=== PATIENT | male | born 1990 | race Caucasian/White ===

== ENCOUNTER → 2020-10-19 10:55 | Outpatient (BNVA) | payer OTHER, SELFPAY | PROVIDERS: Family Provider Nurse Practitioner; PCP Nurse Practitioner; Visit Provider Nurse Practitioner | DX: S49.90XA Unspecified injury of shoulder and upper arm, unspecified arm, initial encounter (principal); X58.XXXA Exposure to other specified factors, initial encounter | CPT/HCPCS: 73030 ==

== ENCOUNTER → 2021-12-01 09:11 | Outpatient (BNVA) | payer OTHER, SELFPAY | PROVIDERS: Family Provider Nurse Practitioner; PCP Nurse Practitioner; Visit Provider Nurse Practitioner Family | DX: Z20.822 Contact with and (suspected) exposure to COVID-19 (principal); I10 Essential (primary) hypertension | CPT/HCPCS: 87635 ==

== ENCOUNTER 2022-03-26 11:56 | Emergency (ER) | payer MEDICAID, SELFPAY ==
[2022-03-26 12:31] VITALS: BP 148/99; PULSE 104; RESP 16; TEMP 36.6; O2SAT 98
--- NOTE | 2022-03-26 12:38 | ED_ITS ---
HPI - Back Pain/Injury General: Chief Complaint: Back Pain/Injury Stated Complaint: Lower Back Pain Time Seen by Provider: 03/26/22 12:37 Source: patient Mode of arrival: ambulatory Limitations: no limitations History of Present Illness: Patient is a 31-year-old male who presents to ED today with a complaint of lower back pain over the past 3 days after he states he was lifting something heavy and was using improper technique. Patient has a history of chronic lower back pains and has underwent two previous surgeries in his 20s. Patient states his pain currently is radiating down his left buttock and down into his left lower extremity. Patient denies saddle anesthesia. He is not having any complaints of urinary or bowel retention/incontinence. MD elicited complaint: back pain Pertinent past history: prior back pain Onset (ago): day(s) Timing: constant Severity: severe Pain scale (0-10): 10 Similar Symptoms Previously: Yes Quality: sharp and aching Location: lumbar spine and left lower back Radiation: left leg below the knee Exacerbating factors: movement, walking and lifting Relieving factors: none Context: while lifting Associated symptoms: Reports no associated symptoms; Deny abdominal pain, chills, dysuria, fatigue, fever(s) or hematuria Work related injury: No Review of Systems Const: Denies: fever(s), chills, body aches, fatigue or malaise Card: Denies: chest pain Resp: Denies: dyspnea GI: Denies: abdominal pain : Denies: flank pain, dysuria or hematuria Musc: Reports: back pain; Denies: neck pain, extremity pain, extremity swelling, joint pain, joint swelling or joint redness Skin/Breast: Denies: rash Neuro: Denies: headache(s), numbness in extremities or sensory changes [facility] ED PFSH: Medical History Psychiatric care Type 1 diabetes Family History Other Hypertension Social History Smoking and tobacco status: current every day smoker Current occupation: [employer] Physical Exam Const: COMMON NORMALS: no acute distress, patient oriented x3, no limitations and alert GENERAL APPEARANCE: cooperative ORIENTATION/CONSCIOUSNESS: Yes awake, Yes oriented to person, Yes oriented to place and Yes oriented to time : COMMON NORMALS: Yes no CVA tenderness BLADDER/KIDNEY EXAM: Yes no CVA tenderness Back/Pelvis: COMMON NORMALS: no CVA tenderness THORACIC SPINE/UPPER BACK: Yes normal to inspection, Yes thoracic ROM normal, No thoracic spinal tenderness, No paraspinal muscle tenderness and No paraspinal muscle spasm LUMBAR SPINE/LOWER BACK: Yes normal to inspection, Yes ROM limited, No lumbar spinal tenderness, Yes paraspinal muscle tenderness Lumbar paraspinal muscle tenderness: left and No paraspinal muscle spasm PELVIS: Yes buttock abnormal Buttock abnormal laterality: left Left buttock abnormal details: tenderness and Yes sciatic notch tenderness SACROILIAC JOINTS: Yes SI joint(s) abnormal SI joint details: tender to palpation (left) SACRUM: no tenderness COCCYX: no tenderness Extremity: COMMON NORMALS: normal to inspection, full ROM, capillary refill normal, no joint enlargement, no clubbing, cyanosis or edema, no calf tenderness and no pedal edema GENERAL: Yes normal exam except as noted Neuro: COMMON NORMALS: patient oriented x3, moves all extremities, no focal motor deficits, no sensory deficits noted and gait normal SENSORIUM/ORIENTATION: Yes alert, Yes oriented to person, Yes oriented to place and Yes oriented to time MOTOR EXAM: 5/5 motor strength present throughout Skin: COMMON NORMALS: no rashes or lesions noted GENERAL SKIN EXAM: no rashes or lesions noted Course Vital Signs: Vital signs: Vital Signs Temperature 97.8 F 03/26/22 12:31 Pulse Rate 104 H 03/26/22 12:31 Respiratory Rate 16 03/26/22 12:31 Blood Pressure 148/99 03/26/22 12:31 Pulse Oximetry 98 03/26/22 12:31 MDM - Back Pain/Injury Medical Decision Making Patient states he does feel much better after IM medications given here. We will place him on anti-inflammatories, muscle relaxers, steroids. Recommend he follow-up with primary care for further evaluation of his lower back pain if it does not begin to improve over the next week or so. Return to ED precautions verbally discussed with patient. Labs Radiology Impressions Lumbar Spine X-Ray 03/26/22 13:34 IMPRESSION: No acute findings. Moderate multilevel endplate degenerative changes and degenerative disc disease centered in the mid and lower lumbar spine. Discharge Plan Discharge Patient Disposition: Home Clinical Impression: Lower back injury Qualifiers: Encounter type: initial encounter Qualified Code(s): S39.92XA - Unspecified injury of lower back, initial encounter Condition: Stable Prescriptions: New methocarbamol 500 mg tablet 1,000 mg PO Q8H Qty: 30 0RF prednisone 10 mg tablet 60 mg PO DAILY 5 Days Qty: 30 0RF diclofenac sodium 50 mg tablet,delayed release (DR/EC) 50 mg PO Q12H PRN (Reason: pain) Qty: 20 0RF No Action levemi INJECTION 0RF Rx Instructions: 20 units BID novol INJECTION 0RF Rx Instructions: 6 units TID (DME) Dexcom G6 Timber Spotter Misc See Rx Instructions .Route Qty: 1 0RF Rx Instructions: Check BS 4-6 times a day. (DME) Dexcom G6 Sensor Device See Rx Instructions .Route Qty: 3 3RF Rx Instructions: Change every 10 days. (DME) Dexcom G6 Transmitter Device See Rx Instructions .Route Qty: 1 3RF Rx Instructions: Change every 90 days. (DME) Omnipod 5 G6 Intro Kit (Gen 5) Cartridge See Rx Instructions .ROUTE Qty: 1 0RF Rx Instructions: As directed (DME) Omnipod 5 G6 Pods (Gen 5) Cartridge See Rx Instructions .ROUTE Qty: 5 3RF Rx Instructions: As directed Discharge Orders: Discharge ED (Routine); Ordered 03/26/22 Ordered By: Mel Baltazar Referrals: Jyoti Shirley VINYL WELDER AND FABRICATOR [Primary Care Provider] - Coding Level of Care Code ED Scientific Photographer for Bessie Gaxiola
--- NOTE | 2022-03-26 13:34 | XRR_ITS ---
PROCEDURE INFORMATION: Exam: XR Lumbosacral Spine Exam date and time: 03/26/2022 1:59 PM Age: 31 years old Clinical indication: Pain and injury or trauma; Other: Lifting; Sprain or strain, lumbar ligaments; Low back pain; Prior surgery; Surgery type: Prev back surgery; Additional info: Back pain/injury TECHNIQUE: Imaging protocol: XR of the lumbosacral spine. Views: 2 or 3 views. COMPARISON: CR Lumbar Spine 1v PORT [id number] 12/29/2015 8:15 AM FINDINGS: Bones/joints: No acute fracture. Normal alignment. Moderate multilevel endplate degenerative changes and degenerative disc disease involving the L3-S1 segment. Soft tissues: Unremarkable. XR/XR lumbar spine 2-3V* [id number] IMPRESSION: No acute findings. Moderate multilevel endplate degenerative changes and degenerative disc disease centered in the mid and lower lumbar spine.
[2022-03-26] MEDS: dexamethasone 10 mg/mL INJ 8 MG IM (14:00)
[2022-03-26] MEDS: orphenadrine 30 mg/mL Inj 2 mL 60 MG IM (14:00)
[2022-03-26] MEDS: ketorolac 60 mg/2 mL INJ IM (14:00)
[2022-03-26 15:18] VITALS: BP 176/118; PULSE 101; O2SAT 96
== END 2022-03-26 15:15 | disposition home or self-care (01) ==
PROVIDERS: Emergency Provider Physician Assistant; PCP Nurse Practitioner
DX: S39.92XA Unspecified injury of lower back, initial encounter (principal); X50.0XXA Overexertion from strenuous movement or load, initial encounter
CPT/HCPCS: 72100; 96372; 99284; J1100; J1885; J2360

== ENCOUNTER 2022-06-26 09:18 | Emergency (ER) | payer MEDICAID, SELFPAY ==
[2022-06-26 09:22] VITALS: BP 152/102; PULSE 96; RESP 18; TEMP 36.4; O2SAT 97
--- NOTE | 2022-06-26 09:48 | ED.C_ITS ---
Documented by User: ZURDO Santos 06/26/22 11:04 HPI - Psych General: Chief Complaint: Psychiatric Symptoms Stated Complaint: Back pain Time Seen by Provider: 06/26/22 09:24 History of Present Illness: Patient is a 31-year-old male comes to the ED via EMS with back pain after fall. Patient has chronic lower back problems and is set up to see an orthospine specialist in [place] in the next month. Injury occurred this morning while he was getting out of bathtub. He states that he slipped and fell backwards hitting his lower back on tub. Denies any head trauma or loss of consciousness. He states his pain is a 7 out of 10 in his lower back and it radiates down to his left leg. Denies any bladder or bowel incontinence, pelvic anesthesia or any weakness to lower extremities. Patient screened positive for SI during triage. Patient says he is not currently suicidal at all and is having no thoughts of suicide. He states that in triage they asked if he has ever had thoughts of suicide and he answered yes because in the past he has had thoughts but says he is not having any recent or current thoughts of suicide or plan for suicide. Associated symptoms: Deny suicidal ideation Review of Systems Const: Denies: fever(s), chills or fatigue Eyes: Denies: change in vision or eye discomfort ENMT: Denies: throat pain, odynophagia, nasal discharge or nasal congestion Card: Denies: chest pain, palpitations, edema, swelling of feet/ankles, dyspnea on exertion or orthopnea Resp: Denies: dyspnea, productive cough or non-productive cough GI: Denies: abdominal pain, nausea, vomiting, diarrhea, constipation or hematochezia : Denies: flank pain, difficulty urinating, dysuria or hematuria Musc: Reports: back pain; Denies: neck pain or extremity swelling Skin/Breast: Denies: rash or new lesions Neuro: Denies: headache(s), numbness in extremities or weakness in extremities Psych: Denies: suicidal ideation PFS ED PFSH: Medical History No pertinent family history Psychiatric care Type 1 diabetes Family History Other Hypertension Social History Smoking and tobacco status: current every day smoker Current occupation: [employer] Physical Exam Const: COMMON NORMALS: no acute distress, patient oriented x3 and alert HENMT: COMMON NORMALS: normocephalic HEAD & SCALP: normocephalic MOUTH: Normal oral and palatal mucosa present THROAT: posterior oropharynx normal and uvula midline Neck/C-Spine: COMMON NORMALS: supple GENERAL: Yes normal visual inspection Resp: COMMON NORMALS: normal respiratory effort, No retractions, No use of accessory muscles and clear to auscultation bilaterally AUSCULTATION: clear to auscultation bilaterally Cardio: COMMON NORMALS: regular rate, regular rhythm, S1 normal heart sound present, S2 normal heart sound present, No gallops present (Cardio), No clicks present (Cardio), No murmurs present (Cardio) and Peripheral pulses 2+ throughout RATE: regular rate RHYTHM: regular rhythm HEART SOUNDS: S1 normal heart sound present and S2 normal heart sound present PERIPHERAL PULSES: Peripheral pulses 2+ throughout GI: COMMON NORMALS: Normal to inspection, nondistended, normoactive bowel sounds present, Soft to palpation, non-tender and no masses PALPATION: Yes Soft to palpation : COMMON NORMALS: Yes no CVA tenderness BLADDER/KIDNEY EXAM: Yes no CVA tenderness Back/Pelvis: COMMON NORMALS: no CVA tenderness LUMBAR SPINE/LOWER BACK: Yes lumbar ROM normal, No lumbar spinal tenderness and Yes paraspinal muscle tenderness Lumbar paraspinal muscle tenderness: bilateral Bilateral lumbar paraspinal muscle tenderness: L3, L4 and L5 Extremity: COMMON NORMALS: normal to inspection Neuro: COMMON NORMALS: patient oriented x3 SENSORIUM/ORIENTATION: Yes alert GAIT: Yes Normal gait present Skin: GENERAL SKIN EXAM: dry skin Course ED course: Patient screened positive for SI during triage. Patient says he is not currently suicidal at all and is having no thoughts of suicide. He states that in triage they asked if he has ever had thoughts of suicide and he answered yes because in the past he has had thoughts but says he is not having any recent/current thoughts of suicide or plan for suicide. I reiterated with patient that we can help him if he is having any suicidal thoughts and he restated he is not having any suicidal thoughts or plan and is only here in the ED due to his back pain from fall. Vital Signs: Vital signs: Vital Signs Temperature 97.6 F 06/26/22 09:22 Pulse Rate 96 06/26/22 09:22 Respiratory Rate 18 06/26/22 09:22 Blood Pressure 152/102 06/26/22 09:22 Pulse Oximetry 97 06/26/22 09:22 [facility] - Psych Medical Decision Making Patient is a 31-year-old male comes to the ED with lower back pain after fall. Denies head trauma or loss of consciousness. Patient does endorse having chronic lower back pain and is scheduled to see an orthospine specialist in [place] in about a month. Pain radiates down into left leg. Denies any cauda equina symptoms. Vitals are stable. Patient had some paraspinal lumbar muscle tenderness bilaterally. Rest of exam is benign and patient appears in no acute distress. X-ray of lumbar spine showed no acute fractures or findings but noted some osteoarthritis. He was given a dose of Toradol, steroid and muscle relaxer here in the ED. Patient was stable for discharge home and diagnosed with lumbar radiculopathy and lower back injury due to fall. He was sent home with a prescription for Celebrex, muscle relaxer and short course of steroids. Told to monitor his blood sugars closely while taking steroids. Return ED precautions given. Patient understood and agreed with plan. Review course section of note to get further details on SI screening. Chart reviewed and patient discussed with midlevel. Agree with assessment and plan. Patient expressed to the nurse during screening that he has considered suicide in the past. In discussing with him he was answering the question honestly in respect to the span of essentially his entire adult life. He admits that he has considered in the past but he is never actually acted out on it nor does he have any intent at this time. He denies any suicidal thoughts or ideations recently and certainly not at this time. After interviewing the patient do not feel as he is a threat to himself or others he was just answering the questions honestly and has no current suicidal thoughts. Encouraged to return if he has any further problems. At this point he can be discharged by midlevel. Lab Data Radiology Impressions Lumbar Spine X-Ray 06/26/22 09:52 IMPRESSION: 1. Osteoarthritis 2. Otherwise No acute findings. Discharge Plan Discharge Patient Disposition: Home Clinical Impression: Lumbar radiculopathy, Back pain due to injury Condition: Stable Prescriptions: New Celebrex 100 mg capsule 100 mg PO BID PRN (Reason: pain) Qty: 20 0RF prednisone 20 mg tablet 20 mg PO BID 3 Days Qty: 6 0RF cyclobenzaprine 10 mg tablet 10 mg PO BID PRN (Reason: muscle spasm) Qty: 20 0RF No Action insulin aspart U-100 [Novolog U-100 Insulin aspart] 100 unit/mL solution 80 unit continuous IV infusion DAILY 90 Days Qty: 90 3RF (DME) Dexcom G6 Machine Setter And Repairer Misc See Rx Instructions .Route Qty: 1 0RF Rx Instructions: Check BS 4-6 times a day. (DME) Dexcom G6 Sensor Device See Rx Instructions .Route Qty: 3 3RF Rx Instructions: Change every 10 days. (DME) Dexcom G6 Transmitter Device See Rx Instructions .Route Qty: 1 3RF Rx Instructions: Change every 90 days. insulin aspart U-100 [Novolog Flexpen U-100 Insulin] 100 unit/mL (3 mL) insulin pen 6 unit SUBCUT TID Qty: 15 3RF Rx Instructions: Inject 6 units three times a day 15 minutes before meals. Levemir FlexTouch U-100 Insuln 100 unit/mL (3 mL) insulin pen 20 unit SUBCUT BID Qty: 30 3RF Rx Instructions: Inject 20 units twice a day. (DME) Omnipod 5 G6 Intro Kit (Gen 5) Cartridge See Rx Instructions .Route Qty: 1 0RF Rx Instructions: As directed (DME) Omnipod 5 G6 Pods (Gen 5) Cartridge See Rx Instructions .Route Qty: 5 3RF Rx Instructions: As directed methocarbamol 500 mg tablet 1,000 mg PO Q8H Qty: 30 0RF diclofenac sodium 50 mg tablet,delayed release (DR/EC) 50 mg PO Q12H PRN (Reason: pain) Qty: 20 0RF Discharge Orders: Discharge ED (Routine); Ordered 06/26/22 Ordered By: Jose Madden Referrals: Jyoti hSirley APN [Primary Care Provider] - Discharge Diet: Diabetic Discharge Activity: Increase activity as tolerated Patient Instructions: Lumbar Radiculopathy (ED) Activity Restrictions/Additional Instructions: Follow-up with the orthospine specialist you are scheduled to see in [place] next month. Take medications as prescribed. I am sending you out on a short course of prednisone which is a steroid and it can increase your blood sugars so monitor them closely while taking prednisone. You were given a steroid shot today here in the ED so you do not need to start taking the prednisone prescription until tomorrow. Rest, limit lifting and apply cold pack on lower back to help with symptoms. Return to the ER or your medical provider if condition worsens. Please read and understand discharge instructions. Thank you for choosing [facility] for your healthcare needs today. Please realize this is an emergency room and that we are providing you with a medical screening exam and this may not be complete and all inclusive of all the testing and or work up that you may need to determine your ailment or severity of your illness. It is very important that you follow up as instructed or that you return to the Emergency Department should you have concerns or if your condition changes or worsens in any way. 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 Agree with assessment and plan. Patient expressed to the nurse during screening that he has considered suicide in the past. In discussing with him he was answering the question honestly in respect to the span of essentially his entire adult life. He admits that he has considered in the past but he is never actually acted out on it nor does he have any intent at this time. He denies any suicidal thoughts or ideations recently and certainly not at this time. After interviewing the patient do not feel as he is a threat to himself or others he was just answering the questions honestly and has no current suicidal thoughts. Encouraged to return if he has any further problems. At this point he can be discharged by midlevel. Medical Records I reviewed the patient's medical records. Lab Data I reviewed the patient's lab results. Radiology Impressions Lumbar Spine X-Ray 06/26/22 09:52 IMPRESSION: 1. Osteoarthritis 2. Otherwise No acute findings. Discharge Plan Discharge Patient Disposition: Home Clinical Impression: Lumbar radiculopathy, Back pain due to injury Condition: Stable Prescriptions: New Celebrex 100 mg capsule 100 mg PO BID PRN (Reason: pain) Qty: 20 0RF prednisone 20 mg tablet 20 mg PO BID 3 Days Qty: 6 0RF cyclobenzaprine 10 mg tablet 10 mg PO BID PRN (Reason: muscle spasm) Qty: 20 0RF No Action insulin aspart U-100 [Novolog U-100 Insulin aspart] 100 unit/mL solution 80 unit continuous IV infusion DAILY 90 Days Qty: 90 3RF (DME) Dexcom G6 Machine Setter And Repairer Misc See Rx Instructions .Route Qty: 1 0RF Rx Instructions: Check BS 4-6 times a day. (DME) Dexcom G6 Sensor Device See Rx Instructions .Route Qty: 3 3RF Rx Instructions: Change every 10 days. (DME) Dexcom G6 Transmitter Device See Rx Instructions .Route Qty: 1 3RF Rx Instructions: Change every 90 days. insulin aspart U-100 [Novolog Flexpen U-100 Insulin] 100 unit/mL (3 mL) insulin pen 6 unit SUBCUT TID Qty: 15 3RF Rx Instructions: Inject 6 units three times a day 15 minutes before meals. Levemir FlexTouch U-100 Insuln 100 unit/mL (3 mL) insulin pen 20 unit SUBCUT BID Qty: 30 3RF Rx Instructions: Inject 20 units twice a day. (DME) Omnipod 5 G6 Intro Kit (Gen 5) Cartridge See Rx Instructions .Route Qty: 1 0RF Rx Instructions: As directed (DME) Omnipod 5 G6 Pods (Gen 5) Cartridge See Rx Instructions .Route Qty: 5 3RF Rx Instructions: As directed methocarbamol 500 mg tablet 1,000 mg PO Q8H Qty: 30 0RF diclofenac sodium 50 mg tablet,delayed release (DR/EC) 50 mg PO Q12H PRN (Reason: pain) Qty: 20 0RF Discharge Orders: Discharge ED (Routine); Ordered 06/26/22 Ordered By: Jose Madden Referrals: Jyoti Shirley TECHNICAL SUPPORT AGENT [Primary Care Provider] - Discharge Diet: Diabetic Discharge Activity: Increase activity as tolerated Patient Instructions: Lumbar Radiculopathy (ED) Activity Restrictions/Additional Instructions: Follow-up with the orthospine specialist you are scheduled to see in [place] next month. Take medications as prescribed. I am sending you out on a short course of prednisone which is a steroid and it can increase your blood sugars so monitor them closely while taking prednisone. You were given a steroid shot today here in the ED so you do not need to start taking the prednisone prescription until tomorrow. Rest, limit lifting and apply cold pack on lower back to help with symptoms. Return to the ER or your medical provider if condition worsens. Please read and understand discharge instructions. Thank you for choosing [facility] for your healthcare needs today. Please realize this is an emergency room and that we are providing you with a medical screening exam and this may not be complete and all inclusive of all the testing and or work up that you may need to determine your ailment or severity of your illness. It is very important that you follow up as instructed or that you return to the Emergency Department should you have concerns or if your condition changes or worsens in any way. Coding Level of Care Code ED Director Learning for Bessie Gaxiola Exam Comprehensive
--- NOTE | 2022-06-26 09:52 | XRR_ITS ---
PROCEDURE INFORMATION: Exam: XR Lumbosacral Spine Exam date and time: 06/26/2022 9:55 AM Age: 31 years old Clinical indication: Injury or trauma; Fall; Blunt trauma (contusions or hematomas); Additional info: Fall in bathtub. Low back pain TECHNIQUE: Imaging protocol: Radiologic exam of the lumbosacral spine. Views: 2 or 3 views. COMPARISON: CR XR lumbar spine 2-3V* [id number] 03/26/2022 1:59 PM FINDINGS: Bones/joints: There is intervertebral disc space narrowing at C4-C5 and 3 4 intervertebral disc space levels consistent with osteoarthritis. No acute bony abnormalities seen. No acute fracture. Normal alignment. Soft tissues: Unremarkable. XR/XR lumbar spine 2-3V* [id number] IMPRESSION: 1. Osteoarthritis 2. Otherwise No acute findings.
[2022-06-26] MEDS: ketorolac 30 mg/mL INJ IVP (10:37)
[2022-06-26] MEDS: orphenadrine 30 mg/mL Inj 2 mL 60 MG IVP (10:37)
== END 2022-06-26 10:50 | disposition home or self-care (01) ==
PROVIDERS: Emergency Provider Family Medicine; PCP Nurse Practitioner
DX: M54.16 Radiculopathy, lumbar region (principal); S39.92XA Unspecified injury of lower back, initial encounter; Z79.4 Long term (current) use of insulin; E10.9 Type 1 diabetes mellitus without complications; F17.210 Nicotine dependence, cigarettes, uncomplicated; W18.2XXA Fall in (into) shower or empty bathtub, initial encounter
CPT/HCPCS: 72100; 96374; 96375; 99284; J1885; J2360; J2930

== ENCOUNTER 2022-07-25 09:34 | Emergency (ER) | payer MEDICAID, SELFPAY ==
[2022-07-25 10:15] VITALS: BP 158/93; PULSE 91; RESP 18; TEMP 36.6; O2SAT 98; BMI 31.1
[2022-07-25 10:33] VITALS: BP 158/93; PULSE 91; RESP 18; TEMP 36.6; O2SAT 98
--- NOTE | 2022-07-25 10:56 | ED_ITS ---
HPI - Back Pain/Injury General: Chief Complaint: Back Pain/Injury Stated Complaint: back pain Time Seen by Provider: 07/25/22 10:21 History of Present Illness: Patient is a 31-year-old male who comes to the ED with acute on chronic lower back pain. Past medical history of type I diabetes. Patient says he was referred to an orthospine specialist in [facility] but was unable to make it to appointment because he could not get a ride. He would like a referral to a local orthospine specialist for follow-up. The has been seen here in the ED back on June 26 for same complaint. He is also been to urgent care as well within the last month for same complaint. Back pain is located in the lumbar region and he rates it currently an 8 out of 10. Pain radiates down his left leg. Denies any recent falls, traumas or injuries to cause acute pain. Denies any cauda equina symptoms. Associated symptoms: Deny abdominal pain, chills, dysuria, fatigue, fever(s), hematuria, nausea or vomiting Review of Systems Const: Denies: fever(s), chills or fatigue Eyes: Denies: change in vision or eye discomfort ENMT: Denies: throat pain, odynophagia, nasal discharge or nasal congestion Card: Denies: chest pain, palpitations, edema, swelling of feet/ankles, dyspnea on exertion or orthopnea Resp: Denies: dyspnea, productive cough or non-productive cough GI: Denies: abdominal pain, nausea, vomiting, diarrhea, constipation or hematochezia : Denies: flank pain, difficulty urinating, dysuria or hematuria Musc: Reports: back pain; Denies: neck pain or extremity swelling Skin/Breast: Denies: rash or new lesions Neuro: Denies: headache(s), numbness in extremities or weakness in extremities PFSH ED PFSH: Medical History No pertinent family history Type 1 diabetes Family History Other Hypertension Social History Smoking and tobacco status: current every day smoker 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 Physical Exam Const: COMMON NORMALS: patient oriented x3 HENMT: COMMON NORMALS: normocephalic HEAD & SCALP: normocephalic MOUTH: Normal oral and palatal mucosa present THROAT: posterior oropharynx normal and uvula midline Neck/C-Spine: COMMON NORMALS: supple GENERAL: Yes normal visual inspection Resp: COMMON NORMALS: normal respiratory effort, No retractions, No use of accessory muscles and clear to auscultation bilaterally AUSCULTATION: clear to auscultation bilaterally Cardio: COMMON NORMALS: regular rate, regular rhythm, S1 normal heart sound present, S2 normal heart sound present, No gallops present (Cardio), No clicks present (Cardio), No murmurs present (Cardio) and Peripheral pulses 2+ t hroughout RATE: regular rate RHYTHM: regular rhythm HEART SOUNDS: S1 normal heart sound present and S2 normal heart sound present PERIPHERAL PULSES: Peripheral pulses 2+ throughout GI: COMMON NORMALS: Normal to inspection, nondistended, normoactive bowel sounds present, Soft to palpation, non-tender and no masses PALPATION: Yes Soft to palpation : COMMON NORMALS: Yes no CVA tenderness BLADDER/KIDNEY EXAM: Yes no CVA tenderness Back/Pelvis: COMMON NORMALS: no CVA tenderness LUMBAR SPINE/LOWER BACK: Yes paraspinal muscle tenderness Extremity: COMMON NORMALS: normal to inspection Neuro: COMMON NORMALS: patient oriented x3 GAIT: Yes Normal gait present Skin: GENERAL SKIN EXAM: dry skin Course Vital Signs: Vital signs: Vital Signs Temperature 97.8 F 07/25/22 10:33 Pulse Rate 91 07/25/22 10:33 Respiratory Rate 18 07/25/22 10:33 Blood Pressure 158/93 07/25/22 10:33 Pulse Oximetry 98 07/25/22 10:33 Oxygen Delivery Me thod 07/25/22 10:33 MDM - Back Pain/Injury Medical Decision Making Patient is a 31-year-old male comes to the ED with acute on chronic lower back pain. Denies any recent injury or trauma to cause acute pain. Denies cauda equina symptoms. Pain does radiate down into left leg. Vitals are stable. Exam of patient shows some lumbar paraspinal muscle tenderness bilaterally. Rest of exam is benign. I have placed an order with case management for patient be referred to Dr. Alba for further evaluation and management of low back pain. He was given a dose of a muscle relaxer, pain meds and steroid shot here in the ED. He was stable for discharge home and told to follow-up at his scheduled appointment with Dr. Alba. Discharge Plan Discharge Patient Disposition: Home Clinical Impression: Back pain with radiculopathy Condition: Stable Prescriptions: No Action propranolol 10 mg tablet 10 mg PO BID (DME) Omnipod 5 G6 Pods (Gen 5) Cartridge See Rx Instructions .Route Qty: 5 3RF Rx Instructions: As directed insulin aspart U-100 [Novolog Flexpen U-100 Insulin] 100 unit/mL (3 mL) insulin pen 6 unit SUBCUT TID Qty: 15 3RF Rx Instructions: Inject 6 units three times a day 15 minutes before meals. (DME) Dexcom G6 Transmitter Device See Rx Instructions .Route Qty: 1 3RF Rx Instructions: Change every 90 days. (DME) Dexcom G6 Sensor Device See Rx Instructions .Route Qty: 3 3RF Rx Instructions: Change every 10 days. (DME) Dexcom G6 Hospital Liaison Misc See Rx Instructions .Route Qty: 1 0RF Rx Instructions: Check BS 4-6 times a day. lisinopril 20 mg tablet 20 mg PO DAILY varenicline 0.5 mg tablet 0.5 mg PO DAILY Rx Instructions: administer on days 1, 2, and 3 of therapy mirtazapine 30 mg tablet 60 mg PO DAILY baclofen 10 mg tablet 10 mg PO TID PRN ibuprofen 600 mg tablet 600 mg PO TID PRN (Reason: pain) Qty: 30 0RF prednisone 20 mg tablet 60 mg PO DAILY 5 Days Qty: 15 0RF (DME) Omnipod 5 G6 Intro Kit (Gen 5) Cartridge See Rx Instructions .Route Qty: 1 0RF Rx Instructions: As directed insulin aspart U-100 [Novolog U-100 Insulin aspart] 100 unit/mL solution 80 unit SUBCUT DAILY 90 Days Qty: 90 3RF Rx Instructions: via pump Discharge Orders: Discharge ED (Routine); Ordered 07/25/22 Ordered By: Jose Madden Referrals: Jason Ariza FNP [Primary Care Provider] - Discharge Diet: Regular Discharge Activity: Increase activity as tolerated Patient Instructions: Opioid Safety Activity Restrictions/Additional Instructions: Follow-up with medical provider as directed. Case management should contact you in the next several days set up an appointment with Dr. Alba the orthospine specialist. Take medications as prescribed. Return to the ER or your medical provider if condition worsens. Please read and understand discharge instructions. Thank you for choosing [facility] for your healthcare needs today. Please realize this is an emergency room and that we are providing you with a medical screening exam and this may not be complete and all inclusive of all the testing and or work up that you may need to determine your ailment or severity of your illness. It is very important that you follow up as instructed or that you return to the Emergency Department should you have concerns or if your condition changes or worsens in any way. Coding Level of Care Code ED Latcher for Bessie Fwd Exam Comprehensive
[2022-07-25] MEDS: dexamethasone 10 mg/mL INJ IM (11:10)
[2022-07-25] MEDS: morphine 4 mg/mL SDV 1 mL IM (11:10)
[2022-07-25] MEDS: orphenadrine 30 mg/mL Inj 2 mL 60 MG IM (11:11)
--- NOTE | 2022-07-25 11:55 | DCPLANNER ---
Addendum entered by Chel Yoder 08/02/22 11:36: Patient had a follow up appointment scheduled for 07.31.[address] Alba at ortho - patient did attend appointment. Original Note: life enrichment manager had message to schedule a follow up appointment for patient with ortho. life enrichment manager sent patients information to the front office staff at ortho. Patients information will be printed and reviewed. Clinic will call patient with appointment information.
== END 2022-07-25 11:49 | disposition home or self-care (01) ==
PROVIDERS: Emergency Provider Physician Assistant; PCP Nurse Practitioner Family
DX: M54.10 Radiculopathy, site unspecified (principal); E10.9 Type 1 diabetes mellitus without complications; F17.210 Nicotine dependence, cigarettes, uncomplicated; Z79.4 Long term (current) use of insulin
CPT/HCPCS: 96372; 99284; J1100; J2270; J2360

== ENCOUNTER 2022-08-27 16:50 | Inpatient (IN) | payer MEDICAID, SELFPAY ==
[2022-08-20 12:26] VITALS: BMI 31.8
--- NOTE | 2022-08-20 12:46 | P.ANESASSM_ITS ---
Pre-Anesthetic Assessment Height/Weight: Height 1.83 m Weight 106.594 kg Operation Date: 08/27/22 09:30 Proposed Procedures p PLIF L3-S1 [id number]/M54.10(Not Applicable) - Miquel Alba DO Familial anesthetic complications: none Was Beta Nickie taken within 24 hours: Yes Was Clonidine taken within 24 hours: N/A Social No alcohol and No tobacco Exam alert, oriented x 3, clear to auscultation bilaterally and regular rate & rhythm Airway Submandibular: within normal limits Cervical ROM: within normal limits Mallampati: Class II Dentition: chipped CV/HEM Hypertension Metabolic Diabetes Mellitus, Hyperlipidemia and Morbid Obesity Musc/skel Lower Back Pain Neuropsych Anxiety, Depression and Neuropathy Anesthetic Plan ASA status: 3 Anesthesia: General Medications/Allergies Home Medications Medication Instructions Recorded Confirmed Last Taken Type insulin pump cartridge,automated #1 ea 04/25/22 07/31/22 Unknown Rx dose,BT with controller subcutaneous (Omnipod 5 G6 Intro Kit (Gen 5) subcutaneous cartridge with controller) baclofen 10 mg tablet 10 mg PO TID PRN Spasms 07/11/22 08/20/22 Unknown History lisinopril 20 mg tablet 20 mg PO DAILY 07/11/22 08/20/22 Unknown History mirtazapine 30 mg tablet 60 mg PO DAILY 07/11/22 08/20/22 Unknown History prednisone 20 mg tablet 60 mg PO DAILY 5 days #15 tabs 07/11/22 08/20/22 Unknown Rx varenicline 0.5 mg tablet 0.5 mg PO DAILY 07/11/22 08/20/22 Unknown History propranolol 10 mg tablet 10 mg PO BID 07/17/22 08/20/22 Unknown History insulin pump cart,automated,BT #5 ea 07/18/22 07/31/22 Unknown Rx (Omnipod 5 G6 Pods (Gen 5) subcutaneous cartridge) blood-glucose meter,continuous #1 ea 07/20/22 07/31/22 Unknown Rx (Dexcom G6 Certified [employer] misc) blood-glucose sensor (Dexcom G6 #3 ea 07/20/22 07/31/22 Unknown Rx Sensor device) blood-glucose transmitter (Dexcom #1 ea 07/20/22 07/31/22 Unknown Rx G6 Transmitter device) tramadol 50 mg tablet 50 mg PO Q6H PRN pain 7 days #30 08/16/22 08/20/22 Unknown Rx tabs insulin aspart U-100 100 unit/mL 20 unit SUBCUT TID 08/20/22 08/20/22 Unknown History (3 mL) subcutaneous pen (Novolog Flexpen U-100 Insulin aspart) quetiapine 25 mg tablet (Seroquel) 25 mg PO DAILY 08/20/22 08/20/22 Unknown History Allergies Allergy/AdvReac Type Severity Reaction Status Date / Time No Known Allergies Allergy Verified 07/31/22 14:56 [facility] Anesthesia Medical History No pertinent family history Type 1 diabetes Family History Other Hypertension Social History Smoking and tobacco status: current every day smoker 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
[2022-08-27] VITALS (22 sets, daily range): BP systolic 113–186; BP diastolic 69–126; PULSE 79–101; RESP 12–18; TEMP 36.7–37.1; O2SAT 92–100; BMI 34.9
--- NOTE | 2022-08-27 | SCC_ITS ---
Procedure done: 1. L3.4 insterbody fusion with posterolateral fusion 2. L4/5 Interbody fusion with posterolateral fusion 3. L5/S1 Interbody fusion with posterolateral fusion 4. Instrumentation L3-S1 5. Cage at L3/4 6. Cage at L4/5 7. Cage at L5/S1 8. Laminectomy L3 with partial facetectomies L3/4 9. Laminectomy L4 with partial facetectomies L4/5 10. Laminectomy L5 with partial facetectomies L5/S1 11. use of autograft from same incision 12. allograft 13. Bone marrow aspirate from right iliac crest 14. Computer navigation / Stereotactic for spine 3 seconds of fluoroscopic guidance, for a cumulative dose of 53 mGy, was provided to Dr. Alba by the radiology department. C-arm images of the lumbar spine were saved for the patient's permanent record. [facility]
--- NOTE | 2022-08-27 | XR_ITS ---
WS: [id number] Exam: XR lumbar spine 2-3V* [id number] Date/Time of Exam: 08/27/2022 12:00 AM Reason For Exam: L3- pelvis fusion Intraoperative AP and lateral images of the lumbar spine are submitted for evaluation. Comparison to images 06/26/2022. There is interbody fusion from L3 to S1 with pedicle screws and posterior rods. Associated decompress ion laminectomy noted. Disc spacers at L3-4, L4-5 and L5-S1. The fusion is in satisfactory alignment. XR/XR lumbar spine 2-3V* [id number] IMPRESSION: 1. Stable-appearing interbody fusion from L3 to S1 as detailed above.
--- NOTE | 2022-08-27 10:30 | P.ANESUD_ITS ---
Pre-Anesthetic Update Pre-Anesthetic Assessment: Date of Surgery/Procedure: 08/27/22 Preop Lorraine gnosis: Low baack pain with Radiculopathy, Lumbar stenosis Proposed Procedure: Operation Date: 08/27/22 11:10 Proposed Procedures p PLIF L3-S1 [id number]/M54.10(Not Applicable) - Miquel Alba, DO Any changes to Pre-Anesthetic Assessment?: No Vitals: Temperature 98.8 F 08/27/22 10:10 Temperature Source Temporal Artery S can 08/27/22 10:10 Pulse Rate 92 08/27/22 10:10 Pulse Rhythm 08/27/22 10:25 Pulse Strength 3+ Normal 08/27/22 10:25 Respiratory Rate 18 08/27/22 10:10 Blood Pressure 186/126 08/27/22 10:10 Blood Pressure Trupti n 146 08/27/22 10:10 Pulse Oximetry 98 08/27/22 10:10 Oxygen Delivery Me thod 08/27/22 10:25 Exam: Pre-Anes Outpt Exam: alert, oriented x 3, clear to auscultation bilaterally and regular rate & rhythm Cardiac Studies: No Data to Display
--- NOTE | 2022-08-27 10:40 | W.PM.OPSUD ---
Surgery/Procedure H&P Update DATE OF PROCEDURE: August 27, 2022 DATE H&P PERFORMED: 07/31/22 H&P UPDATE INFORMATION: I have reviewed H&P completed within last 30 days, I have examined patient prior to procedure and No changes to prior documentation PREOP DIAGNOSIS: Low baack pain with Radiculopathy, Lumbar stenosis PLANNED PROCEDURE: Operation Date: 08/27/22 11:10 Proposed Procedures p PLIF L3-S1 [id number]/M54.10(Not Applicable) - Miquel Alba DO
[2022-08-27 10:59] LABS: Glucose Point of Care 293 mg/dL (70-110)
[2022-08-27 11:00] LABS: Basophils # 0.1 10^3/uL (0.0-0.1); Basophils % 0.5 %; Eosinophils # 0.1 10^3/uL (0.0-0.8); Eosinophils % 0.7 %; Hematocrit 40.8 % (42.0-52.0); Hemoglobin 14.4 g/dL (11.7-16.6); Lymphocytes % 17.8 %; Mean Corpuscular HGB Conc 35.3 g/dL (30.0-36.0); Mean Corpuscular Hemoglobin 32.4 pg (28.0-34.0); Mean Corpuscular Volume 91.9 fl (80-94); Mean Platelet Volume 10.1 fL (7.4-10.4); Monocytes # 0.8 10^3/uL (0.2-0.9); Monocytes % 7.3 %; Neutrophils # 8.01 10^3/uL (1.8-7.7); Neutrophils % 73.1 %; Nucleated Red Blood Cells % 0 %; Platelet Count 309 10^3/cmm (130-400); Red Blood Count 4.44 10^6/uL (4.1-5.3); Red Cell Distribution Width 12.6 % (12.1-15.1)
[2022-08-27] MEDS: insulin regular-human 100 units/1 mL 10 UNIT IVP ×2 (11:09→15:16)
[2022-08-27] MEDS: sodium chloride 0.9% 1,000 ML 30 ML IV (11:12)
[2022-08-27] MEDS: fentaNYL 50 mcg/mL INJ 2mL IVP ×3 (11:12→17:20)
[2022-08-27 11:14] LABS: Anion Gap 11.4 (5-19); Blood Urea Nitrogen 19 mg/dL (6-20); Calcium 9.1 mg/dL (8.5-10.5); Carbon Dioxide 25 mmol/L (22-29); Chloride 100 mmol/L (98-107); Glomerular Filtration Rate 112.8 mL/min (90-130); Glucose 287 mg/dL (65-115); Osmolality Calculated 287 mOsm/kg (285-295); Potassium 4.4 mmol/L (3.5-5.1); Sodium 132 mmol/L (136-145)
[2022-08-27] MEDS: ceFAZolin 2,000 MG in sodium chloride 0.9% (plus) 50 ML 100 MG IV ×3 (11:17→23:13)
[2022-08-27] MEDS: vancomycin 1,000 MG SDV 1000 MG XX (12:04)
[2022-08-27] MEDS: heparin, porcine 1,000 unit/mL INJ 10 mL 10000 UNIT IRRIGATION (12:04)
[2022-08-27 12:10] LABS: Glucose Point of Care 172 mg/dL (70-110)
--- NOTE | 2022-08-27 17:01 | PM.OP ---
Operative Report Date of procedure: August 27, 2022 Pre-op diagnosis: Preop Diagnosis Low baack pain with Radiculopathy, Lumbar stenosis Post-op diagnosis: same Procedure done: 1. L3.4 insterbody fusion with posterolateral fusion 2. L4/5 Interbody fusion with posterolateral fusion 3. L5/S1 Interbody fusion with posterolateral fusion 4. Instrumentation L3-S1 5. Cage at L3/4 6. Cage at L4/5 7. Cage at L5/S1 8. Laminectomy L3 with partial facetectomies L3/4 9. Laminectomy L4 with partial facetectomies L4/5 10. Laminectomy L5 with partial facetectomies L5/S1 11. use of autograft from same incision 12. allograft 13. Bone marrow aspirate from right iliac crest 14. Computer navigation / Stereotactic for spine Surgeon: Miquel Alba Managed Care Liaison: Tano Mcarthur Managed Care Liaison: The gallery assistant, Tano Mcarthur, PAC was needed for his expertise under the microscope. He was important and necessary throughout the procedure to complete in a safe and timely manner. He assisted with patient positioning prepping and draping tissue retraction suctioning of the operative field protection of the dural sac and tissue closure Estimated blood loss (mL): 300 Procedure: 1. L3.4 insterbody fusion with posterolateral fusion 2. L4/5 Interbody fusion with posterolateral fusion 3. L5/S1 Interbody fusion with posterolateral fusion 4. Instrumentation L3-S1 5. Cage at L3/4 6. Cage at L4/5 7. Cage at L5/S1 8. Laminectomy L3 with partial facetectomies L3/4 9. Laminectomy L4 with partial facetectomies L4/5 10. Laminectomy L5 with partial facetectomies L5/S1 11. use of autograft from same incision 12. allograft 13. Bone marrow aspirate from right iliac crest 14. Computer navigation / Stereotactic for spine Patient is brought to the operative suite. After undergoing anesthesia, the patient had neuro monitoring attached. Patient was then placed in the prone position on the Talon table. All areas of impingement were well-padded. Patient was then prepped and draped in the normal sterile fashion. Skin incision was then made over the L3 to S1 level. Subperiosteal dissection was made out to the transverse processes of L3, L4, L5 and S1 sacral ala. Next attention was brought to obtaining the bone marrow aspirate. The [employer] bone marrow aspirate kit was used to aspirate bone marrow aspirate from the right iliac crest. This was done by using the sharp probe to open up the bone. Aspiration was performed and then the blunt probe was then used to dissect down to through the bone tunnel. An aspirating well drawn back a millimeter approximately 20 cc of bone marrow aspirate was used. Admixed with the allograft and autograft bone that will be used. Was brought to placing the fiducial for using the computer navigation. 2 pins were placed into the right iliac crest. These pins were later be removed. The fiducial was attached to this. The C-arm was then brought in and spun around the patient. The information that was loaded in from the C-arm was loaded the computer and then this was used later for placing the pedicle screws. The technique for placing the pedicle screws was to use a drill followed by the gearshift probe linked to computer navigation. Followed by the ball probe to feel the superior inferior medial lateral huynh of the pedicles. Then placement of the screws using computer navigation. Was done at each pedicle. Screws were placed at L3 bilaterally, L4 bilaterally L5 bilaterally and S1 bilaterally. Next attention was brought to performing the laminectomy ofL5. This was done using the high-speed bur Kerrisons and curettes. Once the lamina was removed and then attention was brought to performing a partial facetectomy on the contralateral side. This was done again using the high-speed bur curettes and Kerrisons. The ligamentum flavum was taken down bilaterally from L5 to S1. Attention was then brought to the facet on the ipsilateral side. The facet was taken down. The S1 nerve was decompressed as it passed around the S1 pedicle. The laminectomy was done for purposes of decompressing the nerve as well as placement of the cage. The L5 nerve was identified as it traversed through the L5/S1 foramen. The thecal sac was identified and retracted. The L5/S1 disc base was identified. Using a knife the disc base was opened. And then sequential foreign were placed. The first shaver was a 6 and the last shaver was a 8. Using a pituitary and down going curette the endplates were scraped and disc material was removed from the space. Once adequate decompression of the disc base was felt to be had. Osteoamp sponge was packed into the anterior aspect of the disc base. Then a size 8 cage from [employer] was placed after packing osteoamp into the cage. While placing the cage the thecal sac and S1 nerve was protected. C arm was used to ensure that the cages placed in the appropriate position. Next attention was brought to performing the laminectomy ofL4. This was done using the high-speed bur Kerrisons and curettes. Once the lamina was removed and then attention was brought to performing a partial facetectomy on the contralateral side. This was done again using the high-speed bur curettes and Kerrisons. The ligamentum flavum was taken down bilaterally from L4 to L5. Attention was then brought to the facet on the ipsilateral side. The facet was taken down. The L5 nerve was decompressed as it passed around the L5 pedicle. The laminectomy was done for purposes of decompressing the nerve as well as placement of the cage. The L4 nerve was identified as it traversed through the L4/5 foramen. The thecal sac was identified and retracted. The L4/5 disc base was identified. Using a knife the disc base was opened. And then sequential foreign were placed. The first shaver was a 6 and the last shaver was a 7. Using a pituitary and down going curette the endplates were scraped and disc material was removed from the space. Once adequate decompression of the disc base was felt to be had. Osteoamp sponge was packed into the anterior aspect of the disc base. Then a size 7 cage from [employer] was placed after packing osteoamp into the cage. While placing the cage the thecal sac and L5 nerve was protected. C arm was used to ensure that the cages placed in the appropriate position. Next attention was brought to performing the laminectomy ofL3. This was done using the high-speed bur Kerrisons and curettes. Once the lamina was removed and then attention was brought to performing a partial facetectomy on the contralateral side. This was done again using the high-speed bur curettes and Kerrisons. The ligamentum flavum was taken down bilaterally from L3 to L4. Attention was then brought to the facet on the ipsilateral side. The facet was taken down. The L4 nerve was decompressed as it passed around the L4 pedicle. The laminectomy was done for purposes of decompressing the nerve as well as placement of the cage. The L3 nerve was identified as it traversed through the L3/4 foramen. The thecal sac was identified and retracted. The L3/4 disc base was identified. Using a knife the disc base was opened. And then sequential foreign were placed. The first shaver was a 6 and the last shaver was a 7. Using a pituitary and down going curette the endplates were scraped and disc material was removed from the space. Once adequate decompression of the disc base was felt to be had. Osteoamp sponge was packed into the anterior aspect of the disc base. Then a size 7 cage from [employer] was placed after packing osteoamp into the cage. While placing the cage the thecal sac and L[] nerve was protected. C arm was used to ensure that the cages placed in the appropriate position. There is symptomatic scar tissue located at each of these levels. Which was worked around. Attention was then brought to attaching the rods to the screws placed in the L3 bilaterally, L4 bilaterally, L5 bilaterally and S1 bilaterally. Caps were torqued into position. Locking the construct in place. Wound was copiously irrigated and then attention was brought to decorticating the facets and transverse processes laterally. Bone that was taken down from the lamina was used along with osteoamp fibers and sponges were packed into the lateral gutters along the facet joints. This was done bilaterally. Wound was then closed in a layered fashion starting with the thoracolumbar fascia. 0-vicryl was used the sub cutaneous tissue was closed with 2-0 vicryl and skin with 4-0 monocryl. Glue was then used to seal the skin and a steril dressing was applied. Patient was then placed in the supine position. The endotracheal tube was removed and patient was transferred to the PACU in stable condition.
[2022-08-27 17:06] LABS: Glucose Point of Care 208 mg/dL (70-110)
[2022-08-27 17:06] LABS: Glucose Point of Care 216 mg/dL (70-110)
[2022-08-27 17:06] LABS: Glucose Point of Care 241 mg/dL (70-110)
[2022-08-27 17:06] LABS: Glucose Point of Care 210 mg/dL (70-110)
--- NOTE | 2022-08-27 17:30 | ANE.PACU2 ---
Inpatient post-anesthesia follow up: Airway intact: Yes Vital signs: Temperature 98.1 F Pulse Rate 85 Respiratory Rate 17 Blood Pressure 184/94 Pulse Oximetry 97 Oxygen Delivery Me thod Room Air Oxygen Flow Rate 3 Fraction of Inspir ed Oxygen Hydration adequate: Yes Nausea and vomiting: No Pain level: 1 Mental status: Baseline
[2022-08-27 18:14] LABS: Iron 76 ug/dL (59-158); Percent Saturation 26.6 % (20-50); Total Iron Binding Capacity 285 mcg/dl; Unsaturated Iron Binding 209 ug/dL (112-347); Vitamin B12 491 pg/mL (232-1245)
[2022-08-27] MEDS: baclofen 10 mg Tablet PO (18:19)
[2022-08-27] MEDS: HYDROcodone-acetaminophen 5-325 mg Tablet PO ×2 (18:19→23:58)
[2022-08-27] MEDS: docusate sodium 100 mg Capsule PO (18:20)
[2022-08-27] MEDS: propranolol 20 mg Tablet 10 MG PO (18:20)
[2022-08-27] MEDS: cetylpyridinium Lozenge 1 EACH MUCOUS MEM (18:21)
[2022-08-27] MEDS: insulin lispro 100 unit/1 mL SUBCUT ×2 (18:21→21:54)
[2022-08-27] MEDS: lactated ringers 1,000 ML 90 ML IV (18:22)
[2022-08-27] MEDS: famotidine 20 mg/2 mL INJ IVP (18:22)
[2022-08-27] MEDS: insulin lispro 100 unit/1 mL 20 UNIT SUBCUT (18:33)
[2022-08-27 18:50] LABS: Urine Appearance Clear (CLEAR); Urine Color Yellow (Yellow); pH Urine 5 (5-7)
[2022-08-27 18:51] LABS: Add Urine Microscopic? YES; Bilirubin Urine Neg (Negative); Blood Urine 3+ (Negative); Glucose Urine UA 2+ (Normal); Ketones Urine Negative (Negative); Leukocyte Esterase Urine Negative (Negative); Nitrate Urine Negative (Negative); Protein Urine 2+ (Negative); Urobilinogen Urine Norm (Negative)
[2022-08-27 19:09] LABS: Bacteria Urine 4+ /hpf; RBC Urine 0-4 /hpf (0-2); Squamous Epithelial Cell Urine 0-4 /hpf (0-5); WBC Urine 0-4 /hpf (0-5)
[2022-08-27 19:10] LABS: Add Urine Culture? Yes
[2022-08-27] MEDS: morphine 4 mg/mL SDV 1 mL 2 MG IVP ×2 (19:12→22:04)
[2022-08-27] MEDS: ketorolac 30 mg/mL INJ IVP (20:29)
[2022-08-27 21:28] LABS: Glucose Point of Care 189 mg/dL (70-110)
[2022-08-28] VITALS (9 sets, daily range): BP systolic 153–184; BP diastolic 79–104; PULSE 85–101; RESP 16–18; TEMP 36.6–37.3; O2SAT 94–98
[2022-08-28] MEDS: morphine 4 mg/mL SDV 1 mL 2 MG IVP ×5 (01:05→22:45)
[2022-08-28 04:04] LABS: Folate Level 16.2 ng/mL (4.5-32.2)
[2022-08-28] MEDS: lactated ringers 1,000 ML 90 ML IV ×3 (04:14→20:12)
[2022-08-28] MEDS: TRAMadol 50 mg Tablet PO ×3 (04:14→17:43)
[2022-08-28 05:03] LABS: Basophils # 0.1 10^3/uL (0.0-0.1); Basophils % 0.4 %; Eosinophils # 0.1 10^3/uL (0.0-0.8); Eosinophils % 0.4 %; Hemoglobin 11.5 g/dL (11.7-16.6); Lymphocytes # 2.6 10^3/uL (0.8-4.8); Mean Corpuscular HGB Conc 33.8 g/dL (30.0-36.0); Mean Corpuscular Hemoglobin 31.9 pg (28.0-34.0); Mean Corpuscular Volume 94.4 fl (80-94); Mean Platelet Volume 10.4 fL (7.4-10.4); Monocytes # 1.3 10^3/uL (0.2-0.9); Monocytes % 10.7 %; Neutrophils # 8.23 10^3/uL (1.8-7.7); Neutrophils % 66.9 %; Nucleated Red Blood Cells % 0 %; Platelet Count 255 10^3/cmm (130-400); White Blood Count 12.3 10^3/uL (4.0-10.0)
[2022-08-28 05:12] LABS: Estmated Average Glucose 174; Hemoglobin A1C 7.7 % (4.0-6.0)
[2022-08-28] MEDS: ketorolac 30 mg/mL INJ IVP ×2 (05:24→13:41)
[2022-08-28] MEDS: famotidine 20 mg/2 mL INJ IVP ×2 (05:24→17:11)
[2022-08-28 05:30] LABS: Alanine Aminotransferase 19 U/L (0-41); Albumin Level 2.6 g/dL (3.5-5.2); Alkaline Phosphatase 49 U/L (40-130); Anion Gap 13.9 (5-19); Aspartate Amino Transferase 49 U/L (0-40); Blood Urea Nitrogen 23 mg/dL (6-20); Calcium 7.9 mg/dL (8.5-10.5); Carbon Dioxide 23 mmol/L (22-29); Chloride 103 mmol/L (98-107); Chol HDL Ratio 5.33 mg/dL (1.0-5.00); Cholesterol 176 mg/dL (0-200); Globulin 2.6 g/dL (1.3-4.6); Glomerular Filtration Rate 87.2 mL/min (90-130); Glucose 176 mg/dL (65-115); HDL Cholesterol 33 mg/dL (60-100); LDL Cholesterol Calculated 90 mg/dL (50-129); Osmolality Calculated 290 mOsm/kg (285-295); Potassium 3.9 mmol/L (3.5-5.1); Sodium 136 mmol/L (136-145); Total Bilirubin 0.4 mg/dL (0.15-1.2); Total Protein 5.2 g/dL (6.6-8.7); Triglycerides 263 mg/dL (0-150); VLDL Cholestrol Calculation 53 mg/dL (0-30)
[2022-08-28] MEDS: ceFAZolin 2,000 MG in sodium chloride 0.9% (plus) 50 ML 100 MG IV ×2 (06:13→15:10)
[2022-08-28 06:49] LABS: Glucose Point of Care 221 mg/dL (70-110)
--- NOTE | 2022-08-28 07:05 | P.PN_ITS ---
Subjective Subjective: POD 1 Patient experiencing nausea and vomiting this morning. Reports poor pain control. Denies chest pain shortness of breath or headaches. Reports numbness in his right leg. Vitals/I&O/Wt Last Vital Signs Temp 99.1 F 08/28/22 04:42 Pulse 97 08/28/22 04:42 Resp 18 08/28/22 04:42 BP 166/94 08/28/22 04:42 Pulse Ox 94 08/28/22 04:42 O2 Del Method 08/28/22 04:42 O2 Flow Rate 3 08/27/22 17:05 08/27/22 08/28/22 08/28/22 22:59 06:59 14:59 Intake Total 2090 / 2140 2328 / 4468 Output Total 1270 / 1270 1860 / 3130 Balance 820 / 870 468 / 1338 Weight last 48 hrs Weight 257 lb 9.6 oz Physical Exam Narrative: Patient presents alert and oriented x3 with a good general ap pearance normal mood and affect. Normal coordination normal stability. Mild tenderness around the incisional site with the incision appear to be clean and dry. Hemovac intact. No signs of erythema or drainage. No signs of infection. Patient denies any fevers or chills. 5/5 motor strength both lower extremities with negative straight leg raise bilaterally. Calves are supple no medial thigh tenderness. Pulses are 2+ at the dorsalis pedis and posterior tibial region. Good capillary refill throughout normal sensation light touch both lower extremities. Urinary Catheter Management: Trinh: Cath Placed During This Visit: yes Reason for Continuing Indwelling Catheter: Perioperative Use in Selected Surgeries Urinary Catheter Date of Insertion: 08/27/22 Urinary Catheter Time of Insertion: 11:57 Data 08/28/22 04:20 08/28/22 04:20 A&P Assessment and plan (1) Type 1 diabetes: Discussed with the nurses to give Zofran for his nausea and vomiting. We will place him on Ativan 1 mg IV every 8 as needed spasms and anxiety. We will discontinue the Trinh catheter after his physical therapy visit. Continue to watch his blood sugars closely is on insulin sliding scale. Take the vacuum off the Hemovac drain due to the 680 mL output from his Hemovac drain. Encouraged him to continue with incentive spirometer for pulmonary toilet lay flat to help compress the incisional area to help reduce excessive bleeding from his revision surgery. (2) Status post lumbar spinal fusion: Attestations Medical Necessity Statement*: dc tomorrow following better pain control Coding Level of Care Code Acute Forestry Supervisor for g Fwd Diagnoses Type 1 diabetes E10.9 Status post lumbar spinal fusion Z98.1
[2022-08-28] MEDS: ondansetron 2 mg/ML SDV 2 mL 4 MG IVP ×2 (07:06→20:11)
[2022-08-28 08:35] LABS: Glucose Point of Care 233 mg/dL (70-110)
[2022-08-28] MEDS: mirtazapine 30 mg Tablet 60 MG PO (09:11)
[2022-08-28] MEDS: propranolol 20 mg Tablet 10 MG PO (09:11)
[2022-08-28] MEDS: docusate sodium 100 mg Capsule PO ×2 (09:12→17:12)
[2022-08-28] MEDS: quetiapine 25 mg Tablet PO (09:13)
[2022-08-28] MEDS: lisinopril 20 mg Tablet PO ×2 (09:13→10:30)
[2022-08-28] MEDS: HYDROcodone-acetaminophen 5-325 mg Tablet PO ×3 (09:13→19:39)
[2022-08-28] MEDS: insulin lispro 100 unit/1 mL 20 UNIT SUBCUT (09:14)
[2022-08-28] MEDS: insulin lispro 100 unit/1 mL SUBCUT ×3 (09:15→17:13)
--- NOTE | 2022-08-28 10:14 | PM.CONSULT ---
Providers/Reason For Consult Consulting Physician/Specialty*: Dr. Fernandez/internal medicine Reason for Consult*: Medical comorbidities Requesting Physician: Dr. Alba Attending Physician: Miquel Alba DO Primary Care Provider: LAWANDA Garcia History of Present Illness History of Present Illness Hunter San is a 31 year old male with meth abuse, type 1 diabetes, uncontrolled hypertension with strong family history of CAD who is a [facility] resident underwent lumbar spinal fusion with orthopedic team on 08/27. Medicine was consulted for comanagement of medical comorbidities. As per patient he has recently started seeing endocrine office and has been using OmniPod. He has not used OmniPod for last 20 days as he ran out of the medications. He states he gets medication once a month and currently they are in a transition of setting up the OmniPod and insulin pump for him. Currently he is only taking up to 90 units of NovoLog at home. States blood sugars are usually not well controlled recently because he is in transition. States blood pressures have always been running high and mostly the numbers are running more than 170 systolic. He does not check his blood pressures at home. States he has a high family history of CAD and strokes. Denies of having any nausea, vomiting, headache. Review of Systems General: Reports: 10 or more systems reviewed and unremarkable except in HPI and below Const: Denies: fever(s), chills, body aches, change in appetite, change in weight, malaise, night sweats, diaphoresis, change in sleep pattern, daytime sleepiness or snoring Eyes: Denies: change in vision, blurry vision, photophobia, eye discomfort or eye discharge ENMT: Denies: throat pain, enlarged tonsils, hoarseness, mouth pain, oral sores, dry mouth, tinnitus, nasal congestion or post nasal drip Card: Denies: chest pain, palpitations, irregular heart rhythm, edema, swelling of feet/ankles, lightheadedness, syncope, pre-syncope, dyspnea on exertion, orthopnea, leg pain with exertion or acrocyanosis Resp: Denies: dyspnea, productive cough, non-productive cough, wheezing, stridor, pain on inspiration, change in phlegm color, hemoptysis or chest congestion GI: Denies: abdominal pain, nausea, vomiting, hematemesis, coffee ground emesis, dysphagia, heartburn, diarrhea, constipation, bloating, GI cramping, change in bowel habits, pain on defecation, hematochezia or melena : Denies: flank pain, difficulty urinating, dysuria, urinary frequency, urinary urgency, urinary hesitancy, urinary dribbling, difficulty starting urination, change in urine stream, nocturia or hematuria Musc: Denies: neck pain, back pain, extremity pain, joint pain, joint swelling, joint redness, joint stiffness or limited range of motion Neuro: Denies: headache(s), numbness in extremities, weakness in extremities, sensory changes, lack of coordination, difficulty walking, frequent falls, dizziness, vertigo, confusion, Slurred speech present, difficulty communicating thoughts or seizure-like activity Psych: Denies: anxiety, depression, mood swings, panic attacks, hopelessness or irritability Endo: Denies: polyuria, polydipsia, tired all the time, cold intolerance, excessive sweating, flushing or heat intolerance Antonio/Lymph: Denies: easy bruising or easy bleeding All/Imm: Denies: tongue swelling, facial swelling or acute wheezing Medications/Allergies Home Medications Medication Instructions Recorded Confirmed Last Taken Type insulin pump cartridge,automated #1 ea 04/25/22 08/28/22 Unknown Rx dose,BT with controller subcutaneous (Omnipod 5 G6 Intro Kit (Gen 5) subcutaneous cartridge with controller) baclofen 10 mg tablet 10 mg PO TID PRN Spasms 07/11/22 08/28/22 Unknown History lisinopril 20 mg tablet 40 mg PO DAILY 07/11/22 08/28/22 Unknown History insulin pump cart,automated,BT #5 ea 07/18/22 08/28/22 Unknown Rx (Omnipod 5 G6 Pods (Gen 5) subcutaneous cartridge) blood-glucose meter,continuous #1 ea 07/20/22 08/28/22 Unknown Rx (Dexcom G6 Basketball Player misc) blood-glucose sensor (Dexcom G6 #3 ea 07/20/22 08/28/22 Unknown Rx Sensor device) blood-glucose transmitter (Dexcom #1 ea 07/20/22 08/28/22 Unknown Rx G6 Transmitter device) tramadol 50 mg tablet 50 mg PO Q6H PRN pain 7 days #30 08/16/22 08/28/22 Unknown Rx tabs insulin aspart U-100 100 unit/mL See Rx Instructions .Route .COMPLEX 08/20/22 08/28/22 Unknown History (3 mL) subcutaneous pen (Novolog Flexpen U-100 Insulin aspart) Intraoperative Neuromonitoring #1 ea 08/22/22 08/28/22 Unknown Rx bupropion HCl 150 mg 24 hr tablet, 150 mg PO QAM 08/28/22 08/28/22 Unknown History extended release (Wellbutrin XL) mirtazapine 45 mg tablet 45 mg PO BEDTIME 08/28/22 08/28/22 Unknown History multivitamin 1 tab PO DAILY 08/28/22 08/28/22 Unknown History prazosin 2 mg capsule 4 mg PO BEDTIME 08/28/22 08/28/22 Unknown History propranolol 20 mg tablet 20 mg PO TID PRN unknown 08/28/22 08/28/22 Unknown History quetiapine 50 mg tablet (Seroquel) 100 mg PO BEDTIME PRN unknown 08/28/22 08/28/22 Unknown History varenicline 1 mg tablet (Chantix 1 mg PO BID 08/28/22 08/28/22 Unknown History Continuing Month Box) Allergies Allergy/AdvReac Type Severity Reaction Status Date / Time No Known Allergies Allergy Verified 07/31/22 14:56 Current Medications Generic Name Dose Route Start Last Admin Trade Name Freq PRN Reason Stop Dose Admin Hydrocodone Bitart/Acetaminophen 1 - 2 tab 08/27/22 16:47 08/28/22 09:13 Hydrocodone-Acetaminophen 5-325 Mg Tablet PO 2 tab Q4H PRN Administration MODERATE TO SEVERE PAIN Baclofen 10 mg 08/27/22 16:50 08/27/22 18:19 Baclofen 10 Mg Tablet PO 10 mg TID PRN Administration Spasms Docusate Sodium 100 mg 08/27/22 18:00 08/28/22 09:12 Docusate Sodium 100 Mg Capsule PO 100 mg BID LILI Administration Famotidine 20 mg 08/27/22 17:15 08/28/22 05:24 Famotidine 20 Mg/2 Ml Inj IVP 20 mg Q12H LILI Administration Lactated Ringer's 1,000 mls @ 90 mls/hr 08/27/22 17:00 08/28/22 04:14 Lactated Ringers IV 90 mls/hr .[id number] LILI Administration Cefazolin Sodium 2,000 mg/ 50 mls @ 100 mls/hr 08/27/22 23:00 08/28/22 06:56 Sodium Chloride IV 08/28/22 15:29 Infused Q8H [facility] Infusion Protocol Insulin Human Lispro 20 unit 08/27/22 18:00 08/28/22 09:14 Insulin Lispro 100 Unit/1 Ml SUBCUT 20 unit TIDWM LILI Administration Insulin Human Lispro 0 unit 08/27/22 18:00 08/28/22 09:15 Insulin Lispro 100 Unit/1 Ml SUBCUT 6 unit WM&BEDTIME [facility] Administration Protocol Insulin Human Lispro 20 unit 08/28/22 07:00 08/28/22 08:04 Insulin Lispro 100 Unit/1 Ml SUBCUT Not Given TIDAC [facility] Ketorolac Tromethamine 30 mg 08/27/22 16:47 08/28/22 05:24 Ketorolac 30 Mg/Ml Inj IVP 30 mg Q6H PRN Administration BREAKTHROUGH PAIN Lisinopril 20 mg 08/28/22 09:00 08/28/22 09:13 Lisinopril 20 Mg Tablet PO 20 mg DAILY [facility] Administration Mirtazapine 60 mg 08/28/22 09:00 08/28/22 09:11 Mirtazapine 30 Mg Tablet PO 60 mg DAILY [facility] Administration Morphine Sulfate 2 mg 08/27/22 16:47 08/28/22 07:06 Morphine 4 Mg/Ml Sdv 1 Ml IVP 2 mg Q1H PRN Administration SEVERE PAIN Non-Formulary Medication 0.5 mg 08/28/22 09:00 08/28/22 09:16 Varenicline PO Not Given DAILY [facility] Ondansetron HCl 4 mg 08/27/22 16:47 08/28/22 07:06 Ondansetron 2 Mg/Ml Sdv 2 Ml IVP 4 mg Q6H PRN Administration NAUSEA AND VOMITING Propranolol HCl 10 mg 08/27/22 18:00 08/28/22 09:11 Propranolol 20 Mg Tablet PO 10 mg BID [facility] Administration Quetiapine Fumarate 25 mg 08/28/22 09:00 08/28/22 09:13 Quetiapine 25 Mg Tablet PO 25 mg DAILY [facility] Administration Tramadol HCl 50 mg 08/27/22 16:50 08/28/22 04:14 Tramadol 50 Mg Tablet PO 50 mg Q6H PRN Administration pain PFSH Acute PFSH: Medical History (Updated 08/28/22 @ 14:00 by Humphrey Fernandez MD) Methamphetamine abuse Psychiatric care Type 1 diabetes Uncontrolled hypertension Family History (Updated 08/28/22 @ 14:00 by Humphrey Fernandez MD) Other CAD (coronary artery disease) Hypertension Stroke Social History (Updated 08/28/22 @ 14:00 by Humphrey Fernandez MD) Smoking and tobacco status: current every day smoker Alcohol intake: former Substance/Drug Use: former Date of last use: Amphetamines more than 62 days ago Caregiver/support person: Yes Lives independently: Yes Household members: other Current occupation: [employer] Vitals/I&O/Wt Last Vital Signs Temp 98.1 F 08/28/22 07:10 Pulse 85 08/28/22 07:10 Resp 17 08/28/22 07:10 BP 184/94 08/28/22 07:10 Pulse Ox 97 08/28/22 07:10 O2 Del Method 08/28/22 07:10 O2 Flow Rate 3 08/27/22 17:05 08/27/22 08/28/22 08/28/22 22:59 06:59 14:59 Intake Total 2090 / 2140 2328 / 4468 Output Total 1270 / 1270 1860 / 3130 Balance 820 / 870 468 / 1338 Weight last 48 hrs Weight 116.845 kg Physical Exam Narrative: General: No acute distress, AO x3, pleasant with surgical drain present HEENT: PERRLA, pupils bilaterally equal and reactive Chest: Normal vesicular breath sounds, no added sounds, equal good air entry bilaterally CVS: S1-S2 regular, no murmurs, no tachycardia, no gallops, no rubs Abdomen: Soft, nontender, no organomegaly, bowel sounds present Neuro: No focal deficits, no facial deformity, AO x3, power 5/5 in all limbs Urinary Catheter Management: Trinh: Cath Placed During This Visit: yes Reason for Continuing Indwelling Catheter: Perioperative Use in Selected Surgeries Urinary Catheter Date of Insertion: 08/27/22 Urinary Catheter Time of Insertion: 11:57 Data : 08/28/22 04:20 08/28/22 04:20 A&P Assessment and plan (1) Status post lumbar spinal fusion: Antibiotics, physical therapy, anticoagulation as per surgical team. (2) Type 1 diabetes: Currently using up to 90 units of NovoLog at home. Being transitioned to insulin pump. Followed up with endocrine as an outpatient. Currently does not have any insulin for insulin pump. States gets once a month as it is in transition with Medicaid. Continue with NovoLog 30 units 3 times daily along with insulin sliding scale. Start on Lantus 30 units twice daily. Check A1c. Monitor blood sugars. (3) Uncontrolled hypertension: Uncontrolled at home. Medical reconciliation done. Continue with home dose of prazosin, lisinopril 40 mg daily. Switch to propranolol 20 mg 3 times a day. Goal blood pressure less than 150/90 mmHg. Will uptitrate medications as per goal. Plan Thank you for involving us in the nursing care of Mr. San. Continue other chronic home medications including bupropion, mirtazapine. Check iron panel, vitamin B12, folate level, TSH, lipid panel, A1c. On discharge, will give him a prescription for Lantus which he is to take while he is awaiting insulin for insulin pump. Once he is back on insulin pump he can stop using both NovoLog and Lantus. Will adjust his antihypertensives further as per goals and provide prescriptions on discharge. Consult Attestations Medical Necessity Statement: As per primary team Time Spent in Patient Care: Greater than 35 minutes Coding Level of Care Code Acute Engraver Flatware for Bessie Gaxiola Diagnoses Status post lumbar spinal fusion Z98.1 Type 1 diabetes E10.9 Uncontrolled hypertension I10
--- NOTE | 2022-08-28 10:54 | PC.PHAR ---
waiting for pts friend jim to call back with med list
--- NOTE | 2022-08-28 11:07 | PC.NURSE ---
i reported the high bp to the nurse. 180/104 185/110
[2022-08-28] MEDS: insulin lispro 100 unit/1 mL 25 UNIT SUBCUT ×2 (11:26→17:20)
[2022-08-28 11:27] LABS: Glucose Point of Care 271 mg/dL (70-110)
[2022-08-28] MEDS: baclofen 10 mg Tablet PO (11:51)
--- NOTE | 2022-08-28 11:52 | PC.PHAR ---
Addendum entered by Lorene Ariza 08/28/22 11:55: jim states the pt has been out of his meds for his insulin pump and only been using ss novolog flexpen u100- Original Note: medications entered are meds [facility] recently for the pt for turning leaf and what pts friend jim states the pt takes-jim states the pt takes 30mg hs of mirtazapine [facility] gets a 45mg tab hs filled last filled 08/17/22
--- NOTE | 2022-08-28 12:20 | PC.CHAP ---
Pastoral Care Encounter/Spiritual Assessment Type of Contact [] Declined ordnance officer visit [] Patient/Family/Request visit [] Outpatient visit [] Follow-up visit [] Physician referral [] Code/Alert [x] Routine visit [] Staff referral [] Actively dying [] Patient sleeping [] Family support [] [] Out of room [] Palliative care [] [] Receiving care in room [] Pre-surgical visit [] Trauma [] Long length of stay [] ICU visit [] Other: Relational/Emotional Strength [] Patient feels connected with others/family/visitors/staff [] Distress [] Loneliness/isolation [] Abandonment Spirituality of Patient [x] Person of Alisa [] Attends Sabianism of their Alisa [x] Believes in Prayer [] Reads Bible or Advent materials [] There are Spiritual issues to be addressed Jig Hand Interventions [x] Prayer [] Active listening [] Non-anxious presence [] Spiritual/emotional support [] Crisis/trauma care [] Spiritual counseling [] Bereavement support [] Provided bereavement packet [x] Provided Bible/devotional materials [] Provided toy/stuffed animal, coloring book to patient or family member [] Provided Communion [] Anointing/[place] [] Salvation [x] Completed spiritual assessment [] Other: Impact on Illness or Injury [] Angry [] Fearful [] Anxious [] Often cries [] Exhaustion [] Unable to work [] Unable to attend shinto [] Unable to walk/stand [] Unable to read [] Unable to drive [] Unable to eat/drink [] Unable to sleep [] Unable to be with family [] Patient intubated [] Other: Summary 15 min Time spent with patient
[2022-08-28] MEDS: acetaminophen 325 mg Tablet 650 MG PO ×2 (13:41→17:43)
[2022-08-28] MEDS: propranolol 20 mg Tablet PO ×2 (15:10→20:11)
[2022-08-28 16:17] LABS: Glucose Point of Care 294 mg/dL (70-110)
[2022-08-28] MEDS: insulin glargine 100 units/1 mL 30 UNIT SUBCUT (17:14)
[2022-08-28] MEDS: prazosin 1 mg Capsule 4 MG PO (20:11)
[2022-08-28 21:47] LABS: Glucose Point of Care 111 mg/dL (70-110)
[2022-08-29] VITALS: BP 137/83; PULSE 94; RESP 18; TEMP 36.8; O2SAT 96
[2022-08-29] MEDS: HYDROcodone-acetaminophen 5-325 mg Tablet PO (02:13)
[2022-08-29] MEDS: ketorolac 30 mg/mL INJ IVP (02:13)
[2022-08-29 03:05] LABS: Basophils % 0.4 %; Eosinophils # 0.1 10^3/uL (0.0-0.8); Hematocrit 29.7 % (42.0-52.0); Lymphocytes # 2.1 10^3/uL (0.8-4.8); Lymphocytes % 21.4 %; Mean Corpuscular HGB Conc 33.7 g/dL (30.0-36.0); Mean Corpuscular Hemoglobin 32.1 pg (28.0-34.0); Mean Corpuscular Volume 95.2 fl (80-94); Mean Platelet Volume 10.4 fL (7.4-10.4); Monocytes # 1.1 10^3/uL (0.2-0.9); Monocytes % 11.3 %; Neutrophils # 6.36 10^3/uL (1.8-7.7); Neutrophils % 65.5 %; Nucleated Red Blood Cells % 0 %; Platelet Count 210 10^3/cmm (130-400); Red Blood Count 3.12 10^6/uL (4.1-5.3); Red Cell Distribution Width 12.8 % (12.1-15.1); White Blood Count 9.7 10^3/uL (4.0-10.0)
[2022-08-29 03:28] LABS: Alanine Aminotransferase 17 U/L (0-41); Albumin Level 2.3 g/dL (3.5-5.2); Alkaline Phosphatase 55 U/L (40-130); Anion Gap 11.6 (5-19); Aspartate Amino Transferase 36 U/L (0-40); Blood Urea Nitrogen 23 mg/dL (6-20); Calcium 8.5 mg/dL (8.5-10.5); Carbon Dioxide 28 mmol/L (22-29); Chloride 105 mmol/L (98-107); Globulin 2.6 g/dL (1.3-4.6); Glomerular Filtration Rate 78.1 mL/min (90-130); Glucose 273 mg/dL (65-115); Osmolality Calculated 303 mOsm/kg (285-295); Potassium 4.6 mmol/L (3.5-5.1); Sodium 140 mmol/L (136-145); Total Bilirubin 0.2 mg/dL (0.15-1.2); Total Protein 4.9 g/dL (6.6-8.7)
[2022-08-29 05:31] VITALS: RESP 18
[2022-08-29] MEDS: morphine 4 mg/mL SDV 1 mL 2 MG IVP (05:31)
[2022-08-29] MEDS: famotidine 20 mg/2 mL INJ IVP (05:31)
[2022-08-29] MEDS: buPROPion XL (24 HR) 150 mg Tablet PO (05:31)
[2022-08-29 05:48] VITALS: BP 117/57; PULSE 82; RESP 16; TEMP 36.7; O2SAT 96
--- NOTE | 2022-08-29 06:42 | P.PN_ITS ---
Subjective Subjective: POD 2 Patient resting comfortably. Reports improvement of his leg pain reporting mild back pain. States he lives by self is requesting help at home. Vitals/I&O/Wt Last Vital Signs Temp 98.1 F 08/29/22 05:48 Pulse 82 08/29/22 05:48 Resp 16 08/29/22 05:48 BP 117/57 08/29/22 05:48 Pulse Ox 96 08/29/22 05:48 O2 Del Method 08/29/22 05:48 O2 Flow Rate 3 08/27/22 17:05 08/28/22 08/28/22 08/29/22 14:59 22:59 06:59 Intake Total 2140 / 2140 1847.0 / 3987.0 Output Total 1250 / 1250 150 / 1400 Balance 2140 / 2140 597.0 / 2737.0 -150 / 2587.0 Weight last 48 hrs Weight 257 lb 9.6 oz Physical Exam Narrative: Patient presents alert and oriented x3 with a good general appeara nce normal mood and affect. Normal coordination normal stability. Mild tenderness around the incisional site with the incision appear to be healing nicely. No signs of erythema or drainage. No signs of infection. Patient denies any fevers or chills. 5/5 motor strength both lower extremities with negative straight leg raise bilaterally. Calves are supple no medial thigh tenderness. Pulses are 2+ at the dorsalis pedis and posterior tibial region. Good capillary refill throughout normal sensation light touch both lower extremities. Urinary Catheter Management: Trinh: Cath Placed During This Visit: yes, but has since been removed by the nurse Reason for Continuing Indwelling Catheter: Decision to DC Catheter Urinary Catheter Date of Insertion: 08/27/22 Urinary Catheter Time of Insertion: 11:57 Date Urinary Catheter Removed: 08/28/22 Time Urinary Catheter Discontinued: 12:52 Data 08/29/22 01:59 08/29/22 01:59 A&P Assessment and plan (1) Status post lumbar spinal fusion: We will discontinue Hemovac drain. Encourage physical therapy to continue to mobilize. Have child protective services social worker assess for home health care. Encouraged patient to continue incentive spirometry for pulmonary toilet and watch his blood sugars at home very closely. We will see him back in the office in 1 week's time for wound check. He will call if he is having problems. (2) Type 1 diabetes: Attestations Medical Necessity Statement*: home later today with [facility] Coding Level of Care Code Acute Carpet Journeyman for g Fwd Diagnoses Status post lumbar spinal fusion Z98.1 Type 1 diabetes E10.9
[2022-08-29 07:15] LABS: Glucose Point of Care 207 mg/dL (70-110)
--- NOTE | 2022-08-29 07:59 | PC.NURSE ---
Hemovac removed on 08/29/2022 @ 0800 orders received from Jose Miugel. Intact and bandage applied.
[2022-08-29] MEDS: mirtazapine 30 mg Tablet 60 MG PO (08:54)
[2022-08-29] MEDS: lisinopril 20 mg Tablet 40 MG PO (08:54)
[2022-08-29] MEDS: docusate sodium 100 mg Capsule PO (08:54)
[2022-08-29] MEDS: quetiapine 25 mg Tablet PO (08:54)
[2022-08-29] MEDS: propranolol 20 mg Tablet PO (08:55)
[2022-08-29] MEDS: acetaminophen 325 mg Tablet 650 MG PO (08:56)
[2022-08-29] MEDS: insulin lispro 100 unit/1 mL 25 UNIT SUBCUT (09:08)
[2022-08-29] MEDS: insulin glargine 100 units/1 mL 30 UNIT SUBCUT (09:09)
[2022-08-29] MEDS: insulin lispro 100 unit/1 mL SUBCUT (09:09)
--- NOTE | 2022-08-29 10:23 | P.PN_ITS ---
Subjective Subjective: No acute vents overnight. Patient has been discharged as per orthopedics team. Blood sugars and blood pressure are better controlled. He denies of any new complaints Vitals/I&O/Wt Last Vital Signs Temp 98.1 F 08/29/22 05:48 Pulse 82 08/29/22 05:48 Resp 16 08/29/22 05:48 BP 117/57 08/29/22 05:48 Pulse Ox 96 08/29/22 05:48 O2 Del Method 08/29/22 05:48 O2 Flow Rate 3 08/27/22 17:05 08/28/22 08/29/22 08/29/22 22:59 06:59 14:59 Intake Total 1847.0 / 3987.0 1000 / 1000 Output Total 1250 / 1250 150 / 1400 Balance 597.0 / 2737.0 -150 / 2587.0 1000 / 1000 Weight last 48 hrs Weight 116.845 kg Physical Exam Narrative: General: No acute distress, AO x3 HEENT: PERRLA, pupils bilaterally equal and reactive Chest: Normal vesicular breath sounds, no added sounds, equal good air entry bilaterally CVS: S1-S2 regular, no murmurs, no tachycardia, no gallops, no rubs Abdomen: Soft, nontender, no organomegaly, bowel sounds present Neuro: No focal deficits, no facial deformity, AO x3, power 5/5 in all limbs Urinary Catheter Management: Trinh: Cath Placed During This Visit: yes, but has since been removed by the nurse Reason for Continuing Indwelling Catheter: Decision to DC Catheter Urinary Catheter Date of Insertion: 08/27/22 Urinary Catheter Time of Insertion: 11:57 Date Urinary Catheter Removed: 08/28/22 Time Urinary Catheter Discontinued: 12:52 Data : 08/29/22 01:59 08/29/22 01:59 A&P Assessment and plan (1) Status post lumbar spinal fusion: Antibiotics, physical therapy, anticoagulation as per surgical team. (2) Type 1 diabetes: Currently using up to 90 units of NovoLog at home. Being transitioned to insulin pump. Followed up with endocrine as an outpatient. Currently does not have any insulin for insulin pump. States gets once a month as it is in transition with Medicaid. Continue with NovoLog 30 units 3 times daily along with insulin sliding scale. Start on Lantus 30 units twice daily. Check A1c. Monitor blood sugars. (3) Uncontrolled hypertension: Uncontrolled at home. Medical reconciliation done. Continue with home dose of prazosin, lisinopril 40 mg daily. Switch to propranolol 20 mg 3 times a day. Goal blood pressure less than 150/90 mmHg. Will uptitrate medications as per goal. Plan Thank you for involving us in the nursing care of Mr. San. Continue other chronic home medications including bupropion, mirtazapine. Plan for discharge today. We will give him a prescription of Levemir 20 units nightly. We advised patient to continue taking propranolol 20 mg twice daily as scheduled rather than as needed. He is to continue taking his other antihypertensives including lisinopril 40 mg as before. Alfa advised to check his blood pressures and blood sugar daily and maintain blood pressure and sugar diary and follow-up with a primary care provider within next. Attestations Medical Necessity Statement*: As per primary team Time Spent in Patient Care: Greater than 35 minutes Coding Level of Care Code Acute Medical Program Specialist for Bessie Gaxiola Diagnoses Status post lumbar spinal fusion Z98.1 Type 1 diabetes E10.9 Uncontrolled hypertension I10
[2022-08-29 11:25] VITALS: BP 117/57; PULSE 82; RESP 16; TEMP 36.7; O2SAT 96
--- NOTE | 2022-08-30 13:20 | PM.DCS ---
Discharge Providers Date of Admission: 08/27/22 16:50 Date of Discharge: August 30, 2022 Attending Provider at Admission: Miquel Alba DO Attending Provider at Discharge: Miquel Alba DO Primary Care Provider: LAWANDA Garcia Diagnoses at Discharge Discharge Diagnosis (1) Status post lumbar spinal fusion: Status: Acute (2) Type 1 diabetes: Status: Acute (3) Uncontrolled hypertension: Status: Acute Reason for Visit Reason for Visit: PLIF L3-S1 Hospital Course Hospital Course uneventful Physical Exam Urinary Catheter Management: Trinh: Cath Placed During This Visit: yes, but has since been removed by the nurse Reason for Continuing Indwelling Catheter: Decision to DC Catheter Urinary Catheter Date of Insertion: 08/27/22 Urinary Catheter Time of Insertion: 11:57 Date Urinary Catheter Removed: 08/28/22 Time Urinary Catheter Discontinued: 12:52 Discharge Data Studies Completed and Pending Completed Studies During Hospitalization Category Date Time Status XR lumbar spine 2-3V* [id number] Routine Exams 08/27/22 Completed Radiology Impressions Lumbar Spine X-Ray 08/27/22 00:00 IMPRESSION: 1. Stable-appearing interbody fusion from L3 to S1 as detailed above. Laboratory Results WBC 9.7 10^3/uL (4.0-10.0) 08/29/22 01:59 RBC 3.12 10^6/uL (4.1-5.3) L 08/29/22 01:59 Hgb 10.0 g/dL (11.7-16.6) L 08/29/22 01:59 Hct 29.7 % (42.0-52.0) L 08/29/22 01:59 MCV 95.2 fl (80-94) H 08/29/22 01:59 MCH 32.1 pg (28.0-34.0) 08/29/22 01:59 MCHC 33.7 g/dL (30.0-36.0) 08/29/22 01:59 RDW 12.8 % (12.1-15.1) 08/29/22 01:59 Plt Count 210 10^3/cmm (130-400) 08/29/22 01:59 MPV 10.4 fL (7.4-10.4) 08/29/22 01:59 Neut % (Auto) 65.5 % 08/29/22 01:59 Lymph % (Auto) 21.4 % 08/29/22 01:59 [place] % (Auto) 11.3 % 08/29/22 01:59 Eos % (Auto) 1.0 % 08/29/22 01:59 Baso % (Auto) 0.4 % 08/29/22 01:59 Neut # (Auto) 6.36 10^3/uL (1.8-7.7) 08/29/22 01:59 Lymph # (Auto) 2.1 10^3/uL (0.8-4.8) 08/29/22 01:59 [place] # (Auto) 1.1 10^3/uL (0.2-0.9) H 08/29/22 01:59 Eos # (Auto) 0.1 10^3/uL (0.0-0.8) 08/29/22 01:59 Baso # (Auto) 0.0 10^3/uL (0.0-0.1) 08/29/22 01:59 Nucleated RBC % (auto) 0 % 08/29/22 01:59 Nucleated RBCs # 0.0 /100WBC 08/29/22 01:59 Sodium 140 mmol/L (136-145) 08/29/22 01:59 Potassium 4.6 mmol/L (3.5-5.1) 08/29/22 01:59 Chloride 105 mmol/L (98-107) 08/29/22 01:59 Carbon Dioxide 28 mmol/L (22-29) 08/29/22 01:59 Anion Gap 11.6 (5-19) 08/29/22 01:59 BUN 23 mg/dL (6-20) H 08/29/22 01:59 Creatinine 1.1 mg/dL (0.7-1.2) 08/29/22 01:59 GFR Calculation 78.1 mL/min (90-130) L 08/29/22 01:59 Glucose 273 mg/dL (65-115) H 08/29/22 01:59 POC Glucose 207 mg/dL (70-110) H 08/29/22 06:59 Estimat Average Glucose 174 08/28/22 04:20 Hemoglobin A1c 7.7 % (4.0-6.0) H 08/28/22 04:20 Calculated Osmolality 303 mOsm/kg (285-295) H 08/29/22 01:59 Calcium 8.5 mg/dL (8.5-10.5) 08/29/22 01:59 Iron 76 ug/dL (59-158) 08/27/22 10:40 TIBC 285 mcg/dl 08/27/22 10:40 % Saturation 26.6 % (20-50) 08/27/22 10:40 Unsat Iron Binding 209 ug/dL (112-347) 08/27/22 10:40 Total Bilirubin 0.2 mg/dL (0.15-1.2) 08/29/22 01:59 AST 36 U/L (0-40) 08/29/22 01:59 ALT 17 U/L (0-41) 08/29/22 01:59 Alkaline Phosphatase 55 U/L (40-130) 08/29/22 01:59 Total Protein 4.9 g/dL (6.6-8.7) L 08/29/22 01:59 Albumin 2.3 g/dL (3.5-5.2) L 08/29/22 01:59 Globulin 2.6 g/dL (1.3-4.6) 08/29/22 01:59 Triglycerides 263 mg/dL (0-150) H 08/28/22 04:20 Cholesterol 176 mg/dL (0-200) 08/28/22 04:20 LDL Cholesterol, Calc 90 mg/dL (50-129) 08/28/22 04:20 Total VLDL Cholesterol 53 mg/dL (0-30) H 08/28/22 04:20 HDL Cholesterol 33 mg/dL (60-100) L 08/28/22 04:20 Cholesterol/HDL Ratio 5.33 mg/dL (1.0-5.00) H 08/28/22 04:20 Vitamin B12 491 pg/mL (232-1245) 08/27/22 10:40 Folate 16.2 ng/mL (4.5-32.2) 08/27/22 20:29 TSH 2.50 uIU/mL (0.27-4.20) 08/27/22 10:40 Urine Color Yellow (Yellow) 08/27/22 18:29 Urine Appearance Clear (CLEAR) 08/27/22 18:29 Urine pH 5 (5-7) 08/27/22 18:29 Ur Specific [place] 1.020 (1.005-1.030) 08/27/22 18: Urine Protein 2+ (Negative) H 08/27/22 18: Urine Glucose (UA) 2+ (Normal) H 08/27/22 18:29 Urine Ketones Negative (Negative) 08/27/22 18: Urine Blood 3+ (Negative) H 08/27/22 18: Urine Nitrate Negative (Negative) 08/27/22 18: Urine Bilirubin Neg (Negative) 08/27/22 18: Urine Urobilinogen Norm mg/dL (Negative) 08/27/22 18: Ur Leukocyte Esterase Negative (Negative) 08/27/22 18: Urine RBC 0-4 /hpf (0-2) H 08/27/22 18: Urine WBC 0-4 /hpf (0-5) H 08/27/22 18:29 Ur Squamous Epith Cells 0-4 /hpf (0-5) H 08/27/22 18: Amorphous Sediment Not Reportable 08/27/22 18: Urine Bacteria 4+ /hpf (NONE) H 08/27/22 18:29 Blood Type O Positive 08/27/22 10:40 Rho(D) Type Positive 08/27/22 10:40 Antibody Screen Negative 08/27/22 10:40 Vitals Last Vital Signs Temp 98.1 F 08/29/22 11:25 Pulse 82 08/29/22 11:25 Resp 16 08/29/22 11:25 BP 117/57 08/29/22 11:25 Pulse Ox 96 08/29/22 11:25 O2 Del Method 08/29/22 05:48 O2 Flow Rate 3 08/27/22 17:05 Discharge Plan Discharge Patient Disposition: Home Condition: Stable Prescriptions: New hydrocodone-acetaminophen 5-325 mg Tablet 1 - 2 tab PO Q4H PRN (Reason: Postop pain) Qty: 40 0RF Levemir FlexTouch U-100 Insuln 100 unit/mL (3 mL) insulin pen 20 unit SUBCUT QPM Qty: 15 0RF Continued (DME) Omnipod 5 G6 Pods (Gen 5) Cartridge See Rx Instructions .Route Qty: 5 3RF Rx Instructions: As directed (DME) Dexcom G6 Transmitter Device See Rx Instructions .Route Qty: 1 3RF Rx Instructions: Change every 90 days. (DME) Dexcom G6 Sensor Device See Rx Instructions .Route Qty: 3 3RF Rx Instructions: Change every 10 days. (DME) Dexcom G6 Belling Machine Operator Misc See Rx Instructions .Route Qty: 1 0RF Rx Instructions: Check BS 4-6 times a day. lisinopril 20 mg tablet 40 mg PO DAILY baclofen 10 mg tablet 10 mg PO TID PRN (Reason: Spasms) (DME) Omnipod 5 G6 Intro Kit (Gen 5) Cartridge See Rx Instructions .Route Qty: 1 0RF Rx Instructions: As directed tramadol 50 mg tablet 50 mg PO Q6H PRN (Reason: pain) 7 Days Qty: 30 0RF (DME) Intraoperative Neuromonitoring See Rx Instructions .Route .MEDSUPPLY Qty: 1 0RF Rx Instructions: As directed insulin aspart U-100 [Novolog Flexpen U-100 Insulin] 100 unit/mL (3 mL) insulin pen See Rx Instructions .ROUTE .COMPLEX Rx Instructions: sliding scale as directed multivitamin Tablet 1 tab PO DAILY mirtazapine 45 mg Tablet 45 mg PO BEDTIME prazosin 2 mg Capsule 4 mg PO BEDTIME Wellbutrin XL 150 mg Tablet Extended Release 24 Hr 150 mg PO QAM Seroquel 50 mg Tablet 100 mg PO BEDTIME PRN (Reason: unknown) Chantix Continuing Month Box 1 mg Tablet 1 mg PO BID Changed propranolol 20 mg Tablet 20 mg PO TID 30 Days Qty: 90 0RF Discharge Orders: Discharge Order (Routine); Ordered 08/29/22 Ordered By: Tano Mcarthur Other Ambulatory Orders: DME: Walker (Order) Location: None Selected Ordered By: Humphrey Fernandez Referrals: Miquel Alba DO [Physician] - 09/04/22 2:15 pm Jason Ariza FNP [Primary Care Provider] - 09/04/22 10:00 am () Discharge Diet: Advance as tolerated Discharge Activity: Limit activity as instructed Patient Instructions: Hydrocodone/Acetaminophen (By mouth) (Vicodin, [place], Lortab), Lumbar Spinal Fusion (GEN), Opioid Safety Activity Restrictions/Additional Instructions: While you are off insulin pump please take levemir 20 nits at bedtime. You should stop levemir when insulin pump is fixed. Take propanalol 20 mg TID scheduled along with meds from before Please check BP and BS daily and mantain a dairy and f/u with PCP in 10 days for further adjustment of meds Thank you for choosing [facility] for your care! The following is a list of instructions, from your provider, to follow upon your discharge to ensure you have the optimal recovery from your recent injury or surgery. Follow-up care is a martin part of your treatment and safety. Be sure to make and go to all appointments and call your doctor if you are having problems. If you do not already have a follow-up appointment made, call Dr. Alba's] office in the next 1-3 days to make follow up appointment for 1 weeks at [phone]. It is also a good idea to know your test results and keep a list of the medicines you take. Medications will be prescribed for you at your provider's discretion. These medications are to be used as instructed; if they are taken more often that prescribed they will not be refilled early and in most cases will not be refilled at all. > When a refill is needed, you should contact kaya hale 2-3 business days before your prescription runs out. Medications will NOT be refilled by music education adjunct professor providers after hours! > Many pain medications contain Tylenol (Acetaminophen). Do not consume more than 4,000 mg of Tylenol per day in total with any combination of medications. > Pain medications can cause constipation. Please use an over the counter stool softener as directed, while taking pain medications. Consult your local pharmacist with questions or recommendations on stool softeners. If constipation persists, contact our office or your primary care provider. > While under our care, you are not to receive pain medications or other controlled substances from any other provider unless our office is notified and approves. Any attempts to do so will result in refusal to prescribe any further pain medications and possible dismissal from our practice. ? Walking is essential for the healing process after surgery. We would like you to slowly advance your walking. This should be done on relatively flat clear ground (inside or out) or can be done on a treadmill. Remember this goal does not have to happen all at once, slowly increase your distance and duration. This can be broken into more more than one walk per day as tolerated. Patients who walk as directed after surgery rarely require Physical Therapy. In the unlikely event this issue arises your provider will direct hospital staff to make the appropriate arrangements. ? No lifting over 5 pounds {a gallon of milk) or bending/twisting until further notice. Each of these activities places an unnecessary amount of stress onto the body and can impede the delicate healing process. > Instead of bending at the waist, keep your back straight and bend at the knees. > Instead of twisting your torso, keep your back straight and turn your entire body with your feet. ? You may sleep in any position which makes you comfortable. Many patients find comfort sleeping in a reclining chair. It is not abnormal to have difficulty sleeping for the first several weeks following your surgery. We recommend trying Benadry! or Tylenol PM as directed to help with your sleeping difficulties. Both medications are over the counter and available without prescription. ? NO SMOKING!!! Smoking dramatically increases the probability of developing postoperative wound infections. ? Common complaints after lumbar and/or thoracic spine surgery include, but are not limited to: numbness and/or tingling in the legs, pain around the incision and surrounding tissues, muscle spasms, or stiffness of the middle to low back. Contact our office if these symptoms persist or if an acute change occurs. ? No driving for the first 3-5days, and not while taking narcotics until seen at your follow-up appointment and cleared. There are no restrictions for riding on short trips, however if you take a longer trip, arrangements should be made to make regular stops to get out of the vehicle and stretch . ? Swelling is an unfortunate event that will take place with any surgery and is the primary source of your postoperative discomfort. While walking and regular approved activities helps control inflammation, there are additional steps you can take to minimize swelling. > Place ice over the surgical site and surrounding tissue for twenty minutes, followed by applying a low/medium heat (heating pad) for an additional twenty minutes every 1-2 hours as needed for painrelief. > You may use of over the counter anti-inflammatory medications (Ibuprofen, Motrin, Aleve, Advil, etc) as directed on the package label. These types of medicines will significantly reduce the amount of discomfort you experience after surgery from swelling. It should be noted that if you have and allergy to any of these medications, or a history of ulcers or kidney disease you should consult you primary care provider prior to starting these medications. Discharge Attestations Time Spent in Discharge Care*: less than 30 min Quality Metrics Clinical Quality Measures [ No reported AMI, CVA or VTE this stay] Coding Level of Care Code Acute Chg FW DC note Diagnoses Status post lumbar spinal fusion Z98.1 Type 1 diabetes E10.9 Uncontrolled hypertension I10
== END 2022-08-29 11:28 | disposition home or self-care (01) | DRG 455 ==
LOC: MEDSURG 18:36
PROVIDERS: Anesthesiology; Student in an Organized Health Care Education/Training Program; Admitting Provider Orthopaedic Surgery; PCP Nurse Practitioner Family; Visit Provider Orthopaedic Surgery
PROC: 0SG10AJ Fusion of 2 or more Lumbar Vertebral Joints with Interbody Fusion Device, Posterior Approach, Anterior Column, Open Approach (ICD-10-PCS; CPT 22612; principal; 2022-08-27 11:00)
DX: M51.16 Intervertebral disc disorders with radiculopathy, lumbar region (principal); E10.65 Type 1 diabetes mellitus with hyperglycemia; F17.200 Nicotine dependence, unspecified, uncomplicated; F41.9 Anxiety disorder, unspecified; M62.830 Muscle spasm of back; I10 Essential (primary) hypertension; F15.11 Other stimulant abuse, in remission; Z79.891 Long term (current) use of opiate analgesic; Z82.49 Family history of ischemic heart disease and other diseases of the circulatory system; Z82.3 Family history of stroke
CPT/HCPCS: 36415; 36416; 51702; 51798; 72100; 76000; 80048; 80053; 80061; 81001; 82607; 82746; 82962; 83036; 83540; 83550; 84443; 85025; 86850; 86900; 87086; 96372; 97161; 97530; C1713; C9359; J0330; J0690; J1170; J1644; J1815; J1885; J2270; J2405; J2704; J2710; J3010; J3370; J3490; J7030; J7120

== ENCOUNTER → 2022-09-04 13:44 | Outpatient (BNVA) | payer MEDICAID, SELFPAY | PROVIDERS: PCP Nurse Practitioner Family; Visit Provider Physician Assistant | DX: Z47.89 Encounter for other orthopedic aftercare (principal); Z98.1 Arthrodesis status | CPT/HCPCS: 72100 ==

== ENCOUNTER → 2022-10-02 14:10 | Outpatient (BNVA) | payer MEDICAID, SELFPAY | PROVIDERS: PCP Nurse Practitioner Family; Visit Provider Physician Assistant | DX: Z98.1 Arthrodesis status (principal) | CPT/HCPCS: 72100 ==

== ENCOUNTER 2023-04-26 21:10 | Inpatient (IN) | payer MEDICAID, SELFPAY ==
[2023-04-26 21:13] VITALS: BP 203/114; PULSE 101; RESP 16; TEMP 37.2; O2SAT 95; BMI 32.8
[2023-04-26 21:43] VITALS: RESP 18
[2023-04-26 21:54] LABS: Basophils # 0.1 10^3/uL (0.0-0.1); Basophils % 0.9 %; Eosinophils # 0.1 10^3/uL (0.0-0.8); Eosinophils % 1.3 %; Hematocrit 39.1 % (42.0-52.0); Hemoglobin 14.1 g/dL (11.7-16.6); Lymphocytes # 2.6 10^3/uL (0.8-4.8); Mean Corpuscular HGB Conc 36.1 g/dL (30.0-36.0); Mean Corpuscular Hemoglobin 32.3 pg (28.0-34.0); Mean Corpuscular Volume 89.5 fl (80-94); Mean Platelet Volume 10.6 fL (7.4-10.4); Monocytes # 0.6 10^3/uL (0.2-0.9); Monocytes % 6.3 %; Neutrophils # 6.24 10^3/uL (1.8-7.7); Nucleated Red Blood Cells % 0 %; Platelet Count 322 10^3/cmm (130-400); Red Blood Count 4.37 10^6/uL (4.1-5.3); Red Cell Distribution Width 12.2 % (12.1-15.1); White Blood Count 9.8 10^3/uL (4.0-10.0)
[2023-04-26 22:15] LABS: Alanine Aminotransferase 20 U/L (0-41); Alkaline Phosphatase 124 U/L (40-130); Anion Gap 15.7 (5-19); Aspartate Amino Transferase 18 U/L (0-40); Blood Urea Nitrogen 14 mg/dL (6-20); Calcium 8.3 mg/dL (8.5-10.5); Carbon Dioxide 22 mmol/L (22-29); Chloride 94 mmol/L (98-107); Globulin 2.9 g/dL (1.3-4.6); Glomerular Filtration Rate 86.6 mL/min (90-130); Osmolality Calculated 298 mOsm/kg (285-295); Potassium 4.7 mmol/L (3.5-5.1); Sodium 127 mmol/L (136-145); Total Bilirubin 0.2 mg/dL (0.15-1.2); Total Protein 5.9 g/dL (6.6-8.7)
[2023-04-26 22:22] LABS: Acetaminophen < 5.0 ug/mL (10-30); Alcohol Level < 10 mg/dL (0-10); Glucose 699 mg/dL (65-115); Salicylate < 0.3 mg/dL (3-10)
[2023-04-26 22:32] LABS: Amphetamines Screen Urine Negative (Negative); Barbiturates Screen Urine Negative (Negative); Benzodiazepines Screen Urine Negative (Negative); Cocaine Screen Urine Negative (Negative); Opiate Screen Urine Negative (Negative); PCP Screen Urine Negative (Negative); THC Screen Urine Negative (Negative)
[2023-04-26 22:33] LABS: Urine Appearance Clear (CLEAR); Urine Color Colorless (Yellow); pH Urine 6.5 (5-7)
[2023-04-26] MEDS: sodium chloride 0.9% 1,000 ML 999 ML IV (22:33)
[2023-04-26 22:34] LABS: Add Urine Microscopic? YES; Bilirubin Urine Neg (Negative); Blood Urine 3+ (Negative); Glucose Urine UA 4+ (Normal); Leukocyte Esterase Urine Negative (Negative); Nitrate Urine Negative (Negative); Protein Urine 3+ (Negative); RBC Urine 15-25 /hpf (0-2); Urobilinogen Urine Norm (Negative)
[2023-04-26] MEDS: insulin regular-human 100 units/1 mL 15 UNIT IVP (22:34)
[2023-04-26 22:35] LABS: Add Urine Culture? Yes; Bacteria Urine TRACE /hpf
--- NOTE | 2023-04-26 22:59 | W.ED.PSYCHS ---
HPI - Psych General: Chief Complaint: Psychiatric Symptoms Stated Complaint: says hes hearing voices Time Seen by Provider: 04/26/23 21:26 Source: patient History of Present Illness: 32-year-old male insulin-dependent diabetic with a history of mental illness. He presents with psychosis symptoms. He states he has been hearing voices on and off since he was a child, but they have not usually told him to harm himself. They have been of late. He attempted to score fentanyl off the street, to overdose earlier today he has not been using his insulin appropriately, and knows that his blood sugar is high. However, he has not been vomiting. His blood pressure is high as well, as he has not been on blood pressure medication. MD complaint: suicidal ideation and feels depressed Onset (ago): day(s) Duration: constant History of same: No Relieving factors: none Exacerbating factors: none Context: significant life stressor (Significant other leaving) Associated symptoms: Reports auditory hallucinations If self harm: admits thoughts of self harm and has plan Review of Systems Const: Denies: fever(s) Card: Denies: chest pain Resp: Denies: dyspnea GI: Denies: abdominal pain, nausea or vomiting Musc: Reports: back pain (Chronic) Skin/Breast: Denies: rash Neuro: Denies: headache(s) Psych: Reports: auditory hallucinations Endo: Reports: polydipsia PFS ED PFSH: Medical History Methamphetamine abuse Type 1 diabetes Uncontrolled hypertension Family History Other CAD (coronary artery disease) Hypertension Stroke Social History Smoking and tobacco status: current every day smoker Alcohol intake: former Substance/Drug Use: former Date of last use: Amphetamines more than 62 days ago Caregiver/support person: Yes Lives independently: Yes Household members: other 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 Physical Exam Const: COMMON NORMALS: no acute distress GENERAL APPEARANCE: anxious HENMT: COMMON NORMALS: normocephalic, atraumatic and Normal external nose present HEAD & SCALP: normocephalic and atraumatic FACE & SINUS: normal facial exam and face symmetric NOSE: Normal external nose present Eye: COMMON NORMALS: Equal, round and reactive pupils present and EOMs intact bilaterally PUPIL: Yes Equal, round and reactive pupils present Neck/C-Spine: GENERAL: Yes trachea midline Chest: CHEST: Yes Symmetrical chest wall rise Resp: COMMON NORMALS: normal respiratory effort, No retractions, No use of accessory muscles and clear to auscultation bilaterally AUSCULTATION: clear to auscultation bilaterally Cardio: COMMON NORMALS: regular rate and regular rhythm RATE: regular rate RHYTHM: regular rhythm GI: COMMON NORMALS: Normal to inspection, nondistended, normoactive bowel sounds present Extremity: COMMON NORMALS: no pedal edema Neuro: MELLISSA COMA SCALE: document GCS findings [place] coma scale eye opening: Spontaneous [place] coma scale verbal response: Orientated [place] coma scale motor response: Obey commands [place] coma scale total score: 15 SENSORY EXAM: Yes extremities (intact) Psych: COMMON NORMALS: speech normal SPEECH: Yes normal speech Skin: COMMON NORMALS: no rashes or lesions noted GENERAL SKIN EXAM: no rashes or lesions noted Course Vital Signs: Vital signs: Vital Signs Temperature 97.8 F 04/27/23 02:02 Pulse Rate 80 04/27/23 02:02 Respiratory Rate 17 04/27/23 02:02 Blood Pressure 150/90 04/27/23 02:02 Pulse Oximetry 97 04/27/23 02:02 Oxygen Delivery Me thod Room Air 04/27/23 02:02 [facility] - Psych Medical Decision Making [id number] male with suicidal ideation, and psychosis he is also an insulin-dependent diabetic he has not been using his insulin. He however is not ill. His blood sugar is 700. He does not have any acidosis, or signs of DKA. His anion gap is normal. Blood sugar is down to 280 after IV insulin. At this point, will place on a sliding scale, given nightly dose of long-acting. Spoke with Psychiatry. Agree to admit. Lab Data 04/26/23 21:42 04/26/23 21:42 Laboratory Results WBC 9.8 10^3/uL (4.0-10.0) 04/26/23 21:42 RBC 4.37 10^6/uL (4.1-5.3) 04/26/23 21:42 Hgb 14.1 g/dL (11.7-16.6) 04/26/23 21:42 Hct 39.1 % (42.0-52.0) L 04/26/23 21:42 MCV 89.5 fl (80-94) 04/26/23 21:42 MCH 32.3 pg (28.0-34.0) 04/26/23 21:42 MCHC 36.1 g/dL (30.0-36.0) H 04/26/23 21:42 RDW 12.2 % (12.1-15.1) 04/26/23 21:42 Plt Count 322 10^3/cmm (130-400) 04/26/23 21:42 MPV 10.6 fL (7.4-10.4) H 04/26/23 21:42 Neut % (Auto) 64.0 % 04/26/23 21:42 Lymph % (Auto) 27.0 % 04/26/23 21:42 [place] % (Auto) 6.3 % 04/26/23 21:42 Eos % (Auto) 1.3 % 04/26/23 21:42 Baso % (Auto) 0.9 % 04/26/23 21:42 Neut # (Auto) 6.24 10^3/uL (1.8-7.7) 04/26/23 21:42 Lymph # (Auto) 2.6 10^3/uL (0.8-4.8) 04/26/23 21:42 [place] # (Auto) 0.6 10^3/uL (0.2-0.9) 04/26/23 21:42 Eos # (Auto) 0.1 10^3/uL (0.0-0.8) 04/26/23 21:42 Baso # (Auto) 0.1 10^3/uL (0.0-0.1) 04/26/23 21:42 Nucleated RBC % (auto) 0 % 04/26/23 21:42 Nucleated RBCs # 0.0 /100WBC 04/26/23 21:42 Sodium 127 mmol/L (136-145) L 04/26/23 21:42 Potassium 4.7 mmol/L (3.5-5.1) 04/26/23 21:42 Chloride 94 mmol/L (98-107) L 04/26/23 21:42 Carbon Dioxide 22 mmol/L (22-29) 04/26/23 21:42 Anion Gap 15.7 (5-19) 04/26/23 21:42 BUN 14 mg/dL (6-20) 04/26/23 21:42 Creatinine 1.0 mg/dL (0.7-1.2) 04/26/23 21:42 GFR Calculation 86.6 mL/min (90-130) L 04/26/23 21:42 Glucose 699 mg/dL (65-115) H* 04/26/23 21:42 Calculated Osmolality 298 mOsm/kg (285-295) H 04/26/23 21:42 Calcium 8.3 mg/dL (8.5-10.5) L 04/26/23 21:42 Total Bilirubin 0.2 mg/dL (0.15-1.2) 04/26/23 21:42 AST 18 U/L (0-40) 04/26/23 21:42 ALT 20 U/L (0-41) 04/26/23 21:42 Alkaline Phosphatase 124 U/L (40-130) 04/26/23 21:42 Total Protein 5.9 g/dL (6.6-8.7) L 04/26/23 21:42 Albumin 3.0 g/dL (3.5-5.2) L 04/26/23 21:42 Globulin 2.9 g/dL (1.3-4.6) 04/26/23 21:42 Urine Color Colorless (Yellow) 04/26/23 21:39 Urine Appearance Clear (CLEAR) 04/26/23 21:39 Urine pH 6.5 (5-7) 04/26/23 21:39 Ur Specific [place] 1.010 (1.005-1.030) 04/26/23 21:39 Urine Protein 3+ (Negative) H 04/26/23 21:39 Urine Glucose (UA) 4+ (Normal) H 04/26/23 21:39 Urine Ketones Not Reportable 04/26/23 21:39 Urine Blood 3+ (Negative) H 04/26/23 21:39 Urine Nitrate Negative (Negative) 04/26/23 21:39 Urine Bilirubin Neg (Negative) 04/26/23 21:39 Urine Urobilinogen Norm mg/dL (Negative) 04/26/23 21:39 Ur Leukocyte Esterase Negative (Negative) 04/26/23 21:39 Urine RBC 15-25 /hpf (0-2) H 04/26/23 21:39 Urine WBC None /hpf (0-5) 04/26/23 21:39 Ur Squamous Epith Cells None /hpf (0-5) 04/26/23 21:39 Amorphous Sediment Not Reportable 04/26/23 21:39 Urine Bacteria Trace /hpf (NONE) 04/26/23 21:39 Salicylates < 0.3 mg/dL (3-10) L 04/26/23 21:42 Urine Opiates Screen Negative ng/mL (Negative) 04/26/23 21:39 Acetaminophen < 5.0 ug/mL (10-30) L 04/26/23 21:42 Ur Barbiturates Screen Negative ng/mL (Negative) 04/26/23 21:39 Ur Phencyclidine Scrn Negative ng/mL (Negative) 04/26/23 21:39 Ur Amphetamines Screen Negative ng/mL (Negative) 04/26/23 21:39 U Benzodiazepines Scrn Negative ng/mL (Negative) 04/26/23 21:39 Urine Cocaine Screen Negative ng/mL (Negative) 04/26/23 21:39 U Marijuana (THC) Screen Negative ng/mL (Negative) 04/26/23 21:39 Ethyl Alcohol < 10 mg/dL (0-10) 04/26/23 21:42 Discharge Plan Discharge Patient Disposition: Admitted As Inpatient Admit Provider: Prosper Senior Clinical Impression: Type 1 diabetes, Uncontrolled hypertension, Acute psychosis, Suicidal ideation Condition: Stable Coding Level of Care Code ED Library Cataloging Technician for Bessie Gaxiola
[2023-04-26] MEDS: lisinopril 20 mg Tablet PO (23:05)
[2023-04-26] MEDS: amlodipine 10 mg Tablet PO (23:05)
[2023-04-26] MEDS: ketorolac 30 mg/mL INJ 15 MG IVP (23:06)
[2023-04-26] MEDS: labetalol 5 mg/mL SDV 20mL 20 MG IVP (23:07)
[2023-04-26] MEDS: nicotine 21 mg Patch 1 PATCH TRANSDERMA (23:08)
[2023-04-27] MEDS: insulin glargine 100 units/1 mL 20 UNIT SUBCUT (00:15)
[2023-04-27] MEDS: tizanidine 4 mg Tablet PO (00:57)
[2023-04-27 01:00] VITALS: BP 159/91; PULSE 83; RESP 18; TEMP 36.7; O2SAT 98
[2023-04-27 02:02] VITALS: BP 150/90; PULSE 80; RESP 17; TEMP 36.6; O2SAT 97
[2023-04-27] MEDS: trazodone 50 mg Tablet PO ×2 (02:22→20:21)
[2023-04-27] MEDS: hyDROXYzine 25 mg Capsule 50 MG PO (02:22)
[2023-04-27] MEDS: nicotine 4 mg lozenge MUCOUS MEM ×4 (02:47→20:21)
[2023-04-27 03:50] LABS: Glucose Point of Care 281 mg/dL (70-110)
[2023-04-27 06:00] VITALS: BP 136/74; PULSE 75; RESP 20; O2SAT 98
[2023-04-27 07:52] LABS: Glucose Point of Care 398 mg/dL (70-110)
[2023-04-27] MEDS: lisinopril 20 mg Tablet PO (08:04)
[2023-04-27] MEDS: insulin lispro 100 unit/1 mL SUBCUT ×4 (08:04→20:23)
[2023-04-27] MEDS: amlodipine 10 mg Tablet PO (08:04)
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
[2023-04-27 12:09] LABS: Glucose Point of Care 395 mg/dL (70-110)
[2023-04-27] MEDS: ARIPiprazole 10 mg Tablet 5 MG PO (13:10)
[2023-04-27 14:00] VITALS: BP 130/74; PULSE 81; RESP 18; TEMP 36.7; O2SAT 95
--- NOTE | 2023-04-27 15:23 | PC.NURSE ---
NURSE WENT INTO PT ROOM AND FOUND 2 AND A HALF NICOTINE LOZENGES. PT WAS EDUCATED THAT PT CANNOT HAVE MULTIPLE LOZENGES AND 1AND HALF LOZENGES WERE REMOVED FROM PT AND PT PUT OTHER ONE IN HIS MOUTH. THIS NURSE WILL CHECK HIS ROOM PRIOR TO GIVING ADDITIONAL NICOTINE LOZENGES OR GUM.
[2023-04-27] MEDS: acetaminophen 325 mg Tablet 650 MG PO (17:29)
[2023-04-27 17:37] LABS: Glucose Point of Care 459 mg/dL (70-110)
--- NOTE | 2023-04-27 18:29 | P.CONIM_ITS ---
Providers/Reason For Consult Consulting Physician/Specialty*: Internal Medicine Reason for Consult*: Hyperglycemia Attending Physician: Prosper Senior MD Primary Care Provider: LAWANDA Garcia History of Present Illness History of Present Illness Hunter San is a 32 year old male with a past medical history significant for hypertension, hyperlipidemia, and type 1 diabetes mellitus who presented on 04/26/2023 with psychosis. Patient admitted to NPU. Medicine consulted for severe hyperglycemia. Patient reports his home blood sugars around 4-500s recently. Patient follows in endocrinology clinic and was just recently being treated with insulin pump. He denies nausea, emesis, fevers or chills. Review of Systems Narrative: A complete review of systems was obtained and is negative except as stated in HPI. Medications/Allergies Home Medications Medication Instructions Recorded Confirmed Last Taken Type insulin pump cartridge,automated #1 ea 04/25/22 03/15/23 Unknown Rx dose,BT with controller subcutaneous (Omnipod 5 G6 Intro Kit (Gen 5) subcutaneous cartridge with controller) blood-glucose meter,continuous #1 ea 07/20/22 03/15/23 Unknown Rx (Dexcom G6 Load Test Mechanic) blood-glucose transmitter (Dexcom #1 ea 07/20/22 03/15/23 Unknown Rx G6 Transmitter device) Intraoperative Neuromonitoring #1 ea 08/22/22 03/15/23 Unknown Rx prazosin 2 mg capsule (Minipress) 4 mg PO BEDTIME 08/28/22 04/27/23 Unknown History insulin detemir U-100 100 unit/mL 20 unit (0.2 mL) SUBCUT QPM #15 mL 08/29/22 03/15/23 Unknown Rx (3 mL) subcutaneous pen (Levemir FlexTouch U-100 Insulin) propranolol 20 mg tablet 20 mg PO TID 30 days #90 tabs 08/29/22 04/27/23 Unknown Rx syringe with needle 1 mL 25 gauge #50 ea 10/03/22 03/15/23 Unknown Rx x 5/8 (Monoject TB Safety Syringe) insulin pump cart,automated,BT #30 ea 11/28/22 03/15/23 Unknown Rx (Omnipod 5 G6 Pods (Gen 5) subcutaneous cartridge) blood-glucose sensor (Dexcom G6 #9 ea 12/06/22 03/15/23 Unknown Rx Sensor device) insulin aspart U-100 100 unit/mL 10 unit (0.1 mL) SUBCUT .tidac 60 01/07/23 03/15/23 Unknown Rx (3 mL) subcutaneous pen (Novolog days #24 mL FlexPen U-100 Insulin aspart) insulin glargine 100 unit/mL (3 10 unit (0.1 mL) SUBCUT BID #15 mL 01/07/23 03/15/23 Unknown Rx mL) subcutaneous pen (Lantus Solostar U-100 Insulin) insulin aspart U-100 100 unit/mL See Rx Instructions .Route 01/24/23 03/15/23 Unknown Rx subcutaneous solution (Novolog .COMPLEX 90 days #60 mL U-100 Insulin aspart) lisinopril 40 mg tablet (Zestril) 40 mg PO DAILY 04/27/23 04/27/23 Unknown History mirtazapine 30 mg tablet (Remeron) 30 mg PO BEDTIME 04/27/23 04/27/23 Unknown History varenicline 1 mg tablet (Chantix 1 mg PO BID 04/27/23 04/27/23 Unknown History Continuing Month Box) Allergies Allergy/AdvReac Type Severity Reaction Status Date / Time No Known Allergies Allergy Verified 03/15/23 08:37 Current Medications Generic Name Dose Route Start Last Admin Trade Name Freq PRN Reason Stop Dose Admin Acetaminophen 650 mg 04/27/23 01:58 04/27/23 17:29 Acetaminophen 325 Mg Tablet PO 650 mg Q4H PRN Administration MILD PAIN Amlodipine Besylate 10 mg 04/27/23 09:00 04/27/23 08:04 Amlodipine 10 Mg Tablet PO 10 mg DAILY LILI Administration Hydroxyzine Pamoate 50 mg 04/27/23 01:58 04/27/23 02:22 Hydroxyzine 25 Mg Capsule PO 50 mg Q6H PRN Administration ANXIETY Insulin Human Lispro 0 unit 04/27/23 08:00 04/27/23 17:47 Insulin Lispro 100 Unit/1 Ml SUBCUT 16 unit WM&BEDTIME LILI Administration Protocol Lisinopril 20 mg 04/27/23 09:00 04/27/23 08:04 Lisinopril 20 Mg Tablet PO 20 mg DAILY LILI Administration Nicotine Polacrilex 4 mg 04/27/23 02:23 04/27/23 13:10 Nicotine 4 Mg Lozenge MUCOUS MEM 4 mg Q2H PRN Administration NICOTINE CRAVINGS Trazodone HCl 50 mg 04/27/23 01:58 04/27/23 02:22 Trazodone 50 Mg Tablet PO 50 mg BEDTIME PRN Administration SLEEP PFSH Acute PFSH: Medical History Methamphetamine abuse Type 1 diabetes Uncontrolled hypertension Family History Other CAD (coronary artery disease) Hypertension Stroke Social History Smoking and tobacco status: current every day smoker Alcohol intake: former Substance/Drug Use: former Date of last use: Amphetamines more than 62 days ago Caregiver/support person: Yes Lives independently: Yes Household members: other Current occupation: [employer] Vitals/I&O/Wt Last Vital Signs Temp 98.0 F 04/27/23 14:00 Pulse 81 04/27/23 14:00 Resp 18 04/27/23 14:00 BP 130/74 04/27/23 14:00 Pulse Ox 95 04/27/23 14:00 O2 Del Method Room Air 04/27/23 14:00 04/27/23 04/27/23 04/27/23 06:59 14:59 22:59 Intake Total 0 / 0 Balance 0 / 0 Weight last 48 hrs Weight 106.594 kg Physical Exam Narrative: General: Patient is awake. Alert. Lying in bed. Head: Normocephalic. Atraumatic. EOM intact. Neck: No JVD. Cardiovascular: RRR. No gallops. No murmurs. No peripheral edema. Lungs: Clear to auscultation, no use of accessory muscles, no crackles or wheezes. Skin: No jaundice. No rashes. Abdomen: Normal bowel sounds, abdomen soft and nontender. Extremities: No cyanosis or clubbing. Musculoskeletal: No swollen or erythematous joints. Neurological: Moves all 4 extremities. No myoclonus. Data 04/26/23 21:42 04/26/23 21:42 A&P Assessment and plan (1) Type 1 diabetes: Uncontrolled type 1 diabetes mellitus with severe hyperglycemia Start Lantus 20 units twice daily Start lispro 8 units 3 times daily AC Sliding-scale insulin correction Avoid hypoglycemia Ideally would be back on his insulin pump (2) Uncontrolled hypertension: Blood pressure remains uncontrolled Continue lisinopril Start amlodipine (3) Acute psychosis: Per psychiatry (4) Suicidal ideation: Per psychiatry Plan Thank you for this consultation. Consult Attestations Medical Necessity Statement: Per psychiatry Coding Level of Care Code Acute Code for Chg Fwd Diagnoses Type 1 diabetes E10.9 Uncontrolled hypertension I10 Acute psychosis F23 Suicidal ideation R45.851
[2023-04-27] MEDS: haloperidol 5 mg Tablet PO (19:39)
[2023-04-27 20:11] LABS: Glucose Point of Care 412 mg/dL (70-110)
[2023-04-27 20:14] VITALS: BP 159/80; PULSE 77; RESP 20; TEMP 36.9; O2SAT 96
[2023-04-27] MEDS: insulin glargine 100 units/1 mL 30 UNIT SUBCUT (20:22)
[2023-04-28 06:00] VITALS: BP 167/101; PULSE 76; RESP 18; O2SAT 98
[2023-04-28] MEDS: insulin glargine 100 units/1 mL 30 UNIT SUBCUT (06:33)
[2023-04-28 07:55] LABS: Glucose Point of Care 457 mg/dL (70-110)
[2023-04-28] MEDS: insulin lispro 100 unit/1 mL SUBCUT ×3 (08:10→20:21)
[2023-04-28] MEDS: insulin lispro 100 unit/1 mL 20 UNIT SUBCUT ×2 (08:10→12:28)
[2023-04-28] MEDS: ARIPiprazole 10 mg Tablet PO (08:11)
[2023-04-28] MEDS: acetaminophen 325 mg Tablet 650 MG PO ×3 (08:11→20:22)
[2023-04-28] MEDS: amlodipine 10 mg Tablet PO (08:11)
[2023-04-28] MEDS: lisinopril 20 mg Tablet PO (08:11)
[2023-04-28] MEDS: nicotine 4 mg lozenge MUCOUS MEM ×5 (08:35→19:46)
--- NOTE | 2023-04-28 08:35 | PC.NURSE ---
SHIFT ASSESSMENT DENIES SI/HI BUT STATED HE HEARING VOICES THIS MORNING, MED COMPLIANT, SMILING IN CONVERSATION WITH STAFF
[2023-04-28 12:00] LABS: Glucose Point of Care 101 mg/dL (70-110)
--- NOTE | 2023-04-28 13:16 | W.PM.NPUPNS ---
Subjective NPU Subjective: Patient presented today reporting that he is doing fine. He denies any major improvements but denied any side effects or problems from the initiation of the Abilify. He reports that he also did have some as needed Haldol later in the day that he reports was helpful in his management of his paranoia and anxiety. We talked about hoping that the Abilify ultimately provided the same or better relief long-term. He denied any new or pressing issues outside of his psychosis. Mental Status Exam MSE Comments: This is an overweight versus obese white male, in hospital scrubs, with limited grooming and eye contact. No abnormal movements except for mild psychomotor retardation. Cooperative with exam in mild distress. Speech was slightly decreased rate and normal volume. Mood described as nervous because I?m seeking help, but just trying to catch up on sleep and rest; affect congruent. Thought process, organized. Thought content: patient denied any current suicidal or homicidal ideation, he endorses paranoia and some guardedness was noted, patient endorses auditory hallucinations and denies visual hallucinations. Attention, concentration, and memory appeared intact, but none were formally tested. He was alert and oriented times three. Insight and judgment are fair. Impulse control is fair. Vitals/I&O/Wt Last Vital Signs Temp 98.4 F 04/27/23 20:14 Pulse 76 04/28/23 06:00 Resp 18 04/28/23 06:00 BP 167/101 04/28/23 06:00 Pulse Ox 98 04/28/23 06:00 O2 Del Method Room Air 04/27/23 20:14 Weight last 48 hrs Weight 106.594 kg Weight 106.594 kg Data NPU 04/26/23 21:42 04/26/23 21:42 Micro: Microbiology 04/26/23 21:39 Urine Culture - Final Urine,Clean Catch Microbiology 04/26/23 21:39 Urine,Clean Catch Urine Culture - Final A&P Assessment and plan (1) Acute psychosis: (2) Suicidal ideation: (3) Uncontrolled hypertension: (4) Type 1 diabetes: (5) Neuropathic pain: (6) Hyperlipemia, mixed: (7) Status post lumbar spinal fusion: Plan This is a 32-year-old male, who presents today reporting a desire to get help with hearing voices and with depression and suicidal thoughts, and reporting he has a plan to go to drug rehabilitation after hospitalization. 1. Initiate Abilify 5 mg today and 10 mg in the morning. 2. Encourage individual, group, and milieu therapy. 3. Continue q-15-minute checks for safety. 4. Recommend sober living treatment at the highest level of care to which the patient is willing to commit. Coordinate with [facility]. 5. Appreciate hospitalist input on continued significant elevation of his blood sugar from his diabetes. Involuntary Hold Information 96 Hour Hold: 96 Hour Involuntary Admission: No Attestations NPU Medical Necessity Statement*: Inpatient hospitalization is medically necessary and the clinically appropriate intervention, at this time. We will monitor medications and make changes as indicated. Likely length of stay is 4-6 days. Coding Level of Care Code Acute Code for [facility] Fwd Diagnoses Acute psychosis F23 Suicidal ideation R45.851 Uncontrolled hypertension I10 Type 1 diabetes E10.9 Neuropathic pain M79.2 Hyperlipemia, mixed E78.2 Status post lumbar spinal fusion Z98.1
[2023-04-28 13:46] VITALS: BP 152/70; PULSE 79; RESP 16; TEMP 36.8; O2SAT 97
[2023-04-28 14:19] LABS: Estmated Average Glucose 369; Hemoglobin A1C 14.5 % (4.0-6.0)
[2023-04-28 17:11] LABS: Glucose Point of Care 165 mg/dL (70-110)
[2023-04-28] MEDS: insulin lispro 100 unit/1 mL 8 UNIT SUBCUT (17:42)
[2023-04-28 19:54] LABS: Glucose Point of Care 267 mg/dL (70-110)
[2023-04-28 19:56] VITALS: BP 121/70; PULSE 92; RESP 18; TEMP 36.8; O2SAT 97
[2023-04-28] MEDS: haloperidol 5 mg Tablet PO (20:18)
[2023-04-28] MEDS: insulin glargine 100 units/1 mL 20 UNIT SUBCUT (20:21)
[2023-04-28] MEDS: trazodone 50 mg Tablet PO (20:24)
[2023-04-29 06:00] VITALS: BP 145/88; PULSE 81; RESP 18; TEMP 36.5; O2SAT 97
[2023-04-29 07:34] LABS: Glucose Point of Care 261 mg/dL (70-110)
[2023-04-29] MEDS: insulin glargine 100 units/1 mL 20 UNIT SUBCUT ×2 (07:38→20:06)
[2023-04-29] MEDS: amlodipine 5 mg Tablet PO (07:55)
[2023-04-29] MEDS: amlodipine 10 mg Tablet PO (07:55)
[2023-04-29] MEDS: acetaminophen 325 mg Tablet 650 MG PO ×2 (07:55→17:30)
[2023-04-29] MEDS: nicotine 4 mg lozenge MUCOUS MEM ×6 (07:56→20:09)
[2023-04-29] MEDS: ARIPiprazole 10 mg Tablet PO (07:56)
[2023-04-29] MEDS: lisinopril 20 mg Tablet PO (07:56)
[2023-04-29] MEDS: insulin lispro 100 unit/1 mL SUBCUT ×4 (08:22→20:21)
[2023-04-29] MEDS: insulin lispro 100 unit/1 mL 8 UNIT SUBCUT ×3 (08:23→18:12)
[2023-04-29 11:44] LABS: Glucose Point of Care 163 mg/dL (70-110)
[2023-04-29 13:24] VITALS: BP 123/69; PULSE 79; RESP 15; TEMP 36.9; O2SAT 98
[2023-04-29] MEDS: ibuprofen 600 mg Tablet PO (14:16)
[2023-04-29 17:24] LABS: Glucose Point of Care 314 mg/dL (70-110)
--- NOTE | 2023-04-29 17:34 | W.PM.NPUPNS ---
Subjective NPU Subjective: Patient presented today reporting that he is getting a little nervous about moving on to rehab because he is afraid the longer he takes the less likelihood he will be able to maintain/keep his job. He reports that the Abilify is working really well and that he is optimistic that that combined with his sobriety work at [facility] [employer] should get him back in the right direction. We discussed the likelihood of discharge in the next 48 hours. Mental Status Exam MSE Comments: This is an overweight versus obese white male, in hospital scrubs, with improving grooming and eye contact. No abnormal movements except for mild psychomotor retardation. Cooperative with exam in mild distress. Speech was slightly decreased rate and normal volume. Mood described as a little better; affect congruent. Thought process, organized. Thought content: patient denied any current suicidal or homicidal ideation, he endorses paranoia and some guardedness was noted, patient endorses auditory hallucinations and denies visual hallucinations. Attention, concentration, and memory appeared intact, but none were formally tested. He was alert and oriented times three. Insight and judgment are fair. Impulse control is fair. Vitals/I&O/Wt Last Vital Signs Temp 98.4 F 04/29/23 19:50 Pulse 96 04/29/23 19:50 Resp 18 04/29/23 19:50 BP 160/89 04/29/23 19:50 Pulse Ox 98 04/29/23 19:50 O2 Del Method Room Air 04/27/23 20:14 Weight last 48 hrs Weight 106.594 kg Data NPU 04/26/23 21:42 04/26/23 21:42 A&P Assessment and plan (1) Acute psychosis: (2) Suicidal ideation: (3) Uncontrolled hypertension: (4) Type 1 diabetes: (5) Neuropathic pain: (6) Hyperlipemia, mixed: (7) Status post lumbar spinal fusion: Plan This is a 32-year-old male, who presents today reporting a desire to get help with hearing voices and with depression and suicidal thoughts, and reporting he has a plan to go to drug rehabilitation after hospitalization. 1. Initiated Abilify 5 mg yesterday and 10 mg this morning. 2. Encourage individual, group, and milieu therapy. 3. Continue q-15-minute checks for safety. 4. Recommend sober living treatment at the highest level of care to which the patient is willing to commit. Coordinate with [facility]. Likely discharge in the next 48 hours. 5. Appreciate hospitalist input on continued significant elevation of his blood sugar from his diabetes. Involuntary Hold Information 96 Hour Hold: 96 Hour Involuntary Admission: No Attestations NPU Medical Necessity Statement*: Inpatient hospitalization is medically necessary and the clinically appropriate intervention, at this time. We will monitor medications and make changes as indicated. Likely length of stay is 1-3 days. Coding Level of Care Code Acute Code for [facility] Fwd Diagnoses Acute psychosis F23 Suicidal ideation R45.851 Uncontrolled hypertension I10 Type 1 diabetes E10.9 Neuropathic pain M79.2 Hyperlipemia, mixed E78.2 Status post lumbar spinal fusion Z98.1
--- NOTE | 2023-04-29 19:06 | PM.PN ---
Subjective Subjective: Patient was seen and examined this morning, blood sugar control appears to be improving, continue to monitor fingerstick glucose for now. Medications: Medication Review Details: Generic Name Dose Route Start Last Admin Trade Name Enrico PRN Reason Stop Dose Admin Acetaminophen 650 mg 04/27/23 01:58 04/29/23 17:30 Acetaminophen 32 5 Mg Tablet PO 650 mg Q4H PRN Administration MILD PAIN Amlodipine Besylat e 10 mg 04/27/23 09:00 04/29/23 07:55 Amlodipine 10 Mg Tablet PO 10 mg DAILY LILI Administration Amlodipine Besylat e 5 mg 04/29/23 09:00 04/29/23 07:55 Amlodipine 5 Mg Tablet PO 5 mg DAILY LILI Administration Aripiprazole 10 mg 04/28/23 09:00 04/29/23 07:56 Aripiprazole 10 Mg Tablet PO 10 mg DAILY LILI Administration Haloperidol 5 mg 04/27/23 01:58 04/28/23 20:18 Haloperidol 5 Mg Tablet PO 5 mg Q4H PRN Administration AGITATION Hydroxyzine Pamoat e 50 mg 04/27/23 01:58 04/27/23 02:22 Hydroxyzine 25 M g Capsule PO 50 mg Q6H PRN Administration ANXIETY Ibuprofen 600 mg 04/29/23 12:20 04/29/23 14:16 Ibuprofen 600 Mg Tablet PO 600 mg Q6H PRN Administration MODERATE PAIN Insulin Glargine 20 unit 04/28/23 20:00 04/29/23 07:38 Insulin Glargine 100 Units/1 Ml SUBCUT 20 unit Q12H LILI Administration Insulin Human Lisp ro 0 unit 04/27/23 08:00 04/29/23 18:12 Insulin Lispro 1 00 Unit/1 Ml SUBCUT 12 unit WM&BEDTIME LILI Administration Protocol Insulin Human Lisp ro 8 unit 04/28/23 17:00 04/29/23 18:12 Insulin Lispro 1 00 Unit/1 Ml SUBCUT 8 unit TIDAC LILI Administration Lisinopril 20 mg 04/27/23 09:00 04/29/23 07:56 Lisinopril 20 Mg Tablet PO 20 mg DAILY LILI Administration Nicotine Polacrile x 4 mg 04/27/23 02:23 04/29/23 17:29 Nicotine 4 Mg Lo zenge MUCOUS MEM 4 mg Q2H PRN Administration NICOTINE CRAVINGS Trazodone HCl 50 mg 04/27/23 01:58 04/28/23 20:24 Trazodone 50 Mg Tablet PO 50 mg BEDTIME PRN Administration SLEEP Vitals/I&O/Wt Last Vital Signs Temp 98.4 F 04/29/23 13:24 Pulse 79 04/29/23 13:24 Resp 15 04/29/23 13:24 BP 123/69 04/29/23 13:24 Pulse Ox 98 04/29/23 13:24 O2 Del Method Room Air 04/27/23 20:14 Weight last 48 hrs Weight 106.594 kg Physical Exam HENMT: COMMON NORMALS: normocephalic, atraumatic, hearing grossly normal bilaterally and external ears normal HEAD & SCALP: normocephalic and atraumatic EXTERNAL EAR: Yes external ears normal Eye: COMMON NORMALS: no scleral icterus GENERAL EYE: appearance normal, both eyes and all related structures Chest: COMMONS NORMALS: normal inspection of the chest and normal palpation of entire chest wall CHEST: Yes Symmetrical chest wall rise Resp: COMMON NORMALS: normal respiratory effort, No retractions, No use of accessory muscles and clear to auscultation bilaterally EFFORT & INSPECTION: Yes symmetric chest movement AUSCULTATION: clear to auscultation bilaterally Cardio: COMMON NORMALS: regular rate, regular rhythm, S1 normal heart sound present, S2 normal heart sound present, No gallops present (Cardio), No murmurs present (Cardio), No rub (Cardio) and Peripheral pulses 2+ throughout RATE: regular rate RHYTHM: regular rhythm HEART SOUNDS: S1 normal heart sound present and S2 normal heart sound present PERIPHERAL PULSES: Peripheral pulses 2+ throughout GI: COMMON NORMALS: Normal to inspection, nondistended, normoactive bowel sounds present, Soft to palpation, non-tender, No hepatosplenomegaly present and no masses AUSCULTATION: Yes normoactive bowel sounds PALPATION: Yes Soft to palpation and Yes No hepatosplenomegaly present RECTAL EXAM: Yes deferred Extremity: COMMON NORMALS: no clubbing, cyanosis or edema and no pedal edema Data 04/26/23 21:42 04/26/23 21:42 A&P Assessment and plan (1) Type 1 diabetes: Uncontrolled type 1 diabetes: HbA1c:14.5 Patient is on insulin pump at home, sees Dr. Webb as outpatient Currently he is on Lantus 20 units subcu at every 12 hours 8 u lispro sc TIDAC as well as sliding scale insulin Monitor fingerstick glucose (2) Uncontrolled hypertension: Amlodipine 10 mg p.o. daily Lisinopril 20 mg p.o. daily Goal blood pressure:<130/80 Plan Per primary team Attestations Medical Necessity Statement*: Per primary team Coding Level of Care Code Acute Code for [facility] Fwd Diagnoses Type 1 diabetes E10.9 Uncontrolled hypertension I10
[2023-04-29 19:50] VITALS: BP 160/89; PULSE 96; RESP 18; TEMP 36.9; O2SAT 98
[2023-04-29 20:09] LABS: Glucose Point of Care 324 mg/dL (70-110)
[2023-04-29] MEDS: haloperidol 5 mg Tablet PO (20:09)
[2023-04-30] MEDS: ibuprofen 600 mg Tablet PO ×2 (04:29→11:05)
[2023-04-30 06:00] VITALS: BP 145/80; PULSE 75; RESP 16; O2SAT 99
[2023-04-30 08:06] LABS: Glucose Point of Care 254 mg/dL (70-110)
[2023-04-30] MEDS: amlodipine 10 mg Tablet PO (08:09)
[2023-04-30] MEDS: amlodipine 5 mg Tablet PO (08:09)
[2023-04-30] MEDS: ARIPiprazole 10 mg Tablet PO (08:09)
[2023-04-30] MEDS: lisinopril 20 mg Tablet PO (08:09)
[2023-04-30] MEDS: nicotine 4 mg lozenge MUCOUS MEM ×3 (08:12→14:02)
[2023-04-30] MEDS: insulin lispro 100 unit/1 mL SUBCUT ×2 (08:20→12:17)
[2023-04-30] MEDS: insulin glargine 100 units/1 mL 20 UNIT SUBCUT (08:20)
[2023-04-30] MEDS: insulin lispro 100 unit/1 mL 8 UNIT SUBCUT ×2 (08:21→12:17)
[2023-04-30 12:02] LABS: Glucose Point of Care 208 mg/dL (70-110)
--- NOTE | 2023-04-30 12:30 | P.PN_ITS ---
Subjective Subjective: No acute events overnight. Medications: Medication Review Details: Generic Name Dose Route Start Last Admin Trade Name Rafaelq PRN Reason Stop Dose Admin Acetaminophen 650 mg 04/27/23 01:58 04/29/23 17:30 Acetaminophen 32 5 Mg Tablet PO 650 mg Q4H PRN Administration MILD PAIN Amlodipine Besylat e 10 mg 04/27/23 09:00 04/29/23 07:55 Amlodipine 10 Mg Tablet PO 10 mg DAILY LILI Administration Amlodipine Besylat e 5 mg 04/29/23 09:00 04/29/23 07:55 Amlodipine 5 Mg Tablet PO 5 mg DAILY LILI Administration Aripiprazole 10 mg 04/28/23 09:00 04/29/23 07:56 Aripiprazole 10 Mg Tablet PO 10 mg DAILY LILI Administration Haloperidol 5 mg 04/27/23 01:58 04/28/23 20:18 Haloperidol 5 Mg Tablet PO 5 mg Q4H PRN Administration AGITATION Hydroxyzine Pamoat e 50 mg 04/27/23 01:58 04/27/23 02:22 Hydroxyzine 25 M g Capsule PO 50 mg Q6H PRN Administration ANXIETY Ibuprofen 600 mg 04/29/23 12:20 04/29/23 14:16 Ibuprofen 600 Mg Tablet PO 600 mg Q6H PRN Administration MODERATE PAIN Insulin Glargine 20 unit 04/28/23 20:00 04/29/23 07:38 Insulin Glargine 100 Units/1 Ml SUBCUT 20 unit Q12H LILI Administration Insulin Human Lisp ro 0 unit 04/27/23 08:00 04/29/23 18:12 Insulin Lispro 1 00 Unit/1 Ml SUBCUT 12 unit WM&BEDTIME LILI Administration Protocol Insulin Human Lisp ro 8 unit 04/28/23 17:00 04/29/23 18:12 Insulin Lispro 1 00 Unit/1 Ml SUBCUT 8 unit TIDAC LILI Administration Lisinopril 20 mg 04/27/23 09:00 04/29/23 07:56 Lisinopril 20 Mg Tablet PO 20 mg DAILY LILI Administration Nicotine Polacrile x 4 mg 04/27/23 02:23 04/29/23 17:29 Nicotine 4 Mg Lo zenge MUCOUS MEM 4 mg Q2H PRN Administration NICOTINE CRAVINGS Trazodone HCl 50 mg 04/27/23 01:58 04/28/23 20:24 Trazodone 50 Mg Tablet PO 50 mg BEDTIME PRN Administration SLEEP Vitals/I&O/Wt Last Vital Signs Temp 98.4 F 04/29/23 19:50 Pulse 75 04/30/23 06:00 Resp 16 04/30/23 06:00 BP 145/80 04/30/23 06:00 Pulse Ox 99 04/30/23 06:00 O2 Del Method Room Air 04/27/23 20:14 Physical Exam HENMT: COMMON NORMALS: normocephalic, atraumatic, hearing grossly normal bilaterally and external ears normal HEAD & SCALP: normocephalic and atraumatic EXTERNAL EAR: Yes external ears normal Eye: COMMON NORMALS: no scleral icterus GENERAL EYE: appearance normal, both eyes and all related structures Chest: COMMONS NORMALS: normal inspection of the chest and normal palpation of entire chest wall CHEST: Yes Symmetrical chest wall rise Resp: COMMON NORMALS: normal respiratory effort, No retractions, No use of accessory muscles and clear to auscultation bilaterally EFFORT & INSPECTION: Yes symmetric chest movement AUSCULTATION: clear to auscultation bilaterally Cardio: COMMON NORMALS: regular rate, regular rhythm, S1 normal heart sound present, S2 normal heart sound present, No gallops present (Cardio), No murmurs present (Cardio), No rub (Cardio) and Peripheral pulses 2+ throughout RATE: regular rate RHYTHM: regular rhythm HEART SOUNDS: S1 normal heart sound present and S2 normal heart sound present PERIPHERAL PULSES: Peripheral pulses 2+ throughout GI: COMMON NORMALS: Normal to inspection, nondistended, normoactive bowel sounds present, Soft to palpation, non-tender, No hepatosplenomegaly present and no masses AUSCULTATION: Yes normoactive bowel sounds PALPATION: Yes Soft to palpation and Yes No hepatosplenomegaly present RECTAL EXAM: Yes deferred Extremity: COMMON NORMALS: no clubbing, cyanosis or edema and no pedal edema Data 04/26/23 21:42 04/26/23 21:42 A&P Assessment and plan (1) Type 1 diabetes: Uncontrolled type 1 diabetes: HbA1c:14.5 Patient is on insulin pump at home, sees Dr. Webb as outpatient Current plan is to discharge him on Levemir 20 units subcu twice daily, as well as NovoLog 15 units subcu TIADAC. He will continue to follow endocrine as outpatient. (2) Uncontrolled hypertension: Amlodipine 10 mg p.o. daily Lisinopril 20 mg p.o. daily Goal blood pressure:<130/80 Plan Per primary team Attestations Medical Necessity Statement*: Per primary Coding Level of Care Code Acute Code for [facility] Fwd Diagnoses Type 1 diabetes E10.9 Uncontrolled hypertension I10
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
[2023-04-30 13:00] VITALS: BP 145/80; PULSE 75; RESP 16; TEMP 36.9; O2SAT 99
[2023-04-30 13:43] VITALS: BP 134/76; PULSE 85; RESP 16; TEMP 36.8; O2SAT 98
[2023-04-30] MEDS: hyDROXYzine 25 mg Capsule 50 MG PO (14:13)
--- NOTE | 2023-04-30 14:13 | PC.NURSE ---
Patient reporting anxiety 05/23. Patietn anxious about leaving the unit and returning to [facility]. This nurse attempted to decrease the patient's anxiety, but was unsuccesful . Administered 50mg Vistaril to patient.
== END 2023-04-30 14:57 | disposition home or self-care (01) | DRG 885 ==
LOC: ER 23:51 → NP 04-27 02:19
PROVIDERS: Internal Medicine; Admitting Provider Psychiatry & Neurology Psychiatry; Emergency Provider Emergency Medicine; PCP Nurse Practitioner Family; Visit Provider Psychiatry & Neurology Psychiatry
DX: F22 Delusional disorders (principal); R45.851 Suicidal ideations; I10 Essential (primary) hypertension; F17.210 Nicotine dependence, cigarettes, uncomplicated; E10.65 Type 1 diabetes mellitus with hyperglycemia; Z98.890 Other specified postprocedural states; Z91.128 Patient's intentional underdosing of medication regimen for other reason; Z62.810 Personal history of physical and sexual abuse in childhood; Z62.811 Personal history of psychological abuse in childhood; F32.A Depression, unspecified; F15.10 Other stimulant abuse, uncomplicated; E78.2 Mixed hyperlipidemia; Z81.8 Family history of other mental and behavioral disorders; Z96.41 Presence of insulin pump (external) (internal); Z98.1 Arthrodesis status; E10.40 Type 1 diabetes mellitus with diabetic neuropathy, unspecified
CPT/HCPCS: 36415; 36416; 80053; 80306; 80307; 81001; 82962; 83036; 85025; 87086; 96372; 96374; 96375; 97150; 97165; 99238; 99285; J1815; J1885; J3490; J7030

== ENCOUNTER 2023-09-16 06:57 | Emergency (ER) | payer MEDICAID, SELFPAY ==
[2023-09-16 07:01] VITALS: BP 166/102; PULSE 91; RESP 18; TEMP 36.7; O2SAT 98; BMI 28.8
[2023-09-16 07:06] VITALS: BP 166/102; PULSE 91; RESP 18; O2SAT 98
--- NOTE | 2023-09-16 07:15 | ED_ITS ---
HPI - Back Pain/Injury General: Chief Complaint: Back Pain/Injury Stated Complaint: back pain/injury Time Seen by Provider: 09/16/23 07:13 Source: patient Mode of arrival: ambulatory History of Present Illness: 32-year-old male presents to the emergen cy room with complaint of low back pain. Patient states he slipped and had a ground-level fall. He had a popping sensation in his low back. He has worsening pain down his right leg. Patient has had multiple back surgeries in the past including revision last year at multiple levels. He has not had any fecal incontinence or urinary retention. No saddle paresthesias. No other trauma. MD elicited complaint: back pain Pertinent past history: prior back pain and back surgery Severity: moderate Location: lumbar spine Radiation: right upper leg and right leg below the knee Exacerbating factors: movement, sitting upright and walking Relieving factors: supine Context: fall Associated symptoms: Deny abdominal pain, arthralgias, chills, change in bowel habits, difficulty walking, dysuria, fatigue, fecal incontinence, fever(s), hematuria, myalgias, nausea, numbness, syncope, tingling/numbness/burning, urinary frequency, urinary urgency, vomiting or weakness Work related injury: No Review of Systems Const: Denies: fever(s), chills or fatigue Card: Denies: chest pain or syncope Resp: Denies: dyspnea GI: Denies: abdominal pain, nausea, vomiting, fecal incontinence or change in bowel habits : Denies: dysuria, urinary frequency, urinary urgency or hematuria Musc: Denies: neck pain or back pain Skin/Breast: Denies: rash Neuro: Denies: difficulty walking [facility] ED PFSH: Medical History Waking at night short of breath Snoring Hypersomnia Insomnia Noncompliance w/medication treatment due to intermit use of medication Schizophrenia Psychiatric care Methamphetamine abuse Uncontrolled hypertension Type 1 diabetes Family History Other CAD (coronary artery disease) Hypertension Stroke Social History Smoking and tobacco/nicotine status: current every day tobacco/nicotine user Alcohol intake: former Substance/Drug Use: former Date of last use: Amphetamines more than 62 days ago Caregiver/support person: Yes Lives independently: Yes Household members: other Current occupation: [employer] Physical Exam Const: COMMON NORMALS: no acute distress GENERAL APPEARANCE: cooperative and comfortable ORIENTATION/CONSCIOUSNESS: Yes awake, Yes oriented to person, Yes oriented to place and Yes oriented to time HENMT: COMMON NORMALS: normocephalic, atraumatic and hearing grossly normal bilaterally HEAD & SCALP: normocephalic and atraumatic Resp: COMMON NORMALS: normal respiratory effort, No retractions, No use of accessory muscles and clear to auscultation bilaterally AUSCULTATION: clear to auscultation bilaterally Cardio: COMMON NORMALS: regular rate, regular rhythm and No murmurs present (Cardio) RATE: regular rate RHYTHM: regular rhythm GI: COMMON NORMALS: Soft to palpation and No hepatosplenomegaly present AUSCULTATION: Yes normoactive bowel sounds PALPATION: Yes Soft to palpation, No Tenderness to palpation present (GI), No Guarding due to palpation present (GI) and Yes No hepatosplenomegaly present Extremity: COMMON NORMALS: normal to inspection, capillary refill normal, no clubbing, cyanosis or edema, no calf tenderness and no pedal edema OTHER: Sensation on the lower extremities seems to be somewhat diminished but is equal bilaterally. Dorsum plantar flex strength 5 of 5 straight leg raising negative. Neurovascularly intact. Neuro: SENSORIUM/ORIENTATION: Yes oriented to person, Yes oriented to place and Yes oriented to time Skin: COMMON NORMALS: no rashes or lesions noted GENERAL SKIN EXAM: no rashes or lesions noted Course Vital Signs: Vital signs: Vital Signs Temperature 98.0 F 09/16/23 07:01 Pulse Rate 91 09/16/23 07:06 Respiratory Rate 18 09/16/23 07:06 Blood Pressure 166/102 09/16/23 07:06 Pulse Oximetry 98 09/16/23 07:06 Oxygen Delivery Me thod Room Air 09/16/23 07:06 MDM - Back Pain/Injury Medical Decision Making Fractured pedicle screw at L5 on his lumbar fusion appears new from September 2022. No significant displacement. We will discharge patient home with steroid taper and pain medications. Have him follow-up with Dr. Alba as soon as he is able. Medical Records I reviewed the patient's medical records. Labs I reviewed the patient's lab results. Radiology Impressions Lumbar Spine X-Ray 09/16/23 07:21 IMPRESSION: The right L5 pedicle screw is broken. All radiology interpretation(s) finalized by discharge Discharge Plan Discharge Patient Disposition: Home Clinical Impression: Status post lumbar spinal fusion, Failed orthopedic implant Condition: Stable Prescriptions: New hydrocodone-acetaminophen 5-325 mg tablet 1 tab PO Q6H PRN (Reason: pain) Qty: 10 0RF prednisone 20 mg tablet 20 mg PO TID Qty: 15 0RF Rx Instructions: 1 p.o. 3 times daily x3 days, 1 p.o. twice daily x2 days, 1 p.o. daily x2 days No Action (DME) Dexcom G6 Sensor Device See Rx Instructions .Route Qty: 9 3RF Rx Instructions: Change every 10 days. Levemir FlexPen 100 unit/mL (3 mL) insulin pen 20 unit SUBCUT BID 30 Days Qty: 15 1RF (DME) Dexcom G6 Transmitter Device See Rx Instructions .Route Qty: 1 3RF Rx Instructions: Change every 90 days. (DME) Dexcom G6 Warehouse Checker Misc See Rx Instructions .Route Qty: 1 0RF Rx Instructions: Check BS 4-6 times a day. nicotine (polacrilex) 4 mg lozenge 4 mg buccal Q8H PRN (Reason: nicotine cravings) Qty: 108 0RF (DME) Omnipod 5 G6 Intro Kit (Gen 5) Cartridge See Rx Instructions .Route Qty: 1 0RF Rx Instructions: As directed (DME) Intraoperative Neuromonitoring See Rx Instructions .Route .MEDSUPPLY Qty: 1 0RF Rx Instructions: As directed (DME) Omnipod 5 G6 Pods (Gen 5) Cartridge See Rx Instructions .Route Qty: 30 3RF Rx Instructions: changes pod once every day propranolol 40 mg tablet See Rx Instructions .ROUTE .COMPLEX Qty: 90 2RF Dose Instruction: TAKE TAKE ONE TABLET BY MOUTH TWICE A DAY AND MAY TAKE 1 MIDDAY FOR FOR ANXIETY Rx Instructions: TAKE ONE TABLET BY MOUTH TWICE A DAY AND MAY TAKE 1 MIDDAY FOR FOR ANXIETY NEEDED (DME) pen needle, diabetic [BD Ultra-Fine Micro Pen Needle] 32 gauge x 1/4 needle See Rx Instructions .ROUTE .MEDSUPPLY Qty: 100 3RF Rx Instructions: As directed (DME) insulin syringe-needle U-100 [BD Insulin Syringe Ultra-Fine] 1 mL 31 gauge x 5/16 syringe See Rx Instructions .ROUTE .COMPLEX Qty: 100 1RF Dose Instruction: DIRECTED Rx Instructions: DIRECTED (DME) Dexcom G7 Sensor Device See Rx Instructions .Route Qty: 9 1RF Rx Instructions: As directed (DME) Dexcom G7 Warehouse Checker Misc See Rx Instructions .Route Qty: 1 0RF Rx Instructions: As directed lisinopril 40 mg Tablet 40 mg PO QAM haloperidol 5 mg tablet 5 mg PO Q4H PRN (Reason: aggitation) amlodipine 10 mg tablet 10 mg PO QAM aripiprazole 10 mg tablet 10 mg PO DAILY PRN (Reason: unknown) Abilify Maintena 400 mg suspension,extended rel recon 400 mg IM Q28D Rx Instructions: please deliver 09/18/23 [facility] for pt injection clonidine HCl 0.1 mg tablet 0.1 mg PO BID PRN (Reason: Hypertension) Tylenol Ex Str Rapid Release 500 mg Tablet 7,500 - 10,000 mg PO Q6H PRN (Reason: Pain) Rx Instructions: PT STATES TAKES 15 TO 20 TABS AT ONE TIME baclofen 10 mg tablet 10 mg PO TID PRN (Reason: Muscle Spasm) hydroxyzine HCl 25 mg tablet 25 mg PO TID PRN (Reason: Anxiety) prazosin 2 mg capsule 4 mg PO BEDTIME trazodone 150 mg tablet 150 - 300 mg PO BEDTIME PRN (Reason: Sleep) Novolog FlexPen U-100 Insulin 100 unit/mL (3 mL) insulin pen See Rx Instructions .ROUTE .COMPLEX Rx Instructions: MODERATE SLIDING SCALE 10-30 UNITS THREE TIMES A DAY Discharge Orders: Discharge ED (Routine); Ordered 09/16/23 Ordered By: Adan Reed Referrals: Jason Ariza FNP [Primary Care Provider] - Discharge Diet: Usual diet Discharge Activity: Limit activity as instructed Patient Instructions: Opioid Safety, Pain Management Activity Restrictions/Additional Instructions: Thank you for choosing [facility] for your healthcare needs today. Please realize this is an emergency room and that we are providing you with a medical screening exam and this may not be complete and all inclusive of all the testing and or work up that you may need to determine your ailment or severity of your illness. It is very important that you follow up as instructed or that you return to the Emergency Department should you have concerns or if your condition changes or worsens in any way. You were seen today for back pain after a fall. There is a broken screw from your previous back surgery which is new compared to an x-ray from September 2022. It is impossible to know when this exactly happened. You are given steroids and pain medications to use for back discomfort. Follow-up with your back surgeon as soon as you are able. Avoid heavy lifting twisting and bending Coding Level of Care Code ED Radiology Orderly for Bessie Gaxiola
--- NOTE | 2023-09-16 07:21 | XRR_ITS ---
PROCEDURE INFORMATION: Exam: XR Lumbosacral Spine Exam date and time: 09/16/2023 7:58 AM Age: 32 years old Clinical indication: Injury or trauma; Blunt trauma (contusions or hematomas); Injury details: Fall out of chair. HX of lumbar FX. Numbness/tingling in left leg TECHNIQUE: Imaging protocol: Radiologic exam of the lumbosacral spine. Views: 2 or 3 views. COMPARISON: CR XR lumbar spine 2-3V* [id number] 10/02/2022 2:13 PM FINDINGS: Bones/joints: Anterior and posterior fusion L3 through S1. The right L5 pedicle screw is fractured. Lateral bony fusion. Anatomic alignment. No lytic or sclerotic bone lesion. Soft tissues: Unremarkable. XR/XR lumbar spine 2-3V* [id number] IMPRESSION: The right L5 pedicle screw is broken.
[2023-09-16] MEDS: dexamethasone 10 mg/mL INJ IVP (07:30)
[2023-09-16] MEDS: ketorolac 30 mg/mL INJ IVP (07:30)
--- NOTE | 2023-09-16 08:39 | PC.PHAR ---
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
== END 2023-09-16 08:49 | disposition home or self-care (01) ==
PROVIDERS: Emergency Provider Family Medicine; PCP Nurse Practitioner Family
DX: Z98.890 Other specified postprocedural states (principal); T84.9XXA Unspecified complication of internal orthopedic prosthetic device, implant and graft, initial encounter; Y79.8 Miscellaneous orthopedic devices associated with adverse incidents, not elsewhere classified; I10 Essential (primary) hypertension; E10.9 Type 1 diabetes mellitus without complications; Z72.0 Tobacco use; Z79.4 Long term (current) use of insulin
CPT/HCPCS: 51798; 72100; 96374; 96375; 99284; J1100; J1885

== ENCOUNTER 2023-10-18 09:19 | Outpatient (CLI) | payer MEDICAID, SELFPAY ==
[2023-10-18 09:56] LABS: Basophils # 0.1 10^3/uL (0.0-0.1); Basophils % 0.9 %; Eosinophils # 0.2 10^3/uL (0.0-0.8); Eosinophils % 1.4 %; Hematocrit 41.9 % (37-53); Lymphocytes % 22.4 %; Mean Corpuscular HGB Conc 34.4 g/dL (30-55); Mean Corpuscular Hemoglobin 31.3 pg (27-33); Mean Corpuscular Volume 91.1 fl (82-101); Mean Platelet Volume 9.8 fL (7.4-10.4); Monocytes # 0.9 10^3/uL (0.2-0.9); Monocytes % 7.1 %; Neutrophils # 8.92 10^3/uL (1.8-7.7); Neutrophils % 67.8 %; Nucleated Red Blood Cells % 0 %; Platelet Count 357 10^3/cmm (157-399); Red Cell Distribution Width 12.5 % (12.1-15.1); White Blood Count 13.16 10^3/uL (3.29-11.43)
[2023-10-18 10:09] LABS: Estmated Average Glucose 269
[2023-10-18 10:17] LABS: Creatinine Urine, Random 45 mg/dL (39-259)
[2023-10-18 10:20] LABS: Troponin T (5th) Once 45 ng/L (0-15)
[2023-10-18 10:29] LABS: Alanine Aminotransferase 11 U/L (0-41); Albumin Level 2.8 g/dL (3.5-5.2); Alkaline Phosphatase 87 U/L (40-130); Aspartate Amino Transferase 12 U/L (0-40); Blood Urea Nitrogen 22 mg/dL (6-20); Calcium 8.9 mg/dL (8.5-10.5); Carbon Dioxide 28 mmol/L (22-29); Chloride 101 mmol/L (98-107); Cholesterol 330 mg/dL (0-200); Globulin 3.4 g/dL (1.3-4.6); Glomerular Filtration Rate 77.1 mL/min (90-130); Glucose 137 mg/dL (65-115); HDL Cholesterol 50 mg/dL (60-100); LDL Cholesterol Calculated 208 mg/dL (50-129); LDL HDL Ratio 4.16 RATIO (0.00-3.22); NT Pro B Type Natriuretic Pept 116 pg/mL (0-125); Osmolality Calculated 293 mOsm/kg (285-295); Sodium 139 mmol/L (136-145); Thyroid Stimulating Hormone 4.97 uIU/mL (0.27-4.20); Total Bilirubin 0.5 mg/dL (0.15-1.2); Total Protein 6.2 g/dL (6.6-8.7); Triglycerides 359 mg/dL (0-150)
[2023-10-18 10:32] LABS: Microalbum Creatinine Ratio Ur 8622 mg/dL (0-20); Microalbumin Random Urine 388 ug/dL (0-20)
== END 2023-10-18 09:20 | disposition home or self-care (01) ==
LOC: LAB 09:21
PROVIDERS: Absent Provider Internal Medicine; PCP Nurse Practitioner Family; Visit Provider Internal Medicine
DX: R06.02 Shortness of breath (principal); E10.9 Type 1 diabetes mellitus without complications; R07.89 Other chest pain; I10 Essential (primary) hypertension
CPT/HCPCS: 36415; 80053; 80061; 82044; 83036; 83880; 84443; 84484; 85025

== ENCOUNTER → 2023-10-21 09:37 | Outpatient (BNVA) | payer MEDICAID, SELFPAY | PROVIDERS: PCP Nurse Practitioner Family; Visit Provider Internal Medicine | DX: R07.9 Chest pain, unspecified (principal); E10.65 Type 1 diabetes mellitus with hyperglycemia; E10.40 Type 1 diabetes mellitus with diabetic neuropathy, unspecified; E78.2 Mixed hyperlipidemia; Z79.4 Long term (current) use of insulin | CPT/HCPCS: 93005; 99214 ==

== ENCOUNTER → 2023-11-05 09:35 | Outpatient (BNVA) | payer MEDICAID, SELFPAY | PROVIDERS: PCP Nurse Practitioner Family; Visit Provider Orthopaedic Surgery | DX: Z98.1 Arthrodesis status (principal); T84.216A Breakdown (mechanical) of internal fixation device of vertebrae, initial encounter; E10.65 Type 1 diabetes mellitus with hyperglycemia; Y79.2 Prosthetic and other implants, materials and accessory orthopedic devices associated with adverse incidents | CPT/HCPCS: 72100 ==

== ENCOUNTER 2023-11-21 10:05 | Outpatient (CLI) | payer MEDICAID, SELFPAY ==
--- NOTE | 2023-11-21 10:30 | CT_ITS ---
WS: [id number] CT LUMBAR SPINE, noncontrast. HISTORY: lumbar pain TECHNIQUE: Contiguous 2.0 mm axial imaging are performed. Sagittal and coronal reformats are submitte d and reviewed. All CT scans at [facility] use at least one of these dose optimization techni ques: automated exposure control; mA and/or kV adjustment per patient size (includes targeted exams w here dose is matched to clinical indication); or iterative reconstruction. IV contrast: None DLP: 1166.40 mGy.cm COMPARISON: 11/16/2015 Prior posterior decompression and fusion extending from L3-S1 with interconnecting rods. Interbody sp acers at L3-4, L4-5 and L5-S1. Patient has a known fracture of the RIGHT S1 pedicle screw. No additio nal fractures are identified. There is no significant separation of the fracture of the S1 RIGHT pedi minerva screw. Vertical rods are intact. Posterior lumbar alignment appears normal. L1-2: Normal. L2-3: Mild facet arthritis. No stenosis. L3-4: There is a large posterior laminectomy defect greatest on the LEFT. RIGHT facet arthritis and o steophyte encroaching upon the proximal RIGHT foramen with mild stenosis. L4-5: Very large posterior laminectomy defect. Mild osteophytic ridging around the vertebral body. Os teophytes from the posterior L4 vertebral body with mild encroachment upon the central canal but ther e is a large posterior laminectomy defect. L5-S1: Osteophytic ridging. There is facet joint arthritis. There are numerous small osseous fragment s and bone grafting material there does appear to be a fracture through the RIGHT inferior articular facet of L5. This is also at the site of the screw fracture. Although subtle I do believe there are c hanges of early loosening surrounding the RIGHT S1 pedicle screw. Bone graft material is noted through the laminectomy defects. Visualized retroperitoneum is normal. IMPRESSION: 1. Status post posterior decompression and fusion from L3-S1 with interconnecting rods. 2. Nondisplaced fracture involving the RIGHT S1 pedicle screw. 3. There does appear to also be a fracture involving the RIGHT L5 inferior facet which is closely as sociated with the fractured pedicle screw. 4. Very mild lucency surrounding the RIGHT S1 pedicle screw may indicate early loosening. 5. Large posterior laminectomy defects from L3-4 to L5-S1.
== END 2023-11-21 10:06 | disposition home or self-care (01) ==
LOC: RAD 10:05
PROVIDERS: PCP Nurse Practitioner Family; Visit Provider Orthopaedic Surgery
DX: Z98.1 Arthrodesis status (principal); T84.216A Breakdown (mechanical) of internal fixation device of vertebrae, initial encounter; Y79.3 Surgical instruments, materials and orthopedic devices (including sutures) associated with adverse incidents; R93.7 Abnormal findings on diagnostic imaging of other parts of musculoskeletal system; M96.1 Postlaminectomy syndrome, not elsewhere classified
CPT/HCPCS: 72131

== ENCOUNTER → 2023-12-19 11:20 | Outpatient (BNVA) | payer MEDICAID, SELFPAY | PROVIDERS: PCP Nurse Practitioner Family; Visit Provider Orthopaedic Surgery | DX: Z98.1 Arthrodesis status (principal) | CPT/HCPCS: 36415; 80053; 81001; 85025; 87086 ==

== ENCOUNTER 2024-01-01 10:04 | Inpatient (IN) | payer MEDICAID, SELFPAY ==
[2024-01-01] VITALS (24 sets, daily range): BP systolic 146–218; BP diastolic 86–138; PULSE 62–95; RESP 16–20; TEMP 36.2–36.8; O2SAT 91–98; BMI 37.3
[2024-01-01 06:24] LABS: Glucose Point of Care 359 mg/dL (70-110)
--- NOTE | 2024-01-01 06:26 | ANES.PREANE2 ---
Pre-Anesthetic Assessment Height/Weight: Height 1.83 m Weight 124.738 kg Temp Pulse Resp BP Pulse Ox O2 Del Method 98.2 F 95 16 218/138 98 Room Air 01/01/24 06:13 01/01/24 06:13 01/01/24 06:13 01/01/24 06:13 01/01/24 06:13 01/01/24 06:13 Operation Date: 01/01/24 07:00 Proposed Procedures p Posterior Segmental Instrumentation(Not Applicable) - Miquel Alba DO s Lumbopelvic Fixation(Not Applicable) - Miquel Alba DO s Sacroiliac Joint Fusion/ open(Bilateral) - Miquel Alba DO Familial anesthetic complications: None Was Beta Nickie taken within 24 hours: Yes Was Clonidine taken within 24 hours: N/A Last intake: Intake Last Liquid Date 12/31/23 Last Liquid Time 22:35 Last Solid Date 12/31/23 Last Solid Time 22:35 Social Tobacco Hx drug abuse Exam alert, oriented x 3, clear to auscultation bilaterally and regular rate & rhythm Airway Mallampati: Class II Dentition: chipped (2 front teeth) CV/HEM Hypertension Metabolic Diabetes Mellitus (poorly controlled type I diabetic) and Thyroid Disease Anesthetic Plan ASA status: 3 Anesthesia: General Risk of > 500 ml blood loss (7ml/kg in children): No Medications/Allergies Home Medications Medication Instructions Recorded Confirmed Last Taken Type Intraoperative Neuromonitoring #1 ea 08/22/22 12/19/23 Unknown Rx nicotine (polacrilex) 4 mg buccal 4 mg buccal Q8H PRN nicotine 06/13/23 01/01/24 Unknown Rx lozenge cravings #108 ea insulin syringe-needle U-100 1 mL #100 ea 06/27/23 12/19/23 Unknown Rx 31 gauge x 5/16 (BD Insulin Syringe Ultra-Fine) pen needle, diabetic 32 gauge x #100 ea 06/27/23 12/19/23 Unknown Rx 1/4 (BD Ultra-Fine Micro Pen Needle) propranolol 40 mg tablet See Rx Instructions .Route 06/27/23 12/19/23 Unknown Rx .COMPLEX #90 tabs insulin detemir U-100 100 unit/mL 20 unit (0.2 mL) SUBCUT BID 30 07/31/23 01/01/24 12/31/23 Rx (3 mL) subcutaneous pen (Levemir days #15 mL FlexPen) acetaminophen 500 mg tablet 7,500 - 10,000 mg PO Q6H PRN Pain 09/16/23 01/01/24 12/18/23 History amlodipine 10 mg tablet 10 mg PO QAM 09/16/23 01/01/24 12/31/23 History aripiprazole 10 mg tablet 10 mg PO DAILY PRN unknown 09/16/23 01/01/24 Unknown History baclofen 10 mg tablet 10 mg PO TID PRN Muscle Spasm 09/16/23 01/01/24 Unknown History clonidine HCl 0.1 mg tablet 0.1 mg PO BID PRN Hypertension 09/16/23 01/01/24 Unknown History haloperidol 5 mg tablet 5 mg PO Q4H PRN aggitation 09/16/23 01/01/24 Unknown History hydroxyzine HCl 25 mg tablet 25 mg PO TID PRN Anxiety 09/16/23 01/01/24 12/31/23 History lisinopril 40 mg tablet 40 mg PO QAM 09/16/23 01/01/24 12/31/23 History prazosin 2 mg capsule 4 mg PO BEDTIME 09/16/23 01/01/24 12/31/23 History prednisone 20 mg tablet 20 mg PO TID #15 tabs 09/16/23 01/01/24 12/31/23 Rx trazodone 150 mg tablet 150 - 300 mg PO BEDTIME PRN Sleep 09/16/23 01/01/24 12/31/23 History blood sugar diagnostic (True #100 ea 10/04/23 12/19/23 Unknown Rx Metrix Glucose Test Strip) blood-glucose meter (True Metrix #1 ea 10/04/23 12/19/23 Unknown Rx Air Glucose Meter kit) lancets 31 gauge #100 ea 10/04/23 12/19/23 Unknown Rx aripiprazole 400 mg intramuscular 400 mg IM Q28D #1 ea 10/15/23 01/01/24 12/11/23 Rx suspension,extended release (Abilify Maintena) blood-glucose sensor (Varaani Workscom G7 #1 ea 10/21/23 12/19/23 Unknown History Sensor device) levothyroxine 25 mcg tablet 25 mcg PO DAILY #90 tabs 10/21/23 01/01/24 Unknown Rx rosuvastatin 40 mg tablet 40 mg PO DAILY #90 tabs 10/21/23 12/19/23 Unknown Rx insulin aspart U-100 100 unit/mL 20 unit SUBCUT TID 01/01/24 01/01/24 12/31/23 History (3 mL) subcutaneous pen (Novolog FlexPen U-100 Insulin aspart) Allergies Allergy/AdvReac Type Severity Reaction Status Date / Time No Known Allergies Allergy Verified 12/31/23 09:26 [facility] Anesthesia Medical History Other stimulant abuse, uncomplicated Waking at night short of breath Snoring Hypersomnia Insomnia Noncompliance w/medication treatment due to intermit use of medication Schizophrenia Psychiatric care Methamphetamine abuse Uncontrolled hypertension Type 1 diabetes Family History Other CAD (coronary artery disease) Hypertension Stroke Social History Smoking and tobacco/nicotine status: current every day tobacco/nicotine user Alcohol intake: former Substance/Drug Use: former Date of last use: Amphetamines more than 62 days ago Caregiver/support person: Yes Lives independently: Yes Household members: other 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
[2024-01-01] MEDS: sodium chloride 0.9% 1,000 ML 30 ML IV (06:31)
[2024-01-01] MEDS: insulin regular-human 100 units/1 mL 20 UNIT IVP (06:38)
[2024-01-01] MEDS: labetalol 5 mg/mL SDV 20mL 10 MG IVP (06:39)
[2024-01-01] MEDS: fentaNYL 50 mcg/mL INJ 2mL IVP ×2 (06:46→10:08)
--- NOTE | 2024-01-01 06:50 | W.PM.OPSUD ---
Surgery/Procedure H&P Update DATE OF PROCEDURE: January 01, 2024 DATE H&P PERFORMED: 12/19/23 H&P UPDATE INFORMATION: I have reviewed H&P completed within last 30 days, I have examined patient prior to procedure and No changes to prior documentation PLANNED PROCEDURE: Operation Date: 01/01/24 07:00 Proposed Procedures p Posterior Segmental Instrumentation(Not Applicable) - DO marvin Del Rosario Lumbopelvic Fixation(Not Applicable) - DO marvin Del Rosario Sacroiliac Joint Fusion/ open(Bilateral) - Miquel Alba DO
[2024-01-01] MEDS: ceFAZolin 3,000 MG in sodium chloride 0.9% (plus) 100 ML 200 MG IV (07:16)
[2024-01-01] MEDS: thrombin 5,000 unit SDV 5000 UNIT XX (08:15)
[2024-01-01] MEDS: lidocaine-epi 1% 20 mL INJ INJECTION (08:16)
[2024-01-01] MEDS: vancomycin 1,000 MG SDV 1000 MG XX (08:16)
[2024-01-01] MEDS: heparin, porcine 1,000 unit/mL INJ 10 mL 10000 UNIT IRRIGATION (08:17)
--- NOTE | 2024-01-01 10:08 | PM.OP ---
Operative Report Date of procedure: January 01, 2024 Pre-op diagnosis: 1. Nonunion L5-S1 2. Failed back surgery Post-op diagnosis: same Procedure done: 1. L3 - S1 posterior instrumentation 2. Lumbopelvic fixation 3. L5 to pelvis posterior spine fusion 4. open Right Sacral iliac fusion 5. open Left sacral iliac fusion 6. use of computer navigation/ stereotactic for spine 7. removal deep hardware from spine 8. exploration of nonunion L5 /S1 9. use of allograft. 10. Bone marrow aspirate from right iliac crest Surgeon: Miquel Alba DO Estimated blood loss (mL): 200 Procedure: 1. L3 - S1 posterior instrumentation 2. Lumbopelvic fixation 3. L5 to pelvis posterior spine fusion 4. open Right Sacral iliac fusion 5. open Left sacral iliac fusion 6. use of computer navigation/ stereotactic for spine 7. removal deep hardware from spine 8. exploration of nonunion L5 /S1 9. use of allograft. 10. Bone marrow aspirate from right iliac crest Patient is brought to the operative suite after undergoing anesthesia placed in the prone position. All his impingement well-padded. Patient was prepped and draped normal sterile fashion. Neuromonitoring was used throughout the entire case. Skin incision was made using previous skin incision. Dissection was down to the L3-S1 screws and out the sacral ala bilaterally. The screw caps from L3-4-5 and S1 were removed bilaterally. Rods were removed bilaterally. The broken screw on the right was removed. Next tension was brought to placing the fiducial in the right iliac crest. This was done by placing 2 pins were later removed at the end of the case. These pins then attached to the fiducial. The C-arm was brought in and spun around the patient and the information from serum was then loaded in the computer for the later used for placing the iliac screws and the sacral screws. Next tension was brought to obtain the bone marrow aspirate from right iliac crest. This was done using the regenerative cell bone marrow aspiration kit. The needle was then started 10 cc of bone marrow aspirate were withdrawn and this was later mixed with the bone graft. Next attention was brought to placing the iliac screws. This was done using the gearshift probe the probe was placed through the sacrum crossed the ala across the sacroiliac joint and into the iliac crest. Next a tap was used and then a screw on the right side was a 90 mm 9.5 screw. This process was repeated on the left side and this was an 80 mm screw placed on the left side. Next tension was brought to doing the open sacroiliac fusion. This was done by exposing the SI joint. The gearshift probe linked to computer navigation was used to cross from the sacral ala across the sacroiliac joint and into the iliac crest. Next a wire was placed through this hole. And then the wire was overdrilled. And then the screw was placed under C-arm guidance. This process was done on both the right and the left side screws were found to be in appropriate position bilaterally. Next attention was brought to next lowering the nonunion site. This was done by dissecting out the sacral ala bilaterally to the L5 transverse processes bilaterally. Rongeur was used to remove any fibrous nonunion. The transverse process and sacral ala were exposed decorticated and the allograft was then packed into this gutter in order to provide for the L5 to the pelvis fusion. Next the rods were attached from L3-S1 and then to the iliac screws bilaterally. Screw caps were placed and torqued down. From L3 to the pelvis. Providing the lumbopelvic fixation. Wounds were then irrigated and vancomycin powder and deep drain placed wound was closed in layered fashion with 0 Vicryl 2-0 Vicryl and Monocryl suture. Sterile dressings were applied patient transferred to the PACU in stable condition.
--- NOTE | 2024-01-01 10:45 | ANE.PACU2 ---
Inpatient post-anesthesia follow up: Airway intact: Yes Vital signs: Temperature 97.3 F Pulse Rate 76 Respiratory Rate 16 Blood Pressure 190/119 Pulse Oximetry 95 Oxygen Delivery Me thod Nasal Cannula Oxygen Flow Rate 1 Fraction of Inspir ed Oxygen Hydration adequate: Yes Nausea and vomiting: No Pain level: 1 Mental status: Baseline
[2024-01-01 11:44] LABS: Glucose Point of Care 262 mg/dL (70-110)
[2024-01-01] MEDS: lactated ringers 1,000 ML 90 ML IV ×2 (11:59→23:09)
[2024-01-01] MEDS: nicotine 4 mg lozenge MUCOUS MEM (11:59)
[2024-01-01] MEDS: cloNIDine 0.1 mg Tablet 0.100000000000000006 MG PO (11:59)
[2024-01-01] MEDS: cetylpyridinium Lozenge 1 EACH MUCOUS MEM (11:59)
[2024-01-01] MEDS: insulin lispro 100 unit/1 mL SUBCUT (12:00)
[2024-01-01] MEDS: HYDROcodone-acetaminophen 5-325 mg Tablet PO ×2 (12:20→18:59)
--- NOTE | 2024-01-01 15:05 | XR_ITS ---
WS: [id number] Lumbar spine, C-arm fluoroscopy views, 01/01/2024 Clinical Data: [facility] Comparison: Lumbar spine, 11/05/2023 Findings: Dr. Alba revised the posterior lumbosacral fusion. Impression: Revision of posterior lumbosacral fusion.
[2024-01-01] MEDS: propranolol 40 mg Tablet PO (15:33)
[2024-01-01] MEDS: ceFAZolin 2,000 MG in sodium chloride 0.9% (plus) 50 ML 100 MG IV ×2 (15:34→23:10)
[2024-01-01] MEDS: predniSONE 20 mg Tablet PO ×2 (15:34→20:27)
--- NOTE | 2024-01-01 16:41 | PC.PHAR ---
Addendum entered by Anna Cisneros 01/01/24 16:44: DOSE CHANGE ON ARIPIPRAZOLE FROM 10 MG TO 20 MG, PROPRANOLOL 20 MG TO 40 MG, AND TRAZODONE 150 MG AT BEDTIME TO 100 MG (TAKE 1 TO 3 TABLETS) AT BEDTIME. Original Note: PT STATES HAS 2 MEDICATIONS HE IS UNABLE TO HOME AIDE DUE TO SENT TO [facility]. [facility] WILL BE [facility]SFERING LEVOTHYROXINE 25MCG AND ROSUVASTATIN 40 MG FROM [facility] [place] [facility] AND FILLING, FOR PT TO HOME AIDE. 01/01/24
[2024-01-01 17:02] LABS: Glucose Point of Care 336 mg/dL (70-110)
[2024-01-01] MEDS: docusate sodium 100 mg Capsule PO (17:32)
[2024-01-01] MEDS: insulin lispro 100 unit/1 mL 20 UNIT SUBCUT (17:32)
[2024-01-01] MEDS: nicotine 21 mg Patch 1 PATCH TRANSDERMA (17:32)
[2024-01-01 20:24] LABS: Glucose Point of Care 336 mg/dL (70-110)
[2024-01-01] MEDS: insulin glargine 100 units/1 mL 20 UNIT SUBCUT (20:27)
[2024-01-01] MEDS: ketorolac 30 mg/mL INJ IVP (23:07)
[2024-01-02] VITALS: BP 153/80; PULSE 77; RESP 15; TEMP 36.4; O2SAT 94
[2024-01-02] MEDS: HYDROcodone-acetaminophen 5-325 mg Tablet PO ×2 (00:27→06:07)
[2024-01-02 03:35] VITALS: BP 179/102; PULSE 81; RESP 17; TEMP 37; O2SAT 96
[2024-01-02 03:37] VITALS: BP 179/102
[2024-01-02] MEDS: cloNIDine 0.1 mg Tablet 0.100000000000000006 MG PO (03:37)
[2024-01-02 05:13] VITALS: PULSE 73
[2024-01-02] MEDS: amlodipine 10 mg Tablet PO (06:03)
[2024-01-02] MEDS: lisinopril 20 mg Tablet 40 MG PO (06:03)
[2024-01-02] MEDS: ceFAZolin 2,000 MG in sodium chloride 0.9% (plus) 50 ML 100 MG IV (06:04)
[2024-01-02 06:36] LABS: Glucose Point of Care 391 mg/dL (70-110)
[2024-01-02 07:35] VITALS: BP 153/93; PULSE 84; RESP 16; TEMP 36.9; O2SAT 95
[2024-01-02 07:57] LABS: Glucose Point of Care 393 mg/dL (70-110)
--- NOTE | 2024-01-02 08:02 | PM.DCS ---
Discharge Providers Date of Admission: 01/01/24 10:04 Date of Discharge: January 02, 2024 Attending Provider at Admission: Miquel Alba DO Attending Provider at Discharge: Miquel Alba DO Primary Care Provider: LAWANDA Garcia Reason for Visit Reason for Visit: Z98.1 Physical Exam Narrative: Up walking pain controlled drain with minimal output Urinary Catheter Management: Trinh: Cath Placed During This Visit: yes, but has since been removed by the nurse Reason for Continuing Indwelling Catheter: Decision to DC Catheter Urinary Catheter Date of Insertion: 01/01/24 Urinary Catheter Time of Insertion: 07:30 Date Urinary Catheter Removed: 01/01/24 Time Urinary Catheter Discontinued: 21:27 Discharge Data Studies Completed and Pending Completed Studies During Hospitalization Category Date Time Status XR lumbar spine 2-3V* 21382 Routine Exams 01/01/24 15:05 Completed Laboratory Results POC Glucose 393 mg/dL (70-110) H 01/02/24 07:32 Vitals Last Vital Signs Temp 98.4 F 01/02/24 07:35 Pulse 84 01/02/24 07:35 Resp 16 01/02/24 07:35 BP 153/93 01/02/24 07:35 Pulse Ox 95 01/02/24 07:35 O2 Del Method Room Air 01/02/24 07:35 O2 Flow Rate 2 01/01/24 11:50 Discharge Plan Discharge Patient Disposition: Home Condition: Stable Prescriptions: New hydrocodone-acetaminophen 5-325 mg tablet 1 - 2 tab PO .Q4-6H Qty: 40 0RF Continued Levemir FlexPen 100 unit/mL (3 mL) insulin pen 20 unit SUBCUT BID 30 Days Qty: 15 1RF (DME) blood-glucose meter [True Metrix Air Glucose Meter] Kit See Rx Instructions .Route Qty: 1 0RF Rx Instructions: As directed (DME) True Metrix Glucose Test Strip Strip See Rx Instructions .Route Qty: 100 0RF Rx Instructions: As directed (DME) lancets 31 gauge misc See Rx Instructions .Route Qty: 100 0RF Rx Instructions: As directed (DME) Dexcom G7 Sensor Device See Rx Instructions .ROUTE .MEDSUPPLY Qty: 1 Rx Instructions: As directed levothyroxine 25 mcg tablet 25 mcg PO DAILY Qty: 90 0RF Rx Instructions: pt states he hasn't got rx rosuvastatin 40 mg tablet 40 mg PO DAILY Qty: 90 0RF Rx Instructions: haven't grain picker nicotine (polacrilex) 4 mg lozenge 4 mg buccal Q8H PRN (Reason: nicotine cravings) Qty: 108 0RF Abilify Maintena 400 mg suspension,extended rel recon 400 mg IM Q28D Qty: 1 0RF (DME) Intraoperative Neuromonitoring See Rx Instructions .Route .MEDSUPPLY Qty: 1 0RF Rx Instructions: As directed (DME) pen needle, diabetic [BD Ultra-Fine Micro Pen Needle] 32 gauge x 1/4 needle See Rx Instructions .ROUTE .MEDSUPPLY Qty: 100 3RF Rx Instructions: As directed (DME) insulin syringe-needle U-100 [BD Insulin Syringe Ultra-Fine] 1 mL 31 gauge x 5/16 syringe See Rx Instructions .ROUTE .COMPLEX Qty: 100 1RF Dose Instruction: DIRECTED Rx Instructions: DIRECTED lisinopril 40 mg Tablet 40 mg PO QAM haloperidol 5 mg tablet 5 mg PO Q4H PRN (Reason: aggitation) amlodipine 10 mg tablet 10 mg PO QAM clonidine HCl 0.1 mg tablet 0.1 mg PO BID PRN (Reason: Hypertension) acetaminophen 500 mg Tablet 7,500 - 10,000 mg PO Q6H PRN (Reason: Pain) Rx Instructions: PT STATES TAKES 15 TO 20 TABS AT ONE TIME prazosin 2 mg capsule 4 mg PO BEDTIME insulin aspart U-100 [Novolog FlexPen U-100 Insulin] 100 unit/mL (3 mL) insulin pen 20 unit SUBCUT TID MDD 30 propranolol 40 mg tablet 40 mg PO BID hydroxyzine pamoate 50 mg capsule 50 mg PO TID PRN (Reason: Anxiety) aripiprazole 20 mg tablet 20 mg PO DAILY nicotine 14 mg/24 hr patch 24 hour 1 patch topical DAILY trazodone 100 mg tablet 100 - 300 mg PO BEDTIME PRN (Reason: Sleep) bupropion HCl 150 mg tablet extended release 24 hr 150 mg PO DAILY varenicline 0.5 mg (11)- 1 mg (42) tablets,dose pack See Rx Instructions .ROUTE .COMPLEX Rx Instructions: TAKE DIRECTED -0.5 MG DAILY FOR 3 DAYS 0.5 MG TWICE A DAY FOR 4 DAYS THEN 1 MG TWICE DAILY THEREAFTER Discharge Orders: Discharge Order (Routine); Ordered 01/02/24 Ordered By: Miquel Alba Referrals: Miquel Alba, [Physician] - 01/14/24 2:45 pm Discharge Diet: Advance as tolerated Discharge Activity: Limit activity as instructed Patient Instructions: Opioid Safety Activity Restrictions/Additional Instructions: Thank you for [facility] for your care! The following is a list of instructions, from your provider, to follow upon your discharge to ensure you have the optimal recovery from your recent injury orsurgery. Follow-up care is a martin part of your treatment and safety. Be sure to make and go to all appointments, and call your doctor if you are having problems. If you do not already have a follow-up appointment made, call Dr. Alba office in the next 1-3 days to make follow up appointment for 1 weeks at [phone]. It is also a good idea to know your test results and keep a list of the medicines you take. Medications will be prescribed for you at your provider's discretion. These medications are to be used as instructed; if they are taken more often that prescribed they will not be refilled early and in most cases will not be refilled at all. > When a refill is needed,you should contact kaya hale 2-3 business days before your prescription runs out. Medications will NOT be refilled by recreation attendant supervisor providers after hours! > Many pain medications contain Tylenol (Acetaminophen). Do not consume more than 4,000 mg of Tylenol per day in total with any combination ofmedications. > Pain medications can cause constipation. Please use an over the counter stool softener as directed, while taking pain medications. Consulty our local pharmacist with questions or recommendations on stool softeners. If constipation persists, contact our office or your primary care provider. > While under our care,you are not to receive pain medications or other controlled substances from any other provider unless our office is notified and approves. Any attempts to do so will result in refusal to prescribe any further pain medications and possible dismissal from our practice. ? Your wound and/or dressing should remain clean and dry for 7 days after surgery. On postoperative day 7. Will change dressing in clinic on day 7. It is okay to shower and get the incision wet. Pad dry afterwards. No further dressing should be required from that point on. Do not put any creams or ointments on theincision > It is normal for there to be a small amount of discharge (bloody or blood tinged) present from a surgical wound for the first 1-3days. > The wound should be examined twice a day for signs of infection. Mild redness or bruising is to be expected but indications that an infection maybe starting would include; An increase in redness, swelling, or discharge, a foul odor present around the incision, and/or a fever greater than 101 ?F ? Showering is permitted, however we ask that you do not take a bath, sit in a whirlpool / Jacuzzi, or go swimming for 1 month. For only the first 2 days after surgery, lt wilt be necessary for you to cover your wound/dressing with plastic and tape to keep it dry. ? Walking is essential for the healing process after surgery. We would like you to slowly advance your walking. This should be done on relatively flat clear ground (inside or out) or can be done on a treadmill. Remember this goal does not have to happen all at once, slowly increase your distance and duration. This can be broken into more more than one walk per day as tolerated. Patients who walk as directed after surgery rarely require Physical Therapy. In the unlikely event this issue arises your provider will direct hospital staff to make the appropriate arrangements. ? No lifting over 5 pounds {a gallon of milk) or bending/twisting until further notice. Each of these activities places an unnecessary amount of stress onto the body and can impede the delicate healing process. > Instead of bending at the waist, keep your back straight and bend at the knees. > Instead of twisting your torso, keep your back straight and turn your entire body with your feet. ? You may sleep in any position which makes you comfortable. Many patients find comfort sleeping in a reclining chair. It is not abnormal to have difficulty sleeping for the first several weeks following your surgery. We recommend trying Benadry! or Tylenol PM as directed to help with your sleeping difficulties. Both medications are over the counter and available withoutprescription. ? NO SMOKING!!! Smoking dramatically increases the probability of developing postoperative wound infections. ? Common complaints after lumbar and/or thoracic spine surgery include, but are not limited to: numbness and/or tingling in the legs, pain around the incision and surrounding tissues, muscle spasms, or stiffness of the middle to low back. Contact our office if these symptoms persist or if an acute change occurs. ? No driving for the first 3-5days, and not while taking narcotics until seen at your follow-up appointment and cleared. There are no restrictions for riding on short trips, however if you take a longer trip, arrangements should be made to make regular stops to get out of the vehicle and stretch . ? Swelling is an unfortunate event that will take place with any surgery and is the primary source of your postoperative discomfort. While walking and regular approved activities helps control inflammation, there are additional steps you can take to minimizeswelling. > Place ice over the surgical site and surrounding tissue for twenty minutes, followed by applying a low/medium heat (heating pad) for an additional twenty minutes every 1-2 hours as needed for painrelief. > You may use of over the counter anti-inflammatory medications (Ibuprofen, Motrin, Aleve, Advil, etc) as directed on the package label. These types of medicines wm significantly reduce the amount of discomfort you experience after surgery from swelling. It should be noted that if you have and allergy to any of these medications, or a history of ulcers or kidney disease you should consult you primary care provider prior to starting these medications. Discharge Attestations Time Spent in Discharge Care*: less than 30 min Quality Metrics Clinical Quality Measures [ No reported AMI, CVA or VTE this stay] Coding Level of Care Code Acute Code for Camig Fwpati
--- NOTE | 2024-01-02 09:07 | PC.NURSE ---
Hemovac removed at 0907. Hemovac intact, tolerated well.
[2024-01-02] MEDS: nicotine 21 mg Patch 1 PATCH TRANSDERMA (09:08)
[2024-01-02] MEDS: insulin lispro 100 unit/1 mL 20 UNIT SUBCUT (09:08)
[2024-01-02] MEDS: propranolol 40 mg Tablet PO (09:09)
[2024-01-02] MEDS: insulin glargine 100 units/1 mL 20 UNIT SUBCUT (09:09)
[2024-01-02] MEDS: predniSONE 20 mg Tablet PO (09:09)
[2024-01-02] MEDS: docusate sodium 100 mg Capsule PO (09:09)
[2024-01-02] MEDS: levothyroxine 25 mcg Tablet PO (09:09)
[2024-01-02 09:22] VITALS: BP 153/93; PULSE 84; RESP 16; TEMP 36.9; O2SAT 95
== END 2024-01-02 09:24 | disposition home or self-care (01) | DRG 454 ==
LOC: MEDSURG 10:05
PROVIDERS: Admitting Provider Orthopaedic Surgery; PCP Nurse Practitioner Family; Visit Provider Orthopaedic Surgery
PROC: 0SG107J Fusion of 2 or more Lumbar Vertebral Joints with Autologous Tissue Substitute, Posterior Approach, Anterior Column, Open Approach (ICD-10-PCS; principal; 2024-01-01 07:00)
PROC: 0SG107J Fusion of 2 or more Lumbar Vertebral Joints with Autologous Tissue Substitute, Posterior Approach, Anterior Column, Open Approach (ICD-10-PCS; 2024-01-01 07:00)
PROC: 0SG107J Fusion of 2 or more Lumbar Vertebral Joints with Autologous Tissue Substitute, Posterior Approach, Anterior Column, Open Approach (ICD-10-PCS; CPT 27280; 2024-01-01 07:00)
DX: T84.226A Displacement of internal fixation device of vertebrae, initial encounter (principal); M96.0 Pseudarthrosis after fusion or arthrodesis; Y79.8 Miscellaneous orthopedic devices associated with adverse incidents, not elsewhere classified; F17.200 Nicotine dependence, unspecified, uncomplicated; I10 Essential (primary) hypertension; E10.9 Type 1 diabetes mellitus without complications; E07.9 Disorder of thyroid, unspecified; F20.9 Schizophrenia, unspecified; F15.11 Other stimulant abuse, in remission; Z79.4 Long term (current) use of insulin
CPT/HCPCS: 36416; 51702; 72100; 76000; 82962; 96372; 97161; 97530; C1713; J0131; J0690; J1100; J1170; J1644; J1815; J1885; J2371; J2405; J2704; J2710; J3010; J3370; J3490; J7030; J7120; J7512

== ENCOUNTER 2024-07-23 13:59 | Emergency (ER) | payer MEDICAID, SELFPAY ==
[2024-07-23 14:11] VITALS: BP 199/104; PULSE 97; RESP 17; TEMP 36.7; O2SAT 99; BMI 34.5
== END 2024-07-23 19:58 | disposition left against medical advice (07) ==
PROVIDERS: Emergency Provider Family Medicine; PCP Nurse Practitioner Family
DX: Z53.21 Procedure and treatment not carried out due to patient leaving prior to being seen by health care provider (principal)

== ENCOUNTER 2024-07-24 08:42 | Emergency (ER) | payer MEDICAID, SELFPAY ==
[2024-07-24] VITALS (10 sets, daily range): BP systolic 166–228; BP diastolic 91–132; PULSE 80–98; RESP 16–18; TEMP 36.8; O2SAT 99–100; BMI 34.5
--- NOTE | 2024-07-24 11:31 | XR_ITS ---
WS: [id number] XR chest 1V portable [id number] REASON FOR EXAM: fluid overload FINDINGS: Chest is relatively unchanged compared to 08/15/2009. The heart and mediastinum are within normal limits. Calcified granulomas disease in both hemithoraces. No focal lung lesion. No acute pulmonary parenchymal or pleural abnormality. No findings of congestive heart failure. Mild degenerative spondylosis in the mid and lower thoracic spine. XR/XR chest 1V portable [id number] IMPRESSION: Stable chest without acute abnormality.
--- NOTE | 2024-07-24 11:31 | USCV_ITS ---
Hunter San Age: 33 Gender: M : 1990 Exam Date: 07/24/2024 11:59 Ordering Phys: Mel Baltazar Technologist: JEFFREY Exam Location: [facility] Indication: Pain HISTORY: Lower extremity pain. PROCEDURES: Venous duplex imaging was performed in only the left lower extremity. The following venous structures were evaluated: common femoral vein, profunda vein, proximal portion of the greater saphenous vein, superficial femoral vein, and the popliteal vein. In addition, the posterior tibial and peroneal trunk were evaluated. Serial compression, augmentation maneuvers, and spectral Doppler flow evaluation were performed. FINDINGS: No evidence of DVT seen in any vessel visualized at this time. CONCLUSIONS No evidence of left lower extremity DVT. A few enlarged lymph nodes Left groin non specific but likely reactive Henok Rodriguez MD (Electronically Signed) Final Date: 24 July 2024 14:17 S
--- NOTE | 2024-07-24 11:32 | ED_ITS ---
HPI - General Adult 2 General: Chief complaint: Extremity Problem,Nontraumatic Stated complaint: legs are swollen and painful Time Seen by Provider: 07/24/24 09:05 Source: patient Mode of arrival: ambulatory Limitations: no limitations History of Present Illness: Patient is a 33-year-old male presents to ED today with a complaint that his bilateral lower extremities (left greater than right) are swollen. He states just a few weeks ago he was diagnosed with acute renal failure and reportedly transferred from [facility] to [facility]. He states he was there for several days and received several tests including echocardiogram (this was reviewed on patient's portal on his phone-EF was 55%) and kidney biopsy. Patient is extremely hypertensive upon arrival with a blood pressure of 228/132. Patient states his blood pressure always runs high . Looking at previous documentation he does have blood pressures of 190s-210s systolic. Patient states that he is taking blood pressure medication including carvedilol, hydralazine, and amlodipine. He reportedly has had all of these medications this morning. He is taking 80 mg of Lasix daily. Patient feels like he is not urinating as much as he should with 80 mg BID of Lasix. He complains of painful urination. Denies chest pain, significant shortness of breath, or difficulty breathing. Onset (ago): day(s) Severity: moderate Pain Consistency: constant Relieving factors: none Exacerbating factors: none Associated symptoms: Deny chest pain, dyspnea, headache(s), malaise, nausea, rash or vomiting Treatments prior to arrival: none Related Data Home Medications Medication Instructions Recorded Confirmed amlodipine 10 mg tablet 10 mg PO QAM 09/16/23 07/24/24 lisinopril 40 mg tablet 40 mg PO QAM 09/16/23 07/24/24 blood-glucose sensor (Dexcom G7 #1 ea 10/21/23 07/24/24 Sensor device) insulin lispro 100 unit/mL 10 unit SUBCUT TID 07/24/24 07/24/24 subcutaneous pen (Humalog KwikPen (U-100) Insulin) Previous Rx's Medication Instructions Recorded Intraoperative Neuromonitoring #1 ea 08/22/22 insulin syringe-needle U-100 1 mL #100 ea 06/27/23 31 gauge x 5/16 (BD Insulin Syringe Ultra-Fine) pen needle, diabetic 32 gauge x #100 ea 06/27/2310/17 (BD Ultra-Fine Micro Pen Needle) blood sugar diagnostic (True #100 ea 10/04/23 Metrix Glucose Test Strip) blood-glucose meter (True Metrix #1 ea 10/04/23 Air Glucose Meter kit) lancets 31 gauge #100 ea 10/04/23 Allergies Allergy/AdvReac Type Severity Reaction Status Date / Time bee venom protein (honey bee) Allergy Unknown Verified 07/24/24 10:54 lisinopril Allergy Unknown Verified 07/24/24 10:54 Review of Systems 2 Const: Denies: fever(s), chills, body aches, fatigue or malaise Card: Denies: chest pain Resp: Denies: dyspnea GI: Denies: abdominal pain, nausea, vomiting or diarrhea : Reports: dysuria; Denies: flank pain, urinary frequency, urinary urgency or hematuria Musc: Reports: extremity pain (L LE) and extremity swelling (L>R); Denies: neck pain, back pain, joint pain or joint swelling Skin/Breast: Denies: rash Neuro: Denies: headache(s), numbness in extremities, weakness in extremities, sensory changes or dizziness PFSH ED 2 PFSH: Medical History Other stimulant abuse, uncomplicated Waking at night short of breath Snoring Hypersomnia Insomnia Noncompliance w/medication treatment due to intermit use of medication Schizophrenia Psychiatric care Methamphetamine abuse Uncontrolled hypertension Type 1 diabetes Family History Other CAD (coronary artery disease) Hypertension Stroke Social History Smoking and tobacco/nicotine status: current every day tobacco/nicotine user Alcohol intake: former Substance/Drug Use: former Date of last use: Amphetamines more than 62 days ago Caregiver/support person: Yes Lives independently: Yes Household members: other 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 Physical Exam 2 Const: COMMON NORMALS: no acute distress, patient oriented x3, no limitations, alert and well nourished GENERAL APPEARANCE: cooperative and appears older than stated age ORIENTATION/CONSCIOUSNESS: Yes awake, Yes oriented to person, Yes oriented to place and Yes oriented to time HENMT: COMMON NORMALS: normocephalic and atraumatic HEAD & SCALP: normal to inspection, normocephalic and atraumatic FACE & SINUS: normal facial exam Eye: GENERAL EYE: appearance normal, both eyes and all related structures Neck/C-Spine: COMMON NORMALS: no JVD Chest: COMMONS NORMALS: normal inspection of the chest and normal palpation of entire chest wall Resp: COMMON NORMALS: normal respiratory effort and clear to auscultation bilaterally AUSCULTATION: clear to auscultation bilaterally Cardio: COMMON NORMALS: no JVD, regular rate and regular rhythm RATE: r egular rate RHYTHM: regular rhythm GI: COMMON NORMALS: Normal to inspection, nondistended, normoactive bowel sounds present, Soft to palpation, non-tender, No hepatosplenomegaly present and no masses PALPATION: Yes Soft to palpation and Yes No hepatosplenomegaly present RECTAL EXAM: Yes visual inspection normal and Yes heme negative stool : COMMON NORMALS: Yes no CVA tenderness BLADDER/KIDNEY EXAM: Yes no CVA tenderness Back/Pelvis: COMMON NORMALS: no CVA tenderness and thoracic and lumbar spine normal to inspection Extremity: COMMON NORMALS: full ROM, capillary refill normal and no joint enlargement NARRATIVE EXTREMITY EXAM: bilateral L>R non-pitting edema to lower extremities; he complains of pain to his L lower extremity to medial thigh and calf; NV intact-distal pulses easily palpable bilaterally GENERAL: Yes normal exam except as noted Neuro: MELLISSA COMA SCALE: document GCS findings [place] coma scale eye opening: Spontaneous Mellissa coma scale verbal response: Orientated [place] coma scale motor response: Obey commands [place] coma scale total score: 15 COMMON NORMALS: patient oriented x3, moves all extremities, no focal motor deficits, no sensory deficits noted and gait normal SENSORIUM/ORIENTATION: Yes alert, Yes oriented to person, Yes oriented to place and Yes oriented to time Skin: COMMON NORMALS: no rashes or lesions noted NARRATIVE SKIN EXAM: countless tattoos GENERAL SKIN EXAM: no rashes or lesions noted Course 2 Vital Signs: Vital signs: Vital Signs Temperature 98.2 F 07/24/24 10:41 Pulse Rate 82 07/24/24 12:50 Respiratory Rate 16 07/24/24 13:55 Blood Pressure 166/110 07/24/24 13:55 Pulse Oximetry 100 07/24/24 13:55 Oxygen Delivery Me thod Room Air 07/24/24 13:55 MDM - General Adult Medical Decision Making Patient is a 33-year-old male here for lower extremity swelling. Patient states he was recently diagnosed with acute renal failure and subsequently seen and admitted in [place]. He was released a week or so ago with plan for nephrology follow up. We had requested records early in patient's visit but he still have not been sent. He does have records on his phone through his patient portal. His BUN/Cr at discharge was 45/2.75. Today it is 22/2.4. Patient did receive echocardiogram on 07/14/2024 and had an EF of 55%. His CXR today does not show fluid overload. BNP today is 1775-could not find a previous on his patient portal. His hemoglobin today is down at 9.4 compared to 13.4 on 07/14. Hemoccult negative. Patient has a longstanding history of extremely hypertension. We were able to get blood pressure down into the 160s systolic. Patient states that is as good as it gets . At this time I would recommend patient follow-up with primary care and nephrology as currently scheduled. I do not see any indication for hospitalization as it sounds like patient has had all the necessary testing including kidney biopsies, echocardiogram, etc. His BUN/Cr today is better than what it was at time of discharge. US of his leg negative. He was given IV Lasix here. Continue current dose at home as he is on 80mg twice daily Medical Records I reviewed the patient's medical records. Lab Data I reviewed the patient's lab results. 07/24/24 11:49 07/24/24 11:49 Radiology Impressions Chest X-Ray 07/24/24 11:31 IMPRESSION: Stable chest without acute abnormality. Laboratory Results WBC 13.28 10^3/uL (3.29-11.43) H 07/24/24 11:49 RBC 3.13 10^6/uL (3.85-5.65) L 07/24/24 11:49 Hgb 9.40 g/dL (11.27-16.99) L 07/24/24 11:49 Hct 28.8 % (37-53) L 07/24/24 11:49 MCV 92.0 fl (82-101) 07/24/24 11:49 MCH 30.0 pg (27-33) 07/24/24 11:49 MCHC 32.6 g/dL (30-55) 07/24/24 11:49 RDW 12.5 % (12.1-15.1) 07/24/24 11:49 Plt Count 412 10^3/cmm (157-399) H 07/24/24 11:49 MPV 10.7 fL (7.4-10.4) H 07/24/24 11:49 Neut % (Auto) 77.8 % 07/24/24 11:49 Lymph % (Auto) 15.1 % 07/24/24 11:49 Lawrence % (Auto) 5.3 % 07/24/24 11:49 Eos % (Auto) 0.8 % 07/24/24 11:49 Baso % (Auto) 0.7 % 07/24/24 11:49 Neut # (Auto) 10.32 10^3/uL (1.8-7.7) H 07/24/24 11:49 Lymph # (Auto) 2.0 10^3/uL (0.8-4.8) 07/24/24 11:49 Lawrence # (Auto) 0.7 10^3/uL (0.2-0.9) 07/24/24 11:49 Eos # (Auto) 0.1 10^3/uL (0.0-0.8) 07/24/24 11:49 Baso # (Auto) 0.1 10^3/uL (0.0-0.1) 07/24/24 11:49 Nucleated RBC % (auto) 0 % 07/24/24 11:49 Nucleated RBCs # 0.0 /100WBC 07/24/24 11:49 Sodium 131 mmol/L (136-145) L 07/24/24 11:49 Potassium 4.6 mmol/L (3.5-5.1) 07/24/24 11:49 Chloride 98 mmol/L (98-107) 07/24/24 11:49 Carbon Dioxide 25 mmol/L (22-29) 07/24/24 11:49 Anion Gap 12.6 (5-19) 07/24/24 11:49 BUN 22 mg/dL (6-20) H 07/24/24 11:49 Creatinine 2.4 mg/dL (0.7-1.2) H 07/24/24 11:49 GFR Calculation 31.3 mL/min (90-130) L 07/24/24 11:49 Glucose 412 mg/dL (65-115) H 07/24/24 11:49 Calculated Osmolality 293 mOsm/kg (285-295) 07/24/24 11:49 Calcium 8.2 mg/dL (8.5-10.5) L 07/24/24 11:49 Total Bilirubin 0.2 mg/dL (0.15-1.2) 07/24/24 11:49 AST 11 U/L (0-40) 07/24/24 11:49 ALT 12 U/L (0-41) 07/24/24 11:49 Alkaline Phosphatase 128 U/L (40-130) 07/24/24 11:49 NT-Pro-B Natriuret Pep 1775 pg/mL (0-125) H 07/24/24 11:49 Total Protein 6.1 g/dL (6.6-8.7) L 07/24/24 11:49 Albumin 2.4 g/dL (3.5-5.2) L 07/24/24 11:49 Globulin 3.7 g/dL (1.3-4.6) 07/24/24 11:49 All radiology interpretation(s) finalized by discharge Discharge Plan Discharge Patient Disposition: Home Clinical Impression: Uncontrolled hypertension, Diabetes Renal failure, unspecified Qualifiers: Renal failure chronicity: unspecified chronicity Qualified Code(s): N19 - Unspecified kidney failure Condition: Stable Prescriptions: No Action (DME) blood-glucose meter [True Metrix Air Glucose Meter] Kit See Rx Instructions .Route Qty: 1 0RF Rx Instructions: As directed (DME) True Metrix Glucose Test Strip Strip See Rx Instructions .Route Qty: 100 0RF Rx Instructions: As directed (DME) lancets 31 gauge misc See Rx Instructions .Route Qty: 100 0RF Rx Instructions: As directed (DME) Dexcom G7 Sensor Device See Rx Instructions .ROUTE .MEDSUPPLY Qty: 1 Rx Instructions: As directed (DME) Intraoperative Neuromonitoring See Rx Instructions .Route .MEDSUPPLY Qty: 1 0RF Rx Instructions: As directed (DME) pen needle, diabetic [BD Ultra-Fine Micro Pen Needle] 32 gauge x 1/4 needle See Rx Instructions .ROUTE .MEDSUPPLY Qty: 100 3RF Rx Instructions: As directed (DME) insulin syringe-needle U-100 [BD Insulin Syringe Ultra-Fine] 1 mL 31 gauge x 5/16 syringe See Rx Instructions .ROUTE .COMPLEX Qty: 100 1RF Dose Instruction: DIRECTED Rx Instructions: DIRECTED lisinopril 40 mg Tablet 40 mg PO QAM amlodipine 10 mg tablet 10 mg PO QAM insulin lispro [Humalog KwikPen Insulin] 100 unit/mL Insulin Pen 10 unit SUBCUT TID Rx Instructions: inject 10 units ;sq; tid; before meals Discharge Orders: Discharge ED (Routine); Ordered 07/24/24 Ordered By: Mel Baltazar Referrals: Jason Ariza FNP [Primary Care Provider] - Activity Restrictions/Additional Instructions: As we discussed, please reach out to [place] next week to confirm your appointment with nephrology. In the meantime you need to follow-up with your primary care provider here next week. You need to return to the emergency department for worsening leg swelling, weight gain, shortness of breath or difficulty breathing, chest pain, fevers, or any other concerns you may have. Coding Level of Care Code ED Basting Puller for Bessie Gaxiola
[2024-07-24 12:13] LABS: Basophils # 0.1 10^3/uL (0.0-0.1); Basophils % 0.7 %; Eosinophils # 0.1 10^3/uL (0.0-0.8); Eosinophils % 0.8 %; Hematocrit 28.8 % (37-53); Lymphocytes % 15.1 %; Mean Corpuscular HGB Conc 32.6 g/dL (30-55); Mean Platelet Volume 10.7 fL (7.4-10.4); Monocytes # 0.7 10^3/uL (0.2-0.9); Monocytes % 5.3 %; Neutrophils # 10.32 10^3/uL (1.8-7.7); Neutrophils % 77.8 %; Nucleated Red Blood Cells % 0 %; Platelet Count 412 10^3/cmm (157-399); Red Blood Count 3.13 10^6/uL (3.85-5.65); Red Cell Distribution Width 12.5 % (12.1-15.1); White Blood Count 13.28 10^3/uL (3.29-11.43)
[2024-07-24] MEDS: hyDRALAzine 20 mg/mL INJ 1 mL 10 MG IVP ×2 (12:20→13:19)
[2024-07-24] MEDS: metoprolol tartrate 1 mg/1 mL SDV 5 mL 5 MG IVP (12:20)
[2024-07-24 12:29] LABS: Alanine Aminotransferase 12 U/L (0-41); Albumin Level 2.4 g/dL (3.5-5.2); Alkaline Phosphatase 128 U/L (40-130); Anion Gap 12.6 (5-19); Aspartate Amino Transferase 11 U/L (0-40); Blood Urea Nitrogen 22 mg/dL (6-20); Calcium 8.2 mg/dL (8.5-10.5); Carbon Dioxide 25 mmol/L (22-29); Chloride 98 mmol/L (98-107); Creatinine Clr Calc Pharmacy 57.4793; Globulin 3.7 g/dL (1.3-4.6); Glomerular Filtration Rate 31.3 mL/min (90-130); Glucose 412 mg/dL (65-115); Osmolality Calculated 293 mOsm/kg (285-295); Potassium 4.6 mmol/L (3.5-5.1); Sodium 131 mmol/L (136-145); Total Bilirubin 0.2 mg/dL (0.15-1.2); Total Protein 6.1 g/dL (6.6-8.7)
[2024-07-24 13:11] LABS: NT Pro B Type Natriuretic Pept 1775 pg/mL (0-125)
[2024-07-24] MEDS: morphine 4 mg/mL SDV 1 mL IVP (13:18)
[2024-07-24] MEDS: FUROsemide 10 mg/mL SDV 4mL 40 MG IVP (14:22)
[2024-07-24 15:16] LABS: Bilirubin Urine Negative (Negative); Blood Urine 2+ (Negative); Glucose Urine UA 2+ (Normal); Ketones Urine Negative (Negative); Leukocyte Esterase Urine Negative (Negative); Nitrate Urine Negative (Negative); Protein Urine 3+ (Negative); Specific Gravity, Urine 1.012 (1.005-1.030); Urine Appearance Clear (CLEAR); Urine Color Yellow (Yellow); Urobilinogen Urine 0.2 mg/dL (Negative)
[2024-07-24 15:21] LABS: Add Urine Microscopic? YES; Hyaline Casts Urine 11.97 /lpf; Squamous Epithelial Cell Urine 0-5 /hpf (0-5); WBC Urine 0-5 /hpf (0-5)
[2024-07-24 15:38] LABS: Add Urine Culture? Yes; Amorphous Sediment Urine 1+ /hpf; Bacteria Urine 1+ /hpf; UA Slide Review UA Slide Review Perf
== END 2024-07-24 16:07 | disposition home or self-care (01) ==
PROVIDERS: Emergency Provider Physician Assistant; PCP Nurse Practitioner Family
DX: N19 Unspecified kidney failure (principal); I10 Essential (primary) hypertension; Z79.4 Long term (current) use of insulin; Z72.0 Tobacco use; E10.9 Type 1 diabetes mellitus without complications
CPT/HCPCS: 71045; 80053; 81001; 83880; 85025; 87086; 93971; 96374; 96375; 96376; 99285; J0360; J1940; J2270; J3490

== ENCOUNTER 2024-11-06 10:05 | Emergency (ER) | payer MEDICAID, SELFPAY ==
[2024-11-06 10:16] VITALS: BP 230/129; PULSE 118; RESP 17; TEMP 36.7; O2SAT 98; BMI 33.7
--- NOTE | 2024-11-06 10:23 | ED_ITS ---
HPI - General Adult 2 General: Chief complaint: General Medical Stated complaint: high BP/chest conjestion Time Seen by Provider: 11/06/24 10:19 History of Present Illness: 34-year-old male presents emergency room with elevated blood pressure. Patient was at [facility] [place] this morning he had not taken any of his blood pressure medications and was noted to have markedly elevated blood pressure. Initial manual blood pressure 220/140. He is diabetic as well. He is on amlodipine carvedilol clonidine Lasix hydralazine. He had not taken any of his medicines this morning. He has had a little cough cold-like symptoms recently no hemoptysis. No vision changes. No difficulty speech or gait Associated symptoms: Deny chest pain, dyspnea or rash Related Data Home Medications Medication Instructions Recorded Confirmed amlodipine 10 mg tablet 10 mg PO QAM 09/16/23 11/06/24 blood-glucose sensor ([employer] G7 #1 ea 10/21/23 11/06/24 Sensor device) insulin lispro 100 unit/mL 10 unit SUBCUT TID 07/24/24 11/06/24 subcutaneous pen (Humalog KwikPen (U-100) Insulin) amitriptyline 50 mg tablet 50 mg PO BEDTIME 11/06/24 11/06/24 bupropion HCl 150 mg 24 hr tablet, 150 mg PO DAILY 11/06/24 11/06/24 extended release carvedilol 25 mg tablet 25 mg PO Q12H 11/06/24 11/06/24 clonidine HCl 0.1 mg tablet See Rx Instructions .Route .COMPLEX 11/06/24 11/06/24 epinephrine 0.3 mg/0.3 mL See Rx Instructions .Route .COMPLEX 11/06/24 11/06/24 injection, auto-injector furosemide 80 mg tablet See Rx Instructions .Route .COMPLEX 11/06/24 11/06/24 hydralazine 100 mg tablet 100 mg PO Q8H 11/06/24 11/06/24 insulin glargine 100 unit/mL (3 100 unit SUBCUT BID 11/06/24 11/06/24 mL) subcutaneous pen (Lantus Solostar U-100 Insulin) lidocaine 4 % topical patch 1 patch topical DAILY PRN Pain 11/06/24 11/06/24 tizanidine 4 mg tablet 4 mg PO Q8H PRN Pain 11/06/24 11/06/24 Previous Rx's Medication Instructions Recorded Intraoperative Neuromonitoring #1 ea 08/22/22 insulin syringe-needle U-100 1 mL #100 ea 06/27/23 31 gauge x 5/16 (BD Insulin Syringe Ultra-Fine) pen needle, diabetic 32 gauge x #100 ea 06/27/23 1/4 (BD Ultra-Fine Micro Pen Needle) blood sugar diagnostic (True #100 ea 10/04/23 Metrix Glucose Test Strip) blood-glucose meter (True Metrix #1 ea 10/04/23 Air Glucose Meter kit) lancets 31 gauge #100 ea 10/04/23 Allergies Allergy/AdvReac Type Severity Reaction Status Date / Time bee venom protein (honey bee) Allergy Unknown Verified 11/06/24 09:06 lisinopril Allergy Unknown Verified 11/06/24 09:06 Review of Systems 2 Const: Denies: fever(s) or chills Card: Denies: chest pain Resp: Denies: dyspnea GI: Denies: abdominal pain : Denies: dysuria, urinary frequency or urinary urgency Musc: Denies: neck pain or back pain Skin/Breast: Denies: rash PFSH ED 2 PFSH: Medical History Other stimulant abuse, uncomplicated Waking at night short of breath Snoring Hypersomnia Insomnia Noncompliance w/medication treatment due to intermit use of medication Schizophrenia Methamphetamine abuse Uncontrolled hypertension Type 1 diabetes Family History Other CAD (coronary artery disease) Hypertension Stroke Social History Smoking and tobacco/nicotine status: current every day tobacco/nicotine user Alcohol intake: former Substance/Drug Use: former Date of last use: Amphetamines more than 62 days ago Caregiver/support person: Yes Lives independently: Yes Household members: other Current occupation: [employer] Physical Exam 2 Const: GENERAL APPEARANCE: cooperative ORIENTATION/CONSCIOUSNESS: Yes awake, Yes oriented to person, Yes oriented to place and Yes oriented to time HENMT: COMMON NORMALS: normocephalic, atraumatic and hearing grossly normal bilaterally HEAD & SCALP: normocephalic and atraumatic Resp: COMMON NORMALS: normal respiratory effort, No retractions, No use of accessory muscles and clear to auscultation bilaterally AUSCULTATION: clear to auscultation bilaterally Cardio: COMMON NORMALS: regular rate, regular rhythm and No murmurs present (Cardio) RATE: regular rate RHYTHM: regular rhythm GI: COMMON NORMALS: Soft to palpation and No hepatosplenomegaly present A USCULTATION: Yes normoactive bowel sounds PALPATION: Yes Soft to palpation, No Tenderness to palpation present (GI), No Guarding due to palpation present (GI) and Yes No hepatosplenomegaly present Extremity: COMMON NORMALS: normal to inspection, capillary refill normal, no clubbing, cyanosis or edema, no calf tenderness and no pedal edema Neuro: SENSORIUM/ORIENTATION: Yes oriented to person, Yes oriented to place and Yes oriented to time Skin: COMMON NORMALS: no rashes or lesions noted GENERAL SKIN EXAM: no rashes or lesions noted Course 2 Vital Signs: Vital signs: Vital Signs Temperature 98.0 F 11/06/24 10:16 Pulse Rate 90 11/06/24 12:44 Respiratory Rate 17 11/06/24 10:16 Blood Pressure 150/80 11/06/24 12:44 Pulse Oximetry 99 11/06/24 12:44 Oxygen Delivery Me thod Room Air 11/06/24 10:16 [facility] - General Adult Medical Decision Making Blood pressure improved after patient given his regular medications and dose of labetalol. He is feeling somewhat better repeat exam unremarkable. Will discharge patient home discussed with especially with some of the medications he sounds a clonidine hydralazine carvedilol rebound hypertension is a significant issue if he is late with his medications. Medical Records I reviewed the patient's medical records. Lab Data I reviewed the patient's lab results. 11/06/24 10:33 11/06/24 10:33 Radiology Impressions Chest X-Ray 11/06/24 10:23 Impression: Patchy opacity in retrocardiac region of left lower lobe suggestive of pneumonia. Laboratory Results WBC 11.49 10^3/uL (3.29-11.43) H 11/06/24 10:33 RBC 3.72 10^6/uL (3.85-5.65) L 11/06/24 10:33 Hgb 11.00 g/dL (11.27-16.99) L 11/06/24 10:33 Hct 33.2 % (37-53) L 11/06/24 10:33 MCV 89.2 fl (82-101) 11/06/24 10:33 MCH 29.6 pg (27-33) 11/06/24 10:33 MCHC 33.1 g/dL (30-55) 11/06/24 10:33 RDW 13.4 % (12.1-15.1) 11/06/24 10:33 Plt Count 397 10^3/cmm (157-399) 11/06/24 10:33 MPV 9.8 fL (7.4-10.4) 11/06/24 10:33 Neut % (Auto) 73.2 % 11/06/24 10:33 Lymph % (Auto) 18.8 % 11/06/24 10:33 Saunders % (Auto) 5.5 % 11/06/24 10:33 Eos % (Auto) 1.3 % 11/06/24 10:33 Baso % (Auto) 0.9 % 11/06/24 10:33 Neut # (Auto) 8.42 10^3/uL (1.8-7.7) H 11/06/24 10:33 Lymph # (Auto) 2.2 10^3/uL (0.8-4.8) 11/06/24 10:33 Saunders # (Auto) 0.6 10^3/uL (0.2-0.9) 11/06/24 10:33 Eos # (Auto) 0.2 10^3/uL (0.0-0.8) 11/06/24 10:33 Baso # (Auto) 0.1 10^3/uL (0.0-0.1) 11/06/24 10:33 Nucleated RBC % (auto) 0 % 11/06/24 10:33 Nucleated RBCs # 0.0 /100WBC 11/06/24 10:33 Sodium 132 mmol/L (136-145) L 11/06/24 10:33 Potassium 4.0 mmol/L (3.5-5.1) 11/06/24 10:33 Chloride 101 mmol/L (98-107) 11/06/24 10:33 Carbon Dioxide 17 mmol/L (22-29) L 11/06/24 10:33 Anion Gap 18.0 (5-19) 11/06/24 10:33 BUN 30 mg/dL (6-20) H 11/06/24 10:33 Creatinine 3.5 mg/dL (0.7-1.2) H 11/06/24 10:33 GFR Calculation 20.2 mL/min (90-130) L 11/06/24 10:33 Glucose 338 mg/dL (65-115) H 11/06/24 10:33 Calculated Osmolality 293 mOsm/kg (285-295) 11/06/24 10:33 Calcium 8.2 mg/dL (8.5-10.5) L 11/06/24 10:33 Total Bilirubin 0.2 mg/dL (0.15-1.2) 11/06/24 10:33 AST 15 U/L (0-40) 11/06/24 10:33 ALT 14 U/L (0-41) 11/06/24 10:33 Alkaline Phosphatase 106 U/L (40-130) 11/06/24 10:33 Total Protein 5.8 g/dL (6.6-8.7) L 11/06/24 10:33 Albumin 2.2 g/dL (3.5-5.2) L 11/06/24 10:33 Globulin 3.6 g/dL (1.3-4.6) 11/06/24 10:33 Urine Color Yellow (Yellow) 11/06/24 12:30 Urine Appearance Clear (CLEAR) 11/06/24 12:30 Urine pH 6.0 (5-7) 11/06/24 12:30 Ur Specific [place] 1.027 (1.005-1.030) 11/06/24 12:30 Urine Protein 4+ (Negative) A 11/06/24 12:30 Urine Glucose (UA) 3+ (Normal) H 11/06/24 12:30 Urine Ketones Negative (Negative) 11/06/24 12:30 Urine Blood 2+ (Negative) A 11/06/24 12:30 Urine Nitrate Negative (Negative) 11/06/24 12:30 Urine Bilirubin Negative (Negative) 11/06/24 12:30 Urine Urobilinogen 0.2 mg/dL (Negative) 11/06/24 12:30 Ur Leukocyte Esterase Negative (Negative) 11/06/24 12:30 Urine RBC 21-50 /hpf (0-2) H 11/06/24 12:30 Urine WBC 0-5 /hpf (0-5) 11/06/24 12:30 Ur Squamous Epith Cells 0-5 /hpf (0-5) 11/06/24 12:30 Amorphous Sediment Not Reportable 11/06/24 12:30 Urine Bacteria None seen /hpf (NONE) 11/06/24 12:30 Hyaline Casts 41.35 /lpf 11/06/24 12:30 All radiology interpretation(s) finalized by discharge Discharge Plan Discharge Patient Disposition: Home Clinical Impression: Hypertension Condition: Stable Prescriptions: No Action (DME) blood-glucose meter [True Metrix Air Glucose Meter] Kit See Rx Instructions .Route Qty: 1 0RF Rx Instructions: As directed (DME) True Metrix Glucose Test Strip Strip See Rx Instructions .Route Qty: 100 0RF Rx Instructions: As directed (DME) lancets 31 gauge misc See Rx Instructions .Route Qty: 100 0RF Rx Instructions: As directed (DME) Dexcom G7 Sensor Device See Rx Instructions .ROUTE .MEDSUPPLY Qty: 1 Rx Instructions: As directed (DME) Intraoperative Neuromonitoring See Rx Instructions .Route .MEDSUPPLY Qty: 1 0RF Rx Instructions: As directed (DME) pen needle, diabetic [BD Ultra-Fine Micro Pen Needle] 32 gauge x 1/4 needle See Rx Instructions .ROUTE .MEDSUPPLY Qty: 100 3RF Rx Instructions: As directed (DME) insulin syringe-needle U-100 [BD Insulin Syringe Ultra-Fine] 1 mL 31 gauge x 5/16 syringe See Rx Instructions .ROUTE .COMPLEX Qty: 100 1RF Dose Instruction: DIRECTED Rx Instructions: DIRECTED amlodipine 10 mg tablet 10 mg PO QAM insulin lispro [Humalog KwikPen Insulin] 100 unit/mL Insulin Pen 10 unit SUBCUT TID Rx Instructions: inject 10 units tid before meals plus medium sliding scale carvedilol 25 mg Tablet 25 mg PO Q12H Rx Instructions: must administer with a meal/food clonidine HCl 0.1 mg Tablet See Rx Instructions .ROUTE .COMPLEX Rx Instructions: take 2tablets by mouth three times a day if top number is 200 or higher and or bottom number is over 100. lidocaine 4 % Adhesive Patch,Medicated 1 patch TOPICAL DAILY PRN (Reason: Pain) tizanidine 4 mg tablet 4 mg PO Q8H PRN (Reason: Pain) amitriptyline 50 mg tablet 50 mg PO BEDTIME furosemide 80 mg tablet See Rx Instructions .ROUTE .COMPLEX Rx Instructions: Take 1 tablet by mouth twice daily ,7hours apart. hydralazine 100 mg tablet 100 mg PO Q8H epinephrine 0.3 mg/0.3 mL auto-injector See Rx Instructions .ROUTE .COMPLEX Rx Instructions: INJECT 0.3 INTRAMUSCULARLY ONCE DAILY NEEDED FOR ANAPHYLAXIS bupropion HCl 150 mg tablet extended release 24 hr 150 mg PO DAILY insulin glargine [Lantus Solostar U-100 Insulin] 100 unit/mL (3 mL) insulin pen 100 unit SUBCUT BID Discharge Orders: Discharge ED (Routine); Ordered 11/06/24 Ordered By: Adan Reed Referrals: Jason Ariza FNP [Primary Care Provider] - Discharge Diet: Usual diet Discharge Activity: Increase activity as tolerated Patient Instructions: Opioid Safety, Pain Management Activity Restrictions/Additional Instructions: Thank you for choosing [facility] for your healthcare needs today. It is very important that you follow up as instructed or that you return to the Emergency Department should you have concerns or if your condition changes or worsens in any way. You were seen in the emergency room with elevated blood pressure. This likely result of not having taking her blood pressure medications. Several of the medications that you are on are very time sensitive if they are late you are likely to get rebound hypertension where your blood pressure will become higher than it normally is without medications because you missed the medicines. Your blood pressure improved while you were in the emergency room and we gave you your blood pressure medications that you usually take. We have given you your morning doses of spironolactone hydralazine clonidine carvedilol. Coding Level of Care Code ED Hospitality Intern for Bessie Gaxiola
--- NOTE | 2024-11-06 10:23 | XR_ITS ---
WS: [id number] Portable AP upright chest, 11/06/2024 Clinical Data: dyspnea/cough Comparison: Portable chest, 07/24/2024 Findings: There is a patchy opacity in the retrocardiac region of the left lower lobe. There may be a small left effusion. No nodules or masses are seen. The heart is normal. The pulmonary vascularity is not increased. No pneumothorax is seen. There is an old midshaft fracture of the right clavicle wi th elevation of the proximal fracture fragment. XR/XR chest 1V portable [id number] Impression: Patchy opacity in retrocardiac region of left lower lobe suggestive of pneumoni a.
[2024-11-06 10:39] LABS: Basophils # 0.1 10^3/uL (0.0-0.1); Basophils % 0.9 %; Eosinophils # 0.2 10^3/uL (0.0-0.8); Eosinophils % 1.3 %; Hematocrit 33.2 % (37-53); Lymphocytes # 2.2 10^3/uL (0.8-4.8); Lymphocytes % 18.8 %; Mean Corpuscular HGB Conc 33.1 g/dL (30-55); Mean Corpuscular Hemoglobin 29.6 pg (27-33); Mean Corpuscular Volume 89.2 fl (82-101); Mean Platelet Volume 9.8 fL (7.4-10.4); Monocytes # 0.6 10^3/uL (0.2-0.9); Monocytes % 5.5 %; Neutrophils # 8.42 10^3/uL (1.8-7.7); Neutrophils % 73.2 %; Nucleated Red Blood Cells % 0 %; Platelet Count 397 10^3/cmm (157-399); Red Blood Count 3.72 10^6/uL (3.85-5.65); Red Cell Distribution Width 13.4 % (12.1-15.1); White Blood Count 11.49 10^3/uL (3.29-11.43)
--- NOTE | 2024-11-06 10:45 | ECG_ITS ---
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 Measurements Intervals [place] Rate: 108 P: 72 MN: 144 QRS: 82 QRSD: 88 T: 177 QT: 361 QTc: 486 Interpretive Statements SINUS TACHYCARDIA NONSPECIFIC T-WAVE ABNORMALITY Compared to ECG 10/21/2023 09:52:39 Sinus rhythm no longer present T-wave abnormality still present Electronically Signed On 11-07-2024 23:10:28 CORPORATE SERVICES MANAGER by Manish Crystal M.D. [id number]
[2024-11-06 10:48] VITALS: BP 220/140
[2024-11-06] MEDS: labetalol 5 mg/mL SDV 20mL 10 MG IVP (10:54)
[2024-11-06 10:55] LABS: Alanine Aminotransferase 14 U/L (0-41); Albumin Level 2.2 g/dL (3.5-5.2); Alkaline Phosphatase 106 U/L (40-130); Aspartate Amino Transferase 15 U/L (0-40); Blood Urea Nitrogen 30 mg/dL (6-20); Calcium 8.2 mg/dL (8.5-10.5); Carbon Dioxide 17 mmol/L (22-29); Chloride 101 mmol/L (98-107); Creatinine Clr Calc Pharmacy 38.5882; Globulin 3.6 g/dL (1.3-4.6); Glomerular Filtration Rate 20.2 mL/min (90-130); Glucose 338 mg/dL (65-115); Osmolality Calculated 293 mOsm/kg (285-295); Sodium 132 mmol/L (136-145); Total Bilirubin 0.2 mg/dL (0.15-1.2); Total Protein 5.8 g/dL (6.6-8.7)
[2024-11-06] MEDS: hyDRALAzine 20 mg/mL INJ 1 mL IVP (10:55)
[2024-11-06] MEDS: hyDRALAzine 25 mg Tablet 50 MG PO (10:56)
[2024-11-06 10:57] VITALS: BP 220/140
[2024-11-06] MEDS: spironolactone 25 mg Tablet PO (10:57)
[2024-11-06] MEDS: cloNIDine 0.1 mg Tablet PO (10:57)
[2024-11-06] MEDS: carvedilol 25 mg Tablet 12.5 MG PO (10:57)
--- NOTE | 2024-11-06 11:25 | PC.PHAR ---
Patient showed me his med list off the [employer] [facility] Portal. Patient states he took his Medications yesterday . I phoned the Pharmacies he had listed . [facility] states Dolly called in meds back in July that patient did picker and sorter load and unload but there was no refills and some things that were called in At later dates ,he didn't picker and sorter load and unload or were cancelled by a different doctor . I also called [facility] and they verified that patient picked up some Benzonatate capsules in September but most everything else was a few months prior . They had a few things but they were never picked up .Nothing current .
[2024-11-06 12:21] VITALS: BP 150/80; PULSE 95
[2024-11-06 12:44] VITALS: BP 150/80; PULSE 90; O2SAT 99
[2024-11-06] MEDS: amlodipine 10 mg Tablet PO (12:44)
[2024-11-06 12:46] LABS: Bilirubin Urine Negative (Negative); Blood Urine 2+ (Negative); Glucose Urine UA 3+ (Normal); Ketones Urine Negative (Negative); Leukocyte Esterase Urine Negative (Negative); Nitrate Urine Negative (Negative); Protein Urine 4+ (Negative); Specific Gravity, Urine 1.027 (1.005-1.030); Urine Appearance Clear (CLEAR); Urine Color Yellow (Yellow); Urobilinogen Urine 0.2 mg/dL (Negative)
[2024-11-06 12:53] LABS: Add Urine Microscopic? YES; Bacteria Urine None Seen /hpf; Hyaline Casts Urine 41.35 /lpf; RBC Urine 21-50 /hpf (0-2); Squamous Epithelial Cell Urine 0-5 /hpf (0-5); WBC Urine 0-5 /hpf (0-5)
[2024-11-06 13:07] LABS: UA Slide Review UA Slide Review Perf
[2024-11-06 13:09] LABS: Add Urine Culture? Yes
== END 2024-11-06 12:45 | disposition home or self-care (01) ==
PROVIDERS: Emergency Provider Family Medicine; PCP Nurse Practitioner Family
DX: I10 Essential (primary) hypertension (principal); Z79.4 Long term (current) use of insulin; Z72.0 Tobacco use; E10.9 Type 1 diabetes mellitus without complications
CPT/HCPCS: 71045; 80053; 81001; 85025; 87086; 93005; 96374; 96375; 99285; J0360; J3490

== ENCOUNTER 2024-11-13 15:46 | Outpatient (CLI) | payer MEDICAID, SELFPAY ==
[2024-11-13 16:50] LABS: Albumin Level 2.3 g/dL (3.5-5.2); Anion Gap 18.8 (5-19); Blood Urea Nitrogen 35 mg/dL (6-20); Calcium 7.7 mg/dL (8.5-10.5); Carbon Dioxide 20 mmol/L (22-29); Chloride 98 mmol/L (98-107); Glomerular Filtration Rate 12.8 mL/min (90-130); Glucose 304 mg/dL (65-115); Phosphorus 6.5 mg/dL (2.5-4.5); Potassium 3.8 mmol/L (3.5-5.1); Sodium 133 mmol/L (136-145)
[2024-11-13 16:54] LABS: Creatinine Urine, Random 79 mg/dL (39-259)
[2024-11-13 17:51] LABS: Microalbum Creatinine Ratio Ur 7392 mg/dL (0-20); Microalbumin Random Urine > 584 ug/dL (0-20)
== END 2024-11-13 15:47 | disposition home or self-care (01) ==
LOC: LAB 15:56
PROVIDERS: PCP Nurse Practitioner Family; Visit Provider Internal Medicine
DX: N18.4 Chronic kidney disease, stage 4 (severe) (principal)
CPT/HCPCS: 36415; 80069; 82044

== ENCOUNTER 2024-12-12 17:52 | Observation (INO) | payer MEDICAID, SELFPAY ==
[2024-12-12] VITALS (8 sets, daily range): BP systolic 153–219; BP diastolic 92–121; PULSE 83–98; RESP 11–24; TEMP 36.6–37.1; O2SAT 91–100; BMI 5272.5
--- NOTE | 2024-12-12 18:30 | XRR_ITS ---
PROCEDURE INFORMATION: Exam: XR Chest Exam date and time: 12/12/2024 6:44 PM Age: 34 years old Clinical indication: Chest pressure; Chest pain; Cough; SOB; Additional info: Cp TECHNIQUE: Imaging protocol: Radiologic exam of the chest. Views: 1 view. COMPARISON: CR XR chest 1V portable [id number] 11/06/2024 10:42 AM FINDINGS: Tubes, catheters and devices: Interval placement of the right IJ dialysis catheter with the tip in the upper right atrium. Lungs: Increasing central pulmonary vascular congestion with hazy and streaky opacities in the mid to lower lung zones bilaterally. Pleural spaces: Suspected small left pleural effusion. Possible small right pleural effusion. Heart/Mediastinum: Stable cardiomediastinal silhouette. Bones/joints: Old mid shaft fracture of the right clavicle again noted. XR/XR chest 1V portable [id number] IMPRESSION: 1. Increasing central pulmonary vascular congestion with bibasilar opacities which could reflect mild pulmonary edema. Infiltrate not excluded in the correct clinical setting. 2. Possible small bilateral pleural effusions.
--- NOTE | 2024-12-12 18:31 | ECG_ITS ---
[employer] Test Date: 2024-12-12 Pat Name: Hunter San Department: Room: Gender: Male Electrophysiology Technician: : 1990 Requested By: Chadd Gracia Order Number: [id number] Mckay MD: Les Freed M.D. Measurements Intervals [place] Rate: 98 P: 75 AR: 151 QRS: 96 QRSD: 100 T: 92 QT: 355 QTc: 455 Interpretive Statements SINUS RHYTHM BORDERLINE RIGHT AXIS DEVIATION LOW QRS VOLTAGE IN PRECORDIAL LEADS SEPTAL MYOCARDIAL INFARCTION , PROBABLY OLD Compared to ECG 12/12/2024 17:59:11 No significant change Electronically Signed On 12-13-2024 12:12:06 TAPE SEWING MACHINE OPERATOR by Les Freed M.D. [email or web address]
[2024-12-12] MEDS: ondansetron 2 mg/ML SDV 2 mL 4 MG IVP (18:55)
--- NOTE | 2024-12-12 18:56 | ED_ITS ---
HPI - Chest Pain 2 General: Chief Complaint: Chest Pain Stated Complaint: chest pain Time Seen by Provider: 12/12/24 18:06 History of Present Illness: 34-year-old male with a history of type 1 diabetes, hypertension, and now end- stage renal disease on dialysis. He presents with chest pain. He was hospitalized until yesterday last week at [facility] in [place] getting a dialysis port and receiving a couple of episodes of dialysis, his last yesterday before leaving. He developed chest pain at rest this evening at home. He is short of breath. He denies fever or cough. He denies significant leg swelling. He says that he had similar chest discomfort prior to going into the hospital last week. Related Data Home Medications ?Medication ?Instructions ?Recorded ?Confirmed amlodipine 10 mg tablet 10 mg PO QAM 09/16/23 blood-glucose sensor (MarketVibe G7 #1 ea 10/21/23 5 Sensor device) insulin lispro 100 unit/mL 10 unit SUBCUT TID 07/24/24 11/06/24 subcutaneous pen (Humalog KwikPen (U-100) Insulin) amitriptyline 50 mg tablet 50 mg PO BEDTIME 11/06/24 0 11/06/24 bupropion HCl 150 mg 24 hr tablet, 150 mg PO DAILY 11/06/24 extended release carvedilol 25 mg tablet 25 mg PO Q12H 11/06/2411/06 clonidine HCl 0.1 mg tablet See Rx Instructions .Route .COMPLEX 11/06/24 11/06/24 epinephrine 0.3 mg/0.3 mL See Rx Instructions .Route . COMPLEX 11/06/24 11/06/24 injection, auto-injector furosemide 80 mg tablet See Rx Instructions .Route . COMPLEX 11/06/24 11/06/24 hydralazine 100 mg tablet 100 mg PO Q8H 11/06/2411/06 insulin glargine 100 unit/mL (3 100 unit SUBCUT BID 11/06/24 mL) subcutaneous pen (Lantus Solostar U-100 Insulin) lidocaine 4 % topical patch 1 patch topical DAILY PRN Pain 11/06/24 11/06/24 tizanidine 4 mg tablet 4 mg PO Q8H PRN Pain 5 11/06/24 Previous Rx's ?Medication ?Instructions ?Recorded Intraoperative Neuromonitoring #1 ea 08/22/22 insulin syringe-needle U-100 1 mL #100 ea 06/27/23 31 gauge x 5/16 (BD Insulin Syringe Ultra-Fine) pen needle, diabetic 32 gauge x #100 ea 06/27/23 1/4 (BD Ultra-Fine Micro Pen Needle) blood sugar diagnostic (True #100 ea 10/04/23 Metrix Glucose Test Strip) blood-glucose meter (True Metrix #1 ea 10/04/23 Air Glucose Meter kit) lancets 31 gauge #100 ea 10/04/23 Allergies Allergy/AdvReac Type Severity Reaction Status Date / Time bee venom protein (honey bee) Allergy Unknown Verified 11/06/24 09:06 lisinopril Allergy Unknown Verified 11/06/24 09:06 PFSH ED 2 PFSH: Medical History Other stimulant abuse, uncomplicated Waking at night short of breath Snoring Hypersomnia Insomnia Noncompliance w/medication treatment due to intermit use of medication Schizophrenia Methamphetamine abuse Uncontrolled hypertension Type 1 diabetes Family History Other CAD (coronary artery disease) Hypertension Stroke Social History Smoking and tobacco/nicotine status: current every day tobacco/nicotine user Alcohol intake: former Substance/Drug Use: former Date of last use: Amphetamines more than 62 days ago Caregiver/support person: Yes Lives independently: Yes Household members: other Current occupation: [employer] Physical Exam 2 Const: GENERAL APPEARANCE: cooperative, anxious and ill appearing; not frail appearing HENMT: COMMON NORMALS: normocephalic, atraumatic and Normal external nose present HEAD & SCALP: normocephalic and atraumatic FACE & SINUS: normal facial exam and face symmetric NOSE: Normal external nose present Eye: COMMON NORMALS: Equal, round and reactive pupils present and EOMs intact bilaterally PUPIL: Yes Equal, round and reactive pupils present Neck/C-Spine: GENERAL: Yes trachea midline Chest: CHEST: Yes Symmetrical chest wall rise Resp: COMMON NORMALS: No retractions, No use of accessory muscles and clear to auscultation bilaterally EFFORT & INSPECTION: Yes tachypneic AUSCULTATION: clear to auscultation bilaterally Cardio: COMMON NORMALS: regular rate and regular rhythm RATE: regular rate RHYTHM: regular rhythm GI: COMMON NORMALS: Normal to inspection, nondistended, normoactive bowel sounds present Extremity: COMMON NORMALS: no pedal edema Neuro: ANIBAL COMA SCALE: document GCS findings Rosman coma scale eye opening: Spontaneous Rosman coma scale verbal response: Orientated Rosman coma scale motor response: Obey commands Rosman coma scale total score: 15 S ENSORY EXAM: Yes extremities (intact) Psych: COMMON NORMALS: speech normal SPEECH: Yes normal speech Skin: COMMON NORMALS: no rashes or lesions noted GENERAL SKIN EXAM: no rashes or lesions noted Course 2 Vital Signs: Vital signs: Vital Signs Temperature 98.7 F 12/12/24 17:53 Pulse Rate 83 12/12/24 21:42 Respiratory Rate 11 L 12/12/24 21:42 Blood Pressure 157/95 12/12/24 21:42 Pulse Oximetry 93 12/12/24 21:42 Oxygen Delivery Me thod Nasal Cannula 12/12/24 21:42 Oxygen Flow Rate 2 12/12/24 21:42 MDM - Chest Pain Medical Decision Making Patient is mildly tachypneic. He is not hypoxic. Rates in the 90s. Blood pressure 191/108. He reports being always hypertensive. Blood pressure improved after labetalol. His creatinine is 4. His electrolytes are normal. His hemoglobin is 9. Chest x-ray shows pulmonary edema with minimal effusions. He is on 2 L currently. Saturations are 91 to 93%. He is more comfortable on oxygen. Spoke with hospitalist. Will observe and dialyze. Spoke with nephrology as well, they are willing to consult in the morning. Lab Data 12/12/24 18:53 12/12/24 18:53 Radiology Impressions Chest X-Ray 12/12/24 18:30 IMPRESSION: 1. Increasing central pulmonary vascular congestion with bibasilar opacities which could reflect mild pulmonary edema. Infiltrate not excluded in the correct clinical setting. 2. Possible small bilateral pleural effusions. Laboratory Results WBC 10.14 10^3/uL (3.29-11.43) 12/12/24 18:53 RBC 3.14 10^6/uL (3.85-5.65) L 12/12/24 18:53 Hgb 9.00 g/dL (11.27-16.99) L 12/12/24 18:53 Hct 28.8 % (37-53) L 12/12/24 18:53 MCV 91.7 fl (82-101) 12/12/24 18:53 MCH 28.7 pg (27-33) 12/12/24 18:53 MCHC 31.3 g/dL (30-55) 12/12/24 18:53 RDW 14.3 % (12.1-15.1) 12/12/24 18:53 Plt Count 393 10^3/cmm (157-399) 12/12/24 18:53 MPV 11.2 fL (7.4-10.4) H 12/12/24 18:53 Neut % (Auto) 76.6 % 12/12/24 18:53 Lymph % (Auto) 12.8 % 12/12/24 18:53 Bacon % (Auto) 8.3 % 12/12/24 18:53 Eos % (Auto) 1.0 % 12/12/24 18:53 Baso % (Auto) 0.9 % 12/12/24 18:53 Neut # (Auto) 7.77 10^3/uL (1.8-7.7) H 12/12/24 18:53 Lymph # (Auto) 1.3 10^3/uL (0.8-4.8) 12/12/24 18:53 Bacon # (Auto) 0.8 10^3/uL (0.2-0.9) 12/12/24 18:53 Eos # (Auto) 0.1 10^3/uL (0.0-0.8) 12/12/24 18:53 Baso # (Auto) 0.1 10^3/uL (0.0-0.1) 12/12/24 18:53 Nucleated RBC % (auto) 0 % 12/12/24 18:53 Nucleated RBCs # 0.0 /100WBC 12/12/24 18:53 PT 14.50 SECONDS (12.1-14.9) 12/12/24 18:53 INR 1.05 (0.8-1.2) 12/12/24 18:53 APTT 33.7 SECONDS (23.9-36.7) 12/12/24 18:53 Sodium 134 mmol/L (136-145) L 12/12/24 18:53 Potassium 4.7 mmol/L (3.5-5.1) 12/12/24 18:53 Chloride 99 mmol/L (98-107) 12/12/24 18:53 Carbon Dioxide 24 mmol/L (22-29) 12/12/24 18:53 Anion Gap 15.7 (5-19) 12/12/24 18:53 BUN 25 mg/dL (6-20) H 12/12/24 18:53 Creatinine 4.0 mg/dL (0.7-1.2) H 12/12/24 18:53 GFR Calculation 17.3 mL/min (90-130) L 12/12/24 18:53 Glucose 256 mg/dL (65-115) H 12/12/24 18:53 POC Glucose 240 mg/dL (70-110) H 12/12/24 19:44 Calculated Osmolality 291 mOsm/kg (285-295) 12/12/24 18:53 Calcium 8.2 mg/dL (8.5-10.5) L 12/12/24 18:53 Phosphorus 3.9 mg/dL (2.5-4.5) 12/12/24 18:53 Magnesium 1.9 mg/dL (1.7-2.3) 12/12/24 18:53 Total Bilirubin 0.4 mg/dL (0.15-1.2) 12/12/24 18:53 AST 81 U/L (0-40) H 12/12/24 18:53 ALT 319 U/L (0-41) H 12/12/24 18:53 Alkaline Phosphatase 309 U/L (40-130) H 12/12/24 18:53 Troponin T Baseline 208 ng/L (0-15) H* 12/12/24 18:53 Troponin T 120 Minute 204.0 ng/L (0-15) H 12/12/24 20:29 Delta Troponin T -4.0 ABS# (0-10) L 12/12/24 20:29 NT-Pro-B Natriuret Pep 84616 pg/mL (0-125) H 12/12/24 18:53 Total Protein 5.6 g/dL (6.6-8.7) L 12/12/24 18:53 Albumin 2.3 g/dL (3.5-5.2) L 12/12/24 18:53 Globulin 3.3 g/dL (1.3-4.6) 12/12/24 18:53 Urine Color Yellow (Yellow) 12/12/24 18:40 Urine Appearance Cloudy (CLEAR) A 12/12/24 18:40 Urine pH 8.0 (5-7) A 12/12/24 18:40 Ur Specific [place] 1.018 (1.005-1.030) 12/12/24 18:40 Urine Protein 4+ (Negative) A 12/12/24 18:40 Urine Glucose (UA) 3+ (Normal) H 12/12/24 18:40 Urine Ketones Negative (Negative) 12/12/24 18:40 Urine Blood 2+ (Negative) A 12/12/24 18:40 Urine Nitrate Negative (Negative) 12/12/24 18:40 Urine Bilirubin Negative (Negative) 12/12/24 18:40 Urine Urobilinogen 0.2 mg/dL (Negative) 12/12/24 18:40 Ur Leukocyte Esterase 1+ (Negative) A 12/12/24 18:40 Urine RBC 0-4 /hpf (0-2) H 12/12/24 18:40 Urine WBC Too numerous to cnt /hpf (0-5) H 12/12/24 18:40 Ur Squamous Epith Cells 0-4 /hpf (0-5) H 12/12/24 18:40 Amorphous Sediment Not Reportable 12/12/24 18:40 Urine Bacteria Trace /hpf (NONE) 12/12/24 18:40 Influenza A (PCR) Negative (Negative) 12/12/24 18:40 Influenza Type B (PCR) Negative (Negative) 12/12/24 18:40 RSV (PCR) Negative (Negative) 12/12/24 18:40 SARS-CoV-2 (PCR) Negative (Negative) 12/12/24 18:40 All radiology interpretation(s) finalized by discharge Discharge Plan Discharge Patient Disposition: Placed in Observation Clinical Impression: Type 1 diabetes, End stage renal disease on dialysis, Pulmonary edema Condition: Stable Prescriptions: No Action (DME) blood-glucose meter [True Metrix Air Glucose Meter] Kit See Rx Instructions .Route Qty: 1 0RF Rx Instructions: As directed (DME) True Metrix Glucose Test Strip Strip See Rx Instructions .Route Qty: 100 0RF Rx Instructions: As directed (DME) lancets 31 gauge misc See Rx Instructions .Route Qty: 100 0RF Rx Instructions: [place] [place] [facility] Dexcom G7 Sensor Device See Rx Instructions .ROUTE .MEDSUPPLY Qty: 1 Rx Instructions: [place] directed [place] Intraoperative Neuromonitoring See Rx Instructions .Route .MEDSUPPLY Qty: 1 0RF Rx Instructions: As directed [place] pen needle, diabetic [BD Ultra-Fine Micro Pen Needle] 32 gauge x 1/4 needle See Rx Instructions .ROUTE .MEDSUPPLY Qty: 100 3RF Rx Instructions: [place] [place] insulin syringe-needle U-100 [BD Insulin Syringe Ultra-Fine] 1 mL 31 gauge x 5/16 syringe See Rx Instructions .ROUTE .COMPLEX Qty: 100 1RF Dose Instruction: DIRECTED Rx Instructions: DIRECTED amlodipine 10 mg tablet 10 mg PO QAM insulin lispro [Humalog KwikPen Insulin] 100 unit/mL Insulin Pen 10 unit SUBCUT TID Rx Instructions: inject 10 units tid before meals plus medium sliding scale carvedilol 25 mg Tablet 25 mg PO Q12H Rx Instructions: must administer with a meal/food clonidine HCl 0.1 mg Tablet See Rx Instructions .ROUTE .COMPLEX Rx Instructions: take 2tablets by mouth three times a day if top number is 200 or higher and or bottom number is over 100. lidocaine 4 % Adhesive Patch,Medicated 1 patch TOPICAL DAILY PRN (Reason: Pain) tizanidine 4 mg tablet 4 mg PO Q8H PRN (Reason: Pain) amitriptyline 50 mg tablet 50 mg PO BEDTIME furosemide 80 mg tablet See Rx Instructions .ROUTE .COMPLEX Rx Instructions: Take 1 tablet by mouth twice daily ,7hours apart. 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
[2024-12-12 18:57] LABS: Bilirubin Urine Negative (Negative); Blood Urine 2+ (Negative); Glucose Urine UA 3+ (Normal); Ketones Urine Negative (Negative); Leukocyte Esterase Urine 1+ (Negative); Nitrate Urine Negative (Negative); Protein Urine 4+ (Negative); Specific Gravity, Urine 1.018 (1.005-1.030); Urine Appearance Cloudy (CLEAR); Urine Color Yellow (Yellow); Urobilinogen Urine 0.2 mg/dL (Negative)
[2024-12-12] MEDS: morphine 4 mg/mL SDV 1 mL IVP ×2 (18:57→21:15)
[2024-12-12 19:10] LABS: Basophils # 0.1 10^3/uL (0.0-0.1); Basophils % 0.9 %; Eosinophils # 0.1 10^3/uL (0.0-0.8); Hematocrit 28.8 % (37-53); Lymphocytes # 1.3 10^3/uL (0.8-4.8); Lymphocytes % 12.8 %; Mean Corpuscular HGB Conc 31.3 g/dL (30-55); Mean Corpuscular Hemoglobin 28.7 pg (27-33); Mean Corpuscular Volume 91.7 fl (82-101); Mean Platelet Volume 11.2 fL (7.4-10.4); Monocytes # 0.8 10^3/uL (0.2-0.9); Monocytes % 8.3 %; Neutrophils # 7.77 10^3/uL (1.8-7.7); Neutrophils % 76.6 %; Nucleated Red Blood Cells % 0 %; Platelet Count 393 10^3/cmm (157-399); Red Blood Count 3.14 10^6/uL (3.85-5.65); Red Cell Distribution Width 14.3 % (12.1-15.1); White Blood Count 10.14 10^3/uL (3.29-11.43)
[2024-12-12 19:15] LABS: Add Urine Culture? Yes; Add Urine Microscopic? YES; Bacteria Urine TRACE /hpf; RBC Urine 0-4 /hpf (0-2); Squamous Epithelial Cell Urine 0-4 /hpf (0-5); WBC Urine TOO NUMEROUS TO CNT /hpf (0-5)
[2024-12-12 19:18] LABS: INR 1.05 (0.8-1.2)
[2024-12-12 19:19] LABS: Partial Thromboplastin Time 33.7 SECONDS (23.9-36.7)
[2024-12-12 19:30] LABS: Alanine Aminotransferase 319 U/L (0-41); Albumin Level 2.3 g/dL (3.5-5.2); Alkaline Phosphatase 309 U/L (40-130); Anion Gap 15.7 (5-19); Aspartate Amino Transferase 81 U/L (0-40); Blood Urea Nitrogen 25 mg/dL (6-20); Calcium 8.2 mg/dL (8.5-10.5); Carbon Dioxide 24 mmol/L (22-29); Chloride 99 mmol/L (98-107); Creatinine Clr Calc Pharmacy 35.7012; Globulin 3.3 g/dL (1.3-4.6); Glomerular Filtration Rate 17.3 mL/min (90-130); Glucose 256 mg/dL (65-115); Magnesium 1.9 mg/dL (1.7-2.3); Osmolality Calculated 291 mOsm/kg (285-295); Phosphorus 3.9 mg/dL (2.5-4.5); Potassium 4.7 mmol/L (3.5-5.1); Sodium 134 mmol/L (136-145); Total Bilirubin 0.4 mg/dL (0.15-1.2); Total Protein 5.6 g/dL (6.6-8.7); Troponin(5th) Baseline 208 ng/L (0-15)
[2024-12-12 19:32] LABS: Influenza A NEGATIVE (Negative); Influenza B NEGATIVE (Negative); Respiratory Syncytial Virus Ce NEGATIVE (Negative); SARS-CoV-2 PCR NEGATIVE (Negative)
[2024-12-12 19:36] LABS: NT Pro B Type Natriuretic Pept 14433 pg/mL (0-125)
[2024-12-12 19:46] LABS: Glucose Point of Care 240 mg/dL (70-110)
[2024-12-12] MEDS: labetalol 5 mg/mL SDV 20mL 20 MG IVP (20:04)
--- NOTE | 2024-12-12 20:31 | ECG_ITS ---
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 Measurements Intervals Pollock Rate: 97 P: 75 MA: 157 QRS: 93 QRSD: 96 T: 80 QT: 367 QTc: 467 Interpretive Statements SINUS RHYTHM BORDERLINE RIGHT AXIS DEVIATION [QRS AXIS > 90] LOW QRS VOLTAGE IN PRECORDIAL LEADS [QRS DEFLECTION < 1.0 mV IN CHEST LEADS] NONSPECIFIC T-WAVE ABNORMALITY Compared to ECG 11/06/2024 10:45:15 Low QRS voltage now present Sinus tachycardia no longer present T-wave abnormality still present Electronically Signed On 12-13-2024 12:44:55 INFLATED PAD BUFFER by Les Freed M.D. [id number] [id number]
--- NOTE | 2024-12-12 21:45 | PM.HP ---
Providers/Chief Complaint Primary Care Provider: LAWANDA Garcia Chief Complaint: chest pain History of Present Illness Hunter San is a 34 year old male with history of type 1 diabetes, end-stage renal disease, recently started dialysis last Saturday, got discharged from [facility] yesterday, presented with chief complaint of worsening of shortness of breath and dizziness. Patient is stating that he was getting Saturday dialysis however his schedule at [facility] is Saturday, at home he started becoming short of breath and dizziness. He googled his symptoms and decided to call 911. He is not complaining of fever chest pain diarrhea or vomiting. In the ER patient has anasarca. X-ray consistent with pulm edema requiring 2 L of oxygen. Nephro consulted. Troponin trending down EKG without ischemic or infarctive changes. Abnormal UA. Review of Systems Const: Denies: chills Eyes: Denies: change in vision ENMT: Denies: throat pain Card: Denies: chest pain Resp: Reports: dyspnea GI: Denies: abdominal pain : Denies: flank pain Musc: Reports: extremity swelling Medications/Allergies Home Medications ?Medication ?Instructions ?Recorded ?Confirmed ?Last Taken ?Type Intraoperative Neuromonitoring #1 ea 08/22/22 11/06/24 Unknown Rx insulin syringe-needle U-100 1 mL #100 ea 06/27/23 11/06/24 Unknown Rx 31 gauge x 5/16 (BD Insulin Syringe Ultra-Fine) pen needle, diabetic 32 gauge x #100 ea 06/27/23 11/06/24 Unknown Rx 1/4 (BD Ultra-Fine Micro Pen Needle) amlodipine 10 mg tablet 10 mg PO QAM 09/16/23 11/06/24 11/05/24 History blood sugar diagnostic (True #100 ea 10/04/23 11/06/24 Unknown Rx Metrix Glucose Test Strip) blood-glucose meter (True Metrix #1 ea 10/04/23 11/06/24 Unknown Rx Air Glucose Meter kit) lancets 31 gauge #100 ea 10/04/23 11/06/24 Unknown Rx blood-glucose sensor (Dexcom G7 #1 ea 10/21/23 11/06/24 Unknown History Sensor device) insulin lispro 100 unit/mL 10 unit SUBCUT TID 07/24/24 11/06/24 11/05/24 History subcutaneous pen (Humalog KwikPen (U-100) Insulin) amitriptyline 50 mg tablet 50 mg PO BEDTIME 11/06/24 11/06/24 11/05/24 History bupropion HCl 150 mg 24 hr tablet, 150 mg PO DAILY 11/06/24 11/06/24 11/05/24 History extended release carvedilol 25 mg tablet 25 mg PO Q12H 11/06/24 11/06/24 11/05/24 History clonidine HCl 0.1 mg tablet See Rx Instructions .Route .COMPLEX 11/06/24 11/06/24 Unknown History epinephrine 0.3 mg/0.3 mL See Rx Instructions .Route .COMPLEX 11/06/24 11/06/24 Unknown History injection, auto-injector furosemide 80 mg tablet See Rx Instructions .Route .COMPLEX 11/06/24 11/06/24 11/05/24 History hydralazine 100 mg tablet 100 mg PO Q8H 11/06/24 11/06/24 11/05/24 History insulin glargine 100 unit/mL (3 100 unit SUBCUT BID 11/06/24 11/06/24 11/05/24 History mL) subcutaneous pen (Lantus Solostar U-100 Insulin) lidocaine 4 % topical patch 1 patch topical DAILY PRN Pain 11/06/24 11/06/24 Unknown History tizanidine 4 mg tablet 4 mg PO Q8H PRN Pain 11/06/24 11/06/24 Unknown History Allergies Allergy/AdvReac Type Severity Reaction Status Date / Time bee venom protein (honey bee) Allergy Unknown Verified 11/06/24 09:06 lisinopril Allergy Unknown Verified 11/06/24 09:06 PFSH Acute PFSH: Medical History Other stimulant abuse, uncomplicated Waking at night short of breath Snoring Hypersomnia Insomnia Noncompliance w/medication treatment due to intermit use of medication Schizophrenia Methamphetamine abuse Uncontrolled hypertension Type 1 diabetes Family History Other CAD (coronary artery disease) Hypertension Stroke Social History Smoking and tobacco/nicotine status: current every day tobacco/nicotine user Alcohol intake: former Substance/Drug Use: former Date of last use: Amphetamines more than 62 days ago Caregiver/support person: Yes Lives independently: Yes Household members: other Current occupation: [employer] Vitals/I&O/Wt Last Vital Signs Temp 98.7 F 12/12/24 17:53 Pulse 83 12/12/24 21:42 Resp 11 L 12/12/24 21:42 BP 157/95 12/12/24 21:42 Pulse Ox 93 12/12/24 21:42 O2 Del Method Nasal Cannula 12/12/24 21:42 O2 Flow Rate 2 12/12/24 21:42 Weight last 48 hrs Weight 126.099 kg Physical Exam Narrative: Anasarca Bilateral breath sounds with rhonchi and crackles Currently on 2 L Anasarca GCS 15 Nonfocal neuroexam No active chest pain On 2 L no active fever Present uncooperative Multiple skin tattoos Hemodynamically stable Lower extremity 2+ edema Data 12/12/24 18:53 12/12/24 18:53 A&P Assessment and plan (1) Schizophrenia: (2) Opiate dependence: (3) Uncontrolled hypertension: (4) Type 1 diabetes: (5) End stage renal disease on dialysis: (6) Pulmonary edema: (7) Hypoxia: Plan Acute hypoxia Related to pulm edema Anasarca Related to fluid overload due to end-stage renal disease Patient may need oxygen at the time of discharge Type 1 diabetes: Patient takes Lantus 25 units twice daily along moderate dose sliding scale End-stage renal disease started dialysis last Saturday, [place] has a permacath, His schedule will be Saturday at [facility] Nephro consulted Elevated troponin: Trending down: EKG without ischemic infarct changes, demand ischemia? Echo requested Concern for UTI: Start ceftriaxone Full code Renal diabetic diet DVT prophylaxis: Heparin PDMP PDMP Reviewed: Not Reviewed Attestations Medical Necessity Statement*: Anticipating discharge within 24 to 48 hours, will need dialysis, volume reduction with dialysis, requiring oxygen 2 L which is new Diagnoses Schizophrenia F20.9 Opiate dependence F11.20 Uncontrolled hypertension I10 Type 1 diabetes E10.9 End stage renal disease on dialysis N18.6; Z99.2 Pulmonary edema J81.1 Hypoxia R09.02
[2024-12-12] MEDS: heparin 5,000 unit/mL INJ 1 mL 5000 UNIT SUBCUT (22:48)
[2024-12-13] VITALS (8 sets, daily range): BP systolic 143–209; BP diastolic 83–126; PULSE 74–98; RESP 16–18; TEMP 36.2–36.7; O2SAT 91–94
[2024-12-13] MEDS: TRAMadol 50 mg Tablet PO ×4 (00:13→17:31)
[2024-12-13] MEDS: cefTRIAXone 1,000 mg SDV 1000 MG IVP (00:13)
[2024-12-13 01:07] LABS: Basophils # 0.1 10^3/uL (0.0-0.1); Basophils % 0.8 %; Eosinophils # 0.1 10^3/uL (0.0-0.8); Eosinophils % 1.6 %; Hematocrit 26.8 % (37-53); Lymphocytes # 1.7 10^3/uL (0.8-4.8); Lymphocytes % 19.2 %; Mean Corpuscular HGB Conc 32.1 g/dL (30-55); Mean Corpuscular Hemoglobin 28.7 pg (27-33); Mean Corpuscular Volume 89.3 fl (82-101); Mean Platelet Volume 11.3 fL (7.4-10.4); Monocytes # 0.7 10^3/uL (0.2-0.9); Monocytes % 8.5 %; Neutrophils # 6.05 10^3/uL (1.8-7.7); Neutrophils % 69.7 %; Nucleated Red Blood Cells % 0 %; Platelet Count 361 10^3/cmm (157-399); Red Cell Distribution Width 14.3 % (12.1-15.1); White Blood Count 8.69 10^3/uL (3.29-11.43)
[2024-12-13 01:32] LABS: Anion Gap 14.5 (5-19); Blood Urea Nitrogen 27 mg/dL (6-20); C Reactive Protein 41.4 mg/L (0.0-4.9); Carbon Dioxide 25 mmol/L (22-29); Chloride 99 mmol/L (98-107); Creatinine Clr Calc Pharmacy 46.2316; Glomerular Filtration Rate 17.8 mL/min (90-130); Glucose 285 mg/dL (65-115); Magnesium 1.8 mg/dL (1.7-2.3); Osmolality Calculated 293 mOsm/kg (285-295); Phosphorus 4.1 mg/dL (2.5-4.5); Potassium 4.5 mmol/L (3.5-5.1); Sodium 134 mmol/L (136-145)
--- NOTE | 2024-12-13 02:52 | ECG_ITS ---
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 Measurements Intervals Equality Rate: 86 P: 72 VA: 155 QRS: 100 QRSD: 92 T: 115 QT: 379 QTc: 454 Interpretive Statements SINUS RHYTHM BORDERLINE RIGHT AXIS DEVIATION [QRS AXIS > 90] LOW QRS VOLTAGE IN PRECORDIAL LEADS Compared to ECG 12/12/2024 18:58:26 Myocardial infarct finding no longer present Electronically Signed On 12-13-2024 12:42:21 HVAC ESTIMATOR by Les Freed M.D. [email or web address]
[2024-12-13 06:22] LABS: Glucose Point of Care 226 mg/dL (70-110)
[2024-12-13] MEDS: heparin 5,000 unit/mL INJ 1 mL 5000 UNIT SUBCUT (08:22)
[2024-12-13] MEDS: insulin lispro 100 unit/1 mL SUBCUT ×2 (08:22→12:05)
[2024-12-13] MEDS: sennosides-docusate Tablet 1 TAB PO (08:22)
[2024-12-13] MEDS: insulin glargine 100 units/1 mL 25 UNIT SUBCUT (09:43)
[2024-12-13 11:57] LABS: Glucose Point of Care 165 mg/dL (70-110)
[2024-12-13 12:43] LABS: Hepatitis B Surface AB 33.5 (11.5-1000); Hepatitis B Surface Antigen Non-Reactive (Nonreactive)
[2024-12-13 13:03] LABS: Hepatitis C Virus Antibody Non-Reactive (Nonreactive)
--- NOTE | 2024-12-13 13:04 | PM.CONSULT ---
Providers/Reason For Consult Consulting Physician/Specialty*: nephrology Reason for Consult*: esrd Requesting Physician: DR oRdriguez Attending Physician: Jose Rodriguez MD Primary Care Provider: LAWANDA Garcia History of Present Illness History of Present Illness Hunter San is a 34 yo male, with a history of dm1, esrd, who recently started dialysis on 12/04/24 and was discharged from [facility] on 12/11. He subsequently presented to the er on 12/12/24 complaining of worsening of shortness of breath and dizziness. Patient is stating that he was getting Saturday dialysis however his schedule at [facility] is Saturday. He notes that at home on 12/12, he became acutely short of breath with dizziness. On presentation, his cxr revealed pulmonary edema. Nephrology was consulted for hd. . Review of Systems General: Reports: 10 or more systems reviewed and unremarkable except in HPI and below Card: Reports: lightheadedness Resp: Reports: dyspnea Medications/Allergies Home Medications ?Medication ?Instructions ?Recorded ?Confirmed ?Last Taken ?Type Intraoperative Neuromonitoring #1 ea 08/22/22 12/13/24 Unknown Rx insulin syringe-needle U-100 1 mL #100 ea 06/27/23 12/13/24 Unknown Rx 31 gauge x 5/16 (BD Insulin Syringe Ultra-Fine) pen needle, diabetic 32 gauge x #100 ea 06/27/23 12/13/24 Unknown Rx 1/4 (BD Ultra-Fine Micro Pen Needle) amlodipine 10 mg tablet 10 mg PO QAM 09/16/23 12/13/24 11/05/24 History blood sugar diagnostic (True #100 ea 10/04/23 12/13/24 Unknown Rx Metrix Glucose Test Strip) blood-glucose meter (True Metrix #1 ea 10/04/23 12/13/24 Unknown Rx Air Glucose Meter kit) lancets 31 gauge #100 ea 10/04/23 12/13/24 Unknown Rx blood-glucose sensor (Dexcom G7 #1 ea 10/21/23 12/13/24 Unknown History Sensor device) insulin lispro 100 unit/mL 10 unit SUBCUT TID 07/24/24 12/13/24 11/05/24 History subcutaneous pen (Humalog KwikPen (U-100) Insulin) amitriptyline 50 mg tablet 50 mg PO BEDTIME 11/06/24 12/13/24 11/05/24 History bupropion HCl 150 mg 24 hr tablet, 150 mg PO DAILY 11/06/24 12/13/24 11/05/24 History extended release carvedilol 25 mg tablet 25 mg PO Q12H 11/06/24 12/13/24 11/05/24 History clonidine HCl 0.1 mg tablet See Rx Instructions .Route .COMPLEX 11/06/24 12/13/24 Unknown History epinephrine 0.3 mg/0.3 mL See Rx Instructions .Route .COMPLEX 11/06/24 12/13/24 Unknown History injection, auto-injector insulin glargine 100 unit/mL (3 100 unit SUBCUT BID 11/06/24 12/13/24 11/05/24 History mL) subcutaneous pen (Lantus Solostar U-100 Insulin) lidocaine 4 % topical patch 1 patch topical DAILY PRN Pain 11/06/24 12/13/24 Unknown History tizanidine 4 mg tablet 4 mg PO Q8H PRN Pain 11/06/24 12/13/24 Unknown History Allergies Allergy/AdvReac Type Severity Reaction Status Date / Time bee venom protein (honey bee) Allergy Unknown Verified 11/06/24 09:06 lisinopril Allergy Unknown Verified 11/06/24 09:06 Current Medications Generic Name Dose Route Start Last Admin Trade Name Freq PRN Reason Stop Dose Admin Ceftriaxone Sodium 1,000 mg 12/12/24 23:30 12/13/24 00:13 Ceftriaxone 1,000 Mg Sdv IVP 1,000 mg Q24H LILI Administration Protocol Heparin Sodium (Porcine) 5,000 unit 12/12/24 22:00 12/13/24 08:22 Heparin 5,000 Unit/Ml Inj 1 Ml SUBCUT 5,000 unit Q12H LILI Administration Insulin Glargine 25 unit 12/13/24 09:00 12/13/24 09:43 Insulin Glargine 100 Units/1 Ml SUBCUT 25 unit Q12H LILI Administration Insulin Human Lispro 0 unit 12/13/24 08:00 12/13/24 12:05 Insulin Lispro 100 Unit/1 Ml SUBCUT 4 unit WM&BEDTIME LILI Administration Protocol Senna/Docusate Sodium 1 tab 12/13/24 09:00 12/13/24 08:22 Sennosides-Docusate Tablet PO 1 tab DAILY LILI Administration Tramadol HCl 50 mg 12/12/24 23:59 12/13/24 12:05 Tramadol 50 Mg Tablet PO 50 mg Q4H PRN Administration MODERATE PAIN PFSH Acute PFSH: Medical History Other stimulant abuse, uncomplicated Waking at night short of breath Snoring Hypersomnia Insomnia Noncompliance w/medication treatment due to intermit use of medication Schizophrenia Methamphetamine abuse Uncontrolled hypertension Type 1 diabetes Family History Other CAD (coronary artery disease) Hypertension Stroke Social History Smoking and tobacco/nicotine status: current every day tobacco/nicotine user Alcohol intake: former Substance/Drug Use: former Date of last use: Amphetamines more than 62 days ago Caregiver/support person: Yes Lives independently: Yes Household members: other 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 Vitals/I&O/Wt Last Vital Signs Temp 97.2 F L 12/13/24 11:09 Pulse 74 12/13/24 11:09 Resp 18 12/13/24 11:09 BP 159/95 12/13/24 11:09 Pulse Ox 92 12/13/24 11:09 O2 Del Method Room Air 12/13/24 11:09 O2 Flow Rate 2 12/13/24 02:43 12/12/24 12/13/24 12/13/24 22:59 06:59 14:59 Intake Total 360 / 360 Balance 360 / 360 Weight last 48 hrs Weight 123.649 kg Weight 122.47 kg Weight 126.099 kg Physical Exam Const: COMMON NORMALS: no acute distress, average body habitus, patient oriented x3, no limitations, healthy appearing and alert GENERAL APPEARANCE: cooperative, comfortable and well developed ORIENTATION/CONSCIOUSNESS: Yes oriented to person, Yes oriented to place and Yes oriented to time HENMT: COMMON NORMALS: normocephalic and moist oral mucous membranes HEAD & SCALP: normocephalic Eye: COMMON NORMALS: EOMs intact bilaterally and no scleral icterus Neck/C-Spine: COMMON NORMALS: full ROM and no JVD Resp: COMMON NORMALS: normal respiratory effort EFFORT & INSPECTION: Yes able to speak in complete sentences AUSCULTATION: diminished lung sounds Cardio: COMMON NORMALS: no JVD, regular rate, regular rhythm, S1 normal heart sound present and S2 normal heart sound present RATE: regular rate RHYTHM: regular rhythm HEART SOUNDS: S1 normal heart sound present and S2 normal heart sound present GI: COMMON NORMALS: Soft to palpation and non-tender PALPATION: Yes Soft to palpation OTHER: distended Extremity: GENERAL: Yes edema (+2 BLE to calf ) Neuro: COMMON NORMALS: patient oriented x3 SENSORIUM/ORIENTATION: Yes alert, Yes oriented to person, Yes oriented to place and Yes oriented to time Psych: COMMON NORMALS: mental status grossly normal Skin: COMMON NORMALS: no rashes or lesions noted GENERAL SKIN EXAM: no rashes or lesions noted Data 12/13/24 00:56 12/13/24 00:56 CXR: Radiologist's impression: +ve pulmonary edema A&P Assessment and plan (1) End stage renal disease on dialysis: esrd- He is on maintenance HD on a tts schedule, but missed hd yesterday. I will plan on HD today with uf as tolerated acute chf- i will plan on uf with hd today essential hypertesnipon- bp is stable anemia in ckd- he is on an outpatient doreen and iron protocol. cont to monitor hgb dm1 PDMP PDMP Reviewed: Not Reviewed Consult Attestations Medical Necessity Statement: esrd Time Spent in Patient Care: 50 minutes Coding Level of Care Code Acute Code for Chg Fwd Diagnoses End stage renal disease on dialysis N18.6; Z99.2
[2024-12-13] MEDS: gabapentin 100 mg Capsule PO (14:00)
--- NOTE | 2024-12-13 14:28 | P.PN_ITS ---
Subjective 2 Subjective: Patient reports his breathing is improved although he notes he just woke up. Reports he takes long-acting insulin 25 units twice daily. Waiting for dialysis today. He otherwise has outpatient dialysis schedule to start this Saturday. Medications: Reviewed: Yes Vitals/I&O/Wt Last Vital Signs Temp 97.2 F L 12/13/24 11:09 Pulse 74 12/13/24 11:09 Resp 18 12/13/24 11:09 BP 159/95 12/13/24 11:09 Pulse Ox 92 12/13/24 11:09 O2 Del Method Room Air 12/13/24 11:09 O2 Flow Rate 2 12/13/24 02:43 12/12/24 12/13/24 12/13/24 22:59 06:59 14:59 Intake Total 360 / 360 Balance 360 / 360 Weight last 48 hrs Weight 123.649 kg Weight 122.47 kg Weight 126.099 kg Physical Exam 2 Narrative: General: Patient is awake. No acute distress. Conversational. Head: Normocephalic. Atraumatic. EOM intact. Neck: No JVD. Cardiovascular: RRR. No gallops. No murmurs. No peripheral edema. Lungs: Adequate air movement. No respiratory distress. No crackles. On room air. Skin: No jaundice. No rashes. Abdomen: Normal bowel sounds, abdomen soft and nontender. Extremities: No cyanosis or clubbing. Musculoskeletal: No swollen or erythematous joints. Neurological: Moves all 4 extremities. No myoclonus. Data 12/13/24 00:56 12/13/24 00:56 A&P Assessment and plan (1) Schizophrenia: (2) Opiate dependence: (3) Uncontrolled hypertension: (4) Type 1 diabetes: (5) End stage renal disease on dialysis: (6) Pulmonary edema: (7) Hypoxia: Plan Anasarca Acute pulmonary edema secondary to ESRD -Hypoxia resolved, on room air -Plan for volume control via dialysis Type 1 diabetes -Lantus 25 units twice daily -Sliding-scale correction End-stage renal disease -Recent permacath placement -Scheduled to start outpatient dialysis [place] on Saturday//Saturday -Nephrology consulted for dialysis management -Patient received dialysis today, he may be able to discharge afterwards Elevated troponin -Troponins not uptrending, plateau curve -Secondary to pulmonary edema Acute complicated urinary tract infection -On Rocephin, rotate to cefdinir at discharge Full code Renal diabetic diet DVT prophylaxis: Heparin PDMP PDMP Reviewed: Not Reviewed Attestations 2 Medical Necessity Statement*: Patient requires ongoing hospitalization today for dialysis session. Coding Level of Care Code Acute Code for Chg Fwd Diagnoses Schizophrenia F20.9 Opiate dependence F11.20 Uncontrolled hypertension I10 Type 1 diabetes E10.9 End stage renal disease on dialysis N18.6; Z99.2 Pulmonary edema J81.1 Hypoxia R09.02
[2024-12-13 16:20] LABS: Glucose Point of Care 74 mg/dL (70-110)
--- NOTE | 2024-12-13 16:24 | P.DS_ITS ---
Discharge Providers Date of Admission: 12/12/24 22:23 Date of Discharge: December 13, 2024 Attending Provider at Admission: Juan Escobar MD Attending Provider at Discharge: Jose Rodriguez MD Consults: Nephrology Primary Care Provider: LAWANDA Garcia Diagnoses at Discharge Discharge Diagnosis (1) Schizophrenia: Status: Acute (2) Opiate dependence: Status: Acute (3) Uncontrolled hypertension: Status: Acute (4) Type 1 diabetes: Status: Acute (5) End stage renal disease on dialysis: Status: Acute (6) Pulmonary edema: Status: Acute (7) Hypoxia: Status: Acute Reason for Visit Reason for Visit: chest pain Hospital Course Hospital Course Hunter San is a 34 year old male with history of type 1 diabetes, end-stage renal disease, recently started dialysis last Saturday, got discharged from [facility] yesterday, presented with chief complaint of worsening of shortness of breath and dizziness, found to have acute pulmonary edema with acute hypoxic respiratory insufficiency, anasarca, elevated troponin, and acute complicated urinary tract infection. He was treated with supplemental oxygen, dialysis session, IV ceftriaxone, and supportive care. Troponins were trended and curve is flat consistent with troponin leak from pulmonary edema. Echo obtained with results pending at time of discharge, patient will follow-up results as outpatient. His urine culture is pending at the time of discharge, he was treated with ceftriaxone while admitted and discharged on cefdinir to complete treatment. Symptomatology improved. Patient discharged home in stable condition. He is to initiate outpatient dialysis as previously scheduled this coming Saturday. 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 Patient complained of symptoms concerning for possible neuropathy for which she is very high risk considering his history of type 1 diabetes mellitus. He will be discharged on trial of gabapentin. Physical Exam Narrative: General: Patient is awake. No acute distress. Conversational. Head: Normocephalic. Atraumatic. EOM intact. Neck: No JVD. Cardiovascular: RRR. No gallops. No murmurs. No peripheral edema. Lungs: Adequate air movement. No respiratory distress. No crackles. On room air. Skin: No jaundice. No rashes. Abdomen: Normal bowel sounds, abdomen soft and nontender. Extremities: No cyanosis or clubbing. Musculoskeletal: No swollen or erythematous joints. Neurological: Moves all 4 extremities. No myoclonus. Discharge Data Studies Completed and Pending Completed Studies During Hospitalization Category Date Time Status XR chest 1V portable [id number] Stat Exams 12/12/24 18:30 Completed Pending at discharge Category Date Time Status Urine Culture Stat Lab 12/12/24 18:40 Received CV. echo complete* [id number] Routine Ultrasound 12/13/24 21:47 Taken Radiology Impressions Chest X-Ray 12/12/24 18:30 IMPRESSION: 1. Increasing central pulmonary vascular congestion with bibasilar opacities which could reflect mild pulmonary edema. Infiltrate not excluded in the correct clinical setting. 2. Possible small bilateral pleural effusions. Laboratory Results WBC 8.69 10^3/uL (3.29-11.43) 12/13/24 00:56 RBC 3.00 10^6/uL (3.85-5.65) L 12/13/24 00:56 Hgb 8.60 g/dL (11.27-16.99) L 12/13/24 00:56 Hct 26.8 % (37-53) L 12/13/24 00:56 MCV 89.3 fl (82-101) 12/13/24 00:56 MCH 28.7 pg (27-33) 12/13/24 00:56 MCHC 32.1 g/dL (30-55) 12/13/24 00:56 RDW 14.3 % (12.1-15.1) 12/13/24 00:56 Plt Count 361 10^3/cmm (157-399) 12/13/24 00:56 MPV 11.3 fL (7.4-10.4) H 12/13/24 00:56 Neut % (Auto) 69.7 % 12/13/24 00:56 Lymph % (Auto) 19.2 % 12/13/24 00:56 Swain % (Auto) 8.5 % 12/13/24 00:56 Eos % (Auto) 1.6 % 12/13/24 00:56 Baso % (Auto) 0.8 % 12/13/24 00:56 Neut # (Auto) 6.05 10^3/uL (1.8-7.7) 12/13/24 00:56 Lymph # (Auto) 1.7 10^3/uL (0.8-4.8) 12/13/24 00:56 Swain # (Auto) 0.7 10^3/uL (0.2-0.9) 12/13/24 00:56 Eos # (Auto) 0.1 10^3/uL (0.0-0.8) 12/13/24 00:56 Baso # (Auto) 0.1 10^3/uL (0.0-0.1) 12/13/24 00:56 Nucleated RBC % (auto) 0 % 12/13/24 00:56 Nucleated RBCs # 0.0 /100WBC 12/13/24 00:56 PT 14.50 SECONDS (12.1-14.9) 12/12/24 18:53 INR 1.05 (0.8-1.2) 12/12/24 18:53 APTT 33.7 SECONDS (23.9-36.7) 12/12/24 18:53 Sodium 134 mmol/L (136-145) L 12/13/24 00:56 Potassium 4.5 mmol/L (3.5-5.1) 12/13/24 00:56 Chloride 99 mmol/L (98-107) 12/13/24 00:56 Carbon Dioxide 25 mmol/L (22-29) 12/13/24 00:56 Anion Gap 14.5 (5-19) 12/13/24 00:56 BUN 27 mg/dL (6-20) H 12/13/24 00:56 Creatinine 3.9 mg/dL (0.7-1.2) H 12/13/24 00:56 GFR Calculation 17.8 mL/min (90-130) L 12/13/24 00:56 Glucose 285 mg/dL (65-115) H 12/13/24 00:56 POC Glucose 74 mg/dL (70-110) 12/13/24 16:14 Calculated Osmolality 293 mOsm/kg (285-295) 12/13/24 00:56 Calcium 8.0 mg/dL (8.5-10.5) L 12/13/24 00:56 Phosphorus 4.1 mg/dL (2.5-4.5) 12/13/24 00:56 Magnesium 1.8 mg/dL (1.7-2.3) 12/13/24 00:56 Total Bilirubin 0.4 mg/dL (0.15-1.2) 12/12/24 18:53 AST 81 U/L (0-40) H 12/12/24 18:53 ALT 319 U/L (0-41) H 12/12/24 18:53 Alkaline Phosphatase 309 U/L (40-130) H 12/12/24 18:53 Troponin T Baseline 208 ng/L (0-15) H* 12/12/24 18:53 Troponin T 120 Minute 204.0 ng/L (0-15) H 12/12/24 20:29 Delta Troponin T -4.0 ABS# (0-10) L 12/12/24 20:29 Troponin T Hi Sens 6Hr 200.0 ng/L (0-15) H 12/13/24 00:56 Troponin T Hi Sens 6Hr Delta -8.0 ng/L (0-12) L 12/13/24 00:56 C-Reactive Protein 41.4 mg/L (0.0-4.9) H 12/13/24 00:56 NT-Pro-B Natriuret Pep 36373 pg/mL (0-125) H 12/12/24 18:53 Total Protein 5.6 g/dL (6.6-8.7) L 12/12/24 18:53 Albumin 2.3 g/dL (3.5-5.2) L 12/12/24 18:53 Globulin 3.3 g/dL (1.3-4.6) 12/12/24 18:53 Urine Color Yellow (Yellow) 12/12/24 18:40 Urine Appearance Cloudy (CLEAR) A 12/12/24 18:40 Urine pH 8.0 (5-7) A 12/12/24 18:40 Ur Specific [place] 1.018 (1.005-1.030) 12/12/24 18:40 Urine Protein 4+ (Negative) A 12/12/24 18:40 Urine Glucose (UA) 3+ (Normal) H 12/12/24 18:40 Urine Ketones Negative (Negative) 12/12/24 18:40 Urine Blood 2+ (Negative) A 12/12/24 18:40 Urine Nitrate Negative (Negative) 12/12/24 18:40 Urine Bilirubin Negative (Negative) 12/12/24 18:40 Urine Urobilinogen 0.2 mg/dL (Negative) 12/12/24 18:40 Ur Leukocyte Esterase 1+ (Negative) A 12/12/24 18:40 Urine RBC 0-4 /hpf (0-2) H 12/12/24 18:40 Urine WBC Too numerous to cnt /hpf (0-5) H 12/12/24 18:40 Ur Squamous Epith Cells 0-4 /hpf (0-5) H 12/12/24 18:40 Amorphous Sediment Not Reportable 12/12/24 18:40 Urine Bacteria Trace /hpf (NONE) 12/12/24 18:40 Hep Bs Antigen Non-reactive (Nonreactive) 12/12/24 18:53 Hep Bs Antibody 33.5 (11.5-1000) 12/12/24 18:53 Hepatitis C Antibody Non-reactive (Nonreactive) 12/12/24 12:17 Influenza A (PCR) Negative (Negative) 12/12/24 18:40 Influenza Type B (PCR) Negative (Negative) 12/12/24 18:40 RSV (PCR) Negative (Negative) 12/12/24 18:40 SARS-CoV-2 (PCR) Negative (Negative) 12/12/24 18:40 Vitals Last Vital Signs Temp 98.1 F 12/13/24 14:39 Pulse 93 12/13/24 14:39 Resp 16 12/13/24 14:39 BP 175/113 12/13/24 14:39 Pulse Ox 92 12/13/24 11:09 O2 Del Method Room Air 12/13/24 11:09 O2 Flow Rate 2 12/13/24 02:43 Discharge Plan Discharge Patient Disposition: Home Condition: Stable Prescriptions: New gabapentin 100 mg Capsule 100 mg PO TID 30 Days Qty: 90 0RF cefdinir 300 mg capsule 300 mg PO .after dialysis 9 Days Qty: 3 0RF Rx Instructions: Take 300 mg orally after dialysis x3 doses total. Continued (DME) blood-glucose meter [True Metrix Air Glucose Meter] Kit See Rx Instructions .Route Qty: 1 0RF Rx Instructions: As directed (DME) True Metrix Glucose Test Strip Strip See Rx Instructions .Route Qty: 100 0RF Rx Instructions: As directed (DME) lancets 31 gauge misc See Rx Instructions .Route Qty: 100 0RF Rx Instructions: As directed (DME) Dexcom G7 Sensor Device See Rx Instructions .ROUTE .MEDSUPPLY Qty: 1 Rx Instructions: As directed (DME) Intraoperative Neuromonitoring See Rx Instructions .Route .MEDSUPPLY Qty: 1 0RF Rx Instructions: As directed (DME) pen needle, diabetic [BD Ultra-Fine Micro Pen Needle] 32 gauge x 1/4 needle See Rx Instructions .ROUTE .MEDSUPPLY Qty: 100 3RF Rx Instructions: As directed (DME) insulin syringe-needle U-100 [BD Insulin Syringe Ultra-Fine] 1 mL 31 gauge x 5/16 syringe See Rx Instructions .ROUTE .COMPLEX Qty: 100 1RF Dose Instruction: DIRECTED Rx Instructions: DIRECTED amlodipine 10 mg tablet 10 mg PO QAM insulin lispro [Humalog KwikPen Insulin] 100 unit/mL Insulin Pen 10 unit SUBCUT TID Rx Instructions: inject 10 units tid before meals plus medium sliding scale carvedilol 25 mg Tablet 25 mg PO Q12H Rx Instructions: must administer with a meal/food clonidine HCl 0.1 mg Tablet See Rx Instructions .ROUTE .COMPLEX Rx Instructions: take 2tablets by mouth three times a day if top number is 200 or higher and or bottom number is over 100. lidocaine 4 % Adhesive Patch,Medicated 1 patch TOPICAL DAILY PRN (Reason: Pain) tizanidine 4 mg tablet 4 mg PO Q8H PRN (Reason: Pain) amitriptyline 50 mg tablet 50 mg PO BEDTIME epinephrine 0.3 mg/0.3 mL auto-injector See Rx Instructions .ROUTE .COMPLEX Rx Instructions: INJECT 0.3 INTRAMUSCULARLY ONCE DAILY NEEDED FOR ANAPHYLAXIS bupropion HCl 150 mg tablet extended release 24 hr 150 mg PO DAILY insulin glargine [Lantus Solostar U-100 Insulin] 100 unit/mL (3 mL) insulin pen 100 unit SUBCUT BID Discharge Orders: Discharge Order (Routine); Ordered 12/13/24 Ordered By: Jose Rodriguez Referrals: Jason Ariza FNP [Primary Care Provider] - 4-7 days Discharge Diet: Usual diet and Diabetic Discharge Activity: Increase activity as tolerated Patient Instructions: Opioid Safety Activity Restrictions/Additional Instructions: 1. Take medications as prescribed. 2. Keep currently scheduled initiation of dialysis for this coming Saturday. 3. Follow-up with dialysis provider/operator electronic warfare. 4. Follow-up with PCP within 1 week to assess symptoms and follow-up echocardiogram results. Discharge Attestations Time Spent in Discharge Care*: greater than 30 min Quality Metrics Clinical Quality Measures [ No reported AMI, CVA or VTE this stay] Coding Level of Care Code Acute Code for Chg Fwd Diagnoses Schizophrenia F20.9 Opiate dependence F11.20 Uncontrolled hypertension I10 Type 1 diabetes E10.9 End stage renal disease on dialysis N18.6; Z99.2 Pulmonary edema J81.1 Hypoxia R09.02
[2024-12-13] MEDS: cefdinir 300 MG CAPSULE PO (17:31)
--- NOTE | 2024-12-13 18:49 | PC.HD ---
SBP during dialysis kept increasing; by last hour SPB was >200. Primary RN notified. After treatment, BP was 209/126.
[2024-12-13] MEDS: hyDRALAzine 20 mg/mL INJ 1 mL IVP (18:54)
--- NOTE | 2024-12-13 21:47 | USCV_ITS ---
Jaswinder Hunter Age: 34 Gender: M : 1990 Exam Date: 12/13/2024 12:52 Ordering Phys: Juan Escobar MD Technologist: Jhonny Azar Exam Location: [facility] Indication: UA BP: 159 / 95 HR: 91 Rhythm: Sinus Technical Quality: Adequate MEASUREMENTS (Male / Female) Normal Values 2D ECHO LV Diastolic Diameter PLAX 4.7 cm 4.2 - 5.9 / 3.9 - 5.3 cm IVS Diastolic Thickness 2.0 cm 0.6 - 1.0 / 0.6 - 0.9 cm IVS Systolic Thickness 1.8 cm LVPW Diastolic Thickness 1.9 cm 0.6 - 1.0 / 0.6 - 0.9 cm LVPW Systolic Thickness 2.5 cm LVOT Diameter 2.0 cm LV Ejection Fraction 2D Teich 27.7 % LV Ejection Fraction MOD 4C 46.5 % LV Ejection Fraction MOD 2C 43.3 % LV Ejection Fraction 2C AL 41.3 % LA Diameter 5.2 cm RA Systolic Volume 4C AL 39.8 ml RA Systolic Volume 4C MOD 36.1 ml LA Sys Volume AL 69.8 cm cubed LA Sys Volume Index AL 27.4 cm cubed/m squared Aorta at Sinotubular Diameter 2.4 cm IVC Diameter 1.9 cm M-MODE LA Ao Ratio MM 1.6 AV Cusp Separation MM 1.9 cm DOPPLER AV Peak Velocity 152.0 cm/s LVOT Peak Velocity 122.0 cm/s AV Area Cont Eq vti 2.9 cm squared AV Area Cont Eq pk 2.5 cm squared MV Peak Velocity 120.0 cm/s MV Area PHT 6.7 cm squared Mitral E to A Ratio 2.4 TV Peak Velocity 334.0 cm/s TR Peak Velocity 382.0 cm/s TR Peak Gradient 58.4 mmHg TR Mean Velocity 272.0 cm/s TR Mean Gradient 34.1 mmHg TR Velocity Time Integral 103.5 cm PV Peak Velocity 95.3 cm/s RV Ejection Time 0.3 s FINDINGS Left Ventricle Moderate concentric left ventricle hypertrophy. Mild global hypokinesis LVEF mildly reduced 45 to 50%. Right Ventricle Normal right ventricular size and systolic function. Right Atrium Mildly dilated right atrium. Left Atrium Dilated left atrium. Mitral Valve Structurally normal mitral valve. Mild mitral valve regurgitation. Aortic Valve Structurally normal trileaflet aortic valve. No aortic valve stenosis. Tricuspid Valve Structurally normal tricuspid valve. Mild tricuspid regurgitation. TVPG 35 mmHg. Pulmonic Valve Structurally normal pulmonic valve. [id number] pulmonary valve regurgitation. Pericardium There is mild to moderate circumferential pericardial effusion. Maximum diamteter 1.4 cm. No echo signs of pericardial tamponade Aorta Normal size aortic root and proximal ascending aorta. IVC Normal size IVC with blunt respiratory variation. CONCLUSIONS Moderate concentric left ventricle hypertrophy. Mildly reduced LV systolic function with mild global hypokinesis. LVEF 45 to 50%. Dilated left atrium with mild regurgitation. Normal RV and RV systolic function. Mildly elevated RV and pulmonary pressures, 45 mmHg. Mild to moderate pericardial effusion, no echo signs of pericardial tamponade. Les Freed MD (Electronically Signed) Final Date: 13 December 2024 16:50 S
== END 2024-12-13 19:28 | disposition home or self-care (01) ==
LOC: ER 22:47 → MEDSURG 23:27
PROVIDERS: Internal Medicine Nephrology; Admitting Provider Internal Medicine; Emergency Provider Emergency Medicine; PCP Nurse Practitioner Family; Visit Provider Internal Medicine
DX: I12.0 Hypertensive chronic kidney disease with stage 5 chronic kidney disease or end stage renal disease (principal); F20.9 Schizophrenia, unspecified; F11.20 Opioid dependence, uncomplicated; Z99.2 Dependence on renal dialysis; J81.1 Chronic pulmonary edema; R09.02 Hypoxemia; E10.22 Type 1 diabetes mellitus with diabetic chronic kidney disease; Z79.4 Long term (current) use of insulin; Z79.899 Other long term (current) drug therapy; Z88.8 Allergy status to other drugs, medicaments and biological substances; F17.200 Nicotine dependence, unspecified, uncomplicated; Z11.52 Encounter for screening for COVID-19; D63.1 Anemia in chronic kidney disease
CPT/HCPCS: 36415; 36416; 71045; 80048; 80053; 81001; 82962; 83735; 83880; 84100; 84484; 85025; 85610; 85730; 86140; 86706; 86803; 87086; 87340; 87637; 90935; 93005; 93306; 94664; 96372; 96374; 96375; 99285; G0378; J0360; J0696; J1644; J1815; J2270; J2405; J3490

== ENCOUNTER 2024-12-16 16:59 | Emergency (ER) | payer MEDICAID, SELFPAY ==
[2024-12-16] VITALS (7 sets, daily range): BP systolic 149–200; BP diastolic 93–128; PULSE 96–117; RESP 17–25; TEMP 36.8; O2SAT 97–100; BMI 34.5
--- NOTE | 2024-12-16 17:07 | XRR_ITS ---
PROCEDURE INFORMATION: Exam: XR Chest Exam date and time: 12/16/2024 6:00 PM Age: 34 years old Clinical indication: Shortness of breath; Additional info: SOB TECHNIQUE: Imaging protocol: Radiologic exam of the chest. Views: 1 view. COMPARISON: CR (CHEST, ) 12/12/2024 6:44 PM FINDINGS: Tubes, catheters and devices: Dual lumen right-sided dialysis catheter is present. Lungs: Retrocardiac opacities. Pleural spaces: Small left-sided pleural effusion. No sizable pneumothorax. Heart/Mediastinum: Cardiomegaly. Bones/joints: Unremarkable. XR/XR chest 1V portable [id number] IMPRESSION: As above.
--- NOTE | 2024-12-16 17:07 | ECG_ITS ---
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 [email or web address]
--- NOTE | 2024-12-16 17:39 | W.ED.SOB ---
HPI - SOB/Dyspnea General: Chief Complaint: Shortness of Breath/Dyspnea Stated Complaint: SOB Time Seen by Provider: 12/16/24 17:35 History of Present Illness: HPI Narrative: 34-year-old man with a history of hypertension and diabetes with end-stage renal disease recently started on dialysis who presents emergency room with shortness of breath. He says he gone to clinic and they had done an x-ray and felt like there was still fluid on his lungs and around his heart so they sent him to the emergency room. He is hypertensive and tachycardic on presentation. O2 sats are 100% on room air however. He is afebrile. No new cough. Related Data Home Medications ?Medication ?Instructions ?Recorded ?Confirmed amlodipine 10 mg tablet 10 mg PO QAM 09/16/23 12/13/24 blood-glucose sensor (Dexcom G7 #1 ea 10/21/23 12/13/24 Sensor device) insulin lispro 100 unit/mL 10 unit SUBCUT TID 07/24/24 12/13/24 subcutaneous pen (Humalog KwikPen (U-100) Insulin) amitriptyline 50 mg tablet 50 mg PO BEDTIME 11/06/24 12/13/24 bupropion HCl 150 mg 24 hr tablet, 150 mg PO DAILY 11/06/24 12/13/24 extended release carvedilol 25 mg tablet 25 mg PO Q12H 11/06/24 12/13/24 clonidine HCl 0.1 mg tablet See Rx Instructions .Route .COMPLEX 11/06/24 12/13/24 epinephrine 0.3 mg/0.3 mL See Rx Instructions .Route .COMPLEX 11/06/24 12/13/24 injection, auto-injector insulin glargine 100 unit/mL (3 100 unit SUBCUT BID 11/06/24 12/13/24 mL) subcutaneous pen (Lantus Solostar U-100 Insulin) lidocaine 4 % topical patch 1 patch topical DAILY PRN Pain 11/06/24 12/13/24 tizanidine 4 mg tablet 4 mg PO Q8H PRN Pain 11/06/24 12/13/24 Previous Rx's ?Medication ?Instructions ?Recorded Intraoperative Neuromonitoring #1 ea 08/22/22 insulin syringe-needle U-100 1 mL #100 ea 06/27/23 31 gauge x 5/16 (BD Insulin Syringe Ultra-Fine) pen needle, diabetic 32 gauge x #100 ea 06/27/23 1/4 (BD Ultra-Fine Micro Pen Needle) blood sugar diagnostic (True #100 ea 10/04/23 Metrix Glucose Test Strip) blood-glucose meter (True Metrix #1 ea 10/04/23 Air Glucose Meter kit) lancets 31 gauge #100 ea 10/04/23 cefdinir 300 mg capsule 300 mg PO .after dialysis 9 days 12/13/24 #3 caps gabapentin 100 mg capsule 100 mg PO TID 30 days #90 caps 12/13/24 Allergies Allergy/AdvReac Type Severity Reaction Status Date / Time bee venom protein (honey bee) Allergy Unknown Verified 11/06/24 09:06 lisinopril Allergy Unknown Verified 11/06/24 09:06 Review of Systems Narrative: Constitutional symptoms: Negative except as documented in HPI. Skin symptoms: Negative except as documented in HPI. Eye symptoms: Negative except as documented in HPI. ENMT symptoms: Negative except as documented in HPI. Respiratory symptoms: Negative except as documented in HPI. Cardiovascular symptoms: Negative except as documented in HPI. Gastrointestinal symptoms: Negative except as documented in HPI. Genitourinary symptoms: Negative except as documented in HPI. Musculoskeletal symptoms: Negative except as documented in HPI. Neurologic symptoms: Negative except as documented in HPI. Psychiatric symptoms: Negative except as documented in HPI. Endocrine symptoms: Negative except as documented in HPI. PFSH ED PFSH: Medical History Other stimulant abuse, uncomplicated Waking at night short of breath Snoring Hypersomnia Insomnia Noncompliance w/medication treatment due to intermit use of medication Schizophrenia Methamphetamine abuse Uncontrolled hypertension Type 1 diabetes Family History Other CAD (coronary artery disease) Hypertension Stroke Social History Smoking and tobacco/nicotine status: current every day tobacco/nicotine user Alcohol intake: former Substance/Drug Use: former Date of last use: Amphetamines more than 62 days ago Caregiver/support person: Yes Lives independently: Yes Household members: other Current occupation: [employer] Physical Exam Narrative: EXAM NARRATIVE: General: Alert, no acute distress. Skin: Warm, dry. Head: Normocephalic, atraumatic. Neck: Supple, trachea midline. Eye: Extraocular movements are intact. Ears, nose, mouth and throat: mucosa moist. Cardiovascular: Regular, tachycardic, normal peripheral perfusion. Respiratory: Lungs are clear to auscultation, respirations are non-labored, breath sounds are equal, Symmetrical chest wall expansion. Gastrointestinal: Soft, Nontender, Non distended Musculoskeletal: Normal ROM, no deformity. Neurological: Alert and oriented, No focal neurological deficit observed. Psychiatric: Cooperative, appropriate mood & affect. Course Vital Signs: Vital signs: Vital Signs Temperature 98.2 F 12/16/24 17:21 Pulse Rate 116 H 12/16/24 19:24 Respiratory Rate 25 H 12/16/24 19:24 Blood Pressure 189/100 12/16/24 19:24 Pulse Oximetry 100 12/16/24 19:24 Oxygen Delivery Me thod Room Air 12/16/24 17:58 MDM - SOB/Dyspnea Medical Decision Making Differential diagnosis for patient with shortness of breath includes but is not limited to and based on the above HPI, review of systems and physical exam: Pneumonia. Bronchitis. Asthma or COPD with acute exacerbation. Acute coronary syndrome / [place]. Pulmonary embolism. Anxiety. Congestive heart failure. Viral infections including influenza and Covid-19. Atrial fibrillation. Anxiety. Pleural effusion. Pneumothorax. Orders placed to evaluate differential diagnosis based on the above differential, HPI and physical exam EKG: Time 1736. Rate 107. Sinus tachycardia, No ST-T changes, no ectopy, normal [place] & QRS intervals, This was reviewed and interpreted by myself the ER physician at 1740 Chest x-ray: Small pleural effusion but no evidence of fluid overload or pulmonary edema. This was reviewed and interpreted by myself the emergency room physician. I also reviewed the radiology report. Lab Review: Laboratory results were reviewed and interpreted by myself the emergency room physician. No leukocytosis. Stable hemoglobin. BUN and creatinine are 25 and 3.2 with a potassium of 5.3 which would be expected in this dialysis patient. Troponins are elevated but unchanged which would be expected to again in a dialysis patient. No chest pain. No EKG changes. I reviewed the patient's medical record. Reexamination: Patient remained stable. No increased work of breathing. No altered mental status. No focal motor deficits. Assessment and plan: Accelerated hypertension End-stage renal disease on dialysis Shortness of breath ? IV hydralazine, IV labetalol and oral Tylenol. - Discharged home - Discussed plan with patient. Answered any questions. - Evaluation and treatment of this problem were appropriate in the emergency setting. Lab Data 12/16/24 17:37 12/16/24 17:37 Labs/Radiology: Radiology Impressions Chest X-Ray 12/16/24 17:07 IMPRESSION: As above. Laboratory Results WBC 10.11 10^3/uL (3.29-11.43) 12/16/24 17:37 RBC 3.62 10^6/uL (3.85-5.65) L 12/16/24 17:37 Hgb 10.30 g/dL (11.27-16.99) L 12/16/24 17:37 Hct 33.1 % (37-53) L 12/16/24 17:37 MCV 91.4 fl (82-101) 12/16/24 17:37 MCH 28.5 pg (27-33) 12/16/24 17:37 MCHC 31.1 g/dL (30-55) 12/16/24 17:37 RDW 14.4 % (12.1-15.1) 12/16/24 17:37 Plt Count 463 10^3/cmm (157-399) H 12/16/24 17:37 MPV 10.0 fL (7.4-10.4) 12/16/24 17:37 Neut % (Auto) 67.5 % 12/16/24 17:37 Lymph % (Auto) 20.4 % 12/16/24 17:37 Glynn % (Auto) 9.1 % 12/16/24 17:37 Eos % (Auto) 1.7 % 12/16/24 17:37 Baso % (Auto) 1.0 % 12/16/24 17:37 Neut # (Auto) 6.83 10^3/uL (1.8-7.7) 12/16/24 17:37 Lymph # (Auto) 2.1 10^3/uL (0.8-4.8) 12/16/24 17:37 Glynn # (Auto) 0.9 10^3/uL (0.2-0.9) 12/16/24 17:37 Eos # (Auto) 0.2 10^3/uL (0.0-0.8) 12/16/24 17:37 Baso # (Auto) 0.1 10^3/uL (0.0-0.1) 12/16/24 17:37 Nucleated RBC % (auto) 0 % 12/16/24 17:37 Nucleated RBCs # 0.0 /100WBC 12/16/24 17:37 Sodium 137 mmol/L (136-145) 12/16/24 17:37 Potassium 5.3 mmol/L (3.5-5.1) H 12/16/24 17:37 Chloride 100 mmol/L (98-107) 12/16/24 17:37 Carbon Dioxide 27 mmol/L (22-29) 12/16/24 17:37 Anion Gap 15.3 (5-19) 12/16/24 17:37 BUN 25 mg/dL (6-20) H 12/16/24 17:37 Creatinine 3.2 mg/dL (0.7-1.2) H 12/16/24 17:37 GFR Calculation 22.3 mL/min (90-130) L 12/16/24 17:37 Glucose 268 mg/dL (65-115) H 12/16/24 17:37 Calculated Osmolality 298 mOsm/kg (285-295) H 12/16/24 17:37 Calcium 8.1 mg/dL (8.5-10.5) L 12/16/24 17:37 Total Bilirubin 0.3 mg/dL (0.15-1.2) 12/16/24 17:37 AST 23 U/L (0-40) 12/16/24 17:37 ALT 83 U/L (0-41) H 12/16/24 17:37 Alkaline Phosphatase 218 U/L (40-130) H 12/16/24 17:37 Troponin T Baseline 168 ng/L (0-15) H* 12/16/24 17:37 Troponin T 120 Minute 161.2 ng/L (0-15) H 12/16/24 19:11 Delta Troponin T -6.8 ABS# (0-10) L 12/16/24 19:11 NT-Pro-B Natriuret Pep 15706 pg/mL (0-125) H 12/16/24 17:37 Total Protein 5.7 g/dL (6.6-8.7) L 12/16/24 17:37 Albumin 2.7 g/dL (3.5-5.2) L 12/16/24 17:37 Globulin 3.0 g/dL (1.3-4.6) 12/16/24 17:37 All radiology interpretation(s) finalized by discharge Discharge Plan Discharge Patient Disposition: Home Clinical Impression: Accelerated hypertension, End stage renal disease on dialysis, Shortness of breath Condition: Stable Prescriptions: No Action (DME) blood-glucose meter [True Metrix Air Glucose Meter] Kit See Rx Instructions .Route Qty: 1 0RF Rx Instructions: As directed (DME) True Metrix Glucose Test Strip Strip See Rx Instructions .Route Qty: 100 0RF Rx Instructions: As directed (DME) lancets 31 gauge misc See Rx Instructions .Route Qty: 100 0RF Rx Instructions: As directed (DME) Dexcom G7 Sensor Device See Rx Instructions .ROUTE .MEDSUPPLY Qty: 1 Rx Instructions: As directed (DME) Intraoperative Neuromonitoring See Rx Instructions .Route .MEDSUPPLY Qty: 1 0RF Rx Instructions: As directed (DME) pen needle, diabetic [BD Ultra-Fine Micro Pen Needle] 32 gauge x 1/4 needle See Rx Instructions .ROUTE .MEDSUPPLY Qty: 100 3RF Rx Instructions: As directed (DME) insulin syringe-needle U-100 [BD Insulin Syringe Ultra-Fine] 1 mL 31 gauge x 5/16 syringe See Rx Instructions .ROUTE .COMPLEX Qty: 100 1RF Dose Instruction: DIRECTED Rx Instructions: DIRECTED amlodipine 10 mg tablet 10 mg PO QAM insulin lispro [Humalog KwikPen Insulin] 100 unit/mL Insulin Pen 10 unit SUBCUT TID Rx Instructions: inject 10 units tid before meals plus medium sliding scale carvedilol 25 mg Tablet 25 mg PO Q12H Rx Instructions: must administer with a meal/food clonidine HCl 0.1 mg Tablet See Rx Instructions .ROUTE .COMPLEX Rx Instructions: take 2tablets by mouth three times a day if top number is 200 or higher and or bottom number is over 100. lidocaine 4 % Adhesive Patch,Medicated 1 patch TOPICAL DAILY PRN (Reason: Pain) tizanidine 4 mg tablet 4 mg PO Q8H PRN (Reason: Pain) amitriptyline 50 mg tablet 50 mg PO BEDTIME epinephrine 0.3 mg/0.3 mL auto-injector See Rx Instructions .ROUTE .COMPLEX Rx Instructions: INJECT 0.3 INTRAMUSCULARLY ONCE DAILY NEEDED FOR ANAPHYLAXIS bupropion HCl 150 mg tablet extended release 24 hr 150 mg PO DAILY insulin glargine [Lantus Solostar U-100 Insulin] 100 unit/mL (3 mL) insulin pen 100 unit SUBCUT BID gabapentin 100 mg Capsule 100 mg PO TID 30 Days Qty: 90 0RF cefdinir 300 mg capsule 300 mg PO .after dialysis 9 Days Qty: 3 0RF Rx Instructions: Take 300 mg orally after dialysis x3 doses total. Discharge Orders: Discharge ED (Routine); Ordered 12/16/24 Ordered By: Courtney Pichardo Referrals: Jason Ariza FNP [Primary Care Provider] - Discharge Diet: Usual diet Discharge Activity: Increase activity as tolerated Patient Instructions: Opioid Safety, Pain Management Activity Restrictions/Additional Instructions: Thank you for choosing [facility] for your healthcare needs today. Please realize this is an emergency room and that we are providing you with a medical screening exam and this may not be complete and all inclusive of all the testing and or work up that you may need to determine your ailment or severity of your illness. You have been screened and evaluated and felt safe for discharge. Health conditions do change or evolve sometimes and as such it is important that you follow up with your Primary Doctor to be re checked, 3-5 days is a general good time frame for follow up. You are always welcome to return to the ED for re assessment if your symptoms are worsening or you have new concerns Print Language: Telugu Coding Level of Care Code ED Strap Folding Machine Operator for Bessie Gaxiola
[2024-12-16] MEDS: hyDRALAzine 20 mg/mL INJ 1 mL IVP (17:58)
[2024-12-16 18:07] LABS: Basophils # 0.1 10^3/uL (0.0-0.1); Eosinophils # 0.2 10^3/uL (0.0-0.8); Eosinophils % 1.7 %; Hematocrit 33.1 % (37-53); Lymphocytes # 2.1 10^3/uL (0.8-4.8); Lymphocytes % 20.4 %; Mean Corpuscular HGB Conc 31.1 g/dL (30-55); Mean Corpuscular Hemoglobin 28.5 pg (27-33); Mean Corpuscular Volume 91.4 fl (82-101); Monocytes # 0.9 10^3/uL (0.2-0.9); Monocytes % 9.1 %; Neutrophils # 6.83 10^3/uL (1.8-7.7); Neutrophils % 67.5 %; Nucleated Red Blood Cells % 0 %; Platelet Count 463 10^3/cmm (157-399); Red Blood Count 3.62 10^6/uL (3.85-5.65); Red Cell Distribution Width 14.4 % (12.1-15.1); White Blood Count 10.11 10^3/uL (3.29-11.43)
[2024-12-16 18:34] LABS: Troponin(5th) Baseline 168 ng/L (0-15)
[2024-12-16 18:41] LABS: Alanine Aminotransferase 83 U/L (0-41); Albumin Level 2.7 g/dL (3.5-5.2); Alkaline Phosphatase 218 U/L (40-130); Anion Gap 15.3 (5-19); Aspartate Amino Transferase 23 U/L (0-40); Blood Urea Nitrogen 25 mg/dL (6-20); Calcium 8.1 mg/dL (8.5-10.5); Carbon Dioxide 27 mmol/L (22-29); Chloride 100 mmol/L (98-107); Creatinine Clr Calc Pharmacy 42.7066; Glomerular Filtration Rate 22.3 mL/min (90-130); Glucose 268 mg/dL (65-115); Osmolality Calculated 298 mOsm/kg (285-295); Potassium 5.3 mmol/L (3.5-5.1); Sodium 137 mmol/L (136-145); Total Bilirubin 0.3 mg/dL (0.15-1.2); Total Protein 5.7 g/dL (6.6-8.7)
[2024-12-16 19:02] LABS: NT Pro B Type Natriuretic Pept 32629 pg/mL (0-125)
--- NOTE | 2024-12-16 19:38 | ECG_ITS ---
[facility] Test Date: 2024-12-16 Pat Name: Hunter San Department: Room: Gender: Male Supervisor Nuclear Medicine: : 1990 Requested By: Courtney Beckman Order Number: [id number] Bashir MD: Manish Crystal M.D. Measurements Intervals Reading Rate: 117 P: 63 MT: 156 QRS: 48 QRSD: 89 T: 91 QT: 333 QTc: 465 Interpretive Statements SINUS TACHYCARDIA SEPTAL MYOCARDIAL INFARCTION , PROBABLY OLD [40+ ms Q WAVE IN V1/V2] Compared to ECG 12/16/2024 17:36:13 Myocardial infarct finding now present Electronically Signed On 12-19-2024 19:41:03 DATABASE DBA by Manish Crystal M.D. [email or web address]
[2024-12-16 19:43] LABS: Troponin 5 2HR 161.2 ng/L (0-15); Troponin 5 2HR Delta -6.8 ABS# (0-10)
[2024-12-16] MEDS: labetalol 5 mg/mL SDV 20mL 20 MG IVP (19:49)
[2024-12-16] MEDS: acetaminophen 500 mg Tablet 1000 MG PO (19:50)
== END 2024-12-16 20:15 | disposition home or self-care (01) ==
PROVIDERS: Emergency Medicine; Emergency Provider Emergency Medicine; PCP Nurse Practitioner Family
DX: R06.02 Shortness of breath (principal); E10.22 Type 1 diabetes mellitus with diabetic chronic kidney disease; I12.0 Hypertensive chronic kidney disease with stage 5 chronic kidney disease or end stage renal disease; N18.6 End stage renal disease; Z99.2 Dependence on renal dialysis; Z72.0 Tobacco use
CPT/HCPCS: 36415; 71045; 80053; 83880; 84484; 85025; 93005; 96374; 96375; 99285; J0360; J3490

== ENCOUNTER → 2025-02-11 10:13 | Outpatient (BNVA) | payer MEDICARE, MEDICAID, SELFPAY | PROVIDERS: PCP Nurse Practitioner Family; Visit Provider Podiatrist Foot & Ankle Surgery | DX: E10.42 Type 1 diabetes mellitus with diabetic polyneuropathy (principal); G62.9 Polyneuropathy, unspecified; E10.8 Type 1 diabetes mellitus with unspecified complications; L84 Corns and callosities; Z79.4 Long term (current) use of insulin | CPT/HCPCS: 99203 ==

== ENCOUNTER 2025-04-11 23:47 | Inpatient (IN) | payer MEDICARE, MEDICAID, SELFPAY ==
--- OUTSIDE RECORDS SUMMARY | 2025-04-11 16:33 | XMS_ITS | Encounter Summary ---
Author Organization [facility] Address [address] [place] [address] Care Team Providers Care Stock Preparation Operator Name Role Phone Duke Alarcon MD Primary Care Provider [phone] Reason for Visit * Reason Comments LOW BACK PAIN Spasms Low Back Encounter Details Date Type Department Care Team (Late st Contact Info) Description 04/11/2025 4:33 PM CDT - 04/11/2025 11:03 PM CDT Emergency [facility] Emergency Medicine [address] [address] Kelsea Dailey MD [address] [address] Maximilian Beckham MD [address] [facility] [address] [place] [address] Hypertensive emergency (Primary Dx); Other hypervolemia; Need for acute hemodialysis Discharge Disposition: Acute Care Hospital Social History Tobacco Use Types Packs/Day Years Used Date Smoking Tobacco: Every Day Cigarettes Passive Smoke Exposure: Current Smokeless Tobacco: Never Alcohol Use Standard Drinks/Week Comments No 0 (1 standard drink = 0.6 oz pur e alcohol) Feeling Safe Answer Date Recorded Are you in a relationship wi th someone who hurts you emotionally and/or physically? No 04/11/2025 Food Insecurity Answer Date Recorded Patient needs follow up regardin 02/03/2025 Transportation Needs Answer Date Record ed Patient needs follow up regardin 02/03/2025 Housing Stability Answer Date Recorded Social/Environmental Concerns No concerns Utility Needs Answer Date Recorded Patient needs follow up regardin 02/03/2025 Sex and Gender Information Value Date Recorded Sex Assigned at Not on file Legal Sex Male 3:23 AM PI/SENIOR RESEARCH ASSOCIATE Gender Identity Not on file Sexual Orientation Not on file documented as of this encounter Last Filed Vital Signs Vital Sign Reading Time Taken Comments Blood Pressure 164/95 04/11/2025 10:45 PM CDT Pulse 78 04/11/2025 10:45 PM CDT Temperature 36.3 C (97.3 F) 04/11/2025 4:42 PM CDT Respiratory Rate 16 04/11/2025 10:45 PM CDT Oxygen Saturation 95% 04/11/2025 10:45 PM CDT Inhaled Oxygen Concentration - - Weight 94.6 kg (208 lb 9.6 oz) 04/11/2025 4:42 P M CDT Height 182.9 cm (6') 04/11/2025 4:42 PM CDT Body Mass Index 28.29 04/11/2025 4:42 PM CDT documented in this encounter Medications at Time of Discharge varenicline tartrate (CHANTIX) 0.5 mg Tablet Take 0.5 mg by mouth 2 times daily. lidocaine-transpar ent dressing (LMX 4 PLUS) 4 % Kit Apply to affected area. diphenhydrAMINE (BENADRYL) 25 mg tablet Take 25 mg by mouth. hydrALAZINE (APRESOLINE) 100 mg Tablet tablet Take 1 Tablet (100 mg) by mouth every 8 hours. 300 Tablet 3 5 bumetanide (BUMEX) 1 mg tablet Take 1 Tablet by mouth. 5 traZODone (DESYREL) 50 mg tablet Take 1 Tablet (50 mg) by mouth daily at bedtime. 30 Tablet 2 5 naloxone (NARCAN) 4 mg/spray [place], Non-Aerosol EMERGENCY USE ONLY: Administer 1 spray (4 mg) in one nostril one time. May repeat in alternating nostrils every 2-3 min until responsive or EMS arrives. 2 Each 3 5 ondansetron (ZOFRAN ODT) 4 mg Tablet, Rapid Dissolve DISSOLVE 1 TABLET IN MOUTH EVERY 6 HOURS NEEDED FOR NAUSEA / EMESIS. DISSOLVE TABLET ON TOP OF TONGUE,THEN SWALLOW WITH SALIVA 5 benzonatate (TESSALON) 100 mg capsuleIndications :Acute cough Take 1 Capsule (100 mg) by mouth 3 times daily as needed for Cough. 30 Capsule 5 spironolactone (ALDACTONE) 25 mg tablet Take 1 Tablet (25 mg) by mouth daily. 30 Tablet 2 5 atorvastatin (LIPITOR) 80 mg tablet Take 1 Tablet (80 mg) by mouth daily. 30 Tablet 2 5 amLODIPine (NORVASC) 10 mg tablet Take 1 Tablet (10 mg) by mouth daily. 30 Tablet 2 5 cloNIDine HCL (CATAPRES) 0.2 mg tablet Take 1 Tablet (0.2 mg) by mouth 3 times daily. 90 Tablet 2 5 carvediloL (COREG) 25 mg tablet Take 1 Tablet (25 mg) by mouth every 12 hours. 60 Tablet 2 5 ARIPiprazole (Abilify) 5 mg tabletIndications: Paranoid schizophrenia (CMS/HCC) Take 1 Tablet (5 mg) by mouth daily. 30 Tablet 5 5 gabapentin (NEURONTIN) 100 mg capsuleIndications :History of lumbar spinal fusion Take 1 Capsule (100 mg) by mouth 3 times daily. 90 Capsule 2 5 buPROPion HCL (WELLBUTRIN XL) 150 mg Extended Release 24 hour tabletIndications: Paranoid schizophrenia (CMS/HCC) Take 1 Tablet (150 mg) by mouth daily. 30 Tablet 2 5 amitriptyline (ELAVIL) 50 mg tabletIndications: Paranoid schizophrenia (CMS/HCC) Take 1 Tablet (50 mg) by mouth daily at bedtime. 30 Tablet 2 5 aspirin (ECOTRIN EC) 81 mg Tablet, Delayed Release (E.C.) Take 1 Tablet (81 mg) by mouth daily. 30 Tablet 5 insulin glargine (Lantus Solostar U-100 Insulin) 100 unit/mL pen syringe Inject 25 Units by subcutaneous injection 2 times daily. 15 mL 5 albuterol sulfate HFA 90 mcg/actuation aerosol inhalerIndications :Shortness of breath Take 2 Puffs by inhalation every 6 hours as needed for Shortness of Breath. 8.5 Gram 1 5 Blood Pressure Monitor KitIndications:Unc ontrolled hypertension To monitor blood pressure daily 1 Each 4 Blood-Glucose Sensor (Dexcom G7 Sensor) DeviceIndications: Type 1 diabetes mellitus with other kidney complication ([facility]) To continuously monitor blood sugar. Change sensor every 10 days. 3 Each 8 4 insulin lispro (HumaLOG KwikPen Insulin) 100 unit/mL pen syringe Inject 10 units 3 times daily before meals plus a medium dose sliding scale. 15 mL 4 EPINEPHrine (EPIPEN) 0.3 mg/0.3 mL Auto-Injector Inject 0.3 mL (0.3 mg) by intramuscular injection 1 time daily as needed for Anaphylaxis. 1 Each 4 blood sugar diagnostic Strip Needs 120 strips for 4 times per day 120 Strip 4 lancets 4 times per day testing insulin 120 Each 4 alcohol Pads, Medicated 4 times per day glucose testing. 120 Each 4 documented as of this encounter ED Notes * Olamide Judge RN - 04/11/2025 10:56 PM CDT EMS arrived for transport. Report given to french polisher. * Olamide Judge RN - 04/11/2025 9:13 PM CDT Dispatch called for transfer, spoke with Bhavesh. * Faye Márquez RCP - 04/11/2025 7:01 PM CDT EKG completed. Results given to Dr. Beckham and scanned into wedgies. * Lenin Shine RN - 04/11/2025 6:26 PM CDT SpO2 dropped to 88% on room air, entered room and patient was lying with head of bed at 15 degrees,reports he does have increased SOB with this position, raised head of bed to 45 degrees, SpO2 quickly increased to >92%. Does not appear in any distress during this encounter * Lenin Shnie RN - 04/11/2025 4:52 PM CDT Hunter San 34 y.o. male, arrived to the ED via TRANSPORTATION: private vehicle for complaints of Chief Complaint Patient presents with LOW BACK PAIN Spasms Low Back This patient arrives with his aunt for complaints of ongoing Low Back Pain and Low Back Muscle Spasms. Reports he has had this pain for around 1 week, pain is tolerable until he begins to walk and then begins experiencing spasms, leading to a fall this morning, denies any injuries from the fall today or any injuries that may have caused the current back pain/spasms. Reports he does dialysis on Saturday, , and Saturdays, went yesterday. Patient is hypertensive, reports he did take his antihypertensives today as scheduled. Vitals taken, patient placed on monitor, clothing removed as needed per policy, privacy provided to patient. Respiratory: WDL - Regular rhythm, symmetrical chest exp ansion, no dyspnea , Cardiac/Circulatory: Blood Pressure and Heart rate/pulse is elevated, Skin: WDL - Normal color for ethnicity, skin intact, patient is Alert and Oriented x4, pain scale: 9/10, findings; bleeding: without any bleeding noted. Behavior during evaluation: appropriate. Belongings secured, patient Weapons assessment: denied possession of any weapons or firearms at this time. Patientcomforted, all questions answered to the best of the staff's ability, education performed, and leftpatient in the room with the call light in reach, bed in lowest position, wheels locked, side railsup. * Maximilian Beckham MD - 04/11/2025 4:33 PM CDT HISTORY OF PRESENT ILLNESS Hunter San, a 34 y.o. male presents to the ED with a Chief Complaint of LOW BACK PAIN and Spasms Subjective The patient presents to the Emergency Department with progressively worsening mid back pain and urinary symptoms that started approximately two weeks ago, but have progressively gotten worse. The patient describes the kidney pain as feeling like someone with fiery nail gloves is grabbing and twisting my kidneys. The pain is bilateral, affecting both sides, and is tender to palpation. Associated urinary symptoms include burning during urination and decreased production of dark urine. The patient reports uncontrolled hypertension despite medication compliance. At yesterday's dialysis session, blood pressure was 220/119, which is higher than the patient's usual elevated readings. Associated symptoms include shortness of breath, headache, and nausea with vomiting multiple times atnight. Had an episode of diarrhea yesterday. The patient's medical history includes end-stage renal disease requiring dialysis (Linsey,Naomi,Claudio), hypertension (Uncontrolled), IDDM (uncontrolled), chronic back pain, and blurry vision. Surgical history includes multiple back surgeries and dialysis fistula placement in arm. Antihypertensive medications include clonidine, hydralazine, clonidine, amlodipine, bumex, and spironolactone. In the review of systems, the patient reports positive for fatigue, blurry vision, headache, elevated blood pressure, shortness of breath when sleeping, vomiting, diarrhea, dysuria, decreased urine output, back pain, muscle spasms, dizziness, and blood sugar control issues. History provided by: The patient Arrived by: Private vehicle Arrived from: Home REVIEW OF SYSTEMS Review of Systems All other systems reviewed and are negative. PAST MEDICAL HISTORY REVIEWED MEDICAL: Patient has a past medical history of Anemia, Background diabetic retinopathy (CMS/[facility]), Diabetes (not taking his meds x 3years ), Essential hypertension, Hyperlipidemia, Methamphetamine use disorder, mild (CMS/HCC) (12/06/2024), Renal disease, and Substance abuse ([facility]). SURGICAL: Patient has a past surgical history that includes back surgery; pr arteriovenous anastomosis open direct (Right, 01/18/2025); and retinal injections. FAMILY: Patient's family history includes Diabetes in his maternal grandmother; Glaucoma in his maternal grandmother. SOCIAL: reports that he has been smoking cigarettes. He has been exposed to tobacco smoke. He has never used smokeless tobacco. He reports current drug use. Drug: Marijuana. He reports being sexually active.He reports that he does not drink alcohol. No history on file. Social History Other Topics Concern Not on file ALLERGIES Julio inhibitors, Arb-angiotensin receptor antagonist, Lisinopril, and Venom-honey bee HOME MEDICATIONS Patient's Home Medications Current Home Medications ALBUTEROL SULFATE HFA 90 MCG/ACTUATION AEROSOL INHALER ALCOHOL PADS, MEDICATED AMITRIPTYLINE (ELAVIL) 50 MG TABLET AMLODIPINE (NORVASC) 10 MG TABLET ARIPIPRAZOLE (ABILIFY) 5 MG TABLET ASPIRIN (ECOTRIN EC) 81 MG TABLET, DELAYED RELEASE (E.C.) ATORVASTATIN (LIPITOR) 80 MG TABLET BENZONATATE (TESSALON) 100 MG CAPSULE BLOOD PRESSURE MONITOR KIT BLOOD SUGAR DIAGNOSTIC STRIP BLOOD-GLUCOSE SENSOR (THE ICONIC G7 SENSOR) DEVICE BUMETANIDE (BUMEX) 1 MG TABLET BUPROPION HCL (WELLBUTRIN XL) 150 MG EXTENDED RELEASE 24 HOUR TABLET CARVEDILOL (COREG) 25 MG TABLET CLONIDINE HCL (CATAPRES) 0.2 MG TABLET DIPHENHYDRAMINE (BENADRYL) 25 MG TABLET EPINEPHRINE (EPIPEN) 0.3 MG/0.3 ML AUTO-INJECTOR GABAPENTIN (NEURONTIN) 100 MG CAPSULE HYDRALAZINE (APRESOLINE) 100 MG TABLET TABLET INSULIN GLARGINE (LANTUS SOLOSTAR U-100 INSULIN) 100 UNIT/ML PEN SYRINGE INSULIN LISPRO (HUMALOG KWIKPEN INSULIN) 100 UNIT/ML PEN SYRINGE LANCETS LIDOCAINE-TRANSPARENT DRESSING (LMX 4 PLUS) 4 % KIT NALOXONE (NARCAN) 4 MG/SPRAY SPRAY, NON-AEROSOL ONDANSETRON (ZOFRAN ODT) 4 MG TABLET, RAPID DISSOLVE SPIRONOLACTONE (ALDACTONE) 25 MG TABLET TRAZODONE (DESYREL) 50 MG TABLET VARENICLINE TARTRATE (CHANTIX) 0.5 MG TABLET Medications Modified during this Encounter No medications on file Medications Discontinued during this Encounter No medications on file Objective PHYSICAL EXAM INITIAL VS BP: (!) 231/133 (04/11/25 1642), Heart Rate: (!) 114 bpm (04/11/251641), Resp: 17 (04/11/251641),Pulse: (!) 109 (04/11/251644), Temp: 97.3 ??F (36.3 ??C) (04/11/251641), Temp src: Temporal (04/11/251641), SpO2: 100 % (04/11/251641), Height: 6' (182.9 cm) (04/11/251641), Weight: 94.6 kg (208lb 9.6 oz) (04/11/251641), BMI (Calculated): (!) 28.28 (04/11/251641) No LMP for male patient. Physical Exam Vitals and nursing note reviewed. Constitutional: General: He is not in acute distress. Appearance: He is normal weight. He is ill-appearing. HENT: Head: Normocephalic. Mouth/Throat: Mouth: Mucous membranes are moist. Pharynx: Oropharynx is clear. Eyes: General: No scleral icterus. Extraocular Movements: Extraocular movements intact. Conjunctiva/sclera: Conjunctivae normal. Pupils: Pupils are equal, round, and reactive to light. Cardiovascular: Rate and Rhythm: Regular rhythm. Tachycardia present. Pulses: Normal pulses. Heart sounds: Murmur heard. Comments: Right upper extremity AVF. Right anterior upper chest shiley catheter. Pulmonary: Effort: Pulmonary effort is normal. No respiratory distress. Breath sounds: No wheezing or rhonchi. Abdominal: Palpations: Abdomen is soft. Tenderness: There is no abdominal tenderness. There is right CVA tenderness and left CVA tenderness. Musculoskeletal: Cervical back: Neck supple. Comments: Midline midback tenderness without any ecchymosis, stepoff, erythema, swelling or rash. At same level as the CVA is. Old lumbar surgical intervention scar midline that is healed without any abnormality visible. Skin: General: Skin is warm and dry. Capillary Refill: Capillary refill takes less than 2 seconds. Neurological: General: No focal deficit present. Mental Status: He is alert and oriented to person, place, and time. Mental status is at baseline. Cranial Nerves: No cranial nerve deficit. Sensory: No sensory deficit. Psychiatric: Mood and Affect: Mood normal. Behavior: Behavior normal. DIAGNOSTICS LAB: URINALYSIS WITH REFLEX MICROSCOPIC - Abnormal Result Value COLOR UA Yellow CLARITY UA Clear SPECIFIC GRAVITY UA 1.020 PH UA 7.5 LEUKOCYTE ESTERASE UA Negative NITRITE UA Negative PROTEIN UA 3+ (*) GLUCOSE UA 2+ (*) KETONES UA Negative UROBILINOGEN UA 0.2 BILIRUBIN UA Negative BLOOD UA 2+ (*) URINALYSIS MICROSCOPY ONLY - Abnormal WBC UA 0-2 RBC UA 6-10 (*) BACTERIA UA Negative EPITHELIAL CELLS, URINE 0-5 HYALINE CAST 6-10 (*) CBC WITH DIFFERENTIAL - Abnormal WBC 11.1 (*) RBC 3.57 (*) HEMOGLOBIN 11.3 (*) HEMATOCRIT 32.7 (*) MCV 91.6 MCH 31.7 MCHC 34.6 RDW 14.4 RDW-STDEV 47.6 PLATELETS 256 MPV 10.4 NEUTROPHILS 71 (*) LYMPHOCYTES 19 (*) MONOCYTES 8 EOSINOPHILS 2 BASOPHILS 1 IMMATURE GRANULOCYTES 0 NEUTROPHIL ABSOLUTE 7.84 (*) LYMPHOCYTE ABSOLUTE 2.15 MONOCYTE ABSOLUTE 0.83 (*) EOSINOPHIL ABSOLUTE 0.17 BASOPHILS ABSOLUTE 0.08 IMMATURE GRANULOCYTES ABSOLUTE 0.05 COMPREHENSIVE METABOLIC PANEL - Abnormal SODIUM 134 (*) POTASSIUM 5.4 (*) CHLORIDE 98 CO2 22 CALCIUM 9.6 BUN 49 (*) CREATININE 5.95 (*) GLUCOSE 193 (*) TOTAL PROTEIN 7.0 ALBUMIN 3.4 (*) BILIRUBIN TOTAL 0.4 ALKALINE PHOSPHATASE 87 AST 29 ALT 27 GFR 12 (*) ANION GAP 14 BRAIN NATRIURETIC PEPTIDE, BNP OR PROBNP - Abnormal PROBNP, N TERMINAL 68,888 (*) POC GLUCOSE - Abnormal GLUCOSE POC 199 (*) SPECIMEN SOURCE, GLUCOSE POC Whole Blood POC GLUCOSE RADIOLOGY: No orders to display EKG: PROCEDURES Procedures MEDICAL DECISION MAKING AND PLAN OF CARE Medical Decision Making Patient presents with worsening kidney pain and urinary symptoms for the past 2 weeks. Reports burning sensation during urination and decreased urine output. Patient is on dialysis but states they haven't been receiving the recommended amount due to fistula limitations. Recent dialysis showed severely elevated blood pressure (220/119). Patient also reports shortness of breath, headache, blurry vision, and episodes of vomiting and diarrhea last night. -Hypertensive Emergency: Assessment: Patient reports severely elevated blood pressure (220/119) at recent dialysis session despite taking antihypertensive medications. Current symptoms include headache and blurry vision, which could be related to hypertensive urgency. Patient states blood pressure is typically high but notto this degree. Patient has mild leukocytosis, however neutrophils are at 71% only. Patient does have worsening renal function as compared to December, however BUN is also elevated at 49. Potassium is 5.4. Glucose is 193 and anion gap is 14. proBNP is 68,888. Patient's UA showed some proteinuria and glucosuria, however patient also has 2+ blood, has blood all the time present in the urine. Patient was provided with a dose of hydromorphone 0.5 mg IV and due to blood pressure being elevated 218/122 and pulse rate still elevated at 107, provided with a dose of labetalol 5 mg IV push. Cannot drastically dropped the blood pressure below 180. After 5 mg of the labetalol, blood pressure remains at 207/117 with a pulse rate of 97. Patient continues to have headache and some shortness of breath, so started patient on Labetalol drip at this point. Reached out [facility] in [place] and awaiting response from hospitalist to discuss the patient. Care of the patient has been transferred to the night team at 7 PM. Care transferred at 7:00 this evening reviewed patient's labs imaging history and physical patient accepted by hospitalist at [facility] blood pressure stable in the 170 systolic and patient feels better will give Dilaudid as needed for pain control Amount and/or Complexity of Data Reviewed Labs: ordered. Radiology: ordered. ECG/medicine tests: ordered. Risk OTC drugs. Prescription drug management. Clinical Scoring & Consults Medications Administered During the ED Stay from 04/11/2025 1633 to 04/11/2025 2145 Date/Time Order Dose Route Action 04/11/2025 1715 CDT sodium chloride flush injection 10 mL 10 mL IV Given 04/11/2025 1715 CDT HYDROmorphone (PF) (DILAUDID) injection 0.5 mg 0.5 mg IV Given 04/11/2025 1756 CDT labetaloL (NORMODYNE;TRANDATE) 5 mg/mL injection 5 mg 5 mg IV Given 04/11/20251999 CDT labetaloL (NORMODYNE;TRANDATE) 200 mg in sodium chloride 0.9 % 200 mL infusion 1.5 mg/min IV Rate Change 04/11/2025 1900 CDT labetaloL (NORMODYNE;TRANDATE) 200 mg in sodium chloride 0.9 % 200 mL infusion 1 mg/min IV New Bag 04/11/2025 1900 CDT HYDROmorphone (PF) (DILAUDID) injection 0.5 mg 0.5 mg IV Given 04/11/20251917 CDT ondansetron (ZOFRAN) 4 mg/2 mL injection 4 mg 4 mg IV Given 04/11/20252027 CDT nicotine (NICODERM CQ) 21 mg/24 hr transdermal patch 1 Patch 1 Patch Transdermal Applied 04/11/20252128 CDT HYDROmorphone (PF) (DILAUDID) injection 0.3 mg 0.3 mg IV Given 04/11/20252137 CDT diphenhydrAMINE (BENADRYL) tablet 50 mg 50 mg Oral Given . New Prescriptions for this Encounter LAST VS BP: (!) 176/99 (04/11/252114), Heart Rate: 82 bpm (04/11/252114), Resp: 21 (04/11/252114), Pulse: 81 (04/11/252114), Temp: 97.3 ??F (36.3 ??C) (04/11/251641), Temp src: Temporal (04/11/251641),SpO2: 98 % (04/11/252114) CLINICAL IMPRESSION Final diagnoses: [I16.1] Hypertensive emergency (Primary) [E87.79] Other hypervolemia [Z99.2] Need for acute hemodialysis DISPOSITION, EDUCATION AND MEDICATION RECONCILIATION Medications reconciled. See after visit summary for patient education on discharged patients. ED Disposition ED Disposition Transfer Condition Stable User Maximilian Beckham MD Date/Time [place] Apr 11, 2025 8:26 PM Comment -- ATTESTATION STATEMENTS documented in this encounter Plan of Treatment Upcoming Encounters Date Type Department Care Team (Late st Contact Info) Description 04/12/2025 11:00 AM CDT Office Visit [address] [phone] Duke Alarcon MD [address] [address] 04/23/2025 10:00 AM CDT Appointment [facility] Interventional Radiology [address] [place] [address] Angélica Ny MD [address] [place] [address] Tayler Ramírez, [facility] [address] [place] [address] 05/03/2025 8:40 AM CDT Office Visit [facility] Ophthalmology [place] [address] [place] [address] Kim Servin MD [address] [place] [address] 06/07/2025 9:00 AM CDT Appointment [facility] [address] [place] [address] Lawanda Mendoza, [facility] [address] [place] [address] 07/05/2025 9:40 AM CDT Office Visit [facility] Cardiology [facility] [address] [place] [address] Anne Duong, [facility] [address] [place] [address] 09/27/2025 9:30 AM PI/SENIOR RESEARCH ASSOCIATE Office Visit [facility] Engraving Patternmaker Optometry [facility] [address] [place] [address] Constantin Bales, OD [address] [place] [id number] Pending Results Name Type Priority Associated Diagnoses Date /Time XR CHEST PA OR AP 1 VW Imaging Stat 5:29 PM CDT Scheduled Orders Name Type Priority Associated Diagnoses Orde r Schedule XR CHEST PA OR AP 1 VW Imaging Routine Rad Once for 1 Occurrences starting 04/11/2025 until 04/11/2025 POC GLUCOSE Point of Care Testing Routine ONE TIME COLLECT NOW for 1 Occurrences starting 04/11/2025 until 04/11/2025 documented as of this encounter Procedures Procedure Name Priority Date/Time Associated Diagnosis Comments POC GLUCOSE Stat 04/11/2025 5:11 PM CDT CBC WITH DIFFERENTIAL Stat 04/11/2025 5:09 PM CDT BRAIN NATRIURETIC PEPTIDE, BNP OR PROBNP Stat 04/11/2025 5:09 PM CDT COMPREHENSIVE METABOLIC PANEL Stat 04/11/2025 5:09 PM CDT URINALYSIS MICROSCOPY ONLY Stat 04/11/2025 4:42 PM CDT URINALYSIS W/REFLEX MICROSCOPIC Stat 04/11/2025 4:42 PM CDT documented in this encounter Results * (ABNORMAL) POC GLUCOSE (04/11/2025 5:11 PM CDT) GLUCOSE POC 199(H) 74 - 99 mg/dL 04/11/2025 5:11 PM CDT [facility] SPECIMEN SOURCE, GLUCOSE POC Whole Blood 04/11/2025 5:11 PM CDT [facility] Blood, whole 04/11/2025 5:11 PM CDT 04/11/2025 5:19 PM CDT us Kelsea Dailey MD POINT OF CARE TESTING Final Res ult [facility] CLIA # [id number] [address] [place] [address] * (ABNORMAL) BRAIN NATRIURETIC PEPTIDE, BNP OR PROBNP (04/11/2025 5:09 PM CDT) PROBNP, N TERMINAL 68,888(H) 0 - 125 pg/mL 04/11/2025 5:47 PM CDT [facility] Comment: INTERPRETIVE COMMENT based on diagnosis: Diagnostic NT pro-BNP cutoffs for Heart Failure in the absence of renal failure is suggested for the following ranges <75 years: <125 pg/mL >=75 years: <450 pg/mL Exclusionary rule out cut-point for Acute Decompensated Heart Failure(ADHF) All ages: <300 pg/mL Diagnostic NT pro-BNP cutoffs for Acute Decompensated Heart Failure(ADHF) in the absence of renal failure is suggested for the following ages <50 years: > 450 pg/mL 50-75 years: > 900 pg/mL >75 years: >1800 pg/mL Blood Venipuncture / Unknown 04/11/2025 5:09 PM CDT 04/11/2025 5:15 PM CDT us Kelsea Dailey MD CHEMISTRY ORDERABLES Final Resu lt Performing Organization Address [facility]/ZIP Co de Phone Number [facility] CLIA # [id number] [address] [place] [phone] * (ABNORMAL) COMPREHENSIVE METABOLIC PANEL (04/11/2025 5:09 PM CDT) SODIUM 134(L) 136 - 145 mmol/L 04/11/2025 5:36 PM CDT [facility] POTASSIUM 5.4(H) 3.5 - 5.1 mmol/L 04/11/2025 5:36 PM CDT [facility] CHLORIDE 98 98 - 107 mmol/L 04/11/2025 5:36 PM CDT [facility] CO2 22 22 - 29 mmol/L 04/11/2025 5:36 PM [facility] CALCIUM 9.6 8.6 - 10.0 mg/dL 04/11/2025 5:36 PM [facility] BUN 49(H) 6 - 20 mg/dL 04/11/2025 5:36 PM [facility] CREATININE 5.95(H) 0.67 - 1.17 mg/dL 04/11/2025 5:36 PM [facility] GLUCOSE 193(H) 74 - 99 mg/dL 04/11/2025 5:36 PM [facility] TOTAL PROTEIN 7.0 6.6 - 8.7 g/dL 04/11/2025 5:36 PM [facility] ALBUMIN 3.4(L) 3.5 - 5.2 g/dL 04/11/2025 5:36 PM [facility] BILIRUBIN TOTAL 0.4 0.0 - 1.2 mg/dL 04/11/2025 5:36 PM [facility] ALKALINE PHOSPHATASE 87 40 - 129 U/L 04/11/2025 5:36 PM [facility] AST 29 0 - 50 U/L 04/11/2025 5:36 PM [facility] Comment:Hemolysis present. R esult may be falsely elevated. ALT 27 0 - 50 U/L 04/11/2025 5:36 PM [facility] GFR 12(L) >=60 mL/min/1.7 3 sq meter 04/11/2025 5:36 PM [facility] Comment:eGFR calculated with 2020 CKD-EPI equation. Vegetarian diet, extremely high or low muscle mass, and may affect results. Cystatin C with Glomerular Filtration Rate is a suitable alternative for these patients. ANION GAP 14 5 - 20 mmol/L 04/11/2025 5:36 PM [facility] Blood Venipuncture / Unknown 04/11/2025 5:09 PM CDT 04/11/2025 5:15 PM CDT us Kelsea Dailey MD CHEMISTRY ORDERABLES Final Resu lt [facility] CLIA # [id number] [address] [place] [address] * (ABNORMAL) CBC WITH DIFFERENTIAL (04/11/2025 5:09 PM CDT) WBC 11.1(H) 4.2 - 9.1 K/uL 04/11/2025 5:19 PM CDT [facility] RBC 3.57(L) 4.63 - 6.08 M/uL 04/11/2025 5:19 PM [facility] HEMOGLOBIN 11.3(L) 13.7 - 17.5 g/dL 04/11/2025 5:19 PM [facility] HEMATOCRIT 32.7(L) 40.1 - 51.0 % 04/11/2025 5:19 PM [facility] MCV 91.6 79.0 - 92.2 fL 04/11/2025 5:19 PM [facility] MCH 31.7 25.7 - 32.2 pg 04/11/2025 5:19 PM [facility] MCHC 34.6 32.3 - 36.5 g/dL 04/11/2025 5:19 PM [facility] RDW 14.4 11.0 - 14.5 % 04/11/2025 5:19 PM [facility] RDW-STDEV 47.6 36.9 - 56.9 fL 04/11/2025 5:19 PM [facility] PLATELETS 256 130 - 400 K/uL 04/11/2025 5:19 PM [facility] MPV 10.4 10.0 - 14.8 fL 04/11/2025 5:19 PM [facility] NEUTROPHILS 71(H) 34 - 68 % 04/11/2025 5:19 PM [facility] LYMPHOCYTES 19(L) 22 - 53 % 04/11/2025 5:19 PM [facility] MONOCYTES 8 5 - 12 % 04/11/2025 5:19 PM CDT [facility] EOSINOPHILS 2 1 - 7 % 04/11/2025 5:19 PM CDT [facility] BASOPHILS 1 0 - 1 % 04/11/2025 5:19 PM T [facility] IMMATURE GRANULOCYTES 0 % 04/11/2025 5:19 PM CDT [facility] NEUTROPHIL ABSOLUTE 7.84(H) 1.78 - 5.38 K/uL 04/11/2025 5:19 PM T [facility] LYMPHOCYTE ABSOLUTE 2.15 1.20 - 3.40 K/uL 04/11/2025 5:19 PM CDT [facility] MONOCYTE ABSOLUTE 0.83(H) 0.30 - 0.82 K/uL 04/11/2025 5:19 PM [facility] EOSINOPHIL ABSOLUTE 0.17 0.04 - 0.54 K/uL 04/11/2025 5:19 PM T [facility] BASOPHILS ABSOLUTE 0.08 0.01 - 0.08 K/uL 04/11/2025 5:19 PM CDT [facility] IMMATURE GRANULOCYTES ABSOLUTE 0.05 K/uL 04/11/2025 5:19 PM [facility] Blood Venipuncture / Unknown 04/11/2025 5:09 PM CDT 04/11/2025 5:15 PM CDT us Kelsea Dailey MD HEMATOLOGY ORDERABLES [id number] [address] [place] [id number] * (ABNORMAL) URINALYSIS MICROSCOPY ONLY (04/11/2025 4:42 PM CDT) WBC UA 0-2 0 - 2 /hpf 04/11/2025 5:08 PM T [facility] RBC UA 6-10(A) 0 - 2 /hpf 04/11/2025 5:08 PM CDT [facility] BACTERIA UA Negative Negative /hpf 04/11/2025 5:08 PM CDT [facility] EPITHELIAL CELLS, URINE 0-5 0 - 5 /hpf 04/11/2025 5:08 PM CDT [facility] HYALINE CAST 6-10(A) None Seen, 0-2 /lpf 04/11/2025 5:08 PM CDT [facility] Urine URINE SPECIMEN OBTAINED BY CLEAN CATCH PROCEDURE / Unknown Collection / Unknown 04/11/2025 4:42 PM CDT 04/11/2025 4:53 PM CDT Kelsea Dailey MD URINE ORDERABLES Final Result [facility] CLIA # [id number] [address] [place] [address] * (ABNORMAL) URINALYSIS WITH REFLEX MICROSCOPIC (04/11/2025 4:42 PM CDT) COLOR UA Yellow Pale to Dark Yellow 04/11/2025 5:08 PM CDT [facility] CLARITY UA Clear Clear 04/11/2025 5:08 PM T [facility] SPECIFIC GRAVITY UA 1.020 1.003 - 1.035 04/11/2025 5:08 PM T [facility] PH UA 7.5 5.0 - 8.0 04/11/2025 5:08 PM T [facility] LEUKOCYTE ESTERASE UA Negative Negative 04/11/2025 5:08 PM T [facility] NITRITE UA Negative Negative 04/11/2025 5:08 PM T [facility] PROTEIN UA 3+(A) Negative 04/11/2025 5:08 PM [facility] GLUCOSE UA 2+(A) Negative 04/11/2025 5:08 PM [facility] KETONES UA Negative Negative 04/11/2025 5:08 PM T [facility] UROBILINOGEN UA 0.2 <2.0 mg/dL 5:08 PM T [facility] BILIRUBIN UA Negative Negative 04/11/2025 5:08 PM CDT [facility] BLOOD UA 2+(A) Negative 04/11/2025 5:08 PM CDT [facility] Urine URINE SPECIMEN OBTAINED BY CLEAN CATCH PROCEDURE / Unknown Collection / Unknown 04/11/2025 4:42 PM CDT 04/11/2025 4:53 PM CDT Keslea Dailey MD URINE ORDERABLES Final Result [facility] CLIA # [id number] [address] [place] [id number] documented in this encounter Visit Diagnoses Diagnosis Hypertensive emergency- Primary Unspecified essential hypertension Hypertensive emergency Unspecified essential hypertension Other hypervolemia Need for acute hemodialysis Renal dialysis status Need for acute hemodialysis Renal dialysis status Hypervolemia Other fluid overload documented in this encounter Administered Medications Active Administered Medications - up to 3 most recent administrations Medication Order MAR Action Action Date Dose Rate Site HYDROmorphone (PF) (DILAUDID) injection 0.3 mg 0.3 mg, IV, EVERY 2 HOURS PRN, Starting on 04/11/25 at 2119, Until Discontinued, Pain (See admin instructions), Routine Given 04/11/2025 9:29 PM CDT 0.3 mg labetaloL (NORMODYNE;TRANDATE) 200 mg in sodium chloride 0.9 % 200 mL infusion 0-2 mg/min (0-120 mL/hr), IV, TITRATE, Starting on Sat04/11/25 at 1900, Until Discontinued, Should this infusion be titrated? Yes, Initial infusion dose? 1 mg/min, Titration Dose Increment? 0.5 mg/min, Titration Interval? 10 minutes, SBP Goal? 110-180 New Bag 04/11/2025 10:19 PM CDT 1.5 mg/min 90 mL/hr Rate Change 04/11/2025 8:00 PM CDT 1.5 mg/min 90 mL/hr New Bag 04/11/2025 7:00 PM CDT 1 mg/min 60 mL/hr nicotine (NICODERM CQ) 21 mg/24 hr transdermal patch 1 Patch 1 Patch, Transdermal, DAILY, First dose (after last modification) on 04/11/25 at 2030, Until Discontinued, Stat Applied 04/11/2025 8:28 PM CDT 1 Patch Arm, Right Upper sodium chloride flush injection 10 mL 10 mL, IV, EVERY 12 HOURS (BlD), First dose on 04/11/25 at 2100, Until Discontinued, Routine sodium chloride flush injection 10 mL 10 mL, IV, SEE ADMIN INSTRUCTIONS, Starting on 04/11/25 at 1656, Until Discontinued, Routine Given 04/11/2025 5:15 PM CDT 10 mL Inactive Administered Medications - up to 3 most recent administrations Medication Order MAR Action Action Date Dose Rate Site diphenhydrAMINE (BENADRYL) tablet 50 mg 50 mg, Oral, ONE TIME ONLY, 1 dose, On 04/11/25 at 2145, Routine Given 04/11/2025 9:38 PM CDT 50 mg HYDROmorphone (PF) (DILAUDID) injection 0.5 mg 0.5 mg, IV, ONE TIME ONLY, 1 dose, On 04/11/25 at 1715, Routine Given 04/11/2025 5:15 PM CDT 0.5 mg HYDROmorphone (PF) (DILAUDID) injection 0.5 mg 0.5 mg, IV, ONE TIME ONLY, 1 dose, On 04/11/25 at 1900, Routine Given 04/11/2025 7:00 PM CDT 0.5 mg labetaloL (NORMODYNE;TRANDATE) 5 mg/mL injection 5 mg 5 mg, IV, ONE TIME ONLY, 1 dose, On 04/11/25 at 1800, Routine Given 04/11/2025 5:56 PM CDT 5 mg ondansetron (ZOFRAN) 4 mg/2 mL injection 4 mg 4 mg, IV, ONE TIME ONLY, 1 dose, On 04/11/25 at 1930, Stat Given 04/11/2025 7:18 PM CDT 4 mg documented in this encounter Active and Recently Administered Medications Times are shown in CDT. Scheduled Medication Order 04/09/2025 04/10/2025 04/11/2025 diphenhydrAMINE (BENADRYL) tablet 50 mg (COMPLETED) 50 mg, Oral, ONE TIME ONLY, 1 dose, On 04/11/25 at 2145, Routine 2137 (Given - Provid er: Olamide Judge RN) HYDROmorphone (PF) (DILAUDID) injection 0.5 mg (COMPLETED) 0.5 mg, IV, ONE TIME ONLY, 1 dose, On 04/11/25 at 1715, Routine 171 (Given - Provid er: Lenin Shine RN) HYDROmorphone (PF) (DILAUDID) injection 0.5 mg (COMPLETED) 0.5 mg, IV, ONE TIME ONLY, 1 dose, On 04/11/25 at 1900, Routine 1900 (Given - Provid er: Lenin Shine RN) labetaloL (NORMODYNE;TRANDATE) 5 mg/mL injection 5 mg (COMPLETED) 5 mg, IV, ONE TIME ONLY, 1 dose, On 04/11/25 at 1800, Routine 175 (Given - Provid er: Lenin Shine RN) nicotine (NICODERM CQ) 21 mg/24 hr transdermal patch 1 Patch 1 Patch, Transdermal, DAILY, First dose (after last modification) on 04/11/25 at 2030, Until Discontinued, Stat 2027 (Applied - Prov ider: Olamide Judge RN) ondansetron (ZOFRAN) 4 mg/2 mL injection 4 mg (COMPLETED) 4 mg, IV, ONE TIME ONLY, 1 dose, On 04/11/25 at 1930, Stat 191 (Given - Provid er: Olamide Judge RN) sodium chloride flush injection 10 mL 10 mL, IV, EVERY 12 HOURS (BlD), First dose on 04/11/25 at 2100, Until Discontinued, Routine 2099 (Due) sodium chloride flush injection 10 mL 10 mL, IV, SEE ADMIN INSTRUCTIONS, Starting on 04/11/25 at 1656, Until Discontinued, Routine 1714 (Given - Provid er: Lenin Shine RN) Continuous Medication Order 04/09/2025 04/10/2025 04/11/2025 labetaloL (NORMODYNE;TRANDATE) 200 mg in sodium chloride 0.9 % 200 mL infusion 0-2 mg/min (0-120 mL/hr), IV, TITRATE, Starting on 04/11/25 at 1900, Until Discontinued, Should this infusion be titrated? Yes, Initial infusion dose? 1 mg/min, Titration Dose Increment? 0.5 mg/min, Titration Interval? 10 minutes, SBP Goal? [id number] (New Bag - Prov ider: Lenin Shine RN - Comment: Labetalol premix bag not available. 2-100mg Labetalol vials placed in 200mL bag of saline. Medication not scanning, medication not available as preset on IV pump, manually programmed.)1999 (Rate Change - Provider: Olamide Judge RN)2099 (Stopped - Provider: Olamide Judge RN)2218 (New Bag - Provider: Olamide Judge RN - Comment: meds will not scan as ordered, pump manually programmed.)2258 (Stopped - Provider: Olamide Judge RN - Comment: continued upon transfer) PRN Medication Order 04/09/2025 04/10/2025 04/11/2025 HYDROmorphone (PF) (DILAUDID) injection 0.3 mg 0.3 mg, IV, EVERY 2 HOURS PRN, Starting on 04/11/25 at 2118, Until Discontinued, Pain (See admin instructions), Routine 2128 (Given - Provid er: Olamide Judge RN) documented in this encounter Care Teams Stock Preparation Operator Relationship Specialty Start Date End Date Duke Alarcon MD [address] [phone] PCP - General Family Practice 08/10/24 documented as of this encounter
[2025-04-11 23:50] VITALS: BP 160/98; PULSE 78; O2SAT 97; BMI 28.0
--- OUTSIDE RECORDS SUMMARY | 2025-04-11 23:51 | XMS_ITS | Encounter Summary ---
Author Organization [facility] Address [address] [place] [address] Care Team Providers Care Centrifugal Drier Operator Name Role Phone Karlo Banks MD Primary Care Provider [phone] Encounter Details Date Type Department Care Team (Latest Contact Info) Description 11/01/2003 Outpatient Historical [facility] [address] [place] [phone] Holland Bell MD [address] [place] [address] ASTHMA UNSPECIFIED (Primary Dx) Social History Tobacco Use Types Packs/Day Years Used Date Smoking Tobacco: Never Assessed Sex and Gender Information Value Date Recorded Sex Assigned at Not on file Legal Sex Male 5:07 AM [employer] Gender Identity Not on file Sexual Orientation Not on file documented as of this encounter Plan of Treatment Not on file documented as of this encounter Visit Diagnoses Diagnosis Unspecified asthma(493.90)- Primary Unspecified asthma documented in this encounter Care Teams Centrifugal Drier Operator Relationship Specialty Start Date End Date Karlo Banks MD PCP - General Internal Medicine 10/14/14 01/11/21 documented as of this encounter
--- OUTSIDE RECORDS SUMMARY | 2025-04-11 23:51 | XMS_ITS | Clinical Summary ---
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 Duplex scan. Patient status: Outpatient. Study status: Routine. Procedure: A vascular evaluation was performed with the patient in thesupine position. Image quality was good. Peripheral grafts: Fistula from the right brachial artery to the right cephalic vein: Arterial flow: - Right brachial mid: Right brachial mid 2.14m/sec 1485.96ml/min - Graft- inflow: - inflow 2.09m/sec 1831.2ml/min - Graft- proximal anastomosis: - proximal anastomosis 5.28m/wic2459.7ml/min - Graft- proximal graft: - proximal graft 2.95m/sec 6.60cm 1703.4ml/min3.2mm - Graft- mid graft: - mid graft 1.28m/sec 10.20cm 1473.84ml/min 2.3mm - Graft- distal graft: - distal graft 0.66m/sec 8.00cm 1298.7ml/min2.9mm - Graft- outflow: - outflow 0.74m/sec 1179.9ml/min [facility] is accredited withthe Intersocietal Commission for the Accreditation of Vascular Laboratories (ICAVL) Prepared and Electronically Authenticated Azucena Abebe Confirmed 03/19/2025 20:22 us Amy Null MD ORDERABLES Final Result * INTRAVITREAL INJECTION, PHARMACOLOGIC AGENT - OU - BOTH EYES (02/22/2025 11:09 AM CDT) Narrative [facility] - 02/22/2025 11:09 AM CDT Time Out 02/22/2025. 9:34 AM. Confirmed correct patient, procedure, site, and patient consented. Anesthesia Topical anesthesia was used. Anesthetic medications included Proparacaine 0.5%, Tetracaine 0.5%, Tetravisc 0.5%. Procedure Right Eye Preparation included 0.25% betadine irrigation. A (32g) needle was used. Injection: 2 mg aflibercept 2 mg/0.05 mL Route: Intravitreal, Site: Eye, Right [facility]: 15216-553-55, Lot: 0, Waste: 0 mL This medication is being administered as part of a group. Left Eye Preparation included 0.25% betadine irrigation. A (32g) needle was used. Injection: 2 mg aflibercept 2 mg/0.05 mL Route: Intravitreal, Site: Eye, Left [facility]: 55197-552-81, Lot: 0, Waste: 0 mL This medication is being administered as part of a group. Post-op Right Eye Post injection exam found visual acuity of at least counting fingers. The patient tolerated the procedure well. There were no complications. The patient received written and verbal post procedure care education. Post injection medications were not given. Left Eye Post injection exam found visual acuity of at least counting fingers. The patient tolerated the procedure well. There were no complications. The patient received written and verbal post procedure care education. Post injection medications were not given. Notes Lot on consent 3.5 mm superotemporally to the limbus Result [facility] Kim Servin MD OPHTH CLINIC PROCEDURES Final R esult Performing Organization Address [place] [[email or web address]] de Phone Number [facility] CLIA# [id number] [address] [place] [address] * OCT, RETINA - OU - BOTH EYES (02/22/2025 10:19 AM CDT) Narrative [facility] - 02/22/2025 11:08 AM CDT RIGHT EYE: Mild macular edema, Intraretinal cystoid spaces, and intraretinal hyper-reflective foci LEFT EYE:Mild macular edema, Intraretinal cystoid spaces, intraretinal hyper-reflective foci, and disruption of outer-retinal layers Result [facility] Kim Servin MD OPHTH TOMOGRAPHY Final Result Performing Organization Address [facility] Phone Number [facility] * PUGH RETINAL PHOTOCOAGULATION - OU - BOTH EYES (02/03/2025 4:30 PM CDT) Narrative [facility] - 02/03/2025 4:30 PM CDT Time Out Confirmed correct patient, procedure, site, and patient consented. Anesthesia Topical anesthesia was used. Anesthetic medications included Lidocaine 2%, Proparacaine 0.5%, Tetracaine 0.5%. Laser Information Right Eye The type of laser was argon. Color was green. Total spots was 660. Left Eye The type of laser was argon. Color was green. Total spots was 1207. Post-op Right Eye The patient tolerated the procedure well. There were no complications. The patient received written and verbal post procedure care education. Left Eye The patient tolerated the procedure well. The patient received written and verbal post procedure care education. Result [facility] Kim Servin MD OPHTH CLINIC PROCEDURES Final R esult Performing Organization Address [facility] [[email or web address]] de Phone Number [facility] CLIA# [id number] [address] [place] [address] * CL FISTULA (01/18/2025 8:41 AM CDT) 01/18/2025 7:35 AM CDT Narrative Saskia Lima RN - 01/18/2025 8:48 AM CDT Procedure was not performed by a Building Economist, please see Chart Review - Notes tab for operative report. Amy Null MD CUP CATH ORDERABLES Final Resu lt * INTRAVITREAL INJECTION, PHARMACOLOGIC AGENT - OU - BOTH EYES (01/11/2025 12:57 PM CDT) Narrative [facility] - 01/11/2025 12:57 PM CDT Time Out 01/11/2025. 11:14 AM. Confirmed correct patient, procedure, site, and patient consented. Anesthesia Topical anesthesia was used. Anesthetic medications included Proparacaine 0.5%, Tetracaine 0.5%, Tetravisc 0.5%. Procedure Right Eye Preparation included 0.25% betadine irrigation. A (32g) needle was used. Injection: 2 mg aflibercept 2 mg/0.05 mL Route: Intravitreal, Site: Eye, Right ND: [id number], Lot: 0, Waste: 0 mL This medication is being administered as part of a group. Left Eye Preparation included 0.25% betadine irrigation. A (32g) needle was used. Injection: 2 mg aflibercept 2 mg/0.05 mL Route: Intravitreal, Site: Eye, Left ND: [id number], Lot: 0, Waste: 0 mL This medication is being administered as part of a group. Post-op Right Eye Post injection exam found visual acuity of at least counting fingers. The patient tolerated the procedure well. There were no complications. The patient received written and verbal post procedure care education. Post injection medications were not given. Left Eye Post injection exam found visual acuity of at least counting fingers. The patient tolerated the procedure well. There were no complications. The patient received written and verbal post procedure care education. Post injection medications were not given. Notes Lot on consent 3.5 mm superotemporally to the limbus us Kim Servin MD OPHTH CLINIC PROCEDURES Final R esult [facility] CLIA# [id number] [address] [place] [address] * OCT, RETINA - OU - BOTH EYES (01/11/2025 11:34 AM CDT) Narrative [facility] - 01/11/2025 12:57 PM CDT RIGHT EYE: Moderate macular edema, Intraretinal cystoid spaces, and intraretinal hyper-reflective foci LEFT EYE:Marked macular edema, Intraretinal cystoid spaces, intraretinal hyper-reflective foci, and disruption of outer-retinal layers Kim Servin MD OPHTH TOMOGRAPHY Final Result Performing Organization Address [place] Co de Phone Number [facility] * (ABNORMAL) HEMOGLOBIN A1C (11/10/2024 2:22 PM AGENCY RECRUITER) HEMOGLOBIN A1C 10.5(H) <5.7 % of total Hgb [facility] Comment: For someone without known diabetes, a hemoglobin A1c value of 6.5% or greater indicates that they may have diabetes and this should be confirmed with a follow-up test. For someone with known diabetes, a value <7% indicates that their diabetes is well controlled and a value greater than or equal to 7% indicates suboptimal control. A1c targets should be individualized based on duration of diabetes, age, comorbid conditions, and other considerations. Currently, no consensus exists regarding use of hemoglobin A1c for diagnosis of diabetes for children. ESTIMATED AVERAGE GLUCOSE (MG/DL) 255 mg/dL [facility] ESTIMATED AVERAGE GLUCOSE (MMOL/L) 14.1 mmol/L [facility] Comment: Test Performed at: [facility] [address] [address] [id number] Luz Lang MD Blood 11/10/2024 2:22 PM AGENCY RECRUITER 11/11/2024 4:34 AM AGENCY RECRUITER Result [facility] Roberta Kennedy NP CHEMISTRY ORDERABLES Final Res ult [facility] [phone] [facility] [id number] Morejon [facility] [place] [id number] * CT ABDOMEN PELVIS WO CONTRAST (08/07/2024 12:39 PM CDT) Anatomical Region Laterality Modality Abdomen Computed Tomogra phy 08/07/2024 12:4 0 PM CDT Impressions 08/07/2024 1:03 PM CDT IMPRESSION: Please see below. Exam: CT ABDOMEN PELVIS WO CONTRAST Date/Time of Exam: 08/07/2024 12:39 PM Reason For Exam: Flank pain, stone disease suspected. Diagnosis: GLORIA (acute kidney injury). Technique: Helical axial images were obtained through the abdomen pelvis without contrast. Study is of limited sensitivity in this regard. Comparison: December 28, 2023. FINDINGS: Examination is artifactually limited due to patient body habitus and prominent streak artifact associated with lumbar fusion hardware. Lung bases are grossly clear. Heart size normal. No acute visceral pathology is detected. Stable single tiny right interpolar renal pelvic calculus. There is mild right renal perinephric stranding without visible obstructing ureteral calculus. No significant pyelocaliectasis. Stable appearance of mild hepatomegaly. Pancreas, gallbladder and adrenals show no acute abnormality. No acute bowel pathology is detected. Appendix normal. No mass or adenopathy. No free fluid or focal inflammatory process. Bladder, prostate and seminal vesicles appear within normal limits. Trace aortoiliac atherosclerosis. No acute osseous finding. Lumbar fusion. Mild anasarca. IMPRESSION: Mild equivocal right renal perinephric stranding without definite visible obstructing ureteral calculus although study is limited due to patient body habitus and streak artifact associated with lumbar fusion. No large ureteral calculus is identified. No significant right-sided pyelocaliectasis. Tiny nonobstructing right renal pelvic calculus. Mild hepatomegaly. Mild anasarca. Narrative Procedure Note Juice Ford DO - 08/07/2024 IMPRESSION: Please see below. Exam: CT ABDOMEN PELVIS WO CONTRAST Date/Time of Exam: 08/07/2024 12:39 PM Reason For Exam: Flank pain, stone disease suspected. Diagnosis: GLORIA (acute kidney injury). Technique: Helical axial images were obtained through the abdomen pelvis without contrast. Study is of limited sensitivity in this regard. Comparison: December 28, 2023. FINDINGS: Examination is artifactually limited due to patient body habitus and prominent streak artifact associated with lumbar fusion hardware. Lung bases are grossly clear. Heart size normal. No acute visceral pathology is detected. Stable single tiny right interpolar renal pelvic calculus. There is mild right renal perinephric stranding without visible obstructing ureteral calculus. No significant pyelocaliectasis. Stable appearance of mild hepatomegaly. Pancreas, gallbladder and adrenals show no acute abnormality. No acute bowel pathology is detected. Appendix normal. No mass or adenopathy. No free fluid or focal inflammatory process. Bladder, prostate and seminal vesicles appear within normal limits. Trace aortoiliac atherosclerosis. No acute osseous finding. Lumbar fusion. Mild anasarca. IMPRESSION: Mild equivocal right renal perinephric stranding without definite visible obstructing ureteral calculus although study is limited due to patient body habitus and streak artifact associated with lumbar fusion. No large ureteral calculus is identified. No significant right-sided pyelocaliectasis. Tiny nonobstructing right renal pelvic calculus. Mild hepatomegaly. Mild anasarca. us Carroll Angelo MD CT ORDERABLES Final Re sult * (ABNORMAL) LIPID PANEL (07/14/2024 4:40 AM CDT) Pathologist [facility] CHOLESTEROL 357(H) <200 mg/dL 07/14/2024 5:49 AM [facility] TRIGLYCERIDE 305(H) <150 mg/dL 07/14/2024 5:49 AM CDT [facility] HDL 40 40 - 59 mg/dL 07/14/2024 5:49 AM CDT [facility] LDL CALCULATED 256(H) <100 mg/dL 07/14/2024 5:49 AM T [facility] NON-HDL CHOLESTEROL 317(H) <130 mg/dL 07/14/2024 5:49 AM [facility] Blood Venipuncture / Unknown 07/14/2024 4:40 AM CDT 07/14/2024 4:59 AM CDT Narrative [facility] - 07/14/2024 5:49 AM CDT TOTAL CHOLESTEROL mg/dL Desirable <200 Borderline high 200-239 High >=240 TRIGLYCERIDES mg/dL Normal <150 Borderline high 150-199 High 200-499 Very high >=500 HDL CHOLESTEROL mg/dL Low <40 Normal 40-59 Desirable >=60 NON HDL CHOLESTEROL mg/dL Optimal <130 Near Optimal 130-159 Borderline High 160-189 Very High >=190 CALCULATED LDL mg/dL LDL <70, OPTIMAL if have Atherosclerotic cardiovascular disease (ASCVD) or intermediate or higher (>7.5%) 10 year risk of ASCVD including most adults with diabetes. LDL <100, Optimal in adult patients with low (<7.5%) 10 year ASCVD risk LDL 100-160, Suboptimal LDL >160, High LDL >190, Very high ATPIII Guidelines Reference Ranges for Lipid Panels (NCEP/AMA) . Juice Bashir NP CHEMISTRY ORDERABLES Final R esult [facility] # [id number] [address] [place] [address] * MICROALBUMIN/CREATININE RATIO, RANDOM UR (07/11/2015 10:53 PM CDT) MICROALBUMIN, URINE 67.8 mg/dL 07/11/2015 11:45 PM [facility] CREATININE, URINE 163.8 40.0 - 278.0 mg/dL 07/11/2015 11:45 PM [facility] Comment: Reference Range varies with fluid intake and diet. MICROALBUMIN/CR EAT RATIO, UR 413.9 mg/g Creatinine 07/11/2015 11:45 PM [facility] Comment: Condition mg/g Creatinine Normal Males <17 Normal Females <25 Microalbuminuria Males 17-299 Microalbuminuria Females 25-299 Overt proteinuria >=300 Urine 07/11/2015 10:5 3 PM CDT 07/11/2015 10:53 PM CDT Jyoti Mckinley Fern [employer] URINE ORDERABLES Final Result [facility] CLIA # [id number] [address] [address] [facility] CLIA # [id number] [address] [address] from Last 3 Months or Most Recently Relevant to Health Maintenance Insurance MEDICARE PART A AND B [place] [employer] [address] [place] RX INFOCROSSING Medicaid RX [employer] PLANS (INTERNAL) [facility] Internal Plans Advance Directives For more information, please contact: [phone] * Full Code (Latest Code Status on File) Date Activated Date Inactivated Comments 12/03/2024 6:22 PM 12/11/2024 3:17 PM * Full Code Date Activated Date Inactivated Comments 07/11/2024 6:17 PM 07/16/2024 2:00 PM Care Teams Meat Counter Clerk Relationship Specialty Start Date End Date Duke Alarcon MD [address] [phone] PCP - General Family Practice 08/10/24
--- OUTSIDE RECORDS SUMMARY | 2025-04-11 23:51 | XMS_ITS | Encounter Summary ---
Author Organization [facility] Address [address] [place] [address] Care Team Providers Care Tourist Cabin Keeper Name Role Phone Karol Banks MD Primary Care Provider +1 [phone] Encounter Details Date Type Department Care Team (Late st Contact Info) Description 07/11/2015 Lab Requisition [facility] Laboratory Services [place] [address] [place] [phone] Jyoti Shirley, SQL REPORT ANALYST [address] [place] [phone] Social History Tobacco Use Types Packs/Day Years Used Date Smoking Tobacco: Former Cigarettes Alcohol Use Standard Drinks/Week Comments No 0 (1 standard drink = 0.6 oz pur e alcohol) Sex and Gender Information Value Date Recorded Sex Assigned at Not on file 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 Gender Identity Not on file Sexual Orientation Not on file Occupation Industry Job Start Date Job End Date Not on file Not on file Not on file Not on file documented as of this encounter Plan of Treatment Not on file documented as of this encounter Procedures Procedure Name Priority Date/Time Associated Diagnosis Comments MICROALBUMIN/CREATININ E RATIO, RANDOM UR Routine 07/11/2015 10:53 PM CDT HEMOGLOBIN A1C Routine 07/11/2015 10:53 PM CDT LIPID PANEL Routine 07/11/2015 10:53 PM CDT COMPREHENSIVE METABOLIC PANEL Routine 07/11/2015 10:53 PM CDT documented in this encounter Results * MICROALBUMIN/CREATININE RATIO, RANDOM UR (07/11/2015 10:53 PM CDT) MICROALBUMIN, URINE 67.8 mg/dL 07/11/2015 11:45 PM CDT [facility] CREATININE, URINE 163.8 40.0 - 278.0 mg/dL 07/11/2015 11:45 PM CDT [facility] Comment: Reference Range varies with fluid intake and diet. MICROALBUMIN/CR EAT RATIO, UR 413.9 mg/g Creatinine 07/11/2015 11:45 PM CDT [facility] Comment: Condition mg/g Creatinine Normal Males <17 Normal Females <25 Microalbuminuria Males 17-299 Microalbuminuria Females 25-299 Overt proteinuria >=300 Urine 07/11/2015 10:5 3 PM CDT 07/11/2015 10:53 PM CDT Jyoti Shirley SQL REPORT ANALYST URINE ORDERABLES Final Result [facility] CLIA # [id number] [address] [place] [address] * (ABNORMAL) LIPID PANEL (07/11/2015 10:53 PM CDT) CHOLESTEROL 204(H) <200 mg/dL 07/11/2015 11:21 PM CDT [facility] TRIGLYCERIDE 276(H) <150 mg/dL 07/11/2015 11:21 PM CDT [facility] HDL 25(L) 40 - 59 mg/dL 07/11/2015 11:21 PM CDT [facility] LDL CALCULATED 124(H) <100 mg/dL 07/11/2015 11:21 PM CDT [facility] NON-HDL CHOLESTEROL 179(H) <130 mg/dL 07/11/2015 11:21 PM CDT [facility] Blood 07/11/2015 10:5 3 PM CDT 07/11/2015 10:53 PM CDT Narrative [facility] - 07/11/2015 11:21 PM CDT TOTAL CHOLESTEROL mg/dL Desirable <200 Borderline high 200-239 High >=240 TRIGLYCERIDES mg/dL Normal <150 Borderline high 150-199 High 200-499 Very high >=500 HDL CHOLESTEROL mg/dL Low <40 Normal 40-59 Desirable >=60 LDL CHOLESTEROL mg/dL Optimal <100 Low risk 100-129 Borderline high 130-159 High 160-189 Very high >=190 NON HDL CHOLESTEROL mg/dL Optimal <130 Near Optimal 130-159 Borderline High 160-189 High 190-219 Very high >=220 Based on AHA/NCEP Guidelines Jyoti Shirley [facility] CHEMISTRY ORDERABLES Final Resu lt Performing Organization Address [facility] de Phone Number [facility] CLIA # [id number] [address] [place] [address] * (ABNORMAL) HEMOGLOBIN A1C (07/11/2015 10:53 PM CDT) HEMOGLOBIN A1C 10.6(H) 4.8 - 5.9 % 07/11/2015 11:16 PM CDT [facility] EST. AVG GLUCOSE, A1C 258 mg/dL 07/11/2015 11:16 PM CDT [facility] Blood 07/11/2015 10:5 3 PM CDT 07/11/2015 10:53 PM CDT Jyotivadim Shirley [facility] CHEMISTRY ORDERABLES Final Resu lt Performing Organization Address [facility]/ZIP Co de Phone Number [facility] CLIA # [id number] [address] [place] [phone] * (ABNORMAL) COMPREHENSIVE METABOLIC PANEL (07/11/2015 10:53 PM CDT) SODIUM 129(L) 136 - 145 mmol/L 07/11/2015 11:21 PM [facility] POTASSIUM 3.6 3.5 - 5.1 mmol/L 07/11/2015 11:21 PM [facility] CHLORIDE 87(L) 98 - 107 mmol/L 07/11/2015 11:21 PM [facility] CO2 25 22 - 29 mmol/L 07/11/2015 11:21 PM [facility] CALCIUM 9.3 8.6 - 10.0 mg/dL 07/11/2015 11:21 PM [facility] BUN 12 6 - 20 mg/dL 07/11/2015 11:21 PM [facility] CREATININE 0.61(L) 0.67 - 1.17 mg/dL 07/11/2015 11:21 PM [facility] GLUCOSE 287(H) 74 - 106 mg/dL 07/11/2015 11:21 PM [facility] TOTAL PROTEIN 8.1 6.6 - 8.7 g/dL 07/11/2015 11:21 PM [facility] ALBUMIN 4.5 3.5 - 5.2 g/dL 07/11/2015 11:21 PM [facility] BILIRUBIN TOTAL 2.7(H) 0.0 - 1.2 mg/dL 07/11/2015 11:21 PM [facility] ALKALINE PHOSPHATASE 93 40 - 129 U/L 07/11/2015 11:21 PM [facility] AST 19 10 - 50 U/L 07/11/2015 11:21 PM [facility] [employer] [facility] ALT 15 10 - 50 U/L 07/11/2015 11:21 PM [facility] [employer] [facility] GFR >60 >=60 mL/min/1.7 3 sq meter 07/11/2015 11:21 PM [facility] [employer] [facility] Comment: eGFR has not been validated for use in the elderly (> 70 years of age), women, patients with serious co-morbid conditions, or persons with extremes of body size or muscle mass and should also be interpreted with caution in patients with acute kidney failure, dialysis dependent patients, patients reporting exceptional dietary intake (e.g. vegetarian diet, high protein diets, creatine supplementation), and patients with severe liver disease. Based on National Kidney Disease Education Program If patient is , please refer to the GFR result. GFR, >60 >=60 mL/min/1.7 3 sq meter 07/11/2015 11:21 PM CDT [facility] [place] ANION GAP 17 12 - 20 mmol/L 07/11/2015 11:21 PM CDT [facility] Blood 07/11/2015 10:5 3 PM CDT 07/11/2015 10:53 PM CDT Jyoti Shirley SQL REPORT ANALYST CHEMISTRY ORDERABLES Final Resu lt [facility] [place] CLIA # [id number] [address] [place] [address] documented in this encounter Visit Diagnoses Not on filedocumented in this encounter Care Teams Tourist Cabin Keeper Relationship Specialty Start Date End Date Karlo Banks MD PCP - General Internal Medicine 10/14/14 01/11/21 documented as of this encounter
--- OUTSIDE RECORDS SUMMARY | 2025-04-11 23:51 | XMS_ITS | Encounter Summary ---
Author Organization [facility] Address [address] [place] [address] Care Team Providers Care Supervisor Forming Department Name Role Phone Duke Alarcon MD Primary Care Provider [phone] Encounter Details Date Type Department Care Team (Late st Contact Info) Description 04/06/2025 External Device Data [place] ABSTRACTION Provider, Abstract NO ADDRESS ON FILE Social History Tobacco Use Types Packs/Day Years Used Date Smoking Tobacco: Every Day Cigarettes Passive Smoke Exposure: Current Smokeless Tobacco: Never Alcohol Use Standard Drinks/Week Comments No 0 (1 standard drink = 0.6 oz pur e alcohol) Feeling Safe Answer Date Recorded Are you in a relationship wi th someone who hurts you emotionally and/or physically? No 01/18/2025 Food Insecurity Answer Date Recorded Patient needs follow up regardin 02/03/2025 Transportation Needs Answer Date Record ed Patient needs follow up regardin 02/03/2025 Housing Stability Answer Date Recorded Social/Environmental Concerns No concerns Utility Needs Answer Date Recorded Patient needs follow up regardin 02/03/2025 Sex and Gender Information Value Date Recorded Sex Assigned at Not on file Legal Sex Male 3:23 AM SECOND SHIFT SUPERVISOR Gender Identity Not on file Sexual Orientation Not on file documented as of this encounter Plan of Treatment Upcoming Encounters Date Type Department Care Team (Late Contact Info) Description 04/12/2025 11:00 AM CDT Office Visit [address] [phone] Duke Alarcon MD [address] [phone] 04/23/2025 10:00 AM CDT Appointment [facility] Interventional Radiology [address] [place] [address] Angélica Ny MD [address] [facility] [address] [place] [address] Tayler Ramírez, COMMISSIONED FIRE OFFICER [address] [place] [address] 05/03/2025 8:40 AM CDT Office Visit [facility] Ophthalmology [place] [address] [place] [address] Kim Servin MD [address] [place] [address] 06/07/2025 9:00 AM CDT Appointment [facility] Echo [address] [place] [address] Lawanda Mendoza, [facility] [address] [place] [address] 07/05/2025 9:40 AM CDT Office Visit [facility] Cardiology [facility] [address] [place] [address] Anne Duong, [facility] [address] [place] [address] 09/27/2025 9:30 AM SECOND SHIFT SUPERVISOR Office Visit [facility] Television Announcer Optometry [facility] [address] [place] [address] Constantin Bales, OD [address] [place] [address] documented as of this encounter Visit Diagnoses Not on filedocumented in this encounter Care Teams Supervisor Forming Department Relationship Specialty Start Date End Date Duke Alarcon MD [address] [facility] [address] [place] [address] PCP - General Family Practice 08/10/24 documented as of this encounter
--- OUTSIDE RECORDS SUMMARY | 2025-04-11 23:51 | XMS_ITS | Encounter Summary ---
Author Organization [facility] Address [address] [place] [address] Care Team Providers Care Shank Paperer Name Role Phone Karlo Banks MD Primary Care Provider [phone] [phone] Encounter Details Date Type Department Care Team (Latest Contact Info) Description 02/07/2004 Outpatient Historical [facility] [address] [place] [phone] [place] Bell MD [address] [place] [address] ASTHMA UNSPECIFIED (Primary Dx) Social History Tobacco Use Types Packs/Day Years Used Date Smoking Tobacco: Never Assessed Sex and Gender Information Value Date Recorded Sex Assigned at Not on file Legal Sex Male 5: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
--- OUTSIDE RECORDS SUMMARY | 2025-04-11 23:51 | XMS_ITS | Encounter Summary ---
Author Organization [facility] Address [address] [place] [address] Care Team Providers Care Gum Machine Operator Name Role Phone Karlo Banks MD Primary Care Provider [phone] [phone] Encounter Details Date Type Department Care Team (Latest Contact Info) Description 06/04/2005 Outpatient Historical [facility] [address] [place] [address] [place] Bell MD [address] [place] [address] MED EXAM NEC-ADMIN PURP (Primary Dx) Social History Tobacco Use Types Packs/Day Years Used Date Smoking Tobacco: Never Assessed Sex and Gender Information Value Date Recorded Sex Assigned at Not on file 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
--- OUTSIDE RECORDS SUMMARY | 2025-04-11 23:51 | XMS_ITS | Encounter Summary ---
Author Organization [facility] Address [address] [place] [address] Care Team Providers Care Fifth Grade Teacher Name Role Phone Karlo Banks MD Primary Care Provider [phone] [phone] Encounter Details Date Type Department Care Team (Latest Contact Info) Description 01/24/2004 Outpatient Historical [facility] [address] [place] [phone] [place] Bell MD [address] [place] [address] ASTHMA UNSPECIFIED (Primary Dx) Social History Tobacco Use Types Packs/Day Years Used Date Smoking Tobacco: Never Assessed Sex and Gender Information Value Date Recorded Sex Assigned at Not on file 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
--- OUTSIDE RECORDS SUMMARY | 2025-04-11 23:51 | XMS_ITS | Encounter Summary ---
Author Organization [facility] Address [address] [place] [address] Care Team Providers Care Glue Line Operator Name Role Phone Karlo Banks MD Primary Care Provider [phone] [phone] Encounter Details Date Type Department Care Team (Latest Contact Info) Description 02/24/2004 Outpatient Historical [facility] [address] [place] [phone] [place] Bell MD [address] [place] [phone] CONJUNCTIVITIS NOS (Primary Dx) Social History Tobacco Use Types Packs/Day Years Used Date Smoking Tobacco: Never Assessed Sex and Gender Information Value Date Recorded Sex Assigned at Not on file Legal Sex Male 5:[address] Gender Identity Not on file Sexual Orientation Not on file documented as of this encounter Plan of Treatment Not on file documented as of this encounter Visit Diagnoses Diagnosis Conjunctivitis unspecified- Primary Conjunctivitis, unspecified documented in this encounter Care Teams Glue Line Operator Relationship Specialty Start Date End Date Karlo Banks MD PCP - General Internal Medicine 10/14/14 01/11/21 documented as of this encounter
--- OUTSIDE RECORDS SUMMARY | 2025-04-11 23:51 | XMS_ITS ---
Author Name Enzo, Clinic Address [address] [place] [address] Phone [phone] Organization [facility] e, NA DOCUMENT DISCLAIMER Multiple document versions may exist, please be sure you review the latest version. The information in the [facility] Continuity of Care Document represents a summary of certain health and medical information. It may not contain the complete medical history for the patient and should be independently verified. The represented time in the document is Eastern Time. 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 Active December 15, 2024 Nephrotic syndrome with unsp ecified morphologic changes N04.9 Active December 15, 2024 Anemia in chronic kidney disease D63.1 Active December 15, 2024 Essential (primary) hypertension I10 Active December 15, 2024 Other stimulant abuse, uncomplicated F15.10 Acti ve December 15, 2024 Dependence on renal dialysis Z99.2 Active December 08, 2024 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 Active Nov ru2024 Non-ST elevation (NSTEMI) myocardial infarction I21.4 Active December 08, 2024 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 with heart failure and with stage 5 chronic kidney disease, or end stage renal disease I13.2 Active Febr ua2024 Nicotine dependence, cigarettes, uncomplicated F17.210 Active December 08, 2024 Hyperlipidemia, unspecified E78.5 Active December 08, 2024 Fluid overload, unspecified E87.70 Active December 08, 2024 Secondary hyperparathyroidism of renal origin N25.81 Active December 08, 2024 Shortness of breath R06.02 Active December 08, 2024 Type 1 diabetes mellitus wit h diabetic chronic kidney disease E10.22 Active December 08, 2024 Abnormality of albumin R77.0 Active Febru maryan 2024 Iron deficiency anemia, unspecified D50.9 Activ e December 08, 2024 Anemia, unspecified D64.9 Active December 08, 2024 Disorder of phosphorus metabolism, unspecified E83.30 Active December 08, 2024 End stage renal disease N18.6 Active Febr uary 2024 Encounter for immunization Z23 Active F ebruary 2024 Encounter for screening for respiratory tuberculosis Z11.1 Active December 08, 2024 Coagulation defect, unspecified D68.9 Active December 08, 2024 Pain, unspecified R52 Active November 152024 Fever, unspecified R50.9 Active December 08, 2024 Anaphylactic shock, unspecified, initial encounter T78 .2XXA Active December 08, 2024 Allergy, unspecified, initial encounter T78.40XA A ctive December 08, 2024 ALLERGIES AND ADVERSE REACTIONS Substance Reaction Severity Status bee venom protein (honey bee) Hives Moderate Active DAVID INHIBITORS Cardiac Arrest Severe Active LISINOPRIL Dyspnea Mild Active ARB-Angiotensin Receptor Antagonist Cardiac Arrest Sev ere Active SOCIAL HISTORY Tobacco Use Status Tobacco Type Heavy tobacco smoker Cigarettes Caregiver Characteristics Need Level ADL Type Relationship of Caregiver Independent N/A N/A Characteristics of Home environment Housing Status Patient Resides With Other Aunt Jesusita and 8 yr ol d son Gender and Sex Information Gender Identity Sexual Orientation Male Decline to answer MEDICATIONS Prescribed Medications for Dialysis Treatments Medication Instructions Dosage Route Start Date End Date Stat us Clonidine HCl PRN-february repeat x1 systolic > 180 or dystolic > 100 0.2 mg Oral January 09, 2025 January 08, 2026 Active Heparin Sodium (Porcine) 1,000 Units/mL Catheter Lock Arterial Post Dialysis, Every Treatment 2000 units Arterial Red Port December 10, 2024 December 09, 2025 Active Heparin Sodium (Porcine) 1,000 Units/mL Catheter Lock Venous Post Dialysis, Every Treatment 2000 units Venous Blue Port December 10, 2024 December 09, 2025 Active Heparin Sodium (Porcine) 1,000 Units/mL Systemic Bolus, Every Treatment, Total treatment minutes 240 7000 units Intravenous - push December 24, 2024 December 23, 2025 Active Iron Sucrose (Venofer) During Dialysis, 3X Week 100 mg Intravenous - push March 25, 2025 April 15, 2025 Active Mircera During Dialysis, Every 4 weeks 75 mcg Intravenous - push April 06, 2025 April 05, 2026 Active Iron Sucrose (Venofer) During Dialysis, 1X Week 50 mg Intravenous - push March 23, 2025 March 22, 2026 Discontinued Iron Sucrose (Venofer) During Dialysis, 3X Week 100 mg Intravenous - push February 23, 2025 March 16, 2025 Discontinued Home Medications Medication Instructions Dosage Route Start Date End Date Status Abilify 5 mg Take by mouth once a day 1 tablet ORAL December 24, 2024 Active amitriptyline 50 mg Take by mouth every night 1 tablet ORAL December 22, 2024 Active amlodipine 10 mg Take by mouth once a day 1 tablet ORAL December 22, 2024 Active aspirin 81 mg Take by mouth once a day 1 tablet ORAL December 24, 2024 Active atorvastatin 80 mg Take by mouth once a day ORAL December 24, 2024 Active benzonatate 100 mg Take by mouth once a day 1 capsule ORAL December 24, 2024 Active bumetanide 1 mg Take by mouth once a day 1 tablet ORAL January 19, 2025 Active bupropion HCl 150 mg Take by mouth once a day 1 1/2 tablet ORAL December 22, 2024 Active carvedilol 25 mg Take by mouth every twelve hours 1 tablet ORAL December 22, 2024 Active clonidine HCl 0.2 mg Take by mouth three times a day 1 tablet ORAL December 29, 2024 Active epinephrine 0.3 mg/0.3 mL INJECTION December 22, 2024 Active gabapentin 100 mg Take by mouth three times a day 1 capsule ORAL December 24, 2024 Active hydralazine 100 mg by mouth three times a day 1 tablet ORAL April 01, 2025 Active insulin lispro 100 unit/mL Inject subcutaneously three times a day 25 unit SUBCUTANEOUS December 24, 2024 Active Lantus Solostar U-100 Insulin 100 unit/mL (3 mL) Inject subcutaneously twice a day 25 SUBCUTANEOUS December 24, 2024 Active lidocaine 4% TOPICAL December 22, 2024 Active ondansetron HCl 4 mg Take by mouth every six hours 1 tablet ORAL December 24, 2024 Active spironolactone 50 mg Take by mouth once a day 1 tablet ORAL January 19, 2025 Active varenicline tartrate 0.5 mg Take as directed ORAL December 24, 2024 Active VITAL SIGNS Post-Treatment Vital Signs Vital Sign Value Date / Time Blood Pressure-sitting 252/136 mmHg April 10, 2025 01:01 PM Blood Pressure-standing 217/160 mmHg April 10, 2025 01:01 PM Heart Rate 100 beats per minute April 10 01:01 PM Respiratory Rate 16 breaths per minute April 10, 2025 01:01 PM Temperature 97.8 deg. F April 10, 2025 01 :01 PM Weight Vital Sign Value Date / Time Estimated Dry Weight 89.1 kg April 10 11:59 PM Pre-Dialysis 95.40 kg April 10, 2025 01 :01 PM Post-Dialysis 94.40 kg April 10, 2025 01 :01 PM Other Other Value Date / Time Height 182.88 cm January 01, 2025 1 2:00 AM Body Mass Index 26.70 kg/m2 March 26, 2025 12 :43 PM HEALTH CONCERNS Tuberculosis Testing TST Date Administered TST Date Read TST Result 12/15/2024 12/17/2024 Negative (<5) mm LAB RESULTS Hematology Result Type Result Value Relevant Referen ce Range Interpretation Date Transferrin Sat. (Calc) 15 % 20 - 55 % Low December 15, 2024 Platelets 542 1000/mcL 130 - 400 1000/mcL High Eliel h 2024 WBC (No Diff) 9.99 1000/mcL 4.80 - 10.80 1000/mcL - December 15, 2024 Neutrophils 72.1 % 40.0 - 75.0 % - December 15, 2024 UIBC/TIBC 225 mcg/dL 155 - 355 mcg/dL - December TIBC (Calc) 266 mcg/dL 185 - 515 mcg/dL - December Ferritin 108 ng/mL 22 - 322 ng/mL - December 15, 2024 Folate, Serum 6.0 ng/mL No Reference Ran ge Provided - December 15, 2024 Platelets 459 1000/mcL 130 - 400 1000/mcL High Eliel h 2024 WBC (No Diff) 13.35 1000/mcL 4.80 - 10.80 1000/mcL High December 17, 2024 TIBC (Calc) 246 mcg/dL 185 - 515 mcg/dL - December UIBC/TIBC 209 mcg/dL 155 - 355 mcg/dL - December Transferrin Sat. (Calc) 15 % 20 - 55 % Low December 17, 2024 Neutrophils 78.7 % 40.0 - 75.0 % High December 17, 2024 Ferritin 89 ng/mL 22 - 322 ng/mL - December 17, 2024 Folate, Serum 5.2 ng/mL No Reference Ran ge Provided - December 17, 2024 Platelets 295 1000/mcL 130 - 400 1000/mcL - Apri l 2024 MCH 28.9 pg 27.0 - 31.0 pg - January 14, 2025 MCHC 32.6 g/dL 30.0 - 36.0 g/dL - January RDW 15.2 % 11.5 - 14.5 % High January 14, 025 Hemoglobin x 3 29.7 % 42.0 - 54.0 % Low January Neutrophils 76.3 % 40.0 - 75.0 % High January 14, 2025 Lymphocytes 15.6 % 19.0 - 48.0 % Low January 14, 2025 Monocytes 5.3 % 3.0 - 10.0 % - January 14 Eosinophil 0.9 % 0.0 - 7.0 % - January 14 UIBC/TIBC 166 mcg/dL 155 - 355 mcg/dL - January Iron 51 mcg/dL 45 - 160 mcg/dL - January 14, 2025 Transferrin Sat. (Calc) 24 % 20 - 55 % - January 14, 2025 TIBC (Calc) 217 mcg/dL 185 - 515 mcg/dL - January KALLIE 1.5 % 0.0 - 4.0 % - January 14 WBC (No Diff) 12.39 1000/mcL 4.80 - 10.80 1000/mcL High January 14, 2025 Basophils 0.5 % 0.0 - 1.5 % - January 14 Ferritin 386 ng/mL 22 - 322 ng/mL High January 21, 2025 Hemoglobin x 3 28.5 % 42.0 - 54.0 % Low January 122024 Hemoglobin x 3 27.9 % 42.0 - 54.0 % Low January 122024 Hemoglobin x 3 31.2 % 42.0 - 54.0 % Low January 132024 Hemoglobin x 3 33.3 % 42.0 - 54.0 % Low February 11, 2025 WBC (No Diff) 11.95 1000/mcL 4.80 - 10.80 1000/mcL High February 18, 2025 MCHC 33.1 g/dL 30.0 - 36.0 g/dL - February 18, 2025 MCH 30.0 pg 27.0 - 31.0 pg - February 18 25 RDW 14.8 % 11.5 - 14.5 % High February 18 Transferrin Sat. (Calc) 17 % 20 - 55 % Low February 18, 2025 TIBC (Calc) 228 mcg/dL 185 - 515 mcg/dL - February 18, 2025 UIBC/TIBC 190 mcg/dL 155 - 355 mcg/dL - February 18, 2025 Iron 38 mcg/dL 45 - 160 mcg/dL Low February 18, Platelets 300 1000/mcL 130 - 400 1000/mcL - February 18, 2025 Hemoglobin x 3 35.1 % 42.0 - 54.0 % Low February 18, 2025 Lymphocytes 20.6 % 19.0 - 48.0 % - February 18 Neutrophils 69.2 % 40.0 - 75.0 % - February 18 KALLIE 1.8 % 0.0 - 4.0 % - February 18, 2025 Basophils 0.6 % 0.0 - 1.5 % - February 18, 2025 Eosinophil 2.2 % 0.0 - 7.0 % - February 18, 2025 Monocytes 5.7 % 3.0 - 10.0 % - February 18, 2025 Ferritin 569 ng/mL 22 - 322 ng/mL High February 18 Hemoglobin x 3 31.2 % 42.0 - 54.0 % Low February 25, 2025 Hemoglobin x 3 30.3 % 42.0 - 54.0 % Low March 04, 2025 Hemoglobin x 3 35.4 % 42.0 - 54.0 % Low March 11, 2025 TIBC (Calc) 218 mcg/dL 185 - 515 mcg/dL - March Transferrin Sat. (Calc) 18 % 20 - 55 % Low March 18, 2025 Iron 40 mcg/dL 45 - 160 mcg/dL Low March 18, 2025 UIBC/TIBC 178 mcg/dL 155 - 355 mcg/dL - March 18, 2025 Neutrophils 67.5 % 40.0 - 75.0 % - March 18, 025 Monocytes 6.0 % 3.0 - 10.0 % - March 18 Lymphocytes 21.9 % 19.0 - 48.0 % - March 18 Basophils 0.4 % 0.0 - 1.5 % - March 18, 2025 Eosinophil 1.7 % 0.0 - 7.0 % - March 18, 2025 Ferritin 510 ng/mL 22 - 322 ng/mL High March 18 HCT 34.0 % 42.0 - 52.0 % Low March 18 MCHC 32.8 g/dL 30.0 - 36.0 g/dL - March 18, 2025 MCH 31.2 pg 27.0 - 31.0 pg High March 18 HGB 11.2 g/dL 14.0 - 18.0 g/dL Low March 18, 2025 RDW 14.2 % 11.5 - 14.5 % - March 18 Hemoglobin x 3 33.6 % 42.0 - 54.0 % Low March KALLIE 2.4 % 0.0 - 4.0 % - March 18, 2025 RBC 3.58 mill/mcL 4.70 - 6.10 mill/mcL Low March 18, 2025 WBC (No Diff) 10.17 1000/mcL 4.80 - 10.80 1000/mcL - March 18, 2025 Platelets 286 1000/mcL 130 - 400 1000/mcL - March 18, 2025 HGB 10.9 g/dL 14.0 - 18.0 g/dL Low March 25, 2025 Hemoglobin x 3 32.7 % 42.0 - 54.0 % Low March Ferritin 625 ng/mL 22 - 322 ng/mL High March 25 HGB 11.0 g/dL 14.0 - 18.0 g/dL Low April 01, 2025 Hemoglobin x 3 33 % 42.0 - 54.0 % Low March Hemoglobin x 3 31.8 % 42.0 - 54.0 % Low March HGB 10.6 g/dL 14.0 - 18.0 g/dL Low April 08, 2025 Metabolic/Renal Result Type Result Value Relevant Reference Range Interpre tation Date Hemoglobin A1c 8.4 % 4.8 - 5.9 % High December 15, 2024 Vitamin B12 1967 pg/mL 211 - 911 pg/mL High December Hemoglobin A1c 8.5 % 4.8 - 5.9 % High December 17, 2024 URR, Calc 65 % 65 - 80 % - January 14, 2025 BUN, Post 8 mg/dL 6 - 19 mg/dL - January 14 Bicarbonate 29 mEq/L 22 - 29 mEq/L - January 14, 2025 Chloride 95 mEq/L 96 - 108 mEq/L Low January 14, 2025 Potassium 4.4 mEq/L 3.5 - 5.1 mEq/L - January 14, 2025 Sodium 134 mEq/L 136 - 145 mEq/L Low January 14, 2025 BUN/Creat Ratio 4.5 10.0 - 20.0 Low January Creatinine, Serum 5.14 mg/dL 0.60 - 1.30 mg/dL High January 14, 2025 BUN 23 mg/dL 6 - 19 mg/dL High January 14 URR, Calc 60 % 65 - 80 % Low February 02, 2025 BUN, Post 14 mg/dL 6 - 19 mg/dL - February 02 BUN 35 mg/dL 6 - 19 mg/dL High February 02 BUN, Post 8 mg/dL 6 - 19 mg/dL - February 09 URR, Calc 71 % 65 - 80 % - February 09, 2025 BUN 28 mg/dL 6 - 19 mg/dL High February 09 URR, Calc 72 % 65 - 80 % - February 18, 2025 BUN, Post 7 mg/dL 6 - 19 mg/dL - February 18, 2025 Chloride 98 mEq/L 96 - 108 mEq/L - February 18 Potassium 5.1 mEq/L 3.5 - 5.1 mEq/L - February 18 Sodium 132 mEq/L 136 - 145 mEq/L Low February 18 Bicarbonate 25 mEq/L 22 - 29 mEq/L - February 18 BUN/Creat Ratio 4.5 10.0 - 20.0 Low February 18, 2025 Creatinine, Serum 5.61 mg/dL 0.60 - 1.30 mg/dL High February 18, 2025 BUN 25 mg/dL 6 - 19 mg/dL High February 18, 2025 URR, Calc 67 % 65 - 80 % - March 18, 2025 Bicarbonate 22 mEq/L 22 - 29 mEq/L - March 18 Potassium 4.4 mEq/L 3.5 - 5.1 mEq/L - March 18, 2025 Chloride 100 mEq/L 96 - 108 mEq/L - March 18, 025 BUN/Creat Ratio 4.2 10.0 - 20.0 Low March 18, 2025 Sodium 135 mEq/L 136 - 145 mEq/L Low March 18, 2025 BUN 24 mg/dL 6 - 19 mg/dL High March 18 5 Creatinine, Serum 5.74 mg/dL 0.60 - 1.30 mg/dL High March 18, 2025 Hemoglobin A1c 8.3 % 4.8 - 5.9 % High March 18, 2025 BUN, Post 8 mg/dL 6 - 19 mg/dL - March 18 BUN, Post 10 mg/dL 6 - 19 mg/dL - April 01 BUN 32 mg/dL 6 - 19 mg/dL High April 01 URR, Calc 69 % 65 - 80 % - April 01, 2025 HD Adequacy Result Type Result Value Relevant Referen ce Range Interpretation Date Krt/V 0.00 No Reference Ran ge Provided - December 17, 2024 Krt/V 0.00 No Reference Ran ge Provided - December 29, 2024 wstdKt/V, residual 0.0 No Reference Range Provided - January 14, 2025 spKt/V ([place] II) 1.24 No Referen ce Range Provided - January 14, 2025 eKt/V ([place]) 1.08 No Reference Range Provided - January 14, 2025 Krt/V 0.00 No Reference Ran ge Provided - January 14, 2025 wstdKt/V without residual 2.2 No Reference Range Provided - January 14, 2025 wstdKt/V 2.2 No Reference Ran ge Provided - January 14, 2025 spKt/V Gotch 1.24 No Reference Ran ge Provided - January 14, 2025 spKt/V ([place] II) 1.09 No Referen ce Range Provided - February 02, 2025 wstdKt/V without residual 2.1 No Reference Range Provided - February 02, 2025 wstdKt/V 2.1 No Reference Ran ge Provided - February 02, 2025 Krt/V 0.00 No Reference Ran ge Provided - February 02, 2025 eKt/V ([place]) 0.96 No Reference Range Provided - February 02, 2025 spKt/V Gotch 1.08 No Reference Ran ge Provided - February 02, 2025 wstdKt/V, residual 0.0 No Reference Range Provided - February 02, 2025 [facility] No Reference Range Provided - February 09, 2025 spKt/V ([place] II) 1.42 No Referen ce Range Provided - February 09, 2025 wstdKt/V, residual 0.0 No Reference Range Provided - February 18, 2025 Krt/V 0.00 No Reference Ran ge Provided - February 18, 2025 eKt/V ([facility]) 1.33 No Reference Range Provided - February 18, 2025 wstdKt/V without residual 2.4 No Reference Range Provided - February 18, 2025 wstdKt/V 2.4 No Reference Ran ge Provided - February 18, 2025 spKt/V ([place] II) 1.52 No Referen ce Range Provided - February 18, 2025 spKt/V Gotch 1.55 No Reference Ran ge Provided - February 18, 2025 spKt/V ([place] II) 1.27 No Referen ce Range Provided - March 18, 2025 Krt/V 0.00 No Reference Ran ge Provided - March 18, 2025 eKt/V ([facility]) 1.11 No Reference Range Provided - March 18, 2025 wstdKt/V 2.2 No Reference Ran ge Provided - March 18, 2025 wstdKt/V without residual 2.2 No Reference Range Provided - March 18, 2025 spKt/V Gotch 1.27 No Reference Ran ge Provided - March 18, 2025 wstdKt/V, residual 0.0 No Reference Range Provided - March 18, 2025 wstdKt/V without residual 2.3 No Reference Range Provided - April 01, 2025 spKt/V Gotch 1.38 No Reference Ran ge Provided - April 01, 2025 eKt/V ([facility]) 1.20 No Reference Range Provided - April 01, 2025 wstdKt/V 2.3 No Reference Ran ge Provided - April 01, 2025 spKt/V ([facility]) 1.37 No Referen ce Range Provided - April 01, 2025 wstdKt/V, residual 0.0 No Reference Range Provided - April 01, 2025 Krt/V 0.00 No Reference Ran ge Provided - April 01, 2025 Bone/Mineral Result Type Result Value Relevant Referen ce Range Interpretation Date Vitamin D 25 Hydroxy 10.4 ng/mL 30.0 - 100.0 ng/mL Low December 15, 2024 PTH-Intact, Plasma 148 pg/mL 16 - 80 pg/mL High Dec Magnesium 2.0 mg/dL 1.6 - 2.6 mg/dL - December 15, 2024 Magnesium 1.9 mg/dL 1.6 - 2.6 mg/dL - December 17, 2024 Vitamin D 25 Hydroxy 11.3 ng/mL 30.0 - 100.0 ng/mL Low December 17, 2024 PTH-Intact, Plasma 198 pg/mL 16 - 80 pg/mL High Dec Calcium, Total 7.7 mg/dL 8.4 - 10.2 mg/dL Low Apri l 2024 Corrected Ca x P Product 46 0 - 54 - January 14, 2025 Ca x P Product 39 0 - 54 - January 14, 2025 Phosphorus 5.1 mg/dL 2.6 - 4.5 mg/dL High January 14, 2025 Corrected Ca x P Product 69 0 - 54 High February 18, 2025 Ca x P Product 61 0 - 54 High February 18, 25 Phosphorus 7.6 mg/dL 2.6 - 4.5 mg/dL High February 18 Calcium, Total 8.0 mg/dL 8.4 - 10.2 mg/dL Low February 18, 2025 Calcium, Total 8.1 mg/dL 8.4 - 10.2 mg/dL Low March 18, 2025 Magnesium 2.2 mg/dL 1.6 - 2.6 mg/dL - March 18, 2025 Corrected Ca x P Product 55 0 - 54 High March 18, 2025 Ca x P Product 49 0 - 54 - March 18, 025 Alkaline Phosphatase 64 U/L 40 - 129 U/L - 2024 Phosphorus 6.0 mg/dL 2.6 - 4.5 mg/dL High March 18, 2025 PTH-Intact, Plasma 161 pg/mL 16 - 80 pg/mL High Yakov e 2024 Liver/Nutrition Result Type Result Value Relevant Reference Range Interpre tation Date A/G Ratio 0.8 1.0 - 2.0 Low January 14, 2025 Globulin (Calc) 3.0 g/dL 2.0 - 4.0 g/dL - January 14, 2025 Albumin (BCG) 2.3 g/dL 3.5 - 5.2 g/dL Low January Total Protein 5.3 g/dL 6.0 - 8.5 g/dL Low January Glucose 323 mg/dL 70 - 100 mg/dL High January 14, 2025 eNPCR 0.44 No Reference Ran ge Provided - January 14, 2025 eNPCR 0.50 No Reference Ran ge Provided - February 02, 2025 Glucose 172 mg/dL 70 - 100 mg/dL High February 18 A/G Ratio 0.9 1.0 - 2.0 Low February 18, 2025 eNPCR 0.51 No Reference Ran ge Provided - February 18, 2025 Globulin (Calc) 2.9 g/dL 2.0 - 4.0 g/dL - February Albumin (BCG) 2.6 g/dL 3.5 - 5.2 g/dL Low February 18, 2025 Total Protein 5.5 g/dL 6.0 - 8.5 g/dL Low February 18, 2025 Glucose 189 mg/dL 70 - 100 mg/dL High March 18, Globulin (Calc) 3.1 g/dL 2.0 - 4.0 g/dL - March 18, 2025 A/G Ratio 0.9 1.0 - 2.0 Low March 18, 2025 Total Protein 5.9 g/dL 6.0 - 8.5 g/dL Low March Albumin (BCG) 2.8 g/dL 3.5 - 5.2 g/dL Low March eNPCR 0.46 No Reference Ran ge Provided - March 18, 2025 eNPCR 0.58 No Reference Ran ge Provided - April 01, 2025 Immunochemistry Result Type Result Value Relevant Reference Range Interpre tation Date HCV s/co ratio 0.32 0.00 - 0.79 - December 15, 2024 HCV s/co ratio 0.19 0.00 - 0.79 - December 17, 2024 Trace Elements Result Type Result Value Relevant Reference Range Interpre tation Date Aluminum < 5 mcg/L 0 - 10 mcg/L - December 15 25 Aluminum 9 mcg/L 0 - 10 mcg/L - December 17 Infectious Diseases Result Type Result Value Relevant Referen ce Range Interpretation Date Hep B core Ab Total (anti-HBc) Negative No Reference Range Provided - December 15, 2024 Hep B Surface Ag (HBsAg) Negative No Reference Range Provided - December 17, 2024 HCV Ab (anti-HCV) Nonreactive No Reference R elvis Provided - December 17, 2024 Hep B Surface Ab (anti-HBs) 13 mIU/mL No Reference Range Provided - December 17, 2024 DIALYSIS PRESCRIPTION Conventional Hemodialysis Data Element Value Order Date/Time April 10, 2025 Frequency 3X Week Treatment Days TueThuSat Dialyzer [id number] Optiflux Treatment Time (Total Minutes) 240 min Blood Flow Rate (mL/min) 450 mL/min Dialysate Flow Rate Autoflow 2.0 Estimated Dry Weight 89.1 kg Dialysate Concentrate 2.0 K, 2.5 Ca, 1.0 Mg, 100 Dextrose (G2251) Sodium (mEq/L) 138 mEq/L Bicarb Machine Setting (mEq/L) 36 mEq/L Dialysis Access Primary - Hemodialys is-AV Fistula-Standard, Right Upper Arm, Brachial Artery to Cephalic Vein Access Placed on January 18, 2025 Secondary - Hemodialysis-CV Catheter-Tunneled, Chest, Right Jugular Access Placed on December 04, 2024 Arterial Needle Size 16g1 Venous Needle Size 16g1 TRANSPLANT WAITLIST STATUS No Information on Transplant Waitlist Status ADVANCE DIRECTIVES Directive Description Ordered By Effective Date Resuscitation status Do Not Resuscitate (DNR) Angélica Ny Feb 02, 2025 DIALYSIS TREATMENTS Conventional Hemodialysis Date Pre-Treatment Vitals Post-Treatment Brooke ls Duration (hr) BFR (mL/min) Dialysate Dialyzer Dialysis Access Meds Admin April 06, 2025 Weight 87.80 kg Weight 87.70 kg 03:59:00 310 2.0 K, 2.5 Ca, 1.0 Mg, 100 Dextrose (G2251) 180nre Optifl ux Blood Pressure-sitting 137/101 mmHg Blood Pressure-sit ting 194/96 mmHg Blood Pressure-standing 147/93 mmHg Blood Pressure-st anding 158/86 mmHg Heart Rate 103 beats per minute Heart Rate 99 beats per minute Respiratory Rate 16 breaths per minute Respiratory Rate 18 breaths per minute Temperature 97.4 deg. F Temperature 98.2 deg. F April 08, 2025 Weight 91.90 kg Weight 87.90 kg 03:49:00 410 2.0 K, 2.5 Ca, 1.0 Mg, 100 Dextrose (G2251) 180nre Optiflux - Clonidine HCl; 0.2mg,Oral Heparin Sodium (Porcine) 1,000 Units/mL Catheter Lock Arterial; 2000units,Arterial [place] Heparin Sodium (Porcine) 1,000 Units/mL Catheter Lock Venous; 2000units,Venous [place] Heparin Sodium (Porcine) 1,000 Units/mL Systemic; 7000units,Intravenous - push Iron Sucrose (Venofer); 100mg,Intravenous - push Blood Pressure-sitting 226/189 mmHg Blood Pressure-sit ting 174/92 mmHg Blood Pressure-standing 226/135 mmHg Blood Pressure-st anding 162/87 mmHg Heart Rate 108 beats per minute Heart Rate 92 beats per minute Respiratory Rate 16 breaths per minute Respiratory Rate 18 breaths per minute Temperature 97.6 deg. F Temperature 97.8 deg. F April 10, 2025 Weight 95.40 kg Weight 94.40 kg 01:28:00 300 2.0 K, 2.5 Ca, 1.0 Mg, 100 Dextrose (G2251) 180nre Optiflux - Clonidine HCl; 0.2mg,Oral Heparin Sodium (Porcine) 1,000 Units/mL Catheter Lock Arterial; 2000units,Arterial [place] Heparin Sodium (Porcine) 1,000 Units/mL Catheter Lock Venous; 2000units,Venous [place] Heparin Sodium (Porcine) 1,000 Units/mL Systemic; 7000units,Intravenous - push Iron Sucrose (Venofer); 100mg,Intravenous - push Blood Pressure-sitting 224/126 mmHg Blood Pressure-sit ting 252/136 mmHg Heart Rate 104 beats per minute Blood Pressure-standing 217/160 mmHg Respiratory Rate 16 breaths per minute Heart Rate 100 beats per minute Temperature 98.7 deg. F Respiratory Rate 16 breaths per minute - - Temperature 97.8 deg. F
--- OUTSIDE RECORDS SUMMARY | 2025-04-11 23:51 | XMS_ITS | Encounter Summary ---
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 Interventional Radiology [address] [place] [address] Angélica Ny MD [address] [place] [address] Tayler Ramírez, [facility] [address] [place] [address] 05/03/2025 8:40 AM CDT Office Visit [facility] Ophthalmology [place] [address] [place] [address] Kim Servin MD [address] [place] [address] 06/07/2025 9:00 AM CDT Appointment [facility] Echo [address] [place] [address] Lawanda Mendoza, [facility] [address] [place] [address] 07/05/2025 9:40 AM CDT Office Visit [facility] Cardiology [facility] [address] [place] [address] Anne Duong, [facility] [address] [place] [address] 09/27/2025 9:30 AM COLLAR TACKER Office Visit [facility] Bond Underwriter Optometry [facility] [address] [place] [address] Constantin Bales, OD [address] [place] [address] documented as of this encounter Visit Diagnoses Not on filedocumented in this encounter Care Teams Nonprofit Director Relationship Specialty Start Date End Date Duke Alarcon MD [address] [facility] [address] [place] [address] PCP - General Family Practice 08/10/24 documented as of this encounter
--- OUTSIDE RECORDS SUMMARY | 2025-04-11 23:51 | XMS_ITS | Clinical Summary ---
Author Organization [facility] Address [address] [facility] [address] [place] [address] Phone Care Team Providers Care Shipping Processor Name Role Phone Unavailable Primary Care Provider Unavailabl e Allergies Active Allergy Reactions Criticality Noted Date Comments Venom-Honey Bee Rash,Swelling Low 10/14/2014 Medications insulin glargine (LANTUS) 100 unit/mL Solution Use 20 units at bedtime DISPENSE FROM ER REMAINING PEN 1 mL 0 5 Active multivitamin (DAILY-RAMÓN) tablet Take 1 Tablet by mouth daily. Active ascorbic acid (VITAMIN C) 100 mg Tablet, Chewable Take 100 mg by mouth. Active niacin (NIACOR) 250 mg tablet Take 250 mg by mouth daily. Active sulfacetamide (BLEPH-10) 10 % solution Administer 1 Drop in left eye every 2 hours. 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 Gender Identity Not on file Sexual Orientation Not on file Occupation Industry Job Start Date Job End Date Not on file Not on file Not on file Not on file Last Filed Vital Signs Vital Sign Reading Time Taken Comments Blood Pressure 165/94 01/12/2021 12:41 PM CDT Pulse 93 01/12/2021 12:41 PM CDT Temperature 36.5 C (97.7 F) 01/12/2021 12:41 PM CDT Respiratory Rate 17 01/12/2021 12:41 PM CDT Oxygen Saturation 99% 01/12/2021 12:41 PM CDT Inhaled Oxygen Concentration - - Weight 115.7 kg (255 lb) 01/12/2021 12:41 PM CDT Height 182.9 cm (6') 01/12/2021 12:41 PM CDT Body Mass Index 34.58 01/12/2021 12:41 PM CDT Plan of Treatment Health Maintenance Due Date Last Done Comments DTAP/TDAP/TD VACCINES (1 - Tdap) 2009 HEPATITIS B VACCINES (1 of 3 - 19+ 3-dose series) 2009 INFLUENZA VACCINE (#1) 2024 HPV VACCINES Aged Out No longer eligi ble based on patient's age to complete this topic
[2025-04-11 23:52] VITALS: BP 160/98; PULSE 78; O2SAT 98
[2025-04-11 23:54] VITALS: BP 160/98; PULSE 77; O2SAT 99
[2025-04-11 23:56] VITALS: BP 160/98; PULSE 78; O2SAT 99
[2025-04-11 23:58] VITALS: BP 160/98; PULSE 78; O2SAT 99
[2025-04-12] VITALS (392 sets, daily range): BP systolic 110–205; BP diastolic 60–119; PULSE 74–117; RESP 0–46; TEMP 36.6–37.7; O2SAT 86–100; BMI 28.1
--- NOTE | 2025-04-12 00:14 | PC.NURSE ---
Patient arrived via EMS at a direct admit to ICU 12 at 2337. Patient alert and oriented x 4. Provider notified of patients arrival.
--- NOTE | 2025-04-12 01:50 | PM.HP ---
Providers/Chief Complaint Admitting Physician: Henok Santacruz MD Primary Care Provider: LAWANDA Garcia Chief Complaint: Hypertensive Crisis History of Present Illness Hunter San is a 34 year old male referred from [facility] with hypertensive urgency. He was on labetalol drip but no other meds. Patient states that he has been taking his medications at home and has not missed any. He states he also has not missed any dialysis. Patient was thought to be in volume overload and would need dialysis as well as ICU care which was not available at [facility]. Patient has had a headache which she describes as 4/10 currently and improved from this morning. He had nausea and vomiting dark red poop but not sure if it was blood. He states it was pretty stinky. He has urine more dark yellow than usual. He reports his urine output about 800 cc a day now previously up to 5 L Patient has a right arm fistula that is maturing but still has a dialysis port in his chest Review of Systems Narrative: General no fevers chills Cardiovascular no chest pain or palpitations. States his blood pressure was high and they recently increased his hydralazine Respiratory no shortness of breath cough wheezing GI positive for nausea vomiting diarrhea with maroon stool positive for concentrated urine more dark yellow than usual states he still makes urine about 700 cc a day but is dropping off Medications/Allergies Home Medications ?Medication ?Instructions ?Recorded ?Confirmed ?Last Taken ?Type Intraoperative Neuromonitoring #1 ea 08/22/22 12/13/24 Unknown Rx insulin syringe-needle U-100 1 mL #100 ea 06/27/23 12/13/24 Unknown Rx 31 gauge x 5/16 (BD Insulin Syringe Ultra-Fine) pen needle, diabetic 32 gauge x #100 ea 06/27/23 12/13/24 Unknown Rx 1/4 (BD Ultra-Fine Micro Pen Needle) amlodipine 10 mg tablet 10 mg PO QAM 09/16/23 12/13/24 11/05/24 History blood sugar diagnostic (True #100 ea 10/04/23 12/13/24 Unknown Rx Metrix Glucose Test Strip) blood-glucose meter (True Metrix #1 ea 10/04/23 12/13/24 Unknown Rx Air Glucose Meter kit) lancets 31 gauge #100 ea 10/04/23 12/13/24 Unknown Rx blood-glucose sensor ([employer] G7 #1 ea 10/21/23 12/13/24 Unknown History Sensor device) insulin lispro 100 unit/mL 10 unit SUBCUT TID 07/24/24 12/13/24 11/05/24 History subcutaneous pen (Humalog KwikPen (U-100) Insulin) amitriptyline 50 mg tablet 50 mg PO BEDTIME 11/06/24 12/13/24 11/05/24 History bupropion HCl 150 mg 24 hr tablet, 150 mg PO DAILY 11/06/24 12/13/24 11/05/24 History extended release carvedilol 25 mg tablet 25 mg PO Q12H 11/06/24 12/13/24 11/05/24 History clonidine HCl 0.1 mg tablet See Rx Instructions .Route .COMPLEX 11/06/24 12/13/24 Unknown History epinephrine 0.3 mg/0.3 mL See Rx Instructions .Route .COMPLEX 11/06/24 12/13/24 Unknown History injection, auto-injector insulin glargine 100 unit/mL (3 100 unit SUBCUT BID 11/06/24 12/13/24 11/05/24 History mL) subcutaneous pen (Lantus Solostar U-100 Insulin) gabapentin 300 mg capsule 300 mg PO BID 02/11/25 02/11/25 Unknown History Allergies Allergy/AdvReac Type Severity Reaction Status Date / Time bee venom protein (honey bee) Allergy Unknown Verified 02/11/25 10:26 lisinopril Allergy Unknown Verified 02/11/25 10:26 PFSH Acute PFSH: Medical History (Updated 04/12/25 @ 02:01 by Henok Santacruz MD) End stage renal disease on dialysis due to type 1 diabetes mellitus Chronic back pain Type 1 diabetes End stage renal disease on dialysis Opiate dependence Other stimulant abuse, uncomplicated Waking at night short of breath Snoring Hypersomnia Insomnia Noncompliance w/medication treatment due to intermit use of medication Schizophrenia Methamphetamine abuse Uncontrolled hypertension Family History Other CAD (coronary artery disease) Hypertension Stroke Social History Smoking and tobacco/nicotine status: current every day tobacco/nicotine user Alcohol intake: former Substance/Drug Use: former Date of last use: Amphetamines more than 62 days ago Caregiver/support person: Yes Lives independently: Yes Household members: other Current occupation: [employer] Vitals/I&O/Wt Last Vital Signs Temp 99.9 F H 04/12/25 00:16 Pulse 79 04/12/25 01:12 BP 157/93 04/12/25 01:12 Pulse Ox 97 04/12/25 01:12 O2 Del Method Room Air 04/11/25 23:50 Weight last 48 hrs Weight 94 kg Physical Exam Narrative: General well-developed well-nourished male in no acute cardio pulmonary distress Right neck tunneled catheter noted CV regular rate and rhythm Lungs clear to auscultation bilaterally Abdomen positive bowel tones soft nontender Calves no tenderness cords pretrip edema Right arm has a bruit and thrill Skin warm and dry Mentation alert and oriented x 3 pleasant A&P Assessment and plan (1) Hypertensive urgency: Continue with labetalol drip and hydralazine IV. Start back amlodipine, clonidine, Coreg. Will add hydralazine oral to his meds but he states he was taking that at home just does not know the dose (2) Chronic back pain: Patient reports he had a slipped disc that was worsening and now has been fused back by Dr. Alba. Patient states he is not on chronic pain meds (3) End stage renal disease on dialysis due to type 1 diabetes mellitus: 1600-calorie dialysis diet carb controlled. Continue dialysis (4) Type 1 diabetes: Resume home Lantus 20 units twice a day. Med list shows 100 units twice a day but he states that strong PDMP PDMP Reviewed: Not Reviewed Attestations Medical Necessity Statement*: Patient is admitted to the hospital with hypertensive urgency needing dialysis. Anticipate that he will be in the hospital greater than 2 midnight Coding Level of Care Code Acute Code for [facility] Fwd Diagnoses Hypertensive urgency I16.0 Chronic back pain M54.9; G89.29 End stage renal disease on dialysis due to type 1 diabetes mellitus E10.22; N18.6; Z99.2 Type 1 diabetes E10.9 Time Spent (min) 70
[2025-04-12] MEDS: heparin 5,000 unit/mL INJ 1 mL 5000 UNIT SUBCUT ×2 (02:03→12:20)
[2025-04-12] MEDS: oxyCODONE 5 mg IR Tab/Cap PO ×3 (02:08→14:13)
[2025-04-12] MEDS: diphenhydrAMINE 50 mg/mL SDV 1mL 25 MG IVP ×2 (09:00→15:20)
--- NOTE | 2025-04-12 09:17 | PC.PHAR ---
Pt has current medication list from [facility].
[2025-04-12 09:44] LABS: Hematocrit 25.3 % (37-53); Hemoglobin 8.40 g/dL (11.27-16.99); Mean Corpuscular HGB Conc 33.2 g/dL (30-55); Mean Corpuscular Hemoglobin 32.1 pg (27-33); Mean Corpuscular Volume 96.6 fl (82-101); Nucleated Red Blood Cells % 0 %; Platelet Count 182 10^3/cmm (157-399); Red Blood Count 2.62 10^6/uL (3.85-5.65); White Blood Count 7.64 10^3/uL (3.29-11.43)
[2025-04-12] MEDS: insulin glargine 100 units/1 mL 20 UNIT SUBCUT ×2 (09:53→17:00)
--- NOTE | 2025-04-12 09:59 | PM.CONSULT ---
Providers/Reason For Consult Consulting Physician/Specialty*: Roman Selby MD/tele- nephrology Reason for Consult*: ESRD hypertensive urgency Requesting Physician: Dr. Rhodes Attending Physician: Nadja Rhodes MD Primary Care Provider: LAWANDA Garcia History of Present Illness History of Present Illness Hunter San is a 34 year old male ESRD due to diabetes uncontrolled hypertension and schizophrenia. Patient has used drugs in the past. Patient was transferred from another hospital weekend with severe back pain and was found to be in hypertensive emergency the patient was put on labetalol drip in the ICU. Renal was called to see the patient. Review of Systems Narrative: Denies headaches denies vision changes. Denies shortness of breath positive back pain. Patient overnight had a headache which is since improved. The patient still urinates. Patient has no shortness of breath at rest does get dyspnea on exertion. Denies hearing voices. Denies suicidal tendency. The patient states that he smokes and he takes his medications. Medications/Allergies Home Medications ?Medication ?Instructions ?Recorded ?Confirmed ?Last Taken ?Type Intraoperative Neuromonitoring #1 ea 08/22/22 04/12/25 Unknown Rx insulin syringe-needle U-100 1 mL #100 ea 06/27/23 04/12/25 Unknown Rx 31 gauge x 5/16 (BD Insulin Syringe Ultra-Fine) pen needle, diabetic 32 gauge x #100 ea 06/27/23 04/12/25 Unknown Rx 1/4 (BD Ultra-Fine Micro Pen Needle) amlodipine 10 mg tablet 10 mg PO QAM 09/16/23 04/12/25 04/11/25 History blood sugar diagnostic (True #100 ea 10/04/23 04/12/25 Unknown Rx Metrix Glucose Test Strip) blood-glucose meter (True Metrix #1 ea 10/04/23 04/12/25 Unknown Rx Air Glucose Meter kit) lancets 31 gauge #100 ea 10/04/23 04/12/25 Unknown Rx blood-glucose sensor ([employer] G7 #1 ea 10/21/23 04/12/25 Unknown History Sensor device) insulin lispro 100 unit/mL 25 unit SUBCUT TID 07/24/24 04/12/25 04/11/25 History subcutaneous pen (Humalog KwikPen (U-100) Insulin) amitriptyline 50 mg tablet 50 mg PO BEDTIME 11/06/24 04/12/25 04/11/25 History bupropion HCl 150 mg 24 hr tablet, 150 mg PO DAILY 11/06/24 04/12/25 04/11/25 History extended release carvedilol 25 mg tablet 25 mg PO Q12H 11/06/24 04/12/25 04/11/25 History epinephrine 0.3 mg/0.3 mL See Rx Instructions .Route .COMPLEX 11/06/24 04/12/25 Unknown History injection, auto-injector insulin glargine 100 unit/mL (3 25 unit SUBCUT BID 11/06/24 04/12/25 04/11/25 History mL) subcutaneous pen (Lantus Solostar U-100 Insulin) aripiprazole 5 mg tablet 5 mg PO DAILY 04/12/25 04/12/25 04/11/25 History aspirin 81 mg tablet,delayed 81 mg PO DAILY 04/12/25 04/12/25 04/11/25 History release atorvastatin 80 mg tablet 80 mg PO DAILY 04/12/25 04/12/25 04/11/25 History benzonatate 100 mg capsule 100 mg PO TID PRN Cough 04/12/25 04/12/25 04/11/25 History bumetanide 1 mg tablet See Rx Instructions .Route .COMPLEX 04/12/25 04/12/25 04/11/25 History clonidine HCl 0.2 mg tablet 0.2 mg PO TID 04/12/25 04/12/25 04/11/25 History gabapentin 100 mg capsule 100 mg PO TID 04/12/25 04/12/25 04/11/25 History hydralazine 100 mg tablet 100 mg PO TID 04/12/25 04/12/25 04/11/25 History lidocaine 4 % topical patch 1 patch topical DAILY PRN Pain 04/12/25 04/12/25 Unknown History ondansetron 4 mg disintegrating 4 mg PO Q6H PRN nausea/emesis 04/12/25 04/12/25 Unknown History tablet spironolactone 50 mg tablet 50 mg PO DAILY 04/12/25 04/12/25 04/11/25 History varenicline tartrate 0.5 mg (11)-1 See Rx Instructions .Route .COMPLEX 04/12/25 04/12/25 04/11/25 History mg (42) tablets in a dose pack Allergies Allergy/AdvReac Type Severity Reaction Status Date / Time bee venom protein (honey bee) Allergy Unknown Verified 02/11/25 10:26 lisinopril Allergy Unknown Verified 02/11/25 10:26 Current Medications Generic Name Dose Route Start Last Admin Trade Name Freq PRN Reason Stop Dose Admin Amlodipine Besylate 10 mg 04/12/25 09:00 04/12/25 08:57 Amlodipine 10 Mg Tablet PO 10 mg DAILY LILI Administration Bupropion HCl 150 mg 04/12/25 09:00 04/12/25 08:59 Bupropion Xl (24 Hr) 150 Mg Tablet PO 150 mg DAILY LILI Administration Gabapentin 300 mg 04/12/25 09:00 04/12/25 08:59 Gabapentin 300 Mg Capsule PO 300 mg BID LILI Administration Heparin Sodium (Porcine) 5,000 unit 04/12/25 01:00 04/12/25 02:03 Heparin 5,000 Unit/Ml Inj 1 Ml SUBCUT 5,000 unit Q12H LILI Administration Hydralazine HCl 50 mg 04/12/25 09:00 04/12/25 08:59 Hydralazine 50 Mg Tablet PO 50 mg TID LILI Administration Labetalol HCl 300 mg/ Sodium 300 mls @ 0 mls/hr 04/12/25 01:00 04/12/25 02:08 Chloride IV 0.5 mg/min .Q0M LILI 30 mls/hr Protocol Administration Per Protocol Insulin Glargine 20 unit 04/12/25 09:00 04/12/25 09:53 Insulin Glargine 100 Units/1 Ml SUBCUT 20 unit BID LILI Administration Insulin Human Lispro 0 unit 04/12/25 08:00 04/12/25 09:05 Insulin Lispro 100 Unit/1 Ml SUBCUT 6 unit WM&BEDTIME LILI Administration Protocol Oxycodone HCl 5 mg 04/12/25 01:48 04/12/25 07:48 Oxycodone 5 Mg Ir Tab/Cap PO 5 mg Q6H PRN Administration MODERATE PAIN Pantoprazole Sodium 40 mg 04/12/25 02:00 04/12/25 02:[address] 40 Mg Tablet PO 40 mg DAILY LILI Administration PFSH Acute PFSH: Medical History (Updated 04/12/25 @ 02:01 by Henok Santacruz MD) End stage renal disease on dialysis due to type 1 diabetes mellitus Chronic back pain Type 1 diabetes End stage renal disease on dialysis Opiate dependence Other stimulant abuse, uncomplicated Waking at night short of breath Snoring Hypersomnia Insomnia Noncompliance w/medication treatment due to intermit use of medication Schizophrenia Methamphetamine abuse Uncontrolled hypertension Family History Other CAD (coronary artery disease) Hypertension Stroke Social History Smoking and tobacco/nicotine status: current every day tobacco/nicotine user Alcohol intake: former Substance/Drug Use: former Date of last use: Amphetamines more than 62 days ago Caregiver/support person: Yes Lives independently: Yes Household members: other Current occupation: [employer] Vitals/I&O/Wt Last Vital Signs Temp 98.4 F 04/12/25 06:00 Pulse 74 04/12/25 06:00 Resp 14 04/12/25 07:48 BP 152/87 04/12/25 06:00 Pulse Ox 96 04/12/25 07:48 O2 Del Method Room Air 04/11/25 23:50 04/11/25 04/12/25 04/12/25 22:59 06:59 14:59 Intake Total 240 / 240 Balance 240 / 240 Weight last 48 hrs Weight 94.2 kg Weight 94 kg Physical Exam Narrative: The patient is comfortable in bed Vital signs noted. Blood pressure improving on labetalol drip. HEENT normocephalic atraumatic. Neck is supple Lungs have bilateral basal dullness. Heart regular Abdomen soft positive bowel sounds. Extremities no significant edema. The patient has a fistula and a permacath. Neuro awake alert oriented x 3 Data 04/12/25 09:35 04/12/25 09:35 A&P Assessment and plan (1) End stage renal disease on dialysis due to type 1 diabetes mellitus: 34-year-old man ESRD hypertension diabetes. 1. Hypertensive emergency will do extra dialysis today to see if this helps with blood pressure. 2. Post dialysis will adjust blood pressure medications. However I would avoid using oral clonidine as I am concerned that he misses doses and has rebound hypertension. 3. Anemia monitor hemoglobin check iron studies avoid Epogen with hypertension 4. Chemistries are pending 5. Diabetic control Patient vies not to smoke or use drugs. Patient was seen and examined using audiovisual equipment with the aid of a nurse. The patient consented to telehealth, and to hemo- dialysis. Plan See above dialysis today adjust medications. PDMP PDMP Reviewed: Not Reviewed Consult Attestations Medical Necessity Statement: Hypertensive emergency, back pain, ESRD Time Spent in Patient Care: Greater than 35 minutes (>than 50% of time spent in counselling and/or direct pt care on unit). Coding Level of Care Code Acute Code for g Fwd Diagnoses End stage renal disease on dialysis due to type 1 diabetes mellitus E10.22; N18.6; Z99.2
[2025-04-12 10:01] LABS: Alanine Aminotransferase 17 U/L (0-41); Albumin Level 2.7 g/dL (3.5-5.2); Alkaline Phosphatase 71 U/L (40-130); Anion Gap 19.9 (5-19); Aspartate Amino Transferase 13 U/L (0-40); Blood Urea Nitrogen 49 mg/dL (6-20); Calcium 8.6 mg/dL (8.5-10.5); Carbon Dioxide 21 mmol/L (22-29); Chloride 98 mmol/L (98-107); Creatinine Clr Calc Pharmacy 18.2382; Globulin 2.9 g/dL (1.3-4.6); Glucose 275 mg/dL (65-115); Magnesium 2.2 mg/dL (1.7-2.3); Osmolality Calculated 299 mOsm/kg (285-295); Potassium 5.9 mmol/L (3.5-5.1); Sodium 133 mmol/L (136-145); Total Protein 5.6 g/dL (6.6-8.7)
[2025-04-12 10:46] LABS: Hepatitis B Surface Antigen Non-Reactive (Nonreactive)
[2025-04-12] MEDS: heparin, porcine 1,000 unit/mL INJ 10 mL 1000 UNIT IV (13:10)
--- NOTE | 2025-04-12 13:40 | USR_ITS ---
PROCEDURE INFORMATION: Exam: US Retroperitoneal, Complete, Kidneys and Bladder Exam date and time: 04/12/2025 6:28 PM Age: 34 years old Clinical indication: Abdominal pain; Additional info: Renal pain, PT currently with dialysis @1635 TECHNIQUE: Imaging protocol: Real-time ultrasound of the retroperitoneum with image documentation. Complete exam focused on the bilateral kidneys and urinary bladder. COMPARISON: CT lumbar spine wo con* [id number] 11/21/2023 10:30 AM FINDINGS: Right kidney: Normal. No stones. No hydronephrosis. Right kidney measures 11.5 cm. Left kidney: Normal. No stones. No hydronephrosis. Left kidney measures 11.9 cm. Urinary bladder: Unremarkable. Bilateral ureteral jets are seen. Aorta: Distal aorta measures 1.5 cm. US/US renal BI* [id number] IMPRESSION: Unremarkable kidneys and bladder.
--- NOTE | 2025-04-12 15:36 | PM.MISC ---
Miscellaneous Note Note: seen today pt complains of back pain that is chronic for him says he may be having muscle spasms we tried flexeril which has helped patient will review imaging studies plan for dialysis today labetalol has been off this am BP 160/98 continue mgmt per HnP
[2025-04-12] MEDS: hyDRALAzine 20 mg/mL INJ 1 mL IVP (17:19)
[2025-04-12 17:28] LABS: Glucose Urine UA 2+ (Normal); Nitrate Urine Negative (Negative); Specific Gravity, Urine 1.017 (1.005-1.030)
--- NOTE | 2025-04-12 18:32 | PC.NURSE ---
SHift SUmmary: Uneventful shift. Received dialysis, 3L removed. BLood pressures variable, but mostly continue to by 160 systolic +. Restarted on home dose of coreg. Complains of back pain which is relieved by oxycodone and flexeril.
--- NOTE | 2025-04-12 19:47 | PC.NURSE ---
Provider notified of patients pain not being controlled. Gave verbal telephone orders for 1mg IVP dilaudid now and q6h prn. See MAR
[2025-04-12] MEDS: HYDROmorphone 0.5 MG/0.5 ML INJ 1 MG IVP (20:50)
--- NOTE | 2025-04-12 22:05 | PC.NURSE ---
Provider notified of patients request for nicotine patch. Order placed. See MAR
[2025-04-13] VITALS (160 sets, daily range): BP systolic 111–200; BP diastolic 57–120; PULSE 80–100; RESP 0–36; TEMP 36.7–36.8; O2SAT 74–100
[2025-04-13] MEDS: heparin 5,000 unit/mL INJ 1 mL 5000 UNIT SUBCUT ×2 (02:01→15:32)
--- NOTE | 2025-04-13 02:57 | PC.NURSE ---
Patient shared he would like to speak with a provider because he feels his Abilify is not working as well as it did previously with managing his schizophrenia, He has also repeatedly shared he does not want his blood pressure to override the severe chronic back pain, which was why he initially went to the hospital. He has been much more comfortable tonight since the change in pain medication.
[2025-04-13 04:25] LABS: Hematocrit 28.8 % (37-53); Hemoglobin 9.20 g/dL (11.27-16.99); Mean Corpuscular HGB Conc 31.9 g/dL (30-55); Mean Corpuscular Hemoglobin 30.6 pg (27-33); Mean Corpuscular Volume 95.7 fl (82-101); Nucleated Red Blood Cells % 0 %; Platelet Count 195 10^3/cmm (157-399); Red Blood Count 3.01 10^6/uL (3.85-5.65); White Blood Count 6.24 10^3/uL (3.29-11.43)
[2025-04-13 04:44] LABS: Alanine Aminotransferase 17 U/L (0-41); Albumin Level 2.7 g/dL (3.5-5.2); Alkaline Phosphatase 88 U/L (40-130); Anion Gap 15.6 (5-19); Aspartate Amino Transferase 13 U/L (0-40); Blood Urea Nitrogen 30 mg/dL (6-20); Calcium 8.1 mg/dL (8.5-10.5); Carbon Dioxide 27 mmol/L (22-29); Chloride 100 mmol/L (98-107); Creatinine Clr Calc Pharmacy 24.6627; Globulin 3.0 g/dL (1.3-4.6); Glucose 208 mg/dL (65-115); Osmolality Calculated 298 mOsm/kg (285-295); Potassium 4.6 mmol/L (3.5-5.1); Sodium 138 mmol/L (136-145); Total Protein 5.7 g/dL (6.6-8.7)
[2025-04-13] MEDS: HYDROmorphone 0.5 MG/0.5 ML INJ 1 MG IVP ×3 (05:52→20:22)
--- NOTE | 2025-04-13 07:50 | PM.PN ---
Subjective Subjective: feels better after dialysis yesterday. he states that he has chronic lower back pain. no n/v/f/c/waters/d Medications: Reviewed: Yes Medication Review Details: Current Medications Acetaminophen (Acetaminophen 325 Mg Tablet) 650 mg PO Q6H PRN PRN Reason: Mild/Mod Pain Or Temp >/= 101 Amitriptyline HCl (Amitriptyline 25 Mg Tablet) 50 mg PO BEDTIME [facility] Last Admin: 04/12/25 20:55 Dose: 50 mg Amlodipine Besylate (Amlodipine 10 Mg Tablet) 10 mg PO DAILY [facility] Last Admin: 04/12/25 08:57 Dose: 10 mg Bupropion HCl (Bupropion Xl (24 Hr) 150 Mg Tablet) 150 mg PO DAILY [facility] Last Admin: 04/12/25 08:59 Dose: 150 mg Carvedilol (Carvedilol 25 Mg Tablet) 25 mg PO BID [facility] Last Admin: 04/12/25 18:25 Dose: 25 mg Clonidine HCl (Clonidine 0.1 Mg Tablet) 0.1 mg PO Q4H PRN PRN Reason: systolic BP over 150 Cyclobenzaprine HCl (Cyclobenzaprine 10 Mg Tablet) 10 mg PO TID PRN PRN Reason: MUSCLE SPASMS Last Admin: 04/12/25 21:34 Dose: 10 mg Gabapentin (Gabapentin 300 Mg Capsule) 300 mg PO BID [facility] Last Admin: 04/12/25 17:00 Dose: 300 mg Glucagon (Glucagon 1 Mg/Ml Kit 1 Ml) 1 mg IM ONCE PRN; Protocol PRN Reason: Adult Acute Hypoglycemia Nursing Prot. Heparin Sodium (Porcine) (Heparin 5,000 Unit/Ml Inj 1 Ml) 5,000 unit SUBCUT Q12H [facility] Last Admin: 04/13/25 02:01 Dose: 5,000 unit Hydralazine HCl (Hydralazine 20 Mg/Ml Inj 1 Ml) 20 mg IVP Q4H PRN PRN Reason: sbp over 160 Last Admin: 04/12/25 17:19 Dose: 20 mg Hydralazine HCl (Hydralazine 50 Mg Tablet) 50 mg PO TID [facility] Last Admin: 04/12/25 21:34 Dose: 50 mg Hydromorphone HCl (Hydromorphone 0.5 Mg/0.5 Ml Inj) 1 mg IVP Q6H PRN PRN Reason: SEVERE PAIN Last Admin: 04/13/25 05:52 Dose: 1 mg Labetalol HCl 300 mg/ Sodium (Chloride) 300 mls @ 0 mls/hr IV .Q0M [facility]; Protocol Last Titration: 04/12/25 10:00 Dose: 0 mg/min, 0 mls/hr Dextrose (D5w) 500 mls @ 0 mls/hr IV ONCE PRN; Protocol PRN Reason: Adult Acute Hypoglycemia Prot Dextrose (D10w) 125 mls @ 750 mls/hr IV PRN PRN; Protocol PRN Reason: Adult Acute Hypoglycemia Nursing Protocol Dextrose (D10w) 250 mls @ 1,000 mls/hr IV PRN PRN; Protocol PRN Reason: Adult Acute Hypoglycemia Nursing Protocol Insulin Glargine (Insulin Glargine 100 Units/1 Ml) 20 unit SUBCUT BID [facility] Last Admin: 04/12/25 17:00 Dose: 20 unit Insulin Human Lispro (Insulin Lispro 100 Unit/1 Ml) 0 unit SUBCUT WM&BEDTIME [facility]; Protocol Last Admin: 04/12/25 21:35 Dose: 10 unit Nicotine (Nicotine 21 Mg Patch) 1 patch TRANSDERMA DAILY [facility] Last Admin: 04/12/25 22:17 Dose: 1 patch Ondansetron HCl (Ondansetron 2 Mg/Ml Sdv 2 Ml) 4 mg IVP Q8H PRN PRN Reason: vomiting, or N/V if npo Oxycodone HCl (Oxycodone 5 Mg Ir Tab/Cap) 5 mg PO Q6H PRN PRN Reason: MODERATE PAIN Last Admin: 04/12/25 14:13 Dose: 5 mg Pantoprazole Sodium (Pantoprazole Dr 40 Mg Tablet) 40 mg PO DAILY [facility] Last Admin: 04/12/25 02:06 Dose: 40 mg Vitals/I&O/Wt Last Vital Signs Temp 98.6 F 04/12/25 22:44 Pulse 85 04/13/25 05:28 Resp 15 04/13/25 04:26 BP 147/73 04/13/25 04:26 Pulse Ox 93 04/13/25 04:26 O2 Del Method Room Air 04/12/25 16:45 04/12/25 04/13/25 04/13/25 22:59 06:59 14:59 Intake Total 1340 / 1936 Output Total 3501 / 3751 200 / 3951 Balance -2161 / -1815 -200 / -2014 Weight last 48 hrs Weight 93.5 kg Weight 93 kg Weight 94.2 kg Weight 94 kg Physical Exam Narrative: The patient is comfortable in bed Vital signs noted. Blood pressure elevated but improved. off of labetalol drip. HEENT normocephalic atraumatic. Neck is supple Lungs have good air movement b/l Heart regular Abdomen soft positive bowel sounds. Extremities no significant edema. The patient has a AV fistula and a permacath. Neuro awake alert oriented x 3 Data 04/13/25 04:14 04/13/25 04:14 A&P Assessment and plan (1) End stage renal disease on dialysis due to type 1 diabetes mellitus: 34-year-old man ESRD hypertension diabetes. 1. Hypertensive emergency improved w/ HD and meds. would wean off clonidine 2. ESRD- s/p extra HD yesterday. regular days are TTS. will attempt hD today if nurse is available 3. Anemia monitor hemoglobin check iron studies -start Epogen as BP is improving 4. Diabetic control 5. chronic pain per hospitalist 6. hyperphosphatemia- binders Patient was seen and examined using audiovisual equipment with the aid of a nurse. The patient consented to telehealth, and to hemo- dialysis. Plan See above PDMP PDMP Reviewed: Not Reviewed Attestations Medical Necessity Statement*: esrd, anemia, htn, back pain Time Spent in Patient Care: 16 - 35 minutes (>than 50% of time spent in counselling and/or direct pt care on unit). Coding Level of Care Code Acute Code for Chg Fwd Diagnoses End stage renal disease on dialysis due to type 1 diabetes mellitus E10.22; N18.6; Z99.2
[2025-04-13] MEDS: insulin glargine 100 units/1 mL 20 UNIT SUBCUT ×2 (08:33→17:41)
--- NOTE | 2025-04-13 09:35 | XR_ITS ---
WS: [id number] XR lumbar spine 2-3V* 54301 REASON FOR EXAM: History of lumbar fusion FINDINGS: Posterior decompression with pedicle screws L3-S1. Oblique pelvic screws at S2. Interconnecting rods L3-S2 lateral bony fusion masses L3-S1. Old screw fragment on the the right at S1. Interbody fusion devices L3-S1. Surgical appliances are in proper position and alignment unchanged compared to 11/05/2023. There has been revision of the posterior fusion to include the oblique pelvic screws. XR/XR lumbar spine 2-3V* 38449 IMPRESSION: Posterior lumbar fusion as above.
[2025-04-13 09:52] LABS: Iron 62 ug/dL (59-158); Total Iron Binding Capacity 179 mcg/dl; Unsaturated Iron Binding 117 ug/dL (112-347)
[2025-04-13] MEDS: oxyCODONE 5 mg IR Tab/Cap PO ×2 (09:53→16:09)
--- NOTE | 2025-04-13 10:04 | PM.CONSULT ---
Providers/Reason For Consult Consulting Physician/Specialty*: Hospitalist Reason for Consult*: Back pain Attending Physician: Nadja Rhodes MD Primary Care Provider: LAWANDA Garcia History of Present Illness History of Present Illness Hunter San is a 34 year old male had a lumbar fusion in December 2023. Looking back in the notes does not look like he followed up for any of his postop visits at all. This will be the first have seen him since his surgery. Patient stated back then he was early interested in his health. At this point patient is complaining of low back pain. Goes into his left buttock but does not go down his leg. Hurts when he walks. He is currently on dialysis. Review of Systems General: Reports: 10 or more systems reviewed and unremarkable except in HPI and below Const: Denies: fever(s), chills or body aches Card: Denies: chest pain, palpitations or irregular heart rhythm GI: Denies: nausea Musc: Denies: neck pain or back pain Neuro: Denies: headache(s) Antonio/Lymph: Reports: easy bleeding; Denies: easy bruising Medications/Allergies Home Medications ?Medication ?Instructions ?Recorded ?Confirmed ?Last Taken ?Type Intraoperative Neuromonitoring #1 ea 08/22/22 04/12/25 Unknown Rx insulin syringe-needle U-100 1 mL #100 ea 06/27/23 04/12/25 Unknown Rx 31 gauge x 5/16 (BD Insulin Syringe Ultra-Fine) pen needle, diabetic 32 gauge x #100 ea 06/27/23 04/12/25 Unknown Rx 1/4 (BD Ultra-Fine Micro Pen Needle) amlodipine 10 mg tablet 10 mg PO QAM 09/16/23 04/12/25 04/11/25 History blood sugar diagnostic (True #100 ea 10/04/23 04/12/25 Unknown Rx Metrix Glucose Test Strip) blood-glucose meter (True Metrix #1 ea 10/04/23 04/12/25 Unknown Rx Air Glucose Meter kit) lancets 31 gauge #100 ea 10/04/23 04/12/25 Unknown Rx blood-glucose sensor (Dexcom G7 #1 ea 10/21/23 04/12/25 Unknown History Sensor device) insulin lispro 100 unit/mL 25 unit SUBCUT TID 07/24/24 04/12/25 04/11/25 History subcutaneous pen (Humalog KwikPen (U-100) Insulin) amitriptyline 50 mg tablet 50 mg PO BEDTIME 11/06/24 04/12/25 04/11/25 History bupropion HCl 150 mg 24 hr tablet, 150 mg PO DAILY 11/06/24 04/12/25 04/11/25 History extended release carvedilol 25 mg tablet 25 mg PO Q12H 11/06/24 04/12/25 04/11/25 History epinephrine 0.3 mg/0.3 mL See Rx Instructions .Route .COMPLEX 11/06/24 04/12/25 Unknown History injection, auto-injector insulin glargine 100 unit/mL (3 25 unit SUBCUT BID 11/06/24 04/12/25 04/11/25 History mL) subcutaneous pen (Lantus Solostar U-100 Insulin) aripiprazole 5 mg tablet 5 mg PO DAILY 04/12/25 04/12/25 04/11/25 History aspirin 81 mg tablet,delayed 81 mg PO DAILY 04/12/25 04/12/25 04/11/25 History release atorvastatin 80 mg tablet 80 mg PO DAILY 04/12/25 04/12/25 04/11/25 History benzonatate 100 mg capsule 100 mg PO TID PRN Cough 04/12/25 04/12/25 04/11/25 History bumetanide 1 mg tablet See Rx Instructions .Route .COMPLEX 04/12/25 04/12/25 04/11/25 History clonidine HCl 0.2 mg tablet 0.2 mg PO TID 04/12/25 04/12/25 04/11/25 History gabapentin 100 mg capsule 100 mg PO TID 04/12/25 04/12/25 04/11/25 History hydralazine 100 mg tablet 100 mg PO TID 04/12/25 04/12/25 04/11/25 History lidocaine 4 % topical patch 1 patch topical DAILY PRN Pain 04/12/25 04/12/25 Unknown History ondansetron 4 mg disintegrating 4 mg PO Q6H PRN nausea/emesis 04/12/25 04/12/25 Unknown History tablet spironolactone 50 mg tablet 50 mg PO DAILY 04/12/25 04/12/25 04/11/25 History varenicline tartrate 0.5 mg (11)-1 See Rx Instructions .Route .COMPLEX 04/12/25 04/12/25 04/11/25 History mg (42) tablets in a dose pack Allergies Allergy/AdvReac Type Severity Reaction Status Date / Time bee venom protein (honey bee) Allergy Unknown Verified 02/11/25 10:26 lisinopril Allergy Unknown Verified 02/11/25 10:26 Current Medications Generic Name Dose Route Start Last Admin Trade Name Freq PRN Reason Stop Dose Admin Amitriptyline HCl 50 mg 04/12/25 21:00 04/12/25 20:55 Amitriptyline 25 Mg Tablet PO 50 mg BEDTIME [facility] Administration Amlodipine Besylate 10 mg 04/12/25 09:00 04/13/25 08:33 Amlodipine 10 Mg Tablet PO 10 mg DAILY [facility] Administration Bupropion HCl 150 mg 04/12/25 09:00 04/13/25 08:33 Bupropion Xl (24 Hr) 150 Mg Tablet PO 150 mg DAILY [facility] Administration Carvedilol 25 mg 04/12/25 18:30 04/13/25 08:32 Carvedilol 25 Mg Tablet PO 25 mg BID [facility] Administration Cyclobenzaprine HCl 10 mg 04/12/25 15:08 04/13/25 09:53 Cyclobenzaprine 10 Mg Tablet PO 10 mg TID PRN Administration MUSCLE SPASMS Furosemide 80 mg 04/13/25 08:00 04/13/25 08:35 Furosemide 40 Mg Tablet PO 80 mg BID@08,16 [facility] Administration Gabapentin 300 mg 04/12/25 09:00 04/13/25 08:32 Gabapentin 300 Mg Capsule PO 300 mg BID [facility] Administration Heparin Sodium (Porcine) 5,000 unit 04/12/25 01:00 04/13/25 02:01 Heparin 5,000 Unit/Ml Inj 1 Ml SUBCUT 5,000 unit Q12H [facility] Administration Hydralazine HCl 20 mg 04/12/25 00:49 04/12/25 17:19 Hydralazine 20 Mg/Ml Inj 1 Ml IVP 20 mg Q4H PRN Administration sbp over 160 Hydralazine HCl 50 mg 04/12/25 09:00 04/13/25 08:33 Hydralazine 50 Mg Tablet PO 50 mg TID [facility] Administration Hydromorphone HCl 1 mg 04/12/25 19:46 04/13/25 05:52 Hydromorphone 0.5 Mg/0.5 Ml Inj IVP 1 mg Q6H PRN Administration SEVERE PAIN Labetalol HCl 300 mg/ Sodium 300 mls @ 0 mls/hr 04/12/25 01:00 04/12/25 10:00 Chloride IV 0 mg/min .Q0M [facility] 0 mls/hr Protocol Titration Per Protocol Insulin Glargine 20 unit 04/12/25 09:00 04/13/25 08:33 Insulin Glargine 100 Units/1 Ml SUBCUT 20 unit BID [facility] Administration Insulin Human Lispro 0 unit 04/12/25 08:00 04/13/25 08:33 Insulin Lispro 100 Unit/1 Ml SUBCUT 4 unit WM&BEDTIME [facility] Administration Protocol Nicotine 1 patch 04/12/25 22:00 04/13/25 08:32 Nicotine 21 Mg Patch TRANSDERMA 1 patch DAILY [facility] Administration Oxycodone HCl 5 mg 04/12/25 01:48 04/13/25 09:53 Oxycodone 5 Mg Ir Tab/Cap PO 5 mg Q6H PRN Administration MODERATE PAIN Pantoprazole Sodium 40 mg 04/12/25 02:00 04/13/25 08:[address] 40 Mg Tablet PO 40 mg DAILY [facility] Administration Sevelamer Carbonate 1,600 mg 04/13/25 09:00 04/13/25 08:32 Sevelamer 800 Mg Tablet PO 1,600 mg TID [facility] Administration PFSH Acute PFSH: Medical History (Updated 04/12/25 @ 02:01 by Henok Santacruz MD) End stage renal disease on dialysis due to type 1 diabetes mellitus Chronic back pain Type 1 diabetes End stage renal disease on dialysis Opiate dependence Other stimulant abuse, uncomplicated Waking at night short of breath Snoring Hypersomnia Insomnia Noncompliance w/medication treatment due to intermit use of medication Schizophrenia Methamphetamine abuse Uncontrolled hypertension Family History Other CAD (coronary artery disease) Hypertension Stroke Social History Smoking and tobacco/nicotine status: current every day tobacco/nicotine user Alcohol intake: former Substance/Drug Use: former Date of last use: Amphetamines more than 62 days ago Caregiver/support person: Yes Lives independently: Yes Household members: other Current occupation: [employer] Vitals/I&O/Wt Last Vital Signs Temp 98.6 F 04/12/25 22:44 Pulse 88 04/13/25 09:00 Resp 18 04/13/25 09:53 BP 168/111 04/13/25 09:00 Pulse Ox 95 04/13/25 09:53 O2 Del Method Room Air 04/13/25 09:00 04/12/25 04/13/25 04/13/25 22:59 06:59 14:59 Intake Total 1340 / 1936 480 / 480 Output Total 3501 / 3751 200 / 3951 400 / 400 Balance -216 / -1814 -200 / -2014 80 / 80 Weight last 48 hrs Weight 206 lb 2.115 oz Weight 205 lb 0.478 oz Weight 207 lb 10.807 oz Weight 207 lb 3.752 oz Physical Exam Narrative: Alert and oriented x 3 Head is normocephalic atraumatic Respirations are intact No evidence of any rashes or infection 5/5 strength in bilateral upper and lower extremities Laying in bed comfortable Data 04/13/25 04:14 04/13/25 04:14 A&P Assessment and plan (1) Status post lumbar spinal fusion: Plan is to check an x-ray in likely will have follow-up as an outpatient basis but well as he will check the x-ray and determine treatment plan. PDMP PDMP Reviewed: Not Reviewed Coding Level of Care Code Acute Code for Chg Fwd Diagnoses Status post lumbar spinal fusion Z98.1
[2025-04-13 10:12] LABS: Ferritin 1238 ng/mL (30-400)
[2025-04-13] MEDS: heparin, porcine 1,000 unit/mL INJ 10 mL 2000 UNIT IV (16:25)
[2025-04-13] MEDS: diphenhydrAMINE 50 mg/mL SDV 1mL IVP (17:30)
--- NOTE | 2025-04-13 17:36 | P.PN_ITS ---
Subjective 2 Subjective: Seen this morning. Back pain is slightly better. He was seen by Dr. Alba this morning. Blood pressure elevated this morning Plan for dialysis today. Vitals/I&O/Wt Last Vital Signs Temp 98.6 F 04/12/25 22:44 Pulse 87 04/13/25 14:00 Resp 18 04/13/25 16:09 BP 175/102 04/13/25 12:00 Pulse Ox 99 04/13/25 16:09 O2 Del Method Room Air 04/13/25 12:00 04/13/25 04/13/25 04/13/25 06:59 14:59 22:59 Intake Total 960 / 960 Output Total 200 / 3951 400 / 400 Balance - 560 / 560 Weight last 48 hrs Weight 93.5 kg Weight 93 kg Weight 94.2 kg Weight 94 kg Physical Exam 2 Narrative: General well-developed well-nourished male in no acute cardio pulmonary distress Right neck tunneled catheter noted CV regular rate and rhythm Lungs clear to auscultation bilaterally Abdomen positive bowel tones soft nontender Calves no edema bilateral lower extremities Right arm has a bruit and thrill Skin warm and dry Mentation alert and oriented x 3 pleasant Data 04/13/25 04:14 04/13/25 04:14 A&P Assessment and plan (1) Hypertensive urgency: Continue with labetalol drip and hydralazine IV. Start back amlodipine, clonidine, Coreg. Will add hydralazine oral to his meds but he states he was taking that at home just does not know the dose (2) Chronic back pain: Patient reports he had a slipped disc that was worsening and now has been fused back by Dr. Alba. Patient states he is not on chronic pain meds (3) End stage renal disease on dialysis due to type 1 diabetes mellitus: 1600-calorie dialysis diet carb controlled. Continue dialysis (4) Type 1 diabetes: Resume home Lantus 20 units twice a day. Med list shows 100 units twice a day but he states that strong Plan 04/13/2025 plan for dialysis today spine surgeon consulted, await recommendations Patient requesting pain management referral. Will provide for referral at discharge. Continue Flexeril at discharge. Will order short-term hydrocodone until patient is seen by pain management. Will stop clonidine at discharge. Patient at high risk of rebound hypertension. Discussed with nephrology. Continue Coreg, amlodipine 10 daily, amitriptyline, Bumex home dose, hydralazine. After dialysis today patient may be able to discharge home if clinically stable. However if still hypertensive we will continue to hospitalized to get blood pressure optimized. PDMP PDMP Reviewed: Not Reviewed Attestations 2 Medical Necessity Statement*: Hypertensive urgency Diagnoses Hypertensive urgency I16.0 Chronic back pain M54.9; G89.29 End stage renal disease on dialysis due to type 1 diabetes mellitus E10.22; N18.6; Z99.2 Type 1 diabetes E10.9
[2025-04-13] MEDS: hyDRALAzine 20 mg/mL INJ 1 mL IVP (18:09)
[2025-04-14] VITALS (87 sets, daily range): BP systolic 123–176; BP diastolic 67–96; PULSE 84–105; RESP 1–30; TEMP 36.9; O2SAT 80–98
[2025-04-14] MEDS: heparin 5,000 unit/mL INJ 1 mL 5000 UNIT SUBCUT (02:47)
[2025-04-14 04:40] LABS: Anion Gap 14.8 (5-19); Blood Urea Nitrogen 27 mg/dL (6-20); Calcium 8.3 mg/dL (8.5-10.5); Carbon Dioxide 27 mmol/L (22-29); Chloride 100 mmol/L (98-107); Creatinine Clr Calc Pharmacy 28.2934; Glucose 123 mg/dL (65-115); Magnesium 2.2 mg/dL (1.7-2.3); Osmolality Calculated 290 mOsm/kg (285-295); Potassium 4.8 mmol/L (3.5-5.1); Sodium 137 mmol/L (136-145)
--- NOTE | 2025-04-14 07:44 | PM.PN ---
Subjective Subjective: The patient was seen and examined. Still has back pain but improving. No nausea or vomiting or diarrhea. Blood pressure is labile but improving. Medications: Reviewed: Yes Medication Review Details: Current Medications Acetaminophen (Acetaminophen 325 Mg Tablet) 650 mg PO Q6H PRN PRN Reason: Mild/Mod Pain Or Temp >/= 101 Amitriptyline HCl (Amitriptyline 25 Mg Tablet) 50 mg PO BEDTIME [facility] Last Admin: 04/13/25 20:22 Dose: 50 mg Amlodipine Besylate (Amlodipine 10 Mg Tablet) 10 mg PO DAILY [facility] Last Admin: 04/13/25 08:33 Dose: 10 mg Bupropion HCl (Bupropion Xl (24 Hr) 150 Mg Tablet) 150 mg PO DAILY [facility] Last Admin: 04/13/25 08:33 Dose: 150 mg Carvedilol (Carvedilol 25 Mg Tablet) 25 mg PO BID [facility] Last Admin: 04/13/25 17:41 Dose: 25 mg Cyclobenzaprine HCl (Cyclobenzaprine 10 Mg Tablet) 10 mg PO TID PRN PRN Reason: MUSCLE SPASMS Last Admin: 04/13/25 22:00 Dose: 10 mg Furosemide (Furosemide 40 Mg Tablet) 80 mg PO BID@08,16 [facility] Last Admin: 04/13/25 15:32 Dose: 80 mg Gabapentin (Gabapentin 300 Mg Capsule) 300 mg PO BID [facility] Last Admin: 04/13/25 17:41 Dose: 300 mg Glucagon (Glucagon 1 Mg/Ml Kit 1 Ml) 1 mg IM ONCE PRN; Protocol PRN Reason: Adult Acute Hypoglycemia Nursing Prot. Heparin Sodium (Porcine) (Heparin 5,000 Unit/Ml Inj 1 Ml) 5,000 unit SUBCUT Q12H [facility] Last Admin: 04/14/25 02:47 Dose: 5,000 unit Hydralazine HCl (Hydralazine 20 Mg/Ml Inj 1 Ml) 20 mg IVP Q4H PRN PRN Reason: sbp over 160 Last Admin: 04/13/25 18:09 Dose: 20 mg Hydralazine HCl (Hydralazine 50 Mg Tablet) 50 mg PO TID [facility] Last Admin: 04/13/25 20:21 Dose: 50 mg Hydromorphone HCl (Hydromorphone 0.5 Mg/0.5 Ml Inj) 1 mg IVP Q6H PRN PRN Reason: SEVERE PAIN Last Admin: 04/13/25 20:22 Dose: 1 mg Labetalol HCl 300 mg/ Sodium (Chloride) 300 mls @ 0 mls/hr IV .Q0M [facility]; Protocol Last Titration: 04/12/25 10:00 Dose: 0 mg/min, 0 mls/hr Dextrose (D5w) 500 mls @ 0 mls/hr IV ONCE PRN; Protocol PRN Reason: Adult Acute Hypoglycemia Prot Dextrose (D10w) 125 mls @ 750 mls/hr IV PRN PRN; Protocol PRN Reason: Adult Acute Hypoglycemia Nursing Protocol Dextrose (D10w) 250 mls @ 1,000 mls/hr IV PRN PRN; Protocol PRN Reason: Adult Acute Hypoglycemia Nursing Protocol Insulin Glargine (Insulin Glargine 100 Units/1 Ml) 20 unit SUBCUT BID [facility] Last Admin: 04/13/25 17:41 Dose: 20 unit Insulin Human Lispro (Insulin Lispro 100 Unit/1 Ml) 0 unit SUBCUT WM&BEDTIME [facility]; Protocol Last Admin: 04/13/25 20:21 Dose: 6 unit Nicotine (Nicotine 21 Mg Patch) 1 patch TRANSDERMA DAILY [facility] Last Admin: 04/13/25 08:32 Dose: 1 patch Ondansetron HCl (Ondansetron 2 Mg/Ml Sdv 2 Ml) 4 mg IVP Q8H PRN PRN Reason: vomiting, or N/V if npo Oxycodone HCl (Oxycodone 5 Mg Ir Tab/Cap) 5 mg PO Q6H PRN PRN Reason: MODERATE PAIN Last Admin: 04/13/25 16:09 Dose: 5 mg Pantoprazole Sodium (Pantoprazole Dr 40 Mg Tablet) 40 mg PO DAILY [facility] Last Admin: 04/13/25 08:33 Dose: 40 mg Sevelamer Carbonate (Sevelamer 800 Mg Tablet) 1,600 mg PO TID [facility] Last Admin: 04/13/25 20:22 Dose: 1,600 mg Vitals/I&O/Wt Last Vital Signs Temp 98.1 F 04/13/25 21:27 Pulse 91 04/14/25 05:21 Resp 24 H 04/14/25 04:02 BP 148/83 04/14/25 04:02 Pulse Ox 96 04/14/25 04:02 O2 Del Method Room Air 04/13/25 18:00 04/13/25 04/14/25 04/14/25 22:59 06:59 14:59 Intake Total 740 / 1700 Output Total 3183 / 3583 Balance -2443 / -1883 Weight last 48 hrs Weight 95.3 kg Weight 95 kg Weight 93.5 kg Weight 93 kg Physical Exam Narrative: The patient is comfortable in bed Vital signs noted. HEENT normocephalic atraumatic. Neck is supple Lungs have good air movement b/l Heart regular Abdomen soft positive bowel sounds. Extremities no significant edema. The patient has a AV fistula and a permacath. Neuro awake alert oriented x 3 Data 04/13/25 04:14 04/14/25 03:35 A&P Assessment and plan (1) End stage renal disease on dialysis due to type 1 diabetes mellitus: 34-year-old man ESRD hypertension diabetes. 1. Hypertensive emergency improved w/ HD x 2 and meds. 2. ESRD- continue HD TTS. 3. Anemia monitor hemoglobin -34% iron sat 1238 ferritin. no need for iron -start Epogen as BP is improving 4. Diabetic control 5. chronic pain per hospitalist 6. hyperphosphatemia- improving w/ dialysis and binders Patient was seen and examined using audiovisual equipment with the aid of a nurse. The patient consented to telehealth, and to hemo- dialysis. Plan See above PDMP PDMP Reviewed: Not Reviewed Attestations Medical Necessity Statement*: per hospitalist Time Spent in Patient Care: 16 - 35 minutes (>than 50% of time spent in counselling and/or direct pt care on unit). Coding Level of Care Code Acute Code for Chg Fwd Diagnoses End stage renal disease on dialysis due to type 1 diabetes mellitus E10.22; N18.6; Z99.2
[2025-04-14] MEDS: insulin glargine 100 units/1 mL 20 UNIT SUBCUT (08:04)
[2025-04-14] MEDS: oxyCODONE 5 mg IR Tab/Cap PO (08:42)
--- NOTE | 2025-04-14 09:34 | PM.DCS ---
Discharge Providers Date of Admission: 04/11/25 23:47 Date of Discharge: April 14, 2025 Attending Provider at Admission: Henok Santacruz MD Attending Provider at Discharge: Nadja Rhodes MD Primary Care Provider: LAWANDA Garcia Diagnoses at Discharge Discharge Diagnosis (1) End stage renal disease on dialysis due to type 1 diabetes mellitus: Status: Acute Reason for Visit Reason for Visit: Hypertensive Crisis Hospital Course Hospital Course Patient was admitted to the hospital from [facility] with hypertensive urgency. Patient was sent on a labetalol drip with no other medications. Patient stated that he had been taking his home medication but not missed any doses. He has not missed any dialysis either. Patient was dialyzed twice during the hospital. Patient was seen by nephrology and dialyzed. He denied any abdominal pain chest pain shortness of breath. He did complain of low back pain. He states that was his main complaint. He would like a referral to pain management which was placed for the patient. He was given Flexeril. Also evaluated by Dr. Alba during hospitalization. Patient will follow-up with them as an outpatient going forward. Outpatient pain management referral also placed. Overnight pulse oximetry was done which showed that patient qualified for oxygen at nighttime. He would not qualify for a BiPAP. He will need an outpatient sleep study. Patient states that he has been waiting in line for 2 years. New outpatient sleep study referral was placed with the patient, pain manage referral was also given. All medications were adjusted and optimized. He will follow-up with his PCP, endocrinology, nephrology as an outpatient. All questions answered to patient satisfaction. Stable at time of discharge. Physical Exam Narrative: General well-developed well-nourished male in no acute cardio pulmonary distress Right neck tunneled catheter noted CV regular rate and rhythm Lungs clear to auscultation bilaterally Abdomen positive bowel tones soft nontender Calves no edema bilateral lower extremities Right arm has a bruit and thrill Skin warm and dry Mentation alert and oriented x 3 pleasant Discharge Data Studies Completed and Pending Completed Studies During Hospitalization Category Date Time Status XR lumbar spine 2-3V* [id number] Routine Exams 04/13/25 09:35 Completed US renal BI* [id number] Routine Ultrasound 04/12/25 13:40 Completed Pending at discharge Category Date Time Status Basic Metabolic Panel AM LABS Lab 04/15/25 04:00 Ordered CBC Auto Diff [Complete Blood Count w/Auto] AM LABS Lab 04/15/25 04:00 Ordered Comprehensive Metabolic Panel AM LABS Lab 04/15/25 04:00 Ordered Comprehensive Metabolic Panel AM LABS Lab 04/16/25 04:00 Ordered Comprehensive Metabolic Panel AM LABS Lab 04/17/25 04:00 Ordered Magnesium AM LABS Lab 04/15/25 04:00 Ordered Magnesium AM LABS Lab 04/15/25 04:00 Ordered Magnesium AM LABS Lab 04/16/25 04:00 Ordered Magnesium AM LABS Lab 04/17/25 04:00 Ordered Phosphorus AM LABS Lab 04/15/25 04:00 Ordered Phosphorus AM LABS Lab 04/15/25 04:00 Ordered Phosphorus AM LABS Lab 04/16/25 04:00 Ordered Phosphorus AM LABS Lab 04/17/25 04:00 Ordered Urine Culture Stat Lab 04/12/25 17:19 Received Radiology Impressions Renal Ultrasound 04/12/25 13:40 IMPRESSION: Unremarkable kidneys and bladder. Lumbar Spine X-Ray 04/13/25 09:35 IMPRESSION: Posterior lumbar fusion as above. Laboratory Results WBC 6.24 10^3/uL (3.29-11.43) 04/13/25 04:14 RBC 3.01 10^6/uL (3.85-5.65) L 04/13/25 04:14 Hgb 9.20 g/dL (11.27-16.99) L 04/13/25 04:14 Hct 28.8 % (37-53) L 04/13/25 04:14 MCV 95.7 fl (82-101) 04/13/25 04:14 MCH 30.6 pg (27-33) 04/13/25 04:14 MCHC 31.9 g/dL (30-55) 04/13/25 04:14 RDW 14.5 % (12.1-15.1) 04/13/25 04:14 Plt Count 195 10^3/cmm (157-399) 04/13/25 04:14 MPV 10.2 fL (7.4-10.4) 04/13/25 04:14 Neut % (Auto) 55.7 % 04/13/25 04:14 Lymph % (Auto) 30.0 % 04/13/25 04:14 Garden % (Auto) 9.9 % 04/13/25 04:14 Eos % (Auto) 3.0 % 04/13/25 04:14 Baso % (Auto) 1.1 % 04/13/25 04:14 Neut # (Auto) 3.47 10^3/uL (1.8-7.7) 04/13/25 04:14 Lymph # (Auto) 1.9 10^3/uL (0.8-4.8) 04/13/25 04:14 Garden # (Auto) 0.6 10^3/uL (0.2-0.9) 04/13/25 04:14 Eos # (Auto) 0.2 10^3/uL (0.0-0.8) 04/13/25 04:14 Baso # (Auto) 0.1 10^3/uL (0.0-0.1) 04/13/25 04:14 Nucleated RBC % (auto) 0 % 04/13/25 04:14 Nucleated RBCs # 0.0 /100WBC 04/13/25 04:14 Sodium 137 mmol/L (136-145) 04/14/25 03:35 Potassium 4.8 mmol/L (3.5-5.1) 04/14/25 03:35 Chloride 100 mmol/L (98-107) 04/14/25 03:35 Carbon Dioxide 27 mmol/L (22-29) 04/14/25 03:35 Anion Gap 14.8 (5-19) 04/14/25 03:35 BUN 27 mg/dL (6-20) H 04/14/25 03:35 Creatinine 4.4 mg/dL (0.7-1.2) H 04/14/25 03:35 GFR Calculation 15.5 mL/min (90-130) L 04/14/25 03:35 Glucose 123 mg/dL (65-115) H 04/14/25 03:35 POC Glucose 132 mg/dL (70-110) H 04/14/25 06:59 Calculated Osmolality 290 mOsm/kg (285-295) 04/14/25 03:35 Calcium 8.3 mg/dL (8.5-10.5) L 04/14/25 03:35 Phosphorus 5.6 mg/dL (2.5-4.5) H 04/14/25 03:35 Magnesium 2.2 mg/dL (1.7-2.3) 04/14/25 03:35 Iron 62 ug/dL (59-158) 04/13/25 04:14 TIBC 179 mcg/dl 04/13/25 04:14 % Saturation 34.6 % (20-50) 04/13/25 04:14 Unsat Iron Binding 117 ug/dL (112-347) 04/13/25 04:14 Ferritin 1238 ng/mL (30-400) H 04/13/25 04:14 Total Bilirubin 0.2 mg/dL (0.15-1.2) 04/13/25 04:14 AST 13 U/L (0-40) 04/13/25 04:14 ALT 17 U/L (0-41) 04/13/25 04:14 Alkaline Phosphatase 88 U/L (40-130) 04/13/25 04:14 Total Protein 5.7 g/dL (6.6-8.7) L 04/13/25 04:14 Albumin 2.7 g/dL (3.5-5.2) L 04/13/25 04:14 Globulin 3.0 g/dL (1.3-4.6) 04/13/25 04:14 Urine Color Yellow (Yellow) 04/12/25 17:19 Urine Appearance Clear (CLEAR) 04/12/25 17:19 Urine pH 7.5 (5-7) 04/12/25 17:19 Ur Specific [place] 1.017 (1.005-1.030) 04/12/25 17:19 Urine Protein 4+ (Negative) A 04/12/25 17:19 Urine Glucose (UA) 2+ (Normal) H 04/12/25 17:19 Urine Ketones Negative (Negative) 04/12/25 17:19 Urine Blood Trace (Negative) A 04/12/25 17:19 Urine Nitrate Negative (Negative) 04/12/25 17:19 Urine Bilirubin Negative (Negative) 04/12/25 17:19 Urine Urobilinogen 0.2 mg/dL (Negative) 04/12/25 17:19 Ur Leukocyte Esterase Negative (Negative) 04/12/25 17:19 Urine RBC 3-5 /hpf (0-2) 04/12/25 17:19 Urine WBC 11-20 /hpf (0-5) H 04/12/25 17:19 Ur Squamous Epith Cells 0-5 /hpf (0-5) 04/12/25 17:19 Amorphous Sediment Not Reportable 04/12/25 17:19 Urine Bacteria None seen /hpf (NONE) 04/12/25 17:19 Hyaline Casts 6.17 /lpf 04/12/25 17:19 Hep Bs Antigen Non-reactive (Nonreactive) 04/12/25 09:35 Hep Bs Antibody 41.0 (11.5-1000) 04/12/25 09:35 Hepatitis C Antibody Non-reactive (Nonreactive) 04/12/25 09:35 Vitals Last Vital Signs Temp 98.5 F 04/14/25 08:30 Pulse 92 04/14/25 08:30 Resp 16 04/14/25 08:42 BP 176/92 04/14/25 08:30 Pulse Ox 94 04/14/25 08:42 O2 Del Method Room Air 04/14/25 08:30 Discharge Plan Discharge Patient Disposition: Home Condition: Stable Prescriptions: New cyclobenzaprine 10 mg Tablet 10 mg PO TID PRN (Reason: Muscle Spasms) Qty: 30 0RF sevelamer carbonate 800 mg Tablet 1,600 mg PO TID Qty: 180 0RF insulin lispro [Humalog KwikPen Insulin] 100 unit/mL insulin pen See Rx Instructions .ROUTE .COMPLEX Qty: 15 0RF Rx Instructions: MEDIUM dose sliding scale. Less than/equal to 70 treat hypoglycemia per nursing protocol. 71-119 No additional insulin. 120-150 2 units. 151-200 4 units. 201-250 6 units. 251-300 8 units. 301-350 10 units. Greater than 351 12 units. hydrocodone-acetaminophen 5-325 mg tablet 1 tab PO Q8H PRN (Reason: pain) Qty: 12 0RF Continued (DME) blood-glucose meter [True Metrix Air Glucose Meter] Kit See Rx Instructions .Route Qty: 1 0RF Rx Instructions: As directed (DME) True Metrix Glucose Test Strip Strip See Rx Instructions .Route Qty: 100 0RF Rx Instructions: As directed (DME) lancets 31 gauge misc See Rx Instructions .Route Qty: 100 0RF Rx Instructions: As directed (DME) Dexcom G7 Sensor Device See Rx Instructions .ROUTE .MEDSUPPLY Qty: 1 Rx Instructions: As directed (DME) Intraoperative Neuromonitoring See Rx Instructions .Route .MEDSUPPLY Qty: 1 0RF Rx Instructions: As directed (DME) pen needle, diabetic [BD Ultra-Fine Micro Pen Needle] 32 gauge x 1/4 needle See Rx Instructions .ROUTE .MEDSUPPLY Qty: 100 3RF Rx Instructions: As directed (DME) insulin syringe-needle U-100 [BD Insulin Syringe Ultra-Fine] 1 mL 31 gauge x 5/16 syringe See Rx Instructions .ROUTE .COMPLEX Qty: 100 1RF Dose Instruction: DIRECTED Rx Instructions: DIRECTED amlodipine 10 mg tablet 10 mg PO QAM carvedilol 25 mg Tablet 25 mg PO Q12H Rx Instructions: must administer with a meal/food amitriptyline 50 mg tablet 50 mg PO BEDTIME epinephrine 0.3 mg/0.3 mL auto-injector See Rx Instructions .ROUTE .COMPLEX Rx Instructions: INJECT 0.3 INTRAMUSCULARLY ONCE DAILY NEEDED FOR ANAPHYLAXIS bupropion HCl 150 mg tablet extended release 24 hr 150 mg PO DAILY atorvastatin 80 mg tablet 80 mg PO DAILY aspirin 81 mg tablet,delayed release (DR/EC) 81 mg PO DAILY benzonatate 100 mg capsule 100 mg PO TID PRN (Reason: Cough) gabapentin 100 mg capsule 100 mg PO TID ondansetron 4 mg tablet,disintegrating 4 mg PO Q6H PRN (Reason: nausea/emesis) aripiprazole 5 mg tablet 5 mg PO DAILY varenicline tartrate 0.5 mg (11)- 1 mg (42) tablets,dose pack See Rx Instructions .ROUTE .COMPLEX Rx Instructions: Take per package instructions. lidocaine 4 % Adhesive Patch,Medicated 1 patch TOPICAL DAILY PRN (Reason: Pain) Rx Instructions: to lumbar spine Changed hydralazine 100 mg tablet 100 mg PO BID Qty: 60 0RF insulin glargine [Lantus Solostar U-100 Insulin] 100 unit/mL (3 mL) insulin pen 20 unit SUBCUT BID Qty: 3 0RF bumetanide 1 mg tablet 1 mg PO DAILY Qty: 30 0RF Discontinued insulin lispro [Humalog KwikPen Insulin] 100 unit/mL Insulin Pen 25 unit SUBCUT TID Rx Instructions: before meals plus medium sliding scale clonidine HCl 0.2 mg tablet 0.2 mg PO TID spironolactone 50 mg tablet 50 mg PO DAILY Discharge Orders: Discharge Order (Routine); Ordered 04/14/25 Ordered By: Nadja Rhodes Other Ambulatory Orders: DME: Oxygen (Order) Location: None Selected Ordered By: Nadja Rhodes DME: Oxygen (Order) Location: None Selected Ordered By: Nadja Rhodes Sleep Study W Sleep Stage (Routine) Timeframe: 1 Day Facility: [facility] - Location: [facility] Ordered By: Nadja Rhodes Referrals: PAIN MANAGEMENT PROVIDERS [Provider Group, Pain Management] - 4-7 days [facility] [Outside] Miquel Alba DO [Physician, Orthopedics] - 1 week Jason Ariza FNP [Primary Care Provider] - 1-3 days Paul Webb MD [Physician, Endocrinology] - 1 week Discharge Diet: Cardiac and Diabetic Discharge Activity: Resume usual activity Patient Instructions: Hydrocodone/Acetaminophen (By mouth) (Vicodin, [place]), Cyclobenzaprine (By mouth) (Flexeril, Amrix, Fexmid, FusePaq Tabradol), Sevelamer (By mouth) (Renagel, Renvela), Insulin Lispro Protamine/Insulin Lispro (By injection) (Humalog Mix..., Opioid Safety, Patient Portal & Penny Instructions Activity Restrictions/Additional Instructions: Resume a cardiac diabetic diet. Resume usual activity. Keep your follow-up appointment with Dr. Alarcon tomorrow. Follow-up with Dr. Alba on 04/19/25 at 0945. Follow-up with Dr. Webb on 04/21/25 at 0930. Discharge Attestations Time Spent in Discharge Care*: greater than 30 min Quality Metrics Clinical Quality Measures [ No reported AMI, CVA or VTE this stay] Coding Level of Care Code Acute Code for Chg Fwd Diagnoses End stage renal disease on dialysis due to type 1 diabetes mellitus E10.22; N18.6; Z99.2
[2025-04-14] MEDS: HYDROmorphone 0.5 MG/0.5 ML INJ 1 MG IVP (10:34)
--- NOTE | 2025-04-14 10:36 | PC.SOCIAL ---
IMM Updated Updated pt on IMM. No questions voiced. Provided pt a copy. Initialed, dated, & timed a copy & placed in chart.
--- NOTE | 2025-04-14 11:55 | PC.NURSE ---
Patient was given all discharge instructions, referrals and prescriptions. Patient was informed about their oxygen being delivered to their home but patient decided to pick it up from HOME. Patient was stable during discharge. Patient's Iv was discontinued.
== END 2025-04-14 11:48 | disposition home or self-care (01) | DRG 304 ==
PROVIDERS: Internal Medicine Nephrology; Admitting Provider Internal Medicine; PCP Nurse Practitioner Family; Visit Provider Internal Medicine
DX: I16.0 Hypertensive urgency (principal); N18.6 End stage renal disease; I10 Essential (primary) hypertension; E10.22 Type 1 diabetes mellitus with diabetic chronic kidney disease; Z99.2 Dependence on renal dialysis; Z79.4 Long term (current) use of insulin; M54.50 Low back pain, unspecified; Z66 Do not resuscitate; F17.200 Nicotine dependence, unspecified, uncomplicated; F20.9 Schizophrenia, unspecified; D64.9 Anemia, unspecified; E83.39 Other disorders of phosphorus metabolism; Z98.1 Arthrodesis status
CPT/HCPCS: 36415; 36416; 72100; 76770; 80048; 80053; 81001; 82728; 82962; 83540; 83550; 83735; 84100; 85025; 86706; 86803; 87086; 87340; 90935; 96372; 96376; J0360; J1171; J1200; J1644; J1815; J3490; J7050; J9999; Q3014

== ENCOUNTER → 2025-04-19 09:46 | Outpatient (BNVA) | payer MEDICARE, MEDICAID, SELFPAY | PROVIDERS: PCP Family Medicine; Visit Provider Orthopaedic Surgery | DX: Z98.1 Arthrodesis status (principal) | CPT/HCPCS: 72100; 99213 ==

== ENCOUNTER 2025-04-21 20:00 | Outpatient (CLI) | payer MEDICARE, MEDICAID, SELFPAY | END 2025-04-21 20:01 | disposition home or self-care (01) | LOC: SLEEP 23:38 | PROVIDERS: PCP Family Medicine; Visit Provider Internal Medicine Pulmonary Disease | DX: G47.33 Obstructive sleep apnea (adult) (pediatric) (principal); G47.36 Sleep related hypoventilation in conditions classified elsewhere | CPT/HCPCS: 95810 ==

== ENCOUNTER 2025-04-30 13:12 | Outpatient (CLI) | payer MEDICARE, MEDICAID, SELFPAY ==
--- NOTE | 2025-04-30 13:20 | CTR_ITS ---
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 C/O severe low back pain x 3 weeks TECHNIQUE: Imaging protocol: Computed tomography of the lumbar spine without contrast. Radiation optimization: All CT scans at this facility use at least one of these dose optimization techniques: automated exposure control; mA and/or kV adjustment per patient size (includes targeted exams where dose is matched to clinical indication); or iterative reconstruction. COMPARISON: CT lumbar spine wo con* [id number] 11/21/2023 10:30 AM RADIATION DOSE METRICS: Total DLP (mGy-cm): 564.2 FINDINGS: Bones/joints: The patient is status post posterior spinal fusion from L3 through S2. Bilateral transpedicular screws are seen at L3, L4, and L5. There is a left transpedicular screw at S1. A portion of the right S1 transpedicular screw appears to have been removed. New transpedicular screws are identified at S2 and the patient appears to be status post bilateral sacroiliac fixation. Disc spacers are again identified at L3-L4, L4-L5, and L5-S1 with chronic appearing endplate erosive changes. The vertebral body heights and alignment are maintained. L1-L2: No significant disc bulge or herniation. No severe spinal canal stenosis. No significant neural foraminal narrowing. L2-L3: There is mild diffuse disc bulging without significant spinal canal or neural foraminal stenosis. L3-L4: Expected laminectomy changes are identified. Evaluation is limited secondary to streak artifact from the patient's hardware. There is a right-sided disc osteophyte complex which effaces the anterior thecal sac. There appears to be ovqc-xv-wdrxduvw spinal canal stenosis. There is moderate to severe right neural foraminal stenosis secondary to foraminal disc osteophyte ridging and facet hypertrophy. The left neural foramen appears patent. L4-L5: Expected laminectomy changes are identified. Evaluation is limited secondary to streak artifact from the patient's hardware. There appears to be moderate spinal canal stenosis secondary to disc osteophyte bulging and facet arthropathy. The neural foramina appear to be grossly patent. L5-S1: There is nuzh-wz-sypcssol spinal canal stenosis secondary to a central disc osteophyte complex. Expected laminectomy changes are identified. There is pyeb-hw-rtvhcsic right and mild left neural foraminal stenosis secondary to foraminal disc osteophyte bulging and facet hypertrophy. Pleural spaces: There is a partially imaged left pleural effusion. Soft tissues: Unremarkable. CT/CT lumbar spine wo con* [id number] IMPRESSION: 1. Postsurgical changes as described. 2. Evaluation of the spinal canal is limited at multiple levels secondary to streak artifact from the patient's hardware. Please see above for specific findings at each level. Clinical scenario should determine the need for MRI.
== END 2025-04-30 13:13 | disposition home or self-care (01) ==
LOC: RAD 13:12
PROVIDERS: PCP Family Medicine; Visit Provider Orthopaedic Surgery
DX: M48.061 Spinal stenosis, lumbar region without neurogenic claudication (principal); M25.78 Osteophyte, vertebrae; M51.369 Other intervertebral disc degeneration, lumbar region without mention of lumbar back pain or lower extremity pain; M47.816 Spondylosis without myelopathy or radiculopathy, lumbar region; Z98.1 Arthrodesis status
CPT/HCPCS: 72131

== ENCOUNTER 2025-05-01 20:38 | Emergency (ER) | payer MEDICARE, MEDICAID, SELFPAY ==
--- OUTSIDE RECORDS SUMMARY | 2025-04-23 09:05 | XMS_ITS | Encounter Summary ---
Author Organization [facility] Address [address] [place] [address] Care Team Providers Care Mcat Tutor Name Role Phone Duke Alarcon MD Primary Care Provider [phone] Reason for Visit * Radiology Services (Routine) - Closed Specialty Diagnoses / Procedures Referred By Contac t Referred To Contact Diagnoses ESRD (end stage renal disease) ([facility]) Procedures IR CATHETER REMOVAL Angélica Ny MD [address] [address] Phone: tel: fax: Referral ID Status Reason Start Date Expiration Date Visits Re quested Visits Authorized [id number] Closed 04/15/2025 07/14/2025 1 1 Encounter Details Date Type Department Care Team (Latest Contact Info) Description 04/23/2025 9:05 AM CDT - 04/23/2025 11:59 PM T Hospital Encounter [facility] Interventional Radiology [address] [place] [id number] Angélica Ny MD [address] [place] [address] Reji Sethi [address] [place] [address] Discharge Disposition: Home or Self Care Social History Tobacco Use Types Packs/Day Years Used Date Smoking Tobacco: Every Day Cigarettes Passive Smoke Exposure: Current Smokeless Tobacco: Never Alcohol Use Standard Drinks/Week Comments No 0 (1 standard drink = 0.6 oz pur e alcohol) Sex and Gender Information Value Date Recorded Sex Assigned at Not on file Legal Sex Male 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 5 varenicline tartrate (CHANTIX) 0.5 mg Tablet Take [...] tablet Take 1 Tablet by mouth. 5 naloxone (NARCAN) 4 mg/spray [place], Non-Aerosol EMERGENCY USE ONLY: Administer 1 spray (4 mg) in one nostril one time. May repeat in alternating nostrils every 2-3 min until responsive or EMS arrives. 2 Each 3 5 ondansetron (ZOFRAN ODT) 4 mg Tablet, Rapid Dissolve DISSOLVE 1 TABLET IN MOUTH EVERY 6 HOURS NEEDED FOR NAUSEA / EMESIS. DISSOLVE TABLET ON TOP OF TONGUE,THEN SWALLOW WITH SALIVA 5 spironolactone (ALDACTONE) 25 mg tablet Take [...] pressure daily 1 Each 4 Blood-Glucose Sensor (Freightoscom G7 Sensor) DeviceIndications: Type 1 diabetes mellitus with other kidney complication ([facility]) To continuously monitor blood sugar. Change sensor [...] per day glucose testing. 120 Each 4 cyclobenzaprine (FLEXERIL) 10 mg tablet 5 04/26/20 documented as of this encounter Progress Notes * Reji Sethi - 04/23/2025 10:00 AM CDT Request for Right IJ dialysis catheter removal. Catheter removed at the bedside. Pressure held. Sterile dressing applied. Cosigned by Fredi Ochoa MD at 04/23/2025 10:03 AM CDT documented in this encounter Plan of Treatment Upcoming Encounters Date Type Department Care Team (Late st Contact Info) Description 05/03/2025 9:20 AM CDT Office Visit [facility] Medicine [place] [address] [address] Duke Alarcon MD [address] [address] 05/26/2025 10:20 AM CDT Office Visit [facility] Ophthalmology [place] [address] [address] Kim Servin MD [address] [place] [address] 06/07/2025 9:00 AM CDT Appointment [facility] [address] [place] [address] Lawanda Mendoza, SUPERVISOR GEAR REPAIR [address] [facility] [address] [place] [address] 07/05/2025 9:40 AM CDT Office Visit [facility] [address] [facility] [address] [place] [address] Anne Duong, [facility] [address] [facility] [address] [place] [address] 09/27/2025 9:30 AM PREPAROLE COUNSELING AIDE Office Visit [facility] Medical Physics Teacher Optometry [facility] [address] [place] [address] Constantin Bales, OD [address] [place] [address] documented as of this encounter Visit Diagnoses Diagnosis ESRD (end stage renal disease) ([facility]) End stage renal disease documented in this encounter Care Teams Mcat Tutor Relationship Specialty Start Date End Date Duke Alarcon MD [address] [phone] PCP - General Family Practice 08/10/24 documented as of this encounter
--- OUTSIDE RECORDS SUMMARY | 2025-04-26 10:33 | XMS_ITS | Encounter Summary ---
Author Organization [facility] Address 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 Name Role Phone Duke Alarcon MD Primary Care Provider [phone] Reason for Visit * Reason Comments Chest Pain Encounter Details Date Type Department Care Team (Late st Contact Info) Description 04/26/2025 10:33 AM CDT - 04/26/2025 3:26 PM CDT Emergency [facility] Emergency Medicine [address] [place] [phone] Kelsea Cortez MD [address] [place] [phone] Hypertensive emergency (Primary Dx) Discharge Disposition: Acute Care Hospital Social History Tobacco Use Types Packs/Day Years Used Date Smoking Tobacco: Every Day Cigarettes Passive Smoke Exposure: Current Smokeless Tobacco: Never Alcohol Use Standard Drinks/Week Comments No 0 (1 standard drink = 0.6 oz pur e alcohol) Sex and Gender Information Value Date Recorded Sex Assigned at Not on file 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 Gender Identity Not on file Sexual Orientation Not on file documented as of this encounter Last Filed Vital Signs Vital Sign Reading Time Taken Comments Blood Pressure 156/82 04/26/2025 3:25 PM CDT Pulse 81 04/26/2025 3:25 PM CDT Temperature 36.6 C (97.9 F) 04/26/2025 3:25 PM CDT Respiratory Rate 20 04/26/2025 3:25 PM CDT Oxygen Saturation 100% 04/26/2025 3:25 PM CDT Inhaled Oxygen Concentration - - Weight 92.4 kg (203 lb 12.8 oz) 025 10:30 AM CDT Height 182.9 cm (6') 04/26/2025 10:30 AM CDT Body Mass Index 27.64 04/26/2025 10:30 AM CDT documented in this encounter Medications at [...] by mouth. 5 naloxone (NARCAN) 4 mg/spray Regent, Non-Aerosol EMERGENCY USE ONLY: Administer 1 spray [...] 1 diabetes mellitus with other kidney complication ([facility]) To continuously monitor blood sugar. Change sensor [...] Each 4 documented as of this encounter Progress Notes * Michael Smith RCP - 04/26/2025 10:38 AM CDT EKG completed. Results given to Dr. CORTEZ and scanned into Epic. documented in this encounter ED Notes * Radha Mahoney RN - 04/26/2025 3:50 PM CDT [facility] ER given update * Radha Mahoney RN - 04/26/2025 3:25 PM CDT [facility] EMS crew here. Report given. Sinus rhythm on monitor. Respirations even and unlabored on roomair. Labetalol drip remains off at this time. Verbal orders for EMS to restart the labetalol drip if systolic blood pressure is 190 or greater. Patient remains alert and oriented x 4. Patient belongings sent with patient. * Radha Mahoney RN - 04/26/2025 3:[address] Cortez notified that patient is complaining of increased chest and back pain increasing to a 9/10. Asking for something for pain. States nausea is better and was able to eat 100% of food * Radha Mahoney RN - 04/26/2025 2:[address] Cortez of blood pressure trends. Advises to stop the labetalol drip at this time * Radha Mahoney RN - 04/26/2025 1:53 PM CDT Meal tray provided asked patient to wait about 15 minutes before eating to give the zofran time to work. * Radha Mahoney RN - 04/26/2025 1:34 PM CDT Dietary called and notified of needing a low salt renal diet for patient per DR Cortez. * Radha Mahoney RN - 04/26/2025 1:30 PM CDT Updated patient on plan of care and wait time. Patient asking if he can have something to eat and anicotine patch. DR Cortez notified. * Radha Mahoney RN - 04/26/2025 1:23 PM CDT [facility] calling and advises that helicopter has declined transfer due to weather. Will wait on EMS unknown estimated time of arrival. * Radha Mahoney RN - 04/26/2025 1:00 PM CDT [facility] called and set up transfer for patient. DR Cortez advising that he wants patient to go by helicopter after speaking to patient and patient agrees to go by helicopter. [facility] advises that they will call back and update us. * Mayra Zendejas RN - 04/26/2025 12:[address] Cortez start decreasing Labetalol at this time. B/P 155/110. * Mayra Zendejas RN - 04/26/2025 11:01 AM CDT Pt has requested pain medication twice. Pt states when he was here the last time for the same symptoms that he was sent to [place], there they treated my blood pressure with pain medication and only 2 types of blood pressure pills * Mayra Zendejas RN - 04/26/2025 10:39 AM CDT Pt arrived via pov. C/O chest pain and shortness of breath starting at 0500 this am. Chest pressurewith sharp pains. Vomiting starting yesterday 6-7 times, continuing today. Lower back pain, no recent injuries. Port removed Saturday from right chest. Pt is a dialysis patient, had treatment on Saturday. Pt ambulatory to room. A/ox.3. * Kelsea Cortez MD - 04/26/2025 10:26 AM CDTAssociated Order(s): EKG 12 lead HISTORY OF PRESENT ILLNESS Hunter San, a 34 y.o. male presents to the ED with a Chief Complaint of Chest Pain Subjective Patient presented to the emergency department with complaint of chest pain, headache, nausea without vomiting and slight difficulty breathing, associated with elevated blood pressure of 230/132. Patient also stated that he was having lower back pain. Patient stated that he has taken all of his regular medications today, however he did not take insulin because he has not been eating well. He has been attempting to establish with pain management, however has not had success in getting anappointment. Patient has history of ESRD on hemodialysis and last session was on Saturday. Has history of HTN, anemia, IDDM, HLD, past substance abuse, although declines any active use right now except for marijuana. History provided by: The patient Arrived by: Private vehicle Arrived from: Home REVIEW OF SYSTEMS Review of Systems All other systems reviewed and are negative. PAST MEDICAL HISTORY REVIEWED MEDICAL: Patient has a past medical history of Anemia, Background diabetic retinopathy ([facility]), Diabetes (not taking his meds x 3years ), Essential hypertension, Hyperlipidemia, Methamphetamine use disorder, mild ([facility]) (12/06/2024), Renal disease, and Substance abuse ([facility]). SURGICAL: Patient has a past surgical history [...] antagonist, Lisinopril, and Venom-honey bee HOME MEDICATIONS Current Discharge Medication List CONTINUE these medications which have NOT CHANGED Details cyclobenzaprine (FLEXERIL) 10 mg tablet hydrALAZINE (APRESOLINE) 100 mg Tablet tablet Take 1 Tablet (100 mg) by mouth every 8 hours. Qty: 300 Tablet, Refills: 3 bumetanide (BUMEX) 1 mg tablet Take 1 Tablet by mouth. spironolactone (ALDACTONE) 25 mg tablet Take 1 Tablet (25 mg) by mouth daily. Qty: 30 Tablet, Refills: 2 atorvastatin (LIPITOR) 80 mg tablet Take 1 Tablet (80 mg) by mouth daily. Qty: 30 Tablet, Refills: 2 amLODIPine (NORVASC) 10 mg tablet Take 1 Tablet (10 mg) by mouth daily. Qty: 30 Tablet, Refills: 2 cloNIDine HCL (CATAPRES) 0.2 mg tablet Take 1 Tablet (0.2 mg) by mouth 3 times daily. Qty: 90 Tablet, Refills: 2 carvediloL (COREG) 25 mg tablet Take 1 Tablet (25 mg) by mouth every 12 hours. Qty: 60 Tablet, Refills: 2 ARIPiprazole (Abilify) 5 mg tablet Take 1 Tablet (5 mg) by mouth daily. Qty: 30 Tablet, Refills: 5 Associated Diagnoses: Paranoid schizophrenia (CMS/HCC) gabapentin (NEURONTIN) 100 mg capsule Take 1 Capsule (100 mg) by mouth 3 times daily. Qty: 90 Capsule, Refills: 2 Associated Diagnoses: History of lumbar spinal fusion buPROPion HCL (WELLBUTRIN XL) 150 mg Extended Release 24 hour tablet Take 1 Tablet (150 mg) by mouth daily. Qty: 30 Tablet, Refills: 2 Associated Diagnoses: Paranoid schizophrenia (CMS/HCC) amitriptyline (ELAVIL) 50 mg tablet Take 1 Tablet (50 mg) by mouth daily at bedtime. Qty: 30 Tablet, Refills: 2 Associated Diagnoses: Paranoid schizophrenia (CMS/HCC) aspirin (ECOTRIN EC) 81 mg Tablet, Delayed Release (E.C.) Take 1 Tablet (81 mg) by mouth daily. Qty: 30 Tablet, Refills: 0 insulin glargine (Lantus Solostar U-100 Insulin) 100 unit/mL pen syringe Inject 25 Units by subcutaneous injection 2 times daily. Qty: 15 mL, Refills: 0 insulin lispro (HumaLOG KwikPen Insulin) 100 unit/mL pen syringe Inject 10 units 3 times daily before meals plus a medium dose sliding scale. Qty: 15 mL, Refills: 0 varenicline tartrate (CHANTIX) 0.5 mg Tablet Take 0.5 mg by mouth 2 times daily. lidocaine-transparent dressing (LMX 4 PLUS) 4 % Kit Apply to affected area. diphenhydrAMINE (BENADRYL) 25 mg tablet Take 25 mg by mouth. naloxone (NARCAN) 4 mg/spray Regent, Non-Aerosol EMERGENCY USE ONLY: Administer 1 spray (4 mg) in one nostril one time. May repeat in alternating nostrils every 2-3 min until responsive or EMS arrives. Qty: 2 Each, Refills: 3 ondansetron (ZOFRAN ODT) 4 mg Tablet, Rapid Dissolve DISSOLVE 1 TABLET IN MOUTH EVERY 6 HOURS NEEDED FOR NAUSEA / EMESIS. DISSOLVE TABLET ON TOP OF TONGUE,THEN SWALLOW WITH SALIVA albuterol sulfate HFA 90 mcg/actuation aerosol inhaler Take 2 Puffs by inhalation every 6 hours as needed for Shortness of Breath. Qty: 8.5 Gram, Refills: 1 Associated Diagnoses: Shortness of breath Blood Pressure Monitor Kit To monitor blood pressure daily Qty: 1 Each, Refills: 0 Comments: Insurance preferance Associated Diagnoses: Uncontrolled hypertension Blood-Glucose Sensor (Dexcom G7 Sensor) Device To continuously monitor blood sugar. Change sensor every 10 days. 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) EPINEPHrine (EPIPEN) 0.3 mg/0.3 mL Auto-Injector Inject 0.3 mL (0.3 mg) by intramuscular injection 1 time daily as needed for Anaphylaxis. Qty: 1 Each, Refills: 0 blood sugar diagnostic Strip Needs 120 strips for 4 times per day Qty: 120 Strip, Refills: 0 Comments: One touch Yola flex machine at home. lancets 4 times per day testing insulin Qty: 120 Each, Refills: 0 alcohol Pads, Medicated 4 times per day glucose testing. Qty: 120 Each, Refills: 0 STOP taking these medications HYDROcodone-acetaminophen (NORCO) 5-325 mg tablet Comments: Reason for Stopping: traZODone (DESYREL) 50 mg tablet Comments: Reason for Stopping: benzonatate (TESSALON) 100 mg capsule Comments: Reason for Stopping: Objective PHYSICAL EXAM INITIAL VS BP: (!) 230/132 (04/26/25 1030), Heart Rate: (!) 105 bpm (04/26/25 1030), Resp: 16 (04/26/25 1030),Pulse: (!) 105 (04/26/25 1045), Temp: 98.1 ??F (36.7 ??C) (04/26/25 1030), Temp src: Tympanic (04/26/25 1030), SpO2: 98 % (04/26/25 1030), Height: 6' (182.9 cm) (04/26/25 1030), Weight: 92.4 kg (203 lb 12.8 oz) (04/26/25 1030), BMI (Calculated): (!) 27.62 (04/26/25 1030) No LMP for male patient. Physical Exam Vitals and nursing note reviewed. Constitutional: General: He is in acute distress. Appearance: Normal appearance. He is well-developed and normal weight. He is ill-appearing. HENT: Head: Normocephalic. Mouth/Throat: Mouth: Mucous membranes are moist. Eyes: Extraocular Movements: Extraocular movements intact. Conjunctiva/sclera: Conjunctivae normal. Pupils: Pupils are equal, round, and reactive to light. Neck: Vascular: No JVD. Cardiovascular: Rate and Rhythm: Normal rate and regular rhythm. Pulses: Normal pulses. Radial pulses are 2+ on the right side and 2+ on the left side. Heart sounds: Murmur heard. Pulmonary: Effort: Pulmonary effort is normal. No respiratory distress. Breath sounds: Normal breath sounds. Chest: Chest wall: No tenderness. Abdominal: Palpations: Abdomen is soft. Musculoskeletal: General: Normal range of motion. Cervical back: Normal range of motion and neck supple. Right lower leg: No tenderness. No edema. Left lower leg: No tenderness. No edema. Comments: Lower back with old surgical scar midline in the lumbar area. Lymphadenopathy: Cervical: No cervical adenopathy. Skin: General: Skin is warm and dry. Capillary Refill: Capillary refill takes less than 2 seconds. Coloration: Skin is not pale. Findings: No erythema. Neurological: General: No focal deficit present. Mental Status: He is alert and oriented to person, place, and time. Mental status is at baseline. Cranial Nerves: No cranial nerve deficit. Psychiatric: Mood and Affect: Mood normal. Behavior: Behavior normal. DIAGNOSTICS LAB: CBC WITH DIFFERENTIAL - Abnormal Result Value WBC 10.8 (*) RBC 3.19 (*) HEMOGLOBIN 10.1 (*) HEMATOCRIT 29.2 (*) MCV 91.5 MCH 31.7 MCHC 34.6 RDW 13.9 RDW-STDEV 46.0 PLATELETS 281 MPV 10.2 NEUTROPHILS 69 (*) LYMPHOCYTES 20 (*) MONOCYTES 8 EOSINOPHILS 2 BASOPHILS 1 IMMATURE GRANULOCYTES 1 NEUTROPHIL ABSOLUTE 7.41 (*) LYMPHOCYTE ABSOLUTE 2.18 MONOCYTE ABSOLUTE 0.85 (*) EOSINOPHIL ABSOLUTE 0.16 BASOPHILS ABSOLUTE 0.10 (*) IMMATURE GRANULOCYTES ABSOLUTE 0.06 COMPREHENSIVE METABOLIC PANEL - Abnormal SODIUM 134 (*) POTASSIUM 5.8 (*) CHLORIDE 93 (*) CO2 27 CALCIUM 10.7 (*) BUN 42 (*) CREATININE 6.56 (*) GLUCOSE 220 (*) TOTAL PROTEIN 7.2 ALBUMIN 3.6 BILIRUBIN TOTAL 0.3 ALKALINE PHOSPHATASE 95 AST 16 ALT 10 GFR 11 (*) ANION GAP 14 C-REACTIVE PROTEIN - Abnormal CRP 6.7 (*) TROPONIN BASELINE, 5TH GEN - Abnormal TROPONIN T, BASELINE 5TH GEN 182 (*) BRAIN NATRIURETIC PEPTIDE, BNP OR PROBNP - Abnormal PROBNP, N TERMINAL 32,589 (*) TROPONIN 2 HR, 5TH GEN - Abnormal TROPONIN T, 2 HR 5TH GEN 187 (*) DELTA 2HR TROPONIN T % 3 MAGNESIUM LEVEL - Normal MAGNESIUM 2.5 LIPASE - Normal LIPASE 40 TROPONIN 6 HR, 5TH GEN RADIOLOGY: XR CHEST PA OR AP 1 VW Radiologist Impression Impression: The cardiac silhouette appears enlarged with pulmonary vascular congestion. No pulmonary consolidation, pleural effusion or pneumothorax is identified. Old right clavicle fracture. EKG: PROCEDURES EKG 12 lead Date/Time: 04/26/2025 3:07 PM Performed by: Kelsea Cortez MD Authorized by: Kelsea Cortez MD ECG interpreted by ED Physician in the absence of a line driver: yes Rate: ECG rate: 108 ECG rate assessment: tachycardic Rhythm: Rhythm Origin: sinus [place]: QRS axis: Normal Intervals: normal QRSTT: QRSTT changes: Yes Comments: Nonspecific ST segment abnormalities which are unchanged since EKG from March 2025. MEDICAL DECISION MAKING AND PLAN OF CARE Medical Decision Making Patient is here due to hypertensive emergency and there was started on the labetalol drip after receiving a push of labetalol as well. Patient was also given a dose of hydromorphone 0.5 mg as other medications have not been successfulin the past in controlling patient's pain. Patient blood pressure slightly trended down, however when the infusion was slowed or stopped, patient's blood pressure would increase significantly. Patient has mild leukocytosis and hemoglobin of 10.1 with normal platelets. Patient's proBNP is elevated at 32,000, however not diagnostic since patient is a dialysis patient. Initial troponin of 182 which is close to patient's prior values and at 2 hours of 187 with a delta+3. Patient's potassium is 5.8, calcium 10.7 and GFR of 11 with a creatinine of 6.56 which is progressively trending down as per prior records. LFTs, lipase and magnesium within normal. CXR was showing cardiac silhouette enlargement with pulmonary vascular congestion. I reached out to [facility], since [facility] in [place] did not have any availability of beds,where patient usually goes for care and dialysis. Discussed the case with ER physician in [facility] and patient was accepted for ER to ER transfer. Patient otherwise staying stable at this time while continuing on the labetalol drip Amount and/or Complexity of Data Reviewed Labs: ordered. Radiology: ordered. ECG/medicine tests: ordered and independent interpretation performed. Risk OTC drugs. Prescription drug management. Clinical Scoring & Consults Medications Administered During the ED Stay from 04/26/2025 1027 to 04/26/2025 1515 Date/Time Order Dose Route Action 04/26/2025 1058 CDT sodium chloride flush injection 10 mL 10 mL IV Given 04/26/2025 1508 CDT sodium chloride flush injection 10 mL 10 mL IV Given 04/26/2025 1356 CDT sodium chloride flush injection 10 mL 10 mL IV Given 04/26/2025 1352 CDT sodium chloride flush injection 10 mL 10 mL IV Given 04/26/2025 1209 CDT sodium chloride flush injection 10 mL 10 mL IV Given 04/26/2025 1501 CDT labetaloL (NORMODYNE;TRANDATE) 200 mg in sodium chloride 0.9 % 200 mL infusion 0 mg/min IV Stopped 04/26/2025 1220 CDT labetaloL (NORMODYNE;TRANDATE) 200 mg in sodium chloride 0.9 % 200 mL infusion 0.5 mg/min IV Rate Change 04/26/2025 1206 CDT labetaloL (NORMODYNE;TRANDATE) 200 mg in sodium chloride 0.9 % 200 mL infusion 1 mg/min IV Rate Change 04/26/2025 1146 CDT labetaloL (NORMODYNE;TRANDATE) 200 mg in sodium chloride 0.9 % 200 mL infusion 1.5 mg/min IV Rate Change 04/26/2025 1132 CDT labetaloL (NORMODYNE;TRANDATE) 200 mg in sodium chloride 0.9 % 200 mL infusion 1 mg/min IV New Bag 04/26/2025 1058 CDT labetaloL (NORMODYNE;TRANDATE) 5 mg/mL injection 5 mg 5 mg IV Given 04/26/2025 1208 CDT HYDROmorphone (PF) (DILAUDID) injection 0.5 mg 0.5 mg IV Given 04/26/2025 1341 CDT nicotine (NICODERM CQ) 21 mg/24 hr transdermal patch 1 Patch 1 Patch Transdermal Applied 04/26/2025 1353 CDT ondansetron (ZOFRAN) 4 mg/2 mL injection 4 mg 4 mg IV Given 04/26/2025 1505 CDT HYDROmorphone (PF) (DILAUDID) injection 0.5 mg 0.5 mg IV Given Current Discharge Medication List CONTINUE these medications which have NOT CHANGED Details cyclobenzaprine (FLEXERIL) 10 mg tablet hydrALAZINE (APRESOLINE) 100 mg Tablet tablet Take 1 Tablet (100 mg) by mouth every 8 hours. Qty: 300 Tablet, Refills: 3 bumetanide (BUMEX) 1 mg tablet Take 1 Tablet by mouth. spironolactone (ALDACTONE) 25 mg tablet Take 1 Tablet (25 mg) by mouth daily. Qty: 30 Tablet, Refills: 2 atorvastatin (LIPITOR) 80 mg tablet Take 1 Tablet (80 mg) by mouth daily. Qty: 30 Tablet, Refills: 2 amLODIPine (NORVASC) 10 mg tablet Take 1 Tablet (10 mg) by mouth daily. Qty: 30 Tablet, Refills: 2 cloNIDine HCL (CATAPRES) 0.2 mg tablet Take 1 Tablet (0.2 mg) by mouth 3 times daily. Qty: 90 Tablet, Refills: 2 carvediloL (COREG) 25 mg tablet Take 1 Tablet (25 mg) by mouth every 12 hours. Qty: 60 Tablet, Refills: 2 ARIPiprazole (Abilify) 5 mg tablet Take 1 Tablet (5 mg) by mouth daily. Qty: 30 Tablet, Refills: 5 Associated Diagnoses: Paranoid schizophrenia (CMS/HCC) gabapentin (NEURONTIN) 100 mg capsule Take 1 Capsule (100 mg) by mouth 3 times daily. Qty: 90 Capsule, Refills: 2 Associated Diagnoses: History of lumbar spinal fusion buPROPion HCL (WELLBUTRIN XL) 150 mg Extended Release 24 hour tablet Take 1 Tablet (150 mg) by mouth daily. Qty: 30 Tablet, Refills: 2 Associated Diagnoses: Paranoid schizophrenia (CMS/HCC) amitriptyline (ELAVIL) 50 mg tablet Take 1 Tablet (50 mg) by mouth daily at bedtime. Qty: 30 Tablet, Refills: 2 Associated Diagnoses: Paranoid schizophrenia (CMS/HCC) aspirin (ECOTRIN EC) 81 mg Tablet, Delayed Release (E.C.) Take 1 Tablet (81 mg) by mouth daily. Qty: 30 Tablet, Refills: 0 insulin glargine (Lantus Solostar U-100 Insulin) 100 unit/mL pen syringe Inject 25 Units by subcutaneous injection 2 times daily. Qty: 15 mL, Refills: 0 insulin lispro (HumaLOG KwikPen Insulin) 100 unit/mL pen syringe Inject 10 units 3 times daily before meals plus a medium dose sliding scale. Qty: 15 mL, Refills: 0 varenicline tartrate (CHANTIX) 0.5 mg Tablet Take 0.5 mg by mouth 2 times daily. lidocaine-transparent dressing (LMX 4 PLUS) 4 % Kit Apply to affected area. diphenhydrAMINE (BENADRYL) 25 mg tablet Take 25 mg by mouth. naloxone (NARCAN) 4 mg/spray Regent, Non-Aerosol EMERGENCY USE ONLY: Administer 1 spray (4 mg) in one nostril one time. May repeat in alternating nostrils every 2-3 min until responsive or EMS arrives. Qty: 2 Each, Refills: 3 ondansetron (ZOFRAN ODT) 4 mg Tablet, Rapid Dissolve DISSOLVE 1 TABLET IN MOUTH EVERY 6 HOURS NEEDED FOR NAUSEA / EMESIS. DISSOLVE TABLET ON TOP OF TONGUE,THEN SWALLOW WITH SALIVA albuterol sulfate HFA 90 mcg/actuation aerosol inhaler Take 2 Puffs by inhalation every 6 hours as needed for Shortness of Breath. Qty: 8.5 Gram, Refills: 1 Associated Diagnoses: Shortness of breath Blood Pressure Monitor Kit To monitor blood pressure daily Qty: 1 Each, Refills: 0 Comments: Insurance preferance Associated Diagnoses: Uncontrolled hypertension Blood-Glucose Sensor (Dexcom G7 Sensor) Device To continuously monitor blood sugar. Change sensor every 10 days. 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) EPINEPHrine (EPIPEN) 0.3 mg/0.3 mL Auto-Injector Inject 0.3 mL (0.3 mg) by intramuscular injection 1 time daily as needed for Anaphylaxis. Qty: 1 Each, Refills: 0 blood sugar diagnostic Strip Needs 120 strips for 4 times per day Qty: 120 Strip, Refills: 0 Comments: One touch Yola flex machine at home. lancets 4 times per day testing insulin Qty: 120 Each, Refills: 0 alcohol Pads, Medicated 4 times per day glucose testing. Qty: 120 Each, Refills: 0 STOP taking these medications HYDROcodone-acetaminophen (NORCO) 5-325 mg tablet Comments: Reason for Stopping: traZODone (DESYREL) 50 mg tablet Comments: Reason for Stopping: benzonatate (TESSALON) 100 mg capsule Comments: Reason for Stopping: LAST VS BP: (!) 168/86 (04/26/25 1500), Heart Rate: 80 bpm (04/26/25 1500), Resp: 24 (04/26/25 1500), Pulse: 80 (04/26/25 1500), Temp: 98.1 ??F (36.7 ??C) (04/26/25 1030), Temp src: Tympanic (04/26/25 1030),SpO2: 100 % (04/26/25 1500) CLINICAL IMPRESSION Final diagnoses: [I16.1] Hypertensive emergency (Primary) DISPOSITION, EDUCATION AND MEDICATION RECONCILIATION Medications reconciled. See after visit summary for patient education on discharged patients. ED Disposition ED Disposition Transfer Condition Stable User Kelsea Cortez MD Date/Time SatApr 26, 2025 1:00 PM Comment -- ATTESTATION STATEMENTS documented in this encounter Plan of Treatment Upcoming Encounters Date Type Department Care Team (Late st Contact Info) Description 05/03/2025 9:20 AM CDT Office Visit [address] [phone] Duke Alarcon MD [address] [phone] 05/26/2025 10:20 AM CDT Office Visit [facility] [place] [address] [place] [address] Kim Servin MD [address] [place] [address] 06/07/2025 9:00 AM CDT Appointment [facility] [address] 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 [facility] [employer] Recapping Machine Operator Optometry [facility] [phone] [place] [address] Constantin Bales, OD [address] [place] [address] documented as of this encounter Procedures Procedure Name Priority Date/Time Associated Diagnosis Comments TELEMETRY REPORT 04/27/2025 3:33 PM CDT TELEMETRY REPORT 04/27/2025 7:58 AM CDT EKG 12-LEAD Stat 04/26/2025 3:07 PM CDT TROPONIN 2 HR, 5TH GEN Timed Study 04/26/2025 12:45 PM CDT XR CHEST PA OR AP 1 VW Stat 04/26/2025 11:43 AM CDT TROPONIN BASELINE, 5TH GEN Stat 04/26/2025 10:45 AM CDT CBC WITH DIFFERENTIAL Stat 04/26/2025 10:45 AM CDT C-REACTIVE PROTEIN Stat 04/26/2025 10 :45 AM CDT BRAIN NATRIURETIC PEPTIDE, BNP OR PROBNP Stat 04/26/2025 10:45 AM CDT MAGNESIUM LEVEL Stat 04/26/2025 10:45 AM CDT LIPASE Stat 04/26/2025 10:45 AM CDT COMPREHENSIVE METABOLIC PANEL Stat 04/26/2025 10:45 AM CDT documented in this encounter Results * TELEMETRY REPORT (04/27/2025 3:33 PM CDT) us Provider Scanning ECG ORDERABLES Final Result * TELEMETRY REPORT (04/27/2025 7:58 AM CDT) us Provider Scanning ECG ORDERABLES Final Result * EKG 12 lead (04/26/2025 3:07 PM CDT) Narrative Faye Márquez, SPRAY CEMENTER - 04/26/2025 3:07 PM CDT Kelsea Cortez MD 04/26/2025 3:15 PM EKG 12 lead Date/Time: 04/26/2025 3:07 PM Performed by: Kelsea Cortez MD Authorized by: Kelsea Cortez MD ECG interpreted by ED Physician in the absence of a line driver: yes Rate: ECG rate: 108 ECG rate assessment: tachycardic Rhythm: Rhythm Origin: sinus [place]: QRS axis: Normal Intervals: normal QRSTT: QRSTT changes: Yes Comments: Nonspecific ST segment abnormalities which are unchanged since EKG from March 2025. Procedure Note Kelsea Cortez MD - 04/26/2025 10:26 AM CDT HISTORY OF PRESENT ILLNESS Hunter San, a 34 y.o. male presents to the ED with a ChiefComplaint of Chest Pain Subjective Patient presented to the emergency department with complaint of chestpain, headache, nausea without vomiting and slight difficulty breathing,associated with elevated blood pressure of 230/132. Patient also statedthat he was having lower back pain. Patient stated that he has taken all of his regular medications today,however he did not take insulin because he has not been eating well. He has been attempting to establish with pain management, however has nothad success in getting an appointment. Patient has history of ESRD on hemodialysis and last session was onSaturday. Has history of HTN, anemia, IDDM, HLD, past substance abuse,although declines any active use right now except for marijuana. History provided by: The patient Arrived by: Private vehicle Arrived from: Home REVIEW OF SYSTEMS Review of Systems All other systems reviewed and are negative. PAST MEDICAL HISTORY REVIEWED MEDICAL: Patient has a past medical history of Anemia, Background diabeticretinopathy ([facility]), Diabetes (not taking his meds x 3years ),Essential hypertension, Hyperlipidemia, Methamphetamine use disorder, mild([facility]) (12/06/2024), Renal disease, and Substance abuse ([facility]). SURGICAL: Patient has a past surgical history that includes back surgery; prarteriovenous anastomosis open direct (Right, 01/18/2025); and retinalinjections. FAMILY: Patient's family history includes Diabetes in his maternal grandmother;Glaucoma in his maternal grandmother. SOCIAL: reports that he has been smoking cigarettes. He has been exposed totobacco smoke. He has never used smokeless tobacco. He reports currentdrug use. Drug: Marijuana. He reports being sexually active. He reportsthat he does not drink alcohol. No history on file. Social History Other Topics Concern Not on file ALLERGIES Julio inhibitors, Arb-angiotensin receptor antagonist, Lisinopril, andVenom-honey bee HOME MEDICATIONS Current Discharge Medication List CONTINUE these medications which have NOT CHANGED Details cyclobenzaprine (FLEXERIL) 10 mg tablet hydrALAZINE (APRESOLINE) 100 mg Tablet tablet Take 1 Tablet (100 mg) bymouth every 8 hours. Qty: 300 Tablet, Refills: 3 bumetanide (BUMEX) 1 mg tablet Take 1 Tablet by mouth. spironolactone (ALDACTONE) 25 mg tablet Take 1 Tablet (25 mg) by mouthdaily. Qty: 30 Tablet, Refills: 2 atorvastatin (LIPITOR) 80 mg tablet Take 1 Tablet (80 mg) by mouthdaily. Qty: 30 Tablet, Refills: 2 amLODIPine (NORVASC) 10 mg tablet Take 1 Tablet (10 mg) by mouth daily. Qty: 30 Tablet, Refills: 2 cloNIDine HCL (CATAPRES) 0.2 mg tablet Take 1 Tablet (0.2 mg) by mouth 3times daily. Qty: 90 Tablet, Refills: 2 carvediloL (COREG) 25 mg tablet Take 1 Tablet (25 mg) by mouth every 12hours. Qty: 60 Tablet, Refills: 2 ARIPiprazole (Abilify) 5 mg tablet Take 1 Tablet (5 mg) by mouth daily. Qty: 30 Tablet, Refills: 5 Associated Diagnoses: Paranoid schizophrenia (CMS/HCC) gabapentin (NEURONTIN) 100 mg capsule Take 1 Capsule (100 mg) by mouth 3times daily. Qty: 90 Capsule, Refills: 2 Associated Diagnoses: History of lumbar spinal fusion buPROPion HCL (WELLBUTRIN XL) 150 mg Extended Release 24 hour tablet Take1 Tablet (150 mg) by mouth daily. Qty: 30 Tablet, Refills: 2 Associated Diagnoses: Paranoid schizophrenia (CMS/HCC) amitriptyline (ELAVIL) 50 mg tablet Take 1 Tablet (50 mg) by mouth dailyat bedtime. Qty: 30 Tablet, Refills: 2 Associated Diagnoses: Paranoid schizophrenia (CMS/HCC) aspirin (ECOTRIN EC) 81 mg Tablet, Delayed Release (E.C.) Take 1 Tablet(81 mg) by mouth daily. Qty: 30 Tablet, Refills: 0 insulin glargine (Lantus Solostar U-100 Insulin) 100 unit/mL pen syringeInject 25 Units by subcutaneous injection 2 times daily. Qty: 15 mL, Refills: 0 insulin lispro (HumaLOG KwikPen Insulin) 100 unit/mL pen syringe Inject 10units 3 times daily before meals plus a medium dose sliding scale. Qty: 15 mL, Refills: 0 varenicline tartrate (CHANTIX) 0.5 mg Tablet Take 0.5 mg by mouth 2 timesdaily. lidocaine-transparent dressing (LMX 4 PLUS) 4 % Kit Apply to affectedarea. diphenhydrAMINE (BENADRYL) 25 mg tablet Take 25 mg by mouth. naloxone (NARCAN) 4 mg/spray Regent, Non-Aerosol EMERGENCY USE ONLY:Administer 1 spray (4 mg) in one nostril one time. May repeat inalternating nostrils every 2-3 min until responsive or EMS arrives. Qty: 2 Each, Refills: 3 ondansetron (ZOFRAN ODT) 4 mg Tablet, Rapid Dissolve DISSOLVE 1 TABLET INMOUTH EVERY 6 HOURS NEEDED FOR NAUSEA / EMESIS. DISSOLVE TABLET ON TOPOF TONGUE,THEN SWALLOW WITH SALIVA albuterol sulfate HFA 90 mcg/actuation aerosol inhaler Take 2 Puffs byinhalation every 6 hours as needed for Shortness of Breath. Qty: 8.5 Gram, Refills: 1 Associated Diagnoses: Shortness of breath Blood Pressure Monitor Kit To monitor blood pressure daily Qty: 1 Each, Refills: 0 Comments: Insurance preferance Associated Diagnoses: Uncontrolled hypertension Blood-Glucose Sensor (Dex[employer] G7 Sensor) Device To continuously monitorblood sugar. Change sensor every 10 days. 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) EPINEPHrine (EPIPEN) 0.3 mg/0.3 mL Auto-Injector Inject 0.3 mL (0.3 mg) byintramuscular injection 1 time daily as needed for Anaphylaxis. Qty: 1 Each, Refills: 0 blood sugar diagnostic Strip Needs 120 strips for 4 times per day Qty: 120 Strip, Refills: 0 Comments: One touch Yola flex machine at home. lancets 4 times per day testing insulin Qty: 120 Each, Refills: 0 alcohol Pads, Medicated 4 times per day glucose testing. Qty: 120 Each, Refills: 0 STOP taking these medications HYDROcodone-acetaminophen (NORCO) 5-325 mg tablet Comments: Reason for Stopping: traZODone (DESYREL) 50 mg tablet Comments: Reason for Stopping: benzonatate (TESSALON) 100 mg capsule Comments: Reason for Stopping: Objective PHYSICAL EXAM INITIAL VS BP: (!) 230/132 (04/26/25 1030), Heart Rate: (!) 105 bpm (04/26/25 1030),Resp: 16 (04/26/25 1030), Pulse: (!) 105 (04/26/25 1045), Temp: 98.1 F(36.7 C) (04/26/25 1030), Temp src: Tympanic (04/26/25 1030), SpO2: 98 %(04/26/25 103), Height: 6' (182.9 cm) (04/26/25 103), Weight: 92.4 kg(203 lb 12.8 oz) (04/26/25 103), BMI (Calculated): (!) 27.62 () No LMP for male patient. Physical Exam Vitals and nursing note reviewed. Constitutional: General: He is in acute distress. Appearance: Normal appearance. He is well-developed and normal weight.He is ill-appearing. HENT: Head: Normocephalic. Mouth/Throat: Mouth: Mucous membranes are moist. Eyes: Extraocular Movements: Extraocular movements intact. Conjunctiva/sclera: Conjunctivae normal. Pupils: Pupils are equal, round, and reactive to light. Neck: Vascular: No JVD. Cardiovascular: Rate and Rhythm: Normal rate and regular rhythm. Pulses: Normal pulses. Radial pulses are 2+ on the right side and 2+ on the left side. Heart sounds: Murmur heard. Pulmonary: Effort: Pulmonary effort is normal. No respiratory distress. Breath sounds: Normal breath sounds. Chest: Chest wall: No tenderness. Abdominal: Palpations: Abdomen is soft. Musculoskeletal: General: Normal range of motion. Cervical back: Normal range of motion and neck supple. Right lower leg: No tenderness. No edema. Left lower leg: No tenderness. No edema. Comments: Lower back with old surgical scar midline in the lumbar area. Lymphadenopathy: Cervical: No cervical adenopathy. Skin: General: Skin is warm and dry. Capillary Refill: Capillary refill takes less than 2 seconds. Coloration: Skin is not pale. Findings: No erythema. Neurological: General: No focal deficit present. Mental Status: He is alert and oriented to person, place, and time.Mental status is at baseline. Cranial Nerves: No cranial nerve deficit. Psychiatric: Mood and Affect: Mood normal. Behavior: Behavior normal. DIAGNOSTICS LAB: CBC WITH DIFFERENTIAL - Abnormal Result Value WBC 10.8 (*) RBC 3.19 (*) HEMOGLOBIN 10.1 (*) HEMATOCRIT 29.2 (*) MCV 91.5 MCH 31.7 MCHC 34.6 RDW 13.9 RDW-STDEV 46.0 PLATELETS 281 MPV 10.2 NEUTROPHILS 69 (*) LYMPHOCYTES 20 (*) MONOCYTES 8 EOSINOPHILS 2 BASOPHILS 1 IMMATURE GRANULOCYTES 1 NEUTROPHIL ABSOLUTE 7.41 (*) LYMPHOCYTE ABSOLUTE 2.18 MONOCYTE ABSOLUTE 0.85 (*) EOSINOPHIL ABSOLUTE 0.16 BASOPHILS ABSOLUTE 0.10 (*) IMMATURE GRANULOCYTES ABSOLUTE 0.06 COMPREHENSIVE METABOLIC PANEL - Abnormal SODIUM 134 (*) POTASSIUM 5.8 (*) CHLORIDE 93 (*) CO2 27 CALCIUM 10.7 (*) BUN 42 (*) CREATININE 6.56 (*) GLUCOSE 220 (*) TOTAL PROTEIN 7.2 ALBUMIN 3.6 BILIRUBIN TOTAL 0.3 ALKALINE PHOSPHATASE 95 AST 16 ALT 10 GFR 11 (*) ANION GAP 14 C-REACTIVE PROTEIN - Abnormal CRP 6.7 (*) TROPONIN BASELINE, 5TH GEN - Abnormal TROPONIN T, BASELINE 5TH GEN 182 (*) BRAIN NATRIURETIC PEPTIDE, BNP OR PROBNP - Abnormal PROBNP, N TERMINAL 32,589 (*) TROPONIN 2 HR, 5TH GEN - Abnormal TROPONIN T, 2 HR 5TH GEN 187 (*) DELTA 2HR TROPONIN T % 3 MAGNESIUM LEVEL - Normal MAGNESIUM 2.5 LIPASE - Normal LIPASE 40 TROPONIN 6 HR, 5TH GEN RADIOLOGY: XR CHEST PA OR AP 1 VW Radiologist Impression Impression: The cardiac silhouette appears enlarged with pulmonary vascular congestion. No pulmonary consolidation, pleural effusion or pneumothorax is identified. Old right clavicle fracture. EKG: PROCEDURES EKG 12 lead Date/Time: 04/26/2025 3:07 PM Performed by: Kelsea Cortez MD Authorized by: Kelsea Cortez MD ECG interpreted by ED Physician in the absence of a line driver: yes Rate: ECG rate: 108 ECG rate assessment: tachycardic Rhythm: Rhythm Origin: sinus [place]: QRS axis: Normal Intervals: normal QRSTT: QRSTT changes: Yes Comments: Nonspecific ST segment abnormalities which are unchanged since EKG fromMarch 2025. MEDICAL DECISION MAKING AND PLAN OF CARE Medical Decision Making Patient is here due to hypertensive emergency and there was started on thelabetalol drip after receiving a push of labetalol as well. Patient was also given a dose of hydromorphone 0.5 mg as other medicationshave not been successful in the past in controlling patient's pain. Patient blood pressure slightly trended down, however when the infusionwas slowed or stopped, patient's blood pressure would increasesignificantly. Patient has mild leukocytosis and hemoglobin of 10.1 with normalplatelets. Patient's proBNP is elevated at 32,000, however not diagnostic sincepatient is a dialysis patient. Initial troponin of 182 which is close to patient's prior values and at 2hours of 187 with a delta +3. Patient's potassium is 5.8, calcium 10.7 and GFR of 11 with a creatinineof 6.56 which is progressively trending down as per prior records. LFTs, lipase and magnesium within normal. CXR was showing cardiac silhouette enlargement with pulmonary vascularcongestion. I reached out to [facility], since [facility] in [place] did not haveany availability of beds, where patient usually goes for care anddialysis. Discussed the case with ER physician in [facility] and patient wasaccepted for ER to ER transfer. Patient otherwise staying stable at this time while continuing on thelabetalol drip Amount and/or Complexity of Data Reviewed Labs: ordered. Radiology: ordered. ECG/medicine tests: ordered and independent interpretation performed. Risk OTC drugs. Prescription drug management. Clinical Scoring & Consults Medications Administered During the ED Stay from 04/26/2025 1027 to04/26/2025 1515 Date/Time Order Dose Route Action 04/26/2025 1058 CDT sodium chloride flush injection 10 mL 10 mL IV Given 04/26/2025 1508 CDT sodium chloride flush injection 10 mL 10 mL IV Given 04/26/2025 1356 CDT sodium chloride flush injection 10 mL 10 mL IV Given 04/26/2025 1352 CDT sodium chloride flush injection 10 mL 10 mL IV Given 04/26/2025 1209 CDT sodium chloride flush injection 10 mL 10 mL IV Given 04/26/2025 1501 CDT labetaloL (NORMODYNE;TRANDATE) 200 mg in sodiumchloride 0.9 % 200 mL infusion 0 mg/min IV Stopped 04/26/2025 1220 CDT labetaloL (NORMODYNE;TRANDATE) 200 mg in sodiumchloride 0.9 % 200 mL infusion 0.5 mg/min IV Rate Change 04/26/2025 1206 CDT labetaloL (NORMODYNE;TRANDATE) 200 mg in sodiumchloride 0.9 % 200 mL infusion 1 mg/min IV Rate Change 04/26/2025 1146 CDT labetaloL (NORMODYNE;TRANDATE) 200 mg in sodiumchloride 0.9 % 200 mL infusion 1.5 mg/min IV Rate Change 04/26/2025 1132 CDT labetaloL (NORMODYNE;TRANDATE) 200 mg in sodiumchloride 0.9 % 200 mL infusion 1 mg/min IV New Bag 04/26/2025 1058 CDT labetaloL (NORMODYNE;TRANDATE) 5 mg/mL injection 5mg 5 mg IV Given 04/26/2025 1208 CDT HYDROmorphone (PF) (DILAUDID) injection 0.5 mg 0.5mg IV Given 04/26/2025 1341 CDT nicotine (NICODERM CQ) 21 mg/24 hr transdermal patch1 Patch 1 Patch Transdermal Applied 04/26/2025 1353 CDT ondansetron (ZOFRAN) 4 mg/2 mL injection 4 mg 4 mgIV Given 04/26/2025 1505 CDT HYDROmorphone (PF) (DILAUDID) injection 0.5 mg 0.5mg IV Given Current Discharge Medication List CONTINUE these medications which have NOT CHANGED Details cyclobenzaprine (FLEXERIL) 10 mg tablet hydrALAZINE (APRESOLINE) 100 mg Tablet tablet Take 1 Tablet (100 mg) bymouth every 8 hours. Qty: 300 Tablet, Refills: 3 bumetanide (BUMEX) 1 mg tablet Take 1 Tablet by mouth. spironolactone (ALDACTONE) 25 mg tablet Take 1 Tablet (25 mg) by mouthdaily. Qty: 30 Tablet, Refills: 2 atorvastatin (LIPITOR) 80 mg tablet Take 1 Tablet (80 mg) by mouthdaily. Qty: 30 Tablet, Refills: 2 amLODIPine (NORVASC) 10 mg tablet Take 1 Tablet (10 mg) by mouth daily. Qty: 30 Tablet, Refills: 2 cloNIDine HCL (CATAPRES) 0.2 mg tablet Take 1 Tablet (0.2 mg) by mouth 3times daily. Qty: 90 Tablet, Refills: 2 carvediloL (COREG) 25 mg tablet Take 1 Tablet (25 mg) by mouth every 12hours. Qty: 60 Tablet, Refills: 2 ARIPiprazole (Abilify) 5 mg tablet Take 1 Tablet (5 mg) by mouth daily. Qty: 30 Tablet, Refills: 5 Associated Diagnoses: Paranoid schizophrenia (CMS/HCC) gabapentin (NEURONTIN) 100 mg capsule Take 1 Capsule (100 mg) by mouth 3times daily. Qty: 90 Capsule, Refills: 2 Associated Diagnoses: History of lumbar spinal fusion buPROPion HCL (WELLBUTRIN XL) 150 mg Extended Release 24 hour tablet Take1 Tablet (150 mg) by mouth daily. Qty: 30 Tablet, Refills: 2 Associated Diagnoses: Paranoid schizophrenia (CMS/HCC) amitriptyline (ELAVIL) 50 mg tablet Take 1 Tablet (50 mg) by mouth dailyat bedtime. Qty: 30 Tablet, Refills: 2 Associated Diagnoses: Paranoid schizophrenia (CMS/HCC) aspirin (ECOTRIN EC) 81 mg Tablet, Delayed Release (E.C.) Take 1 Tablet(81 mg) by mouth daily. Qty: 30 Tablet, Refills: 0 insulin glargine (Lantus Solostar U-100 Insulin) 100 unit/mL pen syringeInject 25 Units by subcutaneous injection 2 times daily. Qty: 15 mL, Refills: 0 insulin lispro (HumaLOG KwikPen Insulin) 100 unit/mL pen syringe Inject 10units 3 times daily before meals plus a medium dose sliding scale. Qty: 15 mL, Refills: 0 varenicline tartrate (CHANTIX) 0.5 mg Tablet Take 0.5 mg by mouth 2 timesdaily. lidocaine-transparent dressing (LMX 4 PLUS) 4 % Kit Apply to affectedarea. diphenhydrAMINE (BENADRYL) 25 mg tablet Take 25 mg by mouth. naloxone (NARCAN) 4 mg/spray Regent, Non-Aerosol EMERGENCY USE ONLY:Administer 1 spray (4 mg) in one nostril one time. May repeat inalternating nostrils every 2-3 min until responsive or EMS arrives. Qty: 2 Each, Refills: 3 ondansetron (ZOFRAN ODT) 4 mg Tablet, Rapid Dissolve DISSOLVE 1 TABLET INMOUTH EVERY 6 HOURS NEEDED FOR NAUSEA / EMESIS. DISSOLVE TABLET ON TOPOF TONGUE,THEN SWALLOW WITH SALIVA albuterol sulfate HFA 90 mcg/actuation aerosol inhaler Take 2 Puffs byinhalation every 6 hours as needed for Shortness of Breath. Qty: 8.5 Gram, Refills: 1 Associated Diagnoses: Shortness of breath Blood Pressure Monitor Kit To monitor blood pressure daily Qty: 1 Each, Refills: 0 Comments: Insurance preferance Associated Diagnoses: Uncontrolled hypertension Blood-Glucose Sensor (Dexcom G7 Sensor) Device To continuously monitorblood sugar. Change sensor every 10 days. 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) EPINEPHrine (EPIPEN) 0.3 mg/0.3 mL Auto-Injector Inject 0.3 mL (0.3 mg) byintramuscular injection 1 time daily as needed for Anaphylaxis. Qty: 1 Each, Refills: 0 blood sugar diagnostic Strip Needs 120 strips for 4 times per day Qty: 120 Strip, Refills: 0 Comments: One touch Yola flex machine at home. lancets 4 times per day testing insulin Qty: 120 Each, Refills: 0 alcohol Pads, Medicated 4 times per day glucose testing. Qty: 120 Each, Refills: 0 STOP taking these medications HYDROcodone-acetaminophen (NORCO) 5-325 mg tablet Comments: Reason for Stopping: traZODone (DESYREL) 50 mg tablet Comments: Reason for Stopping: benzonatate (TESSALON) 100 mg capsule Comments: Reason for Stopping: LAST VS BP: (!) 168/86 (04/26/25 1500), Heart Rate: 80 bpm (04/26/25 1500), Resp:24 (04/26/25 1500), Pulse: 80 (04/26/25 1500), Temp: 98.1 F (36.7 C)(04/26/25 1030), Temp src: Tympanic (04/26/25 1030), SpO2: 100 % () CLINICAL IMPRESSION Final diagnoses: [I16.1] Hypertensive emergency (Primary) DISPOSITION, EDUCATION AND MEDICATION RECONCILIATION Medications reconciled. See after visit summary for patient education ondischarged patients. ED Disposition ED Disposition Transfer Condition Stable User Kelsea Cortez MD Date/Time SatApr 26, 2025 1:00 PM Comment -- ATTESTATION STATEMENTS Kelsea Cortez MD ECG ORDERABLES Final Result * (ABNORMAL) TROPONIN 2 HR, 5TH GEN (04/26/2025 12:45 PM CDT) TROPONIN T, 2 HR 5TH GEN 187(HH) <=15 ng/L 04/26/2025 1:18 PM CDT [facility] Comment:Hemolysis can falsel y decrease Troponin quantitation. DELTA 2HR TROPONIN T % 3 See Interp. % 04/26/2025 1:18 PM CDT [facility] Blood BLOOD SPECIMEN / Unknown Venipuncture / Unknown 04/26/2025 12:45 PM CDT 04/26/2025 12:58 PM CDT Narrative [facility] - 04/26/2025 1:18 PM CDT Troponin elevated. Delta not changing. Kelsea Cortez MD CHEMISTRY ORDERABLES Final Resu lt [facility] CLIA # [id number] [address] [place] [address] * XR CHEST PA OR AP 1 VW (04/26/2025 11:43 AM CDT) Anatomical Region Laterality Modality Chest Computed Radiogr aphy 04/26/2025 11:4 3 AM CDT Impressions 04/26/2025 11:46 AM CDT Impression: The cardiac silhouette appears enlarged with pulmonary vascular congestion. No pulmonary consolidation, pleural effusion or pneumothorax is identified. Old right clavicle fracture. Narrative 04/26/2025 11:46 AM CDT Exam: XR CHEST PA OR AP 1 VW Date/Time of Exam: 04/26/2025 11:43 AM Reason For Exam: Chest Pain. Diagnosis: See Reason for Exam. Comparison: April 11, 2025. Procedure Note Bryan Guevara MD - 04/26/2025 Exam: XR CHEST PA OR AP 1 VW Date/Time of Exam: 04/26/2025 11:43 AM Reason For Exam: Chest Pain. Diagnosis: See Reason for Exam. Comparison: April 11, 2025. Impression: The cardiac silhouette appears enlarged with pulmonary vascular congestion. No pulmonary consolidation, pleural effusion or pneumothorax is identified. Old right clavicle fracture. us Kelsea Cortez MD DIAGNOSTIC IMAGING ORDERABLES F inal Result * LIPASE (04/26/2025 10:45 AM CDT) LIPASE 40 13 - 60 U/L 04/26/2025 11:32 AM CDT [facility] Blood BLOOD SPECIMEN / Unknown Venipuncture / Unknown 04/26/2025 10:45 AM CDT 04/26/2025 11:00 AM CDT us Kelsea Cortez MD CHEMISTRY ORDERABLES Final Resu lt [facility] CLIA # [id number] [address] [place] [address] * (ABNORMAL) BRAIN NATRIURETIC PEPTIDE, BNP OR PROBNP (04/26/2025 10:45 AM CDT) PROBNP, N TERMINAL 32,589(H) 0 - 125 pg/mL 04/26/2025 11:32 AM CDT [facility] Comment: INTERPRETIVE COMMENT based on diagnosis: Diagnostic [...] 900 pg/mL >75 years: >1800 pg/mL Blood BLOOD SPECIMEN / Unknown Venipuncture / Unknown 04/26/2025 10:45 AM CDT 04/26/2025 11:00 AM CDT us Kelsea Cortez MD CHEMISTRY ORDERABLES Final Resu lt Performing Organization Address City/[facility]/ZIP Co de Phone Number [facility] CLIA # [id number] [address] [place] [phone] * (ABNORMAL) TROPONIN BASELINE, 5TH GEN (04/26/2025 10:45 AM CDT) TROPONIN T, BASELINE 5TH GEN 182(HH) <=15 ng/L 04/26/2025 11:33 AM CDT [facility] Blood BLOOD SPECIMEN / Unknown Venipuncture / Unknown 04/26/2025 10:45 AM CDT 04/26/2025 11:00 AM CDT Narrative [facility] - 04/26/2025 11:33 AM CDT Troponin elevated. us Kelsea Cortez MD CHEMISTRY ORDERABLES Final Resu lt Performing Organization Address [facility]/ZIP Co de Phone Number [facility] CLIA # [id number] [address] [place] [phone] * MAGNESIUM LEVEL (04/26/2025 10:45 AM CDT) MAGNESIUM 2.5 1.6 - 2.6 mg/dL 04/26/2025 11:32 AM CDT [facility] Blood BLOOD SPECIMEN / Unknown Venipuncture / Unknown 04/26/2025 10:45 AM CDT 04/26/2025 11:00 AM CDT us Kelsea Cortez MD CHEMISTRY ORDERABLES Final Resu lt Performing Organization Address City/[facility]/ZIP Co de Phone Number [facility] CLIA # [id number] [address] [place] [phone] * (ABNORMAL) C-REACTIVE PROTEIN (04/26/2025 10:45 AM CDT) Pathologist [facility] CRP 6.7(H) <5.0 mg/L 04/26/2025 11:32 AM [facility] Blood BLOOD SPECIMEN / Unknown Venipuncture / Unknown 04/26/2025 10:45 AM CDT 04/26/2025 11:00 AM CDT Kelsea Cortez MD CHEMISTRY ORDERABLES Final Resu lt [facility] CLIA # [id number] [address] [place] [address] * (ABNORMAL) COMPREHENSIVE METABOLIC PANEL (04/26/2025 10:45 AM CDT) [facility] SODIUM 134(L) 136 - 145 mmol/L 04/26/2025 11:32 AM [facility] POTASSIUM 5.8(H) 3.5 - 5.1 mmol/L 04/26/2025 11:32 AM [facility] CHLORIDE 93(L) 98 - 107 mmol/L 04/26/2025 11:32 AM [facility] CO2 27 22 - 29 mmol/L 04/26/2025 11:32 AM [facility] CALCIUM 10.7(H) 8.6 - 10.0 mg/dL 04/26/2025 11:32 AM [facility] BUN 42(H) 6 - 20 mg/dL 04/26/2025 11:32 AM [facility] CREATININE 6.56(H) 0.67 - 1.17 mg/dL 04/26/2025 11:32 AM [facility] GLUCOSE 220(H) 74 - 99 mg/dL 04/26/2025 11:32 AM [facility] TOTAL PROTEIN 7.2 6.6 - 8.7 g/dL 04/26/2025 11:32 AM [facility] ALBUMIN 3.6 3.5 - 5.2 g/dL 04/26/2025 11:32 AM [facility] BILIRUBIN TOTAL 0.3 0.0 - 1.2 mg/dL 04/26/2025 11:32 AM [facility] ALKALINE PHOSPHATASE 95 40 - 129 U/L 04/26/2025 11:32 AM [facility] AST 16 0 - 50 U/L 04/26/2025 11:32 AM [facility] ALT 10 0 - 50 U/L 04/26/2025 11:32 AM [facility] GFR 11(L) >=60 mL/min/1.7 3 sq meter 04/26/2025 11:32 AM [facility] Comment:eGFR calculated with 2020 CKD-EPI equation. Vegetarian diet, extremely high or low muscle mass, and may affect results. Cystatin C with Glomerular Filtration Rate is a suitable alternative for these patients. ANION GAP 14 5 - 20 mmol/L 04/26/2025 11:32 AM [facility] Blood BLOOD SPECIMEN / Unknown Venipuncture / Unknown 04/26/2025 10:45 AM CDT 04/26/2025 11:00 AM CDT us Kelsea Cortez MD CHEMISTRY ORDERABLES [id number] [address] [place] [phone] * (ABNORMAL) CBC WITH DIFFERENTIAL (04/26/2025 10:45 AM CDT) WBC 10.8(H) 4.2 - 9.1 K/uL 04/26/2025 11:05 [facility] RBC 3.19(L) 4.63 - 6.08 M/uL 04/26/2025 11:05 [facility] HEMOGLOBIN 10.1(L) 13.7 - 17.5 g/dL 04/26/2025 11:05 [facility] HEMATOCRIT 29.2(L) 40.1 - 51.0 % 04/26/2025 11:05 AM [facility] MCV 91.5 79.0 - 92.2 fL 04/26/2025 11:05 [facility] MCH 31.7 25.7 - 32.2 pg 04/26/2025 11:05 [facility] MCHC 34.6 32.3 - 36.5 g/dL 04/26/2025 11:05 [facility] RDW 13.9 11.0 - 14.5 % 04/26/2025 11:05 [facility] RDW-STDEV 46.0 36.9 - 56.9 fL 04/26/2025 11:05 [facility] PLATELETS 281 130 - 400 K/uL 04/26/2025 11:05 [facility] MPV 10.2 10.0 - 14.8 fL 04/26/2025 11:05 [facility] NEUTROPHILS 69(H) 34 - 68 % 04/26/2025 11:05 [facility] LYMPHOCYTES 20(L) 22 - 53 % 04/26/2025 11:05 [facility] MONOCYTES 8 5 - 12 % 04/26/2025 11:05 [facility] EOSINOPHILS 2 1 - 7 % 04/26/2025 11:05 [facility] BASOPHILS 1 0 - 1 % 04/26/2025 11:05 [facility] IMMATURE GRANULOCYTES 1 % 04/26/2025 11:05 [facility] NEUTROPHIL ABSOLUTE 7.41(H) 1.78 - 5.38 K/uL 04/26/2025 11:05 [facility] LYMPHOCYTE ABSOLUTE 2.18 1.20 - 3.40 K/uL 04/26/2025 11:05 [facility] MONOCYTE ABSOLUTE 0.85(H) 0.30 - 0.82 K/uL 04/26/2025 11:05 [facility] EOSINOPHIL ABSOLUTE 0.16 0.04 - 0.54 K/uL 04/26/2025 11:05 AM [facility]T [facility] BASOPHILS ABSOLUTE 0.10(H) 0.01 - 0.08 K/uL 04/26/2025 11:05 AM CDT [facility] IMMATURE GRANULOCYTES ABSOLUTE 0.06 K/uL 04/26/2025 11:05 AM CDT [facility] Blood BLOOD SPECIMEN / Unknown Venipuncture / Unknown 04/26/2025 10:45 AM CDT 04/26/2025 11:00 AM CDT us Kelsea Cortez MD HEMATOLOGY ORDERABLES [id number] [address] [place] [id number] documented in this encounter Visit Diagnoses Diagnosis Hypertensive emergency- Primary Unspecified essential hypertension documented in this encounter Administered Medications Inactive Administered Medications - up to 3 most recent administrations Medication Order MAR Action Action Date Dose Rate Site HYDROmorphone (PF) (DILAUDID) injection 0.5 mg 0.5 mg, IV, ONE TIME ONLY, 1 dose, On Sat04/26/25 at 1215, Routine Given 04/26/2025 12:08 PM CDT 0.5 mg HYDROmorphone (PF) (DILAUDID) injection 0.5 mg 0.5 mg, IV, ONE TIME ONLY, 1 dose, On Sat04/26/25 at 1515, Routine Given 04/26/2025 3:05 PM CDT 0.5 mg labetaloL (NORMODYNE;TRANDATE) 200 mg in sodium chloride 0.9 % 200 mL infusion 0-2 mg/min (0-120 mL/hr), IV, TITRATE, Starting on Sat04/26/25 at 1100, Until Sat04/26/25 at 1725, Should this infusion be titrated? Yes, Initial infusion dose? 1 mg/min, Titration Dose Increment? 0.5 mg/min, Titration Interval? 10 minutes, SBP Goal? 110-180 Rate Change 04/26/2025 12:20 PM CDT 0.5 mg/min 30 mL/hr Rate Change 04/26/2025 12:06 PM CDT 1 mg/min 60 mL/hr Rate Change 04/26/2025 11:46 AM CDT 1.5 mg/min 90 mL/hr labetaloL (NORMODYNE;TRANDATE) 5 mg/mL injection 5 mg 5 mg, IV, ONE TIME ONLY, 1 dose, On Sat04/26/25 at 1100, Routine Given 04/26/2025 10:58 AM CDT 5 mg nicotine (NICODERM CQ) 21 mg/24 hr transdermal patch 1 Patch 1 Patch, Transdermal, DAILY, First dose on Sat04/26/25 at 1345, Until Discontinued, Routine Applied 04/26/2025 1:41 PM CDT 1 Patch Shoulder, Right ondansetron (ZOFRAN) 4 mg/2 mL injection 4 mg 4 mg, IV, ONE TIME ONLY, 1 dose, On Sat04/26/25 at 1400, Routine Given 04/26/2025 1:53 PM CDT 4 mg sodium chloride flush injection 10 mL 10 mL, IV, EVERY 12 HOURS (BlD), First dose on Sat04/26/25 at 1045, Until Discontinued, Routine Given 04/26/2025 10:58 AM CDT 10 mL sodium chloride flush injection 10 mL 10 mL, IV, SEE ADMIN INSTRUCTIONS, Starting on Sat04/26/25 at 1039, Until Sat04/26/25 at 1725, Routine Given 04/26/2025 3:08 PM CDT 10 mL Given 04/26/2025 1:56 PM CDT 10 mL Given 04/26/2025 1:52 PM CDT 10 mL documented in this encounter Active and Recently Administered Medications Times are shown in CDT. Scheduled Medication Order 04/24/2025 04/25/2025 04/26/2025 HYDROmorphone (PF) (DILAUDID) injection 0.5 mg (COMPLETED) 0.5 mg, IV, ONE TIME ONLY, 1 dose, On Sat04/26/25 at 1215, Routine 1208 (Given - Provid er: Mayra Zendejas RN) HYDROmorphone (PF) (DILAUDID) injection 0.5 mg (COMPLETED) 0.5 mg, IV, ONE TIME ONLY, 1 dose, On Sat04/26/25 at 1515, Routine 1505 (Given - Provid er: Radha Mahoney RN) labetaloL (NORMODYNE;TRANDATE) 5 mg/mL injection 5 mg (COMPLETED) 5 mg, IV, ONE TIME ONLY, 1 dose, On Sat04/26/25 at 1100, Routine 1058 (Given - Provid er: Mayra Zendejas RN) nicotine (NICODERM CQ) 21 mg/24 hr transdermal patch 1 Patch 1 Patch, Transdermal, DAILY, First dose on Sat04/26/25 at 1345, Until Discontinued, Routine 1341 (Applied - Prov ider: aRdha Mahoney RN)1526 (Due: Removed - Provider: PROVIDER, DISCHARGE PATIENT - Comment: Time automatically adjusted from order being discontinued) ondansetron (ZOFRAN) 4 mg/2 mL injection 4 mg (COMPLETED) 4 mg, IV, ONE TIME ONLY, 1 dose, On Sat04/26/25 at 1400, Routine 1353 (Given - Provid er: Radha Mahoney RN) sodium chloride flush injection 10 mL 10 mL, IV, EVERY 12 HOURS (BlD), First dose on Sat04/26/25 at 1045, Until Discontinued, Routine 1058 (Given - Provid er: Mayra Zendejas RN) sodium chloride flush injection 10 mL 10 mL, IV, SEE ADMIN INSTRUCTIONS, Starting on Sat04/26/25 at 1039, Until Sat04/26/25 at 1725, Routine 1209 (Given - Provid er: Mayra Zendejas RN)1352 (Given - Provider: Radha Mahoney, JULIÁN)1356 (Given - Provider: Radha Mahoney RN)1508 (Given - Provider: Radha Mahoney RN) Continuous Medication Order 04/24/2025 04/25/2025 04/26/2025 labetaloL (NORMODYNE;TRANDATE) 200 mg in sodium chloride 0.9 % 200 mL infusion 0-2 mg/min (0-120 mL/hr), IV, TITRATE, Starting on Sat04/26/25 at 1100, Until Sat04/26/25 at 1725, Should this infusion be titrated? Yes, Initial infusion dose? 1 mg/min, Titration Dose Increment? 0.5 mg/min, Titration Interval? 10 minutes, SBP Goal? 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
--- OUTSIDE RECORDS SUMMARY | 2025-04-26 17:25 | XMS_ITS | Encounter Summary ---
Author Organization [facility] Address [address] [place] [address] Care Team Providers Care Social Work Associate Name Role Phone Duke Alarcon MD Primary Care Provider [phone] Reason for Visit * Reason Comments Hypertension * Auth/Cert (Routine) Specialty Diagnoses / Procedures Referred By Elizabet forbes Referred To Contact Emergency Medicine Diagnoses hypertensive crisis, chest pain, headache [facility] Emergency Department [address] [place] [address] Phone: tel: fax: Referral ID Status Reason Start Date Expiration Date Visits Re quested Visits Authorized [id number] 1 1 Encounter Details Date Type Department Care Team (Latest Contact Info) Description 04/26/2025 5:25 PM CDT - 04/27/2025 3:15 PM CDT Hospital Encounter [facility] [place] [facility] Neuro [facility] [address] [place] [address] Cruz Dinh DO [address] [place] [address] Ben Porter MD [address] [place] [address] Katherine Lyons MD [address] [place] [address] Tressa Morel MD [address] [place] [address] Hypertensive emergency Discharge Disposition: Home or Self Care Social History Tobacco Use Types Packs/Day Years Used Date Smoking Tobacco: Every Day Cigarettes Passive Smoke Exposure: Current Smokeless Tobacco: Never Alcohol Use Standard Drinks/Week Comments No 0 (1 standard drink = 0.6 oz pur e alcohol) Sex and Gender Information Value Date Recorded Sex Assigned at Not on file Legal Sex Male 3:23 AM [employer] Gender Identity Not on file Sexual Orientation Not on file documented as of this encounter Last Filed Vital Signs Vital Sign Reading Time Taken Comments Blood Pressure 128/74 04/27/2025 3:00 PM CDT Pulse 79 04/27/2025 2:15 PM CDT Temperature 36.9 C (98.4 F) 04/27/2025 3:00 PM CDT Respiratory Rate 22 04/27/2025 2:15 PM CDT Oxygen Saturation 99% 04/27/2025 2:15 PM CDT Inhaled Oxygen Concentration - - Weight 89.7 kg (197 lb 12 oz) 04/27/2025 12:20 P M CDT Height 182.9 cm (6') 04/26/2025 8:48 PM CDT Body Mass Index 26.82 04/26/2025 8:48 PM CDT documented in this encounter Discharge Summaries * Katherine Lyons MD - 04/27/2025 1:34 PM CDT [facility] Hospitalist- Discharge Summary Vida San 34 y.o. male 1990 CSN: [id number] Date of Admission: 04/26/2025 Date of Discharge: 04/27/2025 LOS: 1 day Discharging Physician: Katherine Lyons MD PCP: Duke Alarcon MD Code Status at Discharge: NO CPR (In Event of Cardiopulmonary Arrest) Dispo: Home Labs and studies from this hospitalization needing follow up: None Follow up with PCP: Follow-up: You must follow up with Duke Alarcon MD in 3-5 days Discharge Condition: improved to baseline Primary Discharge Diagnosis: Hypertensive emergency Other Active medical issues also addressed during this admission: Active Hospital Problems Diagnosis Acute on chronic low back pain Hyperkalemia Encounter for tobacco use cessation counseling Hypertensive emergency Paranoid schizophrenia ([facility]) History of lumbar spinal fusion Tobacco use disorder Secondary hyperparathyroidism of renal origin Hyperlipidemia, unspecified Dependence on renal dialysis Anemia, unspecified ESRD (end stage renal disease) ([facility]) Chronic combined systolic (congestive) and diastolic (congestive) heart failure ([facility]) Cardiomyopathy, unspecified ([facility]) 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 ([facility]) Resolved Hospital Problems No resolved problems to display. HOSPITAL COURSE: Please see H and P for full details on admission, symptoms and initial care. Vida San, a 34-year-old male with a history of type 1 diabetes mellitus, end-stage renal disease on hemodialysis, secondary hyperparathyroidism, hypertension, hyperlipidemia, combined systolic and diastolic heart failure, nonischemic cardiomyopathy, and schizophrenia, was admitted on 04/26/2025for management of a hypertensive emergency. He presented with symptoms including chest pain, shortness of breath, headache, nausea, and vomiting, and was found to have a blood pressure of 230/132 mmHg. Initial management in the emergency department included labetalol, which was later transitioned to a Cardene drip due to persistent hypertension. Diagnostic workup included labs showing elevated proBNP, flat troponin levels, hyperkalemia, and a chest X-ray revealing cardiomegaly with pulmonary vascular congestion. An EKG showed normal sinus rhythm with peaked T waves, indicative of hyperkalemia. The primary diagnosis of hypertensive emergency was managed with a Cardene drip, which was continued during hospitalization, and his home antihyper tensives were resumed with a plan to wean off the Cardene drip. Spironolactone was held due to hyperkalemia, and Lokelma was administered to address the elevated potassium levels. During the admission, other health issues were addressed, including chronic low back pain managed with gabapentin, lidocaine patches, and as-needed oxycodone and morphine. His type 1 diabetes was managed with insulin glargine and lispro, following a hyperglycemia pathway. Schizophrenia was managed with aripiprazole, amitriptyline, and bupropion. The patient was counseled on smoking cessation due to his tobacco use disorder. Nephrology was consulted for his ESRD, and he continued on his dialysisschedule. Overall, the hospitalization focused on managing the hypertensive emergency and addressing his complex comorbidities. His blood preessures improved and stable off of Cardene gtt. Patient was therefore discharged home with close PCP follow up in 3-5 days PCP COMMUNICATION : Duke Alarcon MD via [employer] ([employer]) communication MEDICATION CHANGES (significant):See below MEDICATION RECONCILIATION: Current and discharge medications reviewed and reconciled: Yes Consultants: IP CONSULT TO NEPHROLOGY Procedures performed: 04/27 1252 Note By: Tessa Fagan, RN 04/27 408 Note By: Urvashi White FNP DISCHARGE MEDICATIONS: Medication List CONTINUE taking these medications albuterol sulfate 90 mcg/Actuation inhaler Take 2 Puffs by inhalation every 6 hours as needed for Shortness of Breath. Signed by: Nurse Practitioner Deangelo SnyderCastle Hayne Quantity: 8.5 Gram Refills: 1 amitriptyline 50 mg tablet Commonly known as: ELAVIL Take 1 Tablet (50 mg) by mouth daily at bedtime. Signed by: Dr. Nicola Alarcon Quantity: 30 Tablet Refills: 2 amLODIPine 10 mg tablet Commonly known as: NORVASC Take 1 Tablet (10 mg) by mouth daily. Signed by: Dr. Nicola Alarcon Quantity: 30 Tablet Refills: 2 ARIPiprazole 5 mg tablet Commonly known as: Abilify Take 1 Tablet (5 mg) by mouth daily. Signed by: Dr. Nicola Alarcon Quantity: 30 Tablet Refills: 5 aspirin 81 mg Tablet, Delayed Release (E.C.) Commonly known as: ECOTRIN EC Take 1 Tablet (81 mg) by mouth daily. Signed by: Dr. Clarence Recio Quantity: 30 Tablet Refills: 0 atorvastatin 80 mg tablet Commonly known as: LIPITOR Take 1 Tablet (80 mg) by mouth daily. Signed by: Dr. Nicola Alarcon Quantity: 30 Tablet Refills: 2 Blood Pressure Monitor Kit To monitor blood pressure daily Signed by: Nurse Practitioner Deangelo Vargas Quantity: 1 Each Refills: 0 blood sugar diagnostic Strip Needs 120 strips for 4 times per day Signed by: Dr. Kimberlee Dailey Quantity: 120 Strip Refills: 0 Blood-Glucose Sensor Device Commonly known as: Dexcom G7 Sensor To continuously monitor blood sugar. Change sensor every 10 days. Signed by: Nurse Ernie Balls Quantity: 3 Each Refills: 8 bumetanide 1 mg tablet Commonly known as: BUMEX Take 1 Tablet by mouth. Refills: 0 buPROPion HCL 150 mg Extended Release 24 hour tablet Commonly known as: WELLBUTRIN XL Take 1 Tablet (150 mg) by mouth daily. Signed by: Dr. Nicola Alarcon Quantity: 30 Tablet Refills: 2 carvediloL 25 mg tablet Commonly known as: COREG Take 1 Tablet (25 mg) by mouth every 12 hours. Signed by: Dr. Nicola Alarcon Quantity: 60 Tablet Refills: 2 cloNIDine HCL 0.2 mg tablet Commonly known as: CATAPRES Take 1 Tablet (0.2 mg) by mouth 3 times daily. Signed by: Dr. Nicola Alarcon Quantity: 90 Tablet Refills: 2 diphenhydrAMINE 25 mg tablet Commonly known as: BENADRYL Take 25 mg by mouth. Refills: 0 gabapentin 100 mg capsule Commonly known as: NEURONTIN Take 1 Capsule (100 mg) by mouth 3 times daily. Signed by: Dr. Nicola Alarcon Quantity: 90 Capsule Refills: 2 hydrALAZINE 100 mg Tablet tablet Commonly known as: APRESOLINE Take 1 Tablet (100 mg) by mouth every 8 hours. Signed by: Nurse Practitioner Nicola Mendoza Quantity: 300 Tablet Refills: 3 insulin lispro 100 unit/mL pen syringe Commonly known as: HumaLOG KwikPen Insulin Inject 10 units 3 times daily before meals plus a medium dose sliding scale. Signed by: Dr. Nicola Seymour Quantity: 15 mL Refills: 0 lancets 4 times per day testing insulin Signed by: Dr. Kimberlee Dailey Quantity: 120 Each Refills: 0 Lantus Solostar U-100 Insulin 100 unit/mL (3 mL) solution for injection Inject 25 Units by subcutaneous injection 2 times daily. Signed by: Nurse Practitioner Deangelo Kennedy Quantity: 15 mL Refills: 0 Generic drug: insulin glargine spironolactone 25 mg tablet Commonly known as: ALDACTONE Take 1 Tablet (25 mg) by mouth daily. Signed by: Dr. Nicola Alarcon Quantity: 30 Tablet Refills: 2 traZODone 50 mg tablet Commonly known as: DESYREL Take 50 mg by mouth daily at bedtime. Refills: 0 ASK your doctor about these medications alcohol Pads, Medicated 4 times per day glucose testing. Signed by: Dr. Kimberlee Dailey Quantity: 120 Each Refills: 0 EPINEPHrine 0.3 mg/0.3 mL Auto-Injector Commonly known as: EPIPEN Inject 0.3 mL (0.3 mg) by intramuscular injection 1 time daily as needed for Anaphylaxis. Signed by: Dr. Nicola Seymour Quantity: 1 Each Refills: 0 lidocaine-transparent dressing 4 % Kit Commonly known as: LMX 4 PLUS Apply to affected area. Refills: 0 naloxone 4 mg/spray Miramonte, Non-Aerosol Commonly known as: NARCAN EMERGENCY USE ONLY: Administer 1 spray (4 mg) in one nostril one time. May repeat in alternating nostrils every 2-3 min until responsive or EMS arrives. Signed by: Amy Null Quantity: 2 Each Refills: 3 ondansetron 4 mg Tablet, Rapid Dissolve Commonly known as: ZOFRAN ODT DISSOLVE 1 TABLET IN MOUTH EVERY 6 HOURS NEEDED FOR NAUSEA / EMESIS. DISSOLVE TABLET ON TOP OF TONGUE,THEN SWALLOW WITH SALIVA Refills: 0 varenicline tartrate 0.5 mg Tablet Commonly known as: CHANTIX Take 0.5 mg by mouth 2 times daily. Refills: 0 Future Appointments Date Time Provider Department Center 04/27/2025 2:45 PM [facility] CT1 CTSCAN [facility] 04/29/2025 1:40 PM Deysi Vargas FNP [place] [id number] 05/03/2025 9:20 AM Duke Alarcon MD [place] [address] 05/26/2025 10:20 AM Kim Servin MD SPRGES[facility] 06/07/2025 9:00 AM SPRG OP ECHO 5 HECHO [facility] 07/05/2025 9:40 AM Anne Duong FNP [facility] 09/27/2025 9:30 AM Constantin Bales, THIAGO [id number] [facility] [place] Activity level: up as tolerated Diet: DIET RENAL 1800 ML Fluid,; 2GM Sodium (Low), Wound Care: Not Applicable DISCHARGE EXAM: BP 121/67 Pulse 73 Temp 98.5 ??F (36.9 ??C) Resp 16 Ht 6' (1.829 m) Wt 89.7 kg (197 lb 12oz) SpO2 97% BMI 26.82 kg/m?? Last documented weight: Weight: 89.7 kg (197 lb 12 oz) (04/27/25 1220) General: alert, in no distress, cooperative Neurologic: Grossly normal HEENT: atraumatic, Normocephalic, without obvious abnormality Lungs: clear to auscultation bilaterally, normal respiratory effort Heart: normal rate and regular rhythm, S1 and S2 normal Abdomen: Soft, non-tender. Bowel sounds normal. Extremities: extremities normal, atraumatic, no cyanosis or edema, intact distal pulses, moves all extremities equally Skin: negative Home Healthcare Is this patient being discharged with Home Health? No Total time spent on discharge services today including examining and educating the patient and available family members, writing prescriptions and reviewing the discharge medication list, documentingthis discharge summary and coordinating outpatient care and follow up required >30 minutes. documented in this encounter Discharge Instructions * Discharge Instructions* Bridget Minaya RN - 04/27/2025 11:58 AM CDT * Attachments The following attachments cannot be sent through Care Everywhere. * Hypertension: Emergency or Urgency ([place]) * Hypertension ([place]) * Blood Pressure Test: Home ([place]) documented in this encounter Medications at Time [...] by mouth. 5 naloxone (NARCAN) 4 mg/spray Miramonte, Non-Aerosol EMERGENCY USE ONLY: Administer 1 spray [...] 1 diabetes mellitus with other kidney complication ([facility]) To continuously monitor blood sugar. Change sensor [...] as of this encounter Progress Notes * Maureen Ramos RN - 04/27/2025 7:12 PM CDT Chart accessed by this nurse after pt discharge due to phone call from pt asking about his blood pressure medication prescriptions. He was under the impression that Dr. Lyons was given him new prescription. Doctor contacted, situation discussed. No new prescriptions at this time. Nurse called Pt back, explained situation. documented in this encounter H&P Notes * Ben Porter MD - 04/26/2025 7:22 PM CDT Images from the original note were not included. Your life is our life's work [facility] Hospitalist-Ben Porter MD History and physical- date of admission: 04/26/2025 Patient name: Vida San Date of : 1990 CSN number: [id number] PCP: Duke Alarcon MD Chief Complaint: Chief Complaint Patient presents with Hypertension History of present illness: Pt seen and examined at the bedside Vida San is a 34 y.o. male with PHM of type 1 diabetes mellitus, ESRD on HD, secondary hyperparathyroidism, HTN, HLD, combined systolic and diastolic heart failure, nonischemic cardiomyopathy, anemia of chronic disease, chronic low back pain, status post lumbar spine fusion, methamphetamine use disorder, tobacco use disorder, schizophrenia who was transferred from [facility] to [facility] on 04/26/2025 for further management of hypertensive emergency. He presented to the ER with complaints of chest pain, shortness of breath, headache, nausea with vomiting. He was noted to have a blood pressure of 230/132 mmHg, heart rate of 105 bpm. He was given labetalol push. Labs revealed WBC of 10.8. Anemia with a hemoglobin of 10.1. proBNP at 2 32,000. Troponin trended flat 182-187. Hyperkalemia with a potassium of 5.8. Calcium slightly elevated at 10.7. Glucose at 220. Chest x-ray was done which revealed cardiomegaly with pulmonary vascular congestion. He was given Zofran, 2 doses of Dilaudid 0.5 mg, fentanyl 100 mcg. He was started on a labetalol drip but was eventually stopped as his blood pressure dropped. His symptoms have improved manage his blood pressure improved. On arrival, His blood pressure started trending up again and was at 198/121 mmHg. He was started on Cardene drip. Hospitalist was consulted for admission and further management of hypertensive emergency. Spoke to the ER physician over the phone and discussed the current ER course. Examined the patient at bedside. She reports that he started having worsening low back pain over the last 3 weeks. He reports that he followed up with his spine surgeon and had a x-ray done which wasunremarkable. Today, he started having sharp substernal chest pain of intensity 8/10 accompanied bypalpitations, nausea. He also noticed shortness of breath. Reports severe headache in the frontal and both sides of the head. Reports that the pain is constant and also reports blurring of vision. Reports nausea. Denies any fevers or chills. Denies cough, sputum production, abdominal pain, vomiting, burning micturition, leg pain or swelling. Past medical history: Past Medical History: Diagnosis Date Anemia Background diabetic retinopathy ([facility]) Diabetes not taking his meds x 3years can't afford discussed [facility] Essential hypertension Hyperlipidemia Methamphetamine use disorder, mild ([facility]) 12/06/2024 Renal disease Substance abuse ([facility]) Active chronic medical issues that patient has been followed for as outpatient: Patient Active Problem List Diagnosis Code Malignant hypertension I10 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 ([facility]) E10.29 Angioedema T78.3XXA Combined forms of age-related cataract of both eyes H25.813 ESRD (end stage renal disease) ([facility]) N18.6 Chronic combined systolic (congestive) and diastolic (congestive) heart failure ([facility]) I50.42 Anasarca R60.1 Hypoalbuminemia E88.09 HFrEF (heart failure with reduced ejection fraction) ([facility]) I50.20 Methamphetamine use disorder, mild ([facility]) F15.10 Cardiomyopathy, unspecified ([facility]) I42.9 Anemia, unspecified D64.9 Tobacco use disorder F17.200 Paranoid schizophrenia ([facility]) F20.0 History of lumbar spinal fusion Z98.1 Allergy, unspecified, initial encounter T78.40XA Anaphylactic shock, unspecified, initial encounter T78.2XXA Coagulation defect, unspecified D68.9 Dependence on renal dialysis Z99.2 Disorder of phosphorus metabolism, unspecified E83.30 Encounter for screening for respiratory tuberculosis Z11.1 Hyperlipidemia, unspecified E78.5 Hypertensive heart and chronic kidney disease with heart failure and with stage 5 chronic kidney disease, or end stage renal disease ([facility]) I13.2 Iron deficiency anemia, unspecified D50.9 Nephrotic syndrome with unspecified morphologic changes N04.9 Nicotine dependence, cigarettes, uncomplicated F17.210 Pain, unspecified R52 Persistent proteinuria R80.1 Secondary hyperparathyroidism of renal origin N25.81 Need for acute hemodialysis Z99.2 Hypervolemia E87.70 Hypertensive emergency I16.1 Acute on chronic low back pain M54.50, G89.29 Hyperkalemia E87.5 Past surgical history: Past Surgical History: Procedure Laterality Date HX BACK SURGERY Was in Feb, 2014 for slipped discs in lumbar back. HX RETINAL INJECTIONS AK ARTERIOVENOUS ANASTOMOSIS OPEN DIRECT Right 01/18/2025 Fistula performed by Amy Null MD at [facility] Current medications: Prior to Admission Medications Prescriptions Last Dose Informant Patient Reported? Taking? ARIPiprazole (Abilify) 5 mg tablet Unknown No No Sig: Take 1 Tablet (5 mg) by mouth daily. Blood Pressure Monitor Kit Unknown No No Sig: To monitor blood pressure daily Blood-Glucose Sensor (TechflakesGB G7 Sensor) Device Unknown No No Sig: To continuously monitor blood sugar. Change sensor every 10 days. EPINEPHrine (EPIPEN) 0.3 mg/0.3 mL Auto-Injector Unknown No No Sig: Inject 0.3 mL (0.3 mg) by intramuscular injection 1 time daily as needed for Anaphylaxis. Patient not taking: Reported on 04/15/2025 albuterol sulfate HFA 90 mcg/actuation aerosol inhaler Unknown No No Sig: Take 2 Puffs by inhalation every 6 hours as needed for Shortness of Breath. alcohol Pads, Medicated Unknown No No Si times per day glucose testing. Patient not taking: Reported on 04/15/2025 amLODIPine (NORVASC) 10 mg tablet Unknown No No Sig: Take 1 Tablet (10 mg) by mouth daily. amitriptyline (ELAVIL) 50 mg tablet Unknown No No Sig: Take 1 Tablet (50 mg) by mouth daily at bedtime. aspirin (ECOTRIN EC) 81 mg Tablet, Delayed Release (E.C.) Unknown No No Sig: Take 1 Tablet (81 mg) by mouth daily. atorvastatin (LIPITOR) 80 mg tablet Unknown No No Sig: Take 1 Tablet (80 mg) by mouth daily. blood sugar diagnostic Strip Unknown No No Sig: Needs 120 strips for 4 times per day buPROPion HCL (WELLBUTRIN XL) 150 mg Extended Release 24 hour tablet Unknown No No Sig: Take 1 Tablet (150 mg) by mouth daily. bumetanide (BUMEX) 1 mg tablet Unknown Yes No Sig: Take 1 Tablet by mouth. carvediloL (COREG) 25 mg tablet Unknown No No Sig: Take 1 Tablet (25 mg) by mouth every 12 hours. cloNIDine HCL (CATAPRES) 0.2 mg tablet Unknown No No Sig: Take 1 Tablet (0.2 mg) by mouth 3 times daily. cyclobenzaprine (FLEXERIL) 10 mg tablet Unknown Yes No diphenhydrAMINE (BENADRYL) 25 mg tablet Unknown Yes No Sig: Take 25 mg by mouth. gabapentin (NEURONTIN) 100 mg capsule Unknown No No Sig: Take 1 Capsule (100 mg) by mouth 3 times daily. hydrALAZINE (APRESOLINE) 100 mg Tablet tablet Unknown No No Sig: Take 1 Tablet (100 mg) by mouth every 8 hours. insulin glargine (Lantus Solostar U-100 Insulin) 100 unit/mL pen syringe Unknown No No Sig: Inject 25 Units by subcutaneous injection 2 times daily. insulin lispro (HumaLOG KwikPen Insulin) 100 unit/mL pen syringe Unknown No No Sig: Inject 10 units 3 times daily before meals plus a medium dose sliding scale. lancets Unknown No No Si times per day testing insulin lidocaine-transparent dressing (LMX 4 PLUS) 4 % Kit Unknown Yes No Sig: Apply to affected area. Patient not taking: Reported on 04/15/2025 naloxone (NARCAN) 4 mg/spray Miramonte, Non-Aerosol Unknown No No Sig: EMERGENCY USE ONLY: Administer 1 spray (4 mg) in one nostril one time. May repeat in alternating nostrils every 2-3 min until responsive or EMS arrives. Patient not taking: Reported on 04/15/2025 ondansetron (ZOFRAN ODT) 4 mg Tablet, Rapid Dissolve Unknown Yes No Sig: DISSOLVE 1 TABLET IN MOUTH EVERY 6 HOURS NEEDED FOR NAUSEA / EMESIS. DISSOLVE TABLET ON TOPOF TONGUE,THEN SWALLOW WITH SALIVA Patient not taking: Reported on 04/15/2025 spironolactone (ALDACTONE) 25 mg tablet Unknown No No Sig: Take 1 Tablet (25 mg) by mouth daily. varenicline tartrate (CHANTIX) 0.5 mg Tablet Unknown Yes No Sig: Take 0.5 mg by mouth 2 times daily. Patient not taking: Reported on 04/15/2025 Facility-Administered Medications: None Allergies and intolerances: Allergies Allergen Reactions Julio Inhibitors Other (See Comments) Arb-Angiotensin Receptor Antagonist Other (See Comments) Lisinopril Other (See Comments) Angioedema Venom-Honey Bee Rash and Swelling Social history: Social History Socioeconomic History Marital status: Single Spouse name: Not on file Number of children: Not on file Years of education: Not on file Highest education level: Not on file Occupational History Not on file Tobacco Use Smoking status: Every Day Current packs/day: 1.00 Types: Cigarettes Passive exposure: Current Smokeless tobacco: Never Vaping Use Vaping status: Every Day Substances: Nicotine, Flavoring Devices: Disposable Substance and Sexual Activity Alcohol use: No Drug use: Yes Types: Marijuana Comment: occasional Sexual activity: Yes Other Topics Concern Not on file Social History Narrative Not on file Social Drivers of Health Food Insecurity: Not on file (02/03/2025) Transportation Needs: No Transportation Needs (02/03/2025) Transportation Needs Patient needs follow up regarding:: 1 Feeling Safe: Not At Risk (04/26/2025) Feeling Safe Patient has indicated abuse: : No Housing Stability: Low Risk (12/03/2024) Housing Stability Patient needs follow up regarding:: No concerns Family History: Family History Problem Relation Name Age of Onset Glaucoma Maternal Grandmother Diabetes Maternal Grandmother ROS: Review of Systems Constitutional: Negative for chills, fever and malaise/fatigue. HENT: Negative for sore throat. Eyes: Positive for blurred vision. Respiratory: Positive for shortness of breath. Negative for cough and sputum production. Cardiovascular: Positive for chest pain and palpitations. Negative for leg swelling. Gastrointestinal: Positive for nausea. Negative for abdominal pain, constipation, diarrhea and vomiting. Genitourinary: Negative for dysuria, frequency, hematuria and urgency. Musculoskeletal: Negative for myalgias. Neurological: Positive for headaches. Negative for dizziness, tremors, sensory change, speech change, focal weakness, seizures, loss of consciousness and weakness. OBJECTIVE: Temp (24hrs), Av ??F (36.7 ??C), Min:97.6 ??F (36.4 ??C), Max:98.4 ??F (36.9 ??C) BP (!) 175/97 Pulse 94 Temp 98.4 ??F (36.9 ??C) (Oral) Resp 21 Ht 6' (1.829 m) Wt 96.4 kg(212 lb 8.4 oz) SpO2 94% BMI 28.82 kg/m?? Intake/Output Summary (Last 24 hours) at 04/26/2025 2334 Last data filed at 04/26/2025 2200 Gross per 24 hour Intake 156.56 ml Output -- Net 156.56 ml Last documented weight: Weight: 96.4 kg (212 lb 8.4 oz) (04/26/252047) EXAM: General: alert, in no distress Mental exam: Awake and oriented x 3 Neurologic: Grossly normal HEENT: atraumatic, Normocephalic, without obvious abnormality Lungs: clear to auscultation bilaterally, normal respiratory effort Heart: normal rate, regular rhythm, normal S1, S2, no murmurs, rubs, clicks or gallops Abdomen: Soft, non-tender. Bowel sounds normal. No masses, no organomegaly. Extremities: No edema noted Skin: AV fistula noted on the right upper extremity with audible bruit and palpable thrill Lab Data: Recent Labs 04/26/25 1045 WBC 10.8* HGB 10.1* HCT 29.2* PLT 281 Recent Labs 04/26/25 1045 04/26/25 1859 NA 134* 134* K 5.8* 5.5* CL 93* 94* CO2 27 24 CA 10.7* 9.2 BUN 42* 48* CREAT 6.56* 6.75* GLUCOSE 220* 245* Recent Labs 04/26/25 1045 TOTALPROTEIN 7.2 ALBUMIN 3.6 BILITOTAL 0.3 ALKPHOS 95 AST 16 ALT 10 EKG: Personally interpreted by me shows normal sinus rhythm. Peaked T waves noted on leads V2, V3, V4. CXR: Personally reviewed by me shows cardiomegaly with pulmonary vascular congestion. Primary diagnosis: Hypertensive emergency Other active medical issues Active Hospital Problems Diagnosis Acute on chronic low back pain Hyperkalemia Hypertensive emergency Paranoid schizophrenia ([facility]) History of lumbar spinal fusion Tobacco use disorder Secondary hyperparathyroidism of renal origin Hyperlipidemia, unspecified Dependence on renal dialysis Anemia, unspecified ESRD (end stage renal disease) ([facility]) Chronic combined systolic (congestive) and diastolic (congestive) heart failure ([facility]) Cardiomyopathy, unspecified ([facility]) 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 ([facility]) Resolved Hospital Problems No resolved problems to display. ASSESSMENT AND PLAN: 34 y.o. male with PHM of type 1 diabetes mellitus, ESRD on HD, secondary hyperparathyroidism, HTN, HLD, combined systolic and diastolic heart failure, nonischemic cardiomyopathy, anemia of chronic disease, chronic low back pain, status post lumbar spine fusion, methamphetamine use disorder, tobaccouse disorder, schizophrenia is being admitted for further management of hypertensive emergency. Hypertensive emergency -Presented with headache, blurring of vision, chest pain, palpitations, shortness of breath, nausea. -Found to have a blood pressure of 230/130 mmHg and was given labetalol. He was also started on labetalol drip. -After he was transferred here to our ER, he was started on Cardene drip. -Currently on Cardene drip. - His home antihypertensives include amlodipine 10 mg daily, spironolactone 25 mg daily, Bumex 1 mgdaily, clonidine 0.2 mg 3 times daily, Coreg 25 mg twice daily, hydralazine 100 mg every 8 hourly - Reports compliance with his medications. - Denies any drug use. Has previous history of methamphetamine use. - Symptoms likely in the setting of hypertensive emergency. - Had a complete cardiac workup in November 2024 with normal myocardial perfusion imaging without evidence of ischemia and coronary artery calcium score of 0. Troponins elevated but trended flat. Troponin elevation in the setting of ESRD. - No focal neurological deficits on exam. Plan: -Continue Cardene drip. - Resume home antihypertensives and slowly wean off of Cardene drip -Hold spironolactone in the setting of hyperkalemia. - Check CT head without contrast - Telemetry monitoring Hyperkalemia -K elevated at 5.5 -EKG personally reviewed by me showed peaked T waves Plan: -Will give Lokelma 10 g once. -Monitor telemetry for arrhythmias - Hold spironolactone in the setting of hyperkalemia. ESRD on HD Secondary hyperparathyroidism -Currently on TTS schedule. -Last dialysis session Saturday. -Makes minimal urine Plan: -Continue dialysis. -Nephrology consulted. -Renally dose medications Chronic combined systolic and diastolic heart failure Nonischemic cardiomyopathy - Last 2D echo from 11/2024 showed EF of 40 to 45% with grade 2 diastolic dysfunction. - Appears euvolemic on exam Plan: -Monitor intake and output -Continue GDMT with Coreg -Hold spironolactone as above. - Continue Bumex 1 mg daily. -Low-salt diet and fluid restriction. Schizophrenia -Continue amitriptyline 50 mg daily at bedtime, aripiprazole 5 mg daily, bupropion 150 mg daily HLD -Continue aspirin 81 mg daily, atorvastatin 80 mg Insomnia -Continue trazodone 50 mg daily at bedtime Type 1 diabetes mellitus -Currently on Lantus 25 units twice daily, lispro sliding insulin. Plan: -Hyperglycemia pathway initiated. -Holding p.o. meds. -Starting on insulin Lantus 25 units twice daily along with medium sliding scale insulin. -Monitor insulin requirement and adjust insulin regimen based on requirements. Acute on chronic chronic low back pain History of lumbar spine fusion -Continue gabapentin 100 mg 3 times daily - Start on lidocaine patches. - Oxycodone and morphine as needed for uncontrolled pain. Anemia of chronic disease -Hemoglobin low at 10.1. - Anemia of chronic disease in the setting of ESRD. - Monitor hemoglobin. - Transfuse if hemoglobin drops less than 7. Encounter for tobacco cessation Tobacco use disorder -Currently smokes 1 pack of cigarettes per day. - Interested in smoking cessation. Plan: -Counseled on smoking cessation. -Spent 5 mins in counseling the patient about cessation techniques. -These include nicotine gum/patches and medication such as chantix if appropriate. -The patient understands continuing to smoke could lead to stroke, heart disease, COPD and . The benefits of stopping were also presented to them. -The patient has verbalized a desire to quit smoking. -Patient will need to follow up with their PCP to discuss progress and other tactics for cessation. Current diet : DIET RENAL 1800 ML Fluid,; 2GM Sodium (Low), Code status and goals of care was discussed with the patient, and code status was updated in the chart. Code Status: NO CPR (In Event of Cardiopulmonary Arrest) Ambulatory status: Ambulate independently at baseline DVT prophylaxis: Heparin subcu Admission status; inpatient telemetry This patient is admitted as inpatient. I have a reasonable expectation that this patient requires hospital care that crosses 2 midnights supported by complex medical factors documented in the medicalrecord. On the day of the visit, I spent 83 minutes providing care to this patient including Preparing to see the patient, Obtaining and/or reviewing separately obtained history, Performing a medically appropriate examination and/or evaluation, Counseling and educating the patient/family/caregiver, Ordering medications, tests or procedures, Documenting clinical information in the medical record, Referring and communication with other health adult live in caregiver (not separately reported), Independently interpreting results and communicating results to the patient/family/caregiver (not separately reported), Care coordination (not separately reported), and Excluding time spent performing separately billed procedures and/or services. Ben Porter MD 04/26/2025 11:34 PM documented in this encounter Procedure Notes * Tessa Fagan RN - 04/27/2025 12:52 PM CDT Renal Replacement Therapy Summary Procedure: Hemodialysis in Bed Dialyzer: RVC Access: R UA fistula Blood Flow: 400 ml/min Procedure Time: 2 hours Blood Volume Processed: 43.4 liters Ultrafiltration Volume: 1600 ml with 0 ml rinse back Anticoagulation: None (ordered) Dry Weight: 88 kg PreWeight: 91 kg PostWeight: 89.7 kg Post VS: BP:121/67 Pulse: 73 Temp:98.5 SpO2: 97% Dialyzer Cleared(%): 80% with severe clotting of the entire circuit Complications: Fully clotted system AND needle set (return needle). Minuscule infiltration upon attempt to reposition. Elected to stop after discussing options with the patient. This is decided upon as the safest course of action. Patient in complete agreement. Urvashi White NP aware. Report sent to: 6D Tessa Fagan RN, BS, CCRN Dialysis * Urvashi White, COMPLIANCE SPECIALIST - 04/27/2025 10:59 AM CDT PROCEDURE: Intermittent Hemodialysis INDICATION: ESRD Procedure: Utilizing the patient's vascular access, the patient was initiated on hemodialysis. Dialysis is planned for 4 hours. Blood flow of 400 ml per minute and Dialysate flow of 800 ml per minutewere prescribed. The bath used was 2 mEq/L potassium, 3 mEq/L calcium, 140 mEq/L sodium and 35 mEq/L bicarbonate. UF goal: 3L, BP stable. Polyflux 170 H hollow fiber dialyzer was used. No heparin wasused for anticoagulation. No complications have been encountered to this point. I was present during dialysis, and was available for the entirety of the dialysis treatment. Medications Reviewed in [facility] Physical Exam: BP 122/72 Pulse 75 Temp 98.6 ??F (37 ??C) Resp 20 Ht 6' (1.829 m) Wt 91 kg (200 lb 9.9 oz) SpO2 95% BMI 27.21 kg/m?? Resting in bed in NAD on RA Labs: Reviewed in [facility] Lab Results Component Value Date/Time NA 137 04/27/2025 01:14 AM K 5.4 (H) 04/27/2025 01:14 AM CL 96 (L) 04/27/2025 01:14 AM CO2 26 04/27/2025 01:14 AM CA 9.1 04/27/2025 01:14 AM BUN 48 (H) 04/27/2025 01:14 AM CREAT 7.24 (H) 04/27/2025 01:14 AM GLUCOSE 184 (H) 04/27/2025 01:14 AM ANIONGAP 15 04/27/2025 01:14 AM BCRATIO 8 09/04/2024 11:40 AM Lab Results Component Value Date/Time WBC 10.4 04/27/2025 01:14 AM HGB 8.8 (L) 04/27/2025 01:14 AM HCT 26.4 (L) 04/27/2025 01:14 AM PLT 255 04/27/2025 01:14 AM MCV 94.6 04/27/2025 01:14 AM Lab Results Component Value Date/Time CA 9.1 04/27/2025 01:14 AM PO4 5.1 (H) 12/11/2024 04:48 AM Lab Results Component Value Date/Time TOTALPROTEIN 7.2 04/26/2025 10:45 AM ALBUMIN 3.6 04/26/2025 10:45 AM Assessment and Plan: ESRD on hemodialysis per TTS schedule - with ultrafiltration as tolerated. Will continue this schedule and see on hemodialysis days while inpatient. Hypertension emergency - cardene drip weaned off. Ultrafiltration with hemodialysis today. ContinuePTA antiHTN medications Hyperkalemia: mild, running on 2k bath. No further treatment indicated. Check phos # compliant with frequency and duration of dialysis: yes LAWANDA Youssef [facility] 04/27/25, 10:59 AM Cosigned by Danay Stanton MD at 04/27/2025 2:09 PM CDT documented in this encounter ED Notes * Iraida Ortega RN - 04/26/2025 8:07 PM CDT Rounded on pt, pt stating he usually has to wear oxygen at night, because he is in the process of getting a CPAP, pt placed on 1L * Iraida Ortega RN - 04/26/2025 8:06 PM CDT Report called to 6D. * Iraida Ortega RN - 04/26/2025 7:15 PM CDT Rounded on pt, pt resting in side lying position with eyes closed, equal chest rise and fall, VSS, drip going at rate stated in the MAR * Iraida Ortega RN - 04/26/2025 7:14 PM CDT Received report from Suleman GALLEGO, took over care on this pt * Suleman Cee RN - 04/26/2025 6:57 PM CDT IV medications given per order, see mar, will continue to monitor. * Suleman Cee RN - 04/26/2025 6:13 PM CDT Patient presents to ER room 18 via [facility]. Per EMS patient is a transfer from [facility] where patient presented earlier today due chest pain and headache. Per EMS patient was found to be in hypertensive crisis. Patient reports history of HTN and takes daily medication. [facility]. Patient denies any further complaints, patient in no acute distress, respirations equal and unlabored. Patient currently hypertensive, all other VSS, will continue to monitor. * Cruz Dinh, - 04/26/2025 5:25 PM CDTAssociated Order(s): Critical Care HISTORY OF PRESENT ILLNESS Patient is a 34-year-old male history of end-stage renal disease on hemodialysis presenting as transfer from outside facility for hypertensive emergency. Patient went into the outside facility with complaints of headache nausea vomiting blurred vision and chest pain. Was noted have a blood pressureof 230 systolic over 120 and subsequently started on labetalol infusion. He was given analgesics. He states he still has some mild symptoms though they are improved with improved blood pressure control. States he is not missed any dialysis. PAST MEDICAL HISTORY REVIEWED MEDICAL: Patient has a past medical history of Anemia, Background diabetic retinopathy ([facility]), Diabetes (not taking his meds x 3years ), Essential hypertension, Hyperlipidemia, Methamphetamine use disorder, mild ([facility]) (12/06/2024), Renal disease, and Substance abuse ([facility]). SURGICAL: Patient has a past surgical history that includes back surgery; pr arteriovenous anastomosis open direct (Right, 01/18/2025); and retinal injections. ALLERGIES Julio inhibitors, Arb-angiotensin receptor antagonist, Lisinopril, and Venom-honey bee PHYSICAL EXAM INITIAL VS BP: (!) 198/121 (04/26/251736), Heart Rate: 85 bpm (04/26/251736), Resp: 20 (04/26/251736), Pulse: 85 (04/26/251736), Temp: 97.6 ??F (36.4 ??C) (04/26/251736), Temp src: Oral (04/26/251736), SpO2: 99 % (04/26/251736), Height: 6' (182.9 cm) (04/26/252047), Weight: 96.4 kg (212 lb 8.4 oz) (04/26/252047), BMI (Calculated): (!) 28.82 (04/26/252047) No LMP for male patient. Physical Exam Vitals reviewed. Constitutional: General: He is not in acute distress. HENT: Head: Normocephalic and atraumatic. Eyes: Conjunctiva/sclera: Conjunctivae normal. Pupils: Pupils are equal, round, and reactive to light. Cardiovascular: Rate and Rhythm: Normal rate and regular rhythm. Heart sounds: No murmur heard. Pulmonary: Effort: Pulmonary effort is normal. No respiratory distress. Breath sounds: Normal breath sounds. No wheezing or rales. Abdominal: General: There is no distension. Palpations: Abdomen is soft. Abdomen is not rigid. Tenderness: There is no abdominal tenderness. There is no guarding or rebound. Musculoskeletal: General: Normal range of motion. Cervical back: Normal range of motion and neck supple. Comments: AV fistula proximal right upper extremity Skin: General: Skin is warm and dry. Neurological: Mental Status: He is alert and oriented to person, place, and time. DIAGNOSTICS LAB: BASIC METABOLIC PANEL - Abnormal Result Value SODIUM 134 (*) POTASSIUM 5.5 (*) CHLORIDE 94 (*) CO2 24 CALCIUM 9.2 BUN 48 (*) CREATININE 6.75 (*) GLUCOSE 245 (*) GFR 10 (*) ANION GAP 16 TROPONIN 6 HR, 5TH GEN - Abnormal TROPONIN T, 6 HR 5TH GEN 184 (*) RADIOLOGY: No orders to display EK sinus rhythm, rate 84, no gross axis deviation, no ischemia, peaked T waves V2 V3 that appear new from prior PROCEDURES Critical Care Performed by: Cruz Dinh DO Authorized by: Cruz Dinh DO Critical care provider statement: Critical care time (minutes): 35 Critical care was necessary to treat or prevent imminent or life-threatening deterioration of the following conditions: Renal failure and cardiac failure Critical care was time spent personally by me on the following activities: Development of treatmentplan with patient or surrogate, ordering and review of radiographic studies, ordering and review oflaboratory studies, ordering and performing treatments and interventions, examination of patient, evaluation of patient's response to treatment, review of old charts and re-evaluation of patient's condition I assumed direction of critical care for this patient from another provider in my specialty: no MEDICAL DECISION MAKING AND PLAN OF CARE Medical Decision Making Patient is 34-year-old male end-stage renal disease presenting from outside facility due to hypertensive crisis. Patient presented to the outside ED with chest pain headache blurred vision and profoundly elevated blood pressure, was given bolus of labetalol and started on infusion. Has apparently not missed any dialysis. Blood work from outside facility was reviewed, repeat BMP here shows potassium of 5.5 creatinine is 6.75. Troponins are not elevated, no significant change from baseline and 6-hour obtained here in the ED at 184. Chest pain has resolved with blood pressure improvement. The patient did not have the labetalol running upon arrival to our facility, we did switch to nicardipine as this is more easily titratable. Case were discussed with hospitalist service and accepted admission. Amount and/or Complexity of Data Reviewed Labs: ordered. ECG/medicine tests: ordered. Risk Prescription drug management. Decision regarding hospitalization. Clinical Scoring & Consults Medications Administered During the ED Stay from 04/26/2025 1725 to 04/26/20252044 Date/Time Order Dose Route Action 04/26/2025 1800 CDT labetaloL (NORMODYNE;TRANDATE) 200 mg in sodium chloride 0.9 % 200 mL infusion -- IV Canceled Entry 04/26/2025 1842 CDT fentaNYL PF (SUBLIMAZE) 50 mcg/mL injection 100 mcg 100 mcg IV Given 04/26/2025 2000 CDT niCARdipine (CARDENE) 25 mg in sodium chloride 0.9 % 250 mL infusion 5 mg/hr IVRate Verify 04/26/2025 1900 CDT niCARdipine (CARDENE) 25 mg in sodium chloride 0.9 % 250 mL infusion 5 mg/hr IVRate Verify 04/26/2025 1850 CDT niCARdipine (CARDENE) 25 mg in sodium chloride 0.9 % 250 mL infusion 5 mg/hr IVNew Bag Discharge Medication List as of 04/27/2025 12:14 PM CONTINUE these medications which have NOT CHANGED Details traZODone (DESYREL) 50 mg tablet Take 50 mg by mouth daily at bedtime. varenicline tartrate (CHANTIX) 0.5 mg Tablet Take 0.5 mg by mouth 2 times daily. lidocaine-transparent dressing (LMX 4 PLUS) 4 % Kit Apply to affected area. diphenhydrAMINE (BENADRYL) 25 mg tablet Take 25 mg by mouth. hydrALAZINE (APRESOLINE) 100 mg Tablet tablet Take 1 Tablet (100 mg) by mouth every 8 hours., Disp-300 Tablet, R-3 bumetanide (BUMEX) 1 mg tablet Take 1 Tablet by mouth. naloxone (NARCAN) 4 mg/spray [place], Non-Aerosol EMERGENCY USE ONLY: Administer 1 spray (4 mg) in one nostril one time. May repeat in alternating nostrils every 2-3 min until responsive or EMS arrives., Disp-2 Each, R-3 ondansetron (ZOFRAN ODT) 4 mg Tablet, Rapid Dissolve DISSOLVE 1 TABLET IN MOUTH EVERY 6 HOURS NEEDED FOR NAUSEA / EMESIS. DISSOLVE TABLET ON TOP OF TONGUE,THEN SWALLOW WITH SALIVA spironolactone (ALDACTONE) 25 mg tablet Take 1 Tablet (25 mg) by mouth daily., Disp-30 Tablet, R-2 atorvastatin (LIPITOR) 80 mg tablet Take 1 Tablet (80 mg) by mouth daily., Disp- 30 Tablet, R-2 amLODIPine (NORVASC) 10 mg tablet Take 1 Tablet (10 mg) by mouth daily., Disp-30 Tablet, R-2 cloNIDine HCL (CATAPRES) 0.2 mg tablet Take 1 Tablet (0.2 mg) by mouth 3 times daily., Disp-90 Tablet, R-2 carvediloL (COREG) 25 mg tablet Take 1 Tablet (25 mg) by mouth every 12 hours., Disp-60 Tablet, R-2 ARIPiprazole (Abilify) 5 mg tablet Take 1 Tablet (5 mg) by mouth daily., Disp-30 Tablet, R-5 gabapentin (NEURONTIN) 100 mg capsule Take 1 Capsule (100 mg) by mouth 3 times daily., Disp-90 Capsule, R-2 buPROPion HCL (WELLBUTRIN XL) 150 mg Extended Release 24 hour tablet Take 1 Tablet (150 mg) by mouth daily., Disp-30 Tablet, R-2 amitriptyline (ELAVIL) 50 mg tablet Take 1 Tablet (50 mg) by mouth daily at bedtime., Disp-30 Tablet, R-2 aspirin (ECOTRIN EC) 81 mg Tablet, Delayed Release (E.C.) Take 1 Tablet (81 mg) by mouth daily., Disp-30 Tablet, R-0 insulin glargine (Lantus Solostar U-100 Insulin) 100 unit/mL pen syringe Inject 25 Units by subcutaneous injection 2 times daily., Disp-15 mL, R-0 albuterol sulfate HFA 90 mcg/actuation aerosol inhaler Take 2 Puffs by inhalation every 6 hours as needed for Shortness of Breath., Disp-8.5 Gram, R-1 Blood Pressure Monitor Kit To monitor blood pressure dailyInsurance preferanceDisp-1 Each, R-0 Blood-Glucose Sensor (TechflakesGB G7 Sensor) Device To continuously monitor blood sugar. Change sensor every 10 days., Disp-3 Each, R-8 insulin lispro (HumaLOG KwikPen Insulin) 100 unit/mL pen syringe Inject 10 units 3 times daily before meals plus a medium dose sliding scale., Disp-15 mL, R-0 EPINEPHrine (EPIPEN) 0.3 mg/0.3 mL Auto-Injector Inject 0.3 mL (0.3 mg) by intramuscular injection 1 time daily as needed for Anaphylaxis., Disp-1 Each, R-0 blood sugar diagnostic Strip Needs 120 strips for 4 times per dayOne touch Yola flex machine at home.Disp-120 Strip, R-0 lancets 4 times per day testing insulin, Disp-120 Each, R-0 alcohol Pads, Medicated 4 times per day glucose testing., Disp-120 Each, R-0 LAST VS BP: 128/74 (04/27/25 1500), Heart Rate: 82 bpm (04/27/25 1415), Resp: 22 (04/27/25 1415), Pulse: 79(04/27/25 1415), Temp: 98.4 ??F (36.9 ??C) (04/27/25 1500), Temp src: Axillary (04/27/25 1500), SpO2: 99 % (04/27/25 1415) CLINICAL IMPRESSION Final diagnoses: [I16.1] Hypertensive emergency (Primary) DISPOSITION, EDUCATION AND MEDICATION RECONCILIATION Medications reconciled. See after visit summary for patient education on discharged patients. ED Disposition ED Disposition Admit Condition Stable User Cruz Dinh DO Date/Time SatApr 26, 2025 7:31 PM Comment -- ATTESTATION STATEMENTS documented in this encounter Miscellaneous Notes * Care Plan - Alphonso Urban RN - 04/27/2025 9:23 AM CDT Clinical documentation reviewed. Comprehensive Discharge Planning Risk Assessment was completed. Documentation Related to CDPA score CDPA Documentation Ambulation: independent Transferring: independent Toileting: independent Bathing: independent Dressing: independent Eating: independent Communication: understands/communicates w/o difficulty Weight-Bearing Status: no weight-bearing restrictions Living Arrangements: Lives alone Total Score of 9 or below does not identify immediate needs for discharge. CDPA Risk Score Total Score: 0 Criteria that do not apply: Self-reported walking limitation Disability Age Prior Living Status Please place consult if needs for discharge are identified. Care Management will continue to follow for discharge planning. * Gen AI ED Handoff - GENERATIVE AI HANDOFF NOTE - 04/26/2025 8:15 PM CDT SITUATION: Patient ( ) is a 34-year-old male who has been in the ER for 2 hours. He came to the ER due to hypertension. The patient's most recent care team on record included: Iraida Ortega. BACKGROUND: Drips the patient are on include: niCARdipine, last started at 2025-04-26 18:50:04. This patient has allergies to Julio Inhibitors, Arb-angiotensin Receptor Antagonist, Lisinopril, Venom-honey Bee. ASSESSMENT: Patient's most recent vitals recorded in flowsheets were as follows: BP: 155/75 T: 97.5 F RR: 17 SPO2: 85% HR: 87 WT: LBS BMI: not available Most recent Glucose Value: 245. Completed: 2025-04-26 19:54. Last recorded oxygen source was room air. The patient presents with a history of end-stage renal disease on hemodialysis, essential hypertension, diabetes (not taking medications for 3 years), hyperlipidemia, methamphetamine use disorder, anemia, background diabetic retinopathy, and substance abuse. The patient is currently experiencing a hypertensive emergency with a blood pressure of 198/121. He has a history of back surgery, arteriovenous anastomosis, and retinal injections. Allergies include julio inhibitors, arb-angiotensin receptor antagonist, lisinopril, and venom-honey bee. RECOMMENDATION: Continue monitoring blood pressure and manage hypertensive crisis with labetalol infusion as initiated. Ensure the patient receives regular hemodialysis sessions. Address diabetes management, considering the patient has not taken medications for 3 years. Monitor for symptoms of methamphetamine use disorder and provide appropriate support. ECG and medicine tests have been ordered. Prescription drug management is necessary. Consider consults for renal disease management and substance abuse support. Educate the patient on the importance of medication adherence and lifestyle modifications. *This summary was created by [employer]. The responses are meant to enhance, not replace normal workflow. Please contact the ED nurse for any additional information.* * ED Bed Hold Comment Note - Rani Cee RN - 04/26/2025 5:25 PM CDT Bed: 18 Expected date: 04/26/25 Expected time: 5:20 PM Means of arrival: [facility] Comments: [id number] documented in this encounter Plan of Treatment Upcoming Encounters Date Type Department Care Team (Late st Contact Info) Description 05/03/2025 9:20 AM CDT Office Visit [facility] Medicine [place] [address] [address] Duke Alarcon MD [address] [address] 05/26/2025 10:20 AM CDT Office Visit [facility] Ophthal[facility] [place] [address] [address] Kim Servin MD [address] [place] [address] 06/07/2025 9:00 AM CDT Appointment [facility] Echo [address] [place] [phone] Lawanda Mendoza, COMPLIANCE SPECIALIST [address] [place] [address] 07/05/2025 9:40 AM CDT Office Visit [facility] [address] [place] [address] Anne Duong, [facility] [address] [place] [address] 09/27/2025 9:30 AM WAX POURER Office Visit [facility] Opt[facility] [address] [place] [phone] Constantin Bales, OD [address] [address] documented as of this encounter Procedures Procedure Name Priority Date/Time Associated Diagnosis Comments CT HEAD WO CONTRAST Routine 04/27/2025 2 :05 PM CDT POC GLUCOSE Routine 04/27/2025 12:52 PM CDT POC GLUCOSE Routine 04/27/2025 7:22 AM CDT CBC WITH DIFFERENTIAL Routine 04/27/2025 1:14 AM CDT BASIC METABOLIC PANEL Routine 04/27/2025 1:14 AM CDT POC GLUCOSE Routine 04/26/2025 9:50 PM CDT TROPONIN 6 HR, 5TH GEN Timed Study 04/26/2025 6:59 PM CDT BASIC METABOLIC PANEL Stat 04/26/2025 6:59 PM CDT EKG 12-LEAD Stat 04/26/2025 6:06 PM CDT CRITICAL CARE Routine 04/26/2025 5:25 PM CDT documented in this encounter Results * CT HEAD WO CONTRAST (04/27/2025 2:05 PM CDT) Anatomical Region Laterality Modality Head Computed Tomogra phy 04/27/2025 1:58 PM CDT Impressions 04/27/2025 2:50 PM CDT IMPRESSION: Please see below. CT Head Without Contrast Date: 04/27/2025 2:05 PM Reason For Exam: Headache, sudden, severe. Diagnosis: Hypertensive emergency. Technique: Conventional axial images were obtained through the brain without contrast. Comparison: None FINDINGS: Midline structures central. Ventricles nondilated. Parenchymal attenuation and morphology appear normal. No evidence of infarct, mass or hemorrhage. Mastoid air cells, middle ear cavities and visualized paranasal sinuses are grossly clear. IMPRESSION: No acute intracranial findings. Narrative Procedure Note Juice Ford DO - 04/27/2025 IMPRESSION: Please see below. CT Head Without Contrast Date: 04/27/2025 2:05 PM Reason For Exam: Headache, sudden, severe. Diagnosis: Hypertensive emergency. Technique: Conventional axial images were obtained through the brain without contrast. Comparison: None FINDINGS: Midline structures central. Ventricles nondilated. Parenchymal attenuation and morphology appear normal. No evidence of infarct, mass or hemorrhage. Mastoid air cells, middle ear cavities and visualized paranasal sinuses are grossly clear. IMPRESSION: No acute intracranial findings. Ben Porter MD CT ORDERABLES Final Result * (ABNORMAL) POC GLUCOSE (04/27/2025 12:52 PM CDT) GLUCOSE POC 110(H) 74 - 99 mg/dL 04/27/2025 12:52 PM CDT [facility] SPECIMEN SOURCE, GLUCOSE POC Capillary 04/27/2025 12:52 PM CDT [facility] Blood, whole 04/27/2025 12:5 2 PM CDT 04/27/2025 2:19 PM CDT Katherine Lyons MD POINT OF CARE TESTING Fi nal Result Performing Organization Address [facility]/ZIP Co de Phone Number [facility] CLIA # [id number] [address] [address] [place] [address] * POC GLUCOSE (04/27/2025 7:22 AM CDT) GLUCOSE POC 74 74 - 99 mg/dL 04/27/2025 7:22 AM CDT [facility] SPECIMEN SOURCE, GLUCOSE POC Capillary 04/27/2025 7:22 AM CDT [facility] Blood, whole 04/27/2025 7:22 AM CDT 04/27/2025 7:42 AM CDT us Ben Porter MD POINT OF CARE TESTING Final Result Performing Organization Address [facility] Co de Phone Number [facility] CLIA # [id number] [address] [address] [place] [address] * (ABNORMAL) CBC WITH DIFFERENTIAL (04/27/2025 1:14 AM CDT) WBC 10.4 4.5 - 11.0 K/uL 04/27/2025 1:42 AM CDT [facility] RBC 2.79(L) 4.60 - 6.20 M/uL 04/27/2025 1:42 AM CDT [facility] HEMOGLOBIN 8.8(L) 14.0 - 18.0 g/dL 04/27/2025 1:42 AM [facility] HEMATOCRIT 26.4(L) 41.0 - 53.0 % 04/27/2025 1:42 AM [facility] MCV 94.6 84.0 - 103.0 fL 04/27/2025 1:42 AM [facility] MCH 31.5 27.0 - 34.0 pg 04/27/2025 1:42 AM [facility] MCHC 33.3 30.0 - 35.0 g/dL 04/27/2025 1:42 AM [facility] PLATELETS 255 140 - 440 K/uL 04/27/2025 1:42 AM [facility] MPV 10.1 8.9 - 12.8 fL 04/27/2025 1:42 AM [facility] RDW 14.2 11.0 - 14.5 % 04/27/2025 1:42 AM [facility] RDW-STDEV 48.1 37.0 - 54.0 fL 04/27/2025 1:42 AM [facility] NEUTROPHILS 70 42 - 75 % 04/27/2025 1:42 AM [facility] LYMPHOCYTES 21(L) 24 - 44 % 04/27/2025 1:42 AM [facility] MONOCYTES 6 2 - 10 % 04/27/2025 1:42 AM [facility] EOSINOPHILS 1 0 - 7 % 04/27/2025 1:42 AM [facility] BASOPHILS 1 0 - 1 % 04/27/2025 1:42 AM [facility] IMMATURE GRANULOCYTES 0 0 - 2 % 04/27/2025 1:42 AM [facility] NEUTROPHIL ABSOLUTE 7.31 2.00 - 8.00 K/uL 04/27/2025 1:42 AM [facility] LYMPHOCYTE ABSOLUTE 2.18 1.20 - 4.00 K/uL 04/27/2025 1:42 AM [facility] MONOCYTE ABSOLUTE 0.63(H) 0.10 - 0.60 K/uL 04/27/2025 1:42 AM CDT [facility] EOSINOPHIL ABSOLUTE 0.15 0.00 - 0.70 K/uL 04/27/2025 1:42 AM CDT [facility] BASOPHILS ABSOLUTE 0.07 0.00 - 0.20 K/uL 04/27/2025 1:42 AM CDT [facility] IMMATURE GRANULOCYTES ABSOLUTE 0.04 0.00 - 0.10 K/uL 04/27/2025 1:42 AM CDT [facility] SMEAR REVIEWED: NA - Not Applicable 04/27/2025 1:42 AM T [facility] Blood Venipuncture / Unknown 04/27/2025 1:14 AM CDT 04/27/2025 1:37 AM CDT us Ben Porter MD HEMATOLOGY ORDERABLES Final Result Performing Organization Address City/State/[facility] Co de Phone Number [facility] CLIA # [id number] [address] [place] [address] * (ABNORMAL) BASIC METABOLIC PANEL (04/27/2025 1:14 AM CDT) SODIUM 137 136 - 145 mmol/L 04/27/2025 2:14 AM CDT [facility] POTASSIUM 5.4(H) 3.5 - 5.1 mmol/L 04/27/2025 2:14 AM CDT [facility] CHLORIDE 96(L) 98 - 107 mmol/L 04/27/2025 2:14 AM CDT [facility] CO2 26 22 - 29 mmol/L 04/27/2025 2:14 AM CDT [facility] CALCIUM 9.1 8.6 - 10.0 mg/dL 04/27/2025 2:14 AM CDT [facility] BUN 48(H) 6 - 20 mg/dL 04/27/2025 2:14 AM CDT [facility] CREATININE 7.24(H) 0.67 - 1.17 mg/dL 04/27/2025 2:14 AM CDT [facility] GLUCOSE 184(H) 74 - 99 mg/dL 04/27/2025 2:14 AM CDT [facility] GFR 9(L) >=60 mL/min/1. 73 sq meter 04/27/2025 2:14 AM CDT [facility] Comment:eGFR calculated with 2020 CKD-EPI equation. Vegetarian diet, extremely high or low muscle mass, and may affect results. Cystatin C with Glomerular Filtration Rate is a suitable alternative for these patients. ANION GAP 15 9 - 20 mmol/L 04/27/2025 2:14 AM CDT [facility] Blood Venipuncture / Unknown 04/27/2025 1:14 AM CDT 04/27/2025 1:36 AM CDT Ben Porter MD CHEMISTRY ORDERABLES Final R esult [facility] CLIA # [id number] [address] [id number] * (ABNORMAL) POC GLUCOSE (04/26/2025 9:50 PM CDT) GLUCOSE POC 230(H) 74 - 99 mg/dL 04/26/2025 9:50 PM CDT [facility] SPECIMEN SOURCE, GLUCOSE POC Capillary 04/26/2025 9:50 PM CDT [facility] Blood, whole 04/26/2025 9:50 PM CDT 04/26/2025 10:05 PM CDT Ben Porter MD POINT OF CARE TESTING Final Result Performing Organization Address City/[facility]/ZIP Co de Phone Number [facility] CLIA # [id number] [address] [address] [place], [place] [address] * (ABNORMAL) TROPONIN 6 HR, 5TH GEN (04/26/2025 6:59 PM CDT) TROPONIN T, 6 HR 5TH GEN 184(HH) <=15 ng/L 04/26/2025 7:50 PM CDT [facility] Blood Venipuncture / Unknown 04/26/2025 6:59 PM CDT 04/26/2025 7:16 PM CDT Narrative [facility] - 04/26/2025 7:50 PM CDT Troponin elevated. Unable to calculate delta. Delay in collection of timed specimen beyond recommended collection interval. Results must be interpreted in clinical context. us Cruz Dinh DO CHEMISTRY ORDERABLES Final Re sult [facility] CLIA # [id number] [address] [place] [address] * (ABNORMAL) BASIC METABOLIC PANEL (04/26/2025 6:59 PM CDT) Pathologist [facility] SODIUM 134(L) 136 - 145 mmol/L 04/26/2025 7:54 PM CDT [facility] POTASSIUM 5.5(H) 3.5 - 5.1 mmol/L 04/26/2025 7:54 PM CDT [facility] CHLORIDE 94(L) 98 - 107 mmol/L 04/26/2025 7:54 PM CDT [facility] CO2 24 22 - 29 mmol/L 04/26/2025 7:54 PM CDT [facility] CALCIUM 9.2 8.6 - 10.0 mg/dL 04/26/2025 7:54 PM CDT [facility] BUN 48(H) 6 - 20 mg/dL 04/26/2025 7:54 PM CDT [facility] CREATININE 6.75(H) 0.67 - 1.17 mg/dL 04/26/2025 7:54 PM CDT [facility] GLUCOSE 245(H) 74 - 99 mg/dL 04/26/2025 7:54 PM CDT [facility] GFR 10(L) >=60 mL/min/1. 73 sq meter 04/26/2025 7:54 PM CDT [facility] Comment:eGFR calculated with 2020 CKD-EPI equation. Vegetarian diet, extremely high or low muscle mass, and may affect results. Cystatin C with Glomerular Filtration Rate is a suitable alternative for these patients. 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 : 1990 Requested By: Order Number: [id number] Reading MD: Lázaro Barker Measurements Intervals [place] Rate: 84 P: 55 AK: 160 QRS: 51 QRSD: 88 T: 96 QT: 414 QTc: 489 Interpretive Statements Normal sinus rhythm Nonspecific T wave abnormality Prolonged QT Abnormal ECG Electronically Signed On 04-27-2025 20:02:40 CDT by Lázaro Barker Procedure Note Lázaro Barker MD - 04/27/2025 [facility] [address] [place] [address] Test Date: 2025-04-26 Pat Name: VIDA SAN Department: 11 Room: 18 18 Gender: Male 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: [id number] : 1990 Requested By: Order Number: [id number] Reading MD: Lázaro Barker Measurements Intervals [place] Rate: 84 P: 55 AK: 160 QRS: 51 QRSD: 88 T: 96 QT: 414 QTc: 489 Interpretive Statements Normal sinus rhythm Nonspecific T wave abnormality Prolonged QT Abnormal ECG Electronically Signed On 04-27-2025 20:02:40 CDT by Lázaro Barker us Cruz Dinh DO ECG ORDERABLES Final Result Performing Organization Address City/State/[facility] Co de Phone Number INTERFACE SYSTEM Refer to clinic/hospital department * Critical Care (04/26/2025 5:25 PM CDT) Narrative Cruz Dinh DO - 04/26/2025 5:25 PM CDT Cruz Dinh DO 04/29/2025 2:22 PM Critical Care Performed by: Cruz Dinh DO Authorized by: Cruz Dinh DO Critical care provider statement: Critical care time (minutes): 35 Critical care was necessary to treat or prevent imminent or life-threatening deterioration of the following conditions: Renal failure and cardiac failure Critical care was time spent personally by me on the following activities: Development of treatment plan with patient or surrogate, ordering and review of radiographic studies, ordering and review of laboratory studies, ordering and performing treatments and interventions, examination of patient, evaluation of patient's response to treatment, review of old charts and re-evaluation of patient's condition I assumed direction of critical care for this patient from another provider in my specialty: no us Cruz Dinh DO PROCEDURE/MINOR SURGICAL ORDE RABLES Final Result documented in this encounter Visit Diagnoses Diagnosis Hypertensive emergency- Primary Unspecified essential hypertension Hypertensive emergency Unspecified essential hypertension 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 (CMS/HCC) Tobacco use disorder Secondary hyperparathyroidism of renal origin Secondary hyperparathyroidism (of renal origin) Paranoid schizophrenia (CMS/HCC) Paranoid schizophrenia, unspecified condition Hyperlipidemia, unspecified ESRD (end stage renal disease) ([facility]) End stage renal disease History of lumbar spinal fusion Dependence on renal dialysis Renal dialysis status Chronic combined systolic (congestive) and diastolic (congestive) heart failure ([facility]) Cardiomyopathy, unspecified ([facility]) Anemia, unspecified Acute on chronic low back pain Hyperkalemia Hyperpotassemia Encounter for tobacco use cessation counseling documented in this encounter Administered Medications Inactive Administered Medications - up to 3 most recent administrations Medication Order MAR Action Action Date Dose Rate Site acetaminophen (TYLENOL) tablet 650 mg 650 mg, Oral, EVERY 6 HOURS PRN, Starting on Sat04/26/25 at 2024, Until Sat04/27/25 at 1733, Other (See Comment), See admin instructions, Routine amitriptyline (ELAVIL) tablet 50 mg 50 mg, Oral, DAILY AT BEDTIME, First dose on Sat04/26/25 at 2100, Until Discontinued, Routine, Previous Med: amitriptyline (ELAVIL) 50 mg tablet - Orig Sig - Take 1 Tablet (50 mg) by mouth daily at bedtime. Given 04/26/2025 9:46 PM CDT 50 mg amLODIPine (NORVASC) tablet 10 mg 10 mg, Oral, DAILY, First dose on Sat04/27/25 at 0900, Until Discontinued, Routine, Previous Med: amLODIPine (NORVASC) 10 mg tablet - Orig Sig - Take 1 Tablet (10 mg) by mouth daily. Given 04/27/2025 8:46 AM CDT 10 mg ARIPiprazole (ABILIFY) tablet 5 mg 5 mg, Oral, DAILY, First dose on Sat04/27/25 at 0900, Until Discontinued, Routine, Previous Med: ARIPiprazole (Abilify) 5 mg tablet - Orig Sig - Take 1 Tablet (5 mg) by mouth daily. Given 04/27/2025 8:48 AM CDT 5 mg aspirin (ECOTRIN EC) tablet 81 mg 81 mg, Oral, DAILY, First dose on Sat04/27/25 at 0900, Until Discontinued, Routine, Previous Med: aspirin (ECOTRIN EC) 81 mg Tablet, Delayed Release (E.C.) - Orig Sig - Take 1 Tablet (81 mg) by mouth daily. Given 04/27/2025 8:46 AM CDT 81 mg atorvastatin (LIPITOR) tablet 80 mg 80 mg, Oral, DAILY, First dose on Sat04/27/25 at 0900, Until Discontinued, Routine, Previous Med: atorvastatin (LIPITOR) 80 mg tablet - Orig Sig - Take 1 Tablet (80 mg) by mouth daily. Given 04/27/2025 8:46 AM CDT 80 mg bumetanide (BUMEX) tablet 1 mg 1 mg, Oral, DAILY, First dose on Sat04/27/25 at 0900, Until Discontinued, Routine, Previous Med: bumetanide (BUMEX) 1 mg tablet - Orig Sig - Take 1 Tablet by mouth. Given 04/27/2025 8:48 AM CDT 1 mg buPROPion HCL (WELLBUTRIN XL) 24 hour tablet 150 mg 150 mg, Oral, DAILY, First dose on Sat04/27/25 at 0900, Until Discontinued, Routine, Previous Med: buPROPion HCL (WELLBUTRIN XL) 150 mg Extended Release 24 hour tablet - Orig Sig - Take 1 Tablet (150 mg) by mouth daily. Given 04/27/2025 9:30 AM CDT 150 mg carvediloL (COREG) tablet 25 mg 25 mg, Oral, EVERY 12 HOURS, First dose on Sat04/26/25 at 2044, Until Discontinued, Routine, Previous Med: carvediloL (COREG) 25 mg tablet - Orig Sig - Take 1 Tablet (25 mg) by mouth every 12 hours. Given 04/27/2025 8:47 AM CDT 25 mg Given 04/26/2025 9:46 PM CDT 25 mg cloNIDine HCL (CATAPRES) tablet 0.2 mg 0.2 mg, Oral, THREE TIMES DAILY, First dose on Sat04/26/25 at 2044, Until Discontinued, Routine, Previous Med: cloNIDine HCL (CATAPRES) 0.2 mg tablet - Orig Sig - Take 1 Tablet (0.2 mg) by mouth 3 times daily. Given 04/27/2025 12:50 PM CDT 0.2 mg Given 04/27/2025 8:46 AM CDT 0.2 mg Given 04/26/2025 9:45 PM CDT 0.2 mg dextrose 5 % - sodium chloride 0.9 % infusion IV, at 40 mL/hr, SEE ADMIN INSTRUCTIONS, Starting on Sat04/26/25 at 2028, Until Sat04/27/25 at 1733, Routine dextrose 5 % in water 250 mL flush bag 25 mL 25 mL, IV, SEE ADMIN INSTRUCTIONS, Starting on Sat04/26/25 at 2025, Until Sat04/27/25 at 1733, Routine dextrose 50% (D50) syringe 12.5 Gram 12.5 Gram, IV, SEE ADMIN INSTRUCTIONS, Starting on Sat04/26/25 at 2029, Until Sat04/27/25 at 1733, Routine dextrose 50% (D50) syringe 25 Gram 25 Gram, IV, SEE ADMIN INSTRUCTIONS, Starting on Sat04/26/25 at 202, Until Sat04/27/25 at 1733, Routine fentaNYL PF (SUBLIMAZE) 50 mcg/mL injection 100 mcg 100 mcg, IV, ONE TIME ONLY, 1 dose, On Sat04/26/25 at 1800, Routine Given 04/26/2025 6:42 PM CDT 100 mcg gabapentin (NEURONTIN) capsule 100 mg 100 mg, Oral, THREE TIMES DAILY, First dose on Sat04/26/25 at 2045, Until Discontinued, Routine, Previous Med: gabapentin (NEURONTIN) 100 mg capsule - Orig Sig - Take 1 Capsule (100 mg) by mouth 3 times daily. Given 04/27/2025 12:50 PM CDT 100 mg Given 04/27/2025 8:46 AM CDT 100 mg Given 04/26/2025 9:45 PM CDT 100 mg heparin injection 5,000 Units 5,000 Units, subCUT, EVERY 8 HOURS, First dose on Sat04/27/25 at 0500, Until Discontinued, Routine Given 04/27/2025 5:29 AM CDT 5,000 Units Abdominal Tissue hydrALAZINE (APRESOLINE) 20 mg/mL injection 10 mg 10 mg, IV, EVERY 6 HOURS PRN, Starting on Sat04/27/25 at 0530, Until Sat04/27/25 at 1733, Blood Pressure, systolic blood pressure greater than 170, Routine hydrALAZINE (APRESOLINE) tablet 100 mg 100 mg, Oral, EVERY 8 HOURS, First dose on Sat04/26/25 at 2100, Until Discontinued, Routine, Previous Med: hydrALAZINE (APRESOLINE) 100 mg Tablet tablet - Orig Sig - Take 1 Tablet (100 mg) by mouth every 8 hours. Given 04/27/2025 12:50 PM CDT 100 mg Given 04/27/2025 5:28 AM CDT 100 mg Given 04/26/2025 9:45 PM CDT 100 mg insulin glargine (LANTUS) injection 25 Units 25 Units, subCUT, TWO TIMES DAILY, First dose on Sat04/26/25 at 2100, Until Discontinued, Routine Given 04/27/2025 8:49 AM CDT 25 Units Abdomen, Left Lower Quadrant Given 04/26/2025 9:52 PM CDT 25 Units Ab dominal Tissue insulin lispro (HumaLOG,ADMELOG) injection 0-12 Units 0-12 Units, subCUT, THREE TIMES DAILY WITH MEALS, First dose on Sat04/27/25 at 0800, Until Discontinued, Routine insulin lispro (HumaLOG,ADMELOG) injection 0-6 Units 0-6 Units, subCUT, DAILY AT BEDTIME, First dose on Sat04/26/25 at 2100, Until Discontinued, Routine Lidocaine 4 % topical patch 1 Patch 1 Patch, Topical, DAILY, First dose on Sat04/26/25 at 2030, Until Discontinued, Routine Applied 04/27/2025 8:44 AM CDT 1 Patch Abdomen, Left Lower Quadrant Applied 04/26/2025 9:47 PM CDT 1 Patch Ba ck, Right morphine 4 mg/mL injection 2 mg 2 mg, IV, EVERY 4 HOURS PRN, 6 doses, Starting on Sat04/26/25 at 2026, Until Sat04/27/25 at 1733, Pain (See admin instructions), Routine Given 04/26/2025 9:03 PM CDT 2 mg naloxone (NARCAN) 0.4 mg/mL injection 0.1 mg 0.1 mg, IV, SEE ADMIN INSTRUCTIONS, Starting on Sat04/26/25 at 2026, Until Sat04/27/25 at 1733, Routine niCARdipine (CARDENE) 25 mg in sodium chloride 0.9 % 250 mL infusion 0-15 mg/hr (0-150 mL/hr), IV, TITRATE, Starting on Sat04/26/25 at 1830, Until Sat04/27/25 at 0530, Should this infusion be titrated? Yes, Initial infusion dose? 5 mg/hr, Titration Dose Increment? 2.5 mg/hr, Titration Interval? 10 minutes, Goal Type? SBP Goal, SBP Goal? Other (see comments), Goal: 180 Rate Verify 04/26/2025 11:00 PM CDT 5 mg/hr 50 mL/hr Rate Verify 04/26/2025 10:01 PM CDT 5 mg/hr 50 mL/hr Rate Verify 04/26/2025 10:00 PM CDT 5 mg/hr 50 mL/hr nicotine (NICODERM CQ) 21 mg/24 hr transdermal patch 1 Patch 1 Patch, Transdermal, DAILY, First dose on Sat04/27/25 at 0900, Until Discontinued, Routine Applied 04/27/2025 8:42 AM CDT 1 Patch Arm, Right nicotine polacrilex (NICORETTE) gum 2 mg 2 mg, See Admin Instructions, EVERY 2 HOURS PRN, Starting on Sat04/26/25 at 2033, Until Sat04/27/25 at 173, Smoking Cessation, Routine ondansetron (ZOFRAN) 4 mg/2 mL injection 4 mg 4 mg, IV, EVERY 6 HOURS PRN, Starting on Sat04/26/25 at 2026, Until Sat04/27/25 at 1733, Nausea/Emesis, Routine Given 04/26/2025 8:59 PM CDT 4 mg oxyCODONE (ROXICODONE) tablet 5 mg 5 mg, Oral, EVERY 4 HOURS PRN, Starting on Sat04/26/25 at 2025, Until Sat04/27/25 at 1733, Pain (See admin instructions), Routine Given 04/27/2025 2:13 PM CDT 5 mg Given 04/27/2025 9:30 AM CDT 5 mg Given 04/27/2025 5:28 AM CDT 5 mg sodium chloride 0.9 % bolus solution 1,000 mL 1,000 mL, See Admin Instructions, ONE TIME ONLY, 1 dose, On Sat04/27/25 at 1015, at 2,000 mL/hr, Administer over 30 Minutes, Routine New Bag 04/27/2025 10:01 AM CDT 1,000 mL 2000 mL/hr Other (Comment) sodium chloride 0.9 % flush bag 25 mL 25 mL, IV, SEE ADMIN INSTRUCTIONS, Starting on Sat04/26/25 at 2024, Until Sat04/27/25 at 1733, Routine sodium chloride flush injection 10 mL 10 mL, IV, EVERY 12 HOURS (BlD), First dose on Sat04/26/25 at 2100, Until Discontinued, Routine Given 04/27/2025 8:47 AM CDT 10 mL Given 04/26/2025 9:46 PM CDT 10 mL sodium chloride flush injection 10 mL 10 mL, IV, SEE ADMIN INSTRUCTIONS, Starting on Sat04/26/25 at 2025, Until Sat04/27/25 at 1733, Routine sodium zirconium cyclosilicate (LOKELMA) oral powder packet 10 Gram 10 Gram, Oral, ONE TIME ONLY, 1 dose, On Sat04/26/25 at 2315, Routine Given 04/26/2025 11:37 PM CDT 10 Grams traZODone (DESYREL) tablet 50 mg 50 mg, Oral, DAILY AT BEDTIME, First dose on Sat04/26/25 at 2100, Until Discontinued, Routine, Previous Med: traZODone (DESYREL) 50 mg tablet - Orig Sig - Take 50 mg by mouth daily at bedtime. Given 04/26/2025 9:45 PM CDT 50 mg documented in this encounter Active and Recently Administered Medications Times are shown in CDT. Scheduled Medication Order 04/25/2025 04/26/2025 04/27/2025 amitriptyline (ELAVIL) tablet 50 mg 50 mg, Oral, DAILY AT BEDTIME, First dose on Sat04/26/25 at 2100, Until Discontinued, Routine, Previous Med: amitriptyline (ELAVIL) 50 mg tablet - Orig Sig - Take 1 Tablet (50 mg) by mouth daily at bedtime. 2145 (Given - Provider: Cheng Olivera RN) amLODIPine (NORVASC) tablet 10 mg 10 mg, Oral, DAILY, First dose on Sat04/27/25 at 0900, Until Discontinued, Routine, Previous Med: amLODIPine (NORVASC) 10 mg tablet - Orig Sig - Take 1 Tablet (10 mg) by mouth daily. 845 (Given - Provid er: Jose Manuel Mckeon RN) ARIPiprazole (ABILIFY) tablet 5 mg 5 mg, Oral, DAILY, First dose on Sat04/27/25 at 0900, Until Discontinued, Routine, Previous Med: ARIPiprazole (Abilify) 5 mg tablet - Orig Sig - Take 1 Tablet (5 mg) by mouth daily. 0848 (Given - Provid er: Jose Manuel Mckeon RN) aspirin (ECOTRIN EC) tablet 81 mg 81 mg, Oral, DAILY, First dose on Sat04/27/25 at 0900, Until Discontinued, Routine, Previous Med: aspirin (ECOTRIN EC) 81 mg Tablet, Delayed Release (E.C.) - Orig Sig - Take 1 Tablet (81 mg) by mouth daily. 0846 (Given - Provid er: Jose Manuel Mckeon RN) atorvastatin (LIPITOR) tablet 80 mg 80 mg, Oral, DAILY, First dose on Sat04/27/25 at 0900, Until Discontinued, Routine, Previous Med: atorvastatin (LIPITOR) 80 mg tablet - Orig Sig - Take 1 Tablet (80 mg) by mouth daily. 0846 (Given - Provid er: Jose Manuel Mckeon RN) bumetanide (BUMEX) tablet 1 mg 1 mg, Oral, DAILY, First dose on Sat04/27/25 at 0900, Until Discontinued, Routine, Previous Med: bumetanide (BUMEX) 1 mg tablet - Orig Sig - Take 1 Tablet by mouth. 0848 (Given - Provid er: Jose Manuel Mckeon RN) buPROPion HCL (WELLBUTRIN XL) 24 hour tablet 150 mg 150 mg, Oral, DAILY, First dose on Sat04/27/25 at 0900, Until Discontinued, Routine, Previous Med: buPROPion HCL (WELLBUTRIN XL) 150 mg Extended Release 24 hour tablet - Orig Sig - Take 1 Tablet (150 mg) by mouth daily. 929 (Given - Provid er: Jose Manuel Mckeon RN) carvediloL (COREG) tablet 25 mg 25 mg, Oral, EVERY 12 HOURS, First dose on Sat04/26/25 at 2044, Until Discontinued, Routine, Previous Med: carvediloL (COREG) 25 mg tablet - Orig Sig - Take 1 Tablet (25 mg) by mouth every 12 hours. 2145 (Given - Provider: Cheng Olivera RN) 47 (Given - Provider: Jose Manuel Mckeon RN) cloNIDine HCL (CATAPRES) tablet 0.2 mg 0.2 mg, Oral, THREE TIMES DAILY, First dose on Sat04/26/25 at 2044, Until Discontinued, Routine, Previous Med: cloNIDine HCL (CATAPRES) 0.2 mg tablet - Orig Sig - Take 1 Tablet (0.2 mg) by mouth 3 times daily. 2144 (Given - Provider: Cheng Olivera RN) 0846 (Given - Provider: Jose Manuel Mckeon RN)1250 (Given - Provider: Jose Manuel Mckeon RN) dextrose 5 % - sodium chloride 0.9 % infusion IV, at 40 mL/hr, SEE ADMIN INSTRUCTIONS, Starting on Sat04/26/25 at 202, Until Sat04/27/25 at 1733, Routine dextrose 5 % in water 250 mL flush bag 25 mL 25 mL, IV, SEE ADMIN INSTRUCTIONS, Starting on Sat04/26/25 at 202, Until Sat04/27/25 at 1733, Routine dextrose 50% (D50) syringe 12.5 Gram 12.5 Gram, IV, SEE ADMIN INSTRUCTIONS, Starting on Sat04/26/25 at 2028, Until Sat04/27/25 at 1733, Routine dextrose 50% (D50) syringe 25 Gram 25 Gram, IV, SEE ADMIN INSTRUCTIONS, Starting on Sat04/26/25 at 2028, Until Sat04/27/25 at 1733, Routine fentaNYL PF (SUBLIMAZE) 50 mcg/mL injection 100 mcg (COMPLETED) 100 mcg, IV, ONE TIME ONLY, 1 dose, On Sat04/26/25 at 1800, Routine 1842 (Given - Provider: Suleman Cee RN) gabapentin (NEURONTIN) capsule 100 mg 100 mg, Oral, THREE TIMES DAILY, First dose on Sat04/26/25 at 2045, Until Discontinued, Routine, Previous Med: gabapentin (NEURONTIN) 100 mg capsule - Orig Sig - Take 1 Capsule (100 mg) by mouth 3 times daily. 2144 (Given - Provider: Cheng Olivera RN) 0846 (Given - Provider: Jose Manuel Mckeon RN)1250 (Given - Provider: Jose Manuel Mckeon RN) heparin injection 5,000 Units 5,000 Units, subCUT, EVERY 8 HOURS, First dose on Sat04/27/25 at 0500, Until Discontinued, Routine 0529 (Given - Provid er: Cheng Olivera RN)1300 (Refused - Provider: Jose Manuel Mckeon RN) hydrALAZINE (APRESOLINE) tablet 100 mg 100 mg, Oral, EVERY 8 HOURS, First dose on Sat04/26/25 at 2100, Until Discontinued, Routine, Previous Med: hydrALAZINE (APRESOLINE) 100 mg Tablet tablet - Orig Sig - Take 1 Tablet (100 mg) by mouth every 8 hours. 2144 (Given - Provider: Cheng Olivera RN) 0528 (Given - Provider: Cheng Olivera RN)1250 (Given - Provider: Jose Manuel Mckeon RN) insulin glargine (LANTUS) injection 25 Units 25 Units, subCUT, TWO TIMES DAILY, First dose on Sat04/26/25 at 2100, Until Discontinued, Routine 2151 (Given - Provider: Cheng Olivera RN - Comment: BG 230) 0849 (Given - Provider: Jose Manuel Mckeon RN) insulin lispro (HumaLOG,ADMELOG) injection 0-12 Units 0-12 Units, subCUT, THREE TIMES DAILY WITH MEALS, First dose on Sat04/27/25 at 0800, Until Discontinued, Routine 0800 (Not Given - Provider: Jose Manuel Mckeon RN - Reason: Lab results / vitals)1200 (Not Given - Provider: Jose Manuel Mckeon RN - Reason: Lab results / vitals) insulin lispro (HumaLOG,ADMELOG) injection 0-6 Units 0-6 Units, subCUT, DAILY AT BEDTIME, First dose on Sat04/26/25 at 2100, Until Discontinued, Routine 2150 (Not Given - Provider: Cheng Olivera RN - Reason: Lab results / vitals - Comment: BG 230) Lidocaine 4 % topical patch 1 Patch 1 Patch, Topical, DAILY, First dose on Sat04/26/25 at 2030, Until Discontinued, Routine 2146 (Applied - Provider: Cheng Olivera RN) 0842 (Removed - Provider: Jose Manuel Mckeon RN)0844 (Applied - Provider: Jose Manuel Mckeon RN)1515 (Due: Removed - Provider: PROVIDER, DISCHARGE PATIENT - Comment: Time automatically adjusted from order being discontinued) naloxone (NARCAN) 0.4 mg/mL injection 0.1 mg 0.1 mg, IV, SEE ADMIN INSTRUCTIONS, Starting on Sat04/26/25 at 2027, Until Sat04/27/25 at 1733, Routine nicotine (NICODERM CQ) 21 mg/24 hr transdermal patch 1 Patch 1 Patch, Transdermal, DAILY, First dose on Sat04/27/25 at 0900, Until Discontinued, Routine 0842 (Applied - Prov ider: Jose Manuel Mckeon RN)1515 (Due: Removed - Provider: PROVIDER, DISCHARGE PATIENT - Comment: Time automatically adjusted from order being discontinued) sodium chloride 0.9 % bolus solution 1,000 mL (COMPLETED) 1,000 mL, See Admin Instructions, ONE TIME ONLY, 1 dose, On Sat04/27/25 at 1015, at 2,000 mL/hr, Administer over 30 Minutes, Routine 1001 (New Bag - Prov ider: Tessa Fagan RN - Comment: DIALYSIS)1031 (Stopped - Provider: Tessa Fagan RN) sodium chloride 0.9 % flush bag 25 mL 25 mL, IV, SEE ADMIN INSTRUCTIONS, Starting on Sat04/26/25 at 202, Until Sat04/27/25 at 1733, Routine sodium chloride flush injection 10 mL 10 mL, IV, EVERY 12 HOURS (BlD), First dose on Sat04/26/25 at 2100, Until Discontinued, Routine 2146 (Given - Provider: Cheng Olivera RN) 0847 (Given - Provider: Jose Manuel Mckeon RN) sodium chloride flush injection 10 mL 10 mL, IV, SEE ADMIN INSTRUCTIONS, Starting on Sat04/26/25 at 202, Until Sat04/27/25 at 1733, Routine sodium zirconium cyclosilicate (LOKELMA) oral powder packet 10 Gram (COMPLETED) 10 Gram, Oral, ONE TIME ONLY, 1 dose, On Sat04/26/25 at 2315, Routine 2337 (Given - Provider: Cheng Olivera RN) spironolactone (ALDACTONE) tablet 25 mg 25 mg, Oral, DAILY, First dose on Sat04/27/25 at 0900, Until Discontinued, Routine, Previous Med: spironolactone (ALDACTONE) 25 mg tablet - Orig Sig - Take 1 Tablet (25 mg) by mouth daily. , On hold since Sat04/26/2025 at 2332 until manually unheld 2331 (Held by Provider - Provider: Ben Porter MD - Reason: Lab results / vitals) 0900 (Automatically Held - Provider: Ben Porter MD)1733 (Order Unhold - Provider: PROVIDER, DISCHARGE PATIENT) traZODone (DESYREL) tablet 50 mg 50 mg, Oral, DAILY AT BEDTIME, First dose on Sat04/26/25 at 2100, Until Discontinued, Routine, Previous Med: traZODone (DESYREL) 50 mg tablet - Orig Sig - Take 50 mg by mouth daily at bedtime. 2144 (Given - Provider: Cheng Olivera RN) Continuous Medication Order 04/25/2025 04/26/2025 04/27/2025 niCARdipine (CARDENE) 25 mg in sodium chloride 0.9 % 250 mL infusion (CANCELED) 0-15 mg/hr (0-150 mL/hr), IV, TITRATE, Starting on Sat04/26/25 at 1830, Until Sat04/27/25 at 0530, Should this infusion be titrated? Yes, Initial infusion dose? 5 mg/hr, Titration Dose Increment? 2.5 mg/hr, Titration Interval? 10 minutes, Goal Type? SBP Goal, SBP Goal? Other (see comments), Goal: 180 1850 (New Bag - Provider: Suleman Cee RN)1900 (Rate Verify - Provider: Cheng Olivera RN)2000 (Rate Verify - Provider: Cheng Olivera RN)2100 (Rate Verify - Provider: Cheng Olivera RN)2200 (Rate Verify - Provider: Cheng Olivera RN)2201 (Rate Verify - Provider: Cheng Olivera RN)2300 (Rate Verify - Provider: Cheng Olivera RN)2336 (Stopped - Provider: Cheng Olivera RN) PRN Medication Order 04/25/2025 04/26/2025 04/27/2025 acetaminophen (TYLENOL) tablet 650 mg 650 mg, Oral, EVERY 6 HOURS PRN, Starting on Sat04/26/25 at 2025, Until Sat04/27/25 at 1733, Other (See Comment), See admin instructions, Routine hydrALAZINE (APRESOLINE) 20 mg/mL injection 10 mg 10 mg, IV, EVERY 6 HOURS PRN, Starting on Sat04/27/25 at 0530, Until Sat04/27/25 at 1733, Blood Pressure, systolic blood pressure greater than 170, Routine morphine 4 mg/mL injection 2 mg 2 mg, IV, EVERY 4 HOURS PRN, 6 doses, Starting on Sat04/26/25 at 202, Until Sat04/27/25 at 1733, Pain (See admin instructions), Routine 210 (Given - Provider: Raphael Szymanski RN) nicotine polacrilex (NICORETTE) gum 2 mg 2 mg, See Admin Instructions, EVERY 2 HOURS PRN, Starting on Sat04/26/25 at 2034, Until Sat04/27/25 at 1733, Smoking Cessation, Routine ondansetron (ZOFRAN) 4 mg/2 mL injection 4 mg 4 mg, IV, EVERY 6 HOURS PRN, Starting on Sat04/26/25 at 2026, Until Sat04/27/25 at 1733, Nausea/Emesis, Routine 2058 (Given - Provider: Raphael Szymanski RN) oxyCODONE (ROXICODONE) tablet 5 mg 5 mg, Oral, EVERY 4 HOURS PRN, Starting on Sat04/26/25 at 2025, Until Sat04/27/25 at 1733, Pain (See admin instructions), Routine 0528 (Given - Provid er: Cheng Olivera RN)0930 (Given - Provider: Jose Manuel Mckeon RN)1413 (Given - Provider: Jose Manuel Mckeon RN) documented in this encounter Care Teams Social Work Associate Relationship Specialty Start Date End Date Duke Alarcon MD [address] [phone] PCP - General Family Practice 08/10/24 documented as of this encounter
[2025-05-01 20:41] VITALS: BP 195/94; PULSE 100; RESP 16; TEMP 36.8; O2SAT 96; BMI 24.4
--- OUTSIDE RECORDS SUMMARY | 2025-05-01 20:53 | XMS_ITS | Encounter Summary ---
Author Organization [facility] Address [address] [place] [address] Phone Care Team Providers Care Mortgage Loan Counselor Name Role Phone Duke Alarcon MD Primary Care Provider [phone] Encounter Details Date Type Department Care Team (Late st Contact Info) Description 04/28/2025 Telephone [facility] [address] [place] [address] Breonna Barnett NP [address] [place] [address] Social History Tobacco Use Types Packs/Day Years Used Date Smoking Tobacco: Every Day Cigarettes Passive Smoke Exposure: Current Smokeless Tobacco: Never Alcohol Use Standard Drinks/Week Comments Never 0 (1 standard drink = 0.6 oz pur e alcohol) Sex and Gender Information Value Date Recorded Sex Assigned at Not on file Legal Sex Male 9:57 AM EDT Gender Identity Not on file Sexual Orientation Not on file documented as of this encounter Miscellaneous Notes * Addendum Note - Darlin Muñoz MA - 04/29/2025 9:03 AM CDTAddended by: DARLIN MUÑOZ on: 04/29/2025 09:03 AM Modules accepted: Orders * Telephone Encounter - Darlin Muñoz MA - 04/29/2025 8:52 AM CDT Transition of Care: Medication Reconciliation and Follow Up Call Documentation Hunter San was discharged from [facility] on 04/27/2025. I called to speak with patient and/ or caregiver and was able to speak with Hunter regarding transition of care. Does the patient use a home health agency: No. The patient does not use home health. Allergies and medications were reconciled with patient and updated in [facility]0 today. Does the patient express any concerns about medication compliance or keeping follow up appointments: No Education was provided to patient regarding need for medication compliance and keeping follow up appointments with any prior to appointment labs ordered. Were community and health resources available to the patient discussed: No Was help provided to the patient or family to assist with getting access to care and services they may need: No Is the patient ESRD or an acute kidney injury patient currently on dialysis: yes The patient has been scheduled for transition of care visit with provider during next dialysis rounds. * Telephone Encounter - Breonna Barnett NP - 04/28/2025 1:16 PM CDT Transition of Care (YSABEL) Medication Reconciliation and Follow Up Needed Hunter San was recently admitted at [facility]. Discharge Date: 04/27/2025 Please call patient within 48 hrs of discharge to confirm any changes to allergies and medications following discharge. Is he an ESRD patient?: Yes. Please send updated medication list to patient's dialysis unit. Make sure dialysis unit is aware patient will need a Transition of Care (YSABEL) visit next time a provider rounds at dialysis unit. Prior to appointment labs: N/A [facility] Thank you, Breonna Barnett NP * Telephone Encounter - Breonna Barnett NP - 04/28/2025 1:16 PM CDT Patient: Hunter San : 1990 C: Hospital Chart Number: Hospital: [facility] Room: 6265-1 Attending Provider: Referring Provider: Admit Date: 04/26/2025 Consult Date: 04/27/2025 Discharge Date: 04/28/2025 Disposition: Discharge Comment: Discharged by: Urvashi White on 04/28/2025 Follow-up: Yes Follow-up Timing: Follow-up Provider: Follow-up Location: Follow-up Notes/Orders/Labs: HD YSABEL *[facility] Enrollment Info* Modality: IHD Dialysis Provider: HODAN VALERA MD Dialysis Location: [facility] Schedule: Shift: 2 documented in this encounter Plan of Treatment Not on file documented as of this encounter Visit Diagnoses Not on filedocumented in this encounter Care Teams Mortgage Loan Counselor Relationship Specialty Start Date End Date Duke Alarcon MD [address] [facility] [address] [place] [phone] PCP - General Family Medicine 08/12/24 documented as of this encounter
--- OUTSIDE RECORDS SUMMARY | 2025-05-01 20:53 | XMS_ITS | Encounter Summary ---
Author Organization [facility] Address [address] [place] [address] Care Team Providers Care Agricultural Inspector Name Role Phone Karlo Banks MD Primary Care Provider [phone] Encounter Details Date Type Department Care Team (Latest Contact Info) Description 11/01/2003 Outpatient Historical [facility] [address] [place] [phone] Holland Bell MD [address] [place] [address] ASTHMA UNSPECIFIED (Primary Dx) Social History Tobacco Use Types Packs/Day Years Used Date Smoking Tobacco: Never Assessed Sex and Gender Information Value Date Recorded Sex Assigned at Not on file Legal Sex Male 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
--- OUTSIDE RECORDS SUMMARY | 2025-05-01 20:53 | XMS_ITS | Encounter Summary ---
Author Organization [facility] Address [address] [place] [address] Phone Care Team Providers Care Glue Mixer Name Role Phone Duke Alarcon MD Primary Care Provider [phone] Encounter Details Date Type Department Care Team (Late st Contact Info) Description 04/29/2025 Documentation Only [facility] [address] [place] [address] Anne Muñoz MA [address] [place] [address] Social History Tobacco Use Types [...] on filedocumented in this encounter Care Teams Glue Mixer Relationship Specialty Start Date End Date Duke Alarcon MD [address] [place] [phone] PCP - General Family Medicine 08/12/24 documented as of this encounter
--- OUTSIDE RECORDS SUMMARY | 2025-05-01 20:53 | XMS_ITS | Encounter Summary ---
Author Organization [facility] Address [address] [place] [address] Care Team Providers Care News Content Specialist Name Role Phone Karlo Banks MD Primary Care Provider [phone] Encounter Details Date Type Department Care Team (Late st Contact Info) Description 07/11/2015 Lab Requisition [facility] [place] [address] [place] [phone] Jyoti Shirley, PRINTING SHOP SUPERVISOR [address] [place] [phone] Social History Tobacco Use Types Packs/Day Years Used Date Smoking Tobacco: Former Cigarettes Alcohol Use Standard Drinks/Week Comments No 0 (1 standard drink = 0.6 oz pur e alcohol) Sex and Gender Information Value Date Recorded Sex Assigned at Not on file 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 MICROALBUMIN/CR EAT RATIO, UR 413.9 mg/g Creatinine 07/11/2015 11:45 PM CDT [facility] Comment: Condition mg/g Creatinine Normal Males <17 Normal Females <25 Microalbuminuria Males 17-299 Microalbuminuria Females 25-299 Overt proteinuria >=300 Urine 07/11/2015 10:5 3 PM CDT 07/11/2015 10:53 PM CDT Jyoti Shirley PRINTING SHOP SUPERVISOR URINE ORDERABLES Final Result [facility] CLIA # [id number] [address] [place] [address] * (ABNORMAL) LIPID PANEL (07/11/2015 10:53 PM CDT) CHOLESTEROL 204(H) <200 mg/dL 07/11/2015 11:21 PM CDT [facility] TRIGLYCERIDE 276(H) <150 mg/dL 07/11/2015 11:21 PM CDT [facility] HDL 25(L) 40 - 59 mg/dL 07/11/2015 11:21 PM CDT [facility] LDL CALCULATED 124(H) <100 mg/dL 07/11/2015 11:21 PM CDT [facility] NON-HDL CHOLESTEROL 179(H) <130 mg/dL 07/11/2015 11:21 PM CDT [facility] Blood 07/11/2015 10:5 3 PM CDT 07/11/2015 10:53 PM CDT Narrative [facility] - 07/11/2015 11:21 PM CDT [...] >=220 Based on AHA/NCEP Guidelines Jyoti Shirley [facility] CHEMISTRY ORDERABLES Final Resu lt Performing Organization Address [facility] de Phone Number [facility] CLIA # [id number] [address] [place] [phone] * (ABNORMAL) HEMOGLOBIN A1C (07/11/2015 10:53 PM CDT) HEMOGLOBIN A1C 10.6(H) 4.8 - 5.9 % 07/11/2015 11:16 PM CDT [facility] EST. AVG GLUCOSE, A1C 258 mg/dL 07/11/2015 11:16 PM CDT [facility] Blood 07/11/2015 10:5 3 PM CDT 07/11/2015 10:53 PM CDT Jyotivadim Shirley [facility] CHEMISTRY ORDERABLES Final Resu lt Performing Organization Address [facility]/ZIP Co de Phone Number [facility] CLIA # [id number] [address] [place] [phone] * (ABNORMAL) COMPREHENSIVE METABOLIC PANEL (07/11/2015 10:53 PM CDT) SODIUM 129(L) 136 - 145 mmol/L 07/11/2015 11:21 PM [facility] POTASSIUM 3.6 3.5 - 5.1 mmol/L 07/11/2015 11:21 PM [facility] CHLORIDE 87(L) 98 - 107 mmol/L 07/11/2015 11:21 PM [facility] CO2 25 22 - 29 mmol/L 07/11/2015 11:21 PM [facility] CALCIUM 9.3 8.6 - 10.0 mg/dL 07/11/2015 11:21 PM [facility] BUN 12 6 - 20 mg/dL 07/11/2015 11:21 PM [facility] CREATININE 0.61(L) 0.67 - 1.17 mg/dL 07/11/2015 11:21 PM [facility] GLUCOSE 287(H) 74 - 106 mg/dL 07/11/2015 11:21 PM [facility] TOTAL PROTEIN 8.1 6.6 - 8.7 g/dL 07/11/2015 11:21 PM [facility] ALBUMIN 4.5 3.5 - 5.2 g/dL 07/11/2015 11:21 PM [facility] BILIRUBIN TOTAL 2.7(H) 0.0 - 1.2 mg/dL 07/11/2015 11:21 PM [facility] ALKALINE PHOSPHATASE 93 40 - 129 U/L 07/11/2015 11:21 PM [facility] AST 19 10 - 50 U/L 07/11/2015 11:21 PM [facility] [employer] [facility] ALT 15 10 - 50 U/L 07/11/2015 11:21 PM [facility] [employer] [facility] GFR >60 >=60 mL/min/1.7 3 sq meter 07/11/2015 11:21 PM [facility] [employer] [facility] Comment: eGFR has not been validated for [...] 3 sq meter 07/11/2015 11:21 PM CDT [facility] ANION GAP 17 12 - 20 mmol/L 07/11/2015 11:21 PM CDT [facility] Blood 07/11/2015 10:5 3 PM CDT 07/11/2015 10:53 PM CDT Jyoti Shirley PRINTING SHOP SUPERVISOR CHEMISTRY ORDERABLES Final Resu lt [facility] CLIA # [id number] [address] [place] [address] documented in this encounter Visit Diagnoses Not on filedocumented in this encounter Care Teams News Content Specialist Relationship Specialty Start Date End Date Karlo Banks MD PCP - General Internal Medicine 10/14/14 01/11/21 documented as of this encounter
--- OUTSIDE RECORDS SUMMARY | 2025-05-01 20:53 | XMS_ITS | Encounter Summary ---
Author Organization [facility] Address [address] [place] [address] Phone Care Team Providers Care Coding Director Name Role Phone Duke Alarcon MD Primary Care Provider [phone] Encounter Details Date Type Department Care Team (Late st Contact Info) Description 04/29/2025 Orders Only [facility] [address] [place] [address] Angélica Ny MD [address] [place] [address] Social History Tobacco Use Types [...] Procedure Name Priority Date/Time Associated Diagnosis Comments HEMATOLOGY Routine 04/29/2025 documented in this encounter Results * (ABNORMAL) HEMATOLOGY (04/29/2025) Hemoglobin 9.0(L) 14.0 - 18.0 g/dL [facility] Hemoglobin x 3 27(L) 42.0 - 54.0 % [facility] 04/29/2025 04/30/2025 10: 54 AM CDT Narrative ANTHONY - 04/30/2025 Unless otherwise specified, test(s) performed at: [facility], [address] [place], [place] [id number] EQUITY TRADER: Ulises De Paz M.D. For any questions, please call customer service at FREQUENCY:OTHER Resulting Agency Comment Specimen source: Blood Angélica Ny MD LAB BLOOD ORDERABLES Final Re sult [facility] See order comments or contact performing lab Unknown, [place] documented in this encounter Visit Diagnoses Not on filedocumented in this encounter Care Teams Coding Director Relationship Specialty Start Date End Date Duke Alarcon MD [address] [facility] [address] [place] [address] PCP - General Family Medicine 08/12/24 documented as of this encounter
--- OUTSIDE RECORDS SUMMARY | 2025-05-01 20:53 | XMS_ITS | Encounter Summary ---
Author Organization [facility] Address [address] [place] [address] Care Team Providers Care Paper Wrapping Machine Operator Name Role Phone Karlo Banks MD Primary Care Provider [phone] Encounter Details Date Type Department Care Team (Latest Contact Info) Description 02/24/2004 Outpatient Historical [facility] [address] [place] [phone] Holland Bell MD [address] [place] [id number] CONJUNCTIVITIS NOS (Primary Dx) Social History Tobacco Use Types Packs/Day Years Used Date Smoking Tobacco: Never Assessed Sex and Gender Information Value Date Recorded Sex Assigned at Not on file 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
--- OUTSIDE RECORDS SUMMARY | 2025-05-01 20:53 | XMS_ITS | Encounter Summary ---
Author Organization [facility] Address [address] [place] [address] Phone Care Team Providers Care Marine Services Technician Name Role Phone Duke Alarcon MD Primary Care Provider [phone] Encounter Details Date Type Department Care Team (Late st Contact Info) Description 04/20/2025 TCM in Dialysis Clinic [facility] [address] [place] [address] Jacki Gill NP [address] [place] [address] Social History Tobacco Use Types [...] on file documented as of this encounter Progress Notes * Jacki Gill NP - 04/20/2025 12:00 AM CDT Patient: Hunter San : 1990 Note Type: Dialysis TCM Service Date: 04/20/2025 The patient was seen for a [id number] visit as part of Transitional Care Management services. Primary cause of renal failure: E10.22 - Type 1 diabetes mellitus with diabetic chronic kidney disease Attending Oven Baker: HODAN VALERA Dialysis Location: [facility] Schedule: Shift: 2 HOSPITALIZATION SUMMARY Patient transitioned from: Hospital Patient transitioned to: Home Admit Date: 04/11/2025 Discharge Date: 04/14/2025 Discharged info reviewed: No outstanding diagnostic tests and treatments Reason for admission: Hypertensive crisis HOME MEDICATIONS Discharge med list reviewed - changes reconciled and discussed with patient. Active treatment medication orders reviewed - no changes. COMMENTS: Reviewed discharge record medication list, written and verbal with patient, and discussed maintaining compliance Current [facility] Medications Abilify 5 mg tablet Take 1 tablet by mouth once a day. amitriptyline 50 mg tablet Take 1 tablet by mouth every night. amlodipine 10 mg tablet Take 1 tablet by mouth every morning. aripiprazole 5 mg tablet Take 1 tablet by mouth once a day. aspirin 81 mg tablet,delayed release (DR/EC) Take 1 tablet by mouth once a day. atorvastatin 80 mg tablet Take by mouth once a day. benzonatate 100 mg capsule Take 1 capsule by mouth three times a day as needed. [for cough] bumetanide 1 mg tablet Take 1 tablet by mouth once a day. [Take on non- HD Days four times per week] bupropion HCl 150 mg tablet extended release 24 hr Take 1 tablet by mouth once a day. carvedilol 25 mg tablet Take 1 tablet by mouth every twelve hours. cyclobenzaprine 10 mg tablet Take 1 tablet by mouth three times a day as needed. [for muscle spasms] epinephrine 0.3 mg/0.3 mL auto-injector [Inject 0.3 ML by Intramuscular injection 1 time daily needed for ANAPHYLAXIS] gabapentin 100 mg capsule Take 1 capsule by mouth three times a day. hydralazine 100 mg tablet 1 tablet by mouth twice a day. hydrocodone-acetaminophen 5-325 mg tablet Take 1 tablet by mouth every eight hours as needed for pain. insulin lispro 100 unit/mL insulin pen Inject 2-10 unit subcutaneously three times a day as directed. [Per Medium dose sliding scale. Take before meals.] Lantus Solostar U-100 Insulin 100 unit/mL (3 mL) insulin pen Inject 20 subcutaneously twice a day. lidocaine 4% adhesive patch,medicated once a day as needed for pain. [apply lidocaine patch on lumbar spine] ondansetron HCl 4 mg tablet Take 1 tablet by mouth every six hours as needed. [for nausea and vomiting] sevelamer carbonate 800 mg tablet Take 2 tablet by mouth three times a day with meals. varenicline tartrate 0.5 mg tablet Take as directed. Current [facility] Allergies Allergen: DAVID INHIBITORS Reaction: Cardiac Arrest Severity: Severe Allergen: ARB-Angiotensin Receptor Antagonist Reaction: Cardiac Arrest Severity: Severe Allergen: bee venom protein (honey bee) Reaction: Hives Severity: Moderate Allergen: LISINOPRIL Reaction: Dyspnea Severity: Mild TREATMENT MEDICATIONS ORDERS Heparin Sodium (Porcine) 1,000 Units/mL Catheter Lock Arterial 2000 units Arterial Red Port Every Treatment Post Dialysis 12/10/2024 - 12/09/2025 Heparin Sodium (Porcine) 1,000 Units/mL Catheter Lock Venous 2000 units Venous Blue Port Every Treatment Post Dialysis 12/10/2024 - 12/09/2025 Heparin Sodium (Porcine) 1,000 Units/mL Systemic 7000 units IVP Every Treatment 12/24/2024 - 12/23/2025 PHYSICAL EXAM Exam performed. Vital Signs Reviewed. Lungs - Clear. 1+ edema. COMMENTS: Challenge EDW as tolerated, BP elevated, impaired compliance, educated as above DIALYSIS PRESCRIPTION COMMENTS: Reviewed fluid control, challenge as tolerated Treatment Data Treatment Date: 04/20/2025 started at: 12:58 PM Dialysate / Machine Temp (prescribed): 37.0*C Dialysate / Machine Temp (actual): 36.0*C BFR (prescribed): 450 BFR (average delivered): 450 DFR (prescribed): Autoflow 2.0 DFR (average delivered): 800 Prescribed Time: 04:00 Actual Time: 03:47 EDW (kg): 89.1 Dialyzer: 180NRe Optiflux Dialysate: 2.0 K, 2.5 Ca, 1.0 Mg, 100 Dextrose (G2251) Sodium: 138 Bicarb: 36 Pre Dialysis Vitals Pre BP Sit: 207/124 Pre Wt (kg): 97.8 EDW Deviation (kg): 8.7 Temp: 97.3*F Post Dialysis Vitals Post BP Sit: 193/101 Post Wt (kg): 93.6 CARE COORDINATION Post-discharge follow-up appointments reviewed with the patient. COMMENTS: Reviewed follow up with endocrinology, cardiology, pcp and pain clinic EDUCATION Education relevant to the discharge diagnosis provided to the patient or caregiver VISIT DIAGNOSES CPT Code 49590 - High complexity, seen 8-14 days post discharge or moderate complexity, seen [id number] days of discharge. I16.0 Hypertensive urgency COMMENTS: Reviewed potassium control and medication compliance to manage BP appropriately. Follow with pain clinic for pain management Signed by: JACKI GILL NP on 04/20/2025 at 08:19:51 PM Transcribed by: JACKI GILL NP on 04/20/2025 at 08:19:51 PM documented in this encounter Plan of Treatment Not on file documented as of this encounter Visit Diagnoses Not on filedocumented in this encounter Care Teams Marine Services Technician Relationship Specialty Start Date End Date Duke Alarcon MD [address] [address] PCP - General Family Medicine 08/12/24 documented as of this encounter
--- OUTSIDE RECORDS SUMMARY | 2025-05-01 20:53 | XMS_ITS | Clinical Summary ---
Author Organization [facility] Facility Address [address] [address] Care Team Providers Care Furnace Tender Name Role Phone Duke Alarcon MD Primary Care Provider [phone] Allergies Active Allergy Reactions Criticality Noted Date Comments Bee Venom 08/24/2024 Lisinopril 08/24/2024 Medications amitriptyline (ELAVIL) 50 MG tablet Take 50 mg by mouth at bed time 07/29/20 24 Active amLODIPine (NORVASC) 10 MG tablet Take 10 mg by mouth 1 (one) time each day 07/16/20 24 Active buPROPion XL (WELLBUTRIN XL) 150 MG 24 hr tablet Take 150 mg by mouth 1 (one) time each day 06/19/20 24 Active EPINEPHrine (EPIPEN) 0.3 MG/0.3ML injection syringe Inject 1 Syringe under the skin 1 (one) time 07/16/20 24 Active hydrALAZINE 100 MG tablet Take 100 mg by mouth every 8 (eight) hours 07/16/20 24 Active Lantus SoloStar 100 UNIT/ML injection Inject 15 Units under the skin in the morning and 15 Units in the evening. 07/16/20 24 Active Insulin Lispro, 1 Unit Dial, 100 UNIT/ML solution pen-injector Inject 10 Units under the skin in the morning and 10 Units at noon and 10 Units in the evening. 07/16/20 24 Active carvedilol (COREG) 25 MG tabletIndication s:Malignant hypertension Take 1 tablet (25 mg total) by mouth every 12 (twelve) hours 60 tablet 2 08/27/20 24 Active spironolactone (Aldactone) 25 MG tablet Take 1 tablet (25 mg total) by mouth 1 (one) time each day 30 tablet 11 09/17/20 24 025 Active albuterol HFA (PROVENTIL HFA;VENTOLIN HFA) 108 (90 Base) MCG/ACT inhaler Inhale 2 puffs every 6 hours as needed 11/10/19 25 Active cloNIDine (CATAPRES) 0.1 MG tablet Take 1 tablet by mouth three x daily as needed if top blood pressure number > 200 and or bottom number > 110 10/01/20 24 Active cyclobenzaprine (FLEXERIL) 10 MG tablet Take 1 tablet by mouth in the morning and 1 tablet at noon and 1 tablet in the evening. 04/14/20 25 Active ARIPiprazole (ABILIFY) 5 MG tablet Take 5 mg by mouth 1 (one) time each day Active aspirin (ST DUKE) 81 MG EC tablet Take 81 mg by mouth 1 (one) time each day Active atorvastatin (LIPITOR) 80 MG tablet Take 80 mg by mouth 1 (one) time each day Active diphenhydrAMINE (BENADRYL) 25 MG capsule Take 25 mg by mouth 1 (one) time if needed for itching Active furosemide (LASIX) 80 MG tablet Take 80 mg by mouth in the morning and 80 mg in the evening. 07/16/20 24 025 Discontinued tiZANidine (ZANAFLEX) 4 MG tablet Take 4 mg by mouth every 8 (eight) hours if needed for muscle spasms 07/16/20 24 025 Discontinued benzonatate (TESSALON) 100 MG capsule Take 1 capsule by mouth in the morning and 1 capsule at noon and 1 capsule in the evening. 10/13/20 24 025 Discontinued prednisoLONE acetate (PRED FORTE) 1 % ophthalmic suspension Administer 1 drop into both eyes in the morning and 1 drop in the evening. 11/16/19 025 Discontinued Active Problems Problem Noted Date Diagnosed Date Type 1 diabetes mellitus wit h diabetic chronic kidney disease 08/27/2024 Malignant hypertension 08/27/2024 Persistent proteinuria 08/27/2024 Substance abuse 08/27/2024 Chronic kidney disease stage 3A 08/27/2024 Acute nontraumatic kidney injury 07/12/2024 Encounters Date Type Department Care Team Description 04/29/2025 [facility], [facility] [address] [place] [address] Angélica Ny MD 04/29/2025 Documentation Only [facility], [facility] [address] [place] [address] Anne Muñoz MA 04/28/2025 Telephone [facility], [facility] [address] [place] [address] Breonna Barnett NP 04/20/2025 TCM in Dialysis Clinic [facility], [facility] [address] [place] [address] Delia Solis NP 04/20/[address] [place] [address], [facility] [address] [place] [address] Delia Solis NP End stage renal disease; Dependence on renal dialysis 04/15/2025 Orders Only [facility], [facility] [address] [place] [id number] Angélica Ny MD 04/08/2025 Orders Only [facility], [facility] [address] [place] [address] Angélica Ny MD 04/06/[address] [place] [address], [facility] [address] [place] [address] Anju Mcleod NP End stage renal disease; Dependence on renal dialysis 04/01/2025 Orders Only [facility], [facility] [address] [place] [address] Angélica Ny MD 04/01/[address] [place] [address], [facility] [address] [place] [address] Angélcia Ny MD End stage renal disease; Dependence on renal dialysis; Type 1 diabetes mellitus with diabetic chronic kidney disease 03/25/2025 Orders Only [facility], [facility] [address] [place] [address] Angélica Ny MD 03/23/[address] [place] [address], [facility] [address] [place] [address] Anju Mcleod NP End stage renal disease; Dependence on renal dialysis 03/18/2025 [facility], [facility] [address] [place] [address] Angélica Ny MD 03/16/[address] [place] [address], [facility] [address] [place] [address] Anju Mcleod NP End stage renal disease; Dependence on renal dialysis 03/11/2025 [facility], [facility] [address] [place] [address] Angélica Ny MD 03/11/[address] [place], [place] [address]rology [facility], [facility] [address] [place] [address] Angélica Ny MD End stage renal disease; Dependence on renal dialysis 03/04/2025 [facility], [facility] [address] [place] [address] Angélica Ny MD 03/02/[address] [place] [address] [facility], [facility] [address] [place] [address] Delia Solis NP End stage renal disease; Dependence on renal dialysis; Type 1 diabetes mellitus with diabetic chronic kidney disease 02/25/2025 Orders [facility], [facility] [address] [place] [address] Angélica Ny MD 02/23/[address] [place], [place] [address]rology [facility], [facility] [address] [place] [address] Anju Mcleod NP End stage renal disease; Dependence on renal dialysis 02/18/2025 Orders Only [facility], [facility] [address] [place] [address] Angélica Ny MD 02/16/2025 Treatment [facility], [facility] [address] [place] [address] Delia Solis NP End stage renal disease; Dependence on renal dialysis 02/11/2025 [facility], [facility] [address] [place] [address] Angélica Ny MD 02/09/2025 Orders Only [facility], [facility] [address] [place] [address] Angélica Ny MD 02/04/2025 Orders Only [facility], [facility] [address] [place] [address] Angélica Ny MD 02/02/2025 [facility], [facility] [address] [place] [address] Angélica Ny MD 02/02/2025 Treatment [facility], [facility] [address] [place] [address] Angélica Ny MD End stage renal disease; Dependence on renal dialysis; Type 1 diabetes mellitus with diabetic chronic kidney disease from Last 3 Months Family History Relation Status Comments Father Alive Mother Alive Sister Alive Social History Tobacco Use Types Packs/Day Years [...] Sign Reading Time Taken Comments Blood Pressure 230/130 11/18/2024 12:57 PM PEPPER PICKER Pulse 105 11/18/2024 12:57 PM PEPPER PICKER Temperature - - Respiratory Rate - - Oxygen Saturation 97% 11/18/2024 12:57 PM PEPPER PICKER Inhaled Oxygen Concentration - - Weight 114 kg (251 lb 14.4 oz) 11/18/2024 12:57 PM PEPPER PICKER Height 182.9 cm (6') 11/18/2024 12:57 PM PEPPER PICKER Body Mass Index 34.16 11/18/2024 12:57 PM PEPPER PICKER Plan of Treatment Health Maintenance Due Date Last Done Comments Pneumococcal Vaccine: Peds ( 0 to 5 Years) and At-Risk Patients (6 to 49 Years) (1 of 2 - PCV) 2009 Hepatitis B Vaccine (1 of 5 - Risk Dialysis 4-dose series) 2010 Diabetes: Pedal Pulse Checked 07/21/2024 Diabetes: Sensory Foot Exam 07/21/2024 Diabetes: Visual Foot Exam 07/21/2024 Influenza Vaccine (#1) 2025 09/14/2024 Diabetes: Hemoglobin A1C 06/18/2025 025, 12/17/2024, 12/15/2024, Additional history exists Diabetes: Ophthalmology Exam 01/11/2026 01/11/2025, 11/02/2024 Procedures Procedure Name Priority Date/Time Associated Diagnosis Comments HEMATOLOGY Routine 04/29/2025 [facility] RESULTS Routine 04/15/2025 HD KINETICS Routine 04/15/2025 POST CHEMISTRY Routine 04/15/2025 CHEMISTRY Routine 04/15/2025 HEMATOLOGY Routine 04/15/2025 HEMATOLOGY Routine 04/08/2025 [facility] RESULTS Routine 04/01/2025 HD KINETICS Routine 04/01/2025 CHEMISTRY Routine 04/01/2025 HEMATOLOGY Routine 04/01/2025 POST CHEMISTRY Routine 04/01/2025 CHEMISTRY Routine 03/25/2025 HEMATOLOGY Routine 03/25/2025 [facility] RESULTS Routine 03/18/2025 HD KINETICS Routine 03/18/2025 CHEMISTRY Routine 03/18/2025 POST CHEMISTRY Routine 03/18/2025 SPECIAL CHEMISTRY Routine 03/18/2025 CHEMISTRY Routine 03/18/2025 HEMATOLOGY Routine 03/18/2025 HEMATOLOGY Routine 03/11/2025 HEMATOLOGY Routine 03/04/2025 HEMATOLOGY Routine 02/25/2025 [facility] RESULTS Routine 02/18/2025 HD KINETICS Routine 02/18/2025 POST CHEMISTRY Routine 02/18/2025 CHEMISTRY Routine 02/18/2025 HEMATOLOGY Routine 02/18/2025 HEMATOLOGY Routine 02/11/2025 [facility] RESULTS Routine 02/09/2025 HD KINETICS Routine 02/09/2025 POST CHEMISTRY Routine 02/09/2025 CHEMISTRY Routine 02/09/2025 HEMATOLOGY Routine 02/04/2025 [facility] LAB RESULTS Routine 02/02/2025 HD KINETICS Routine 02/02/2025 POST CHEMISTRY Routine 02/02/2025 CHEMISTRY Routine 02/02/2025 from Last 3 Months Results * (ABNORMAL) HEMATOLOGY (04/29/2025) Only the most recent of12 resultswithin the time period is included. Hemoglobin 9.0(L) 14.0 - 18.0 g/dL [facility] Hemoglobin x 3 27(L) 42.0 - 54.0 % [facility] 04/29/2025 04/30/2025 10: 54 AM CDT Narrative [facility] - 04/30/2025 Unless otherwise specified, test(s) performed at: [facility], [address] [place] [id number] ARGON TESTER: Ulises De Paz M.D. For any questions, please call customer service at FREQUENCY:OTHER Resulting Agency Comment Specimen source: Blood Angélica Ny MD LAB BLOOD ORDERABLES Final Re sult [facility] [employer] See order comments or contact performing lab Unknown, [place] * HD KINETICS (04/15/2025) Only the most recent of6 resultswithin the time period is included. % Urea Reduction 70 65 - 80 % [facility] 04/15/2025 04/17/2025 10: 47 AM CDT Narrative Resulting Agency Comment Specimen source: Plasma Angélica Ny MD LAB BLOOD ORDERABLES Final Re sult [facility] See order comments or contact performing lab Unknown, [place] * POST CHEMISTRY (04/15/2025) Only the most recent of6 resultswithin the time period is included. BUN Post Dialysis 15 6 - 19 mg/dL [facility] 04/15/2025 04/17/2025 10: 47 AM CDT Narrative [facility] - 04/17/2025 Unless otherwise specified, test(s) performed at: [facility], [address] [place] [id number] ARGON TESTER: Ulises De Paz M.D. For any questions, please call customer service at FREQUENCY:MONTHLY Resulting Agency Comment Specimen source: Plasma Angélica Ny MD LAB BLOOD ORDERABLES Final Re sult [facility] See order comments or contact performing lab Unknown, [place] * (ABNORMAL) [facility] (04/15/2025) Only the most recent of8 resultswithin the time period is included. BUN 50(H) 6 - 19 mg/dL [facility] Creatinine 7.28(H) 0.60 - 1.30 mg/dL [facility] BUN/Creatinine Ratio 6.9(L) 10.0 - 20.0 [facility] Sodium 138 136 - 145 mEq/L [facility] Potassium 6.5(H) 3.5 - 5.1 mEq/L [facility] Chloride 104 96 - 108 mEq/L [facility] Bicarbonate (CO2) 21(L) 22 - 29 mEq/L [facility] Calcium 8.0(L) 8.4 - 10.2 mg/dL [facility] Corrected Calcium 8.8 8.4 - 10.2 mg/dL [facility] Comment: Corrected Calcium is not equivalent to measured Ionized Calcium. Phosphorus 9.5(H) 2.6 - 4.5 mg/dL [facility] Calcium Phosphorus Product 76(H) 0 - 54 [facility] Calcium Phosporus Product, Cor 84(H) 0 - 54 [facility] Total Protein 5.6(L) 6.0 - 8.5 g/dL [facility] Albumin 3.0(L) 3.5 - 5.2 g/dL [facility] Globulin, Total 2.6 2.0 - 4.0 g/dL [facility] A/G Ratio 1.2 1.0 - 2.0 [facility] Glucose 237(H) 70 - 100 mg/dL [facility] Iron 44(L) 45 - 160 mcg/dL [facility] UIBC 216 155 - 355 mcg/dL [facility] TIBC 260 185 - 515 mcg/dL [facility] Iron Saturation (TSat) 17(L) 20 - 55 % [facility] 04/15/2025 04/17/2025 10: 17 AM CDT Narrative [facility] - 04/17/2025 Unless otherwise specified, test(s) performed at: [facility], [address] [place] [address] ARGON TESTER: Ulises De Paz M.D. For any questions, please call customer service at FREQUENCY:MONTHLY Resulting Agency Comment Specimen source: Serum Angélica Ny MD LAB BLOOD ORDERABLES Final Re sult [facility] See order comments or contact performing lab Unknown, [place] * [facility] Results (04/15/2025) Only the most recent of6 resultswithin the time period is included. Pathologist [facility] spKt/V Gotch 1.46 [facility] eKt/V Gotch 1.28 [facility] e Center eNPCR 0.82 Knowledge Center eKt/V ([place]) 1.28 [facility] spKt/V (Daugirdas II) 1.46 [facility] Center PCR 75.14 [facility] Center eKdrt/V 1.28 [facility] nPCR_HD 0.90 [facility] WSTDKT/V 1.6 [facility] 04/15/2025 04/15/2025 [facility] Ordering Provider LAB BLOOD ORDERABLES Final Result [facility] Center Contact Performing lab Unknown, [place] * (ABNORMAL) SPECIAL CHEMISTRY (03/18/2025) Pathologist [facility] Hemoglobin A1C 8.3(H) 4.8 - 5.9 % [facility] 03/18/2025 03/19/2025 9:5 6 AM CDT Narrative [facility] - 03/19/2025 Unless otherwise specified, test(s) performed at: [facility], [address] [place] [id number] ARGON TESTER: Ulises De Paz M.D. For any questions, please call customer service at FREQUENCY:MONTHLY Resulting Agency Comment Specimen source: Blood Angélica Ny MD LAB BLOOD BANK TEST ORDERABLE S Final Result [facility] See order comments or contact performing lab Unknown, [place] from Last 3 Months Insurance Medicare Medicaid [place] ([id number]) Care Teams Furnace Tender Relationship Specialty Start Date End Date Duke Alarcon MD [address] [address] PCP - General Family Medicine 08/12/24
--- OUTSIDE RECORDS SUMMARY | 2025-05-01 20:53 | XMS_ITS | Encounter Summary ---
Author Organization [facility] Address [address] [place] [address] Care Team Providers Care Hospital Personnel Director Name Role Phone Karlo Banks MD Primary Care Provider [phone] Encounter Details Date Type Department Care Team (Latest Contact Info) Description 06/04/2005 Outpatient Historical [facility] [address] [place] [address] Holland Bell MD [address] [place] [address] MED EXAM NEC-ADMIN PURP (Primary Dx) Social History Tobacco Use Types Packs/Day Years Used Date Smoking Tobacco: Never Assessed Sex and Gender Information Value Date Recorded Sex Assigned at Not on file Legal Sex Male 5:07 AM INSOLE AND OUTSOLE PREPARER Gender Identity Not on file Sexual Orientation Not on file documented as of this encounter Plan of Treatment Not on file documented as of this encounter Visit Diagnoses Diagnosis Other general medical examination for administrative purposes- Primary documented in this encounter Care Teams Hospital Personnel Director Relationship Specialty Start Date End Date Karlo Banks MD PCP - General Internal Medicine 10/14/14 01/11/21 documented as of this encounter
--- OUTSIDE RECORDS SUMMARY | 2025-05-01 20:53 | XMS_ITS | Encounter Summary ---
Author Organization [facility] Address [address] [place] [address] Care Team Providers Care Hoop Riveting Machine Operator Name Role Phone Karlo Banks MD Primary Care Provider [phone] Encounter Details Date Type Department Care Team (Latest Contact Info) Description 01/24/2004 Outpatient Historical [facility] [address] [place] [id number] Holland Bell MD [address] [place] [address] ASTHMA UNSPECIFIED (Primary Dx) Social History Tobacco Use Types Packs/Day Years Used Date Smoking Tobacco: Never Assessed Sex and Gender Information Value Date Recorded Sex Assigned at Not on file Legal Sex Male 5:07 AM PROSTHETIC DENTIST Gender Identity Not on file Sexual Orientation Not on file documented as of this encounter Plan of Treatment Not on file documented as of this encounter Visit Diagnoses Diagnosis Unspecified asthma(493.90)- Primary Unspecified asthma documented in this encounter Care Teams Hoop Riveting Machine Operator Relationship Specialty Start Date End Date Karlo Banks MD PCP - General Internal Medicine 10/14/14 01/11/21 documented as of this encounter
--- OUTSIDE RECORDS SUMMARY | 2025-05-01 20:53 | XMS_ITS ---
Author Name Enzo, Clinic Address [address] [place] [address] Phone [phone] [facility] e, NA DOCUMENT DISCLAIMER Multiple document versions may exist, please be sure you review the latest version. The information in the [facility] Continuity of Care Document represents a summary [...] SOCIAL HISTORY Tobacco Use Status Tobacco Type Unknown if ever consumed tobacco - Caregiver Characteristics No Information Available Characteristics of Home environment No Information Available Gender and Sex Information Gender Identity Sexual Orientation Male Decline to answer MEDICATIONS Prescribed Medications for Dialysis Treatments Medication Instructions Dosage Route Start Date End Date Stat us Clonidine HCl PRN-may repeat x1 systolic > 180 or dystolic > 100 0.2 mg Oral January 09, 2025 January 08, 2026 Active Diphenhydramine During Dialysis, PRN-may repeat x1 Itching 50 mg Intravenous - push April 08, 2025 April 07, 2026 Active Diphenhydramine PRN Anaphylaxis 50 mg Oral December 10, 2024 December 09, 2025 Active Heparin Sodium (Porcine) 1,000 Units/mL Systemic Bolus, Every Treatment, Total treatment minutes 240 7000 units Intravenous - push December 24, 2024 December 23, 2025 Active Iron Sucrose (Venofer) During Dialysis, 3X Week 100 mg Intravenous - push March 25, 2025 April 15, 2025 Active Iron Sucrose (Venofer) Every Treatment 100 mg Intravenous - push April 27, 2025 May 18, 2025 Active Mircera During Dialysis, Every 2 weeks 50 mcg Intravenous - push April 20, 2025 April 19, 2026 Active Heparin Sodium (Porcine) 1,000 Units/mL Catheter Lock Arterial Post Dialysis, Every Treatment 2000 units Arterial Red Port December 10, 2024 December 09, 2025 Discontinued Heparin Sodium (Porcine) 1,000 Units/mL Catheter Lock Venous Post Dialysis, Every Treatment 2000 units Venous Blue Port December 10, 2024 December 09, 2025 Discontinued Mircera During Dialysis, Every 4 weeks 75 mcg Intravenous - push April 06, 2025 April 05, 2026 Discontinued Home Medications Medication Instructions Dosage Route Start Date End Date Status Abilify 5 mg Take by mouth once a day 1 tablet ORAL December 24, 2024 Active amitriptyline 50 mg Take by mouth every night 1 tablet ORAL December 22, 2024 Active amlodipine 10 mg Take by mouth every morning 1 tablet ORAL April 14, 2025 Active aripiprazole 5 mg Take by mouth once a day 1 tablet ORAL April 14, 2025 Active aspirin 81 mg Take by mouth once a day 1 tablet ORAL December 24, 2024 Active atorvastatin 80 mg Take by mouth once a day ORAL December 24, 2024 Active benzonatate 100 mg Take by mouth three times a day as needed 1 capsule ORAL April 14, 2025 Active bumetanide 1 mg Take by mouth once a day 1 tablet ORAL April 14, 2025 Active bupropion HCl 150 mg Take by mouth once a day 1 tablet ORAL April 14, 2025 Active carvedilol 25 mg Take by mouth every twelve hours 1 tablet ORAL December 22, 2024 Active cyclobenzaprine 10 mg Take by mouth three times a day as needed 1 tablet ORAL April 14, 2025 Active epinephrine 0.3 mg/0.3 mL INJECTION December 22, 2024 Active gabapentin 100 mg Take by mouth three times a day 1 capsule ORAL December 24, 2024 Active hydralazine 100 mg by mouth twice a day 1 tablet ORAL April 14, 2025 Active insulin lispro 100 unit/mL Inject subcutaneously three times a day as directed 2-10 unit SUBCUTANEOUS April 14, 2025 Active Lantus Solostar U-100 Insulin 100 unit/mL (3 mL) Inject subcutaneously twice a day 20 SUBCUTANEOUS April 14, 2025 Active lidocaine 4% once a day as needed for pain TOPICAL April 14, 2025 Active ondansetron HCl 4 mg Take by mouth every six hours as needed 1 tablet ORAL April 14, 2025 Active sevelamer carbonate 800 mg Take by mouth three times a day with meals 2 tablet ORAL April 14, 2025 Active varenicline tartrate 0.5 mg Take as directed ORAL December 24, 2024 Active clonidine HCl 0.2 mg Take by mouth three times a day 1 tablet ORAL April 14, 2025 Discontinued hydrocodone-acetam inophen 5-325 mg Take by mouth every eight hours as needed for pain 1 tablet ORAL April 14, 2025 April 29, 2025 Discontinued insulin lispro 100 unit/mL Inject subcutaneously three times a day 25 unit SUBCUTANEOUS April 14, 2025 Discontinued spironolactone 50 mg Take by mouth once a day 1 tablet ORAL January 19, 2025 April 14, 2025 Discontinued VITAL SIGNS Post-Treatment Vital Signs Vital Sign Value Date / Time Blood Pressure-sitting 190/104 mmHg May 01, 2025 12:45 PM Blood Pressure-standing 172/95 mmHg May 01, 2025 12:45 PM Heart Rate 90 beats per minute May 01 12:45 PM Respiratory Rate 16 breaths per minute May 01, 2025 12:45 PM Temperature 97.9 deg. F May 01, 2025 12 :45 PM Weight Vital Sign Value Date / Time Estimated Dry Weight 88.8 kg April 24 11:59 PM Pre-Dialysis 96.60 kg May 01, 2025 12 :45 PM Post-Dialysis 93.80 kg May 01, 2025 12 :45 PM Other Other Value Date / Time Height 182.88 cm January 01, 2025 1 2:00 AM [facility] Tuberculosis Testing TST Date Administered TST Date Read TST Result 12/15/2024 12/17/2024 Negative (<5) mm LAB RESULTS Hematology Result Type Result Value Relevant Referen ce Range Interpretation Date Transferrin Sat. (Calc) 15 % 20 - 55 % Low December 15, 2024 Platelets 542 1000/mcL 130 - 400 1000/mcL High Eliel 2024 WBC (No Diff) 9.99 1000/mcL 4.80 [...] - 400 1000/mcL - Apri l 2024 Neutrophils 76.3 % 40.0 - 75.0 % High January 14, 2025 UIBC/TIBC 166 mcg/dL 155 - 355 mcg/dL - January Transferrin Sat. (Calc) 24 % 20 - 55 % - January 14, 2025 TIBC (Calc) 217 mcg/dL 185 - 515 mcg/dL - January WBC (No Diff) 12.39 1000/mcL 4.80 - 10.80 1000/mcL High January 14, 2025 Ferritin 386 ng/mL 22 - 322 ng/mL High January 21, 2025 Hemoglobin x 3 31.2 % 42.0 - [...] mcg/dL 45 - 160 mcg/dL Low February 18 Platelets 300 1000/mcL 130 - 400 1000/mcL [...] % 40.0 - 75.0 % - March 18 Monocytes 6.0 % 3.0 - 10.0 % - March 18 Lymphocytes 21.9 % 19.0 - 48.0 % - March 18 Basophils 0.4 % 0.0 - 1.5 % - March 18, 2025 Eosinophil 1.7 % 0.0 - 7.0 % - March 18, 2025 Ferritin 510 ng/mL 22 - 322 ng/mL High March 18 MCHC 32.8 g/dL 30.0 - 36.0 g/dL - March 18, 2025 MCH 31.2 pg 27.0 - 31.0 pg High March 18, RDW 14.2 % 11.5 - 14.5 % - March 18 25 Hemoglobin x 3 33.6 % 42.0 - 54.0 % Low March KALLIE 2.4 % 0.0 - 4.0 % - March 18, 2025 WBC (No Diff) 10.17 1000/mcL 4.80 - 10.80 1000/mcL - March 18, 2025 Platelets 286 1000/mcL 130 - 400 1000/mcL - March 18, 2025 Hemoglobin x 3 32.7 % 42.0 [...] - 18.0 g/dL Low April 08, 2025 Neutrophils 74.7 % 40.0 - 75.0 % - April 15, 025 Lymphocytes 13.9 % 19.0 - 48.0 % Low April 15, 025 HCT 27.1 % 42.0 - 52.0 % Low April 15 WBC (No Diff) 9.59 1000/mcL 4.80 - 10.80 1000/mcL - April 15, 2025 RBC 2.78 mill/mcL 4.70 - 6.10 mill/mcL Low April 15, 2025 Basophils 1.3 % 0.0 - 1.5 % - April 15, 2025 KALLIE 2.5 % 0.0 - 4.0 % - April 15, 2025 Monocytes 5.0 % 3.0 - 10.0 % - April 15 Eosinophil 2.7 % 0.0 - 7.0 % - April 15, 2025 MCHC 32.0 g/dL 30.0 - 36.0 g/dL - April 15, 2025 RDW 14.6 % 11.5 - 14.5 % High April 15 25 MCH 31.2 pg 27.0 - 31.0 pg High April 15 Platelets 226 1000/mcL 130 - 400 1000/mcL - April 15, 2025 HGB 8.7 g/dL 14.0 - 18.0 g/dL Low April 15, 2025 Hemoglobin x 3 26.1 % 42.0 - 54.0 % Low April Iron 44 mcg/dL 45 - 160 mcg/dL Low April 15, 2025 Transferrin Sat. (Calc) 17 % 20 - 55 % Low April 15, 2025 UIBC/TIBC 216 mcg/dL 155 - 355 mcg/dL - April 15, 2025 TIBC (Calc) 260 mcg/dL 185 - 515 mcg/dL - April HGB 9.0 g/dL 14.0 - 18.0 g/dL Low April 29, 2025 Hemoglobin x 3 27 % 42.0 - 54.0 % Low April Metabolic/Renal Result Type Result Value Relevant Reference Range Interpre tation Date Hemoglobin A1c 8.4 % 4.8 - 5.9 % High December 15, 2024 Vitamin B12 1967 pg/mL 211 - 911 pg/mL High December Hemoglobin A1c 8.5 % 4.8 - 5.9 % High December 17, 2024 URR, Calc 60 % 65 - 80 [...] mEq/L 22 - 29 mEq/L - March 18, Potassium 4.4 mEq/L 3.5 - 5.1 mEq/L - March 18, 2025 Chloride 100 mEq/L 96 - 108 mEq/L - March 18, 025 BUN/Creat Ratio 4.2 10.0 - 20.0 Low March 18, 2025 Sodium 135 mEq/L 136 - 145 mEq/L Low March 18, 2025 BUN 24 mg/dL 6 - 19 mg/dL High March 18 Creatinine, Serum 5.74 mg/dL 0.60 - 1.30 [...] - 80 % - April 01, 2025 Potassium 6.5 mEq/L 3.5 - 5.1 mEq/L High April 15, 2025 Chloride 104 mEq/L 96 - 108 mEq/L - April 15, 025 Sodium 138 mEq/L 136 - 145 mEq/L - April 15, 2025 Bicarbonate 21 mEq/L 22 - 29 mEq/L Low April 15, Creatinine, Serum 7.28 mg/dL 0.60 - 1.30 mg/dL High April 15, 2025 BUN/Creat Ratio 6.9 10.0 - 20.0 Low April 15, 2025 BUN 50 mg/dL 6 - 19 mg/dL High April 15 URR, Calc 70 % 65 - 80 % - April 15, 2025 BUN, Post 15 mg/dL 6 - 19 mg/dL - April 15 HD Adequacy Result Type Result Value Relevant Referen ce Range Interpretation Date Krt/V 0.00 No Reference Ran ge Provided - December 17, 2024 Krt/V 0.00 No Reference Ran ge Provided - December 29, 2024 Krt/V 0.00 No Reference Ran ge [...] Range Provided - February 02, 2025 eKt/V ([place]) 1.25 No Reference Range Provided - February 09, 2025 spKt/V ([place] II) 1.42 No Referen ce Range Provided - February 09, 2025 wstdKt/V, residual 0.0 No Reference Range Provided - February 18, 2025 Krt/V 0.00 No Reference Ran ge Provided - February 18, 2025 eKt/V ([place]) 1.33 No Reference Range Provided - February [...] ge Provided - March 18, 2025 eKt/V ([place]) 1.11 No Reference Range Provided - March [...] ge Provided - April 01, 2025 eKt/V ([place]) 1.20 No Reference Range Provided - April 01, 2025 wstdKt/V 2.3 No Reference Ran ge Provided - April 01, 2025 spKt/V ([place] II) 1.37 No Referen ce Range Provided - April 01, 2025 wstdKt/V, residual 0.0 No Reference Range Provided - April 01, 2025 Krt/V 0.00 No Reference Ran ge Provided - April 01, 2025 wstdKt/V 1.6 No Reference Ran ge Provided - April 15, 2025 spKt/V Gotch 1.46 No Reference Ran ge Provided - April 15, 2025 eKt/V ([place]) 1.28 No Reference Range Provided - April 15, 2025 Krt/V 0.00 No Reference Ran ge Provided - April 15, 2025 wstdKt/V without residual 1.6 No Reference Range Provided - April 15, 2025 spKt/V (Daugirdas II) 1.46 No Referen ce Range Provided - April 15, 2025 wstdKt/V, residual 0.0 No Reference Range Provided - April 15, 2025 Bone/Mineral Result Type Result Value Relevant [...] 198 pg/mL 16 - 80 pg/mL High [facility] 2024 Corrected Ca x P Product 69 0 - 54 High February 18, 2025 Ca x P Product 61 0 - 54 High February 18 25 Phosphorus 7.6 mg/dL 2.6 - 4.5 mg/dL High February 18 025 Calcium, Total 8.0 mg/dL 8.4 - 10.2 [...] 161 pg/mL 16 - 80 pg/mL High Mar Phosphorus 9.5 mg/dL 2.6 - 4.5 mg/dL High April 15, 2025 Ca x P Product 76 0 - 54 High April 15 025 Calcium, Total 8.0 mg/dL 8.4 - 10.2 mg/dL Low April 15, 2025 Corrected Ca x P Product 84 0 - 54 High April 15, 2025 Liver/Nutrition Result Type Result Value Relevant Reference Range Interpre tation Date eNPCR 0.50 No Reference Ran ge Provided [...] mg/dL 70 - 100 mg/dL High March 18 025 Globulin (Calc) 3.1 g/dL 2.0 - 4.0 [...] Ran ge Provided - April 01, 2025 Total Protein 5.6 g/dL 6.0 - 8.5 g/dL Low April Albumin (BCG) 3.0 g/dL 3.5 - 5.2 g/dL Low April A/G Ratio 1.2 1.0 - 2.0 - April 15, 2025 Globulin (Calc) 2.6 g/dL 2.0 - 4.0 g/dL - April 15, 2025 Glucose 237 mg/dL 70 - 100 mg/dL High April 15 025 eNPCR 0.82 No Reference Ran ge Provided - April 15, 2025 Immunochemistry Result Type Result Value Relevant Reference Range Interpre tation Date HCV s/co ratio 0.32 0.00 - 0.79 - December 15, 2024 HCV s/co ratio 0.19 0.00 - 0.79 - December 17, 2024 Trace Elements Result Type Result Value Relevant Reference Range Interpre tation Date Aluminum < 5 mcg/L 0 - 10 mcg/L - December 15 Aluminum 9 mcg/L 0 - 10 mcg/L [...] Hemodialysis Data Element Value Order Date/Time April 24, 2025 Frequency 3X Week Treatment Days TueThuSat Dialyzer 180NRe Optiflux Treatment Time (Total Minutes) 240 min Blood Flow Rate (mL/min) 450 mL/min Dialysate Flow Rate Autoflow 2.0 Estimated Dry Weight 88.8 kg Dialysate Concentrate 2.0 K, 2.5 Ca, 1.0 Mg, 100 Dextrose (G2251) Sodium (mEq/L) 138 mEq/L Bicarb Machine Setting (mEq/L) 36 mEq/L Dialysis Access Hemodialysis-AV Fist maki-Standard, Right Upper Arm, Brachial Artery to Cephalic Vein Access Placed on January 18, 2025 Arterial Needle Size 15g1 Venous Needle Size 15g1 Conventional Hemodialysis Data Element Value Order Date/Time May 01, 2025 Frequency Once Dialyzer 160NRe Optiflux Treatment Time (Total Minutes) 180 min Blood Flow Rate (mL/min) 450 mL/min Dialysate Flow Rate Ultrafiltration only Estimated Dry Weight 88.8 kg Dialysate Concentrate 2.0 K, 2.5 Ca, 1.0 Mg, 100 Dextrose (G2251) Sodium (mEq/L) 137 mEq/L Bicarb Machine Setting (mEq/L) 35 mEq/L Dialysis Access Hemodialysis-AV Fist maki-Standard, Right Upper Arm, Brachial Artery to Cephalic Vein Access Placed on January 18, 2025 Arterial Needle Size 15g1 Venous Needle Size 15g1 TRANSPLANT WAITLIST STATUS No Information on Transplant Waitlist Status ADVANCE DIRECTIVES Directive Description Ordered By Effective Date Resuscitation status Do Not Resuscitate (DNR) Angélica Ny Feb 02, 2025 DIALYSIS TREATMENTS Conventional Hemodialysis Date Pre-Treatment Vitals Post-Treatment Brooke ls Duration (hr) BFR (mL/min) Dialysate Dialyzer Dialysis Access Meds Admin April 24, 2025 Weight 92.50 kg Weight 88.80 kg 04:04:00 450 2.0 K, 2.5 Ca, 1.0 Mg, 100 Dextrose (G2251) 180nre Optifl ux Blood Pressure-sitting 201/114 mmHg Blood Pressure-sit ting 158/94 mmHg Heart Rate 99 beats per minute Blood Pressure-standi ng 155/106 mmHg Respiratory Rate 20 breaths per minute Heart Rate 99 beats per minute Temperature 97.8 deg. F Respiratory Rate 18 breaths per minute - - Temperature 98.2 deg. F April 29, 2025 Weight 96.80 kg Weight 92.50 kg 04:03:00 450 2.0 K, 2.5 Ca, 1.0 Mg, 100 Dextrose (G2251) 180nre Optiflux Hemodialysis-AV Fistula-Standard, Right Upper Arm, Brachial Artery to Cephalic Vein Access Placed on January 18, 2025 Clonidine HCl; 0.2mg,Oral Diphenhydramine; 50mg,Oral Heparin Sodium (Porcine) 1,000 Units/mL Systemic; 7000units,Intravenous - push Iron Sucrose (Venofer); 100mg,Intravenous - push Blood Pressure-sitting 192/101 mmHg Blood Pressure-sit ting 176/87 mmHg Blood Pressure-standing 204/112 mmHg Blood Pressure-st anding 152/86 mmHg Heart Rate 96 beats per minute Heart Rate 93 beats per minute Respiratory Rate 18 breaths per minute Respiratory Rate 16 breaths per minute Temperature 98.4 deg. F Temperature 97.5 deg. F May 01, 2025 Weight 96.60 kg Weight 93.80 kg 04:02:00 450 2.0 K, 2.5 Ca, 1.0 Mg, 100 Dextrose (G2251) 180nre Optiflux Hemodialysis-AV Fistula-Standard, Right Upper Arm, Brachial Artery to Cephalic Vein Access Placed on January 18, 2025 Heparin Sodium (Porcine) 1,000 Units/mL Systemic; 7000units,Intravenous - push Iron Sucrose (Venofer); 100mg,Intravenous - push Blood Pressure-sitting 215/126 mmHg Blood Pressure-sit ting 190/104 mmHg Blood Pressure-standing 224/122 mmHg Blood Pressure-st anding 172/95 mmHg Heart Rate 106 beats per minute Heart Rate 90 beats per minute Respiratory Rate 16 breaths per minute Respiratory Rate 16 breaths per minute Temperature 97.5 deg. F Temperature 97.9 deg. F
--- OUTSIDE RECORDS SUMMARY | 2025-05-01 20:53 | XMS_ITS | Clinical Summary ---
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 120 Each 03/22/20 24 Active Additional Information Patient not taking.Reported on 04/15/2025 insulin lispro (HumaLOG KwikPen Insulin) 100 unit/mL pen syringe Inject 10 units 3 times daily before meals plus a medium dose sliding scale. 15 mL 07/16/20 Active EPINEPHrine (EPIPEN) 0.3 mg/0.3 mL Auto-Injector Inject 0.3 mL (0.3 mg) by intramuscular injection 1 time daily as needed for Anaphylaxis. 1 Each 07/16/20 Active Additional Information Patient not taking.Reported on 04/15/2025 Blood-Glucose Sensor (Dexcom G7 Sensor) DeviceIndications :Type [...] daily. 30 Tablet 2 12/22/19 25 Active atorvastatin (LIPITOR) 80 mg tablet Take 1 [...] daily at bedtime. 30 Tablet 2 12/22/19 Active ondansetron (ZOFRAN ODT) 4 mg Tablet, Rapid Dissolve DISSOLVE 1 TABLET IN MOUTH EVERY 6 HOURS NEEDED FOR NAUSEA / EMESIS. DISSOLVE TABLET ON TOP OF TONGUE,THEN SWALLOW WITH SALIVA 12/22/19 Active naloxone (NARCAN) 4 mg/spray [place], Non-Aerosol EMERGENCY USE ONLY: Administer 1 spray (4 mg) in one nostril one time. May repeat in alternating nostrils every 2-3 min until responsive or EMS arrives. 2 Each 3 01/19/20 Active Additional Information Patient not taking.Reported on 04/15/2025 bumetanide (BUMEX) 1 mg tablet Take 1 Tablet by mouth. 01/19/20 Active hydrALAZINE (APRESOLINE) 100 mg Tablet tablet Take 1 Tablet (100 mg) by mouth every 8 hours. 300 Tablet 3 03/31/20 Active varenicline tartrate (CHANTIX) 0.5 mg Tablet Take 0.5 mg by mouth 2 times daily. Active lidocaine-transpa rent dressing (LMX 4 PLUS) 4 % Kit Apply to affected area. Active diphenhydrAMINE (BENADRYL) 25 mg tablet Take 25 mg by mouth. Active traZODone (DESYREL) 50 mg tablet Take 50 mg by mouth daily at bedtime. 03/21/20 Active cyclobenzaprine (FLEXERIL) 10 mg tablet 04/14/20 025 Discontin ued(Side effect/in tolerance ) Active Problems Problem Noted Date Diagnosed Date Acute on chronic low back pain 04/26/2025 Hyperkalemia 04/26/2025 Encounter for tobacco use cessation counseling 0 04/26/2025 Need for acute hemodialysis 04/11/2025 Hypervolemia 04/11/2025 [...] on chronic kidney disease, on chronic dialysis 12/03/2024 03 Non-ST elevation (NSTEMI) my ocardial infarction 12/03/2024 [...] Encounters Date Type Department Care Team Description 04/28/2025 External Device Data STL ABSTRACTION Provider, Abstract 04/26/2025 5:25 PM CDT - 04/27/2025 3:15 PM CDT Hospital Encounter [facility] 6D Neuro Trauma [facility] [address] [place] [address] Cruz Dinh DO Sundaram, Vignesh, MD Chilukuri, Ramya Sree, MD Mady, Mohamed Hamdy Ahmed Mohamed, MD Hypertensive emergency Discharge Disposition: Home or Self Care 04/26/2025 10:33 AM CDT - 04/26/2025 3:26 PM CDT Emergency [facility] Emergency Medicine [address] [place] [phone] Kelsea Dailey MD Hypertensive emergency (Primary Dx) Discharge Disposition: Acute Care Hospital 04/26/2025 Travel 04/23/2025 9:05 AM CDT - 04/23/2025 11:59 PM CDT Hospital Encounter [facility] Interventional Radiology [address] [place] [phone] Angélica Ny MD McCarter, Bradley S Discharge Disposition: Home or Self Care 04/23/[address] [facility] Ophthalmology [place] [address] [place] [phone] Kim Servin MD Information (Spoke with pt regarding rescheduled appt on 05/26/25 at 10:20. Pt is good with this day and time. TA) 04/20/2025 External Device Data STL ABSTRACTION Provider, Abstract 04/15/2025 9:40 AM CDT Office Visit [address] [phone] Duke Alarcon MD ERRONEOUS ENCOUNTER--DISREGARD (Primary Dx) 04/15/[address] [phone] Duke Alarcon MD Requesting Sooner Appointment; Wants Dr. Alarcon 04/15/[address] [phone] Duke Alarcon MD Appointment Notification 04/13/2025 External Device Data STL ABSTRACTION Provider, Abstract 04/11/2025 4:33 PM CDT - 04/11/2025 11:03 PM CDT Emergency [facility] Emergency Medicine [address] [place] [phone] Kelsea Dailey MD Starnes, Kenneth Fondren, MD Hypertensive emergency (Primary Dx); Other hypervolemia; Need for acute hemodialysis Discharge Disposition: Acute Care Hospital 04/11/2025 Travel 04/06/2025 External Device Data STL ABSTRACTION Provider, Abstract 03/31/2025 1:20 PM CDT Office Visit [facility] Cardiology [facility] [address] [place] [phone] Prince Perez MD Goodwin, Jessica Lindiwe, SCULPTURE CONSERVATOR Cardiomyopathy, unspecified type (CMS/HCC) (Primary Dx) 03/23/2025 External Device Data STL ABSTRACTION Provider, Abstract 03/23/2025 Telephone [facility] [address] [place] [address] Prince Perez MD PT asking for Urgent appoitment 03/19/2025 3:00 PM CDT Office Visit [facility] Vascular Surgery [address] [phone] Amy Null MD ESRD (end stage renal disease) ([facility]) (Primary Dx) 03/19/2025 2:30 PM CDT Ancillary Procedure [facility] [address] Amy Null MD CKD (chronic kidney disease) stage 5, GFR less than 15 ml/min ([facility]) 03/16/2025 Telephone [facility] Vascular [address] [address] Amy Null MD Appointment Verification 03/05/[address] [address] Amy Null MD Appointment Verification 02/22/2025 9:50 AM CDT Office Visit [facility] Ophthalmology 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 ([facility]) (Primary Dx); Type 1 diabetes mellitus with chronic kidney disease on chronic dialysis ([facility]); Combined forms of age-related cataract of both eyes 02/16/2025 External Device Data STL ABSTRACTION Provider, Abstract 02/16/2025 External Device Data STL ABSTRACTION Provider, Abstract 02/05/2025 1:45 PM CDT Office Visit [facility] Vascular Surgery [address] [phone] Amy Null MD ESRD (end stage renal disease) ([facility]) (Primary Dx) 02/03/2025 1:50 PM CDT Procedure visit [facility] Ophthalmology 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 Ophthalmology [place] [address] [place] [address] Kim Servin MD [address] [place] [address] 06/07/2025 9:[address] [facility] Echo [address] [place] [address] Lawanda Mendoza, [facility] [address] [place] [address] 07/05/2025 9:40 AM CDT Office Visit [facility] [address] [place] [phone] Anne Duong, 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 Office Visit [facility] [employer] I Assembler Optometry [facility] [address] [place] [address] Constantin Bales, OD [address] [facility] [address] [place] [address] Health Maintenance Due Date Last Done Comments HPV VACCINES (1 - Male 3-dos e series) 2005 DTAP/TDAP/TD VACCINES (1 - Tdap) 2009 Traditional Medicare (ACO) A nnual Wellness Visit 2009 HEPATITIS B VACCINES (1 of 3 - Risk Dialysis 4-dose series) 2010 DIABETES MICROALBUMIN ANNUAL SCREEN 07/11/2016 07/11/2015 INFLUENZA VACCINE (#1) 2025 , 07/14/2016, 08/26/2015 DIABETES: A1C (Auto Order) 06/18/202503/18, 11/10/2024, 07/13/2024, Additional history exists LDL CHOLESTEROL ANNUAL 07/14/2025 07/14/2024, 2014 DIABETES HBA1C Q 6 MONTHS 09/17/20252024, 11/10/2024, 07/13/2024, Additional history exists DIABETES ANNUAL FOOT EXAM 01/04/2026 01/04/2025 DIABETES ANNUAL RETINAL EXAM 02/22/202609/2025, 01/11/2025, 01/11/2025, Additional history exists Abdominal Aortic Aneurysm (A AA) Screening Completed 08/07/2024, 12/28/2023 Medical Devices Explanted Type Area Water Mechanic Device Identifier Shelf Expiration Date Model / Serial / Lot Cath Dialysis Glidepath 14.5fr 23cm [facility] [id number] - [id number] Implanted:Qty: 1 on 12/04/2024 by Consatntin Crum MD at [facility] Explanted:Qty: 1 on 04/23/2025 by Reji Sethi Catheter Right: Chest BARD TRICE VASC [id number] 03/13/2026 [id number] / / [id number] Procedures Procedure Name Priority Date/Time Associated Diagnosis Comments TELEMETRY REPORT 04/27/2025 3:[address] HEAD WO CONTRAST Routine 04/27/2025 2 :05 PM CDT POC GLUCOSE Routine 04/27/2025 12:52 PM CDT TELEMETRY REPORT 04/27/2025 7:58 AM CDT POC GLUCOSE Routine 04/27/2025 7:22 AM CDT CBC WITH DIFFERENTIAL Routine 04/27/2025 1:14 AM CDT BASIC METABOLIC PANEL Routine 04/27/2025 1:14 AM CDT POC GLUCOSE Routine 04/26/2025 9:50 PM CDT TROPONIN 6 HR, 5TH GEN Timed Study 6:59 PM CDT BASIC METABOLIC PANEL Stat 04/26/2025 6:59 PM CDT EKG 12-LEAD Stat 04/26/2025 6:06 PM CDT CRITICAL CARE Routine 04/26/2025 5:25 PM CDT EKG 12-LEAD Stat 04/26/2025 3:07 PM CDT TROPONIN 2 HR, 5TH GEN Timed Study 12:45 PM CDT XR CHEST PA OR AP 1 VW Stat 11:43 AM CDT LIPASE Stat 04/26/2025 10:45 AM CDT BRAIN NATRIURETIC PEPTIDE, BNP OR PROBNP Stat 04/26/2025 10:45 AM CDT TROPONIN BASELINE, 5TH GEN Stat 04/26/2025 10:45 AM CDT MAGNESIUM LEVEL Stat 04/26/2025 10:45 AM CDT C-REACTIVE PROTEIN Stat 04/26/2025 10:45 AM CDT COMPREHENSIVE METABOLIC PANEL Stat 04/26/2025 10:45 AM CDT CBC WITH DIFFERENTIAL Stat 04/26/2025 10:45 AM CDT XR CHEST PA OR AP 1 VW Stat 5:29 PM CDT POC GLUCOSE Stat 04/11/2025 5:11 PM CDT [...] of both eyes and macular edema (CMS/HCC) HEMOGLOBIN A1C Routine 11/10/2024 2:22 PM 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 us Provider Scanning ECG ORDERABLES Final Result * CT HEAD WO CONTRAST (04/27/2025 2:05 [...] acute intracranial findings. Narrative Procedure Note Juice Ford, - 04/27/2025 IMPRESSION: Please see below. CT [...] (ABNORMAL) POC GLUCOSE (04/27/2025 12:52 PM CDT) Only the most recent of4 resultswithin the time period is included. [facility] GLUCOSE POC 110(H) 74 - 99 mg/dL 04/27/2025 12:52 PM CDT [facility] SPECIMEN SOURCE, GLUCOSE POC Capillary 04/27/2025 12:52 PM CDT [facility] Blood, whole 04/27/2025 12:5 2 PM CDT 04/27/2025 2:19 PM CDT Katherine Lyons MD POINT OF CARE TESTING Fi nal Result [facility] # [id number] [address] [place] [address] * (ABNORMAL) CBC WITH DIFFERENTIAL (04/27/2025 1:14 AM CDT) Only the most recent of3 resultswithin the time period is included. [facility] WBC 10.4 4.5 - 11.0 K/uL 04/27/2025 1:42 AM CDT [facility] RBC 2.79(L) 4.60 - 6.20 M/uL 04/27/2025 1:42 AM CDT [facility] HEMOGLOBIN 8.8(L) 14.0 - 18.0 g/dL 04/27/2025 1:42 AM CDT [facility] HEMATOCRIT 26.4(L) 41.0 - 53.0 % 04/27/2025 1:42 AM CDT [facility] MCV 94.6 84.0 - 103.0 fL 04/27/2025 1:42 AM CDT [facility] MCH 31.5 27.0 - 34.0 pg 04/27/2025 1:42 AM CDT [facility] MCHC 33.3 30.0 - 35.0 g/dL 04/27/2025 1:42 AM [facility] PLATELETS 255 140 - 440 K/uL 04/27/2025 1:42 AM [facility] MPV 10.1 8.9 - 12.8 fL 04/27/2025 1:42 AM [facility] RDW 14.2 11.0 - 14.5 % 04/27/2025 1:42 AM [facility] RDW-STDEV 48.1 37.0 - 54.0 fL 04/27/2025 1:42 AM [facility] NEUTROPHILS 70 42 - 75 % 04/27/2025 1:42 AM [facility] LYMPHOCYTES 21(L) 24 - 44 % 04/27/2025 1:42 AM [facility] MONOCYTES 6 2 - 10 % 04/27/2025 1:42 AM [facility] EOSINOPHILS 1 0 - 7 % 04/27/2025 1:42 AM [facility] BASOPHILS 1 0 - 1 % 04/27/2025 1:42 AM [facility] IMMATURE GRANULOCYTES 0 0 - 2 % 04/27/2025 1:42 AM [facility] NEUTROPHIL ABSOLUTE 7.31 2.00 - 8.00 K/uL 04/27/2025 1:42 AM [facility] LYMPHOCYTE ABSOLUTE 2.18 1.20 - 4.00 K/uL 04/27/2025 1:42 AM [facility] MONOCYTE ABSOLUTE 0.63(H) 0.10 - 0.60 K/uL 04/27/2025 1:42 AM [facility] EOSINOPHIL ABSOLUTE 0.15 0.00 - 0.70 K/uL 04/27/2025 1:42 AM [facility] BASOPHILS ABSOLUTE 0.07 0.00 - 0.20 K/uL 04/27/2025 1:42 AM [facility] IMMATURE GRANULOCYTES ABSOLUTE 0.04 0.00 - 0.10 K/uL 04/27/2025 1:42 AM CDT [facility] SMEAR REVIEWED: NA - Not Applicable 04/27/2025 1:42 AM T [facility] Blood Venipuncture / Unknown 04/27/2025 1:14 AM CDT 04/27/2025 1:37 AM CDT us Ben Porter MD HEMATOLOGY ORDERABLES Final Result [facility] CLIA # [id number] [address] [address] [place] [address] * (ABNORMAL) BASIC METABOLIC PANEL (04/27/2025 1:14 AM CDT) Only the most recent of2 resultswithin the time period is included. SODIUM 137 136 - 145 mmol/L 04/27/2025 2:14 AM T [facility] POTASSIUM 5.4(H) 3.5 - 5.1 mmol/L 04/27/2025 2:14 AM T [facility] CHLORIDE 96(L) 98 - 107 mmol/L 04/27/2025 2:14 AM T [facility] CO2 26 22 - 29 mmol/L 04/27/2025 2:14 AM T [facility] CALCIUM 9.1 8.6 - 10.0 mg/dL 04/27/2025 2:14 AM T [facility] BUN 48(H) 6 - 20 mg/dL 04/27/2025 2:14 AM T [facility] CREATININE 7.24(H) 0.67 - 1.17 mg/dL 04/27/2025 2:14 AM T [facility] GLUCOSE 184(H) 74 - 99 mg/dL 04/27/2025 2:14 AM T [facility] GFR 9(L) >=60 mL/min/1. 73 sq meter 04/27/2025 2:14 AM T [facility] Comment:eGFR calculated with 2020 CKD-EPI equation. Vegetarian diet, extremely high or low muscle mass, and may affect results. Cystatin C with Glomerular Filtration Rate is a suitable alternative for these patients. ANION GAP 15 9 - 20 mmol/L 04/27/2025 2:14 AM CDT [facility] Blood Venipuncture / Unknown 04/27/2025 1:14 AM CDT 04/27/2025 1:36 AM CDT Ben Porter MD CHEMISTRY ORDERABLES Final R esult Performing Organization Address [facility] Co de Phone Number [facility] CLIA # [id number] [address] [id number] * (ABNORMAL) TROPONIN 6 HR, 5TH GEN (04/26/2025 6:59 PM CDT) TROPONIN T, 6 HR 5TH GEN 184(HH) <=15 ng/L 04/26/2025 7:50 PM CDT [facility] Blood Venipuncture / Unknown 04/26/2025 6:59 PM CDT 04/26/2025 7:16 PM CDT Narrative [facility] - 04/26/2025 7:50 PM CDT Troponin elevated. Unable to calculate delta. Delay in collection of timed specimen beyond recommended collection interval. Results must be interpreted in clinical context. Cruz Dinh DO CHEMISTRY ORDERABLES Final Re sult Performing Organization Address [facility] Co de Phone Number [facility] CLIA # [id number] [address] [address] * EKG 12-LEAD (04/26/2025 6:06 PM CDT) Only the most recent of2 resultswithin the time period is included. 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1990 Requested By: Order Number: [id number] Reading MD: Lázaro Barker Measurements Intervals [place] Rate: 84 P: 55 [place]: 160 QRS: 51 QRSD: 88 T: 96 QT: 414 QTc: 489 Interpretive Statements Normal sinus rhythm Nonspecific T wave abnormality Prolonged QT Abnormal ECG Electronically Signed On 04-27-2025 20:02:40 CDT by Lázaro Barker Procedure Note Lázaro Barker MD - 04/27/[address] [address] Test Date: 2025-04-26 Pat Name: VIDA SAN Department: 11 Room: 18 18 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: [id number] : 1990 Requested By: Order Number: [id number] Reading : Lázaro Barker Measurements Intervals [place] Rate: 84 P: 55 [place]: 160 QRS: 51 QRSD: 88 T: 96 QT: 414 QTc: 489 Interpretive Statements Normal sinus rhythm Nonspecific T wave abnormality Prolonged QT Abnormal ECG Electronically Signed On 04-27-2025 20:02:40 CDT by Lázaro Barker us Cruz Dinh DO ECG ORDERABLES Final Result INTERFACE SYSTEM Refer to clinic/hospital department * [...] us Cruz Dinh DO PROCEDURE/MINOR SURGICAL ORDE [place] Final Result * (ABNORMAL) TROPONIN 2 HR, 5TH GEN (04/26/2025 12:45 PM CDT) TROPONIN T, 2 HR 5TH GEN 187(HH) <=15 ng/L 04/26/2025 1:18 PM CDT [facility] Comment:Hemolysis can falsel y decrease Troponin quantitation. DELTA 2HR TROPONIN T % 3 See Interp. % 04/26/2025 1:18 PM CDT [facility] Blood BLOOD SPECIMEN / Unknown Venipuncture / Unknown 04/26/2025 12:45 PM CDT 04/26/2025 12:58 PM CDT Narrative [facility] - 04/26/2025 1:18 PM CDT Troponin elevated. Delta not changing. us Kelsea Dailey MD CHEMISTRY ORDERABLES Final Resu lt [facility] # [id number] [address] [place] [address] * XR CHEST PA OR AP 1 VW (04/26/2025 11:43 AM CDT) Only the most recent of2 resultswithin the time period is included. Anatomical Region Laterality Modality Chest Computed Radiogr [...] identified. Old right clavicle fracture. us Kelsea Dailey MD DIAGNOSTIC IMAGING ORDERABLES F inal Result * (ABNORMAL) TROPONIN BASELINE, 5TH GEN (04/26/2025 10:45 AM CDT) TROPONIN T, BASELINE 5TH GEN 182(HH) <=15 ng/L 04/26/2025 11:33 AM CDT [facility] Blood BLOOD SPECIMEN / Unknown Venipuncture / Unknown 04/26/2025 10:45 AM CDT 04/26/2025 11:00 AM CDT Narrative [facility] - 04/26/2025 11:33 AM CDT Troponin elevated. us Kelsea Dailey MD CHEMISTRY ORDERABLES Final Resu lt [facility] CLIA # [id number] [address] [place] [address] * (ABNORMAL) C-REACTIVE PROTEIN (04/26/2025 10:45 AM CDT) CRP 6.7(H) <5.0 mg/L 04/26/2025 11:32 AM CDT [facility] Blood BLOOD SPECIMEN / Unknown Venipuncture / Unknown 04/26/2025 10:45 AM CDT 04/26/2025 11:00 AM CDT us Kelsea Dailey MD CHEMISTRY ORDERABLES Final Resu lt Performing Organization Address [facility] Co de Phone Number [facility] CLIA # [id number] [address] [place] [address] * (ABNORMAL) BRAIN NATRIURETIC PEPTIDE, BNP OR PROBNP (04/26/2025 10:45 AM CDT) Only the most recent of2 resultswithin the time period is included. PROBNP, N TERMINAL 32,589(H) 0 - 125 pg/mL 04/26/2025 11:32 AM CDT [facility] Comment: INTERPRETIVE COMMENT based on diagnosis: Diagnostic [...] CDT 04/26/2025 11:00 AM CDT us Kelsea Dailey MD CHEMISTRY ORDERABLES Final Resu lt [facility] CLIA # [id number] [address] [place] [address] * MAGNESIUM LEVEL (04/26/2025 10:45 AM CDT) MAGNESIUM 2.5 1.6 - 2.6 mg/dL 04/26/2025 11:32 AM CDT [facility] Blood BLOOD SPECIMEN / Unknown Venipuncture / Unknown 04/26/2025 10:45 AM CDT 04/26/2025 11:00 AM CDT us Kelsea Dailey MD CHEMISTRY ORDERABLES Final Resu lt Performing Organization Address City/[facility]/ZIP Co de Phone Number [facility] CLIA # [id number] [address] [place] [address] * LIPASE (04/26/2025 10:45 AM CDT) Pathologist [facility] LIPASE 40 13 - 60 U/L 04/26/2025 11:32 AM [facility] Blood BLOOD SPECIMEN / Unknown Venipuncture / Unknown 04/26/2025 10:45 AM CDT 04/26/2025 11:00 AM CDT us Kelsea Dailey MD CHEMISTRY ORDERABLES Final Resu lt Performing Organization Address [facility] Co de Phone Number [facility] CLIA # [id number] [address] [place] [address] * (ABNORMAL) COMPREHENSIVE METABOLIC PANEL (04/26/2025 10:45 AM CDT) Only the most recent of2 resultswithin the time period is included. [facility] SODIUM 134(L) 136 - 145 mmol/L 04/26/2025 11:32 AM [facility] POTASSIUM 5.8(H) 3.5 - 5.1 mmol/L 04/26/2025 11:32 AM [facility] CHLORIDE 93(L) 98 - 107 mmol/L 04/26/2025 11:32 AM [facility] CO2 27 22 - 29 mmol/L 04/26/2025 11:32 AM [facility] CALCIUM 10.7(H) 8.6 - 10.0 mg/dL 04/26/2025 11:32 AM [facility] BUN 42(H) 6 - 20 mg/dL 04/26/2025 11:32 AM [facility] CREATININE 6.56(H) 0.67 - 1.17 mg/dL 04/26/2025 11:32 AM [facility] GLUCOSE 220(H) 74 - 99 mg/dL 04/26/2025 11:32 AM [facility] TOTAL PROTEIN 7.2 6.6 - 8.7 g/dL 04/26/2025 11:32 AM [facility] ALBUMIN 3.6 3.5 - 5.2 g/dL 04/26/2025 11:32 AM [facility] BILIRUBIN TOTAL 0.3 0.0 - 1.2 mg/dL 04/26/2025 11:32 AM [facility] ALKALINE PHOSPHATASE 95 40 - 129 U/L 04/26/2025 11:32 AM [facility] AST 16 0 - 50 U/L 04/26/2025 11:32 AM [facility] ALT 10 0 - 50 U/L 04/26/2025 11:32 AM [facility] GFR 11(L) >=60 mL/min/1.7 3 sq meter 04/26/2025 11:32 AM [facility] Comment:eGFR calculated with 2020 CKD-EPI equation. Vegetarian diet, extremely high or low muscle mass, and may affect results. Cystatin C with Glomerular Filtration Rate is a suitable alternative for these patients. ANION GAP 14 5 - 20 mmol/L 04/26/2025 11:32 AM [facility] Blood BLOOD SPECIMEN / Unknown Venipuncture / Unknown 04/26/2025 10:45 AM CDT 04/26/2025 11:00 AM CDT us Kelsea Dailey MD CHEMISTRY ORDERABLES Final Resu lt [facility] CLIA # [id number] [address] [place] [address] * (ABNORMAL) URINALYSIS MICROSCOPY ONLY (04/11/2025 4:42 PM CDT) WBC UA 0-2 0 - 2 /hpf 04/11/2025 5:08 PM CDT [facility] RBC UA 6-10(A) 0 - 2 /hpf 04/11/2025 5:08 PM CDT [facility] BACTERIA UA Negative Negative /hpf 04/11/2025 5:08 PM CDT [facility] EPITHELIAL CELLS, URINE 0-5 0 - 5 /hpf 04/11/2025 5:08 PM CDT [facility] HYALINE CAST 6-10(A) None Seen, 0-2 /lpf 04/11/2025 5:08 PM CDT [facility] Urine URINE SPECIMEN OBTAINED BY CLEAN CATCH PROCEDURE / Unknown Collection / Unknown 04/11/2025 4:42 PM CDT 04/11/2025 4:53 PM CDT Kelsea Dailey MD URINE ORDERABLES Final Result [facility] # [id number] [address] [place] [address] * (ABNORMAL) URINALYSIS WITH REFLEX MICROSCOPIC (04/11/2025 4:42 PM CDT) COLOR UA Yellow Pale to Dark Yellow 04/11/2025 5:08 PM CDT [facility] CLARITY UA Clear Clear 04/11/2025 5:08 PM T [facility] SPECIFIC GRAVITY UA 1.020 1.003 - 1.035 04/11/2025 5:08 PM T [facility] PH UA 7.5 5.0 - 8.0 04/11/2025 5:08 PM T [facility] LEUKOCYTE ESTERASE UA Negative Negative 04/11/2025 5:08 PM T [facility] NITRITE UA Negative Negative 04/11/2025 5:08 PM T [facility] PROTEIN UA 3+(A) Negative 04/11/2025 5:08 PM T [facility] GLUCOSE UA 2+(A) Negative 04/11/2025 5:08 PM T [facility] KETONES UA Negative Negative 04/11/2025 5:08 PM CDT [facility] UROBILINOGEN UA 0.2 <2.0 mg/dL 5:08 PM CDT [facility] BILIRUBIN UA Negative Negative 04/11/2025 5:08 PM CDT [facility] BLOOD UA 2+(A) Negative 04/11/2025 5:08 PM CDT [facility] Urine URINE SPECIMEN OBTAINED BY CLEAN CATCH PROCEDURE / Unknown Collection / Unknown 04/11/2025 4:42 PM CDT 04/11/2025 4:53 PM CDT Kelsea Dailey MD URINE ORDERABLES Final Result Performing Organization Address City/State/[facility] Co de Phone Number [facility] # [id number] [address] [place] [address] * US DIALYSIS ACCESS IMAGING (03/19/2025 2:25 PM CDT) Anatomical Region Laterality Modality Upper Extremity Ultrasound 03/19/2025 2:07 PM CDT Narrative 03/19/2025 8:22 PM CDT [facility] [address] [place] [address] [address] [place] [address] Noninvasive Vascular Lab Upper Extremity Hemodialysis Access Follow-up Evaluation Patient: Vida San Study ID: US DIALYSIS ACCE Gender: M : 1990 Age: 34 Room: Height: Weight: BSA: Pt status: Outpatient Study Date: 03/19/2025 Study Time: 02:07:00 PM BSA: Ordering: Amy Null MD Interpreting:Azucena Abebe 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 Summary Impression: Study [...] - Graft- outflow: - outflow 0.74m/sec 1179.9ml/min [facility] is accredited with the Intersocietal Commission for the Accreditation of Vascular Laboratories (ICAVL) Prepared and Electronically Authenticated Azucena Abebe Confirmed 03/19/2025 20:22 Procedure Note Azucena Abebe DO - 03/19/2025 [facility] [address] [place] [address] Noninvasive Vascular Lab Upper Extremity Hemodialysis Access Follow-up Evaluation Patient: Vida San Study ID: US DIALYSIS ACCE Gender: M : 1990 Age: 34 Room: Height: Weight: BSA: Pt status: Outpatient Study Date: 03/19/2025 Study Time: 02:07:00 PM BSA: Ordering: Amy Null MD Interpreting:Azucena Abebe 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 Summary Impression: Study [...] - Graft- proximal anastomosis: - proximal anastomosis 5.28m/vnq1154.7ml/min - Graft- proximal graft: - proximal graft 2.95m/sec 6.60cm 1703.4ml/min3.2mm - Graft- mid graft: - mid graft 1.28m/sec 10.20cm 1473.84ml/min 2.3mm - Graft- distal graft: - distal graft 0.66m/sec 8.00cm 1298.7ml/min2.9mm - Graft- outflow: - outflow 0.74m/sec 1179.9ml/min [facility] is accredited withthe Intersocietal Commission for the Accreditation of Vascular Laboratories (ICAVL) Prepared and Electronically Authenticated Azucena Abebe Confirmed 03/19/2025 20:22 us Amy Null MD ORDERABLES Final Result * INTRAVITREAL INJECTION, PHARMACOLOGIC AGENT - OU - BOTH EYES (02/22/2025 11:09 AM CDT) Narrative [facility] OPHTHALMOLOGY-[facility] - 02/22/2025 11:09 AM CDT Time Out 02/22/2025. 9:34 AM. Confirmed correct patient, procedure, site, and patient consented. Anesthesia Topical anesthesia was used. Anesthetic medications included Proparacaine 0.5%, Tetracaine 0.5%, Tetravisc 0.5%. Procedure Right Eye Preparation included 0.25% betadine irrigation. A (32g) needle was used. Injection: 2 mg aflibercept 2 mg/0.05 mL Route: Intravitreal, Site: Eye, Right NDC: 39256-964-80, Lot: 0, Waste: 0 mL This medication is being administered as part of a group. Left Eye Preparation included 0.25% betadine irrigation. A (32g) needle was used. Injection: 2 mg aflibercept 2 mg/0.05 mL Route: Intravitreal, Site: Eye, Left NDC: 07150-600-96, Lot: 0, Waste: 0 mL This medication [...] consent 3.5 mm superotemporally to the limbus Kim Servin MD OPHTH CLINIC PROCEDURES Final R esult Performing Organization Address [facility] Co de Phone Number [facility] CLIA# [id number] [address] [place] [address] * OCT, RETINA - OU - BOTH EYES (02/22/2025 10:19 AM CDT) Narrative [facility] OPHTHALMOLOGY ORDERS - 02/22/2025 11:08 AM CDT RIGHT EYE: Mild macular edema, Intraretinal cystoid spaces, and intraretinal hyper-reflective foci LEFT EYE:Mild macular edema, Intraretinal cystoid spaces, intraretinal hyper-reflective foci, and disruption of outer-retinal layers Kim Servin MD OPHTH TOMOGRAPHY Final Result Performing Organization Address [facility] Co de Phone Number [facility] OPHTHALMOLOGY ORDERS * PUGH RETINAL PHOTOCOAGULATION - OU - BOTH EYES (02/03/2025 4:30 PM CDT) Narrative [facility] - 02/03/2025 4:30 PM CDT Time Out [...] written and verbal post procedure care education. Kim Servin MD [facility] PROCEDURES Final R esult [facility] CLIA# [id number] [address] [place] [address] * (ABNORMAL) HEMOGLOBIN A1C (11/10/2024 2:22 PM HYDRAULIC HAMMER OPERATOR) HEMOGLOBIN A1C 10.5(H) <5.7 % of total Hgb [facility] Comment: For someone without known diabetes, [...] [facility] Comment: Test Performed at: [facility] [address] [place] [address] Luz Lang MD Blood 11/10/2024 2:22 PM HYDRAULIC HAMMER OPERATOR 11/11/2024 4:34 AM HYDRAULIC HAMMER OPERATOR us Roberta Kennedy INOCENCIA CHEMISTRY ORDERABLES Final Res ult [facility] [phone] [facility] [address] [address] [address] * CT ABDOMEN PELVIS WO CONTRAST (08/07/2024 [...] hepatomegaly. Mild anasarca. Narrative Procedure Note Juice Ford, DO - 08/07/2024 IMPRESSION: Please see below. [...] renal pelvic calculus. Mild hepatomegaly. Mild anasarca. Carroll Angelo MD CT ORDERABLES Final Re sult * (ABNORMAL) LIPID PANEL (07/14/2024 4:40 AM CDT) CHOLESTEROL 357(H) <200 mg/dL 07/14/2024 5:49 AM CDT [facility] TRIGLYCERIDE 305(H) <150 mg/dL 07/14/2024 5:49 AM CDT [facility] HDL 40 40 - 59 mg/dL 07/14/2024 5:49 AM CDT [facility] LDL CALCULATED 256(H) <100 mg/dL 07/14/2024 5:49 AM CDT [facility] NON-HDL CHOLESTEROL 317(H) <130 mg/dL 07/14/2024 5:49 AM T [facility] Blood Venipuncture / Unknown 07/14/2024 4:40 AM CDT 07/14/2024 4:59 AM CDT Narrative [facility] - 07/14/2024 5:49 AM CDT TOTAL [...] Bashir NP CHEMISTRY ORDERABLES Final R esult [facility] CLIA # [id number] [address] [place] [address] * MICROALBUMIN/CREATININE RATIO, RANDOM UR (07/11/2015 10:53 PM CDT) MICROALBUMIN, URINE 67.8 mg/dL 07/11/2015 11:45 PM [facility] CREATININE, URINE 163.8 40.0 - 278.0 mg/dL 07/11/2015 11:45 PM [facility] Comment: Reference Range varies with fluid intake and diet. MICROALBUMIN/CR EAT RATIO, UR 413.9 mg/g Creatinine 07/11/2015 11:45 PM [facility] Comment: Condition mg/g Creatinine Normal Males <17 Normal Females <25 Microalbuminuria Males 17-299 Microalbuminuria Females 25-299 Overt proteinuria >=300 Urine 07/11/2015 10:5 3 PM CDT 07/11/2015 10:53 PM CDT Jyoti Shirley SCULPTURE CONSERVATOR URINE ORDERABLES Final Result Performing Organization Address City/State/[facility] Co de Phone Number [facility] CLIA # [id number] [address] [id number] [facility] CLIA # [id number] [address] [place] [address] from Last 3 Months or Most Recently Relevant to Health Maintenance Insurance MEDICAID [place] Medicaid RX [employer] PLANS (INTERNAL) [facility] Internal Plans Advance Directives For more information, please contact: [phone] * NO CPR (In Event of Cardiopulmonary Arrest) (Latest Code Status on File) Date Activated Date Inactivated Comments 04/26/2025 8:28 PM 04/27/2025 5:43 PM Question Answer Comments Mechanical Ventilation (for respiratory distress) - Invasive (i.e. intubation): No Mechanical Ventilation (for respiratory distress) - Non-Invasive (i.e. BiPAP, CPAP): Yes * Full Code Date Activated Date Inactivated Comments 12/03/2024 6:22 PM 12/11/2024 3:17 PM * Full Code Date Activated Date Inactivated Comments 07/11/2024 6:17 PM 07/16/2024 2:00 PM Care Teams Sewer Tapper Relationship Specialty Start Date End Date Duke Alarcon MD [address] [place] [address] PCP - General Family Practice 08/10/24
--- OUTSIDE RECORDS SUMMARY | 2025-05-01 20:53 | XMS_ITS | Clinical Summary ---
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
--- OUTSIDE RECORDS SUMMARY | 2025-05-01 20:53 | XMS_ITS | Encounter Summary ---
Author Organization [facility] Address [address] [place] [address] Care Team Providers Care Bottling Machine Operator Name Role Phone Karlo Banks MD Primary Care Provider [phone] Encounter Details Date Type Department Care Team (Latest Contact Info) Description 02/07/2004 Outpatient Historical [facility] [address] [place] [phone] Holland Bell MD [address] [place] [address] ASTHMA UNSPECIFIED (Primary Dx) Social History Tobacco Use Types Packs/Day Years Used Date Smoking Tobacco: Never Assessed Sex and Gender Information Value Date Recorded Sex Assigned at Not on file 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
--- OUTSIDE RECORDS SUMMARY | 2025-05-01 20:54 | XMS_ITS | Encounter Summary ---
Author Organization [facility], [facility] Address [address] [place] [address] Phone Care Team Providers Care Singer Back Tender Name Role Phone Duke Alarcon MD Primary Care Provider [phone] Encounter Details Date Type Department Care Team (Late st Contact Info) Description 01/12/2025 TCM [facility] Dialysis [facility] [address] [place] [address] Sixto Waller BUTTON BRADDER [address] [place] [address] Social History Tobacco Use Types [...] as of this encounter Progress Notes * Sixto Waller NP - 01/12/2025 12:00 AM CDT Patient: Hunter San : 1990 Note Type: Dialysis TCM Service Date: 01/12/2025 The patient was seen for a icgf-iw-deqi visit as part of Transitional Care Management services. Primary cause of renal failure: E10.22 - Type 1 diabetes mellitus with diabetic chronic kidney disease Attending Business Intern: HODAN VALERA Dialysis Location: [facility] Schedule: Shift: 2 INTERACTIVE CONTACT Contact with the patient or caregiver was made or attempted within 2 business days of discharge - details in the medical record. HOSPITALIZATION SUMMARY Patient transitioned from: Hospital Patient transitioned to: Home Admit Date: 01/05/2025 Discharge Date: 01/06/2025 Discharged info reviewed: No outstanding diagnostic tests and treatments Reason for admission: shortness of breath requiring dialysis HOME MEDICATIONS Discharge med list reviewed - changes reconciled and discussed with patient. COMMENTS: BP still quite elevated have added hydralazine 50 mg twice a day and suspect this will have to increase to 3 times a day Current [facility] Outpatient Medications Abilify 5 mg tablet Take [...] mg capsule Take 1 capsule by mouth once a day. bupropion HCl 150 mg tablet extended release 24 hr Take 1 1/2 tablet by mouth once a day. carvedilol 25 mg tablet Take 1 tablet by mouth every twelve hours. clonidine HCl 0.2 mg tablet Take 1 tablet by mouth three times a day. epinephrine 0.3 mg/0.3 mL auto-injector [Inject 0.3 ML by Intramuscular injection 1 time daily needed for ANAPHYLAXIS] gabapentin 100 mg capsule Take 1 capsule by mouth three times a day. insulin lispro 100 unit/mL insulin pen Inject 25 unit subcutaneously three times a day. [+ a medium dose sliding scale.] Lantus Solostar U-100 Insulin 100 unit/mL (3 mL) insulin pen Inject 25 subcutaneously twice a day. lidocaine 4% adhesive patch,medicated [apply lidocaine patch on lumbar spine] ondansetron HCl 4 mg tablet Take 1 tablet by mouth every six hours. spironolactone 25 mg tablet Take 1 tablet by mouth once a day as directed. varenicline tartrate 0.5 mg tablet Take as directed. Current [facility] Allergies Allergen: DAVID INHIBITORS Reaction: Cardiac Arrest [...] units IVP Every Treatment 12/24/2024 - 12/23/2025 Iron Sucrose (Venofer) 100 mg IVP Every Treatment 12/22/2024 - 01/12/2025 PHYSICAL EXAM Exam performed. Vital Signs Reviewed. CV - Blood pressure noted. No edema. DIALYSIS PRESCRIPTION Dry weight during admission reviewed - EDW decreased. Treatment Data Treatment Date: 01/12/2025 started at: 12:45 PM Dialysate / Machine Temp (prescribed): 37.0*C Dialysate / Machine Temp (actual): 35.4*C BFR (prescribed): 450 BFR (actual): 450 DFR (prescribed): Autoflow 2.0 DFR (actual): 600 Prescribed Time: 04:00 EDW (kg): 106.2 Dialyzer: 180NRe Optiflux Dialysate: 2.0 K, 2.5 Ca, 1.0 Mg, 100 Dextrose (G2251) Sodium: 138 Bicarb: 38 Pre Dialysis Vitals Pre BP Sit: 207/131 Pre Wt (kg): 107.6 EDW Deviation (kg): 1.4 Temp: 97.8*F Current Dialysis Vitals BP Sit: 201/131 AP/LOOM CLEANER: -- Pulse: 110 CARE COORDINATION No follow-up appointments noted. IMPRESSION & PLAN COMMENTS: ESRD requiring dialysis. Continue TTS. Hypertension. continue amlodipine, clonidine 0.2 mg 3 times a day, carvedilol 25 mg, spironolactone 25 mg and we will add hydralazine 50 mg twice a day VISIT DIAGNOSES CPT Code 43012 - High complexity, seen within 7 days of discharge. N18.6, Z99.2 End stage renal disease;Dependence on renal dialysis I10 Essential (primary) hypertension Signed by: SIXTO WALLER NP on 01/12/2025 at 01:17:02 PM Transcribed by: SIXTO WALLER NP on 01/12/2025 at 01:17:02 PM documented in this encounter Plan of Treatment Not on file documented as of this encounter Visit Diagnoses Not on filedocumented in this encounter Care Teams Singer Back Tender Relationship Specialty Start Date End Date Duke Alarcon MD [address] [address] PCP - General Family Medicine 08/12/24 documented as of this encounter
--- OUTSIDE RECORDS SUMMARY | 2025-05-01 20:54 | XMS_ITS | Encounter Summary ---
Author Organization [facility] Address [address] [facility] Attn: [place] [address] Care Team Providers Care Duplicating Machine Operator Name Role Phone Duke Alarcon MD Primary Care Provider [phone] Encounter Details Date Type Department Care Team (Latest Contact Info) Description 04/26/2025 Travel Social History Tobacco Use Types Packs/Day Years Used Date Smoking Tobacco: Every Day Cigarettes Passive Smoke Exposure: Current Smokeless Tobacco: Never Alcohol Use Standard Drinks/Week Comments No 0 (1 standard drink = 0.6 oz pur e alcohol) Sex and Gender Information Value Date Recorded Sex Assigned at Not on file Legal Sex Male 3:23 AM PERFORMANCE SOLUTIONS SPECIALIST Gender Identity Not on file Sexual Orientation Not on file documented as of this encounter Plan of Treatment Upcoming Encounters Date Type Department Care Team (Late st Contact Info) Description 05/03/2025 9:20 AM CDT Office Visit [facility] [place] [address] [address] Duke Alarcon MD [address] [address] 05/26/2025 10:20 AM CDT Office Visit [facility] [place] [address] [address] Kim Servin MD [address] [place] [address] 06/07/2025 9:00 AM CDT Appointment [facility] Echo [address] [place] [address] Lawanda Mendoza, [facility] [address] [place] [address] 07/05/2025 9:40 AM CDT Office Visit [facility] [address] [place] [address] Anne Duong, [facility] [address] [place] [address] 09/27/2025 9:30 AM PERFORMANCE SOLUTIONS SPECIALIST Office Visit [facility] Header Boss Optometry [facility] [address] [place] [address] Constantin Bales, OD [address] [place] [address] documented as of this encounter Visit Diagnoses Not on filedocumented in this encounter Care Teams Duplicating Machine Operator Relationship Specialty Start Date End Date Duke Alarcon MD [address] [address] PCP - General Family Practice 08/10/24 documented as of this encounter
--- OUTSIDE RECORDS SUMMARY | 2025-05-01 20:54 | XMS_ITS | Encounter Summary ---
Author Organization [facility] Address [address] [place] [address] Care Team Providers Care Director Of Elementary Education Name Role Phone Duke Alarcon MD Primary Care Provider [phone] Encounter Details Date Type Department Care Team (Late st Contact Info) Description 04/28/2025 External Device Data ST[facility] ABSTRACTION [...] on file Legal Sex Male 3:23 AM EVENTS AND PROMOTIONS ASSISTANT Gender Identity Not on file Sexual Orientation Not on file documented as of this encounter Plan of Treatment Upcoming Encounters Date Type Department Care Team (Late st Contact Info) Description 05/03/2025 9:20 AM CDT Office Visit [facility] Family Medicine [place] [address] [address] Duke Alarcon MD [address] [address] 05/26/2025 10:20 AM CDT Office Visit [facility] [place] [address] [address] Kim Servin MD [address] [place] [address] 06/07/2025 9:00 AM CDT Appointment [facility] Echo [address] [place] [phone] Lawanda Mendoza, [facility] [address] [place] [address] 07/05/2025 9:40 AM CDT Office Visit [facility] Heart [facility] [address] [place] [address] Anne Duong, [facility] [address] [place] [address] 09/27/2025 9:30 AM EVENTS AND PROMOTIONS ASSISTANT Office Visit [facility] Mold Closer Helper Optometry [facility] [address] [place] [address] Constantin Bales, OD [address] [place] [address] documented as of this encounter Visit Diagnoses Not on filedocumented in this encounter Care Teams Director Of Elementary Education Relationship Specialty Start Date End Date Duke Alarcon MD [address] [address] PCP - General Family Practice 08/10/24 documented as of this encounter
[2025-05-01] MEDS: HYDROmorphone 0.5 MG/0.5 ML INJ 1 MG IVP (23:19)
[2025-05-01 23:32] VITALS: BP 206/117; PULSE 92; RESP 16; O2SAT 96
[2025-05-01 23:40] VITALS: BP 204/117; PULSE 72; RESP 16; O2SAT 96
--- NOTE | 2025-05-01 23:50 | W.ED.BACK ---
HPI - Back Pain/Injury General: Chief Complaint: Back Pain/Injury Stated Complaint: back pain Time Seen by Provider: 05/01/25 22:23 Source: patient Mode of arrival: EMS Limitations: no limitations History of Present Illness: Patient is a 34-year-old male with past medical history of type 1 diabetes and chronic kidney disease currently on dialysis who presents to the emergency department for left lower back pain radiating down his left leg tonight. He states that he was walking and he had a sudden sharp sensation traveled down his leg, this caused him to fall and he has had continued back and leg pain since. He does have a history of lumbar fusion surgery, had a CT yesterday. He is not reporting any bowel or bladder incontinence or saddle anesthesia. His pain is specifically worsened by movement at the lower back. He notes his left leg has some weakness compared to the right, but he has remained ambulatory. He is a Saturday dialysis, went today as normal. EMS gave 100 mcg of fentanyl en route, he states that this helped his pain but has steadily gotten worse. Also has a history of uncontrolled hypertension and states he is chronically close to 200 systolic blood pressure. No new symptoms of chest pain, shortness of breath, or lightheaded/dizziness. MD elicited complaint: back pain Pertinent past history: back surgery Onset (ago): hour(s) Timing: improved Severity: severe Similar Symptoms Previously: Yes Quality: sharp and stabbing Location: left lower back Radiation: left upper leg Exacerbating factors: movement and walking Relieving factors: medication Associated symptoms: Deny abdominal pain, difficulty walking, fecal incontinence, fever(s) or syncope Treatments prior to arrival: other (Fentanyl) Related Data Home Medications ?Medication ?Instructions ?Recorded ?Confirmed amlodipine 10 mg tablet 10 mg PO QAM 09/16/23 04/20/25 blood-glucose sensor (ulikecom G7 #1 ea 10/21/23 04/20/25 Sensor device) amitriptyline 50 mg tablet 50 mg PO BEDTIME 11/06/24 04/20/25 bupropion HCl 150 mg 24 hr tablet, 150 mg PO DAILY 11/06/24 04/20/25 extended release carvedilol 25 mg tablet 25 mg PO Q12H 11/06/24 04/20/25 epinephrine 0.3 mg/0.3 mL See Rx Instructions .Route .COMPLEX 11/06/24 04/20/25 injection, auto-injector aripiprazole 5 mg tablet 5 mg PO DAILY 04/12/25 04/20/25 aspirin 81 mg tablet,delayed 81 mg PO DAILY 04/12/25 04/20/25 release atorvastatin 80 mg tablet 80 mg PO DAILY 04/12/25 04/20/25 benzonatate 100 mg capsule 100 mg PO TID PRN Cough 04/12/25 04/20/25 gabapentin 100 mg capsule 100 mg PO TID 04/12/25 04/20/25 lidocaine 4 % topical patch 1 patch topical DAILY PRN Pain 04/12/25 04/20/25 ondansetron 4 mg disintegrating 4 mg PO Q6H PRN nausea/emesis 04/12/25 04/20/25 tablet varenicline tartrate 0.5 mg (11)-1 See Rx Instructions .Route .COMPLEX 04/12/25 04/20/25 mg (42) tablets in a dose pack Previous Rx's ?Medication ?Instructions ?Recorded Intraoperative Neuromonitoring #1 ea 08/22/22 insulin syringe-needle U-100 1 mL #100 ea 06/27/23 31 gauge x 5/16 (BD Insulin Syringe Ultra-Fine) pen needle, diabetic 32 gauge x #100 ea 06/27/23 1/4 (BD Ultra-Fine Micro Pen Needle) blood sugar diagnostic (True #100 ea 10/04/23 Metrix Glucose Test Strip) blood-glucose meter (True Metrix #1 ea 10/04/23 Air Glucose Meter kit) lancets 31 gauge #100 ea 10/04/23 bumetanide 1 mg tablet 1 mg PO DAILY #30 tabs 04/14/25 cyclobenzaprine 10 mg tablet 10 mg PO TID PRN Muscle Spasms #30 04/14/25 tabs hydralazine 100 mg tablet 100 mg PO BID #60 tabs 04/14/25 hydrocodone 5 mg-acetaminophen 325 1 tab PO Q8H PRN pain #12 tabs 04/14/25 mg tablet insulin glargine 100 unit/mL (3 20 unit (0.2 mL) SUBCUT BID #3 mL 04/14/25 mL) subcutaneous pen (Lantus Solostar U-100 Insulin) insulin lispro 100 unit/mL See Rx Instructions .Route 04/14/25 subcutaneous pen (Humalog KwikPen .COMPLEX #15 mL (U-100) Insulin) sevelamer carbonate 800 mg tablet 1,600 mg (2 x 800 mg) PO TID #180 04/14/25 tabs Allergies Allergy/AdvReac Type Severity Reaction Status Date / Time bee venom protein (honey bee) Allergy Unknown Verified 04/19/25 07:21 lisinopril Allergy Unknown Verified 04/19/25 07:21 Review of Systems General: Reports: 10 or more systems reviewed and unremarkable except in HPI and below Const: Reports: other (denies trauma); Denies: fever(s), change in weight or night sweats Card: Denies: chest pain, lightheadedness or syncope Resp: Denies: dyspnea GI: Denies: abdominal pain or fecal incontinence : Denies: urinary incontinence Musc: Reports: back pain and extremity pain (LLE); Denies: neck pain Skin/Breast: Denies: rash or skin pain Neuro: Reports: weakness in extremities; Denies: headache(s), numbness in extremities, sensory changes, lack of coordination, difficulty walking, frequent falls or involuntary movements PFSH ED PFSH: Medical History End stage renal disease on dialysis due to type 1 diabetes mellitus Chronic back pain Type 1 diabetes End stage renal disease on dialysis Opiate dependence Other stimulant abuse, uncomplicated Waking at night short of breath Snoring Hypersomnia Insomnia Noncompliance w/medication treatment due to intermit use of medication Schizophrenia Methamphetamine abuse Uncontrolled hypertension Family History Other CAD (coronary artery disease) Hypertension Stroke Social History Smoking and tobacco/nicotine status: current every day tobacco/nicotine user Alcohol intake: former Substance/Drug Use: former Date of last use: Amphetamines more than 62 days ago Caregiver/support person: Yes Lives independently: Yes Household members: other Current occupation: [email or web address] Physical Exam Const: COMMON NORMALS: no acute distress, patient oriented x3, no limitations, healthy appearing and alert Resp: COMMON NORMALS: normal respiratory effort, No retractions, No use of accessory muscles and clear to auscultation bilaterally AUSCULTATION: clear to auscultation bilaterally Cardio: COMMON NORMALS: regular rate, regular rhythm, S1 normal heart sound present and S2 normal heart sound present RATE: regular rate RHYTHM: regular rhythm HEART SOUNDS: S1 normal heart sound present and S2 normal heart sound present Back/Pelvis: LUMBAR SPINE/LOWER BACK: Yes straight leg raise positive left OTHER: Normal visual examination. No spinous process tenderness or paracervical, parathoracic, or paralumbar tenderness to palpation. Full active range of motion. Extremity: COMMON NORMALS: normal to inspection and full ROM Neuro: COMMON NORMALS: patient oriented x3, moves all extremities, no focal motor deficits, no sensory deficits noted, deep tendon reflexes 2+ bilaterally and gait normal SENSORIUM/ORIENTATION: Yes alert OTHER: L3, L4, L5, and S1 nerve sensations intact. Normal knee jerk and ankle jerk reflexes. Skin: COMMON NORMALS: no rashes or lesions noted GENERAL SKIN EXAM: no rashes or lesions noted Course Vital Signs: Vital signs: Vital Signs Temperature 98.3 F 05/01/25 20:41 Pulse Rate 72 05/01/25 23:40 Respiratory Rate 16 05/01/25 23:40 Blood Pressure 204/117 05/01/25 23:40 Pulse Oximetry 96 05/01/25 23:40 Oxygen Delivery Me thod Room Air 05/01/25 23:32 MDM - Back Pain/Injury Medical Decision Making Patient presented with acute onset left lower back pain rating down his left leg. History of back fusion surgery, he had a CT yesterday, I did review this and it showed a bunch of chronic findings, no acute mass or other major abnormality. On exam, there was some weakness appreciated of the left leg, though his DTRs were normal and there was no spinous process tenderness to palpation. Straight leg raise also positive on the left, diagnosis at this time favors a lumbar radiculopathy with his presentation. Due to him being a type I diabetic as well as on dialysis, he is treated here with Tylenol, Dilaudid, lidocaine patch, and 1 dose of gabapentin. Pain improved, discharged in stable condition. He does have a history of uncontrolled hypertension, he notes to myself and the nurse that his blood pressure is always chronically high up to 200 systolic, and he would not like this pursued. He had no new symptoms to report in this matter, discharged with return precautions. No radiology studies performed this visit Discharge Plan Discharge Patient Disposition: Home Clinical Impression: Acute left lumbar radiculopathy Condition: Stable Prescriptions: No Action (DME) blood-glucose meter [True Metrix Air Glucose Meter] Kit See Rx Instructions .Route Qty: 1 0RF Rx Instructions: As directed (DME) True Metrix Glucose Test Strip Strip See Rx Instructions .Route Qty: 100 0RF Rx Instructions: As directed (DME) lancets 31 gauge misc See Rx Instructions .Route Qty: 100 0RF Rx Instructions: As directed (DME) Dexcom G7 Sensor Device See Rx Instructions .ROUTE .MEDSUPPLY Qty: 1 Rx Instructions: As directed (DME) Intraoperative Neuromonitoring See Rx Instructions .Route .MEDSUPPLY Qty: 1 0RF Rx Instructions: As directed (DME) pen needle, diabetic [BD Ultra-Fine Micro Pen Needle] 32 gauge x 1/4 needle See Rx Instructions .ROUTE .MEDSUPPLY Qty: 100 3RF Rx Instructions: As directed (DME) insulin syringe-needle U-100 [BD Insulin Syringe Ultra-Fine] 1 mL 31 gauge x 5/16 syringe See Rx Instructions .ROUTE .COMPLEX Qty: 100 1RF Dose Instruction: DIRECTED Rx Instructions: DIRECTED amlodipine 10 mg tablet 10 mg PO QAM carvedilol 25 mg Tablet 25 mg PO Q12H Rx Instructions: must administer with a meal/food amitriptyline 50 mg tablet 50 mg PO BEDTIME epinephrine 0.3 mg/0.3 mL auto-injector See Rx Instructions .ROUTE .COMPLEX Rx Instructions: INJECT 0.3 INTRAMUSCULARLY ONCE DAILY NEEDED FOR ANAPHYLAXIS bupropion HCl 150 mg tablet extended release 24 hr 150 mg PO DAILY atorvastatin 80 mg tablet 80 mg PO DAILY aspirin 81 mg tablet,delayed release (DR/EC) 81 mg PO DAILY benzonatate 100 mg capsule 100 mg PO TID PRN (Reason: Cough) gabapentin 100 mg capsule 100 mg PO TID ondansetron 4 mg tablet,disintegrating 4 mg PO Q6H PRN (Reason: nausea/emesis) aripiprazole 5 mg tablet 5 mg PO DAILY varenicline tartrate 0.5 mg (11)- 1 mg (42) tablets,dose pack See Rx Instructions .ROUTE .COMPLEX Rx Instructions: Take per package instructions. lidocaine 4 % Adhesive Patch,Medicated 1 patch TOPICAL DAILY PRN (Reason: Pain) Rx Instructions: to lumbar spine cyclobenzaprine 10 mg Tablet 10 mg PO TID PRN (Reason: Muscle Spasms) Qty: 30 0RF sevelamer carbonate 800 mg Tablet 1,600 mg PO TID Qty: 180 0RF hydralazine 100 mg tablet 100 mg PO BID Qty: 60 0RF insulin glargine [Lantus Solostar U-100 Insulin] 100 unit/mL (3 mL) insulin pen 20 unit SUBCUT BID Qty: 3 0RF bumetanide 1 mg tablet 1 mg PO DAILY Qty: 30 0RF insulin lispro [Humalog KwikPen Insulin] 100 unit/mL insulin pen See Rx Instructions .ROUTE .COMPLEX Qty: 15 0RF Rx Instructions: MEDIUM dose sliding scale. Less than/equal to 70 treat hypoglycemia per nursing protocol. 71-119 No additional insulin. 120-150 2 units. 151-200 4 units. 201-250 6 units. 251-300 8 units. 301-350 10 units. Greater than 351 12 units. hydrocodone-acetaminophen 5-325 mg tablet 1 tab PO Q8H PRN (Reason: pain) Qty: 12 0RF Discharge Orders: Discharge ED (Routine); Ordered 05/01/25 Ordered By: Lázaro Agudelo Referrals: Duke Alarcon [Primary Care Provider, Family Practice] Patient Instructions: Opioid Safety, Pain Management, Patient Portal & Penny Instructions Activity Restrictions/Additional Instructions: Acute Radiculopathy Discharge Diagnosis: Acute left lumbar radiculopathy, no red flag symptoms. Summary of ED Management: Treated with lidocaine patches, gabapentin, acetaminophen, and hydromorphone. No evidence of cauda equina syndrome, infection, or other emergent pathology. Dialysis: Patient is on hemodialysis Saturday, , and Saturday. Continue all scheduled dialysis sessions. Avoid nephrotoxic medications, including NSAIDs, as these can worsen kidney function. --- Discharge Instructions: 1. Activity and Self-Management - Remain as active as tolerated; avoid prolonged bed rest, which does not improve outcomes and may delay recovery. - Gradually resume normal activities as pain allows. Short walks and gentle movement are encouraged. - Avoid heavy lifting, twisting, or high-impact activities until symptoms improve. - If a particular position or movement relieves pain (directional preference), use it for comfort. 2. Pain Management at Home - Acetaminophen (Tylenol): Use as directed, not exceeding recommended daily dose (typically <= g/day in adults, but confirm with nephrology if uncertain). - Gabapentin: Continue at the lowest effective dose, with dosing adjusted for dialysis. Gabapentin is renally cleared and associated with increased risk of altered mental status and falls in dialysis patients; use with caution and monitor for side effects such as drowsiness, confusion, or unsteadiness. Take only as prescribed. - Lidocaine patches: May be applied to the area of maximal pain, following package instructions. Remove after 12 hours and do not apply to broken skin. - Hydromorphone (Dilaudid): Use only for severe pain not controlled by other measures. Use the lowest effective dose for the shortest possible duration. Hydromorphone is preferred over morphine in dialysis patients due to lower risk of metabolite accumulation. Monitor for sedation, confusion, or respiratory depression. - NSAIDs: Avoid all NSAIDs (e.g., ibuprofen, naproxen) due to risk of worsening kidney function. 3. Non-Pharmacologic Pain Management - Apply ice or heat to the affected area for 15?20 minutes as needed for comfort. - Gentle stretching or physical therapy exercises may be initiated as tolerated. Early mobilization and individualized activity are recommended. - Patient education and reassurance regarding the favorable natural history of lumbar radiculopathy are important; most patients improve over weeks to months without surgery. - Consider referral to physical therapy if pain persists or for guidance on exercise and activity modification. 4. Follow-Up - Arrange follow-up with primary care or nephrology within 1?2 weeks, or sooner if symptoms worsen. - If pain persists beyond 4?6 weeks or if function is significantly impaired, consider referral to claims specialist for further evaluation, including possible imaging or interventional procedures. 5. Strict Return Precautions Return to the emergency department immediately for any of the following: - New or worsening weakness in the legs. - Loss of bowel or bladder control (incontinence or retention). - Numbness in the groin or inner thighs (saddle anesthesia). - High fever, chills, or signs of infection. - Severe, unremitting pain not controlled by prescribed medications. - Confusion, excessive drowsiness, or falls (especially if taking gabapentin or opioids). 6. Additional Considerations for Dialysis Patients - Continue all scheduled dialysis sessions. - Report any new swelling, shortness of breath, or changes in urine output to nephrology. - Avoid [id number] medications or supplements without consulting nephrology, especially NSAIDs and herbal products. 7. Prognosis - Most cases of acute lumbar radiculopathy improve with conservative management over several weeks. - Surgery is rarely needed unless there is progressive neurologic deficit or failure of conservative therapy after several weeks. Contact Information - For questions or concerns, contact your primary care provider or contract administrator. - For urgent issues or any of the strict return precautions above, seek emergency care. --- Print Language: Bruneian Coding Level of Care Code ED Free Lance Artist for Bessie Gaxiola
== END 2025-05-01 23:53 | disposition home or self-care (01) ==
PROVIDERS: Emergency Provider Physician Assistant; PCP Family Medicine
DX: I12.0 Hypertensive chronic kidney disease with stage 5 chronic kidney disease or end stage renal disease (principal); N18.6 End stage renal disease; Z99.2 Dependence on renal dialysis; F17.200 Nicotine dependence, unspecified, uncomplicated; E10.22 Type 1 diabetes mellitus with diabetic chronic kidney disease; Z79.82 Long term (current) use of aspirin; M54.16 Radiculopathy, lumbar region; Z79.899 Other long term (current) drug therapy; Z79.4 Long term (current) use of insulin
CPT/HCPCS: 96374; 99284; J1171; J9999

== ENCOUNTER → 2025-05-04 07:44 | Outpatient (BNVA) | payer MEDICARE, MEDICAID, SELFPAY | PROVIDERS: PCP Family Medicine; Visit Provider Orthopaedic Surgery | DX: Z98.1 Arthrodesis status (principal); M54.9 Dorsalgia, unspecified; G89.29 Other chronic pain; M54.42 Lumbago with sciatica, left side | CPT/HCPCS: 99213 ==

== ENCOUNTER 2025-05-15 11:29 | Emergency (ER) | payer MEDICARE, MEDICAID, SELFPAY ==
--- NOTE | 2025-05-15 11:29 | ECG_ITS ---
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
[2025-05-15 11:30] VITALS: BP 202/114; PULSE 92; RESP 18; TEMP 36.9; O2SAT 100; BMI 27.3
--- OUTSIDE RECORDS SUMMARY | 2025-05-15 11:36 | XMS_ITS | Encounter Summary ---
Author Organization [facility] Address [address] [place] [address] Care Team Providers Care Desk Operator Name Role Phone Duke Alarcon MD Primary Care Provider + [phone] Reason for Visit * Reason Onset Date Comments Medication Refill 05/10/2025 Encounter Details Date Type Department Care Team (Late Contact Info) Description 05/10/2025 Refill [facility] Medicine [place] [address] [address] Duke Alarcon MD [address] [address] Social History Tobacco Use Types Packs/Day Years Used Date Smoking Tobacco: Every Day Cigarettes Passive Smoke Exposure: Current Smokeless Tobacco: Never Alcohol Use Standard Drinks/Week Comments No 0 (1 standard drink = 0.6 oz pur e alcohol) Sex and Gender Information Value Date Recorded Sex Assigned at Not on file 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 [address] Kim Servin MD [address] [place] [phone] 05/31/2025 9:20 AM CDT Office Visit [facility] Family Medicine [place] [address] [place] [address] Duke Alarcon MD [address] [place] [address] 06/07/2025 9:00 AM CDT Appointment [facility] Echo [address] [place] [address] Lawanda Mendoza, [facility] [address] [place] [address] 07/05/2025 9:40 AM CDT Office Visit [facility] [address] [place] [address] Anne Duong, [facility] [address] [place] [address] 09/27/2025 9:30 AM EMBOSSING CALENDER OPERATOR Office Visit [facility] Packaging Operator Optometry [facility] [phone] [place] [address] Constantin Bales, OD [address] [place] [address] documented as of this encounter Visit Diagnoses Not on filedocumented in this encounter Care Teams Desk Operator Relationship Specialty Start Date End Date Duke Alarcon MD [address] [place] [address] PCP - General Family Practice 08/10/24 documented as of this encounter
--- OUTSIDE RECORDS SUMMARY | 2025-05-15 11:36 | XMS_ITS | Clinical Summary ---
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
--- OUTSIDE RECORDS SUMMARY | 2025-05-15 11:36 | XMS_ITS | Encounter Summary ---
Author Organization [facility] Address [address] [place] [address] Care Team Providers Care Crosstie Inspector Name Role Phone Duke Alarcon MD Primary Care Provider [phone] Reason for Visit * Reason Onset Date Comments Medication Refill 05/09/2025 Encounter Details Date Type Department Care Team (Late st Contact Info) Description 05/09/2025 Refill [facility] Medicine [address] [address] Duke Alarcon MD [address] [place] [phone] History of lumbar spinal fusion; Chronic midline low back pain with bilateral sciatica Social History Tobacco Use Types Packs/Day Years Used Date Smoking Tobacco: Every Day Cigarettes Passive Smoke Exposure: Current Smokeless Tobacco: Never Alcohol Use Standard Drinks/Week Comments No 0 (1 standard drink = 0.6 oz pur e alcohol) Sex and Gender Information Value Date Recorded Sex Assigned at Not on file 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 Gender Identity Not on file Sexual Orientation Not on file documented as of this encounter Miscellaneous Notes * Telephone Encounter - Olamide Mcclelland RN - 05/10/2025 2:35 PM CDT Medication Refill Request Last Fill Date:05/07/25 #20 Recent and Future Visits: Recent Visits Date Type Provider Dept 05/03/25 Office Visit Duke Alarcon MD [facility] 01/25/25 Office Visit Duke Alarcon MD [facility] 01/04/25 Office Visit Deysi Vargas, [facility] View 12/21/24 Office Visit Duke Alarcon MD [facility] 12/16/24 Office Visit Mel Dowd, [facility] 11/10/24 Office Visit Roberta Kennedy NP [facility] 10/01/24 Office Visit Mel Dowd, [facility] 09/14/24 Office Visit Deysi Vargas, [facility] 09/04/24 Office Visit Mel Dowd, [facility] 08/10/24 Office Visit Deysi aVrgas, [facility] Showing recent visits within past 540 days with a meds authorizing provider and meeting all other requirements Future Appointments Date Type Provider Dept 05/31/25 Appointment Duke Alarcon MD [facility] Showing future appointments within next 365 days with a meds authorizing provider and meeting all other requirements Last Labs: documented in this encounter Plan of Treatment Upcoming Encounters Date Type Department Care Team (Late st Contact Info) Description 05/26/2025 10:20 AM CDT Office Visit [facility] Ophthal[facility] [place] [address] [phone] Kim Servin MD [address] [place] [address] 05/31/2025 9:20 AM CDT Office Visit [address] [phone] Duke Alarcon MD [address] [address] 06/07/2025 9:00 AM CDT Appointment [facility] Echo [address] [place] [address] Lawanda Mendoza, [facility] [address] [place] [address] 07/05/2025 9:40 AM CDT Office Visit [facility] [address] [place] [address] Anne Duong, [facility] [address] [place] [address] 09/27/2025 9:30 AM EXPLOSIVES DETONATOR Office Visit [facility] Veneer Grader Optometry [facility] [phone] [place] [address] Constantin Bales, OD [address] [place] [address] documented as of this encounter Visit Diagnoses Diagnosis History of lumbar spinal fusion Chronic midline low back pain with bilateral sciatica documented in this encounter Care Teams Crosstie Inspector Relationship Specialty Start Date End Date Duke Alarcon MD [address] [facility] [address] [place] [address] PCP - General Family Practice 08/10/24 documented as of this encounter
--- OUTSIDE RECORDS SUMMARY | 2025-05-15 11:36 | XMS_ITS | Encounter Summary ---
Author Organization [facility] Address [address] [place] [address] Care Team Providers Care Luncheonette Manager Name Role Phone Karlo Banks MD Primary Care Provider [phone] Encounter Details Date Type Department Care Team (Late st Contact Info) Description 07/11/2015 Lab Requisition [facility] [place] [address] [place] [id number] Jyoti Shirley, EGG BREAKING MACHINE OPERATOR [address] [place] [id number] Social History Tobacco Use Types Packs/Day Years Used Date Smoking Tobacco: Former Cigarettes Alcohol Use Standard Drinks/Week Comments No 0 (1 standard drink = 0.6 oz pur e alcohol) Sex and Gender Information Value Date Recorded Sex Assigned at Not on file 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 MICROALBUMIN/CR EAT RATIO, UR 413.9 mg/g Creatinine 07/11/2015 11:45 PM CDT [facility] Comment: Condition mg/g Creatinine Normal Males <17 Normal Females <25 Microalbuminuria Males 17-299 Microalbuminuria Females 25-299 Overt proteinuria >=300 Urine 07/11/2015 10:5 3 PM CDT 07/11/2015 10:53 PM CDT Jyoti Shirley EGG BREAKING MACHINE OPERATOR URINE ORDERABLES Final Result [facility] CLIA # [id number] [address] [place] [id number] * (ABNORMAL) LIPID PANEL (07/11/2015 10:53 PM CDT) CHOLESTEROL 204(H) <200 mg/dL 07/11/2015 11:21 PM CDT [facility] TRIGLYCERIDE 276(H) <150 mg/dL 07/11/2015 11:21 PM CDT [facility] HDL 25(L) 40 - 59 mg/dL 07/11/2015 11:21 PM CDT [facility] LDL CALCULATED 124(H) <100 mg/dL 07/11/2015 11:21 PM CDT [facility] NON-HDL CHOLESTEROL 179(H) <130 mg/dL 07/11/2015 11:21 PM CDT [facility] Blood 07/11/2015 10:5 3 PM CDT 07/11/2015 10:53 PM CDT Narrative [facility] - 07/11/2015 11:21 PM CDT TOTAL CHOLESTEROL [...] >=220 Based on AHA/NCEP Guidelines Jyoti Shirley [facility] CHEMISTRY ORDERABLES Final Resu lt Performing Organization Address [facility] de Phone Number [facility] CLIA # [id number] [address] [place] [phone] * (ABNORMAL) HEMOGLOBIN A1C (07/11/2015 10:53 PM CDT) HEMOGLOBIN A1C 10.6(H) 4.8 - 5.9 % 07/11/2015 11:16 PM CDT [facility] EST. AVG GLUCOSE, A1C 258 mg/dL 07/11/2015 11:16 PM CDT [facility] Blood 07/11/2015 10:5 3 PM CDT 07/11/2015 10:53 PM CDT Jyotivadim Shirley [facility] CHEMISTRY ORDERABLES Final Resu lt Performing Organization Address [facility]/ZIP Co de Phone Number [facility] CLIA # [id number] [address] [place] [address] [id number] * (ABNORMAL) COMPREHENSIVE METABOLIC PANEL (07/11/2015 10:53 PM CDT) SODIUM 129(L) 136 - 145 mmol/L 07/11/2015 11:21 PM [facility] POTASSIUM 3.6 3.5 - 5.1 mmol/L 07/11/2015 11:21 PM [facility] CHLORIDE 87(L) 98 - 107 mmol/L 07/11/2015 11:21 PM [facility] CO2 25 22 - 29 mmol/L 07/11/2015 11:21 PM [facility] CALCIUM 9.3 8.6 - 10.0 mg/dL 07/11/2015 11:21 PM [facility] BUN 12 6 - 20 mg/dL 07/11/2015 11:21 PM [facility] CREATININE 0.61(L) 0.67 - 1.17 mg/dL 07/11/2015 11:21 PM [facility] GLUCOSE 287(H) 74 - 106 mg/dL 07/11/2015 11:21 PM [facility] TOTAL PROTEIN 8.1 6.6 - 8.7 g/dL 07/11/2015 11:21 PM [facility] ALBUMIN 4.5 3.5 - 5.2 g/dL 07/11/2015 11:21 PM [facility] BILIRUBIN TOTAL 2.7(H) 0.0 - 1.2 mg/dL 07/11/2015 11:21 PM [facility] ALKALINE PHOSPHATASE 93 40 - 129 U/L 07/11/2015 11:21 PM [facility] AST 19 10 - 50 U/L 07/11/2015 11:21 PM [facility] [facility] ALT 15 10 - 50 U/L 07/11/2015 11:21 PM [facility] [employer] [facility] GFR >60 >=60 mL/min/1.7 3 sq meter 07/11/2015 11:21 PM [facility] [employer] [facility] Comment: eGFR has not been validated for [...] 3 sq meter 07/11/2015 11:21 PM CDT [facility] [place] ANION GAP 17 12 - 20 mmol/L 07/11/2015 11:21 PM CDT [facility] Blood 07/11/2015 10:5 3 PM CDT 07/11/2015 10:53 PM CDT Jyoti Shirley EGG BREAKING MACHINE OPERATOR CHEMISTRY ORDERABLES Final Resu lt [facility] [place] CLIA # [id number] [address] [place] [address] documented in this encounter Visit Diagnoses Not on filedocumented in this encounter Care Teams Luncheonette Manager Relationship Specialty Start Date End Date Karlo Banks MD PCP - General Internal Medicine 10/14/14 01/11/21 documented as of this encounter
--- OUTSIDE RECORDS SUMMARY | 2025-05-15 11:37 | XMS_ITS | Encounter Summary ---
Author Organization [facility] Address [address] [place] [address] Care Team Providers Care Director Social Welfare Name Role Phone Karlo Banks MD Primary Care Provider [phone] Encounter Details Date Type Department Care Team (Latest Contact Info) Description 11/01/2003 Outpatient Historical [facility] [address] [place] [phone] Holland Bell MD [address] [place] [address] ASTHMA UNSPECIFIED (Primary Dx) Social History Tobacco Use Types Packs/Day Years Used Date Smoking Tobacco: Never Assessed Sex and Gender Information Value Date Recorded Sex Assigned at Not on file 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
--- OUTSIDE RECORDS SUMMARY | 2025-05-15 11:37 | XMS_ITS | Encounter Summary ---
Author Organization [facility] Address [address] [place] [address] Care Team Providers Care Welcome Center Attendant Name Role Phone Karlo Banks MD Primary Care Provider [phone] Encounter Details Date Type Department Care Team (Latest Contact Info) Description 02/24/2004 Outpatient Historical [facility] [address] [place] [phone] Holland Bell MD [address] [place] [phone] CONJUNCTIVITIS NOS (Primary Dx) Social History Tobacco Use Types Packs/Day Years Used Date Smoking Tobacco: Never Assessed Sex and Gender Information Value Date Recorded Sex Assigned at Not on file 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
--- OUTSIDE RECORDS SUMMARY | 2025-05-15 11:37 | XMS_ITS | Clinical Summary ---
Author Organization [facility] Address [address] [facility] [address] [place] [address] Phone Care Team Providers Care Testboard Operator Name Role Phone Duke Alarcon MD Primary Care Provider [phone] Allergies Active Allergy Reactions Criticality Noted Date Comments Julio Inhibitors Other (See Comments) High 01/04/2025 Arb-Angiotensin Receptor Antagonist Other (See Comments) High 01/04/2025 Lisinopril Other (See Comments) High 07/14/2024 Angioedema Venom-Honey Bee Rash,Swelling Low 10/14/2014 Medications lancets 4 times per day testing insulin 120 Each Active alcohol Pads, Medicated 4 times per day glucose testing. 120 Each 024 Active EPINEPHrine (EPIPEN) 0.3 mg/0.3 mL Auto-Injector Inject 0.3 mL (0.3 mg) by intramuscular injection 1 time daily as needed for Anaphylaxis. 1 Each 024 Active albuterol sulfate HFA 90 mcg/actuation aerosol inhalerIndicatio ns:Shortness of breath Take 2 Puffs by inhalation every 6 hours as needed for Shortness of Breath. 8.5 Gram 1 025 Active aspirin (ECOTRIN EC) 81 mg Tablet, Delayed Release (E.C.) Take 1 Tablet (81 mg) by mouth daily. 30 Tablet 025 Active ARIPiprazole (Abilify) 5 mg tabletIndication s:Paranoid schizophrenia (CMS/HCC) Take 1 Tablet (5 mg) by mouth daily. 30 Tablet 5 025 Active ondansetron (ZOFRAN ODT) 4 mg Tablet, Rapid Dissolve DISSOLVE 1 TABLET IN MOUTH EVERY 6 HOURS NEEDED FOR NAUSEA / EMESIS. DISSOLVE TABLET ON TOP OF TONGUE,THEN SWALLOW WITH SALIVA 025 Active naloxone (NARCAN) 4 mg/spray [place], Non-Aerosol EMERGENCY USE ONLY: Administer 1 spray (4 mg) in one nostril one time. May repeat in alternating nostrils every 2-3 min until responsive or EMS arrives. 2 Each 3 025 Active hydrALAZINE (APRESOLINE) 100 mg Tablet tablet Take 1 Tablet (100 mg) by mouth every 8 hours. 300 Tablet 3 025 Active lidocaine-transp arent dressing (LMX 4 PLUS) 4 % Kit Apply to affected area. Active diphenhydrAMINE (BENADRYL) 25 mg tablet Take 25 mg by mouth. Active traZODone (DESYREL) 50 mg tabletIndication s:Paranoid schizophrenia ([facility]) Take 1 Tablet (50 mg) by mouth daily at bedtime. 30 Tablet 5 025 Active spironolactone (ALDACTONE) 50 mg tabletIndication s:ESRD (end stage renal disease) ([facility]),Chroni c combined systolic (congestive) and diastolic (congestive) heart failure ([facility]),Malign ant hypertension Take 1 Tablet (50 mg) by mouth daily. 90 Tablet 025 Active insulin lispro (HumaLOG KwikPen Insulin) 100 unit/mL pen syringeIndicatio ns:Type 1 diabetes mellitus with chronic kidney disease on chronic dialysis ([facility]) Inject 6 Units by subcutaneous injection 3 times daily with meals. Inject 6 units 3 times daily before meals plus a medium dose sliding scale. Max units per day 60 units. 15 mL 1 025 Active insulin glargine (Lantus Solostar U-100 Insulin) 100 unit/mL pen syringeIndicatio ns:Type 1 diabetes mellitus with chronic kidney disease on chronic dialysis ([facility]) Inject 25 Units by subcutaneous injection 2 times daily. 15 mL 5 025 Active gabapentin (NEURONTIN) 100 mg capsuleIndicatio ns:History of lumbar spinal fusion,Chronic midline low back pain with bilateral sciatica Take 2 Capsules (200 mg) by mouth 3 times daily. 180 Capsule 025 Active cloNIDine HCL (CATAPRES) 0.2 mg tabletIndication s:Malignant hypertension Take 1 Tablet (0.2 mg) by mouth 3 times daily. 90 Tablet 025 Active carvediloL (COREG) 25 mg tabletIndication s:Chronic combined systolic (congestive) and diastolic (congestive) heart failure (CMS/HCC),Malign ant hypertension Take 1 Tablet (25 mg) by mouth every 12 hours. 60 Tablet 025 Active buPROPion HCL (WELLBUTRIN XL) 150 mg Extended Release 24 hour tabletIndication s:Paranoid schizophrenia (CMS/HCC) Take 1 Tablet (150 mg) by mouth daily. 30 Tablet 025 Active bumetanide (BUMEX) 1 mg tabletIndication s:ESRD (end stage renal disease) (CMS/HCC),Chroni c combined systolic (congestive) and diastolic (congestive) heart failure (CMS/HCC),Malign ant hypertension Take 1 Tablet (1 mg) by mouth 2 times daily. 60 Tablet 025 Active atorvastatin (LIPITOR) 80 mg tabletIndication s:Type 1 diabetes mellitus with chronic kidney disease on chronic dialysis (CMS/HCC) Take 1 Tablet (80 mg) by mouth daily. 30 Tablet 025 Active amLODIPine (NORVASC) 10 mg tabletIndication s:Malignant hypertension Take 1 Tablet (10 mg) by mouth daily. 30 Tablet 025 Active amitriptyline (ELAVIL) 50 mg tabletIndication s:Paranoid schizophrenia (CMS/HCC) Take 1 Tablet (50 mg) by mouth daily at bedtime. 30 Tablet 025 Active varenicline tartrate (CHANTIX) 0.5 mg (11)- 1 mg (42) tablets STARTER dose packIndications: Tobacco dependence Take as directed on package. 53 Tablet 025 Active Blood Pressure Monitor KitIndications:U ncontrolled hypertension To monitor blood pressure daily [facility] D[employer] 1 Each 025 Active Blood-Glucose Meter,Continuous (DexWhistleTalk G7 Talent Specialist)Indicat ions:Type 1 diabetes mellitus with other kidney complication (CMS/HCC) Use with sensor to monitor glucose continuously. 1 Each Active Blood-Glucose Sensor (Dexcom G7 Sensor) DeviceIndication s:Type 1 diabetes mellitus with other kidney complication ([facility]) To continuously monitor blood sugar. Change sensor every 10 days. 3 Each 8 Active blood sugar diagnostic Strip Needs 120 strips for 4 times per day 100 Strip 1 Active traMADol (ULTRAM) 50 mg tabletIndication s:History of lumbar spinal fusion,Chronic midline low back pain with bilateral sciatica Take 1 Tablet (50 mg) by mouth every 8 hours as needed for Pain. 20 Tablet Active Rezvoglar KwikPen 100 unit/mL (3 mL) Insulin Pen INJECT 25 UNITS SUBCUTANEOUSLY TWICE DAILY Active blood sugar diagnostic Strip Needs 120 strips for 4 times per day 120 Strip 024 2024 Discontinued(R eorder) insulin lispro (HumaLOG KwikPen Insulin) 100 unit/mL pen syringe Inject 10 units 3 times daily before meals plus a medium dose sliding scale. 15 mL 024 2024 Discontinued(R eorder) Blood-Glucose Sensor (Dexcom G7 Sensor) DeviceIndication s:Type 1 diabetes mellitus with other kidney complication ([facility]) To continuously monitor blood sugar. Change sensor every 10 days. 3 Each 8 024 2024 Discontinued(R eorder) Blood Pressure Monitor KitIndications:U ncontrolled hypertension To monitor blood pressure daily 1 Each 024 2024 Discontinued(R eorder) insulin glargine (Lantus Solostar U-100 Insulin) 100 unit/mL pen syringe Inject 25 Units by subcutaneous injection 2 times daily. 15 mL 025 2024 Discontinued(R eorder) spironolactone (ALDACTONE) 25 mg tablet Take 1 Tablet (25 mg) by mouth daily. 30 Tablet 2 025 2024 Discontinued(R eorder) atorvastatin (LIPITOR) 80 mg tablet Take 1 Tablet (80 mg) by mouth daily. 30 Tablet 2 025 2024 Discontinued(R eorder) amLODIPine (NORVASC) 10 mg tablet Take 1 Tablet (10 mg) by mouth daily. 30 Tablet 2 025 2024 Discontinued(R eorder) cloNIDine HCL (CATAPRES) 0.2 mg tablet Take 1 Tablet (0.2 mg) by mouth 3 times daily. 90 Tablet 2 025 2024 Discontinued(R eorder) carvediloL (COREG) 25 mg tablet Take 1 Tablet (25 mg) by mouth every 12 hours. 60 Tablet 2 2024 Discontinued(R eorder) gabapentin (NEURONTIN) 100 mg capsuleIndicatio ns:History of lumbar spinal fusion Take 1 Capsule (100 mg) by mouth 3 times daily. 90 Capsule 2 025 2024 Discontinued(R eorder) buPROPion HCL (WELLBUTRIN XL) 150 mg Extended Release 24 hour tabletIndication s:Paranoid schizophrenia (CMS/HCC) Take 1 Tablet (150 mg) by mouth daily. 30 Tablet 2 025 2024 Discontinued(R eorder) amitriptyline (ELAVIL) 50 mg tabletIndication s:Paranoid schizophrenia (CMS/HCC) Take 1 Tablet (50 mg) by mouth daily at bedtime. 30 Tablet 2 025 2024 Discontinued(R eorder) bumetanide (BUMEX) 1 mg tablet Take 1 Tablet by mouth. 025 2024 Discontinued(R eorder) varenicline tartrate (CHANTIX) 0.5 mg Tablet Take 0.5 mg by mouth 2 times daily. 2024 Discontinued cyclobenzaprine (FLEXERIL) 10 mg tablet 2024 Discontinued(S brien effect/intoler ance) traZODone (DESYREL) 50 mg tablet Take 50 mg by mouth daily at bedtime. 025 2024 Discontinued(R eorder) traMADol (ULTRAM) 50 mg tabletIndication s:History of lumbar spinal fusion,Chronic midline low back pain with bilateral sciatica Take 1 Tablet (50 mg) by mouth every 8 hours as needed for Pain. 20 Tablet 025 2024 Discontinued(R eorder) diabetic shoes with inserts Length of Need: 99 months. Patient has diabetes mellitus and one of the following: peripheral neuropathy with evidence of callus Patient has diabetes mellitus and perhipheral neuropathy. Patient is being treated under comprehensive plan for diabetes and the patient needs special shoes because of diabetes. Dispense 1/ year shoe and 3/year inserts. 1 Each 025 2024 blood sugar diagnostic Strip Needs 120 strips for 4 times per day 100 Strip 1 025 2024 Discontinued(R eorder) Blood-Glucose Sensor (Dexcom G7 Sensor) DeviceIndication s:Type 1 diabetes mellitus with other kidney complication ([facility]) To continuously monitor blood sugar. Change sensor every 10 days. 3 Each 8 025 2024 Discontinued(R eorder) traMADol (ULTRAM) 50 mg tabletIndication s:History of lumbar spinal fusion,Chronic midline low back pain with bilateral sciatica Take 1 Tablet (50 mg) by mouth every 8 hours as needed for Pain. 20 Tablet 025 2024 Discontinued(R eorder) Active Problems Problem Noted Date Diagnosed Date LISET (obstructive sleep apnea) 05/03/2025 Chronic midline low back pain with bilateral sci atica 04/26/2025 Hyperkalemia 04/26/2025 Encounter for tobacco use [...] chronic kidney disease, on chronic dialysis 12/03/2024 03/ Non-ST elevation (NSTEMI) my ocardial infarction 12/03/2024 01/25/2025 Generalized edema due to fluid overload 12/03/2024 01/25/2025 Stage 5 chronic kidney disea se not on chronic dialysis 12/03/2024 12/21/2024 Acute coronary syndrome 12/03/202411/15 Stage 3a chronic kidney disease 08/27/2024 01/25/2025 [...] Encounters Date Type Department Care Team Description 05/10/[address] [phone] Duke Alarcon MD 05/09/[address] [phone] Duke Alarcon MD History of lumbar spinal fusion; Chronic midline low back pain with bilateral sciatica 05/07/[address] [place] [address] Duke Alarcon MD Type 1 diabetes mellitus with other kidney complication ([facility]/HCC); History of lumbar spinal fusion; Chronic midline low back pain with bilateral sciatica 05/05/[address] [place] [address] Duke Alarcon MD Needs Orders Written 05/05/[address] [place] [address] Deysi Vargas FNP Type 1 diabetes mellitus with other kidney complication (CMS/HCC); Uncontrolled hypertension 05/05/[address] [place] [address] Duke Alarcon MD 05/04/2025 [facility] [address] [phone] Duke Alarcon MD Needs Orders Written 05/04/[address] [address] Duke Alarcon MD Needs Orders Written 05/04/[address] [phone] Duke Alarcon MD Results 05/03/2025 9:20 AM CDT Office Visit [address] [phone] Duke Alarcon MD ESRD (end stage renal disease) ([facility]) (Primary Dx); History of lumbar spinal fusion; Type 1 diabetes mellitus with chronic kidney disease on chronic dialysis ([facility]); Chronic combined systolic (congestive) and diastolic (congestive) heart failure ([facility]); LISET (obstructive sleep apnea); Chronic midline low back pain with bilateral sciatica; Malignant hypertension; Paranoid schizophrenia ([facility]); Tobacco dependence 04/28/2025 External Device Data STL ABSTRACTION Provider, Abstract 04/26/2025 5:25 PM CDT - 04/27/2025 3:15 PM CDT Hospital Encounter [facility] [place] 6[facility] Neuro [facility] [address] [place] [address] Cruz Dinh DO Sundaram, Vignesh, MD [place], Ramya Sree, MD Mady, Mohamed Hamdy Ahmed Mohamed, MD Hypertensive emergency Discharge Disposition: Home or Self Care 04/26/2025 10:33 AM CDT - 04/26/2025 3:26 PM CDT Emergency [facility] Emergency Medicine [address] [phone] Kelsea Dailey MD Hypertensive emergency (Primary Dx) Discharge Disposition: Acute Care Hospital 04/26/2025 - 04/26/2025 11:59 PM CDT Hospital Encounter [facility] Emergency Medical Services [place] [address] [phone] Kelsea Dailey MD Ambulance, [facility] Discharge Disposition: [facility] 04/26/2025 Travel 04/23/2025 9:05 AM CDT - 04/23/2025 11:59 PM CDT Hospital Encounter [facility] Interventional Radiology [address] [place] [phone] Angélica Ny MD McCarter, Bradley S Discharge Disposition: Home or Self Care 04/23/2025 Telephone [facility] Specialists Ophthalmology [place] [address] [phone] Kim Servin MD Information (Spoke with pt regarding rescheduled appt on 05/26/25 at 10:20. Pt is good with this day and time. TA) 04/20/2025 External Device Data STL ABSTRACTION Provider, Abstract 04/15/2025 9:40 AM CDT Office Visit [address] [phone] Duke Alarcon MD ERRONEOUS ENCOUNTER--DISREGARD (Primary Dx) 04/15/[address] [phone] Duke Alarcon MD Requesting Sooner Appointment; Wants Dr. Alarcon 04/15/[address] [address] Duke Alarcon MD Appointment Notification 04/13/2025 External Device Data STL ABSTRACTION Provider, Abstract 04/11/2025 4:33 PM CDT - 04/11/2025 11:03 PM CDT Emergency [facility] Emergency Medicine [address] [phone] Kelsea Daiely MD Starnes, Kenneth Fondren, MD Hypertensive emergency (Primary Dx); Other hypervolemia; Need for acute hemodialysis Discharge Disposition: Acute Care Hospital 04/11/2025 12:15 AM CDT - 04/11/2025 11:59 PM CDT Hospital Encounter [facility] Emergency Medical Services [address] [address] Maximilian Beckham MD Ambulance, [facility] Discharge Disposition: [facility] 04/11/2025 Travel 04/06/2025 External Device Data STL ABSTRACTION Provider, Abstract 03/31/2025 1:20 PM CDT Office Visit [facility] [address] [place] [phone] Prince Perez MD Goodwin, Jessica Lindiwe, [employer] Cardiomyopathy, unspecified type (CMS/HCC) (Primary Dx) 03/23/2025 External Device Data STL ABSTRACTION Provider, Abstract 03/23/2025 Telephone [place] [address] [place] [phone] Prince Perez MD PT asking for Urgent appoitment 03/19/2025 3:00 PM CDT Office Visit [facility] Vascular Surgery [address] [phone] Amy Null MD ESRD (end stage renal disease) ([facility]) (Primary Dx) 03/19/2025 2:30 PM CDT Ancillary Procedure [facility] V[facility] Lab [facility]- [address] [phone] Amy Null MD CKD (chronic kidney disease) stage 5, GFR less than 15 ml/min ([facility]/HCC) 03/16/2025 Telephone [facility] Vascular Surgery [address] [phone] Amy Null MD Appointment Verification 03/05/2025 Telephone [facility] Vascular Surgery [place] [phone] [place] [address] Amy Null MD Appointment Verification 02/22/2025 9:50 AM CDT Office Visit [facility] Ophthalmology 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 Gender Identity Not on file Sexual Orientation Not on file Last Filed Vital Signs Vital Sign Reading Time Taken Comments Blood Pressure 214/120 05/03/2025 9:51 AM CDT Pulse 72 05/03/2025 9:20 AM CDT Temperature 36.7 C (98.1 F) 05/03/2025 9:20 AM CDT Respiratory Rate 18 05/03/2025 9:20 AM CDT Oxygen Saturation 94% 05/03/2025 9:20 AM CDT Inhaled Oxygen Concentration - - Weight 96.2 kg (212 lb) 05/03/2025 9:20 AM CDT Height 182.9 cm (6') 05/03/2025 9:20 AM CDT Body Mass Index 28.75 05/03/2025 9:20 AM CDT Plan of Treatment Upcoming Encounters Date Type Department Care Team (Late st Contact Info) Description 05/26/2025 10:20 AM CDT Office Visit [facility] Ophthalmology [place] [address] [place] [address] Kim Servin MD [address] [place] [address] 05/31/2025 9:20 AM CDT Office Visit [facility] Family Medicine [place] [address] [phone] Duke Alarcon MD [address] [phone] 06/07/2025 9:00 AM CDT Appointment [facility] [address] [place] [address] Lawanda Mendoza, [facility] [address] [facility] [address] [place] [address] 07/05/2025 9:40 AM CDT Office Visit [facility] [address] [place] [address] Anne Duong, [facility] [address] [place] [address] 09/27/2025 9:30 AM ASSOCIATE PROFESSOR OF MEDICINE Office Visit [facility] Licensing And Registration Director Optometry [facility] [address] [place] [address] Constantin Bales, OD [address] [facility] [address] [place] [address] Health Maintenance Due Date Last [...] 11/10/2024, 07/13/2024, Additional history exists DIABETES ANNUAL RETINAL EXAM 02/22/202609/2025, 01/11/2025, 01/11/2025, Additional history exists DIABETES ANNUAL FOOT EXAM 05/03/2026 05/03/2025, Abdominal Aortic Aneurysm (A AA) Screening Completed 08/07/2024, 12/28/2023 Medical Devices Explanted Type Area Bar Manager Device Identifier Shelf Expiration Date Model / Serial / Lot Cath Dialysis Glidepath 14.5fr 23cm [facility] [id number] - [id number] Implanted:Qty: 1 on 12/04/2024 by Constantin Crum MD at [facility] Explanted:Qty: 1 on 04/23/2025 by Reji Sethi Catheter Right: Chest BARD TRICE VASC [id number] 03/13/2026 [id number] / / [id number] Procedures Procedure Name Priority Date/Time Associated Diagnosis [...] 1 VW Stat 04/26/2025 11:43 AM CDT LIPASE Stat 04/26/2025 10:45 AM CDT BRAIN NATRIURETIC PEPTIDE, BNP OR PROBNP Stat 04/26/2025 10:45 AM CDT TROPONIN BASELINE, 5TH GEN Stat 04/26/2025 10:45 AM CDT MAGNESIUM LEVEL Stat 04/26/2025 10:45 AM CDT C-REACTIVE PROTEIN Stat 04/26/2025 10 :45 AM CDT COMPREHENSIVE METABOLIC PANEL Stat 04/26/2025 10:45 AM CDT CBC WITH DIFFERENTIAL Stat 04/26/2025 10:45 AM CDT XR CHEST PA OR AP 1 VW Stat 04/11/2025 5:29 PM CDT POC GLUCOSE Stat 04/11/2025 [...] eyes HEMOGLOBIN A1C Routine 11/10/2024 2:22 PM 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 Narrative Procedure Note Liliana Juice Deangelo, DO - 04/27/2025 IMPRESSION: Please see below. [...] of4 resultswithin the time period is included. [facility] GLUCOSE POC 110(H) 74 - 99 mg/dL 04/27/2025 12:52 PM CDT [facility] SPECIMEN SOURCE, GLUCOSE POC Capillary 04/27/2025 12:52 PM CDT [facility] Blood, whole 04/27/2025 12:5 2 PM CDT 04/27/2025 2:19 PM CDT Katherine Lyons MD POINT OF CARE TESTING Fi nal Result [facility] CLIA # [id number] [facility] [address] * (ABNORMAL) CBC WITH DIFFERENTIAL (04/27/2025 1:14 AM CDT) Only the most recent of3 resultswithin the time period is included. [facility] WBC 10.4 4.5 - 11.0 K/uL 04/27/2025 1:42 AM CDT [facility] RBC 2.79(L) 4.60 - 6.20 M/uL 04/27/2025 1:42 AM CDT [facility] HEMOGLOBIN 8.8(L) 14.0 - 18.0 g/dL 04/27/2025 1:42 AM [facility] HEMATOCRIT 26.4(L) 41.0 - 53.0 % 04/27/2025 1:42 AM CDT [facility] MCV 94.6 84.0 - 103.0 fL 04/27/2025 1:42 AM CDT [facility] MCH 31.5 27.0 - 34.0 pg 04/27/2025 1:42 AM CDT [facility] MCHC 33.3 30.0 - 35.0 g/dL 04/27/2025 1:42 [facility] 140 - 440 K/uL 04/27/2025 1:42 AM [facility] MPV 10.1 8.9 - 12.8 fL 04/27/2025 1:42 AM [facility] RDW 14.2 11.0 - 14.5 % 04/27/2025 1:42 AM [facility] RDW-STDEV 48.1 37.0 - 54.0 fL 04/27/2025 1:42 AM [facility] NEUTROPHILS 70 42 - 75 % 04/27/2025 1:42 AM [facility] LYMPHOCYTES 21(L) 24 - 44 % 04/27/2025 1:42 AM [facility] MONOCYTES 6 2 - 10 % 04/27/2025 1:42 AM [facility] EOSINOPHILS 1 0 - 7 % 04/27/2025 1:42 AM [facility] BASOPHILS 1 0 - 1 % 04/27/2025 1:42 AM [facility] IMMATURE GRANULOCYTES 0 0 - 2 % 04/27/2025 1:42 AM [facility] NEUTROPHIL ABSOLUTE 7.31 2.00 - 8.00 K/uL 04/27/2025 1:42 AM [facility] LYMPHOCYTE ABSOLUTE 2.18 1.20 - 4.00 K/uL 04/27/2025 1:42 AM [facility] MONOCYTE ABSOLUTE 0.63(H) 0.10 - 0.60 K/uL 04/27/2025 1:42 AM [facility] EOSINOPHIL ABSOLUTE 0.15 0.00 - 0.70 K/uL 04/27/2025 1:42 AM [facility] BASOPHILS ABSOLUTE 0.07 0.00 - 0.20 K/uL 04/27/2025 1:42 AM [facility] IMMATURE GRANULOCYTES ABSOLUTE 0.04 0.00 - 0.10 K/uL 04/27/2025 1:42 AM [facility] SMEAR REVIEWED: NA - Not Applicable 04/27/2025 1:42 AM [facility] Blood Venipuncture / Unknown 04/27/2025 1:14 AM CDT 04/27/2025 1:37 AM CDT Ben Porter MD HEMATOLOGY ORDERABLES Final Result [facility] CLIA # [id number] [address] [place] [id number] * (ABNORMAL) BASIC METABOLIC PANEL (04/27/2025 1:14 AM CDT) Only the most recent of2 resultswithin the time period is included. SODIUM 137 136 - 145 mmol/L 04/27/2025 2:14 AM T [facility] POTASSIUM 5.4(H) 3.5 - 5.1 mmol/L 04/27/2025 2:14 AM T [facility] CHLORIDE 96(L) 98 - 107 mmol/L 04/27/2025 2:14 AM T [facility] CO2 26 22 - 29 mmol/L 04/27/2025 2:14 AM T [facility] CALCIUM 9.1 8.6 - 10.0 mg/dL 04/27/2025 2:14 AM T [facility] BUN 48(H) 6 - 20 mg/dL 04/27/2025 2:14 AM [facility] CREATININE 7.24(H) 0.67 - 1.17 mg/dL 04/27/2025 2:14 AM T [facility] GLUCOSE 184(H) 74 - 99 mg/dL 04/27/2025 2:14 AM [facility] GFR 9(L) >=60 mL/min/1. 73 sq meter 04/27/2025 2:14 AM T [facility] Comment:eGFR calculated with 2020 CKD-EPI equation. Vegetarian diet, extremely high or low muscle mass, and may affect results. Cystatin C with Glomerular Filtration Rate is a suitable alternative for these patients. ANION GAP 15 9 - 20 mmol/L 04/27/2025 2:14 AM CDT [facility] Blood Venipuncture / Unknown 04/27/2025 1:14 AM CDT 04/27/2025 1:36 AM CDT Ben Porter MD CHEMISTRY ORDERABLES Final R esult Performing Organization Address City/[facility]/ZIP Co de Phone Number [facility] CLIA # [id number] [address] [place] [address] * (ABNORMAL) TROPONIN 6 HR, 5TH GEN (04/26/2025 6:59 PM CDT) TROPONIN T, 6 HR 5TH GEN 184(HH) <=15 ng/L 04/26/2025 7:50 PM CDT [facility] Blood Venipuncture / Unknown 04/26/2025 6:59 PM CDT 04/26/2025 7:16 PM CDT Narrative [facility] - 04/26/2025 7:50 PM CDT Troponin elevated. Unable to calculate delta. Delay in collection of timed specimen beyond recommended collection interval. Results must be interpreted in clinical context. us Cruz Dinh DO CHEMISTRY ORDERABLES Final Re sult Performing Organization Address City/[facility]/ZIP Co de Phone Number [facility] CLIA # [id number] [address] [place] [address] * EKG 12-LEAD (04/26/2025 6:06 PM CDT) Only the most recent of2 resultswithin the time period is included. 04/26/2025 6:06 PM CDT Narrative INTERFACE SYSTEM - 04/27/2025 8:02 PM CDT [id number] [place] [address] Test Date: 2025-04-26 Pat Name: VIDA SAN Department: 11 Room: 18 18 Gender: Male Asp Web Developer: [id number] : 1990 Requested By: Order Number: [id number] Reading : Lázaro Barker Measurements Intervals [place] Rate: 84 P: 55 OR: 160 QRS: 51 QRSD: 88 T: 96 QT: 414 QTc: 489 Interpretive Statements Normal sinus rhythm Nonspecific T wave abnormality Prolonged QT Abnormal ECG Electronically Signed On 04-27-2025 20:02:40 CDT by Lázaro Barker Procedure Note Lázaro Barker MD - 04/27/[address] [address] Test Date: 2025-04-26 Pat Name: VIDA SAN Department: 11 Room: 18 18 Gender: Male Asp Web Developer: [id number] : 1990 Requested By: Order Number: [id number] Mckay MD: Lázaro Barker Measurements Intervals [place] Rate: 84 P: 55 OR: 160 QRS: 51 QRSD: 88 T: 96 QT: 414 QTc: 489 Interpretive Statements Normal sinus rhythm Nonspecific T wave abnormality Prolonged QT Abnormal ECG Electronically Signed On 04-27-2025 20:02:40 CDT by Lázaro Barker Cruz Dinh DO ECG ORDERABLES Final Result Performing Organization Address [facility]/State/[facility] Co de Phone Number INTERFACE SYSTEM [...] us Cruz Dinh DO PROCEDURE/MINOR SURGICAL ORDE SHRAVAN Final Result * (ABNORMAL) TROPONIN 2 HR, 5TH GEN (04/26/2025 12:45 PM CDT) TROPONIN T, 2 HR 5TH GEN 187(HH) <=15 ng/L 04/26/2025 1:18 PM CDT [facility] Comment:Hemolysis can falsel y decrease Troponin quantitation. DELTA 2HR TROPONIN T % 3 See Interp. % 04/26/2025 1:18 PM CDT [facility] Blood BLOOD SPECIMEN / Unknown Venipuncture / Unknown 04/26/2025 12:45 PM CDT 04/26/2025 12:58 PM CDT Narrative [facility] - 04/26/2025 1:18 PM CDT Troponin elevated. Delta not changing. us Kelsea Dailey MD CHEMISTRY ORDERABLES Final Resu lt [facility] CLIA # [id number] [address] [place] [id number] * XR CHEST PA OR AP 1 [...] pneumothorax is identified. Old right clavicle fracture. Result Agustin Dailey MD DIAGNOSTIC IMAGING ORDERABLES F inal Result * (ABNORMAL) TROPONIN BASELINE, 5TH GEN (04/26/2025 10:45 AM CDT) TROPONIN T, BASELINE 5TH GEN 182(HH) <=15 ng/L 04/26/2025 11:33 AM CDT [facility] Blood BLOOD SPECIMEN / Unknown Venipuncture / Unknown 04/26/2025 10:45 AM CDT 04/26/2025 11:00 AM CDT Narrative [facility] - 04/26/2025 11:33 AM CDT Troponin elevated. Result Agustin Dailey MD CHEMISTRY ORDERABLES Final Resu lt [facility] CLIA # [id number] [address] [place] [address] * (ABNORMAL) C-REACTIVE PROTEIN (04/26/2025 10:45 AM CDT) CRP 6.7(H) <5.0 mg/L 04/26/2025 11:32 AM CDT [facility] Blood BLOOD SPECIMEN / Unknown Venipuncture / Unknown 04/26/2025 10:45 AM CDT 04/26/2025 11:00 AM CDT us Kelsea Dailey MD CHEMISTRY ORDERABLES Final Resu lt [facility] CLIA # [id number] [address] [place] [address] * (ABNORMAL) BRAIN NATRIURETIC PEPTIDE, BNP OR PROBNP (04/26/2025 10:45 AM CDT) Only the most recent of2 resultswithin the time period is included. PROBNP, N TERMINAL 32,589(H) 0 - 125 pg/mL 04/26/2025 11:32 AM CDT [facility] Comment: INTERPRETIVE COMMENT based on diagnosis: Diagnostic [...] ORDERABLES Final Resu lt Performing Organization Address City/[facility] Co de Phone Number [facility] CLIA # [id number] [address] [place] [address] * MAGNESIUM LEVEL (04/26/2025 10:45 AM CDT) MAGNESIUM 2.5 1.6 - 2.6 mg/dL 04/26/2025 11:32 AM CDT [facility] Blood BLOOD SPECIMEN / Unknown Venipuncture / Unknown 04/26/2025 10:45 AM CDT 04/26/2025 11:00 AM CDT us Kelsea Dailey MD CHEMISTRY ORDERABLES Final Resu lt [facility] CLIA # [id number] [address] [place] [address] * LIPASE (04/26/2025 10:45 AM CDT) Pathologist [facility] LIPASE 40 13 - 60 U/L 04/26/2025 11:32 AM [facility] Blood BLOOD SPECIMEN / Unknown Venipuncture / Unknown 04/26/2025 10:45 AM CDT 04/26/2025 11:00 AM CDT us Kelsea Dailey MD CHEMISTRY ORDERABLES Final Resu lt Performing Organization Address [facility] Co de Phone Number [id number] [address] [place] [address] * (ABNORMAL) COMPREHENSIVE METABOLIC PANEL (04/26/2025 10:45 AM CDT) Only the most recent of2 resultswithin the time period is included. Pathologist [facility] SODIUM 134(L) 136 - 145 mmol/L 04/26/2025 11:32 AM [facility] POTASSIUM 5.8(H) 3.5 - 5.1 mmol/L 04/26/2025 11:32 AM [facility] CHLORIDE 93(L) 98 - 107 mmol/L 04/26/2025 11:32 AM [facility] CO2 27 22 - 29 mmol/L 04/26/2025 11:32 AM [facility] CALCIUM 10.7(H) 8.6 - 10.0 mg/dL 04/26/2025 11:32 AM [facility] BUN 42(H) 6 - 20 mg/dL 04/26/2025 11:32 AM [facility] CREATININE 6.56(H) 0.67 - 1.17 mg/dL 04/26/2025 11:32 AM [facility] GLUCOSE 220(H) 74 - 99 mg/dL 04/26/2025 11:32 AM [facility] TOTAL PROTEIN 7.2 6.6 - 8.7 g/dL 04/26/2025 11:32 AM [facility] ALBUMIN 3.6 3.5 - 5.2 g/dL 04/26/2025 11:32 AM [facility] BILIRUBIN TOTAL 0.3 0.0 - 1.2 mg/dL 04/26/2025 11:32 AM [facility] ALKALINE PHOSPHATASE 95 40 - 129 U/L 04/26/2025 11:32 AM [facility] AST 16 0 - 50 U/L 04/26/2025 11:32 AM [facility] ALT 10 0 - 50 U/L 04/26/2025 11:32 AM [facility] GFR 11(L) >=60 mL/min/1.7 3 sq meter 04/26/2025 11:32 AM [facility] Comment:eGFR calculated with 2020 CKD-EPI equation. Vegetarian diet, extremely high or low muscle mass, and may affect results. Cystatin C with Glomerular Filtration Rate is a suitable alternative for these patients. ANION GAP 14 5 - 20 mmol/L 04/26/2025 11:32 AM [facility] Blood BLOOD SPECIMEN / Unknown Venipuncture / Unknown 04/26/2025 10:45 AM CDT 04/26/2025 11:00 AM CDT Kelsea Dailey MD CHEMISTRY ORDERABLES Final Resu lt [facility] CLIA # [id number] [address] [place] [address] * (ABNORMAL) URINALYSIS MICROSCOPY ONLY (04/11/2025 4:42 PM CDT) WBC UA 0-2 0 - 2 /hpf 04/11/2025 5:08 PM [facility] RBC UA 6-10(A) 0 - 2 /hpf 04/11/2025 5:08 PM [facility] BACTERIA UA Negative Negative /hpf 04/11/2025 5:08 PM CDT [facility] EPITHELIAL CELLS, URINE 0-5 0 - 5 /hpf 04/11/2025 5:08 PM CDT [facility] HYALINE CAST 6-10(A) None Seen, 0-2 /lpf 04/11/2025 5:08 PM T [facility] Urine URINE SPECIMEN OBTAINED BY CLEAN CATCH PROCEDURE / Unknown Collection / Unknown 04/11/2025 4:42 PM CDT 04/11/2025 4:53 PM CDT Kelsea Dailey MD URINE ORDERABLES Final Result [facility] CLIA # [id number] [address] [place] [address] 884388 * (ABNORMAL) URINALYSIS WITH REFLEX MICROSCOPIC (04/11/2025 4:42 PM CDT) COLOR UA Yellow Pale to Dark Yellow 04/11/2025 5:08 PM T [facility] CLARITY UA Clear Clear 04/11/2025 5:08 PM T [facility] SPECIFIC GRAVITY UA 1.020 1.003 - 1.035 04/11/2025 5:08 PM [facility] PH UA 7.5 5.0 - 8.0 04/11/2025 5:08 PM [facility] LEUKOCYTE ESTERASE UA Negative Negative 04/11/2025 5:08 PM T [facility] NITRITE UA Negative Negative 04/11/2025 5:08 PM T [facility] PROTEIN UA 3+(A) Negative 04/11/2025 5:08 PM [facility] GLUCOSE UA 2+(A) Negative 04/11/2025 5:08 PM [facility] KETONES UA Negative Negative 04/11/2025 5:08 PM [facility] UROBILINOGEN UA 0.2 <2.0 mg/dL 5:08 PM [facility] BILIRUBIN UA Negative Negative 04/11/2025 5:08 PM CDT [facility] BLOOD UA 2+(A) Negative 04/11/2025 5:08 PM CDT [facility] Urine URINE SPECIMEN OBTAINED BY CLEAN CATCH PROCEDURE / Unknown Collection / Unknown 04/11/2025 4:42 PM CDT 04/11/2025 4:53 PM CDT us Kelsea Dailey MD URINE ORDERABLES Final Result [facility] CLIA # [id number] [address] [place] [address] * US DIALYSIS ACCESS IMAGING (03/19/2025 2:25 PM CDT) Anatomical Region Laterality Modality Upper Extremity Ultrasound 03/19/2025 2:07 PM CDT Narrative 03/19/2025 8:22 PM CDT [facility] [address] [place] [address] [place] [address] Noninvasive Vascular Lab Upper Extremity Hemodialysis Access Follow-up Evaluation Patient: Vida San Study ID: US DIALYSIS ACCE Gender: M : 1990 Age: 34 Room: Height: Weight: BSA: Pt status: Outpatient Study Date: 03/19/2025 Study Time: 02:07:00 PM BSA: Ordering: Amy Null MD Interpreting:Azucena Abebe Steward/Stewardess Third: Omkar Zuniga Indications: CKD. Summary Impression: Study [...] - Graft- outflow: - outflow 0.74m/sec 1179.9ml/min [facility] is accredited with the Intersocietal Commission for the Accreditation of Vascular Laboratories (ICAVL) Prepared and Electronically Authenticated Azucena Abebe Confirmed 03/19/2025 20:22 Procedure Note Azucena Abebe DO - 03/19/2025 [facility] [address] [place] [address] Noninvasive Vascular Lab Upper Extremity Hemodialysis Access Follow-up Evaluation Patient: Vida San Study ID: US DIALYSIS ACCE Gender: M : 1990 Age: 34 Room: Height: Weight: BSA: Pt status: Outpatient Study Date: 03/19/2025 Study Time: 02:07:00 PM BSA: Ordering: Amy Null MD Interpreting:Azucena Abebe Steward/Stewardess Third: Omkar Zuniga Indications: CKD. Summary Impression: Study [...] - Graft- proximal anastomosis: - proximal anastomosis 5.28m/zfn4108.7ml/min - Graft- proximal graft: - proximal graft 2.95m/sec 6.60cm 1703.4ml/min3.2mm - Graft- mid graft: - mid graft 1.28m/sec 10.20cm 1473.84ml/min 2.3mm - Graft- distal graft: - distal graft 0.66m/sec 8.00cm 1298.7ml/min2.9mm - Graft- outflow: - outflow 0.74m/sec 1179.9ml/min [facility] is accredited withthe Intersocietal Commission for the Accreditation of Vascular Laboratories (ICAVL) Prepared and Electronically Authenticated Azucena Abebe Confirmed 03/19/2025 20:22 us Amy Null MD ORDERABLES Final Result * INTRAVITREAL INJECTION, PHARMACOLOGIC AGENT - OU - BOTH EYES (02/22/2025 11:09 AM CDT) Narrative [facility] - 02/22/2025 11:09 AM CDT Time Out 02/22/2025. 9:34 AM. Confirmed correct patient, procedure, site, and patient consented. Anesthesia Topical anesthesia was used. Anesthetic medications included Proparacaine 0.5%, Tetracaine 0.5%, Tetravisc 0.5%. Procedure Right Eye Preparation included 0.25% betadine irrigation. A (32g) needle was used. Injection: 2 mg aflibercept 2 mg/0.05 mL Route: Intravitreal, Site: Eye, Right [facility]: 32956-160-64, Lot: 0, Waste: 0 mL This medication is being administered as part of a group. Left Eye Preparation included 0.25% betadine irrigation. A (32g) needle was used. Injection: 2 mg aflibercept 2 mg/0.05 mL Route: Intravitreal, Site: Eye, Left [facility]: [id number], Lot: 0, Waste: 0 mL This medication [...] superotemporally to the limbus Kim Servin MD [facility] PROCEDURES Final R esult Performing Organization Address [facility] Co de Phone Number [facility]# [id number] [address] [place] [address] * OCT, RETINA - OU - BOTH EYES (02/22/2025 10:19 AM CDT) Narrative [facility] OPHTHALMOLOGY ORDERS - 02/22/2025 11:08 AM CDT RIGHT EYE: Mild macular edema, Intraretinal cystoid spaces, and intraretinal hyper-reflective foci LEFT EYE:Mild macular edema, Intraretinal cystoid spaces, intraretinal hyper-reflective foci, and disruption of outer-retinal layers Kim Servin MD OPHTH TOMOGRAPHY Final Result Performing Organization Address [facility] Co de Phone Number [facility] OPHTHALMOLOGY ORDERS * (ABNORMAL) HEMOGLOBIN A1C (11/10/2024 2:22 PM ASSOCIATE PROFESSOR OF MEDICINE) HEMOGLOBIN A1C 10.5(H) <5.7 % of total [...] children. ESTIMATED AVERAGE GLUCOSE (MG/DL) 255 mg/dL [facility] ESTIMATED AVERAGE GLUCOSE (MMOL/L) 14.1 mmol/L [facility] Comment: Test Performed at: [facility] [address] [place] [address] Luz Lang MD Blood 11/10/2024 2:22 PM ASSOCIATE PROFESSOR OF MEDICINE 11/11/2024 4:34 AM ASSOCIATE PROFESSOR OF MEDICINE us Roberta Kennedy NP CHEMISTRY ORDERABLES Final Res ult [facility] [phone] [facility] [place] [address] * CT ABDOMEN PELVIS WO CONTRAST (08/07/2024 [...] 357(H) <200 mg/dL 07/14/2024 5:49 AM CDT [facility] TRIGLYCERIDE 305(H) <150 mg/dL 07/14/2024 5:49 AM CDT [facility] HDL 40 40 - 59 mg/dL 07/14/2024 5:49 AM CDT [facility] LDL CALCULATED 256(H) <100 mg/dL 07/14/2024 5:49 AM CDT [facility] NON-HDL CHOLESTEROL 317(H) <130 mg/dL 07/14/2024 5:49 AM T [facility] Blood Venipuncture / Unknown 07/14/2024 4:40 AM CDT 07/14/2024 4:59 AM CDT Narrative [facility] - 07/14/2024 5:49 AM CDT TOTAL CHOLESTEROL [...] Bashir NP CHEMISTRY ORDERABLES Final R esult [facility] CLIA # [id number] [address] [place] [address] * MICROALBUMIN/CREATININE RATIO, RANDOM UR (07/11/2015 10:53 PM CDT) MICROALBUMIN, URINE 67.8 mg/dL 07/11/2015 11:45 PM CDT [facility] CREATININE, URINE 163.8 40.0 - 278.0 mg/dL 07/11/2015 11:45 PM CDT [facility] Comment: Reference Range varies with fluid intake and diet. MICROALBUMIN/CR EAT RATIO, UR 413.9 mg/g Creatinine 07/11/2015 11:45 PM CDT [facility] Comment: Condition mg/g Creatinine Normal Males <17 Normal Females <25 Microalbuminuria Males 17-299 Microalbuminuria Females 25-299 Overt proteinuria >=300 Urine 07/11/2015 10:5 3 PM CDT 07/11/2015 10:53 PM CDT Jyoti Shirley COOK VEGETABLE URINE ORDERABLES Final Result [facility] [place] CLIA # [id number] [address] [place] [address] [facility] CLIA # [id number] [address] [place] [address] from Last 3 Months or Most Recently Relevant to Health Maintenance Insurance MEDICARE PART A AND B MEDICAID [place] RX INFOCROSSING Medicaid RX [employer]RE PLANS (INTERNAL) [facility] Internal Plans Advance Directives For more information, please contact: [phone] * Full Code (Latest Code Status on File) Date Activated Date Inactivated Comments 05/03/2025 10:15 AM * NO CPR (In Event of Cardiopulmonary Arrest) Date Activated Date Inactivated Comments 04/26/2025 8:28 [...] 6:17 PM 07/16/2024 2:00 PM Care Teams Testboard Operator Relationship Specialty Start Date End Date Duke Alarcon MD [address] [address] PCP - General Family Practice 08/10/24
--- OUTSIDE RECORDS SUMMARY | 2025-05-15 11:37 | XMS_ITS | Encounter Summary ---
Author Organization [facility], [facility] Address [address] [place] [address] Phone Care Team Providers Care Communication Engineer Name Role Phone Duke Alarcon MD Primary Care Provider [phone] Encounter Details Date Type Department Care Team (Late st Contact Info) Description 01/12/2025 TCM in Dialysis [facility] [address] [place] [address] Sixto Waller CONVERTIBLE SOFA BEDSPRING TESTER [address] [place] [address] Social History Tobacco Use Types [...] 01/12/2025 The patient was seen for a [id number]-[id number] visit as part of Transitional Care Management services. Primary cause of renal failure: E10.22 - Type 1 diabetes mellitus with diabetic chronic kidney disease Attending Fitness Coordinator: HODAN VALERA Dialysis Location: [facility] Schedule: Shift: 2 INTERACTIVE CONTACT Contact [...] 0.5 mg tablet Take as directed. Current [facility] Allergies Allergen: DAVID INHIBITORS Reaction: Cardiac [...] 97.8*F Current Dialysis Vitals BP Sit: 201/131 AP/INVENTORY AND PRICING ASSOCIATE: -- Pulse: 110 CARE COORDINATION No follow-up appointments noted. IMPRESSION & PLAN COMMENTS: ESRD requiring dialysis. Continue TTS. Hypertension. continue amlodipine, clonidine 0.2 mg 3 times a day, carvedilol 25 mg, spironolactone 25 mg and we will add hydralazine 50 mg twice a day VISIT DIAGNOSES CPT Code 56147 - High complexity, seen within 7 days [...] on filedocumented in this encounter Care Teams Communication Engineer Relationship Specialty Start Date End Date Duke Alarcon MD [address] [address] PCP - General Family Medicine 08/12/24 documented as of this encounter
--- OUTSIDE RECORDS SUMMARY | 2025-05-15 11:37 | XMS_ITS | Encounter Summary ---
Author Organization [facility] Address [address] [place] [address] Phone Care Team Providers Care Pain Management Physician Name Role Phone Duke Alarcon MD Primary Care Provider [phone] Encounter Details Date Type Department Care Team (Late st Contact Info) Description 05/13/2025 Documentation Only [facility] [address] [place] [address] Tk Mcclelland MD [address] [place] [address] Social History Tobacco Use Types [...] on filedocumented in this encounter Care Teams Pain Management Physician Relationship Specialty Start Date End Date Duke Alarcon MD [address] [place] [id number] PCP - General Family Medicine 08/12/24 documented as of this encounter
--- OUTSIDE RECORDS SUMMARY | 2025-05-15 11:37 | XMS_ITS ---
Author Name [facility], [facility] Address [address] [place] [address] Phone [phone] Organization [facility] e, NA DOCUMENT DISCLAIMER Multiple document versions may exist, please be sure you review the latest version. The information in the [facility] Continuity of Care Document represents a summary of certain health and medical information. It may not contain the complete medical history for the patient and should be independently verified. The represented time in the document is Eastern Time. 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, or end stage renal disease I13.2 Active Febr uary 2024 Nicotine dependence, cigarettes, uncomplicated F17.210 Active December [...] Dosage Route Start Date End Date Stat Acetaminophen PRN every 4 hours 650 mg Oral December 10, 2024 December 09, 2025 Active Clonidine HCl PRN-may repeat x1 systolic > [...] April 20, 2025 April 19, 2026 Active Nitroglycerin (Nitroquick) PRN-may repeat x2 chest pain 0.4 mg Sublingual January 30, 2025 January 29, 2026 Active Ondansetron HCl (Zofran) PRN-may repeat x1 nausea or emesis 4 mg Intravenous - push May 13, 2025 May 12, 2026 Active Heparin Sodium (Porcine) 1,000 Units/mL Catheter Lock Arterial Post Dialysis, Every Treatment 2000 units Arterial Red Port December 10, 2024 December 09, 2025 Discontinued Heparin Sodium (Porcine) 1,000 Units/mL Catheter Lock Venous Post Dialysis, Every Treatment 2000 units Venous Blue Port December 10, 2024 December 09, 2025 Discontinued Home Medications Medication Instructions Dosage [...] three times a day 1 tablet ORAL May 03, 2025 Active cyclobenzaprine 10 mg Take by mouth [...] day 20 SUBCUTANEOUS April 14, 2025 Active ondansetron HCl 4 mg Take by mouth every six hours as needed 1 tablet ORAL April 14, 2025 Active sevelamer carbonate 800 mg Take by mouth three times a day with meals 2 tablet ORAL April 14, 2025 Active varenicline tartrate 0.5 mg Take as directed ORAL December 24, 2024 Active hydrocodone-acetam inophen 5-325 mg Take by mouth every eight hours as needed for pain 1 tablet ORAL April 14, 2025 April 29, 2025 Discontinued lidocaine 4% once a day as needed for pain TOPICAL April 14, 2025 May 03, 2025 Discontinued VITAL SIGNS Post-Treatment Vital Signs Vital Sign Value Date / Time Blood Pressure-sitting 115/69 mmHg May 13, 2025 10:07 AM Blood Pressure-standing 122/90 mmHg May 13, 2025 10:07 AM Heart Rate 71 beats per minute May 13 10:07 AM Respiratory Rate 16 breaths per minute May 13, 2025 10:07 AM Temperature 98.2 deg. F May 13, 2025 10 :07 AM Weight Vital Sign Value Date / Time Estimated Dry Weight 88.8 kg April 24 11:59 PM Pre-Dialysis 96.40 kg May 13, 2025 10 :07 AM Post-Dialysis 91.20 kg May 13, 2025 10 :07 AM Other Other Value Date / Time Height 182.88 cm January 01, 2025 1 2:00 AM Body Mass Index 26.52 kg/m2 May 04, 2025 04 :38 PM [facility] Tuberculosis Testing TST Date [...] - 322 ng/mL High January 21, 2025 WBC (No Diff) 11.95 1000/mcL 4.80 [...] 22 - 322 ng/mL High February 18 25 Hemoglobin x 3 31.2 % 42.0 - [...] 40.0 - 75.0 % - March 18 025 Monocytes 6.0 % 3.0 - 10.0 % - March 18 Lymphocytes 21.9 % 19.0 - 48.0 % - March 18 025 Basophils 0.4 % 0.0 - 1.5 % - March 18, 2025 Eosinophil 1.7 % 0.0 - 7.0 % - March 18, 2025 Ferritin 510 ng/mL 22 - 322 ng/mL High March 18 MCHC 32.8 g/dL 30.0 - 36.0 g/dL - March 18, 2025 MCH 31.2 pg 27.0 - 31.0 pg High March 18, 025 RDW 14.2 % 11.5 - 14.5 % [...] 22 - 322 ng/mL High March 25 Hemoglobin x 3 33 % 42.0 - 54.0 % Low March Hemoglobin x 3 31.8 % 42.0 - 54.0 % Low March Neutrophils 74.7 % 40.0 - 75.0 % - April 15, 025 Lymphocytes 13.9 % 19.0 - 48.0 % Low April 15, 025 HCT 27.1 % 42.0 - 52.0 % Low April 15 25 WBC (No Diff) 9.59 1000/mcL 4.80 - [...] pg 27.0 - 31.0 pg High April 15, 025 Platelets 226 1000/mcL 130 - 400 1000/mcL [...] % 42.0 - 54.0 % Low April Hemoglobin x 3 27.6 % 42.0 - 54.0 % Low April HGB 9.2 g/dL 14.0 - 18.0 g/dL Low May 06, 2025 Metabolic/Renal Result Type Result Value Relevant Reference Range Interpre tation Date Hemoglobin A1c 8.4 % 4.8 - 5.9 % High December 15, 2024 Vitamin B12 1967 pg/mL 211 - 911 pg/mL High December Hemoglobin A1c 8.5 % 4.8 - 5.9 % High December 17, 2024 URR, Calc 72 % 65 - 80 % - February 18, 2025 BUN, Post 7 mg/dL 6 - 19 mg/dL - February 18, 2025 Chloride 98 mEq/L 96 - 108 mEq/L - February 18 Potassium 5.1 mEq/L 3.5 - 5.1 mEq/L - February 18 025 Sodium 132 mEq/L 136 - 145 mEq/L Low February 18 Bicarbonate 25 mEq/L 22 - 29 mEq/L - February 18 25 BUN/Creat Ratio 4.5 10.0 - 20.0 Low February 18, 2025 Creatinine, Serum 5.61 mg/dL 0.60 - 1.30 mg/dL High February 18, 2025 BUN 25 mg/dL 6 - 19 mg/dL High February 18, 2025 URR, Calc 67 % 65 - 80 % - March 18, 2025 Bicarbonate 22 mEq/L 22 - 29 mEq/L - March 18 025 Potassium 4.4 mEq/L 3.5 - 5.1 mEq/L [...] 22 - 29 mEq/L Low April 15, 025 Creatinine, Serum 7.28 mg/dL 0.60 - 1.30 mg/dL High April 15, 2025 BUN/Creat Ratio 6.9 10.0 - 20.0 Low April 15, 2025 BUN 50 mg/dL 6 - 19 mg/dL High April 15 URR, Calc 70 % 65 - 80 % - April 15, 2025 BUN, Post 15 mg/dL 6 - 19 mg/dL - April 15 Potassium 5.6 mEq/L 3.5 - 5.1 mEq/L High May 11, 2025 HD Adequacy Result Type Result Value Relevant Referen ce Range Interpretation Date Krt/V 0.00 No Reference Ran ge Provided - December 17, 2024 Krt/V 0.00 No Reference Ran ge Provided - December 29, 2024 Krt/V 0.00 No Reference Ran ge Provided - January 14, 2025 Krt/V 0.00 [...] pg/mL 16 - 80 pg/mL High Dec Corrected Ca x P Product 69 0 - 54 High February 18, 2025 Ca x P Product 61 0 - 54 High February 18 25 Phosphorus 7.6 mg/dL 2.6 - 4.5 mg/dL High February 18, 025 Calcium, Total 8.0 mg/dL 8.4 - 10.2 mg/dL Low February 18, 2025 Calcium, Total 8.1 mg/dL 8.4 - 10.2 mg/dL Low March 18, 2025 Magnesium 2.2 mg/dL 1.6 - 2.6 mg/dL - March 18, 2025 Corrected Ca x P Product 55 0 - 54 High March 18, 2025 Ca x P Product 49 0 - 54 - March 18, 2 025 Alkaline Phosphatase 64 U/L 40 - 129 U/L - 2024 Phosphorus 6.0 mg/dL 2.6 - 4.5 mg/dL High March 18, 2025 PTH-Intact, Plasma 161 pg/mL 16 - 80 pg/mL High Mar Phosphorus 9.5 mg/dL 2.6 - 4.5 mg/dL High April 15, 2025 Ca x P Product 76 0 - 54 High April 15, 025 Calcium, Total 8.0 mg/dL 8.4 - 10.2 mg/dL Low April 15, 2025 Corrected Ca x P Product 84 0 - 54 High April 15, 2025 Liver/Nutrition Result Type Result Value Relevant Reference Range Interpre tation Date Glucose 172 mg/dL 70 - 100 mg/dL High February 18 A/G Ratio 0.9 1.0 - 2.0 Low February 18, 2025 eNPCR 0.51 No Reference Range Provided - February 18, 2025 Globulin (Calc) 2.9 g/dL 2.0 - 4.0 g/dL - February Albumin (BCG) 2.6 g/dL 3.5 - 5.2 g/dL Low February 18, 2025 Total Protein 5.5 g/dL 6.0 - 8.5 g/dL Low February 18, 2025 Glucose 189 mg/dL 70 - 100 mg/dL High March 18, 025 Globulin (Calc) 3.1 g/dL 2.0 - 4.0 g/dL - March 18, 2025 A/G Ratio 0.9 1.0 - 2.0 Low March 18, 2025 Total Protein 5.9 g/dL 6.0 - 8.5 g/dL Low March Albumin (BCG) 2.8 g/dL 3.5 - 5.2 g/dL Low March eNPCR 0.46 No Reference Range Provided - March 18, 2025 eNPCR 0.58 No Reference Range Provided - April 01, 2025 Total Protein 5.6 g/dL 6.0 - 8.5 g/dL Low April Albumin (BCG) 3.0 g/dL 3.5 - 5.2 g/dL Low April A/G Ratio 1.2 1.0 - 2.0 - April 15, 2025 Globulin (Calc) 2.6 g/dL 2.0 - 4.0 g/dL - April 15, 2025 Glucose 237 mg/dL 70 - 100 mg/dL High April 15, 025 eNPCR 0.82 No Reference Range Provided - April 15, 2025 Immunochemistry Result Type Result Value Relevant Reference Range Interpre tation Date HCV s/co ratio 0.32 0.00 - 0.79 - December 15, 2024 HCV s/co ratio 0.19 0.00 - 0.79 - December 17, 2024 Trace Elements Result Type Result Value Relevant Reference Range Interpre tation Aluminum < 5 mcg/L 0 - 10 [...] (mL/min) Dialysate Dialyzer Dialysis Access Meds Admin May 08, 2025 Weight 94.70 kg Weight 90.70 kg 04:09:00 440 2.0 K, 2.5 Ca, 1.0 Mg, 100 Dextrose (G2251) 180nre Optifl ux Blood Pressure-sitting 193/98 mmHg Blood Pressure-sit ting 155/84 mmHg Blood Pressure-standing 190/107 mmHg Blood Pressure-st anding 102/71 mmHg Heart Rate 108 beats per minute Heart Rate 101 beats per minute Respiratory Rate 18 breaths per minute Respiratory Rate 18 breaths per minute Temperature 97.2 deg. F Temperature 98.4 deg. F May 11, 2025 Weight 98.30 kg Weight 93.60 kg 04:27:00 430 2.0 K, 2.5 Ca, 1.0 Mg, 100 Dextrose (G2251) 180nre Optiflux Hemodialysis-AV Fistula-Standard, Right Upper Arm, Brachial Artery to Cephalic Vein Access Placed on January 18, 2025 Diphenhydramine; 50mg,Intravenous - push Heparin Sodium (Porcine) 1,000 Units/mL Systemic; 7000units,Intravenous - push Iron Sucrose (Venofer); 100mg,Intravenous - push Nitroglycerin (Nitroquick); 0.4mg,Sublingual Blood Pressure-sitting 210/113 mmHg Blood Pressure-sit ting 163/81 mmHg Blood Pressure-standing 211/103 mmHg Blood Pressure-st anding 170/88 mmHg Heart Rate 105 beats per minute Heart Rate 104 beats per minute Respiratory Rate 19 breaths per minute Respiratory Rate 18 breaths per minute Temperature 98.0 deg. F Temperature 98.0 deg. F May 13, 2025 Weight 96.40 kg Weight 91.20 kg 04:53:00 460 2.0 K, 2.5 Ca, 1.0 Mg, 100 Dextrose (G2251) 180nre Optiflux Hemodialysis-AV Fistula-Standard, Right Upper Arm, Brachial Artery to Cephalic Vein Access Placed on January 18, 2025 Clonidine HCl; 0.2mg,Oral Diphenhydramine; 50mg,Intravenous - push Heparin Sodium (Porcine) 1,000 Units/mL Systemic; 7000units,Intravenous - push Iron Sucrose (Venofer); 100mg,Intravenous - push Nitroglycerin (Nitroquick); 0.4mg,Sublingual Ondansetron HCl (Zofran); 4mg,Intravenous - push Blood Pressure-sitting 188/113 mmHg Blood Pressure-sit ting 115/69 mmHg Blood Pressure-standing 197/110 mmHg Blood Pressure-st anding 122/90 mmHg Heart Rate 95 beats per minute Heart Rate 71 beats per minute Respiratory Rate 19 breaths per minute Respiratory Rate 16 breaths per minute Temperature 97.4 deg. F Temperature 98.2 deg. F
--- OUTSIDE RECORDS SUMMARY | 2025-05-15 11:37 | XMS_ITS | Encounter Summary ---
Author Organization [facility] Address [address] [place] [address] Care Team Providers Care Diamond Grader Name Role Phone Karlo Banks MD Primary Care Provider [phone] Encounter Details Date Type Department Care Team (Latest Contact Info) Description 01/24/2004 Outpatient Historical [facility] [address] [place] [id number] Holland Bell MD [address] [place] [address] ASTHMA UNSPECIFIED (Primary Dx) Social History Tobacco Use Types Packs/Day Years Used Date Smoking Tobacco: Never Assessed Sex and Gender Information Value Date Recorded Sex Assigned at Not on file 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
--- OUTSIDE RECORDS SUMMARY | 2025-05-15 11:37 | XMS_ITS | Encounter Summary ---
Author Organization [facility] Address [address] [place] [address] Phone Care Team Providers Care Float Operator Name Role Phone Duke Alarcon MD Primary Care Provider [phone] Encounter Details Date Type Department Care Team (Late st Contact Info) Description 05/11/2025 Orders Only [facility] [address] [place] [address] Angélica Ny MD [address] [place] [address] Social History Tobacco Use Types [...] Procedure Name Priority Date/Time Associated Diagnosis Comments CHEMISTRY Routine 05/11/2025 documented in this encounter Results * (ABNORMAL) [facility] (05/11/2025) Potassium 5.6(H) 3.5 - 5.1 mEq/L [facility] 05/11/2025 05/12/2025 9:1 3 AM CDT Narrative ANTHONY - 05/12/2025 Unless otherwise specified, test(s) performed at: [facility], [address] [place] [id number] [employer]: Ulises De Paz M.D. For any questions, please call customer service at FREQUENCY:OTHER Resulting Agency Comment Specimen source: Serum Angélica Ny MD LAB BLOOD ORDERABLES Final Re sult [facility] See order comments or contact performing lab Unknown, [place] documented in this encounter Visit Diagnoses Not on filedocumented in this encounter Care Teams Float Operator Relationship Specialty Start Date End Date Duke Alarcon MD [address] [phone] PCP - General Family Medicine 08/12/24 documented as of this encounter
--- OUTSIDE RECORDS SUMMARY | 2025-05-15 11:37 | XMS_ITS | Clinical Summary ---
Author Organization [facility] Facility Address [address] [address] Care Team Providers Care Crab Picker Name Role Phone Duke Alarcon MD Primary Care Provider [phone] Allergies Active Allergy Reactions Criticality Noted Date [...] hours if needed for muscle spasms 07/16/20 025 Discontinued benzonatate (TESSALON) 100 MG capsule [...] Encounters Date Type Department Care Team Description 05/13/2025 Documentation Only [facility], [facility] [address] [place] [address] Tk Mcclelland MD 05/11/2025 Orders Only [facility], [facility] [address] [place] [address] Angélica Ny MD 05/06/2025 Orders Only [facility], [facility] [address] [place] [address] Angélica Ny MD 05/04/2025 TCM in Dialysis Clinic [address] [place] [address], [facility] [address] [place] [address] Angélica Ny MD 05/04/[address] [place] [address], [facility] [address] [place] [address] Angélica Ny MD End stage renal disease; Dependence on renal dialysis 04/29/2025 Orders Only [facility], [facility] [address] [place] [address] Angélica Ny MD 04/29/2025 Documentation Only [facility], [facility] [address] [place] [address] Anne Muñoz MA 04/28/2025 Telephone [facility], [facility] [address] [place] [address] Breonna Barnett NP 04/20/2025 TCM in Dialysis Clinic [address] [place] [address], [facility] [address] [place] [address] Delia Solis NP 04/20/[address] [place] [address], [facility] [address] [place] [address] Delia Solis NP End stage renal disease; Dependence on renal dialysis 04/15/2025 Orders Only [facility], [facility] [address] [place] [address] Angélica Ny MD 04/08/2025 Orders [facility], [facility] [address] [place] [address] Angélica Ny MD 04/06/2025 Treatment [facility], [facility] [address] [place] [address] Anju Mcleod NP End stage renal disease; Dependence on renal dialysis 04/01/2025 Orders [facility], [facility] [address] [place] [address] Angélica Ny MD 04/01/2025 Treatment [facility], [facility] [address] [place] [address] Angélica Ny MD End stage renal disease; Dependence on renal dialysis; Type 1 diabetes mellitus with diabetic chronic kidney disease 03/25/2025 Orders [facility], [facility] [address] [place] [address] Angélica Ny MD 03/23/2025 [facility], [facility] [address] [place] [address] Anju Mcleod NP End stage renal disease; Dependence on renal dialysis 03/18/2025 Orders Only [facility], [facility] [address] [place] [address] Angélica Ny MD 03/16/[address] [place], [place] [address]rology [facility], [facility] [address] [place] [address] Anju Mcleod NP End stage renal disease; Dependence on renal dialysis 03/11/2025 Orders Only [facility], [facility] [address] [place] [address] Angélica Ny MD 03/11/[address] [place] [address] Nephrology [facility], [facility] [address] [place] [address] Angélica Ny MD End stage renal disease; Dependence on renal dialysis 03/04/2025 Orders [facility], [facility] [address] [place] [address] Angélica Ny MD 03/02/[address] [place] [address] [facility], [facility] [address] [place] [address] Delia Solis NP End stage renal disease; Dependence on renal dialysis; Type 1 diabetes mellitus with diabetic chronic kidney disease 02/25/2025 Orders [facility], [facility] [address] [place] [address] Angélica Ny MD 02/23/[address] [place] [address] [facility], [facility] [address] [place] [address] Anju Mcleod NP End stage renal disease; Dependence on renal dialysis 02/18/2025 Orders Only [facility], [facility] [address] [place] [address] Angélica Ny MD 02/16/[address] [place] [address] [facility], [facility] [address] [place] [address] Delia Solis NP End stage renal disease; Dependence on renal dialysis from Last 3 Months Family History Relation [...] Comments Blood Pressure 230/130 11/18/2024 12:57 PM [employer]CE [employer] PACKER Pulse 105 11/18/2024 12:57 PM [employer] P[employer] Temperature - - Respiratory Rate - - Oxygen Saturation 97% 11/18/2024 12:57 PM [employer] P[employer] Inhaled Oxygen Concentration - - Weight 114 kg (251 lb 14.4 oz) 11/18/2024 12:57 PM [employer] P[employer] Height 182.9 cm (6') 11/18/2024 12:57 PM [employer] P[employer] Body Mass Index 34.16 11/18/2024 12:57 PM [employer] P[employer]ER Plan of Treatment Health Maintenance Due Date [...] Date/Time Associated Diagnosis Comments CHEMISTRY Routine 05/11/2025 HEMATOLOGY Routine 05/06/2025 HEMATOLOGY Routine 04/29/2025 [facility] RESULTS [...] 02/18/2025 CHEMISTRY Routine 02/18/2025 HEMATOLOGY Routine 02/18/2025 from Last 3 Months Results * (ABNORMAL) [facility] (05/11/2025) Only the most recent of7 resultswithin the time period is included. Potassium 5.6(H) 3.5 - 5.1 mEq/L [facility] 05/11/2025 05/12/2025 9:1 3 AM CDT Narrative [facility] - 05/12/2025 Unless otherwise specified, test(s) performed at: [email or web address], [address] [place] [address] REGULATOR INSPECTOR: Ulises De Paz M.D. For any questions, please call customer service at FREQUENCY:OTHER Resulting Agency Comment Specimen source: Serum Angélica Ny MD LAB BLOOD ORDERABLES Final Re sult Performing Organization Address City/[facility]/ZIP Co de Phone Number [employer] See order comments or contact performing lab Unknown, [place] * (ABNORMAL) HEMATOLOGY (05/06/2025) Only the most recent of11 resultswithin the time period is included. Hemoglobin 9.2(L) 14.0 - 18.0 g/dL [facility] Hemoglobin x 3 27.6(L) 42.0 - 54.0 % [facility] 05/06/2025 05/07/2025 10: 02 AM CDT Narrative [facility] - 05/07/2025 Unless otherwise specified, test(s) performed at: [email or web address], [address] [place], [place] [id number] REGULATOR INSPECTOR: Ulises De Paz M.D. For any questions, please call customer service at FREQUENCY:OTHER Resulting Agency Comment Specimen source: Blood Angélica Ny MD LAB BLOOD ORDERABLES Final Re sult Performing Organization Address City/[facility]/ZIP Co de Phone Number [employer] See order comments or contact performing lab Unknown, [place] * HD KINETICS (04/15/2025) Only the most recent of4 resultswithin the time period is included. % Urea Reduction 70 65 - 80 % [facility] 04/15/2025 04/17/2025 10: 47 AM CDT Narrative Resulting Agency Comment Specimen source: Plasma Angélica Ny MD LAB BLOOD ORDERABLES Final Re sult [employer] See order comments or contact performing lab Unknown, [place] * POST CHEMISTRY (04/15/2025) Only the most recent of4 resultswithin the time period is included. Pathologist [facility] BUN Post Dialysis 15 6 - 19 mg/dL [facility] 04/15/2025 04/17/2025 10: 47 AM CDT Narrative [facility] - 04/17/2025 Unless otherwise specified, test(s) performed at: [email or web address], [address] [place] [address] REGULATOR INSPECTOR: Ulises De Paz M.D. For any questions, please call customer service at FREQUENCY:MONTHLY Resulting Agency Comment Specimen source: Plasma Angélica Ny MD LAB BLOOD ORDERABLES Final Re sult Performing Organization Address [facility] Co de Phone Number [employer] See order comments or contact performing lab Unknown, [place] * [facility] Results (04/15/2025) Only the most recent of4 resultswithin the time period is included. Pathologist [facility] spKt/V Gotch 1.46 [facility] eKt/V Gotch 1.28 [facility] e Center eNPCR 0.82 [facility] eKt/V ([place]) 1.28 [facility] spKt/V (Daugirdas II) 1.46 [facility] PCR 75.14 [facility] Center eKdrt/V 1.28 [facility] nPCR_HD 0.90 [facility] WSTDKT/V 1.6 [facility] 04/15/2025 04/15/2025 [facility] [place] LAB BLOOD ORDERABLES Final Result [facility] Contact Performing lab Unknown, [place] * (ABNORMAL) SPECIAL CHEMISTRY (03/18/2025) Pathologist [facility] Hemoglobin A1C 8.3(H) 4.8 - 5.9 % [facility] 03/18/2025 03/19/2025 9:5 6 AM CDT Narrative [facility] - 03/19/2025 Unless otherwise specified, test(s) performed at: [email or web address], [address] [place] [id number] REGULATOR INSPECTOR: Ulises De Paz M.D. For any questions, please call customer service at FREQUENCY:MONTHLY Resulting Agency Comment Specimen source: Blood us Angélica Ny MD LAB BLOOD BANK TEST ORDERABLE S Final Result [facility] [employer] See order comments or contact performing lab Unknown, [place] from Last 3 Months Insurance Medicare Medicaid [place] ([id number]) Care Teams Crab Picker Relationship Specialty Start Date End Date Duke Alarcon MD [address] [facility] [address] [place] [address] PCP - General Family Medicine 08/12/24
--- OUTSIDE RECORDS SUMMARY | 2025-05-15 11:37 | XMS_ITS | Encounter Summary ---
Author Organization [facility] Address [address] [place] [address] Care Team Providers Care Service Member Name Role Phone Karlo Banks MD Primary Care Provider [phone] Encounter Details Date Type Department Care Team (Latest Contact Info) Description 06/04/2005 Outpatient Historical [facility] [address] [place] [address] Holland Bell MD [address] [place] [address] MED EXAM NEC-ADMIN PURP (Primary Dx) Social History Tobacco Use Types Packs/Day Years Used Date Smoking Tobacco: Never Assessed Sex and Gender Information Value Date Recorded Sex Assigned at Not on file 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
--- OUTSIDE RECORDS SUMMARY | 2025-05-15 11:37 | XMS_ITS | Encounter Summary ---
Author Organization [facility], [facility] Address [address] [place] [address] Phone Care Team Providers Care Flame Annealing Machine Setter Name Role Phone Duke Alarcon MD Primary Care Provider [phone] Encounter Details Date Type Department Care Team (Late st Contact Info) Description 04/20/2025 [facility] [address] [place] [address] Jacki Gill NP [address] [place] [address] Social History Tobacco Use Types [...] 04/20/2025 The patient was seen for a xetj-ar-qvqy visit as part of Transitional Care Management services. Primary cause of renal failure: E10.22 - Type 1 diabetes mellitus with diabetic chronic kidney disease Attending Switchboard Wirer: HODAN VALERA Dialysis Location: [facility] D[facility] Schedule: Shift: 2 HOSPITALIZATION [...] with patient, and discussed maintaining compliance Current [facility] Out[facility] Medications Abilify 5 mg tablet Take [...] patient or caregiver VISIT DIAGNOSES CPT Code 68546 - High complexity, seen 8-14 days post discharge or moderate complexity, seen [id number] days of discharge. I16.0 Hypertensive urgency COMMENTS: [...] on filedocumented in this encounter Care Teams Flame Annealing Machine Setter Relationship Specialty Start Date End Date Duke Alarcon MD [address] [address] PCP - General Family Medicine 08/12/24 documented as of this encounter
--- OUTSIDE RECORDS SUMMARY | 2025-05-15 11:37 | XMS_ITS | Encounter Summary ---
Author Organization [facility], [facility] Address [address] [place] [address] Phone Care Team Providers Care Railroad Brake Operator Name Role Phone Duke Alarcon MD Primary Care Provider [phone] Encounter Details Date Type Department Care Team (Late st Contact Info) Description 05/04/2025 [facility] [address] [place] [address] Angélica Ny MD [address] [place] [address] Social History Tobacco Use Types [...] as of this encounter Progress Notes * Angélica Ny MD - 05/04/2025 12:00 AM CDT Patient: Hunter San, 1990, 34y, M Dialysis Location: [facility] Attending Multiple Coil Winder: Angélica Ny Service Date: 05/04/2025 Service Provider: Angélica Ny MD I met face to face with the patient today. INITIAL PATIENT CONTACT Contact with the patient or caregiver was made or attempted within 2 business days of discharge - details in the medical record HOSPITALIZATION SUMMARY Patient has transitioned in the past 30 days from: Hospital. Setting patient transitioned to: Home. Admission Date: 04/26/2025 Discharge Date: 04/27/2025 Reason for admission: HTN emergency Discharge diagnosis: HTN emergency LISET Discharge information reviewed: No outstanding diagnostic tests and treatments Comments: He is to have CPAP fit. MEDICATIONS Discharge med list reviewed and reconciled - no changes. Active treatment medication orders reviewed - no changes. PHYSICAL EXAM Exam Performed. Vital Signs Reviewed. CV - Blood pressure noted. EXT - No edema. EXT - No ulcers. AVF/AVG Positive thrill/bruit. DIALYSIS PRESCRIPTION Comments: No changes to EDW but will keep challenging UF with treatments. Ed to fluid restrict documented in this encounter Plan of Treatment Not on file documented as of this encounter Visit Diagnoses Not on filedocumented in this encounter Care Teams Railroad Brake Operator Relationship Specialty Start Date End Date Duke Alarcon MD [address] [facility] [address] [place] [address] PCP - General Family Medicine 08/12/24 documented as of this encounter
--- OUTSIDE RECORDS SUMMARY | 2025-05-15 11:37 | XMS_ITS | Encounter Summary ---
Author Organization [facility] Address [address] [place] [address] Care Team Providers Care Spinning Frame Changer Name Role Phone Karlo Banks MD Primary Care Provider [phone] Encounter Details Date Type Department Care Team (Latest Contact Info) Description 02/07/2004 Outpatient Historical [facility] [address] [place] [address] Holland Bell MD [address] [place] [address] ASTHMA UNSPECIFIED (Primary Dx) Social History Tobacco Use Types Packs/Day Years Used Date Smoking Tobacco: Never Assessed Sex and Gender Information Value Date Recorded Sex Assigned at Not on file 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
--- NOTE | 2025-05-15 11:40 | XRR_ITS ---
PROCEDURE INFORMATION: Exam: XR Chest Exam date and time: 05/15/2025 11:54 AM Age: 34 years old Clinical indication: Pain; Chest pressure; Additional info: Chest pain; HTN @ dialysis treatment today TECHNIQUE: Imaging protocol: Radiologic exam of the chest. Views: 1 view. COMPARISON: CR XR chest 1V portable [id number] 12/16/2024 6:00 PM FINDINGS: Lungs: Retrocardiac atelectasis. No consolidation. Pleural spaces: Unremarkable. No pleural effusion. No pneumothorax. Heart/Mediastinum: The heart is enlarged. Bones/joints: Chronic fracture deformity of the right clavicle. XR/XR chest 1V portable [id number] IMPRESSION: No acute cardiopulmonary process.
--- NOTE | 2025-05-15 11:55 | W.ED.CHESTPA ---
HPI - Chest Pain General: Chief Complaint: Chest Pain Stated Complaint: chest pain Time Seen by Provider: 05/15/25 11:40 Source: patient and EMS Mode of arrival: EMS Limitations: no limitations History of Present Illness: 34-year-old male history of end-stage renal disease gets dialysis Saturday states he has chronic chest pain as well states he typically has pains daily he is having pain today while at the dialysis clinic and sent him here. He did not receive dialysis today states pain sharp in nature goes down his left arm he denies any worse improved factors Associated symptoms: Deny abdominal pain, dyspnea, fever(s), nausea or vomiting Related Data Home Medications ?Medication ?Instructions ?Recorded ?Confirmed amlodipine 10 mg tablet 10 mg PO QAM 09/16/23 05/04/25 blood-glucose sensor ([employer] G7 #1 ea 10/21/23 05/04/25 Sensor device) amitriptyline 50 mg tablet 50 mg PO BEDTIME 11/06/24 05/04/25 bupropion HCl 150 mg 24 hr tablet, 150 mg PO DAILY 11/06/24 05/04/25 extended release carvedilol 25 mg tablet 25 mg PO Q12H 11/06/24 05/04/25 epinephrine 0.3 mg/0.3 mL See Rx Instructions .Route .COMPLEX 11/06/24 05/04/25 injection, auto-injector aripiprazole 5 mg tablet 5 mg PO DAILY 04/12/25 05/04/25 aspirin 81 mg tablet,delayed 81 mg PO DAILY 04/12/25 05/04/25 release atorvastatin 80 mg tablet 80 mg PO DAILY 04/12/25 05/04/25 benzonatate 100 mg capsule 100 mg PO TID PRN Cough 04/12/25 05/04/25 gabapentin 100 mg capsule 100 mg PO TID 04/12/25 05/04/25 ondansetron 4 mg disintegrating 4 mg PO Q6H PRN nausea/emesis 04/12/25 05/04/25 tablet Previous Rx's ?Medication ?Instructions ?Recorded Intraoperative Neuromonitoring #1 ea 08/22/22 insulin syringe-needle U-100 1 mL #100 ea 06/27/23 31 gauge x 5/16 (BD Insulin Syringe Ultra-Fine) pen needle, diabetic 32 gauge x #100 ea 09/14/23 1/4 (BD Ultra-Fine Micro Pen Needle) blood sugar diagnostic (True #100 ea 10/04/23 Metrix Glucose Test Strip) blood-glucose meter (True Metrix #1 ea 10/04/23 Air Glucose Meter kit) lancets 31 gauge #100 ea 10/04/23 bumetanide 1 mg tablet 1 mg PO DAILY #30 tabs 04/14/25 cyclobenzaprine 10 mg tablet 10 mg PO TID PRN Muscle Spasms #30 04/14/25 tabs hydralazine 100 mg tablet 100 mg PO BID #60 tabs 04/14/25 insulin glargine 100 unit/mL (3 20 unit (0.2 mL) SUBCUT BID #3 mL 04/14/25 mL) subcutaneous pen (Lantus Solostar U-100 Insulin) insulin lispro 100 unit/mL See Rx Instructions .Route 04/14/25 subcutaneous pen (Humalog KwikPen .COMPLEX #15 mL (U-100) Insulin) Allergies Allergy/AdvReac Type Severity Reaction Status Date / Time bee venom protein (honey bee) Allergy Unknown Verified 05/15/25 11:37 lisinopril Allergy Unknown Verified 05/15/25 11:37 Review of Systems Const: Denies: fever(s), chills, body aches or change in appetite ENMT: Denies: throat pain or dental pain Card: Reports: chest pain Resp: Denies: dyspnea GI: Denies: abdominal pain, nausea, vomiting or diarrhea Musc: Denies: neck pain or back pain Skin/Breast: Denies: rash Neuro: Denies: headache(s) PFSH ED PFSH: Medical History End stage renal disease on dialysis due to type 1 diabetes mellitus Chronic left-sided low back pain with left-sided sciatica Type 1 diabetes End stage renal disease on dialysis Opiate dependence Other stimulant abuse, uncomplicated Waking at night short of breath Snoring Hypersomnia Insomnia Noncompliance w/medication treatment due to intermit use of medication Schizophrenia Methamphetamine abuse Uncontrolled hypertension Family History Other CAD (coronary artery disease) Hypertension Stroke Social History Smoking and tobacco/nicotine status: current every day tobacco/nicotine user Alcohol intake: former Substance/Drug Use: former Date of last use: Amphetamines more than 62 days ago Caregiver/support person: Yes Lives independently: Yes Household members: other Current occupation: [employer] Physical Exam Const: COMMON NORMALS: no acute distress, patient oriented x3 and healthy appearing HENMT: COMMON NORMALS: normocephalic and atraumatic HEAD & SCALP: normocephalic and atraumatic Eye: COMMON NORMALS: conjunctivae normal CONJUNCTIVA: Yes conjunctivae normal Neck/C-Spine: COMMON NORMALS: full ROM and supple Chest: COMMONS NORMALS: normal inspection of the chest Resp: COMMON NORMALS: normal respiratory effort, No retractions, No use of accessory muscles and clear to auscultation bilaterally AUSCULTATION: clear to auscultation bilaterally Cardio: COMMON NORMALS: regular rate, regular rhythm and No murmurs present (Cardio) RATE: regular rate RHYTHM: regular rhythm GI: COMMON NORMALS: Normal to inspection, nondistended, normoactive bowel sounds present, Soft to palpation, non-tender and no masses PALPATION: Yes Soft to palpation Extremity: COMMON NORMALS: normal to inspection and full ROM Neuro: COMMON NORMALS: patient oriented x3, moves all extremities and no focal motor deficits Psych: COMMON NORMALS: mental status grossly normal, Normal thought process present and cooperative THOUGHT PROCESS: Normal thought process present Skin: COMMON NORMALS: no rashes or lesions noted and no wounds GENERAL SKIN EXAM: no rashes or lesions noted Course Vital Signs: Vital signs: Vital Signs Temperature 98.5 F 05/15/25 11:30 Pulse Rate 80 05/15/25 13:41 Respiratory Rate 16 05/15/25 13:41 Blood Pressure 168/90 05/15/25 13:41 Pulse Oximetry 99 05/15/25 13:41 Oxygen Delivery Me thod Room Air 05/15/25 13:41 MDM - Chest Pain Medical Decision Making Patient presents here with chest pains atypical in nature delta troponin is negative no signs of ACS patient has no signs of dissection or pulm embolism he feels improved here he stable for discharge follow-up with PCP return if worsening. Medical Records I reviewed the patient's medical records. Lab Data I reviewed the patient's lab results. 05/15/25 11:49 05/15/25 11:49 Radiology Impressions Chest X-Ray 05/15/25 11:40 IMPRESSION: No acute cardiopulmonary process. Laboratory Results WBC 10.03 10^3/uL (3.29-11.43) 05/15/25 11:49 RBC 2.98 10^6/uL (3.85-5.65) L 05/15/25 11:49 Hgb 9.60 g/dL (11.27-16.99) L 05/15/25 11:49 Hct 28.2 % (37-53) L 05/15/25 11:49 MCV 94.6 fl (82-101) 05/15/25 11:49 MCH 32.2 pg (27-33) 05/15/25 11:49 MCHC 34.0 g/dL (30-55) 05/15/25 11:49 RDW 14.6 % (12.1-15.1) 05/15/25 11:49 Plt Count 260 10^3/cmm (157-399) 05/15/25 11:49 MPV 10.0 fL (7.4-10.4) 05/15/25 11:49 Neut % (Auto) 74.9 % 05/15/25 11:49 Lymph % (Auto) 15.5 % 05/15/25 11:49 Carbon % (Auto) 7.3 % 05/15/25 11:49 Eos % (Auto) 1.1 % 05/15/25 11:49 Baso % (Auto) 0.8 % 05/15/25 11:49 Neut # (Auto) 7.52 10^3/uL (1.8-7.7) 05/15/25 11:49 Lymph # (Auto) 1.6 10^3/uL (0.8-4.8) 05/15/25 11:49 Carbon # (Auto) 0.7 10^3/uL (0.2-0.9) 05/15/25 11:49 Eos # (Auto) 0.1 10^3/uL (0.0-0.8) 05/15/25 11:49 Baso # (Auto) 0.1 10^3/uL (0.0-0.1) 05/15/25 11:49 Nucleated RBC % (auto) 0 % 05/15/25 11:49 Nucleated RBCs # 0.0 /100WBC 05/15/25 11:49 PT 13.70 SECONDS (12.1-14.9) 05/15/25 11:49 INR 0.98 (0.8-1.2) 05/15/25 11:49 Sodium 131 mmol/L (136-145) L 05/15/25 11:49 Potassium 5.1 mmol/L (3.5-5.1) 05/15/25 11:49 Chloride 87 mmol/L (98-107) L 05/15/25 11:49 Carbon Dioxide 30 mmol/L (22-29) H 05/15/25 11:49 Anion Gap 19.1 (5-19) H 05/15/25 11:49 BUN 26 mg/dL (6-20) H 05/15/25 11:49 Creatinine 6.7 mg/dL (0.7-1.2) H* 05/15/25 11:49 GFR Calculation 9.5 mL/min (90-130) L 05/15/25 11:49 Glucose 225 mg/dL (65-115) H 05/15/25 11:49 Calculated Osmolality 284 mOsm/kg (285-295) L 05/15/25 11:49 Calcium 8.9 mg/dL (8.5-10.5) 05/15/25 11:49 Total Bilirubin 0.3 mg/dL (0.15-1.2) 05/15/25 11:49 AST 12 U/L (0-40) 05/15/25 11:49 ALT 7 U/L (0-41) 05/15/25 11:49 Alkaline Phosphatase 90 U/L (40-130) 05/15/25 11:49 Troponin T Baseline 270 ng/L (0-15) H* 05/15/25 11:49 Troponin T 120 Minute 254.6 ng/L (0-15) H 05/15/25 13:34 Delta Troponin T -15.4 ABS# (0-10) L 05/15/25 13:34 Total Protein 7.1 g/dL (6.6-8.7) 05/15/25 11:49 Albumin 3.4 g/dL (3.5-5.2) L 05/15/25 11:49 Globulin 3.7 g/dL (1.3-4.6) 05/15/25 11:49 Lipase 25 U/L (13-60) 05/15/25 11:49 All radiology interpretation(s) finalized by discharge EKG Data EKG 1: I personally reviewed and interpreted this EKG as follows: EKG interpretation date: 05/15/25 EKG interpretation time: 11:29 Interpretation: nsr hr [address] elevation qrs 94 qtc 416 Discharge Plan Discharge Patient Disposition: Home Clinical Impression: Chest pain Condition: Stable Prescriptions: No Action (DME) blood-glucose meter [True Metrix Air Glucose Meter] Kit See Rx Instructions .Route Qty: 1 0RF Rx Instructions: As directed (DME) True Metrix Glucose Test Strip Strip See Rx Instructions .Route Qty: 100 0RF Rx Instructions: As directed (DME) lancets 31 gauge misc See Rx Instructions .Route Qty: 100 0RF Rx Instructions: As directed (DME) Dexcom G7 Sensor Device See Rx Instructions .ROUTE .MEDSUPPLY Qty: 1 Rx Instructions: As directed (DME) Intraoperative Neuromonitoring See Rx Instructions .Route .MEDSUPPLY Qty: 1 0RF Rx Instructions: As directed (DME) pen needle, diabetic [BD Ultra-Fine Micro Pen Needle] 32 gauge x 1/4 needle See Rx Instructions .ROUTE .MEDSUPPLY Qty: 100 3RF Rx Instructions: As directed (DME) insulin syringe-needle U-100 [BD Insulin Syringe Ultra-Fine] 1 mL 31 gauge x 5/16 syringe See Rx Instructions .ROUTE .COMPLEX Qty: 100 1RF Dose Instruction: DIRECTED Rx Instructions: DIRECTED amlodipine 10 mg tablet 10 mg PO QAM carvedilol 25 mg Tablet 25 mg PO Q12H Rx Instructions: must administer with a meal/food amitriptyline 50 mg tablet 50 mg PO BEDTIME epinephrine 0.3 mg/0.3 mL auto-injector See Rx Instructions .ROUTE .COMPLEX Rx Instructions: INJECT 0.3 INTRAMUSCULARLY ONCE DAILY NEEDED FOR ANAPHYLAXIS bupropion HCl 150 mg tablet extended release 24 hr 150 mg PO DAILY atorvastatin 80 mg tablet 80 mg PO DAILY aspirin 81 mg tablet,delayed release (DR/EC) 81 mg PO DAILY benzonatate 100 mg capsule 100 mg PO TID PRN (Reason: Cough) gabapentin 100 mg capsule 100 mg PO TID ondansetron 4 mg tablet,disintegrating 4 mg PO Q6H PRN (Reason: nausea/emesis) aripiprazole 5 mg tablet 5 mg PO DAILY cyclobenzaprine 10 mg Tablet 10 mg PO TID PRN (Reason: Muscle Spasms) Qty: 30 0RF hydralazine 100 mg tablet 100 mg PO BID Qty: 60 0RF insulin glargine [Lantus Solostar U-100 Insulin] 100 unit/mL (3 mL) insulin pen 20 unit SUBCUT BID Qty: 3 0RF bumetanide 1 mg tablet 1 mg PO DAILY Qty: 30 0RF insulin lispro [Humalog KwikPen Insulin] 100 unit/mL insulin pen See Rx Instructions .ROUTE .COMPLEX Qty: 15 0RF Rx Instructions: MEDIUM dose sliding scale. Less than/equal to 70 treat hypoglycemia per nursing protocol. 71-119 No additional insulin. 120-150 2 units. 151-200 4 units. 201-250 6 units. 251-300 8 units. 301-350 10 units. Greater than 351 12 units. Discharge Orders: Discharge ED (Routine); Ordered 05/15/25 Ordered By: Nedra Camacho Referrals: [facility] [Primary Care Provider, Family Practice] Discharge Diet: Advance as tolerated Discharge Activity: Resume usual activity Patient Instructions: Chest Pain (ED) Print Language: Bhutanese Coding Level of Care Code ED Hydrometeorologist for Bessie Gaxiola
[2025-05-15] MEDS: morphine 4 mg/mL SDV 1 mL IVP (11:57)
[2025-05-15] MEDS: ondansetron 2 mg/ML SDV 2 mL 4 MG IVP (11:58)
[2025-05-15 11:59] LABS: Hematocrit 28.2 % (37-53); Hemoglobin 9.60 g/dL (11.27-16.99); Mean Corpuscular HGB Conc 34.0 g/dL (30-55); Mean Corpuscular Hemoglobin 32.2 pg (27-33); Mean Corpuscular Volume 94.6 fl (82-101); Nucleated Red Blood Cells % 0 %; Platelet Count 260 10^3/cmm (157-399); Red Blood Count 2.98 10^6/uL (3.85-5.65); White Blood Count 10.03 10^3/uL (3.29-11.43)
[2025-05-15 12:02] VITALS: BP 202/114; PULSE 91; RESP 16; O2SAT 100
[2025-05-15 12:13] LABS: INR 0.98 (0.8-1.2); Prothrombin Time 13.70 SECONDS (12.1-14.9)
[2025-05-15 12:24] LABS: Alanine Aminotransferase 7 U/L (0-41); Albumin Level 3.4 g/dL (3.5-5.2); Alkaline Phosphatase 90 U/L (40-130); Anion Gap 19.1 (5-19); Aspartate Amino Transferase 12 U/L (0-40); Blood Urea Nitrogen 26 mg/dL (6-20); Calcium 8.9 mg/dL (8.5-10.5); Carbon Dioxide 30 mmol/L (22-29); Chloride 87 mmol/L (98-107); Globulin 3.7 g/dL (1.3-4.6); Glucose 225 mg/dL (65-115); Lipase 25 U/L (13-60); Osmolality Calculated 284 mOsm/kg (285-295); Potassium 5.1 mmol/L (3.5-5.1); Sodium 131 mmol/L (136-145); Total Protein 7.1 g/dL (6.6-8.7)
[2025-05-15 12:28] LABS: Creatinine Clr Calc Pharmacy 18.2603; Troponin(5th) Baseline 270 ng/L (0-15)
[2025-05-15] MEDS: hyDRALAzine 20 mg/mL INJ 1 mL 10 MG IVP (12:41)
[2025-05-15] MEDS: HYDROmorphone 0.5 MG/0.5 ML INJ 1 MG IVP (12:41)
[2025-05-15 12:42] VITALS: BP 190/108; PULSE 89; RESP 16; O2SAT 100
--- NOTE | 2025-05-15 13:40 | ECG_ITS ---
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
[2025-05-15 13:41] VITALS: BP 168/90; PULSE 80; RESP 16; O2SAT 99
[2025-05-15 14:19] LABS: Troponin 5 2HR 254.6 ng/L (0-15); Troponin 5 2HR Delta -15.4 ABS# (0-10)
[2025-05-15 14:25] VITALS: BP 201/108; PULSE 88; RESP 16; O2SAT 100
== END 2025-05-15 14:34 | disposition home or self-care (01) ==
PROVIDERS: Emergency Provider Emergency Medicine; PCP Family Medicine
DX: R07.9 Chest pain, unspecified (principal); Z79.4 Long term (current) use of insulin; Z79.82 Long term (current) use of aspirin; Z72.0 Tobacco use; E10.22 Type 1 diabetes mellitus with diabetic chronic kidney disease; N18.6 End stage renal disease; Z99.2 Dependence on renal dialysis
CPT/HCPCS: 36415; 71045; 80053; 83690; 84484; 85025; 85610; 93005; 96374; 96375; 99285; J0360; J1171; J2270; J2405; J9999

== ENCOUNTER 2025-05-31 19:57 | Outpatient (CLI) | payer MEDICARE, MEDICAID, SELFPAY | END 2025-05-31 19:58 | disposition home or self-care (01) | LOC: SLEEP 19:58 | PROVIDERS: PCP Family Medicine; Visit Provider Internal Medicine Pulmonary Disease | DX: G47.33 Obstructive sleep apnea (adult) (pediatric) (principal) | CPT/HCPCS: 95811 ==

== ENCOUNTER 2025-06-15 09:53 | Inpatient (IN) | payer MEDICARE, MEDICAID, SELFPAY ==
--- OUTSIDE RECORDS SUMMARY | 2025-06-07 19:00 | XMS_ITS ---
Author Name Anju Mcleod Address [address] [place] [id number] Phone [phone] Organization [facility], NA DOCUMENT DISCLAIMER Multiple document versions may exist, please be sure you review the latest version. The information in the [facility] Progress Note Document represents a providers documented clinical note containing certain health and medical information. It may not contain the complete medical history for the patient and should be independently verified. The represented time in the document is Eastern Time PROVIDER ROUNDING NOTE BASIC Patient:?Hunter?Jaswinder,?1990,?34y,?M [place]ialysis?[place] Attending?[employer] Home [employer] Consultant:?Angélica?Anant Service?Date:?06/08/2025 Service?Provider:?Anju?Harsha,?FORENSIC PSYCHOLOGIST I?met?face?to?face?with?the?patient?today. OVERVIEW The?patient?presented?with?ESRD?on?dialysis Primary?cause?of?renal?failure:?Type?1?diabetes?mellitus&#16 0;with?diabetic?chronic?kidney?disease Comments:?VSS,?seen?on?HD?machine,?denies?needs?for?me today Type?I?diabetic???With?nephrotic?syndrome,?with?hyperte nsion,?HFrEF,??cardiomyopathy?with?hx?of??methamphetamine&#1 60;and?EtOH?use?now?sober.??Admitted?for?an?incidentall y?12/08/24?with?acute?coronary?syndrome. Prior?to?hospital?admission?serum?creatinine?over?the?last&# 160;year?had?gone?from?1.8?up?to?a?baseline?of?5.2 ?with?ongoing?uncontrolled?diabetes. He?is?still?interested?in?HHD. He?has?had?CPAP?fitting. LAST?HOSPITALIZATION Discharge?Diagnosis:?I16.1?Hypertensive?emergency I21.4?Non-ST?elevation?(NSTEMI)?myocardial?infarction Admission?Date?05/16/25 Discharge?Date?05/22/25 Comments:??12/08/24?through?12/10/24?for?NSTEMI DIALYSIS?PRESCRIPTION ??IHD?3x?Week?Start?date:?06/03/25 ??Dialyzer:?180NRe?Optiflux ??BFR:?450 ??DFR:?Autoflow?2 ??Potassium:?2.0 ??Sodium:?138 ??EDW:?101.2 ??Duration:?4:00 ??Calcium:?2.5 ??Bicarb:?34 ??Rx?updated?on:?06/02/2025 TREATMENT?ASSESSMENT Comments:?Recently?changed?to?clonidine?patch. BP?Stand?Pre ??06/05/2025:?168/91 ??06/03/2025:?102/60 ??06/01/2025:?186/97 BP?Sit?Pre ??06/05/2025:?174/119 ??06/03/2025:?125/68 ??06/01/2025:?186/105 BP?Stand?Post ??06/05/2025:?195/103 ??06/03/2025:?183/89 ??06/01/2025:?193/90 BP?Sit?Post ??06/05/2025:?193/103 ??06/03/2025:?179/90 ??06/01/2025:?197/94 Tx?Duration ??06/05/2025:?4:35 ??06/03/2025:?4:03 ??06/01/2025:?3:59 Missed?Treatments 0?-?last?30?days 0?-?last?60?days FLUID?ASSESSMENT Comments:?Challenging?UF. Ed?on?fluid?gains. Fluid?status?acceptable.?Interdialytic?weight?gain?acceptable.?No ?changes?indicated.? EDW?(kg) ??06/05/2025:?101.2 ??06/03/2025:?101.2 ??06/01/2025:?101.2 Weight?Pre?(kg) ??06/05/2025:?105.9 ??06/03/2025:?105.5 ??06/01/2025:?104.1 Weight?Post?(kg) ??06/05/2025:?101.5 ??06/03/2025:?101.9 ??06/01/2025:?101.8 PWV?(kg) ??06/05/2025:?0.3 ??06/03/2025:?0.7 ??06/01/2025:?0.6 UF?Rate?(mL/kg/hr) ??06/05/2025:?9.5 ??06/03/2025:?8.7 ??06/01/2025:?5.7 ADEQUACY?ASSESSMENT Comments:?Stable spKt/V,?URR ??05/29/2025:?1.26,?66.0 ??04/15/2025:?1.46,?70.0 ??04/01/2025:?1.37,?69.0 ACCESS?ASSESSMENT ??Access?Type:?AVFistula ??Access?SubType:?Standard ??Access?Status:?Active?(In?Use)?-?04/24/2025 ??Access?Location:?Right?Upper?Arm ??Created:?01/18/2025 Flow ??05/11/2025:?1149 Vascular?access?reviewed.?Current?access?is?permanent?and?functioning?well. ANEMIA?ASSESSMENT Comments:?On?IV?iron?and?NERISSA?protocol. Had?a?recent?hospital?stay.?Missed?Micera?dosing. He?also?had?complaints?of?emesis?of?coffee?ground?with& #160;heart?burn.?Ed?to?go?to?the?ER?to?be?seen. No?heparin?used?on?HD. HGB,?TSAT ??06/03/2025:?7.0,?23.0 ??06/01/2025:?7.9,?20.0 ??05/27/2025:?7.3,?- ?? Ferritin ??06/03/2025:?3018.0 ??06/01/2025:?667.0 ??03/25/2025:?625.0 Mircera,?IVP?(mcg) ??06/01/2025:?50 ??05/04/2025:?50 ??04/20/2025:?50 Iron?Sucrose?(Venofer)?(mg) ??06/01/2025:?50 ??05/25/2025:?50 ??05/13/2025:?100 BMM?ASSESSMENT Comments:?Ed?on?low?phos?diet?and?to?take?phos?binders. PTH,?Intact ??03/18/2025:?161.0 ??12/17/2024:?198.0 ??12/15/2024:?148.0 ?? Calcium,?Phosphorus ??06/01/2025:?8.7,?6.7 ??05/27/2025:?7.8,?- ??04/15/2025:?8.0,?9.5 NUTRITION?ASSESSMENT Comments:?Ongoing?education?about?potassium?restriction?in?foods. If?potassium?persistently?>?5.5?will?look?to?add?Veltessa. Potassium,?Albumin ??06/01/2025:?5.5,?3.6 ??05/27/2025:?5.5,?3.5 ??05/11/2025:?5.6,?- ?? eNPCR ??05/29/2025:?0.74 ??04/15/2025:?0.82 ??04/01/2025:?0.58 DIAGNOSIS Chief?Complaint:?N18.6?End?stage?renal?disease Patient?data?updated?06/08/2025?at?2:25?PM Signed?By:?Harsha,?Anju,?FORENSIC PSYCHOLOGIST??on?06/08/2025?2:27:27?PM END OF DOCUMENT
--- OUTSIDE RECORDS SUMMARY | 2025-06-11 10:13 | XMS_ITS | Encounter Summary ---
Author Organization [facility] Address [address] [place] [address] Care Team Providers Care Guide Name Role Phone Duke Alarcon MD Primary Care Provider [phone] [phone] Reason for Referral * Cardiology Testing (Routine) - Closed Specialty Diagnoses / Procedures Referred By Elizabet forbes Referred To Contact Respiratory Therapy Diagnoses Palpitations Procedures HOLTER MONITOR Duke Alarcon MD [address] [address] Phone: tel: fax: [facility] Therapy [address] [address] Phone: tel: fax: Referral ID Status Reason Start Date Expiration Date Visits Re quested Visits Authorized [id number] Closed 05/31/2025 07/01/2026 1 1 Reason for Visit * Cardiology Testing (Routine) - Closed Specialty Diagnoses / Procedures Referred By Elizabet forbes Referred To Contact Respiratory Therapy Diagnoses Palpitations Procedures HOLTER MONITOR Duke Alarcon MD [address] [address] Phone: tel: fax: [facility] [address] [address] Phone: tel: fax: Referral ID Status Reason Start Date Expiration Date Visits Re quested Visits Authorized [id number] Closed 05/31/2025 07/01/2026 1 1 Encounter Details Date Type Department Care Team (Latest Contact Info) Description 06/11/2025 10:13 AM CDT - 06/11/2025 11:59 PM CDT Hospital Encounter [facility] Respiratory Therapy Services [place] [address] [facility] [address] [place] [address] Duke Alarcon MD [address] [place] [address] Discharge Disposition: Home or Self Care Social History Tobacco Use Types Packs/Day Years Used Date Smoking Tobacco: Every Day Cigarettes Passive Smoke Exposure: Current Smokeless Tobacco: Never Alcohol Use Standard Drinks/Week Comments No 0 (1 standard drink = 0.6 oz pur e alcohol) Feeling Safe Answer Date Recorded Are you in a relationship wi th someone who hurts you emotionally and/or physically? 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 Replaces tramadol Max Daily Amount: 15 mg 20 Tablet 5 hydrALAZINE (APRESOLINE) 100 mg Tablet tablet Take 1 Tablet (100 mg) by mouth every 8 hours. 300 Tablet 3 5 cpap biomedical equipment specialist CPAP auto-titrate 5-10 cwp with heated humidifier. Length of need:99 months; mask with headgear every 6 months; mask only every 3 months; cushions per month; Tubing heated 1 every 3 months, water chamber 1 every 6 months, chin strap 1 every 6 months, filters disposable 2 per month, filters reusable 1 per 6 months. 1 Each 5 isosorbide mononitrate (IMDUR) 30 mg Extended Release 24 hour tabletIndications: Malignant hypertension Take 1 Tablet (30 mg) by mouth daily. 30 Tablet 5 5 cloNIDine (KNOWYQQBT-HSK-3) 0.2 mg/24 hr patchIndications:M alignant hypertension Apply 1 Patch to skin as directed every 7 days. 4 Patch 5 5 Insulin [place], Disposable, (Ultra-Thin II Ins Pen [place]) 29 gauge x 1/2 NeedleIndications: Type 1 diabetes mellitus with chronic kidney disease on chronic dialysis ([facility]) Use to inject insulin 4 times daily 100 Each 11 5 ARIPiprazole (ABILIFY) 5 mg tabletIndications: Paranoid schizophrenia ([facility]) Take 1 tablet by mouth once daily 30 Tablet 5 5 doxazosin (CARDURA) 4 mg tablet Take 4 mg by mouth daily at bedtime. 5 sevelamer carbonate (RENVELA) 800 mg Tablet Take 2 Tablets by mouth. 5 methoxy peg-epoetin beta (MIRCERA INJECTION) 75 mcg. 5 04/05/20 26 Rezvoglar KwikPen 100 unit/mL (3 mL) Insulin Pen INJECT 25 UNITS SUBCUTANEOUSLY TWICE DAILY 5 Blood-Glucose Sensor (Dexcom G7 Sensor) DeviceIndications: Type 1 diabetes mellitus with other kidney complication (CMS/HCC) To continuously monitor blood sugar. Change sensor every 10 days. 3 Each 8 5 blood sugar diagnostic Strip Needs 120 strips for 4 times per day 100 Strip 1 5 Blood Pressure Monitor KitIndications:Unc ontrolled hypertension To monitor blood pressure daily [facility] 1 Each 5 Blood-Glucose Meter,Continuous (Dexcom G7 Drawing Checker)Indicatio ns:Type 1 diabetes mellitus with other kidney complication (CMS/HCC) Use with sensor to monitor glucose continuously. 1 Each 5 traZODone (DESYREL) 50 mg tabletIndications: Paranoid schizophrenia ([facility]) Take 1 Tablet (50 mg) by mouth daily at bedtime. 30 Tablet 5 5 spironolactone (ALDACTONE) 50 mg tabletIndications: ESRD (end stage renal disease) ([facility]),Chronic combined systolic (congestive) and diastolic (congestive) heart failure ([facility]/HCC),Malignan t hypertension Take 1 Tablet (50 mg) by mouth daily. 90 Tablet 5 5 insulin lispro (HumaLOG KwikPen Insulin) 100 unit/mL pen syringeIndications :Type 1 diabetes mellitus with chronic kidney disease on chronic dialysis ([facility]) Inject 6 Units by subcutaneous injection 3 times daily with meals. Inject 6 units 3 times daily before meals plus a medium dose sliding scale. Max units per day 60 units. 15 mL 1 5 insulin glargine (Lantus Solostar U-100 Insulin) 100 unit/mL pen syringeIndications :Type 1 diabetes mellitus with chronic kidney disease on chronic dialysis ([facility]) Inject 25 Units by subcutaneous injection 2 times daily. 15 mL 5 5 gabapentin (NEURONTIN) 100 mg capsuleIndications :History of lumbar spinal fusion,Chronic midline low back pain with bilateral sciatica Take 2 Capsules (200 mg) by mouth 3 times daily. 180 Capsule 5 carvediloL (COREG) 25 mg tabletIndications: Chronic combined systolic (congestive) and diastolic (congestive) heart failure ([facility]/HCC),Malignan t hypertension Take 1 Tablet (25 mg) by mouth every 12 hours. 60 Tablet 5 5 buPROPion HCL (WELLBUTRIN XL) 150 mg Extended Release 24 hour tabletIndications: Paranoid schizophrenia ([facility]) Take 1 Tablet (150 mg) by mouth daily. 30 Tablet 5 5 bumetanide (BUMEX) 1 mg tabletIndications: ESRD (end stage renal disease) ([facility]),Chronic combined systolic (congestive) and diastolic (congestive) heart failure ([facility]/HCC),Malignan t hypertension Take 1 Tablet (1 mg) by mouth 2 times daily. 60 Tablet 5 5 atorvastatin (LIPITOR) 80 mg tabletIndications: Type 1 diabetes mellitus with chronic kidney disease on chronic dialysis (CMS/HCC) Take 1 Tablet (80 mg) by mouth daily. 30 Tablet 5 5 amLODIPine (NORVASC) 10 mg tabletIndications: Malignant hypertension Take 1 Tablet (10 mg) by mouth daily. 30 Tablet 5 5 amitriptyline (ELAVIL) 50 mg tabletIndications: Paranoid schizophrenia (CMS/HCC) Take 1 Tablet (50 mg) by mouth daily at bedtime. 30 Tablet 5 5 varenicline tartrate (CHANTIX) 0.5 mg (11)- 1 mg (42) tablets STARTER dose packIndications:To bacco dependence Take as directed on package. 53 Tablet 5 lidocaine-transpar ent dressing (LMX 4 PLUS) 4 % Kit Apply to affected area. diphenhydrAMINE (BENADRYL) 25 mg tablet Take 25 mg by mouth. naloxone (NARCAN) 4 mg/spray [place], Non-Aerosol EMERGENCY USE ONLY: Administer 1 spray (4 mg) in one nostril one time. May repeat in alternating nostrils every 2-3 min until responsive or EMS arrives. 2 Each 3 5 ondansetron (ZOFRAN ODT) 4 mg Tablet, Rapid Dissolve DISSOLVE 1 TABLET IN MOUTH EVERY 6 HOURS NEEDED FOR NAUSEA / EMESIS. DISSOLVE TABLET ON TOP OF TONGUE,THEN SWALLOW WITH SALIVA 5 aspirin (ECOTRIN EC) 81 mg Tablet, Delayed Release (E.C.) Take 1 Tablet (81 mg) by mouth daily. 30 Tablet 5 albuterol sulfate HFA 90 mcg/actuation aerosol inhalerIndications :Shortness of breath Take 2 Puffs by inhalation every 6 hours as needed for Shortness of Breath. 8.5 Gram 1 5 EPINEPHrine (EPIPEN) 0.3 mg/0.3 mL Auto-Injector Inject 0.3 mL (0.3 mg) by intramuscular injection 1 time daily as needed for Anaphylaxis. 1 Each 4 lancets 4 times per day testing insulin 120 Each 4 alcohol Pads, Medicated 4 times per day glucose testing. 120 Each 4 documented as of this encounter Progress Notes * Michelle Lynch, LEIGHA - 06/11/2025 11:00 AM CDT Patient arrived today for a 48 hr Holter monitor, He was given all instructions and stated his understanding. SN [id number] documented in this encounter Plan of Treatment Upcoming Encounters Date Type Department Care Team (Late st Contact Info) Description 07/05/2025 9:40 AM CDT Office Visit [facility] [address] [place] [address] Anne Duong [facility] [address] [place] [address] 07/05/2025 2:20 PM CDT Office Visit [facility] Medicine [place] [address] [address] Duke Alarcon MD [address] [address] 07/07/2025 11:10 AM CDT Office Visit [facility] Ophthalmology [place] [address] [address] Kim Servin MD [address] [place] [address] 08/09/2025 1:30 PM CDT Appointment [facility] Echo [address] [place] [address] Lawanda Mendoza, [facility] [address] [facility] [address] [place] [address] 09/27/2025 9:30 AM LYE MACHINE OPERATOR Office Visit [facility] Methods Specialist Engineer Optometry [facility] [address] [place] [address] Constantin Bales, OD [address] [place] [address] documented as of this encounter Visit Diagnoses Diagnosis Palpitations documented in this encounter Care Teams Guide Relationship Specialty Start Date End Date Duke Alarcon MD [facility] [address] [phone] PCP - General Family Practice 08/10/24 documented as of this encounter
[2025-06-15] VITALS (56 sets, daily range): BP systolic 118–239; BP diastolic 60–131; PULSE 79–111; RESP 13–24; TEMP 36.6–36.7; O2SAT 85–98
--- OUTSIDE RECORDS SUMMARY | 2025-06-15 09:18 | XMS_ITS | Encounter Summary ---
Author Organization [facility] Address [address] [place] [address] Care Team Providers Care Occupational Therapy Assist Name Role Phone Duke Alarcon MD Primary Care Provider [phone] [phone] Encounter Details Date Type Department Care Team (Late st Contact Info) Description 06/15/2025 9:18 AM CDT Hospital Encounter [facility] Respiratory Therapy Services [address] [place] [address] 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 Gender Identity Not on file Sexual Orientation Not on file documented as of this encounter Plan of Treatment Upcoming Encounters Date Type Department Care Team (Late st Contact Info) Description 07/05/2025 9:40 AM CDT Office Visit [facility] [address] [place] [address] Anne Duong, [facility] [address] [place] [address] 07/05/2025 2:20 PM CDT Office Visit [facility] Family Medicine [place] [address] [address] Duke Alarcon MD [address] [address] 07/07/2025 11:10 AM CDT Office Visit [facility] Ophthalmology [place] [address] [place] [address] Kim Servin MD [address] 4[address] [place] [address] 08/09/2025 1:30 PM CDT Appointment [facility] Echo [address] [place] [address] Lawanda Mendoza, [facility] [address] [place] [address] 09/27/2025 9:30 AM OIL BURNER INSTALLER Office Visit [facility] Finish Photographer Optometry [facility] [address] [place] [address] Constantin Bales, OD [address] [facility] [address] [place] [address] documented as of this encounter Visit Diagnoses Not on filedocumented in this encounter Care Teams Occupational Therapy Assist Relationship Specialty Start Date End Date Duke Alarcon MD [address] [address] PCP - General Family Practice 08/10/24 documented as of this encounter
--- NOTE | 2025-06-15 10:01 | ECG_ITS ---
[facility]: 2025-[facility]15 Pat Name: Hunter San Department: Room: Gender: Male Software Database Architect: : 1990 Requested By: Nedra Camacho Order Number: [id number] Mckay MD: Kishore Mcconnell M.D. Measurements Intervals [place] Rate: 109 P: 56 HI: 146 QRS: 14 QRSD: 91 T: 82 QT: 345 QTc: 466 Interpretive Statements SINUS TACHYCARDIA ABNORMAL RHYTHM ECG INTERPRETATION BASED ON A DEFAULT AGE OF 40 YEARS Compared to ECG 05/15/2025 13:40:26 Sinus rhythm no longer present Electronically Signed On 06-15-2025 20:48:46 CDT by Kishore Mcconnell M.D. [email or web address]
--- OUTSIDE RECORDS SUMMARY | 2025-06-15 10:01 | XMS_ITS | Encounter Summary ---
Author Organization [facility] Address [address] [place] [address] Care Team Providers Care Road Freight Firer Name Role Phone Karlo Banks MD Primary Care Provider [phone] [phone] Encounter Details Date Type Department Care Team (Late st Contact Info) Description 07/11/2015 Lab Requisition [facility] Laboratory Services [place] [address] [place] [phone] Jyoti Shirley, HOIST WORKER [address] [place] [phone] Social History Tobacco Use Types Packs/Day Years Used Date Smoking Tobacco: Former Cigarettes Alcohol Use Standard Drinks/Week Comments No 0 (1 standard drink = 0.6 oz pur e alcohol) Sex and Gender Information Value Date Recorded Sex Assigned at Not on file 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 MICROALBUMIN/CR EAT RATIO, UR 413.9 mg/g Creatinine 07/11/2015 11:45 PM CDT [facility] Comment: Condition mg/g Creatinine Normal Males <17 Normal Females <25 Microalbuminuria Males 17-299 Microalbuminuria Females 25-299 Overt proteinuria >=300 Urine 07/11/2015 10:5 3 PM CDT 07/11/2015 10:53 PM CDT Jyoti Shirley HOIST WORKER URINE ORDERABLES Final Result [facility] CLIA # [id number] [address] [place] [phone] * (ABNORMAL) LIPID PANEL (07/11/2015 10:53 PM CDT) CHOLESTEROL 204(H) <200 mg/dL 07/11/2015 11:21 PM CDT [facility] TRIGLYCERIDE 276(H) <150 mg/dL 07/11/2015 11:21 PM CDT [facility] HDL 25(L) 40 - 59 mg/dL 07/11/2015 11:21 PM CDT [facility] LDL CALCULATED 124(H) <100 mg/dL 07/11/2015 11:21 PM CDT [facility] NON-HDL CHOLESTEROL 179(H) <130 mg/dL 07/11/2015 11:21 PM CDT [facility] Blood 07/11/2015 10:5 3 PM CDT 07/11/2015 10:53 PM CDT Narrative [facility] - 07/11/2015 11:21 PM [...] >=220 Based on AHA/NCEP Guidelines Jyoti Shirley [facility] CHEMISTRY ORDERABLES Final Resu lt Performing Organization Address [facility] de Phone Number [facility] CLIA # [id number] [address] [place] [phone] * (ABNORMAL) HEMOGLOBIN A1C (07/11/2015 10:53 PM CDT) HEMOGLOBIN A1C 10.6(H) 4.8 - 5.9 % 07/11/2015 11:16 PM CDT [facility] EST. AVG GLUCOSE, A1C 258 mg/dL 07/11/2015 11:16 PM CDT [facility] Blood 07/11/2015 10:5 3 PM CDT 07/11/2015 10:53 PM CDT Jyotivadim Shirley [facility] CHEMISTRY ORDERABLES Final Resu lt Performing Organization Address [facility]/ZIP Co de Phone Number [facility] CLIA # [id number] [address] [place] [phone] * (ABNORMAL) COMPREHENSIVE METABOLIC PANEL (07/11/2015 10:53 PM CDT) SODIUM 129(L) 136 - 145 mmol/L 07/11/2015 11:[address] [facility] POTASSIUM 3.6 3.5 - 5.1 mmol/L 07/11/2015 11:[address] [facility] CHLORIDE 87(L) 98 - 107 mmol/L 07/11/2015 11:[address] [facility] CO2 25 22 - 29 mmol/L 07/11/2015 11:21 PM [facility] CALCIUM 9.3 8.6 - 10.0 mg/dL 07/11/2015 11:21 PM [facility] BUN 12 6 - 20 mg/dL 07/11/2015 11:21 PM [facility] CREATININE 0.61(L) 0.67 - 1.17 mg/dL 07/11/2015 11:21 PM [facility] GLUCOSE 287(H) 74 - 106 mg/dL 07/11/2015 11:21 PM [facility] TOTAL PROTEIN 8.1 6.6 - 8.7 g/dL 07/11/2015 11:21 PM [facility] ALBUMIN 4.5 3.5 - 5.2 g/dL 07/11/2015 11:[address] [facility] BILIRUBIN TOTAL 2.7(H) 0.0 - 1.2 mg/dL 07/11/2015 11:21 PM [facility] ALKALINE PHOSPHATASE 93 40 - 129 U/L 07/11/2015 11:21 PM [facility] AST 19 10 - 50 U/L 07/11/2015 11:21 PM [facility] Pharmly [facility] ALT 15 10 - 50 U/L 07/11/2015 11:21 PM [facility] Pharmly [facility] GFR >60 >=60 mL/min/1.7 3 sq meter 07/11/2015 11:21 PM [facility] Pharmly [facility] Comment: eGFR has not been validated [...] 3 sq meter 07/11/2015 11:21 PM CDT [facility] [place] ANION GAP 17 12 - 20 mmol/L 07/11/2015 11:21 PM CDT [facility] Blood 07/11/2015 10:5 3 PM CDT 07/11/2015 10:53 PM CDT Jyoti Shirley HOIST WORKER CHEMISTRY ORDERABLES Final Resu lt [facility] [place] CLIA # [id number] [address] [place] [phone] documented in this encounter Visit Diagnoses Not on filedocumented in this encounter Care Teams Road Freight Firer Relationship Specialty Start Date End Date Karlo Banks MD PCP - General Internal Medicine 10/14/14 01/11/21 documented as of this encounter
--- OUTSIDE RECORDS SUMMARY | 2025-06-15 10:01 | XMS_ITS | Encounter Summary ---
Author Organization [facility] Address 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 Gender Identity Not on file Sexual Orientation Not on file documented as of this encounter Plan of Treatment Upcoming Encounters Date Type Department Care Team (Late st Contact Info) Description 07/05/2025 9:40 AM CDT Office Visit [facility] [address] [place] [address] Anne Duong, [facility] [address] [place] [address] 07/05/2025 2:20 PM CDT Office Visit [facility] Family Medicine [place] [address] [place] [address] Duke Alarcon MD [address] [place] [address] 07/07/2025 11:10 AM CDT Office Visit [facility] Ophthalmology [place] [address] [place] [address] Kim Servin MD [address] 4[address] [place] [address] 08/09/2025 1:30 PM CDT Appointment [facility] Echo [address] [place] [address] Lawanda Mendoza, [facility] [address] [place] [address] 09/27/2025 9:30 AM LEAD SYSTEMS ANALYST Office Visit [facility] Nurse Anesthesia Program Director Optometry [facility] [address] [place] [address] Constantin Bales, OD [address] [place] [address] documented as of this encounter Visit Diagnoses Not on filedocumented in this encounter Care Teams School Cafeteria Cook Head Relationship Specialty Start Date End Date Duke Alarcon MD [address] [address] PCP - General Family Practice 08/10/24 documented as of this encounter
--- OUTSIDE RECORDS SUMMARY | 2025-06-15 10:01 | XMS_ITS | Encounter Summary ---
Author Organization [facility] Address 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 Anna Naylor LPN, 06/09/2025 10:54 AM * Telephone Encounter - Stacy Mauro - 06/09/2025 8:48 AM CDT Copied from CRM #[id number]. Topic: [id number]-[id number] Call >> Jun 09, 2025 8:46 AM Stacy Mohan wrote: Caller is requesting to speak with Clinical Care Team. Caller Name: leonard with [facility] equipment Callback Number: [phone] Is the caller a Physician, Nurse Practitioner or Physician Finishing Range Operator? No Call Notes: patient already has oxygen wondering if he needs to run oxygen through the cpap or not please call Is this addressing an immediate patient care need? No * Telephone Encounter - Anna Naylor LPN - 06/08/2025 3:18 PM CDT Approved through Medicaid. Faxed to Leonard at [facility]. Anna Naylor LPN, 06/08/2025 3:20 PM * Telephone Encounter - Magda Ferrer - 06/07/2025 10:46 AM CDT Copied from CRM #[id number]. Topic: [id number]-[id number] Call >> Jun 07, 2025 10:44 AM Magda Bright wrote: Caller is requesting to speak with Clinical Care Team. Caller Name: leonard / [facility] medical equipment Callback Number: [phone] Is the caller a Physician, Nurse Practitioner or Physician Finishing Range Operator? No Call Notes: Received an order for CPAP and they are needing OV notes and pt had medicare and an auth will need to be started for an [id number] F: [id number] Attn Leonard Is this addressing an immediate patient care need? No documented in this encounter Plan of Treatment Upcoming Encounters Date Type Department Care Team (Late st Contact Info) Description 07/05/2025 9:40 AM CDT Office Visit [facility] [address] [place] [address] Anne Duong, [facility] [address] [place] [address] 07/05/2025 2:20 PM CDT Office Visit [facility] Family Medicine [place] [address] [address] Duke Alarcon MD [address] [address] 07/07/2025 11:10 AM CDT Office Visit [facility] Eye Specialists Ophthalmology [place] [address] [place] [address] Kim Servin MD [address] 4th [place] [address] 08/09/2025 1:30 PM CDT Appointment [facility] Echo [address] [place] [address] Lawanda Mendoza, NEEDLE STRAIGHTENER [address] [place] [address] 09/27/2025 9:30 AM PLISSE MACHINE OPERATOR Office Visit [facility] Manager Summer Optometry [facility] [address] [place] [address] Constantin Bales, OD [address] [place] [address] documented as of this encounter Visit Diagnoses Not on filedocumented in this encounter Care Teams Turkey Egg Gatherer Relationship Specialty Start Date End Date Duke Alarcon MD 104 E [facility] [address] [place] [address] PCP - General Family Practice 08/10/24 documented as of this encounter
--- OUTSIDE RECORDS SUMMARY | 2025-06-15 10:01 | XMS_ITS | Encounter Summary ---
Author Organization [facility] Address 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 Gender Identity Not on file Sexual Orientation Not on file documented as of this encounter Plan of Treatment Upcoming Encounters Date Type Department Care Team (Late st Contact Info) Description 07/05/2025 9:40 AM CDT Office Visit [facility] [address] [place] [address] Anne Duong, [facility] [address] [place] [address] 07/05/2025 2:20 PM CDT Office Visit [facility] Family Medicine [place] [address] [address] Duke Alarcon MD [address] [place] [address] 07/07/2025 11:10 AM CDT Office Visit [facility] Eye Specialists Ophthalmology [place] [address] [place] [address] Kim Servin MD [address] 4th [place] [address] 08/09/2025 1:[address] [facility] Echo [address] [place] [place] [address] Lawanda Mendoza, [facility] [address] [place] [address] 09/27/2025 9:30 AM PAN OPERATOR Office Visit [facility] Equity Research Analyst Optometry [facility] [address] [place] [address] Constantin Bales, OD [address] [facility] [address] [place] [address] documented as of this encounter Procedures Procedure Name Priority Date/Time Associated Diagnosis Comments POLYSOMNOGRAPHY 4 OR MORE PARAMETERS WITH CPAP Routine 05/31/2025 LISET (obstructive sleep apnea) documented in this encounter Results * POLYSOMNOGRAPHY 4 OR MORE PARAMETERS WITH CPAP (05/31/2025) Duke Alarcon MD [facility] ORDERABLES F inal Result documented in this encounter Visit Diagnoses Diagnosis LISET (obstructive sleep apnea) Obstructive sleep apnea (adult) (pediatric) documented in this encounter Care Teams Import/Export Analyst Relationship Specialty Start Date End Date Duke Alarcon MD [address] [phone] PCP - General Family Practice 08/10/24 documented as of this encounter
--- OUTSIDE RECORDS SUMMARY | 2025-06-15 10:01 | XMS_ITS | Encounter Summary ---
Author Organization [facility] Address 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 OLIVIA STAHL notified. Anna Naylor LPN, 06/11/2025 8:38 AM * Telephone Encounter - Magda Ferrer - 06/09/2025 1:46 PM CDT Copied from [facility] #[id number]. Topic: [id number] Call >> Jun 09, 2025 1:45 PM Magda Bright wrote: Caller is requesting to speak with Clinical Care Team. Caller Name: Finley / [facility] [employer] equipment Callback Number: [phone] Is the caller a Physician, Nurse Practitioner or Physician Cuff Folder? No Call Notes: She is calling about Diabetic Shoes and she needs a precert with medicaid started. And the codes are A5500 A5512 Is this addressing an immediate patient care need? No documented in this encounter Plan of Treatment Upcoming Encounters Date Type Department Care Team (Late st Contact Info) Description 07/05/2025 9:40 AM CDT Office Visit [facility] [address] [facility] [address] [place] [address] Anne Duong, [facility] [address] [facility] [address] [place] [address] 07/05/2025 2:20 PM CDT Office Visit [facility] Medicine [place] [address] [address] Duke Alarcon MD [address] [address] 07/07/2025 11:10 AM CDT Office Visit [facility] Eye Specialists Ophthalmology [place] [address] [place] [address] Kim Servin MD [address] 4th [place] [address] 08/09/2025 1:30 PM CDT Appointment [facility] Echo [address] [place] [address] Lawanda Mendoza, WIRE STRIPPING MACHINE OPERATOR [address] [place] [address] 09/27/2025 9:30 AM DIPLOMATIC INTERPRETER Office [facility] It Architecture Analyst Optometry [facility] [address] [place] [address] Constantin Bales, OD [address] [place] [address] documented as of this encounter Visit Diagnoses Not on filedocumented in this encounter Care Teams Porcelain Finish Sprayer Relationship Specialty Start Date End Date Duke Alarcon MD [address] [phone] PCP - General Family Practice 08/10/24 documented as of this encounter
--- OUTSIDE RECORDS SUMMARY | 2025-06-15 10:01 | XMS_ITS | Encounter Summary ---
Author Organization [facility] Address 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 Gender Identity Not on file Sexual Orientation Not on file documented as of this encounter Miscellaneous Notes * Telephone Encounter - Olamide Mcclelland RN - 06/15/2025 9:40 AM CDT Medication Refill Request Last Fill Date:06/07/25 #20 Recent and Future Visits: Recent Visits Date Type Provider Dept 05/31/25 Office Visit Duke Alarcon MD [facility] [place] 05/03/25 Office Visit Duke Alarcon MD [facility] [place] 01/25/25 Office Visit Duke Alarcon MD [facility] 01/04/25 Office Visit Deysi Vargas [facility] 12/21/24 Office Visit Duke Alarcon MD [facility] [place] 12/16/24 Office Visit Mel Dowd [facility] 11/10/24 Office Visit Roberta Kennedy NP [facility] 10/01/24 Office Visit Mel Dowd [facility] 09/14/24 Office Visit Deysi Vargas [facility] 09/04/24 Office Visit Mel Dowd [facility] Showing recent visits within past 540 days with a meds authorizing provider and meeting all other requirements Future Appointments Date Type Provider Dept 07/05/25 Appointment Duke Alarcon MD [facility] Showing future appointments within next 365 days with a meds authorizing provider and meeting all other requirements Last Labs: documented in this encounter Plan of Treatment Upcoming Encounters Date Type Department Care Team (Late st Contact Info) Description 07/05/2025 9:40 AM CDT Office Visit [facility] [address] [facility] [address] [place] [address] Anne Duong [facility] [address] [facility] [address] [place] [address] 07/05/2025 2:20 PM CDT Office Visit [facility] Family Medicine [place] [address] [place] [address] Duke Alarcon MD [address] [place] [address] 07/07/2025 11:10 AM CDT Office Visit [facility] Eye Specialists Ophthalmology [place] [address] [place] [address] Kim Servin MD [address] 4[address] [place] [address] 08/09/2025 1:[address] [facility] Echo [address] [place] [address] Lawanda Mendoza, NET DEVELOPMENT MANAGER [address] [place] [address] 09/27/2025 9:30 AM BINDER LOCKSTITCH Office Visit [facility] Lace Paper Machine Operator Optometry [facility] [address] [place] [address] Constantin Bales, OD [address] [place] [address] documented as of this encounter Visit Diagnoses Diagnosis Osteoarthritis of spine with radiculopathy, lumbar region documented in this encounter Care Teams Data Keyer Relationship Specialty Start Date End Date Duke Alarcon MD [address] [place] [address] PCP - General Family Practice 08/10/24 documented as of this encounter
--- OUTSIDE RECORDS SUMMARY | 2025-06-15 10:01 | XMS_ITS | Encounter Summary ---
Author Organization [facility] Address [address] [place] [address] Phone Care Team Providers Care Search Developer Name Role Phone Duke Alarcon MD Primary Care Provider [phone] Encounter Details Date Type Department Care Team (Late st Contact Info) Description 06/08/2025 Treatment [facility] [address] [place] [address] Anju Mcleod NP [address] [place] [address] End stage renal disease; Dependence on renal dialysis Social History Tobacco Use Types Packs/Day Years [...] as of this encounter Miscellaneous Notes * Dialysis Note - Anju Mcleod NP - 06/08/2025 12:00 AM CDT Patient: Hunter San, 1990, 34y, M Dialysis Location: [facility] Attending Stull Installer: Angélica Ny Service Date: 06/08/2025 Service Provider: Anju Mcleod NP I met face to face with the patient today. OVERVIEW The patient presented with ESRD on dialysis Primary cause of renal failure: Type 1 diabetes mellitus with diabetic chronic kidney disease Comments: VSS, seen on HD machine, denies needs for me today Type I diabetic With nephrotic syndrome, with hypertension, HFrEF, cardiomyopathy with hx of methamphetamine and EtOH use now sober. Admitted for an incidentally 12/08/24 with acute coronary syndrome. Prior to hospital admission serum creatinine over the last year had gone from 1.8 up to a baseline of 5.2 with ongoing uncontrolled diabetes. He is still interested in HHD. He has had CPAP fitting. LAST HOSPITALIZATION Discharge Diagnosis: I16.1 Hypertensive emergency I21.4 Non-ST elevation (NSTEMI) myocardial infarction Admission Date 05/16/25 Discharge Date 05/22/25 Comments: 12/08/24 through 12/10/24 for NSTEMI DIALYSIS PRESCRIPTION IHD 3x Week Start date: 06/03/25 Dialyzer: 180NRe Optiflux BFR: 450 DFR: Autoflow 2 Potassium: 2.0 Sodium: 138 EDW: 101.2 Duration: 4:00 Calcium: 2.5 Bicarb: 34 Rx updated on: 06/02/2025 TREATMENT ASSESSMENT Comments: Recently changed to clonidine patch. BP Stand Pre 06/05/2025: 168/91 06/03/2025: 102/60 06/01/2025: 186/97 BP Sit Pre 06/05/2025: 174/119 06/03/2025: 125/68 06/01/2025: 186/105 BP Stand Post 06/05/2025: 195/103 06/03/2025: 183/89 06/01/2025: 193/90 BP Sit Post 06/05/2025: 193/103 06/03/2025: 179/90 06/01/2025: 197/94 Tx Duration 06/05/2025: 4:35 06/03/2025: 4:03 06/01/2025: 3:59 Missed Treatments 0 - last 30 days 0 - last 60 days FLUID ASSESSMENT Comments: Challenging UF. Ed on fluid gains. Fluid status acceptable. Interdialytic weight gain acceptable. No changes indicated. EDW (kg) 06/05/2025: 101.2 06/03/2025: 101.2 06/01/2025: 101.2 Weight Pre (kg) 06/05/2025: 105.9 06/03/2025: 105.5 06/01/2025: 104.1 Weight Post (kg) 06/05/2025: 101.5 06/03/2025: 101.9 06/01/2025: 101.8 PWV (kg) 06/05/2025: 0.3 06/03/2025: 0.7 06/01/2025: 0.6 UF Rate (mL/kg/hr) 06/05/2025: 9.5 06/03/2025: 8.7 06/01/2025: 5.7 ADEQUACY ASSESSMENT Comments: Stable spKt/V, URR 05/29/2025: 1.26, 66.0 04/15/2025: 1.46, 70.0 04/01/2025: 1.37, 69.0 ACCESS ASSESSMENT Access Type: AVFistula Access SubType: Standard Access Status: Active (In Use) - 04/24/2025 Access Location: Right Upper Arm Created: 01/18/2025 Flow 05/11/2025: 1149 Vascular access reviewed. Current access is permanent and functioning well. ANEMIA ASSESSMENT Comments: On IV iron and NERISSA protocol. Had a recent hospital stay. Missed Micera dosing. He also had complaints of emesis of coffee ground with heart burn. Ed to go to the ER to be seen. No heparin used on HD. HGB, TSAT 06/03/2025: 7.0, 23.0 06/01/2025: 7.9, 20.0 05/27/2025: 7.3, - Ferritin 06/03/2025: 3018.0 06/01/2025: 667.0 03/25/2025: 625.0 Mircera, IVP (mcg) 06/01/2025: 50 05/04/2025: 50 04/20/2025: 50 Iron Sucrose (Venofer) (mg) 06/01/2025: 50 05/25/2025: 50 05/13/2025: 100 BMM ASSESSMENT Comments: Ed on low phos diet and to take phos binders. PTH, Intact 03/18/2025: 161.0 12/17/2024: 198.0 12/15/2024: 148.0 Calcium, Phosphorus 06/01/2025: 8.7, 6.7 05/27/2025: 7.8, - 04/15/2025: 8.0, 9.5 NUTRITION ASSESSMENT Comments: Ongoing education about potassium restriction in foods. If potassium persistently ? 5.5 will look to add Veltessa. Potassium, Albumin 06/01/2025: 5.5, 3.6 05/27/2025: 5.5, 3.5 05/11/2025: 5.6, - eNPCR 05/29/2025: 0.74 04/15/2025: 0.82 04/01/2025: 0.58 DIAGNOSIS Chief Complaint: N18.6 End stage renal disease Patient data updated 06/08/2025 at 2:25 PM Signed By: Anju Mcleod NP on 06/08/2025 2:27:27 PM documented in this encounter Plan of Treatment Not on file documented as of this encounter Visit Diagnoses Diagnosis End stage renal disease Dependence on renal dialysis documented in this encounter Care Teams Search Developer Relationship Specialty Start Date End Date Duke Alarcon MD [address] [address] PCP - General Family Medicine 08/12/24 documented as of this encounter
--- OUTSIDE RECORDS SUMMARY | 2025-06-15 10:01 | XMS_ITS | Encounter Summary ---
Author Organization [facility] Address 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 Gender Identity Not on file Sexual Orientation Not on file documented as of this encounter Plan of Treatment Upcoming Encounters Date Type Department Care Team (Late st Contact Info) Description 07/05/2025 9:40 AM CDT Office Visit [facility] [address] [place] [address] Anne Duong, [facility] [address] [place] [address] 07/05/2025 2:20 PM CDT Office Visit [facility] Family Medicine [place] [address] [address] Duke Alarcon MD [address] [address] 07/07/2025 11:10 AM CDT Office Visit [facility] Eye Specialists Ophthalmology [place] [address] [place] [address] Kim Servin MD [address] 4th [place] [address] 08/09/2025 1:30 PM CDT Appointment [facility] Echo [address] [place] [place] [address] Lawanda Mendoza, [facility] [address] [place] [address] 09/27/2025 9:30 AM PHILOSOPHY INSTRUCTOR Office Visit [facility] In Room Dining Server Optometry [facility] [address] [place] [address] Constantin Bales, OD [address] [place] [address] documented as of this encounter Visit Diagnoses Diagnosis Osteoarthritis of spine with radiculopathy, lumbar region documented in this encounter Care Teams Utility Inspector Relationship Specialty Start Date End Date Duke Alarcon MD [address] [phone] PCP - General Family Practice 08/10/24 documented as of this encounter
--- OUTSIDE RECORDS SUMMARY | 2025-06-15 10:01 | XMS_ITS | Encounter Summary ---
Author Organization [facility] Address [address] [place] [address] Care Team Providers Care Sales Representative Jewelry Name Role Phone Duke Alarcon MD Primary Care Provider [phone] [phone] Reason for Visit * Reason Comments Med Refill Encounter Details Date Type Department Care Team (Late st Contact Info) Description 06/15/2025 Refill [facility] Family Medicine [address] [address] Duke Alarcon MD [address] [address] Type 1 diabetes mellitus with chronic kidney disease on chronic dialysis ([facility]) Social History Tobacco Use Types Packs/Day Years [...] on file 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 Gender Identity Not on file Sexual Orientation Not on file documented as of this encounter Plan of Treatment Upcoming Encounters Date Type Department Care Team (Late st Contact Info) Description 07/05/2025 9:40 AM CDT Office Visit [facility] [address] [place] [address] Anne Duong, [facility] [address] [place] [address] 07/05/2025 2:20 PM CDT Office Visit [facility] Family Medicine [place] [address] [address] Duke Alarcon MD [address] [address] 07/07/2025 11:10 AM CDT Office Visit [facility] Special[facility] Ophthalmology [place] [address] [place] [address] Kim Servin MD [address] 4th [place] [address] 08/09/2025 1:30 PM CDT Appointment [facility] Echo [address] [place] [address] Lawanda Mendoza, [facility] [address] [place] [address] 09/27/2025 9:30 AM SURGERY SCHEDULER Office Visit [facility] Sprayer Hand Optometry [facility] [address] [place] [address] Constantin Bales, OD [address] [place] [address] documented as of this encounter Visit Diagnoses Diagnosis Type 1 diabetes mellitus with chronic kidney disease on chronic dialysis ([facility]) documented in this encounter Care Teams Sales Representative Jewelry Relationship Specialty Start Date End Date Duke Alarcon MD [address] [phone] PCP - General Family Practice 08/10/24 documented as of this encounter
--- OUTSIDE RECORDS SUMMARY | 2025-06-15 10:01 | XMS_ITS | Clinical Summary ---
Author Organization [facility] Address [address] [place] [address] Phone Care Team Providers Care Kst Operator Name Role Phone Unavailable Primary Care Provider [...] on file Legal Sex Male 5:07 AM REED POLISHER Gender Identity Not on file Sexual Orientation [...] of 3 - 19+ 3-dose series) 09/15 HPV VACCINES (1 - 3-dose SCDM series) 2017 INFLUENZA VACCINE (#1) 2025
--- OUTSIDE RECORDS SUMMARY | 2025-06-15 10:01 | XMS_ITS | Encounter Summary ---
Author Organization [facility] Address [address] [place] [address] Phone Care Team Providers Care Equity Structurer Name Role Phone Duke Alarcon MD Primary Care Provider [phone] Encounter Details Date Type Department Care Team (Late st Contact Info) Description 06/10/2025 Orders Only [facility] [address] [place] [address] Angélica Ny MD [address] [place] [address] Social History Tobacco Use Types [...] Priority Date/Time Associated Diagnosis Comments HEMATOLOGY Routine 06/10/2025 documented in this encounter Results * (ABNORMAL) HEMATOLOGY (06/10/2025) Hemoglobin 9.1(L) 14.0 - 18.0 g/dL [facility] Hemoglobin x 3 27.3(L) 42.0 - 54.0 % [facility] 06/10/2025 06/11/2025 9:5 2 AM CDT Narrative [facility] Paula - 06/11/2025 Unless otherwise specified, test(s) performed at: [facility], [address] [place] [address] REGIONAL ECONOMIST: Ulises De Paz M.D. For any questions, please call customer service at FREQUENCY:OTHER Resulting Agency Comment Specimen source: Blood us Angélica Ny MD LAB BLOOD ORDERABLES Final Re sult [facility] See order comments or contact performing lab Unknown, [place] documented in this encounter Visit Diagnoses Not on filedocumented in this encounter Care Teams Equity Structurer Relationship Specialty Start Date End Date Duke Alarcon MD [address] [phone] PCP - General Family Medicine 08/12/24 documented as of this encounter
--- NOTE | 2025-06-15 10:02 | XR_ITS ---
WS: [id number] PORTABLE CHEST HISTORY: cp COMPARISON: 05/15/2025, 12/16/2024 Findings are slightly decreased. Hazy interstitial opacification throughout the RIGHT lung, predominantly in the RIGHT hilum extending into the RIGHT lower lobe. No dense areas of consolidation. Mild thickening of the LEFT costophrenic angle. Cardiac size: Heart size has slightly increased since 05/15/2025. Mediastinum/Aorta: Normal mediastinum. 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 XR/XR chest 1V portable [id number] IMPRESSION: 1. New hazy opacifications in the RIGHT lung. Edema versus pneumonitis. 2. No dense consolidation or pneumonia. 3. Mild cardiomegaly. Size of the heart has slightly increased since the prior study. Small pericardial effusion is not excluded.
--- OUTSIDE RECORDS SUMMARY | 2025-06-15 10:02 | XMS_ITS | Encounter Summary ---
Author Organization [facility] Address [address] [place] [address] Care Team Providers Care Travel Insurance Agent Name Role Phone Karlo Banks MD Primary Care Provider [phone] Encounter Details Date Type Department Care Team (Latest Contact Info) Description 06/04/2005 Outpatient Historical [facility] [address] [place] [address] Holland Bell MD [address] [place] [address] MED EXAM NEC-ADMIN PURP (Primary Dx) Social History Tobacco Use Types Packs/Day Years Used Date Smoking Tobacco: Never Assessed Sex and Gender Information Value Date Recorded Sex Assigned at Not on file 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
--- OUTSIDE RECORDS SUMMARY | 2025-06-15 10:02 | XMS_ITS | Encounter Summary ---
Author Organization [facility] Address [address] [place] [address] Phone Care Team Providers Care Actuarial Internship Name Role Phone Duke Alarcon MD Primary Care Provider [phone] Encounter Details Date Type Department Care Team (Late st Contact Info) Description 04/20/2025 TCM in Dialysis Clinic [facility] [address] [place] [address] Jacki Gill NP [address] [place] [address] Social History Tobacco Use Types [...] 04/20/2025 The patient was seen for a ntzy-go-mika visit as part of Transitional Care Management services. Primary cause of renal failure: E10.22 - Type 1 diabetes mellitus with diabetic chronic kidney disease Attending Filter Press Tender: HODAN VALERA Dialysis Location: [facility] Schedule: Shift: 2 HOSPITALIZATION SUMMARY [...] with patient, and discussed maintaining compliance Current [facility] Outpatient Medications Abilify 5 mg tablet Take [...] patient or caregiver VISIT DIAGNOSES CPT Code 06200 - High complexity, seen 8-14 days post discharge or moderate complexity, seen [id number] days of discharge. I16.0 Hypertensive urgency COMMENTS: [...] on filedocumented in this encounter Care Teams Actuarial Internship Relationship Specialty Start Date End Date Duke Alarocn MD [address] [address] PCP - General Family Medicine 08/12/24 documented as of this encounter
--- OUTSIDE RECORDS SUMMARY | 2025-06-15 10:02 | XMS_ITS | Clinical Summary ---
Author Organization [facility] Address [address] [address] Care Team Providers Care Outpatient Coding Specialist Name Role Phone Duke Alarcon MD Primary Care Provider [phone] Allergies Active Allergy Reactions Criticality Noted Date [...] bottom number > 110 10/01/20 24 Active ARIPiprazole (ABILIFY) 5 MG tablet Take [...] (one) time if needed for itching Active bumetanide (BUMEX) 1 MG tablet Take 1 mg by mouth in the morning and 1 mg in the evening. 05/03/20 25 Active doxazosin (CARDURA) 4 MG tablet Take 4 mg by mouth every night 05/04/20 25 Active gabapentin (NEURONTIN) 100 MG capsule Take 200 mg by mouth in the morning and 200 mg at noon and 200 mg in the evening. 05/03/20 25 Active isosorbide mononitrate (IMDUR) 30 MG 24 hr tablet Take 30 mg by mouth in the morning. 05/22/20 25 Active sevelamer carbonate (RENVELA) 800 MG tablet Take 2 tablets by mouth 1 (one) time each day 04/13/20 25 Active traMADol (ULTRAM) 50 MG tablet Take 50 mg by mouth every 8 hours as needed 05/17/20 25 Active traZODone (DESYREL) 50 MG tablet Take 50 mg by mouth every night 05/03/20 25 Active Varenicline Tartrate, Starter, 0.5 MG X 11 & 1 MG X 42 tablet therapy pack Pt is on day 15 05/03/20 25 Active cyclobenzaprine (FLEXERIL) 10 MG tablet Take 1 tablet by mouth in the morning and 1 tablet at noon and 1 tablet in the evening. 07 025 Discontinued cefdinir (OMNICEF) 300 MG capsule Take 300 mg by mouth in the morning. 05/20/20 25 025 Active Problems Problem Noted Date Diagnosed Date Type 1 diabetes mellitus wit h diabetic chronic kidney disease 08/27/2024 Malignant hypertension 08/27/2024 Persistent proteinuria 08/27/2024 Substance abuse 08/27/2024 Chronic kidney disease stage 3A 08/27/2024 Acute nontraumatic kidney injury 07/12/2024 Encounters Date Type Department Care Team Description 06/10/2025 [facility], [facility] [address] [place] [address] Angélica Ny MD 06/08/[address] [place] [address], [facility] [address] [place] [address] Anju Mcleod, INOCENCIA End stage renal disease; Dependence on renal dialysis 06/03/2025 Orders Only [facility], [facility] [address] [place] [address] Angélica Ny MD 06/01/2025 Orders [facility], [facility] [address] [place] [address] Angélica Ny MD 06/01/2025 Treatment [facility], [facility] [address] [place] [address] Angélica Ny MD End stage renal disease; Dependence on renal dialysis 05/29/2025 Orders Only [facility], [facility] [address] [place] [address] Angélica Ny MD 05/27/2025 Orders Only [facility], [facility] [address] [place] [address] Angélica Ny MD 05/26/2025 Treatment [facility], [facility] [address] [place] [address] Anju Mcleod NP End stage renal disease; Dependence on renal dialysis 05/25/2025 Orders Only [facility], [facility] [address] [place] [address] Angélica Ny MD 05/25/2025 TCM in Dialysis Clinic [address] [place] [address] [place] [address] Anju Mcleod NP 05/25/[address] [place] [address], [facility] [address] [place] [address] Anju Mcleod NP End stage renal disease; Dependence on renal dialysis; Type 1 diabetes mellitus with diabetic chronic kidney disease 05/24/2025 Telephone [facility], [facility] [address] [place] [address] Angélica Ny MD 05/13/2025 Documentation Only [facility], [facility] [address] [place] [address] Tk Mcclelland MD 05/11/2025 Orders Only [facility], [facility] [address] [place] [address] Angélica Ny MD 05/06/2025 Orders Only [facility], [facility] [address] [place] [address] Angélica Ny MD 05/04/2025 TCM in Dialysis Clinic [address] [place] [address], [facility] [address] [place] [address] Angélica Ny MD 05/04/[address] [place] [address], [facility] [address] [place] [address] Angélica Ny MD End stage renal disease; Dependence on renal dialysis 04/29/2025 [facility], [facility] [address] [place] [address] Angélica Ny MD 04/29/2025 Documentation Only [facility], [facility] [address] [place] [address] Anne Muñoz MA 04/28/2025 Telephone [facility], [facility] [address] [place] [address] Breonna Barnett NP 04/20/2025 TCM in Dialysis Clinic [address] [place] [address], [facility] [address] [place] [address] Delia Solis NP 04/20/[address] [place] [address], [facility] [address] [place] [address] Delia Solis NP End stage renal disease; Dependence on renal dialysis 04/15/2025 Orders Only [facility], [facility] [address] [place] [address] Angélica Ny MD 04/08/2025 Orders Only [facility], [facility] [address] [place] [address] Angélica Ny MD 04/06/[address] [place] [address], [facility] [address] [place] [address] Anju Mcleod NP End stage renal disease; Dependence on renal dialysis 04/01/2025 Orders Only [facility], [facility] [address] [place] [address] Angélica Ny MD 04/01/[address] [place] [address], [facility] [address] [place] [address] Angélica Ny MD End stage renal disease; Dependence on renal dialysis; Type 1 diabetes mellitus with diabetic chronic kidney disease 03/25/2025 Orders Only [facility], [facility] [address] [place] [address] Angélica Ny MD 03/23/2025 Treatment [facility], [facility] [address] [place] [address] Anju Mcleod NP End stage renal disease; Dependence on renal dialysis 03/18/2025 Orders Only [facility], [facility] [address] [place] [address] Angélica Ny MD 03/16/2025 Treatment [facility], [facility] [address] [place] [address] Anju Mcleod NP End stage [...] Comments Blood Pressure 230/130 11/18/2024 12:57 PM OVEN PRESS TENDER Pulse 105 11/18/2024 12:57 PM OVEN PRESS TENDER Temperature - - Respiratory Rate - - Oxygen Saturation 97% 11/18/2024 12:57 PM OVEN PRESS TENDER Inhaled Oxygen Concentration - - Weight 114 kg (251 lb 14.4 oz) 11/18/2024 12:57 PM OVEN PRESS TENDER Height 182.9 cm (6') 11/18/2024 12:57 PM OVEN PRESS TENDER Body Mass Index 34.16 11/18/2024 12:57 PM OVEN PRESS TENDER Plan of Treatment Health Maintenance Due Date [...] Date/Time Associated Diagnosis Comments HEMATOLOGY Routine 06/10/2025 HEMATOLOGY Routine 06/03/2025 CHEMISTRY Routine 06/03/2025 CHEMISTRY Routine 06/01/2025 HEMATOLOGY Routine 06/01/2025 [facility] RESULTS Routine 05/29/2025 HD KINETICS Routine 05/29/2025 POST CHEMISTRY Routine 05/29/2025 CHEMISTRY Routine 05/29/2025 THERAPEUTIC DRUGS Routine 05/27/2025 CHEMISTRY Routine 05/27/2025 HEMATOLOGY Routine 05/27/2025 HEMATOLOGY Routine 05/25/2025 CHEMISTRY Routine 05/11/2025 HEMATOLOGY Routine 05/06/2025 HEMATOLOGY Routine 04/29/2025 [facility] RES[facility] Routine 04/15/2025 HD KINETICS Routine 04/15/2025 POST CHEMISTRY Routine 04/15/2025 CHEMISTRY Routine 04/15/2025 HEMATOLOGY Routine 04/15/2025 HEMATOLOGY Routine 04/08/2025 [facility] Routine 04/01/2025 HD KINETICS Routine 04/01/2025 CHEMISTRY Routine 04/01/2025 HEMATOLOGY Routine 04/01/2025 POST CHEMISTRY Routine 04/01/2025 CHEMISTRY Routine 03/25/2025 HEMATOLOGY Routine 03/25/2025 [facility] RES[facility] Routine 03/18/2025 HD KINETICS Routine 03/18/2025 CHEMISTRY Routine 03/18/2025 POST CHEMISTRY Routine 03/18/2025 SPECIAL CHEMISTRY Routine 03/18/2025 CHEMISTRY Routine 03/18/2025 HEMATOLOGY Routine 03/18/2025 from Last 3 Months Results * (ABNORMAL) HEMATOLOGY (06/10/2025) Only the most recent of12 resultswithin the time period is included. Hemoglobin 9.1(L) 14.0 - 18.0 g/dL [facility] Hemoglobin x 3 27.3(L) 42.0 - 54.0 % [facility] 06/10/2025 06/11/2025 9:5 2 AM CDT Narrative [facility] - 06/11/2025 Unless otherwise specified, test(s) performed at: [facility], [address] [place] [address] METHODOLOGIST: Ulises De Paz M.D. For any questions, please call customer service at FREQUENCY:OTHER Resulting Agency Comment Specimen source: Blood us Angélica Ny MD LAB BLOOD ORDERABLES Final Re sult Performing Organization Address [facility] de Phone Number [facility] See order comments or contact performing lab Unknown, [place] * (ABNORMAL) [facility] (06/03/2025) Only the most recent of10 resultswithin the time period is included. Iron 60 45 - 160 mcg/dL [facility] UIBC 196 155 - 355 mcg/dL [facility] TIBC 256 185 - 515 mcg/dL [facility] Iron Saturation (TSat) 23 20 - 55 % [facility] Ferritin 3,018(H) 22 - 322 ng/mL [facility] Comment: Verified by repeat analysis. 06/03/2025 06/04/2025 11: 44 AM CDT Narrative [facility] - 06/04/2025 Unless otherwise specified, test(s) performed at: [facility], [address] [place] [address] METHODOLOGIST: Ulises De Paz M.D. For any questions, please call customer service at FREQUENCY:OTHER Resulting Agency Comment Specimen source: Serum us Angélica Ny MD LAB BLOOD ORDERABLES Edited R esult - Final Performing Organization Address [facility] de Phone Number [facility] See order comments or contact performing lab Unknown, [place] * HD KINETICS (05/29/2025) Only the most recent of4 resultswithin the time period is included. % Urea Reduction 66 65 - 80 % [facility] 05/29/2025 06/01/2025 10: 43 AM CDT Narrative Resulting Agency Comment Specimen source: Plasma us Angélica Ny MD LAB BLOOD ORDERABLES Final Re sult Performing Organization Address [facility] Co de Phone Number [facility] See order comments or contact performing lab Unknown, [place] * POST CHEMISTRY (05/29/2025) Only the most recent of4 resultswithin the time period is included. Pathologist [facility] BUN Post Dialysis 15 6 - 19 mg/dL [facility] 05/29/2025 06/01/2025 10: 43 AM CDT Narrative [facility] - 06/01/2025 Unless otherwise specified, test(s) performed at: [facility], [address] [place] [address] METHODOLOGIST: Ulises De Paz M.D. For any questions, please call customer service at FREQUENCY:OTHER Resulting Agency Comment Specimen source: Plasma Angélica Ny MD LAB BLOOD ORDERABLES Final Re sult [facility] See order comments or contact performing lab Unknown, [place] * [facility] Results (05/29/2025) Only the most recent of4 resultswithin the time period is included. [facility] eKt/V Gotch 1.12 [facility] e Center eNPCR 0.74 [facility] spKt/V (Daugirdas II) 1.26 [facility] spKt/V Gotch 1.27 [facility] ge Center eKt/V ([place]) 1.11 [facility] eKdrt/V 1.12 [facility] WSTDKT/V 3.0 [facility] nPCR_HD 0.80 [facility] PCR 71.49 [facility] 05/29/2025 05/29/2025 us Terence Ordering Provider LAB BLOOD ORDERABLES Final Result [facility] Contact Performing lab Unknown, [place] * THERAPEUTIC DRUGS (05/27/2025) Pathologist [facility] Vancomycin Tr 19.9 10.0 - 20.0 mcg/mL [facility] Comment: Verified by repeat analysis. Test performed at [facility], [address] [place] [address], [place] [address]. Telephone . Wheat Shipper: Gerber Chin MD., PhD. 05/27/2025 05/29/2025 7:5 2 AM CDT Narrative [facility] - 05/29/2025 Unless otherwise specified, test(s) performed at: [facility], [address] [place], [place] [id number] METHODOLOGIST: Ulises De Paz M.D. For any questions, please call customer service at FREQUENCY:OTHER Resulting Agency Comment Specimen source: Serum Angélica Ny MD LAB BLOOD ORDERABLES Final Re sult Performing Organization Address City/[facility]/ZIP Co de Phone Number [facility] See order comments or contact performing lab Unknown, [place] * (ABNORMAL) SPECIAL CHEMISTRY (03/18/2025) Hemoglobin A1C 8.3(H) 4.8 - 5.9 % [facility] 03/18/2025 03/19/2025 9:5 6 AM CDT Narrative [facility] - 03/19/2025 Unless otherwise specified, test(s) performed at: [facility], [address] [place] [address] METHODOLOGIST: Ulises De Paz M.D. For any questions, please call customer service at FREQUENCY:MONTHLY Resulting Agency Comment Specimen source: Blood Angélica Ny MD LAB BLOOD BANK TEST ORDERABLE S Final Result Performing Organization Address City/[facility]/ZIP Co de Phone Number [facility] See order comments or contact performing lab Unknown, [place] from Last 3 Months Insurance Medicaid [place] ([id number]) [facility] Medicare Care Teams Outpatient Coding Specialist Relationship Specialty Start Date End Date Duke Alarcon MD [address] [address] PCP - General Family Medicine 08/12/24
--- OUTSIDE RECORDS SUMMARY | 2025-06-15 10:02 | XMS_ITS | Clinical Summary ---
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 AM CDT PREPARE RED BLOOD CELLS Stat 05/21/2025 4:32 AM CDT CBC WITHOUT DIFFERENTIAL Routine 05/21/2025 3:56 AM CDT RENAL FUNCTION PANEL Routine 05/21/2025 3:56 AM CDT POC GLUCOSE Routine 05/20/2025 8:28 PM CDT POC GLUCOSE Routine 05/20/2025 4:12 PM CDT POC GLUCOSE Routine 05/20/2025 11:35 AM CDT HEMODIALYSIS Routine 05/20/2025 10:10 AM CDT POC GLUCOSE Routine 05/20/2025 8:43 AM CDT VANCOMYCIN LEVEL RANDOM Routine 05/20/2025 1:16 AM CDT RENAL FUNCTION PANEL Routine 05/20/2025 1:16 AM CDT CBC WITH DIFFERENTIAL Routine 05/20/2025 1:16 AM CDT POC GLUCOSE Routine 05/19/2025 9:15 PM CDT POC GLUCOSE Routine 05/19/2025 5:32 PM CDT ECHO TRANSESOPHAGEAL W DOPPLER AND COLOR FLOW Routine 05/19/2025 12:15 PM CDT POC GLUCOSE Routine 05/19/2025 11:49 AM CDT POC GLUCOSE Routine 05/19/2025 10:14 AM CDT PHOSPHORUS Routine 05/19/2025 5:26 AM CDT COMPREHENSIVE METABOLIC PANEL Routine 05/19/2025 5:26 AM CDT VANCOMYCIN LEVEL RANDOM Routine 05/19/2025 5:26 AM CDT CBC WITH DIFFERENTIAL Routine 05/19/2025 5:26 AM CDT POC GLUCOSE Routine 05/18/2025 8:39 PM CDT POC GLUCOSE Routine 05/18/2025 6:28 PM CDT POC GLUCOSE Routine 05/18/2025 4:43 PM CDT BLOOD CULTURE Routine 05/18/2025 1:44 PM CDT BLOOD CULTURE Routine 05/18/2025 1:44 PM CDT BLOOD CULTURE Routine 05/18/2025 1:39 PM CDT BLOOD CULTURE Routine 05/18/2025 1:39 PM CDT POC GLUCOSE Routine 05/18/2025 12:25 PM CDT POC GLUCOSE Routine 05/18/2025 9:03 AM CDT RENAL FUNCTION PANEL Routine 05/18/2025 5:24 AM CDT CBC WITH DIFFERENTIAL Routine 05/18/2025 1:59 AM CDT POC GLUCOSE Routine 05/17/2025 8:10 PM CDT POC GLUCOSE Routine 05/17/2025 3:59 PM CDT HEMODIALYSIS Routine 05/17/2025 12:20 PM CDT POC GLUCOSE Routine 05/17/2025 11:25 AM CDT POC GLUCOSE Routine 05/17/2025 6:56 AM CDT RENAL FUNCTION PANEL Stat 05/17/2025 4:39 AM CDT CBC WITH DIFFERENTIAL Stat 05/17/2025 4:39 AM CDT POC GLUCOSE Stat 05/17/2025 1:58 AM CDT SPUTUM CULTURE WITH GRAM STAIN Stat 05/17/2025 12:06 AM CDT LACTIC ACID Stat 05/16/2025 11:51 PM CDT TROPONIN 6 HR, 5TH GEN Timed Study 11:51 PM CDT BLOOD CULTURE MRSA/MSSA PCR PANEL Routine 05/16/2025 11:51 PM CDT BLOOD CULTURE Stat 05/16/2025 11:51 PM CDT BLOOD CULTURE Stat 05/16/2025 11:51 PM CDT BLOOD CULTURE Stat 05/16/2025 11:51 PM CDT BLOOD CULTURE Stat 05/16/2025 11:51 PM CDT CTA CHEST W AND/OR WO CONTRAST Stat 05/16/2025 8:53 PM CDT TROPONIN 2 HR, 5TH GEN Timed Study 8:16 PM CDT TROPONIN BASELINE, GEN Stat 05/16/2025 6:12 PM CDT EKG 12-LEAD Stat 05/16/2025 4:45 PM CDT XR CHEST PA OR AP 1 VW Stat 1:14 PM CDT MAGNESIUM LEVEL Stat 05/16/2025 1:03 PM CDT LIPASE Stat 05/16/2025 1:03 PM CDT BRAIN NATRIURETIC PEPTIDE, BNP OR PROBNP Stat 05/16/2025 1:03 PM CDT TROPONIN BASELINE, GEN Stat 05/16/2025 1:03 PM CDT BASIC METABOLIC PANEL Stat 05/16/2025 1:03 PM CDT EKG 12-LEAD Stat 05/16/2025 12:37 PM CDT D-DIMER Stat 05/16/2025 12:34 PM CDT PT AND APTT Stat 05/16/2025 12:34 PM CDT CBC WITH DIFFERENTIAL Stat 05/16/2025 12:34 PM CDT COMPREHENSIVE METABOLIC PANEL Routine 05/15/2025 10:33 AM CDT PROTIME-INR Routine 05/15/2025 TELEMETRY REPORT 04/27/2025 3:[address] [...] stage 5, GFR less than 15 ml/min ([facility]) HEMOGLOBIN A1C Routine 11/10/2024 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 Exam: XR ANKLE 3+ VW LEFT Date/Time of Exam: 05/31/2025 10:36 AM Reason For Exam: See Diagnosis. Diagnosis: Acute left ankle pain. Comparison: None Findings: No acute fracture or dislocation. The joint spaces are well-maintained. Mild diffuse soft tissue swelling. IMPRESSION: 1. No acute osseous abnormality. Narrative Procedure Note Maximilian Quigley MD - 05/31/2025 IMPRESSION: Please see below. Exam: XR ANKLE 3+ VW LEFT Date/Time of Exam: 05/31/2025 10:36 AM Reason For Exam: See Diagnosis. Diagnosis: Acute left ankle pain. Comparison: None Findings: No acute fracture or dislocation. The joint spaces are well-maintained. Mild diffuse soft tissue swelling. IMPRESSION: 1. No acute osseous abnormality. Duke Alarcon MD DIAGNOSTIC IMAGING ORDERA BLES Final Result * (ABNORMAL) [facility] MISCELLANEOUS TEST (05/31/2025 10:01 AM CDT) Pathologist [facility] AMPHETAMINES, ORAL FLUID NEGATIVE <10 ng/mL [facility] [place] [place] BARBITURATES, ORAL FLUID NEGATIVE <10 ng/mL [facility]/ [place] [facility] BENZODIAZEPINES, ORAL FLUID NEGATIVE <0.50 ng/mL [facility]/ [place] [facility] BUPRENORPHINE, ORAL FLUID NEGATIVE <0.10 ng/mL [facility]/ [place] [facility] COCAINE, ORAL FLUID NEGATIVE <5.0 ng/mL [facility]/ [place] FENTANYL, ORAL FLUID NEGATIVE <0.10 ng/mL [facility]/ [place] [facility] HEROINMETABOLITE, ORAL FLUID NEGATIVE <1.0 ng/mL [facility]/ [place] [facility] MARIJUANA, ORAL FLUID NEGATIVE <2.5 ng/mL [facility]/ [place] [facility] MDMA, ORAL FLUID NEGATIVE <10 ng/mL [facility]/ [place] [facility] MEPROBAMATE, ORAL FLUID NEGATIVE <2.5 ng/mL [facility] [place] [facility] METHADONE, ORAL FLUID NEGATIVE <5.0 ng/mL [facility]/ [place] [facility] NICOTINEMETABOLITE, ORAL FLUID NEGATIVE <5.0 ng/mL [facility] [place] [facility] OPIATES, ORAL FLUID NEGATIVE <2.5 ng/mL [facility]/ [place] [facility] PHENCYCLIDINE, ORAL FLUID NEGATIVE <10 ng/mL [facility]/ [place] [facility] TAPENTADOL, ORAL FLUID NEGATIVE <5.0 ng/mL [facility]/ [place] [facility] TRAMADOL, ORAL FLUID POSITIVE(A) <5.0 ng/mL [facility]/ [place] [facility] TRAMADOL CONFIRMATION, ORAL FLUID 198.1(H) <5.0 ng/mL [facility]/ [place] [facility] ZOLPIDEM, ORAL FLUID NEGATIVE <5.0 ng/mL [facility]/ [place] [facility] Comment: For additional information, please refer to http://education.[employer].Wikidot/faq/CHN044 (This link is being provided for informational/ educational purposes only.) This drug testing is for medical treatment only. Analysis was performed as non-forensic testing and these results should be used only by healthcare providers to render diagnosis or treatment, or to monitor progress of medical conditions. For assistance with interpreting these drug results, please contact a [facility] Specialist: [phone] ( ), M-F, 8am-6pm EST. These tests were developed and their analytical performance characteristics have been determined by [facility]. They have not been cleared or approved by the FDA. These assays have been validated pursuant to the CLIA regulations and are used for clinical purposes. ALCOHOL METABOLITE NEGATIVE <25 ng/mL [facility] Comment: For additional information, please refer to http://education.Cloudamize/faq/KFC595 (This link is being provided for informational/ educational purposes only.) This drug testing is for medical treatment only. Analysis was performed as non-forensic testing and these results should be used only by healthcare providers to render diagnosis or treatment, or to monitor progress of medical conditions. For assistance with interpreting these drug results, please contact a [facility]ist: [phone] ( ), M-F, 8am-6pm EST. These tests were developed and their analytical performance characteristics have been determined by [facility]. They have not been cleared or approved by the FDA. These assays have been validated pursuant to the CLIA regulations and are used for clinical purposes. Test Performed at: [facility] [address] [place] [address] Ricardo Purcell M.D.,PhD 05/31/2025 10:0 1 AM CDT 06/01/2025 4:00 AM CDT Narrative [facility] - 06/06/2025 6:13 PM CDT This unsolicited order was created by [facility] [employer] Name and Code for this order is: [id number] [[id number]] Duke Alarcon MD CHEMISTRY ORDERABLES Oliva l Result [facility] [phone] [facility]/[place] [address] [place] [address] * POLYSOMNOGRAPHY 4 OR MORE PARAMETERS WITH CPAP (05/31/2025) us Duke Alarcon MD SLEEP CENTER ORDERABLES F inal Result * MAGNESIUM LEVEL (05/24/2025 9:58 PM CDT) Only the most recent of4 resultswithin the time period is included. MAGNESIUM 2.6 1.6 - 2.6 mg/dL 05/24/2025 10:23 PM [facility] Blood BLOOD SPECIMEN / Unknown Collection / Unknown 05/24/2025 9:58 PM CDT 05/24/2025 10:04 PM CDT us Balwinder Briones DO CHEMISTRY ORDERABLES Final Resul t [facility] CLIA # [id number] [address] [place] [address] * (ABNORMAL) BASIC METABOLIC PANEL (05/24/2025 9:58 PM CDT) Only the most recent of5 resultswithin the time period is included. SODIUM 130(L) 136 - 145 mmol/L 05/24/2025 10:23 PM T [facility] POTASSIUM 6.6(HH) 3.5 - 5.1 mmol/L 05/24/2025 10:23 PM T [facility] CHLORIDE 92(L) 98 - 107 mmol/L 05/24/2025 10:23 PM [facility] CO2 21(L) 22 - 29 mmol/L 05/24/2025 10:23 PM [facility] CALCIUM 9.3 8.6 - 10.0 mg/dL 05/24/2025 10:23 PM [facility] BUN 79(H) 6 - 20 mg/dL 05/24/2025 10:23 PM CDT [facility] CREATININE 10.00(H) 0.67 - 1.17 mg/dL 05/24/2025 10:23 PM CDT [facility] GLUCOSE 78 74 - 99 mg/dL 05/24/2025 10:23 PM CDT [facility] GFR 6(L) >=60 mL/min/1.7 3 sq meter 05/24/2025 10:23 PM CDT [facility] Comment:eGFR calculated with 2020 CKD-EPI equation. Vegetarian diet, extremely high or low muscle mass, and may affect results. Cystatin C with Glomerular Filtration Rate is a suitable alternative for these patients. ANION GAP 17 5 - 20 mmol/L 05/24/2025 10:23 PM CDT [facility] Blood BLOOD SPECIMEN / Unknown Collection / Unknown 05/24/2025 9:58 PM CDT 05/24/2025 10:04 PM CDT us Balwindertanya Briones DO CHEMISTRY ORDERABLES Final Resul t Performing Organization Address City/[facility]/ZIP Co de Phone Number [facility] CLIA # [id number] [address] [place] [address] * POC GLUCOSE (05/24/2025 9:53 PM CDT) Only the most recent of29 resultswithin the time period is included. GLUCOSE POC 84 74 - 99 mg/dL 05/24/2025 9:53 PM CDT [facility] SPECIMEN SOURCE, GLUCOSE POC Whole Blood 05/24/2025 9:53 PM CDT [facility] Blood, whole 05/24/2025 9:53 PM CDT 05/24/2025 10:00 PM CDT us Carroll Angelo MD POINT OF CARE TESTING Fi nal Result Performing Organization Address City/[facility]/ZIP Co de Phone Number [facility] CLIA # [id number] [address] [place] [address] * EKG 12 lead (05/24/2025 6:02 PM CDT) Only the most recent of5 resultswithin the time period is included. Narrative Balwinder Briones DO - 05/24/2025 6:02 PM CDT Balwinder Briones DO 05/25/2025 6:26 AM EKG 12 lead Date/Time: 05/24/2025 6:02 PM Performed by: Balwinder Briones DO Authorized by: Carroll Angelo MD ECG interpreted by ED Physician in the absence of a employee benefits specialist: yes Rate: ECG rate: 85 ECG rate assessment: age appropriate Rhythm: Rhythm Origin: sinus Rhythm morphology: narrow [place]: QRS axis: Normal Blocks: AV: 1st Hypertrophy: : Possible left atrial enlargement. QRSTT: R wave transition: Late Comments: No specific changes compared to previous EKGs. us Carroll Angelo MD ECG ORDERABLES Final Re sult * (ABNORMAL) CBC WITH DIFFERENTIAL (05/24/2025 4:55 PM CDT) Only the most recent of9 resultswithin the time period is included. WBC 8.1 4.2 - 9.1 K/uL 05/24[facility]2025 5:[facility] 2.47(L) 4.63 - 6.08 M/uL 05/24/2025 5:10 PM [facility] HEMOGLOBIN 7.8(L) 13.7 - 17.5 g/dL 05/24/2025 5:10 PM [facility] HEMATOCRIT 23.0(L) 40.1 - 51.0 % 05/24/2025 5:10 PM [facility] MCV 93.1(H) 79.0 - 92.2 fL 05/24/2025 5:10 PM [facility] MCH 31.6 25.7 - 32.2 pg 05/24/2025 5:10 PM [facility] MCHC 33.9 32.3 - 36.5 g/dL 05/24/2025 5:10 PM [facility] RDW 14.7(H) 11.0 - 14.5 % 05/24/2025 5:10 PM [facility] RDW-STDEV 50.8 36.9 - 56.9 fL 05/24/2025 5:10 PM [facility] PLATELETS 243 130 - 400 K/uL 05/24/2025 5:10 PM [facility] MPV 11.0 10.0 - 14.8 fL 05/24/2025 5:10 PM [facility] NEUTROPHILS 72(H) 34 - 68 % 05/24/2025 5:10 PM [facility] LYMPHOCYTES 16(L) 22 - 53 % 05/24/2025 5:10 PM [facility] MONOCYTES 8 5 - 12 % 05/24/2025 5:10 PM [facility] EOSINOPHILS 2 1 - 7 % 05/24/2025 5:10 PM [facility] BASOPHILS 1 0 - 1 % 05/24/2025 5:10 PM [facility] IMMATURE GRANULOCYTES 0 % 05/24/2025 5:10 PM [facility] NEUTROPHIL ABSOLUTE 5.78(H) 1.78 - 5.38 K/uL 05/24/2025 5:10 PM [facility] LYMPHOCYTE ABSOLUTE 1.30 1.20 - 3.40 K/uL 05/24/2025 5:10 PM [facility] MONOCYTE ABSOLUTE 0.66 0.30 - 0.82 K/uL 05/24/2025 5:10 PM [facility] EOSINOPHIL ABSOLUTE 0.19 0.04 - 0.54 K/uL 05/24/2025 5:10 PM [facility] BASOPHILS ABSOLUTE 0.09(H) 0.01 - 0.08 K/uL 05/24/2025 5:10 PM [facility] IMMATURE GRANULOCYTES ABSOLUTE 0.03 K/uL 05/24/2025 5:10 PM [facility] Blood BLOOD SPECIMEN / Unknown Venipuncture / Unknown 05/24/2025 4:55 PM CDT 05/24/2025 5:07 PM CDT Carroll Angelo MD HEMATOLOGY ORDERABLES Fi nal Result [id number] [address] [place] [phone] * XR LUMBAR SPINE 2 OR 3 VW (05/24/2025 4:53 PM CDT) Anatomical Region Laterality Modality Spine Computed Radiogr aphy 05/24/2025 4:53 PM CDT Impressions 05/24/2025 5:49 PM CDT IMPRESSION: No acute osseous abnormality. Narrative 05/24/2025 5:49 PM CDT Exam: XR LUMBAR SPINE 2 OR 3 VW Date/Time of Exam: 05/24/2025 4:53 PM Reason For Exam: Low Back Pain. Diagnosis: See Reason for Exam. Comparison: 03/22/2024. Findings: There is redemonstration of postsurgical changes related to multilevel discectomy, lumbosacral spinal fusion and sacroiliac arthrodesis with stable appearance of the hardware. The vertebral body alignment appears anatomic. There is no definitive evidence of an acute fracture or compression deformity. There are moderate multilevel degenerative changes. A large amount of stool is present. Procedure Note Constantin Montenegro, DO - 05/24/2025 Exam: XR LUMBAR SPINE 2 OR 3 VW Date/Time of Exam: 05/24/2025 4:53 PM Reason For Exam: Low Back Pain. Diagnosis: See Reason for Exam. Comparison: 03/22/2024. Findings: There is redemonstration of postsurgical changes related to multilevel discectomy, lumbosacral spinal fusion and sacroiliac arthrodesis with stable appearance of the hardware. The vertebral body alignment appears anatomic. There is no definitive evidence of an acute fracture or compression deformity. There are moderate multilevel degenerative changes. A large amount of stool is present. IMPRESSION: No acute osseous abnormality. Carroll Angelo MD DIAGNOSTIC IMAGING ORDER OBEY Final Result * TELEMETRY REPORT (05/24/2025 3:53 AM CDT) Only the most recent of3 resultswithin the time period is included. us Provider Scanning ECG ORDERABLES Final Result * (ABNORMAL) CBC WITHOUT DIFFERENTIAL (05/22/2025 6:55 AM CDT) Only the most recent of2 resultswithin the time period is included. WBC 9.0 4.5 - 11.0 K/uL 05/22/2025 7:04 AM [facility] RBC 2.41(L) 4.60 - 6.20 M/uL 05/22/2025 7:04 AM [facility] HEMOGLOBIN 7.4(L) 14.0 - 18.0 g/dL 05/22/2025 7:04 AM [facility] HEMATOCRIT 23.1(L) 41.0 - 53.0 % 05/22/2025 7:04 AM [facility] MCV 95.9 84.0 - 103.0 fL 05/22/2025 7:04 AM [facility] MCH 30.7 27.0 - 34.0 pg 05/22/2025 7:04 AM [facility] MCHC 32.0 30.0 - 35.0 g/dL 05/22/2025 7:04 AM [facility] PLATELETS 200 140 - 440 K/uL 05/22/2025 7:04 AM [facility] MPV 10.9 8.9 - 12.8 fL 05/22/2025 7:04 AM [facility] RDW 15.3(H) 11.0 - 14.5 % 05/22/2025 7:04 AM [facility] RDW-STDEV 54.0 37.0 - 54.0 fL 05/22/2025 7:04 AM [facility] Blood Venipuncture / Unknown 05/22/2025 6:55 AM CDT 05/22/2025 7:00 AM CDT Pili Navarro MD HEMATOLOGY ORDERABLES Fi nal Result Performing Organization Address [facility] de Phone Number [facility] CLIA # [id number] [facility] [address] * VANCOMYCIN LEVEL RANDOM (05/22/2025 6:55 AM CDT) Only the most recent of3 resultswithin the time period is included. Pathologist [facility] VANCOMYCIN, RANDOM 15.2 5.0 - 50.0 ug/mL 05/22/2025 7:[address] [facility] Blood Venipuncture / Unknown 05/22/2025 6:55 AM CDT 05/22/2025 7:[address] [facility] - 05/22/2025 7:50 AM CDT Vancomycin Therapeutic Ranges: Vancomycin Trough: 10 - 20 mcg/mL Vancomycin Peak: 25 - 50 mcg/mL Pili Navarro MD CHEMISTRY ORDERABLES Fin al Result Performing Organization Address [facility] Co de Phone Number [facility] CLIA # [id number] [address] [place] [address] * (ABNORMAL) RENAL FUNCTION PANEL (05/22/2025 6:55 AM CDT) Only the most recent of5 resultswithin the time period is included. SODIUM 134(L) 136 - 145 mmol/L 05/22/2025 7:[address] [facility] POTASSIUM 6.2(HH) 3.5 - 5.1 mmol/L 05/22/2025 7:[address] [facility] CHLORIDE 99 98 - 107 mmol/L 05/22/2025 7:[address] [facility] CO2 22 22 - 29 mmol/L 05/22/2025 7:[address] [facility] CALCIUM 8.7 8.6 - 10.0 mg/dL 05/22/2025 7:[address] [facility] BUN 54(H) 6 - 20 mg/dL 05/22/2025 7:[address] [facility] CREATININE 7.04(H) 0.67 - 1.17 mg/dL 05/22/2025 7:[address] [facility] GLUCOSE 132(H) 74 - 99 mg/dL 05/22/2025 7:[address] [facility] ALBUMIN 3.2(L) 3.5 - 5.2 g/dL 05/22/2025 7:[address] [facility] PHOSPHORUS 6.6(H) 2.5 - 4.5 mg/dL 05/22/2025 7:[address] [facility] GFR 10(L) >=60 mL/min/1. 73 sq meter 05/22/2025 7:[address] [facility] Comment:eGFR calculated with 2020 CKD-EPI equation. Vegetarian diet, extremely high or low muscle mass, and may affect results. Cystatin C with Glomerular Filtration Rate is a suitable alternative for these patients. ANION GAP 13 9 - 20 mmol/L 05/22/2025 7:[address] [facility] Blood Venipuncture / Unknown 05/22/2025 6:55 AM CDT 05/22/2025 7:00 AM CDT us Uli Catherine MD CHEMISTRY ORDERABLES Final Result [facility] CLIA # [id number] [address] [place] [address] [phone] * (ABNORMAL) HEMOGLOBIN AND HEMATOCRIT (05/21/2025 11:21 AM CDT) HEMOGLOBIN 8.2(L) 14.0 - 18.0 g/dL 05/21/2025 11:[address] [facility] HEMATOCRIT 24.4(L) 41.0 - 53.0 % 05/21/2025 11:[address] [facility] Blood Venipuncture / Unknown 05/21/2025 11:21 AM CDT 05/21/2025 11:26 AM CDT Pili Navarro MD HEMATOLOGY ORDERABLES Fi nal Result [facility] CLIA # [id number] [address] * TRANSFUSE RED BLOOD CELLS (05/21/2025 10:16 AM CDT) Marcella Jung [facility] BLOOD TRANSFUSION ORDER OBEY Final Result * TYPE AND SCREEN (05/21/2025 5:08 AM CDT) ABO GROUP O 05/21/2025 7:23 AM CDT [facility] RH (D) TYPE Positive 05/21/2025 7:23 AM CDT [facility] ANTIBODY SCREEN Negative 05/21/2025 7:23 AM CDT [facility] [employer] [facility] Blood Venipuncture / Unknown 05/21/2025 5:08 AM CDT 05/21/2025 5:15 AM CDT Marcella JACOBSP BLOOD BANK ORDERABLES E dited Result - Final [facility] [employer] [facility] CLIA#[id number] [address] [place] [address], * PREPARE RED BLOOD CELLS (05/21/2025 4:32 AM CDT) COMPONENT TYPE [id number] [facility] [employer] [facility] COMPONENT IDENTIFICATION [id number] [facility] [place] [facility] ABO O [facility] [place] [facility] RH POS [facility] [facility] LAB[facility] SERVICES -- [place] CROSSMATCH Compatible [facility] -- [place] COMPONENT STATUS Transfused ME [facility] LABORATORY SERVICES -- [place] COMPONENT EXPIRATION DATE/TIME [id number] [facility] -- [place] COMPONENT CODING SYSTEM 5100 [facility] -- [place] VOLUME, BLOOD PRODUCT 350 [facility] -- [place] Other, specify 05/21/2025 4: 32 AM CDT us Marcella Jung BUYER LAB TRANSFUSION ORDERAB LES Edited Result - Final [facility] -- [place] CLIA#[id number] [address] [place] [address], * HEMODIALYSIS (05/20/2025 10:10 AM CDT) Narrative Angélica Ny MD - 05/20/2025 10:10 AM CDT Angélica Ny MD 05/20/2025 10:14 AM [facility] - Procedure Note Primary Research Test Engine Operator: Dr. Angélica Ny PROCEDURE: Intermittent Hemodialysis INDICATION: end stage renal disease Procedure: Utilizing the patient's RUE AVF as a vascular access, the patient was initiated on hemodialysis. Dialysis is planned for 4 hours. Blood flow of 400 ml per minute and Dialysate flow of 600 ml per minute were prescribed. The bath used was 2 mEq/L potassium, 3 mEq/L calcium, 140 mEq/L sodium and 35 mEq/L bicarbonate. UF goal: 5 L, BP stable. Revaclear 400 hollow fiber dialyzer was used. No heparin was used for anticoagulation. No complications have been encountered to this point. I was present during dialysis, and was available for the entirety of the dialysis treatment. # Compliant with frequency and duration of dialysis: yes Physical Exam: BP (!) 156/66 Pulse 71 Temp 97 F (36.1 C) (Temporal) Resp 15 Ht 6' (1.829 m) Wt 102.4 kg (225 lb 12 oz) SpO2 94% BMI 30.62 kg/m Resting in bed in NAD on RA Assesment and Plan: ESRD: on hemodialysis, per his TTS outpatient schedule. Will see on HD days while inpatient. Hypertension: improving. Ultrafiltration as manju on hemodialysis today. He has newly diagnosed LISET and has not yet had the fitting for CPAP machine. Continue on home BP medications Hyponatremia: with chronic kidney disease and volume excess. Will improve with ultrafiltration Hyperkalemia: On 2 K bath. Education regarding low potassium diet at outpatient hemodialysis unit. Has had weekly potassium checks. If remains > 5.5 will add Veltessa as outpatient. Angélica Ny MD [facility] 05/20/25, 10:11 AM us Juice Bashir NP DIALYSIS ORDERABLES Final Re sult * ECHO TRANSESOPHAGEAL W DOPPLER AND COLOR FLOW (05/19/2025 12:15 PM CDT) EJECTION FRACTION 45 INTERFACE SYSTEM 05/19/2025 8:54 AM CDT Narrative INTERFACE SYSTEM - 05/19/2025 9:57 AM CDT [facility] Cardiovascular Services Echocardiography Laboratory [address] [place] [id number] Transesophageal Echocardiography Patient: Hunter San Study ID: WINIFRED LILIAN Lino Gender: M : 1990 Age: 34 Room: [facility] Study 05/19/2025 Pt Inpatient Date: Status: Study 08:54:49 AM CSN #: [id number] Time: Ordering:Faye Sal Axle Inspector: Betzy Nogueira [facility] Indications and History: Endocarditis Acute/subacute bacterial. Risk factors: The patient is a current tobacco user. Hypertension. Summary and Conclusion: - Left ventricle: The cavity size is normal. Wall thickness is normal. Global systolic function is mildly reduced. The estimated ejection fraction is 45-50%. For Epic reporting: the left ventricular ejection fraction is 45%. No diagnostic regional wall motion abnormality identified. - Right ventricle: The cavity size is normal. Systolic function is normal. - Left atrium: There is no evidence of a thrombus in the atrial cavity or appendage. - Right atrium: There is no evidence of a thrombus in the atrial cavity or appendage. - Atrial septum: Agitated saline contrast study shows no hcosz-ki-ypor shunt. - Mitral valve: There is mild regurgitation. - Tricuspid valve: There is mild regurgitation. - Pulmonic valve: There is trivial to mild regurgitation. - Pericardium: A small pericardial effusion is identified. Procedure information: Comparison is made to the study of 12/04/2024. Study status: Routine. Consent: The risks, benefits, and alternatives to the procedure were explained to the patient and consent was obtained. Procedure: The patient arrived at the laboratory in the fasting state. Intravenous access was obtained. Surface ECG leads, automatic cuff blood pressure measurements, and pulse oximetric signals were monitored. Moderate sedation was administered by nursing staff. Transesophageal echocardiography was performed. Topical anesthesia was obtained using benzocaine spray and viscous lidocaine. An adult multiplane transesophageal probe was inserted by the attending employee benefits specialist without difficulty. Image quality was adequate. Intravenous contrast (agitated saline) was administered. Study completion: The patient tolerated the procedure well. There were no complications. Administered medications: Midazolam, 3mg. Fentanyl, 75mcg. Sedation began 900 and ended 913. Study components: 2D, 3D, complete spectral Doppler, color Doppler, and agitated saline. Height: 182.9cm. Height: 72in. Weight: 94.5kg. Weight: 208.3lb. BMI: 28.2kg/m^2. BSA: 2.21m^2. Blood pressure: 133/89 Study date: 05/19/2025. Study time: 08:54 AM. Location: Special procedures room. Cardiac Anatomy: LEFT VENTRICLE: The cavity size is normal. Wall thickness is normal. Global systolic function is mildly reduced. The estimated ejection fraction is 45-50%. For Epic reporting: the left ventricular ejection fraction is 45%. No diagnostic regional wall motion abnormality identified. The ratio of systolic to diastolic pulmonary vein flow is reduced (diastolic predominant). RIGHT VENTRICLE: The cavity size is normal. Systolic function is normal. LEFT ATRIUM: The atrium is normal in size. There is no evidence of a thrombus in the atrial cavity or appendage. Appendage: The appendage is normal-sized. Emptying velocity is normal. RIGHT ATRIUM: The atrium is normal in size. There is no evidence of a thrombus in the atrial cavity or appendage. ATRIAL SEPTUM: No obvious PFO or ASD identified by 2D imaging and color Doppler. Agitated saline contrast study shows no kxpgb-oj-cmle shunt. AORTIC VALVE: The valve is trileaflet. The leaflets are normal thickness. Cusp separation is normal. There is no significant regurgitation. MITRAL VALVE: Structurally normal valve. Leaflet separation is normal. There is mild regurgitation. TRICUSPID VALVE: Structurally normal valve. Leaflet separation is normal. There is mild regurgitation. PULMONIC VALVE: The valve appears to be grossly normal. There is trivial to mild regurgitation. PERICARDIUM: A small pericardial effusion is identified. AORTA: Aorta: No evidence of dissection or atheroma. Aortic root: The root is normal-sized. Ascending aorta: The vessel is normal-sized. Aortic arch: The vessel is normal-sized. Descending aorta: The vessel is normal-sized. PULMONARY ARTERY: The main pulmonary artery is normal-sized. Measurements Ascending aorta Value AAo AP diam, S 2.9 cm AAo AP diam/bsa, S 1.3 cm/m^2 Legend: (L) and (H) ronny values outside specified reference range. [facility] Echo Labs are accredited with the Intersocietal Accreditation Commission - Echocardiography. Prepared and Electronically Authenticated Hayden Nava MD Confirmed 05/19/2025 09:57 Procedure Note Hayden Nava MD - 05/19/2025 [facility] Cardiovascular Services Echocardiography Laboratory [address] [place] [address] Transesophageal Echocardiography Patient: Hunter San Study ID: HUNTER Lino Gender: M : 1990 Age: 34 Room: [facility] Study 05/19/2025 Inpatient Date: Status: Study 08:54:49 AM [facility] #: [id number] Time: Ordering:Faye Sal Axle Inspector: Betzy Nogueira [facility] Indications and History: Endocarditis Acute/subacute bacterial.Risk factors: The patient is a current tobacco user. Hypertension. Summary and Conclusion: - Left ventricle: The cavity size is normal. Wall thickness is normal.Global systolic function is mildly reduced. The estimated ejection fractionis 45-50%. For Epic reporting: the left ventricular ejection fraction is45%. No diagnostic regional wall motion abnormality identified. - Right ventricle: The cavity size is normal. Systolic function isnormal. - Left atrium: There is no evidence of a thrombus in the atrial cavityor appendage. - Right atrium: There is no evidence of a thrombus in the atrial cavityor appendage. - Atrial septum: Agitated saline contrast study shows no zfkge-ib-fdluovayl. - Mitral valve: There is mild regurgitation. - Tricuspid valve: There is mild regurgitation. - Pulmonic valve: There is trivial to mild regurgitation. - Pericardium: A small pericardial effusion is identified. Procedure information: Comparison is made to the study of 12/04/2024.Study status: Routine. Consent: The risks, benefits, and alternatives tothe procedure were explained to the patient and consent was obtained.Procedure: The patient arrived at the laboratory in the fasting state. Intravenousaccess was obtained. Surface ECG leads, automatic cuff blood pressuremeasurements, and pulse oximetric signals were monitored. Moderate sedation was administered by nursing staff. Transesophageal echocardiography wasperformed. Topical anesthesia was obtained using benzocaine spray and viscouslidocaine. An adult multiplane transesophageal probe was inserted by the attending employee benefits specialist without difficulty. Image quality was adequate. Intravenous contrast (agitated saline) was administered. Study completion: Thepatient tolerated the procedure well. There were no complications. Administered medications: Midazolam, 3mg. Fentanyl, 75mcg. Sedation began 900 andended 913. Study components: 2D, 3D, complete spectral Doppler,color Doppler, and agitated saline. Height: 182.9cm. Height: 72in.Weight: 94.5kg. Weight: 208.3lb. BMI: 28.2kg/m^2. BSA: 2.21m^2. Blood pressure: 133/89 Study date: 05/19/2025. Study time: 08:54 AM. Location: Special procedures room. Cardiac Anatomy: LEFT VENTRICLE: The cavity size is normal. Wall thickness is normal.Global systolic function is mildly reduced. The estimated ejection fraction is 45-50%. For Epic reporting: the left ventricular ejection fraction is 45%.No diagnostic regional wall motion abnormality identified. The ratio ofsystolic to diastolic pulmonary vein flow is reduced (diastolic predominant). RIGHT VENTRICLE: The cavity size is normal. Systolic function isnormal. LEFT ATRIUM: The atrium is normal in size. There is no evidence of a thrombus in the atrial cavity or appendage. Appendage: The appendage is normal-sized. Emptying velocity is normal. RIGHT ATRIUM: The atrium is normal in size. There is no evidence of a thrombus in the atrial cavity or appendage. ATRIAL SEPTUM: No obvious PFO or ASD identified by 2D imaging and color Doppler. Agitated saline contrast study shows no fqkhp-fl-ytil shunt. AORTIC VALVE: The valve is trileaflet. The leaflets are normalthickness. Cusp separation is normal. There is no significant regurgitation. MITRAL VALVE: Structurally normal valve. Leaflet separation isnormal. There is mild regurgitation. TRICUSPID VALVE: Structurally normal valve. Leaflet separation isnormal. There is mild regurgitation. PULMONIC VALVE: The valve appears to be grossly normal. There istrivial to mild regurgitation. PERICARDIUM: A small pericardial effusion is identified. AORTA: Aorta: No evidence of dissection or atheroma. Aortic root: The root is normal-sized. Ascending aorta: The vessel is normal-sized. Aortic arch: The vessel is normal-sized. Descending aorta: The vessel is normal-sized. PULMONARY ARTERY: The main pulmonary artery is normal-sized. Measurements Ascending aorta Value AAo AP diam, S 2.9 cm AAo AP diam/bsa, S 1.3 cm/m^2 Legend: (L) and (H) ronny values outside specified reference range. [facility] Echo Labs are accredited with theIntersocietal Accreditation Commission - Echocardiography. Prepared and Electronically Authenticated Hayden Nava MD Confirmed 05/19/2025 09:57 Faye Sal [facility] US ORDERABLES Final Resu lt Performing Organization Address City/[facility]/ZIP Co de Phone Number INTERFACE SYSTEM Refer to clinic/hospital department * (ABNORMAL) PHOSPHORUS (05/19/2025 5:26 AM CDT) PHOSPHORUS 5.5(H) 2.5 - 4.5 mg/dL 05/19/2025 7:06 AM CDT [facility] [employer] [facility] Blood Venipuncture / Unknown 05/19/2025 5:26 AM CDT 05/19/2025 5:31 AM CDT Uli Catherine MD CHEMISTRY ORDERABLES Final Result Performing Organization Address [facility] Co de Phone Number [facility] [employer] [facility] CLIA # [id number] [address] [place] [address] [place], [place] [id number] * (ABNORMAL) COMPREHENSIVE METABOLIC PANEL (05/19/2025 5:26 AM CDT) Only the most recent of4 resultswithin the time period is included. SODIUM 129(L) 136 - 145 mmol/L 05/19/2025 6:55 AM CDT [facility] [employer] [facility] POTASSIUM 5.0 3.5 - 5.1 mmol/L 05/19/2025 6:55 AM CDT [facility] [employer] [facility] CHLORIDE 96(L) 98 - 107 mmol/L 05/19/2025 6:55 AM CDT [facility] [employer] [facility] CO2 25 22 - 29 mmol/L 05/19/2025 6:55 AM [facility] CALCIUM 7.9(L) 8.6 - 10.0 mg/dL 05/19/2025 6:55 AM [facility] BUN 30(H) 6 - 20 mg/dL 05/19/2025 6:55 AM [facility] CREATININE 4.54(H) 0.67 - 1.17 mg/dL 05/19/2025 6:55 AM [facility] GLUCOSE 127(H) 74 - 99 mg/dL 05/19/2025 6:55 AM [facility] TOTAL PROTEIN 5.4(L) 6.4 - 8.3 g/dL 05/19/2025 6:55 AM [facility] ALBUMIN 2.8(L) 3.5 - 5.2 g/dL 05/19/2025 6:55 AM [facility] BILIRUBIN TOTAL 0.2 0.0 - 1.0 mg/dL 05/19/2025 6:55 AM [facility] ALKALINE PHOSPHATASE 65 40 - 129 U/L 05/19/2025 6:55 AM [facility] AST 9(L) 10 - 50 U/L 05/19/2025 6:55 AM [facility] ALT 5 <=50 U/L 05/19/2025 6:55 AM [facility] GFR 16(L) >=60 mL/min/1. 73 sq meter 05/19/2025 6:55 AM [facility] Comment:eGFR calculated with 2020 CKD-EPI equation. Vegetarian diet, extremely high or low muscle mass, and may affect results. Cystatin C with Glomerular Filtration Rate is a suitable alternative for these patients. ANION GAP 8(L) 9 - 20 mmol/L 05/19/2025 6:55 AM [facility] Blood Venipuncture / Unknown 05/19/2025 5:26 AM CDT 05/19/2025 5:31 AM T us Jose Manuel Bills MD CHEMISTRY ORDERABLES Final Result Performing Organization Address City/[facility]/ZIP Co de Phone Number [facility] CLIA # [id number] [id number] [place] [address] * BLOOD CULTURE (05/18/2025 1:44 PM CDT) Only the most recent of4 resultswithin the time period is included. BLOOD CULTURE No growth 05/23/2025 3:[address] [facility] Blood (Peripheral) Venipuncture / Unknown 05/18/2025 1:44 PM CDT 05/18/2025 2:44 PM CDT us Pili Navarro MD MICROBIOLOGY - GENERAL O RDERABLES Final Result Performing Organization Address [facility] Co de Phone Number [facility] CLIA # [id number] [address] [address] [place] [address] * HEMODIALYSIS (05/17/2025 12:20 PM CDT) Narrative [facility] - 05/17/2025 12:20 PM CDT Tk Mcclelland MD 05/17/2025 1:01 PM [facility] - Procedure Note Primary Research Test Engine Operator: Dr. Angélica Ny PROCEDURE: Intermittent Hemodialysis INDICATION: end stage renal disease Procedure: Utilizing the patient's RUE AVF as a vascular access, the patient was initiated on hemodialysis. Dialysis is planned for 4 hours. Blood flow of 400 ml per minute and Dialysate flow of 600 ml per minute were prescribed. The bath used was 2 mEq/L potassium, 3 mEq/L calcium, 140 mEq/L sodium and 35 mEq/L bicarbonate. UF goal: 4L, BP stable. Revaclear 400 hollow fiber dialyzer was used. No heparin was used for anticoagulation. No complications have been encountered to this point. I was present during dialysis, and was available for the entirety of the dialysis treatment. # Compliant with frequency and duration of dialysis: yes Physical Exam: BP 135/75 Pulse 72 Temp (!) 95.8 F (35.4 C) Resp 11 Ht 6' (1.829 m) Wt 94.9 kg (209 lb 3.5 oz) SpO2 96% BMI 28.37 kg/m Resting comfortably in chair Assesment and Plan: ESRD: on hemodialysis, missed his last treatment, run today then resume tomorrow per his [facility] outpatient schedule. Will see on HD days while inpatient. Hypertension: improved BP 130s/70. Ultrafiltration 4L on hemodialysis today. Hyponatremia: with chronic kidney disease and volume excess. Will improve with ultrafiltration Hyperkalemia: running on 2k bath. No further treatment indicated. Juice Bashir NP [facility] 05/17/25, 12:21 PM Juice Bashir NP DIALYSIS ORDERABLES Final Re sult [facility] CLIA # [id number] [address] [place] [address] * SPUTUM CULTURE WITH GRAM STAIN (05/17/2025 12:06 AM CDT) CULTURE Suggest appropriate recollection and resubmit. 05/17/2025 1:[address] [facility] GRAM STAIN Smear contains >/=10 squamous epithelial cells per low power field 05/17/2025 1:[address] [facility] Comment:Smear contains >/=10 squamous epithelial cells per low power field suggestive of a poor quality specimen, culture not performed. Recollect if clinically indicated. Sputum COUGHED SPUTUM SPECIMEN / Unknown Collection / Unknown 05/17/2025 12:06 AM CDT 05/17/2025 12:12 AM CDT Narrative [facility] LABORATORY [facility] - 05/17/2025 1:40 AM CDT Unacceptable quality for culture. Contacted Олег Crater (ED) by PILI BOSTON on 05/17/2025 at 1:37 AM with Secure Chat acknowledgement. us Uli Catherine MD MICROBIOLOGY - GENERAL ORD ERABLES Final Result Performing Organization Address [facility] Co de Phone Number [facility] CLIA # [id number] [address] [place], [place] [address] * BLOOD CULTURE MRSA/MSSA PCR PANEL (05/16/2025 11:51 PM CDT) Pathologist [facility] MRSA/MSSA PCR No Staph aureus detected No Staph aureus detected 05/17/2025 7:[address] [facility] Blood (Peripheral) Venipuncture / Unknown 05/16/2025 11:51 PM CDT 05/17/2025 12:[address] [facility] - 05/17/2025 7:31 PM CDT This test is intended for the detection of Staphylococcus aureus (SA) and methicillin-resistant Staphylococcus aureus (MRSA) DNA directly from positive blood cultures. This test was developed and its performance characteristics determined by [facility]. It has not been cleared by U.S. Food and Drug Administration. The FDA has determined that such clearance or approval is not necessary. This test is used for clinical purposes. It should not be regarded as investigational or for research. This laboratory is certified under the Clinical Laboratory Improvement Amendments of 1988 (CLIA-88) as qualified to perform high complexity clinical laboratory testing. us Juan Jose Conn DO MICROBIOLOGY - GENERAL ORDERABLE S Final Result Performing Organization Address [facility] Co de Phone Number [facility] CLIA # [id number] [address] [place] [address] * (ABNORMAL) TROPONIN 6 HR, 5TH GEN (05/16/2025 11:51 PM CDT) Only the most recent of2 resultswithin the time period is included. TROPONIN T, 6 HR 5TH GEN 273(HH) <=15 ng/L 05/17/2025 12:[address] [facility] DELTA 6HR TROPONIN T % 8 See Interp. % 05/17/2025 12:[address] [facility] Blood Venipuncture / Unknown 05/16/2025 11:51 PM CDT 05/17/2025 12:08 AM CDT Narrative [facility] LABORATORY [facility] - 05/17/2025 12:55 AM CDT Troponin elevated. Delta not changing. us Noor Ahmed DO CHEMISTRY ORDERABLES Final Resul t Performing Organization Address City/[facility]/ZIP Co de Phone Number [facility] CLIA # [id number] [address] [address] [place] [address] * LACTIC ACID (05/16/2025 11:51 PM CDT) LACTIC ACID 1.3 <=2.0 mmol/L 05/17/2025 12:[address] [facility] Blood Venipuncture / Unknown 05/16/2025 11:51 PM CDT 05/17/2025 12:03 AM CDT us Noor Ahhemanth DO CHEMISTRY ORDERABLES Final Resul t Performing Organization Address [facility] Co de Phone Number [facility] CLIA # [id number] [address] [address] [place] [address] * CTA CHEST W AND/OR WO CONTRAST (05/16/2025 8:53 PM CDT) Anatomical Region Laterality Modality Chest Computed Tomogra phy 05/16/2025 8:48 PM CDT Impressions 05/16/2025 10:15 PM CDT IMPRESSION: 1. No PE identified. PE cannot be evaluated beyond the segmental level due to the limitations above. 2. Small left effusion with adjacent left basilar groundglass airspace opacification. Additionally there is mild septal prominence seen and findings may represent changes of pulmonary edema/volume overload. 3. Gynecomastia. MACRO: None Narrative 05/16/2025 10:15 PM CDT EXAMINATION: CTA CHEST W AND/OR WO CONTRAST CLINICAL HISTORY: ASSOCIATED DIAGNOSIS: Pulmonary embolism (PE) suspected, low to intermediate prob, positive D-dimer ORDERING PROVIDER: JUAN JOSE ARMANDO NOTE: COMPARISON: None TECHNIQUE: Axial images of the chest were obtained from above the lung apices through the level of the adrenal glands during the bolus administration of intravenous contrast. Multiplanar and 3D maximum intensity projection reformulation's were created from the raw CT data which were interpreted in conjunction with the axial images to render the findings listed below. Before infusion of intravenous contrast, radiology personnel investigated the possibility of an allergic history and of any history of reaction to iodinated contrast material. INTRA-PROCEDURE MEDS: IOPAMIDOL 61 % INTRAVENOUS SOLUTION (MULTI-DOSE BULK PACK) Given:87 mL FINDINGS: Exam Quality: Overall exam quality is excellent. Pulmonary arterial enhancement is adequate, the breath hold is optimal, and there are significant artifacts impacting image quality. Pulmonary Arteries: There are no filling defects within the pulmonary arterial system to suggest pulmonary embolus, to the segmental level. Cardiovasculature: Unremarkable Mediastinum/Pericardium: Unremarkable Pleura: Small left effusion. Septal prominence is seen most pronounced at the lung bases. Central Airways: Widely patent. Lungs: Minimal groundglass airspace opacification. Nodules: 4 millimeter right lower lobe nodule axial image 37. No nodules are present that require follow up. Lymph Nodes: No thoracic lymphadenopathy is evident. Visualized musculoskeletal structures: No acute fracture or destructive osseous lesion is identified. Included images of the upper abdomen: Unremarkable Gynecomastia. Mild body wall edema. Procedure Note Derian Cortes MD - 05/16/2025 EXAMINATION: CTA CHEST W AND/OR WO CONTRAST CLINICAL HISTORY: ASSOCIATED DIAGNOSIS: Pulmonary embolism (PE) suspected, low to intermediate prob, positive D-dimer ORDERING PROVIDER: JUAN JOSE CONN TECHNABDIRIZAK NOTE: COMPARISON: None TECHNIQUE: Axial images of the chest were obtained from above the lung apices through the level of the adrenal glands during the bolus administration of intravenous contrast. Multiplanar and 3D maximum intensity projection reformulation's were created from the raw CT data which were interpreted in conjunction with the axial images to render the findings listed below. Before infusion of intravenous contrast, radiology personnel investigated the possibility of an allergic history and of any history of reaction to iodinated contrast material. INTRA-PROCEDURE MEDS: IOPAMIDOL 61 % INTRAVENOUS SOLUTION (MULTI-DOSE BULK PACK) Given:87 mL FINDINGS: Exam Quality: Overall exam quality is excellent. Pulmonary arterial enhancement is adequate, the breath hold is optimal, and there are significant artifacts impacting image quality. Pulmonary Arteries: There are no filling defects within the pulmonary arterial system to suggest pulmonary embolus, to the segmental level. Cardiovasculature: Unremarkable Mediastinum/Pericardium: Unremarkable Pleura: Small left effusion. Septal prominence is seen most pronounced at the lung bases. Central Airways: Widely patent. Lungs: Minimal groundglass airspace opacification. Nodules: 4 millimeter right lower lobe nodule axial image 37. No nodules are present that require follow up. Lymph Nodes: No thoracic lymphadenopathy is evident. Visualized musculoskeletal structures: No acute fracture or destructive osseous lesion is identified. Included images of the upper abdomen: Unremarkable Gynecomastia. Mild body wall edema. IMPRESSION: 1. No PE identified. PE cannot be evaluated beyond the segmental level due to the limitations above. 2. Small left effusion with adjacent left basilar groundglass airspace opacification. Additionally there is mild septal prominence seen and findings may represent changes of pulmonary edema/volume overload. 3. Gynecomastia. MACRO: None us Noor [facility] DO CT ORDERABLES Final Result * (ABNORMAL) TROPONIN 2 HR, 5TH GEN (05/16/2025 8:16 PM CDT) Only the most recent of2 resultswithin the time period is included. TROPONIN T, 2 HR 5TH GEN 261(HH) <=15 ng/L 05/16/2025 9:13 PM CDT [facility] [employer] [facility] DELTA 2HR TROPONIN T % 3 See Interp. % 05/16/2025 9:[address] [facility] Blood Venipuncture / Unknown 05/16/2025 8:16 PM CDT 05/16/2025 8:33 PM CDT Narrative [facility] - 05/16/2025 9:13 PM CDT Troponin elevated. Delta not changing. us Noor Ahmed DO CHEMISTRY ORDERABLES Final Resul t Performing Organization Address [facility] de Phone Number [facility] [employer] [facility] CLIA # [id number] [address] [address] * (ABNORMAL) TROPONIN BASELINE, 5TH GEN (05/16/2025 6:12 PM CDT) Only the most recent of3 resultswithin the time period is included. TROPONIN T, BASELINE 5TH GEN 253(HH) <=15 ng/L 05/16/2025 7:04 PM CDT [facility] [employer] [facility] Blood Venipuncture / Unknown 05/16/2025 6:12 PM CDT 05/16/2025 6:28 PM CDT Narrative [facility] [employer] [facility] - 05/16/2025 7:04 PM CDT Troponin elevated. us Noor [facility] DO CHEMISTRY ORDERABLES Final Resul t Performing Organization Address [facility] de Phone Number [facility] [employer] [facility] CLIA # [id number] [address] [address] * XR CHEST PA OR AP 1 VW (05/16/2025 1:14 PM CDT) Only the most recent of3 resultswithin the time period is included. Anatomical Region Laterality Modality Chest Computed Radiogr aphy 05/16/2025 1:14 PM CDT Impressions 05/16/2025 1:19 PM CDT IMPRESSION: No acute cardiopulmonary process on this single view. Narrative 05/16/2025 1:19 PM CDT XR CHEST PA OR AP 1 VW Reason For Exam: Chest Pain. Diagnosis: Hypertensive urgency. COMPARISON: None FINDINGS: Cardiomediastinal silhouette is within normal limits. No focal consolidation, large pleural effusion, or pneumothorax is seen. No acute osseous abnormality is appreciated. Procedure Note Rajinder Schofield MD - 05/16/2025 XR CHEST PA OR AP 1 VW Reason For Exam: Chest Pain. Diagnosis: Hypertensive urgency. COMPARISON: None FINDINGS: Cardiomediastinal silhouette is within normal limits. No focal consolidation, large pleural effusion, or pneumothorax is seen. No acute osseous abnormality is appreciated. IMPRESSION: No acute cardiopulmonary process on this single view. Fili Shah DO DIAGNOSTIC IMAGING ORDERABLES Final Result * (ABNORMAL) BRAIN NATRIURETIC PEPTIDE, BNP OR PROBNP (05/16/2025 1:03 PM CDT) Only the most recent of3 resultswithin the time period is included. PROBNP, N TERMINAL 24,063(H) 0 - 125 pg/mL 05/16/2025 1:30 PM CDT [facility] Comment: INTERPRETIVE COMMENT based on diagnosis: [...] years: >1800 pg/mL Blood Venipuncture / Unknown 05/16/2025 1:03 PM CDT 05/16/2025 1:09 PM CDT Fili Shah DO CHEMISTRY ORDERABLES Final Re sult [facility] CLIA # [id number] [address] [place] [address] * LIPASE (05/16/2025 1:03 PM CDT) Only the most recent of2 resultswithin the time period is included. LIPASE 21 13 - 60 U/L 05/16/2025 1:30 PM CDT [facility] Blood Venipuncture / Unknown 05/16/2025 1:03 PM CDT 05/16/2025 1:09 PM CDT Fili Shah DO CHEMISTRY ORDERABLES Final Re sult Performing Organization Address [facility]/ZIP Co de Phone Number [facility] CLIA # [id number] [address] [place] [address] * PT AND APTT (05/16/2025 12:34 PM CDT) PROTIME 12.5 12.1 - 14.3 Seconds 05/16/2025 12:56 PM CDT [facility] INR 0.9 0.9 - 1.1 05/16/2025 12:56 PM CDT [facility] PTT 34.1 25.1 - 35.4 seconds 05/16/2025 12:56 PM CDT [facility] Blood Venipuncture / Unknown 05/16/2025 12:34 PM CDT 05/16/2025 12:42 PM CDT Fili hSah DO HEMATOLOGY ORDERABLES Final R esult Performing Organization Address [facility]/ZIP Co de Phone Number [facility] CLIA # [id number] [address] [place] [address] * (ABNORMAL) D-DIMER (05/16/2025 12:34 PM CDT) D-DIMER QUANT 1.63(H) <0.50 ug/mL FEU 05/16/2025 1:29 PM CDT [facility] Blood Venipuncture / Unknown 05/16/2025 12:34 PM CDT 05/16/2025 12:42 PM CDT Narrative [facility] - 05/16/2025 1:29 PM CDT D-Dimer assay cutoff value for exclusion of DVT and/or PE is <0.50 ug/mL FEU. us Fili Shah DO HEMATOLOGY ORDERABLES Final R esult [facility] # [id number] [address] [place] [address] * PROTIME-INR (05/15/2025) ABSTRACTED PROTIME 13.7 ABSTRACTED INR 0.98 Blood 05/15/2025 us Abstract Provider HEMATOLOGY ORDERABLES Final Re sult * CT HEAD WO CONTRAST (04/27/2025 2:05 [...] grossly clear. IMPRESSION: No acute intracranial findings. us Ben Porter MD CT ORDERABLES Final Result * Critical Care (04/26/2025 5:25 PM CDT) [...] DO PROCEDURE/MINOR SURGICAL ORDE RABLES Final Result * (ABNORMAL) C-REACTIVE PROTEIN (04/26/2025 10:45 AM CDT) Pathologist [facility] CRP 6.7(H) <5.0 mg/L 04/26/2025 11:32 AM CDT [facility] Blood BLOOD SPECIMEN / Unknown Venipuncture / Unknown 04/26/2025 10:45 AM CDT 04/26/2025 11:00 AM CDT us Kelsea Dailey MD CHEMISTRY ORDERABLES Final Resu lt [id number] [address] [place] [address] * (ABNORMAL) URINALYSIS MICROSCOPY ONLY (04/11/2025 4:42 PM CDT) WBC UA 0-2 0 - 2 /hpf 04/11/2025 5:08 PM CDT [facility] RBC UA 6-10(A) 0 - 2 /hpf 04/11/2025 5:08 PM CDT [facility] BACTERIA UA Negative Negative /hpf 04/11/2025 5:08 PM CDT [facility] EPITHELIAL CELLS, URINE 0-5 0 - 5 /hpf 04/11/2025 5:08 PM CDT [facility] HYALINE CAST 6-10(A) None Seen, 0-2 /lpf 04/11/2025 5:08 PM CDT [facility] Urine URINE SPECIMEN OBTAINED BY CLEAN CATCH PROCEDURE / Unknown Collection / Unknown 04/11/2025 4:42 PM CDT 04/11/2025 4:53 PM CDT Kelsea Dailey MD URINE ORDERABLES Final Result [facility] CLIA # [id number] [address] [place] [address] * (ABNORMAL) URINALYSIS WITH REFLEX MICROSCOPIC (04/11/2025 4:42 PM CDT) COLOR UA Yellow Pale to Dark Yellow 04/11/2025 5:08 PM T [facility] CLARITY UA Clear Clear 04/11/2025 5:08 PM T [facility] SPECIFIC GRAVITY UA 1.020 1.003 - 1.035 04/11/2025 5:08 PM [facility] PH UA 7.5 5.0 - 8.0 04/11/2025 5:08 PM [facility] LEUKOCYTE ESTERASE UA Negative Negative 04/11/2025 5:08 PM [facility] NITRITE UA Negative Negative 04/11/2025 5:08 PM T [facility] PROTEIN UA 3+(A) Negative 04/11/2025 5:08 PM [facility] GLUCOSE UA 2+(A) Negative 04/11/2025 5:08 PM [facility] KETONES UA Negative Negative 04/11/2025 5:08 PM [facility] UROBILINOGEN UA 0.2 <2.0 mg/dL 5:08 PM [facility] BILIRUBIN UA Negative Negative 04/11/2025 5:08 PM CDT [facility] BLOOD UA 2+(A) Negative 04/11/2025 5:08 PM CDT [facility] Urine URINE SPECIMEN OBTAINED BY CLEAN CATCH PROCEDURE / Unknown Collection / Unknown 04/11/2025 4:42 PM CDT 04/11/2025 4:53 PM CDT Kelsea Dailey MD URINE ORDERABLES Final Result [facility] CLIA # [id number] [address] [place] [address] * US DIALYSIS ACCESS IMAGING (03/19/2025 2:25 PM CDT) Anatomical Region Laterality Modality Upper Extremity Ultrasound 03/19/2025 2:07 PM CDT Narrative 03/19/2025 8:22 PM CDT [facility] [address] [place] [address] [place] [address] Noninvasive Vascular Lab Upper Extremity Hemodialysis Access Follow-up Evaluation Patient: Hunter San Study ID: US DIALYSIS ACCE Gender: M : 1990 Age: 34 Room: Height: Weight: BSA: Pt status: Outpatient Study Date: 03/19/2025 Study Time: 02:07:00 PM BSA: Ordering: Amy Null MD Interpreting:Azucena Abebe Axle Inspector: Omkar Zuniga Indications: CKD. Summary Impression: Study [...] - Graft- outflow: - outflow 0.74m/sec 1179.9ml/min [facility] is accredited with the Intersocietal Commission for the Accreditation of Vascular Laboratories (ICAVL) Prepared and Electronically Authenticated Azucena Abebe Confirmed 03/19/2025 20:22 Procedure Note Azucena Abebe DO - 03/19/2025 [facility] [address] [place] [address] Noninvasive Vascular Lab Upper Extremity Hemodialysis Access Follow-up Evaluation Patient: Hunter San Study ID: US DIALYSIS ACCE Gender: M : 1990 Age: 34 Room: Height: Weight: BSA: Pt status: Outpatient Study Date: 03/19/2025 Study Time: 02:07:00 PM BSA: Ordering: Amy Null MD Interpreting:Azucena Abebe Axle Inspector: Zuniga, Omkar Indications: CKD. Summary Impression: Study demonstrates a [...] - Graft- proximal anastomosis: - proximal anastomosis 5.28m/djm6661.7ml/min - Graft- proximal graft: - proximal graft 2.95m/sec 6.60cm 1703.4ml/min3.2mm - Graft- mid graft: - mid graft 1.28m/sec 10.20cm 1473.84ml/min 2.3mm - Graft- distal graft: - distal graft 0.66m/sec 8.00cm 1298.7ml/min2.9mm - Graft- outflow: - outflow 0.74m/sec 1179.9ml/min [facility] is accredited withthe Intersocietal Commission for the Accreditation of Vascular Laboratories (ICAVL) Prepared and Electronically Authenticated Azucena Abebe Confirmed 03/19/2025 20:22 us Amy Null MD ORDERABLES Final Result * (ABNORMAL) HEMOGLOBIN A1C (11/10/2024 2:22 PM ASSISTANT HOUSEKEEPING MANAGER) Pathologist [facility] HEMOGLOBIN A1C 10.5(H) <5.7 % of total Hgb [facility] Comment: For someone without known diabetes, [...] [facility] Comment: Test Performed at: [facility] [id number] [address] [place] [id number] Luz Lang MD Blood 11/10/2024 2:22 PM ASSISTANT HOUSEKEEPING MANAGER 11/11/2024 4:34 AM ASSISTANT HOUSEKEEPING MANAGER us Roberta Kennedy INTERNAL SECURITY MANAGER CHEMISTRY ORDERABLES Final Res ult [facility] [phone] [facility] [employer] Management[employer]orio [address] [address] [place] [phone] * CT ABDOMEN PELVIS WO CONTRAST (08/07/2024 [...] 357(H) <200 mg/dL 07/14/2024 5:49 AM CDT [facility] TRIGLYCERIDE 305(H) <150 mg/dL 07/14/2024 5:[address] [facility] HDL 40 40 - 59 mg/dL 07/14/2024 5:[address] [facility] LDL CALCULATED 256(H) <100 mg/dL 07/14/2024 5:[address] [facility] NON-HDL CHOLESTEROL 317(H) <130 mg/dL 07/14/2024 5:[address] [facility] Blood Venipuncture / Unknown 07/14/2024 4:40 AM CDT 07/14/2024 4:59 AM CDT Narrative [facility] - 07/14/2024 5:49 AM [...] Bashir NP CHEMISTRY ORDERABLES Final R esult [facility] [id number] [address] [place] [address] * MICROALBUMIN/CREATININE RATIO, RANDOM UR (07/11/2015 10:53 PM CDT) MICROALBUMIN, URINE 67.8 mg/dL 07/11/2015 11:45 PM [facility] CREATININE, URINE 163.8 40.0 - 278.0 mg/dL 07/11/2015 11:45 PM T [facility] Comment: Reference Range varies with fluid intake and diet. MICROALBUMIN/CR EAT RATIO, UR 413.9 mg/g Creatinine 07/11/2015 11:45 PM CDT [facility] Comment: Condition mg/g Creatinine Normal Males <17 Normal Females <25 Microalbuminuria Males 17-299 Microalbuminuria Females 25-299 Overt proteinuria >=300 Urine 07/11/2015 10:5 3 PM CDT 07/11/2015 10:53 PM CDT Jyoti Shirley BUYER URINE ORDERABLES Final Result Performing Organization Address City/State/[facility] Co de Phone Number [facility] [place] CLIA # [id number] [address] [place], [place] [id number] [facility] CLIA # [id number] [address] [place] [address] from Last 3 Months or Most Recently Relevant to Health Maintenance Insurance [place] [address] [place] [place] [address] RX [employer] PLANS (INTERNAL) [facility] [employer] RX [employer] RX Member Subscriber Plan / Payer (Ef fective 2025-Present) Name:Hunter San Relation to Subscriber:Not on file Name:JaswinderHunter Subscriber ID:Not on file Date of :1990 Payer ID:Not on file Group ID:[facility] Type:RX Medicare Part D Address: [place], [place] RX INFOCROSSING Medicaid Advance Directives For more information, please contact: [phone] * Full Code (Latest Code Status on File) Date Activated Date Inactivated Comments 05/16/2025 11:41 PM 05/22/2025 11:34 AM * Full Code Date Activated Date Inactivated Comments 05/03/2025 10:15 AM 05/16/2025 12:24 PM * NO CPR (In Event of Cardiopulmonary [...] 6:17 PM 07/16/2024 2:00 PM Care Teams Tool And Die Technician Relationship Specialty Start Date End Date Duke Alarcon MD [address] [phone] PCP - General Family Practice 08/10/24
--- OUTSIDE RECORDS SUMMARY | 2025-06-15 10:02 | XMS_ITS | Encounter Summary ---
Author Organization [facility], [facility] Address [address] [place] [address] Phone Care Team Providers Care Brim Flexer Name Role Phone Duke Alarcon MD Primary Care Provider [phone] Encounter Details Date Type Department Care Team (Late st Contact Info) Description 05/04/2025 [facility] [address] [place] [address] Angélica Ny MD [address] [place] [address] Social History Tobacco Use Types [...] Hunter San, 1990, 34y, M Dialysis Location: [facility] Attending Sandal Parts Assembler: Angélica Ny Service Date: 05/04/2025 Service Provider: [...] on filedocumented in this encounter Care Teams Brim Flexer Relationship Specialty Start Date End Date Duke Alarcon MD [address] [facility] [address] [place] [address] PCP - General Family Medicine 08/12/24 documented as of this encounter
--- OUTSIDE RECORDS SUMMARY | 2025-06-15 10:02 | XMS_ITS | Encounter Summary ---
Author Organization [facility], [facility] Address [address] [place] [address] Phone Care Team Providers Care Swaging Machine Adjuster Name Role Phone Duke Alarcon MD Primary Care Provider [phone] Encounter Details Date Type Department Care Team (Late st Contact Info) Description 05/25/2025 [facility] [address] [place] [address] Sixto Waller SPRAGGER [address] [place] [address] Social History Tobacco Use Types [...] Progress Notes * Sixto Waller NP - 05/25/2025 12:00 AM CDT Patient: Hunter San : 1990 Note Type: Dialysis TCM Service Date: 05/25/2025 The patient was seen for a fimq-jx-hpua visit as part of Transitional Care Management services. Primary cause of renal failure: E10.22 - Type 1 diabetes mellitus with diabetic chronic kidney disease Attending Research Technologist: HODAN VALERA Dialysis Location: [facility] DIALYSIS Schedule: Shift: 2 HOSPITALIZATION SUMMARY Patient transitioned from: Hospital Patient transitioned to: Home Admit Date: 05/16/2025 Discharge Date: 05/22/2025 Discharged info reviewed: No outstanding diagnostic tests and treatments Reason for admission: Hypertensive emergency HOME MEDICATIONS Discharge med list reviewed and reconciled - no changes. Interruptions to therapy noted and addressed. COMMENTS: Had dialysis 2 times with 1 ultrafiltration. Missed dialysis 05/21/25 TREATMENT MEDICATIONS ORDERS Heparin Sodium (Porcine) 1,000 Units/mL Systemic 7000 units IVP Every Treatment 12/24/2024 - 12/23/2025 Mircera 50 mcg IVP Every 2 weeks During Dialysis 04/20/2025 - 04/19/2026 PHYSICAL EXAM Exam performed. Vital Signs Reviewed. Lungs - With bibasilar rales. CV - Blood pressure noted. 2+ edema. DIALYSIS PRESCRIPTION Admission related changes to access plan reviewed with the patient. COMMENTS: 19 kg difference from EDW. Suspect EDW needs revised. Tx today and return tomorrow for UF 3L if tolerated. post treatment reestablish EDW 05/26/25. Treatment Data Treatment Date: 05/25/2025 started at: 12:35 PM Dialysate / Machine Temp (prescribed): 37.0*C Dialysate / Machine Temp (actual): 36.7*C BFR (prescribed): 450 BFR (actual): 250 DFR (prescribed): Autoflow 2.0 DFR (actual): 300 Prescribed Time: 04:00 EDW (kg): 88.8 Dialyzer: 180NRe Optiflux Dialysate: 2.0 K, 2.5 Ca, 1.0 Mg, 100 Dextrose (G2251) Sodium: 138 Bicarb: 36 Pre Dialysis Vitals Pre BP Sit: 194/116 Pre Wt (kg): 108.1 EDW Deviation (kg): 19.3 Temp: 98.7*F Current Dialysis Vitals BP Sit: 185/93 AP/CANDY WAFFLE ASSEMBLER: 12/116 Pulse: 89 CARE COORDINATION Post-discharge follow-up appointments reviewed with the patient. EDUCATION COMMENTS: wt gain IMPRESSION & PLAN COMMENTS: hypertension: continue meds. UF 3L 05/26/25 to help with BP. Education provided. ESRD: Continue dialysis TTS. VISIT DIAGNOSES CPT Code 22177 - High complexity, seen within 7 days of discharge. I16.9 Hypertensive crisis, unspecified N18.6 End stage renal disease Signed by: SIXTO WALLER NP on 05/25/2025 at 05:23:55 PM Transcribed by: SIXTO WALLER NP on 05/25/2025 at 05:23:55 PM documented in this encounter Plan of Treatment Not on file documented as of this encounter Visit Diagnoses Not on filedocumented in this encounter Care Teams Swaging Machine Adjuster Relationship Specialty Start Date End Date Duke Alarcon MD [address] [address] PCP - General Family Medicine 08/12/24 documented as of this encounter
--- OUTSIDE RECORDS SUMMARY | 2025-06-15 10:02 | XMS_ITS | Encounter Summary ---
Author Organization [facility] Address [address] [place] [address] Care Team Providers Care Infant Toddler Lead Teacher Name Role Phone Karlo Banks MD Primary Care Provider [phone] Encounter Details Date Type Department Care Team (Latest Contact Info) Description 01/24/[address] [facility] [address] [place] [phone] Holland Bell MD [address] [place] [address] ASTHMA UNSPECIFIED (Primary Dx) Social History Tobacco Use Types Packs/Day Years Used Date Smoking Tobacco: Never Assessed Sex and Gender Information Value Date Recorded Sex Assigned at Not on file Legal Sex Male 5:07 AM MISCELLANEOUS MACHINE OPERATOR Gender Identity Not on file Sexual Orientation Not on file documented as of this encounter Plan of Treatment Not on file documented as of this encounter Visit Diagnoses Diagnosis Unspecified asthma(493.90)- Primary Unspecified asthma documented in this encounter Care Teams Infant Toddler Lead Teacher Relationship Specialty Start Date End Date Karlo Banks MD PCP - General Internal Medicine 10/14/14 01/11/21 documented as of this encounter
--- OUTSIDE RECORDS SUMMARY | 2025-06-15 10:02 | XMS_ITS | Encounter Summary ---
Author Organization [facility] Address [address] [place] [address] Care Team Providers Care Slot Supervisor Name Role Phone Karlo Banks MD Primary Care Provider [phone] Encounter Details Date Type Department Care Team (Latest Contact Info) Description 11/01/2003 Outpatient Historical [facility] [address] [place] [phone] Holland Bell MD [address] [place] [address] ASTHMA UNSPECIFIED (Primary Dx) Social History Tobacco Use Types Packs/Day Years Used Date Smoking Tobacco: Never Assessed Sex and Gender Information Value Date Recorded Sex Assigned at Not on file Legal Sex Male 5:07 AM DIRECTOR OF MEDICAL REVIEW Gender Identity Not on file Sexual Orientation Not on file documented as of this encounter Plan of Treatment Not on file documented as of this encounter Visit Diagnoses Diagnosis Unspecified asthma(493.90)- Primary Unspecified asthma documented in this encounter Care Teams Slot Supervisor Relationship Specialty Start Date End Date Karlo Banks MD PCP - General Internal Medicine 10/14/14 01/11/21 documented as of this encounter
--- OUTSIDE RECORDS SUMMARY | 2025-06-15 10:02 | XMS_ITS | Encounter Summary ---
Author Organization [facility] Address [address] [place] [address] Care Team Providers Care Program Manufacturing Leader Name Role Phone Karlo Banks MD Primary Care Provider [phone] Encounter Details Date Type Department Care Team (Latest Contact Info) Description 02/07/2004 Outpatient Historical [facility] [address] [place] [phone] Holland Bell MD [address] [place] [address] ASTHMA UNSPECIFIED (Primary Dx) Social History Tobacco Use Types Packs/Day Years Used Date Smoking Tobacco: Never Assessed Sex and Gender Information Value Date Recorded Sex Assigned at Not on file Legal Sex Male 5:07 AM HEAD OF MARKETING ADOMETRY Gender Identity Not on file Sexual Orientation Not on file documented as of this encounter Plan of Treatment Not on file documented as of this encounter Visit Diagnoses Diagnosis Unspecified asthma(493.90)- Primary Unspecified asthma documented in this encounter Care Teams Program Manufacturing Leader Relationship Specialty Start Date End Date Karlo Banks MD PCP - General Internal Medicine 10/14/14 01/11/21 documented as of this encounter
--- OUTSIDE RECORDS SUMMARY | 2025-06-15 10:02 | XMS_ITS | Encounter Summary ---
Author Organization [facility] Address [address] [place] [address] Care Team Providers Care Fisher Name Role Phone Karlo Banks MD Primary Care Provider [phone] Encounter Details Date Type Department Care Team (Latest Contact Info) Description 02/24/2004 Outpatient Historical [facility] [address] [place] [phone] Holland Bell MD [address] [place] [id number] CONJUNCTIVITIS NOS (Primary Dx) Social History Tobacco Use Types Packs/Day Years Used Date Smoking Tobacco: Never Assessed Sex and Gender Information Value Date Recorded Sex Assigned at Not on file Legal Sex Male 5:07 AM SHUTTLE FILLER Gender Identity Not on file Sexual Orientation Not on file documented as of this encounter Plan of Treatment Not on file documented as of this encounter Visit Diagnoses Diagnosis Conjunctivitis unspecified- Primary Conjunctivitis, unspecified documented in this encounter Care Teams Fisher Relationship Specialty Start Date End Date Karlo Banks MD PCP - General Internal Medicine 10/14/14 01/11/21 documented as of this encounter
--- OUTSIDE RECORDS SUMMARY | 2025-06-15 10:03 | XMS_ITS | Encounter Summary ---
Author Organization [facility], [facility] Address [address] [place] [address] Phone Care Team Providers Care Collar Turner Operator Name Role Phone Duke Alarcon MD Primary Care Provider [phone] Encounter Details Date Type Department Care Team (Late st Contact Info) Description 01/12/2025 TCM in Dialysis Clinic [facility] [address] [place] [address] Sixto Waller DRUG SAFETY PHYSICIAN [address] [place] [address] Social History Tobacco Use Types [...] 01/12/2025 The patient was seen for a [id number] visit as part of Transitional Care Management services. Primary cause of renal failure: E10.22 - Type 1 diabetes mellitus with diabetic chronic kidney disease Attending Geological Scout: HODAN VALERA Dialysis Location: [facility] Schedule: Shift: 2 INTERACTIVE CONTACT [...] 0.5 mg tablet Take as directed. Current [facility] Allergies Allergen: DAVID INHIBITORS Reaction: Cardiac [...] 97.8*F Current Dialysis Vitals BP Sit: 201/131 AP/MARKETING SERVICES COORDINATOR: -- Pulse: 110 CARE COORDINATION No follow-up appointments noted. IMPRESSION & PLAN COMMENTS: ESRD requiring dialysis. Continue TTS. Hypertension. continue amlodipine, clonidine 0.2 mg 3 times a day, carvedilol 25 mg, spironolactone 25 mg and we will add hydralazine 50 mg twice a day VISIT DIAGNOSES CPT Code 23548 - High complexity, seen within 7 days [...] on filedocumented in this encounter Care Teams Collar Turner Operator Relationship Specialty Start Date End Date Duke Alarcon MD [address] [address] PCP - General Family Medicine 08/12/24 documented as of this encounter
--- NOTE | 2025-06-15 10:04 | W.ED.CHESTPA ---
HPI - Chest Pain General: Chief Complaint: Chest Pain Stated Complaint: sob, chest pain Time Seen by Provider: 06/15/25 09:55 Source: patient Mode of arrival: ambulatory Limitations: no limitations History of Present Illness: 34-year-old male has a history of end-stage renal disease is on dialysis goes Saturday did receive it Saturday also has a history of type 1 diabetes and hypertension. States he been having some chest pain shortness of breath since last night states that sharp pain in the center of his chest rates it a 7 out of 10. He is also hypertensive here. He denies any cough denies any fever denies any vomiting Associated symptoms: Reports dyspnea; Deny abdominal pain, fever(s), nausea or vomiting Related Data Home Medications ?Medication ?Instructions ?Recorded ?Confirmed amlodipine 10 mg tablet 10 mg PO QAM 09/16/23 05/04/25 blood-glucose sensor (Kingtop G7 #1 ea 10/21/23 06/15/25 Sensor device) amitriptyline 50 mg tablet 50 mg PO BEDTIME 11/06/24 05/04/25 bupropion HCl 150 mg 24 hr tablet, 150 mg PO DAILY 11/06/24 05/04/25 extended release carvedilol 25 mg tablet 25 mg PO Q12H 11/06/24 05/04/25 epinephrine 0.3 mg/0.3 mL See Rx Instructions .Route .COMPLEX 11/06/24 05/04/25 injection, auto-injector aripiprazole 5 mg tablet 5 mg PO DAILY 04/12/25 05/04/25 aspirin 81 mg tablet,delayed 81 mg PO DAILY 04/12/25 05/04/25 release atorvastatin 80 mg tablet 80 mg PO DAILY 04/12/25 05/04/25 benzonatate 100 mg capsule 100 mg PO TID PRN Cough 04/12/25 05/04/25 gabapentin 100 mg capsule 100 mg PO TID 04/12/25 05/04/25 ondansetron 4 mg disintegrating 4 mg PO Q6H PRN nausea/emesis 04/12/25 05/04/25 tablet Previous Rx's ?Medication ?Instructions ?Recorded Intraoperative Neuromonitoring #1 ea 08/22/22 insulin syringe-needle U-100 1 mL #100 ea 06/27/23 31 gauge x 5/16 (BD Insulin Syringe Ultra-Fine) pen needle, diabetic 32 gauge x #100 ea 06/27/23/ (BD Ultra-Fine Micro Pen Needle) blood sugar diagnostic (True #100 ea 10/04/23 Metrix Glucose Test Strip) blood-glucose meter (True Metrix #1 ea 10/04/23 Air Glucose Meter kit) lancets 31 gauge #100 ea 10/04/23 bumetanide 1 mg tablet 1 mg PO DAILY #30 tabs 04/14/25 cyclobenzaprine 10 mg tablet 10 mg PO TID PRN Muscle Spasms #30 04/14/25 tabs hydralazine 100 mg tablet 100 mg PO BID #60 tabs 04/14/25 insulin glargine 100 unit/mL (3 20 unit (0.2 mL) SUBCUT BID #3 mL 04/14/25 mL) subcutaneous pen (Lantus Solostar U-100 Insulin) insulin lispro 100 unit/mL See Rx Instructions .Route 04/14/25 subcutaneous pen (Humalog KwikPen .COMPLEX #15 mL (U-100) Insulin) Allergies Allergy/AdvReac Type Severity Reaction Status Date / Time bee venom protein (honey bee) Allergy Unknown Verified 06/15/25 10:06 lisinopril Allergy Unknown Verified 06/15/25 10:06 Review of Systems Const: Denies: fever(s), chills, body aches or change in appetite ENMT: Denies: throat pain or dental pain Card: Reports: chest pain Resp: Reports: dyspnea GI: Denies: abdominal pain, nausea, vomiting or diarrhea Musc: Denies: neck pain or back pain Skin/Breast: Denies: rash Neuro: Denies: headache(s) PFSH ED PFSH: Medical History End stage renal disease on dialysis due to type 1 diabetes mellitus Chronic left-sided low back pain with left-sided sciatica Type 1 diabetes End stage renal disease on dialysis Opiate dependence Other stimulant abuse, uncomplicated Waking at night short of breath Snoring Hypersomnia Insomnia Noncompliance w/medication treatment due to intermit use of medication Schizophrenia Methamphetamine abuse Uncontrolled hypertension Family History Other CAD (coronary artery disease) Hypertension Stroke Social History Smoking and tobacco/nicotine status: current every day tobacco/nicotine user Alcohol intake: former Substance/Drug Use: former Date of last use: Amphetamines more than 62 days ago Caregiver/support person: Yes Lives independently: Yes Household members: other Current occupation: [id number] Physical Exam Const: COMMON NORMALS: patient oriented x3 HENMT: COMMON NORMALS: normocephalic and atraumatic HEAD & SCALP: normocephalic and atraumatic Eye: COMMON NORMALS: conjunctivae normal CONJUNCTIVA: Yes conjunctivae normal Neck/C-Spine: COMMON NORMALS: full ROM and supple Chest: COMMONS NORMALS: normal inspection of the chest Resp: COMMON NORMALS: normal respiratory effort, No retractions, No use of accessory muscles and clear to auscultation bilaterally AUSCULTATION: clear to auscultation bilaterally Cardio: COMMON NORMALS: regular rhythm and No murmurs present (Cardio) RATE: tachycardic RHYTHM: regular rhythm GI: COMMON NORMALS: Normal to inspection, nondistended, normoactive bowel sounds present, Soft to palpation, non-tender and no masses PALPATION: Yes Soft to palpation Extremity: COMMON NORMALS: normal to inspection and full ROM Neuro: COMMON NORMALS: patient oriented x3, moves all extremities and no focal motor deficits Psych: COMMON NORMALS: mental status grossly normal, Normal thought process present and cooperative THOUGHT PROCESS: Normal thought process present Skin: COMMON NORMALS: no rashes or lesions noted and no wounds GENERAL SKIN EXAM: no rashes or lesions noted Course Vital Signs: Vital signs: Vital Signs Temperature 98.1 F 06/15/25 09:57 Pulse Rate 109 H 06/15/25 09:57 Respiratory Rate 18 06/15/25 11:15 Blood Pressure 235/116 06/15/25 09:57 Pulse Oximetry 96 06/15/25 09:57 Oxygen Delivery Me thod Room Air 06/15/25 09:57 MDM - Chest Pain Medical Decision Making Patient presents for chest pain along with shortness of breath he has been quite hypertensive here getting multiple doses and still is hypertensive does have fluid overload as well have started him on esmolol drip for hypertensive emergency spoke to the hospitalist will admit to ICU. Medical Records I reviewed the patient's medical records. Lab Data I reviewed the patient's lab results. 06/15/25 10:18 06/15/25 10:18 Radiology Impressions Chest X-Ray 06/15/25 10:02 IMPRESSION: 1. New hazy opacifications in the RIGHT lung. Edema versus pneumonitis. 2. No dense consolidation or pneumonia. 3. Mild cardiomegaly. Size of the heart has slightly increased since the prior study. Small pericardial effusion is not excluded. Chest CTA 06/15/25 10:54 IMPRESSION: 1. No pulmonary embolism. 2. Limited opacification of the distal pulmonary arteries. Peripheral segmental emboli not excluded. 3. Cardiomegaly with a moderate-sized pericardial effusion. LEFT heart enlargement. 4. Scattered pulmonary groundglass opacifications, bilateral but greater on the RIGHT. Likely cardiogenic pulmonary edema. Pneumonitis may appear similar. 5. Extensive gynecomastia. 6. Small bilateral pleural effusions. 7. Soft tissue anasarca. Laboratory Results WBC 8.56 10^3/uL (3.29-11.43) 06/15/25 10:18 RBC 3.31 10^6/uL (3.85-5.65) L 06/15/25 10:18 Hgb 10.40 g/dL (11.27-16.99) L 06/15/25 10:18 Hct 30.5 % (37-53) L 06/15/25 10:18 MCV 92.1 fl (82-101) 06/15/25 10:18 MCH 31.4 pg (27-33) 06/15/25 10:18 MCHC 34.1 g/dL (30-55) 06/15/25 10:18 RDW 13.9 % (12.1-15.1) 06/15/25 10:18 Plt Count 179 10^3/cmm (157-399) 06/15/25 10:18 MPV 9.6 fL (7.4-10.4) 06/15/25 10:18 Neut % (Auto) 71.7 % 06/15/25 10:18 Lymph % (Auto) 16.1 % 06/15/25 10:18 Hill % (Auto) 6.4 % 06/15/25 10:18 Eos % (Auto) 4.4 % 06/15/25 10:18 Baso % (Auto) 0.9 % 06/15/25 10:18 Neut # (Auto) 6.13 10^3/uL (1.8-7.7) 06/15/25 10:18 Lymph # (Auto) 1.4 10^3/uL (0.8-4.8) 06/15/25 10:18 Hill # (Auto) 0.6 10^3/uL (0.2-0.9) 06/15/25 10:18 Eos # (Auto) 0.4 10^3/uL (0.0-0.8) 06/15/25 10:18 Baso # (Auto) 0.1 10^3/uL (0.0-0.1) 06/15/25 10:18 Nucleated RBC % (auto) 0 % 06/15/25 10:18 Nucleated RBCs # 0.0 /100WBC 06/15/25 10:18 D-Dimer 2.43 ug/mLFEU (0-0.59) H 06/15/25 10:18 Sodium 132 mmol/L (136-145) L 06/15/25 10:18 Potassium 5.3 mmol/L (3.5-5.1) H 06/15/25 10:18 Chloride 94 mmol/L (98-107) L 06/15/25 10:18 Carbon Dioxide 20 mmol/L (22-29) L 06/15/25 10:18 Anion Gap 23.3 (5-19) H 06/15/25 10:18 BUN 59 mg/dL (6-20) H 06/15/25 10:18 Creatinine 7.2 mg/dL (0.7-1.2) H* 06/15/25 10:18 GFR Calculation 8.8 mL/min (90-130) L 06/15/25 10:18 Glucose 194 mg/dL (65-115) H 06/15/25 10:18 Calculated Osmolality 296 mOsm/kg (285-295) H 06/15/25 10:18 Calcium 8.9 mg/dL (8.5-10.5) 06/15/25 10:18 Total Bilirubin 0.7 mg/dL (0.15-1.2) 06/15/25 10:18 AST 19 U/L (0-40) 06/15/25 10:18 ALT 17 U/L (0-41) 06/15/25 10:18 Alkaline Phosphatase 108 U/L (40-130) 06/15/25 10:18 Troponin T Baseline 373 ng/L (0-15) H* 06/15/25 10:18 NT-Pro-B Natriuret Pep 93462 pg/mL (0-125) H 06/15/25 10:18 Total Protein 7.2 g/dL (6.6-8.7) 06/15/25 10:18 Albumin 3.7 g/dL (3.5-5.2) 06/15/25 10:18 Globulin 3.5 g/dL (1.3-4.6) 06/15/25 10:18 Lipase 26 U/L (13-60) 06/15/25 10:18 All radiology interpretation(s) finalized by discharge EKG Data EKG 1: I personally reviewed and interpreted this EKG as follows: EKG interpretation date: 06/15/25 EKG interpretation time: 10:01 Interpretation: sinus tach hr [address] elevation qrs 91 qtc 409 Critical Care Time Critical Care Time: Critical Care Time: Yes Total Critical Care Time: 50 Attestation: The high probability of a clinically significant, sudden or life threatening deterioration of the patient's cv system(s) required my full and direct attention, intervention and personal management. The critical care time is as shown. This time is in addition to time spent performing any reported procedures but includes the following: [x] Data and vital sign review and interpretation [x] Patient assessment, examination and intervention [x] Documentation [x] Medication orders and management Discharge Plan Discharge Patient Disposition: Admitted As Inpatient Clinical Impression: End stage renal disease on dialysis due to type 1 diabetes mellitus, Hypertensive emergency, Chest pain, Breath shortness Condition: Stable Coding Level of Care Code ED Cooker Meal for Bessie Gaxiola
[2025-06-15 10:41] LABS: Hematocrit 30.5 % (37-53); Hemoglobin 10.40 g/dL (11.27-16.99); Mean Corpuscular HGB Conc 34.1 g/dL (30-55); Mean Corpuscular Hemoglobin 31.4 pg (27-33); Mean Corpuscular Volume 92.1 fl (82-101); Nucleated Red Blood Cells % 0 %; Platelet Count 179 10^3/cmm (157-399); Red Blood Count 3.31 10^6/uL (3.85-5.65); White Blood Count 8.56 10^3/uL (3.29-11.43)
[2025-06-15 10:52] LABS: Alanine Aminotransferase 17 U/L (0-41); Albumin Level 3.7 g/dL (3.5-5.2); Alkaline Phosphatase 108 U/L (40-130); Anion Gap 23.3 (5-19); Aspartate Amino Transferase 19 U/L (0-40); Blood Urea Nitrogen 59 mg/dL (6-20); Calcium 8.9 mg/dL (8.5-10.5); Carbon Dioxide 20 mmol/L (22-29); Chloride 94 mmol/L (98-107); Creatinine Clr Calc Pharmacy 17.4967; Globulin 3.5 g/dL (1.3-4.6); Glucose 194 mg/dL (65-115); Lipase 26 U/L (13-60); Osmolality Calculated 296 mOsm/kg (285-295); Potassium 5.3 mmol/L (3.5-5.1); Sodium 132 mmol/L (136-145); Total Protein 7.2 g/dL (6.6-8.7); Troponin(5th) Baseline 373 ng/L (0-15)
--- NOTE | 2025-06-15 10:54 | CT_ITS ---
WS: [id number] CT CHEST ANGIOGRAPHY WITH REFORMATS HISTORY: sob TECHNIQUE: Contiguous axial images are obtained through the chest during arterial injection of intravenous contrast. Images are reconstructed to evaluate the pulmonary arteries. MIP imaging also reviewed. All CT scans at [facility] use at least one of these dose optimization techniques: automated exposure control; mA and/or kV adjustment per patient size (includes targeted exams where dose is matched to clinical indication); or iterative reconstruction. CONTRAST: Omnipaque 350; 100 mL IV. DLP: 489.93 mGy.cm COMPARISON: None available. Good opacification of the pulmonary arteries. No central pulmonary embolism. In the peripheral segmental branches of the lower lobes there is poor pulmonary artery opacification. Very tiny peripheral emboli cannot be excluded. Normal size aorta. Pulmonary artery 3.3 cm. Heart is enlarged with a moderate sized pericardial effusion. LEFT heart enlargement. No RIGHT heart strain. Small bilateral pleural effusions. Scattered pulmonary opacifications. These opacifications are in a central distribution with mild sparing of the periphery. Most consistent with cardiogenic pulmonary edema. Greater groundglass opacifications on the RIGHT. No pneumothorax. No adenopathy. Extensive bilateral gynecomastia. Soft tissue anasarca. CT/CT angio chest PE protcl [id number] IMPRESSION: 1. No pulmonary embolism. 2. Limited opacification of the distal pulmonary arteries. Peripheral segmenta l emboli not excluded. 3. Cardiomegaly with a moderate-sized pericardial effusion. LEFT heart enlarge ment. 4. Scattered pulmonary groundglass opacifications, bilateral but greater on th e RIGHT. Likely cardiogenic pulmonary edema. Pneumonitis may appear similar. 5. Extensive gynecomastia. 6. Small bilateral pleural effusions. 7. Soft tissue anasarca.
[2025-06-15] MEDS: iohexol 350 mg/mL 500 mL Btl (per mL) IV (11:12)
[2025-06-15] MEDS: ondansetron 2 mg/ML SDV 2 mL 4 MG IVP (11:14)
[2025-06-15] MEDS: labetalol 5 mg/mL SDV 20mL 20 MG IVP (11:15)
[2025-06-15] MEDS: morphine 4 mg/mL SDV 1 mL IVP ×2 (11:15→23:26)
[2025-06-15 12:03] LABS: NT Pro B Type Natriuretic Pept 67003 pg/mL (0-125)
[2025-06-15] MEDS: hyDRALAzine 20 mg/mL INJ 1 mL IVP (12:10)
--- NOTE | 2025-06-15 12:43 | PC.PHAR ---
Pt has his current med list on his phone.
[2025-06-15] MEDS: esmolol drip 2,500 MG/250 ML PREMIX 33.6 MG IV (12:52)
--- NOTE | 2025-06-15 12:59 | ECG_ITS ---
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 Measurements Intervals Atlantic Rate: 89 P: 42 RI: 169 QRS: 38 QRSD: 92 T: -25 QT: 404 QTc: 492 Interpretive Statements SINUS RHYTHM ABNORMAL QRS-T ANGLE [QRS-T AXIS DIFFERENCE > 60] Compared to ECG 06/15/2025 10:01:37 Sinus tachycardia no longer present Electronically Signed On 06-15-2025 21:49:31 CDT by Kishore Mcconnell M.D. [email or web address]
[2025-06-15 13:23] LABS: Troponin 5 2HR 323.6 ng/L (0-15); Troponin 5 2HR Delta -49.4 ABS# (0-10)
--- NOTE | 2025-06-15 14:07 | PM.CONSULT ---
Providers/Reason For Consult Consulting Physician/Specialty*: kommana/Nephrology Reason for Consult*: esrd Primary Care Provider: Duke Alarcon History of Present Illness History of Present Illness Hunter San is a 34 year old male Patient is a 34-year-old male with past medical history of end-stage renal disease on dialysis but Saturday schedule, type 1 diabetes, hypertension presented to the emergency department chest pain and shortness of breath. Patient was noted to be hypertensive with a blood pressures 235/116 in the ER. Patient underwent CT angiogram of the chest that showed no pulmonary embolism but has cardiomegaly and small bilateral effusions. Lab data significant for hyperkalemia with potassium of 5.3. Patient is currently admitted to ICU he was placed on esmolol drip in the ED.. Medications/Allergies Home Medications ?Medication ?Instructions ?Recorded ?Confirmed ?Last Taken ?Type Intraoperative Neuromonitoring #1 ea 08/22/22 06/15/25 Unknown Rx insulin syringe-needle U-100 1 mL #100 ea 06/27/23 06/15/25 Unknown Rx 31 gauge x 5/16 (BD Insulin Syringe Ultra-Fine) pen needle, diabetic 32 gauge x #100 ea 06/27/23 06/15/25 Unknown Rx 1/4 (BD Ultra-Fine Micro Pen Needle) amlodipine 10 mg tablet 10 mg PO QAM 09/16/23 06/15/25 06/15/25 History blood sugar diagnostic (True #100 ea 10/04/23 06/15/25 Unknown Rx Metrix Glucose Test Strip) blood-glucose meter (True Metrix #1 ea 10/04/23 06/15/25 Unknown Rx Air Glucose Meter kit) lancets 31 gauge #100 ea 10/04/23 06/15/25 Unknown Rx blood-glucose sensor (Dexcom G7 #1 ea 10/21/23 06/15/25 Unknown History Sensor device) amitriptyline 50 mg tablet 50 mg PO BEDTIME 11/06/24 06/15/25 06/14/25 History bupropion HCl 150 mg 24 hr tablet, 150 mg PO DAILY 11/06/24 06/15/25 06/15/25 History extended release carvedilol 25 mg tablet 25 mg PO Q12H 11/06/24 06/15/25 06/15/25 History epinephrine 0.3 mg/0.3 mL See Rx Instructions .Route .COMPLEX 11/06/24 06/15/25 Unknown History injection, auto-injector aripiprazole 5 mg tablet 5 mg PO DAILY 04/12/25 06/15/25 06/15/25 History aspirin 81 mg tablet,delayed 81 mg PO DAILY 04/12/25 06/15/25 06/15/25 History release atorvastatin 80 mg tablet 80 mg PO BEDTIME 04/12/25 06/15/25 06/14/25 History gabapentin 100 mg capsule 200 mg PO TID 04/12/25 06/15/25 06/15/25 History ondansetron 4 mg disintegrating 4 mg PO Q6H PRN nausea/emesis 04/12/25 06/15/25 Unknown History tablet bumetanide 1 mg tablet 1 mg PO DAILY #30 tabs 04/14/25 06/15/25 06/15/25 Rx hydralazine 100 mg tablet 100 mg PO BID #60 tabs 04/14/25 06/15/25 06/15/25 Rx insulin lispro 100 unit/mL See Rx Instructions .Route 04/14/25 06/15/25 06/15/25 Rx subcutaneous pen (Humalog KwikPen .COMPLEX #15 mL (U-100) Insulin) albuterol sulfate 90 mcg/actuation 2 puff inhalation Q6H PRN 06/15/25 06/15/25 Unknown History aerosol inhaler (Ventolin HFA) Shortness Of Breath clonidine HCl 0.2 mg tablet 0.2 mg PO TID 06/15/25 06/15/25 06/15/25 History doxazosin 4 mg tablet 4 mg PO BEDTIME 06/15/25 06/15/25 06/14/25 History insulin glargine 100 unit/mL (3 25 unit SUBCUT BID 06/15/25 06/15/25 06/15/25 History mL) subcutaneous pen (Lantus Solostar U-100 Insulin) insulin glargine-aglr 100 unit/mL 25 unit SUBCUT BID 06/15/25 06/15/25 Unknown History (3 mL) subcutaneous pen (Rezvoglar KwikPen) isosorbide mononitrate 30 mg 30 mg PO DAILY 06/15/25 06/15/25 06/15/25 History tablet,extended release 24 hr naloxone 4 mg/actuation nasal spray See Rx Instructions .Route .COMPLEX 06/15/25 06/15/25 Unknown History oxycodone 5 mg tablet 5 mg PO Q8H PRN Pain 06/15/25 06/15/25 Unknown History sevelamer carbonate 800 mg tablet 800 mg PO TID 06/15/25 06/15/25 06/15/25 History spironolactone 25 mg tablet 25 mg PO DAILY 06/15/25 06/15/25 06/15/25 History Allergies Allergy/AdvReac Type Severity Reaction Status Date / Time bee venom protein (honey bee) Allergy Unknown Verified 06/15/25 10:06 lisinopril Allergy Unknown Verified 06/15/25 10:06 Current Medications Generic Name Dose Route Start Last Admin Trade Name Freq PRN Reason Stop Dose Admin Esmolol HCl 2,500 mg in 250 mls @ 0 mls/hr 06/15/25 12:15 06/15/25 12:52 Brevibloc Drip IV 50 mcg/kg/min .Q0M LILI 33.6 mls/hr Protocol Administration Per Protocol PFSH Acute PFSH: Medical History (Updated 06/15/25 @ 15:51 by Humphrey Fernandez MD) End stage renal disease on dialysis due to type 1 diabetes mellitus Chronic left-sided low back pain with left-sided sciatica Type 1 diabetes End stage renal disease on dialysis Opiate dependence Other stimulant abuse, uncomplicated Waking at night short of breath Snoring Hypersomnia Insomnia Noncompliance w/medication treatment due to intermit use of medication Schizophrenia Methamphetamine abuse Uncontrolled hypertension Family History Other CAD (coronary artery disease) Hypertension Stroke Social History Smoking and tobacco/nicotine status: current every day tobacco/nicotine user Alcohol intake: former Substance/Drug Use: former Date of last use: Amphetamines more than 62 days ago Caregiver/support person: Yes Lives independently: Yes Household members: other Current occupation: [employer] Vitals/I&O/Wt Last Vital Signs Temp 98.1 F 06/15/25 09:57 Pulse 109 H 06/15/25 09:57 Resp 18 06/15/25 11:15 BP 235/116 06/15/25 09:57 Pulse Ox 96 06/15/25 09:57 O2 Del Method Room Air 06/15/25 09:57 Weight last 48 hrs Weight 112.037 kg Weight 97.522 kg Data 06/15/25 10:18 06/15/25 10:18 A&P Assessment and plan 1. End stage renal disease on dialysis due to type 1 diabetes mellitus: Plan: 1. End-stage renal disease: On TTS schedule, patient now presented with hypertensive urgency and hyperkalemia - Urgent hemodialysis today and ultrafiltration up to 4 L as tolerated - May repeat HD again tomorrow. 2. Hyperkalemia , low K diet and HD as above 3. Hypertensive urgency: Should improve after HD, resume home meds 4. Hyponatremia: Mild, monitor 5. Anemia: Hemoglobin 10.4, NERISSA when drops below 10 Patient evaluated using audiovisual cart. Time spent 40 minutes. PDMP PDMP Reviewed: Not Reviewed Consult Attestations Medical Necessity Statement: per alejandro Coding Level of Care Code Acute Code for Chg Fwd Diagnoses End stage renal disease on dialysis due to type 1 diabetes mellitus E10.22; N18.6; Z99.2
--- NOTE | 2025-06-15 14:48 | USCV_ITS ---
Jaswinder Hunter Age: 34 Gender: M : 1990 Exam Date: 06/15/2025 16:40 Ordering Phys: Humphrey Fernandez MD Technologist: JEFFREY Exam Location: [facility] [place] Indication: NSTEMI BP: 149 / 80 HR: 86 Rhythm: Sinus Technical Quality: Adequate MEASUREMENTS (Male / Female) Normal Values 2D ECHO LV Diastolic Diameter PLAX 4.1 cm 4.2 - 5.9 / 3.9 - 5.3 cm IVS Diastolic Thickness 1.8 cm 0.6 - 1.0 / 0.6 - 0.9 cm IVS Systolic Thickness 2.4 cm LVPW Diastolic Thickness 2.2 cm 0.6 - 1.0 / 0.6 - 0.9 cm LVPW Systolic Thickness 2.5 cm LVOT Diameter 2.0 cm LV Ejection Fraction 2D Teich 51.4 % LV Ejection Fraction MOD 4C 50.9 % LV Ejection Fraction MOD 2C 57.8 % LV Ejection Fraction 2C AL 61.7 % LA Diameter 4.9 cm RA Systolic Volume 4C AL 72.9 ml RA Systolic Volume 4C MOD 69.0 ml LA Sys Volume AL 82.9 cm cubed LA Sys Volume Index AL 34.2 cm cubed/m squared Aorta at Sinotubular Diameter 2.1 cm IVC Diameter 1.9 cm M-MODE LA Ao Ratio MM 1.7 AV Cusp Separation MM 1.6 cm DOPPLER AV Peak Velocity 172.0 cm/s LVOT Peak Velocity 116.0 cm/s AV Area Cont Eq vti 1.9 cm squared AV Area Cont Eq pk 2.1 cm squared MV Peak Velocity 149.0 cm/s MV Area PHT 3.6 cm squared Mitral E to A Ratio 4.0 TR Peak Velocity 287.0 cm/s TR Peak Gradient 32.9 mmHg TV Peak E Velocity 104.0 cm/s PV Peak Velocity 133.0 cm/s FINDINGS Left Ventricle Moderate concentric left ventricular hypertrophy. LV ejection fraction of 50 to 55%.. Mild hypokinesia of the inferior wall.Grade III/IV diastolic dysfunction (restrictive filling pattern), severely elevated filling pressures. Right Ventricle Normal RV size with a slightly diminished ejection fraction Right Atrium The right atrium is normal in size. Left Atrium Mildly increased left atrial size. Mitral Valve Mild mitral valve regurgitation. Aortic Valve No gross abnormalities noted Tricuspid Valve Trace tricuspid valve regurgitation estimated pulmonary artery peak systolic pressure 41 mm of Hg. Pulmonic Valve Pulmonic valve not well visualized. Pericardium Small to moderate pericardial effusion Aorta Normal aortic annulus size. IVC Normal IVC dimension with <50% respiratory change of the inferior vena cava. CONCLUSIONS Moderate concentric left ventricular hypertrophy. LV ejection fraction of 50 to 55%.. Mild hypokinesia of the inferior wall. Mildly increased left atrial size. Mild mitral valve regurgitation. Trace tricuspid valve regurgitation . Estimated pulmonary artery peak systolic pressure 41 mm of Hg. This could be an underestimation because of the poor Doppler signal Compared to the study from 12/13/2024, there may not be a significant change Dr Kishore Mcconnell MD FACC (Electronically Signed) Final Date: 15 June 2025 18:25 S
[2025-06-15 15:18] LABS: Hepatitis B Surface Antigen Non-Reactive (Nonreactive)
--- NOTE | 2025-06-15 15:35 | PM.HP ---
Providers/Chief Complaint Admitting Physician: Humphrey Fernandez MD Primary Care Provider: Duke Alarcon Chief Complaint: sob, chest pain History of Present Illness Hunter San is a 34 year old male with past medical history of type 1 diabetes mellitus, end-stage renal disease on hemodialysis, congestive heart failure with last known EF of 45%, recent possible bacteremia for which she was on IV vancomycin with last dose on 10 June presents to the ER today with difficulty in breathing, retrosternal chest pain radiating to back which woke him up today morning. Difficulty breathing is getting worse on exertion. In the ER he was found to be hypertensive with blood pressure of more than 200 systolic. He was started on esmolol drip and hospitalist was consulted for further recommendations and management. Review of Systems General: Reports: 10 or more systems reviewed and unremarkable except in HPI and below Const: Denies: fever(s), chills, body aches, change in appetite, change in weight, malaise, night sweats, diaphoresis, change in sleep pattern, daytime sleepiness or snoring Eyes: Denies: change in vision, blurry vision, photophobia, eye discomfort or eye discharge ENMT: Denies: throat pain, enlarged tonsils, hoarseness, mouth pain, oral sores, dry mouth, tinnitus, nasal congestion or post nasal drip Card: Denies: chest pain, palpitations, irregular heart rhythm, edema, swelling of feet/ankles, lightheadedness, syncope, pre-syncope, dyspnea on exertion, orthopnea, leg pain with exertion or acrocyanosis Resp: Denies: dyspnea, productive cough, non-productive cough, wheezing, stridor, pain on inspiration, change in phlegm color, hemoptysis or chest congestion GI: Denies: abdominal pain, nausea, vomiting, hematemesis, coffee ground emesis, dysphagia, heartburn, diarrhea, constipation, bloating, GI cramping, change in bowel habits, pain on defecation, hematochezia or melena : Denies: flank pain, difficulty urinating, dysuria, urinary frequency, urinary urgency, urinary hesitancy, urinary dribbling, difficulty starting urination, change in urine stream, nocturia or hematuria Musc: Denies: neck pain, back pain, extremity pain, joint pain, joint swelling, joint redness, joint stiffness or limited range of motion Neuro: Denies: headache(s), numbness in extremities, weakness in extremities, sensory changes, lack of coordination, difficulty walking, frequent falls, dizziness, vertigo, confusion, Slurred speech present, difficulty communicating thoughts or seizure-like activity Psych: Denies: anxiety, depression, mood swings, panic attacks, hopelessness or irritability Endo: Denies: polyuria, polydipsia, tired all the time, cold intolerance, excessive sweating, flushing or heat intolerance Antonio/Lymph: Denies: easy bruising or easy bleeding All/Imm: Denies: tongue swelling, facial swelling or acute wheezing Medications/Allergies Home Medications ?Medication ?Instructions ?Recorded ?Confirmed ?Last Taken ?Type Intraoperative Neuromonitoring #1 ea 08/22/22 06/15/25 Unknown Rx insulin syringe-needle U-100 1 mL #100 ea 06/27/23 06/15/25 Unknown Rx 31 gauge x 5/16 (BD Insulin Syringe Ultra-Fine) pen needle, diabetic 32 gauge x #100 ea 06/27/23 06/15/25 Unknown Rx 1/4 (BD Ultra-Fine Micro Pen Needle) amlodipine 10 mg tablet 10 mg PO QAM 09/16/23 06/15/25 06/15/25 History blood sugar diagnostic (True #100 ea 10/04/23 06/15/25 Unknown Rx Metrix Glucose Test Strip) blood-glucose meter (True Metrix #1 ea 10/04/23 06/15/25 Unknown Rx Air Glucose Meter kit) lancets 31 gauge #100 ea 10/04/23 06/15/25 Unknown Rx blood-glucose sensor (Dexcom G7 #1 ea 10/21/23 06/15/25 Unknown History Sensor device) amitriptyline 50 mg tablet 50 mg PO BEDTIME 11/06/24 06/15/25 06/14/25 History bupropion HCl 150 mg 24 hr tablet, 150 mg PO DAILY 11/06/24 06/15/25 06/15/25 History extended release carvedilol 25 mg tablet 25 mg PO Q12H 11/06/24 06/15/25 06/15/25 History epinephrine 0.3 mg/0.3 mL See Rx Instructions .Route .COMPLEX 11/06/24 06/15/25 Unknown History injection, auto-injector aripiprazole 5 mg tablet 5 mg PO DAILY 04/12/25 06/15/25 06/15/25 History aspirin 81 mg tablet,delayed 81 mg PO DAILY 04/12/25 06/15/25 06/15/25 History release atorvastatin 80 mg tablet 80 mg PO BEDTIME 04/12/25 06/15/25 06/14/25 History gabapentin 100 mg capsule 200 mg PO TID 04/12/25 06/15/25 06/15/25 History ondansetron 4 mg disintegrating 4 mg PO Q6H PRN nausea/emesis 04/12/25 06/15/25 Unknown History tablet bumetanide 1 mg tablet 1 mg PO DAILY #30 tabs 04/14/25 06/15/25 06/15/25 Rx hydralazine 100 mg tablet 100 mg PO BID #60 tabs 04/14/25 06/15/25 06/15/25 Rx insulin lispro 100 unit/mL See Rx Instructions .Route 04/14/25 06/15/25 06/15/25 Rx subcutaneous pen (Humalog KwikPen .COMPLEX #15 mL (U-100) Insulin) albuterol sulfate 90 mcg/actuation 2 puff inhalation Q6H PRN 06/15/25 06/15/25 Unknown History aerosol inhaler (Ventolin HFA) Shortness Of Breath clonidine HCl 0.2 mg tablet 0.2 mg PO TID 06/15/25 06/15/25 06/15/25 History doxazosin 4 mg tablet 4 mg PO BEDTIME 06/15/25 06/15/25 06/14/25 History insulin glargine 100 unit/mL (3 25 unit SUBCUT BID 06/15/25 06/15/25 06/15/25 History mL) subcutaneous pen (Lantus Solostar U-100 Insulin) insulin glargine-aglr 100 unit/mL 25 unit SUBCUT BID 06/15/25 06/15/25 Unknown History (3 mL) subcutaneous pen (Rezvoglar KwikPen) isosorbide mononitrate 30 mg 30 mg PO DAILY 06/15/25 06/15/25 06/15/25 History tablet,extended release 24 hr naloxone 4 mg/actuation nasal spray See Rx Instructions .Route .COMPLEX 06/15/25 06/15/25 Unknown History oxycodone 5 mg tablet 5 mg PO Q8H PRN Pain 06/15/25 06/15/25 Unknown History sevelamer carbonate 800 mg tablet 800 mg PO TID 06/15/25 06/15/25 06/15/25 History spironolactone 25 mg tablet 25 mg PO DAILY 06/15/25 06/15/25 06/15/25 History Allergies Allergy/AdvReac Type Severity Reaction Status Date / Time bee venom protein (honey bee) Allergy Unknown Verified 06/15/25 10:06 lisinopril Allergy Unknown Verified 06/15/25 10:06 PFSH Acute PFSH: Medical History (Updated 06/15/25 @ 15:51 by Humphrey Fernandez MD) End stage renal disease on dialysis due to type 1 diabetes mellitus Chronic left-sided low back pain with left-sided sciatica Type 1 diabetes End stage renal disease on dialysis Opiate dependence Other stimulant abuse, uncomplicated Waking at night short of breath Snoring Hypersomnia Insomnia Noncompliance w/medication treatment due to intermit use of medication Schizophrenia Methamphetamine abuse Uncontrolled hypertension Family History Other CAD (coronary artery disease) Hypertension Stroke Social History Smoking and tobacco/nicotine status: current every day tobacco/nicotine user Alcohol intake: former Substance/Drug Use: former Date of last use: Amphetamines more than 62 days ago Caregiver/support person: Yes Lives independently: Yes Household members: other 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 Vitals/I&O/Wt Last Vital Signs Temp 98.1 F 06/15/25 09:57 Pulse 109 H 06/15/25 09:57 Resp 18 06/15/25 11:15 BP 235/116 06/15/25 09:57 Pulse Ox 96 06/15/25 09:57 O2 Del Method Room Air 06/15/25 09:57 Weight last 48 hrs Weight 112.037 kg Weight 97.522 kg Physical Exam Narrative: General: No acute distress, AO x3 HEENT: PERRLA, pupils bilaterally equal and reactive Chest: Normal vesicular breath sounds, no added sounds, equal good air entry bilaterally CVS: S1-S2 regular, no murmurs, no tachycardia, no gallops, no rubs Abdomen: Soft, nontender, no organomegaly, bowel sounds present Neuro: No focal deficits, no facial deformity, AO x3, power 5/5 in all limbs Data 06/16/25 06:23 06/16/25 03:30 A&P Assessment and plan 1. Hypertensive emergency: Goal blood pressure less than 180 mmHg for now which is 25% of the presenting blood pressure. Patient takes multiple antihypertensive at home including hydralazine 100 mg 3 times daily, Imdur, clonidine 0.2 mg patch, amlodipine, Coreg. Continue with hydralazine 100 mg 3 times a day, Imdur, clonidine 0.2 3 times daily, amlodipine 10 mg daily, Coreg 25 mg twice daily. For now start on nicardipine drip and titrate antihypertensive accordingly. 2. Acute on chronic systolic congestive heart failure: Last echocardiogram shows EF of 45 to 50% with concentric LVH, mildly elevated RV pressures. Will consult nephrology for possible emergent dialysis. Patient gets dialysis Saturday. Last dialysis on Saturday. Patient is due for dialysis today. Oxygen supplementation keeping saturation over 90%. Strict input output charting. 3. Type 1 diabetes: Check A1c. Continue with Lantus 20 units twice daily, insulin sliding scale. 4. Breath shortness: Due to congestive heart failure and hypertensive emergency. 5. End stage renal disease on dialysis due to type 1 diabetes mellitus: Plan: Chest pain/elevated troponin: Most likely type II SC in setting of hypertensive emergency. Cycle troponin. If uptrending can plan for heparin drip and possible cardiology consultation for further recommendations. Aspirin 325 mg one-time. Check A1c, lipid panel. Possible recent bacteremia: Will request documents from outpatient nephrology dialysis center and outside hospital. Check blood culture. Hold off on antibiotics for now. Full code Renal diabetic diet Heparin 5000 every 12 for DVT prophylaxis Protonix for PUD prophylaxis PDMP PDMP Reviewed: Not Reviewed Attestations Medical Necessity Statement*: Admission for more than 2 midnights for management of hypertensive emergency, shortness of breath in setting of systolic heart failure in a patient with end-stage renal disease on hemodialysis Critical Care Time: The high probability of a clinically significant, sudden or life threatening deterioration of the patient's [cardiac, pulmonary, renal] system(s) required my full and direct attention, intervention and personal management. The critical care time is as shown. This time is in addition to time spent performing any reported procedures but includes the following: [x] Data and vital sign review and interpretation [x] Patient assessment, examination and intervention [x] Documentation [x] Medication orders and management Critical Care Time (min): 80 Coding Level of Care Code Critical Care >/= 30 minutes Critical care time (in minutes): 80 The high probability of a clinically significant, sudden or life threatening deterioration, as referenced in this documentation, required my full and direct attention, intervention and personal management. The critical care time shown is in addition to time spent performing any reported separately billable procedures and includes the following: [x] Data and vital sign review and interpretation [x] Patient assessment, examination and intervention [x] Medication orders and management [x] Patient/Family updates as able [x] Care Coordination and Documentation. Diagnoses Hypertensive emergency I16.1 Acute on chronic systolic congestive heart failure I50.23 Heart failure chronicity: acute on chronic Heart failure type: systolic Type 1 diabetes E10.9 Breath shortness R06.02 End stage renal disease on dialysis due to type 1 diabetes mellitus E10.22; N18.6; Z99.2
[2025-06-15] MEDS: morphine 4 mg/mL SDV 1 mL 2 MG IVP ×2 (15:37→19:54)
[2025-06-15] MEDS: nicardipine 20 MG/200 ML PREMIX 50 MG IV ×3 (15:40→23:26)
[2025-06-15 15:50] LABS: Estmated Average Glucose 146; Hemoglobin A1C 6.7 % (4.0-6.0)
[2025-06-15 15:50] LABS: Procalcitonin 0.72 ng/mL (0-0.5); Thyroid Stimulating Hormone 5.41 uIU/mL (0.27-4.20); Vitamin B12 519 pg/mL (232-1245)
[2025-06-15 16:01] LABS: Iron 33 ug/dL (59-158); Total Iron Binding Capacity 187 mcg/dl; Unsaturated Iron Binding 154 ug/dL (112-347)
[2025-06-15 16:29] LABS: Lactic Sepsis W/Reflex 0.8 mmol/L (0.5-2.2)
--- NOTE | 2025-06-15 17:54 | ECG_ITS ---
[facility]: 2025-[facility]-15 Pat Name: Hunter San Department: Room: ICU12 Gender: Male Agency Owner: : 1990 Requested By: Nedra Camacho Order Number: [id number] Mckay MD: Kishore Mcconnell M.D. Measurements Intervals [place] Rate: 90 P: 19 SC: 168 QRS: 15 QRSD: 89 T: 78 QT: 397 QTc: 487 Interpretive Statements SINUS RHYTHM Compared to ECG 06/15/2025 12:59:15 No significant changes Electronically Signed On 06-15-2025 21:48:29 CDT by Kishore Mcconnell M.D. [email or web address]
[2025-06-15 18:32] LABS: Troponin 5 6HR 308.7 ng/L (0-15); Troponin 5 6HR Delta -64.3 ng/L (0-12)
--- NOTE | 2025-06-15 18:34 | PC.NURSE ---
Arrived from ED, AO c/o of chest pain with no change from presentation to ER per patient, no telemetry changes
[2025-06-15] MEDS: heparin, porcine 1,000 unit/mL INJ 10 mL 1000 UNIT IV (18:38)
[2025-06-15] MEDS: pantoprazole 40 mg SDV IVP (19:00)
[2025-06-15] MEDS: heparin 5,000 unit/mL INJ 1 mL 5000 UNIT SUBCUT (19:00)
[2025-06-15] MEDS: oxyCODONE 5 mg IR Tab/Cap PO (19:00)
[2025-06-15] MEDS: diphenhydrAMINE 50 mg/mL SDV 1mL IVP (19:09)
[2025-06-15] MEDS: insulin glargine 100 units/1 mL 20 UNIT SUBCUT (19:41)
[2025-06-15] MEDS: nitroglycerin 1 gm/inch oint Pkt 1 INCH TOPICAL (22:37)
[2025-06-16] VITALS (53 sets, daily range): BP systolic 87–171; BP diastolic 47–93; PULSE 75–90; RESP 9–27; TEMP 36.4–36.9; O2SAT 85–100
[2025-06-16] MEDS: oxyCODONE 5 mg IR Tab/Cap PO ×2 (04:01→10:31)
--- NOTE | 2025-06-16 04:10 | PC.NURSE ---
pt complaining of itching. Redness to arms and chest due to scratching but no identifiable rash. States he gets itchy after dialysis normally. Contacted Dr. Arambula, new order for ines received.
[2025-06-16 04:23] LABS: Cholesterol 185 mg/dL (0-200); HDL Cholesterol 32 mg/dL (60-100); Triglycerides 154 mg/dL (0-150)
[2025-06-16 04:26] LABS: Alanine Aminotransferase 13 U/L (0-41); Albumin Level 2.7 g/dL (3.5-5.2); Alkaline Phosphatase 82 U/L (40-130); Aspartate Amino Transferase 15 U/L (0-40); Blood Urea Nitrogen 36 mg/dL (6-20); Calcium 7.9 mg/dL (8.5-10.5); Carbon Dioxide 24 mmol/L (22-29); Chloride 98 mmol/L (98-107); Creatinine Clr Calc Pharmacy 23.4271; Globulin 2.6 g/dL (1.3-4.6); Glucose 254 mg/dL (65-115); Magnesium 2.1 mg/dL (1.7-2.3); Osmolality Calculated 297 mOsm/kg (285-295); Sodium 135 mmol/L (136-145); Total Protein 5.3 g/dL (6.6-8.7)
[2025-06-16 04:30] LABS: Anion Gap 17.6 (5-19); Potassium 4.6 mmol/L (3.5-5.1); Procalcitonin 0.69 ng/mL (0-0.5)
[2025-06-16] MEDS: morphine 4 mg/mL SDV 1 mL IVP ×3 (04:40→19:56)
[2025-06-16] MEDS: heparin 5,000 unit/mL INJ 1 mL 5000 UNIT SUBCUT (05:56)
[2025-06-16 06:36] LABS: Hemoglobin 7.10 g/dL (11.27-16.99); Mean Corpuscular HGB Conc 34.0 g/dL (30-55); Mean Corpuscular Hemoglobin 31.7 pg (27-33); Mean Corpuscular Volume 93.3 fl (82-101); Nucleated Red Blood Cells % 0 %; Platelet Count 160 10^3/cmm (157-399); Red Blood Count 2.24 10^6/uL (3.85-5.65); White Blood Count 6.57 10^3/uL (3.29-11.43)
--- NOTE | 2025-06-16 06:39 | P.PN_ITS ---
Subjective 2 Subjective: Patient seen and examined patient still complains of chest heaviness and shortness of breath. States he is breathing better. He has no nausea vomiting or diarrhea status post dialysis yesterday is off of the Cardene drip potassium improving. Blood pressure improving. Medications: Reviewed: Yes Medication Review Details: Current Medications Acetaminophen (Acetaminophen 325 Mg Tablet) 650 mg PO Q6H PRN PRN Reason: Mild/Mod Pain Or Temp >/= 101 Amitriptyline HCl (Amitriptyline 25 Mg Tablet) 50 mg PO BEDTIME [facility] Last Admin: 06/15/25 22:33 Dose: 50 mg Amlodipine Besylate (Amlodipine 10 Mg Tablet) 10 mg PO QAM [facility] Last Admin: 06/16/25 05:56 Dose: 10 mg Aripiprazole (Aripiprazole 10 Mg Tablet) 5 mg PO DAILY [facility] Aspirin (Aspirin 81 Mg Ec Tablet) 81 mg PO DAILY [facility] Atorvastatin Calcium (Atorvastatin 40 Mg Tablet) 80 mg PO BEDTIME [facility] Last Admin: 06/15/25 22:36 Dose: 80 mg Bupropion HCl (Bupropion Xl (24 Hr) 150 Mg Tablet) 150 mg PO DAILY [facility] Carvedilol (Carvedilol 25 Mg Tablet) 25 mg PO BID [facility] Last Admin: 06/15/25 18:23 Dose: 25 mg Clonidine HCl (Clonidine 0.1 Mg Tablet) 0.2 mg PO TID [facility] Last Admin: 06/15/25 22:35 Dose: 0.2 mg Diphenhydramine HCl (Diphenhydramine 25 Mg Capsule) 25 mg PO Q6H PRN PRN Reason: ITCHING Last Admin: 06/16/25 04:40 Dose: 25 mg Docusate Sodium (Docusate Sodium 100 Mg Capsule) 100 mg PO BID [facility] Last Admin: 06/15/25 19:00 Dose: 100 mg Doxazosin Mesylate (Doxazosin 4 Mg Tablet) 4 mg PO BEDTIME [facility] Last Admin: 06/15/25 22:32 Dose: 4 mg Gabapentin (Gabapentin 100 Mg Capsule) 200 mg PO TID [facility] Last Admin: 06/15/25 22:34 Dose: 200 mg Glucagon (Glucagon 1 Mg/Ml Kit 1 Ml) 1 mg IM ONCE PRN; Protocol PRN Reason: Adult Acute Hypoglycemia Nursing Prot. Heparin Sodium (Porcine) (Heparin 5,000 Unit/Ml Inj 1 Ml) 5,000 unit SUBCUT Q12H [facility] Last Admin: 06/16/25 05:56 Dose: 5,000 unit Hydralazine HCl (Hydralazine 25 Mg Tablet) 100 mg PO TID [facility] Last Admin: 06/15/25 22:32 Dose: 100 mg Sodium Chloride (Sodium Chloride 0.9%) 1,000 mls @ 0 mls/hr IV .Q0M PRN PRN Reason: hypotension or symptomatic Albumin Human (Albumin) 12.5 gm in 50 mls @ 60 mls/hr IV PRN PRN PRN Reason: Hypotension and/or symptomatic Nicardipine/Sodium Chloride (Cardene) 20 mg in 200 mls @ 0 mls/hr IV .Q0M [facility]; Protocol Last Titration: 06/16/25 01:17 Dose: 0 mg/hr, 0 mls/hr Dextrose (D5w) 500 mls @ 0 mls/hr IV ONCE PRN; Protocol PRN Reason: Adult Acute Hypoglycemia Prot Dextrose (D10w) 125 mls @ 750 mls/hr IV PRN PRN; Protocol PRN Reason: Adult Acute Hypoglycemia Nursing Protocol Dextrose (D10w) 250 mls @ 1,000 mls/hr IV PRN PRN; Protocol PRN Reason: Adult Acute Hypoglycemia Nursing Protocol Insulin Glargine (Insulin Glargine 100 Units/1 Ml) 20 unit SUBCUT BID [facility] Last Admin: 06/15/25 19:41 Dose: 20 unit Insulin Human Lispro (Insulin Lispro 100 Unit/1 Ml) 0 unit SUBCUT WM&BEDTIME [facility]; Protocol Last Admin: 06/15/25 22:36 Dose: 2 unit Isosorbide Mononitrate (Isosorbide Mononitrate Er 30 Mg Tablet) 30 mg PO DAILY [facility] Lactulose (Lactulose Oral Liq 20 Gm/30 Ml Udc) 10 gm PO DAILY PRN; Protocol PRN Reason: Constipation (see protocol) Magnesium Hydroxide (Magnesium Hydroxide 30 Ml Udc) 30 ml PO DAILY PRN; Protocol PRN Reason: Constipation (see protocol) Morphine Sulfate (Morphine 4 Mg/Ml Sdv 1 Ml) 4 mg IVP Q4H PRN PRN Reason: SEVERE PAIN Last Admin: 06/16/25 04:40 Dose: 4 mg Nitroglycerin (Nitroglycerin 1 Gm/Inch Oint Pkt) 1 inch TOPICAL Q6H [facility] Last Admin: 06/16/25 04:04 Dose: Not Given Ondansetron HCl (Ondansetron 2 Mg/Ml Sdv 2 Ml) 4 mg IVP Q6H PRN PRN Reason: vomiting, or N/V if npo Oxycodone HCl (Oxycodone 5 Mg Ir Tab/Cap) 5 mg PO Q6H PRN PRN Reason: PAIN Last Admin: 06/16/25 04:01 Dose: 5 mg Pantoprazole Sodium (Pantoprazole 40 Mg Sdv) 40 mg IVP Q24H [facility] Last Admin: 06/15/25 19:00 Dose: 40 mg Sevelamer Carbonate (Sevelamer 800 Mg Tablet) 800 mg PO TID [facility] Last Admin: 06/15/25 22:33 Dose: 800 mg Spironolactone (Spironolactone 25 Mg Tablet) 25 mg PO DAILY [facility] Vitals/I&O/Wt Last Vital Signs Temp 98.1 F 06/15/25 22:42 Pulse 78 06/16/25 05:15 Resp 17 06/16/25 05:15 BP 146/71 06/16/25 05:15 Pulse Ox 95 06/16/25 05:15 O2 Del Method Nasal Cannula 06/15/25 19:45 O2 Flow Rate 2 06/15/25 19:45 06/15/25 06/15/25 06/16/25 14:59 22:59 06:59 Intake Total 498.333 / 498.333 282.5 / 780.833 Output Total 4700 / 4700 Balance -4201.667 / -4201.667 282.5 / -3919.167 Weight last 48 hrs Weight 102.4 kg Weight 104.326 kg Weight 112.037 kg Weight 97.522 kg Physical Exam 2 Narrative: Vital signs noted. Patient lying in bed with head of bed raised. HEENT normocephalic atraumatic. Neck is supple. Lungs have dull right base left side clear per nurse. Scattered crackles. Heart regular. Abdomen is soft positive bowel sounds. Extremities no edema. Positive AV fistula. Data 06/15/25 10:18 06/16/25 03:30 Micro: Microbiology 06/15/25 16:00 Blood Culture - Preliminary Blood SPECIMEN COLLECTED 06/15/25 15:46 Blood Culture - Preliminary Blood SPECIMEN COLLECTED A&P Assessment and plan 1. End stage renal disease on dialysis due to type 1 diabetes mellitus: 34-year-old man 1. Diabetic control as per hospitalist. 2. Hypertensive urgency improved status post dialysis. We try to wean him off of clonidine as I am concerned he gets rebound hypertension when he misses doses 3. Hyperkalemia improved status post dialysis. 4. ESRD with moderate-sized pericardial effusion on CT scan however on echo with small to moderate pericardial effusion. It is unlikely to be a uremic pericarditis as his BUN has not been very elevated. Have we will do extra dialysis and would consider cardiology consult. The major question is whether we should do daily dialysis to help with treatment of effusion or whether his heart failure can be because of his pericardial effusion or we should be evaluating for another etiology. Please also check EKG to look for signs of pericarditis. 5. Echo reviewed grade 3-4 diastolic dysfunction, Left Ventricle Moderate concentric left ventricular hypertrophy. LV ejection fraction of 50 to 55%.. Mild hypokinesia of the inferior wall.Grade III/IV diastolic dysfunction (restrictive filling pattern), severely elevated filling pressures. And small to moderate pericardial effusion. The patient was seen and examined using A/V equipment the patient consented to telehealth and to hemodialysis. Plan: See above PDMP PDMP Reviewed: Not Reviewed Attestations 2 Medical Necessity Statement*: ESRD chest pain hypertension Time Spent in Patient Care: 16 - 35 minutes (>than 50% of time sp ent in counselling and/or direct pt care on unit) . Coding Level of Care Code Acute Code for Chg Fwd Diagnoses End stage renal disease on dialysis due to type 1 diabetes mellitus E10.22; N18.6; Z99.2
[2025-06-16 06:53] LABS: Hematocrit 20.9 % (37-53)
[2025-06-16] MEDS: nitroglycerin 1 gm/inch oint Pkt 1 INCH TOPICAL (08:34)
[2025-06-16] MEDS: insulin glargine 100 units/1 mL 20 UNIT SUBCUT ×2 (09:15→18:46)
[2025-06-16] MEDS: diphenhydrAMINE 50 mg/mL SDV 1mL IVP (10:32)
[2025-06-16] MEDS: pantoprazole 40 mg SDV IVP ×2 (10:33→23:09)
[2025-06-16] MEDS: sucralfate 1 gm/10 mL Oral Liq UDC PO ×3 (10:34→23:11)
[2025-06-16 11:01] LABS: Troponin T (5th) Once 370 ng/L (0-15)
--- NOTE | 2025-06-16 12:30 | PM.CONSULT ---
Providers/Reason For Consult Consulting Physician/Specialty*: Manish Crystal MD/ Cardiology Reason for Consult*: Chest pain Requesting Physician: Dr Fernandez Attending Physician: Humphrey Fernandez MD Primary Care Provider: Duke Alarcon History of Present Illness History of Present Illness Hunter San is a 34 year old male with past medical history of type 1 diabetes, end-stage renal disease on dialysis who was presented with chest pain. Substernal chest discomfort. Was found to have a very high blood pressure at presentation. Initial troponin was high at 370 and has trended down since. Has been having on and off chest discomfort. He has chronic anemia however hemoglobin has decreased more significantly today. Repeat labs are pending. Denies melena. EKG not showing significant ischemic changes. ECHO shows EF is mildly reduced and is 45%. Review of Systems Card: Reports: chest pain Medications/Allergies Home Medications ?Medication ?Instructions ?Recorded ?Confirmed ?Last Taken ?Type Intraoperative Neuromonitoring #1 ea 08/22/22 06/15/25 Unknown Rx insulin syringe-needle U-100 1 mL #100 ea 06/27/23 06/15/25 Unknown Rx 31 gauge x 5/16 (BD Insulin Syringe Ultra-Fine) pen needle, diabetic 32 gauge x #100 ea 06/27/23 06/15/25 Unknown Rx 1/4 (BD Ultra-Fine Micro Pen Needle) amlodipine 10 mg tablet 10 mg PO QAM 09/16/23 06/15/25 06/15/25 History blood sugar diagnostic (True #100 ea 10/04/23 06/15/25 Unknown Rx Metrix Glucose Test Strip) blood-glucose meter (True Metrix #1 ea 10/04/23 06/15/25 Unknown Rx Air Glucose Meter kit) lancets 31 gauge #100 ea 10/04/23 06/15/25 Unknown Rx blood-glucose sensor (Prieto Batterycom G7 #1 ea 10/21/23 06/15/25 Unknown History Sensor device) amitriptyline 50 mg tablet 50 mg PO BEDTIME 11/06/24 06/15/25 06/14/25 History bupropion HCl 150 mg 24 hr tablet, 150 mg PO DAILY 11/06/24 06/15/25 06/15/25 History extended release carvedilol 25 mg tablet 25 mg PO Q12H 11/06/24 06/15/2506/15/25 History epinephrine 0.3 mg/0.3 mL See Rx Instructions .Route .COMPLEX 11/06/24 06/15/25 Unknown History injection, auto-injector aripiprazole 5 mg tablet 5 mg PO DAILY 04/12/25 06/15/25 06/15/25 History aspirin 81 mg tablet,delayed 81 mg PO DAILY 04/12/25 06/15/25 06/15/25 History release atorvastatin 80 mg tablet 80 mg PO BEDTIME 04/12/25 06/15/25 06/14/25 History gabapentin 100 mg capsule 200 mg PO TID 04/12/25 06/15/25 06/15/25 History ondansetron 4 mg disintegrating 4 mg PO Q6H PRN nausea/emesis 04/12/25 06/15/25 Unknown History tablet bumetanide 1 mg tablet 1 mg PO DAILY #30 tabs 04/14/25 06/15/25 06/15/25 Rx hydralazine 100 mg tablet 100 mg PO BID #60 tabs 04/14/25 06/15/25 06/15/25 Rx insulin lispro 100 unit/mL See Rx Instructions .Route 04/14/25 06/15/25 06/15/25 Rx subcutaneous pen (Humalog KwikPen .COMPLEX #15 mL (U-100) Insulin) albuterol sulfate 90 mcg/actuation 2 puff inhalation Q6H PRN 06/15/25 06/15/25 Unknown History aerosol inhaler (Ventolin HFA) Shortness Of Breath clonidine HCl 0.2 mg tablet 0.2 mg PO TID 06/15/25 06/15/25 06/15/25 History doxazosin 4 mg tablet 4 mg PO BEDTIME 06/15/25 06/15/25 06/14/25 History insulin glargine 100 unit/mL (3 25 unit SUBCUT BID 06/15/25 06/15/25 06/15/25 History mL) subcutaneous pen (Lantus Solostar U-100 Insulin) insulin glargine-aglr 100 unit/mL 25 unit SUBCUT BID 06/15/25 06/15/25 Unknown History (3 mL) subcutaneous pen (Rezvoglar KwikPen) isosorbide mononitrate 30 mg 30 mg PO DAILY 06/15/25 06/15/25 06/15/25 History tablet,extended release 24 hr naloxone 4 mg/actuation nasal spray See Rx Instructions .Route .COMPLEX 06/15/25 06/15/25 Unknown History oxycodone 5 mg tablet 5 mg PO Q8H PRN Pain 06/15/25 06/15/25 Unknown History sevelamer carbonate 800 mg tablet 800 mg PO TID 06/15/25 06/15/25 06/15/25 History spironolactone 25 mg tablet 25 mg PO DAILY 06/15/25 06/15/25 06/15/25 History Allergies Allergy/AdvReac Type Severity Reaction Status Date / Time bee venom protein (honey bee) Allergy Unknown Verified 06/15/25 10:06 lisinopril Allergy Unknown Verified 06/15/25 10:06 Current Medications Generic Name Dose Route Start Last Admin Trade Name Freq PRN Reason Stop Dose Admin Amitriptyline HCl 50 mg 06/15/25 21:00 06/15/25 22:33 Amitriptyline 25 Mg Tablet PO 50 mg BEDTIME LILI Administration Amlodipine Besylate 10 mg 06/15/25 14:37 06/16/25 05:56 Amlodipine 10 Mg Tablet PO 10 mg QAM LILI Administration Aripiprazole 5 mg 06/16/25 09:00 06/16/25 08:26 Aripiprazole 10 Mg Tablet PO 5 mg DAILY LILI Administration Aspirin 81 mg 06/16/25 09:00 06/16/25 08:33 Aspirin 81 Mg Ec Tablet PO 81 mg DAILY LILI Administration Atorvastatin Calcium 80 mg 06/15/25 21:00 06/15/25 22:36 Atorvastatin 40 Mg Tablet PO 80 mg BEDTIME LILI Administration Bupropion HCl 150 mg 06/16/25 09:00 06/16/25 08:32 Bupropion Xl (24 Hr) 150 Mg Tablet PO 150 mg DAILY LILI Administration Carvedilol 25 mg 06/15/25 17:05 06/16/25 08:30 Carvedilol 25 Mg Tablet PO 25 mg BID LILI Administration Clonidine HCl 0.1 mg 06/16/25 09:00 06/16/25 08:29 Clonidine 0.1 Mg Tablet PO 0.1 mg TID LILI Administration Diphenhydramine HCl 25 mg 06/16/25 04:09 06/16/25 04:40 Diphenhydramine 25 Mg Capsule PO 25 mg Q6H PRN Administration ITCHING Diphenhydramine HCl 50 mg 06/16/25 09:05 06/16/25 10:32 Diphenhydramine 50 Mg/Ml Sdv 1ml IVP 50 mg ONCE PRN Administration ITCHING Docusate Sodium 100 mg 06/15/25 18:16 06/16/25 08:32 Docusate Sodium 100 Mg Capsule PO Not Given BID [facility] Doxazosin Mesylate 4 mg 06/15/25 21:00 06/15/25 22:32 Doxazosin 4 Mg Tablet PO 4 mg BEDTIME LILI Administration Gabapentin 200 mg 06/15/25 15:00 06/16/25 08:28 Gabapentin 100 Mg Capsule PO 200 mg TID [facility] Administration Heparin Sodium (Porcine) 5,000 unit 06/15/25 18:16 06/16/25 05:56 Heparin 5,000 Unit/Ml Inj 1 Ml SUBCUT 5,000 unit Q12H LILI Administration Hydralazine HCl 100 mg 06/15/25 15:00 06/16/25 08:31 Hydralazine 25 Mg Tablet PO 100 mg TID LILI Administration Nicardipine/Sodium Chloride 20 mg in 200 mls @ 0 mls/hr 06/15/25 14:45 06/16/25 01:17 Cardene IV 0 mg/hr .Q0M LILI 0 mls/hr Protocol Titration Per Protocol Insulin Glargine 20 unit 06/15/25 18:16 06/16/25 09:15 Insulin Glargine 100 Units/1 Ml SUBCUT 20 unit BID LILI Administration Insulin Human Lispro 0 unit 06/15/25 18:16 06/16/25 08:33 Insulin Lispro 100 Unit/1 Ml SUBCUT 4 unit WM&BEDTIME LILI Administration Protocol Isosorbide Mononitrate 30 mg 06/16/25 09:00 06/16/25 08:30 Isosorbide Mononitrate Er 30 Mg Tablet PO 30 mg DAILY [facility] Administration Morphine Sulfate 4 mg 06/15/25 23:15 06/16/25 04:40 Morphine 4 Mg/Ml Sdv 1 Ml IVP 4 mg Q4H PRN Administration SEVERE PAIN Nitroglycerin 1 inch 06/15/25 20:00 06/16/25 08:34 Nitroglycerin 1 Gm/Inch Oint Pkt TOPICAL 1 inch Q6H LILI Administration Oxycodone HCl 5 mg 06/15/25 18:16 06/16/25 10:31 Oxycodone 5 Mg Ir Tab/Cap PO 5 mg Q6H PRN Administration PAIN Pantoprazole Sodium 40 mg 06/16/25 10:18 06/16/25 10:33 Pantoprazole 40 Mg Sdv IVP 40 mg Q12H LILI Administration Spironolactone 25 mg 06/16/25 09:00 06/16/25 08:27 Spironolactone 25 Mg Tablet PO 25 mg DAILY LILI Administration Sucralfate 1 gm 06/16/25 11:00 06/16/25 10:34 Sucralfate 1 Gm/10 Ml Oral Liq Udc PO 1 gm AC&BEDTIME LILI Administration PFSH Acute PFSH: Medical History (Updated 06/17/25 @ 10:11 by Jesus Flynn MD) End stage renal disease on dialysis due to type 1 diabetes mellitus Chronic left-sided low back pain with left-sided sciatica Type 1 diabetes End stage renal disease on dialysis Opiate dependence Other stimulant abuse, uncomplicated Waking at night short of breath Snoring Hypersomnia Insomnia Noncompliance w/medication treatment due to intermit use of medication Schizophrenia Methamphetamine abuse Uncontrolled hypertension Family History Other CAD (coronary artery disease) Hypertension Stroke Social History Smoking and tobacco/nicotine status: current every day tobacco/nicotine user Alcohol intake: former Substance/Drug Use: former Date of last use: Amphetamines more than 62 days ago Caregiver/support person: Yes Lives independently: Yes Household members: other Current occupation: [employer] Vitals/I&O/Wt Last Vital Signs Temp 98.1 F 06/15/25 22:42 Pulse 80 06/16/25 08:34 Resp 27 H 06/16/25 10:31 BP 156/82 06/16/25 08:34 Pulse Ox 95 06/16/25 10:31 O2 Del Method Nasal Cannula 06/15/25 19:45 O2 Flow Rate 2 06/15/25 19:45 06/15/25 06/16/25 06/16/25 22:59 06:59 14:59 Intake Total 498.333 / 498.333 282.5 / 780.833 Output Total 4700 / 4700 400 / 5100 Balance -4201.667 / -4201.667 -117.5 / -4319.167 Weight last 48 hrs Weight 225 lb 12.054 oz Weight 230 lb Weight 247 lb Weight 215 lb Physical Exam Narrative: GENERAL: Patient is alert, awake and oriented x3. [] NECK: No jugular vein distension. [] HEENT: No cyanosis. No icterus. No pallor. [] HEART: Regular S1 and S2. No murmur, rub or gallop. [] LUNGS: Clear to auscultate bilaterally. [] CENTRAL NERVOUS SYSTEM: Grossly nonfocal. [] EXTREMITIES: Lower extremities with 1+ edema bilaterally Data 06/17/25 05:03 06/17/25 05:03 Micro: Microbiology 06/15/25 16:00 Blood Culture - Preliminary Blood SPECIMEN COLLECTED 06/15/25 15:46 Blood Culture - Preliminary Blood SPECIMEN COLLECTED A&P Assessment and plan 1. Chest pain: 2. Hypertensive urgency: 3. Hyperlipemia, mixed: 4. Elevated troponin: 5. Acute on chronic systolic congestive heart failure: Plan: Patient has chest pain symptoms with both typical and atypical features. He has risk factors for CAD. Troponins are significantly elevated. EF is reduced. Will proceed with coronary angiogram once GI bleed is ruled out and hemoglobin is stable. Thank you for involving us with care of this patient. Please call with questions. PDMP PDMP Reviewed: Not Reviewed Consult Attestations Medical Necessity Statement: Care expected to cross 2 midnights. Coding Level of Care Code Acute Code for [facility] Diagnoses Chest pain R07.9 Hypertensive urgency I16.0 Hyperlipemia, mixed E78.2 Elevated troponin R79.89 Acute on chronic systolic congestive heart failure I50.23 Heart failure type: systolic Heart failure chronicity: acute on chronic
[2025-06-16 13:07] LABS: Hemoglobin 6.80 g/dL (11.27-16.99); Mean Corpuscular HGB Conc 33.3 g/dL (30-55); Mean Corpuscular Hemoglobin 31.5 pg (27-33); Mean Corpuscular Volume 94.4 fl (82-101); Nucleated Red Blood Cells % 0 %; Platelet Count 172 10^3/cmm (157-399); Red Blood Count 2.16 10^6/uL (3.85-5.65); White Blood Count 2.50 10^3/uL (3.29-11.43)
--- NOTE | 2025-06-16 13:39 | PC.NURSE ---
Pt's family brought in a 12 inch sub sandwich for him.
--- NOTE | 2025-06-16 14:00 | PC.NURSE ---
Pt able to urinate. Urine sent to lab.
--- NOTE | 2025-06-16 14:09 | P.PN_ITS ---
Subjective 2 Subjective: Patient underwent dialysis yesterday. Blood pressure better today. Off nicardipine drip. Continues to complain of chest pain and chest heaviness. States he feels as if an elephant is sitting his chest. Denies any nausea, vomiting. Vitals/I&O/Wt Last Vital Signs Temp 98.1 F 06/15/25 22:42 Pulse 80 06/16/25 08:34 Resp 14 06/16/25 13:10 BP 156/82 06/16/25 08:34 Pulse Ox 96 06/16/25 13:10 O2 Del Method Nasal Cannula 06/15/25 19:45 O2 Flow Rate 2 06/15/25 19:45 06/15/25 06/16/25 06/16/25 22:59 06:59 14:59 Intake Total 498.333 / 498.333 282.5 / 780.833 Output Total 4700 / 4700 400 / 5100 Balance -4201.667 / -4201.667 -117.5 / -4319.167 Weight last 48 hrs Weight 102.4 kg Weight 104.326 kg Weight 112.037 kg Weight 97.522 kg Physical Exam 2 Narrative: General: No acute distress, AO x3 HEENT: PERRLA, pupils bilaterally equal and reactive Chest: Normal vesicular breath sounds, no added sounds, equal good air entry bilaterally CVS: S1-S2 regular, no murmurs, no tachycardia, no gallops, no rubs Abdomen: Soft, nontender, no organomegaly, bowel sounds present Neuro: No focal deficits, no facial deformity, AO x3, power 5/5 in all limbs Data 06/16/25 06:23 06/16/25 03:30 Micro: Microbiology 06/15/25 16:00 Blood Culture - Preliminary Blood SPECIMEN COLLECTED 06/15/25 15:46 Blood Culture - Preliminary Blood SPECIMEN COLLECTED A&P Assessment and plan 1. Hypertensive emergency: Goal blood pressure less than 160 systolic. Patient takes multiple antihypertensive at home including hydralazine 100 mg 3 times daily, 30 mg Imdur, clonidine 0.2 mg patch, 10 mg amlodipine, 25 mg twice daily Coreg. Continue with hydralazine 100 mg 3 times a day, Imdur, clonidine 0.1 3 times daily, amlodipine 10 mg daily, Coreg 25 mg twice daily. Cardene drip for now withheld. Continue to monitor blood pressure and will start Cardene drip if needed. 2. Chest pain: With elevated troponin. Delta troponin negative. Continues to complain of chest pain. Repeat troponin today morning. Hold off on adding heparin drip due to acute anemia. Will consult cardiology further recommendations. Patient will most likely need further ACS workup once anemia is worked up/ruled out. Appreciate echocardiogram. Appreciate A1c, lipid panel. 3. Acute on chronic systolic congestive heart failure: Repeat echocardiogram shows EF of 50 to 55%, mild hypokinesia of inferior wall, mildly increased LA size, mild MR with PASP of 41 mmHg. Continue dialysis as needed. Oxygen supplementation keeping saturation over 90%. Strict input output charting. 4. Anemia: Baseline hemoglobin around 8.4-9.6. Hemoglobin down to 7.1 today. Patient denies any melena. Not sure of source of anemia. Does have mild leukopenia. Platelet count stable. LFTs normal. Bilirubin normal. Repeat hemoglobin to confirm actual anemia. If hemoglobin persistently low will transfuse monitor PRBC with target of hemoglobin more than 8. Check reticulocyte count, haptoglobin, DIC panel, LDH, stool for occult blood, CT abdomen pelvis with contrast to rule out bleed. Did have recent bacteremia. Requested documents from outpatient/outside hospital. Cannot rule out myelosuppression in setting of bacteremia. GI bleed less likely. Check stool for occult blood. Protonix twice daily, Carafate ACHS. 5. Type 1 diabetes: A1c of 6.7. Continue with Lantus 20 units twice daily, insulin sliding scale. 6. Breath shortness: Due to congestive heart failure and hypertensive emergency. 7. End stage renal disease on dialysis due to type 1 diabetes mellitus: Nephrology consulted. Appreciate recommendations. Continue dialysis Saturday, , Saturday. 8. Elevated troponin: Plan: Possible recent bacteremia: Will request documents from outpatient nephrology dialysis center and outside hospital. Check blood culture. Urine drug screen. Hold off on antibiotics for now. Full code Renal diabetic diet SCD for DVT prophylax Protonix for PUD prophylaxis PDMP PDMP Reviewed: Not Reviewed Attestations 2 Medical Necessity Statement*: Requires further hospitalization for management of chest pain in setting of anemia in a patient with acute on chronic systolic heart failure, hypertensive emergency in a patient with history of type 1 diabetes mellitus, end-stage renal disease while anemia is further worked up Diagnoses Hypertensive emergency I16.1 Chest pain R07.9 Acute on chronic systolic congestive heart failure I50.23 Heart failure type: systolic Heart failure chronicity: acute on chronic Anemia D64.9 Type 1 diabetes E10.9 Breath shortness R06.02 End stage renal disease on dialysis due to type 1 diabetes mellitus E10.22; N18.6; Z99.2 Elevated troponin R79.89
[2025-06-16 14:12] LABS: Hematocrit 20.4 % (37-53)
--- NOTE | 2025-06-16 14:13 | CTR_ITS ---
PROCEDURE INFORMATION: Exam: CT Abdomen And Pelvis With Contrast Exam date and time: 06/16/2025 8:38 PM Age: 34 years old Clinical indication: Other: Anemia; Prior surgery; Surgery date: 6+ months; Surgery type: Lspine; Additional info: Acute anemia TECHNIQUE: Imaging protocol: Computed tomography of the abdomen and pelvis with contrast. Radiation optimization: All CT scans at this facility use at least one of these dose optimization techniques: automated exposure control; mA and/or kV adjustment per patient size (includes targeted exams where dose is matched to clinical indication); or iterative reconstruction. Contrast material: OMNIPAQUE 350; Contrast volume: 100 ml; Contrast route: INTRAVENOUS (IV); COMPARISON: CR XR lumbar spine 2-3V* [id number] 04/19/2025 9:49 AM RADIATION DOSE METRICS: Total DLP (mGy-cm): 907.73 FINDINGS: Lungs: Left basilar consolidation. Mild right basilar atelectasis. Pleural spaces: Small left pleural effusion. Heart: Moderate pericardial effusion measuring up to 1.9 cm in thickness. Liver: The liver is enlarged, measuring 24.2 cm craniocaudal. Gallbladder and biliary ducts: Normal. No calcified stones. No ductal dilation. Pancreas: Normal. No ductal dilation. Spleen: The spleen measures 14.7 cm craniocaudal. Adrenal glands: Normal. No mass. Kidneys and ureters: Normal. No hydronephrosis. Stomach and bowel: Mild sigmoid diverticulosis without diverticulitis. The stomach is moderately distended with retained debris. Layering ill-defined hyperdensity within the stomach, including the gastric body in the antrum. No bowel obstruction. Appendix: No evidence of appendicitis. Intraperitoneal space: Unremarkable. No free air. No significant fluid collection. Vasculature: Mild atherosclerotic aortoiliac calcifications. No abdominal aortic aneurysm. Lymph nodes: Unremarkable. No enlarged lymph nodes. Urinary bladder: Hyperdense fluid within the urinary bladder. Reproductive: Unremarkable as visualized. Bones/joints: Posterior instrumented fusion from L3 through S2 with interbody cage graft and multilevel laminectomies. Screws also traverse the sacroiliac joints into the iliac bones bilaterally. Soft tissues: Tiny fat containing umbilical hernia. CT/CT abdomen pelvis w con* [id number] IMPRESSION: 1. Ill-defined layering hyperdensity within the stomach could represent ingested material. However, active bleeding is not entirely excluded. Assessment is limited on this single phase of contrast. Correlate with clinical findings and consider direct visualization if warranted. 2. Moderate pericardial effusion. This could be further assessed with echocardiogram. 3. Small left pleural effusion with left basilar consolidation worrisome for infection/aspiration. 4. Hepatosplenomegaly. 5. Hyperdense fluid within the urinary bladder could represent concentrated urine, though hematuria is also not excluded.
[2025-06-16 14:26] LABS: Glucose Urine UA 2+ (Normal); Nitrate Urine Negative (Negative); Specific Gravity, Urine 1.027 (1.005-1.030)
[2025-06-16 14:31] LABS: Add Urine Microscopic? YES
[2025-06-16 14:38] LABS: PCP Screen Urine Negative (Negative)
[2025-06-16 15:56] LABS: HIV 1 & 2 Antigen Non-Reactive (Non-Reactiv)
[2025-06-16 16:01] LABS: Reflex FDPQ test REFLEX FDP QUEST TES
[2025-06-16 16:26] LABS: INR 1.00 (0.8-1.2); Prothrombin Time 13.90 SECONDS (12.1-14.9)
[2025-06-16 16:27] LABS: Partial Thromboplastin Time 37.1 SECONDS (23.9-36.7)
[2025-06-16 16:28] LABS: Fibrinogen 666 mg/dL (174-498)
[2025-06-16 18:25] LABS: Coronavirus 229E,HKU1,NL63,OC4 Not Detected (NOT DETECT); Parainfluenza Virus Type 1 Not Detected (NOT DETECT); Parainfluenza Virus Type 2 Not Detected (NOT DETECT); Parainfluenza Virus Type 3 Not Detected (NOT DETECT); Parainfluenza Virus Type 4 Not Detected (NOT DETECT); SARS-COV-2 Not Detected (NOT DETECT)
--- NOTE | 2025-06-16 20:06 | PC.NURSE ---
Shift summary: Pt rested in bed throughout shift with a trip to the bathroom once. Pt had no issues amb through his room, gait steady. dialysis completed this afternoon, 2500ml out. Pt tolerated very well. No BP, issues, or N/V. His Left AC IV migrated out. New IV to LEft forearm, 2 attempts with US made. VSS. Pt has reported chest and back pain this am. Just reported back back later on. He stated the Oxy IR really did not help. He preferred the morphine 4mg to OXY IR. He also stated when I come in here they usually give me two syringes of Dilaudid for my back pain. He received diphehydramine twice this shift, once IV and one time PO for puritis. Nitro paste discontinued today. HGb low, 1 unit of PRBCs ordered. He only urinated once about 110 ml, enough to send to lab for urinalysis.
[2025-06-16] MEDS: iohexol 350 mg/mL 500 mL Btl (per mL) IV (20:44)
[2025-06-17] VITALS (33 sets, daily range): BP systolic 122–186; BP diastolic 57–96; PULSE 74–90; RESP 10–31; TEMP 36.9; O2SAT 84–100
[2025-06-17 05:30] LABS: Hematocrit 23.9 % (37-53); Hemoglobin 8.00 g/dL (11.27-16.99); Mean Corpuscular HGB Conc 33.5 g/dL (30-55); Mean Corpuscular Hemoglobin 31.1 pg (27-33); Mean Corpuscular Volume 93.0 fl (82-101); Nucleated Red Blood Cells % 0 %; Platelet Count 204 10^3/cmm (157-399); Red Blood Count 2.57 10^6/uL (3.85-5.65); White Blood Count 5.63 10^3/uL (3.29-11.43)
[2025-06-17 05:53] LABS: Alanine Aminotransferase 13 U/L (0-41); Albumin Level 2.9 g/dL (3.5-5.2); Alkaline Phosphatase 88 U/L (40-130); Anion Gap 16.0 (5-19); Aspartate Amino Transferase 13 U/L (0-40); Blood Urea Nitrogen 29 mg/dL (6-20); Calcium 8.1 mg/dL (8.5-10.5); Carbon Dioxide 25 mmol/L (22-29); Chloride 101 mmol/L (98-107); Creatinine Clr Calc Pharmacy 24.9527; Globulin 3.0 g/dL (1.3-4.6); Glucose 113 mg/dL (65-115); Magnesium 2.2 mg/dL (1.7-2.3); Osmolality Calculated 291 mOsm/kg (285-295); Potassium 5.0 mmol/L (3.5-5.1); Sodium 137 mmol/L (136-145); Total Protein 5.9 g/dL (6.6-8.7)
[2025-06-17] MEDS: sucralfate 1 gm/10 mL Oral Liq UDC PO ×5 (06:26→20:34)
[2025-06-17] MEDS: insulin glargine 100 units/1 mL 20 UNIT SUBCUT ×2 (08:29→17:10)
[2025-06-17] MEDS: morphine 4 mg/mL SDV 1 mL IVP ×4 (08:32→23:05)
--- NOTE | 2025-06-17 09:07 | PM.CONSULT ---
Providers/Reason For Consult Consulting Physician/Specialty*: dr flynn gen surg Reason for Consult*: UGIB Attending Physician: Humphrey Fernandez MD Primary Care Provider: Duke Alarcon History of Present Illness History of Present Illness Hunter San is a 34 year old male who presented whom surgery is consulted to rule out UGIB. CT scan shows some layering in the stomach suspiscious for GIB. No melena, no hematochezia, no hematemesis. Medications/Allergies Home Medications ?Medication ?Instructions ?Recorded ?Confirmed ?Last Taken ?Type Intraoperative Neuromonitoring #1 ea 08/22/22 06/15/25 Unknown Rx insulin syringe-needle U-100 1 mL #100 ea 06/27/23 06/15/25 Unknown Rx 31 gauge x 5/16 (BD Insulin Syringe Ultra-Fine) pen needle, diabetic 32 gauge x #100 ea 06/27/23 06/15/25 Unknown Rx 1/4 (BD Ultra-Fine Micro Pen Needle) amlodipine 10 mg tablet 10 mg PO QAM 09/16/23 06/15/25 06/15/25 History blood sugar diagnostic (True #100 ea 10/04/23 06/15/25 Unknown Rx Metrix Glucose Test Strip) blood-glucose meter (True Metrix #1 ea 10/04/23 06/15/25 Unknown Rx Air Glucose Meter kit) lancets 31 gauge #100 ea 10/04/23 06/15/25 Unknown Rx blood-glucose sensor (Dexcom G7 #1 ea 10/21/23 06/15/25 Unknown History Sensor device) amitriptyline 50 mg tablet 50 mg PO BEDTIME 11/06/24 06/15/25 06/14/25 History bupropion HCl 150 mg 24 hr tablet, 150 mg PO DAILY 11/06/24 06/15/25 06/15/25 History extended release carvedilol 25 mg tablet 25 mg PO Q12H 11/06/24 06/15/25 06/15/25 History epinephrine 0.3 mg/0.3 mL See Rx Instructions .Route .COMPLEX 11/06/24 06/15/25 Unknown History injection, auto-injector aripiprazole 5 mg tablet 5 mg PO DAILY 04/12/25 06/15/25 06/15/25 History aspirin 81 mg tablet,delayed 81 mg PO DAILY 04/12/25 06/15/25 06/15/25 History release atorvastatin 80 mg tablet 80 mg PO BEDTIME 04/12/25 06/15/25 06/14/25 History gabapentin 100 mg capsule 200 mg PO TID 04/12/25 06/15/25 06/15/25 History ondansetron 4 mg disintegrating 4 mg PO Q6H PRN nausea/emesis 04/12/25 06/15/25 Unknown History tablet bumetanide 1 mg tablet 1 mg PO DAILY #30 tabs 04/14/25 06/15/25 06/15/25 Rx hydralazine 100 mg tablet 100 mg PO BID #60 tabs 04/14/25 06/15/25 06/15/25 Rx insulin lispro 100 unit/mL See Rx Instructions .Route 04/14/25 06/15/25 06/15/25 Rx subcutaneous pen (Humalog KwikPen .COMPLEX #15 mL (U-100) Insulin) albuterol sulfate 90 mcg/actuation 2 puff inhalation Q6H PRN 06/15/25 06/15/25 Unknown History aerosol inhaler (Ventolin HFA) Shortness Of Breath clonidine HCl 0.2 mg tablet 0.2 mg PO TID 06/15/25 06/15/25 06/15/25 History doxazosin 4 mg tablet 4 mg PO BEDTIME 06/15/25 06/15/25 06/14/25 History insulin glargine 100 unit/mL (3 25 unit SUBCUT BID 06/15/25 06/15/25 06/15/25 History mL) subcutaneous pen (Lantus Solostar U-100 Insulin) insulin glargine-aglr 100 unit/mL 25 unit SUBCUT BID 06/15/25 06/15/25 Unknown History (3 mL) subcutaneous pen (Rezvoglar KwikPen) isosorbide mononitrate 30 mg 30 mg PO DAILY 06/15/25 06/15/25 06/15/25 History tablet,extended release 24 hr naloxone 4 mg/actuation nasal spray See Rx Instructions .Route .COMPLEX 06/15/25 06/15/25 Unknown History oxycodone 5 mg tablet 5 mg PO Q8H PRN Pain 06/15/25 06/15/25 Unknown History sevelamer carbonate 800 mg tablet 800 mg PO TID 06/15/25 06/15/25 06/15/25 History spironolactone 25 mg tablet 25 mg PO DAILY 06/15/25 06/15/25 06/15/25 History Allergies Allergy/AdvReac Type Severity Reaction Status Date / Time bee venom protein (honey bee) Allergy Unknown Verified 06/15/25 10:06 lisinopril Allergy Unknown Verified 06/15/25 10:06 Current Medications Generic Name Dose Route Start Last Admin Trade Name [facility] PRN Reason Stop Dose Admin Amitriptyline HCl 50 mg 06/15/25 21:00 06/16/25 21:24 Amitriptyline 25 Mg Tablet PO 50 mg BEDTIME LILI Administration Amlodipine Besylate 10 mg 06/15/25 14:37 06/17/25 06:26 Amlodipine 10 Mg Tablet PO 10 mg QAM LILI Administration Aripiprazole 5 mg 06/16/25 09:00 06/17/25 08:31 Aripiprazole 10 Mg Tablet PO 5 mg DAILY LILI Administration Aspirin 81 mg 06/16/25 09:00 06/17/25 08:30 Aspirin 81 Mg Ec Tablet PO 81 mg DAILY LILI Administration Atorvastatin Calcium 80 mg 06/15/25 21:00 06/16/25 21:24 Atorvastatin 40 Mg Tablet PO 80 mg BEDTIME LILI Administration Bupropion HCl 150 mg 06/16/25 09:00 06/17/25 08:30 Bupropion Xl (24 Hr) 150 Mg Tablet PO 150 mg DAILY LILI Administration Carvedilol 25 mg 06/15/25 17:05 06/17/25 08:31 Carvedilol 25 Mg Tablet PO 25 mg BID LILI Administration Clonidine HCl 0.1 mg 06/16/25 09:00 06/17/25 08:30 Clonidine 0.1 Mg Tablet PO 0.1 mg TID LILI Administration Diphenhydramine HCl 25 mg 06/16/25 14:09 06/16/25 18:08 Diphenhydramine 25 Mg Capsule PO 25 mg Q8H PRN Administration ITCHING Docusate Sodium 100 mg 06/15/25 18:16 06/17/25 08:30 Docusate Sodium 100 Mg Capsule PO 100 mg BID LILI Administration Doxazosin Mesylate 4 mg 06/15/25 21:00 06/16/25 21:25 Doxazosin 4 Mg Tablet PO 4 mg BEDTIME LILI Administration Gabapentin 200 mg 06/15/25 15:00 06/17/25 08:31 Gabapentin 100 Mg Capsule PO 200 mg TID LILI Administration Hydralazine HCl 100 mg 06/15/25 15:00 06/17/25 08:31 Hydralazine 25 Mg Tablet PO 100 mg TID LILI Administration Nicardipine/Sodium Chloride 20 mg in 200 mls @ 0 mls/hr 06/15/25 14:45 06/16/25 07:00 Cardene IV Infused .Q0M LILI Titration Protocol Per Protocol Insulin Glargine 20 unit 06/15/25 18:16 06/17/25 08:29 Insulin Glargine 100 Units/1 Ml SUBCUT 20 unit BID LILI Administration Insulin Human Lispro 0 unit 06/15/25 18:16 06/17/25 08:31 Insulin Lispro 100 Unit/1 Ml SUBCUT Not Given WM&BEDTIME LILI Protocol Isosorbide Mononitrate 30 mg 06/16/25 09:00 06/17/25 08:29 Isosorbide Mononitrate Er 30 Mg Tablet PO 30 mg DAILY LILI Administration Morphine Sulfate 4 mg 06/15/25 23:15 06/17/25 08:32 Morphine 4 Mg/Ml Sdv 1 Ml IVP 4 mg Q4H PRN Administration SEVERE PAIN Oxycodone HCl 5 mg 06/15/25 18:16 06/16/25 10:31 Oxycodone 5 Mg Ir Tab/Cap PO 5 mg Q6H PRN Administration PAIN Pantoprazole Sodium 40 mg 06/16/25 10:18 06/16/25 23:09 Pantoprazole 40 Mg Sdv IVP 40 mg Q12H LILI Administration Sevelamer Carbonate 800 mg 06/16/25 12:00 06/17/25 08:29 Sevelamer 800 Mg Tablet PO 800 mg TIDWM LILI Administration Spironolactone 25 mg 06/16/25 09:00 06/17/25 08:30 Spironolactone 25 Mg Tablet PO 25 mg DAILY LILI Administration Sucralfate 1 gm 06/16/25 11:00 06/17/25 06:26 Sucralfate 1 Gm/10 Ml Oral Liq Udc PO 1 gm AC&BEDTIME LILI Administration PFSH Acute PFSH: Medical History (Updated 06/17/25 @ 10:11 by Jesus Flynn MD) End stage renal disease on dialysis due to type 1 diabetes mellitus Chronic left-sided low back pain with left-sided sciatica Type 1 diabetes End stage renal disease on dialysis Opiate dependence Other stimulant abuse, uncomplicated Waking at night short of breath Snoring Hypersomnia Insomnia Noncompliance w/medication treatment due to intermit use of medication Schizophrenia Methamphetamine abuse Uncontrolled hypertension Family History Other CAD (coronary artery disease) Hypertension Stroke Social History Smoking and tobacco/nicotine status: current every day tobacco/nicotine user Alcohol intake: former Substance/Drug Use: former Date of last use: Amphetamines more than 62 days ago Caregiver/support person: Yes Lives independently: Yes Household members: other Current occupation: [employer] Vitals/I&O/Wt Last Vital Signs Temp 97.5 F L 06/16/25 23:05 Pulse 86 06/17/25 08:24 Resp 18 06/17/25 08:32 BP 130/68 06/17/25 08:30 Pulse Ox 98 06/17/25 08:24 O2 Del Method Room Air 06/17/25 08:24 O2 Flow Rate 2 06/16/25 11:00 06/16/25 06/17/25 06/17/25 22:59 06:59 14:59 Intake Total 680 / 1790 200 / 1990 Balance 680 / -1320 200 / -1120 Weight last 48 hrs Weight 224 lb 12.8 oz Weight 219 lb 12.814 oz Weight 225 lb 12.054 oz Weight 230 lb Weight 247 lb Weight 215 lb Physical Exam Narrative: rrr unlabored breathing ra abdomen soft, nt, nd Data 06/17/25 05:03 06/17/25 05:03 Micro: Microbiology 06/15/25 16:00 Blood Culture - Preliminary Blood NEGATIVE TO DATE 06/15/25 15:46 Blood Culture - Preliminary Blood NEGATIVE TO DATE A&P Assessment and plan 1. GIB (gastrointestinal bleeding): Plan: 34 yo male whom surgery was consulted to rule out UGIB. Discussed risks and benefits and patient agreed to proceed with EGD, possible hemostasis PDMP PDMP Reviewed: Not Reviewed Coding Level of Care Code 09241 Diagnoses GIB (gastrointestinal bleeding) K92.2
--- NOTE | 2025-06-17 09:33 | P.PN_ITS ---
<Statement entered by Manish Crystal M.D - 06/24/25 11:41> Patient was cared for in conjunction with an advanced practice practitioner.? I reviewed the chart and all pertinent data including imaging, telemetry, and laboratory results.? I discussed the patient in detail with the advanced practice practitioner.? Please see their note for complete progress note, testing results and agreed upon plan of care for the patient. Subjective 2 Subjective: He has some pressure in the chest when he lays flat, relieved by laying on his side. No shortness of breath, no LE edema. Vitals/I&O/Wt Last Vital Signs Temp 97.5 F L 06/16/25 23:05 Pulse 86 06/17/25 08:24 Resp 18 06/17/25 08:32 BP 130/68 06/17/25 08:30 Pulse Ox 98 06/17/25 08:24 O2 Del Method Room Air 06/17/25 08:24 O2 Flow Rate 2 06/16/25 11:00 06/16/25 06/17/25 06/17/25 22:59 06:59 14:59 Intake Total 1989 / 1989 Balance 680 / -1120 200 / -1120 Weight last 48 hrs Weight 224 lb 12.8 oz Weight 219 lb 12.814 oz Weight 225 lb 12.054 oz Weight 230 lb Weight 247 lb Weight 215 lb Physical Exam 2 Const: COMMON NORMALS: no acute distress and patient oriented x3 GENERAL APPEARANCE: cooperative and comfortable ORIENTATION/CONSCIOUSNESS: Yes awake, Yes oriented to person, Yes oriented to place and Yes oriented to time Chest: COMMONS NORMALS: normal inspection of the chest and normal palpation of entire chest wall CHEST: Yes Symmetrical chest wall rise Resp: COMMON NORMALS: normal respiratory effort, No retractions, No use of accessory muscles and clear to auscultation bilaterally EFFORT & INSPECTION: Yes symmetric chest movement AUSCULTATION: clear to auscultation bilaterally Cardio: COMMON NORMALS: regular rate, regular rhythm, S1 normal heart sound present, S2 normal heart sound present, No gallops present (Cardio), No clicks present (Cardio), No murmurs present (Cardio) and No rub (Cardio) RATE: r egular rate RHYTHM: regular rhythm HEART SOUNDS: S1 normal heart sound present and S2 normal heart sound present PERIPHERAL PULSES: radial pulses present Extremity: COMMON NORMALS: no pedal edema Neuro: COMMON NORMALS: patient oriented x3 and moves all extremities S ENSORIUM/ORIENTATION: Yes oriented to person, Yes oriented to place and Yes oriented to time Data 06/17/25 05:03 06/17/25 05:03 Micro: Microbiology 06/16/25 13:55 Urine Culture - Preliminary Urine,Clean Catch 06/15/25 16:00 Blood Culture - Preliminary Blood NEGATIVE TO DATE 06/15/25 15:46 Blood Culture - Preliminary Blood NEGATIVE TO DATE A&P Assessment and plan 1. Hypertensive urgency: 2. Acute on chronic systolic congestive heart failure: 3. Elevated troponin: 4. Type 1 diabetes: 5. End stage renal disease on dialysis due to type 1 diabetes mellitus: 6. Chest pain: Plan: He has small pericardial effusion, no hemodynamic compromise. Will continue to monitor. He had a drop in hemoglobin, received blood transfusion, hemoglobin 8.0 today. Plan is for EGD today to determine source of bleeding prior to coronary angiogram. He is at acceptable low to moderate cardiac risk for anesthesia. He appears euvolemic. No significant uptrend in troponin, no EKG changes or arrhythmias noted. Blood pressure well controlled currently. Continue carvedilol, statin, isosorbide, clonidine, amlodipine. Cardene infusion discontinued. PDMP PDMP Reviewed: Not Reviewed Attestations 2 Medical Necessity Statement*: ischemic workup Coding Level of Care Code Acute Code for [facility] Fwd Diagnoses Hypertensive urgency I16.0 Acute on chronic systolic congestive heart failure I50.23 Heart failure type: systolic Heart failure chronicity: acute on chronic Elevated troponin R79.89 Type 1 diabetes E10.9 End stage renal disease on dialysis due to type 1 diabetes mellitus E10.22; N18.6; Z99.2 Chest pain R07.9
--- NOTE | 2025-06-17 09:55 | ANES.PREANE2 ---
Pre-Anesthetic Assessment Height/Weight: Height 1.83 m Weight 101.968 kg Temp Pulse Resp BP Pulse Ox O2 Del Method O2 Flow Rate 97.5 F L 86 18 130/68 98 Room Air 2 06/16/25 23:05 06/17/25 08:24 06/17/25 08:32 06/17/25 08:30 06/17/25 08:24 06/17/25 08:24 06/16/25 11:00 Operation Date: 06/17/25 10:30 Proposed Procedures p EGD(Not Applicable) - Jesus Flynn MD Familial anesthetic complications: none Last intake: > 8 hrs Social No alcohol and No tobacco Exam alert, oriented x 3, clear to auscultation bilaterally and regular rate & rhythm CV/HEM Unstable Angina and Hypertension Chronic Renal Insufficiency Metabolic Diabetes Mellitus (type I) Anesthetic Plan ASA status: 4 Anesthesia: MAC Risk of > 500 ml blood loss (7ml/kg in children): No Medications/Allergies Home Medications ?Medication ?Instructions ?Recorded ?Confirmed ?Last Taken ?Type Intraoperative Neuromonitoring #1 ea 08/22/22 06/15/25 Unknown Rx insulin syringe-needle U-100 1 mL #100 ea 06/27/23 06/15/25 Unknown Rx 31 gauge x 5/16 (BD Insulin Syringe Ultra-Fine) pen needle, diabetic 32 gauge x #100 ea 06/27/23 06/15/25 Unknown Rx 1/4 (BD Ultra-Fine Micro Pen Needle) amlodipine 10 mg tablet 10 mg PO QAM 09/16/23 06/15/25 06/15/25 History blood sugar diagnostic (True #100 ea 10/04/23 06/15/25 Unknown Rx Metrix Glucose Test Strip) blood-glucose meter (True Metrix #1 ea 10/04/23 06/15/25 Unknown Rx Air Glucose Meter kit) lancets 31 gauge #100 ea 10/04/23 06/15/25 Unknown Rx blood-glucose sensor (Beststudy G7 #1 ea 10/21/23 06/15/25 Unknown History Sensor device) amitriptyline 50 mg tablet 50 mg PO BEDTIME 11/06/24 06/15/25 06/14/25 History bupropion HCl 150 mg 24 hr tablet, 150 mg PO DAILY 11/06/24 06/15/25 06/15/25 History extended release carvedilol 25 mg tablet 25 mg PO Q12H 11/06/24 06/15/25 06/15/25 History epinephrine 0.3 mg/0.3 mL See Rx Instructions .Route .COMPLEX 11/06/24 06/15/25 Unknown History injection, auto-injector aripiprazole 5 mg tablet 5 mg PO DAILY 04/12/25 06/15/25 06/15/25 History aspirin 81 mg tablet,delayed 81 mg PO DAILY 04/12/25 06/15/25 06/15/25 History release atorvastatin 80 mg tablet 80 mg PO BEDTIME 04/12/25 06/15/25 06/14/25 History gabapentin 100 mg capsule 200 mg PO TID 04/12/25 06/15/25 06/15/25 History ondansetron 4 mg disintegrating 4 mg PO Q6H PRN nausea/emesis 04/12/25 06/15/25 Unknown History tablet bumetanide 1 mg tablet 1 mg PO DAILY #30 tabs 04/14/25 06/15/25 06/15/25 Rx hydralazine 100 mg tablet 100 mg PO BID #60 tabs 04/14/25 06/15/25 06/15/25 Rx insulin lispro 100 unit/mL See Rx Instructions .Route 04/14/25 06/15/25 06/15/25 Rx subcutaneous pen (Humalog KwikPen .COMPLEX #15 mL (U-100) Insulin) albuterol sulfate 90 mcg/actuation 2 puff inhalation Q6H PRN 06/15/25 06/15/25 Unknown History aerosol inhaler (Ventolin HFA) Shortness Of Breath clonidine HCl 0.2 mg tablet 0.2 mg PO TID 06/15/25 06/15/25 06/15/25 History doxazosin 4 mg tablet 4 mg PO BEDTIME 06/15/25 06/15/25 06/14/25 History insulin glargine 100 unit/mL (3 25 unit SUBCUT BID 06/15/25 06/15/25 06/15/25 History mL) subcutaneous pen (Lantus Solostar U-100 Insulin) insulin glargine-aglr 100 unit/mL 25 unit SUBCUT BID 06/15/25 06/15/25 Unknown History (3 mL) subcutaneous pen (Rezvoglar KwikPen) isosorbide mononitrate 30 mg 30 mg PO DAILY 06/15/25 06/15/25 06/15/25 History tablet,extended release 24 hr naloxone 4 mg/actuation nasal spray See Rx Instructions .Route .COMPLEX 06/15/25 06/15/25 Unknown History oxycodone 5 mg tablet 5 mg PO Q8H PRN Pain 06/15/25 06/15/25 Unknown History sevelamer carbonate 800 mg tablet 800 mg PO TID 06/15/25 06/15/25 06/15/25 History spironolactone 25 mg tablet 25 mg PO DAILY 06/15/25 06/15/25 06/15/25 History Allergies Allergy/AdvReac Type Severity Reaction Status Date / Time bee venom protein (honey bee) Allergy Unknown Verified 06/15/25 10:06 lisinopril Allergy Unknown Verified 06/15/25 10:06 Current Medications Generic Name Dose Route Start Last Admin Trade Name Freq PRN Reason Stop Dose Admin Amitriptyline HCl 50 mg 06/15/25 21:00 06/16/25 21:24 Amitriptyline 25 Mg Tablet PO 50 mg BEDTIME [facility] Administration Aripiprazole 5 mg 06/16/25 09:00 06/17/25 08:31 Aripiprazole 10 Mg Tablet PO 5 mg DAILY [facility] Administration Aspirin 81 mg 06/16/25 09:00 06/17/25 08:30 Aspirin 81 Mg Ec Tablet PO 81 mg DAILY [facility] Administration Atorvastatin Calcium 80 mg 06/15/25 21:00 06/16/25 21:24 Atorvastatin 40 Mg Tablet PO 80 mg BEDTIME [facility] Administration Bupropion HCl 150 mg 06/16/25 09:00 06/17/25 08:30 Bupropion Xl (24 Hr) 150 Mg Tablet PO 150 mg DAILY [facility] Administration Carvedilol 25 mg 06/15/25 17:05 06/17/25 08:31 Carvedilol 25 Mg Tablet PO 25 mg BID [facility] Administration Clonidine HCl 0.1 mg 06/16/25 09:00 06/17/25 08:30 Clonidine 0.1 Mg Tablet PO 0.1 mg TID [facility] Administration Diphenhydramine HCl 25 mg 06/16/25 14:09 06/16/25 18:08 Diphenhydramine 25 Mg Capsule PO 25 mg Q8H PRN Administration ITCHING Docusate Sodium 100 mg 06/15/25 18:16 06/17/25 08:30 Docusate Sodium 100 Mg Capsule PO 100 mg BID [facility] Administration Gabapentin 200 mg 06/15/25 15:00 06/17/25 08:31 Gabapentin 100 Mg Capsule PO 200 mg TID [facility] Administration Hydralazine HCl 100 mg 06/15/25 15:00 06/17/25 08:31 Hydralazine 25 Mg Tablet PO 100 mg TID [facility] Administration Nicardipine/Sodium Chloride 20 mg in 200 mls @ 0 mls/hr 06/15/25 14:45 06/16/25 07:00 Cardene IV Infused .Q0M [facility] Titration Protocol Per Protocol Insulin Glargine 20 unit 06/15/25 18:16 06/17/25 08:29 Insulin Glargine 100 Units/1 Ml SUBCUT 20 unit BID [facility] Administration Insulin Human Lispro 0 unit 06/15/25 18:16 06/17/25 08:31 Insulin Lispro 100 Unit/1 Ml SUBCUT Not Given WM&BEDTIME [facility] Protocol Isosorbide Mononitrate 30 mg 06/16/25 09:00 06/17/25 08:29 Isosorbide Mononitrate Er 30 Mg Tablet PO 30 mg DAILY [facility] Administration Morphine Sulfate 4 mg 06/15/25 23:15 06/17/25 08:32 Morphine 4 Mg/Ml Sdv 1 Ml IVP 4 mg Q4H PRN Administration SEVERE PAIN Oxycodone HCl 5 mg 06/15/25 18:16 06/16/25 10:31 Oxycodone 5 Mg Ir Tab/Cap PO 5 mg Q6H PRN Administration PAIN Pantoprazole Sodium 40 mg 06/16/25 10:18 06/16/25 23:09 Pantoprazole 40 Mg Sdv IVP 40 mg Q12H [facility] Administration Sevelamer Carbonate 800 mg 06/16/25 12:00 06/17/25 08:29 Sevelamer 800 Mg Tablet PO 800 mg TIDWM [facility] Administration Spironolactone 25 mg 06/16/25 09:00 06/17/25 08:30 Spironolactone 25 Mg Tablet PO 25 mg DAILY [facility] Administration Sucralfate 1 gm 06/16/25 11:00 06/17/25 06:26 Sucralfate 1 Gm/10 Ml Oral Liq Udc PO 1 gm AC&BEDTIME [facility] Administration Additional Medication Information Current Medications Acetaminophen (Acetaminophen 325 Mg Tablet) 650 mg PO Q6H PRN PRN Reason: Mild/Mod Pain Or Temp >/= 101 Amitriptyline HCl (Amitriptyline 25 Mg Tablet) 50 mg PO BEDTIME [facility] Last Admin: 06/15/25 22:33 Dose: 50 mg Amlodipine Besylate (Amlodipine 10 Mg Tablet) 10 mg PO QAM [facility] Last Admin: 06/16/25 05:56 Dose: 10 mg Aripiprazole (Aripiprazole 10 Mg Tablet) 5 mg PO DAILY [facility] Aspirin (Aspirin 81 Mg Ec Tablet) 81 mg PO DAILY [facility] Atorvastatin Calcium (Atorvastatin 40 Mg Tablet) 80 mg PO BEDTIME [facility] Last Admin: 06/15/25 22:36 Dose: 80 mg Bupropion HCl (Bupropion Xl (24 Hr) 150 Mg Tablet) 150 mg PO DAILY [facility] Carvedilol (Carvedilol 25 Mg Tablet) 25 mg PO BID [facility] Last Admin: 06/15/25 18:23 Dose: 25 mg Clonidine HCl (Clonidine 0.1 Mg Tablet) 0.2 mg PO TID [facility] Last Admin: 06/15/25 22:35 Dose: 0.2 mg Diphenhydramine HCl (Diphenhydramine 25 Mg Capsule) 25 mg PO Q6H PRN PRN Reason: ITCHING Last Admin: 06/16/25 04:40 Dose: 25 mg Docusate Sodium (Docusate Sodium 100 Mg Capsule) 100 mg PO BID [facility] Last Admin: 06/15/25 19:00 Dose: 100 mg Doxazosin Mesylate (Doxazosin 4 Mg Tablet) 4 mg PO BEDTIME [facility] Last Admin: 06/15/25 22:32 Dose: 4 mg Gabapentin (Gabapentin 100 Mg Capsule) 200 mg PO TID [facility] Last Admin: 06/15/25 22:34 Dose: 200 mg Glucagon (Glucagon 1 Mg/Ml Kit 1 Ml) 1 mg IM ONCE PRN; Protocol PRN Reason: Adult Acute Hypoglycemia Nursing Prot. Heparin Sodium (Porcine) (Heparin 5,000 Unit/Ml Inj 1 Ml) 5,000 unit SUBCUT Q12H [facility] Last Admin: 06/16/25 05:56 Dose: 5,000 unit Hydralazine HCl (Hydralazine 25 Mg Tablet) 100 mg PO TID [facility] Last Admin: 06/15/25 22:32 Dose: 100 mg Sodium Chloride (Sodium Chloride 0.9%) 1,000 mls @ 0 mls/hr IV .Q0M PRN PRN Reason: hypotension or symptomatic Albumin Human (Albumin) 12.5 gm in 50 mls @ 60 mls/hr IV PRN PRN PRN Reason: Hypotension and/or symptomatic Nicardipine/Sodium Chloride (Cardene) 20 mg in 200 mls @ 0 mls/hr IV .Q0M [facility]; Protocol Last Titration: 06/16/25 01:17 Dose: 0 mg/hr, 0 mls/hr Dextrose (D5w) 500 mls @ 0 mls/hr IV ONCE PRN; Protocol PRN Reason: Adult Acute Hypoglycemia Prot Dextrose (D10w) 125 mls @ 750 mls/hr IV PRN PRN; Protocol PRN Reason: Adult Acute Hypoglycemia Nursing Protocol Dextrose (D10w) 250 mls @ 1,000 mls/hr IV PRN PRN; Protocol PRN Reason: Adult Acute Hypoglycemia Nursing Protocol Insulin Glargine (Insulin Glargine 100 Units/1 Ml) 20 unit SUBCUT BID [facility] Last Admin: 06/15/25 19:41 Dose: 20 unit Insulin Human Lispro (Insulin Lispro 100 Unit/1 Ml) 0 unit SUBCUT WM&BEDTIME [facility]; Protocol Last Admin: 06/15/25 22:36 Dose: 2 unit Isosorbide Mononitrate (Isosorbide Mononitrate Er 30 Mg Tablet) 30 mg PO DAILY [facility] Lactulose (Lactulose Oral Liq 20 Gm/30 Ml Udc) 10 gm PO DAILY PRN; Protocol PRN Reason: Constipation (see protocol) Magnesium Hydroxide (Magnesium Hydroxide 30 Ml Udc) 30 ml PO DAILY PRN; Protocol PRN Reason: Constipation (see protocol) Morphine Sulfate (Morphine 4 Mg/Ml Sdv 1 Ml) 4 mg IVP Q4H PRN PRN Reason: SEVERE PAIN Last Admin: 06/16/25 04:40 Dose: 4 mg Nitroglycerin (Nitroglycerin 1 Gm/Inch Oint Pkt) 1 inch TOPICAL Q6H [facility] Last Admin: 06/16/25 04:04 Dose: Not Given Ondansetron HCl (Ondansetron 2 Mg/Ml Sdv 2 Ml) 4 mg IVP Q6H PRN PRN Reason: vomiting, or N/V if npo Oxycodone HCl (Oxycodone 5 Mg Ir Tab/Cap) 5 mg PO Q6H PRN PRN Reason: PAIN Last Admin: 06/16/25 04:01 Dose: 5 mg Pantoprazole Sodium (Pantoprazole 40 Mg Sdv) 40 mg IVP Q24H [facility] Last Admin: 06/15/25 19:00 Dose: 40 mg Sevelamer Carbonate (Sevelamer 800 Mg Tablet) 800 mg PO TID [facility] Last Admin: 06/15/25 22:33 Dose: 800 mg Spironolactone (Spironolactone 25 Mg Tablet) 25 mg PO DAILY [facility] PFSH Anesthesia Medical History (Updated 06/16/25 @ 14:22 by Humphrey Fernandez MD) End stage renal disease on dialysis due to type 1 diabetes mellitus Chronic left-sided low back pain with left-sided sciatica Type 1 diabetes End stage renal disease on dialysis Opiate dependence Other stimulant abuse, uncomplicated Waking at night short of breath Snoring Hypersomnia Insomnia Noncompliance w/medication treatment due to intermit use of medication Schizophrenia Methamphetamine abuse Uncontrolled hypertension Family History Other CAD (coronary artery disease) Hypertension Stroke Social History Smoking and tobacco/nicotine status: current every day tobacco/nicotine user Alcohol intake: former Substance/Drug Use: former Date of last use: Amphetamines more than 62 days ago Caregiver/support person: Yes Lives independently: Yes Household members: other Current occupation: [employer] Data Anesthesia 06/17/25 05:03 06/17/25 05:03 Short CBC 06/15/25 06/16/25 06/16/25 Range/Units 10:18 03:30 06:23 WBC 8.56 Cancelled 6.57 (3.29-11.43) 10^3/uL Hgb 10.40 L Cancelled 7.10 L D (11.27-16.99) g/dL Hct 30.5 L Cancelled 20.9 L D (37-53) % MCV 92.1 Cancelled 93.3 (82-101) fl Plt Count 179 Cancelled 160 (157-399) 10^3/cmm Neut % (Auto) 71.7 Cancelled 69.7 % Neut # (Auto) 6.13 Cancelled 4.58 (1.8-7.7) 10^3/uL 06/16/25 06/17/25 Range/Units 10:32 05:03 WBC 2.50 L 5.63 (3.29-11.43) 10^3/uL Hgb 6.80 L 8.00 L (11.27-16.99) g/dL Hct 20.4 L* 23.9 L (37-53) % MCV 94.4 93.0 (82-101) fl Plt Count 172 204 (157-399) 10^3/cmm Neut % (Auto) 44.4 63.2 % Neut # (Auto) 1.11 L 3.56 (1.8-7.7) 10^3/uL BMP 06/15/25 06/16/25 06/17/25 10:18 03:30 05:03 Sodium 132 L 135 L 137 Potassium 5.3 H 4.6 5.0 Chloride 94 L 98 101 Carbon Dioxide 20 L 24 25 BUN 59 H 36 H 29 H Creatinine 7.2 H* 5.5 H 5.1 H Glucose 194 H 254 H 113 Calcium 8.9 7.9 L 8.1 L Cardiac Enzymes 06/15/25 06/15/25 06/15/25 Range/Units 10:18 12:41 17:57 Troponin T 5th Gen ng/L (0-15) ng/L Troponin T Baseline 373 H* (0-15) ng/L Troponin T 120 Minute 323.6 H (0-15) ng/L Delta Troponin T -49.4 L (0-10) ABS# Troponin T Hi Sens 6Hr 308.7 H (0-15) ng/L Troponin T Hi Sens 6Hr Delta -64.3 L (0-12) ng/L NT-Pro-B Natriuret Pep 91704 H (0-125) pg/mL 06/16/25 Range/Units 10:32 Troponin T 5th Gen ng/L 370 H* (0-15) ng/L Troponin T Baseline (0-15) ng/L Troponin T 120 Minute (0-15) ng/L Delta Troponin T (0-10) ABS# Troponin T Hi Sens 6Hr (0-15) ng/L Troponin T Hi Sens 6Hr Delta (0-12) ng/L NT-Pro-B Natriuret Pep (0-125) pg/mL Liver Function 06/15/25 06/16/25 06/17/25 Range/Units 10:18 03:30 05:03 Total Bilirubin 0.7 0.4 0.7 (0.15-1.2) mg/dL AST 19 15 13 (0-40) U/L ALT 17 13 13 (0-41) U/L Alkaline Phosphatase 108 82 88 (40-130) U/L Albumin 3.7 2.7 L 2.9 L (3.5-5.2) g/dL Urine 06/16/25 Range/Units 13:55 Urine Color Yellow (Yellow) Urine Appearance Clear (CLEAR) Urine pH 7.5 (5-7) Ur Specific Rover 1.027 (1.005-1.030) Urine Protein 4+ A (Negative) Urine Glucose (UA) 2+ H (Normal) Urine Ketones Negative (Negative) Urine Nitrate Negative (Negative) Urine Bilirubin Negative (Negative) Ur Leukocyte Esterase Negative (Negative) Urine RBC 10-15 H (0-2) /hpf Urine WBC 25-40 H (0-5) /hpf Blood Bank 06/16/25 15:12 Blood Type O Positive Rho(D) Type Rh positive Antibody Screen Negative COVID Results 06/16/25 15:15 Coronavirus 229E (PCR) Not detected SARS-CoV-2 (PCR) Not detected Coags 06/15/25 06/16/25 10:18 15:12 PT 13.90 INR 1.00 APTT 37.1 H Fibrinogen 666 H D-Dimer 2.43 H 1.89 H Microbiology 06/16/25 13:55 Urine Culture - Preliminary Urine,Clean Catch 06/15/25 16:00 Blood Culture - Preliminary Blood NEGATIVE TO DATE 06/15/25 15:46 Blood Culture - Preliminary Blood NEGATIVE TO DATE Cardiac Studies: Echocardiogram 06/15/25
--- NOTE | 2025-06-17 10:01 | P.PN_ITS ---
Subjective 2 Subjective: still weak, nausea, chest pressure improving Medications: Reviewed: Yes Medication Review Details: Current Medications Acetaminophen (Acetaminophen 325 Mg Tablet) 650 mg PO Q6H PRN PRN Reason: Mild/Mod Pain Or Temp >/= 101 Amitriptyline HCl (Amitriptyline 25 Mg Tablet) 50 mg PO BEDTIME [facility] Last Admin: 06/16/25 21:24 Dose: 50 mg Amlodipine Besylate (Amlodipine 10 Mg Tablet) 5 mg PO QAM [facility] Aripiprazole (Aripiprazole 10 Mg Tablet) 5 mg PO DAILY [facility] Last Admin: 06/17/25 08:31 Dose: 5 mg Aspirin (Aspirin 81 Mg Ec Tablet) 81 mg PO DAILY [facility] Last Admin: 06/17/25 08:30 Dose: 81 mg Atorvastatin Calcium (Atorvastatin 40 Mg Tablet) 80 mg PO BEDTIME [facility] Last Admin: 06/16/25 21:24 Dose: 80 mg Bupropion HCl (Bupropion Xl (24 Hr) 150 Mg Tablet) 150 mg PO DAILY [facility] Last Admin: 06/17/25 08:30 Dose: 150 mg Carvedilol (Carvedilol 25 Mg Tablet) 25 mg PO BID [facility] Last Admin: 06/17/25 08:31 Dose: 25 mg Clonidine HCl (Clonidine 0.1 Mg Tablet) 0.1 mg PO TID [facility] Last Admin: 06/17/25 08:30 Dose: 0.1 mg Diphenhydramine HCl (Diphenhydramine 25 Mg Capsule) 25 mg PO Q8H PRN PRN Reason: ITCHING Last Admin: 06/16/25 18:08 Dose: 25 mg Diphenhydramine HCl (Diphenhydramine 50 Mg/Ml Sdv 1ml) 25 mg IVP DIALYSIS PRN PRN Reason: ITCHING Docusate Sodium (Docusate Sodium 100 Mg Capsule) 100 mg PO BID [facility] Last Admin: 06/17/25 08:30 Dose: 100 mg Gabapentin (Gabapentin 100 Mg Capsule) 200 mg PO TID [facility] Last Admin: 06/17/25 08:31 Dose: 200 mg Glucagon (Glucagon 1 Mg/Ml Kit 1 Ml) 1 mg IM ONCE PRN; Protocol PRN Reason: Adult Acute Hypoglycemia Nursing Prot. Hydralazine HCl (Hydralazine 25 Mg Tablet) 100 mg PO TID [facility] Last Admin: 06/17/25 08:31 Dose: 100 mg Sodium Chloride (Sodium Chloride 0.9%) 1,000 mls @ 0 mls/hr IV .Q0M PRN PRN Reason: hypotension or symptomatic Albumin Human (Albumin) 12.5 gm in 50 mls @ 60 mls/hr IV PRN PRN PRN Reason: Hypotension and/or symptomatic Nicardipine/Sodium Chloride (Cardene) 20 mg in 200 mls @ 0 mls/hr IV .Q0M [facility]; Protocol Last Titration: 06/16/25 07:00 Dose: Infused Dextrose (D5w) 500 mls @ 0 mls/hr IV ONCE PRN; Protocol PRN Reason: Adult Acute Hypoglycemia Prot Dextrose (D10w) 125 mls @ 750 mls/hr IV PRN PRN; Protocol PRN Reason: Adult Acute Hypoglycemia Nursing Protocol Dextrose (D10w) 250 mls @ 1,000 mls/hr IV PRN PRN; Protocol PRN Reason: Adult Acute Hypoglycemia Nursing Protocol Insulin Glargine (Insulin Glargine 100 Units/1 Ml) 20 unit SUBCUT BID [facility] Last Admin: 06/17/25 08:29 Dose: 20 unit Insulin Human Lispro (Insulin Lispro 100 Unit/1 Ml) 0 unit SUBCUT WM&BEDTIME [facility]; Protocol Last Admin: 06/17/25 08:31 Dose: Not Given Isosorbide Mononitrate (Isosorbide Mononitrate Er 30 Mg Tablet) 30 mg PO DAILY [facility] Last Admin: 06/17/25 08:29 Dose: 30 mg Lactulose (Lactulose Oral Liq 20 Gm/30 Ml Udc) 10 gm PO DAILY PRN; Protocol PRN Reason: Constipation (see protocol) Magnesium Hydroxide (Magnesium Hydroxide 30 Ml Udc) 30 ml PO DAILY PRN; Protocol PRN Reason: Constipation (see protocol) Morphine Sulfate (Morphine 4 Mg/Ml Sdv 1 Ml) 4 mg IVP Q4H PRN PRN Reason: SEVERE PAIN Last Admin: 06/17/25 08:32 Dose: 4 mg Ondansetron HCl (Ondansetron 2 Mg/Ml Sdv 2 Ml) 4 mg IVP Q6H PRN PRN Reason: vomiting, or N/V if npo Oxycodone HCl (Oxycodone 5 Mg Ir Tab/Cap) 5 mg PO Q6H PRN PRN Reason: PAIN Last Admin: 06/16/25 10:31 Dose: 5 mg Pantoprazole Sodium (Pantoprazole 40 Mg Sdv) 40 mg IVP Q12H [facility] Last Admin: 06/16/25 23:09 Dose: 40 mg Sevelamer Carbonate (Sevelamer 800 Mg Tablet) 800 mg PO TIDWM [facility] Last Admin: 06/17/25 08:29 Dose: 800 mg Sodium Chloride (Sodium Chloride 0.9% 100 Ml Bag) 50 ml IV PRN PRN PRN Reason: Blood transfusion prime and flush Stop: 06/17/25 14:14 Spironolactone (Spironolactone 25 Mg Tablet) 25 mg PO DAILY [facility] Last Admin: 06/17/25 08:30 Dose: 25 mg Sucralfate (Sucralfate 1 Gm/10 Ml Oral Liq Udc) 1 gm PO AC&BEDTIME [facility] Last Admin: 06/17/25 06:26 Dose: 1 gm Vitals/I&O/Wt Last Vital Signs Temp 97.5 F L 06/16/25 23:05 Pulse 86 06/17/25 08:24 Resp 18 06/17/25 08:32 BP 130/68 06/17/25 08:30 Pulse Ox 98 06/17/25 08:24 O2 Del Method Room Air 06/17/25 08:24 O2 Flow Rate 2 06/16/25 11:00 06/16/25 06/17/25 06/17/25 22:59 06:59 14:59 Intake Total 680 / 1790 200 / 1990 Balance 680 / -1320 200 / -1120 Weight last 48 hrs Weight 101.968 kg Weight 99.7 kg Weight 102.4 kg Weight 104.326 kg Weight 112.037 kg Physical Exam 2 Narrative: Vital signs noted. Patient sitting up NARD in bed. HEENT normocephalic atraumatic. Neck is supple. Lungs have dull right base left side clear per nurse. Heart regular, +FELICITA. Abdomen is soft positive bowel sounds. Extremities no edema. Positive AV fistula. neuro a,a, o x 3, from x4 Data 06/17/25 05:03 06/17/25 05:03 Micro: Microbiology 06/16/25 13:55 Urine Culture - Preliminary Urine,Clean Catch 06/15/25 16:00 Blood Culture - Preliminary Blood NEGATIVE TO DATE 06/15/25 15:46 Blood Culture - Preliminary Blood NEGATIVE TO DATE A&P Assessment and plan 1. End stage renal disease on dialysis due to type 1 diabetes mellitus: 34-year-old man 1. Diabetic control as per hospitalist. 2. Hypertensive urgency improved status post dialysis. We try to wean him off of clonidine as I am concerned he gets rebound hypertension when he misses doses. we continue to lower meds 3. ESRD - he is above EDW. He has a moderate-sized pericardial effusion on CT scan however on echo with small to moderate pericardial effusion. It is unlikely to be a uremic pericarditis as his BUN has not been very elevated. however, will attempt extra dialysis while he is in the hospital 4. anemia- retic counbt 2.3%, iron sat 17%. normal folate and b12 levels 5. Echo reviewed grade 3-4 diastolic dysfunction, Left Ventricle Moderate concentric left ventricular hypertrophy. LV ejection fraction of 50 to 55%.. Mild hypokinesia of the inferior wall.Grade III/IV diastolic dysfunction (restrictive filling pattern), severely elevated filling pressures. And small to moderate pericardial effusion. Cardiology appreciated BNP [id number]- remove fluids w/ dialysis- lower EDW 6. TSH 5.4 The patient was seen and examined using A/V equipment the patient consented to telehealth and to hemodialysis. Plan: See above PDMP PDMP Reviewed: Not Reviewed Attestations 2 Medical Necessity Statement*: htn, volume overload, ESRD, elevated BNP Time Spent in Patient Care: 16 - 35 minutes (>than 50% of time sp ent in counselling and/or direct pt care on unit) . Coding Level of Care Code Acute Code for Chg Fwd Diagnoses End stage renal disease on dialysis due to type 1 diabetes mellitus E10.22; N18.6; Z99.2
--- NOTE | 2025-06-17 10:45 | ANE.PACU2 ---
Inpatient post-anesthesia follow up: Airway intact: Yes Vital signs: Temperature 98.4 F Pulse Rate 82 Respiratory Rate 16 Blood Pressure 138/82 Pulse Oximetry 100 Oxygen Delivery Me thod [ Room Air Current Rate & Del [place]] Oxygen Delivery Me thod Room Air Oxygen Flow Rate 2 Fraction of Inspir ed Oxygen Hydration adequate: Yes Nausea and vomiting: No Pain level: 1 Mental status: Baseline
[2025-06-17] MEDS: pantoprazole 40 mg SDV IVP ×2 (11:11→21:44)
[2025-06-17 11:32] LABS: Calcium 8.0 mg/dL (8.5-10.5)
--- NOTE | 2025-06-17 14:01 | P.PN_ITS ---
Subjective 2 Subjective: Acute vents overnight. Patient has remained hemodynamically stable and afebrile. Blood pressure is better controlled. States still having some chest heaviness but better than yesterday. Denies any melena, nausea or vomiting. Vitals/I&O/Wt Last Vital Signs Temp 98.4 F 06/17/25 07:00 Pulse 81 06/17/25 13:00 Resp 20 H 06/17/25 13:26 BP 186/96 06/17/25 11:00 Pulse Ox 99 06/17/25 12:00 O2 Del Method Room Air 06/17/25 08:24 O2 Flow Rate 2 06/16/25 11:00 06/16/25 06/17/25 06/17/25 22:59 06:59 14:59 Intake Total 680 / 1790 200 / 1990 240 / 240 Balance 680 / -1320 200 / -1120 240 / 240 Weight last 48 hrs Weight 101.968 kg Weight 99.7 kg Weight 102.4 kg Weight 104.326 kg Physical Exam 2 Narrative: General: No acute distress, AO x3 HEENT: PERRLA, pupils bilaterally equal and reactive Chest: Normal vesicular breath sounds, no added sounds, equal good air entry bilaterally CVS: S1-S2 regular, no murmurs, no tachycardia, no gallops, no rubs Abdomen: Soft, nontender, no organomegaly, bowel sounds present Neuro: No focal deficits, no facial deformity, AO x3, power 5/5 in all limbs Data 06/17/25 05:03 06/17/25 05:03 Micro: Microbiology 06/16/25 13:55 Urine Culture - Preliminary Urine,Clean Catch 06/15/25 16:00 Blood Culture - Preliminary Blood NEGATIVE TO DATE 06/15/25 15:46 Blood Culture - Preliminary Blood NEGATIVE TO DATE A&P Assessment and plan 1. Hypertensive emergency: Goal blood pressure less than 160 systolic. Patient takes multiple antihypertensive at home including hydralazine 100 mg 3 times daily, 30 mg Imdur, clonidine 0.2 mg patch, 10 mg amlodipine, 25 mg twice daily Coreg. Continue with hydralazine 100 mg 3 times a day, Imdur, clonidine 0.1 3 times daily, amlodipine 10 mg daily, Coreg 25 mg twice daily. Cardene drip for now withheld. Continue to monitor blood pressure and will start Cardene drip if needed. 2. Chest pain: With elevated troponin. Delta troponin negative. Continues to complain of chest pain. Repeat troponin today morning. Hold off on adding heparin drip due to acute anemia. Will consult cardiology further recommendations. Patient will most likely need further ACS workup once anemia is worked up/ruled out. Appreciate echocardiogram. Appreciate A1c, lipid panel. 3. Acute on chronic systolic congestive heart failure: Repeat echocardiogram shows EF of 50 to 55%, mild hypokinesia of inferior wall, mildly increased LA size, mild MR with PASP of 41 mmHg. Continue dialysis as needed. Oxygen supplementation keeping saturation over 90%. Strict input output charting. 4. Anemia: Baseline hemoglobin around 8.4-9.6. Hemoglobin down to 7.1 today. Patient denies any melena. Not sure of source of anemia. Does have mild leukopenia. Platelet count stable. LFTs normal. Bilirubin normal. Repeat hemoglobin to confirm actual anemia. If hemoglobin persistently low will transfuse monitor PRBC with target of hemoglobin more than 8. Check reticulocyte count, haptoglobin, DIC panel, LDH, stool for occult blood, CT abdomen pelvis with contrast to rule out bleed. Did have recent bacteremia. Requested documents from outpatient/outside hospital. Cannot rule out myelosuppression in setting of bacteremia. GI bleed less likely. Check stool for occult blood. Protonix twice daily, Carafate ACHS. 5. Type 1 diabetes: A1c of 6.7. Continue with Lantus 20 units twice daily, insulin sliding scale. 6. Breath shortness: Due to congestive heart failure and hypertensive emergency. 7. End stage renal disease on dialysis due to type 1 diabetes mellitus: Nephrology consulted. Appreciate recommendations. Continue dialysis Saturday, , Saturday. 8. Elevated troponin: Plan: Possible recent bacteremia: Will request documents from outpatient nephrology dialysis center and outside hospital. Check blood culture. Urine drug screen. Hold off on antibiotics for now. Full code Renal diabetic diet SCD for DVT prophylax Protonix for PUD prophylaxis Plan for the day: Goal blood pressure less than 140/90 mmHg with mean over 65. Blood pressures currently at goal. Continue with current dose of amlodipine, Coreg, clonidine, hydralazine, Imdur. Uptitrate as a goal blood pressure. Post mitral blood transfusion. Hemoglobin 8 at goal today. Continue Protonix twice daily, Carafate ACHS. Appreciate haptoglobin, LDH, reticulocyte count. Appreciate CT abdomen/pelvis. Cannot rule out upper GI bleed though unlikely. Patient continues to have chest heaviness. Troponin elevated but delta negative on admission. Repeat troponin more than 350 yesterday. Given low EF of 50% with regional wall motion normality cannot rule out ACS. Patient most likely will need further ACS workup with possible cardiac angiogram. Prior to that patient would benefit to rule out from GI bleed. Will consult surgery for possible endoscopy. Keep n.p.o. for now. If no concern for GI bleed will confirm with cardiology regarding further workup for ACS. Continue with aspirin, statin for now. Appreciate A1c, lipid panel. Dialysis as per nephrology team. Continue other chronic medications. Blood cultures so far negative. Continue with home CPAP. PDMP PDMP Reviewed: Not Reviewed Attestations 2 Medical Necessity Statement*: Requires further hospitalization for management of chest pain in setting of anemia requiring blood transfusion in a patient with acute on chronic systolic heart failure, hypertensive emergency in a patient with history of type 1 diabetes mellitus, end-stage renal disease while anemia and chest pain is further worked up Diagnoses Hypertensive emergency I16.1 Chest pain R07.9 Acute on chronic systolic congestive heart failure I50.23 Heart failure chronicity: acute on chronic Heart failure type: systolic Anemia D64.9 Type 1 diabetes E10.9 Breath shortness R06.02 End stage renal disease on dialysis due to type 1 diabetes mellitus E10.22; N18.6; Z99.2 Elevated troponin R79.89
[2025-06-17 15:33] LABS: Hematocrit 24.6 % (37-53); Hemoglobin 8.20 g/dL (11.27-16.99)
[2025-06-17] MEDS: oxyCODONE 5 mg IR Tab/Cap PO (20:25)
[2025-06-18] VITALS (34 sets, daily range): BP systolic 121–181; BP diastolic 65–98; PULSE 73–87; RESP 8–33; TEMP 36.1–36.8; O2SAT 88–100
[2025-06-18] MEDS: HYDROmorphone 0.5 MG/0.5 ML INJ IVP (01:47)
[2025-06-18] MEDS: morphine 4 mg/mL SDV 1 mL IVP ×3 (03:16→13:57)
[2025-06-18 05:34] LABS: Hematocrit 23.5 % (37-53); Hemoglobin 7.80 g/dL (11.27-16.99); Mean Corpuscular HGB Conc 33.2 g/dL (30-55); Mean Corpuscular Hemoglobin 31.3 pg (27-33); Mean Corpuscular Volume 94.4 fl (82-101); Nucleated Red Blood Cells % 0 %; Platelet Count 225 10^3/cmm (157-399); Red Blood Count 2.49 10^6/uL (3.85-5.65); White Blood Count 6.06 10^3/uL (3.29-11.43)
[2025-06-18 06:05] LABS: Alanine Aminotransferase 11 U/L (0-41); Albumin Level 2.9 g/dL (3.5-5.2); Alkaline Phosphatase 86 U/L (40-130); Anion Gap 16.6 (5-19); Aspartate Amino Transferase 13 U/L (0-40); Blood Urea Nitrogen 29 mg/dL (6-20); Calcium 8.2 mg/dL (8.5-10.5); Carbon Dioxide 26 mmol/L (22-29); Chloride 101 mmol/L (98-107); Creatinine Clr Calc Pharmacy 23.6537; Globulin 2.9 g/dL (1.3-4.6); Glucose 101 mg/dL (65-115); Magnesium 2.0 mg/dL (1.7-2.3); Osmolality Calculated 294 mOsm/kg (285-295); Potassium 4.6 mmol/L (3.5-5.1); Sodium 139 mmol/L (136-145); Total Protein 5.8 g/dL (6.6-8.7)
--- NOTE | 2025-06-18 08:36 | XACV_ITS ---
Exam Room: [facility] Ht: 183 cm Wt: 99 kg BSA: 2.27 m2 Gender: Male : 1990 Any Known Allergies: Other Exam Priority: Routine Procedure(s): Procedure Description: Diagnostic procedure Procedure Description: Left Heart Catheterization Procedure Description: Left ventriculography Procedure Description: Coronary Angiography Diagnostic Cath Status: Elective Diagnostic Findings * INDICATION: NSTEMI/ LV dysfunction. * No significant disease noted in the Left Main, Left Anterior Descending, Right, or Circumflex coronary arteries. * Coronary angiography shows left dominance. Conclusions 1. No significant disease noted in the Left Main, Left Anterior Descending, Right, or Circumflex coronary arteries. 2. Mild left ventricular systolic dysfunction. Ejection fraction of 45%. Recommendations * Aggressive medical therapy for congestive heart failure. * Outpatient cardiology follow up in 2 weeks. Interventional RX Recommendation: medical therapy and/or counseling Diagnostic RX Recommendation: medical therapy and/or counseling Ventriculography Ejection Fraction: 45.0 % Pressures Phase:Rest AO : 132 / 78 ( 101 ) @ 10:19:00 AM 130 / 71 ( 97 ) @ 10:29:00 AM 128 / 70 ( 96 ) @ 10:29:00 AM LV : 129 / -9 / 20 @ 10:28:00 AM 126 / -10 / 22 @ 10:29:00 AM 128 / -8 / 22 @ 10:29:00 AM Valves Phase:DefaultPhase AV : 0.0 @ 9:40:47 AM AV Mean Gradient: 0.0 @ 9:40:47 AM Clinical Evaluation EBL: 5mL-10mL Procedural Details Procedure Consent Obtained. Admit Source: In Patient. Pre-Procedure Time Out. Identified patient by full name and date of as verbalized by the patient/guarantor. Does the consent match the physician's order: Yes. Accurate & Complete Informed Consent: Yes. Inpatient/Outpatient History & Physical on Chart: Yes. If H&P is completed, is and addenduem needed: No; If yes, is the addendum complete: N/A. Visualize and Verify Site with Patient/Guarantor: N/A. Relevant Radiology Images available: N/A. The risks, benefits, and alternatives of sedation and/or procedure were discussed by physician. The patient agrees to continue. Procedure started. [facility] Clinical Fraility Score: 4: Vulnerable. Civil Rights Investigator Indications: New Onset Angina. Chest Pain Symptom Assessment: Typical Angina Symptoms. Current diagnosis: Chest Pain. PERRLA. Strong, equal hand test borer bilaterally. Lungs clear x 5 lobes. IV Site on Arrival: 20 gauge in the left forearm. IV Fluids: 0.9% NaCl at KVO. 0 mL infused prior to hospital laboratory technician. Pre Procedural Pulses: bilateral dorsalis pedis was 3+. Pre Procedural Pulses: bilateral posterior tibial was 2+. Oxygen started at 2liters/min via nasal canula. bilateral groins was prepped with chloroprep then draped in the usual sterile fashion. Baseline sample Acquired. HR: 90 BPM. Physician notified. Physician arrived. Physician scrubbed in. Immediate Pre-Procedure Time Out. Correct Patient: Yes; Correct Procedure: Yes; Correct Site: Yes; Correct Patient Position: Yes; Correct Supplies: Yes; Dried Flammable Prep: Yes; Blood Products Available: Yes;. Lidocaine 1% infiltrated to the right groin. Arterial access obtained with micropuncture set. A 5 [place] JL4 catheter in over wire. Multiple views taken of left coronary artery. Catheter removed over the standard wire. A 5 [place] JR4 catheter in over wire. View taken of right coronary artery. Catheter removed over the standard wire. A 5 [place] Angled Pig catheter in over wire. Wire out. EDP Sample taken: LV 129/-10,20; HR: 81 BPM; SpO2: 92%. LV gram performed in GUAN @ 10 mL/second for a total of 30 mL. EDP Sample taken: LV 126/-10,22; HR: 82 BPM; SpO2: 92%. Pullback taken: LV 128/-9,22; AO 130/71(97); Mean: 0mmHg, Peak to Peak: 0mmHg, SEP: 12sec/min; HR: 83 BPM; SpO2: 93%. Catheter removed over the standard wire. A Right femoral angiogram was performed to determine safe placement of closure device. A Angio-Seal VIP ([facility] [facility]) was successful obtaining hemostatsis at the Right Femoral artery insertion site LOT # [id number] EXP 01-26-2026. Physician scrubbed out. Post Procedure: Pulses reassessed and unchanged. PERRLA. Strong, equal hand test borer bilaterally. No VTE prophylaxis required. Medication's Wasted: Lidocaine 1% = 10 mL. Medication's Wasted: Heparin = 1000 units. Medication's Wasted: Other = Benadryl 25 mg, Fentanyl 50mcg. Total IV fluids: 25 mL. Post-op diagnosis: Non-obstructive CAD. Complications: None. Estimated blood loss: 5mL-10mL. Responsiveness - Normal response to verbal stimuli; alert and oriented, PERRLA. Airway - Unaffected, no intervention required; spontaneous ventilation. Circulation: W/N/L, pulses unchanged. Nausea/Vomiting: No. Procedure completed. Patient transferred by bed to ICU. Vital chart was stopped. Access Site Site: Right Femoral artery Sheath Size: 6 Fr Hemostasis Method: Angio-Seal VIP ([facility] [facility]) Hemostasis Success: Successful Procedure Medications Start: 9:07 AM Stop: 9:07 AM Medication: Benadryl Amount: 25 mg Route: I.V. Start: 9:11 AM Stop: 9:11 AM Medication: Versed Amount: 1 mg Route: I.V. Start: 9:11 AM Stop: 9:11 AM Medication: Fentanyl Amount: 50 mcg Route: I.V. Start: 9:14 AM Stop: 9:14 AM Medication: Versed Amount: 1 mg Route: I.V. I, the attending physician, have reviewed and verified all procedure medications. Yes, all medications given per verbal order History/Risk Factors Hypertension: Yes Dyslipidemia: No Peripheral Arterial Disease (PAD): No Myocardial Infarction (AK): No Obesity: No Renal Disease: Yes Tobacco Use: Current/Recent(w/in 1 year) Dialysis: Current Prior Interventions PCI: No CABG: No Valve Surgery: No Report Signatures Finalized by Manish Crystal MD on 07/02/2025 02:05 PM
[2025-06-18] MEDS: insulin glargine 100 units/1 mL 20 UNIT SUBCUT (08:37)
[2025-06-18] MEDS: oxyCODONE 5 mg IR Tab/Cap PO (08:38)
[2025-06-18] MEDS: sucralfate 1 gm/10 mL Oral Liq UDC PO ×2 (08:46→10:38)
--- NOTE | 2025-06-18 08:55 | P.PN_ITS ---
Subjective 2 Subjective: Patient denies any bloody stools he states he is constipated. Still having chest pain. States he felt better with dialysis. Patient complains of itching. No nausea no vomiting no headaches no itching no cramps. He is not very active. No shortness of breath at rest. Patient to go to [facility] today. Medications: Reviewed: Yes Medication Review Details: Current Medications Acetaminophen (Acetaminophen 325 Mg Tablet) 650 mg PO Q6H PRN PRN Reason: Mild/Mod Pain Or Temp >/= 101 Amitriptyline HCl (Amitriptyline 25 Mg Tablet) 50 mg PO BEDTIME [facility] Last Admin: 06/17/25 20:25 Dose: 50 mg Amlodipine Besylate (Amlodipine 10 Mg Tablet) 5 mg PO QAM [facility] Last Admin: 06/18/25 05:09 Dose: 5 mg Aripiprazole (Aripiprazole 10 Mg Tablet) 5 mg PO DAILY [facility] Last Admin: 06/18/25 08:37 Dose: 5 mg Aspirin (Aspirin 81 Mg Ec Tablet) 81 mg PO DAILY [facility] Last Admin: 06/18/25 08:35 Dose: 81 mg Atorvastatin Calcium (Atorvastatin 40 Mg Tablet) 80 mg PO BEDTIME [facility] Last Admin: 06/17/25 20:25 Dose: 80 mg Bupropion HCl (Bupropion Xl (24 Hr) 150 Mg Tablet) 150 mg PO DAILY [facility] Last Admin: 06/18/25 08:38 Dose: 150 mg Carvedilol (Carvedilol 25 Mg Tablet) 25 mg PO BID [facility] Last Admin: 06/18/25 08:38 Dose: 25 mg Clonidine HCl (Clonidine 0.1 Mg Tablet) 0.1 mg PO BID [facility] Last Admin: 06/18/25 08:38 Dose: 0.1 mg Diphenhydramine HCl (Diphenhydramine 25 Mg Capsule) 25 mg PO Q8H PRN PRN Reason: ITCHING Last Admin: 06/18/25 03:21 Dose: 25 mg Diphenhydramine HCl (Diphenhydramine 50 Mg/Ml Sdv 1ml) 25 mg IVP DIALYSIS PRN PRN Reason: ITCHING Docusate Sodium (Docusate Sodium 100 Mg Capsule) 100 mg PO BID [facility] Last Admin: 06/18/25 08:38 Dose: 100 mg Gabapentin (Gabapentin 100 Mg Capsule) 200 mg PO TID [facility] Last Admin: 06/18/25 08:38 Dose: 200 mg Glucagon (Glucagon 1 Mg/Ml Kit 1 Ml) 1 mg IM ONCE PRN; Protocol PRN Reason: Adult Acute Hypoglycemia Nursing Prot. Hydralazine HCl (Hydralazine 25 Mg Tablet) 100 mg PO TID [facility] Last Admin: 06/18/25 08:36 Dose: 100 mg Sodium Chloride (Sodium Chloride 0.9%) 1,000 mls @ 0 mls/hr IV .Q0M PRN PRN Reason: hypotension or symptomatic Albumin Human (Albumin) 12.5 gm in 50 mls @ 60 mls/hr IV PRN PRN PRN Reason: Hypotension and/or symptomatic Nicardipine/Sodium Chloride (Cardene) 20 mg in 200 mls @ 0 mls/hr IV .Q0M LILI; Protocol Last Titration: 06/16/25 07:00 Dose: Infused Dextrose (D5w) 500 mls @ 0 mls/hr IV ONCE PRN; Protocol PRN Reason: Adult Acute Hypoglycemia Prot Dextrose (D10w) 125 mls @ 750 mls/hr IV PRN PRN; Protocol PRN Reason: Adult Acute Hypoglycemia Nursing Protocol Dextrose (D10w) 250 mls @ 1,000 mls/hr IV PRN PRN; Protocol PRN Reason: Adult Acute Hypoglycemia Nursing Protocol Sodium Chloride (Sodium Chloride 0.9%) 1,000 mls @ 50 mls/hr IV .Q20H ONE Stop: 06/19/25 01:59 Last Admin: 06/18/25 05:10 Dose: 50 mls/hr Insulin Glargine (Insulin Glargine 100 Units/1 Ml) 20 unit SUBCUT BID [facility] Last Admin: 06/18/25 08:37 Dose: 20 unit Insulin Human Lispro (Insulin Lispro 100 Unit/1 Ml) 0 unit SUBCUT WM&BEDTIME [facility]; Protocol Last Admin: 06/18/25 08:14 Dose: Not Given Isosorbide Mononitrate (Isosorbide Mononitrate Er 30 Mg Tablet) 30 mg PO DAILY [facility] Last Admin: 06/18/25 08:38 Dose: 30 mg Lactulose (Lactulose Oral Liq 20 Gm/30 Ml Udc) 10 gm PO DAILY PRN; Protocol PRN Reason: Constipation (see protocol) Magnesium Hydroxide (Magnesium Hydroxide 30 Ml Udc) 30 ml PO DAILY PRN; Protocol PRN Reason: Constipation (see protocol) Last Admin: 06/18/25 08:42 Dose: 30 ml Morphine Sulfate (Morphine 4 Mg/Ml Sdv 1 Ml) 4 mg IVP Q4H PRN PRN Reason: SEVERE PAIN Last Admin: 06/18/25 06:21 Dose: 4 mg Ondansetron HCl (Ondansetron 2 Mg/Ml Sdv 2 Ml) 4 mg IVP Q6H PRN PRN Reason: vomiting, or N/V if npo Oxycodone HCl (Oxycodone 5 Mg Ir Tab/Cap) 5 mg PO Q6H PRN PRN Reason: PAIN Last Admin: 06/18/25 08:38 Dose: 5 mg Pantoprazole Sodium (Pantoprazole 40 Mg Sdv) 40 mg IVP Q12H [facility] Last Admin: 06/17/25 21:44 Dose: 40 mg Sevelamer Carbonate (Sevelamer 800 Mg Tablet) 800 mg PO TIDWM [facility] Last Admin: 06/18/25 08:39 Dose: Not Given Spironolactone (Spironolactone 25 Mg Tablet) 25 mg PO DAILY [facility] Last Admin: 06/18/25 08:38 Dose: 25 mg Sucralfate (Sucralfate 1 Gm/10 Ml Oral Liq Udc) 1 gm PO AC&BEDTIME [facility] Last Admin: 06/18/25 08:46 Dose: 1 gm Vitals/I&O/Wt Last Vital Signs Temp 98.4 F 06/17/25 19:07 Pulse 84 06/18/25 05:45 Resp 10 L 06/18/25 08:38 BP 181/98 06/18/25 08:38 Pulse Ox 96 06/18/25 08:38 O2 Del Method Room Air 06/17/25 08:24 O2 Flow Rate 2 06/16/25 11:00 06/17/25 06/18/25 06/18/25 22:59 06:59 14:59 Intake Total 920 / 1160 Output Total 3500 / 3500 Balance -2580 / -2340 Weight last 48 hrs Weight 100.5 kg Weight 101.968 kg Weight 99.7 kg Physical Exam 2 Narrative: Vital signs noted. Patient sitting up NARD in bed. HEENT normocephalic atraumatic. Neck is supple. Lungs have good air movement bilaterally Heart regular, +FELICITA. Abdomen is soft positive bowel sounds. Extremities no edema. Positive right upper extremity AV fistula. neuro a,a, o x 3, from x4 Data 06/18/25 05:24 06/18/25 05:24 Micro: Microbiology 06/16/25 13:55 Urine Culture - Preliminary Urine,Clean Catch A&P Assessment and plan 1. End stage renal disease on dialysis due to type 1 diabetes mellitus: 34-year-old man 1. Diabetic control as per hospitalist. 2. Hypertension remains an issue. Will continue to remove fluids with dialysis. 3. ESRD - he is above EDW. He has a moderate-sized pericardial effusion on CT scan however on echo with small to moderate pericardial effusion. It is unlikely to be a uremic pericarditis as his BUN has not been very elevated. Patient continues on a Saturday schedule. If patient is found to be volume overloaded in the [facility] we can consider extra ultrafiltration today. 4. anemia- retic counbt 2.3%, iron sat 17%. normal folate and b12 levels Negative EGD yesterday 5. Echo reviewed grade 3-4 diastolic dysfunction, Left Ventricle Moderate concentric left ventricular hypertrophy. LV ejection fraction of 50 to 55%.. Mild hypokinesia of the inferior wall.Grade III/IV diastolic dysfunction (restrictive filling pattern), severely elevated filling pressures. And small to moderate pericardial effusion. Cardiology appreciated BNP 20721- remove fluids w/ dialysis- lower EDW 6. TSH 5.4 The patient was seen and examined using A/V equipment the patient consented to telehealth and to hemodialysis. Plan: See above PDMP PDMP Reviewed: Not Reviewed Attestations 2 Medical Necessity Statement*: ESRD hypertension question coronary artery disease, anemia Time Spent in Patient Care: 16 - 35 minutes (>than 50% of time sp ent in counselling and/or direct pt care on unit) . Coding Level of Care Code Acute Code for Chg Fwd Diagnoses End stage renal disease on dialysis due to type 1 diabetes mellitus E10.22; N18.6; Z99.2
--- NOTE | 2025-06-18 09:04 | PC.NURSE ---
Pt off unit to supervisor dental laboratory.
--- NOTE | 2025-06-18 09:13 | W.PM.OPSUD ---
Surgery/Procedure H&P Update DATE OF PROCEDURE: June 18, 2025 DATE H&P PERFORMED: 06/16/25 H&P UPDATE INFORMATION: I have reviewed H&P completed within last 30 days, I have examined patient prior to procedure and Changes to prior documentation as noted here CHANGES TO PREVIOUS DOCUMENTATION: EGD did not show active bleeding source. Plan for coronary angiogram. PREOP DIAGNOSIS: NSTEMI/ LV dysfunction PRIMARY INDICATION FOR PROCEDURE: NSTEMI/ LV dysfunction PLANNED PROCEDURE: Operation Date: 06/18/25 10:35 Proposed Procedures p Cardiac Catheterization(Not Applicable) - Manish Crystal M.D Possible percutaneous coronary intervention PATIENT REASSESSED PRIOR TO SEDATION, WITH NO CHANGE NOTED: Yes PHYSICAL EXAM: alert, oriented x 3, clear to auscultation bilaterally and regular rate & rhythm AIRWAY EVAL/ANESTHESIA PLAN: normal airway, ASA III, Local Anesthesia, Risks, benefits & alternatives of sedation and/or procedure discussed and Patient agrees to continue as planned ADDITIONAL INFORMATION: Moderate sedation
--- NOTE | 2025-06-18 09:41 | PM.PROC ---
Procedure Note: Date of procedure: 06/18/25 Pre-procedure diagnosis: LV dysfunction/ troponin elevation Post-procedure diagnosis: other (Patent coronary arteries) Procedure: No significant coronary artery disease. Medical therapy and aggressive blood pressure control Performing Provider: Manish Crystal Complications: None Condition: stable Disposition: floor Coding Level of Care Code Acute Code for Cami Fwpati
--- NOTE | 2025-06-18 09:45 | PC.NURSE ---
Pt back from clinical laboratory technologist. Right groin soft with no hematoma, bleeding or bruising noted.
--- NOTE | 2025-06-18 10:31 | P.DS_ITS ---
Discharge Providers Date of Admission: 06/15/25 14:10 Date of Discharge: June 18, 2025 Attending Provider at Admission: Humphrey Fernandez MD Attending Provider at Discharge: Humphrey Fernandez MD Consults: Telemetry nephrology Surgery: Dr. Flynn Cardiology: Dr. Crystal Primary Care Provider: Duke Alarcon Diagnoses at Discharge Discharge Diagnosis 1. End stage renal disease on dialysis due to type 1 diabetes mellitus: Reason for Visit Reason for Visit: sob, chest pain Hospital Course Hospital Course Hunter San is a 34 year old male with past medical history of type 1 diabetes mellitus, end-stage renal disease on hemodialysis, congestive heart failure with last known EF of 45%, recent possible bacteremia for which she was on IV vancomycin with last dose on 10 June presents to the ER today with difficulty in breathing, retrosternal chest pain radiating to back which woke him up today morning. Difficulty breathing is getting worse on exertion. In the ER he was found to be hypertensive with blood pressure of more than 200 systolic. He was started on esmolol drip and hospitalist was consulted for further recommendations and management. Patient was admitted to the hospital further evaluation and management of hypertensive emergency leading to shortness of breath due to congestive heart failure. His antihypertensives were adjusted. Nephrology was consulted and underwent emergent dialysis. During hospitalization his blood culture remained negative. He did have acute anemia for which further workup was done. Endoscopy was done which ruled out upper GI bleed. Patient did not have any episode of bleeding during hospitalization. CT abdomen pelvis and chest was negative for acute bleed. He did receive 2 unit of blood transfusion. Continue to have occasional chest heaviness and was found to have elevated troponins. Echocardiogram was done which showed an EF 50% with regional motion moderate abnormality. He underwent cardiac angiogram on 06/18 which showed normal coronaries. He underwent dialysis on 06/18. He is been discharged hemodynamically stable condition on adjusted antihypertensive. Physical Exam Narrative: General: No acute distress, AO x3 HEENT: PERRLA, pupils bilaterally equal and reactive Chest: Normal vesicular breath sounds, no added sounds, equal good air entry bi laterally CVS: S1-S2 regular, no murmurs, no tachycardia, no gallops, no rubs Abdomen: Soft, nontender, no organomegaly, bowel sounds present Neuro: No focal deficits, no facial deformity, AO x3, power 5/5 in all limbs Discharge Data Studies Completed and Pending Completed Studies During Hospitalization Category Date Time Status CT abdomen pelvis w con* [id number] Routine Cat Scan 06/16/25 14:13 Completed CTA chest [CT angio chest PE protcl 36110] Stat Cat Scan 06/15/25 10:54 Completed XR chest 1V portable [id number] Stat Exams 06/15/25 10:02 Completed CV. echo complete* [id number] Routine Ultrasound 06/15/25 14:48 Completed Pending at discharge Category Date Time Status RX SPECIALIST request for service Routine Exams 06/18/25 08:36 Ordered Basic Metabolic Panel AM LABS Lab 06/19/25 04:00 Ordered Blood Culture Stat Lab 06/15/25 16:00 Results Complete Blood Count w/Auto AM LABS Lab 06/19/25 04:00 Ordered Fibrinogen Degradation Product Routine Lab 06/16/25 16:01 Received Leukocyte Reduced RBC Stat Lab 06/16/25 15:12 Results Occult Blood Stool [Immunochemical Fecal OCB] Routine Lab 06/16/25 10:13 Uncollected Type and Screen Stat Lab 06/16/25 15:12 Results Urine Culture Routine Lab 06/16/25 13:55 Results Radiology Impressions Chest X-Ray 06/15/25 10:02 IMPRESSION: 1. New hazy opacifications in the RIGHT lung. Edema versus pneumonitis. 2. No dense consolidation or pneumonia. 3. Mild cardiomegaly. Size of the heart has slightly increased since the prior study. Small pericardial effusion is not excluded. Chest CTA 06/15/25 10:54 IMPRESSION: 1. No pulmonary embolism. 2. Limited opacification of the distal pulmonary arteries. Peripheral segmental emboli not excluded. 3. Cardiomegaly with a moderate-sized pericardial effusion. LEFT heart enlargement. 4. Scattered pulmonary groundglass opacifications, bilateral but greater on the RIGHT. Likely cardiogenic pulmonary edema. Pneumonitis may appear similar. 5. Extensive gynecomastia. 6. Small bilateral pleural effusions. 7. Soft tissue anasarca. Echocardiogram: CONCLUSIONS Moderate concentric left ventricular hypertrophy. LV ejection fraction of 50 to 55%.. Mild hypokinesia of the inferior wall. Mildly increased left atrial size. Mild mitral valve regurgitation. Trace tricuspid valve regurgitation . Estimated pulmonary artery peak systolic pressure 41 mm of Hg. This could be an underestimation because of the poor Doppler signal Compared to the study from 12/13/2024, there may not be a significant change Dr Kishore Mcconnell MD [facility] (Electronically Signed) Final Date: 15 June 2025 Abdomen/Pelvis CT 06/16/25 14:13 IMPRESSION: 1. Ill-defined layering hyperdensity within the stomach could represent ingested material. However, active bleeding is not entirely excluded. Assessment is limited on this single phase of contrast. Correlate with clinical findings and consider direct visualization if warranted. 2. Moderate pericardial effusion. This could be further assessed with echocardiogram. 3. Small left pleural effusion with left basilar consolidation worrisome for infection/aspiration. 4. Hepatosplenomegaly. 5. Hyperdense fluid within the urinary bladder could represent concentrated urine, though hematuria is also not excluded. Laboratory Results WBC 6.06 10^3/uL (3.29-11.43) 06/18/25 05:24 Corrected WBC Cancelled 06/16/25 03:30 RBC 2.49 10^6/uL (3.85-5.65) L 06/18/25 05:24 Hgb 7.80 g/dL (11.27-16.99) L 06/18/25 05:24 Hct 23.5 % (37-53) L 06/18/25 05:24 MCV 94.4 fl (82-101) 06/18/25 05:24 MCH 31.3 pg (27-33) 06/18/25 05:24 MCHC 33.2 g/dL (30-55) 06/18/25 05:24 RDW 14.4 % (12.1-15.1) 06/18/25 05:24 Plt Count 225 10^3/cmm (157-399) 06/18/25 05:24 MPV 9.6 fL (7.4-10.4) 06/18/25 05:24 Gran % Cancelled 06/16/25 03:30 Neut % (Auto) 64.4 % 06/18/25 05:24 Lymph % (Auto) 21.0 % 06/18/25 05:24 [place] % (Auto) 8.1 % 06/18/25 05:24 Eos % (Auto) 5.3 % 06/18/25 05:24 Baso % (Auto) 0.7 % 06/18/25 05:24 Reticulocyte % (Auto) 2.3 % (0.5-2.0) H 06/16/25 10:32 Neut # (Auto) 3.91 10^3/uL (1.8-7.7) 06/18/25 05:24 Lymph # (Auto) 1.3 10^3/uL (0.8-4.8) 06/18/25 05:24 [place] # (Auto) 0.5 10^3/uL (0.2-0.9) 06/18/25 05:24 Eos # (Auto) 0.3 10^3/uL (0.0-0.8) 06/18/25 05:24 Baso # (Auto) 0.0 10^3/uL (0.0-0.1) 06/18/25 05:24 Absolute Gran (auto) Cancelled 06/16/25 03:30 Nucleated RBC % (auto) 0 % 06/18/25 05:24 Nucleated RBCs # 0.0 /100WBC 06/18/25 05:24 Haptoglobin 79.0 mg/L (30-200) 06/16/25 10:32 PT 13.90 SECONDS (12.1-14.9) 06/16/25 15:12 INR 1.00 (0.8-1.2) 06/16/25 15:12 APTT 37.1 SECONDS (23.9-36.7) H 06/16/25 15:12 Fibrinogen 666 mg/dL (174-498) H 06/16/25 15:12 D-Dimer 1.89 ug/mLFEU (0-0.59) H 06/16/25 15:12 Sodium 139 mmol/L (136-145) 06/18/25 05:24 Potassium 4.6 mmol/L (3.5-5.1) 06/18/25 05:24 Chloride 101 mmol/L (98-107) 06/18/25 05:24 Carbon Dioxide 26 mmol/L (22-29) 06/18/25 05:24 Anion Gap 16.6 (5-19) 06/18/25 05:24 BUN 29 mg/dL (6-20) H 06/18/25 05:24 Creatinine 5.4 mg/dL (0.7-1.2) H 06/18/25 05:24 GFR Calculation 12.2 mL/min (90-130) L 06/18/25 05:24 Glucose 101 mg/dL (65-115) 06/18/25 05:24 POC Glucose 108 mg/dL (70-110) 06/18/25 07:17 Estimat Average Glucose 146 06/15/25 10:18 Hemoglobin A1c 6.7 % (4.0-6.0) H 06/15/25 10:18 Calculated Osmolality 294 mOsm/kg (285-295) 06/18/25 05:24 Lactic Acid 0.8 mmol/L (0.5-2.2) 06/15/25 15:46 Calcium 8.2 mg/dL (8.5-10.5) L 06/18/25 05:24 Phosphorus 4.0 mg/dL (2.5-4.5) 06/18/25 05:24 Magnesium 2.0 mg/dL (1.7-2.3) 06/18/25 05:24 Iron 33 ug/dL (59-158) L 06/15/25 12:41 TIBC 187 mcg/dl 06/15/25 12:41 % Saturation 17.6 % (20-50) L 06/15/25 12:41 Unsat Iron Binding 154 ug/dL (112-347) 06/15/25 12:41 Total Bilirubin 0.4 mg/dL (0.15-1.2) 06/18/25 05:24 AST 13 U/L (0-40) 06/18/25 05:24 ALT 11 U/L (0-41) 06/18/25 05:24 Alkaline Phosphatase 86 U/L (40-130) 06/18/25 05:24 Lactate Dehydrogenase 302 U/L (135-225) H 06/16/25 10:32 Troponin T 5th Gen ng/L 370 ng/L (0-15) H* 06/16/25 10:32 Troponin T Baseline 373 ng/L (0-15) H* 06/15/25 10:18 Troponin T 120 Minute 323.6 ng/L (0-15) H 06/15/25 12:41 Delta Troponin T -49.4 ABS# (0-10) L 06/15/25 12:41 Troponin T Hi Sens 6Hr 308.7 ng/L (0-15) H 06/15/25 17:57 Troponin T Hi Sens 6Hr Delta -64.3 ng/L (0-12) L 06/15/25 17:57 NT-Pro-B Natriuret Pep 65347 pg/mL (0-125) H 06/15/25 10:18 Total Protein 5.8 g/dL (6.6-8.7) L 06/18/25 05:24 Albumin 2.9 g/dL (3.5-5.2) L 06/18/25 05:24 Globulin 2.9 g/dL (1.3-4.6) 06/18/25 05:24 Triglycerides 154 mg/dL (0-150) H 06/16/25 03:30 Cholesterol 185 mg/dL (0-200) 06/16/25 03:30 LDL Cholesterol, Calc 122 mg/dL (50-129) 06/16/25 03:30 HDL Cholesterol 32 mg/dL (60-100) L 06/16/25 03:30 LDL/HDL Ratio 3.81 RATIO (0.00-3.22) H 06/16/25 03:30 Cholesterol/HDL Ratio 5.78 mg/dL (1.0-5.00) H 06/16/25 03:30 Lipase 26 U/L (13-60) 06/15/25 10:18 Vitamin B12 519 pg/mL (232-1245) 06/15/25 12:41 Folate 7.0 ng/mL (4.5-32.2) 06/16/25 03:30 Procalcitonin 0.69 ng/mL (0-0.5) H 06/16/25 03:30 TSH 5.41 uIU/mL (0.27-4.20) H 06/15/25 12:41 PTH Intact 122.8 pg/mL (15-65) H 06/17/25 10:42 Calcium (PTH Intact) 8.0 mg/dL (8.5-10.5) L 06/17/25 10:42 Urine Color Yellow (Yellow) 06/16/25 13:55 Urine Appearance Clear (CLEAR) 06/16/25 13:55 Urine pH 7.5 (5-7) 06/16/25 13:55 Ur Specific [place] 1.027 (1.005-1.030) 06/16/25 13:55 Urine Protein 4+ (Negative) A 06/16/25 13:55 Urine Glucose (UA) 2+ (Normal) H 06/16/25 13:55 Urine Ketones Negative (Negative) 06/16/25 13:55 Urine Blood 1+ (Negative) A 06/16/25 13:55 Urine Nitrate Negative (Negative) 06/16/25 13:55 Urine Bilirubin Negative (Negative) 06/16/25 13:55 Urine Urobilinogen 0.2 mg/dL (Negative) 06/16/25 13:55 Ur Leukocyte Esterase Negative (Negative) 06/16/25 13:55 Urine RBC 10-15 /hpf (0-2) H 06/16/25 13:55 Urine WBC 25-40 /hpf (0-5) H 06/16/25 13:55 Ur Squamous Epith Cells 0-5 /hpf (0-5) 06/16/25 13:55 Amorphous Sediment Not Reportable 06/16/25 13:55 Urine Bacteria None seen /hpf (NONE) 06/16/25 13:55 Hyaline Casts 21.92 /lpf 06/16/25 13:55 Urine Opiates Screen Positive ng/mL (Negative) H 06/16/25 13:55 Ur Barbiturates Screen Negative ng/mL (Negative) 06/16/25 13:55 Ur Phencyclidine Scrn Negative ng/mL (Negative) 06/16/25 13:55 Ur Amphetamines Screen Negative ng/mL (Negative) 06/16/25 13:55 U Benzodiazepines Scrn Negative ng/mL (Negative) 06/16/25 13:55 Urine Cocaine Screen Negative ng/mL (Negative) 06/16/25 13:55 U Marijuana (THC) Screen Negative ng/mL (Negative) 06/16/25 13:55 Adenovirus (PCR) Not detected (NOT DETECT) 06/16/25 15:15 C. pneumoniae DNA (PCR) Not detected (NOT DETECT) 06/16/25 15:15 Coronavirus 229E (PCR) Not detected (NOT DETECT) 06/16/25 15:15 Hep Bs Antigen Non-reactive (Nonreactive) 06/15/25 10:18 Hep Bs Antibody 57.4 (11.5-1000) 06/15/25 10:18 Hepatitis C Antibody Non-reactive (Nonreactive) 06/15/25 10:18 HIV 1&2 Ab & HIV 1 Ag Non-reactive (Non-Reactiv) 06/16/25 03:30 HIV 1&2 Antibody Non-reactive (Non-Reactiv) 06/16/25 03:30 Human Metapneumovir PCR Not detected (NOT DETECT) 06/16/25 15:15 Influenza A (H1) PCR Not detected (NOT DETECT) 06/16/25 15:15 Influ A (H1/09) PCR Not detected (NOT DETECT) 06/16/25 15:15 Influenza A (H3) PCR Not detected (NOT DETECT) 06/16/25 15:15 Influenza Type A (PCR) Not detected (NOT DETECT) 06/16/25 15:15 Influenza Type B (PCR) Not detected (NOT DETECT) 06/16/25 15:15 M. pneumoniae (PCR) Not detected (NOT DETECT) 06/16/25 15:15 Parainfluenza 1 (PCR) Not detected (NOT DETECT) 06/16/25 15:15 Parainfluenza 2 (PCR) Not detected (NOT DETECT) 06/16/25 15:15 Parainfluenza 3 (PCR) Not detected (NOT DETECT) 06/16/25 15:15 Parainfluenza 4 (PCR) Not detected (NOT DETECT) 06/16/25 15:15 RSV Type A (PCR) Not detected (NOT DETECT) 06/16/25 15:15 RSV Type B (PCR) Not detected (NOT DETECT) 06/16/25 15:15 Entero/Rhino (PCR) Not detected (NOT DETECT) 06/16/25 15:15 SARS-CoV-2 (PCR) Not detected (NOT DETECT) 06/16/25 15:15 Blood Type O Positive 06/16/25 15:12 Rho(D) Type Rh positive 06/16/25 15:12 Antibody Screen Negative 06/16/25 15:12 Crossmatch See Detail 06/16/25 15:12 Procedures Performed Cardiac angiogram: 06/18: Date of procedure: 06/18/25 Pre-procedure diagnosis: LV dysfunction/ troponin elevation Post-procedure diagnosis: other (Patent coronary arteries) Procedure: No significant coronary artery disease. Medical therapy and aggressive blood pressure control Performing Provider: Manish Crystal Complications: None Condition: stable Disposition: floor Vitals Last Vital Signs Temp 98.4 F 06/17/25 19:07 Pulse 84 06/18/25 09:59 Resp 10 L 06/18/25 08:38 BP 181/98 06/18/25 08:38 Pulse Ox 97 06/18/25 09:59 O2 Del Method Room Air 06/18/25 09:59 O2 Flow Rate 2 06/16/25 11:00 Discharge Plan Discharge Patient Disposition: Home Condition: Stable Prescriptions: New ferrous gluconate 324 mg (37.5 mg iron) tablet 324 mg PO BID Qty: 60 0RF Continued (DME) blood-glucose meter [True Metrix Air Glucose Meter] Kit See Rx Instructions .Route Qty: 1 0RF Rx Instructions: As directed (DME) True Metrix Glucose Test Strip Strip See Rx Instructions .Route Qty: 100 0RF Rx Instructions: As directed (DME) lancets 31 gauge misc See Rx Instructions .Route Qty: 100 0RF Rx Instructions: As directed (DME) Dexcom G7 Sensor Device See Rx Instructions .ROUTE .MEDSUPPLY Qty: 1 Rx Instructions: As directed (DME) Intraoperative Neuromonitoring See Rx Instructions .Route .MEDSUPPLY Qty: 1 0RF Rx Instructions: As directed (DME) pen needle, diabetic [BD Ultra-Fine Micro Pen Needle] 32 gauge x 1/4 needle See Rx Instructions .ROUTE .MEDSUPPLY Qty: 100 3RF Rx Instructions: As directed (DME) insulin syringe-needle U-100 [BD Insulin Syringe Ultra-Fine] 1 mL 31 gauge x 5/16 syringe See Rx Instructions .ROUTE .COMPLEX Qty: 100 1RF Dose Instruction: DIRECTED Rx Instructions: DIRECTED amlodipine 10 mg tablet 10 mg PO QAM carvedilol 25 mg Tablet 25 mg PO Q12H Rx Instructions: must administer with a meal/food amitriptyline 50 mg tablet 50 mg PO BEDTIME epinephrine 0.3 mg/0.3 mL auto-injector See Rx Instructions .ROUTE .COMPLEX Rx Instructions: INJECT 0.3 INTRAMUSCULARLY ONCE DAILY NEEDED FOR ANAPHYLAXIS bupropion HCl 150 mg tablet extended release 24 hr 150 mg PO DAILY atorvastatin 80 mg tablet 80 mg PO BEDTIME aspirin 81 mg tablet,delayed release (DR/EC) 81 mg PO DAILY gabapentin 100 mg capsule 200 mg PO TID ondansetron 4 mg tablet,disintegrating 4 mg PO Q6H PRN (Reason: nausea/emesis) aripiprazole 5 mg tablet 5 mg PO DAILY hydralazine 100 mg tablet 100 mg PO BID Qty: 60 0RF bumetanide 1 mg tablet 1 mg PO DAILY Qty: 30 0RF insulin lispro [Humalog KwikPen Insulin] 100 unit/mL insulin pen See Rx Instructions .ROUTE .COMPLEX Qty: 15 0RF Rx Instructions: Inject 6 units 3 times daily plus MEDIUM dose sliding scale. Less than/equal to 70 treat hypoglycemia per nursing protocol. 71-119 No additional insulin. 120-150 2 units. 151-200 4 units. 201-250 6 units. 251-300 8 units. 301-350 10 units. Greater than 351 12 units. isosorbide mononitrate 30 mg tablet extended release 24 hr 30 mg PO DAILY spironolactone 25 mg tablet 25 mg PO DAILY clonidine HCl 0.2 mg tablet 0.2 mg PO TID doxazosin 4 mg tablet 4 mg PO BEDTIME albuterol sulfate [Ventolin HFA] 90 mcg/actuation HFA aerosol inhaler 2 puff INHALATION Q6H PRN (Reason: Shortness Of Breath) oxycodone 5 mg tablet 5 mg PO Q8H PRN (Reason: Pain) sevelamer carbonate 800 mg tablet 800 mg PO TID naloxone 4 mg/actuation spray,non-aerosol See Rx Instructions .ROUTE .COMPLEX Rx Instructions: EMERGENCY USE ONLY. ADMINISTER 1 SPRAY (4MG) IN ONE NOSTRIL ONE TIME. MAY REPEAT IN ALTERNATING NOSTRILS EVERY 2-3 MINUTES UNTIL RESPONSIVE OR EMS ARRIVES. Rezvoglar KwikPen 100 unit/mL (3 mL) insulin pen 25 unit SUBCUT BID insulin glargine [Lantus Solostar U-100 Insulin] 100 unit/mL (3 mL) insulin pen 25 unit SUBCUT BID Referrals: Duke Alarcon [Primary Care Provider, Family Practice] Discharge Diet: As Directed, Cardiac and Diabetic Discharge Activity: Resume usual activity and Increase activity as tolerated Patient Instructions: GI Post Discharge Instructions w/ Anesthesia, Opioid Safety, Patient Portal & Penny Instructions Discharge Attestations Time Spent in Discharge Care*: greater than 30 min Specific Discharge Activities: educating patient, educating and/or supporting family/caregiver, discussing with pcp/other providers, discussing with embedded case manager/social workers/dc planners, documenting/other paperwork and evaluating patient/reviewing data Status at Discharge: Cognitive status at discharge: cognitively intact , Behavioral status at discharge: cooperative , Functional status at discharge: independent ambulation , Overall status at discharge: patient is back to baseline Quality Metrics Clinical Quality Measures [ No reported AMI, CVA or VTE this stay] Coding Level of Care Code 79681 Total time (in minutes) for Discharge: 65 Diagnoses End stage renal disease on dialysis due to type 1 diabetes mellitus E10.22; N18.6; Z99.2
[2025-06-18] MEDS: pantoprazole 40 mg SDV IVP (10:38)
[2025-06-18] MEDS: diphenhydrAMINE 50 mg/mL SDV 1mL 25 MG IVP (12:05)
--- NOTE | 2025-06-18 13:04 | PC.SOCIAL ---
*IMM* Important message from medicare gave to patient, initialed, dated and placed in chart.
[2025-06-18] MEDS: sodium chloride 0.9% (100 ml) 100 ML 50 ML (14:04)
--- NOTE | 2025-06-18 15:35 | PC.NURSE ---
Discharge instructions provided and discussed. m Post cardiac care instructions provided and discussed. Pt denies dizziness, and/or N/V post dialysis. Right groin site soft with hematoma or bleeding noted. Pt escorted to ED entrance where his ride is to meet him.
== END 2025-06-18 15:35 | disposition home or self-care (01) | DRG 280 ==
LOC: ER 13:11 → ER IP 14:11 → ICU 16:56
PROVIDERS: Hospitalist; Internal Medicine; Internal Medicine Nephrology; Student in an Organized Health Care Education/Training Program; Admitting Provider Student in an Organized Health Care Education/Training Program; Emergency Provider Emergency Medicine; PCP Family Medicine; Visit Provider Student in an Organized Health Care Education/Training Program
PROC: 0DJ08ZZ Inspection of Upper Intestinal Tract, Via Natural or Artificial Opening Endoscopic (ICD-10-PCS; principal; 2025-06-17 10:30)
PROC: 4A023N7 Measurement of Cardiac Sampling and Pressure, Left Heart, Percutaneous Approach (ICD-10-PCS; principal; 2025-06-18 10:35)
DX: I16.1 Hypertensive emergency (principal); I50.23 Acute on chronic systolic (congestive) heart failure; I21.A1 Myocardial infarction type 2; N18.6 End stage renal disease; I13.2 Hypertensive heart and chronic kidney disease with heart failure and with stage 5 chronic kidney disease, or end stage renal disease; F17.200 Nicotine dependence, unspecified, uncomplicated; E87.5 Hyperkalemia; D63.1 Anemia in chronic kidney disease; E10.22 Type 1 diabetes mellitus with diabetic chronic kidney disease; Z79.4 Long term (current) use of insulin; Z99.2 Dependence on renal dialysis; Z79.82 Long term (current) use of aspirin; Z79.899 Other long term (current) drug therapy; Z91.030 Bee allergy status; Z88.8 Allergy status to other drugs, medicaments and biological substances; Z91.148 Patient's other noncompliance with medication regimen for other reason
CPT/HCPCS: 36415; 36416; 36430; 43235; 51798; 71045; 71275; 74177; 80053; 80061; 80306; 81001; 82310; 82607; 82746; 82962; 83010; 83036; 83540; 83550; 83605; 83615; 83690; 83735; 83880; 83970; 84100; 84145; 84443; 84484; 85014; 85018; 85025; 85045; 85362; 85378; 85384; 85610; 85730; 86706; 86803; 86850; 86900; 86920; 87040; 87086; 87340; 87486; 87581; 87633; 87806; 90935; 93005; 93306; 93458; 94664; 96365; 96372; 96375; 99152; 99153; 99285; C1760; C1769; C1887; C1894; G0269; J0360; J1171; J1200; J1644; J1815; J2250; J2270; J2404; J2405; J2470; J2704; J3010; J3490; J7030; J9999; P9040; Q3014; Q5105; Q9967

== ENCOUNTER 2025-06-26 12:39 | Inpatient (IN) | payer MEDICARE, MEDICAID, SELFPAY ==
[2025-06-26] VITALS (97 sets, daily range): BP systolic 171–250; BP diastolic 85–142; PULSE 84–101; RESP 16–20; TEMP 36.4–36.9; O2SAT 86–100; BMI 28.8
--- NOTE | 2025-06-26 12:44 | ECG_ITS ---
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 Measurements Intervals [place] Rate: 95 P: 42 LA: 177 QRS: 20 QRSD: 104 T: 81 QT: 388 QTc: 490 Interpretive Statements SINUS RHYTHM POSSIBLE LEFT ATRIAL ENLARGEMENT [-0.1mV P-WAVE IN V1/V2] NONSPECIFIC T-WAVE ABNORMALITY Compared to ECG 06/15/2025 17:54:26 NO SIGNIFICANT CHANGE Electronically Signed On 06-26-2025 18:51:48 CDT by Ronald Tony M.D. [email or web address] [id number]
--- OUTSIDE RECORDS SUMMARY | 2025-06-26 12:48 | XMS_ITS | Encounter Summary ---
Author Organization [facility] Address [address] [place] [address] Care Team Providers Care Sewing Machine Operator Semiautomatic Name Role Phone Duke Alarcon MD Primary Care Provider [phone] Encounter Details Date Type Department Care Team (Late st Contact Info) Description 06/22/2025 External Device Data [facility] ABSTRACTION Provider, Abstract [...] on file Legal Sex Male 3:23 AM DIRECTOR OF RETAIL Gender Identity Not on file Sexual Orientation Not on file documented as of this encounter Plan of Treatment Upcoming Encounters Date Type Department Care Team (Late Contact Info) Description 07/05/2025 2:20 PM CDT Office Visit [address] [id number] Duke Alarcon MD [address] [address] 07/07/2025 11:10 AM CDT Office Visit [facility] [place] [address] [place] [address] Kim Servin MD [address] [place] [address] 08/09/2025 1:30 PM CDT Appointment [facility] [address] [place] [address] Lawanda Mendoza, [facility] [address] [facility] [address] [place] [address] 09/27/2025 9:30 AM DIRECTOR OF RETAIL Office Visit [facility] Room Service Supervisor Optometry [facility] [phone] [place] [address] Constantin Bales, OD [address] [place] [address] documented as of this encounter Visit Diagnoses Not on filedocumented in this encounter Care Teams Sewing Machine Operator Semiautomatic Relationship Specialty Start Date End Date Duke Alarcon MD [address] [address] PCP - General Family Practice 08/10/24 documented as of this encounter
--- OUTSIDE RECORDS SUMMARY | 2025-06-26 12:48 | XMS_ITS | Encounter Summary ---
Author Organization [facility], [facility] Address [address] [place] [address] Phone Care Team Providers Care Sales Receptionist Name Role Phone Duke Alarcon MD Primary Care Provider [phone] Encounter Details Date Type Department Care Team (Late st Contact Info) Description 06/22/2025 Treatment [facility] [address] [place] [address] Jacki Gill NP [address] [place] [address] End stage renal disease; Dependence on renal dialysis; Type 1 diabetes mellitus with diabetic chronic kidney disease Social History Tobacco Use Types Packs/Day Years [...] encounter Miscellaneous Notes * Dialysis Note - Jacki Gill NP - 06/22/2025 12:00 AM CDT Patient: Hunter San : 1990 Note Type: Dialysis Rounds-Comp Service Date: 06/22/2025 This patient was personally seen [id number] for a complete visit as part of routine monthly dialysis care for end stage renal disease. Primary cause of renal failure: E10.22 - Type 1 diabetes mellitus with diabetic chronic kidney disease Attending Business Objects Developer: HODAN VALERA Dialysis Location: [facility] Schedule: Shift: 2 OVERVIEW Patient is stable. Patient has no complaints. COMMENTS: Seen on HD. DIALYSIS PRESCRIPTION Treatment Data Treatment Date: 06/22/2025 started at: 12:27 PM Dialysate / Machine Temp (prescribed): 37.0*C Dialysate / Machine Temp (actual): 37.1*C BFR (prescribed): 550 BFR (actual): 550 DFR (prescribed): Autoflow 2.0 DFR (actual): 800 Prescribed Time: 04:00 EDW (kg): 100.5 Dialyzer: 180NRe Optiflux Dialysate: 2.0 K, 2.5 Ca, 1.0 Mg, 100 Dextrose (G2251) Sodium: 138 Bicarb: 34 Pre Dialysis Vitals Pre BP Sit: 159/103 Pre Wt (kg): 104.1 EDW Deviation (kg): 3.6 Temp: 98.1*F Current Dialysis Vitals BP Sit: 121/68 AP/DIVISION MERCHANDISE MANAGER: 202/190 Pulse: 87 TREATMENT MEDICATIONS ORDERS Heparin Sodium (Porcine) 1,000 Units/mL Systemic 7000 units IVP Every Treatment 12/24/2024 - 12/23/2025 Mircera 60 mcg IVP Every 2 weeks During Dialysis 06/15/2025 - 06/14/2026 BP AND FLUID ASSESSMENT Acceptable blood pressure. Fluid status acceptable. Post BP Sit 134/80 - 06/19/2025 186/89 - 06/12/2025 140/92 - 06/10/2025 Post Wt (kg) 100.5 - 06/19/2025 100.8 - 06/12/2025 101.2 - 06/10/2025 EDW (kg) 101.2 - 06/19/2025 101.2 - 06/12/2025 101.2 - 06/10/2025 Deviation (kg) -0.7 - 06/19/2025 -0.4 - 06/12/2025 0.0 - 06/10/2025 ADEQUACY ASSESSMENT spKt/V (Daugirdas II) 1.57 (06/12/25) 1.26 (05/29/25) 1.46 (04/15/25) eKdrt/V 1.39 (06/12/25) 1.12 (05/29/25) 1.28 (04/15/25) % Urea Reduction 73 (06/12/25) 66 (05/29/25) 70 (04/15/25) BUN 62 (06/12/25) 44 (05/29/25) 50 (04/15/25) BUN Post Dialysis 17 (06/12/25) 15 (05/29/25) 15 (04/15/25) Creatinine 7.52 (06/01/25) 7.48 (05/27/25) 7.28 (04/15/25) Bicarbonate (CO2) 27 (06/01/25) 28 (05/27/25) 21 (04/15/25) Sodium 131 (06/01/25) 138 (04/15/25) 135 (03/18/25) COMMENTS: No new labs Missed Treatments 2 - Last 30 days 8 - Last 60 days Most recently missed on 06/17/2025 ACCESS ASSESSMENT Vascular access examined. AVF/AVG positive thrill/bruit. Current access is permanent and functioning well. AVFistula Standard Right Upper Arm Active (In Use) - 04/24/2025 Placed - 01/18/2025 Access Flow 1149 (05/11/25) ANEMIA ASSESSMENT Hemoglobin 9.1 (06/10/25) 7.0 (06/03/25) 7.9 (06/01/25) Iron Saturation (TSat) 23 (06/03/25) 20 (06/01/25) 17 (04/15/25) Ferritin 3,018 (06/03/25) 667 (06/01/25) 625 (03/25/25) Iron 60 (06/03/25) 56 (06/01/25) 44 (04/15/25) TIBC 256 (06/03/25) 280 (06/01/25) 260 (04/15/25) MCV 95 (06/01/25) 94 (05/27/25) 98 (04/15/25) Folate 5.2 (12/17/24) 6.0 (12/15/24) Vitamin B-12 1,967 (12/15/24) Platelets 227 (06/01/25) 243 (05/27/25) 226 (04/15/25) COMMENTS: No new labs to review BMM ASSESSMENT Calcium 8.7 06/01/25 7.8 05/27/25 8.0 04/15/25 Corrected Calcium 9.0 06/01/25 8.2 05/27/25 8.8 04/15/25 Phosphorus 6.7 06/01/25 9.5 04/15/25 6.0 03/18/25 Calcium Phosphorus Product 58 06/01/25 76 04/15/25 49 03/18/25 PTH 161 03/18/25 198 12/17/24 148 12/15/24 Vitamin D, 25-OH, Total 11.3 12/17/24 10.4 12/15/24 Magnesium 2.2 03/18/25 1.9 12/17/24 2.0 12/15/24 Alkaline Phosphatase 64 03/18/25 147 12/17/24 186 12/15/24 Aluminum 9 12/17/24 ?5 12/15/24 COMMENTS: No new labs to review NUTRITION ASSESSMENT Albumin 3.6 06/01/25 3.5 05/27/25 3.0 04/15/25 Potassium 5.5 06/01/25 5.5 05/27/25 5.6 05/11/25 eNPCR 1.12 06/12/25 0.74 05/29/25 0.82 04/15/25 Hemoglobin A1C 8.3 03/18/25 8.5 12/17/24 8.4 12/15/24 COMMENTS: NO new labs to review PHYSICAL EXAM Exam not performed. ADDITIONAL LABS WBC 8.81 (06/01/25) 7.57 (05/27/25) 9.59 (04/15/25) Hepatitis B Surface Ab 13 (12/17/24) 14 (12/15/24) ADDITIONAL COMMENT COMMENTS: No changes to POC or orders today Signed by: JACKI GILL NP on 06/22/2025 at 03:27:03 PM Transcribed by: JACKI GILL NP on 06/22/2025 at 03:27:03 PM documented in this encounter Plan of Treatment Not on file documented as of this encounter Visit Diagnoses Diagnosis End stage renal disease Dependence on renal dialysis Type 1 diabetes mellitus with diabetic chronic kidney disease documented in this encounter Care Teams Sales Receptionist Relationship Specialty Start Date End Date Duke Alarcon MD [address] [phone] PCP - General Family Medicine 08/12/24 documented as of this encounter
--- OUTSIDE RECORDS SUMMARY | 2025-06-26 12:48 | XMS_ITS | Encounter Summary ---
Author Organization [facility], [facility] Address [address] [place] [address] Phone Care Team Providers Care Technical Solutions Engineer Name Role Phone Duke Alarcon MD Primary Care Provider [phone] Encounter Details Date Type Department Care Team (Late st Contact Info) Description 04/20/2025 TCM in Dialysis Clinic [facility], [facility] [address] [place] [address] Jacki Gill NP [address] [place] [address] Social History Tobacco Use Types [...] 04/20/2025 The patient was seen for a [id number] visit as part of Transitional Care Management services. Primary cause of renal failure: E10.22 - Type 1 diabetes mellitus with diabetic chronic kidney disease Attending Hat Cutter: HODAN VALERA Dialysis Location: [facility] Schedule: Shift: 2 HOSPITALIZATION SUMMARY Patient [...] with patient, and discussed maintaining compliance Current [facility] Outpatient Medications Abilify 5 mg tablet [...] patient or caregiver VISIT DIAGNOSES CPT Code 05060 - High complexity, seen 8-14 days post discharge or moderate complexity, seen [id number] days of discharge. I16.0 Hypertensive urgency COMMENTS: [...] on filedocumented in this encounter Care Teams Technical Solutions Engineer Relationship Specialty Start Date End Date Duke Alarcon MD [address] [address] PCP - General Family Medicine 08/12/24 documented as of this encounter
--- OUTSIDE RECORDS SUMMARY | 2025-06-26 12:48 | XMS_ITS | Encounter Summary ---
Author Organization [facility] Address [address] [place] [address] Care Team Providers Care Variety Lathe Operator Name Role Phone Duke Alarcon MD Primary Care Provider [phone] Reason for Visit * Reason Onset Date Comments Medication Refill 06/22/2025 Encounter Details Date Type Department Care Team (Late st Contact Info) Description 06/22/2025 Refill [facility] Medicine [address] [address] Duke Alarcon MD [address] [place] [address] Osteoarthritis of spine with radiculopathy, lumbar [...] on file Legal Sex Male 3:23 AM HEALTH AND WELLNESS SALES CONSULTANT Gender Identity Not on file Sexual Orientation Not on file documented as of this encounter Miscellaneous Notes * Telephone Encounter - Enid Rojo RN - 06/22/2025 3:58 PM CDT Medication Refill Request Last Fill Date: 06/15/25 #20 tablets Recent and Future Visits: Recent Visits Date Type Provider Dept 05/31/25 Office Visit Duke Alarcon MD [facility] 05/03/25 Office Visit Duke Alarcon MD [facility] 01/25/25 Office Visit Duke Alarcon MD [facility] 01/04/25 Office Visit Deysi Vargas [facility] 12/21/24 Office Visit Duke Alarcon MD [facility] 12/16/24 Office Visit Mel Dowd [facility] 11/10/24 Office Visit Roberta Kennedy NP [facility] 10/01/24 Office Visit Mel Dowd, [facility] 09/14/24 Office Visit Deysi Vargas, [facility] 09/04/24 Office Visit Mel Dowd, [facility] Showing recent visits within past 540 days with a meds authorizing provider and meeting all other requirements Future Appointments Date Type Provider Dept 07/05/25 Appointment Duke Alarcon MD [facility] Showing future appointments within next 365 days with a meds authorizing provider and meeting all other requirements documented in this encounter Plan of Treatment Upcoming Encounters Date Type Department Care Team (Late st Contact Info) Description 07/05/2025 2:20 PM CDT Office Visit [address] [address] Duke Alarcon MD [address] [phone] 07/07/2025 11:10 AM CDT Office Visit [facility] [place] [address] [place] [address] Kim Servin MD [address] [place] [address] 08/09/2025 1:30 PM CDT Appointment [facility] [address] [place] [address] Lawanda Mendoza, VP AD SALES WEST [address] [facility] [facility] [address] [place] [address] 09/27/2025 9:30 AM HEALTH AND WELLNESS SALES CONSULTANT Office Visit [facility] Optometry [facility] [phone] [place] [address] Constantin Bales, OD [address] [place] [address] documented as of this encounter Visit Diagnoses Diagnosis Osteoarthritis of spine with radiculopathy, lumbar region documented in this encounter Care Teams Variety Lathe Operator Relationship Specialty Start Date End Date Duke Alarcon MD [address] [facility] [address] [place] [address] PCP - General Family Practice 08/10/24 documented as of this encounter
--- OUTSIDE RECORDS SUMMARY | 2025-06-26 12:48 | XMS_ITS | Encounter Summary ---
Author Organization [facility] Address [address] [place] [address] Care Team Providers Care Director Personal Name Role Phone Karlo Banks MD Primary Care Provider [phone] Encounter Details Date Type Department Care Team (Latest Contact Info) Description 11/01/2003 Outpatient Historical [facility] [address] [place] [phone] Holland Bell MD [address] [place] [address] ASTHMA UNSPECIFIED (Primary Dx) Social History Tobacco Use Types Packs/Day Years Used Date Smoking Tobacco: Never Assessed Sex and Gender Information Value Date Recorded Sex Assigned at Not on file Legal Sex Male 5:07 AM STEAM BONE PRESS TENDER Gender Identity Not on file Sexual Orientation Not on file documented as of this encounter Plan of Treatment Not on file documented as of this encounter Visit Diagnoses Diagnosis Unspecified asthma(493.90)- Primary Unspecified asthma documented in this encounter Care Teams Director Personal Relationship Specialty Start Date End Date Karlo Banks MD PCP - General Internal Medicine 10/14/14 01/11/21 documented as of this encounter
--- OUTSIDE RECORDS SUMMARY | 2025-06-26 12:48 | XMS_ITS | Encounter Summary ---
Author Organization [facility] Address [address] [place] [address] Phone Care Team Providers Care Latex Ribbon Machine Operator Name Role Phone Duke Alarcon MD Primary Care Provider [phone] Encounter Details Date Type Department Care Team (Late st Contact Info) Description 06/22/2025 Orders Only [facility] [address] [place] [address] Angélica Ny MD [address] [place] [address] Social History Tobacco Use Types [...] Procedure Name Priority Date/Time Associated Diagnosis Comments HD KINETICS Routine 06/22/2025 SPECIAL CHEMISTRY Routine 06/22/2025 POST CHEMISTRY Routine 06/22/2025 TRACE ELEMENTS Routine 06/22/2025 HEMATOLOGY Routine 06/22/2025 CHEMISTRY Routine 06/22/2025 CHEMISTRY Routine 06/22/2025 [facility] LAB RESULTS Routine 06/22/2025 documented in this encounter Results * [facility] Lab Results (06/22/2025) Pathologist [facility] eKdrt/V 1.49 [facility] spKt/V Gotch 1.71 [facility] [place] WSTDKT/V 1.7 [facility] eKt/V ([place]) 1.50 [facility] PCR 80.03 [facility] spKt/V (Daugirdas II) 1.72 [facility] nPCR_HD 0.88 [facility] eKt/V Gotch 1.49 [facility] [place] eNPCR 0.85 [facility] 06/22/2025 06/22/2025 [facility] Ordering Provider LAB BLOOD ORDERABLES Final Result [facility] Contact Performing lab Unknown, [place] * HD KINETICS (06/22/2025) Pathologist [facility] % Urea Reduction 76 65 - 80 % [facility] 06/22/2025 06/23/2025 11: 41 AM CDT Narrative Resulting Agency Comment Specimen source: Plasma Angélica Ny MD LAB BLOOD ORDERABLES Final Re sult [facility] See order comments or contact performing lab Unknown, [place] * POST CHEMISTRY (06/22/2025) Pathologist [facility] BUN Post Dialysis 14 6 - 19 mg/dL [facility] 06/22/2025 06/23/2025 11: 41 AM CDT Narrative [facility] - 06/23/2025 Unless otherwise specified, test(s) performed at: [facility], [address] [place], [place] [id number] AMERICAN SIGN LANGUAGE TEACHER: Ulises De Paz M.D. For any questions, please call customer service at FREQUENCY:MONTHLY Resulting Agency Comment Specimen source: Plasma us Angélica Ny MD LAB BLOOD ORDERABLES Final Re sult [facility] See order comments or contact performing lab Unknown, [place] * (ABNORMAL) SPECIAL CHEMISTRY (06/22/2025) Pathologist [facility] Hemoglobin A1C 6.3(H) 4.8 - 5.9 % [facility] 06/22/2025 06/23/2025 11: 03 AM CDT Narrative [facility] - 06/23/2025 Unless otherwise specified, test(s) performed at: [facility], [address] [place] [address] AMERICAN SIGN LANGUAGE TEACHER: Ulises De Paz M.D. For any questions, please call customer service at FREQUENCY:MONTHLY Resulting Agency Comment Specimen source: Blood us Angélica Ny MD LAB BLOOD BANK TEST ORDERABLE S Final Result Performing Organization Address [facility]/ZIP Co de Phone Number [facility] See order comments or contact performing lab Unknown, [place] * TRACE ELEMENTS (06/22/2025) [facility] Aluminum <5 0 - 10 mcg/L [facility] Comment: This test was developed and its performance characteristics determined by [facility]. It has not been cleared or approved by the FDA. The laboratory is regulated under CLIA as qualified to perform high complexity testing. This test is used for clinical purposes. It should not be regarded as investigational or for research. 06/22/2025 06/23/2025 10: 53 AM CDT Narrative [facility] - 06/23/2025 Unless otherwise specified, test(s) performed at: [facility], [address] [place], [place] [id number] AMERICAN SIGN LANGUAGE TEACHER: Ulises De Paz M.D. For any questions, please call customer service at FREQUENCY:MONTHLY Resulting Agency Comment Specimen source: Serum us Angélica Ny MD LAB BLOOD ORDERABLES Final Re sult [facility] See order comments or contact performing lab Unknown, [place] * (ABNORMAL) [facility] Chemistry (06/22/2025) Ferritin 812(H) 22 - 322 ng/mL [facility] BUN 59(H) 6 - 19 mg/dL [facility] Creatinine 8.31(H) 0.60 - 1.30 mg/dL [facility] BUN/Creatinine Ratio 7.1(L) 10.0 - 20.0 [facility] Sodium 135(L) 136 - 145 mEq/L [facility] Potassium 5.9(H) 3.5 - 5.1 mEq/L [facility] Chloride 100 96 - 108 mEq/L [facility] Bicarbonate (CO2) 22 22 - 29 mEq/L [facility] Calcium 8.5 8.4 - 10.2 mg/dL [facility] Corrected Calcium 9.2 8.4 - 10.2 mg/dL [facility] Comment: Corrected Calcium is not equivalent to measured Ionized Calcium. Phosphorus 6.6(H) 2.6 - 4.5 mg/dL [facility] Calcium Phosphorus Product 56(H) 0 - 54 [facility] Calcium Phosporus Product, Cor 61(H) 0 - 54 [facility] Alkaline Phosphatase 76 40 - 129 U/L [facility] Total Protein 5.6(L) 6.0 - 8.5 g/dL [facility] Albumin 3.1(L) 3.5 - 5.2 g/dL [facility] Globulin, Total 2.5 2.0 - 4.0 g/dL [facility] A/G Ratio 1.2 1.0 - 2.0 [facility] Glucose 151(H) 70 - 100 mg/dL [facility] Magnesium 3.0(H) 1.6 - 2.6 mg/dL [facility] Iron 45 45 - 160 mcg/dL [facility] UIBC 189 155 - 355 mcg/dL [facility] TIBC 234 185 - 515 mcg/dL [facility] Iron Saturation (TSat) 19(L) 20 - 55 % [facility] 06/22/2025 06/23/2025 11: 31 AM CDT Lucille [facility] - 06/23/2025 Unless otherwise specified, test(s) performed at: [facility], [address] [place] [address] AMERICAN SIGN LANGUAGE TEACHER: Ulises De Paz M.D. For any questions, please call customer service at FREQUENCY:MONTHLY Resulting Agency Comment Specimen source: Serum Angélica Ny MD LAB BLOOD ORDERABLES Edited R esult - Final [facility] See order comments or contact performing lab Unknown, [place] * (ABNORMAL) HEMATOLOGY (06/22/2025) Neutrophils 71.1 40.0 - 75.0 % [facility] Lymphocytes Relative 13.2(L) 19.0 - 48.0 % [facility] Monocytes 6.3 3.0 - 10.0 % [facility] Eosinophils Relative 4.4 0.0 - 7.0 % [facility] Basophils Relative 1.2 0.0 - 1.5 % [facility] KALLIE 3.8 0.0 - 4.0 % [facility] WBC 9.13 4.80 - 10.80 1000/mcL [facility] RBC 2.95(L) 4.70 - 6.10 mill/mcL [facility] Hematocrit 26.5(L) 42.0 - 52.0 % [facility] MCV 90 80 - 100 fl [facility] MCH 31.9(H) 27.0 - 31.0 pg [facility] MCHC 35.5 30.0 - 36.0 g/dL [facility] RDW 15.1(H) 11.5 - 14.5 % [facility] Hemoglobin 9.4(L) 14.0 - 18.0 g/dL [facility] Hemoglobin x 3 28.2(L) 42.0 - 54.0 % [facility] Platelets 346 130 - 400 1000/mcL [facility] 06/22/2025 06/23/2025 11: 03 AM CDT Narrative [facility] - 06/23/2025 Unless otherwise specified, test(s) performed at: [facility], [address] [place], [place] [id number] AMERICAN SIGN LANGUAGE TEACHER: Ulises De Paz M.D. For any questions, please call customer service at FREQUENCY:MONTHLY Resulting Agency Comment Specimen source: Blood us Angélica Ny MD LAB BLOOD ORDERABLES Final Re sult Performing Organization Address City/[facility]/ZIP Co de Phone Number [employer] See order comments or contact performing lab Unknown, [place] * (ABNORMAL) [facility] Chemistry (06/22/2025) PTH 143(H) 16 - 80 pg/mL [facility] 06/22/2025 06/23/2025 10: 59 AM CDT Narrative [facility] - 06/23/2025 Unless otherwise specified, test(s) performed at: [facility], [address] [place] [address] AMERICAN SIGN LANGUAGE TEACHER: Ulises De Paz M.D. For any questions, please call customer service at FREQUENCY:MONTHLY Resulting Agency Comment Specimen source: Plasma us Angélica Ny MD LAB BLOOD ORDERABLES Final Re sult Performing Organization Address [facility] Co de Phone Number [employer] See order comments or contact performing lab Unknown, [place] documented in this encounter Visit Diagnoses Not on filedocumented in this encounter Care Teams Latex Ribbon Machine Operator Relationship Specialty Start Date End Date Duke Alarcon MD [address] [facility] [address] [place] [address] PCP - General Family Medicine 08/12/24 documented as of this encounter
--- OUTSIDE RECORDS SUMMARY | 2025-06-26 12:48 | XMS_ITS | Encounter Summary ---
Author Organization [facility] Address [address] [place] [address] Phone Care Team Providers Care Supervisor Pumping Station Name Role Phone Duke Alarcon MD Primary Care Provider [phone] Encounter Details Date Type Department Care Team (Late st Contact Info) Description 06/24/2025 Orders Only [facility] [address] [place] [address] Angélica Ny MD [address] [place] [address] Social History Tobacco Use Types [...] Priority Date/Time Associated Diagnosis Comments HEMATOLOGY Routine 06/24/2025 documented in this encounter Results * (ABNORMAL) HEMATOLOGY (06/24/2025) Hemoglobin 9.1(L) 14.0 - 18.0 g/dL [facility] Hemoglobin x 3 27.3(L) 42.0 - 54.0 % [facility] 06/24/2025 06/25/2025 11: 31 AM CDT Narrative [facility] Paula - 06/25/2025 Unless otherwise specified, test(s) performed at: [facility], [address] [place] [address] FILM PROCESSOR: Ulises De Paz M.D. For any questions, please call customer service at FREQUENCY:OTHER Resulting Agency Comment Specimen source: Blood Angélica Ny MD LAB BLOOD ORDERABLES Final Re sult [facility] See order comments or contact performing lab Unknown, [place] documented in this encounter Visit Diagnoses Not on filedocumented in this encounter Care Teams Supervisor [place]umping [place] Relationship Specialty Start Date End Date Duke Alarcon MD [address] [facility] [address] [place] [phone] PCP - General Family Medicine 08/12/24 documented as of this encounter
--- OUTSIDE RECORDS SUMMARY | 2025-06-26 12:48 | XMS_ITS | Encounter Summary ---
Author Organization [facility], [facility] Address [address] [place] [address] Phone Care Team Providers Care Ordnance Artificer Helper Name Role Phone Duke Alarcon MD Primary Care Provider [phone] Encounter Details Date Type Department Care Team (Late st Contact Info) Description 05/25/2025 TCM in Dialysis Clinic [facility], [facility] [address] [place] [address] Sixto Waller CHRISTIAN SCIENCE READER [address] [place] [address] Social History Tobacco Use Types [...] 05/25/2025 The patient was seen for a wain-mw-pzhu visit as part of Transitional Care Management services. Primary cause of renal failure: E10.22 - Type 1 diabetes mellitus with diabetic chronic kidney disease Attending Shoe Turner: HODAN VALERA Dialysis Location: [facility] Schedule: Shift: 2 HOSPITALIZATION SUMMARY [...] 98.7*F Current Dialysis Vitals BP Sit: 185/93 AP/KENNEL OPERATOR: 12/116 Pulse: 89 CARE COORDINATION Post-discharge follow-up appointments reviewed with the patient. EDUCATION COMMENTS: wt gain IMPRESSION & PLAN COMMENTS: hypertension: continue meds. UF 3L 05/26/25 to help with BP. Education provided. ESRD: Continue dialysis TTS. VISIT DIAGNOSES CPT Code 47518 - High complexity, seen within 7 days of discharge. I16.9 Hypertensive crisis, unspecified N18.6 End stage renal disease Signed by: SIXTO WALLER NP on 05/25/2025 at 05:23:55 PM Transcribed by: SIXTO WALLER NP on 05/25/2025 at 05:23:55 PM documented in this encounter Plan of Treatment Not on file documented as of this encounter Visit Diagnoses Not on filedocumented in this encounter Care Teams Ordnance Artificer Helper Relationship Specialty Start Date End Date Duke Alarcon MD [address] [address] PCP - General Family Medicine 08/12/24 documented as of this encounter
--- OUTSIDE RECORDS SUMMARY | 2025-06-26 12:48 | XMS_ITS | Clinical Summary ---
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
--- OUTSIDE RECORDS SUMMARY | 2025-06-26 12:48 | XMS_ITS | Encounter Summary ---
Author Organization [facility], [facility] Address [address] [place] [address] Phone Care Team Providers Care Brake Repairer Name Role Phone Duke Alarcon MD Primary Care Provider [phone] Encounter Details Date Type Department Care Team (Late st Contact Info) Description 01/12/2025 [facility] in [facility] [address] [place] [address] Sixto Waller INTERIOR ASSEMBLIES INSTALLER [address] [place] [address] Social History Tobacco Use Types [...] 01/12/2025 The patient was seen for a lhjy-xi-halg visit as part of Transitional Care Management services. Primary cause of renal failure: E10.22 - Type 1 diabetes mellitus with diabetic chronic kidney disease Attending Tile Professional: HODAN VALERA Dialysis Location: [facility] Schedule: Shift: 2 INTERACTIVE CONTACT Contact [...] 0.5 mg tablet Take as directed. Current [facility] Allergies Allergen: DAVID INHIBITORS Reaction: Cardiac [...] 97.8*F Current Dialysis Vitals BP Sit: 201/131 AP/MARINE WELDER: -- Pulse: 110 CARE COORDINATION No follow-up appointments noted. IMPRESSION & PLAN COMMENTS: ESRD requiring dialysis. Continue TTS. Hypertension. continue amlodipine, clonidine 0.2 mg 3 times a day, carvedilol 25 mg, spironolactone 25 mg and we will add hydralazine 50 mg twice a day VISIT DIAGNOSES CPT Code 73566 - High complexity, seen within 7 days [...] on filedocumented in this encounter Care Teams Brake Repairer Relationship Specialty Start Date End Date Duke Alarcon MD [address] [address] PCP - General Family Medicine 08/12/24 documented as of this encounter
--- OUTSIDE RECORDS SUMMARY | 2025-06-26 12:48 | XMS_ITS | Encounter Summary ---
Author Organization [facility] Address 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 Gender Identity Not on file Sexual Orientation Not on file documented as of this encounter Plan of Treatment Upcoming Encounters Date Type Department Care Team (Late st Contact Info) Description 07/05/2025 2:20 PM CDT Office Visit [address] [address] Duke Alarcon MD [address] [address] 07/07/2025 11:10 AM CDT Office Visit [facility] [place] [address] [place] [address] Kim Servin MD [address] [place] [address] 08/09/2025 1:30 PM CDT Appointment [facility] [address] [place] [address] Lawanda Mendoza, [facility] [address] [facility] [address] [place] [address] 09/27/2025 9:30 AM FIELD ASSESSOR Office Visit [facility] Chief Dispatcher Optometry [facility] [address] [place] [address] Constantin Bales, OD [address] [place] [address] documented as of this encounter Visit Diagnoses Diagnosis Malignant hypertension Essential hypertension, malignant documented in this encounter Care Teams Astrophysics Professor Relationship Specialty Start Date End Date Duke Alarcon MD [address] [address] PCP - General Family Practice 08/10/24 documented as of this encounter
--- OUTSIDE RECORDS SUMMARY | 2025-06-26 12:48 | XMS_ITS | Encounter Summary ---
Author Organization [facility] Address [address] [place] [address] Care Team Providers Care Floral Associate Name Role Phone Karlo Banks MD Primary Care Provider [phone] Encounter Details Date Type Department Care Team (Latest Contact Info) Description 02/07/2004 Outpatient Historical [facility] [address] [place] [phone] Holland Bell MD [address] [place] [address] ASTHMA UNSPECIFIED (Primary Dx) Social History Tobacco Use Types Packs/Day Years Used Date Smoking Tobacco: Never Assessed Sex and Gender Information Value Date Recorded Sex Assigned at Not on file 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
--- OUTSIDE RECORDS SUMMARY | 2025-06-26 12:48 | XMS_ITS | Encounter Summary ---
Author Organization [facility] Address [address] [place] [address] Care Team Providers Care Sports Marketer Name Role Phone Karlo Banks MD Primary Care Provider [phone] Encounter Details Date Type Department Care Team (Latest Contact Info) Description 02/24/2004 Outpatient Historical [facility] [address] [place] [phone] Holland Bell MD [address] [place] [phone] CONJUNCTIVITIS NOS (Primary Dx) Social History Tobacco Use Types Packs/Day Years Used Date Smoking Tobacco: Never Assessed Sex and Gender Information Value Date Recorded Sex Assigned at Not on file 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
--- OUTSIDE RECORDS SUMMARY | 2025-06-26 12:48 | XMS_ITS | Encounter Summary ---
Author Organization [facility] Address 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 Gender Identity Not on file Sexual Orientation Not on file documented as of this encounter Plan of Treatment Upcoming Encounters Date Type Department Care Team (Late Contact Info) Description 07/05/2025 2:20 PM CDT Office Visit [address] [phone] Duke Alarcon MD [address] [address] 07/07/2025 11:10 AM CDT Office Visit [facility] [place] [address] [place] [address] Kim Servin MD [address] [place] [address] 08/09/2025 1:30 PM CDT Appointment [facility] Echo [address] [place] [address] Lawanda Mendoza, [facility] [address] [facility] [address] [place] [address] 09/27/2025 9:30 AM SURPLUS PROPERTY DISPOSAL AGENT Office Visit [facility] Canine Deputy Optometry [facility] [place] [place] [address] [place] [address] Constantin Bales, OD [address] [place] [address] documented as of this encounter Visit Diagnoses Not on filedocumented in this encounter Care Teams Meat Sales And Storage Manager Relationship Specialty Start Date End Date Duke Alarcon MD [address] [address] PCP - General Family Practice 08/10/24 documented as of this encounter
--- OUTSIDE RECORDS SUMMARY | 2025-06-26 12:48 | XMS_ITS ---
Author Name Enzo, Clinic Address [address] [place] [address] Phone [phone] Organization [facility] e, NA DOCUMENT DISCLAIMER Multiple document versions may exist, please be sure you review the latest version. The information in the [facility] Continuity of Care Document represents a summary of certain health and medical information. It may not contain the complete medical history for the patient and should be independently verified. The represented time in the document is Eastern Time. PROBLEMS Problem Code Status Onset Date Bacteremia R78.81 Active May 20, 2025 Non-ST elevation (NSTEMI) myocardial infarction I21.4 Active May 15, 2025 Nausea R11.0 Active May 13, 2025 Chronic [...] Diphenhydramine During Dialysis, PRN-may repeat x1 Itching 25 mg Intravenous - push May 27, 2025 May 26, 2026 Active Heparin Sodium (Porcine) 1,000 Units/mL Systemic Bolus, Every Treatment, Total treatment minutes 240 7000 units Intravenous - push December 24, 2024 December 23, 2025 Active Ondansetron HCl (Zofran) PRN-may repeat x1 nausea or emesis 4 mg Intravenous - push May 13, 2025 May 12, 2026 Active Clonidine HCl Once 0.2 mg Oral May 26, 2025 Discontinued Diphenhydramine During Dialysis, PRN-may repeat x1 Itching 50 mg Intravenous - push April 08, 2025 April 07, 2026 Discontinued Heparin Sodium (Porcine) 1,000 Units/mL Systemic Bolus, Once, Total treatment minutes 240 7000 units Intravenous - push May 26, 2025 Discontinued Iron Sucrose (Venofer) 1X Week 50 mg Intravenous - push May 25, 2025 May 24, 2026 Discontinued Mircera During Dialysis, Every 2 weeks 50 mcg Intravenous - push April 20, 2025 April 19, 2026 Discontinued Vancomycin HCl Post Dialysis, Every Treatment 1500 mg Intravenous May 25, 2025 June 05, 2025 Discontinued Home Medications Medication Instructions Dosage Route Start Date End Date Status Abilify 5 mg Take by mouth once a day 1 tablet ORAL December 24, 2024 Active albuterol sulfate 90 mcg/actuation Inhale as directed twice a day 2 puff INHALATION May 22, 2025 Active amitriptyline 50 mg Take by mouth [...] Active bumetanide 1 mg Take by mouth twice a day 1 tablet ORAL May 22, 2025 Active bupropion HCl 150 mg Take by mouth once a day 1 tablet ORAL April 14, 2025 Active carvedilol 25 mg Take by mouth every twelve hours 1 tablet ORAL December 22, 2024 Active Ppsyydln-TAU-8 0.2 mg/24 hr Apply to skin once a week 1 patch TRANSDERMAL May 31, 2025 Active cyclobenzaprine 10 mg Take by mouth three times a day as needed 1 tablet ORAL April 14, 2025 Active diphenhydramine HCl 25 mg Take by mouth as directed 1 tablet ORAL May 22, 2025 Active doxazosin 4 mg Take by mouth at bedtime 1 tablet ORAL May 22, 2025 Active epinephrine 0.3 mg/0.3 mL INJECTION December 22, 2024 Active ferrous gluconate 324 mg (37.5 mg iron) Take by mouth twice a day 1 tablet ORAL June 18, 2025 Active gabapentin 100 mg Take by mouth three times a day 2 capsule ORAL May 22, 2025 Active hydralazine 100 mg Take by mouth every eight hours 1 tablet ORAL May 22, 2025 Active insulin lispro 100 unit/mL Inject subcutaneously three times a day with meals 6 unit SUBCUTANEOUS May 22, 2025 Active isosorbide mononitrate 30 mg Take by mouth once a day 1 tablet ORAL May 22, 2025 Active Lantus Solostar U-100 Insulin 100 unit/mL (3 mL) Inject subcutaneously twice a day 25 unit SUBCUTANEOUS May 22, 2025 Active naloxone 4 mg/actuation Conrad into one nostril single dose 1 spray NASAL May 22, 2025 Active ondansetron 4 mg Take on tongue every six hours for nausea/vomiting 1 tablet ORAL May 22, 2025 Active Rezvoglar KwikPen 100 unit/mL (3 mL) Inject subcutaneously twice a day 25 unit SUBCUTANEOUS May 22, 2025 Active Sevelamer Carbonate Tablet 800 mg Take By Mouth Three times a day With Meals 1 Tablet By Mouth May 04, 2025 May 04, 2026 Active spironolactone 50 mg Take by mouth once a day 1 tablet ORAL May 22, 2025 Active tramadol 50 mg Take by mouth every eight hours as needed for pain 1 tablet ORAL May 22, 2025 Active trazodone 50 mg Take by mouth every night at bedtime 1 tablet ORAL May 22, 2025 Active varenicline tartrate 0.5 mg Take as directed ORAL December 24, 2024 Active cefdinir 300 mg Take by mouth once a day 1 capsule ORAL May 22, 2025 May 29, 2025 Discontinued clonidine HCl 0.2 mg Take by mouth three times a day 1 tablet ORAL May 31, 2025 Discontinued VITAL SIGNS Post-Treatment Vital Signs Vital Sign Value Date / Time Blood Pressure-sitting 168/80 mmHg June 24, 2025 12:11 PM Blood Pressure-standing 166/84 mmHg Steve 2024 12:11 PM Heart Rate 99 beats per minute June 12:11 PM Respiratory Rate 16 breaths per minute June 24, 2025 12:11 PM Temperature 98.0 deg. F June 24 12:11 PM Weight Vital Sign Value Date / Time Estimated Dry Weight 100 kg June 142024 11:59 PM Pre-Dialysis 100.40 kg June 24 12:11 PM Post-Dialysis 97.10 kg June 24 12:11 PM Other Other Value Date / Time Height 182.88 cm January 01, 2025 1 2:00 AM Body Mass Index 30.22 kg/m2 June 01, 2025 04:20 PM HEALTH CONCERNS Tuberculosis Testing TST Date Administered TST Date Read TST Result 12/15/2024 12/17/2024 Negative (<5) mm LAB RESULTS Hematology Result Type Result Value Relevant Referen ce Range Interpretation Date Folate, Serum 6.0 ng/mL No Reference Ran ge Provided - December 15, 2024 Folate, Serum 5.2 ng/mL No Reference [...] - 10.80 1000/mcL High February 18, 2025 Transferrin Sat. (Calc) 17 % 20 - 55 % Low February 18, 2025 TIBC (Calc) 228 mcg/dL 185 - 515 mcg/dL - February 18, 2025 UIBC/TIBC 190 mcg/dL 155 - 355 mcg/dL - February 18, 2025 Platelets 300 1000/mcL 130 - 400 1000/mcL - February 18, 2025 Neutrophils 69.2 % 40.0 - 75.0 % - February 18 Ferritin 569 ng/mL 22 - 322 ng/mL High February 18 TIBC (Calc) 218 mcg/dL 185 - 515 mcg/dL - March Transferrin Sat. (Calc) 18 % 20 - 55 % Low March 18, 2025 UIBC/TIBC 178 mcg/dL 155 - 355 mcg/dL - March 18, 2025 Neutrophils 67.5 % 40.0 - 75.0 % - March 18, Ferritin 510 ng/mL 22 - 322 ng/mL High March 18 WBC (No Diff) 10.17 1000/mcL 4.80 - 10.80 1000/mcL - March 18, 2025 Platelets 286 1000/mcL 130 - 400 1000/mcL - March 18, 2025 Ferritin 625 ng/mL 22 - 322 ng/mL High March 25, 025 Hemoglobin x 3 33 % 42.0 - 54.0 % Low March Hemoglobin x 3 31.8 % 42.0 - 54.0 % Low March Neutrophils 74.7 % 40.0 - 75.0 % - April 15 Lymphocytes 13.9 % 19.0 - 48.0 % Low April 15 WBC (No Diff) 9.59 1000/mcL 4.80 - 10.80 1000/mcL - April 15, 2025 Basophils 1.3 % 0.0 [...] 11.5 - 14.5 % High April 15 MCH 31.2 pg 27.0 - 31.0 pg High April 15 Platelets 226 1000/mcL 130 - 400 1000/mcL - April 15, 2025 Hemoglobin x 3 26.1 % 42.0 - 54.0 % Low April Iron 44 mcg/dL 45 - 160 mcg/dL Low April 15, 2025 Transferrin Sat. (Calc) 17 % 20 - 55 % Low April 15, 2025 UIBC/TIBC 216 mcg/dL 155 - 355 mcg/dL - April 15, 2025 TIBC (Calc) 260 mcg/dL 185 - 515 mcg/dL - April Hemoglobin x 3 27 % 42.0 - 54.0 % Low April Hemoglobin x 3 27.6 % 42.0 - 54.0 % Low April Hemoglobin x 3 23.7 % 42.0 - 54.0 % Low May 25, 2025 RDW 14.3 % 11.5 - 14.5 % - May 27, 2025 MCHC 33.0 g/dL 30.0 - 36.0 g/dL - May 142024 MCH 30.9 pg 27.0 - 31.0 pg - May 27, 2025 Platelets 243 1000/mcL 130 - 400 1000/mcL - 2024 Hemoglobin x 3 21.9 % 42.0 - 54.0 % Low May 27, 2025 HGB 7.3 g/dL 14.0 - 18.0 g/dL Low May 142024 Lymphocytes 16.9 % 19.0 - 48.0 % Low May 27, 2025 Neutrophils 69.3 % 40.0 - 75.0 % - May 27, 2025 KALLIE 1.9 % 0.0 - 4.0 % - May 27 25 Basophils 1.1 % 0.0 - 1.5 % - May 27 25 Eosinophil 3.8 % 0.0 - 7.0 % - May 27 25 Monocytes 7.0 % 3.0 - 10.0 % - May 27 025 HCT 22.1 % 42.0 - 52.0 % Low May 27, 2025 RBC 2.36 mill/mcL 4.70 - 6.10 mill/mcL Low May 27, 2025 WBC (No Diff) 7.57 1000/mcL 4.80 - 10.80 1000/mcL - May 27, 2025 UIBC/TIBC 224 mcg/dL 155 - 355 mcg/dL - May 142024 Iron 56 mcg/dL 45 - 160 mcg/dL - May Transferrin Sat. (Calc) 20 % 20 - 55 % - June 01, 2025 TIBC (Calc) 280 mcg/dL 185 - 515 mcg/dL - June 01, 2025 Ferritin 667 ng/mL 22 - 322 ng/mL High June 01, 2025 Hemoglobin x 3 23.7 % 42.0 - 54.0 % Low June 01, 2025 RDW 15.8 % 11.5 - 14.5 % High June 01, 2025 HGB 7.9 g/dL 14.0 - 18.0 g/dL Low May 142024 WBC (No Diff) 8.81 1000/mcL 4.80 - 10.80 1000/mcL - June 01, 2025 RBC 2.30 mill/mcL 4.70 - 6.10 mill/mcL Low June 01, 2025 KALLIE 2.1 % 0.0 - 4.0 % - June 01 25 MCH 34.2 pg 27.0 - 31.0 pg High June 01, 2025 MCHC 35.9 g/dL 30.0 - 36.0 g/dL - May 142024 HCT 21.9 % 42.0 - 52.0 % Low June 01, 2025 Eosinophil 4.1 % 0.0 - 7.0 % - June 01 25 Basophils 0.8 % 0.0 - 1.5 % - June 01 Lymphocytes 16.8 % 19.0 - 48.0 % Low June 01, 2025 Monocytes 5.5 % 3.0 - 10.0 % - June 01 025 Neutrophils 70.7 % 40.0 - 75.0 % - June 01, 2025 Platelets 227 1000/mcL 130 - 400 1000/mcL - 2024 TIBC (Calc) 256 mcg/dL 185 - 515 mcg/dL - June 03, 2025 UIBC/TIBC 196 mcg/dL 155 - 355 mcg/dL - May 152024 Transferrin Sat. (Calc) 23 % 20 - 55 % - June 03, 2025 Iron 60 mcg/dL 45 - 160 mcg/dL - May Hemoglobin x 3 21 % 42.0 - 54.0 % Low June 03, 2025 HGB 7.0 g/dL 14.0 - 18.0 g/dL Critically low 2024 Ferritin 3018 ng/mL 22 - 322 ng/mL High June 03, 2025 HGB 9.1 g/dL 14.0 - 18.0 g/dL Low May 152024 Hemoglobin x 3 27.3 % 42.0 - 54.0 % Low June 10, 2025 HGB 9.4 g/dL 14.0 - 18.0 g/dL Low Septembe r 2024 RDW 15.1 % 11.5 - 14.5 % High June MCHC 35.5 g/dL 30.0 - 36.0 g/dL - 2024 MCH 31.9 pg 27.0 - 31.0 pg High June 22, 2025 Ferritin 812 ng/mL 22 - 322 ng/mL High June 22, 2025 Platelets 346 1000/mcL 130 - 400 1000/mcL - Jun Hemoglobin x 3 28.2 % 42.0 - 54.0 % Low 2024 HCT 26.5 % 42.0 - 52.0 % Low June RBC 2.95 mill/mcL 4.70 - 6.10 mill/mcL Low June 22, 2025 Monocytes 6.3 % 3.0 - 10.0 % - June Lymphocytes 13.2 % 19.0 - 48.0 % Low June 22, 2025 Neutrophils 71.1 % 40.0 - 75.0 % - June 22, 2025 WBC (No Diff) 9.13 1000/mcL 4.80 - 10.80 1000/mcL - June 22, 2025 KALLIE 3.8 % 0.0 - 4.0 % - June 22, 2025 Basophils 1.2 % 0.0 - 1.5 % - June 22, 2025 Eosinophil 4.4 % 0.0 - 7.0 % - June 22, 2025 Transferrin Sat. (Calc) 19 % 20 - 55 % Low June 22, 2025 Iron 45 mcg/dL 45 - 160 mcg/dL - June 22, 2025 UIBC/TIBC 189 mcg/dL 155 - 355 mcg/dL - 2024 TIBC (Calc) 234 mcg/dL 185 - 515 mcg/dL - 2024 Hemoglobin x 3 27.3 % 42.0 - 54.0 % Low 2024 HGB 9.1 g/dL 14.0 - 18.0 g/dL Low 2024 Metabolic/Renal Result Type Result Value Relevant Referen ce Range Interpretation Date Vitamin B12 1967 pg/mL 211 - 911 pg/mL High December Hemoglobin A1c 8.3 % 4.8 - 5.9 % High March 18, 2025 BUN, Post 10 mg/dL 6 - 19 mg/dL - April 01 BUN 32 mg/dL 6 - 19 mg/dL High April 01 URR, Calc 69 % 65 - 80 % - April 01, 2025 Potassium 6.5 mEq/L 3.5 - 5.1 mEq/L High April 15, 2025 Chloride 104 mEq/L 96 - 108 mEq/L - April 15 025 Sodium 138 mEq/L 136 - 145 mEq/L - April 15, 2025 Bicarbonate 21 mEq/L 22 - 29 mEq/L Low April 15 025 Creatinine, Serum 7.28 mg/dL 0.60 - [...] - 5.1 mEq/L High May 11, 2025 Bicarbonate 28 mEq/L 22 - 29 mEq/L - May 27, 2025 Chloride 95 mEq/L 96 - 108 mEq/L Low May 27, 2025 Potassium 5.5 mEq/L 3.5 - 5.1 mEq/L High May Creatinine, Serum 7.48 mg/dL 0.60 - 1.30 mg/dL High May 27, 2025 BUN 44 mg/dL 6 - 19 mg/dL High May 29, 025 URR, Calc 66 % 65 - 80 % - May 29 BUN, Post 15 mg/dL 6 - 19 mg/dL - May 29 025 Sodium 131 mEq/L 136 - 145 mEq/L Low May Creatinine, Serum 7.52 mg/dL 0.60 - 1.30 mg/dL High June 01, 2025 Chloride 93 mEq/L 96 - 108 mEq/L Low June 01, 2025 Potassium 5.5 mEq/L 3.5 - 5.1 mEq/L High May Bicarbonate 27 mEq/L 22 - 29 mEq/L - June 01, 2025 URR, Calc 73 % 65 - 80 % - June 12 BUN 62 mg/dL 6 - 19 mg/dL High June 12 025 BUN, Post 17 mg/dL 6 - 19 mg/dL - [place] 30, 2 025 BUN, Post 14 mg/dL 6 - 19 mg/dL - June URR, Calc 76 % 65 - 80 % - June 22, 2025 Chloride 100 mEq/L 96 - 108 mEq/L - June 22, 2025 Bicarbonate 22 mEq/L 22 - 29 mEq/L - June 22, 2025 Sodium 135 mEq/L 136 - 145 mEq/L Low June 22, 2025 Creatinine, Serum 8.31 mg/dL 0.60 - 1.30 mg/dL High June 22, 2025 BUN/Creat Ratio 7.1 10.0 - 20.0 Low Septemb2024 Potassium 5.9 mEq/L 3.5 - 5.1 mEq/L High June 22, 2025 Hemoglobin A1c 6.3 % 4.8 - 5.9 % High June 22, 2025 BUN 59 mg/dL 6 - 19 mg/dL High June HD Adequacy Result Type Result Value Relevant Referen ce Range Interpretation Date Krt/V 0.00 No Reference Ran ge Provided - December 29, 2024 Krt/V 0.00 No Reference Ran ge Provided - January 14, 2025 Krt/V 0.00 No Reference Ran ge Provided - February 02, 2025 Krt/V 0.00 No Reference Ran ge Provided - February 18, 2025 Krt/V 0.00 [...] 01, 2025 spKt/V ([place]ird[place] II) 1.37 No Reference Range Provided - April 01, 2025 wstdKt/V, [...] 15, 2025 spKt/V ([place]augird[place] II) 1.46 No Reference Range Provided - April 15, 2025 wstdKt/V, residual 0.0 No Reference Range Provided - April 15, 2025 Krt/V 0.00 No Reference Ran ge Provided - May 29, 2025 wstdKt/V, residual 0.0 No Reference Range Provided - May 29, 2025 wstdKt/V without residual 3.0 No Reference Range Provided - May 29, 2025 spKt/V Gotch 1.27 No Reference Ran ge Provided - May 29, 2025 spKt/V (Daugirdas II) 1.26 No Reference Range Provided - May 29, 2025 eKt/V ([place]) 1.11 No Reference Range Provided - May 29, 2025 wstdKt/V 3.0 No Reference Ran ge Provided - May 29, 2025 spKt/V Got 1.60 No Reference Ran ge Provided - June 12, 2025 eKt/V ([place]) 1.37 No Reference Range Provided - June 12, 2025 wstdKt/V 2.5 No Reference Ran ge Provided - June 12, 2025 spKt/V ([place]augird[place] II) 1.57 No Reference Range Provided - June 12, 2025 Krt/V 0.00 No Reference Ran ge Provided - June 12, 2025 wstdKt/V without residual 2.5 No Reference Range Provided - June 12, 2025 wstdKt/V, residual 0.0 No Reference Range Provided - June 12, 2025 Krt/V 0.00 No Reference Ran ge Provided - June 22, 2025 spKt/V Gotch 1.71 No Reference Ran ge Provided - June 22, 2025 eKt/V ([place]) 1.50 No Reference Range Provided - June 22, 2025 spKt/V ([place]augird[place] II) 1.72 No Reference Range Provided - June 22, 2025 wstdKt/V 1.7 No Reference Ran ge Provided - June 22, 2025 wstdKt/V without residual 1.7 No Reference Range Provided - June 22, 2025 wstdKt/V, residual 0.0 No Reference Range Provided - June 22, 2025 Bone/Mineral Result Type Result Value Relevant Referen ce Range Interpretation Date Vitamin D 25 Hydroxy 10.4 ng/mL 30.0 - 100.0 ng/mL Low December 15, 2024 Magnesium 2.0 mg/dL 1.6 - 2.6 mg/dL - December 15, 2024 Magnesium 1.9 mg/dL 1.6 - 2.6 mg/dL - December 17, 2024 Vitamin D 25 Hydroxy 11.3 ng/mL 30.0 - 100.0 ng/mL Low December 17, 2024 Magnesium 2.2 mg/dL 1.6 - 2.6 mg/dL - March 18, 2025 PTH-Intact, Plasma 161 pg/mL 16 - 80 pg/mL High Mar Phosphorus 9.5 mg/dL 2.6 - 4.5 mg/dL High April 15, 2025 Ca x P Product 76 0 - 54 High April 15, Calcium, Total 8.0 mg/dL 8.4 - 10.2 mg/dL Low April 15, 2025 Corrected Ca x P Product 84 0 - 54 High April 15, 2025 Calcium, Total 7.8 mg/dL 8.4 - 10.2 mg/dL Low 2024 Corrected Ca x P Product 60 0 - 54 High June 01, 2025 Ca x P Product 58 0 - 54 High June 01, 2025 Phosphorus 6.7 mg/dL 2.6 - 4.5 mg/dL High May Calcium, Total 8.7 mg/dL 8.4 - 10.2 mg/dL - 2024 PTH-Intact, Plasma 143 pg/mL 16 - 80 pg/mL High Jun Calcium, Total 8.5 mg/dL 8.4 - 10.2 mg/dL - Jun Phosphorus 6.6 mg/dL 2.6 - 4.5 mg/dL High June 22, 2025 Ca x P Product 56 0 - 54 High June 22, 2025 Magnesium 3.0 mg/dL 1.6 - 2.6 mg/dL High June 22, 2025 Alkaline Phosphatase 76 U/L 40 - 129 U/L - Se pt2024 Corrected Ca x P Product 61 0 - 54 High June 22 25 Liver/Nutrition Result Type Result Value Relevant Referen ce Range Interpretation Date eNPCR 0.58 No Reference Ran ge Provided [...] Ran ge Provided - April 15, 2025 Glucose 177 mg/dL 70 - 100 mg/dL High May 27, 2025 Albumin (BCG) 3.5 g/dL 3.5 - 5.2 g/dL - May 27, 2025 SGPT (ALT) 22 U/L 7 - 52 U/L - May 27 SGOT (AST) 21 U/L 13 - 39 U/L - May 27 25 Amylase 35 U/L 28 - 100 U/L - May 27, 025 eNPCR 0.74 No Reference Ran ge Provided - May 29, 2025 Globulin (Calc) 3.0 g/dL 2.0 - 4.0 g/dL - 2024 A/G Ratio 1.2 1.0 - 2.0 - June 01 Total Protein 6.6 g/dL 6.0 - 8.5 g/dL - June 01, 2025 Albumin (BCG) 3.6 g/dL 3.5 - 5.2 g/dL - June 01, 2025 Glucose 104 mg/dL 70 - 100 mg/dL High June 01, 2025 eNPCR 1.12 No Reference Ran ge Provided - June 12, 2025 eNPCR 0.85 No Reference Ran ge Provided - June 22, 2025 Glucose 151 mg/dL 70 - 100 mg/dL High June 22, 2025 Globulin (Calc) 2.5 g/dL 2.0 - 4.0 g/dL - 2024 A/G Ratio 1.2 1.0 - 2.0 - June 22, 2025 Total Protein 5.6 g/dL 6.0 - 8.5 g/dL Low Septemb er 2024 Albumin (BCG) 3.1 g/dL 3.5 - 5.2 g/dL Low Septemb er 2024 Immunochemistry Result Type Result Value Relevant Reference Range Interpre tation Date HCV s/co ratio 0.32 0.00 - 0.79 - December 15, 2024 HCV s/co ratio 0.19 0.00 - 0.79 - December 17, 2024 Therapeutic Drugs Result Type Result Value Relevant Referen ce Range Interpretation Date Vancomycin, Trough 19.9 mcg/mL 10.0 - 20.0 mcg/mL - May 27, 2025 Trace Elements Result Type Result Value Relevant Reference Range Interpre tation Date Aluminum < 5 mcg/L 0 - 10 mcg/L - December 15 25 Aluminum 9 mcg/L 0 - 10 mcg/L - December 17 25 Aluminum < 5 mcg/L 0 - 10 mcg/L - June Infectious Diseases Result Type Result Value Relevant [...] Conventional Hemodialysis Data Element Value Order Date/Time June 24, 2025 Frequency 3X Week Treatment Days TueThuSat Dialyzer [id number] Optiflux Treatment Time (Total Minutes) 240 min Blood Flow Rate (mL/min) 550 mL/min Dialysate Flow Rate Autoflow 2.0 Estimated Dry Weight 100 kg Dialysate Concentrate 2.0 K, 2.5 Ca, 1.0 Mg, 100 Dextrose (G2251) Sodium (mEq/L) 138 mEq/L Bicarb Machine Setting (mEq/L) 34 mEq/L TRANSPLANT WAITLIST STATUS No Information on Transplant Waitlist Status ADVANCE DIRECTIVES Directive Description Ordered By Effective Date Resuscitation status Do Not Resuscitate (DNR) Angélica Ny Feb 02, 2025 DIALYSIS TREATMENTS Conventional Hemodialysis Date Pre-Treatment Vitals Post-Treatment Brooke ls Duration (hr) BFR (mL/min) Dialysate Dialyzer Dialysis Access Meds Admin [facility] 2024 Weight 104.70 kg Weight 100.50 kg 04:03:00 550 2.0 K, 2.5 Ca, 1.0 Mg, 100 Dextrose (G2251) 180nre Optifl ux Blood Pressure-sitting 137/77 mmHg Blood Pressure-sit ting 134/80 mmHg Blood Pressure-standing 144/88 mmHg Blood Pressure-st anding 141/78 mmHg Heart Rate 84 beats per minute Heart Rate 82 beats per minute Respiratory Rate 16 breaths per minute Respiratory Rate 16 breaths per minute Temperature 97.5 deg. F Temperature 96.5 deg. F June 22, 2025 Weight 104.10 kg Weight 100.00 kg 04:03:00 560 2.0 K, 2.5 Ca, 1.0 Mg, 100 Dextrose (G2251) 180nre Optiflux Hemodialysis-AV Fistula-Standard, Right Upper Arm, Brachial Artery to Cephalic Vein Access Placed on January 18, 2025 Acetaminophen; 650mg,Oral Diphenhydramine; 25mg,Intravenous - push Heparin Sodium (Porcine) 1,000 Units/mL Systemic; 7000units,Intravenous - push Ondansetron HCl (Zofran); 4mg,Intravenous - push Blood Pressure-sitting 159/103 mmHg Blood Pressure-sit ting 122/69 mmHg Blood Pressure-standing 141/105 mmHg Blood Pressure-st anding 107/55 mmHg Heart Rate 90 beats per minute Heart Rate 89 beats per minute Respiratory Rate 16 breaths per minute Respiratory Rate 16 breaths per minute Temperature 98.1 deg. F Temperature 97.6 deg. F June 24, 2025 Weight 100.40 kg Weight 97.10 kg 04:03:00 560 2.0 K, 2.5 Ca, 1.0 Mg, 100 Dextrose (G2251) 180nre Optiflux Hemodialysis-AV Fistula-Standard, Right Upper Arm, Brachial Artery to Cephalic Vein Access Placed on January 18, 2025 Acetaminophen; 650mg,Oral Diphenhydramine; 25mg,Intravenous - push Heparin Sodium (Porcine) 1,000 Units/mL Systemic; 7000units,Intravenous - push Blood Pressure-sitting 150/82 mmHg Blood Pressure-sit ting 168/80 mmHg Blood Pressure-standing 154/81 mmHg Blood Pressure-st anding 166/84 mmHg Heart Rate 95 beats per minute Heart Rate 99 beats per minute Respiratory Rate 18 breaths per minute Respiratory Rate 16 breaths per minute Temperature 97.5 deg. F Temperature 98.0 deg. F
--- OUTSIDE RECORDS SUMMARY | 2025-06-26 12:48 | XMS_ITS | Encounter Summary ---
Author Organization [facility] Address [address] [place] [address] Care Team Providers Care User Experience Researcher Name Role Phone Karlo Banks MD Primary Care Provider [phone] Encounter Details Date Type Department Care Team (Latest Contact Info) Description 06/04/2005 Outpatient Historical [facility] [address] [place] [address] Holland Bell MD [address] [place] [address] MED EXAM NEC-ADMIN PURP (Primary Dx) Social History Tobacco Use Types Packs/Day Years Used Date Smoking Tobacco: Never Assessed Sex and Gender Information Value Date Recorded Sex Assigned at Not on file 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
--- OUTSIDE RECORDS SUMMARY | 2025-06-26 12:48 | XMS_ITS | Clinical Summary ---
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 90 Tablet 025 Active insulin glargine (Lantus Solostar U-100 Insulin) 100 unit/mL pen syringeIndicatio ns:Type 1 diabetes mellitus with chronic kidney disease on chronic dialysis ([facility]) Inject 25 Units by subcutaneous injection 2 times daily. 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 60 Tablet Active atorvastatin (LIPITOR) 80 mg tabletIndication s:Type 1 diabetes mellitus with chronic kidney disease on chronic dialysis ([facility]) Take 1 Tablet (80 mg) by mouth daily. 30 Tablet Active amLODIPine (NORVASC) 10 mg tabletIndication s:Malignant hypertension Take 1 Tablet (10 mg) by mouth daily. 30 Tablet 025 Active amitriptyline (ELAVIL) 50 mg tabletIndication s:Paranoid schizophrenia ([facility]) Take 1 Tablet (50 mg) by mouth daily at bedtime. 30 Tablet Active varenicline tartrate (CHANTIX) 0.5 mg (11)- 1 mg (42) tablets STARTER dose packIndications: Tobacco dependence Take as directed on package. 53 Tablet Active Blood Pressure Monitor KitIndications:U ncontrolled hypertension To monitor blood pressure daily [facility] 1 Each Active Blood-Glucose Meter,Continuous (Dexcom G7 Parquetry Layer)Indicat ions:Type 1 diabetes mellitus with other kidney complication ([facility]) Use with sensor to monitor glucose continuously. 1 Each Active Blood-Glucose Sensor (Dexcom G7 Sensor) DeviceIndication s:Type 1 diabetes mellitus with other kidney complication ([facility]) To continuously monitor blood sugar. Change sensor [...] by mouth daily. 30 Tablet 5 Active Insulin [place], Disposable, (Ultra-Thin II Ins Pen [place]) 29 gauge x 1/2 NeedleIndication s:Type 1 diabetes mellitus with chronic kidney disease on chronic dialysis ([facility]) Use to inject insulin 4 times daily 100 Each 025 Active ARIPiprazole (ABILIFY) 5 mg tabletIndication s:Paranoid schizophrenia ([facility]) Take 1 tablet by mouth once daily 30 Tablet 5 025 Active cpap medical claims assistant CPAP auto-titrate 5-10 cwp with heated humidifier. [...] 8 hours. 300 Tablet 3 025 Active insulin lispro (HumaLOG,ADMELOG ) 100 unit/mL pen syringeIndicatio ns:Type 1 diabetes mellitus with chronic kidney disease on chronic dialysis ([facility]) INJECT 6 UNITS SUBCUTANEOUSLY 3 TIMES DAILY BEFORE MEALS PLUS A MEDIUM DOSE SLIDING SCALE. MAX UNITS PER DAY 60 UNITS 15 mL 1 Active oxyCODONE (ROXICODONE) 5 mg tabletIndication s:Osteoarthritis of spine with radiculopathy, lumbar region Take 1 Tablet (5 mg) by mouth every 8 hours as needed for Pain. Replaces tramadol Max Daily Amount: 15 mg 20 Tablet 025 Active cloNIDine (VJGMMMXGJ-FER-1 ) 0.2 mg/24 hr patchIndications :Malignant hypertension Apply 1 Patch to skin as directed every 7 days. 4 Patch 5 025 Active ARIPiprazole (Abilify) 5 mg tabletIndication s:Paranoid schizophrenia ([facility]) Take 1 Tablet (5 mg) by mouth daily. 30 Tablet 5 025 2024 Discontinued hydrALAZINE (APRESOLINE) 100 mg Tablet tablet Take 1 Tablet (100 mg) by mouth every 8 hours. 300 Tablet 3 025 2024 Discontinued(R eorder) insulin lispro (HumaLOG KwikPen Insulin) 100 unit/mL pen syringeIndicatio ns:Type 1 diabetes mellitus with chronic kidney disease on chronic dialysis (CMS/HCC) Inject 6 Units by subcutaneous injection 3 times daily with meals. Inject 6 units 3 times daily before meals plus a medium dose sliding scale. Max units per day 60 units. 15 mL 1 025 2024 Discontinued cloNIDine HCL (CATAPRES) 0.2 mg tabletIndication s:Malignant hypertension Take 1 Tablet (0.2 mg) by mouth 3 times daily. 90 Tablet 5 025 2024 Discontinued cefdinir (OMNICEF) 300 mg capsule Take 1 [...] for Pain. 20 Tablet 025 2024 Discontinued cloNIDine (JAIREDCBO-LFQ-1 ) 0.2 mg/24 hr patchIndications :Malignant hypertension Apply 1 Patch to skin as directed every 7 days. 4 Patch 5 025 2024 Discontinued(R eorder) oxyCODONE (ROXICODONE) 5 [...] Encounters Date Type Department Care Team Description 06/24/2025 Orders Only [address] [address] Olamide Mcclelland RN Malignant hypertension 06/23/[address] [phone] Duke Alarcon MD Malignant hypertension 06/22/2025 External Device Data STL ABSTRACTION Provider, Abstract 06/22/2025 External Device Data STL ABSTRACTION Provider, Abstract 06/22/[address] [address] Duke Alarcon MD Osteoarthritis of spine with radiculopathy, lumbar region 06/15/2025 9:18 AM CDT - 06/15/2025 11:59 PM CDT Hospital Encounter [facility] [address] [place] [phone] Discharge Disposition: Home or Self Care 06/15/2025 Orders Only [facility] [place] [address] [place] [address] Provider, Abstract 06/15/[address] [address] Duke Alarcon MD Osteoarthritis of spine with radiculopathy, lumbar region 06/15/[address] [phone] Duke Alarcon MD Type 1 diabetes mellitus with chronic kidney disease on chronic dialysis ([facility]) 06/11/2025 10:13 AM CDT - 06/11/2025 11:59 PM CDT Hospital Encounter [facility] [place] [address] [phone] Duke Alarcon MD Discharge Disposition: Home or Self Care 06/11/[address] [phone] Duke Alarcon MD Osteoarthritis of spine with radiculopathy, lumbar region 06/09/[address] [phone] Duke Alarcon MD Provider Call 06/07/2025 Results Follow-Up [address] [phone] Duke Alarcon MD [facility] 06/07/[address] [phone] Duke Alarcon MD Provider Call 06/07/[address] [phone] Duke Alarcon MD History of lumbar spinal fusion; Chronic midline low back pain with bilateral sciatica; Osteoarthritis of spine with radiculopathy, lumbar region 06/04/2025 [facility] [address] [facility] [address] [place] [address] Lawanda Mendoza, HEAD CHEF 06/04/[address] [phone] Duke Alarcon MD History of lumbar spinal fusion; Chronic midline low back pain with bilateral sciatica; Osteoarthritis of spine with radiculopathy, lumbar region 06/03/2025 Chart Note [facility] [address] [place] [address] Iraida Arreola, DNP 06/02/[address] [address] Duke Alarcon MD Results 06/02/2025 Orders Only [address] [address] Duke Alarcon MD LISET (obstructive sleep apnea) 06/02/2025 Orders Only [address] [phone] Duke Alarcon MD 05/31/2025 10:25 AM CDT - 05/31/2025 11:59 PM CDT Hospital Encounter [facility] [address] [phone] Duke Alarcon MD Discharge Disposition: Home or Self Care 05/31/2025 9:20 AM CDT Office Visit [address] [phone] Duke Alarcon MD Acute left ankle pain (Primary Dx); Rapidly progressive weakness; Left foot drop; Osteoarthritis of spine with radiculopathy, lumbar region; ESRD (end stage renal disease) ([facility]); Long-term use of high-risk medication; Malignant hypertension; Palpitations; Tremors of nervous system; Staphylococcus hominis sepsis ([facility]); Type 1 diabetes mellitus with chronic kidney disease on chronic dialysis ([facility]) 05/31/2025 Orders Only Initial Department [address] [facility] [address] VALLEJO: [place] [address] Provider, Historical 05/31/[address] [phone] Duke Alarcon MD Paranoid schizophrenia ([facility]/HCC) 05/26/2025 Telephone [facility] [address] [place] [address] Jose Manuel Bills MD IV ABX- coordinate care 05/25/2025 Refill [facility] [address] [phone] Duke Alarcon MD History of lumbar spinal fusion; Chronic midline low back pain with bilateral sciatica 05/24/2025 4:05 PM CDT - 05/24/2025 11:58 PM CDT Emergency [facility] Emergency Medicine [address] [phone] Carroll Angelo MD Hyperkalemia (Primary Dx); End stage kidney disease ([facility]); Dependence on renal dialysis; Generalized muscle weakness; Chronic low back pain, unspecified back pain laterality, unspecified whether sciatica present Discharge Disposition: Home or Self Care 05/24/2025 Telephone [facility] [address] [phone] Duke Alarcon MD Patient Communication 05/24/2025 Orders Only [facility] [address] [place] [address] Duke Alarcon MD Hospital discharge follow-up (Primary Dx) 05/24/2025 Abstract [facility] [address] [phone] Provider, Abstract 05/20/2025 External Device Data STL [...] Data STL ABSTRACTION Provider, Abstract 05/18/2025 Abstract [facility] [address] [address] Provider, Abstract 05/17/2025 Orders Only [facility] [address] [place] [address] Provider, Abstract 05/17/[address] [address] Duke Alarcon MD 05/16/2025 4:28 PM CDT - 05/22/2025 9:28 AM CDT Hospital Encounter [facility] 4A Cardiac [address] [place] [address] Travis Conn DO [place], MD Melanie Porter Melissa Mae, MD Hypertensive emergency Discharge Disposition: Home or Self Care 05/16/2025 4:25 PM CDT - 05/16/2025 11:59 PM CDT Hospital Encounter [facility] [place] [address] [place] [address] [facility] 05/16/2025 12:28 PM CDT - 05/16/2025 2:46 PM CDT Emergency [facility] Emergency Medicine [address] [address] Fili Shah DO NSTEMI (non-ST elevated myocardial infarction) (CMS/HCC) (Primary Dx); Hypertensive urgency Discharge Disposition: [facility] 05/16/2025 - 05/16/2025 11:59 PM CDT Hospital Encounter [facility] [place] [id number] [place] [address] [facility] Discharge Disposition: Home or Self Care 05/16/2025 Travel 05/15/[address] [phone] Duke Alarcon MD History of lumbar spinal fusion; Chronic midline low back pain with bilateral sciatica 05/10/[address] [address] Duke Alarcon MD 05/09/[address] [address] Duke Alarcon MD History of lumbar spinal fusion; Chronic midline low back pain with bilateral sciatica 05/07/[address] [address] Duke Alarcon MD Type 1 diabetes mellitus with other kidney complication ([facility]/HCC); History of lumbar spinal fusion; Chronic midline low back pain with bilateral sciatica 05/05/[address] [address] Duke Alarcon MD Needs Orders Written 05/05/[address] [phone] Deysi Vargas FNP Type 1 diabetes mellitus with other kidney complication ([facility]); Uncontrolled hypertension 05/05/[address] [phone] Duke Alarcon MD 05/04/[address] [address] Duke Alarcon MD Needs Orders Written 05/04/[address] [address] Duke Alarcon MD Needs Orders Written 05/04/[address] [address] Duke Alarcon MD Results 05/03/2025 9:20 AM CDT Office Visit [address] [phone] Duke Alarcon MD ESRD (end stage renal disease) ([facility]/HCC) (Primary Dx); History of lumbar spinal fusion; Type 1 diabetes mellitus with chronic kidney disease on chronic dialysis ([facility]); Chronic combined systolic (congestive) and diastolic (congestive) heart failure (CMS/HCC); LISET (obstructive sleep apnea); Chronic midline low back pain with bilateral sciatica; Malignant hypertension; Paranoid schizophrenia (CMS/HCC); Tobacco dependence 04/28/2025 External Device Data STL ABSTRACTION Provider, Abstract 04/26/2025 5:25 PM CDT - 04/27/2025 3:15 PM CDT Hospital Encounter [facility] [address] [place] [phone] Cruz Dinh DO Sundaram, Vignesh, MD [place], MD Maria Teresa Spencer Mohamed Hamdy Ahmed Mohamed, MD Hypertensive emergency Discharge Disposition: Home or Self Care 04/26/2025 10:33 AM CDT - 04/26/2025 3:26 PM CDT Emergency [facility] Emergency Medicine [address] [phone] Kelsea Dailey MD Hypertensive emergency (Primary Dx) Discharge Disposition: Acute Care Hospital 04/26/2025 - 04/26/2025 11:59 PM CDT Hospital Encounter [facility] [place] [address] [place] [phone] Kelsea Dailey MD Ambulance, [facility] Discharge Disposition: [facility] 04/26/2025 Travel 04/23/2025 9:05 AM CDT - 04/23/2025 11:59 PM CDT Hospital Encounter [facility] Inter[facility] [address] [place] [phone] Angélica Ny MD McCarter, Bradley S Discharge Disposition: Home or Self Care 04/23/2025 Telephone [facility] [place] [address] [phone] Kim Servin MD Information (Spoke with pt regarding rescheduled appt on 05/26/25 at 10:20. Pt is good with this day and time. TA) 04/20/2025 External Device Data STL ABSTRACTION Provider, Abstract 04/15/2025 9:40 AM CDT Office Visit [facility] [address] [phone] Duke Alarcon MD ERRONEOUS ENCOUNTER--DISREGARD (Primary Dx) 04/15/2025 Telephone [facility] [address] [phone] Duke Alarcon MD Requesting Sooner Appointment; Wants Dr. Alarcon 04/15/2025 Telephone [facility] [address] [phone] Duke Alarcon MD Appointment Notification 04/13/2025 External Device Data STL ABSTRACTION Provider, Abstract 04/11/2025 4:33 PM CDT - 04/11/2025 11:03 PM CDT Emergency [facility] Emergency [facility] [address] [facility] [address] [place] [phone] Kelsea Dailey MD Starnes, Kenneth Fondren, MD Hypertensive emergency (Primary Dx); Other hypervolemia; Need for acute hemodialysis Discharge Disposition: Acute Care Hospital 04/11/2025 12:15 AM CDT - 04/11/2025 11:59 PM CDT Hospital Encounter [facility] [address] [phone] Maximilian Beckham MD Ambulance, [facility] Discharge Disposition: Short term general hospital 04/11/2025 Travel 04/06/2025 External Device Data STL ABSTRACTION Provider, Abstract 03/31/2025 1:20 PM CDT Office Visit [facility] [address] [place] [phone] Prince Perez MD Goodwin, Jessica Lindiwe, LAWANDA Cardiomyopathy, unspecified type (CMS/HCC) (Primary Dx) from Last 3 Months Immunizations Immunization Administration [...] on file Legal Sex 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 Medicine [address] [address] Duke Alarcon MD [address] [address] 07/07/2025 11:10 AM CDT Office Visit [facility] [place] [address] [place] [address] Kim Servin MD [address] [place] [address] 08/09/2025 1:[address] [facility] [address] [place] [address] Lawanda Mendoza, HEAD CHEF [address] [facility] [address] [place] [address] 09/27/2025 9:30 AM PAPER BAG PRESS OPERATOR Office Visit [facility] Shareholder [facility] [address] [place] [address] Constantin Bales, OD [address] [place] [address] Health Maintenance Due Date Last Done Comments DTAP/TDAP/TD VACCINES (1 - Tdap) 2009 Traditional Medicare (ACO) A nnual Wellness Visit 2009 HEPATITIS B VACCINES (1 of 3 - Risk Dialysis 4-dose series) 2010 DIABETES MICROALBUMIN ANNUAL SCREEN 07/11/2016 07/11/2015 HPV VACCINES (1 - 3-dose SCD M series) 2017 Medicare Advantage (DC) Preventative Visit/Annual Wellness Visit 10/14/2024 INFLUENZA VACCINE [...] 08/07/2024, 12/28/2023 Medical Devices Explanted Type Area Building Construction Estimator Device Identifier Shelf Expiration Date Model / Serial / Lot Cath Dialysis Glidepath 14.5fr 23cm [facility] [id number] - [id number] Implanted:Qty: 1 on 12/04/2024 by Constantin Crum MD at [facility] Explanted:Qty: 1 on 04/23/2025 by Reji Sethi Catheter Right: Chest BARD TRICE VASC [id number] 03/13/2026 [id number] / / [id number] Procedures Procedure Name Priority Date/Time Associated Diagnosis Comments COMPREHENSIVE METABOLIC PANEL Routine 06/15/2025 2:09 PM CDT HOLTER MONITOR Routine 06/11/2025 11:00 AM CDT Palpitations XR ANKLE 3+ VW LEFT Routine 05/31/2025 [...] TROPONIN 6 HR, 5TH GEN Timed Study 5 11:51 PM CDT BLOOD CULTURE MRSA/MSSA PCR [...] Timed Study 8:16 PM CDT TROPONIN BASELINE, 5TH GEN Stat 05/16/2025 6:12 PM CDT EKG 12-LEAD Stat 05/16/2025 4:45 PM CDT XR CHEST PA OR AP 1 VW Stat 1:14 PM CDT MAGNESIUM LEVEL Stat 05/16/2025 1:03 PM CDT LIPASE Stat 05/16/2025 1:03 PM CDT BRAIN NATRIURETIC PEPTIDE, BNP OR PROBNP Stat 05/16/2025 1:03 PM CDT TROPONIN BASELINE, 5TH GEN Stat 05/16/2025 1:03 PM CDT BASIC [...] W/REFLEX MICROSCOPIC Stat 04/11/2025 4:42 PM CDT HEMOGLOBIN A1C Routine 11/10/2024 2:22 PM PAPER BAG PRESS OPERATOR Type 1 diabetes mellitus with diabetic chronic kidney disease, unspecified CKD stage (CMS/HCC) CT ABDOMEN PELVIS WO CONTRAST Stat 08/07/2024 12:39 PM CDT LIPID PANEL Routine 07/14/2024 4:40 AM CDT MICROALBUMIN/CREATININ E RATIO, RANDOM UR Routine 07/11/2015 10:53 PM CDT from Last 3 Months or Most Recently Relevant to Health Maintenance Results * COMPREHENSIVE METABOLIC PANEL (06/15/2025 2:09 PM CDT) Only the most recent of5 resultswithin the time period is included. Blood us Abstract Provider CHEMISTRY ORDERABLES Final Res ult * HOLTER MONITOR (06/11/2025 11:00 AM CDT) Narrative Jailyn Reddyestee Beckman - 06/11/2025 11:00 AM CDT Delia Reddy Karuna 06/17/2025 12:21 PM Order Number:[id number] Diagnosis:R00.2 - Palpitations CSN:[id number] Patient Name: Hunter San Referring Provider:Duke Alarcon MD Patient monitored for 2d 1h, analyzable time was 2d 1h starting on 06/11/2025 10:43 am. Primary rhythm was Sinus Rhythm. Average heart rate was 95 bpm, Minimum heart rate was 81 bpm on Day :52:24pm, Max heart rate was 126 bpm on Day :48:03 pm SVE(s): [place] was < 0.01 %, 23 total SVE(s) PVC(s): [place] was < 0.01 %, 2 total PVC(s), 1 disparate morphologies Patient recorded 10 event(s) during the monitoring period. Symptoms noted. Episodes correlated wtih sinus rhythm or sinus tachycardia. Summary: 1. Symptoms do not correlate with arrhythmia Electronically Signed On 06-17-2025 7:58:27 CDT by Herb Taveras Duke Alarcon MD CARDIAC SERVICES ORDERABL ES Final Result * XR ANKLE 3+ VW LEFT (05/31/2025 [...] [facility] (05/31/2025 10:01 AM CDT) AMPHETAMINES, ORAL FLUID NEGATIVE <10 ng/mL [facility] [place] [facility] BARBITURATES, ORAL FLUID NEGATIVE <10 ng/mL [facility] [facility] BENZODIAZEPINES, ORAL FLUID NEGATIVE <0.50 ng/mL [facility] [facility] BUPRENORPHINE, ORAL FLUID NEGATIVE <0.10 ng/mL [facility] [facility] COCAINE, ORAL FLUID NEGATIVE <5.0 ng/mL [facility] FENTANYL, ORAL FLUID NEGATIVE <0.10 ng/mL [facility] [facility] HEROINMETABOLITE, ORAL FLUID NEGATIVE <1.0 ng/mL [facility] [facility] [facility] MARIJUANA, ORAL FLUID NEGATIVE <2.5 ng/mL [facility] [facility] MDMA, ORAL FLUID NEGATIVE <10 ng/mL [facility] [facility] MEPROBAMATE, ORAL FLUID NEGATIVE <2.5 ng/mL [facility] [place] [facility] METHADONE, ORAL FLUID NEGATIVE <5.0 ng/mL [facility] [facility] NICOTINEMETABOLITE, ORAL FLUID NEGATIVE <5.0 ng/mL [facility] OPIATES, ORAL FLUID NEGATIVE <2.5 ng/mL [facility] PHENCYCLIDINE, ORAL FLUID NEGATIVE <10 ng/mL [facility] TAPENTADOL, ORAL FLUID NEGATIVE <5.0 ng/mL [facility] TRAMADOL, ORAL FLUID POSITIVE(A) <5.0 ng/mL [facility] TRAMADOL CONFIRMATION, ORAL FLUID 198.1(H) <5.0 ng/mL [facility] ZOLPIDEM, ORAL FLUID NEGATIVE <5.0 ng/mL [facility] Comment: For additional information, please refer to http://education.Autowatts/faq/IWG913 (This link is being provided for informational/ educational purposes only.) This drug testing is for medical treatment only. Analysis was performed as non-forensic testing and these results should be used only by healthcare providers to render diagnosis or treatment, or to monitor progress of medical conditions. For assistance with interpreting these drug results, please contact a [employer] Toxicology Specialist: [phone] ( ), M-F, 8am-6pm EST. These tests were developed and their analytical performance characteristics have been determined by [employer]. They have not been cleared or approved by the FDA. These assays have been validated pursuant to the CLIA regulations and are used for clinical purposes. ALCOHOL METABOLITE NEGATIVE <25 ng/mL [employer] [facility] Comment: For additional information, please refer to http://education.ComplyMD/faq/OVA857 (This link is being provided for informational/ educational purposes only.) This drug testing is for medical treatment only. Analysis was performed as non-forensic testing and these results should be used only by healthcare providers to render diagnosis or treatment, or to monitor progress of medical conditions. For assistance with interpreting these drug results, please contact a [employer] Toxicology Specialist: [phone] ( ), M-F, 8am-6pm EST. These tests were developed and their analytical performance characteristics have been determined by [employer]. They have not been cleared or approved by the FDA. These assays have been validated pursuant to the CLIA regulations and are used for clinical purposes. Test Performed at: [employer] [address] [place] Ricardo Purcell M.D.,PhD 05/31/2025 10:0 1 AM CDT 06/01/2025 4:00 AM CDT Narrative [facility] - 06/06/2025 6:13 PM CDT This unsolicited order was created by [employer]. The [employer]ip[employer] Name and Code for this order is: CP [id number] [[id number]] Duke Alarcon MD CHEMISTRY ORDERABLES Oliva l Result [facility] [phone] [facility] Evolita/G2 [facility] [address] [place] * POLYSOMNOGRAPHY 4 OR MORE PARAMETERS WITH CPAP (05/31/2025) Duke Alarcon MD SLEEP CENTER ORDERABLES F inal Result * MAGNESIUM LEVEL (05/24/2025 9:58 PM CDT) Only the most recent of4 resultswithin the time period is included. Pathologist [facility] MAGNESIUM 2.6 1.6 - 2.6 mg/dL 05/24/2025 10:23 PM [facility] Blood BLOOD SPECIMEN / Unknown Collection / Unknown 05/24/2025 9:58 PM CDT 05/24/2025 10:04 PM CDT us Balwinder Y Briones DO CHEMISTRY ORDERABLES Final Resul t [facility] CLIA # [id number] [address] [place] [address] [id number] * (ABNORMAL) BASIC METABOLIC PANEL (05/24/2025 9:58 PM CDT) Only the most recent of5 resultswithin the time period is included. [facility] SODIUM 130(L) 136 - 145 mmol/L 05/24/2025 10:23 PM [facility] POTASSIUM 6.6(HH) 3.5 - 5.1 mmol/L 05/24/2025 10:23 PM [facility] CHLORIDE 92(L) 98 - 107 mmol/L 05/24/2025 10:23 PM [facility] CO2 21(L) 22 - 29 mmol/L 05/24/2025 10:23 PM [facility] CALCIUM 9.3 8.6 - 10.0 mg/dL 05/24/2025 10:23 PM [facility] BUN 79(H) 6 - 20 mg/dL 05/24/2025 10:23 PM [facility] CREATININE 10.00(H) 0.67 - 1.17 mg/dL 05/24/2025 10:23 PM [facility] GLUCOSE 78 74 - 99 mg/dL 05/24/2025 10:23 PM [facility] GFR 6(L) >=60 mL/min/1.7 3 sq meter 05/24/2025 10:23 PM CDT [facility] Comment:eGFR calculated with 2020 CKD-EPI equation. Vegetarian diet, extremely high or low muscle mass, and may affect results. Cystatin C with Glomerular Filtration Rate is a suitable alternative for these patients. ANION GAP 17 5 - 20 mmol/L 05/24/2025 10:23 PM CDT [facility] Blood BLOOD SPECIMEN / Unknown Collection / Unknown 05/24/2025 9:58 PM CDT 05/24/2025 10:04 PM CDT us Balwinder Briones DO CHEMISTRY ORDERABLES Final Resul t [facility] CLIA # [id number] [address] [place] [address] [id number] * POC GLUCOSE (05/24/2025 9:53 PM CDT) Only the most recent of29 resultswithin the time period is included. GLUCOSE POC 84 74 - 99 mg/dL 05/24/2025 9:53 PM CDT [facility] SPECIMEN SOURCE, GLUCOSE POC Whole Blood 05/24/2025 9:53 PM CDT [facility] Blood, whole 05/24/2025 9:53 PM CDT 05/24/2025 10:00 PM CDT us Carroll Angelo MD POINT OF CARE TESTING Fi nal Result [facility] CLIA # [id number] [address] [place] [address] [id number] * EKG 12 lead (05/24/2025 6:02 PM CDT) Only the most recent of5 resultswithin the time period is included. Narrative Balwinder Briones DO - 05/24/2025 6:02 PM CDT Balwinder Briones DO 05/25/2025 6:26 AM EKG 12 lead Date/Time: 05/24/2025 6:02 PM Performed by: Balwinder Briones DO Authorized by: Carroll Angelo MD ECG interpreted by ED Physician in the absence of a installation specialist: yes Rate: ECG rate: 85 ECG rate assessment: age appropriate Rhythm: Rhythm Origin: sinus Rhythm morphology: narrow [place]: QRS axis: Normal Blocks: AV: 1st Hypertrophy: : Possible left atrial enlargement. QRSTT: R wave transition: Late Comments: No specific changes compared to previous EKGs. us Carroll Angelo MD ECG ORDERABLES Final Re sult * (ABNORMAL) CBC WITH DIFFERENTIAL (05/24/2025 4:55 PM CDT) Only the most recent of9 resultswithin the time period is included. WBC 8.1 4.2 - 9.1 K/uL 05/24/2025 5:10 PM [facility] RBC 2.47(L) 4.63 - 6.08 M/uL 05/24/2025 5:10 PM [facility] HEMOGLOBIN 7.8(L) 13.7 - 17.5 g/dL 05/24/2025 5:10 PM [facility] HEMATOCRIT 23.0(L) 40.1 - 51.0 % 05/24/2025 5:10 PM [facility] MCV 93.1(H) 79.0 - 92.2 fL 05/24/2025 5:10 PM [facility] MCH 31.6 25.7 - 32.2 pg 05/24/2025 5:10 PM [facility] MCHC 33.9 32.3 - 36.5 g/dL 05/24/2025 5:10 PM [facility] RDW 14.7(H) 11.0 - 14.5 % 05/24/2025 5:10 PM [facility] RDW-STDEV 50.8 36.9 - 56.9 fL 05/24/2025 5:10 PM [facility] PLATELETS 243 130 - 400 K/uL 05/24/2025 5:10 PM CDT [facility] MPV 11.0 10.0 - 14.8 fL 05/24/2025 5:10 PM T [facility] NEUTROPHILS 72(H) 34 - 68 % 05/24/2025 5:10 PM [facility] LYMPHOCYTES 16(L) 22 - 53 % 05/24/2025 5:10 PM T [facility] MONOCYTES 8 5 - 12 % 05/24/2025 5:10 PM CDT [facility] EOSINOPHILS 2 1 - 7 % 05/24/2025 5:10 PM CDT [facility] BASOPHILS 1 0 - 1 % 05/24/2025 5:10 PM [facility] IMMATURE GRANULOCYTES 0 % 05/24/2025 5:10 PM [facility] NEUTROPHIL ABSOLUTE 5.78(H) 1.78 - 5.38 K/uL 05/24/2025 5:10 PM [facility] LYMPHOCYTE ABSOLUTE 1.30 1.20 - 3.40 K/uL 05/24/2025 5:10 PM CDT [facility] MONOCYTE ABSOLUTE 0.66 0.30 - 0.82 K/uL 05/24/2025 5:10 PM [facility] EOSINOPHIL ABSOLUTE 0.19 0.04 - 0.54 K/uL 05/24/2025 5:10 PM [facility] BASOPHILS ABSOLUTE 0.09(H) 0.01 - 0.08 K/uL 05/24/2025 5:10 PM [facility] IMMATURE GRANULOCYTES ABSOLUTE 0.03 K/uL 05/24/2025 5:10 PM [facility] Blood BLOOD SPECIMEN / Unknown Venipuncture / Unknown 05/24/2025 4:55 PM CDT 05/24/2025 5:07 PM CDT us Carroll Angelo MD HEMATOLOGY ORDERABLES Fi nal Result [facility] CLIA # [id number] [address] [place] [address] * XR LUMBAR SPINE 2 OR 3 [...] of3 resultswithin the time period is included. Provider Scanning ECG ORDERABLES Final Result * (ABNORMAL) CBC WITHOUT DIFFERENTIAL (05/22/2025 6:55 AM CDT) Only the most recent of2 resultswithin the time period is included. [facility] WBC 9.0 4.5 - 11.0 K/uL 05/22/2025 7:04 AM [facility] RBC 2.41(L) 4.60 - 6.20 M/uL 05/22/2025 7:04 AM [facility] HEMOGLOBIN 7.4(L) 14.0 - 18.0 g/dL 05/22/2025 7:04 AM [facility] HEMATOCRIT 23.1(L) 41.0 - 53.0 % 05/22/2025 7:04 AM [facility] MCV 95.9 84.0 - 103.0 fL 05/22/2025 7:04 AM [facility] MCH 30.7 27.0 - 34.0 pg 05/22/2025 7:04 AM [facility] MCHC 32.0 30.0 - 35.0 g/dL 05/22/2025 7:04 AM [facility] PLATELETS 200 140 - 440 K/uL 05/22/2025 7:04 AM [facility] MPV 10.9 8.9 - 12.8 fL 05/22/2025 7:04 AM [facility] RDW 15.3(H) 11.0 - 14.5 % 05/22/2025 7:04 AM [facility] RDW-STDEV 54.0 37.0 - 54.0 fL 05/22/2025 7:04 AM [facility] Blood Venipuncture / Unknown 05/22/2025 6:55 AM CDT 05/22/2025 7:00 AM T us Rick Navarro MD HEMATOLOGY ORDERABLES Fi nal Result [facility] CLIA # [id number] [facility] [address] [address] [place] [address] * VANCOMYCIN LEVEL RANDOM (05/22/2025 6:55 AM CDT) Only the most recent of3 resultswithin the time period is included. [facility] VANCOMYCIN, RANDOM 15.2 5.0 - 50.0 ug/mL 05/22/2025 7:50 AM CDT [facility] Blood Venipuncture / Unknown 05/22/2025 6:55 AM CDT 05/22/2025 7:00 AM CDT Narrative [facility] - 05/22/2025 7:50 AM CDT Vancomycin Therapeutic Ranges: Vancomycin Trough: 10 - 20 mcg/mL Vancomycin Peak: 25 - 50 mcg/mL us Rick Navarro MD CHEMISTRY ORDERABLES Fin al Result [facility] # [id number] [address] [place] [address] * (ABNORMAL) RENAL FUNCTION PANEL (05/22/2025 6:55 AM CDT) Only the most recent of5 resultswithin the time period is included. [facility] SODIUM 134(L) 136 - 145 mmol/L 05/22/2025 7:59 AM T [facility] POTASSIUM 6.2(HH) 3.5 - 5.1 mmol/L 05/22/2025 7:59 AM T [facility] CHLORIDE 99 98 - 107 mmol/L 05/22/2025 7:59 AM T [facility] CO2 22 22 - 29 mmol/L 05/22/2025 7:59 AM T [facility] CALCIUM 8.7 8.6 - 10.0 mg/dL 05/22/2025 7:59 AM T [facility] BUN 54(H) 6 - 20 mg/dL 05/22/2025 7:59 AM T [facility] CREATININE 7.04(H) 0.67 - 1.17 mg/dL 05/22/2025 7:59 AM CDT [facility] GLUCOSE 132(H) 74 - 99 mg/dL 05/22/2025 7:59 AM CDT [facility] ALBUMIN 3.2(L) 3.5 - 5.2 g/dL 05/22/2025 7:59 AM CDT [facility] PHOSPHORUS 6.6(H) 2.5 - 4.5 mg/dL 05/22/2025 7:59 AM CDT [facility] GFR 10(L) >=60 mL/min/1. 73 sq meter 05/22/2025 7:59 AM CDT [facility] Comment:eGFR calculated with 2020 CKD-EPI equation. Vegetarian diet, extremely high or low muscle mass, and may affect results. Cystatin C with Glomerular Filtration Rate is a suitable alternative for these patients. ANION GAP 13 9 - 20 mmol/L 05/22/2025 7:59 AM CDT [facility] Blood Venipuncture / Unknown 05/22/2025 6:55 AM CDT 05/22/2025 7:00 AM CDT Uli Catherine MD CHEMISTRY ORDERABLES Final Result [facility] CLIA # [id number] [address] [place] [address] * (ABNORMAL) HEMOGLOBIN AND HEMATOCRIT (05/21/2025 11:21 AM CDT) [facility] HEMOGLOBIN 8.2(L) 14.0 - 18.0 g/dL 05/21/2025 11:33 AM CDT [facility] HEMATOCRIT 24.4(L) 41.0 - 53.0 % 05/21/2025 11:33 AM CDT [facility] Blood Venipuncture / Unknown 05/21/2025 11:21 AM CDT 05/21/2025 11:26 AM CDT Rick Navarro MD HEMATOLOGY ORDERABLES Fi nal Result [facility] CLIA # [id number] [address] [facility] [place] [address] * TRANSFUSE RED BLOOD CELLS (05/21/2025 10:16 AM CDT) Marcella Jung [facility] BLOOD TRANSFUSION ORDER OBEY Final Result * TYPE AND SCREEN (05/21/2025 5:08 AM CDT) ABO GROUP O 05/21/2025 7:23 AM CDT [facility] RH (D) TYPE Positive 05/21/2025 7:23 AM CDT [facility] ANTIBODY SCREEN Negative 05/21/2025 7:23 AM CDT [facility] Blood Venipuncture / Unknown 05/21/2025 5:08 AM CDT 05/21/2025 5:15 AM CDT Marcella Jung [facility] BLOOD BANK ORDERABLES E dited Result - Final [facility] CLIA#[id number] [facility] [place], [place] [address] [place] [address] * PREPARE RED BLOOD CELLS (05/21/2025 4:32 AM CDT) COMPONENT TYPE [id number] [facility] COMPONENT IDENTIFICATION [id number] [facility] UNIT ABO O [facility] UNIT RH POS [facility] CROSSMATCH Compatible [facility] COMPONENT STATUS Transfused [facility] [place] COMPONENT EXPIRATION DATE/TIME [id number] [facility] COMPONENT CODING SYSTEM 5100 [facility] VOLUME, BLOOD PRODUCT 350 [facility] Other, specify 05/21/2025 4: 32 AM CDT Marcella Jung [facility] TRANSFUSION ORDERAB LES Edited Result - Final [facility] CLIA#[id number] [address] [place] [address], * HEMODIALYSIS (05/20/2025 10:10 AM CDT) Narrative Angélica Ny MD - 05/20/2025 10:10 AM CDT Angélica Ny MD 05/20/2025 10:14 AM [facility] - Procedure Note Primary Computer Lab Aide: Dr. Angélica Ny PROCEDURE: Intermittent Hemodialysis INDICATION: [...] add Veltessa as outpatient. Angélica Ny MD [facility] 05/20/25, 10:11 AM us Juice Bashir NP DIALYSIS ORDERABLES Final Re sult * ECHO TRANSESOPHAGEAL W DOPPLER AND COLOR FLOW (05/19/2025 12:15 PM CDT) EJECTION FRACTION 45 INTERFACE SYSTEM 05/19/2025 8:54 AM CDT Narrative INTERFACE SYSTEM - 05/19/2025 9:[address] [facility] Echocardiography Laboratory [facility] [place] [address] Transesophageal Echocardiography Patient: Hunter San Study ID: WINIFRED Lino Gender: Anjelica : 1990 Age: 34 Room: [facility] Study 05/19/2025 Pt Inpatient Date: Status: Study 08:54:49 AM CSN #: [id number] Time: Ordering:Faye Sal Chief Digital Media Officer: Betzy Nogueira [facility] Indications and History: Endocarditis Acute/subacute bacterial. Risk [...] septum: Agitated saline contrast study shows no bheep-ma-srub shunt. - Mitral valve: There is mild [...] transesophageal probe was inserted by the attending installation specialist without difficulty. Image quality was adequate. [...] Doppler. Agitated saline contrast study shows no czugs-zt-blga shunt. AORTIC VALVE: The valve is trileaflet. [...] (H) ronny values outside specified reference range. [facility] are accredited with the [facility] Accreditation Commission - Echocardiography. Prepared and Electronically Authenticated Hayden Nava MD Confirmed 05/19/2025 09:57 Procedure Note Hayden Nava MD - 05/19/2025 [facility] Echocardiography Laboratory [address] [place] [address] Transesophageal Echocardiography Patient: Hunter San Study ID: HUNTER Lino Gender: Anjelica : 1990 Age: 34 Room: [facility] Study 05/19/2025 Pt Inpatient Date: Status: Study 08:54:49 AM [facility] #: [id number] Time: Ordering:Faye Sal Chief Digital Media Officer: Betzy Nogueira [facility] Indications and History: Endocarditis Acute/subacute bacterial.Risk factors: [...] septum: Agitated saline contrast study shows no arjxh-li-hkbnjjxjk. - Mitral valve: There is mild regurgitation. [...] transesophageal probe was inserted by the attending installation specialist without difficulty. Image quality was adequate. [...] Doppler. Agitated saline contrast study shows no mzcst-bg-oztw shunt. AORTIC VALVE: The valve is trileaflet. [...] (H) ronny values outside specified reference range. [facility] are accredited with theIntersocietal Accreditation Commission - Echocardiography. Prepared and Electronically Authenticated Hayden Nava MD Confirmed 05/19/2025 09:57 us Faye Sal HEAD CHEF US ORDERABLES Final Resu lt INTERFACE SYSTEM Refer to clinic/hospital department * (ABNORMAL) PHOSPHORUS (05/19/2025 5:26 AM CDT) PHOSPHORUS 5.5(H) 2.5 - 4.5 mg/dL 05/19/2025 7:06 AM CDT [facility] Blood Venipuncture / Unknown 05/19/2025 5:26 AM CDT 05/19/2025 5:31 AM CDT us Uli Catherine MD CHEMISTRY ORDERABLES Final Result Performing Organization Address [facility] de Phone Number [facility] CLIA # [id number] [address] [address] [place] [address] * BLOOD CULTURE (05/18/2025 1:44 PM CDT) Only the most recent of4 resultswithin the time period is included. Pathologist [facility] BLOOD CULTURE No growth 05/23/2025 3:36 PM CDT [facility] Blood (Peripheral) Venipuncture / Unknown 05/18/2025 1:44 PM CDT 05/18/2025 2:44 PM CDT us Rick Navarro MD MICROBIOLOGY - GENERAL O RDERABLES Final Result Performing Organization Address [facility] Co de Phone Number [facility] CLIA # [id number] [id number] [place] [address] * HEMODIALYSIS (05/17/2025 12:20 PM CDT) Narrative [facility] - 05/17/2025 12:20 PM CDT Tk Mcclelland MD 05/17/2025 1:01 PM [facility] - Procedure Note Primary Computer Lab Aide: Dr. Angélica Ny PROCEDURE: Intermittent Hemodialysis INDICATION: [...] run today then resume tomorrow per his TTS outpatient schedule. Will see on HD days while inpatient. Hypertension: improved BP 130s/70. Ultrafiltration 4L on hemodialysis today. Hyponatremia: with chronic kidney disease and volume excess. Will improve with ultrafiltration Hyperkalemia: running on 2k bath. No further treatment indicated. Juice Bashir NP [facility] 05/17/25, 12:21 PM Juice Bashir NP DIALYSIS ORDERABLES Final Re sult [facility] CLIA # [id number] [address] [place] [address] [place], [place] [id number] * SPUTUM CULTURE WITH GRAM STAIN (05/17/2025 12:06 AM CDT) CULTURE Suggest appropriate recollection and resubmit. 05/17/2025 1:40 AM CDT [facility] GRAM STAIN Smear contains >/=10 squamous epithelial cells per low power field 05/17/2025 1:40 AM CDT [facility] Comment:Smear contains >/=10 squamous epithelial cells per low power field suggestive of a poor quality specimen, culture not performed. Recollect if clinically indicated. Sputum COUGHED SPUTUM SPECIMEN / Unknown Collection / Unknown 05/17/2025 12:06 AM CDT 05/17/2025 12:12 AM CDT Narrative [facility] - 05/17/2025 1:40 AM CDT Unacceptable quality for culture. Contacted Олег Carter (ED) by RICK BOSTON on 05/17/2025 at 1:37 AM with Secure Chat acknowledgement. Uli Catherine MD MICROBIOLOGY - GENERAL ORD ERABLES Final Result [facility] CLIA # [id number] [facility] [address] [place] [address] * BLOOD CULTURE MRSA/MSSA PCR PANEL (05/16/2025 11:51 PM CDT) Pathologist [facility] MRSA/MSSA PCR No Staph aureus detected No Staph aureus detected 05/17/2025 7:31 PM CDT [facility] Blood (Peripheral) Venipuncture / Unknown 05/16/2025 11:51 PM CDT 05/17/2025 12:03 AM CDT Narrative [facility] - 05/17/2025 7:31 PM CDT This test is intended for the detection of Staphylococcus aureus (SA) and methicillin-resistant Staphylococcus aureus (MRSA) DNA directly from positive blood cultures. This test was developed and its performance characteristics determined by [facility]. It has not been cleared by [...] perform high complexity clinical laboratory testing. us Travis Conn DO MICROBIOLOGY - GENERAL ORDERABLE S Final Result Performing Organization Address [facility]/ZIP Co de Phone Number [facility] CLIA # [id number] [address] [address] [place] [address] * (ABNORMAL) TROPONIN 6 HR, 5TH GEN (05/16/2025 11:51 PM CDT) Only the most recent of2 resultswithin the time period is included. TROPONIN T, 6 HR 5TH GEN 273(HH) <=15 ng/L 05/17/2025 12:55 AM CDT [facility] DELTA 6HR TROPONIN T % 8 See Interp. % 05/17/2025 12:55 AM CDT [facility] Blood Venipuncture / Unknown 05/16/2025 11:51 PM CDT 05/17/2025 12:08 AM CDT Narrative [facility] - 05/17/2025 12:55 AM CDT Troponin elevated. Delta not changing. us Travis Conn DO CHEMISTRY ORDERABLES Final Resul t Performing Organization Address [facility] Co de Phone Number [facility] CLIA # [id number] [address] [address] [place] [address] * LACTIC ACID (05/16/2025 11:51 PM CDT) LACTIC ACID 1.3 <=2.0 mmol/L 05/17/2025 12:29 AM CDT [facility] Blood Venipuncture / Unknown 05/16/2025 11:51 PM CDT 05/17/2025 12:03 AM CDT us Travis Conn DO CHEMISTRY ORDERABLES Final Resul t Performing Organization Address City/[facility]/ZIP Co de Phone Number [id number] [address] [address] [place] [address] * CTA CHEST W AND/OR WO CONTRAST [...] to intermediate prob, positive D-dimer ORDERING PROVIDER: [employer]VIS [employer]ISTS NOTE: COMPARISON: None TECHNIQUE: Axial images of [...] to intermediate prob, positive D-dimer ORDERING PROVIDER: [employer] NOTE: COMPARISON: None TECHNIQUE: Axial images of [...] edema/volume overload. 3. Gynecomastia. MACRO: None us Travis Conn DO CT ORDERABLES Final Result * (ABNORMAL) TROPONIN 2 HR, 5TH GEN (05/16/2025 8:16 PM CDT) Only the most recent of2 resultswithin the time period is included. TROPONIN T, 2 HR 5TH GEN 261(HH) <=15 ng/L 05/16/2025 9:13 PM CDT [facility] DELTA 2HR TROPONIN T % 3 See Interp. % 05/16/2025 9:13 PM CDT [facility] Blood Venipuncture / Unknown 05/16/2025 8:16 PM CDT 05/16/2025 8:33 PM CDT [facility] - 05/16/2025 9:13 PM CDT Troponin elevated. Delta not changing. us Noor Ahmed DO CHEMISTRY ORDERABLES Final Resul t Performing Organization Address [facility] de Phone Number [facility] CLIA # [id number] [address] [place] [place] [address] * (ABNORMAL) TROPONIN BASELINE, 5TH GEN (05/16/2025 6:12 PM CDT) Only the most recent of3 resultswithin the time period is included. TROPONIN T, BASELINE 5TH GEN 253(HH) <=15 ng/L 05/16/2025 7:04 PM CDT [facility] Blood Venipuncture / Unknown 05/16/2025 6:12 PM CDT 05/16/2025 6:28 PM CDT [facility] - 05/16/2025 7:04 PM CDT Troponin elevated. us Noor Ahmed DO CHEMISTRY ORDERABLES Final Resul t Performing Organization Address City/[facility]/ZIP Co de Phone Number [facility] [place] [facility] CLIA # [id number] [address] [facility] [place] [address] * XR CHEST PA OR AP 1 [...] - 125 pg/mL 05/16/2025 1:30 PM CDT [facility] Comment: INTERPRETIVE COMMENT based on diagnosis: [...] 1:03 PM CDT 05/16/2025 1:09 PM CDT us Fili Pablo BELCHER CHEMISTRY ORDERABLES Final Re sult [facility] CLIA # [id number] [address] [place] [id number] * LIPASE (05/16/2025 1:03 PM CDT) Only the most recent of2 resultswithin the time period is included. LIPASE 21 13 - 60 U/L 05/16/2025 1:30 PM CDT [facility] Blood Venipuncture / Unknown 05/16/2025 1:03 PM CDT 05/16/2025 1:09 PM CDT us Fili Shah DO CHEMISTRY ORDERABLES Final Re sult Performing Organization Address City/[facility]/ZIP Co de Phone Number [facility] CLIA # [id number] [address] [place] [address] [id number] * PT AND APTT (05/16/2025 12:34 PM CDT) PROTIME 12.5 12.1 - 14.3 Seconds 05/16/2025 12:56 PM CDT [facility] INR 0.9 0.9 - 1.1 05/16/2025 12:56 PM CDT [facility] PTT 34.1 25.1 - 35.4 seconds 05/16/2025 12:56 PM CDT [facility] Blood Venipuncture / Unknown 05/16/2025 12:34 PM CDT 05/16/2025 12:42 PM CDT Fili Shah DO HEMATOLOGY ORDERABLES Final R esult [facility] CLIA # [id number] [address] [place] [id number] * (ABNORMAL) D-DIMER (05/16/2025 12:34 PM CDT) D-DIMER QUANT 1.63(H) <0.50 ug/mL FEU 05/16/2025 1:29 PM CDT [facility] Blood Venipuncture / Unknown 05/16/2025 12:34 PM CDT 05/16/2025 12:42 PM CDT Narrative [facility] - 05/16/2025 1:29 PM CDT D-Dimer assay cutoff value for exclusion of DVT and/or PE is <0.50 ug/mL FEU. us Fili Shah DO HEMATOLOGY ORDERABLES Final R esult [facility] CLIA # [id number] [address] [place] [address] * PROTIME-INR (05/15/2025) Pathologist [facility] ABSTRACTED PROTIME 13.7 ABSTRACTED INR 0.98 Blood 05/15/2025 Abstract Provider HEMATOLOGY ORDERABLES Final Re sult [...] intracranial findings. Narrative Procedure Note Juice Ford, DO - 04/27/2025 IMPRESSION: Please see below. [...] 6.7(H) <5.0 mg/L 04/26/2025 11:32 AM CDT [facility] Blood BLOOD SPECIMEN / Unknown Venipuncture / Unknown 04/26/2025 10:45 AM CDT 04/26/2025 11:00 AM CDT Kelsea Dailey MD CHEMISTRY ORDERABLES Final Resu lt Performing Organization Address [facility]/ZIP Co de Phone Number [facility] CLIA # [id number] [address] [place] [address] * (ABNORMAL) URINALYSIS MICROSCOPY ONLY (04/11/2025 4:42 PM CDT) WBC UA 0-2 0 - 2 /hpf 04/11/2025 5:08 PM CDT [facility] RBC UA 6-10(A) 0 - 2 /hpf 04/11/2025 5:08 PM CDT [facility] BACTERIA UA Negative Negative /hpf 04/11/2025 5:08 PM CDT [facility] EPITHELIAL CELLS, URINE 0-5 0 - 5 /hpf 04/11/2025 5:08 PM CDT [facility] HYALINE CAST 6-10(A) None Seen, 0-2 /lpf 04/11/2025 5:08 PM CDT [facility] Urine URINE SPECIMEN OBTAINED BY CLEAN CATCH PROCEDURE / Unknown Collection / Unknown 04/11/2025 4:42 PM CDT 04/11/2025 4:53 PM CDT us Kelsea Dailey MD URINE ORDERABLES Final Result Performing Organization Address [facility]/ZIP Co de Phone Number [facility] CLIA # [id number] [address] [place] [address] * (ABNORMAL) URINALYSIS WITH REFLEX MICROSCOPIC (04/11/2025 4:42 PM CDT) COLOR UA Yellow Pale to Dark Yellow 04/11/2025 5:08 PM CDT [facility] CLARITY UA Clear Clear 04/11/2025 5:08 PM CDT [facility] SPECIFIC GRAVITY UA 1.020 1.003 - 1.035 04/11/2025 5:08 PM CDT [facility] PH UA 7.5 5.0 - 8.0 04/11/2025 5:08 PM CDT [facility] LEUKOCYTE ESTERASE UA Negative Negative 04/11/2025 5:08 PM CDT [facility] NITRITE UA Negative Negative 04/11/2025 5:08 PM CDT [facility] PROTEIN UA 3+(A) Negative 04/11/2025 5:08 PM CDT [facility] GLUCOSE UA 2+(A) Negative 04/11/2025 5:08 PM CDT [facility] KETONES UA Negative Negative 04/11/2025 5:08 PM CDT [facility] UROBILINOGEN UA 0.2 <2.0 mg/dL 5:08 PM CDT [facility] BILIRUBIN UA Negative Negative 04/11/2025 5:08 PM CDT [facility] BLOOD UA 2+(A) Negative 04/11/2025 5:08 PM T [facility] Urine URINE SPECIMEN OBTAINED BY CLEAN CATCH PROCEDURE / Unknown Collection / Unknown 04/11/2025 4:42 PM CDT 04/11/2025 4:53 PM CDT Kelsea Dailey MD URINE ORDERABLES Final Result [facility] # [id number] [address] [place] [address] 388458 * (ABNORMAL) HEMOGLOBIN A1C (11/10/2024 2:22 PM PAPER BAG PRESS OPERATOR) HEMOGLOBIN A1C 10.5(H) <5.7 % of [...] children. ESTIMATED AVERAGE GLUCOSE (MG/DL) 255 mg/dL [facility] ESTIMATED AVERAGE GLUCOSE (MMOL/L) 14.1 mmol/L [facility] Comment: Test Performed at: [facility] [place] [place] [address] [address] [place] [address] Luz Lang MD Blood 11/10/2024 2:22 PM PAPER BAG PRESS OPERATOR 11/11/2024 4:34 AM PAPER BAG PRESS OPERATOR us Roberta Kennedy NP CHEMISTRY ORDERABLES Final Res ult [facility] [phone] [facility] [place] [address] [place] [address] * CT ABDOMEN PELVIS WO CONTRAST (08/07/2024 [...] (ABNORMAL) LIPID PANEL (07/14/2024 4:40 AM CDT) [facility] CHOLESTEROL 357(H) <200 mg/dL 07/14/2024 5:49 AM CDT [facility] TRIGLYCERIDE 305(H) <150 mg/dL 07/14/2024 5:49 AM CDT [facility] HDL 40 40 - 59 mg/dL 07/14/2024 5:49 AM CDT [facility] LDL CALCULATED 256(H) <100 mg/dL 07/14/2024 5:49 AM CDT [facility] NON-HDL CHOLESTEROL 317(H) <130 mg/dL 07/14/2024 5:49 AM CDT [facility] Blood Venipuncture / Unknown 07/14/2024 4:40 AM CDT 07/14/2024 4:59 AM CDT [facility] - 07/14/2024 5:49 AM CDT TOTAL CHOLESTEROL [...] Bashir NP CHEMISTRY ORDERABLES Final R esult [facility] [id number] [address] [place] [address] * MICROALBUMIN/CREATININE RATIO, RANDOM UR (07/11/2015 10:53 PM CDT) MICROALBUMIN, URINE 67.8 mg/dL 07/11/2015 11:45 PM CDT [facility] CREATININE, URINE 163.8 40.0 - 278.0 mg/dL 07/11/2015 11:45 PM CDT [facility] Comment: Reference Range varies with fluid intake and diet. MICROALBUMIN/CR EAT RATIO, UR 413.9 mg/g Creatinine 07/11/2015 11:45 PM CDT [facility] Comment: Condition mg/g Creatinine Normal Males <17 Normal Females <25 Microalbuminuria Males 17-299 Microalbuminuria Females 25-299 Overt proteinuria >=300 Urine 07/11/2015 10:5 3 PM CDT 07/11/2015 10:53 PM CDT Jyoti Shirley HEAD CHEF URINE ORDERABLES Final Result Performing Organization Address City/State/[facility] Co de Phone Number [facility] CLIA # [id number] [address] [place] [address] [facility] CLIA # [id number] [address] [place] [address] from Last 3 Months or Most Recently Relevant to Health Maintenance Insurance [place] Member Subscriber Plan / Payer (Ef fective 2025-Present) Name:Hunter San Relation to Subscriber:Self Name:Hunter San Payer ID:Not on file Group ID:Not on file Type:Medicaid Address: [address] RX [employer] RX Member Subscriber Plan / Payer (Ef fective 2025-Present) Name:Hunter San Relation to Subscriber:Not on file Name:Hunter San Subscriber ID:Not on file Date of :1990 Payer ID:Not on file Group ID:[id number] Type:RX Medicare Part D Address: [place], [place] RX INFOCROSSING Medicaid Advance Directives For more information, please contact: [phone] * Full Code (Latest Code Status on [...] 6:17 PM 07/16/2024 2:00 PM Care Teams Journalism Professor Relationship Specialty Start Date End Date Duke Alarcon MD [address] [phone] PCP - General Family Practice 08/10/24
--- OUTSIDE RECORDS SUMMARY | 2025-06-26 12:48 | XMS_ITS | Encounter Summary ---
Author Organization [facility] Address [address] [place] [address] Care Team Providers Care Hole Digger Name Role Phone Karlo Banks MD Primary Care Provider [phone] Encounter Details Date Type Department Care Team (Late st Contact Info) Description 07/11/2015 Lab Requisition [facility] [place] [address] [place] [phone] Jyoti Shirley, CERTIFIED NURSE AIDE [address] [place] [phone] Social History Tobacco Use Types Packs/Day Years Used Date Smoking Tobacco: Former Cigarettes Alcohol Use Standard Drinks/Week Comments No 0 (1 standard drink = 0.6 oz pur e alcohol) Sex and Gender Information Value Date Recorded Sex Assigned at Not on file 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 MICROALBUMIN/CR EAT RATIO, UR 413.9 mg/g Creatinine 07/11/2015 11:45 PM CDT [facility] Comment: Condition mg/g Creatinine Normal Males <17 Normal Females <25 Microalbuminuria Males 17-299 Microalbuminuria Females 25-299 Overt proteinuria >=300 Urine 07/11/2015 10:5 3 PM CDT 07/11/2015 10:53 PM CDT Jyoti Shirley CERTIFIED NURSE AIDE URINE ORDERABLES Final Result [facility] CLIA # [id number] [address] [place] [address] * (ABNORMAL) LIPID PANEL (07/11/2015 10:53 PM CDT) CHOLESTEROL 204(H) <200 mg/dL 07/11/2015 11:21 PM CDT [facility] TRIGLYCERIDE 276(H) <150 mg/dL 07/11/2015 11:21 PM CDT [facility] HDL 25(L) 40 - 59 mg/dL 07/11/2015 11:21 PM CDT [facility] LDL CALCULATED 124(H) <100 mg/dL 07/11/2015 11:21 PM CDT [facility] NON-HDL CHOLESTEROL 179(H) <130 mg/dL 07/11/2015 11:21 PM CDT [facility] Blood 07/11/2015 10:5 3 PM CDT 07/11/2015 10:53 PM CDT Narrative [facility] - 07/11/2015 11:21 PM CDT TOTAL CHOLESTEROL [...] >=220 Based on AHA/NCEP Guidelines Jyoti Shirley [facility] CHEMISTRY ORDERABLES Final Resu lt Performing Organization Address [facility] de Phone Number [facility] CLIA # [id number] [address] [place] [address] * (ABNORMAL) HEMOGLOBIN A1C (07/11/2015 10:53 PM CDT) HEMOGLOBIN A1C 10.6(H) 4.8 - 5.9 % 07/11/2015 11:16 PM CDT [facility] EST. AVG GLUCOSE, A1C 258 mg/dL 07/11/2015 11:16 PM CDT [facility] Blood 07/11/2015 10:5 3 PM CDT 07/11/2015 10:53 PM CDT Jyotivadim Shirley [facility] CHEMISTRY ORDERABLES Final Resu lt Performing Organization Address [facility]/ZIP Co de Phone Number [facility] CLIA # [id number] [address] [place] [address] [phone] * (ABNORMAL) COMPREHENSIVE METABOLIC PANEL (07/11/2015 10:53 PM CDT) SODIUM 129(L) 136 - 145 mmol/L 07/11/2015 11:21 PM [facility] POTASSIUM 3.6 3.5 - 5.1 mmol/L 07/11/2015 11:21 PM [facility] CHLORIDE 87(L) 98 - 107 mmol/L 07/11/2015 11:21 PM [facility] CO2 25 22 - 29 mmol/L 07/11/2015 11:21 PM [facility] CALCIUM 9.3 8.6 - 10.0 mg/dL 07/11/2015 11:21 PM [facility] BUN 12 6 - 20 mg/dL 07/11/2015 11:21 PM [facility] CREATININE 0.61(L) 0.67 - 1.17 mg/dL 07/11/2015 11:21 PM [facility] GLUCOSE 287(H) 74 - 106 mg/dL 07/11/2015 11:21 PM [facility] TOTAL PROTEIN 8.1 6.6 - 8.7 g/dL 07/11/2015 11:21 PM [facility] ALBUMIN 4.5 3.5 - 5.2 g/dL 07/11/2015 11:21 PM [facility] BILIRUBIN TOTAL 2.7(H) 0.0 - 1.2 mg/dL 07/11/2015 11:21 PM [facility] ALKALINE PHOSPHATASE 93 40 - 129 U/L 07/11/2015 11:21 PM [facility] AST 19 10 - 50 U/L 07/11/2015 11:21 PM [facility] [employer] [facility] ALT 15 10 - 50 U/L 07/11/2015 11:21 PM [facility] [employer] [facility] GFR >60 >=60 mL/min/1.7 3 sq meter 07/11/2015 11:21 PM [facility] [employer] [facility] Comment: eGFR has not been validated for [...] 3 sq meter 07/11/2015 11:21 PM CDT [facility] [place] ANION GAP 17 12 - 20 mmol/L 07/11/2015 11:21 PM CDT [facility] Blood 07/11/2015 10:5 3 PM CDT 07/11/2015 10:53 PM CDT Jyoti Shirley CERTIFIED NURSE AIDE CHEMISTRY ORDERABLES Final Resu lt [facility] [place] CLIA # [id number] [address] [place] [address] documented in this encounter Visit Diagnoses Not on filedocumented in this encounter Care Teams Hole Digger Relationship Specialty Start Date End Date Karlo Banks MD PCP - General Internal Medicine 10/14/14 01/11/21 documented as of this encounter
--- OUTSIDE RECORDS SUMMARY | 2025-06-26 12:48 | XMS_ITS | Encounter Summary ---
Author Organization [facility] Address 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 Gender Identity Not on file Sexual Orientation Not on file documented as of this encounter Plan of Treatment Upcoming Encounters Date Type Department Care Team (Late st Contact Info) Description 07/05/2025 2:20 PM CDT Office Visit [facility] Family Medicine [place] [address] [address] Duke Alarcon MD [address] [place] [address] 07/07/2025 11:10 AM CDT Office Visit [facility] Ophthalmology [place] [address] [place] [address] Kim Servin MD [address] [place] [address] 08/09/2025 1:30 PM CDT Appointment [facility] Echo [address] [place] [address] Lawanda Mendoza, SPECIAL ASSETS OFFICER [address] [place] [address] 09/27/2025 9:30 AM PRESCHOOL LEAD TEACHER Office Visit [facility] Horse Doctor Optometry [facility] [address] [place] [address] Constantin Bales, OD [address] [place] [address] documented as of this encounter Visit Diagnoses Not on filedocumented in this encounter Care Teams Extension Agent Relationship Specialty Start Date End Date Duke Alarcon MD [address] [address] PCP - General Family Practice 08/10/24 documented as of this encounter
--- OUTSIDE RECORDS SUMMARY | 2025-06-26 12:48 | XMS_ITS | Encounter Summary ---
Author Organization [facility] Address [address] [place] [address] Care Team Providers Care Solid Tire Finisher Name Role Phone Karlo Banks MD Primary Care Provider [phone] Encounter Details Date Type Department Care Team (Latest Contact Info) Description 01/24/2004 Outpatient Historical [facility] [address] [place] [phone] Holland Bell MD [address] [place] [address] ASTHMA UNSPECIFIED (Primary Dx) Social History Tobacco Use Types Packs/Day Years Used Date Smoking Tobacco: Never Assessed Sex and Gender Information Value Date Recorded Sex Assigned at Not on file 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
--- OUTSIDE RECORDS SUMMARY | 2025-06-26 12:48 | XMS_ITS | Encounter Summary ---
Author Organization [facility], [facility] Address [address] [place] [address] Phone Care Team Providers Care Cardiopulmonary Specialist Name Role Phone Duke Alarcon MD Primary Care Provider [phone] Encounter Details Date Type Department Care Team (Late st Contact Info) Description 05/04/2025 [facility] [address] [place] [address] Angélica Ny MD [address] [place] [address] Social History Tobacco Use Types [...] Hunter San, 1990, 34y, M Dialysis Location: [facility] Attending Beveller Operator: Angélica Ny Service Date: 05/04/2025 Service Provider: [...] UF with treatments. Ed to fluid restrict ? 1.5 L a day. Dry weight during admission reviewed - no change to EDW. CARE COORDINATION Comments: For CPAP fit Post discharge follow-up appointments reviewed with the patient. EDUCATION Education relevant to the discharge diagnosis provided to the patient or caregiver IMPRESSION & PLAN Comments: For CPAP fit Fluid restrict ? 1.5 L To continue on BP medications. Added cardure 4 mg po qhs Signed By: Angélica Ny MD on 05/04/2025 1:31:23 PM documented in this encounter Plan of Treatment Not on file documented as of this encounter Visit Diagnoses Not on filedocumented in this encounter Care Teams Cardiopulmonary Specialist Relationship Specialty Start Date End Date Dkue Alarcon MD [address] [facility] [address] [place] [address] PCP - General Family Medicine 08/12/24 documented as of this encounter
--- OUTSIDE RECORDS SUMMARY | 2025-06-26 12:48 | XMS_ITS | Encounter Summary ---
Author Organization [facility] Address [address] [place] [address] Care Team Providers Care Chief Meter Reader Name Role Phone Duke Alarcon MD Primary Care Provider [phone] Encounter Details Date Type Department Care Team (Late Contact Info) Description 06/15/[address] [facility] Health Information Management [id number] [place] [address] Provider, Abstract NO ADDRESS ON FILE Social [...] on file Legal Sex Male 3:23 AM CPO Gender Identity Not on file Sexual Orientation Not on file documented as of this encounter Plan of Treatment Upcoming Encounters Date Type Department Care Team (Late Contact Info) Description 07/05/2025 2:20 PM CDT Office Visit [facility] Family Medicine [place] [address] [facility] [address] [place] [address] Duke Alarcon MD [address] [address] 07/07/2025 11:10 AM CDT Office Visit [facility] Ophthalmology [place] [address] [place] [address] Kim Servin MD [address] [place] [address] 08/09/2025 1:30 PM CDT Appointment [facility] Echo [address] [place] [address] Lawanda Mendoza, [facility] [address] [facility] [address] [place] [address] 09/27/2025 9:30 AM CPO Office Visit [facility] Recreational Vehicle Resort Manager Optometry [facility] [address] [place] [address] Constantin Bales, OD [address] [place] [address] documented as of this encounter Procedures Procedure Name Priority Date/Time Associated Diagnosis Comments COMPREHENSIVE METABOLIC PANEL Routine 06/15/2025 2:09 PM CDT documented in this encounter Results * COMPREHENSIVE METABOLIC PANEL (06/15/2025 2:09 PM CDT) Blood us Abstract Provider CHEMISTRY ORDERABLES Final Res ult documented in this encounter Visit Diagnoses Not on filedocumented in this encounter Care Teams Chief Meter Reader Relationship Specialty Start Date End Date Duke Alarcon MD [address] [address] PCP - General Family Practice 08/10/24 documented as of this encounter
--- OUTSIDE RECORDS SUMMARY | 2025-06-26 12:48 | XMS_ITS | Encounter Summary ---
Author Organization [facility] Address 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 Gender Identity Not on file Sexual Orientation Not on file documented as of this encounter Plan of Treatment Upcoming Encounters Date Type Department Care Team (Late st Contact Info) Description 07/05/2025 2:20 PM CDT Office Visit [facility] Family Medicine [place] [address] [place] [address] Duke Alarcon MD [address] [place] [address] 07/07/2025 11:10 AM CDT Office Visit [facility] Ophthalmology [place] [address] [place] [address] Kim Servin MD [address] [place] [address] 08/09/2025 1:30 PM CDT Appointment [facility] Echo [address] [place] [address] Lwaanda Mendoza, PIE BAKERY LABORER [address] [facility] [address] [place] [address] 09/27/2025 9:30 AM BLOOD BANK SPECIALIST Office Visit [facility] Arts Administrator Or Manager Optometry [facility] [address] [place] [address] Constantin Bales, OD [address] [place] [address] documented as of this encounter Visit Diagnoses Diagnosis Malignant hypertension Essential hypertension, malignant documented in this encounter Care Teams Fireperson Relationship Specialty Start Date End Date Duke Alarcon MD [address] [place] [address] PCP - General Family Practice 08/10/24 documented as of this encounter
--- OUTSIDE RECORDS SUMMARY | 2025-06-26 12:48 | XMS_ITS | Clinical Summary ---
Author Organization [facility] Facility Address [address] [address] Care Team Providers Care Assistant County Engineer Name Role Phone Duke Alarcon MD Primary Care Provider [phone] Allergies Active Allergy Reactions Criticality Noted Date Comments Bee Venom 08/24/2024 Lisinopril 08/24/2024 Medications amitriptyline (ELAVIL) 50 MG tablet Take 50 mg by mouth at bed time 4 Active amLODIPine (NORVASC) 10 MG tablet Take 10 mg by mouth 1 (one) time each day 4 Active buPROPion XL (WELLBUTRIN XL) 150 MG 24 hr tablet Take 150 mg by mouth 1 (one) time each day 4 Active EPINEPHrine (EPIPEN) 0.3 MG/0.3ML injection syringe Inject 1 Syringe under the skin 1 (one) time 4 Active hydrALAZINE 100 MG tablet Take 100 mg by mouth every 8 (eight) hours 4 Active Lantus SoloStar 100 UNIT/ML injection Inject 15 Units under the skin in the morning and 15 Units in the evening. 4 Active Insulin Lispro, 1 Unit Dial, 100 UNIT/ML solution pen-injector Inject 10 Units under the skin in the morning and 10 Units at noon and 10 Units in the evening. 4 Active carvedilol (COREG) 25 MG tabletIndications :Malignant hypertension Take 1 tablet (25 mg total) by mouth every 12 (twelve) hours 60 tablet 2 4 Active spironolactone (Aldactone) 25 MG tablet Take 1 tablet (25 mg total) by mouth 1 (one) time each day 30 tablet 11 4 09/17/20 25 Active albuterol HFA (PROVENTIL HFA;VENTOLIN HFA) 108 (90 Base) MCG/ACT inhaler Inhale 2 puffs every 6 hours as needed 5 Active cloNIDine (CATAPRES) 0.1 MG tablet Take 1 tablet by mouth three x daily as needed if top blood pressure number > 200 and or bottom number > 110 4 Active ARIPiprazole (ABILIFY) 5 MG tablet Take [...] morning and 1 mg in the evening. 5 Active doxazosin (CARDURA) 4 MG tablet Take 4 mg by mouth every night 5 Active gabapentin (NEURONTIN) 100 MG capsule Take 200 mg by mouth in the morning and 200 mg at noon and 200 mg in the evening. 5 Active isosorbide mononitrate (IMDUR) 30 MG 24 hr tablet Take 30 mg by mouth in the morning. 5 Active sevelamer carbonate (RENVELA) 800 MG tablet Take 2 tablets by mouth 1 (one) time each day 5 Active traMADol (ULTRAM) 50 MG tablet Take 50 mg by mouth every 8 hours as needed 5 Active traZODone (DESYREL) 50 MG tablet Take 50 mg by mouth every night 5 Active Varenicline Tartrate, Starter, 0.5 MG X 11 & 1 MG X 42 tablet therapy pack Pt is on day 15 5 Active cefdinir (OMNICEF) 300 MG capsule Take 300 mg by mouth in the morning. 5 05/30/20 25 Active Problems Problem Noted Date Diagnosed Date Type 1 diabetes mellitus wit h diabetic chronic kidney disease 08/27/2024 Malignant hypertension 08/27/2024 Persistent proteinuria 08/27/2024 Substance abuse 08/27/2024 Chronic kidney disease stage 3A 08/27/2024 Acute nontraumatic kidney injury 07/12/2024 Encounters Date Type Department Care Team Description 06/24/2025 Orders Only [facility], [facility] [address] [place] [address] Angélica Ny MD 06/22/2025 Orders Only [facility], [facility] [address] [place] [address] Angélica Ny MD 06/22/[address] [place] [address], [facility] [address] [place] [phone] Delia Solis NP End stage renal disease; Dependence on renal dialysis; Type 1 diabetes mellitus with diabetic chronic kidney disease 06/12/2025 Orders Only [facility], [facility] [address] [place] [address] Angélica Ny MD 06/10/2025 Orders Only [facility], [facility] [address] [place] [phone] Angélica Ny MD 06/08/2025 Treatment [facility], [facility] [address] [place] [address] Anju Mcleod NP End stage renal disease; Dependence on renal dialysis 06/03/2025 Orders Only [facility], [facility] [address] [place] [address] Angélica Ny MD 06/01/2025 Orders Only [facility], [facility] [address] [place] [address] Angélica Ny MD 06/01/[address] [place] [address], [facility] [address] [place] [phone] Angélica Ny MD End stage renal disease; Dependence on renal dialysis 05/29/2025 Orders Only [facility], [facility] [address] [place] [address] Angélica Ny MD 05/27/2025 Orders Only [facility], [facility] [address] [place] [address] Angélica Ny MD 05/26/2025 Treatment [facility], [facility] [address] [place] [address] Anju Mcleod NP End stage renal disease; Dependence on renal dialysis 05/25/2025 Orders Only [facility], [facility] [address] [place] [address] Angélica Ny MD 05/25/2025 TCM in Dialysis Clinic [facility], [facility] [address] [place] [address] Anju Mcleod NP 05/25/[address] [place] [address], [facility] [address] [place] [address] Anju Mcleod NP End stage renal disease; Dependence on renal dialysis; Type 1 diabetes mellitus with diabetic chronic kidney disease 05/24/2025 Telephone [facility], [facility] [address] [place] [phone] Angélica Ny MD 05/13/2025 Documentation Only [facility], [facility] [address] [place] [address] Tk Mcclelland MD 05/11/2025 Orders Only [facility], [facility] [address] [place] [address] Angélica Ny MD 05/06/2025 Orders Only [facility], [facility] [address] [place] [address] Angélica Ny MD 05/04/2025 TCM in Dialysis Clinic [address] [place] [address] [place] [phone] Angélica Ny MD 05/04/[address] [place] [address] [place] [address] Angélica Ny MD End stage renal disease; Dependence on renal dialysis 04/29/2025 Orders Only [facility], [facility] [address] [place] [address] Angéilca Ny MD 04/29/2025 Documentation Only [facility], [facility] [address] [place] [address] Anne Muñoz MA 04/28/2025 Telephone [facility], [facility] [address] [place] [address] Breonna Barnett NP 04/20/2025 TCM in Dialysis Clinic [address] [place] [address] [place] [address] Delia Solis NP 04/20/[address] [place] [address] [place] [address] Delia Solis NP End stage renal disease; Dependence on renal dialysis 04/15/2025 Orders Only [facility], [facility] [address] [place] [address] Angélica Ny MD 04/08/2025 Orders Only [facility], [facility] [address] [place] [address] Angélica Ny MD 04/06/[address] [place] [address], [facility] [address] [place] [phone] Anju Mcleod NP End stage renal disease; Dependence on renal dialysis 04/01/2025 Orders Only [facility], [facility] [address] [place] [address] Angélica Ny MD 04/01/2025 Treatment [facility], [facility] [address] [place] [address] Angélica Ny MD End stage [...] Comments Blood Pressure 230/130 11/18/2024 12:57 PM CHEMICAL PATHOLOGIST Pulse 105 11/18/2024 12:57 PM CHEMICAL PATHOLOGIST Temperature - - Respiratory Rate - - Oxygen Saturation 97% 11/18/2024 12:57 PM CHEMICAL PATHOLOGIST Inhaled Oxygen Concentration - - Weight 114 kg (251 lb 14.4 oz) 11/18/2024 12:57 PM CHEMICAL PATHOLOGIST Height 182.9 cm (6') 11/18/2024 12:57 PM CHEMICAL PATHOLOGIST Body Mass Index 34.16 11/18/2024 12:57 PM CHEMICAL PATHOLOGIST Plan of Treatment Health Maintenance Due Date [...] Vaccine (#1) 2025 09/14/2024 Diabetes: Hemoglobin A1C 09/21/2025 025, 03/18/2025, 12/17/2024, Additional history exists Diabetes: Ophthalmology Exam 01/11/2026 01/11/2025, 11/02/2024 Procedures Procedure Name Priority Date/Time Associated Diagnosis Comments HEMATOLOGY Routine 06/24/2025 [facility] RESULTS Routine 06/22/2025 HD KINETICS Routine 06/22/2025 POST CHEMISTRY Routine 06/22/2025 SPECIAL CHEMISTRY Routine 06/22/2025 TRACE ELEMENTS Routine 06/22/2025 CHEMISTRY Routine 06/22/2025 HEMATOLOGY Routine 06/22/2025 CHEMISTRY Routine 06/22/2025 [facility] RESULTS Routine 06/12/2025 HD KINETICS Routine 06/12/2025 POST CHEMISTRY Routine 06/12/2025 CHEMISTRY Routine 06/12/2025 HEMATOLOGY Routine 06/10/2025 HEMATOLOGY Routine 06/03/2025 CHEMISTRY Routine 06/03/2025 CHEMISTRY Routine 06/01/2025 HEMATOLOGY Routine 06/01/2025 [facility] RESULTS Routine 05/29/2025 HD KINETICS Routine [...] HEMATOLOGY Routine 04/01/2025 POST CHEMISTRY Routine 04/01/2025 from Last 3 Months Results * (ABNORMAL) HEMATOLOGY (06/24/2025) Only the most recent of12 resultswithin the time period is included. Hemoglobin 9.1(L) 14.0 - 18.0 g/dL [facility] Hemoglobin x 3 27.3(L) 42.0 - 54.0 % [facility] 06/24/2025 06/25/2025 11: 31 AM CDT Narrative [facility] - 06/25/2025 Unless otherwise specified, test(s) performed at: [facility], [address] [place], [place] [id number] ASSOCIATE AGENT INSURANCE SALES: Ulises De Paz M.D. For any questions, please call customer service at FREQUENCY:OTHER Resulting Agency Comment Specimen source: Blood us Angélica Ny MD LAB BLOOD ORDERABLES Final Re sult Performing Organization Address [facility] de Phone Number [facility] See order comments or contact performing lab Unknown, [place] * HD KINETICS (06/22/2025) Only the most recent of5 resultswithin the time period is included. Pathologist [facility] % Urea Reduction 76 65 - 80 % [facility] 06/22/2025 06/23/2025 11: 41 AM CDT Narrative Resulting Agency Comment Specimen source: Plasma us Angélica Ny MD LAB BLOOD ORDERABLES Final Re sult Performing Organization Address [facility] de Phone Number [facility] See order comments or contact performing lab Unknown, [place] * (ABNORMAL) SPECIAL CHEMISTRY (06/22/2025) Pathologist [facility] Hemoglobin A1C 6.3(H) 4.8 - 5.9 % [facility] 06/22/2025 06/23/2025 11: 03 AM CDT Narrative [facility] - 06/23/2025 Unless otherwise specified, test(s) performed at: [facility], [address] [place], [place] [id number] ASSOCIATE AGENT INSURANCE SALES: Ulises De Paz M.D. For any questions, please call customer service at FREQUENCY:MONTHLY Resulting Agency Comment Specimen source: Blood us Angélica Ny MD LAB BLOOD BANK TEST ORDERABLE S Final Result Performing Organization Address [facility] de Phone Number [facility] See order comments or contact performing lab Unknown, [place] * POST CHEMISTRY (06/22/2025) Only the most recent of5 resultswithin the time period is included. BUN Post Dialysis 14 6 - 19 mg/dL [facility] 06/22/2025 06/23/2025 11: 41 AM CDT Narrative [facility] - 06/23/2025 Unless otherwise specified, test(s) performed at: [facility], [address] [place] [id number] ASSOCIATE AGENT INSURANCE SALES: Ulises De Paz M.D. For any questions, please call customer service at FREQUENCY:MONTHLY Resulting Agency Comment Specimen source: Plasma Angélica Ny MD LAB BLOOD ORDERABLES Final Re sult [facility] See order comments or contact performing lab Unknown, [place] * TRACE ELEMENTS (06/22/2025) Aluminum <5 0 - 10 mcg/L [facility] Comment: This test was developed and its performance characteristics determined by [facility]. It has not been cleared or approved by the FDA. The laboratory is regulated under CLIA as qualified to perform high complexity testing. This test is used for clinical purposes. It should not be regarded as investigational or for research. 06/22/2025 06/23/2025 10: 53 AM CDT Narrative [facility] - 06/23/2025 Unless otherwise specified, test(s) performed at: [facility], [address] [place] [id number] ASSOCIATE AGENT INSURANCE SALES: Ulises De Paz M.D. For any questions, please call customer service at FREQUENCY:MONTHLY Resulting Agency Comment Specimen source: Serum Angélica Ny MD LAB BLOOD ORDERABLES Final Re sult [facility] See order comments or contact performing lab Unknown, [place] * (ABNORMAL) [facility] (06/22/2025) Only the most recent of10 resultswithin the time period is included. Ferritin 812(H) 22 - 322 ng/mL [facility] Labs 06/22/2025 06/23/2025 11: 31 AM CDT Narrative [facility] - 06/23/2025 Unless otherwise specified, test(s) performed at: [facility], [address] [place] [address] ASSOCIATE AGENT INSURANCE SALES: Ulises De Paz M.D. For any questions, please call customer service at FREQUENCY:MONTHLY Resulting Agency Comment Specimen source: Serum us Angélica Ny MD LAB BLOOD ORDERABLES Edited R esult - Final [facility] See order comments or contact performing lab Unknown, [place] * [facility] Lab Results (06/22/2025) Only the most recent of5 resultswithin the time period is included. eKdrt/V 1.49 [facility] spKt/V Gotch 1.71 [facility] ge Center WSTDKT/V 1.7 [facility] eKt/V ([place]) 1.50 [facility] PCR 80.03 [facility] spKt/V (Daugirdas II) 1.72 [facility] nPCR_HD 0.88 [facility] eKt/V Gotch 1.49 [facility] e Center eNPCR 0.85 [facility] 06/22/2025 06/22/2025 us Brandon Ordering Provider LAB BLOOD ORDERABLES Final Result Performing Organization Address [facility] de Phone Number [facility] Contact Performing lab Unknown, [place] * THERAPEUTIC DRUGS (05/27/2025) Vancomycin Tr 19.9 10.0 - 20.0 mcg/mL [facility] Comment: Verified by repeat analysis. Test performed at [facility], [address] [place] [id number]. Telephone . Administrative Underwriter: Gerber hCin MD., PhD. 05/27/2025 05/29/2025 7:5 2 AM CDT Narrative [facility] - 05/29/2025 Unless otherwise specified, test(s) performed at: [facility], [address] [place] [address] ASSOCIATE AGENT INSURANCE SALES: Ulises De Paz M.D. For any questions, please call customer service at FREQUENCY:OTHER Resulting Agency Comment Specimen source: Serum Angélica Ny MD LAB BLOOD ORDERABLES Final Re sult Performing Organization Address City/[facility]/ZIP Co de Phone Number [facility] See order comments or contact performing lab Unknown, [place] from Last 3 Months Insurance Medicaid [place] ([id number]) UHC Medicare Care Teams Assistant County Engineer Relationship Specialty Start Date End Date Duke Alarcon MD [address] [address] PCP - General Family Medicine 08/12/24
--- NOTE | 2025-06-26 12:51 | XRR_ITS ---
PROCEDURE INFORMATION: Exam: XR Chest Exam date and time: 06/26/2025 12:55 PM Age: 34 years old Clinical indication: Shortness of breath; Additional info: Short of breath TECHNIQUE: Imaging protocol: Radiologic exam of the chest. Views: 1 view. COMPARISON: CT angio chest PE protcl [id number] 06/15/2025 11:01 AM FINDINGS: Lungs: Mild pulmonary vascular congestion. No acute pulmonary pathology. Pleural spaces: Small bilateral pleural effusions, left larger than right. Heart/Mediastinum: Cardiac silhouette appears enlarged although this is accentuated by technique. Bones/joints: No significant pathology. XR/XR chest 1V portable [id number] IMPRESSION: Findings suggestive of mild congestive failure and/or fluid overload.
--- NOTE | 2025-06-26 12:54 | W.ED.CHESTPA ---
Documented by User: ZURDO Anthony 06/26/25 16:38 HPI - Chest Pain General: Chief Complaint: Chest Pain Stated Complaint: chest pain Time Seen by Provider: 06/26/25 12:44 History of Present Illness: Patient is a 34-year-old type I diabetic, ESRD on HD, TTS, last dialysis just prior to arrival, makes some urine, recent NSTEMI, diastolic CHF on last echo, pericardial effusion on last echo, presents to the ED with awakening sharp chest pain that is now changed from sharp to pain/pressure in the central area of his chest. He felt like he could not take a breath at all. No sputum production, no fever. No sick contact. Patient did go to dialysis today, and does not believe this helped his shortness of breath. He was removed from dialysis due to chest pain. Blood pressure was quite elevated on arrival and continued to be elevated. Patient states that his pain is a fullness at this time. Patient had recent admission for NSTEMI with discharge on 06/17/2025. Echocardiogram showed EF of 50%, grade 3?4 diastolic dysfunction, and mild hypokinesis. He chronically has a little bit of elevation in his troponin in the 100s and 200s, however last admission was late 300s. Associated symptoms: Reports dyspnea; Deny abdominal pain, fever(s), nausea, palpitations or vomiting Related Data Home Medications ?Medication ?Instructions ?Recorded ?Confirmed amlodipine 10 mg tablet 10 mg PO QAM 09/16/23 06/15/25 blood-glucose sensor (Dexcom G7 #1 ea 10/21/23 06/15/25 Sensor device) amitriptyline 50 mg tablet 50 mg PO BEDTIME 11/06/24 06/15/25 bupropion HCl 150 mg 24 hr tablet, 150 mg PO DAILY 11/06/24 06/15/25 extended release carvedilol 25 mg tablet 25 mg PO Q12H 11/06/24 06/15/25 epinephrine 0.3 mg/0.3 mL See Rx Instructions .Route .COMPLEX 11/06/24 06/15/25 injection, auto-injector aripiprazole 5 mg tablet 5 mg PO DAILY 04/12/25 06/15/25 aspirin 81 mg tablet,delayed 81 mg PO DAILY 04/12/25 06/15/25 release atorvastatin 80 mg tablet 80 mg PO BEDTIME 04/12/25 06/15/25 gabapentin 100 mg capsule 200 mg PO TID 04/12/25 06/15/25 ondansetron 4 mg disintegrating 4 mg PO Q6H PRN nausea/emesis 04/12/25 06/15/25 tablet albuterol sulfate 90 mcg/actuation 2 puff inhalation Q6H PRN 06/15/25 06/15/25 aerosol inhaler (Ventolin HFA) Shortness Of Breath clonidine HCl 0.2 mg tablet 0.2 mg PO TID 06/15/25 06/15/25 doxazosin 4 mg tablet 4 mg PO BEDTIME 06/15/25 06/15/25 insulin glargine 100 unit/mL (3 25 unit SUBCUT BID 06/15/25 06/15/25 mL) subcutaneous pen (Lantus Solostar U-100 Insulin) insulin glargine-aglr 100 unit/mL 25 unit SUBCUT BID 06/15/25 06/15/25 (3 mL) subcutaneous pen (Rezvoglar IshaPen) isosorbide mononitrate 30 mg 30 mg PO DAILY 06/15/25 06/15/25 tablet,extended release 24 hr naloxone 4 mg/actuation nasal spray See Rx Instructions .Route .COMPLEX 06/15/25 06/15/25 oxycodone 5 mg tablet 5 mg PO Q8H PRN Pain 06/15/25 06/15/25 sevelamer carbonate 800 mg tablet 800 mg PO TID 06/15/25 06/15/25 spironolactone 25 mg tablet 25 mg PO DAILY 06/15/25 06/15/25 Previous Rx's ?Medication ?Instructions ?Recorded Intraoperative Neuromonitoring #1 ea 08/22/22 insulin syringe-needle U-100 1 mL #100 ea 06/27/23 31 gauge x 5/16 (BD Insulin Syringe Ultra-Fine) pen needle, diabetic 32 gauge x #100 ea 06/27/23 1/4 (BD Ultra-Fine Micro Pen Needle) blood sugar diagnostic (True #100 ea 10/04/23 Metrix Glucose Test Strip) blood-glucose meter (True Metrix #1 ea 10/04/23 Air Glucose Meter kit) lancets 31 gauge #100 ea 10/04/23 bumetanide 1 mg tablet 1 mg PO DAILY #30 tabs 04/14/25 hydralazine 100 mg tablet 100 mg PO BID #60 tabs 04/14/25 insulin lispro 100 unit/mL See Rx Instructions .Route 04/14/25 subcutaneous pen (Humalog KwikPen .COMPLEX #15 mL (U-100) Insulin) ferrous gluconate 324 mg (37.5 mg 324 mg PO BID #60 tabs 06/18/25 iron) tablet Allergies Allergy/AdvReac Type Severity Reaction Status Date / Time bee venom protein (honey bee) Allergy Unknown Verified 06/15/25 10:06 lisinopril Allergy Unknown Verified 06/15/25 10:06 Review of Systems General: Reports: 10 or more systems reviewed and unremarkable except in HPI and below Const: Reports: change in appetite, fatigue and malaise; Denies: fever(s), chills or body aches ENMT: Denies: throat pain or dry mouth Card: Reports: chest pain, dyspnea on exertion and orthopnea; Denies: palpitations, irregular heart rhythm, swelling of feet/ankles or lightheadedness Resp: Reports: dyspnea and non-productive cough GI: Denies: abdominal pain, nausea or vomiting : Denies: flank pain or difficulty urinating Musc: Denies: neck pain or back pain Neuro: Reports: numbness in extremities (chronic) Psych: Denies: anxiety or depression PFSH ED PFSH: Medical History End stage renal disease on dialysis due to type 1 diabetes mellitus Chronic left-sided low back pain with left-sided sciatica Type 1 diabetes End stage renal disease on dialysis Opiate dependence Other stimulant abuse, uncomplicated Waking at night short of breath Snoring Hypersomnia Insomnia Noncompliance w/medication treatment due to intermit use of medication Schizophrenia Methamphetamine abuse Uncontrolled hypertension Family History Other CAD (coronary artery disease) Hypertension Stroke Social History Smoking and tobacco/nicotine status: current every day tobacco/nicotine user Alcohol intake: former Substance/Drug Use: former Date of last use: Amphetamines more than 62 days ago Caregiver/support person: Yes Lives independently: Yes Household members: other Current occupation: [employer] Physical Exam Const: COMMON NORMALS: patient oriented x3 HENMT: COMMON NORMALS: normocephalic and atraumatic HEAD & SCALP: normocephalic and atraumatic Eye: COMMON NORMALS: conjunctivae normal CONJUNCTIVA: Yes conjunctivae normal Neck/C-Spine: COMMON NORMALS: full ROM and supple Chest: COMMONS NORMALS: normal inspection of the chest Resp: COMMON NORMALS: normal respiratory effort, No retractions, No use of accessory muscles and clear to auscultation bilaterally AUSCULTATION: clear to auscultation bilaterally Cardio: COMMON NORMALS: regular rhythm and Peripheral pulses 2+ throughout RATE: tachycardic RHYTHM: regular rhythm HEART SOUNDS: no gallops and Murmur heart sound present systolic (mid systolic) PERIPHERAL PULSES: Peripheral pulses 2+ throughout GI: COMMON NORMALS: Normal to inspection, nondistended, normoactive bowel sounds present, Soft to palpation, non-tender and no masses PALPATION: Yes Soft to palpation Extremity: COMMON NORMALS: normal to inspection and full ROM Neuro: COMMON NORMALS: patient oriented x3, moves all extremities and no focal motor deficits Psych: COMMON NORMALS: mental status grossly normal, Normal thought process present and cooperative THOUGHT PROCESS: Normal thought process present Skin: COMMON NORMALS: no rashes or lesions noted and no wounds GENERAL SKIN EXAM: no rashes or lesions noted Course Reevaluation(s): Reevaluation #1: Continues to have pain. Morphine given. Nitroglycerin paste started Reevaluation #2: Continued to have pain. Morphine given. Nitroglycerin drip started Reevaluation #3: Continue to have pain. Dilaudid given. Nitroglycerin drip is being titrated Consultations: Consultation #1: d/w Dr. Tony, accepted c/s for cardiology Consultation #2: d/w Dr. Canseco, accepted admission Consultation #3: d/w Dr. Cooper, accepted nephrology c/s Vital Signs: Vital signs: Vital Signs Temperature 98.4 F 06/26/25 17:35 Pulse Rate 91 06/26/25 17:35 Respiratory Rate 16 06/26/25 15:05 Blood Pressure 221/119 06/26/25 17:35 Pulse Oximetry 98 06/26/25 17:35 Oxygen Delivery Me thod Nasal Cannula 06/26/25 17:35 Oxygen Flow Rate 3 06/26/25 17:35 MDM - Chest Pain Medical Decision Making Patient is a 34-year-old gentleman with history of DM, ESRD on HD, with recent NSTEMI, diastolic dysfunction, hypokinesis on recent echocardiogram, presents with I cannot take a deep breath this morning. Weight is up approximately 20 pounds today. Unsure when he last weighed. He does not follow a low-sodium or fluid restrictive diet very well. Patient states his blood glucose approximately 200, and has a current insulin pump. No symptoms with this as well. Suspect underlying component of CHF. Will obtain cardiac workup, procalcitonin, and reassess patient after Lasix 80 mg. Medical Records I reviewed the patient's medical records. Lab Data I reviewed the patient's lab results. 06/26/25 13:17 06/26/25 13:17 Radiology Impressions Chest X-Ray 06/26/25 12:51 IMPRESSION: Findings suggestive of mild congestive failure and/or fluid overload. Chest CTA 06/26/25 16:10 IMPRESSION: 1. No evidence of pulmonary embolism. 2. Findings suggesting at least partial component of the congestive failure and/or fluid overload; superimposed pathology including pneumonitis can not be excluded. Clinical correlation recommended. Posttreatment follow-up could be performed to exclude underlying fixed pathology if clinically warranted. 3. Cardiomegaly with moderate pericardial effusion. Laboratory Results WBC 8.80 10^3/uL (3.29-11.43) 06/26/25 13:17 RBC 2.66 10^6/uL (3.85-5.65) L 06/26/25 13:17 Hgb 8.30 g/dL (11.27-16.99) L 06/26/25 13:17 Hct 23.8 % (37-53) L 06/26/25 13:17 MCV 89.5 fl (82-101) 06/26/25 13:17 MCH 31.2 pg (27-33) 06/26/25 13: MCHC 34.9 g/dL (30-55) 06/26/25 13:17 RDW 13.0 % (12.1-15.1) 06/26/25 13:17 Plt Count 207 10^3/cmm (157-399) 06/26/25 13:17 MPV 8.9 fL (7.4-10.4) 06/26/25 13:17 Neut % (Auto) 71.2 % 06/26/25 13:17 Lymph % (Auto) 14.7 % 06/26/25 13:17 [place] % (Auto) 8.5 % 06/26/25 13:17 Eos % (Auto) 4.1 % 06/26/25 13:17 Baso % (Auto) 1.3 % 06/26/25 13:17 Neut # (Auto) 6.27 10^3/uL (1.8-7.7) 06/26/25 13:17 Lymph # (Auto) 1.3 10^3/uL (0.8-4.8) 06/26/25 13:17 [place] # (Auto) 0.8 10^3/uL (0.2-0.9) 06/26/25 13:17 Eos # (Auto) 0.4 10^3/uL (0.0-0.8) 06/26/25 13:17 Baso # (Auto) 0.1 10^3/uL (0.0-0.1) 06/26/25 13:17 Nucleated RBC % (auto) 0 % 06/26/25 13:17 Nucleated RBCs # 0.0 /100WBC 06/26/25 13:17 Sodium 137 mmol/L (136-145) 06/26/25 13:17 Potassium 3.5 mmol/L (3.5-5.1) 06/26/25 13:17 Chloride 96 mmol/L (98-107) L 06/26/25 13:17 Carbon Dioxide 28 mmol/L (22-29) 06/26/25 13:17 Anion Gap 16.5 (5-19) 06/26/25 13:17 BUN 16 mg/dL (6-20) 06/26/25 13:17 Creatinine 4.3 mg/dL (0.7-1.2) H 06/26/25 13:17 GFR Calculation 15.9 mL/min (90-130) L 06/26/25 13:17 Glucose 126 mg/dL (65-115) H 06/26/25 13:17 Calculated Osmolality 287 mOsm/kg (285-295) 06/26/25 13:17 Calcium 8.2 mg/dL (8.5-10.5) L 06/26/25 13:17 Total Bilirubin 0.6 mg/dL (0.15-1.2) 06/26/25 13:17 AST 16 U/L (0-40) 06/26/25 13:17 ALT 9 U/L (0-41) 06/26/25 13:17 Alkaline Phosphatase 97 U/L (40-130) 06/26/25 13:17 Troponin T Baseline 251 ng/L (0-15) H* 06/26/25 13:17 Troponin T 120 Minute 253.7 ng/L (0-15) H 06/26/25 15:17 Delta Troponin T 2.7 ABS# (0-10) 06/26/25 15:17 NT-Pro-B Natriuret Pep > 66388 pg/mL (0-125) H 06/26/25 13:17 Total Protein 6.1 g/dL (6.6-8.7) L 06/26/25 13:17 Albumin 3.4 g/dL (3.5-5.2) L 06/26/25 13:17 Globulin 2.7 g/dL (1.3-4.6) 06/26/25 13:17 Procalcitonin 0.33 ng/mL (0-0.5) 06/26/25 13:17 Influenza A (PCR) Negative (Negative) 06/26/25 13:27 Influenza Type B (PCR) Negative (Negative) 06/26/25 13:27 RSV (PCR) Negative (Negative) 06/26/25 13:27 SARS-CoV-2 (PCR) Negative (Negative) 06/26/25 13:27 All radiology interpretation(s) finalized by discharge EKG Data EKG 1: Interpretation: Normal sinus rhythm, normal axis, no ST segment elevation, QTc 441 EKG 2: Interpretation: Normal sinus rhythm without ST segment elevation Discharge Plan Discharge Patient Disposition: Admitted As Inpatient Admit Provider: Arden Hager Clinical Impression: Acute on chronic diastolic (congestive) heart failure, Hypertensive emergency, ESRD on hemodialysis Chest pain Qualifiers: Chest pain type: chest pain due to myocardial ischemia Ischemic chest pain type: stable angina pectoris Qualified Code(s): I20.89 - Other forms of angina pectoris DM type 1 causing renal disease Qualifiers: Diabetes mellitus complication detail: with chronic kidney disease Chronic kidney disease stage: on chronic dialysis Qualified Code(s): E10.22 - Type 1 diabetes mellitus with diabetic chronic kidney disease Condition: Stable Discharge Diet: Diabetic and Low Salt Coding Level of Care Code ED Ignition Mechanic for Chg Fwd Documented by User: Adan Reed DO 06/26/25 18:03 HPI - Chest Pain General: Chief Complaint: Chest Pain Stated Complaint: chest pain Time Seen by Provider: 06/26/25 12:44 Related Data Home Medications ?Medication ?Instructions ?Recorded ?Confirmed amlodipine 10 mg tablet 10 mg PO QAM 09/16/23 06/15/25 blood-glucose sensor (PluggedIn G7 #1 ea 10/21/23 06/15/25 Sensor device) amitriptyline 50 mg tablet 50 mg PO BEDTIME 11/06/24 06/15/25 bupropion HCl 150 mg 24 hr tablet, 150 mg PO DAILY 11/06/24 06/15/25 extended release carvedilol 25 mg tablet 25 mg PO Q12H 11/06/24 06/15/25 epinephrine 0.3 mg/0.3 mL See Rx Instructions .Route .COMPLEX 11/06/24 06/15/25 injection, auto-injector aripiprazole 5 mg tablet 5 mg PO DAILY 04/12/25 06/15/25 aspirin 81 mg tablet,delayed 81 mg PO DAILY 04/12/25 06/15/25 release atorvastatin 80 mg tablet 80 mg PO BEDTIME 04/12/25 06/15/25 gabapentin 100 mg capsule 200 mg PO TID 04/12/25 06/15/25 ondansetron 4 mg disintegrating 4 mg PO Q6H PRN nausea/emesis 04/12/25 06/15/25 tablet albuterol sulfate 90 mcg/actuation 2 puff inhalation Q6H PRN 06/15/25 06/15/25 aerosol inhaler (Ventolin HFA) Shortness Of Breath clonidine HCl 0.2 mg tablet 0.2 mg PO TID 06/15/25 06/15/25 doxazosin 4 mg tablet 4 mg PO BEDTIME 06/15/25 06/15/25 insulin glargine 100 unit/mL (3 25 unit SUBCUT BID 06/15/25 06/15/25 mL) subcutaneous pen (Lantus Solostar U-100 Insulin) insulin glargine-aglr 100 unit/mL 25 unit SUBCUT BID 06/15/25 06/15/25 (3 mL) subcutaneous pen (Rezvoglar KwikPen) isosorbide mononitrate 30 mg 30 mg PO DAILY 06/15/25 06/15/25 tablet,extended release 24 hr naloxone 4 mg/actuation nasal spray See Rx Instructions .Route .COMPLEX 06/15/25 06/15/25 oxycodone 5 mg tablet 5 mg PO Q8H PRN Pain 06/15/25 06/15/25 sevelamer carbonate 800 mg tablet 800 mg PO TID 06/15/25 06/15/25 spironolactone 25 mg tablet 25 mg PO DAILY 06/15/25 06/15/25 Previous Rx's ?Medication ?Instructions ?Recorded Intraoperative Neuromonitoring #1 ea 08/22/22 insulin syringe-needle U-100 1 mL #100 ea 06/27/23 31 gauge x 5/16 (BD Insulin Syringe Ultra-Fine) pen needle, diabetic 32 gauge x #100 ea 06/27/23 1/4 (BD Ultra-Fine Micro Pen Needle) blood sugar diagnostic (True #100 ea 10/04/23 Metrix Glucose Test Strip) blood-glucose meter (True Metrix #1 ea 10/04/23 Air Glucose Meter kit) lancets 31 gauge #100 ea 10/04/23 bumetanide 1 mg tablet 1 mg PO DAILY #30 tabs 04/14/25 hydralazine 100 mg tablet 100 mg PO BID #60 tabs 04/14/25 insulin lispro 100 unit/mL See Rx Instructions .Route 04/14/25 subcutaneous pen (Humalog KwikPen .COMPLEX #15 mL (U-100) Insulin) ferrous gluconate 324 mg (37.5 mg 324 mg PO BID #60 tabs 06/18/25 iron) tablet Allergies Allergy/AdvReac Type Severity Reaction Status Date / Time bee venom protein (honey bee) Allergy Unknown Verified 06/15/25 10:06 lisinopril Allergy Unknown Verified 06/15/25 10:06 PFSH ED PFSH: Medical History End stage renal disease on dialysis due to type 1 diabetes mellitus Chronic left-sided low back pain with left-sided sciatica Type 1 diabetes End stage renal disease on dialysis Opiate dependence Other stimulant abuse, uncomplicated Waking at night short of breath Snoring Hypersomnia Insomnia Noncompliance w/medication treatment due to intermit use of medication Schizophrenia Methamphetamine abuse Uncontrolled hypertension Family History Other CAD (coronary artery disease) Hypertension Stroke Social History Smoking and tobacco/nicotine status: current every day tobacco/nicotine user Alcohol intake: former Substance/Drug Use: former Date of last use: Amphetamines more than 62 days ago Caregiver/support person: Yes Lives independently: Yes Household members: other Current occupation: [employer] Vital Signs: Vital signs: Vital Signs Temperature 98.4 F 06/26/25 17:35 Pulse Rate 91 06/26/25 17:35 Respiratory Rate 16 06/26/25 15:05 Blood Pressure 221/119 06/26/25 17:35 Pulse Oximetry 98 06/26/25 17:35 Oxygen Delivery Me thod Nasal Cannula 06/26/25 17:35 Oxygen Flow Rate 3 06/26/25 17:35 MDM - Chest Pain Medical Decision Making Patient is a 34-year-old gentleman with history of DM, ESRD on HD, with recent NSTEMI, diastolic dysfunction, hypokinesis on recent echocardiogram, presents with I cannot take a deep breath this morning. Weight is up approximately 20 pounds today. Unsure when he last weighed. He does not follow a low-sodium or fluid restrictive diet very well. Patient states his blood glucose approximately 200, and has a current insulin pump. No symptoms with this as well. Suspect underlying component of CHF. Will obtain cardiac workup, procalcitonin, and reassess patient after Lasix 80 mg. Chart reviewed and patient discussed with midlevel. Agree with assessment and plan. Lab Data 06/26/25 13:17 06/26/25 13:17 Radiology Impressions Chest X-Ray 06/26/25 12:51 IMPRESSION: Findings suggestive of mild congestive failure and/or fluid overload. Chest CTA 06/26/25 16:10 IMPRESSION: 1. No evidence of pulmonary embolism. 2. Findings suggesting at least partial component of the congestive failure and/or fluid overload; superimposed pathology including pneumonitis can not be excluded. Clinical correlation recommended. Posttreatment follow-up could be performed to exclude underlying fixed pathology if clinically warranted. 3. Cardiomegaly with moderate pericardial effusion. Laboratory Results WBC 8.80 10^3/uL (3.29-11.43) 06/26/25 13:17 RBC 2.66 10^6/uL (3.85-5.65) L 06/26/25 13:17 Hgb 8.30 g/dL (11.27-16.99) L 06/26/25 13:17 Hct 23.8 % (37-53) L 06/26/25 13:17 MCV 89.5 fl (82-101) 06/26/25 13:17 MCH 31.2 pg (27-33) 06/26/25 13:17 MCHC 34.9 g/dL (30-55) 06/26/25 13:17 RDW 13.0 % (12.1-15.1) 06/26/25 13:17 Plt Count 207 10^3/cmm (157-399) 06/26/25 13:17 MPV 8.9 fL (7.4-10.4) 06/26/25 13:17 Neut % (Auto) 71.2 % 06/26/25 13:17 Lymph % (Auto) 14.7 % 06/26/25 13:17 [place] % (Auto) 8.5 % 06/26/25 13:17 Eos % (Auto) 4.1 % 06/26/25 13:17 Baso % (Auto) 1.3 % 06/26/25 13:17 Neut # (Auto) 6.27 10^3/uL (1.8-7.7) 06/26/25 13:17 Lymph # (Auto) 1.3 10^3/uL (0.8-4.8) 06/26/25 13:17 [place] # (Auto) 0.8 10^3/uL (0.2-0.9) 06/26/25 13:17 Eos # (Auto) 0.4 10^3/uL (0.0-0.8) 06/26/25 13:17 Baso # (Auto) 0.1 10^3/uL (0.0-0.1) 06/26/25 13:17 Nucleated RBC % (auto) 0 % 06/26/25 13:17 Nucleated RBCs # 0.0 /100WBC 06/26/25 13:17 Sodium 137 mmol/L (136-145) 06/26/25 13:17 Potassium 3.5 mmol/L (3.5-5.1) 06/26/25 13:17 Chloride 96 mmol/L (98-107) L 06/26/25 13:17 Carbon Dioxide 28 mmol/L (22-29) 06/26/25 13:17 Anion Gap 16.5 (5-19) 06/26/25 13:17 BUN 16 mg/dL (6-20) 06/26/25 13:17 Creatinine 4.3 mg/dL (0.7-1.2) H 06/26/25 13:17 GFR Calculation 15.9 mL/min (90-130) L 06/26/25 13:17 Glucose 126 mg/dL (65-115) H 06/26/25 13:17 Calculated Osmolality 287 mOsm/kg (285-295) 06/26/25 13:17 Calcium 8.2 mg/dL (8.5-10.5) L 06/26/25 13:17 Total Bilirubin 0.6 mg/dL (0.15-1.2) 06/26/25 13:17 AST 16 U/L (0-40) 06/26/25 13:17 ALT 9 U/L (0-41) 06/26/25 13:17 Alkaline Phosphatase 97 U/L (40-130) 06/26/25 13:17 Troponin T Baseline 251 ng/L (0-15) H* 06/26/25 13:17 Troponin T 120 Minute 253.7 ng/L (0-15) H 06/26/25 15:17 Delta Troponin T 2.7 ABS# (0-10) 06/26/25 15:17 NT-Pro-B Natriuret Pep > 00165 pg/mL (0-125) H 06/26/25 13:17 Total Protein 6.1 g/dL (6.6-8.7) L 06/26/25 13:17 Albumin 3.4 g/dL (3.5-5.2) L 06/26/25 13:17 Globulin 2.7 g/dL (1.3-4.6) 06/26/25 13:17 Procalcitonin 0.33 ng/mL (0-0.5) 06/26/25 13:17 Influenza A (PCR) Negative (Negative) 06/26/25 13:27 Influenza Type B (PCR) Negative (Negative) 06/26/25 13:27 RSV (PCR) Negative (Negative) 06/26/25 13:27 SARS-CoV-2 (PCR) Negative (Negative) 06/26/25 13:27 Discharge Plan Discharge Patient Disposition: Admitted As Inpatient Admit Provider: Arden Hager Clinical Impression: Acute on chronic diastolic (congestive) heart failure, Hypertensive emergency, ESRD on hemodialysis Chest pain Qualifiers: Chest pain type: chest pain due to myocardial ischemia Ischemic chest pain type: stable angina pectoris Qualified Code(s): I20.89 - Other forms of angina pectoris DM type 1 causing renal disease Qualifiers: Diabetes mellitus complication detail: with chronic kidney disease Chronic kidney disease stage: on chronic dialysis Qualified Code(s): E10.22 - Type 1 diabetes mellitus with diabetic chronic kidney disease Condition: Stable Discharge Diet: Diabetic and Low Salt Coding Level of Care Code ED Ignition Mechanic for Bessie Gaxiola
[2025-06-26] MEDS: morphine 4 mg/mL SDV 1 mL IVP ×3 (13:11→19:54)
[2025-06-26] MEDS: FUROsemide 10 mg/mL SDV 10mL 80 MG IVP (13:11)
[2025-06-26] MEDS: ondansetron 2 mg/ML SDV 2 mL 4 MG IVP ×2 (13:11→18:31)
[2025-06-26] MEDS: nitroglycerin 1 gm/inch oint Pkt 1 INCH TOPICAL (13:11)
[2025-06-26 13:29] LABS: Hematocrit 23.8 % (37-53); Hemoglobin 8.30 g/dL (11.27-16.99); Mean Corpuscular HGB Conc 34.9 g/dL (30-55); Mean Corpuscular Hemoglobin 31.2 pg (27-33); Mean Corpuscular Volume 89.5 fl (82-101); Nucleated Red Blood Cells % 0 %; Platelet Count 207 10^3/cmm (157-399); Red Blood Count 2.66 10^6/uL (3.85-5.65); White Blood Count 8.80 10^3/uL (3.29-11.43)
[2025-06-26 13:50] LABS: Troponin(5th) Baseline 251 ng/L (0-15)
[2025-06-26] MEDS: heparin drip 25,000 UNIT/500 ML PREMIX 29 UNIT IV (14:20)
[2025-06-26] MEDS: heparin 5,000 unit/mL INJ 1 mL IVP (14:21)
[2025-06-26 14:22] LABS: Respiratory Syncytial Virus Ce NEGATIVE (Negative); SARS-CoV-2 PCR NEGATIVE (Negative)
[2025-06-26 14:28] LABS: Alanine Aminotransferase 9 U/L (0-41); Albumin Level 3.4 g/dL (3.5-5.2); Alkaline Phosphatase 97 U/L (40-130); Anion Gap 16.5 (5-19); Aspartate Amino Transferase 16 U/L (0-40); Blood Urea Nitrogen 16 mg/dL (6-20); Calcium 8.2 mg/dL (8.5-10.5); Carbon Dioxide 28 mmol/L (22-29); Chloride 96 mmol/L (98-107); Creatinine Clr Calc Pharmacy 29.8560; Globulin 2.7 g/dL (1.3-4.6); Glucose 126 mg/dL (65-115); Osmolality Calculated 287 mOsm/kg (285-295); Potassium 3.5 mmol/L (3.5-5.1); Procalcitonin 0.33 ng/mL (0-0.5); Sodium 137 mmol/L (136-145); Total Protein 6.1 g/dL (6.6-8.7)
[2025-06-26 14:31] LABS: NT Pro B Type Natriuretic Pept > 35000 pg/mL (0-125)
--- NOTE | 2025-06-26 15:18 | ECG_ITS ---
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 Measurements Intervals [place] Rate: 87 P: 17 OR: 185 QRS: 19 QRSD: 108 T: 78 QT: 402 QTc: 485 Interpretive Statements SINUS RHYTHM NONSPECIFIC T-WAVE ABNORMALITY Compared to ECG 06/26/2025 12:44:11 No significant changes Electronically Signed On 06-26-2025 20:29:25 CDT by Ronald Tony M.D. [email or web address]
[2025-06-26] MEDS: nitroglycerin drip 50 MG/250 ML PREMIX IV (15:45)
[2025-06-26 15:50] LABS: Troponin 5 2HR Delta 2.7 ABS# (0-10)
[2025-06-26 15:51] LABS: Troponin 5 2HR 253.7 ng/L (0-15)
--- NOTE | 2025-06-26 16:10 | CTR_ITS ---
PROCEDURE INFORMATION: Exam: CTA Chest With Contrast Exam date and time: 06/26/2025 4:50 PM Age: 34 years old Clinical indication: Shortness of breath; Additional info: R/O pe TECHNIQUE: Imaging protocol: Computed tomographic angiography of the chest with contrast. Exam focused on the arteries. 3D rendering (Not supervised by radiologist): MIP and/or 3D reconstructed images were created by the technologist. Radiation optimization: All CT scans at this facility use at least one of these dose optimization techniques: automated exposure control; mA and/or kV adjustment per patient size (includes targeted exams where dose is matched to clinical indication); or iterative reconstruction. Contrast material: OMNI 350; Contrast volume: 65 ml; Contrast route: INTRAVENOUS (IV); COMPARISON: CT angio chest PE protcl [id number] 06/15/2025 11:01 AM RADIATION DOSE METRICS: Total DLP (mGy-cm): 485.43 FINDINGS: Pulmonary arteries: No evidence of pulmonary embolism. Pulmonary vascular congestion. Aorta: No evidence of aneurysm. Thyroid: No thyroid pathology visualized. No thyroid pathology visualized. Thymus: Unremarkable residual thymic tissue. Lungs: Patchy ground-glass opacities throughout all lobes. Interspersed ill-defined nodularity. Bilateral lower lobe atelectasis and airspace disease. Pleural spaces: Small bilateral pleural effusions. Heart: Moderate pericardial effusion. Cardiomegaly. Lymph nodes: No evidence of lymphadenopathy. Intraperitoneal space: No significant pathology in the imaged upper abdomen. Bones/joints: Mild degenerative change present in the spine. Soft tissues: Bilateral gynecomastia. CT/CT angio chest PE protcl [id number] IMPRESSION: 1. No evidence of pulmonary embolism. 2. Findings suggesting at least partial component of the congestive failure and/or fluid overload; superimposed pathology including pneumonitis can not be excluded. Clinical correlation recommended. Posttreatment follow-up could be performed to exclude underlying fixed pathology if clinically warranted. 3. Cardiomegaly with moderate pericardial effusion.
--- NOTE | 2025-06-26 16:11 | PM.HP ---
Providers/Chief Complaint Admitting Physician: Madan Primary Care Provider: Duke Alarcon Chief Complaint: chest pain History of Present Illness Hunter San is a 34 year old male with type 1 diabetes mellitus on hemodialysis Saturday awoke with crushing chest pain in his chest and shortness of breath unable to take a deep breath. He proceeded to go to hemodialysis but they stopped fdc through because of his symptomatology and he came to the emergency room. Patient describes it feels like someone is sitting on his chest and then stomping on it at times. He feels like his heart is pounding despite heart rate of 86. Recent history: Patient was admitted JuneJune 15 through June 18. He had a workup for chest pain. He had an endoscopy that was negative except for gastric retention. His heart cath was negative with no CAD. Echo on 06/15/2025 shows EF of 5055%. There was mild hypokinesia of the inferior wall. Grade 3 out of 4 diastolic dysfunction with severely elevated filling pressures.At the time of the previous admission patient was very hypertensive and required an esmolol drip. There was a concern at that time for bacteremia where he was receiving IV Vanco with the last dose on June 10. Blood and urine cultures were negative on 06 15 and 06 16 respectively Review of Systems Const: Denies: fever(s) or chills Eyes: Denies: change in vision ENMT: Denies: throat pain or nasal congestion Card: Reports: chest pain and dyspnea on exertion Resp: Reports: dyspnea; Denies: productive cough GI: Denies: abdominal pain, nausea, vomiting or change in stool character : Denies: difficulty urinating or dysuria Musc: Reports: extremity pain (Left ankle sprain a few weeks ago. Continues to be edematous) and extremity swelling; Denies: back pain Skin/Breast: Denies: rash or lesions Neuro: Denies: headache(s) or dizziness Psych: Denies: anxiety or depression Antonio/Lymph: Denies: easy bruising or easy bleeding Medications/Allergies Home Medications ?Medication ?Instructions ?Recorded ?Confirmed ?Last Taken ?Type Intraoperative Neuromonitoring #1 ea 08/22/22 06/15/25 Unknown Rx insulin syringe-needle U-100 1 mL #100 ea 06/27/23 06/15/25 Unknown Rx 31 gauge x 5/16 (BD Insulin Syringe Ultra-Fine) pen needle, diabetic 32 gauge x #100 ea 06/27/23 06/15/25 Unknown Rx 1/4 (BD Ultra-Fine Micro Pen Needle) amlodipine 10 mg tablet 10 mg PO QAM 09/16/23 06/15/25 06/15/25 History blood sugar diagnostic (True #100 ea 10/04/23 06/15/25 Unknown Rx Metrix Glucose Test Strip) blood-glucose meter (True Metrix #1 ea 10/04/23 06/15/25 Unknown Rx Air Glucose Meter kit) lancets 31 gauge #100 ea 10/04/23 06/15/25 Unknown Rx blood-glucose sensor (Dexcom G7 #1 ea 10/21/23 06/15/25 Unknown History Sensor device) amitriptyline 50 mg tablet 50 mg PO BEDTIME 11/06/24 06/15/25 06/14/25 History bupropion HCl 150 mg 24 hr tablet, 150 mg PO DAILY 11/06/24 06/15/25 06/15/25 History extended release carvedilol 25 mg tablet 25 mg PO Q12H 11/06/24 06/15/25 06/15/25 History epinephrine 0.3 mg/0.3 mL See Rx Instructions .Route .COMPLEX 11/06/24 06/15/25 Unknown History injection, auto-injector aripiprazole 5 mg tablet 5 mg PO DAILY 04/12/25 06/15/25 06/15/25 History aspirin 81 mg tablet,delayed 81 mg PO DAILY 04/12/25 06/15/25 06/15/25 History release atorvastatin 80 mg tablet 80 mg PO BEDTIME 04/12/25 06/15/25 06/14/25 History gabapentin 100 mg capsule 200 mg PO TID 04/12/25 06/15/25 06/15/25 History ondansetron 4 mg disintegrating 4 mg PO Q6H PRN nausea/emesis 04/12/25 06/15/25 Unknown History tablet bumetanide 1 mg tablet 1 mg PO DAILY #30 tabs 04/14/25 06/15/25 06/15/25 Rx hydralazine 100 mg tablet 100 mg PO BID #60 tabs 04/14/25 06/15/25 06/15/25 Rx insulin lispro 100 unit/mL See Rx Instructions .Route 04/14/25 06/15/25 06/15/25 Rx subcutaneous pen (Humalog KwikPen .COMPLEX #15 mL (U-100) Insulin) albuterol sulfate 90 mcg/actuation 2 puff inhalation Q6H PRN 06/15/25 06/15/25 Unknown History aerosol inhaler (Ventolin HFA) Shortness Of Breath clonidine HCl 0.2 mg tablet 0.2 mg PO TID 06/15/25 06/15/25 06/15/25 History doxazosin 4 mg tablet 4 mg PO BEDTIME 06/15/25 06/15/25 06/14/25 History insulin glargine 100 unit/mL (3 25 unit SUBCUT BID 06/15/25 06/15/25 06/15/25 History mL) subcutaneous pen (Lantus Solostar U-100 Insulin) insulin glargine-aglr 100 unit/mL 25 unit SUBCUT BID 06/15/25 06/15/25 Unknown History (3 mL) subcutaneous pen (Rezvoglar KwikPen) isosorbide mononitrate 30 mg 30 mg PO DAILY 06/15/25 06/15/25 06/15/25 History tablet,extended release 24 hr naloxone 4 mg/actuation nasal spray See Rx Instructions .Route .COMPLEX 06/15/25 06/15/25 Unknown History oxycodone 5 mg tablet 5 mg PO Q8H PRN Pain 06/15/25 06/15/25 Unknown History sevelamer carbonate 800 mg tablet 800 mg PO TID 06/15/25 06/15/25 06/15/25 History spironolactone 25 mg tablet 25 mg PO DAILY 06/15/25 06/15/25 06/15/25 History ferrous gluconate 324 mg (37.5 mg 324 mg PO BID #60 tabs 06/18/25 Unknown Rx iron) tablet Allergies Allergy/AdvReac Type Severity Reaction Status Date / Time bee venom protein (honey bee) Allergy Unknown Verified 06/15/25 10:06 lisinopril Allergy Unknown Verified 06/15/25 10:06 PFSH Acute PFSH: Medical History End stage renal disease on dialysis due to type 1 diabetes mellitus Chronic left-sided low back pain with left-sided sciatica Type 1 diabetes End stage renal disease on dialysis Opiate dependence Other stimulant abuse, uncomplicated Waking at night short of breath Snoring Hypersomnia Insomnia Noncompliance w/medication treatment due to intermit use of medication Schizophrenia Methamphetamine abuse Uncontrolled hypertension Family History Other CAD (coronary artery disease) Hypertension Stroke Social History Smoking and tobacco/nicotine status: current every day tobacco/nicotine user Alcohol intake: former Substance/Drug Use: former Date of last use: Amphetamines more than 62 days ago Caregiver/support person: Yes Lives independently: Yes Household members: other 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 He is in extreme discomfort. He has slowed mentation most likely for morphine administration. HEENT head is normocephalic atraumatic pupils equal round reactive to light and chondromalacia extraocular muscles are intact there is no strict icterus mucous membranes are moist and pink without lesions or exudate Neck is supple positive JVD no carotid bruits Heart is regular normal S1-S2 without loud murmur Lungs crackles fdc up on the right side and 1/4-1/[address] on the left Abdomen: Feels distended to palpation otherwise soft normal active bowel sounds Extremities left lower extremity more edematous than the right. HD fistula on right upper extremity Skin multiple tattoos on all extremities. No rashes or lesions Psych mood and affect seem appropriate I was concerned about mental slowing however nurse practitioner from the ER says he is usually normal. Back no significant kyphosis or scoliosis no CVA tenderness Data 06/26/25 13:17 06/26/25 13:17 Other Labs: BNP greater than 35,000 A&P Assessment and plan 1. Hypertensive emergency: Admission to ICU. He was to be maintained on a nitro drip. He will receive urgent hemodialysis/ultrafiltration for fluid overload 2. ESRD on hemodialysis: Chronic dialysis on Saturday. 3. DM type 1 causing renal disease: Will place on insulin protocol 4. Leg edema, left: Left leg edema for approximately 1 month it is about doubled the size of his right leg. Will order CT chest PE protocol stat 5. Acute on chronic diastolic (congestive) heart failure: Will need ultrafiltration. As patient is end-stage renal disease Plan: Patient is placed on IV heparin for chest pain. I will continue as PE is suspected. Otherwise I did do not think he requires heparin from his chest pain. I think his chest pain is due to heart strain from his massive fluid overload. Noted low platelets and will follow on heparin Cardiology has been notified of his admission and will follow. Troponins are flat although elevated due to ESRD. Also of note patient has mild to moderate pericardial effusion on echo/CT scan. Questional pericarditis. During last visit, nephrology did not think it would be related to uremia due to BUN is not very elevated. Perhaps a repeat echo would be required. PDMP PDMP Reviewed: Not Reviewed Attestations Medical Necessity Statement*: Patient requires greater than 2 midnight stay for this hypertensive urgency requiring IV medications to lower his blood pressure. He requires urgent hemodialysis and may need CVVHD. Consult placed to Dr. Mak, nephrology. Cardiology has been notified of his admission and will follow. Coding Level of Care Code Acute Code for [facility] [place] Fwd Diagnoses Hypertensive emergency I16.1 ESRD on hemodialysis N18.6; Z99.2 DM type 1 causing renal disease E10.29 Leg edema, left R60.0 Acute on chronic diastolic (congestive) heart failure I50.33
[2025-06-26] MEDS: HYDROmorphone 0.5 MG/0.5 ML INJ 1 MG IVP ×2 (16:23→22:03)
[2025-06-26] MEDS: iohexol 350 mg/mL 500 mL Btl (per mL) IV (16:53)
[2025-06-26] MEDS: heparin, porcine 1,000 unit/mL INJ 10 mL 1000 UNIT IV (17:59)
[2025-06-26] MEDS: diphenhydrAMINE 50 mg/mL SDV 1mL IVP (18:04)
--- NOTE | 2025-06-26 18:38 | PC.NURSE ---
Patient arrived to ICU 11 via stretcher. Patient transferred self to ICU bed. Patient reports he scratched the top of his head and it started bleeding. Left lower limb edema, approximately twice the size of right. Patient reports chest pain and back pain. Patient is now getting dialysis. See charted vitals. Patient states he did not bring valuables to be kept in safe.
--- NOTE | 2025-06-26 18:53 | ECG_ITS ---
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 Measurements Intervals Clarence Rate: 84 P: 25 MO: 172 QRS: 9 QRSD: 106 T: 79 QT: 425 QTc: 504 Interpretive Statements SINUS RHYTHM POSSIBLE LEFT ATRIAL ENLARGEMENT [-0.1mV P-WAVE IN V1/V2] NONSPECIFIC T-WAVE ABNORMALITY PROLONGED QT INTERVAL Compared to ECG 06/26/2025 15:18:15 Prolonged QT interval has mildly increased Electronically Signed On 06-26-2025 20:29:03 CDT by Ronald Tony M.D. [email or web address]
[2025-06-26 20:35] LABS: Troponin 5 6HR Delta 24.5 ng/L (0-12)
[2025-06-26 20:36] LABS: Partial Thromboplastin Time 70.4 SECONDS (23.9-36.7); Troponin 5 6HR 275.5 ng/L (0-15)
[2025-06-26 21:05] LABS: Glucose Urine UA 1+ (Normal); Nitrate Urine Negative (Negative); Specific Gravity, Urine 1.027 (1.005-1.030)
[2025-06-26 21:08] LABS: Add Urine Microscopic? YES
[2025-06-26 21:21] LABS: UA Slide Review UA Slide Review Perf
--- NOTE | 2025-06-26 21:41 | PM.CONSULT ---
Providers/Reason For Consult Consulting Physician/Specialty*: kommana/Nephrology Reason for Consult*: ESRD Attending Physician: Arden Hager DO Primary Care Provider: Duke Alarcon History of Present Illness History of Present Illness Hunter San is a 34 year old male With type 1 diabetes, end-stage renal disease on dialysis per Saturday schedule, underwent partial dialysis today was sent to the emergency department with chest pain and shortness of breath he was recently admitted for chest pain and had cardiac cath which was negative for any obstructive disease.. In the ER he was noted to have initial blood pressure of 250/142, on room air. Lab data significant for hemoglobin of 8.3. Chest x-ray showed vascular congestion. Review of Systems Narrative: negative Medications/Allergies Home Medications ?Medication ?Instructions ?Recorded ?Confirmed ?Last Taken ?Type Intraoperative Neuromonitoring #1 ea 08/22/22 06/15/25 Unknown Rx insulin syringe-needle U-100 1 mL #100 ea 06/27/23 06/15/25 Unknown Rx 31 gauge x 5/16 (BD Insulin Syringe Ultra-Fine) pen needle, diabetic 32 gauge x #100 ea 06/27/23 06/15/25 Unknown Rx 1/4 (BD Ultra-Fine Micro Pen Needle) amlodipine 10 mg tablet 10 mg PO QAM 09/16/23 06/15/25 06/15/25 History blood sugar diagnostic (True #100 ea 10/04/23 06/15/25 Unknown Rx Metrix Glucose Test Strip) blood-glucose meter (True Metrix #1 ea 10/04/23 06/15/25 Unknown Rx Air Glucose Meter kit) lancets 31 gauge #100 ea 10/04/23 06/15/25 Unknown Rx blood-glucose sensor (Dexcom G7 #1 ea 10/21/23 06/15/25 Unknown History Sensor device) amitriptyline 50 mg tablet 50 mg PO BEDTIME 11/06/24 06/15/25 06/14/25 History bupropion HCl 150 mg 24 hr tablet, 150 mg PO DAILY 11/06/24 06/15/25 06/15/25 History extended release carvedilol 25 mg tablet 25 mg PO Q12H 11/06/24 06/15/25 06/15/25 History epinephrine 0.3 mg/0.3 mL See Rx Instructions .Route .COMPLEX 11/06/24 06/15/25 Unknown History injection, auto-injector aripiprazole 5 mg tablet 5 mg PO DAILY 04/12/25 06/15/25 06/15/25 History aspirin 81 mg tablet,delayed 81 mg PO DAILY 04/12/25 06/15/25 06/15/25 History release atorvastatin 80 mg tablet 80 mg PO BEDTIME 04/12/25 06/15/25 06/14/25 History gabapentin 100 mg capsule 200 mg PO TID 04/12/25 06/15/25 06/15/25 History ondansetron 4 mg disintegrating 4 mg PO Q6H PRN nausea/emesis 04/12/25 06/15/25 Unknown History tablet bumetanide 1 mg tablet 1 mg PO DAILY #30 tabs 04/14/25 06/15/25 06/15/25 Rx hydralazine 100 mg tablet 100 mg PO BID #60 tabs 04/14/25 06/15/25 06/15/25 Rx insulin lispro 100 unit/mL See Rx Instructions .Route 04/14/25 06/15/25 06/15/25 Rx subcutaneous pen (Humalog KwikPen .COMPLEX #15 mL (U-100) Insulin) albuterol sulfate 90 mcg/actuation 2 puff inhalation Q6H PRN 06/15/25 06/15/25 Unknown History aerosol inhaler (Ventolin HFA) Shortness Of Breath clonidine HCl 0.2 mg tablet 0.2 mg PO TID 06/15/25 06/15/25 06/15/25 History doxazosin 4 mg tablet 4 mg PO BEDTIME 06/15/25 06/15/25 06/14/25 History insulin glargine 100 unit/mL (3 25 unit SUBCUT BID 06/15/25 06/15/25 06/15/25 History mL) subcutaneous pen (Lantus Solostar U-100 Insulin) insulin glargine-aglr 100 unit/mL 25 unit SUBCUT BID 06/15/25 06/15/25 Unknown History (3 mL) subcutaneous pen (Rezvoglar KwikPen) isosorbide mononitrate 30 mg 30 mg PO DAILY 06/15/25 06/15/25 06/15/25 History tablet,extended release 24 hr naloxone 4 mg/actuation nasal spray See Rx Instructions .Route .COMPLEX 06/15/25 06/15/25 Unknown History oxycodone 5 mg tablet 5 mg PO Q8H PRN Pain 06/15/25 06/15/25 Unknown History sevelamer carbonate 800 mg tablet 800 mg PO TID 06/15/25 06/15/25 06/15/25 History spironolactone 25 mg tablet 25 mg PO DAILY 06/15/25 06/15/25 06/15/25 History ferrous gluconate 324 mg (37.5 mg 324 mg PO BID #60 tabs 06/18/25 Unknown Rx iron) tablet Allergies Allergy/AdvReac Type Severity Reaction Status Date / Time bee venom protein (honey bee) Allergy Unknown Verified 06/15/25 10:06 lisinopril Allergy Unknown Verified 06/15/25 10:06 Current Medications Generic Name Dose Route Start Last Admin Trade Name Freq PRN Reason Stop Dose Admin Diphenhydramine HCl 50 mg 06/26/25 17:23 06/26/25 18:04 Diphenhydramine 50 Mg/Ml Sdv 1ml IVP 50 mg ONCE PRN Administration ITCHING Docusate Sodium 100 mg 06/26/25 18:00 06/26/25 18:30 Docusate Sodium 100 Mg Capsule PO 100 mg BID LILI Administration Heparin Sodium/Sodium Chloride 25,000 unit in 500 mls @ 0 mls/hr 06/26/25 14:00 06/26/25 20:53 Heparin Drip IV 14.27 unit/kg/hr CONT LILI 29 mls/hr Protocol Titration Per Protocol Nitroglycerin/Dextrose 50 mg in 250 mls @ 0 mls/hr 06/26/25 15:30 06/26/25 20:51 Nitroglycerin Drip IV 45 mcg/min .Q0M LILI 13.5 mls/hr Protocol Titration Per Protocol Morphine Sulfate 4 mg 06/26/25 17:30 06/26/25 19:54 Morphine 4 Mg/Ml Sdv 1 Ml IVP 4 mg Q1H PRN Administration SEVERE PAIN Ondansetron HCl 4 mg 06/26/25 17:35 06/26/25 18:31 Ondansetron 2 Mg/Ml Sdv 2 Ml IVP 4 mg Q6H PRN Administration NAUSEA AND VOMITING PFSH Acute PFSH: Medical History End stage renal disease on dialysis due to type 1 diabetes mellitus Chronic left-sided low back pain with left-sided sciatica Type 1 diabetes End stage renal disease on dialysis Opiate dependence Other stimulant abuse, uncomplicated Waking at night short of breath Snoring Hypersomnia Insomnia Noncompliance w/medication treatment due to intermit use of medication Schizophrenia Methamphetamine abuse Uncontrolled hypertension Family History Other CAD (coronary artery disease) Hypertension Stroke Social History Smoking and tobacco/nicotine status: current every day tobacco/nicotine user Alcohol intake: former Substance/Drug Use: former Date of last use: Amphetamines more than 62 days ago Caregiver/support person: Yes Lives independently: Yes Household members: other Current occupation: [employer] Vitals/I&O/Wt Last Vital Signs Temp 97.9 F 06/26/25 18:12 Pulse 94 06/26/25 21:20 Resp 20 H 06/26/25 18:12 BP 205/99 06/26/25 20:10 Pulse Ox 92 06/26/25 20:10 O2 Del Method Nasal Cannula 06/26/25 18:30 O2 Flow Rate 3 06/26/25 17:35 06/26/25 06/26/25 06/26/25 06:59 14:59 22:59 Intake Total 275.900 / 275.900 Balance 275.900 / 275.900 Weight last 48 hrs Weight 96.36 kg Weight 101.605 kg Physical Exam Narrative: awake , alert no distress PEERLA S1S2 RRR Lungs + crackles Abd soft , non tender Ext + edema Data 06/26/25 13:17 06/26/25 13:17 A&P Assessment and plan 1. ESRD on hemodialysis: Plan: 1. End-stage renal disease on TTS schedule, did not complete dialysis today at his dialysis center. Plan for urgent dialysis due to volume overload today, ultrafiltration up to 3.5 L as tolerated 2. Hypertensive emergency, admitted to the ICU, currently on nitro drip, reevaluate after hemodialysis done, resume home meds 3. Acute on chronic respiratory failure, multifactorial, ultrafiltration with HD as above, may require repeat hemodialysis tomorrow 4. Anemia:Will order Epogen once blood pressure is better controlled Patient evaluated using audiovisual cart. Time spent 40 minutes PDMP PDMP Reviewed: Not Reviewed Coding Level of Care Code Acute Code for [facility] Fwd Diagnoses ESRD on hemodialysis N18.6; Z99.2
[2025-06-26] MEDS: hyDRALAzine 20 mg/mL INJ 1 mL IVP (22:26)
[2025-06-27] VITALS (270 sets, daily range): BP systolic 134–234; BP diastolic 67–189; PULSE 75–126; RESP 14–16; TEMP 36.6–37.1; O2SAT 84–100
[2025-06-27] MEDS: HYDROmorphone 0.5 MG/0.5 ML INJ 1 MG IVP ×8 (00:06→19:53)
[2025-06-27 04:14] LABS: Alanine Aminotransferase 7 U/L (0-41); Albumin Level 2.9 g/dL (3.5-5.2); Alkaline Phosphatase 85 U/L (40-130); Anion Gap 11.7 (5-19); Aspartate Amino Transferase 13 U/L (0-40); Blood Urea Nitrogen 15 mg/dL (6-20); Calcium 8.2 mg/dL (8.5-10.5); Carbon Dioxide 30 mmol/L (22-29); Chloride 98 mmol/L (98-107); Globulin 3.1 g/dL (1.3-4.6); Glucose 140 mg/dL (65-115); Osmolality Calculated 285 mOsm/kg (285-295); Potassium 3.7 mmol/L (3.5-5.1); Sodium 136 mmol/L (136-145); Total Protein 6.0 g/dL (6.6-8.7)
[2025-06-27] MEDS: ondansetron 2 mg/ML SDV 2 mL 4 MG IVP ×2 (04:14→09:13)
[2025-06-27 04:17] LABS: Partial Thromboplastin Time 53.4 SECONDS (23.9-36.7)
[2025-06-27 04:27] LABS: Creatinine Clr Calc Pharmacy 30.0908
[2025-06-27] MEDS: heparin 5,000 unit/mL INJ 1 mL IVP ×2 (04:31→10:47)
[2025-06-27] MEDS: nitroglycerin drip 50 MG/250 ML PREMIX 33 MG IV (06:55)
[2025-06-27] MEDS: esmolol drip 2,500 MG/250 ML PREMIX 28.03 MG IV (07:31)
[2025-06-27] MEDS: heparin drip 25,000 UNIT/500 ML PREMIX 31 UNIT IV (07:34)
--- NOTE | 2025-06-27 08:28 | P.PN_ITS ---
Subjective 2 Subjective: Patient had severe headache with IV nitro overnight. Once nitro was stopped patient states his headache is resolved. He is feeling markedly improved today. No shortness of breath, some chest heaviness remains He reports left ankle sprain 1 to 2 weeks ago. Edema has not resolved Vitals/I&O/Wt Last Vital Signs Temp 98.6 F 06/27/25 04:30 Pulse 104 H 06/27/25 08:07 Resp 16 06/27/25 08:07 BP 214/111 06/27/25 06:20 Pulse Ox 95 06/27/25 08:07 O2 Del Method Nasal Cannula 06/27/25 08:07 O2 Flow Rate 2 06/27/25 08:07 06/26/25 06/27/25 06/27/25 22:59 06:59 14:59 Intake Total 804.250 / 804.250 404.167 / 1208.417 111.383 / 111.383 Output Total 4022 / 4022 Balance -3217.750 / -3217.750 404.167 / -2813.583 111.383 / 111.383 Weight last 48 hrs Weight 93.44 kg Weight 93.44 kg Weight 93.1 kg Weight 96.36 kg Weight 101.605 kg Physical Exam 2 Narrative: In no acute distress Heart is regular normal S1-S2 without loud murmur Lungs crackles bilaterally right greater than left but markedly improved from yesterday Abdomen: Less distended nontender normal active bowel sounds Extremities left lower extremity more edematous than the right. HD fistula on right upper extremity Data 06/26/25 13:17 06/27/25 03:01 A&P Assessment and plan 1. Hypertensive emergency: Not tolerating nitro drip due to severe headache. Changed to esmolol drip Will place a higher dose clonidine patch on the patient this morning. Resume hydralazine to 100 3 times daily Resume home dose of amlodipine 10 mg daily-this is what are less stated but I do not see that on his list from [facility] see below Holding carvedilol while on esmolol. Resume doxazosin 4 mg nightly Patient had 4 L of ultrafiltration yesterday. Discussed with Dr. 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 She will likely hold off until tomorrow for further hemodialysis/ultrafiltration. I personally reviewed the patient's medications listed on his [employer] portal. * Clonidine patch 0.2 mg change every 3 days * Coreg 25 mg twice daily * Hydralazine 100 mg 3 times daily * Imdur 30 mg every morning * Doxazosin4 mg nightl * spironolactone 50 mg every morning * Bumex 1 mg twice daily Now that his medications have been reconciled by myself personally will stop Norvasc. I will schedule Imdur to start in the morning. Will also restart spironolactone. Continue Bumex IV at double his home dose 2. ESRD on hemodialysis: Chronic dialysis on Saturday. Nephrology following 3. DM type 1 causing renal disease: Continue insulin protocol Good control on current regimen 4. Leg edema, left: Left leg edema for approximately 1 month it is about doubled the size of his right leg. CT chest negative for PE. Ordered duplex of left lower extremity to check for blood clot if no blood clot will treat for ankle sprain with Aircast and have PT or OT evaluate 5. Acute on chronic diastolic (congestive) heart failure: Will need ultrafiltration. As patient is end-stage renal disease Plan: Patient originally placed on IV heparin for chest pain. Await results of venous Doppler. PE is negative. Will hopefully DC as soon as I get results of venous duplex I think his chest pain is due to heart strain from his massive fluid overload. I was told cardiology had been notified of his admission and will follow. Troponins are flat although elevated due to ESRD. Also of note patient has mild to moderate pericardial effusion on echo/CT scan. Questional pericarditis. During last visit, nephrology did not think it would be related to uremia due to BUN is not very elevated. Perhaps a repeat echo would be required. Continue esmolol and resume most home meds. I have doubled the dose of his Bumex for now. Will restart Coreg this evening and hope to wean esmolol drip. Since patient has had extreme hypertension of systolic blood pressure greater than 200 and even 220. I recommend goal blood pressure 170-190 systolic PDMP PDMP Reviewed: Not Reviewed Attestations 2 Medical Necessity Statement*: Patient requires greater than 2 midnight stay for this hypertensive urgency requiring IV medications to lower his blood pressure. He requires urgent hemodialysis and may need CVVHD. Consult placed to Dr. Mak, nephrology. Cardiology has been notified of his admission and will follow. Coding Level of Care Code Acute Code for [facility] Fwd Diagnoses Hypertensive emergency I16.1 ESRD on hemodialysis N18.6; Z99.2 DM type 1 causing renal disease E10.29 Leg edema, left R60.0 Acute on chronic diastolic (congestive) heart failure I50.33
[2025-06-27] MEDS: bumetanide 0.25 mg/mL SDV 10 mL 2 MG IVP ×2 (09:04→20:09)
--- NOTE | 2025-06-27 09:38 | USR_ITS ---
PROCEDURE INFORMATION: Exam: US Duplex Left Lower Extremity Veins, Limited Exam date and time: 06/27/2025 11:03 AM Age: 34 years old Clinical indication: Swelling (edema) of limb; Lower extremity, left; Additional info: Left lower edema TECHNIQUE: Imaging protocol: Real-time duplex ultrasound of the left extremity with 2-D chavarria scale, color Doppler flow and spectral waveform analysis including responses to compression and other maneuvers (when performed) with image documentation. Limited exam focused on the left lower extremity veins. COMPARISON: US renal BI* [id number] 04/12/2025 6:28 PM FINDINGS: Left deep veins: Unremarkable. The common femoral, femoral, proximal profunda femoral, popliteal, posterior tibial and peroneal veins are patent without thrombus. Normal compressibility, augmentation response and Doppler waveforms. Superficial veins: Greater saphenous vein at the saphenofemoral junction is patent without thrombus. Soft tissues: Unremarkable. US/CV venous duplex [facility] [id number] IMPRESSION: No sonographic evidence of deep vein thrombosis.
--- NOTE | 2025-06-27 09:50 | P.PN_ITS ---
Subjective 2 Subjective: s/p HD yesterday with 4L UF Medications: Reviewed: Yes Vitals/I&O/Wt Last Vital Signs Temp 97.9 F 06/27/25 08:49 Pulse 101 H 06/27/25 08:45 Resp 16 06/27/25 08:07 BP 205/114 06/27/25 08:45 Pulse Ox 84 L 06/27/25 08:40 O2 Del Method Nasal Cannula 06/27/25 08:40 O2 Flow Rate 2 06/27/25 08:07 06/26/25 06/27/25 06/27/25 22:59 06:59 14:59 Intake Total 804.250 / 804.250 404.167 / 1208.417 160.436 / 160.436 Output Total 4022 / 4022 50 / 50 Balance -3217.750 / -3217.750 404.167 / -2813.583 110.436 / 110.436 Weight last 48 hrs Weight 93.44 kg Weight 93.44 kg Weight 93.1 kg Weight 96.36 kg Weight 101.605 kg Physical Exam 2 Narrative: awake , alert no distress PEERLA S1S2 RRR Lungs + crackles Abd soft , non tender Ext + edema Data 06/26/25 13:17 06/27/25 03:01 A&P Assessment and plan 1. ESRD on hemodialysis: Plan: 1. End-stage renal disease on TTS schedule, . S/P urgent dialysis due to volume overload yesterday, ultrafiltrationof 4L - Next HD in [place] 2. Hypertensive emergency, admitted to the ICU, nitro drip switched to esmolol drip , resume home meds 3. Acute on chronic respiratory failure, multifactorial, ultrafiltration with HD as above, on room air now 4. Anemia:Will order Epogen once blood pressure is better controlled Patient evaluated using audiovisual cart. Time spent 40 minutes PDMP PDMP Reviewed: Not Reviewed Attestations 2 Medical Necessity Statement*: per alejandro Coding Level of Care Code Acute Code for Chg Fwd Diagnoses ESRD on hemodialysis N18.6; Z99.2
--- NOTE | 2025-06-27 09:58 | PC.NURSE ---
Patient complains of black spots in vision, right eye, eyelid is swollen. Dr. Hager notified. Order received to monitor.
[2025-06-27 10:40] LABS: Partial Thromboplastin Time 54.4 SECONDS (23.9-36.7)
[2025-06-27] MEDS: esmolol drip 2,500 MG/250 ML PREMIX 70.08 MG IV (12:20)
[2025-06-27 12:26] LABS: Hematocrit 24.9 % (37-53); Hemoglobin 8.00 g/dL (11.27-16.99); Mean Corpuscular HGB Conc 32.1 g/dL (30-55); Mean Corpuscular Hemoglobin 30.8 pg (27-33); Mean Corpuscular Volume 95.8 fl (82-101); Nucleated Red Blood Cells % 0 %; Platelet Count 198 10^3/cmm (157-399); Red Blood Count 2.60 10^6/uL (3.85-5.65); White Blood Count 9.67 10^3/uL (3.29-11.43)
--- NOTE | 2025-06-27 12:46 | USCV_ITS ---
Jaswinder Hunter Age: 34 Gender: M : 1990 Exam Date: 06/27/2025 16:27 Ordering Phys: Ronald Tony MD ([email or web address]) Technologist: Jhonny Azar [place] [facility] [place]: chest pain BP: 119 / 114 HR: 92 Rhythm: Sinus Technical Quality: Adequate MEASUREMENTS (Male / Female) Normal Values 2D ECHO LV Diastolic Diameter PLAX 5.0 cm 4.2 - 5.9 / 3.9 - 5.3 cm IVS Diastolic Thickness 1.3 cm 0.6 - 1.0 / 0.6 - 0.9 cm IVS Systolic Thickness 1.5 cm LVPW Diastolic Thickness 1.8 cm 0.6 - 1.0 / 0.6 - 0.9 cm LVPW Systolic Thickness 2.4 cm LVOT Diameter 2.0 cm LV Ejection Fraction 2D Teich 55.6 % LV Ejection Fraction MOD 4C 64.2 % LV Ejection Fraction MOD 2C 50.7 % LV Ejection Fraction 2C AL 50.1 % LA Diameter 3.3 cm RA Systolic Volume 4C AL 48.3 ml RA Systolic Volume 4C MOD 46.6 ml LA Sys Volume AL 82.3 cm cubed LA Sys Volume Index AL 37.5 cm cubed/m squared Aorta at Sinotubular Diameter 2.1 cm IVC Diameter 1.9 cm M-MODE LA Ao Ratio MM 1.2 AV Cusp Separation MM 2.1 cm DOPPLER AV Peak Velocity 174.7 cm/s LVOT Peak Velocity 114.0 cm/s AV Area Cont Eq vti 2.2 cm squared AV Area Cont Eq pk 2.1 cm squared MV Peak Velocity 164.0 cm/s MV Area PHT 9.9 cm squared Mitral E to A Ratio 2.0 TV Peak Velocity 386.3 cm/s TR Peak Velocity 397.0 cm/s TR Peak Gradient 63.0 mmHg TR Mean Velocity 332.0 cm/s TR Mean Gradient 45.5 mmHg TR Velocity Time Integral 121.7 cm PV Peak Velocity 109.0 cm/s RV Ejection Time 0.3 s FINDINGS Left Ventricle Normal left ventricular cavity size. Normal left ventricular systolic function. Left ventricular ejection fraction is estimated at 55%. Grade II/IV diastolic dysfunction, moderately elevated filling pressures. Right Ventricle Normal right ventricular size and systolic function. Mild pulmonary hypertension. PASP 41 mmHg. Right Atrium Normal right atrial size. Left Atrium Mildly increased left atrial size. Mitral Valve Trace mitral valve regurgitation. Aortic Valve No aortic valve stenosis. No aortic valve regurgitation. Tricuspid Valve Trace tricuspid valve regurgitation. Pulmonic Valve Mild pulmonary valve regurgitation. Pericardium Small to moderate pericardial effusion, 0.6 cm along the anterior right ventricle and the lateral wall of the left ventricle, 1.4 cm posterior to the left ventricle. No echocardiographic evidence of tamponade. Aorta Normal size aortic root and proximal ascending aorta. IVC Normal inferior vena cava. CONCLUSIONS 1. Akinesis of the mid inferior wall with globally normal LV function with a EF of 55%. Akinetic segment present on prior echocardiogram. 2. Mild concentric left ventricular hypertrophy 3. Grade 2 left ventricular diastolic dysfunction 4. Mild pulmonary hypertension 5. Small to moderate pericardial effusion, 0.6 cm along the anterior right ventricle and the lateral wall of the left ventricle, 1.4 cm posterior to the left ventricle. No echocardiographic evidence of tamponade. No significant change from prior echocardiogram. Ronald Tony MD, FACC (Electronically Signed) Final Date: 27 June 2025 17:43 S
--- NOTE | 2025-06-27 12:47 | PM.CONSULT ---
Providers/Reason For Consult Consulting Physician/Specialty*: Ronald Tony MD Reason for Consult*: Chest pain, pericardial effusion Requesting Physician: Arden Hager DO Attending Physician: Arden Hager DO Primary Care Provider: Duke Alarcon History of Present Illness History of Present Illness Hunter San is a 34 year old male with h/o Type I DM, HTN, ESRD on HD, chronic intermittent chest pain for the last year, s/p [facility] 06/18/25 with no obstructive CAD. He has had a known mild to moderate size pericardial effusion dating back to 12/2024 in our system. Patient tells me his primary Cardiology team is in [place], [place]. Patient sent to [facility] ER yesterday from dialysis for hypertensive emergency with severe SOB and anterior chest pressure. Patient appeared volume overloaded and had a BP in the 200/100 range. EKG showed no acute ST-T changes. Trops were elevated at chronically elevated level. Patient received 4 L removal with ultrafiltration and was started on Nitro and heparin gtts. Noted to have LLE edema > LLE edema and venous doppler ordered. CT chest negative for pulmonary embolism. Breathing significantly improved today after volume removal. BP remains very elevated. AUGUST with the IV nitro. CP feels like a mild constant pressure per patient. Review of Systems Card: Denies: palpitations or lightheadedness Medications/Allergies Home Medications ?Medication ?Instructions ?Recorded ?Confirmed ?Last Taken ?Type Intraoperative Neuromonitoring #1 ea 08/22/22 06/27/25 Unknown Rx insulin syringe-needle U-100 1 mL #100 ea 06/27/23 06/27/25 Unknown Rx 31 gauge x 5/16 (BD Insulin Syringe Ultra-Fine) pen needle, diabetic 32 gauge x #100 ea 06/27/23 06/27/25 Unknown Rx 1/4 (BD Ultra-Fine Micro Pen Needle) amlodipine 10 mg tablet 10 mg PO QAM 09/16/23 06/27/25 06/25/25 08:00 History blood sugar diagnostic (True #100 ea 10/04/23 06/27/25 Unknown Rx Metrix Glucose Test Strip) blood-glucose meter (True Metrix #1 ea 10/04/23 06/27/25 Unknown Rx Air Glucose Meter kit) lancets 31 gauge #100 ea 10/04/23 06/27/25 Unknown Rx blood-glucose sensor (Dexcom G7 #1 ea 10/21/23 06/27/25 Unknown History Sensor device) amitriptyline 50 mg tablet 50 mg PO BEDTIME 11/06/24 06/27/25 06/24/25 20:00 History bupropion HCl 150 mg 24 hr tablet, 150 mg PO DAILY 11/06/24 06/27/25 06/25/25 09:00 History extended release carvedilol 25 mg tablet 25 mg PO Q12H 11/06/24 06/27/25 06/25/25 09:00 History epinephrine 0.3 mg/0.3 mL See Rx Instructions .Route .COMPLEX 11/06/24 06/27/25 Unknown History injection, auto-injector aripiprazole 5 mg tablet 5 mg PO DAILY 04/12/25 06/27/25 06/25/25 08:00 History aspirin 81 mg tablet,delayed 81 mg PO DAILY 04/12/25 06/27/25 06/25/25 History release atorvastatin 80 mg tablet 80 mg PO BEDTIME 04/12/25 06/27/25 06/24/25 19:00 History gabapentin 100 mg capsule 200 mg PO TID 04/12/25 06/27/25 06/25/25 09:00 History ondansetron 4 mg disintegrating 4 mg PO Q6H PRN nausea/emesis 04/12/25 06/27/25 Unknown History tablet bumetanide 1 mg tablet 1 mg PO DAILY #30 tabs 04/14/25 06/27/25 06/25/25 08:00 Rx hydralazine 100 mg tablet 100 mg PO BID #60 tabs 04/14/25 06/27/25 06/25/25 08:00 Rx insulin lispro 100 unit/mL See Rx Instructions .Route 04/14/25 06/27/25 06/15/25 Rx subcutaneous pen (Humalog KwikPen .COMPLEX #15 mL (U-100) Insulin) albuterol sulfate 90 mcg/actuation 2 puff inhalation Q6H PRN 06/15/25 06/27/25 Unknown History aerosol inhaler (Ventolin HFA) Shortness Of Breath clonidine HCl 0.2 mg tablet 0.2 mg PO TID 06/15/25 06/27/25 06/25/25 08:00 History doxazosin 4 mg tablet 4 mg PO BEDTIME 06/15/25 06/27/25 06/14/25 History insulin glargine 100 unit/mL (3 25 unit SUBCUT BID 06/15/25 06/27/25 06/15/25 History mL) subcutaneous pen (Lantus Solostar U-100 Insulin) insulin glargine-aglr 100 unit/mL 25 unit SUBCUT BID 06/15/25 06/27/25 Unknown History (3 mL) subcutaneous pen (Rezvoglar KwikPen) isosorbide mononitrate 30 mg 30 mg PO DAILY 06/15/25 06/27/25 06/25/25 08:00 History tablet,extended release 24 hr naloxone 4 mg/actuation nasal spray See Rx Instructions .Route .COMPLEX 06/15/25 06/27/25 Unknown History oxycodone 5 mg tablet 5 mg PO Q8H PRN Pain 06/15/25 06/27/25 Unknown History sevelamer carbonate 800 mg tablet 800 mg PO TID 06/15/25 06/27/25 06/15/25 History spironolactone 25 mg tablet 25 mg PO DAILY 06/15/25 06/27/25 06/25/25 09:00 History ferrous gluconate 324 mg (37.5 mg 324 mg PO BID #60 tabs 06/18/25 06/27/25 Unknown Rx iron) tablet Allergies Allergy/AdvReac Type Severity Reaction Status Date / Time bee venom protein (honey bee) Allergy Unknown Verified 06/15/25 10:06 lisinopril Allergy Unknown Verified 06/15/25 10:06 Current Medications Generic Name Dose Route Start Last Admin Trade Name Rafaelq PRN Reason Stop Dose Admin Amlodipine Besylate 10 mg 06/27/25 09:00 06/27/25 09:04 Amlodipine 10 Mg Tablet PO 10 mg DAILY LILI Administration Bumetanide 2 mg 06/27/25 08:30 06/27/25 09:04 Bumetanide 0.25 Mg/Ml Sdv 10 Ml IVP 2 mg Q12H LILI Administration Clonidine HCl 1 patch 06/27/25 07:15 06/27/25 08:31 Clonidine 0.3 Mg/24 Hr Patch TRANSDERMA 1 patch Q7D LILI Administration Diphenhydramine HCl 50 mg 06/26/25 17:23 06/26/25 18:04 Diphenhydramine 50 Mg/Ml Sdv 1ml IVP 50 mg ONCE PRN Administration ITCHING Docusate Sodium 100 mg 06/26/25 18:00 06/27/25 09:04 Docusate Sodium 100 Mg Capsule PO 100 mg BID LILI Administration Heparin Sodium (Porcine) 0 unit 06/26/25 13:53 06/27/25 10:47 Heparin 5,000 Unit/Ml Inj 1 Ml IVP 2,100 unit PRN PRN Administration Heparin Weight Based Protocol -Subsequent Bolus Protocol Hydralazine HCl 100 mg 06/27/25 09:00 06/27/25 09:04 Hydralazine 50 Mg Tablet PO 100 mg TID LILI Administration Hydromorphone HCl 1 mg 06/26/25 21:41 06/27/25 10:18 Hydromorphone 0.5 Mg/0.5 Ml Inj IVP 1 mg Q2H PRN Administration PAIN Heparin Sodium/Sodium Chloride 25,000 unit in 500 mls @ 0 mls/hr 06/26/25 14:00 06/27/25 10:46 Heparin Drip IV 16.24 unit/kg/hr CONT LILI 33 mls/hr Protocol Titration Per Protocol Nitroglycerin/Dextrose 50 mg in 250 mls @ 0 mls/hr 06/26/25 15:30 06/27/25 07:31 Nitroglycerin Drip IV 0 mcg/min .Q0M LILI 0 mls/hr Protocol Titration Per Protocol Esmolol HCl 2,500 mg in 250 mls @ 0 mls/hr 06/27/25 07:15 06/27/25 12:20 Brevibloc Drip IV 125 mcg/kg/min .Q0M LILI 70.08 mls/hr Protocol Administration Per Protocol Ondansetron HCl 4 mg 06/26/25 17:35 06/27/25 09:13 Ondansetron 2 Mg/Ml Sdv 2 Ml IVP 4 mg Q6H PRN Administration NAUSEA AND VOMITING PFSH Acute PFSH: Medical History (Updated 06/27/25 @ 13:08 by Ronald Tony MD) End stage renal disease on dialysis due to type 1 diabetes mellitus Chronic left-sided low back pain with left-sided sciatica Type 1 diabetes End stage renal disease on dialysis Opiate dependence Other stimulant abuse, uncomplicated Waking at night short of breath Snoring Hypersomnia Insomnia Noncompliance w/medication treatment due to intermit use of medication Schizophrenia Methamphetamine abuse Uncontrolled hypertension Family History Other CAD (coronary artery disease) Hypertension Stroke Social History Smoking and tobacco/nicotine status: current every day tobacco/nicotine user Alcohol intake: former Substance/Drug Use: former Date of last use: Amphetamines more than 62 days ago Caregiver/support person: Yes Lives independently: Yes Household members: other Current occupation: [employer] Vitals/I&O/Wt Last Vital Signs Temp 97.9 F 06/27/25 08:49 Pulse 93 06/27/25 12:25 Resp 16 06/27/25 08:07 BP 234/148 06/27/25 12:25 Pulse Ox 99 06/27/25 12:25 O2 Del Method Room Air 06/27/25 12:25 O2 Flow Rate 2 06/27/25 08:07 06/26/25 06/27/25 06/27/25 22:59 06:59 14:59 Intake Total 804.250 / 804.250 404.167 / 1208.417 420.120 / 420.120 Output Total 4022 / 4022 50 / 50 Balance -3217.750 / -3217.750 404.167 / -2813.583 370.120 / 370.120 Weight last 48 hrs Weight 206 lb Weight 206 lb Weight 205 lb 4.006 oz Weight 212 lb 7 oz Weight 224 lb Physical Exam Narrative: General: In no acute distress Neck: No jugular venous distention or carotid bruits Heart: Normal S1 and S2 with a regular rate and rhythm, no cardiac murmurs, no rub Lungs: Normal respiratory effort with no use of intercostal muscles, clear lungs sounds to auscultation Extremities: Mild LE edema Neuro: Alert and oriented x 3 Urinary Catheter Management: Trinh: Cath Placed During This Visit: yes Urinary Catheter Date of Insertion: 06/27/25 Urinary Catheter Time of Insertion: 09:55 Data 06/27/25 10:11 06/27/25 03:01 Other data: Echo 12/2024: Moderate concentric left ventricular hypertrophy. LV ejection fraction of 50 to 55%.. Mild hypokinesia of the inferior wall. Mildly increased left atrial size. Mild mitral valve regurgitation. Trace tricuspid valve regurgitation . Estimated pulmonary artery peak systolic pressure 41 mm of Hg. This could be an underestimation because of the poor Doppler signal Compared to the study from 12/13/2024, there may not be a significant change Multiple EKGs from 06/26/2025 personally interpreted NSR, mild nonspecific T wave abnormality, QTc prolongation A&P Assessment and plan 1. Hypertensive emergency: BP still very elevated Headache with IV nitro I agree with the multiple BP medication adjustments this am with switching IV nitro to IV esmolol, resuming home medications and increasing clonididne patch and switching esmolol to carvedilol once BP stabilizes Await response and monitoring closely 2. Acute on chronic diastolic (congestive) heart failure: Improved breathing status after 4L ultafiltration yesterday Further volume removal per Renal team 3. Elevated troponin: Chronic and due to ESRD CP not due to ACS LHC at time of elevated trop 06/18/2025 with no stenosis No need for IV heparin from cardiac standpoint 4. Chronic pericardial effusion: Dating back to atleast 12/2024, the oldest echo we have in our system Repeat limited echo to make sure no new tamponade physiology Suspect the chest pain is more related to the uncontrolled hypertension and CHF but can consider treating for pericarditis if constant CP not improved with BP control and acheiving euvolemic state. PDMP PDMP Reviewed: Not Reviewed Coding Level of Care Code 72160 Diagnoses Hypertensive emergency I16.1 Acute on chronic diastolic (congestive) heart failure I50.33 Elevated troponin R79.89 Chronic pericardial effusion I31.39
[2025-06-27] MEDS: esmolol drip 2,500 MG/250 ML PREMIX 84.1 MG IV ×3 (15:35→21:36)
[2025-06-27] MEDS: insulin glargine 100 units/1 mL 10 UNIT SUBCUT (17:24)
[2025-06-28] VITALS (131 sets, daily range): BP systolic 116–184; BP diastolic 64–114; PULSE 68–86; RESP 13–20; TEMP 36.5–36.9; O2SAT 82–100
[2025-06-28] MEDS: esmolol drip 2,500 MG/250 ML PREMIX 42.05 MG IV (02:51)
[2025-06-28 03:42] LABS: Mean Corpuscular HGB Conc 32.5 g/dL (30-55); Mean Corpuscular Hemoglobin 30.1 pg (27-33); Mean Corpuscular Volume 92.6 fl (82-101); Nucleated Red Blood Cells % 0 %; Platelet Count 183 10^3/cmm (157-399); Red Blood Count 2.16 10^6/uL (3.85-5.65); White Blood Count 4.65 10^3/uL (3.29-11.43)
[2025-06-28 04:04] LABS: Alanine Aminotransferase 7 U/L (0-41); Albumin Level 3.0 g/dL (3.5-5.2); Alkaline Phosphatase 79 U/L (40-130); Anion Gap 16.1 (5-19); Aspartate Amino Transferase 9 U/L (0-40); Blood Urea Nitrogen 20 mg/dL (6-20); Calcium 8.1 mg/dL (8.5-10.5); Carbon Dioxide 27 mmol/L (22-29); Chloride 100 mmol/L (98-107); Globulin 2.9 g/dL (1.3-4.6); Glucose 113 mg/dL (65-115); Osmolality Calculated 291 mOsm/kg (285-295); Potassium 4.1 mmol/L (3.5-5.1); Sodium 139 mmol/L (136-145); Total Protein 5.9 g/dL (6.6-8.7)
[2025-06-28 04:09] LABS: Creatinine Clr Calc Pharmacy 21.3056
[2025-06-28 04:23] LABS: Hematocrit 20.0 % (37-53); Hemoglobin 6.50 g/dL (11.27-16.99)
--- NOTE | 2025-06-28 04:44 | PC.NURSE ---
Critical labs: Lab reported Hgb of 6.5 and Hct of 20. Contacted Dr. Mares, ordered to redraw H&H with type and screen, if results still low to transfuse 1 unit during dialysis today.
[2025-06-28 05:13] LABS: Hemoglobin 6.80 g/dL (11.27-16.99)
[2025-06-28] MEDS: HYDROmorphone 0.5 MG/0.5 ML INJ 1 MG IVP ×4 (05:17→21:11)
[2025-06-28 05:38] LABS: Hematocrit 20.5 % (37-53)
[2025-06-28] MEDS: bumetanide 0.25 mg/mL SDV 10 mL 2 MG IVP (08:39)
--- NOTE | 2025-06-28 09:48 | P.PN_ITS ---
Subjective 2 Subjective: no new c/o Medications: Reviewed: Yes Vitals/I&O/Wt Last Vital Signs Temp 98.0 F 06/27/25 18:30 Pulse 74 06/28/25 09:41 Resp 16 06/28/25 09:41 BP 147/78 06/28/25 06:00 Pulse Ox 97 06/28/25 09:41 O2 Del Method Room Air 06/28/25 09:41 O2 Flow Rate 2 06/27/25 08:07 06/27/25 06/28/25 06/28/25 22:59 06:59 14:59 Intake Total 1017.117 / 1884.381 347.577 / 2231.958 Output Total 350 / 400 125 / 525 Balance 667.117 / 1484.381 222.577 / 1706.958 Weight last 48 hrs Weight 95.254 kg Weight 93.44 kg Weight 93.44 kg Weight 93.1 kg Weight 96.36 kg Weight 101.605 kg Physical Exam 2 Narrative: awake , alert no distress PEERLA S1S2 RRR Lungs + crackles Abd soft , non tender Ext + edema Urinary Catheter Management: Trinh: Cath Placed During This Visit: yes Reason for Continuing Indwelling Catheter: Accurate Measurement of Urinary Output in Critically Ill Patients Urinary Catheter Date of Insertion: 06/27/25 Urinary Catheter Time of Insertion: 09:55 Data 06/28/25 05:04 06/28/25 03:17 Micro: Microbiology 06/26/25 20:46 Urine Culture - Preliminary Urine,Clean Catch A&P Assessment and plan 1. ESRD on hemodialysis: Plan: 1. End-stage renal disease on TTS schedule, . S/P urgent dialysis due to volume overload saturday , ultrafiltrationof 4L - Next HD today 2. Hypertensive emergency, admitted to the ICU, was started nitro drip switched to esmolol drip-off now , resumed home meds - BP controlled 3. Acute on chronic respiratory failure, multifactorial, ultrafiltration with HD as above, on room air now 4. Anemia:Will order Epogen today , and plan for PRBC transfusion Patient evaluated using audiovisual cart. Time spent 40 minutes PDMP PDMP Reviewed: Not Reviewed Attestations 2 Medical Necessity Statement*: per [facility] Coding Level of Care Code Acute Code for Chg Fwd Diagnoses ESRD on hemodialysis N18.6; Z99.2
[2025-06-28] MEDS: insulin glargine 100 units/1 mL 10 UNIT SUBCUT ×2 (09:53→17:58)
--- NOTE | 2025-06-28 09:54 | P.PN_ITS ---
<Statement entered by Ronald Tony MD - 06/28/25 12:51> Patient was evaluated and cared for in conjunction with an advanced practice practitioner. I personally saw the patient and reviewed the chart and all pertinent data. I discussed the patient in detail with the advanced practice practitioner. Please see their note for complete assessment and agreed upon plan of care for the patient. Patient reports anterior chest pressure much improved after BP improved For now, no clear pericarditis and no need for NSAIDS LLE improving and LE venous doppler negative for DVT Will sign off. Please call with any further cardiac questions. Subjective 2 Subjective: Blood pressure better controlled, systolics running 150-160. Vitals/I&O/Wt Last Vital Signs Temp 98.0 F 06/27/25 18:30 Pulse 74 06/28/25 09:41 Resp 16 06/28/25 09:41 BP 147/78 06/28/25 06:00 Pulse Ox 97 06/28/25 09:41 O2 Del Method Room Air 06/28/25 09:41 O2 Flow Rate 2 06/27/25 08:07 06/27/25 06/28/25 06/28/25 22:59 06:59 14:59 Intake Total 1017.117 / 2231.958 347.577 / 2231.958 Output Total 350 / 525 125 / 525 Balance 667.117 / 1706.958 222.577 / 1706.958 Weight last 48 hrs Weight 210 lb Weight 206 lb Weight 206 lb Weight 205 lb 4.006 oz Weight 212 lb 7 oz Weight 224 lb Physical Exam 2 Const: COMMON NORMALS: no acute distress and patient oriented x3 GENERAL APPEARANCE: cooperative and comfortable ORIENTATION/CONSCIOUSNESS: Yes awake, Yes oriented to person, Yes oriented to place and Yes oriented to time Chest: COMMONS NORMALS: normal inspection of the chest and normal palpation of entire chest wall CHEST: Yes Symmetrical chest wall rise Resp: COMMON NORMALS: normal respiratory effort, No retractions, No use of accessory muscles and clear to auscultation bilaterally EFFORT & INSPECTION: Yes symmetric chest movement AUSCULTATION: clear to auscultation bilaterally Cardio: COMMON NORMALS: regular rate, regular rhythm, S1 normal heart sound present, S2 normal heart sound present, No gallops present (Cardio), No clicks present (Cardio), No murmurs present (Cardio) and No rub (Cardio) RATE: r egular rate RHYTHM: regular rhythm HEART SOUNDS: S1 normal heart sound present and S2 normal heart sound present PERIPHERAL PULSES: radial pulses present Extremity: COMMON NORMALS: no pedal edema Neuro: COMMON NORMALS: patient oriented x3 and moves all extremities S ENSORIUM/ORIENTATION: Yes oriented to person, Yes oriented to place and Yes oriented to time Urinary Catheter Management: Trinh: Cath Placed During This Visit: yes Reason for Continuing Indwelling Catheter: Accurate Measurement of Urinary Output in Critically Ill Patients Urinary Catheter Date of Insertion: 06/27/25 Urinary Catheter Time of Insertion: 09:55 Data 06/28/25 05:04 06/28/25 03:17 Micro: Microbiology 06/26/25 20:46 Urine Culture - Preliminary Urine,Clean Catch A&P Assessment and plan 1. Chest pain: 2. Hypertensive emergency: 3. Acute on chronic diastolic (congestive) heart failure: 4. Chronic pericardial effusion: 5. Type 1 diabetes: 6. ESRD on hemodialysis: 7. Anemia: Plan: Blood pressure improved. He has some chest pressure, currently undergoing dialysis. Pericardial effusion unchanged, small to moderate and not causing strain or tamponade. Will sign off. Can call with questions. PDMP PDMP Reviewed: Not Reviewed Attestations 2 Medical Necessity Statement*: per hospitalist Coding Level of Care Code Acute Code for [facility] Diagnoses Chest pain R07.9 Hypertensive emergency I16.1 Acute on chronic diastolic (congestive) heart failure I50.33 Chronic pericardial effusion I31.39 Type 1 diabetes E10.9 ESRD on hemodialysis N18.6; Z99.2 Anemia D64.9
[2025-06-28] MEDS: heparin, porcine 1,000 unit/mL INJ 10 mL 1000 UNIT IV (10:00)
[2025-06-28] MEDS: epoetin alfa-epbx 20,000 unit/ml SDV (ESRD) 20000 UNIT IVP (10:34)
--- NOTE | 2025-06-28 12:19 | PC.SOCIAL ---
IMM Updated Updated pt on IMM. No questions voiced. Provided pt a copy. Initialed, dated, & timed a copy & placed in chart.
--- NOTE | 2025-06-28 13:25 | CT_ITS ---
WS: [id number] CT HEAD NONCONTRAST HISTORY: Visual CHanges TECHNIQUE: Contiguous axial imaging performed through the brain. Bone and soft tissue windows. Sagittal and coronal reformats reviewed. All CT scans at [facility] use at least one of these dose optimization techniques: automated exposure control; mA and/or kV adjustment per patient size (includes targeted exams where dose is matched to clinical indication); or iterative reconstruction. DLP: 1073.58 mGy.cm COMPARISON: None available. No acute intracranial hemorrhage, midline shift or mass effect. No atrophy or prior infarcts or herniation. Ventricles: Normal size with no hydrocephalus. Visualized orbits and globes are negative. Paranasal sinuses: As visualized are clear. Mastoid air cells: Well pneumatized. Calvarium and scalp: Skull is intact with no soft tissue edema or swelling. CT/CT head wo con* 19773 IMPRESSION: Negative head CT.
--- NOTE | 2025-06-28 13:25 | PC.NURSE ---
Patient has reported visual changes to the nurse. He sees black spots. Patient states that this frequently happens and occurs when he has high blood pressure and it usually resolves within a few hours. But he is concerned this time and is reporting it to the nurse because it has been going on since the and hasn't went away. Nurse alerted Dr de la o and received orders for a head CT.
[2025-06-28 15:01] LABS: Hematocrit 26.2 % (37-53); Hemoglobin 8.70 g/dL (11.27-16.99)
--- NOTE | 2025-06-28 15:14 | P.PN_ITS ---
Subjective 2 Subjective: Chart reviewed. Patient is now off esmolol drip as of this morning at 6 AM. Blood pressure is currently well-controlled. Medications: Reviewed: Yes Vitals/I&O/Wt Last Vital Signs Temp 98.2 F 06/28/25 14:55 Pulse 80 06/28/25 14:55 Resp 18 06/28/25 14:55 BP 139/79 06/28/25 14:55 Pulse Ox 95 06/28/25 11:30 O2 Del Method Room Air 06/28/25 09:41 O2 Flow Rate 2 06/27/25 08:07 06/28/25 06/28/25 06/28/25 06:59 14:59 22:59 Intake Total 347.577 / 2231.958 1250 / 1250 Output Total 125 / 525 4378 / 4378 Balance 222.577 / 1706.958 -3128 / -3128 Weight last 48 hrs Weight 92.6 kg Weight 95.254 kg Weight 93.44 kg Weight 93.44 kg Weight 93.1 kg Weight 96.36 kg Physical Exam 2 Narrative: General: No acute distress, AO x3 HEENT: PERRLA, pupils bilaterally equal and reactive, pallors not present Chest: Normal vesicular breath sounds, no added sounds, equal good air entry bilaterally CVS: S1-S2 regular, no murmurs, no tachycardia, no gallops, no rubs Abdomen: Soft, nontender, no organomegaly, bowel sounds present Neuro: No focal deficits, no facial deformity, AO x3, power 5/5 in all limbs Urinary Catheter Management: Trinh: Cath Placed During This Visit: yes Reason for Continuing Indwelling Catheter: Accurate Measurement of Urinary Output in Critically Ill Patients Urinary Catheter Date of Insertion: 06/27/25 Urinary Catheter Time of Insertion: 09:55 Data 06/28/25 14:40 06/28/25 03:17 Micro: Microbiology 06/26/25 20:46 Urine Culture - Preliminary Urine,Clean Catch A&P Assessment and plan 1. Hypertensive emergency: Not tolerating nitro drip due to severe headache. Changed to esmolol drip Will place a higher dose clonidine patch on the patient this morning. Resume hydralazine to 100 3 times daily Resume home dose of amlodipine 10 mg daily-this is what are less stated but I do not see that on his list from [facility] see below Holding carvedilol while on esmolol. Resume doxazosin 4 mg nightly Patient had 4 L of ultrafiltration yesterday. Discussed with Dr. Mak, route jumper, patient showing marked clinical improvement despite continued accelerated hypertension. She will likely hold off until tomorrow for further hemodialysis/ultrafiltration. I personally reviewed the patient's medications listed on his [facility] portal. * Clonidine patch 0.2 mg change every 3 days * Coreg 25 mg twice daily * Hydralazine 100 mg 3 times daily * Imdur 30 mg every morning * Doxazosin4 mg nightl * spironolactone 50 mg every morning * Bumex 1 mg twice daily Now that his medications have been reconciled by myself personally will stop Norvasc. I will schedule Imdur to start in the morning. Will also restart spironolactone. Continue Bumex IV at double his home dose 2. ESRD on hemodialysis: Chronic dialysis on Saturday. Nephrology following 3. DM type 1 causing renal disease: Continue insulin protocol Good control on current regimen 4. Leg edema, left: Left leg edema for approximately 1 month it is about doubled the size of his right leg. CT chest negative for PE. Ordered duplex of left lower extremity to check for blood clot if no blood clot will treat for ankle sprain with Aircast and have PT or OT evaluate 5. Acute on chronic diastolic (congestive) heart failure: Will need ultrafiltration. As patient is end-stage renal disease Plan: Patient originally placed on IV heparin for chest pain. Await results of venous Doppler. PE is negative. Will hopefully DC as soon as I get results of venous duplex I think his chest pain is due to heart strain from his massive fluid overload. I was told cardiology had been notified of his admission and will follow. Troponins are flat although elevated due to ESRD. Also of note patient has mild to moderate pericardial effusion on echo/CT scan. Questional pericarditis. During last visit, nephrology did not think it would be related to uremia due to BUN is not very elevated. Perhaps a repeat echo would be required. Continue esmolol and resume most home meds. I have doubled the dose of his Bumex for now. Will restart Coreg this evening and hope to wean esmolol drip. Since patient has had extreme hypertension of systolic blood pressure greater than 200 and even 220. I recommend goal blood pressure 170-190 systolic June 28, 2025 Hunter San is a 34 year old male with past medical history of type 1 diabetes mellitus, end-stage renal disease on hemodialysis, congestive heart failure with last known EF of 45%, recent bacteremia, unknown which bacteria at this time for which he was on IV vancomycin for 2 weeks with last dose on June 10. He was recently admitted to the hospital between June 15 to June 18, 2025 after presenting here with shortness of breath. He was found to have hypertensive urgency at that time. He was able to be discharged after adjustment of his antihypertensive regimen. During hospitalization his blood culture remained negative. He was noted to have chronic anemia which was thought to be related to CKD. Upper GI endoscopy ruled out a GI bleed. He received 2 units of blood transfusion on the last admission. Cardiac angiogram was performed on June 18 which showed normal coronaries.He presented to the emergency room on June 26, 2025 due to inability to take deep breaths and feeling short of breath. He described chest pressure while undergoing dialysis and was sent into the emergency room. CTA of the chest has ruled out a pulmonary embolism. Cardiomegaly was noted with moderate pericardial effusion. Echocardiogram showed akinesis of the mid inferior wall with globally normal LV function and EF of 55%. Akinetic segment was unchanged compared to previous admission. There was grade 2 diastolic dysfunction and evidence of mild pulmonary hypertension. There were no signs of tamponade. This effusion appears to be chronic since at least December 2024. Cardiology service has been consulted, appreciate recommendations. Patient has very little urine output chronically. Currently has made about 425 cc in the Trinh catheter. Will discontinue Trinh today to minimize risk of a UTI. Discontinue IV Bumex. Majority of his fluid output is by way of dialysis at this present time. Patient reports a past history of IV drug use, has not used in over 2 years. Hepatitis C and HIV screen screen was negative on last admission. Current hospital course has additionally been complicated by hypertensive urgency. He was on an esmolol drip which has been discontinued this morning. Will continue his oral medications including hydralazine 100 mg 3 times daily, clonidine patch, Imdur at this time. Amlodipine has been discontinued. Currently blood pressure is 139/79 at the time of this assessment. If needed will add nifedipine next. If patient is able to remain off of continuous infusion to maintain blood pressure may be able to be discharged in the upcoming 24 hours. Etiology of his pericardial effusion is not yet clear. Requested records from [facility] where he was recently treated for bacteremia. Patient reports significant back pain as well. If the recent bacteremia was with gram-positive cocci such as Staph aureus or Enterococcus, may need further evaluation to evaluate for hardware infection in the lumbar spine. Transferred to cardiac stepdown PDMP PDMP Reviewed: Not Reviewed Attestations 2 Medical Necessity Statement*: Discontinued esmolol drip, overlap with oral antihypertensives. Obtain records from [facility]. Coding Level of Care Code Acute Code for Chg Fwd Diagnoses Hypertensive emergency I16.1 ESRD on hemodialysis N18.6; Z99.2 DM type 1 causing renal disease E10.22; N18.6; Z99.2 Chronic kidney disease stage: on chronic dialysis Diabetes mellitus complication detail: with chronic kidney disease Leg edema, left R60.0 Acute on chronic diastolic (congestive) heart failure I50.33
[2025-06-29] VITALS (7 sets, daily range): BP systolic 121–147; BP diastolic 64–81; PULSE 69–78; RESP 13–16; TEMP 36.5–37; O2SAT 94–97; BMI 29.9
[2025-06-29] MEDS: HYDROmorphone 0.5 MG/0.5 ML INJ 1 MG IVP ×5 (02:30→16:09)
[2025-06-29] MEDS: lactulose oral liq 20 gm/30 mL UDC PO (02:31)
[2025-06-29 03:33] LABS: Hematocrit 23.6 % (37-53); Hemoglobin 7.70 g/dL (11.27-16.99); Mean Corpuscular HGB Conc 32.6 g/dL (30-55); Mean Corpuscular Hemoglobin 30.8 pg (27-33); Mean Corpuscular Volume 94.4 fl (82-101); Nucleated Red Blood Cells % 0 %; Platelet Count 174 10^3/cmm (157-399); Red Blood Count 2.50 10^6/uL (3.85-5.65); White Blood Count 6.61 10^3/uL (3.29-11.43)
[2025-06-29 03:53] LABS: Alanine Aminotransferase 7 U/L (0-41); Albumin Level 3.2 g/dL (3.5-5.2); Alkaline Phosphatase 85 U/L (40-130); Anion Gap 16.6 (5-19); Aspartate Amino Transferase 12 U/L (0-40); Blood Urea Nitrogen 25 mg/dL (6-20); Calcium 8.0 mg/dL (8.5-10.5); Carbon Dioxide 26 mmol/L (22-29); Chloride 98 mmol/L (98-107); Creatinine Clr Calc Pharmacy 21.9782; Globulin 3.0 g/dL (1.3-4.6); Glucose 144 mg/dL (65-115); Osmolality Calculated 289 mOsm/kg (285-295); Potassium 4.6 mmol/L (3.5-5.1); Sodium 136 mmol/L (136-145); Total Protein 6.2 g/dL (6.6-8.7)
[2025-06-29] MEDS: insulin glargine 100 units/1 mL 10 UNIT SUBCUT (08:32)
--- NOTE | 2025-06-29 11:38 | PC.NURSE ---
Per Dr. Arambula patient may be discharged prior to receiving records from [facility]. Patient does need to have dialysis prior to discharge.
--- NOTE | 2025-06-29 12:17 | PC.NURSE ---
Patient left the unit for dialysis at 1205.
[2025-06-29] MEDS: diphenhydrAMINE 50 mg/mL SDV 1mL IVP (12:27)
--- NOTE | 2025-06-29 13:41 | PM.DCS ---
Discharge Providers Date of Admission: 06/26/25 15:57 Date of Discharge: June 29, 2025 Attending Provider at Admission: Arden Hager DO Attending Provider at Discharge: Tete Arambula MD Primary Care Provider: Duke Alarcon Diagnoses at Discharge Discharge Diagnosis 1. Hypertensive emergency: 2. ESRD on hemodialysis: 3. DM type 1 causing renal disease: 4. Leg edema, left: 5. Acute on chronic diastolic (congestive) heart failure: Reason for Visit Reason for Visit: chest pain Hospital Course Hospital Course Hunter San is a 34 year old male with past medical history of type 1 diabetes mellitus, end-stage renal disease on hemodialysis, congestive heart failure with last known EF of 45%, recent bacteremia, unknown which bacteria at this time for which he was on IV vancomycin for 2 weeks with last dose on June 10. He was recently admitted to the hospital between June 15 to June 18, 2025 after presenting here with shortness of breath. He was found to have hypertensive urgency at that time. He was able to be discharged after adjustment of his antihypertensive regimen. During hospitalization his blood culture remained negative. He was noted to have chronic anemia which was thought to be related to CKD. Upper GI endoscopy ruled out a GI bleed. He received 2 units of blood transfusion on the last admission. Cardiac angiogram was performed on June 18 which showed normal coronaries.He presented to the emergency room on June 26, 2025 due to inability to take deep breaths and feeling short of breath. He described chest pressure while undergoing dialysis and was sent into the emergency room. CTA of the chest ruled out a pulmonary embolism. Cardiomegaly was noted with moderate pericardial effusion. Echocardiogram showed akinesis of the mid inferior wall with globally normal LV function and EF of 55%. Akinetic segment was unchanged compared to previous admission. There was grade 2 diastolic dysfunction and evidence of mild pulmonary hypertension. There were no signs of tamponade. This effusion appears to be chronic since at least December 2024. Cardiology service has been consulted, appreciate recommendations. Patient reports a past history of IV drug use, has not used in over 2 years. Hepatitis C and HIV screen screen was negative on last admission. Current hospital course was complicated by hypertensive urgency. He was on an esmolol drip which has been discontinued on 06/28. He is on hydralazine 100 mg 3 times daily, clonidine patch, Imdur at this time. Amlodipine has been discontinued due to lower extremity swelling. Currently blood pressure is 123/81 mmhg at the time of this assessment. Recommended to maintain BP charting. Requested records from [facility] where he was recently treated for bacteremia., not yet obtained. He is being discharged in stable to improved condition. He complained of visual field defects over the past 8 days, states he sees semi lunar shaped black spots in his right eye along with reduced vision. CT head did not show any stroke. He has a known history of diabetic retinopathy for which he follows with opthalmology at [place] Dr. Servin. His next appointment is on July 07, they are unable to accomodate a sooner appointment. We requested a sooner appt additionally at Dr. Ny [facility] locally. Physical Exam Narrative: General: No acute distress, AO x3 HEENT: PERRLA, pupils bilaterally equal and reactive, pallors not present Chest: Normal vesicular breath sounds, no added sounds, equal good air entry bilaterally CVS: S1-S2 regular, no murmurs, no tachycardia, no gallops, no rubs Abdomen: Soft, nontender, no organomegaly, bowel sounds present Neuro: No focal deficits, no facial deformity, AO x3, power 5/5 in all limbs Urinary Catheter Management: Trinh: Cath Placed During This Visit: yes, but has since been removed by the nurse Reason for Continuing Indwelling Catheter: Decision to DC Catheter Urinary Catheter Date of Insertion: 06/27/25 Urinary Catheter Time of Insertion: 09:55 Date Urinary Catheter Removed: 06/28/25 Time Urinary Catheter Discontinued: 12:00 Discharge Data Studies Completed and Pending Completed Studies During Hospitalization Category Date Time Status CT head wo con* [id number] Routine Cat Scan 06/28/25 13:25 Completed CTA chest [CT angio chest PE protcl [id number]] Stat Cat Scan 06/26/25 16:10 Completed XR chest 1V portable [id number] Stat Exams 06/26/25 12:51 Completed CV. echo complete* [id number] Routine Ultrasound 06/27/25 12:46 Completed US venous duplex lower extremity LT [CV venous duplex Ultrasound 06/27/25 09:38 [place] [id number]] Routine Radiology Impressions Chest X-Ray 06/26/25 12:51 IMPRESSION: Findings suggestive of mild congestive failure and/or fluid overload. Chest CTA 06/26/25 16:10 IMPRESSION: 1. No evidence of pulmonary embolism. 2. Findings suggesting at least partial component of the congestive failure and/or fluid overload; superimposed pathology including pneumonitis can not be excluded. Clinical correlation recommended. Posttreatment follow-up could be performed to exclude underlying fixed pathology if clinically warranted. 3. Cardiomegaly with moderate pericardial effusion. Venous Duplex 06/27/25 09:38 IMPRESSION: No sonographic evidence of deep vein thrombosis. Head CT 06/28/25 13:25 IMPRESSION: Negative head CT. Laboratory Results WBC 6.61 10^3/uL (3.29-11.43) 06/29/25 02:45 RBC 2.50 10^6/uL (3.85-5.65) L 06/29/25 02:45 Hgb 7.70 g/dL (11.27-16.99) L 06/29/25 02:45 Hct 23.6 % (37-53) L 06/29/25 02:45 MCV 94.4 fl (82-101) 06/29/25 02:45 MCH 30.8 pg (27-33) 06/29/25 02:45 MCHC 32.6 g/dL (30-55) 06/29/25 02:45 RDW 13.2 % (12.1-15.1) 06/29/25 02:45 Plt Count 174 10^3/cmm (157-399) 06/29/25 02:45 MPV 9.7 fL (7.4-10.4) 06/29/25 02:45 Neut % (Auto) 59.3 % 06/29/25 02:45 Lymph % (Auto) 27.4 % 06/29/25 02:45 [place] % (Auto) 7.3 % 06/29/25 02:45 Eos % (Auto) 4.2 % 06/29/25 02:45 Baso % (Auto) 1.5 % 06/29/25 02:45 Neut # (Auto) 3.92 10^3/uL (1.8-7.7) 06/29/25 02:45 Lymph # (Auto) 1.8 10^3/uL (0.8-4.8) 06/29/25 02:45 [place] # (Auto) 0.5 10^3/uL (0.2-0.9) 06/29/25 02:45 Eos # (Auto) 0.3 10^3/uL (0.0-0.8) 06/29/25 02:45 Baso # (Auto) 0.1 10^3/uL (0.0-0.1) 06/29/25 02:45 Nucleated RBC % (auto) 0 % 06/29/25 02:45 Nucleated RBCs # 0.0 /100WBC 06/29/25 02:45 APTT 54.4 SECONDS (23.9-36.7) H 06/27/25 10:11 Sodium 136 mmol/L (136-145) 06/29/25 02:45 Potassium 4.6 mmol/L (3.5-5.1) 06/29/25 02:45 Chloride 98 mmol/L (98-107) 06/29/25 02:45 Carbon Dioxide 26 mmol/L (22-29) 06/29/25 02:45 Anion Gap 16.6 (5-19) 06/29/25 02:45 BUN 25 mg/dL (6-20) H 06/29/25 02:45 Creatinine 5.6 mg/dL (0.7-1.2) H* 06/29/25 02:45 GFR Calculation 11.7 mL/min (90-130) L 06/29/25 02:45 Glucose 144 mg/dL (65-115) H 06/29/25 02:45 POC Glucose 214 mg/dL (70-110) H 06/28/25 16:13 Calculated Osmolality 289 mOsm/kg (285-295) 06/29/25 02:45 Calcium 8.0 mg/dL (8.5-10.5) L 06/29/25 02:45 Total Bilirubin 0.3 mg/dL (0.15-1.2) 06/29/25 02:45 AST 12 U/L (0-40) 06/29/25 02:45 ALT 7 U/L (0-41) 06/29/25 02:45 Alkaline Phosphatase 85 U/L (40-130) 06/29/25 02:45 Troponin T Baseline 251 ng/L (0-15) H* 06/26/25 13:17 Troponin T 120 Minute 253.7 ng/L (0-15) H 06/26/25 15:17 Delta Troponin T 2.7 ABS# (0-10) 06/26/25 15:17 Troponin T Hi Sens 6Hr 275.5 ng/L (0-15) H 06/26/25 20:08 Troponin T Hi Sens 6Hr Delta 24.5 ng/L (0-12) H* 06/26/25 20:08 NT-Pro-B Natriuret Pep > 96818 pg/mL (0-125) H 06/26/25 13:17 Total Protein 6.2 g/dL (6.6-8.7) L 06/29/25 02:45 Albumin 3.2 g/dL (3.5-5.2) L 06/29/25 02:45 Globulin 3.0 g/dL (1.3-4.6) 06/29/25 02:45 Procalcitonin 0.33 ng/mL (0-0.5) 06/26/25 13:17 Urine Color Yellow (Yellow) 06/26/25 20:46 Urine Appearance Clear (CLEAR) 06/26/25 20:46 Urine pH 8.0 (5-7) A 06/26/25 20:46 Ur Specific [place] 1.027 (1.005-1.030) 06/26/25 20:46 Urine Protein 4+ (Negative) A 06/26/25 20:46 Urine Glucose (UA) 1+ (Normal) H 06/26/25 20:46 Urine Ketones Negative (Negative) 06/26/25 20:46 Urine Blood 1+ (Negative) A 06/26/25 20:46 Urine Nitrate Negative (Negative) 06/26/25 20:46 Urine Bilirubin Negative (Negative) 06/26/25 20:46 Urine Urobilinogen 0.2 mg/dL (Negative) 06/26/25 20:46 Ur Leukocyte Esterase Negative (Negative) 06/26/25 20:46 Urine RBC 51-100 /hpf (0-2) H 06/26/25 20:46 Urine WBC 6-10 /hpf (0-5) 06/26/25 20:46 Ur Squamous Epith Cells 0-5 /hpf (0-5) 06/26/25 20:46 Amorphous Sediment Not Reportable 06/26/25 20:46 Urine Bacteria None seen /hpf (NONE) 06/26/25 20:46 Hyaline Casts 33.49 /lpf 06/26/25 20:46 Influenza A (PCR) Negative (Negative) 06/26/25 13:27 Influenza Type B (PCR) Negative (Negative) 06/26/25 13:27 RSV (PCR) Negative (Negative) 06/26/25 13:27 SARS-CoV-2 (PCR) Negative (Negative) 06/26/25 13:27 Blood Type O Positive 06/28/25 05:04 Rho(D) Type Rh positive 06/28/25 05:04 Antibody Screen Negative 06/28/25 05:04 Crossmatch See Detail 06/28/25 05:04 Vitals Last Vital Signs Temp 98.1 F 06/29/25 12:28 Pulse 71 06/29/25 12:28 Resp 16 06/29/25 12:28 BP 123/81 06/29/25 12:28 Pulse Ox 96 06/29/25 11:00 O2 Del Method Room Air 06/29/25 11:00 O2 Flow Rate 2 06/27/25 08:07 Discharge Plan Discharge Patient Disposition: Home Condition: Stable Prescriptions: New duloxetine 30 mg Capsule,Delayed Release(Dr/Ec) 30 mg PO DAILY 30 Days Qty: 30 0RF Continued (DME) blood-glucose meter [True Metrix Air Glucose Meter] Kit See Rx Instructions .Route Qty: 1 0RF Rx Instructions: As directed (DME) True Metrix Glucose Test Strip Strip See Rx Instructions .Route Qty: 100 0RF Rx Instructions: As directed (DME) lancets 31 gauge misc See Rx Instructions .Route Qty: 100 0RF Rx Instructions: As directed (DME) Dexcom G7 Sensor Device See Rx Instructions .ROUTE .MEDSUPPLY Qty: 1 Rx Instructions: As directed (DME) Intraoperative Neuromonitoring See Rx Instructions .Route .MEDSUPPLY Qty: 1 0RF Rx Instructions: As directed (DME) pen needle, diabetic [BD Ultra-Fine Micro Pen Needle] 32 gauge x 1/4 needle See Rx Instructions .ROUTE .MEDSUPPLY Qty: 100 3RF Rx Instructions: As directed (DME) insulin syringe-needle U-100 [BD Insulin Syringe Ultra-Fine] 1 mL 31 gauge x 5/16 syringe See Rx Instructions .ROUTE .COMPLEX Qty: 100 1RF Dose Instruction: DIRECTED Rx Instructions: DIRECTED carvedilol 25 mg Tablet 25 mg PO Q12H Rx Instructions: must administer with a meal/food amitriptyline 50 mg tablet 50 mg PO BEDTIME epinephrine 0.3 mg/0.3 mL auto-injector See Rx Instructions .ROUTE .COMPLEX Rx Instructions: INJECT 0.3 INTRAMUSCULARLY ONCE DAILY NEEDED FOR ANAPHYLAXIS bupropion HCl 150 mg tablet extended release 24 hr 150 mg PO DAILY atorvastatin 80 mg tablet 80 mg PO BEDTIME aspirin 81 mg tablet,delayed release (DR/EC) 81 mg PO DAILY gabapentin 100 mg capsule 200 mg PO TID ondansetron 4 mg tablet,disintegrating 4 mg PO Q6H PRN (Reason: nausea/emesis) aripiprazole 5 mg tablet 5 mg PO DAILY hydralazine 100 mg tablet 100 mg PO BID Qty: 60 0RF bumetanide 1 mg tablet 1 mg PO DAILY Qty: 30 0RF insulin lispro [Humalog KwikPen Insulin] 100 unit/mL insulin pen See Rx Instructions .ROUTE .COMPLEX Qty: 15 0RF Rx Instructions: Inject 6 units 3 times daily plus MEDIUM dose sliding scale. Less than/equal to 70 treat hypoglycemia per nursing protocol. 71-119 No additional insulin. 120-150 2 units. 151-200 4 units. 201-250 6 units. 251-300 8 units. 301-350 10 units. Greater than 351 12 units. isosorbide mononitrate 30 mg tablet extended release 24 hr 30 mg PO DAILY spironolactone 25 mg tablet 25 mg PO DAILY clonidine HCl 0.2 mg tablet 0.2 mg PO TID doxazosin 4 mg tablet 4 mg PO BEDTIME albuterol sulfate [Ventolin HFA] 90 mcg/actuation HFA aerosol inhaler 2 puff INHALATION Q6H PRN (Reason: Shortness Of Breath) oxycodone 5 mg tablet 5 mg PO Q8H PRN (Reason: Pain) sevelamer carbonate 800 mg tablet 800 mg PO TID naloxone 4 mg/actuation spray,non-aerosol See Rx Instructions .ROUTE .COMPLEX Rx Instructions: EMERGENCY USE ONLY. ADMINISTER 1 SPRAY (4MG) IN ONE NOSTRIL ONE TIME. MAY REPEAT IN ALTERNATING NOSTRILS EVERY 2-3 MINUTES UNTIL RESPONSIVE OR EMS ARRIVES. insulin glargine [Lantus Solostar U-100 Insulin] 100 unit/mL (3 mL) insulin pen 25 unit SUBCUT BID ferrous gluconate 324 mg (37.5 mg iron) tablet 324 mg PO BID Qty: 60 0RF Discontinued amlodipine 10 mg tablet 10 mg PO QAM Zaida ViieraPen 100 unit/mL (3 mL) insulin pen 25 unit SUBCUT BID Discharge Order = DC NOW: Discharge Order (Routine); Ordered 06/29/25 Ordered By: Tete Arambula Referrals: Duke Alarcon [Primary Care Provider, [facility]] - 07/05/25 11:20 am Referral Note: hospital discharge follow up with Deysi Smith,Gerson Castillo DO [Provisional Staff, Opthalmology] - 07/02/25 8:30 am Discharge Diet: Diabetic and Low Salt Patient Instructions: Duloxetine (By mouth), Chronic Kidney Disease (DC), Hypertensive Crisis (DC), Diabetes Type 1: Management (GEN), Chest Pain Stoplight, Opioid Safety, Patient Portal & Penny Instructions Discharge Attestations Time Spent in Discharge Care*: greater than 30 min Status at Discharge: Cognitive status at discharge: cognitively intact, Behavioral status at discharge: cooperative, Quality Metrics Clinical Quality Measures [ No reported AMI, CVA or VTE this stay] Coding Level of Care Code Acute Code for Chg Fwd Diagnoses Hypertensive emergency I16.1 ESRD on hemodialysis N18.6; Z99.2 DM type 1 causing renal disease E10.22; N18.6; Z99.2 Chronic kidney disease stage: on chronic dialysis Diabetes mellitus complication detail: with chronic kidney disease Leg edema, left R60.0 Acute on chronic diastolic (congestive) heart failure I50.33
--- NOTE | 2025-06-29 15:47 | PC.NURSE ---
Patient back on CSU from dialysis at 1548.
--- NOTE | 2025-06-29 18:22 | P.PN_ITS ---
Subjective 2 Subjective: no new c/o Medications: Reviewed: Yes Vitals/I&O/Wt Last Vital Signs Temp 98.6 F 06/29/25 15:35 Pulse 78 06/29/25 15:35 Resp 16 06/29/25 15:35 BP 147/80 06/29/25 15:35 Pulse Ox 96 06/29/25 11:00 O2 Del Method Room Air 06/29/25 11:00 O2 Flow Rate 2 06/27/25 08:07 06/29/25 06/29/25 06/29/25 06:59 14:59 22:59 Intake Total 720 / 720 300 / 1020 Output Total 3301 / 3301 Balance 720 / 720 -3001 / -2281 Weight last 48 hrs Weight 108.7 kg Weight 100.199 kg Weight 92.6 kg Weight 95.254 kg Physical Exam 2 Narrative: awake , alert no distress PEERLA S1S2 RRR Lungs + crackles Abd soft , non tender Ext + edema Urinary Catheter Management: Trinh: Cath Placed During This Visit: yes, but has since been removed by the nurse Reason for Continuing Indwelling Catheter: Decision to DC Catheter Urinary Catheter Date of Insertion: 06/27/25 Urinary Catheter Time of Insertion: 09:55 Date Urinary Catheter Removed: 06/28/25 Time Urinary Catheter Discontinued: 12:00 Data 06/29/25 02:45 06/29/25 02:45 Micro: Microbiology 06/26/25 20:46 Urine Culture - Final Urine,Clean Catch A&P Assessment and plan 1. ESRD on hemodialysis: Plan: 1. End-stage renal disease on TTS schedule, . S/P urgent dialysis due to volume overload saturday , ultrafiltrationof 4L - Next HD today 2. Hypertensive emergency, admitted to the ICU, was started nitro drip switched to esmolol drip-off now , resumed home meds - BP controlled 3. Acute on chronic respiratory failure, multifactorial, ultrafiltration with HD as above, on room air now 4. Anemia:Will order Epogen today , and plan for PRBC transfusion Patient evaluated using audiovisual cart. Time spent 40 minutes PDMP PDMP Reviewed: Not Reviewed Attestations 2 Medical Necessity Statement*: per medicien Coding Level of Care Code Acute Code for Chg Fwd Diagnoses ESRD on hemodialysis N18.6; Z99.2
== END 2025-06-29 16:30 | disposition home or self-care (01) | DRG 291 ==
LOC: ER 15:59 → ICU 16:22 → CSU 06-28 22:07
PROVIDERS: Internal Medicine; Admitting Provider Internal Medicine; Emergency Provider Physician Assistant; PCP Family Medicine; Visit Provider Student in an Organized Health Care Education/Training Program
DX: I13.2 Hypertensive heart and chronic kidney disease with heart failure and with stage 5 chronic kidney disease, or end stage renal disease (principal); I50.33 Acute on chronic diastolic (congestive) heart failure; N18.6 End stage renal disease; J96.20 Acute and chronic respiratory failure, unspecified whether with hypoxia or hypercapnia; I16.1 Hypertensive emergency; E10.22 Type 1 diabetes mellitus with diabetic chronic kidney disease; F17.200 Nicotine dependence, unspecified, uncomplicated; Z99.2 Dependence on renal dialysis; Z79.4 Long term (current) use of insulin; R60.0 Localized edema; I27.20 Pulmonary hypertension, unspecified; F15.11 Other stimulant abuse, in remission; E10.319 Type 1 diabetes mellitus with unspecified diabetic retinopathy without macular edema; Z82.49 Family history of ischemic heart disease and other diseases of the circulatory system; Z82.3 Family history of stroke; D63.1 Anemia in chronic kidney disease; G89.29 Other chronic pain; R79.89 Other specified abnormal findings of blood chemistry; G44.40 Drug-induced headache, not elsewhere classified, not intractable; T46.3X5A Adverse effect of coronary vasodilators, initial encounter; Y92.239 Unspecified place in hospital as the place of occurrence of the external cause; M54.42 Lumbago with sciatica, left side; Z79.82 Long term (current) use of aspirin; Z79.891 Long term (current) use of opiate analgesic; F20.9 Schizophrenia, unspecified; E87.70 Fluid overload, unspecified; S93.402D Sprain of unspecified ligament of left ankle, subsequent encounter; X58.XXXD Exposure to other specified factors, subsequent encounter
CPT/HCPCS: 36415; 36416; 36430; 51702; 70450; 71045; 71275; 80053; 81001; 82962; 83880; 84145; 84484; 85014; 85018; 85025; 85730; 86850; 86900; 86920; 87086; 87637; 90935; 93005; 93306; 93971; 94664; 96365; 96366; 96372; 96375; 96376; 99285; J0360; J1171; J1200; J1644; J1815; J1938; J2270; J2405; J3490; J9999; P9016; Q3014; Q5105

== ENCOUNTER 2025-09-18 10:13 | Inpatient (IN) | payer MEDICARE, MEDICAID, SELFPAY ==
[2025-09-18] VITALS (38 sets, daily range): BP systolic 152–225; BP diastolic 77–121; PULSE 75–106; RESP 8–25; TEMP 36.6–36.9; O2SAT 89–100; BMI 29.8; BMI 26.4
--- NOTE | 2025-09-18 10:16 | XRR_ITS ---
PROCEDURE INFORMATION: Exam: XR Chest Exam date and time: 09/18/2025 10:45 AM Age: 34 years old Clinical indication: Pain; Chest pressure; Additional info: Chest pain TECHNIQUE: Imaging protocol: Radiologic exam of the chest. Views: 1 view. COMPARISON: CT angio chest PE protcl [id number] 06/26/2025 4:50 PM FINDINGS: Lungs: No significant pulmonary pathology. Pleural spaces: No pleural effusion. Heart/Mediastinum: Mildly increased cardiac silhouette again noted. 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 XR/XR chest 1V portable [id number] IMPRESSION: No acute pulmonary pathology. Increased cardiac silhouette again noted.
--- OUTSIDE RECORDS SUMMARY | 2025-09-18 10:19 | XMS_ITS | Clinical Summary ---
Author Organization [facility] Address [address] [facility], [facility] [address] [place] [address] Phone Care Team Providers Care Brain Wave Technician Name Role Phone Duke Alarcon MD Primary Care Provider [phone] Allergies Active Allergy Reactions Criticality Noted Date [...] needed for Anaphylaxis. 1 Each 024 Active aspirin (ECOTRIN EC) 81 mg Tablet, Delayed Release (E.C.) Take 1 Tablet (81 mg) by mouth daily. 30 Tablet 025 Active ondansetron (ZOFRAN ODT) 4 mg Tablet, Rapid Dissolve DISSOLVE 1 TABLET IN MOUTH EVERY 6 HOURS NEEDED FOR NAUSEA / EMESIS. DISSOLVE TABLET ON TOP OF TONGUE,THEN SWALLOW WITH SALIVA 025 Active naloxone (NARCAN) 4 mg/spray [place], Non-Aerosol EMERGENCY USE ONLY: Administer 1 spray (4 mg) in one nostril one time. May repeat in alternating nostrils every 2-3 min until responsive or EMS arrives. 2 Each 3 Active lidocaine-transp arent dressing (LMX 4 PLUS) [...] (50 mg) by mouth daily. 90 Tablet Active insulin glargine (Lantus Solostar U-100 Insulin) 100 unit/mL pen syringeIndicatio ns:Type 1 diabetes mellitus with chronic kidney disease on chronic dialysis ([facility]) Inject 25 Units by subcutaneous injection 2 [...] by mouth daily. 30 Tablet 025 Active atorvastatin (LIPITOR) 80 mg tabletIndication s:Type 1 diabetes mellitus with chronic kidney disease on chronic dialysis ([facility]) Take 1 Tablet (80 mg) by mouth daily. 30 Tablet 025 Active amLODIPine (NORVASC) 10 mg tabletIndication s:Malignant hypertension Take 1 Tablet (10 mg) by mouth daily. 30 Tablet 5 025 Active amitriptyline (ELAVIL) 50 mg tabletIndication s:Paranoid schizophrenia ([facility]) Take 1 Tablet (50 mg) by mouth daily at bedtime. 30 Tablet 5 025 Active Blood Pressure Monitor KitIndications:U ncontrolled hypertension To monitor blood pressure daily [facility] [employer] 1 Each 025 Active Blood-Glucose Sensor (Dexcom G7 Sensor) DeviceIndication s:Type 1 diabetes mellitus with other kidney complication ([facility]) To continuously monitor blood sugar. Change sensor every 10 days. 3 Each 8 Active blood sugar diagnostic Strip Needs 120 strips for 4 times per day 100 Strip 1 Active doxazosin (CARDURA) 4 mg tablet Take 4 mg by mouth daily at bedtime. Active methoxy peg-epoetin beta (MIRCERA INJECTION) 75 mcg. 025 2025 Active Insulin Bonaparte, Disposable, (Ultra-Thin II Ins Pen Bonaparte) 29 gauge x 1/2 NeedleIndication s:Type 1 diabetes mellitus with chronic kidney disease on chronic dialysis ([facility]) Use to inject insulin 4 times daily 100 Each 11 Active ARIPiprazole (ABILIFY) 5 mg tabletIndication s:Paranoid schizophrenia ([facility]) Take 1 tablet by mouth once daily 30 Tablet 5 Active cpap biomedical engineering director CPAP auto-titrate 5-10 cwp with heated humidifier. [...] mouth every 8 hours. 300 Tablet 3 Active cloNIDine (JQIYCUJBH-EXP-5 ) 0.2 mg/24 hr patchIndications :Malignant hypertension Apply 1 Patch to skin as directed every 7 days. 4 Patch 5 025 Active isosorbide mononitrate (IMDUR) 30 mg Extended Release 24 hour tabletIndication s:Malignant hypertension Take 1 Tablet (30 mg) by mouth daily. 30 Tablet 5 Active bumetanide (BUMEX) 1 mg tabletIndication s:Malignant hypertension,ESR D (end stage renal disease) ([facility]),Chroni c combined systolic (congestive) and diastolic (congestive) heart failure ([facility]) Take 1 Tablet (1 mg) by mouth 2 times daily. 60 Tablet 5 Active morphine (MS IR) 15 mg tablet Take 15 mg by mouth every 8 hours as needed for Pain, Break-Through. Active albuterol sulfate 90 mcg/Actuation inhalerIndicatio ns:Shortness of breath Take 2 Puffs by inhalation every 6 hours as needed for Shortness of Breath. 8.5 Gram 2 Active Blood-Glucose Meter,Continuous (FANCRU G7 State Federal Relations Deputy Director)Indicat ions:Type 1 diabetes mellitus with other kidney complication ([facility]) Use with sensor to monitor glucose continuously. 1 Each Active DULoxetine 30 mg capsule, delayed rel sprinkle Take by mouth. Active ferrous gluconate 324 mg (37.5 mg iron) Tablet Take 1 Tablet by mouth 2 times daily. Active iron sucrose (VENOFER) 50 mg iron/2.5 mL Solution 50 mg every 7 days. 2025 Active HYDROcodone-acet aminophen (NORCO) 5-325 mg tablet take one tablet by mouth every eight hours as needed for pain Active heparin sodium,porcine/N S/PF (heparin in NS, PF, 2 units/mL) 1,000 unit/500 mL Parenteral Solution Heparin Sodium (Porcine) 1,000 Units/mL Systemic 025 2025 Active acetaminophen (TYLENOL) Take 650 mg by mouth. 025 2025 Active oxyCODONE (ROXICODONE) 5 mg tablet 1 tablet as needed Orally every 6 hrs Active sevelamer carbonate (RENVELA) 800 mg Tablet 2 Tablets. 025 2025 Active Lokelma 5 gram Powder in Packet EMPTY 1 PACKET IN 3 TABLESPOONSFUL OF WATER OR DIRECTED, STIR WELL, AND IMMEDIATELY DRINK ON NON-DIALYSIS DAYS ON MON, WED, FRI AND SUN Active traMADol (ULTRAM) 50 mg tablet Take 50 mg by mouth every 8 hours as needed for Pain. Active HumaLOG KwikPen Insulin 100 unit/mL pen syringeIndicatio ns:Type 1 diabetes mellitus with chronic kidney disease on chronic dialysis ([facility]) INJECT 6 UNITS SUBCUTANEOUSLY 3 TIMES DAILY BEFORE MEALS PLUS A MEDIUM DOSE SLIDING SCALE. MAX UNITS PER DAY 60 UNITS 15 mL 2 Active albuterol sulfate HFA 90 mcg/actuation aerosol inhalerIndicatio ns:Shortness of breath Take 2 Puffs by inhalation every 6 hours as needed for Shortness of Breath. 8.5 Gram 1 025 2024 Discontinued(R eorder) Blood-Glucose Meter,Continuous (Dexcom G7 State Federal Relations Deputy Director)Indicat ions:Type 1 diabetes mellitus with other kidney complication ([facility]) Use with sensor to monitor glucose continuously. 1 Each 025 2024 Discontinued(R eorder) insulin lispro (HumaLOG,ADMELOG ) 100 unit/mL pen syringeIndicatio ns:Type 1 diabetes mellitus with chronic kidney disease on chronic dialysis ([facility]) INJECT 6 UNITS SUBCUTANEOUSLY 3 TIMES DAILY BEFORE MEALS PLUS A MEDIUM DOSE SLIDING SCALE. MAX UNITS PER DAY 60 UNITS 15 mL 025 2024 Discontinued orphenadrine (NORFLEX) 100 mg Extended Release tablet Take 1 Tablet (100 mg) by mouth 2 times daily as needed for Spasm. Do not take within 2 hours of taking morphine to avoid sedation. 10 Tablet 2024 morphine (MS IR) 15 mg tabletIndication s:History of lumbar spinal fusion Take 1 Tablet (15 mg) by mouth every 8 hours as needed for Pain, Break-Through. Max Daily Amount: 45 mg 6 Tablet 025 2024 HumaLOG KwikPen Insulin 100 unit/mL pen syringeIndicatio ns:Type 1 diabetes mellitus with chronic kidney disease on chronic dialysis ([facility]) INJECT 6 UNITS SUBCUTANEOUSLY 3 TIMES DAILY BEFORE MEALS PLUS A MEDIUM DOSE SLIDING SCALE. 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 (CMS/HCC) 2 Drop Both Eyes ONE TIME ONLY 08/18/2025 Active Active Problems Problem Noted Date Diagnosed Date Spasm of thoracic back muscle 08/25/2025 Chest pain 08/16/2025 Nausea and vomiting 08/13/2025 Positive blood culture 05/18/2025 Volume overload state of heart 05/17/2025 NSTEMI (non-ST elevated myocardial infarction) 0 05/17/2025 Pneumonia of left lower lobe due to infectious o rganism 05/16/2025 Overview (05/16/2025): Due to suspected gram-negative organisms Acute pulmonary edema 05/16/2025 LISET (obstructive sleep apnea) 05/03/2025 Chronic midline low back pain with bilateral sci atica 04/26/2025 Encounter for tobacco use cessation counseling 0 04/26/2025 Need for acute hemodialysis 04/11/2025 Hypervolemia 04/11/2025 Hypertensive emergency 04/11/2025 Acute on chronic congestive heart failure 2024 Paranoid schizophrenia 12/21/2024 History of lumbar spinal fusion 12/21/2024 Nephrotic syndrome with unspecified morphologic changes 12/15/2024 Tobacco use disorder 12/11/2024 Anemia, unspecified 12/08/2024 Anaphylactic shock, unspecified, initial encount er 12/08/2024 [...] 12/05/2024 ESRD (end stage renal disease) 12/04/2024 Elevated troponin 12/04/2024 Chronic combined systolic (c ongestive) and diastolic (congestive) heart failure 12/04/2024 Atypical chest pain 12/04/2024 Anasarca 12/04/2024 Hypoalbuminemia 12/04/2024 Cardiomyopathy, unspecified 12/03/2024 Combined forms of age-related cataract of both e yes 11/02/2024 Persistent proteinuria 08/27/2024 Angioedema 07/11/2024 Type 1 diabetes mellitus with kidney complicatio n 07/06/2024 Uncontrolled hypertension 07/06/2024 Malignant hypertension 03/22/2024 Resolved Problems Problem Noted Date Diagnosed Date Resolved Date Hyperkalemia 04/26/2025 08/13/2025 Hypertensive emergency 01/04/202501/25 Other stimulant abuse, uncomplicated 12/15/2024 01/25/2025 Fever, unspecified 12/08/2024 Fluid overload, unspecified 12/08/2024 01/25/2025 Shortness of breath 12/08/2024 01/26/20 Acute renal failure superimp osed on chronic [...] Encounters Date Type Department Care Team Description 09/16/[address] [phone] Duke Alarcon MD Type 1 diabetes mellitus with chronic kidney disease on chronic dialysis ([facility]) 09/14/2025 External Device Data STL ABSTRACTION Provider, Abstract 09/06/2025 Results Follow-Up [address] [phone] Duke Alarcon MD MRI ANKLE WO CONTRAST LEFT 08/26/[address] [phone] Duke Alarcon MD Type 1 diabetes mellitus with other kidney complication ([facility]) 08/26/[address] [phone] Roberta Kennedy NP Shortness of breath 08/26/[address] [phone] Duke Alarcon MD Type 1 diabetes mellitus with chronic kidney disease on chronic dialysis ([facility]) 08/25/2025 5:43 PM SLAT BASKET MAKER HELPER MACHINE - 08/25/2025 6:55 PM SLAT BASKET MAKER HELPER MACHINE Emergency [facility] Emergency Medicine [address] [phone] Kelsea Dailey MD Spasm of thoracic back muscle (Primary Dx); History of lumbar spinal fusion Discharge Disposition: Home or Self Care 08/24/[address] [phone] Duke Alarcon MD Provider Call 08/20/2025 9:10 AM SLAT BASKET MAKER HELPER MACHINE - 08/20/2025 10:25 AM SLAT BASKET MAKER HELPER MACHINE Emergency [facility] Emergency Medicine [address] [phone] Scott Holguin MD Anemia in ESRD (end-stage renal disease) ([facility]) (Primary Dx) Discharge Disposition: Home or Self Care 08/18/[address] [phone] Duke Alarcon MD Needs Appointment 08/17/2025 External Device Data STL ABSTRACTION Provider, Abstract 08/17/[address] [phone] Duke Alarcon MD Patient Communication (/) 08/17/2025 Orders Only [facility] [address] [place] [address] Duke Alarcon MD Hospital discharge follow-up (Primary Dx) 08/16/2025 10:37 AM SLAT BASKET MAKER HELPER MACHINE - 08/16/2025 11:31 AM SLAT BASKET MAKER HELPER MACHINE Surgery [facility] Cardiac Cutter Grind Tool Technician [address] [place] [phone] Shimon Patino MD Left heart cath 08/15/2025 Orders Only [facility] General Laboratory Services [facility] [address] [place] [phone] Indu Robin Encounter for preadmission testing 08/13/2025 4:55 PM CDT - 08/16/2025 7:23 PM SLAT BASKET MAKER HELPER MACHINE Hospital Encounter [facility] 4A Cardiac [address] [place] [address] Iraida Roberto MD Sundaram, Vignesh, MD Suthar, Diaz Powers MD Atypical chest pain Discharge Disposition: Home or Self Care 08/13/2025 12:06 PM CDT - 08/13/2025 2:52 PM CDT Emergency [facility] Emergency Medicine [address] [place] [phone] Scott Holguin MD NSTEMI (non-ST elevated myocardial infarction) ([facility]) (Primary Dx); Hyperkalemia; Type 1 diabetes mellitus with hyperglycemia ([facility]) Discharge Disposition: [facility] 08/13/2025 6:15 AM CDT - 08/13/2025 11:59 PM CDT Hospital Encounter [facility] Emergency Medical Services [facility] [address] [phone] Ambulance, [facility] Discharge Disposition: [facility] 08/13/2025 Travel 08/11/2025 1:16 PM CDT - 08/11/2025 11:59 PM CDT Hospital Encounter [facility] [address] [phone] Duke Alarcon MD Discharge Disposition: Home or Self Care 08/03/[address] [facility] [address] [phone] Duke Alarcon MD Type 1 diabetes mellitus with chronic kidney disease on chronic dialysis ([facility]) 07/22/[address] [facility] [address] [phone] Duke Alarcon MD Osteoarthritis of spine with radiculopathy, lumbar region 07/20/2025 External Device Data STL ABSTRACTION Provider, Abstract 07/20/2025 External Device Data STL ABSTRACTION Provider, Abstract 07/19/[address] 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 (CMS/HCC) (Primary Dx) 07/13/[address] [phone] Duke Alarcon MD Osteoarthritis of spine with radiculopathy, lumbar region 07/12/[address] [phone] Duke Alarcon MD Osteoarthritis of spine with radiculopathy, lumbar region 07/07/2025 11:10 AM CDT Office Visit [facility] [place] [address] [phone] Kim Servin MD 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 (CMS/HCC) (Primary Dx); Combined forms of age-related cataract of both eyes 07/05/2025 2:20 PM CDT Office Visit [address] [phone] Duke Alarcon MD Type 1 diabetes mellitus with chronic kidney disease on chronic dialysis (CMS/HCC) (Primary Dx); Malignant hypertension; ESRD (end stage renal disease) (CMS/HCC); Chronic combined systolic (congestive) and diastolic (congestive) heart failure (CMS/HCC); Osteoarthritis of spine with radiculopathy, lumbar region 07/05/[address] [phone] Provider, Abstract 07/03/2025 Patient Self-Triage [facility] [address] [place] [address] 07/01/2025 Telephone [facility] [place] [address] [phone] Kim Servin MD Information 06/30/2025 Orders Only [address] [phone] Duke Alarcon MD 06/29/[address] [phone] Duke Alarcon MD Osteoarthritis of spine with radiculopathy, lumbar region 06/29/[address] [phone] Duke Alarcon MD Information; Patient Communication 06/28/2025 Orders Only [facility] [address] [place] [address] Provider, Abstract 06/28/2025 Results Follow-Up [address] [phone] Duke Alarcon MD XR ANKLE 3+ VW LEFT, HOLTER MONITOR 06/24/2025 Orders Only [address] [phone] Olamide Mcclelland RN Malignant hypertension 06/23/[address] [phone] Duke Alarcon MD Malignant hypertension 06/22/2025 External Device Data STL ABSTRACTION Provider, Abstract 06/22/2025 External Device Data STL ABSTRACTION Provider, Abstract 06/22/[address] [phone] Duke Alarcon MD Osteoarthritis of spine with radiculopathy, lumbar region from Last 3 Months Immunizations Immunization Administration Dates Next Due (PREVNAR 20)(6 WKS UP) PNEUM OCOCCAL CONJUGATE VACCINE 20-VALENT (PCV20), POLYSACCHARIDE ORX032 CONJUGATE, ADJUVANT 0.5 ML (PF) IM 06/30/2025 INFLUENZA VACCINE TRIVALENT SPLIT VIRUS, (6 MOS UP), 0.25ML OR 0.5ML, IM 06/30/2025 INFLUENZA VACCINE TRIVALENT SPLIT VIRUS, (6 MOS [...] drink = 0.6 oz pur e alcohol) Food Insecurity Answer Date Recorded Do you find you are eating l ess than you should because you can t pay for food? No 08/25/2025 Transportation Needs Answer Date Record ed Have you gone without health care because you didn t have a way to get there? 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 No 2024 Housing Stability Answer Date Recorded Do you worry you won t have a steady place to sleep or struggle to pay rent or mortgage? No 08/25/2025 Utility Needs Answer Date Recorded Do you have difficulty payin g for utility costs (electric, water or gas bills)? No 08/25/2025 Medication Needs Answer Date Recorded Have you skipped taking medi cation due to cost or worry you can t afford new medications? No 08/25/2025 Feeling Safe Answer Date Recorded Are you in a relationship wi th someone who hurts you emotionally and/or physically? No 08/25/2025 Food Insecurity Answer Date Recorded Patient needs follow up regardin 02/03/2025 Transportation Needs Answer Date Record ed Patient needs follow up regardin 02/03/2025 Housing Stability Answer Date Recorded Social/Environmental Concerns No concerns Utility Needs Answer Date Recorded Patient needs follow up regardin 02/03/2025 Sex and Gender Information Value Date Recorded Sex Assigned at Not on file Legal Sex Male 3:23 AM SLAT BASKET MAKER HELPER MACHINE Gender Identity Not on file Sexual Orientation Not on file Last Filed Vital Signs Vital Sign Reading Time Taken Comments Blood Pressure 172/90 08/25/2025 6:45 PM SLAT BASKET MAKER HELPER MACHINE Pulse 96 08/25/2025 6:45 PM SLAT BASKET MAKER HELPER MACHINE Temperature 37.6 C (99.7 F) 08/25/2025 4:28 PM SLAT BASKET MAKER HELPER MACHINE Respiratory Rate 16 08/25/2025 6:45 PM SLAT BASKET MAKER HELPER MACHINE Oxygen Saturation 99% 08/25/2025 6:45 PM SLAT BASKET MAKER HELPER MACHINE Inhaled Oxygen Concentration - - Weight 96 kg (211 lb 9.6 oz) 08/25/2025 4:28 PM SLAT BASKET MAKER HELPER MACHINE Height 182.9 cm (6') 08/25/2025 4:28 PM SLAT BASKET MAKER HELPER MACHINE Body Mass Index 28.7 08/25/2025 4:28 PM SLAT BASKET MAKER HELPER MACHINE Plan of Treatment Upcoming Encounters Date Type Department Care Team (Late st Contact Info) Description 09/27/2025 9:30 AM SLAT BASKET MAKER HELPER MACHINE Office Visit [facility] Roll Cleaner Optometry [facility] [address] [place] [address] Constantin Bales, OD [address] [place] [address] 10/20/2025 3:20 PM SLAT BASKET MAKER HELPER MACHINE Office Visit [facility] Family [facility] [address] [phone] Duke Alarcon MD [address] [phone] Health Maintenance Due Date Last Done Comments DTAP/TDAP/TD VACCINES (1 - Tdap) 2009 HEPATITIS B VACCINES (1 of 3 - Risk Dialysis 4-dose series) 2010 DIABETES MICROALBUMIN ANNUAL SCREEN 07/11/2016 07/11/2015 [place] Preventative Visit/Annual Wellness Visit 10/14/2024 DIABETES HBA1C Q 6 MONTHS 02/11/20262024, 03/18/2025, 11/10/2024, Additional history exists DIABETES ANNUAL FOOT EXAM 05/03/2026 05/03/2025, DIABETES ANNUAL RETINAL EXAM 07/14/202610/2024, 07/07/2025, 07/07/2025, Additional history exists DIABETES: A1C (Auto Order) 08/14/202608/14, 03/18/2025, 11/10/2024, Additional history exists LDL CHOLESTEROL ANNUAL 08/14/2026 , 07/14/2024, 07/11/2015 Abdominal Aortic Aneurysm (A AA) Screening Completed 08/07/2024, 12/28/2023 INFLUENZA VACCINE Completed 06/30/2025, , 07/14/2016, Additional history exists HPV VACCINES (No Doses Required) Completed Goals Goal Patient Goal Type Associated Problems Recent Progress Patient-Stated? Author Heart Failure Goal Care Plan Heart Failure Problem No Faye Denny [employer] Devices Implanted Type Area [employer] Hcm Developer Device Identifier Shelf Expiration Date Model / Serial / Lot Closure Perclose Prostyle Sut Mediate 29504-88 - [id number] Implanted:Qty: 1 on 08/16/2025 by Shimon Patino MD at [facility] Closure Device Right: Groin KENNEDY- VASC DEVICE [id number] 06/13/2027 [id number] / / [id number] Explanted Type Area [employer] Hcm Developer Device Identifier Shelf Expiration Date Model / Serial / Lot Cath Dialysis Glidepath 14.5fr 23cm [facility] [id number] - [id number] Implanted:Qty: 1 on 12/04/2024 by Constantin Crum MD at [facility] Explanted:Qty: 1 on 04/23/2025 by Reji Sethi Catheter Right: Chest BARD TRICE VASC [id number] 03/13/2026 [id number] / / [id number] Procedures Procedure Name Priority Date/Time Associated Diagnosis Comments TYPE AND SCREEN Stat 08/20/2025 9:27 AM SLAT BASKET MAKER HELPER MACHINE PROTIME-INR Stat 08/20/2025 9:27 AM SLAT BASKET MAKER HELPER MACHINE CBC WITH DIFFERENTIAL Stat 08/20/2025 9:27 AM SLAT BASKET MAKER HELPER MACHINE TELEMETRY REPORT 08/17/2025 2:16 AM SLAT BASKET MAKER HELPER MACHINE POC GLUCOSE Routine 08/16/2025 4:16 PM SLAT BASKET MAKER HELPER MACHINE ECHO COMPLETE Routine 08/16/2025 2:30 PM SLAT BASKET MAKER HELPER MACHINE POC GLUCOSE Routine 08/16/2025 11:10 AM SLAT BASKET MAKER HELPER MACHINE LEFT HEART CATH Routine 08/16/2025 10:43 AM SLAT BASKET MAKER HELPER MACHINE NSTEMI (non-ST elevated myocardial infarction) (CMS/HCC) POC GLUCOSE Routine 08/16/2025 9:53 AM SLAT BASKET MAKER HELPER MACHINE POC GLUCOSE Routine 08/16/2025 9:06 AM SLAT BASKET MAKER HELPER MACHINE UNFRACTIONATED HEPARIN ACTIVITY Timed Study 08/16/2025 8:36 AM SLAT BASKET MAKER HELPER MACHINE UNFRACTIONATED HEPARIN ACTIVITY Timed Study 08/16/2025 12:54 AM SLAT BASKET MAKER HELPER MACHINE POC GLUCOSE Routine 08/15/2025 8:23 PM SLAT BASKET MAKER HELPER MACHINE UNFRACTIONATED HEPARIN ACTIVITY Timed Study 08/15/2025 4:34 PM SLAT BASKET MAKER HELPER MACHINE POC GLUCOSE Routine 08/15/2025 4:33 PM SLAT BASKET MAKER HELPER MACHINE POC GLUCOSE Routine 08/15/2025 11:25 AM SLAT BASKET MAKER HELPER MACHINE UNFRACTIONATED HEPARIN ACTIVITY Timed Study 08/15/2025 10:04 AM SLAT BASKET MAKER HELPER MACHINE POC GLUCOSE Routine 08/15/2025 7:03 AM SLAT BASKET MAKER HELPER MACHINE TYPE AND SCREEN Routine 08/15/2025 1:11 AM CDT Encounter for preadmission testing PHOSPHORUS Routine 08/15/2025 1:11 AM CDT CBC WITH DIFFERENTIAL Routine 08/15/2025 1:11 AM CDT BASIC METABOLIC PANEL Routine 08/15/2025 1:11 AM CDT UNFRACTIONATED HEPARIN ACTIVITY Timed Study 08/15/2025 1:11 AM CDT POC GLUCOSE Routine 08/14/2025 8:40 PM CDT UNFRACTIONATED HEPARIN ACTIVITY Stat 08/14/2025 5:57 PM CDT PTT Routine 08/14/2025 5:57 PM CDT CBC WITHOUT DIFFERENTIAL Routine 08/14/2025 5:57 PM CDT POC GLUCOSE Routine 08/14/2025 5:28 PM CDT POC GLUCOSE Routine 08/14/2025 11:16 AM CDT POC GLUCOSE Routine 08/14/2025 7:48 AM CDT LIPID PANEL Routine 08/14/2025 2:26 AM CDT PHOSPHORUS Routine 08/14/2025 2:26 AM CDT CBC WITH DIFFERENTIAL Routine 08/14/2025 2:26 AM CDT BASIC METABOLIC PANEL Routine 08/14/2025 2:26 AM CDT HEMOGLOBIN A1C Routine 08/14/2025 2:26 AM CDT BLOOD CULTURE Routine 08/14/2025 2:24 AM CDT BLOOD CULTURE Routine 08/14/2025 2:24 AM CDT BLOOD CULTURE Routine 08/14/2025 2:20 AM CDT BLOOD CULTURE Routine 08/14/2025 2:20 AM CDT POC GLUCOSE Routine 08/13/2025 10:56 PM CDT POC GLUCOSE Stat 08/13/2025 8:03 PM CDT POC GLUCOSE Stat 08/13/2025 6:56 PM CDT COMPREHENSIVE METABOLIC PANEL Stat 08/13/2025 5:17 PM CDT TROPONIN Stat 08/13/2025 5:17 PM CDT EKG 12-LEAD Stat 08/13/2025 5:13 PM CDT BASIC METABOLIC PANEL Stat 08/13/2025 2:22 PM CDT XR CHEST PA AND LATERAL 2 VW Stat 08/13/2025 12:48 PM CDT EKG 12-LEAD Stat 08/13/2025 12:25 PM CDT PTT Stat 08/13/2025 12:23 PM CDT TROPONIN BASELINE, 5TH GEN Stat 08/13/2025 12:23 PM CDT MAGNESIUM LEVEL Stat 08/13/2025 12:23 PM CDT TSH Stat 08/13/2025 12:23 PM CDT LIPASE Stat 08/13/2025 12:23 PM CDT BRAIN NATRIURETIC PEPTIDE, BNP OR PROBNP Stat 08/13/2025 12:23 PM CDT COMPREHENSIVE METABOLIC PANEL Stat 08/13/2025 12:23 PM CDT CBC WITH DIFFERENTIAL Stat 08/13/2025 12:23 PM CDT MRI ANKLE WO CONTRAST LEFT Routine 08/11/2025 2:20 PM CDT Acute left ankle pain PUGH RETINAL PHOTOCOAGULATION - OU - BOTH EYES Routine 07/14/2025 10:08 AM CDT 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 (CMS/HCC) EYE DROPS Routine 07/14/2025 10:07 AM CDT 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 (CMS/HCC) EYE DROPS Routine 07/14/2025 10:07 AM CDT 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 (CMS/HCC) INTRAVITREAL INJECTION, PHARMACOLOGIC AGENT - OU - BOTH EYES Routine 07/07/2025 12:58 PM CDT 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 (CMS/HCC) EYE DROPS Routine 07/07/2025 12:57 PM CDT 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 (CMS/HCC) OCT, RETINA - OU - BOTH EYES Routine 07/07/2025 11:58 AM CDT 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 WBC 9.6(H) 4.2 - 9.1 K/uL 08/20/2025 9:41 AM [facility] RBC 2.78(L) 4.63 - 6.08 M/uL 08/20/2025 9:41 AM [facility] HEMOGLOBIN 8.6(L) 13.7 - 17.5 g/dL 08/20/2025 9:41 AM [facility] HEMATOCRIT 25.8(L) 40.1 - 51.0 % 08/20/2025 9:41 AM [facility] MCV 92.8(H) 79.0 - 92.2 fL 08/20/2025 9:41 AM [facility] MCH 30.9 25.7 - 32.2 pg 08/20/2025 9:41 AM [facility] MCHC 33.3 32.3 - 36.5 g/dL 08/20/2025 9:41 AM [facility] RDW 15.5(H) 11.0 - 14.5 % 08/20/2025 9:41 AM [facility] RDW-STDEV 51.8 36.9 - 56.9 fL 08/20/2025 9:41 AM [facility] PLATELETS 295 130 - 400 K/uL 08/20/2025 9:41 AM [facility] MPV 10.2 10.0 - 14.8 fL 08/20/2025 9:41 AM [facility] NEUTROPHILS 76(H) 34 - 68 % 08/20/2025 9:41 AM [facility] LYMPHOCYTES 13(L) 22 - 53 % 08/20/2025 9:41 AM [facility] MONOCYTES 7 5 - 12 % 08/20/2025 9:41 AM [facility] EOSINOPHILS 2 1 - 7 % 08/20/2025 9:41 AM [facility] BASOPHILS 1 0 - 1 % 08/20/2025 9:41 AM [facility] IMMATURE GRANULOCYTES 1 % 08/20/2025 9:41 AM [facility] NEUTROPHIL ABSOLUTE 7.24(H) 1.78 - 5.38 K/uL 08/20/2025 9:41 AM [facility] LYMPHOCYTE ABSOLUTE 1.27 1.20 - 3.40 K/uL 08/20/2025 9:41 AM [facility] MONOCYTE ABSOLUTE 0.70 0.30 - 0.82 K/uL 08/20/2025 9:41 AM [facility] EOSINOPHIL ABSOLUTE 0.18 0.04 - 0.54 K/uL 08/20/2025 9:41 AM [facility] BASOPHILS ABSOLUTE 0.10(H) 0.01 - 0.08 K/uL 08/20/2025 9:41 AM [facility] IMMATURE GRANULOCYTES ABSOLUTE 0.07 K/uL 08/20/2025 9:41 AM [facility] Blood Venipuncture / Unknown 08/20/2025 9:27 AM [employer]AT BASKET MAK[employer] HELPER MACHINE 08/20/2025 9:35 AM [employer] BASK[employer] MAK[employer] HELPER MACHINE us Scott Holguin MD HEMATOLOGY ORDERABLES Final Result [facility] CLIA # [id number] [address] [place] [address] [id number] * PROTIME-INR (08/20/2025 9:27 AM [employer] BASKET MAKER HELPER MACHINE) PROTIME 13.6 12.1 - 14.3 Seconds 08/20/2025 9:49 AM [facility] INR 1.0 0.9 - 1.1 08/20/2025 9:49 AM [facility] Blood Venipuncture / Unknown 08/20/2025 9:27 AM [employer] BASKET MAKER HELPER MACHINE 08/20/2025 9:35 AM [employer] BASK[employer] MAK[employer] HELPER MACHINE us Scott Holguin MD HEMATOLOGY ORDERABLES Final Result [facility] CLIA # [id number] [address] [place] [address] [id number] * TYPE AND SCREEN (08/20/2025 9:27 AM [employer] BASKET MAKER HELPER MACHINE) Only the most recent of2 resultswithin the time period is included. Pathologist [facility] ABO/RH TYPE O POS 08/20/2025 10:13 AM [employer] BASK[employer] MAK[employer] HELPER MACHINE [facility] ANTIBODY SCREEN Negative 08/20/2025 10:13 AM [employer] B[employer] MAK[employer] HELPER MACHINE [facility] Blood Venipuncture / Unknown 08/20/2025 9:27 AM [employer] BASKET MAKER HELPER MACHINE 08/20/2025 9:35 AM [employer] BASKET MAKER HELPER MACHINE us Scott Holguin MD BLOOD BANK ORDERABLES Final Result Performing Organization Address [facility] de Phone Number [facility] CLIA # [id number] [address] [place] [address] [id number] * TELEMETRY REPORT (08/17/2025 2:16 AM SL[employer] BASKET MAKER HELPER MACHINE) us Provider Scanning ECG ORDERABLES Final Result * (ABNORMAL) POC GLUCOSE (08/16/2025 4:16 PM [employer] HELPER MACHINE) Only the most recent of15 resultswithin the time period is included. GLUCOSE POC 212(H) 74 - 99 mg/dL 08/16/2025 4:16 PM SL[employer] BASKET MAKER HELPER MACHINE [facility] SPECIMEN SOURCE, GLUCOSE POC Capillary 08/16/2025 4:16 PM SL[employer] BASKET MAKER HELPER MACHINE [facility] Blood, whole 08/16/2025 4:16 PM [employer] B[employer] MAKER HELPER MACHINE 08/16/2025 5:05 PM [employer] MAK[employer] HELPER MACHINE us Diaz Scott MD POINT OF CARE TESTING Oliva l Result Performing Organization Address [facility] Co de Phone Number [facility] CLIA # [id number] [address] [facility] [place] [address] * ECHO COMPLETE - CONTRAST AND STRAIN IF INDICATED (08/16/2025 2:30 PM [employer] BASKET MAK[employer] HELPER MACHINE) EJECTION FRACTION 49 INTERFACE SYSTEM 08/16/2025 2:13 PM [employer] B[employer] MAK[employer] HELPER MACHINE Narrative INTERFACE SYSTEM - 08/16/2025 4:08 PM SL[employer] BASKET MAKER HELPER MACHINE [facility] Cardiovascular Services Echocardiography Laboratory [address] [place] [address] 11886 Transthoracic Echocardiography Patient: Vida San Study ID: ECHO URI Lino Gender: M : 1990 Age: 34 Room: [facility] Study 08/16/2025 Pt Inpatient Date: Status: Study 02:13:49 PM CSN #: [id number] Time: Ordering:Shimon Patino Automotive Drivability Technician: Zak Asif Indications and History: Post HI. Risk factors: Hypertension. Diabetes mellitus. Dyslipidemia. Summary and Conclusion: - Left ventricle: The cavity size is normal. Wall thickness is increased in a pattern of moderate LVH. Global systolic function is at the lower limits of normal. The estimated ejection fraction is 50-55%, by visual assessment. For Epic reporting: the left ventricular ejection fraction is 49% by biplane method of disks. No diagnostic regional wall motion abnormality identified. Severe diastolic dysfunction (grade III, restrictive filling pattern), consistent with elevated LV filling pressures. The global longitudinal strain is -12% with apical sparing, consider amyloidosis or hypertension (Normal range is -18 to -25). - Right ventricle: The cavity size is normal. Systolic function is normal. Systolic pressure is not obtained. - Left atrium: The atrium is moderately to severely dilated. - Pericardium: A small pericardial effusion is identified circumferential to the heart. - Inferior vena cava: The IVC is dilated. Respirophasic diameter changes are blunted (< 50%), consistent with elevated central venous pressure. Procedure information: Comparison is made to the study of 11/25/2024. Study status: Routine. Procedure: A transthoracic echocardiogram was performed. Image quality was adequate. Scanning was performed from the parasternal, apical, subcostal, and suprasternal notch acoustic windows. Study components: M-mode, 2D, complete spectral Doppler, and color Doppler. Height: 182.9cm. Height: 72in. Weight: 95.8kg. Weight: 211.2lb. BMI: 28.6kg/m^2. BSA: 2.22m^2. Blood pressure: 136/77 Study date: 08/16/2025. Study time: 02:13 PM. Location: Bedside. Cardiac Anatomy: LEFT VENTRICLE: The cavity size is normal. Wall thickness is increased in a pattern of moderate LVH. Global systolic function is at the lower limits of normal. The estimated ejection fraction is 50-55%, by visual assessment. For Epic reporting: the left ventricular ejection fraction is 49% by biplane method of disks. No diagnostic regional wall motion abnormality identified. The global longitudinal strain is -12% with apical sparing, consider amyloidosis or hypertension (Normal range is -18 to -25). Severe diastolic dysfunction (grade III, restrictive filling pattern), consistent with elevated LV filling pressures. RIGHT VENTRICLE: The cavity size is normal. Systolic function is normal. Systolic pressure is not obtained. LEFT ATRIUM: The atrium is moderately to severely dilated. RIGHT ATRIUM: The atrium is normal in size. ATRIAL SEPTUM: No obvious PFO or ASD identified by 2D imaging and color Doppler. AORTIC VALVE: The valve is trileaflet. The leaflets are normal thickness. Mobility is not restricted. Velocity is minimally increased. There is no stenosis. There is no significant regurgitation. MITRAL VALVE: Structurally normal valve. Mobility is not restricted. No evidence for prolapse. There is no evidence for stenosis. There is trace regurgitation. TRICUSPID VALVE: Structurally normal valve. Mobility is unrestricted. There is no evidence for stenosis. There is trace regurgitation. PULMONIC VALVE: Not well visualized. The valve appears to be grossly normal. There is no evidence for stenosis. There is no significant regurgitation. PERICARDIUM: A small pericardial effusion is identified circumferential to the heart. AORTA: Aortic root: The root is not dilated. Aortic arch: The vessel is not dilated. Measurements Left ventricle Value Right ventricle Value VIVEK, LAX 5.4 cm VIVEK, LAX 4.3 cm ESD, LAX 3.1 cm VIVEK 4.3 cm VIVEK/bsa, LAX 2.4 cm/m^2 TAPSE, 2D 1.8 cm ESD/bsa, LAX 1.4 cm/m^2 TAPSE, MM 1.8 cm FS, LAX 43 % S' lateral 13.2 cm/sec FS, LAX chord 43 % ESD major ax, A4C 9.1 cm Left atrium Value ESD/bsa major ax, A4C 4.1 cm/m^2 AP dim, ES 5.4 cm VIVEK minor ax, A4C 9.1 cm AP dim index, ES 2.4 cm/m^2 VIVEK/bsa minor ax, A4C 4.1 cm/m^2 SI dim, A4C 6.1 cm VIVEK major ax, A2C 9.7 cm Area ES, A4C 30 cm^2 ESD major ax, A2C 9.4 cm Vol, S 128 ml VIVEK/bsa major ax, A2C 4.4 cm/m^2 Vol/bsa, S 57 ml/m^2 ESD/bsa major ax, A2C 4.2 cm/m^2 Vol, ES, 1-p A4C 113 ml IVS, ED 1.0 cm Vol/bsa, ES, 1-p A4C 51 ml/m^2 ESD 3.1 cm Vol, ES, 1-p A2C 123 ml ESD/bsa 1.4 cm/m^2 Vol/bsa, ES, 1-p A2C 55 ml/m^2 FS 43 % Vol, ES, 2-p 118 ml PW, ED 1.2 cm Vol/bsa, ES, 2-p 53 ml/m^2 IVS/PW, ED 0.87 Vol, ES, A/L 122 ml EDV, 1-p A2C 153 ml Vol/bsa, ES, A/L 55 ml/m^2 ESV, 1-p A2C 76 ml EF, 1-p A2C 50 % Right atrium Value EDV/bsa, 1-p A2C 69 ml/m^2 Area, ES 16 cm^2 ESV/bsa, 1-p A2C 34 ml/m^2 Area, ES, A4C 16 cm^2 EDV, 1-p A4C 114 ml ESV, 1-p A4C 65 ml Aortic valve Value EF, 1-p A4C 43 % Peak v, S 211.48 cm/sec SV, 1-p A4C 49 ml Mean v, S 130.04 cm/sec EDV/bsa, 1-p A4C 51 ml/m^2 VTI, S 38.1 cm ESV/bsa, 1-p A4C 29 ml/m^2 Mean grad, S 8 mm Hg SV/bsa, 1-p A4C 22 ml/m^2 Peak grad, S 18 mm Hg EDV, 2-p 134 ml LVOT/AV, VTI ratio 0.64 ESV, 2-p 72 ml STEFANO, VTI 2.02 cm^2 EF, 2-p 46 % STEFANO/bsa, VTI 0.91 cm^2/m^2 SV, 2-p 77 ml LVOT/AV, Vpeak ratio 0.59 EDV/bsa, 2-p 60 ml/m^2 STEFANO, Vmax 1.85 cm^2 ESV/bsa, 2-p 32 ml/m^2 STEFANO/bsa, Vmax 0.83 cm^2/m^2 SV/bsa, 2-p 34.6 ml/m^2 LVOT/AV, Vmean ratio 0.69 E', lat ken, TDI 11.6 cm/sec STEFANO, Vmean 2.2 cm^2 E/e', lat ken, TDI 13 STEFANO/bsa, Vmean 0.98 cm^2/m^2 E', med ken, TDI 5.6 cm/sec E/e', med ken, TDI 28 Mitral valve Value E', avg, TDI 8.6 cm/sec Peak E 155.88 cm/sec E/e', avg, TDI 18 Peak A 60.33 cm/sec Decel slope 724.64 cm/s^2 LVOT Value Decel time 215 ms Diam, S 2.0 cm Peak grad, D 10 mm Hg Area 3.1 cm^2 Peak E/A ratio 2.58 Peak zeyad, S 124.1 cm/sec Vena contracta width 4.3 cm Mean zeyad, S 90.28 cm/sec VTI, S 24.4 cm Ascending aorta Value Peak grad, S 6 mm Hg AAo AP diam, S 3.0 cm Mean grad, S 4 mm Hg AAo AP diam/bsa, S 1.3 cm/m^2 SV 77 ml Qs 17.1 L/min Inferior vena cava Value Qs/bsa 7.7 L/(min-m^2) Diam 2.3 cm SV/bsa 35 ml/m^2 Legend: (L) and (H) ronny values outside specified reference range. [facility] are accredited with the [facility] Accreditation Commission - Echocardiography. Prepared and Electronically Authenticated Matt Hinojosa Confirmed 08/16/2025 16:08 Procedure Note Matt Hinojosa MD - 08/16/2025 [facility] Cardiovascular Services Echocardiography Laboratory [address] [place] [address] [id number] Transthoracic Echocardiography Patient: Vida San Study ID: ECHO URIColleen Holland Gender: M : 1990 Age: 34 Room: [facility] Study 08/16/2025 Pt Inpatient Date: Status: Study 02:13:49 PM CSN #: [id number] Time: Ordering:Shimon Patino Automotive Drivability Technician: Zak Asif Indications and History: Post HI. Risk factors: Hypertension.Diabetes mellitus. Dyslipidemia. Summary and Conclusion: - Left ventricle: The cavity size is normal. Wall thickness is increasedin a pattern of moderate LVH. Global systolic function is at the lower limitsof normal. The estimated ejection fraction is 50-55%, by visual assessment.For Epic reporting: the left ventricular ejection fraction is 49% bybiplane method of disks. No diagnostic regional wall motion abnormalityidentified. Severe diastolic dysfunction (grade III, restrictive filling pattern), consistent with elevated LV filling pressures. The global longitudinal strain is -12% with apical sparing, consider amyloidosis orhypertension (Normal range is -18 to -25). - Right ventricle: The cavity size is normal. Systolic function isnormal. Systolic pressure is not obtained. - Left atrium: The atrium is moderately to severely dilated. - Pericardium: A small pericardial effusion is identified circumferentialto the heart. - Inferior vena cava: The IVC is dilated. Respirophasic diameter changesare blunted (< 50%), consistent with elevated central venous pressure. Procedure information: Comparison is made to the study of 11/25/2024.Study status: Routine. Procedure: A transthoracic echocardiogram wasperformed. Image quality was adequate. Scanning was performed from the parasternal, apical, subcostal, and suprasternal notch acoustic windows.Study components: M-mode, 2D, complete spectral Doppler, and color Doppler. Height: 182.9cm. Height: 72in. Weight: 95.8kg. Weight: 211.2lb.BMI: 28.6kg/m^2. BSA: 2.22m^2. Blood pressure: 136/77 Studydate: 08/16/2025. Study time: 02:13 PM. Location: Bedside. Cardiac Anatomy: LEFT VENTRICLE: The cavity size is normal. Wall thickness is increased carmen pattern of moderate LVH. Global systolic function is at the lower limitsof normal. The estimated ejection fraction is 50-55%, by visual assessment.For Epic reporting: the left ventricular ejection fraction is 49% by biplane method of disks. No diagnostic regional wall motion abnormalityidentified. The global longitudinal strain is -12% with apical sparing, consider amyloidosis or hypertension (Normal range is -18 to -25). Severediastolic dysfunction (grade III, restrictive filling pattern), consistent withelevated LV filling pressures. RIGHT VENTRICLE: The cavity size is normal. Systolic function isnormal. Systolic pressure is not obtained. LEFT ATRIUM: The atrium is moderately to severely dilated. RIGHT ATRIUM: The atrium is normal in size. ATRIAL SEPTUM: No obvious PFO or ASD identified by 2D imaging and color Doppler. AORTIC VALVE: The valve is trileaflet. The leaflets are normalthickness. Mobility is not restricted. Velocity is minimally increased. There is no stenosis. There is no significant regurgitation. MITRAL VALVE: Structurally normal valve. Mobility is not restricted.No evidence for prolapse. There is no evidence for stenosis. There istrace regurgitation. TRICUSPID VALVE: Structurally normal valve. Mobility isunrestricted. There is no evidence for stenosis. There is trace regurgitation. PULMONIC VALVE: Not well visualized. The valve appears to be grosslynormal. There is no evidence for stenosis. There is no significantregurgitation. PERICARDIUM: A small pericardial effusion is identified circumferentialto the heart. AORTA: Aortic root: The root is not dilated. Aortic arch: The vessel is not dilated. Measurements Left ventricle Value Right ventricle Value VIVEK, LAX 5.4 cm VIVEK, LAX 4.3cm ESD, LAX 3.1 cm VIVEK 4.3cm VIVEK/bsa, LAX 2.4 cm/m^2 TAPSE, 2D 1.8cm ESD/bsa, LAX 1.4 cm/m^2 TAPSE, MM 1.8cm FS, LAX 43 % S' lateral 13.2cm/sec FS, LAX chord 43 % ESD major ax, A4C 9.1 cm Left atrium Value ESD/bsa major ax, A4C 4.1 cm/m^2 AP dim, ES 5.4cm VIVEK minor ax, A4C 9.1 cm AP dim index, ES 2.4cm/m^2 VIVEK/bsa minor ax, A4C 4.1 cm/m^2 SI dim, A4C 6.1cm VIVEK major ax, A2C 9.7 cm Area ES, A4C 30cm^2 ESD major ax, A2C 9.4 cm Vol, S 128ml VIVEK/bsa major ax, A2C 4.4 cm/m^2 Vol/bsa, S 57ml/m^2 ESD/bsa major ax, A2C 4.2 cm/m^2 Vol, ES, 1-p A4C 113ml IVS, ED 1.0 cm Vol/bsa, ES, 1-p A4C 51ml/m^2 ESD 3.1 cm Vol, ES, 1-p A2C 123ml ESD/bsa 1.4 cm/m^2 Vol/bsa, ES, 1-p A2C 55ml/m^2 FS 43 % Vol, ES, 2-p 118ml PW, ED 1.2 cm Vol/bsa, ES, 2-p 53ml/m^2 IVS/PW, ED 0.87 Vol, ES, A/L 122ml EDV, 1-p A2C 153 ml Vol/bsa, ES, A/L 55ml/m^2 ESV, 1-p A2C 76 ml EF, 1-p A2C 50 % Right atrium Value EDV/bsa, 1-p A2C 69 ml/m^2 Area, ES 16cm^2 ESV/bsa, 1-p A2C 34 ml/m^2 Area, ES, A4C 16cm^2 EDV, 1-p A4C 114 ml ESV, 1-p A4C 65 ml Aortic valve Value EF, 1-p A4C 43 % Peak v, S 211.48cm/sec SV, 1-p A4C 49 ml Mean v, S 130.04cm/sec EDV/bsa, 1-p A4C 51 ml/m^2 VTI, S 38.1cm ESV/bsa, 1-p A4C 29 ml/m^2 Mean grad, S 8 mmHg SV/bsa, 1-p A4C 22 ml/m^2 Peak grad, S 18 mmHg EDV, 2-p 134 ml LVOT/AV, VTI ratio 0.64 ESV, 2-p 72 ml STEFANO, VTI 2.02cm^2 EF, 2-p 46 % STEFANO/bsa, VTI 0.91cm^2/m^2 SV, 2-p 77 ml LVOT/AV, Vpeak ratio 0.59 EDV/bsa, 2-p 60 ml/m^2 STEFANO, Vmax 1.85cm^2 ESV/bsa, 2-p 32 ml/m^2 STEFANO/bsa, Vmax 0.83cm^2/m^2 SV/bsa, 2-p 34.6 ml/m^2 LVOT/AV, Vmean ratio 0.69 E', lat ken, TDI 11.6 cm/sec STEFANO, Vmean 2.2cm^2 E/e', lat ken, TDI 13 STEFANO/bsa, Vmean 0.98cm^2/m^2 E', med ken, TDI 5.6 cm/sec E/e', med ken, TDI 28 Mitral valve Value E', avg, TDI 8.6 cm/sec Peak E 155.88cm/sec E/e', avg, TDI 18 Peak A 60.33cm/sec Decel slope 724.64cm/s^2 LVOT Value Decel time 215ms Diam, S 2.0 cm Peak grad, D 10 mmHg Area 3.1 cm^2 Peak E/A ratio 2.58 Peak zeyad, S 124.1 cm/sec Vena contracta width 4.3cm Mean zeyad, S 90.28 cm/sec VTI, S 24.4 cm Ascending aorta Value Peak grad, S 6 mm Hg AAo AP diam, S 3.0cm Mean grad, S 4 mm Hg AAo AP diam/bsa, S 1.3cm/m^2 SV 77 ml Qs 17.1 L/min Inferior vena cava Value Qs/bsa 7.7 L/(min-m^2) Diam 2.3cm SV/bsa 35 ml/m^2 Legend: (L) and (H) ronny values outside specified reference range. [facility] are accredited with theH[facility] Centersocietal Accreditation Commission - Echocardiography. Prepared and Electronically Authenticated Matt Hinojosa Confirmed 08/16/2025 16:08 us Shimon Patino MD US ORDERABLES Final Result Performing Organization Address City/State/[facility] Co de Phone Number INTERFACE SYSTEM Refer to clinic/hospital department * LEFT HEART CATH (08/16/2025 10:43 AM SLAT BASKET MAKER HELPER MACHINE) 08/16/2025 10:3 0 AM SLAT BASKET MAKER HELPER MACHINE Addenda Addendum by Shimon Patino MD on 08/17/2025 12:12 PM SLAT BASKET MAKER HELPER MACHINE Prox LAD lesion is 15% stenosed. LPDA lesion is 25% stenosed. 1. Mild nonobstructive coronary artery disease described above. Nonischemic cardiomyopathy. Left dominant circulation. 2. Aggressive risk factor modification and lifestyle changes. 3. Recommend maximally tolerated guideline directed medical therapy. 4. Access site care per protocol. 5. Cardiac rehab per the referring provider. Portions of this document were created through the use of Pudding Mediaplate furnace operator software. Effort has been made to ensure accuracy of the injection moulding machine operator. Any obvious errors or omissions should be clarified with the author of the document. Coronary Findings Diagnostic Dominance: Left Left Anterior Descending: The vessel is large. There is mild diffuse disease in the vessel. Prox LAD lesion is 15% stenosed. Not the culprit lesion. ANA flow is 3. Left Circumflex: The vessel is large. The vessel exhibits minimal luminal irregularities. Left Posterior Descending Artery: LPDA lesion is 25% stenosed. Not the culprit lesion. ANA flow is 3. Right Coronary Artery: The vessel is small. The vessel exhibits minimal luminal irregularities. Intervention No interventions have been documented. Estimated Blood Loss There was minimal blood loss during procedure. Procedure Details DESCRIPTION OF PROCEDURE: The risks and benefits of the procedure were described in simple details. Risks including: bleeding, need for blood transfusion, arrhythmia, need for emergent surgery, renal failure, allergic reactions, myocardial infarction, stroke and . All questions were answered. Informed consent was signed. The access site was prepped and draped in a sterile technique in the usual fashion. Lidocaine 2% was used for local anesthesia. A 6 Luxembourger sheath was placed in the access site using single entry technique. Using the JL4 catheter, the left main coronary artery was engaged and multiple shots were obtained. Using the JR4 catheter, the right coronary artery was engaged and multiple shots were obtained. Using the same catheter the aortic valve was crossed and LV pressure measurements were obtained. 10:42:14 LV 124/8/24 s/bd/ed 10:42:22 LV 124/11/32 s/bd/ed 10:42:22 Ao 126/73/95 s/d/m us Candelario Palacios MD CUP CATH ORDERABLES Edited Res ult - Final [facility] [id number] [place] [address], [place] [phone] * UNFRACTIONATED HEPARIN MONITORING (08/16/2025 8:36 AM [employer]) Only the most recent of6 resultswithin the time period is included. [facility] ANTI-XA UNFRAC HEP 0.22 See Interpretation IU/mL 08/16/2025 9:03 AM [facility] Blood Venipuncture / Unknown 08/16/2025 8:36 AM [employer] 08/16/2025 8:39 AM [employer] Narrative [facility] - 08/16/2025 9:03 AM [employer] Therapeutic Range: PT/DVT Heparin Protocol 0.3 - 0.7 IU/ml Cardiac Heparin Protocol 0.3 - 0.6 IU/ml The reference range for this test is specific to the anticoagulant and is not appropriate for monitoring patients on a DOAC protocol. Diaz Scott MD HEMATOLOGY ORDERABLES Oliva l Result Performing Organization Address [facility] Co de Phone Number [facility] CLIA # [id number] [address] [address] * PHOSPHORUS (08/15/2025 1:11 AM CDT) Only the most recent of2 resultswithin the time period is included. [facility] PHOSPHORUS 4.0 2.5 - 4.5 mg/dL 08/15/2025 2:11 AM [facility] Blood 08/15/2025 1:11 AM CDT 08/15/2025 1:32 AM CDT Ben Porter MD CHEMISTRY ORDERABLES Final R esult Performing Organization Address [facility] Co de Phone Number [facility] CLIA # [id number] [address] [place] [address] * (ABNORMAL) BASIC METABOLIC PANEL (08/15/2025 1:11 AM CDT) Only the most recent of3 resultswithin the time period is included. [facility] SODIUM 135(L) 136 - 145 mmol/L 08/15/2025 2:11 AM [facility] POTASSIUM 4.5 3.5 - 5.1 mmol/L 08/15/2025 2:11 AM [facility] CHLORIDE 98 98 - 107 mmol/L 08/15/2025 2:11 AM [facility] CO2 29 22 - 29 mmol/L 08/15/2025 2:11 AM [facility] CALCIUM 7.6(L) 8.6 - 10.0 mg/dL 08/15/2025 2:11 AM [facility] BUN 21(H) 6 - 20 mg/dL 08/15/2025 2:11 AM [facility] CREATININE 4.37(H) 0.67 - 1.17 mg/dL 08/15/2025 2:11 AM [facility] GLUCOSE 164(H) 74 - 99 mg/dL 08/15/2025 2:11 AM [facility] GFR 17(L) >=60 mL/min/1. 73 sq meter 08/15/2025 2:11 AM [facility] Comment:eGFR calculated with 2020 CKD-EPI equation. Vegetarian diet, extremely high or low muscle mass, and may affect results. Cystatin C with Glomerular Filtration Rate is a suitable alternative for these patients. ANION GAP 8(L) 9 - 20 mmol/L 08/15/2025 2:11 AM [facility] Blood 08/15/2025 1:11 AM CDT 08/15/2025 1:32 AM CDT us Ben Porter MD CHEMISTRY ORDERABLES Final R esult [facility] CLIA # [id number] [address] [place] [address] * PTT (08/14/2025 5:57 PM CDT) Only the most recent of2 resultswithin the time period is included. [facility] [place] [facility] PTT 32.4 24.8 - 37.2 seconds 08/14/2025 6:34 PM CDT [facility] Blood Venipuncture / Unknown 08/14/2025 5:57 PM CDT 08/14/2025 6:13 PM CDT [facility] - 08/14/2025 6:34 PM CDT Therapeutic Range: Hi-level PE/DVT heparin protocol 80.1 - 95.0 sec Lo-level PE/DVT heparin protocol 70.1 - 85.0 sec Cardiac Heparin Protocol 70.1 - 100.0 sec us Annel Leonardo NP HEMATOLOGY ORDERABLES Final Resu lt [facility] CLIA # [id number] [facility] [address] * (ABNORMAL) CBC WITHOUT DIFFERENTIAL (08/14/2025 5:57 PM CDT) [facility] WBC 5.2 4.5 - 11.0 K/uL 08/14/2025 6:19 PM CDT [facility] RBC 3.09(L) 4.60 - 6.20 M/uL 08/14/2025 6:19 PM CDT [facility] HEMOGLOBIN 9.2(L) 14.0 - 18.0 g/dL 08/14/2025 6:19 PM CDT [facility] HEMATOCRIT 28.6(L) 41.0 - 53.0 % 08/14/2025 6:19 PM CDT [facility] MCV 92.6 84.0 - 103.0 fL 08/14/2025 6:19 PM CDT [facility] MCH 29.8 27.0 - 34.0 pg 08/14/2025 6:19 PM CDT [facility] MCHC 32.2 30.0 - 35.0 g/dL 08/14/2025 6:19 PM CDT [facility] PLATELETS 278 140 - 440 K/uL 08/14/2025 6:19 PM CDT [facility] MPV 10.2 8.9 - 12.8 fL 08/14/2025 6:19 PM CDT [facility] RDW 14.1 11.0 - 14.5 % 08/14/2025 6:19 PM CDT [facility] RDW-STDEV 47.0 37.0 - 54.0 fL 08/14/2025 6:19 PM CDT [facility] Blood Venipuncture / Unknown 08/14/2025 5:57 PM CDT 08/14/2025 6:13 PM CDT Shimon Patino MD HEMATOLOGY ORDERABLES Final R esult Performing Organization Address City/[facility]/ZIP Co de Phone Number [facility] CLIA # [id number] [address] [address] * (ABNORMAL) HEMOGLOBIN A1C (08/14/2025 2:26 AM CDT) HEMOGLOBIN A1C 6.6(H) <=5.6 % 08/16/2025 10:23 AM [employer] [facility] EST. AVG GLUCOSE, A1C 143 mg/dL 08/16/2025 10:23 AM [employer] [facility] Blood Venipuncture / Unknown 08/14/2025 2:26 AM CDT 08/14/2025 5:23 AM CDT Narrative [facility] - 08/16/2025 10:23 AM [employer] HGB A1C INTERPRETATION NORMAL: <5.7% PRE-DIABETES: 5.7 - 6.4% DIABETES: 6.5% OR GREATER us Ben Porter MD CHEMISTRY ORDERABLES Final R esult Performing Organization Address City/[facility]/ZIP Co de Phone Number [facility] CLIA # [id number] [address] [address] * (ABNORMAL) LIPID PANEL (08/14/2025 2:26 AM CDT) [facility] Signature CHOLESTEROL 145 <200 mg/dL 08/14/2025 12:33 PM CDT [facility] TRIGLYCERIDE 158(H) <150 mg/dL 08/14/2025 12:33 PM T [facility] HDL 27(L) 40 - 59 mg/dL 08/14/2025 12:33 PM CDT [facility] LDL CALCULATED 86 <100 mg/dL 08/14/2025 12:33 PM T [facility] NON-HDL CHOLESTEROL 118 <130 mg/dL 08/14/2025 12:33 PM T [facility] Blood Venipuncture / Unknown 08/14/2025 2:26 AM CDT 08/14/2025 5:23 AM CDT [facility] - 08/14/2025 12:33 PM CDT TOTAL CHOLESTEROL mg/dL Desirable <200 [...] LDL >160, High LDL >190, Very high LDL calculated using the Friedewald equation. ATPIII Guidelines Reference Ranges for Lipid Panels (NCEP/AMA) . us Annel Leonardo NP CHEMISTRY ORDERABLES Final Resul t [facility] CLIA # [id number] [address] [place], [place] [address] [address] * BLOOD CULTURE (08/14/2025 2:24 AM CDT) Only the most recent of2 resultswithin the time period is included. [facility] BLOOD CULTURE No growth 08/19/2025 4:35 AM [employer] [facility] Blood (Peripheral) Venipuncture / Unknown 08/14/2025 2:24 AM CDT 08/14/2025 5:20 AM CDT Ben Porter MD MICROBIOLOGY - GENERAL ORDER OBEY Final Result Performing Organization Address [facility]/ZIP Co de Phone Number [facility] CLIA # [id number] [address] [address] [place] [address] * (ABNORMAL) TROPONIN (08/13/2025 5:17 PM CDT) [facility] TROPONIN T, 5TH GEN 319(HH) <=15 ng/L 08/13/2025 5:59 PM CDT [facility] Blood Venipuncture / Unknown 08/13/2025 5:17 PM CDT 08/13/2025 5:24 PM CDT Narrative [facility] - 08/13/2025 5:59 PM CDT Troponin elevated. us Iraida Roberto MD CHEMISTRY ORDERABLES Final Result Performing Organization Address City/[facility]/ZIP Co de Phone Number [facility] CLIA # [id number] [address] [address] [place] [address] * (ABNORMAL) COMPREHENSIVE METABOLIC PANEL (08/13/2025 5:17 PM CDT) Only the most recent of3 resultswithin the time period is included. [facility] SODIUM 139 136 - 145 mmol/L 08/13/2025 6:13 PM [facility] POTASSIUM 4.9 3.5 - 5.1 mmol/L 08/13/2025 6:13 PM [facility] Comment:Slightly hemolyzed. Result may be falsely elevated. CHLORIDE 95(L) 98 - 107 mmol/L 08/13/2025 6:13 PM [facility] CO2 29 22 - 29 mmol/L 08/13/2025 6:13 PM [facility] CALCIUM 9.1 8.6 - 10.0 mg/dL 08/13/2025 6:13 PM [facility] BUN 30(H) 6 - 20 mg/dL 08/13/2025 6:13 PM [facility] CREATININE 5.52(H) 0.67 - 1.17 mg/dL 08/13/2025 6:13 PM [facility] GLUCOSE 60(L) 74 - 99 mg/dL 08/13/2025 6:13 PM [facility] TOTAL PROTEIN 7.9 6.4 - 8.3 g/dL 08/13/2025 6:13 PM [facility] ALBUMIN 3.8 3.5 - 5.2 g/dL 08/13/2025 6:13 PM [facility] BILIRUBIN TOTAL 0.4 0.0 - 1.0 mg/dL 08/13/2025 6:13 PM [facility] ALKALINE PHOSPHATASE 84 40 - 129 U/L 08/13/2025 6:13 PM [facility] AST 26 10 - 50 U/L 08/13/2025 6:13 PM [facility] Comment:Hemolysis present. Result may be falsely elevated. ALT 15 <=50 U/L 08/13/2025 6:13 PM [facility] GFR 13(L) >=60 mL/min/1. 73 sq meter 08/13/2025 6:13 PM [facility] Comment:eGFR calculated with 2020 CKD-EPI equation. Vegetarian diet, extremely high or low muscle mass, and may affect results. Cystatin C with Glomerular Filtration Rate is a suitable alternative for these patients. ANION GAP 15 9 - 20 mmol/L 08/13/2025 6:13 PM CDT [facility] Blood Venipuncture / Unknown 08/13/2025 5:17 PM CDT 08/13/2025 5:24 PM CDT us Iraida Roberto MD CHEMISTRY ORDERABLES Final Result [facility] CLIA # [id number] [address] [address] * EKG 12-LEAD (08/13/2025 5:13 PM CDT) Only the most recent of2 resultswithin the time period is included. 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 : 1990 Requested By: Order Number: [id number] Mckay MD: Amina Figueroa Measurements Intervals [place] Rate: 86 P: 52 VT: 158 QRS: 62 QRSD: 88 T: 73 QT: 394 QTc: 471 Interpretive Statements Normal sinus rhythm Possible Left atrial enlargement Borderline ECG Electronically Signed On 08-15-2025 12:08:21 [employer] by Amina Figueroa Procedure Note Provider, Historical - 08/15/[address] [address] Test Date: 2025-08-13 Pat Name: VIDA ROSEMARY Department: 11 Room: 17 17 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 : 1990 Requested By: Order Number: [id number] Reading MD: Amina Figueroa Measurements Intervals [place] Rate: 86 P: 52 VT: 158 QRS: 62 QRSD: 88 T: 73 QT: 394 QTc: 471 Interpretive Statements Normal sinus rhythm Possible Left atrial enlargement Borderline ECG Electronically Signed On 08-15-2025 12:08:21 [employer] by Amina Figueroa Protocol [facility] MD ECG ORDERABLES Final Result INTERFACE SYSTEM Refer to clinic/hospital department * XR CHEST PA AND LATERAL 2 VW (08/13/2025 12:48 PM CDT) Anatomical Region Laterality Modality Chest Computed Radiogr aphy 08/13/2025 12:4 8 PM CDT Impressions 08/13/2025 12:59 PM CDT IMPRESSION: Please see below. Exam: XR CHEST PA AND LATERAL 2 VW Date/Time of Exam: 08/13/2025 12:48 PM REASON FOR EXAM: Shortness of Breath SOB. DIAGNOSIS: See Reason for Exam. Findings: Comparison is made to the prior examination performed 05/16/2025 The lungs are clear. There is no pneumothorax or pleural effusion. The heart appears borderline enlarged. Mediastinum is stable. Osseous thorax is intact with mild thoracic spondylosis. IMPRESSION: Cardiomegaly without evidence of acute pulmonary process, similar to the prior examination. Narrative Procedure Note Constantin Crum MD - 08/13/2025 IMPRESSION: Please see below. Exam: XR CHEST PA AND LATERAL 2 VW Date/Time of Exam: 08/13/2025 12:48 PM REASON FOR EXAM: Shortness of Breath SOB. DIAGNOSIS: See Reason for Exam. Findings: Comparison is made to the prior examination performed 05/16/2025 The lungs are clear. There is no pneumothorax or pleural effusion. The heart appears borderline enlarged. Mediastinum is stable. Osseous thorax is intact with mild thoracic spondylosis. IMPRESSION: Cardiomegaly without evidence of acute pulmonary process, similar to the prior examination. Scott Holguin MD DIAGNOSTIC IMAGING OR DERABLES Final Result * (ABNORMAL) TROPONIN BASELINE, 5TH GEN (08/13/2025 12:23 PM CDT) Pathologist [facility] TROPONIN T, BASELINE 5TH GEN 343(HH) <=15 ng/L 08/13/2025 1:07 PM CDT [facility] Comment:Hemolysis can falsel y decrease Troponin quantitation. Blood BLOOD SPECIMEN / Unknown Venipuncture / Unknown 08/13/2025 12:23 PM CDT 08/13/2025 12:34 PM CDT Narrative [facility] - 08/13/2025 1:07 PM CDT Troponin elevated. Scott Holguin MD CHEMISTRY ORDERABLES Final Result [facility] CLIA # [id number] [address] [place] [address] * TSH (08/13/2025 12:23 PM CDT) Pathologist [facility] TSH 3.78 0.27 - 4.20 uIU/mL 08/13/2025 1:08 PM CDT [facility] Blood BLOOD SPECIMEN / Unknown Venipuncture / Unknown 08/13/2025 12:23 PM CDT 08/13/2025 12:34 PM CDT Scott Holguin MD CHEMISTRY ORDERABLES Final Result Performing Organization Address City/[facility]/ZIP Co de Phone Number [facility] CLIA # [id number] [address] [place] [address] * (ABNORMAL) BRAIN NATRIURETIC PEPTIDE, BNP OR PROBNP (08/13/2025 12:23 PM CDT) Pathologist [facility] PROBNP, N TERMINAL >70,000(H ) 0 - 125 pg/mL 08/13/2025 1:39 PM CDT [facility] Comment: INTERPRETIVE COMMENT based on diagnosis: [...] BLOOD SPECIMEN / Unknown Venipuncture / Unknown 08/13/2025 12:23 PM CDT 08/13/2025 12:34 PM CDT Scott Holguin MD CHEMISTRY ORDERABLES Final Result Performing Organization Address City/[facility]/ZIP Co de Phone Number [facility] CLIA # [id number] [address] [place] [address] * MAGNESIUM LEVEL (08/13/2025 12:23 PM CDT) MAGNESIUM 2.5 1.6 - 2.6 mg/dL 08/13/2025 1:08 PM CDT [facility] Blood BLOOD SPECIMEN / Unknown Venipuncture / Unknown 08/13/2025 12:23 PM CDT 08/13/2025 12:34 PM CDT Scott Holguin MD CHEMISTRY ORDERABLES [id number] [address] [place] [address] * LIPASE (08/13/2025 12:23 PM CDT) LIPASE 35 13 - 60 U/L 08/13/2025 1:08 PM CDT [facility] Blood BLOOD SPECIMEN / Unknown Venipuncture / Unknown 08/13/2025 12:23 PM CDT 08/13/2025 12:34 PM CDT Scott Holguin MD CHEMISTRY ORDERABLES Final Result [facility] # [id number] [address] [place] [address] * MRI ANKLE WO CONTRAST LEFT (08/11/2025 2:20 PM CDT) Anatomical Region Laterality Modality Ankle / Foot Magnetic Resonan ce 08/11/2025 2:23 PM CDT Impressions 08/11/2025 2:47 PM CDT IMPRESSION: Please see below. Exam: MRI ANKLE WO CONTRAST LEFT Date/Time of Exam: 08/11/2025 2:20 PM Reason For Exam: Ankle pain, neg xray, Ankle pain, stress fracture suspected, neg xray. Diagnosis: Acute left ankle pain. Technique: MRI of the left ankle was performed without the administration of intravenous contrast. Comparison: Radiographs from 05/31/2025. Findings: The exam is degraded by motion artifact. There is subacute appearing disruption of the anterior talofibular ligament. The calcaneofibular, posterior talofibular, syndesmotic and deltoid ligaments appear intact with ligamentous thickening suggestive of remote injury. The extensor tendons appear intact. The flexor tendons appear intact. The peroneal tendons appear intact. There is prominent flexor and peroneal tenosynovitis with suspected debris within the peroneal tendon sheath. The Achilles tendon appears intact. The plantar fascia is intact and within normal limits. There is no evidence of acute plantar fasciitis. There is no significant traction calcaneal enthesopathy at the plantar fascial origin. The joints are anatomically aligned. The talar dome appears intact. There is no significant arthrosis. There is a physiologic amount of joint fluid. There is no evidence of an acute osseous abnormality. There is a moderate degree of nonspecific subcutaneous soft tissue edema. There is no abnormal soft tissue fluid collection. There is a mild degree of nonspecific muscle edema. The sinus Tarsi is within normal limits. IMPRESSION: Motion limited exam. 1. No acute osseous abnormality. 2. Subacute appearing disruption of the anterior talofibular ligament. 3. Prominent peroneal and flexor tenosynovitis. 4. Nonspecific subcutaneous soft tissue and multifocal muscle edema without a discrete fluid collection. Narrative Procedure Note Constantin Montenegro, - 08/11/2025 IMPRESSION: Please see below. Exam: MRI ANKLE WO CONTRAST LEFT Date/Time of Exam: 08/11/2025 2:20 PM Reason For Exam: Ankle pain, neg xray, Ankle pain, stress fracture suspected, neg xray. Diagnosis: Acute left ankle pain. Technique: MRI of the left ankle was performed without the administration of intravenous contrast. Comparison: Radiographs from 05/31/2025. Findings: The exam is degraded by motion artifact. There is subacute appearing disruption of the anterior talofibular ligament. The calcaneofibular, posterior talofibular, syndesmotic and deltoid ligaments appear intact with ligamentous thickening suggestive of remote injury. The extensor tendons appear intact. The flexor tendons appear intact. The peroneal tendons appear intact. There is prominent flexor and peroneal tenosynovitis with suspected debris within the peroneal tendon sheath. The Achilles tendon appears intact. The plantar fascia is intact and within normal limits. There is no evidence of acute plantar fasciitis. There is no significant traction calcaneal enthesopathy at the plantar fascial origin. The joints are anatomically aligned. The talar dome appears intact. There is no significant arthrosis. There is a physiologic amount of joint fluid. There is no evidence of an acute osseous abnormality. There is a moderate degree of nonspecific subcutaneous soft tissue edema. There is no abnormal soft tissue fluid collection. There is a mild degree of nonspecific muscle edema. The sinus Tarsi is within normal limits. IMPRESSION: Motion limited exam. 1. No acute osseous abnormality. 2. Subacute appearing disruption of the anterior talofibular ligament. 3. Prominent peroneal and flexor tenosynovitis. 4. Nonspecific subcutaneous soft tissue and multifocal muscle edema without a discrete fluid collection. us Duke Alarcon MD MR ORDERABLES Final Res ult * PUGH RETINAL PHOTOCOAGULATION - OU - BOTH EYES (07/14/2025 10:08 AM CDT) Lucille [facility] - 07/14/2025 10:08 AM CDT Time Out Confirmed correct patient, procedure, site, and patient consented. Anesthesia Topical anesthesia was used. Anesthetic medications included Lidocaine 2%, Proparacaine 0.5%, Tetracaine 0.5%. Laser Information Right Eye The type of laser was argon. Color was green. The duration in seconds was 0.07. Laser power was 450. Total spots was 582. Left Eye The type of laser was argon. Color was green. The duration in seconds was 0.07. Laser power was 450. Total spots was 560. Post-op Right Eye The patient tolerated the procedure well. There were no complications. The patient received written and verbal post procedure care education. Left Eye The patient tolerated the procedure well. There were no complications. The patient received written and verbal post procedure care education. Notes Panretinal Laser Photocoagulation performed using indirect laser. Scleral depression was performed to perform anterior laser. Kim Servin MD [facility] PROCEDURES Final R esult Performing Organization Address [facility] de Phone Number [facility]# [id number] [address] [address] * EYE DROPS (07/14/2025 10:07 AM CDT) Narrative [facility] - 07/14/2025 10:07 AM CDT .Eye drop orders per protocol for PRP/FLP/LRP (lasers) 1 drop phenylephrine (AK-DILATE, MYDFRIN) 2.5% ophthalmic solution in laser eye only 1 drop 1 % tropicamide (MYDRIACYL) 1% ophthalmic solution in laser eye only 1 drop hydroxypropyl methylcellulose (GONAK) 2.5% ophthalmic solution (GONIOSOL) applied topically before laser in laser eye (based on availability) if unavailable use sodium hyaluronate (HEALON, PROVISC) 1% intraocular injection syringe 5 drops proparacaine (OPHTHAINE) 0.5% ophthalmic solution for provider before laser in laser eye Result [facility] Kim Servin MD [facility] PROCEDURES Final R esult Performing Organization Address [facility] de Phone Number [facility]# [id number] [address] [address] * EYE DROPS (07/14/2025 10:07 AM CDT) Lucille [facility] - 07/14/2025 10:07 AM CDT Eye drop orders per protocol for Basic Box Inspector Eye Exam (Non-Dilated) Instill proparacaine (OPHTHAINE) 0.5% ophthalmic solution. Amount: 1 drop per eye prior to tonometry If applanation is preferred method of tonometry: Instill fluorescein-benoxinate (FLURATE) 0.3-0.4 % ophthalmic solution 1 drop per eye during applanation us Kim Servin MD [facility] PROCEDURES Final R esult [facility] CLIA# [id number] [address] [place] [address] * INTRAVITREAL INJECTION, PHARMACOLOGIC AGENT - OU - BOTH EYES (07/07/2025 12:58 PM CDT) Narrative [facility] - 07/07/2025 12:58 PM CDT Time Out 07/07/2025. 12:58 PM. Confirmed correct patient, procedure, site, and patient consented. Anesthesia Topical anesthesia was used. Anesthetic medications included Proparacaine 0.5%, Tetracaine 0.5%. Procedure Right Eye Preparation included 0.25% betadine irrigation. A (32g) needle was used. Injection: 2 mg aflibercept 2 mg/0.05 mL Route: Intravitreal, Site: Eye, Right ND: [id number], Lot: [id number], Expiration date: 09/12/2026 Left Eye Preparation included 0.25% betadine irrigation. A (32g) needle was used. Injection: 2 mg aflibercept 2 mg/0.05 mL Route: Intravitreal, Site: Eye, Left ND: [id number], Lot: [id number], Expiration date: 09/12/2026 Post-op Right Eye Post injection exam found visual acuity of at least counting fingers. The patient tolerated the procedure well. There were no complications. The patient received written and verbal post procedure care education. Left Eye Post injection exam found visual acuity of at least counting fingers. The patient tolerated the procedure well. There were no complications. The patient received written and verbal post procedure care education. Notes Lot on consent. 3.5 mm supratemporally each eye. Result [facility] Kim Servin MD [facility] PROCED[facility] Final R esult Performing Organization Address [facility] Co de Phone Number [facility]# [id number] [address] [address] * EYE DROPS (07/07/2025 12:57 PM CDT) Narrative [facility] - 07/07/2025 12:57 PM CDT Medications Eye Drops: 2 Drop lidocaine (PF) 3.5 % Route: Topical, Site: Eye, Bilateral ND: [id number], Lot: [id number] Drop povidone-iodine in balanced salt solution 0.25% Route: Topical, Site: Eye, Bilateral NDC: [id number], Lot: [id number], Expiration date: 07/08/2025 5 Drop proparacaine 0.5 % Route: Topical, Site: Eye, Bilateral NDC: 05245-750-76, Lot: [id number], Expiration date: 03/12/2027 5 Drop tetracaine HCl (PF) 0.5 % Route: Topical, Site: Eye, Bilateral ND: 8894-6233-46, Lot: [id number] Notes Eye drop orders per protocol for Intravitreal Injection Administer the following medications approximately 1 minute apart into the procedural/operative/affected eye 5 drops proparacaine (OPHTHAINE) 0.5% ophthalmic solution 5 drops of tetracaine (PF) 0.5% ophthalmic solution 5 drop of betadine mixture Kim Servin MD OPHTH CLINIC PROCEDURES Final R esult Performing Organization Address [facility] Co de Phone Number [facility]# [id number] [address] [place] [address] * OCT, RETINA - OU - BOTH EYES (07/07/2025 11:58 AM CDT) Narrative [facility] OPHTHALMOLOG[facility] ORDERS - 07/07/2025 12:57 PM CDT RIGHT EYE: Mild macular edema, Intraretinal cystoid spaces, and intraretinal hyper-reflective foci. Mild intraretinal fluid LEFT EYE: Diabetic Macular Edema - worsened, Intraretinal cystoid spaces, intraretinal hyper-reflective foci, and disruption of outer-retinal layers. Kim Servin MD OPHTH TOMOGRAPHY Final Result Performing Organization Address [facility]/ZIP Co de Phone Number [facility] OPHTHALMOLOGY ORDERS * EYE DROPS (07/07/2025 11:23 AM CDT) Narrative [facility] - 07/07/2025 12:57 PM CDT Medications Eye Drops: 1 Drop phenylephrine (AK-DILATE, MYDFRIN) 2.5% ophthalmic solution Route: Both Eyes [facility]: 61358-195-41, Lot: [id number], Expiration date: 11/13/2026 1 Drop proparacaine (OPHTHAINE) 0.5% ophthalmic solution Route: Both Eyes ND: [id number], Lot: [id number], Expiration date: 12/11/2026 1 Drop tropicamide (MYDRIACYL) 1% ophthalmic solution Route: Both Eyes ND: 22781-286-15, Lot: [id number], Expiration date: 12/11/2026 Notes Eye drop orders per protocol for Basic Box Inspector Eye Exam (Dilated) 1 Drop proparacaine (OPHTHAINE) 0.5% ophthalmic solution prior to tonometry 1 Drop tropicamide (MYDRIACYL) 1% ophthalmic solution 1 Drop phenylephrine (AK-DILATE, MYDFRIN) 2.5% ophthalmic solution Kim Servin MD OPH CLINIC PROCEDURES Final R esult [facility] CLIA# [id number] [address] [place] [address] * CT ABDOMEN PELVIS WO CONTRAST (08/07/2024 [...] MD CT ORDERABLES Final Re sult * MICROALBUMIN/CREATININE RATIO, RANDOM UR (07/11/2015 10:53 PM CDT) MICROALBUMIN, URINE 67.8 mg/dL 07/11/2015 11:45 PM T [facility] CREATININE, URINE 163.8 40.0 - 278.0 mg/dL 07/11/2015 11:45 PM [facility] Comment: Reference Range varies with fluid intake and diet. MICROALBUMIN/CR EAT RATIO, UR 413.9 mg/g Creatinine 07/11/2015 11:45 PM T [facility] Comment: Condition mg/g Creatinine Normal Males <17 Normal Females <25 Microalbuminuria Males 17-299 Microalbuminuria Females 25-299 Overt proteinuria >=300 Urine 07/11/2015 10:5 3 PM CDT 07/11/2015 10:53 PM CDT Jyoti Shirley PEDIATRIC NEUROLOGIST URINE ORDERABLES Final Result [facility] CLIA # [id number] [address] [address] [facility] CLIA # [id number] [address] [address] from Last 3 Months or Most Recently Relevant to Health Maintenance Additional Health Concerns Active Problems Noted Date Diagnosed Date Heart Failure Problem 08/18/2025 Insurance [place] [place] [address] PPO [facility] [place] [address] RX [employer] RX Member Subscriber Plan / Payer (Ef fective 2025-Present) Name:Vida San Relation to Subscriber:Not on file Name:Vida San Subscriber ID:Not on file Date of :1990 Payer ID:Not on file Group ID:[id number] Type:RX Medicare Part D Address: [facility] [place] RX INFOCROSSING Medicaid Advance Directives For more information, please contact: [phone] * Full Code (Latest Code Status on File) Date Activated Date Inactivated Comments 08/16/2025 10:57 AM 08/16/2025 9:23 PM * Full Code Date Activated Date Inactivated Comments 08/13/2025 11:04 PM 08/16/2025 10:57 AM * Full Code Date Activated Date Inactivated Comments 05/16/2025 11:41 [...] distress) - Non-Invasive (i.e. BiPAP, CPAP): Yes Care Teams Brain Wave Technician Relationship Specialty Start Date End Date Duke Alarcon MD [address] [phone] PCP - General Family Practice 08/10/24
--- OUTSIDE RECORDS SUMMARY | 2025-09-18 10:19 | XMS_ITS | Encounter Summary ---
Author Organization [facility] Address [address] [place] [address] Care Team Providers Care Data Processing Supervisor Name Role Phone Duke Alarcon MD Primary Care Provider +1 [phone] Reason for Visit * Reason Comments Med Refill Encounter Details Date Type Department Care Team (Late st Contact Info) Description 09/16/2025 Refill [facility] Family Medicine [address] [address] Duke Alarcon MD [address] [address] Type 1 diabetes mellitus with chronic kidney disease on chronic dialysis ([facility]) Social History Tobacco Use Types Packs/Day Years [...] worry about transportation for future doctor visits, 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 No 2024 Housing Stability Answer Date Recorded Do you worry you won t have a steady place to sleep or struggle to pay rent or mortgage? No 08/25/2025 Utility Needs Answer Date Recorded Do you have difficulty payin g for utility costs ([employer], water or gas bills)? No 08/25/2025 Medication [...] on file Legal Sex Male 3:23 AM PHARMACEUTICAL WORKER Gender Identity Not on file Sexual Orientation Not on file documented as of this encounter Plan of Treatment Upcoming Encounters Date Type Department Care Team (Late st Contact Info) Description 09/27/2025 9:30 AM PHARMACEUTICAL WORKER Office Visit [facility] Line Crew Supervisor Optometry [facility] [address] [place] [address] Constantin Bales, OD [address] [place] [phone] 10/20/2025 3:20 PM PHARMACEUTICAL WORKER Office Visit [facility] Family Medicine [address] [phone] Duke Alarcon MD [address] [phone] documented as of this encounter Goals Goal Patient Goal Type Associated Problems Recent Progress Patient-Stated? Author Heart Failure Goal Care Plan Heart Failure Problem No Faye Denny documented as of this encounter Visit Diagnoses Diagnosis Type 1 diabetes mellitus with chronic kidney disease on chronic dialysis ([facility]) documented in this encounter Additional Health Concerns Active Problems Noted Date Diagnosed Date Heart Failure Problem 08/18/2025 documented as of this encounter Care Teams Data Processing Supervisor Relationship Specialty Start Date End Date Duke Alarcon MD [address] [phone] PCP - General Family Practice 08/10/24 documented as of this encounter
--- OUTSIDE RECORDS SUMMARY | 2025-09-18 10:19 | XMS_ITS | Encounter Summary ---
Author Organization [facility] Address [address] [place] [address] Care Team Providers Care Engineering Job Titles Name Role Phone Karlo Banks MD Primary Care Provider +1 [phone] Encounter Details Date Type Department Care Team (Latest Contact Info) Description 01/24/2004 Outpatient Historical [facility] [address] [place] [phone] Holland Bell MD [address] [place] [address] ASTHMA UNSPECIFIED (Primary Dx) Social History Tobacco Use Types Packs/Day Years Used Date Smoking Tobacco: Never Assessed Sex and Gender Information Value Date Recorded Sex Assigned at Not on file 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
--- OUTSIDE RECORDS SUMMARY | 2025-09-18 10:19 | XMS_ITS | Encounter Summary ---
Author Organization [facility] Address [address] [place] [address] Care Team Providers Care Telehealth Nurse Educator Name Role Phone Duke Alarcon MD Primary Care Provider +1 [phone] Encounter Details Date Type Department Care Team (Late st Contact Info) Description 09/14/2025 External Device Data STL ABSTRACTION Provider, [...] worry about transportation for future doctor visits, diamond picker medication, etc.? No 2024 Housing Stability Answer [...] on file Legal Sex Male 3:23 AM SATELLITE SPECIALIST Gender Identity Not on file Sexual Orientation Not on file documented as of this encounter Plan of Treatment Upcoming Encounters Date Type Department Care Team (Late st Contact Info) Description 09/27/2025 9:30 AM SATELLITE SPECIALIST Office Visit [facility] Fitting Supervisor Optometry [facility] [address] [place] [address] Constantin Bales, OD [address] [place] [address] 10/20/2025 3:20 PM SATELLITE SPECIALIST Office Visit [facility] Family Medicine [place] [address] [address] Duke Alarcon MD [address] [phone] documented as of this encounter Goals Goal Patient Goal Type Associated Problems Recent Progress Patient-Stated? Author Heart Failure Goal Care Plan Heart Failure Problem No Faye Denny documented as of this encounter Visit Diagnoses Not on filedocumented in this encounter Additional Health Concerns Active Problems Noted Date Diagnosed Date Heart Failure Problem 08/18/2025 documented as of this encounter Care Teams Telehealth Nurse Educator Relationship Specialty Start Date End Date Duke Alarcon MD [address] [address] PCP - General Family Practice 08/10/24 documented as of this encounter
--- OUTSIDE RECORDS SUMMARY | 2025-09-18 10:19 | XMS_ITS | Encounter Summary ---
Author Organization [facility] Address [address] [place] [address] Care Team Providers Care Water Purifier Operator Name Role Phone Karlo Banks MD Primary Care Provider +1 [phone] Encounter Details Date Type Department Care Team (Latest Contact Info) Description 11/01/2003 Outpatient Historical [facility] [address] [place] [phone] Holland Bell MD [address] [place] [address] ASTHMA UNSPECIFIED (Primary Dx) Social History Tobacco Use Types Packs/Day Years Used Date Smoking Tobacco: Never Assessed Sex and Gender Information Value Date Recorded Sex Assigned at Not on file 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
--- OUTSIDE RECORDS SUMMARY | 2025-09-18 10:19 | XMS_ITS | Encounter Summary ---
Author Organization [facility] Address [address] [place] [address] Care Team Providers Care Auto Parts Professional Name Role Phone Karlo Banks MD Primary Care Provider [phone] [phone] Encounter Details Date Type Department Care Team (Late st Contact Info) Description 07/11/2015 Lab Requisition [facility] [place] [address] [place] [phone] Jyoti Shirley, FERMENTING CELLARS RECEIVER [address] [place] [phone] Social History Tobacco Use Types Packs/Day Years Used Date Smoking Tobacco: Former Cigarettes Alcohol Use Standard Drinks/Week Comments No 0 (1 standard drink = 0.6 oz pur e alcohol) Sex and Gender Information Value Date Recorded Sex Assigned at Not on file 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 MICROALBUMIN/CR EAT RATIO, UR 413.9 mg/g Creatinine 07/11/2015 11:45 PM CDT [facility] Comment: Condition mg/g Creatinine Normal Males <17 Normal Females <25 Microalbuminuria Males 17-299 Microalbuminuria Females 25-299 Overt proteinuria >=300 Urine 07/11/2015 10:5 3 PM CDT 07/11/2015 10:53 PM CDT Jyoti Shirley FERMENTING CELLARS RECEIVER URINE ORDERABLES Final Result [facility] CLIA # [id number] [address] [place] [address] * (ABNORMAL) LIPID PANEL (07/11/2015 10:53 PM CDT) CHOLESTEROL 204(H) <200 mg/dL 07/11/2015 11:21 PM CDT [facility] TRIGLYCERIDE 276(H) <150 mg/dL 07/11/2015 11:21 PM CDT [facility] HDL 25(L) 40 - 59 mg/dL 07/11/2015 11:21 PM CDT [facility] LDL CALCULATED 124(H) <100 mg/dL 07/11/2015 11:21 PM CDT [facility] NON-HDL CHOLESTEROL 179(H) <130 mg/dL 07/11/2015 11:21 PM CDT [facility] Blood 07/11/2015 10:5 3 PM CDT 07/11/2015 10:53 PM CDT Narrative [facility] - 07/11/2015 11:21 PM CDT TOTAL [...] >=220 Based on AHA/NCEP Guidelines Jyoti Shirley [facility] CHEMISTRY ORDERABLES Final Resu lt Performing Organization Address [facility] de Phone Number [facility] CLIA # [id number] [address] [place] [address] * (ABNORMAL) HEMOGLOBIN A1C (07/11/2015 10:53 PM CDT) HEMOGLOBIN A1C 10.6(H) 4.8 - 5.9 % 07/11/2015 11:16 PM CDT [facility] EST. AVG GLUCOSE, A1C 258 mg/dL 07/11/2015 11:16 PM CDT [facility] Blood 07/11/2015 10:5 3 PM CDT 07/11/2015 10:53 PM CDT Jyotivadim Shirley [facility] CHEMISTRY ORDERABLES Final Resu lt Performing Organization Address [facility]/ZIP Co de Phone Number [facility] CLIA # [id number] [address] [place] [phone] * (ABNORMAL) COMPREHENSIVE METABOLIC PANEL (07/11/2015 10:53 PM CDT) SODIUM 129(L) 136 - 145 mmol/L 07/11/2015 11:21 PM [facility] POTASSIUM 3.6 3.5 - 5.1 mmol/L 07/11/2015 11:21 PM [facility] CHLORIDE 87(L) 98 - 107 mmol/L 07/11/2015 11:21 PM [facility] CO2 25 22 - 29 mmol/L 07/11/2015 11:21 PM [facility] CALCIUM 9.3 8.6 - 10.0 mg/dL 07/11/2015 11:21 PM [facility] BUN 12 6 - 20 mg/dL 07/11/2015 11:21 PM [facility] CREATININE 0.61(L) 0.67 - 1.17 mg/dL 07/11/2015 11:21 PM [facility] GLUCOSE 287(H) 74 - 106 mg/dL 07/11/2015 11:21 PM [facility] TOTAL PROTEIN 8.1 6.6 - 8.7 g/dL 07/11/2015 11:21 PM [facility] ALBUMIN 4.5 3.5 - 5.2 g/dL 07/11/2015 11:21 PM [facility] BILIRUBIN TOTAL 2.7(H) 0.0 - 1.2 mg/dL 07/11/2015 11:21 PM [facility] ALKALINE PHOSPHATASE 93 40 - 129 U/L 07/11/2015 11:21 PM [facility] AST 19 10 - 50 U/L 07/11/2015 11:21 PM [facility] [employer] [facility] ALT 15 10 - 50 U/L 07/11/2015 11:21 PM [facility] [employer] [facility] GFR >60 >=60 mL/min/1.7 3 sq meter 07/11/2015 11:21 PM [facility] [employer] [facility] Comment: eGFR has not been validated [...] 3 sq meter 07/11/2015 11:21 PM CDT [facility] [place] ANION GAP 17 12 - 20 mmol/L 07/11/2015 11:21 PM CDT [facility] Blood 07/11/2015 10:5 3 PM CDT 07/11/2015 10:53 PM CDT Jyoti Shirley FERMENTING CELLARS RECEIVER CHEMISTRY ORDERABLES Final Resu lt [facility] [place] CLIA # [id number] [address] [place] [address] documented in this encounter Visit Diagnoses Not on filedocumented in this encounter Care Teams [employer] Parts Professional Relationship Specialty Start Date End Date Karlo Banks MD PCP - General Internal Medicine 10/14/14 01/11/21 documented as of this encounter
--- OUTSIDE RECORDS SUMMARY | 2025-09-18 10:19 | XMS_ITS | Clinical Summary ---
Author Organization [facility] Address [address] [facility] [address] [place] [address] Phone Care Team Providers Care Forepart Reducer Name Role Phone Unavailable Primary Care Provider [...] on file Legal Sex Male 5:07 AM ORACLE APPLICATION ARCHITECT Gender Identity Not on file Sexual Orientation [...] 3-dose series) 09/15 INFLUENZA VACCINE (#1) 2025 HPV VACCINES (No Doses Required) Completed
--- OUTSIDE RECORDS SUMMARY | 2025-09-18 10:20 | XMS_ITS | Encounter Summary ---
Author Organization [facility] Address [address] [place] [address] Care Team Providers Care Senior Coldfusion Developer Name Role Phone Karlo Banks MD Primary Care Provider +1 -[phone] Encounter Details Date Type Department Care Team (Latest Contact Info) Description 02/07/2004 Outpatient Historical [facility] [address] [place] [phone] Holland Bell MD [address] [place] [address] ASTHMA UNSPECIFIED (Primary Dx) Social History Tobacco Use Types Packs/Day Years Used Date Smoking Tobacco: Never Assessed Sex and Gender Information Value Date Recorded Sex Assigned at Not on file 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
--- OUTSIDE RECORDS SUMMARY | 2025-09-18 10:20 | XMS_ITS | Encounter Summary ---
Author Organization [facility] Address [address] [place] [address] Care Team Providers Care Material Requirements Planning Manager Name Role Phone Karlo Banks MD Primary Care Provider +1 [phone] Encounter Details Date Type Department Care Team (Latest Contact Info) Description 02/24/2004 Outpatient Historical [facility] [address] [place] [phone] Holland Bell MD [address] [place] [phone] CONJUNCTIVITIS NOS (Primary Dx) Social History Tobacco Use Types Packs/Day Years Used Date Smoking Tobacco: Never Assessed Sex and Gender Information Value Date Recorded Sex Assigned at Not on file 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
--- OUTSIDE RECORDS SUMMARY | 2025-09-18 10:20 | XMS_ITS | Encounter Summary ---
Author Organization [facility] Address [address] [place] [address] Care Team Providers Care Knuckler Name Role Phone Karlo Banks MD Primary Care Provider +1 -[phone] Encounter Details Date Type Department Care Team (Latest Contact Info) Description 06/04/[address] 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
[2025-09-18 10:32] LABS: Hematocrit 36.2 % (37-53); Hemoglobin 11.60 g/dL (11.27-16.99); Mean Corpuscular HGB Conc 32.0 g/dL (30-55); Mean Corpuscular Hemoglobin 30.8 pg (27-33); Mean Corpuscular Volume 96.0 fl (82-101); Nucleated Red Blood Cells % 0 %; Platelet Count 244 10^3/cmm (157-399); Red Blood Count 3.77 10^6/uL (3.85-5.65); White Blood Count 11.33 10^3/uL (3.29-11.43)
[2025-09-18] MEDS: labetalol 5 mg/mL SDV 20mL 10 MG IVP (10:39)
[2025-09-18] MEDS: ondansetron 2 mg/ML SDV 2 mL 4 MG IVP ×2 (10:40→20:30)
[2025-09-18] MEDS: morphine 4 mg/mL SDV 1 mL IVP (10:40)
--- NOTE | 2025-09-18 10:49 | W.ED.CHESTPA ---
HPI - Chest Pain General: Chief Complaint: Chest Pain Stated Complaint: chest pain; sob Time Seen by Provider: 09/18/25 10:16 Source: patient and EMS Mode of arrival: EMS Limitations: no limitations History of Present Illness: 34-year-old male is well-known to the ER has a history congestive heart failure along with end-stage renal disease on dialysis goes to dialysis Saturday. Did receive dialysis on states today has been having sharp chest pains on the left side of his chest. Had some nausea as well. Has had some mild dyspnea does not require any oxygen here. Patient did not receive dialysis today and sent him here due to his chest pain. He denies any fevers or recent illness Related Data Home Medications ?Medication ?Instructions ?Recorded ?Confirmed blood-glucose sensor (CompareAway G7 #1 ea 10/21/23 08/17/25 Sensor device) amitriptyline 50 mg tablet 50 mg PO BEDTIME 11/06/24 08/17/25 bupropion HCl 150 mg 24 hr tablet, 150 mg PO DAILY 11/06/24 08/17/25 extended release carvedilol 25 mg tablet 25 mg PO Q12H 11/06/24 08/17/25 epinephrine 0.3 mg/0.3 mL See Rx Instructions .Route .COMPLEX 11/06/24 08/17/25 injection, auto-injector aripiprazole 5 mg tablet 5 mg PO DAILY 04/12/25 08/17/25 aspirin 81 mg tablet,delayed 81 mg PO DAILY 04/12/25 08/17/25 release atorvastatin 80 mg tablet 80 mg PO BEDTIME 04/12/25 08/17/25 gabapentin 100 mg capsule 200 mg PO TID 04/12/25 08/17/25 ondansetron 4 mg disintegrating 4 mg PO Q6H PRN nausea/emesis 04/12/25 08/17/25 tablet albuterol sulfate 90 mcg/actuation 2 puff inhalation Q6H PRN 06/15/25 08/17/25 aerosol inhaler (Ventolin HFA) Shortness Of Breath clonidine HCl 0.2 mg tablet 0.2 mg PO TID 06/15/25 08/17/25 doxazosin 4 mg tablet 4 mg PO BEDTIME 06/15/25 08/17/25 insulin glargine 100 unit/mL (3 25 unit SUBCUT BID 06/15/25 08/17/25 mL) subcutaneous pen (Lantus Solostar U-100 Insulin) isosorbide mononitrate 30 mg 30 mg PO DAILY 06/15/25 08/17/25 tablet,extended release 24 hr naloxone 4 mg/actuation nasal spray See Rx Instructions .Route .COMPLEX 06/15/25 08/17/25 oxycodone 5 mg tablet 5 mg PO Q8H PRN Pain 06/15/25 08/17/25 sevelamer carbonate 800 mg tablet 800 mg PO TID 06/15/25 08/17/25 spironolactone 25 mg tablet 25 mg PO DAILY 06/15/25 08/17/25 Previous Rx's ?Medication ?Instructions ?Recorded Intraoperative Neuromonitoring #1 ea 08/22/22 insulin syringe-needle U-100 1 mL #100 ea 06/27/23 31 gauge x 5/16 (BD Insulin Syringe Ultra-Fine) pen needle, diabetic 32 gauge x #100 ea 06/27/23 1/4 (BD Ultra-Fine Micro Pen Needle) blood sugar diagnostic (True #100 ea 10/04/23 Metrix Glucose Test Strip) blood-glucose meter (True Metrix #1 ea 10/04/23 Air Glucose Meter kit) lancets 31 gauge #100 ea 10/04/23 bumetanide 1 mg tablet 1 mg PO DAILY #30 tabs 04/14/25 hydralazine 100 mg tablet 100 mg PO BID #60 tabs 04/14/25 insulin lispro 100 unit/mL See Rx Instructions .Route 04/14/25 subcutaneous pen (Humalog KwikPen .COMPLEX #15 mL (U-100) Insulin) ferrous gluconate 324 mg (37.5 mg 324 mg PO BID #60 tabs 06/18/25 iron) tablet Allergies Allergy/AdvReac Type Severity Reaction Status Date / Time bee venom protein (honey bee) Allergy Unknown Verified 08/17/25 07:40 lisinopril Allergy Unknown Verified 08/17/25 07:40 Review of Systems Card: Reports: chest pain [facility] PFSH: Medical History End stage renal disease on dialysis due to type 1 diabetes mellitus Chronic left-sided low back pain with left-sided sciatica Type 1 diabetes End stage renal disease on dialysis Opiate dependence Other stimulant abuse, uncomplicated Waking at night short of breath Snoring Hypersomnia Insomnia Noncompliance w/medication treatment due to intermit use of medication Schizophrenia Methamphetamine abuse Uncontrolled hypertension Family History Other CAD (coronary artery disease) Hypertension Stroke Social History Smoking and tobacco/nicotine status: current every day tobacco/nicotine user Alcohol intake: former Substance/Drug Use: former Date of last use: Amphetamines more than 62 days ago Caregiver/support person: Yes Lives independently: Yes Household members: other Current occupation: [employer] Physical Exam Const: COMMON NORMALS: patient oriented x3 HENMT: COMMON NORMALS: normocephalic and atraumatic HEAD & SCALP: normocephalic and atraumatic Eye: COMMON NORMALS: Equal, round and reactive pupils present and EOMs intact bilaterally PUPIL: Yes Equal, round and reactive pupils present Neck/C-Spine: COMMON NORMALS: full ROM and supple Chest: COMMONS NORMALS: normal inspection of the chest and normal palpation of entire chest wall Resp: COMMON NORMALS: normal respiratory effort, No retractions, No use of accessory muscles and clear to auscultation bilaterally AUSCULTATION: clear to auscultation bilaterally Cardio: COMMON NORMALS: regular rate, regular rhythm and No murmurs present (Cardio) RATE: regular rate RHYTHM: regular rhythm GI: COMMON NORMALS: Normal to inspection, nondistended, normoactive bowel sounds present, Soft to palpation, non-tender and no masses PALPATION: Yes Soft to palpation Extremity: COMMON NORMALS: normal to inspection and full ROM Neuro: COMMON NORMALS: patient oriented x3, moves all extremities and no focal motor deficits Psych: COMMON NORMALS: mental status grossly normal, Normal thought process present and cooperative THOUGHT PROCESS: Normal thought process present Skin: COMMON NORMALS: no rashes or lesions noted and no wounds GENERAL SKIN EXAM: no rashes or lesions noted Course Vital Signs: Vital signs: Vital Signs Temperature 97.8 F 09/18/25 10:18 Pulse Rate 85 09/18/25 11:15 Respiratory Rate 19 H 09/18/25 10:40 Blood Pressure 184/106 09/18/25 11:15 Pulse Oximetry 95 12/06/25 11:15 Oxygen Delivery Me thod Room Air 09/18/25 11:15 MDM - Chest Pain Medical Decision Making 34-year-old male history end-stage renal disease here with chest pain. Initial troponin was elevated but is at his baseline he has no signs of acute coronary syndrome his pain is atypical in nature he has no signs of pneumothorax or pulm emboli. Patient is hyperkalemic EKG interpreted did have some peaked T waves. Will give him calcium here along with insulin and dextrose. I spoke to hospitalist will admit at this time as he likely needs emergent dialysis we will trend his troponins as well. critical care time 35 minutes The high probability of a clinically significant, sudden or life threatening deterioration of the patient's renal system(s) required my full and direct attention, intervention and personal management. The critical care time is as shown. This time is in addition to time spent performing any reported procedures but includes the following: [x] Data and vital sign review and interpretation [x] Patient assessment, examination and intervention [x] Documentation [x] Medication orders and management EKG interpreted by me at 1018 normal sinus rhythm heart rate [address] elevation QRS 95 QTc 432 Medical Records I reviewed the patient's medical records. Lab Data I reviewed the patient's lab results. 09/18/25 10:28 09/18/25 10:28 Radiology Impressions Chest X-Ray 09/18/25 10:16 IMPRESSION: No acute pulmonary pathology. Increased cardiac silhouette again noted. Laboratory Results WBC 11.33 10^3/uL (3.29-11.43) 09/18/25 10:28 RBC 3.77 10^6/uL (3.85-5.65) L 09/18/25 10:28 Hgb 11.60 g/dL (11.27-16.99) 09/18/25 10:28 Hct 36.2 % (37-53) L 09/18/25 10:28 MCV 96.0 fl (82-101) 09/18/25 10:28 MCH 30.8 pg (27-33) 09/18/25 10:28 MCHC 32.0 g/dL (30-55) 09/18/25 10:28 RDW 15.5 % (12.1-15.1) H 09/18/25 10:28 Plt Count 244 10^3/cmm (157-399) 09/18/25 10:28 MPV 9.9 fL (7.4-10.4) 09/18/25 10:28 Neut % (Auto) 86.0 % 09/18/25 10:28 Lymph % (Auto) 7.9 % 09/18/25 10:28 [place] % (Auto) 4.1 % 09/18/25 10:28 Eos % (Auto) 1.1 % 09/18/25 10:28 Baso % (Auto) 0.5 % 09/18/25 10:28 Neut # (Auto) 9.72 10^3/uL (1.8-7.7) H 09/18/25 10:28 Lymph # (Auto) 0.9 10^3/uL (0.8-4.8) 09/18/25 10:28 [place] # (Auto) 0.5 10^3/uL (0.2-0.9) 09/18/25 10:28 Eos # (Auto) 0.1 10^3/uL (0.0-0.8) 09/18/25 10:28 Baso # (Auto) 0.1 10^3/uL (0.0-0.1) 09/18/25 10:28 Nucleated RBC % (auto) 0 % 09/18/25 10:28 Nucleated RBCs # 0.0 /100WBC 09/18/25 10:28 Sodium 136 mmol/L (136-145) 09/18/25 10:28 Potassium 6.9 mmol/L (3.5-5.1) H* 09/18/25 10:28 Chloride 93 mmol/L (98-107) L 09/18/25 10:28 Carbon Dioxide 27 mmol/L (22-29) 09/18/25 10:28 Anion Gap 22.9 (5-19) H 09/18/25 10:28 BUN 47 mg/dL (6-20) H 09/18/25 10:28 Creatinine 6.9 mg/dL (0.7-1.2) H* 09/18/25 10:28 GFR Calculation 9.2 mL/min (90-130) L 09/18/25 10:28 Glucose 216 mg/dL (65-115) H 09/18/25 10:28 Calculated Osmolality 301 mOsm/kg (285-295) H 09/18/25 10:28 Calcium 8.8 mg/dL (8.5-10.5) 09/18/25 10:28 Total Bilirubin 0.5 mg/dL (0.15-1.2) 09/18/25 10:28 AST 22 U/L (0-40) 09/18/25 10:28 ALT 19 U/L (0-41) 09/18/25 10:28 Alkaline Phosphatase 144 U/L (40-130) H 09/18/25 10:28 Troponin T Baseline 282 ng/L (0-15) H* 09/18/25 10:28 Total Protein 8.1 g/dL (6.6-8.7) 09/18/25 10:28 Albumin 4.8 g/dL (3.5-5.2) 09/18/25 10:28 Globulin 3.3 g/dL (1.3-4.6) 09/18/25 10:28 All radiology interpretation(s) finalized by discharge Critical Care Time Critical Care Time: Critical Care Time: Yes Total Critical Care Time: 35 Attestation: The high probability of a clinically significant, sudden or life threatening deterioration of the patient's renal system(s) required my full and direct attention, intervention and personal management. The critical care time is as shown. This time is in addition to time spent performing any reported procedures but includes the following: [x] Data and vital sign review and interpretation [x] Patient assessment, examination and intervention [x] Documentation [x] Medication orders and management Discharge Plan Discharge Patient Disposition: Admitted As Inpatient Clinical Impression: Chest pain, End stage renal disease on dialysis due to type 1 diabetes mellitus, Hyperkalemia Condition: Stable Coding Level of Care Code ED Project Design Engineer for Chg Fwd Heart Score HEART Score Components History: Slightly Suspicous EKG: Normal Age: Less than 45 yrs Risk Factors: >/=3 Risk Factors Troponin: Baseline Trop >45 ng/L HEART Score RESULT HEART Score: 4
[2025-09-18 10:54] LABS: Troponin(5th) Baseline 282 ng/L (0-15)
--- NOTE | 2025-09-18 10:58 | ECG_ITS ---
[facility] Test Date: 2025-09-18 Pat Name: Hunter San Department: Room: Gender: Male Order Entry Clerk: : 1990 Requested By: Nedra Camacho Order Number: [id number] Reading MD: MILI LOPEZ Measurements Intervals [place] Rate: 81 P: 12 DC: 174 QRS: 56 QRSD: 94 T: 93 QT: 408 QTc: 476 Interpretive Statements SINUS RHYTHM Compared to ECG 09/18/2025 10:18:55 No significant changes Electronically Signed On 09-18-2025 18:38:49 CONTROL CLERK REPAIRS by MILI LOPEZ [id number]
[2025-09-18 11:15] LABS: Alanine Aminotransferase 19 U/L (0-41); Albumin Level 4.8 g/dL (3.5-5.2); Alkaline Phosphatase 144 U/L (40-130); Anion Gap 22.9 (5-19); Aspartate Amino Transferase 22 U/L (0-40); Blood Urea Nitrogen 47 mg/dL (6-20); Calcium 8.8 mg/dL (8.5-10.5); Carbon Dioxide 27 mmol/L (22-29); Chloride 93 mmol/L (98-107); Globulin 3.3 g/dL (1.3-4.6); Glucose 216 mg/dL (65-115); Osmolality Calculated 301 mOsm/kg (285-295); Sodium 136 mmol/L (136-145); Total Protein 8.1 g/dL (6.6-8.7)
[2025-09-18 11:21] LABS: Potassium 6.9 mmol/L (3.5-5.1)
[2025-09-18 11:35] LABS: NT Pro B Type Natriuretic Pept 32984 pg/mL (0-125)
[2025-09-18] MEDS: calcium gluconate 0.1 gm/mL 10% SDV 10mL 1 GM IVP (11:36)
--- NOTE | 2025-09-18 11:40 | PC.NURSE ---
fsbg 192. verbal orders from Dr. Camacho to administer 250ml of D10 prior to insulin.
[2025-09-18] MEDS: hyDRALAzine 20 mg/mL INJ 1 mL IVP (12:05)
[2025-09-18] MEDS: insulin regular-human 100 units/1 mL 10 UNIT IVP (12:05)
--- NOTE | 2025-09-18 12:27 | PM.HP ---
Providers/Chief Complaint Primary Care Provider: Duke Alarcon Chief Complaint: chest pain; sob History of Present Illness Hunter San is a 34 year old male with a past medical history of end-stage renal disease on hemodialysis, type 1 diabetes mellitus, hypertension, chronic diastolic heart failure, that presented to the ER today with elevated potassium and chest pain. Patient has dialysis scheduled Saturday, was unable to complete dialysis this morning due to chest pain. Patient was found to have elevated troponin to 82, potassium 6.9 in the ER. Patient was given 2 sublingual nitroglycerin tablets at outlying facility, and had no chest pain upon arrival to the ER. Patient with elevated blood pressure with poor response to IV labetalol and hydralazine in the ER. Patient was treated in the ER by provider with 1 g calcium gluconate, D10, insulin. Contacted on-call nephrology who has graciously agreed for consultation and dialysis today. Also contacted on-call home care nurse Dr. Tomlinson who also graciously agrees for consultation request that the patient be placed on a nitroglycerin drip for elevated blood pressures. Patient states that he continues to have some mild chest pressure but has no chest pain and just feels weak. Patient denies current shortness of breath, nausea, vomiting, diarrhea, abdominal pain, dark tarry stools, or recent injuries or illnesses, or syncope. Patient states that he smokes approximately 1 pack/day, frequently smokes marijuana, denies illicit drug use or alcohol abuse. Patient is agreeable to admission and will be placed in CSU with medical complexity. Review of Systems General: Reports: 10 or more systems reviewed and unremarkable except in HPI and below Medications/Allergies Home Medications ?Medication ?Instructions ?Recorded ?Confirmed ?Last Taken ?Type Intraoperative Neuromonitoring #1 ea 08/22/22 09/18/25 Unknown Rx insulin syringe-needle U-100 1 mL #100 ea 06/27/23 09/18/25 Unknown Rx 31 gauge x 5/16 (BD Insulin Syringe Ultra-Fine) pen needle, diabetic 32 gauge x #100 ea 06/27/23 09/18/25 Unknown Rx 1/4 (BD Ultra-Fine Micro Pen Needle) blood sugar diagnostic (True #100 ea 10/04/23 09/18/25 Unknown Rx Metrix Glucose Test Strip) blood-glucose meter (True Metrix #1 ea 10/04/23 09/18/25 Unknown Rx Air Glucose Meter kit) lancets 31 gauge #100 ea 10/04/23 09/18/25 Unknown Rx blood-glucose sensor (Dexcom G7 #1 ea 10/21/23 09/18/25 Unknown History Sensor device) bupropion HCl 150 mg 24 hr tablet, 150 mg PO DAILY 11/06/24 09/18/25 09/17/25 History extended release epinephrine 0.3 mg/0.3 mL See Rx Instructions .Route .COMPLEX 11/06/24 09/18/25 Unknown History injection, auto-injector aripiprazole 5 mg tablet 5 mg PO DAILY 04/12/25 09/18/25 09/17/25 History aspirin 81 mg tablet,delayed 81 mg PO DAILY 04/12/25 09/18/25 09/18/25 08:00 History release gabapentin 100 mg capsule 200 mg PO TID 04/12/25 09/18/25 09/17/25 History ondansetron 4 mg disintegrating 4 mg PO Q6H PRN nausea/emesis 04/12/25 09/18/25 Unknown History tablet bumetanide 1 mg tablet 1 mg PO DAILY #30 tabs 04/14/25 09/18/25 09/17/25 Rx insulin lispro 100 unit/mL See Rx Instructions .Route 04/14/25 09/18/25 09/17/25 Rx subcutaneous pen (Humalog KwikPen .COMPLEX #15 mL (U-100) Insulin) albuterol sulfate 90 mcg/actuation 2 puff inhalation Q6H PRN 06/15/25 09/18/25 09/17/25 History aerosol inhaler (Ventolin HFA) Shortness Of Breath insulin glargine 100 unit/mL (3 25 unit SUBCUT BID 06/15/25 09/18/25 06/15/25 History mL) subcutaneous pen (Lantus Solostar U-100 Insulin) isosorbide mononitrate 30 mg 30 mg PO DAILY 06/15/25 09/18/25 09/18/25 08:00 History tablet,extended release 24 hr naloxone 4 mg/actuation nasal spray See Rx Instructions .Route .COMPLEX 06/15/25 09/18/25 Unknown History sevelamer carbonate 800 mg tablet 1,600 mg PO TID 06/15/25 09/18/25 09/17/25 History ferrous gluconate 324 mg (37.5 mg 324 mg PO BID #60 tabs 06/18/25 09/18/25 Unknown Rx iron) tablet amlodipine 10 mg tablet 10 mg PO DAILY 09/18/25 09/18/25 09/18/25 08:00 History clonidine 0.2 mg/24 hr weekly 1 patch topical Q7D 09/18/25 09/18/25 Unknown History transdermal patch hydralazine 100 mg tablet 100 mg PO Q8H 09/18/25 09/18/25 09/17/25 History morphine 15 mg immediate release 15 mg PO Q8H PRN Pain 09/18/25 09/18/25 09/17/25 History tablet sodium zirconium cyclosilicate 5 5 g PO Q48H 09/18/25 09/18/25 09/14/25 History gram oral powder packet (Lokelma) Allergies Allergy/AdvReac Type Severity Reaction Status Date / Time bee venom protein (honey bee) Allergy Unknown Verified 08/17/25 07:40 lisinopril Allergy Unknown Verified 08/17/25 07:40 PFSH Acute PFSH: Medical History (Updated 09/18/25 @ 11:29 by Nedra Camacho MD) End stage renal disease on dialysis due to type 1 diabetes mellitus Chronic left-sided low back pain with left-sided sciatica Type 1 diabetes End stage renal disease on dialysis Opiate dependence Other stimulant abuse, uncomplicated Waking at night short of breath Snoring Hypersomnia Insomnia Noncompliance w/medication treatment due to intermit use of medication Schizophrenia Methamphetamine abuse Uncontrolled hypertension Family History Other CAD (coronary artery disease) Hypertension Stroke Social History Smoking and tobacco/nicotine status: current every day tobacco/nicotine user Alcohol intake: former Substance/Drug Use: former Date of last use: Amphetamines more than 62 days ago Caregiver/support person: Yes Lives independently: Yes Household members: other 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 Vitals/I&O/Wt Last Vital Signs Temp 97.8 F 09/18/25 10:18 Pulse 85 09/18/25 11:30 Resp 19 H 09/18/25 10:40 BP 187/105 09/18/25 11:30 Pulse Ox 99 09/18/25 11:30 O2 Del Method Room Air 09/18/25 11:30 09/17/25 09/18/25 09/18/25 22:59 06:59 14:59 Intake Total 250 / 250 Balance 250 / 250 Weight last 48 hrs Weight 99.79 kg Physical Exam Const: COMMON NORMALS: patient oriented x3 and alert GENERAL APPEARANCE: cooperative and comfortable HENMT: COMMON NORMALS: normocephalic and moist oral mucous membranes HEAD & SCALP: normocephalic NOSE: Normal external nose present Eye: COMMON NORMALS: Equal, round and reactive pupils present Resp: COMMON NORMALS: normal respiratory effort and clear to auscultation bilaterally Cardio: COMMON NORMALS: S1 normal heart sound present and S2 normal heart sound present GI: COMMON NORMALS: Normal to inspection, nondistended, normoactive bowel sounds present Extremity: COMMON NORMALS: normal to inspection and full ROM NARRATIVE EXTREMITY EXAM: Right arm fistula palpable/non-tender Neuro: COMMON NORMALS: patient oriented x3 and CN's II-XII intact bilaterally Psych: COMMON NORMALS: cooperative, normal affect and speech normal Skin: COMMON NORMALS: no rashes or lesions noted Data 09/18/25 10:28 09/18/25 10:28 A&P Assessment and plan 1. Hyperkalemia: 2. Hypertensive emergency: 3. DM type 1 causing renal disease: 4. ESRD on hemodialysis: 5. Chest pain: 6. Elevated troponin: Plan: Hyperkalemia ESRD on Dialysis - Admitting Potassium 6.9 - Treated in ER with calcium gluconate, D10, insulin - Dialysis Schedule Saturday, , Saturday - unable to get dialysis today - Greatly appreciate nephrology consultation and management with - Planned for dialysis this afternoon Type 1 Diabetes - Resume home insulin regimen - Medium dose sliding scale insulin, POC - Carb controlled diet Hypertensive Emergency Chest Pain Elevated Troponin - States that he did not miss any of his home medications, does take a clonidine patch every 7 days this could be clonidine withdrawal -Treated in ER with IV labetalol and IV hydralazine, poor response with admitting blood pressure 194/98 - Greatly appreciate cardiology consultation and management with Dr. Briones - Telemetry monitoring - Nitro gtt, titrated to SBP <160 - Resume home medications Chronic Diastolic Congestive Heart Failure - Missed dialysis today, will need ultrafiltration this afternoon - Resume cardioprotective medications Tobacco Abuse Marijuana Use - Smokes cigarettes 1 pack/day - Nicotine patch once blood pressure is better controlled - Frequently smokes marijuana - Smoking cessation strongly advised VTE PPX: SCD's Code Status: Full Code PDMP PDMP Reviewed: Not Reviewed Attestations Medical Necessity Statement*: Patient will require inpatient hospitalization crossing 2 midnights in CSU for management of hyperkalemia, chest pain and elevated troponin, hypertensive emergency, consultation with nephrology and cardiology, and complex medical management. and High Time for a total of 75 minutes, includes reviewing past or interval history, examining/interviewing patient, placing orders, counseling patient/family/other support, updating patient/family/other support, discussing plan of care with staff, communicating with other healthcare providers, documenting encounter and coordinating care Diagnoses Hyperkalemia E87.5 Hypertensive emergency I16.1 DM type 1 causing renal disease E10.29 ESRD on hemodialysis N18.6; Z99.2 Chest pain R07.9 Elevated troponin R79.89
--- NOTE | 2025-09-18 12:28 | ECG_ITS ---
[facility] Test Date: 2025-09-18 Pat Name: Hunter San Department: Room: Gender: Male Doctor Of Chiropractic: : 1990 Requested By: Nedra Camacho Order Number: [id number] Reading MD: MILI LOPEZ Measurements Intervals [place] Rate: 89 P: 65 SC: 171 QRS: 57 QRSD: 90 T: 99 QT: 378 QTc: 462 Interpretive Statements SINUS RHYTHM Compared to ECG 09/18/2025 10:58:26 No significant changes Electronically Signed On 09-18-2025 18:39:46 CYBER SOFTWARE ENGINEER by MILI LOPEZ [id number]
--- NOTE | 2025-09-18 13:12 | PM.CONSULT ---
Providers/Reason For Consult Consulting Physician/Specialty*: Cardiology Reason for Consult*: Uncontrolled hypertension Chest pressure Attending Physician: Clifton Alvarado MD Primary Care Provider: Duke Alarcon History of Present Illness History of Present Illness Hunter San is a 34 year old male past medical history significant for continues tobacco abuse, end-stage renal disease, diabetes mellitus, drug abuse presented with shortness of breath chest pressure and uncontrolled hypertension despite of trying different medication in the ER his systolic blood pressure remains elevated more than 200 systolic. There was also concern about EKGs suggestive of sinus rhythm with peaked T waves concerning for hyperkalemia. Potassium is more than 6.7. Patient will be getting dialysis as nephrology on board. Denies chest pain PND orthopnea admits to shortness of breath. Admits to marijuana denies meth amphetamine Review of Systems Eyes: Denies: photophobia ENMT: Denies: enlarged tonsils Card: Reports: chest pain Musc: Denies: joint warmth All/Imm: Denies: acute wheezing Medications/Allergies Home Medications ?Medication ?Instructions ?Recorded ?Confirmed ?Last Taken ?Type Intraoperative Neuromonitoring #1 ea 08/22/22 09/18/25 Unknown Rx insulin syringe-needle U-100 1 mL #100 ea 06/27/23 09/18/25 Unknown Rx 31 gauge x 5/16 (BD Insulin Syringe Ultra-Fine) pen needle, diabetic 32 gauge x #100 ea 06/27/23 09/18/25 Unknown Rx 1/4 (BD Ultra-Fine Micro Pen Needle) blood sugar diagnostic (True #100 ea 10/04/23 09/18/25 Unknown Rx Metrix Glucose Test Strip) blood-glucose meter (True Metrix #1 ea 10/04/23 09/18/25 Unknown Rx Air Glucose Meter kit) lancets 31 gauge #100 ea 10/04/23 09/18/25 Unknown Rx blood-glucose sensor ([employer] G7 #1 ea 10/21/23 09/18/25 Unknown History Sensor device) bupropion HCl 150 mg 24 hr tablet, 150 mg PO DAILY 11/06/24 09/18/25 09/17/25 History extended release epinephrine 0.3 mg/0.3 mL See Rx Instructions .Route .COMPLEX 11/06/24 09/18/25 Unknown History injection, auto-injector aripiprazole 5 mg tablet 5 mg PO DAILY 04/12/25 09/18/25 09/17/25 History aspirin 81 mg tablet,delayed 81 mg PO DAILY 04/12/25 09/18/25 09/18/25 08:00 History release gabapentin 100 mg capsule 200 mg PO TID 04/12/25 09/18/25 09/17/25 History ondansetron 4 mg disintegrating 4 mg PO Q6H PRN nausea/emesis 04/12/25 09/18/25 Unknown History tablet bumetanide 1 mg tablet 1 mg PO DAILY #30 tabs 04/14/25 09/18/25 09/17/25 Rx insulin lispro 100 unit/mL See Rx Instructions .Route 04/14/25 09/18/25 09/17/25 Rx subcutaneous pen (Humalog KwikPen .COMPLEX #15 mL (U-100) Insulin) albuterol sulfate 90 mcg/actuation 2 puff inhalation Q6H PRN 06/15/25 09/18/25 09/17/25 History aerosol inhaler (Ventolin HFA) Shortness Of Breath insulin glargine 100 unit/mL (3 25 unit SUBCUT BID 06/15/25 09/18/25 06/15/25 History mL) subcutaneous pen (Lantus Solostar U-100 Insulin) isosorbide mononitrate 30 mg 30 mg PO DAILY 06/15/25 09/18/25 09/18/25 08:00 History tablet,extended release 24 hr naloxone 4 mg/actuation nasal spray See Rx Instructions .Route .COMPLEX 06/15/25 09/18/25 Unknown History sevelamer carbonate 800 mg tablet 1,600 mg PO TID 06/15/25 09/18/25 09/17/25 History ferrous gluconate 324 mg (37.5 mg 324 mg PO BID #60 tabs 06/18/25 09/18/25 Unknown Rx iron) tablet amlodipine 10 mg tablet 10 mg PO DAILY 09/18/25 09/18/25 09/18/25 08:00 History clonidine 0.2 mg/24 hr weekly 1 patch topical Q7D 09/18/25 09/18/25 Unknown History transdermal patch hydralazine 100 mg tablet 100 mg PO Q8H 09/18/25 09/18/25 09/17/25 History morphine 15 mg immediate release 15 mg PO Q8H PRN Pain 09/18/25 09/18/25 09/17/25 History tablet sodium zirconium cyclosilicate 5 5 g PO Q48H 09/18/25 09/18/25 09/14/25 History gram oral powder packet (Lokelma) Allergies Allergy/AdvReac Type Severity Reaction Status Date / Time bee venom protein (honey bee) Allergy Unknown Verified 08/17/25 07:40 lisinopril Allergy Unknown Verified 08/17/25 07:40 Current Medications Generic Name Dose Route Start Last Admin Trade Name Freq PRN Reason Stop Dose Admin Dextrose 250 mls @ 1,000 mls/hr 09/18/25 11:23 09/18/25 12:08 D10w IV Infused PRN PRN Infusion HYPOGLYCEMIA PFSH Acute PFSH: Medical History (Updated 09/18/25 @ 11:29 by Nedra Camacho MD) End stage renal disease on dialysis due to type 1 diabetes mellitus Chronic left-sided low back pain with left-sided sciatica Type 1 diabetes End stage renal disease on dialysis Opiate dependence Other stimulant abuse, uncomplicated Waking at night short of breath Snoring Hypersomnia Insomnia Noncompliance w/medication treatment due to intermit use of medication Schizophrenia Methamphetamine abuse Uncontrolled hypertension Family History Other CAD (coronary artery disease) Hypertension Stroke Social History Smoking and tobacco/nicotine status: current every day tobacco/nicotine user Alcohol intake: former Substance/Drug Use: former Date of last use: Amphetamines more than 62 days ago Caregiver/support person: Yes Lives independently: Yes Household members: other 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 Dietary Habits: Current diet type/program: regular Caffeine: Yes Caffeine intake frequency: coffee Exercise: Physical activity functional status: independent ambulation and normal ROM and activity Personal Safety: Do you feel safe at home: Yes Victim of physical abuse: No Victim of emotional abuse: No Victim of sexual abuse: No Would you like help information on resources?: No Vitals/I&O/Wt Last Vital Signs Temp 97.8 F 09/18/25 10:18 Pulse 85 09/18/25 11:30 Resp 19 H 09/18/25 10:40 BP 187/105 09/18/25 11:30 Pulse Ox 99 12/06/25 11:30 O2 Del Method Room Air 09/18/25 11:30 09/17/25 09/18/25 09/18/25 22:59 06:59 14:59 Intake Total 250 / 250 Balance 250 / 250 Weight last 48 hrs Weight 220 lb Physical Exam Const: OTHER: GENERAL: Patient is alert, awake and oriented x3. HEART: Regular S1 and S2. No murmur, rub or gallop. LUNGS: Clear to auscultate bilaterally. CENTRAL NERVOUS SYSTEM: Grossly nonfocal. EXTREMITIES: Lower extremities with out edema bilaterally. Data 09/18/25 10:28 09/18/25 10:28 A&P Assessment and plan 1. Hypertensive urgency: 2. Elevated troponin: 3. Hyperkalemia: 4. ESRD on hemodialysis: 5. Chronic pericardial effusion: PDMP PDMP Reviewed: Not Reviewed Consult Attestations Medical Necessity Statement: Patient takes amlodipine clonidine patch q. 7 days hydralazine p.o. isosorbide mononitrate at home. Despite of given labetalol blood pressure remains elevated above 200. Recommend changing patch of clonidine as it is his last day and could be rebound hypertension due to low clonidine level or withdrawal For now start patient on IV nitro drip titrate to keep systolic blood pressure less than 160-150 Resume home meds including amlodipine Patient will be scheduled for dialysis today Postdialysis we will rearrange medication which will be optimize Troponin leak could be demand ischemia and not acute coronary syndrome patient denies any chest pain there is no significant EKG changes Echocardiogram to assess and review the chronic pleural effusion or any wall motion abnormality in the face of abnormal cardiac markers. Further plan will be devised as per progress of the patient. Discussed in detail patient's care with our hospitalist colleagues Coding Level of Care Code Acute Code for Chg Fwd Diagnoses Hypertensive urgency I16.0 Elevated troponin R79.89 Hyperkalemia E87.5 ESRD on hemodialysis N18.6; Z99.2 Chronic pericardial effusion I31.39
[2025-09-18] MEDS: nitroglycerin drip 50 MG/250 ML PREMIX IV (13:52)
--- OUTSIDE RECORDS SUMMARY | 2025-09-18 14:50 | XMS_ITS | Encounter Summary ---
Author Organization [facility] Address [address] [place] [address] Care Team Providers Care Street Light Cleaner Name Role Phone Karlo Banks MD Primary Care Provider [phone] Encounter Details Date Type Department Care Team (Latest Contact Info) Description 02/24/2004 Outpatient Historical [facility] [address] [place] [phone] Holland Bell MD [address] [place] [phone] CONJUNCTIVITIS NOS (Primary Dx) Social History Tobacco Use Types Packs/Day Years Used Date Smoking Tobacco: Never Assessed Sex and Gender Information Value Date Recorded Sex Assigned at Not on file 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
--- OUTSIDE RECORDS SUMMARY | 2025-09-18 14:50 | XMS_ITS | Encounter Summary ---
Author Organization [facility] Address [address] [place] [address] Care Team Providers Care Supervisor Carbon Paper Coating Name Role Phone Duke Alarcon MD Primary Care Provider [phone] Encounter Details Date Type Department Care Team [...] worry about transportation for future doctor visits, hop picker medication, etc.? 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 Gender Identity Not on file Sexual Orientation Not on file documented as of this encounter Plan of Treatment Upcoming Encounters Date Type Department Care Team (Late st Contact Info) Description 09/27/2025 9:30 AM FARM OPERATOR Office Visit [facility] Licensed Plumber Optometry [facility] [address] [place] [address] Constantin Bales, OD [address] [place] [address] 10/20/2025 3:20 PM FARM OPERATOR Office Visit [facility] Family Medicine [place] [address] [address] Duke Alarcon MD [address] [address] documented as of this encounter Goals Goal Patient Goal Type Associated Problems Recent Progress Patient-Stated? Author Heart Failure Goal Care Plan Heart Failure Problem No Faye Denny documented as of this encounter Visit Diagnoses Not on filedocumented in this encounter Additional Health Concerns Active Problems Noted Date Diagnosed Date Heart Failure Problem 08/18/2025 documented as of this encounter Care Teams Supervisor Carbon Paper Coating Relationship Specialty Start Date End Date Duke Alarcon MD [address] [address] PCP - General Family Practice 08/10/24 documented as of this encounter
--- OUTSIDE RECORDS SUMMARY | 2025-09-18 14:50 | XMS_ITS | Encounter Summary ---
Author Organization [facility] Address [address] [place] [address] Care Team Providers Care Technical Service Engineer Name Role Phone Karlo Banks MD Primary Care Provider [phone] [phone] Encounter Details Date Type Department Care Team (Latest Contact Info) Description 02/07/2004 Outpatient Historical [facility] [address] [place] [phone] Holland Bell MD [address] [place] [address] ASTHMA UNSPECIFIED (Primary Dx) Social History Tobacco Use Types Packs/Day Years Used Date Smoking Tobacco: Never Assessed Sex and Gender Information Value Date Recorded Sex Assigned at Not on file Legal Sex Male 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
--- OUTSIDE RECORDS SUMMARY | 2025-09-18 14:50 | XMS_ITS | Encounter Summary ---
Author Organization [facility] Address [address] [place] [address] Care Team Providers Care Treasury Agent Name Role Phone Karlo Banks MD Primary Care Provider [phone] Encounter Details Date Type Department Care Team (Latest Contact Info) Description 11/01/2003 Outpatient Historical [facility] [address] [place] [phone] Holland Bell MD [address] [place] [address] ASTHMA UNSPECIFIED (Primary Dx) Social History Tobacco Use Types Packs/Day Years Used Date Smoking Tobacco: Never Assessed Sex and Gender Information Value Date Recorded Sex Assigned at Not on file Legal Sex Male 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
--- OUTSIDE RECORDS SUMMARY | 2025-09-18 14:50 | XMS_ITS | Encounter Summary ---
Author Organization [facility] Address [address] [place] [address] Care Team Providers Care Warehouse Driver Name Role Phone Karlo Banks MD Primary Care Provider [phone] [phone] Encounter Details Date Type Department Care Team (Latest Contact Info) Description 06/04/2005 Outpatient Historical [facility] [address] [place] [address] Holland Bell MD [address] [place] [address] MED EXAM NEC-ADMIN PURP (Primary Dx) Social History Tobacco Use Types Packs/Day Years Used Date Smoking Tobacco: Never Assessed Sex and Gender Information Value Date Recorded Sex Assigned at Not on file 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
--- OUTSIDE RECORDS SUMMARY | 2025-09-18 14:50 | XMS_ITS | Encounter Summary ---
Author Organization [facility] Address [address] [place] [address] Care Team Providers Care Drama Professor Name Role Phone Karlo Banks MD Primary Care Provider [phone] [phone] Encounter Details Date Type Department Care Team (Late st Contact Info) Description 07/11/2015 Lab Requisition [facility] [place] [address] [place] [phone] Jyoti Shirley, COMMUTATOR TESTER [address] [place] [phone] Social History Tobacco Use Types Packs/Day Years Used Date Smoking Tobacco: Former Cigarettes Alcohol Use Standard Drinks/Week Comments No 0 (1 standard drink = 0.6 oz pur e alcohol) Sex and Gender Information Value Date Recorded Sex Assigned at Not on file 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 MICROALBUMIN/CR EAT RATIO, UR 413.9 mg/g Creatinine 07/11/2015 11:45 PM CDT [facility] Comment: Condition mg/g Creatinine Normal Males <17 Normal Females <25 Microalbuminuria Males 17-299 Microalbuminuria Females 25-299 Overt proteinuria >=300 Urine 07/11/2015 10:5 3 PM CDT 07/11/2015 10:53 PM CDT Jyoti Shirley COMMUTATOR TESTER URINE ORDERABLES Final Result [facility] CLIA # [id number] [address] [place] [address] * (ABNORMAL) LIPID PANEL (07/11/2015 10:53 PM CDT) CHOLESTEROL 204(H) <200 mg/dL 07/11/2015 11:21 PM CDT [facility] TRIGLYCERIDE 276(H) <150 mg/dL 07/11/2015 11:21 PM CDT [facility] HDL 25(L) 40 - 59 mg/dL 07/11/2015 11:21 PM CDT [facility] LDL CALCULATED 124(H) <100 mg/dL 07/11/2015 11:21 PM CDT [facility] NON-HDL CHOLESTEROL 179(H) <130 mg/dL 07/11/2015 11:21 PM CDT [facility] Blood 07/11/2015 10:5 3 PM CDT 07/11/2015 10:53 PM CDT Narrative [facility] - 07/11/2015 11:21 PM CDT TOTAL [...] >=220 Based on AHA/NCEP Guidelines Jyoti Shirley [facility] CHEMISTRY ORDERABLES Final Resu lt Performing Organization Address [facility] de Phone Number [facility] CLIA # [id number] [address] [place] [phone] * (ABNORMAL) HEMOGLOBIN A1C (07/11/2015 10:53 PM CDT) HEMOGLOBIN A1C 10.6(H) 4.8 - 5.9 % 07/11/2015 11:16 PM CDT [facility] EST. AVG GLUCOSE, A1C 258 mg/dL 07/11/2015 11:16 PM CDT [facility] Blood 07/11/2015 10:5 3 PM CDT 07/11/2015 10:53 PM CDT Jyotivadim Shirley [facility] CHEMISTRY ORDERABLES Final Resu lt Performing Organization Address [facility]/ZIP Co de Phone Number [facility] CLIA # [id number] [address] [place] [phone] * (ABNORMAL) COMPREHENSIVE METABOLIC PANEL (07/11/2015 10:53 PM CDT) SODIUM 129(L) 136 - 145 mmol/L 07/11/2015 11:[address] [facility] POTASSIUM 3.6 3.5 - 5.1 mmol/L 07/11/2015 11:[address] [facility] CHLORIDE 87(L) 98 - 107 mmol/L 07/11/2015 11:[address] [facility] CO2 25 22 - 29 mmol/L 07/11/2015 11:21 PM [facility] CALCIUM 9.3 8.6 - 10.0 mg/dL 07/11/2015 11:21 PM [facility] BUN 12 6 - 20 mg/dL 07/11/2015 11:21 PM [facility] CREATININE 0.61(L) 0.67 - 1.17 mg/dL 07/11/2015 11:21 PM [facility] GLUCOSE 287(H) 74 - 106 mg/dL 07/11/2015 11:21 PM [facility] TOTAL PROTEIN 8.1 6.6 - 8.7 g/dL 07/11/2015 11:21 PM [facility] ALBUMIN 4.5 3.5 - 5.2 g/dL 07/11/2015 11:[address] [facility] BILIRUBIN TOTAL 2.7(H) 0.0 - 1.2 mg/dL 07/11/2015 11:21 PM [facility] ALKALINE PHOSPHATASE 93 40 - 129 U/L 07/11/2015 11:21 PM [facility] AST 19 10 - 50 U/L 07/11/2015 11:21 PM [facility] [employer] [facility] ALT 15 10 - 50 U/L 07/11/2015 11:21 PM [facility] [employer] [facility] GFR >60 >=60 mL/min/1.7 3 sq meter 07/11/2015 11:21 PM [facility] [employer] [facility] Comment: eGFR has not been validated for [...] 3 sq meter 07/11/2015 11:21 PM CDT [facility] ANION GAP 17 12 - 20 mmol/L 07/11/2015 11:21 PM CDT [facility] Blood 07/11/2015 10:5 3 PM CDT 07/11/2015 10:53 PM CDT Jyoti Shirley COMMUTATOR TESTER CHEMISTRY ORDERABLES Final Resu lt [facility] CLIA # [id number] [address] [place] [phone] documented in this encounter Visit Diagnoses Not on filedocumented in this encounter Care Teams Drama Professor Relationship Specialty Start Date End Date Karlo Banks MD PCP - General Internal Medicine 10/14/14 01/11/21 documented as of this encounter
--- OUTSIDE RECORDS SUMMARY | 2025-09-18 14:50 | XMS_ITS | Clinical Summary ---
Author Organization [facility] Address [address] [facility] [address] [place] [address] Phone Care Team Providers Care Second Crusher Name Role Phone Duke Alarcon MD Primary Care Provider [phone] Allergies Active Allergy Reactions Criticality Noted Date [...] SALIVA 025 Active naloxone (NARCAN) 4 mg/spray [place], Non-Aerosol EMERGENCY USE ONLY: Administer 1 spray [...] chronic kidney disease on chronic dialysis ([facility]) Inject 25 Units by subcutaneous injection [...] chronic kidney disease on chronic dialysis ([facility]) Take 1 Tablet (80 mg) by mouth daily. 30 Tablet 025 Active amLODIPine (NORVASC) 10 mg tabletIndication s:Malignant hypertension Take 1 Tablet (10 mg) by mouth daily. 30 Tablet 5 025 Active amitriptyline (ELAVIL) 50 mg tabletIndication s:Paranoid schizophrenia ([facility]) Take 1 Tablet (50 mg) by mouth daily at bedtime. 30 Tablet 5 025 Active Blood Pressure Monitor KitIndications:U ncontrolled hypertension To monitor blood pressure daily [facility] [employer] 1 Each 025 Active Blood-Glucose Sensor (Dexcom G7 Sensor) DeviceIndication s:Type 1 diabetes mellitus with other kidney complication ([facility]) To continuously monitor blood sugar. Change sensor every 10 days. 3 Each 8 Active blood sugar diagnostic Strip Needs 120 strips for 4 times per day 100 Strip 1 Active doxazosin (CARDURA) 4 mg tablet Take 4 mg by mouth daily at bedtime. Active methoxy peg-epoetin beta (MIRCERA INJECTION) 75 mcg. 025 2025 Active Insulin [place], Disposable, (Ultra-Thin II Ins Pen [place]) 29 gauge x 1/2 NeedleIndication s:Type 1 diabetes mellitus with chronic kidney disease on chronic dialysis ([facility]) Use to inject insulin 4 times daily 100 Each 11 Active ARIPiprazole (ABILIFY) 5 mg tabletIndication s:Paranoid schizophrenia ([facility]) Take 1 tablet by mouth once daily 30 Tablet 5 Active cpap auditor medical claims CPAP auto-titrate 5-10 cwp with heated humidifier. [...] 8 hours. 300 Tablet 3 Active cloNIDine ([id number]-6 ) 0.2 mg/24 hr patchIndications :Malignant hypertension Apply 1 Patch to skin as directed every 7 days. 4 Patch 5 025 Active isosorbide mononitrate (IMDUR) 30 mg Extended Release 24 hour tabletIndication s:Malignant hypertension Take 1 Tablet (30 mg) by mouth daily. 30 Tablet 5 Active bumetanide (BUMEX) 1 mg tabletIndication s:Malignant hypertension,ESR D (end stage renal disease) ([facility]),Chroni c combined systolic (congestive) and diastolic (congestive) heart failure ([facility]) Take 1 Tablet (1 mg) by mouth 2 times daily. 60 Tablet 5 Active morphine (MS IR) 15 mg tablet Take 15 mg by mouth every 8 hours as needed for Pain, Break-Through. Active albuterol sulfate 90 mcg/Actuation inhalerIndicatio ns:Shortness of breath Take 2 Puffs by inhalation every 6 hours as needed for Shortness of Breath. 8.5 Gram 2 Active Blood-Glucose Meter,Continuous (HighGround G7 Inter Com Installer)Indicat ions:Type 1 diabetes mellitus with other kidney complication ([facility]) Use with sensor to monitor glucose continuously. [...] chronic kidney disease on chronic dialysis ([facility]) INJECT 6 UNITS SUBCUTANEOUSLY 3 TIMES DAILY BEFORE MEALS PLUS A MEDIUM DOSE SLIDING SCALE. MAX UNITS PER DAY 60 UNITS 15 mL 2 Active albuterol sulfate HFA 90 mcg/actuation aerosol inhalerIndicatio ns:Shortness of breath Take 2 Puffs by inhalation every 6 hours as needed for Shortness of Breath. 8.5 Gram 1 025 2024 Discontinued(R eorder) Blood-Glucose Meter,Continuous (Dexcom G7 Inter Com Installer)Indicat ions:Type 1 diabetes mellitus with other kidney complication ([facility]) Use with sensor to monitor glucose continuously. 1 Each 025 2024 Discontinued(R eorder) insulin lispro (HumaLOG,ADMELOG ) 100 unit/mL pen syringeIndicatio ns:Type 1 diabetes mellitus with chronic kidney disease on chronic dialysis ([facility]) INJECT 6 UNITS SUBCUTANEOUSLY 3 TIMES DAILY [...] chronic kidney disease on chronic dialysis ([facility]) INJECT 6 UNITS SUBCUTANEOUSLY 3 TIMES DAILY [...] Date Type Department Care Team Description 09/16/[address] [phone] Duke Alarcon MD Type 1 diabetes mellitus with chronic kidney disease on chronic dialysis ([facility]) 09/14/2025 External Device Data STL ABSTRACTION Provider, Abstract 09/06/2025 Results Follow-Up [address] [phone] Duke Alarcon MD MRI ANKLE WO CONTRAST LEFT 08/26/[address] [phone] Duke Alarcon MD Type 1 diabetes mellitus with other kidney complication ([facility]) 08/26/[address] [phone] Roberta Kennedy NP Shortness of breath 08/26/[address] [phone] Duke Alarcon MD Type 1 diabetes mellitus with chronic kidney disease on chronic dialysis ([facility]) 08/25/2025 5:43 PM BAG MAKING MACHINE TENDER - 08/25/2025 6:55 PM BAG MAKING MACHINE TENDER Emergency [facility] Emergency Medicine [address] [phone] Kelsea Dailey MD Spasm of thoracic back muscle (Primary Dx); History of lumbar spinal fusion Discharge Disposition: Home or Self Care 08/24/[address] [phone] Duke Alarcon MD Provider Call 08/20/2025 9:10 AM BAG MAKING MACHINE TENDER - 08/20/2025 10:25 AM BAG MAKING MACHINE TENDER Emergency [facility] Emergency Medicine [address] [phone] Scott Holguin MD Anemia in ESRD (end-stage renal disease) ([facility]) (Primary Dx) Discharge Disposition: Home or Self Care 08/18/[address] [phone] Duke Alarcon MD Needs Appointment 08/17/2025 External Device Data STL ABSTRACTION Provider, Abstract 08/17/[address] [phone] Duke Alarcon MD Patient Communication (/) 08/17/2025 Orders Only [facility] II [address] [place] [address] Duke Alarcon MD Hospital discharge follow-up (Primary Dx) 08/16/2025 10:37 AM BAG MAKING MACHINE TENDER - 08/16/2025 11:31 AM BAG MAKING MACHINE TENDER Surgery [facility] Cardiac [employer] In[employer] [address] [place] [phone] Shimon Patino MD Left heart cath 08/15/2025 Orders Only [facility] General Laboratory Services [facility] [address] [place] [phone] Indu Robin Encounter for preadmission testing 08/13/2025 4:55 PM CDT - 08/16/2025 7:23 PM BAG MAKING MACHINE TENDER Hospital Encounter [facility] 4A Cardiac [address] [place] [address] Iraida Roberto MD Sundaram, Vignesh, MD Suthar, Diaz Powers MD Atypical chest pain Discharge Disposition: Home or Self Care 08/13/2025 12:06 PM CDT - 08/13/2025 2:52 PM CDT Emergency [facility] Emergency Medicine [address] [place] [phone] Scott Holguin MD NSTEMI (non-ST elevated myocardial infarction) ([facility]) (Primary Dx); Hyperkalemia; Type 1 diabetes mellitus with hyperglycemia ([facility]) Discharge Disposition: [facility] 08/13/2025 6:15 AM CDT - 08/13/2025 11:59 PM CDT Hospital Encounter [facility] Emergency Medical Services [place] [address] [phone] Ambulance, [facility] Discharge Disposition: [facility] 08/13/2025 Travel 08/11/2025 1:16 PM CDT - 08/11/2025 11:59 PM CDT Hospital Encounter [facility] [address] [phone] Duke Alarcon MD Discharge Disposition: Home or Self Care 08/03/2025 Refill [facility] [address] [phone] Duke Alarcon MD Type 1 diabetes mellitus with chronic kidney disease on chronic dialysis ([facility]) 07/22/2025 Refill [facility] [address] [phone] Duke Alarcon MD Osteoarthritis of spine with radiculopathy, lumbar region 07/20/2025 External Device Data STL ABSTRACTION Provider, Abstract 07/20/2025 External Device Data STL ABSTRACTION Provider, Abstract 07/19/2025 Orders Only [facility] [address] [phone] Duke Alarcon MD Acute left ankle pain (Primary Dx) 07/16/[address] [phone] Duke Alarcon MD Osteoarthritis of spine with radiculopathy, lumbar region 07/14/2025 7:40 AM CDT Procedure visit [facility] [place] [address] [phone] Pavel Arreguin MD Sarwar, Salman, MD 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 (CMS/HCC) (Primary Dx) 07/13/[address] [phone] Duke Alarcon MD Osteoarthritis of spine with radiculopathy, lumbar region 07/12/[address] [phone] Duke Alarcon MD Osteoarthritis of spine with radiculopathy, lumbar region 07/07/2025 11:10 AM CDT Office Visit [facility] [place] [address] [phone] Kim Servin MD 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 (CMS/HCC) (Primary Dx); Combined forms of age-related cataract of both eyes 07/05/2025 2:20 PM CDT Office Visit [address] [phone] Duke Alarcon MD Type 1 diabetes mellitus with chronic kidney disease on chronic dialysis (CMS/HCC) (Primary Dx); Malignant hypertension; ESRD (end stage renal disease) (CMS/HCC); Chronic combined systolic (congestive) and diastolic (congestive) heart failure (CMS/HCC); Osteoarthritis of spine with radiculopathy, lumbar region 07/05/[address] [phone] Provider, Abstract 07/03/2025 Patient Self-Triage [facility] [address] [place] [address] 07/01/2025 Telephone [facility] [place] [address] [phone] Kim Servin MD Information 06/30/2025 Orders Only [address] [phone] Duke Alarcon MD 06/29/[address] [phone] Duke Alarcon MD Osteoarthritis of spine with radiculopathy, lumbar region 06/29/[address] [phone] Duke Alarcon MD Information; Patient Communication 06/28/2025 Orders Only [facility] HIM [address] [place] [address] Provider, Abstract 06/28/2025 Results Follow-Up [address] [phone] Duke Alarcon MD XR ANKLE 3+ VW LEFT, HOLTER MONITOR 06/24/2025 Orders Only [address] [phone] Olamide Mcclelland RN Malignant hypertension 06/23/[address] [phone] Duke Alarcon MD Malignant hypertension 06/22/2025 External Device Data STL ABSTRACTION Provider, Abstract 06/22/2025 External Device Data STL ABSTRACTION Provider, Abstract 06/22/[address] [phone] Duke Alarcon MD Osteoarthritis of spine with radiculopathy, lumbar region from Last 3 Months Immunizations Immunization Administration Dates Next Due (PREVNAR 20)(6 WKS UP) PNEUM OCOCCAL CONJUGATE VACCINE 20-VALENT (PCV20), POLYSACCHARIDE [id number] CONJUGATE, ADJUVANT 0.5 ML (PF) IM 06/30/2025 [...] worry about transportation for future doctor visits, warp picker medication, etc.? No 2024 Housing Stability [...] on file Legal Sex Male 3:23 AM BAG MAKING MACHINE TENDER Gender Identity Not on file Sexual Orientation Not on file Last Filed Vital Signs Vital Sign Reading Time Taken Comments Blood Pressure 172/90 08/25/2025 6:45 PM BAG MAKING MACHINE TENDER Pulse 96 08/25/2025 6:45 PM BAG MAKING MACHINE TENDER Temperature 37.6 C (99.7 F) 08/25/2025 4:28 PM BAG MAKING MACHINE TENDER Respiratory Rate 16 08/25/2025 6:45 PM BAG MAKING MACHINE TENDER Oxygen Saturation 99% 08/25/2025 6:45 PM BAG MAKING MACHINE TENDER Inhaled Oxygen Concentration - - Weight 96 kg (211 lb 9.6 oz) 08/25/2025 4:28 PM BAG MAKING MACHINE TENDER Height 182.9 cm (6') 08/25/2025 4:28 PM BAG MAKING MACHINE TENDER Body Mass Index 28.7 08/25/2025 4:28 PM BAG MAKING MACHINE TENDER Plan of Treatment Upcoming Encounters Date Type Department Care Team (Late st Contact Info) Description 09/27/2025 9:30 AM BAG MAKING MACHINE TENDER Office Visit [facility] Associate Sales Optometry [facility] [address] [place] [address] Constantin Bales, OD [address] [place] [address] 10/20/2025 3:20 PM BAG MAKING MACHINE TENDER Office Visit [facility] [place] [address] [phone] Duke Alarcon MD [address] [phone] Health Maintenance Due Date Last Done Comments DTAP/TDAP/TD VACCINES (1 - Tdap) 2009 HEPATITIS B VACCINES (1 of 3 - Risk Dialysis 4-dose series) 2010 DIABETES MICROALBUMIN ANNUAL SCREEN 07/11/2016 07/11/2015 Medicare Advantage (DC) Preventative Visit/Annual Wellness Visit 10/14/2024 DIABETES HBA1C [...] [employer] Implanted Type Area Informatics Developer Device Identifier Shelf Expiration Date Model / Serial / Lot Closure Perclose Prostyle Sut Mediate 21549-25 - [id number] Implanted:Qty: 1 on 08/16/2025 by Shimon Patino MD at [facility] Closure Device Right: Groin KENNEDY- VASC DEVICE [id number] 06/13/2027 [id number] / / [id number] Explanted Type Area Informatics Developer Device Identifier Shelf Expiration Date Model / Serial / Lot Cath Dialysis Glidepath 14.5fr 23cm [facility] [id number] - [id number] Implanted:Qty: 1 on 12/04/2024 by Constantin Crum MD at [facility] Explanted:Qty: 1 on 04/23/2025 by Reji Sethi Catheter Right: Chest BARD TRICE VASC [id number] 03/13/2026 [id number] / / [id number] Procedures Procedure Name Priority Date/Time Associated Diagnosis Comments TYPE AND SCREEN Stat 08/20/2025 9:27 AM BAG MAKING MACHINE TENDER PROTIME-INR Stat 08/20/2025 9:27 AM BAG MAKING MACHINE TENDER CBC WITH DIFFERENTIAL Stat 08/20/2025 9:27 AM BAG MAKING MACHINE TENDER TELEMETRY REPORT 08/17/2025 2:16 AM BAG MAKING MACHINE TENDER POC GLUCOSE Routine 08/16/2025 4:16 PM BAG MAKING MACHINE TENDER ECHO COMPLETE Routine 08/16/2025 2:30 PM BAG MAKING MACHINE TENDER POC GLUCOSE Routine 08/16/2025 11:10 AM BAG MAKING MACHINE TENDER LEFT HEART CATH Routine 08/16/2025 10:43 AM BAG MAKING MACHINE TENDER NSTEMI (non-ST elevated myocardial infarction) (CMS/HCC) POC GLUCOSE Routine 08/16/2025 9:53 AM BAG MAKING MACHINE TENDER POC GLUCOSE Routine 08/16/2025 9:06 AM BAG MAKING MACHINE TENDER UNFRACTIONATED HEPARIN ACTIVITY Timed Study 08/16/2025 8:36 AM BAG MAKING MACHINE TENDER UNFRACTIONATED HEPARIN ACTIVITY Timed Study 08/16/2025 12:54 AM BAG MAKING MACHINE TENDER POC GLUCOSE Routine 08/15/2025 8:23 PM BAG MAKING MACHINE TENDER UNFRACTIONATED HEPARIN ACTIVITY Timed Study 08/15/2025 4:34 PM BAG MAKING MACHINE TENDER POC GLUCOSE Routine 08/15/2025 4:33 PM BAG MAKING MACHINE TENDER POC GLUCOSE Routine 08/15/2025 11:25 AM BAG MAKING MACHINE TENDER UNFRACTIONATED HEPARIN ACTIVITY Timed Study 08/15/2025 10:04 AM BAG MAKING MACHINE TENDER POC GLUCOSE Routine 08/15/2025 7:03 AM BAG MAKING MACHINE TENDER TYPE AND SCREEN Routine 08/15/2025 1:11 AM [...] (ABNORMAL) CBC WITH DIFFERENTIAL (08/20/2025 9:27 AM [facility]) Only the most recent of4 resultswithin the time period is included. WBC 9.6(H) 4.2 - 9.1 K/uL 08/20/2025 9:41 AM [facility] RBC 2.78(L) 4.63 - 6.08 M/uL 08/20/2025 9:41 AM [facility] HEMOGLOBIN 8.6(L) 13.7 - 17.5 g/dL 08/20/2025 9:41 AM [facility] HEMATOCRIT 25.8(L) 40.1 - 51.0 % 08/20/2025 9:41 AM [facility] MCV 92.8(H) 79.0 - 92.2 fL 08/20/2025 9:41 AM [facility] MCH 30.9 25.7 - 32.2 pg 08/20/2025 9:41 AM [facility] MCHC 33.3 32.3 - 36.5 g/dL 08/20/2025 9:41 AM [facility] RDW 15.5(H) 11.0 - 14.5 % 08/20/2025 9:41 AM [facility] RDW-STDEV 51.8 36.9 - 56.9 fL 08/20/2025 9:41 AM [facility] PLATELETS 295 130 - 400 K/uL 08/20/2025 9:41 AM [facility] MPV 10.2 10.0 - 14.8 fL 08/20/2025 9:41 AM [facility] NEUTROPHILS 76(H) 34 - 68 % 08/20/2025 9:41 AM [facility] LYMPHOCYTES 13(L) 22 - 53 % 08/20/2025 9:41 AM [facility] MONOCYTES 7 5 - 12 % 08/20/2025 9:41 AM [facility] EOSINOPHILS 2 1 - 7 % 08/20/2025 9:41 AM [facility] BASOPHILS 1 0 - 1 % 08/20/2025 9:41 AM [facility] IMMATURE GRANULOCYTES 1 % 08/20/2025 9:41 AM [facility] NEUTROPHIL ABSOLUTE 7.24(H) 1.78 - 5.38 K/uL 08/20/2025 9:41 AM [facility] LYMPHOCYTE ABSOLUTE 1.27 1.20 - 3.40 K/uL 08/20/2025 9:41 AM [facility] MONOCYTE ABSOLUTE 0.70 0.30 - 0.82 K/uL 08/20/2025 9:41 AM [facility] EOSINOPHIL ABSOLUTE 0.18 0.04 - 0.54 K/uL 08/20/2025 9:41 AM [facility] BASOPHILS ABSOLUTE 0.10(H) 0.01 - 0.08 K/uL 08/20/2025 9:41 AM [facility] IMMATURE GRANULOCYTES ABSOLUTE 0.07 K/uL 08/20/2025 9:41 AM [facility] Blood Venipuncture / Unknown 08/20/2025 9:27 AM BAG MAKING MACHINE TENDER 08/20/2025 9:35 AM BAG MAKING MACHINE TENDER us Scott Holguin MD HEMATOLOGY ORDERABLES Final Result [facility] CLIA # [id number] [address] [place] [address] * PROTIME-INR (08/20/2025 9:27 AM BAG MAKING MACHINE TENDER) PROTIME 13.6 12.1 - 14.3 Seconds 08/20/2025 9:49 AM [facility] INR 1.0 0.9 - 1.1 08/20/2025 9:49 AM [facility] Blood Venipuncture / Unknown 08/20/2025 9:27 AM BAG MAKING MACHINE TENDER 08/20/2025 9:35 AM BAG MAKING MACHINE TENDER us Scott Holguin MD HEMATOLOGY ORDERABLES Final Result [facility] CLIA # [id number] [address] [place] [address] * TYPE AND SCREEN (08/20/2025 9:27 AM BAG MAKING MACHINE TENDER) Only the most recent of2 resultswithin the time period is included. Pathologist [facility] ABO/RH TYPE O POS 08/20/2025 10:13 AM BAG MAKING MACHINE TENDER [facility] ANTIBODY SCREEN Negative 08/20/2025 10:13 AM BAG MAKING MACHINE TENDER [facility] Blood Venipuncture / Unknown 08/20/2025 9:27 AM BAG MAKING MACHINE TENDER 08/20/2025 9:35 AM BAG MAKING MACHINE TENDER us Scott Holguin MD BLOOD BANK ORDERABLES Final Result Performing Organization Address [facility] de Phone Number [facility] CLIA # [id number] [address] [place] [address] * TELEMETRY REPORT (08/17/2025 2:16 AM BAG MAKING MACHINE TENDER) us Provider Scanning ECG ORDERABLES Final Result * (ABNORMAL) POC GLUCOSE (08/16/2025 4:16 PM BAG MAKING MACHINE TENDER) Only the most recent of15 resultswithin the time period is included. GLUCOSE POC 212(H) 74 - 99 mg/dL 08/16/2025 4:16 PM BAG MAKING MACHINE TENDER [facility] SPECIMEN SOURCE, GLUCOSE POC Capillary 08/16/2025 4:16 PM BAG MAKING MACHINE TENDER [facility] Blood, whole 08/16/2025 4:16 PM BAG MAKING MACHINE TENDER 08/16/2025 5:05 PM BAG MAKING MACHINE TENDER us Diaz Scott MD POINT OF CARE TESTING Oliva l Result Performing Organization Address [facility] Co de Phone Number [facility] CLIA # [id number] [address] [facility] [place] [address] * ECHO COMPLETE - CONTRAST AND STRAIN IF INDICATED (08/16/2025 2:30 PM BAG MAKING MACHINE TENDER) EJECTION FRACTION 49 INTERFACE SYSTEM 08/16/2025 2:13 PM BAG MAKING MACHINE TENDER Narrative INTERFACE SYSTEM - 08/16/2025 4:08 PM BAG MAKING MACHINE TENDER [facility] Cardiovascular Services Echocardiography Laboratory [address] [place] [address] Transthoracic Echocardiography Patient: Vida San Study ID: ECHO URI Lino Gender: M : 1990 Age: 34 Room: [facility] Study 08/16/2025 Pt Inpatient Date: Status: Study 02:13:49 PM CSN #: [id number] Time: Ordering:Shimon Patino Retail Supervisor: Zak Asif Indications and History: Post DC. Risk factors: Hypertension. Diabetes mellitus. Dyslipidemia. Summary [...] (H) ronny values outside specified reference range. [facility] Echo Labs are accredited with the Inters[facility]. [facility] Accreditation Commission - Echocardiography. Prepared and Electronically Authenticated Matt Hinojosa Confirmed 08/16/2025 16:08 Procedure Note Matt Hinojosa MD - 08/16/2025 [facility] Cardiovascular Services Echocardiography Laboratory [address] [place] [address] Transthoracic Echocardiography Patient: Vida San Study ID: ECHO URIColleen Holland Gender: M : 1990 Age: 34 Room: [facility] Study 08/16/2025 Pt Inpatient Date: Status: Study 02:13:49 PM CSN #: [id number] Time: Ordering:Shimon Patino Retail Supervisor: Zak Asif Indications and History: Post DC. Risk factors: Hypertension.Diabetes mellitus. Dyslipidemia. Summary and [...] (H) ronny values outside specified reference range. [facility] Echo Labs are accredited with theB[facility] Cancer Centersocietal Accreditation Commission - Echocardiography. Prepared and Electronically Authenticated Matt Hinojosa Confirmed 08/16/2025 16:08 us Shimon Patino MD US ORDERABLES Final Result Performing Organization Address City/State/[facility] Co de Phone Number INTERFACE SYSTEM Refer to clinic/hospital department * LEFT HEART CATH (08/16/2025 10:43 AM BAG MAKING MACHINE TENDER) 08/16/2025 10:3 0 AM BAG MAKING MACHINE TENDER Addenda Addendum by Shimon Patino MD on 08/17/2025 12:12 PM BAG MAKING MACHINE TENDER Prox LAD lesion is 15% stenosed. LPDA lesion is 25% stenosed. 1. Mild nonobstructive coronary artery disease described above. Nonischemic cardiomyopathy. Left dominant circulation. 2. Aggressive risk factor modification and lifestyle changes. 3. Recommend maximally tolerated guideline directed medical therapy. 4. Access site care per protocol. 5. Cardiac rehab per the referring provider. Portions of this document were created through the use of Netheosprobation agent software. Effort has been made to ensure accuracy of the r developer. Any obvious errors or omissions should be [...] was used for local anesthesia. A 6 Citizen Of [place] sheath was placed in the access site [...] CATH ORDERABLES Edited Res ult - Final [id number] [facility] [address] [place] [address], [place] [phone] * UNFRACTIONATED HEPARIN MONITORING (08/16/2025 8:36 AM BAG MAKING MACHINE TENDER) Only the most recent of6 resultswithin the time period is included. [facility] ANTI-XA UNFRAC HEP 0.22 See Interpretation IU/mL 08/16/2025 9:[address] [facility] Blood Venipuncture / Unknown 08/16/2025 8:36 AM BAG MAKING MACHINE TENDER 08/16/2025 8:39 AM BAG MAKING MACHINE TENDER Narrative [facility] - 08/16/2025 9:03 AM BAG MAKING MACHINE TENDER Therapeutic Range: PT/DVT Heparin Protocol 0.3 - 0.7 IU/ml Cardiac Heparin Protocol 0.3 - 0.6 IU/ml The reference range for this test is specific to the anticoagulant and is not appropriate for monitoring patients on a DOAC protocol. Diaz Scott MD HEMATOLOGY ORDERABLES Oliva l Result Performing Organization Address [facility] Co de Phone Number [facility] CLIA # [id number] [address] [address] * PHOSPHORUS (08/15/2025 1:11 AM CDT) Only the most recent of2 resultswithin the time period is included. [facility] PHOSPHORUS 4.0 2.5 - 4.5 mg/dL 08/15/2025 2:[address] [facility] Blood 08/15/2025 1:11 AM CDT 08/15/2025 1:32 AM CDT Ben Porter MD CHEMISTRY ORDERABLES Final R esult Performing Organization Address [facility] Co de Phone Number [facility] CLIA # [id number] [address] [place] [address] * (ABNORMAL) BASIC METABOLIC PANEL (08/15/2025 1:11 AM CDT) Only the most recent of3 resultswithin the time period is included. [facility] SODIUM 135(L) 136 - 145 mmol/L 08/15/2025 2:[address] [facility] POTASSIUM 4.5 3.5 - 5.1 mmol/L 08/15/2025 2:[address] [facility] CHLORIDE 98 98 - 107 mmol/L 08/15/2025 2:[address] [facility] CO2 29 22 - 29 mmol/L 08/15/2025 2:[address] [facility] CALCIUM 7.6(L) 8.6 - 10.0 mg/dL 08/15/2025 2:[address] [facility] BUN 21(H) 6 - 20 mg/dL 08/15/2025 2:[address] [facility] CREATININE 4.37(H) 0.67 - 1.17 mg/dL 08/15/2025 2:[address] [facility] GLUCOSE 164(H) 74 - 99 mg/dL 08/15/2025 2:[address] [facility] GFR 17(L) >=60 mL/min/1. 73 sq meter 08/15/2025 2:[address] [facility] Comment:eGFR calculated with 2020 CKD-EPI equation. Vegetarian diet, extremely high or low muscle mass, and may affect results. Cystatin C with Glomerular Filtration Rate is a suitable alternative for these patients. ANION GAP 8(L) 9 - 20 mmol/L 08/15/2025 2:[address] [facility] Blood 08/15/2025 1:11 AM CDT 08/15/2025 1:32 AM CDT us Ben Porter MD CHEMISTRY ORDERABLES Final R esult [facility] CLIA # [id number] [address] [place] [address] * PTT (08/14/2025 5:57 PM CDT) Only the most recent of2 resultswithin the time period is included. [facility] PTT 32.4 24.8 - 37.2 seconds 08/14/2025 6:34 PM CDT [facility] Blood Venipuncture / Unknown 08/14/2025 5:57 PM CDT 08/14/2025 6:13 PM CDT [facility] - 08/14/2025 6:34 PM CDT Therapeutic Range: Hi-level PE/DVT heparin protocol 80.1 - 95.0 sec Lo-level PE/DVT heparin protocol 70.1 - 85.0 sec Cardiac Heparin Protocol 70.1 - 100.0 sec us Annel Leonardo NP HEMATOLOGY ORDERABLES Final Resu lt [facility] CLIA # [id number] Critical access hospital[address] [address] * (ABNORMAL) CBC WITHOUT DIFFERENTIAL (08/14/2025 5:57 PM CDT) [facility] WBC 5.2 4.5 - 11.0 K/uL 08/14/2025 6:19 PM CDT [facility] RBC 3.09(L) 4.60 - 6.20 M/uL 08/14/2025 6:19 PM CDT [facility] HEMOGLOBIN 9.2(L) 14.0 - 18.0 g/dL 08/14/2025 6:19 PM CDT [facility] HEMATOCRIT 28.6(L) 41.0 - 53.0 % 08/14/2025 6:19 PM CDT [facility] MCV 92.6 84.0 - 103.0 fL 08/14/2025 6:19 PM CDT [facility] MCH 29.8 27.0 - 34.0 pg 08/14/2025 6:19 PM CDT [facility] MCHC 32.2 30.0 - 35.0 g/dL 08/14/2025 6:19 PM CDT [facility] PLATELETS 278 140 - 440 K/uL 08/14/2025 6:19 PM CDT [facility] MPV 10.2 8.9 - 12.8 fL 08/14/2025 6:19 PM CDT [facility] RDW 14.1 11.0 - 14.5 % 08/14/2025 6:19 PM CDT [facility] RDW-STDEV 47.0 37.0 - 54.0 fL 08/14/2025 6:19 PM CDT [facility] Blood Venipuncture / Unknown 08/14/2025 5:57 PM CDT 08/14/2025 6:13 PM CDT Shimon Patino MD HEMATOLOGY ORDERABLES Final R esult Performing Organization Address City/[facility]/ZIP Co de Phone Number [facility] CLIA # [id number] [address] [address] * (ABNORMAL) HEMOGLOBIN A1C (08/14/2025 2:26 AM CDT) HEMOGLOBIN A1C 6.6(H) <=5.6 % 08/16/2025 10:23 AM BAG MAKING MACHINE TENDER [facility] EST. AVG GLUCOSE, A1C 143 mg/dL 08/16/2025 10:23 AM BAG MAKING MACHINE TENDER [facility] Blood Venipuncture / Unknown 08/14/2025 2:26 AM CDT 08/14/2025 5:23 AM CDT Narrative [facility] - 08/16/2025 10:23 AM BAG MAKING MACHINE TENDER HGB A1C INTERPRETATION NORMAL: <5.7% PRE-DIABETES: 5.7 - 6.4% DIABETES: 6.5% OR GREATER us Ben Porter MD CHEMISTRY ORDERABLES Final R esult Performing Organization Address City/[facility]/ZIP Co de Phone Number [facility] CLIA # [id number] [address] [address] * (ABNORMAL) LIPID PANEL (08/14/2025 2:26 AM CDT) [facility] Signature CHOLESTEROL 145 <200 mg/dL 08/14/2025 12:33 PM CDT [facility] TRIGLYCERIDE 158(H) <150 mg/dL 08/14/2025 12:33 PM T [facility] HDL 27(L) 40 - 59 mg/dL 08/14/2025 12:33 PM CDT [facility] LDL CALCULATED 86 <100 mg/dL 08/14/2025 12:33 PM T [facility] NON-HDL CHOLESTEROL 118 <130 mg/dL 08/14/2025 12:33 PM T [facility] Blood Venipuncture / Unknown 08/14/2025 2:26 AM CDT 08/14/2025 5:23 AM CDT [facility] - 08/14/2025 12:33 PM CDT TOTAL CHOLESTEROL [...] Leonardo NP CHEMISTRY ORDERABLES Final Resul t [facility] CLIA # [id number] [address] [place], [place] [address] [address] * BLOOD CULTURE (08/14/2025 2:24 AM CDT) Only the most recent of2 resultswithin the time period is included. [facility] BLOOD CULTURE No growth 08/19/2025 4:35 AM BAG MAKING MACHINE TENDER [facility] Blood (Peripheral) Venipuncture / Unknown 08/14/2025 2:24 AM CDT 08/14/2025 5:20 AM CDT Ben Porter MD MICROBIOLOGY - GENERAL ORDER OBEY Final Result Performing Organization Address [facility]/ZIP Co de Phone Number [facility] CLIA # [id number] [address] [address] [place] [address] * (ABNORMAL) TROPONIN (08/13/2025 5:17 PM CDT) [facility] TROPONIN T, 5TH GEN 319(HH) <=15 ng/L 08/13/2025 5:59 PM CDT [facility] Blood Venipuncture / Unknown 08/13/2025 5:17 PM CDT 08/13/2025 5:24 PM CDT Narrative [facility] - 08/13/2025 5:59 PM CDT Troponin elevated. us Iraida Roberto MD CHEMISTRY ORDERABLES Final Result Performing Organization Address City/[facility]/ZIP Co de Phone Number [facility] CLIA # [id number] [address] [address] [place] [address] * (ABNORMAL) COMPREHENSIVE METABOLIC PANEL (08/13/2025 5:17 PM CDT) Only the most recent of3 resultswithin the time period is included. [facility] SODIUM 139 136 - 145 mmol/L 08/13/2025 6:13 PM [facility] POTASSIUM 4.9 3.5 - 5.1 mmol/L 08/13/2025 6:13 PM [facility] Comment:Slightly hemolyzed. Result may be falsely elevated. CHLORIDE 95(L) 98 - 107 mmol/L 08/13/2025 6:13 PM [facility] CO2 29 22 - 29 mmol/L 08/13/2025 6:13 PM [facility] CALCIUM 9.1 8.6 - 10.0 mg/dL 08/13/2025 6:13 PM [facility] BUN 30(H) 6 - 20 mg/dL 08/13/2025 6:13 PM [facility] CREATININE 5.52(H) 0.67 - 1.17 mg/dL 08/13/2025 6:13 PM [facility] GLUCOSE 60(L) 74 - 99 mg/dL 08/13/2025 6:13 PM [facility] TOTAL PROTEIN 7.9 6.4 - 8.3 g/dL 08/13/2025 6:13 PM [facility] ALBUMIN 3.8 3.5 - 5.2 g/dL 08/13/2025 6:13 PM [facility] BILIRUBIN TOTAL 0.4 0.0 - 1.0 mg/dL 08/13/2025 6:13 PM [facility] ALKALINE PHOSPHATASE 84 40 - 129 U/L 08/13/2025 6:13 PM [facility] AST 26 10 - 50 U/L 08/13/2025 6:13 PM [facility] Comment:Hemolysis present. Result may be falsely elevated. ALT 15 <=50 U/L 08/13/2025 6:13 PM [facility] GFR 13(L) >=60 mL/min/1. 73 sq meter 08/13/2025 6:13 PM [facility] Comment:eGFR calculated with 2020 CKD-EPI equation. Vegetarian diet, extremely high or low muscle mass, and may affect results. Cystatin C with Glomerular Filtration Rate is a suitable alternative for these patients. ANION GAP 15 9 - 20 mmol/L 08/13/2025 6:13 PM CDT [facility] Blood Venipuncture / Unknown 08/13/2025 5:17 PM CDT 08/13/2025 5:24 PM CDT us Iraida Roberto MD CHEMISTRY ORDERABLES Final Result [facility] CLIA # [id number] [address] [address] * EKG 12-LEAD (08/13/2025 5:13 PM CDT) Only the most recent of2 resultswithin the time period is included. 08/13/2025 5:13 PM CDT Narrative [facility] - 08/15/2025 12:08 PM BAG MAKING MACHINE TENDER [address] [address] Test Date: 2025-08-13 Pat Name: VIDA SAN Department: 11 Room: 17 17 Gender: Male Director Talent: [email or web address] : 1990 Requested By: Order Number: [id number] Mckay MD: Amina Figueroa Measurements Intervals [place] Rate: 86 P: 52 IL: 158 QRS: 62 QRSD: 88 T: 73 QT: 394 QTc: 471 Interpretive Statements Normal sinus rhythm Possible Left atrial enlargement Borderline ECG Electronically Signed On 08-15-2025 12:08:21 BAG MAKING MACHINE TENDER by Amina Figueroa Procedure Note Provider, Historical - 08/15/[address] [address] Test Date: 2025-08-13 Pat Name: VIDA ROSEMARY Department: 11 Room: 17 17 Gender: Male Director Talent: [email or web address] : 1990 Requested By: Order Number: [id number] Reading MD: Amina Figueroa Measurements Intervals [place] Rate: 86 P: 52 IL: 158 QRS: 62 QRSD: 88 T: 73 QT: 394 QTc: 471 Interpretive Statements Normal sinus rhythm Possible Left atrial enlargement Borderline ECG Electronically Signed On 08-15-2025 12:08:21 BAG MAKING MACHINE TENDER by Amina Figueroa Protocol [facility] Emergency MD ECG ORDERABLES Final Result INTERFACE [...] 5TH GEN (08/13/2025 12:23 PM CDT) Pathologist [facility] TROPONIN T, BASELINE 5TH GEN 343(HH) <=15 ng/L 08/13/2025 1:07 PM CDT [facility] Comment:Hemolysis can falsel y decrease Troponin quantitation. Blood BLOOD SPECIMEN / Unknown Venipuncture / Unknown 08/13/2025 12:23 PM CDT 08/13/2025 12:34 PM CDT Narrative [facility] - 08/13/2025 1:07 PM CDT Troponin elevated. Scott Holguin MD CHEMISTRY ORDERABLES Final Result [facility] CLIA # [id number] [address] [place] [address] * TSH (08/13/2025 12:23 PM CDT) Pathologist [facility] TSH 3.78 0.27 - 4.20 uIU/mL 08/13/2025 1:08 PM CDT [facility] Blood BLOOD SPECIMEN / Unknown Venipuncture / Unknown 08/13/2025 12:23 PM CDT 08/13/2025 12:34 PM CDT Scott Holguin MD CHEMISTRY ORDERABLES Final Result Performing Organization Address City/[facility]/ZIP Co de Phone Number [facility] CLIA # [id number] [address] [place] [address] * (ABNORMAL) BRAIN NATRIURETIC PEPTIDE, BNP OR PROBNP (08/13/2025 12:23 PM CDT) Pathologist [facility] PROBNP, N TERMINAL >70,000(H ) 0 - 125 pg/mL 08/13/2025 1:39 PM CDT [facility] Comment: [...] CHEMISTRY ORDERABLES Final Result Performing Organization Address City/[facility]/ZIP Co de Phone Number [facility] CLIA # [id number] [address] [place] [address] * MAGNESIUM LEVEL (08/13/2025 12:23 PM CDT) MAGNESIUM 2.5 1.6 - 2.6 mg/dL 08/13/2025 1:08 PM CDT [facility] Blood BLOOD SPECIMEN / Unknown Venipuncture / Unknown 08/13/2025 12:23 PM CDT 08/13/2025 12:34 PM CDT Scott Holguin MD CHEMISTRY ORDERABLES Final Result [id number] [address] [place] [address] * LIPASE (08/13/2025 12:23 PM CDT) LIPASE 35 13 - 60 U/L 08/13/2025 1:08 PM CDT [facility] Blood BLOOD SPECIMEN / Unknown Venipuncture / Unknown 08/13/2025 12:23 PM CDT 08/13/2025 12:34 PM CDT Scott Holguin MD CHEMISTRY ORDERABLES Final Result [facility] [id number] [address] [place] [address] * MRI ANKLE WO CONTRAST LEFT (08/11/2025 [...] BOTH EYES (07/14/2025 10:08 AM CDT) Lucille [facility] 07/14/2025 10:08 AM CDT Time [...] to perform anterior laser. Kim Servin MD [facility] PROCEDURES Final R esult Performing Organization Address [facility] de Phone Number [facility]# [id number] [address] [address] * EYE DROPS (07/14/2025 10:07 AM CDT) Narrative [facility] - 07/14/2025 10:07 AM CDT .Eye drop [...] provider before laser in laser eye Result [facility] Kim Servin MD [facility] PROCEDURES Final R esult Performing Organization Address [facility] de Phone Number [facility]# [id number] [address] [address] * EYE DROPS (07/14/2025 10:07 AM CDT) Lucille [facility] - 07/14/2025 10:07 AM CDT Eye drop orders per protocol for Basic [employer] Product Development Manager Eye Exam (Non-Dilated) Instill proparacaine (OPHTHAINE) 0.5% ophthalmic solution. Amount: 1 drop per eye prior to tonometry If applanation is preferred method of tonometry: Instill fluorescein-benoxinate (FLURATE) 0.3-0.4 % ophthalmic solution 1 drop per eye during applanation us Kim Servin MD [facility] PROCEDURES Final R esult [facility] CLIA# [id number] [address] [place] [address] * INTRAVITREAL INJECTION, PHARMACOLOGIC AGENT - OU - BOTH EYES (07/07/2025 12:58 PM CDT) Narrative [facility] - 07/07/2025 12:58 PM CDT Time Out 07/07/2025. 12:58 PM. Confirmed correct patient, procedure, site, and patient consented. Anesthesia Topical anesthesia was used. Anesthetic medications included Proparacaine 0.5%, Tetracaine 0.5%. Procedure Right Eye Preparation included 0.25% betadine irrigation. A (32g) needle was used. Injection: 2 mg aflibercept 2 mg/0.05 mL Route: Intravitreal, Site: Eye, Right ND: 41234-981-85, Lot: [id number], Expiration date: 09/12/2026 Left Eye Preparation included 0.25% betadine irrigation. A (32g) needle was used. Injection: 2 mg aflibercept 2 mg/0.05 mL Route: Intravitreal, Site: Eye, Left ND: 50124-742-56, Lot: [id number], Expiration date: 09/12/2026 Post-op Right Eye Post [...] consent. 3.5 mm supratemporally each eye. Result [facility] Kim Servin MD [facility] PROC[facility]URES Final R esult Performing Organization Address [facility] Co de Phone Number [facility]# [id number] [address] [address] * EYE DROPS (07/07/2025 12:57 PM CDT) Narrative [facility] - 07/07/2025 12:57 PM CDT Medications Eye Drops: 2 Drop lidocaine (PF) 3.5 % Route: Topical, Site: Eye, Bilateral ND: 13042-962-94, Lot: [id number] 5 Drop povidone-iodine in balanced salt solution 0.25% Route: Topical, Site: Eye, Bilateral NDC: [id number], Lot: [id number], Expiration date: 07/08/2025 5 Drop proparacaine 0.5 % Route: Topical, Site: Eye, Bilateral NDC: 42020-365-94, Lot: [id number], Expiration date: 03/12/2027 5 Drop tetracaine HCl (PF) 0.5 % Route: Topical, Site: Eye, Bilateral ND: 5570-5247-14, Lot: [id number] Notes Eye drop orders per protocol for Intravitreal Injection Administer the following medications approximately 1 minute apart into the procedural/operative/affected eye 5 drops proparacaine (OPHTHAINE) 0.5% ophthalmic solution 5 drops of tetracaine (PF) 0.5% ophthalmic solution 5 drop of betadine mixture Kim Servin MD OPHTH CLINIC PROCEDURES Final R esult Performing Organization Address [facility] Co de Phone Number [facility]# [id number] [address] [place] [address] * OCT, RETINA - OU - BOTH EYES (07/07/2025 11:58 AM CDT) Narrative [facility] OPHTHALMOLOGY ORDERS - 07/07/2025 12:57 PM CDT RIGHT EYE: Mild macular edema, Intraretinal cystoid spaces, and intraretinal hyper-reflective foci. Mild intraretinal fluid LEFT EYE: Diabetic Macular Edema - worsened, Intraretinal cystoid spaces, intraretinal hyper-reflective foci, and disruption of outer-retinal layers. Kim Servin MD OPHTH TOMOGRAPHY Final Result Performing Organization Address [facility]/ZIP Co de Phone Number [facility] OPHTHALMOLOGY ORDERS * EYE DROPS (07/07/2025 11:23 AM CDT) Narrative [facility] - 07/07/2025 12:57 PM CDT Medications Eye Drops: 1 Drop phenylephrine (AK-DILATE, MYDFRIN) 2.5% ophthalmic solution Route: Both Eyes [facility]: [id number], Lot: [id number], Expiration date: 11/13/2026 1 Drop proparacaine (OPHTHAINE) 0.5% ophthalmic solution Route: Both Eyes ND: 26119-532-75, Lot: [id number], Expiration date: 12/11/2026 1 Drop tropicamide (MYDRIACYL) 1% ophthalmic solution Route: Both Eyes ND: 40072-840-61, Lot: [id number], Expiration date: 12/11/2026 Notes Eye drop orders per protocol for Basic [employer] Product Development Manager Eye Exam (Dilated) 1 Drop proparacaine (OPHTHAINE) 0.5% ophthalmic solution prior to tonometry 1 Drop tropicamide (MYDRIACYL) 1% ophthalmic solution 1 Drop phenylephrine (AK-DILATE, MYDFRIN) 2.5% ophthalmic solution Kim Servin MD OPH CLINIC PROCEDURES Final R esult [facility] CLIA# [id number] [address] [place] [address] * CT ABDOMEN PELVIS WO CONTRAST (08/07/2024 [...] URINE 67.8 mg/dL 07/11/2015 11:45 PM T [facility] CREATININE, URINE 163.8 40.0 - 278.0 mg/dL 07/11/2015 11:45 PM [facility] Comment: Reference Range varies with fluid intake and diet. MICROALBUMIN/CR EAT RATIO, UR 413.9 mg/g Creatinine 07/11/2015 11:45 PM T [facility] Comment: Condition mg/g Creatinine Normal Males <17 Normal Females <25 Microalbuminuria Males 17-299 Microalbuminuria Females 25-299 Overt proteinuria >=300 Urine 07/11/2015 10:5 3 PM CDT 07/11/2015 10:53 PM CDT Jyoti Shirley CARGO SUPERVISOR URINE ORDERABLES Final Result [facility] CLIA # [id number] [address] [address] [facility] CLIA # [id number] [address] [address] from Last 3 Months or Most Recently Relevant to Health Maintenance Additional Health Concerns Active Problems Noted Date Diagnosed Date Heart Failure Problem 08/18/2025 Insurance [place] [place] [address] PPO [facility] RX [employer] RX Member Subscriber Plan / Payer (Ef fective 2025-Present) Name:Vida San Relation to Subscriber:Not on file Name:Vida San Subscriber ID:Not on file Date of :1990 Payer ID:Not on file Group ID:[id number] Type:RX Medicare Part D Address: [facility] [place] RX INFOCROSSING Medicaid Advance Directives For more information, please contact: [phone] * Full Code (Latest Code Status on [...] Non-Invasive (i.e. BiPAP, CPAP): Yes Care Teams Second Crusher Relationship Specialty Start Date End Date Duke Alarcon MD [address] [phone] PCP - General Family Practice 08/10/24
--- OUTSIDE RECORDS SUMMARY | 2025-09-18 14:50 | XMS_ITS | Encounter Summary ---
Author Organization [facility] Address [address] [place] [address] Care Team Providers Care Ultrasonic Seaming Machine Operator Name Role Phone Karlo Banks MD Primary Care Provider [phone] Encounter Details Date Type Department Care Team (Latest Contact Info) Description 01/24/2004 Outpatient Historical [facility] [address] [place] [phone] Holland Bell MD [address] [place] [address] ASTHMA UNSPECIFIED (Primary Dx) Social History Tobacco Use Types Packs/Day Years Used Date Smoking Tobacco: Never Assessed Sex and Gender Information Value Date Recorded Sex Assigned at Not on file Legal Sex Male 5:07 AM VINYL CUTTER Gender Identity Not on file Sexual Orientation Not on file documented as of this encounter Plan of Treatment Not on file documented as of this encounter Visit Diagnoses Diagnosis Unspecified asthma(493.90)- Primary Unspecified asthma documented in this encounter Care Teams Ultrasonic Seaming Machine Operator Relationship Specialty Start Date End Date Karlo Banks MD PCP - General Internal Medicine 10/14/14 01/11/21 documented as of this encounter
--- OUTSIDE RECORDS SUMMARY | 2025-09-18 14:50 | XMS_ITS | Clinical Summary ---
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
--- OUTSIDE RECORDS SUMMARY | 2025-09-18 14:50 | XMS_ITS | Encounter Summary ---
Author Organization [facility] Address [address] [place] [address] Care Team Providers Care Hr Representative Name Role Phone Duke Alarcon MD Primary Care Provider [phone] Reason for Visit * Reason Comments Med Refill Encounter Details Date Type Department Care Team (Late st Contact Info) Description 09/16/2025 Refill [facility] Family Medicine [address] [phone] Duke Alarcon MD [address] [phone] Type 1 diabetes mellitus with chronic kidney disease on chronic dialysis ([facility]) Social History Tobacco Use Types [...] worry about transportation for future doctor visits, 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 No 2024 Housing Stability Answer Date Recorded Do you worry you won t have a steady place to sleep or struggle to pay rent or mortgage? No 08/25/2025 Utility Needs Answer Date Recorded Do you have difficulty payin g for utility costs ([employer], water or gas bills)? No 08/25/2025 Medication [...] on file Legal Sex Male 3:23 AM HOME HEALTH MANAGER Gender Identity Not on file Sexual Orientation Not on file documented as of this encounter Plan of Treatment Upcoming Encounters Date Type Department Care Team (Late st Contact Info) Description 09/27/2025 9:30 AM HOME HEALTH MANAGER Office Visit [facility] Post Adoption Coordinator Optometry [facility] [place] [phone] [place] [address] Constantin Bales, OD [address] [place] [id number] 10/20/2025 3:20 PM HOME HEALTH MANAGER Office Visit [facility] Family Medicine [address] [phone] Duke Alarcon MD [address] [phone] documented as of this encounter Goals Goal Patient Goal Type Associated Problems Recent Progress Patient-Stated? Author Heart Failure Goal Care Plan Heart Failure Problem No Faye Denny documented as of this encounter Visit Diagnoses Diagnosis Type 1 diabetes mellitus with chronic kidney disease on chronic dialysis ([facility]) documented in this encounter Additional Health Concerns Active Problems Noted Date Diagnosed Date Heart Failure Problem 08/18/2025 documented as of this encounter Care Teams Hr Representative Relationship Specialty Start Date End Date Duke Alarcon MD [address] [phone] PCP - General Family Practice 08/10/24 documented as of this encounter
[2025-09-18] MEDS: morphine 4 mg/mL SDV 1 mL 2 MG IVP (16:12)
--- NOTE | 2025-09-18 16:16 | ECG_ITS ---
[facility] Test Date: 2025-09-18 Pat Name: Hunter San Department: Room: Gender: Male Edger Runner: : 1990 Requested By: Nedra Camacho Order Number: [id number] Mckay MD: MILI LOPEZ Measurements Intervals Irene Rate: 88 P: 53 CT: 175 QRS: 34 QRSD: 95 T: 101 QT: 387 QTc: 468 Interpretive Statements SINUS RHYTHM POSSIBLE LEFT ATRIAL ENLARGEMENT [-0.1mV P-WAVE IN V1/V2] TALL T-WAVES, SUGGESTS HYPERKALEMIA Compared to ECG 06/26/2025 18:13:46 T-wave abnormality no longer present Prolonged QT interval no longer present Electronically Signed On 09-18-2025 18:39:47 [employer] by MILI LOPEZ [email or web address]
[2025-09-18 16:40] LABS: Troponin 5 6HR 263.1 ng/L (0-15); Troponin 5 6HR Delta -18.9 ng/L (0-12)
[2025-09-18] MEDS: heparin, porcine 1,000 unit/mL INJ 10 mL 1000 UNIT IV (18:40)
[2025-09-18] MEDS: insulin glargine 100 units/1 mL 25 UNIT SUBCUT (19:42)
--- NOTE | 2025-09-18 19:42 | PM.CONSULT ---
Providers/Reason For Consult Consulting Physician/Specialty*: nephrology Reason for Consult*: esrd, hyperkalemia Attending Physician: Sarah Champagne NP Primary Care Provider: Duke Alarcon History of Present Illness History of Present Illness Patient is a 34 year old male, with a history of esrd, dm1, htn, HFpEF, who presented to the ER on 09/18/25 from his outpatient HD clinic complaining of substernal chest pain. He notes that he went to his HD clinic for his hd treatment when he developed chest pain that did not improve with SL NTG. He was sent to the er for further evaluation. On presentation, his workup was significant for a troponin 82 and potassium 6.9. Nephrology was consulted for further management of his HD. Review of Systems General: Reports: 10 or more systems reviewed and unremarkable except in HPI and below Medications/Allergies Home Medications ?Medication ?Instructions ?Recorded ?Confirmed ?Last Taken ?Type Intraoperative Neuromonitoring #1 ea 08/22/22 09/18/25 Unknown Rx insulin syringe-needle U-100 1 mL #100 ea 06/27/23 09/18/25 Unknown Rx 31 gauge x 5/16 (BD Insulin Syringe Ultra-Fine) pen needle, diabetic 32 gauge x #100 ea 06/27/23 09/18/25 Unknown Rx 1/4 (BD Ultra-Fine Micro Pen Needle) blood sugar diagnostic (True #100 ea 10/04/23 09/18/25 Unknown Rx Metrix Glucose Test Strip) blood-glucose meter (True Metrix #1 ea 10/04/23 09/18/25 Unknown Rx Air Glucose Meter kit) lancets 31 gauge #100 ea 10/04/23 09/18/25 Unknown Rx blood-glucose sensor (Dexcom G7 #1 ea 10/21/23 09/18/25 Unknown History Sensor device) bupropion HCl 150 mg 24 hr tablet, 150 mg PO DAILY 11/06/24 09/18/25 09/17/25 History extended release epinephrine 0.3 mg/0.3 mL See Rx Instructions .Route .COMPLEX 11/06/24 09/18/25 Unknown History injection, auto-injector aripiprazole 5 mg tablet 5 mg PO DAILY 04/12/25 09/18/25 09/17/25 History aspirin 81 mg tablet,delayed 81 mg PO DAILY 04/12/25 09/18/25 09/18/25 08:00 History release gabapentin 100 mg capsule 200 mg PO TID 04/12/25 09/18/25 09/17/25 History ondansetron 4 mg disintegrating 4 mg PO Q6H PRN nausea/emesis 04/12/25 09/18/25 Unknown History tablet bumetanide 1 mg tablet 1 mg PO DAILY #30 tabs 04/14/25 09/18/25 09/17/25 Rx insulin lispro 100 unit/mL See Rx Instructions .Route 04/14/25 09/18/25 09/17/25 Rx subcutaneous pen (Humalog KwikPen .COMPLEX #15 mL (U-100) Insulin) albuterol sulfate 90 mcg/actuation 2 puff inhalation Q6H PRN 06/15/25 09/18/25 09/17/25 History aerosol inhaler (Ventolin HFA) Shortness Of Breath insulin glargine 100 unit/mL (3 25 unit SUBCUT BID 06/15/25 09/18/25 06/15/25 History mL) subcutaneous pen (Lantus Solostar U-100 Insulin) isosorbide mononitrate 30 mg 30 mg PO DAILY 06/15/25 09/18/25 09/18/25 08:00 History tablet,extended release 24 hr naloxone 4 mg/actuation nasal spray See Rx Instructions .Route .COMPLEX 06/15/25 09/18/25 Unknown History sevelamer carbonate 800 mg tablet 1,600 mg PO TID 06/15/25 09/18/25 09/17/25 History ferrous gluconate 324 mg (37.5 mg 324 mg PO BID #60 tabs 06/18/25 09/18/25 Unknown Rx iron) tablet amlodipine 10 mg tablet 10 mg PO DAILY 09/18/25 09/18/25 09/18/25 08:00 History clonidine 0.2 mg/24 hr weekly 1 patch topical Q7D 09/18/25 09/18/25 Unknown History transdermal patch hydralazine 100 mg tablet 100 mg PO Q8H 09/18/25 09/18/25 09/17/25 History morphine 15 mg immediate release 15 mg PO Q8H PRN Pain 09/18/25 09/18/25 09/17/25 History tablet sodium zirconium cyclosilicate 5 5 g PO Q48H 09/18/25 09/18/25 09/14/25 History gram oral powder packet (Lokelma) Allergies Allergy/AdvReac Type Severity Reaction Status Date / Time bee venom protein (honey bee) Allergy Unknown Verified 08/17/25 07:40 lisinopril Allergy Unknown Verified 08/17/25 07:40 Current Medications Generic Name Dose Route Start Last Admin Trade Name Freq PRN Reason Stop Dose Admin Clonidine HCl 1 patch 09/18/25 14:00 09/18/25 15:00 Clonidine 0.2 Mg/24 Hr Patch TOPICAL 1 patch Q7D LILI Administration Dextrose 250 mls @ 1,000 mls/hr 09/18/25 11:23 09/18/25 12:08 D10w IV Infused PRN PRN Infusion HYPOGLYCEMIA Nitroglycerin/Dextrose 50 mg in 250 mls @ 0 mls/hr 09/18/25 12:55 09/18/25 19:00 Nitroglycerin Drip IV 0 mcg/min .Q0M LILI 0 mls/hr Protocol Titration Per Protocol Insulin Human Lispro 0 unit 09/18/25 18:00 09/18/25 17:59 Insulin Lispro 100 Unit/1 Ml SUBCUT Not Given WM&BEDTIME [facility] Protocol Morphine Sulfate 2 mg 09/18/25 12:55 09/18/25 16:12 Morphine 4 Mg/Ml Sdv 1 Ml IVP 2 mg Q4H PRN Administration SEVERE PAIN Morphine Sulfate 15 mg 09/18/25 12:55 09/18/25 18:38 Morphine Ir 15 Mg Tablet PO 15 mg Q4H PRN Administration SEVERE PAIN PFSH Acute PFSH: Medical History (Updated 09/18/25 @ 11:29 by Nedra Camacho MD) End stage renal disease on dialysis due to type 1 diabetes mellitus Chronic left-sided low back pain with left-sided sciatica Type 1 diabetes End stage renal disease on dialysis Opiate dependence Other stimulant abuse, uncomplicated Waking at night short of breath Snoring Hypersomnia Insomnia Noncompliance w/medication treatment due to intermit use of medication Schizophrenia Methamphetamine abuse Uncontrolled hypertension Family History Other CAD (coronary artery disease) Hypertension Stroke Social History Smoking and tobacco/nicotine status: current every day tobacco/nicotine user Alcohol intake: former Substance/Drug Use: former Date of last use: Amphetamines more than 62 days ago Caregiver/support person: Yes Lives independently: Yes Household members: other Current occupation: [employer] Vitals/I&O/Wt Last Vital Signs Temp 98.1 F 09/18/25 18:50 Pulse 94 09/18/25 18:50 Resp 18 09/18/25 18:50 BP 210/119 09/18/25 18:50 Pulse Ox 92 09/18/25 18:38 O2 Del Method Room Air 09/18/25 18:54 09/18/25 09/18/25 09/18/25 06:59 14:59 22:59 Intake Total 251.625 / 251.625 38.925 / 290.550 Balance 251.625 / 251.625 38.925 / 290.550 Weight last 48 hrs Weight 99.79 kg Physical Exam Narrative: GEN: nad, alert, conversant HEAD: Normocephalic, atraumatic EYES: eomi, anicteric sclera HEENT: mmm NECK: no jvd CV: rrr LUNGS: ctab EXT: NO LE edema NEURO: grossly normal SKIN: no rash Data 09/18/25 10:28 09/18/25 10:28 A&P Assessment and plan 1. End stage renal disease on dialysis due to type 1 diabetes mellitus: 2. Hypertensive urgency: Plan: ESRD- He is on hd on a tts schedule. He is tolerating hd today with a uf of 2.7L hyperkalemia- i will use a low k dialysate. Start a low k diet - resume [facility] Hypertensive Urgency- his BP remains elevated. resume outpatient medications. Start a cardizem drip if his bp fails to improve Chest pain - further management per cardiology PDMP PDMP Reviewed: Not Reviewed Consult Attestations Medical Necessity Statement: esrd with hyperkalemia Time Spent in Patient Care: 50 minutes Coding Level of Care Code Acute Code for Chg Fwd Diagnoses End stage renal disease on dialysis due to type 1 diabetes mellitus E10.22; N18.6; Z99.2 Hypertensive urgency I16.0
--- NOTE | 2025-09-18 19:49 | PC.NURSE ---
notified noc hospitalist on pt's BP still elevated in upper 190s systolic to 200s on Nitro drip at 40 mcg/min for HTN. Patient is having a headache and can't tolerate so Nitro drip is paused. Asked provider if there is anything else we can do for BP. Dr Santacruz is aware.
[2025-09-18] MEDS: metoprolol tartrate 1 mg/1 mL SDV 5 mL 5 MG IVP ×2 (20:41→21:45)
[2025-09-18] MEDS: HYDROmorphone 0.5 MG/0.5 ML INJ 0.8 MG IVP (20:42)
[2025-09-19] VITALS (40 sets, daily range): BP systolic 123–185; BP diastolic 69–103; PULSE 74–84; RESP 9–29; TEMP 36.4–36.7; O2SAT 89–100
[2025-09-19 02:47] LABS: Hematocrit 26.6 % (37-53); Hemoglobin 8.40 g/dL (11.27-16.99); Mean Corpuscular HGB Conc 31.6 g/dL (30-55); Mean Corpuscular Hemoglobin 30.3 pg (27-33); Mean Corpuscular Volume 96.0 fl (82-101); Nucleated Red Blood Cells % 0 %; Platelet Count 202 10^3/cmm (157-399); Red Blood Count 2.77 10^6/uL (3.85-5.65); White Blood Count 6.86 10^3/uL (3.29-11.43)
[2025-09-19 03:01] LABS: Estmated Average Glucose 108; Hemoglobin A1C 5.4 % (4.0-6.0)
[2025-09-19 03:07] LABS: Cholesterol 161 mg/dL (0-200); HDL Cholesterol 37 mg/dL (60-100); Triglycerides 109 mg/dL (0-150)
[2025-09-19 03:14] LABS: Alanine Aminotransferase 11 U/L (0-41); Albumin Level 3.7 g/dL (3.5-5.2); Alkaline Phosphatase 89 U/L (40-130); Anion Gap 14.8 (5-19); Aspartate Amino Transferase 12 U/L (0-40); Blood Urea Nitrogen 29 mg/dL (6-20); Calcium 8.5 mg/dL (8.5-10.5); Carbon Dioxide 30 mmol/L (22-29); Chloride 99 mmol/L (98-107); Globulin 2.4 g/dL (1.3-4.6); Glucose 91 mg/dL (65-115); Magnesium 2.3 mg/dL (1.7-2.3); Osmolality Calculated 291 mOsm/kg (285-295); Potassium 5.8 mmol/L (3.5-5.1); Sodium 138 mmol/L (136-145); Thyroid Stimulating Hormone 7.08 uIU/mL (0.27-4.20); Total Protein 6.1 g/dL (6.6-8.7)
[2025-09-19] MEDS: HYDROmorphone 0.5 MG/0.5 ML INJ 0.8 MG IVP ×2 (09:42→12:50)
[2025-09-19] MEDS: ondansetron 2 mg/ML SDV 2 mL 4 MG IVP (12:50)
--- NOTE | 2025-09-19 13:16 | PM.DCS ---
Discharge Providers Date of Admission: 09/18/25 11:25 Date of Discharge: September 19, 2025 Attending Provider at Admission: Clifton Alvarado MD Attending Provider at Discharge: Clifton Alvarado MD Primary Care Provider: Duke Alarcon Diagnoses at Discharge Discharge Diagnosis 1. Hypertensive emergency: 2. Hyperkalemia: 3. Chronic pericardial effusion: 4. DM type 1 causing renal disease: 5. Elevated troponin: 6. ESRD on hemodialysis: 7. Noncompliance w/medication treatment due to intermit use of medication: Reason for Visit Reason for Visit: chest pain; sob Brief History: 34-year-old male with known history of ESRD, came to the ER with complaint of chest pressure and difficulty breathing. He was found to have some fluid retention plus hyperkalemia, as well as severely elevated blood pressure, which has been attributed to poor compliance. Nephrology was consulted, who did an urgent dialysis. Cardiology was consulted, who started patient on nicardipine drip, given the severely elevated BP. Troponin levels were trended, which did not show any significant elevation. Otherwise, other symptoms were treated empirically. Patient's antihypertensive home medications were resumed, while he was monitored closely. Hospital Course Hospital Course As at this morning, patient had returned back to baseline. Nephrology recommended putting patient on increased dose of Lokelma 10 grams daily, while collection agent recommend increasing his carvedilol to 12.5 mg twice daily. With these adjustment made, patient is therefore discharged. Physical Exam Narrative: General: Awake and alert patient. Resp: No obvious respiratory distress or difficulty breathing. Skin: No obvious rashes or new skin lesions. All other physical findings essentially within normal limits. Discharge Data Studies Completed and Pending Completed Studies During Hospitalization Category Date Time Status XR chest 1V portable [id number] Stat Exams 09/18/25 10:16 Completed Radiology Impressions Chest X-Ray 09/18/25 10:16 IMPRESSION: No acute pulmonary pathology. Increased cardiac silhouette again noted. Laboratory Results WBC 6.86 10^3/uL (3.29-11.43) 09/19/25 02:21 RBC 2.77 10^6/uL (3.85-5.65) L 09/19/25 02:21 Hgb 8.40 g/dL (11.27-16.99) L 09/19/25 02:21 Hct 26.6 % (37-53) L 09/19/25 02:21 MCV 96.0 fl (82-101) 09/19/25 02:21 MCH 30.3 pg (27-33) 09/19/25 02:21 MCHC 31.6 g/dL (30-55) 09/19/25 02:21 RDW 15.6 % (12.1-15.1) H 09/19/25 02:21 Plt Count 202 10^3/cmm (157-399) 09/19/25 02:21 MPV 10.1 fL (7.4-10.4) 09/19/25 02:21 Neut % (Auto) 62.8 % 09/19/25 02:21 Lymph % (Auto) 25.2 % 09/19/25 02:21 Weston % (Auto) 7.0 % 09/19/25 02:21 Eos % (Auto) 3.5 % 09/19/25 02:21 Baso % (Auto) 1.2 % 09/19/25 02:21 Neut # (Auto) 4.31 10^3/uL (1.8-7.7) 09/19/25 02:21 Lymph # (Auto) 1.7 10^3/uL (0.8-4.8) 09/19/25 02:21 Weston # (Auto) 0.5 10^3/uL (0.2-0.9) 09/19/25 02:21 Eos # (Auto) 0.2 10^3/uL (0.0-0.8) 09/19/25 02:21 Baso # (Auto) 0.1 10^3/uL (0.0-0.1) 09/19/25 02:21 Nucleated RBC % (auto) 0 % 09/19/25 02:21 Nucleated RBCs # 0.0 /100WBC 09/19/25 02:21 Sodium 138 mmol/L (136-145) 09/19/25 02:21 Potassium 5.8 mmol/L (3.5-5.1) H 09/19/25 02:21 Chloride 99 mmol/L (98-107) 09/19/25 02:21 Carbon Dioxide 30 mmol/L (22-29) H 09/19/25 02:21 Anion Gap 14.8 (5-19) 09/19/25 02:21 BUN 29 mg/dL (6-20) H 09/19/25 02:21 Creatinine 5.0 mg/dL (0.7-1.2) H 09/19/25 02:21 GFR Calculation 13.4 mL/min (90-130) L 09/19/25 02:21 Glucose 91 mg/dL (65-115) 09/19/25 02:21 POC Glucose 163 mg/dL (70-110) H 09/19/25 11:06 Estimat Average Glucose 108 09/19/25 02:21 Hemoglobin A1c 5.4 % (4.0-6.0) 09/19/25 02:21 Calculated Osmolality 291 mOsm/kg (285-295) 09/19/25 02:21 Calcium 8.5 mg/dL (8.5-10.5) 09/19/25 02:21 Magnesium 2.3 mg/dL (1.7-2.3) 09/19/25 02:21 Total Bilirubin 0.8 mg/dL (0.15-1.2) 09/19/25 02:21 AST 12 U/L (0-40) 09/19/25 02:21 ALT 11 U/L (0-41) 09/19/25 02:21 Alkaline Phosphatase 89 U/L (40-130) 09/19/25 02:21 Troponin T Baseline 282 ng/L (0-15) H* 09/18/25 10:28 Troponin T 120 Minute 259.2 ng/L (0-15) H 09/18/25 12:11 Delta Troponin T -22.8 ABS# (0-10) L 09/18/25 12:11 Troponin T Hi Sens 6Hr 263.1 ng/L (0-15) H 09/18/25 15:50 Troponin T Hi Sens 6Hr Delta -18.9 ng/L (0-12) L 09/18/25 15:50 NT-Pro-B Natriuret Pep 93114 pg/mL (0-125) H 09/18/25 10:28 Total Protein 6.1 g/dL (6.6-8.7) L D 09/19/25 02:21 Albumin 3.7 g/dL (3.5-5.2) 09/19/25 02:21 Globulin 2.4 g/dL (1.3-4.6) 09/19/25 02:21 Triglycerides 109 mg/dL (0-150) 09/19/25 02:21 Cholesterol 161 mg/dL (0-200) 09/19/25 02:21 LDL Cholesterol, Calc 102 mg/dL (50-129) 09/19/25 02:21 HDL Cholesterol 37 mg/dL (60-100) L 09/19/25 02:21 LDL/HDL Ratio 2.76 RATIO (0.00-3.22) 09/19/25 02:21 Cholesterol/HDL Ratio 4.35 mg/dL (1.0-5.00) 09/19/25 02:21 TSH 7.08 uIU/mL (0.27-4.20) H 09/19/25 02:21 Vitals Last Vital Signs Temp 98.1 F 09/19/25 07:32 Pulse 80 09/19/25 11:55 Resp 12 09/19/25 11:55 BP 159/82 09/19/25 11:55 Pulse Ox 95 09/19/25 11:55 O2 Del Method Room Air 09/19/25 08:35 FiO2 21 09/18/25 21:50 Discharge Plan Discharge Patient Disposition: Home Condition: Stable Prescriptions: New carvedilol 12.5 mg Tablet 12.5 mg PO BID Qty: 60 1RF Continued (DME) blood-glucose meter [True Metrix Air Glucose Meter] Kit See Rx Instructions .Route Qty: 1 0RF Rx Instructions: As directed (DME) True Metrix Glucose Test Strip Strip See Rx Instructions .Route Qty: 100 0RF Rx Instructions: As directed (DME) lancets 31 gauge misc See Rx Instructions .Route Qty: 100 0RF Rx Instructions: As directed (DME) Dexcom G7 Sensor Device See Rx Instructions .ROUTE .MEDSUPPLY Qty: 1 Rx Instructions: As directed (DME) Intraoperative Neuromonitoring See Rx Instructions .Route .MEDSUPPLY Qty: 1 0RF Rx Instructions: As directed (DME) pen needle, diabetic [BD Ultra-Fine Micro Pen Needle] 32 gauge x 1/4 needle See Rx Instructions .ROUTE .MEDSUPPLY Qty: 100 3RF Rx Instructions: As directed (DME) insulin syringe-needle U-100 [BD Insulin Syringe Ultra-Fine] 1 mL 31 gauge x 5/16 syringe See Rx Instructions .ROUTE .COMPLEX Qty: 100 1RF Dose Instruction: DIRECTED Rx Instructions: DIRECTED epinephrine 0.3 mg/0.3 mL auto-injector See Rx Instructions .ROUTE .COMPLEX Rx Instructions: INJECT 0.3 INTRAMUSCULARLY ONCE DAILY NEEDED FOR ANAPHYLAXIS bupropion HCl 150 mg tablet extended release 24 hr 150 mg PO DAILY aspirin 81 mg tablet,delayed release (DR/EC) 81 mg PO DAILY gabapentin 100 mg capsule 200 mg PO TID ondansetron 4 mg tablet,disintegrating 4 mg PO Q6H PRN (Reason: nausea/emesis) aripiprazole 5 mg tablet 5 mg PO DAILY bumetanide 1 mg tablet 1 mg PO DAILY Qty: 30 0RF insulin lispro [Humalog KwikPen Insulin] 100 unit/mL insulin pen See Rx Instructions .ROUTE .COMPLEX Qty: 15 0RF Rx Instructions: Inject 6 units 3 times daily plus MEDIUM dose sliding scale. Less than/equal to 70 treat hypoglycemia per nursing protocol. 71-119 No additional insulin. 120-150 2 units. 151-200 4 units. 201-250 6 units. 251-300 8 units. 301-350 10 units. Greater than 351 12 units. isosorbide mononitrate 30 mg tablet extended release 24 hr 30 mg PO DAILY albuterol sulfate [Ventolin HFA] 90 mcg/actuation HFA aerosol inhaler 2 puff INHALATION Q6H PRN (Reason: Shortness Of Breath) sevelamer carbonate 800 mg tablet 1,600 mg PO TID naloxone 4 mg/actuation spray,non-aerosol See Rx Instructions .ROUTE .COMPLEX Rx Instructions: EMERGENCY USE ONLY. ADMINISTER 1 SPRAY (4MG) IN ONE NOSTRIL ONE TIME. MAY REPEAT IN ALTERNATING NOSTRILS EVERY 2-3 MINUTES UNTIL RESPONSIVE OR EMS ARRIVES. 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 Discharge Diet: Cardiac and Diabetic Discharge Activity: Resume usual activity Patient Instructions: Carvedilol (By mouth), Opioid Safety, Patient Portal & Penny Instructions Activity Restrictions/Additional Instructions: Follow up with the warp starter and collection agent as directed. Follow up with your primary care provider within the next 1 to 2 weeks. Discharge Attestations Time Spent in Discharge Care*: less than 30 min Status at Discharge: Cognitive status at discharge: cognitively intact, Behavioral status at discharge: cooperative, Quality Metrics Clinical Quality Measures [ No reported AMI, CVA or VTE this stay] Coding Level of Care Code Acute Code for Chg Fwd Diagnoses Hypertensive emergency I16.1 Hyperkalemia E87.5 Chronic pericardial effusion I31.39 DM type 1 causing renal disease E10.29 Elevated troponin R79.89 ESRD on hemodialysis N18.6; Z99.2 Noncompliance w/medication treatment due to intermit use of medication Z91.148
--- NOTE | 2025-09-19 13:19 | P.PN_ITS ---
Subjective 2 Subjective: Patient has no complaints Medications: Reviewed: Yes Vitals/I&O/Wt Last Vital Signs Temp 98.1 F 09/19/25 07:32 Pulse 80 09/19/25 11:55 Resp 12 09/19/25 11:55 BP 159/82 09/19/25 11:55 Pulse Ox 95 09/19/25 11:55 O2 Del Method Room Air 09/19/25 08:35 FiO2 21 09/18/25 21:50 09/18/25 09/19/25 09/19/25 22:59 06:59 14:59 Intake Total 41.850 / 293.475 517.275 / 810.750 480 / 480 Output Total 3239 / 3239 Balance 41.850 / 293.475 -2721.725 / -2428.250 480 / 480 Weight last 48 hrs Weight 96 kg Weight 96 kg Weight 99.79 kg Physical Exam 2 Narrative: GEN: nad, alert, conversant HEAD: Normocephalic, atraumatic EYES: eomi, anicteric sclera HEENT: mmm NECK: no jvd CV: rrr LUNGS: ctab EXT: NO LE edema NEURO: grossly normal SKIN: no rash Data 09/19/25 02:21 09/19/25 02:21 A&P Assessment and plan 1. End stage renal disease on dialysis due to type 1 diabetes mellitus: Plan: ESRD- He is on hd on a tts schedule. He is toleraed hd today with a uf of 2.7L. there is no indicaion for hd today hyperkalemia- i will use a low k dialysate. cont a low k diet. he will need to increase his Lokelma to 10gm daily - i will give a dose of kayexalate Hypertensive Urgency- his BP is better controlled but still elevated. cont to titrate medications Chest pain - further management per cardiology PDMP PDMP Reviewed: Not Reviewed Attestations 2 Medical Necessity Statement*: esrd, hyperkalemia Time Spent in Patient Care: 25 minutes Coding Level of Care Code Acute Code for Chg Fwd Diagnoses End stage renal disease on dialysis due to type 1 diabetes mellitus E10.22; N18.6; Z99.2
--- NOTE | 2025-09-19 13:45 | P.PN_ITS ---
Subjective 2 Subjective: On today feeling much better blood pressure is improving Medications: Reviewed: Yes Vitals/I&O/Wt Last Vital Signs Temp 98.1 F 09/19/25 07:32 Pulse 80 09/19/25 11:55 Resp 12 09/19/25 11:55 BP 159/82 09/19/25 11:55 Pulse Ox 95 09/19/25 11:55 O2 Del Method Room Air 09/19/25 08:35 FiO2 21 09/18/25 21:50 09/18/25 09/19/25 09/19/25 22:59 06:59 14:59 Intake Total 41.850 / 293.475 517.275 / 810.750 480 / 480 Output Total 3239 / 3239 Balance 41.850 / 293.475 -2721.725 / -2428.250 480 / 480 Weight last 48 hrs Weight 211 lb 10.3 oz Weight 211 lb 10.3 oz Weight 220 lb Physical Exam 2 Const: OTHER: GENERAL: Patient is alert, awake and oriented x3. HEART: Regular S1 and S2. No murmur, rub or gallop. LUNGS: Clear to auscultate bilaterally. CENTRAL NERVOUS SYSTEM: Grossly nonfocal. EXTREMITIES: Lower extremities with out edema bilaterally. Data 09/19/25 02:21 09/19/25 02:21 A&P Assessment and plan 1. Hypertensive urgency: 2. Elevated troponin: 3. Hyperkalemia: 4. ESRD on hemodialysis: 5. Chronic pericardial effusion: Plan: I will increase carvedilol to 12.5 mg twice a day Continue amlodipine Continue isosorbide mononitrate Continue hydralazine Patient underwent dialysis today. If blood pressure remains stable tomorrow will DC home. Patient is off nitro drip PDMP PDMP Reviewed: Not Reviewed Attestations 2 Medical Necessity Statement*: Patient require continuation hospitalization for above defined care Coding Level of Care Code Acute Code for Chg Fwd Diagnoses Hypertensive urgency I16.0 Elevated troponin R79.89 Hyperkalemia E87.5 ESRD on hemodialysis N18.6; Z99.2 Chronic pericardial effusion I31.39
== END 2025-09-19 14:07 | disposition home or self-care (01) | DRG 304 ==
LOC: ER 11:29 → ER IP 12:56 → CSU 14:48
PROVIDERS: Registered Nurse; Admitting Provider Family Medicine; Emergency Provider Emergency Medicine; PCP Family Medicine; Visit Provider Family Medicine
DX: I16.0 Hypertensive urgency (principal); N18.6 End stage renal disease; I31.39 Other pericardial effusion (noninflammatory); I24.89 Other forms of acute ischemic heart disease; I50.32 Chronic diastolic (congestive) heart failure; E87.5 Hyperkalemia; E10.22 Type 1 diabetes mellitus with diabetic chronic kidney disease; Z79.4 Long term (current) use of insulin; Z91.148 Patient's other noncompliance with medication regimen for other reason; F17.200 Nicotine dependence, unspecified, uncomplicated; I11.0 Hypertensive heart disease with heart failure; Z79.82 Long term (current) use of aspirin
CPT/HCPCS: 36415; 36416; 71045; 80053; 80061; 82962; 83036; 83735; 83880; 84443; 84484; 85025; 90935; 93005; 94660; 96372; 96374; 96375; 99285; 99291; 99292; J0360; J0612; J1171; J1644; J1815; J2270; J2405; J3490; J7799; J9999

== ENCOUNTER 2025-09-25 16:47 | Emergency (ER) | payer MEDICARE, MEDICAID, SELFPAY ==
--- OUTSIDE RECORDS SUMMARY | 2025-09-22 03:00 | XMS_ITS ---
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 Name Role Phone Constantin Landeros Unavailable [phone] REASON FOR VISIT 1 month f/u Medications Medication SIG (Take, Route, Frequency, Duration) Notes Start Date End Date Status hydrALAZINE HCl 100 MG Tablet Oral; Duration: 100 Days Active Carvedilol 25 MG Tablet Oral; Duration: 100 Days Active HumaLOG KwikPen 100 UNIT/ML Solution Pen-injector Subcutaneous; Duration: 25 Days Active ARIPiprazole 5 MG Tablet Oral; Duration: 30 Days Active buPROPion HCl ER (XL) 150 MG Tablet Extended Release 24 Hour Oral; Duration: 30 Days Active Lokelma 10 GM Packet Oral; Duration: 30 Days Active oxyCODONE HCl 5 MG Tablet 1 tablet as needed Orally every 6 hrs Not-Taking Morphine Sulfate 15 MG Tablet 1 tablet as needed Orally every 8 hours; Duration: 30 days As needed Not to exceed 3 per day fill 09/22/2025 due to increase 09/22/2025 10/22/2025 Active traZODone HCl 50 MG Tablet Oral; Duration: 30 Days Active amLODIPine Besylate 10 MG Tablet Oral; Duration: 30 Days Active Social History Tobacco Use: Social History Observation Description Date Details (start date - stop date) Never Smoker NA - NA Social History Tobacco Use: Social Info Question Answer Notes Tobacco Control (Standard) Tobacco use: Nonsmoker Additional Details Category Social Info Options Details Miscellaneous: Sexually active: no Sexual abuse: no Drugs/Alcohol: Do you smoke marijuana? De nies Do you drink alcohol? No Encounters Encounter Location Date Provider Diagnosis [facility] [place] [address] [place] [id number] 09/22/2025 Constantin Landeros Chronic pain syndrom e G89.4 ; Failed back syndrome of lumbar spine M96.1 ; Lumbar radiculopathy M54.16 ; Abnormality of gait and mobility R26.9 ; Long-term use of high-risk medication Z79.899 and History of illicit drug use Z87.898 Assessments Encounter Date Diagnosis (ICD Code) Assessment Notes Treatment Notes Treatment Clinical Notes Section Notes 09/22/2025 Chronic pain syndrome (ICD-10 - G89.4) I had a nice visit with the patient today regarding his chronic pain issues. He had a rough stretch and ended up in the hospital due to potassium levels and chest pain. He was chopping firewood. We discussed treatment options. He may be a candidate for SCS. I don't think he has a ton of interventional options, given his extensive surgical history of fusions. He met with a sales representative printing supplies from [employer] today. We will increase his prescription quantity to 90 tablets a month. His UDS and pill counts have been consistent with his current treatment regimen. We will follow up in a couple of months and proceed accordingly. We will continue a dialogue on SCS moving forward. 09/22/2025 Failed back syndrome of lumbar spine (ICD-10 - M96.1) 09/22/2025 Lumbar radiculopathy (ICD-10 - M54.16) 09/22/2025 Abnormality of gait and mobility (ICD-10 - R26.9) 09/22/2025 Long-term use of high-risk medication (ICD-10 - Z79.899) 09/22/2025 History of illicit drug use (ICD-10 - Z87.898) 09/22/2025 Other I, Leena Nath, am scribing for Dr. Constantin Landeros. I, Dr. Constantin Landeros, personally performed the services described in this documentation, as scribed by Leena Nath, and it is both accurate and complete. Plan Of Treatment Medication Medication Name Sig Start Date Stop Date Notes Morphine Sulfate 15 MG Tablet 1 tablet as needed Orally every 8 hours; Duration: 30 days 09/22/2025 10/22/2025 fill 09/22/2025 due to increase Treatment Notes Assessment Notes Chronic pain syndrome I had a nice visit with the patient today regarding his chronic pain issues. He had a rough stretch and ended up in the hospital due to potassium levels and chest pain. He was chopping firewood. We discussed treatment options. He may be a candidate for SCS. I don't think he has a ton of interventional options, given his extensive surgical history of fusions. He met with a sales representative printing supplies from [employer] today. We will increase his prescription quantity to 90 tablets a month. His UDS and pill counts have been consistent with his current treatment regimen. We will follow up in a couple of months and proceed accordingly. We will continue a dialogue on SCS moving forward. Other I, Leena Nath, am scribing for Dr. Constantin Landeros. I, Dr. Constantin Landeros, personally performed the services described in this documentation, as scribed by Leena Nath, and it is both accurate and complete. Next Appt Details Follow Up: 2 Months, Reason: Provider Name:Constantin Landeros, 10/20/2025 10:00:00 AM, [address] [place], [id number], History and Physical Notes * HPI (History of Present Illness) Category Sub-Category Detail Notes Category Not es Pain Details Pain Location Lower Back Quality Sharp/Stabbing,Pins/ Corinth,Throbbing,Burn/Tingle,Numb Severity of pain at its worst 9 Severity of pain at its best 5 Severity of average pain 7 Severity of pain right now 7 Severity of pain on medication 5 When did you last take your pain medicine 09/21/2025 730Pm morpine Medication Details Do you have a lock b ox or safe place for medication away from minors and/or others? Yes Do you have any leftover pain medication building up at your house? No Do you understand that pain medication c an be addicting and can cause overdose? Yes Do you feel you can REDUCE the amount of medication you take today? No Opioid Assessment Tools Pill Count out Last Urine Drug Screen 08/25/25 Saliva Today's Rapid Urine Drug Screen None [place] Prescription Monitoring Program [place] PDMP, found to be consistent with treatment history, reviewed today Treatment History Test undergone in the past 04/30/25 CT Lumbar Past medication you have taken MSIR 15mg #75 Treatments you have had None Ipma Examination Category Sub-Category Detail Notes Category Not es General Examination Constitutional: Patient appears to be appropriate looking for stated age. Patient is awake, alert and oriented to person, place and time with recent/ remote memory intact. in no acute distress. HEENT: Atraumatic, Normocephalic. Pupils grossly normal on inspection. Respiratory: Visual Inspection: breathing equal bilaterally, trachea midline. Cardiovascular: Cardiac rhythm is regular. Gastrointestinal: Abdomen grossly normal. No obvious firmness, tenderness or masses noted. RUE Dialysis port Lumbar Spine: Inspection of the lumbar spine reveals normal lordosis with no obvious scoliosis or asymmetry noted. Surgical scars consistent with hx. Palpation of the lumbar facets produced back pain. Range of Motion: Greatly reduced ROM in all directions, with pain throughout Noted tightness and tenderness of b/l lumbar paraspinals Joints- Hips/ SI Joint: SI Joint Palpation: negative bilaterally. Neurology - Mental Status: Affect and mood appear grossly normal. Neurology - Coordination: Antalgic gait. Neurology - Straight Leg Raising: Right: 60 degrees and negative. Left: 60 degrees and positive. Neurology - Motor Strength: Left LE strength - Flexors: 4+/5. Right LE strength - Flexors: 4+/5. Left LE strength - Extensors: 4+/5. Right LE strength - Extensors: 4+/5. Left LE Tone: Normal. Right LE Tone: Normal. Neurology - Sensation: paresthesias down b/l LE in mainly L4-5 distributions Neurology - Deep Tendon Reflexes: Left patellar (DTR): 2. Right patellar (DTR): 2. Left Achilles (DTR): 1. Right Achilles (DTR): 1. Progress Notes * ROSEMARY Hunter TDOB:1990 (34 yo M)Acc No.[id number]:09/22/2025 Progress Notes Patient: Hunter Hadley Provider: Sriram Landeros D.O. 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 Quality S harp/Stabbing,Pins/Corinth,Throbbing,Burn/Tingle,Numb. Severity of pain at its worst 9 . Severity of pain at its best 5 . Severity of pain on medication 5 . Severity of average pain 7 . Severity of pain right now 7 . When did you last take your pain medicine 1 11/22/2024 730Pm sweetie. Anjelica edication Details: Do you have a lock box or safe place for medication away from minors and/or others? Y es. Do you have any leftover pain medication building up at your house? N o. Do you understand that pain medication can be addicting and can cause overdose? Y es. Do you feel you can REDUCE the amount of medication you take today? N o. O pioid Assessment Tools: Pill Count o ut. Last Urine Drug Screen 1 10/25/24 Saliva. Today's Rapid Urine Drug Screen N one. [place] Prescription Monitoring Program [place], found to be consistent with treatment history, reviewed today. T reatment History: Test undergone in the past 04/30/25 CT Lumbar. Past medication you have taken MSIR 15mg #75. Treatments you have had N one Ipma. Elizabeth ryder Note: I just got out of the hospital. My potassium was 8.2. I was having really bad chest pains. The majority of my pain is in my lower back, and sometimes it will radiate into my butt cheek or go down my whole entire leg. Patient returns to the clinic for a 1-month follow-up visit. He reports that he was recently discharged from the hospital due to reported lower potassium levels and chest pains. He is prescribed MS IR 15 mg #75 by the clinic. 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 * ROS: G eneral/Constitutional: Fatigue/Tiredness Y es. F ever N o. R ecent weight gain N o. R ecent weight loss N o. R espiratory: Cough N o. W heezing N o. S hortness of breath?Yes. G astrointestinal: Abdominal pain N o. C onstipation Y es. N ausea?No. V omiting Y es. P sychiatric: Anxiety N o. D epression N o. S uicidal thoughts N o. P anic Attacks N o. * Screening: * COMM - Current Opioid Misuse Measure: D ocumented By: Jose Manuel Santillan core: 8 C OMM - Current Opioid Misuse Measure How often have you had trouble with thinking clearly or had memory problems?NeverHow often do people complain that you are not completing necessary tasks? (i.e., doing things that need to be done, such as going to class, work or appointments)NeverHow often have you had to go to someone other than your prescribing physician to get sufficient pain relief from medications? (i.e., another doctor, the Emergency Room, friends, street sources)NeverHow often have you taken your medications differently from how they are prescribed?SometimesHow often have you seriously thought about hurting yourself?NeverHow much of your time was spent thinking about opioid medications (having enough, taking them, dosing schedule, etc.)?NeverHow often have you been in an argument?NeverHow often have you had trouble controlling your anger (e.g., road rage, screaming, etc.)?NeverHow often have you needed to take pain medications belonging to someone else?NeverHow often have you been worried about how you're handling your medications?NeverHow often have others been worried about how you're handling your medications?NeverHow often have you had to make an emergency phone call or show up at the clinic without an appointment?NeverHow often have you gotten angry with people?SeldomHow often have you had to take more of your medication than prescribed?SometimesHow often have you borrowed pain medication from someone else?NeverHow often have you used your pain medicine for symptoms other than for pain (e.g., to help you sleep, improve your mood, or relieve stress)?NeverHow often have you had to visit the Emergency Room?Often * Medical History: High Blood Pressure Diabetes Heart Disease Asthma Depression Arthritis Constipation Kidney infection Medical History Verified * Surgical History: back surgery 2012 back surgery 2013 back surgery 2020 back surgery 2022 back surgery 2023 Surgical History verified. * Family History: F amily History Verified.. heart disease, diabetes, psychiatric problems, stroke, drug addiction, cancer, rheumatoid arthritis. * Social History: T obacco Use: T obacco Control (Standard) T obacco use: N onsmoker D rugs/Alcohol: D o you smoke marijuana?: Denies. Do you drink alcohol?: No. M iscellaneous: S exual abuse: no. Sexually active: no. S ocial History Verified. * Medications: T akingamLODIPine Besylate 10 MG Tablet Oral ARIPiprazole 5 MG Tablet Oral buPROPion HCl ER (XL) 150 MG Tablet Extended Release 24 Hour Oral Carvedilol 25 MG Tablet Oral HumaLOG KwikPen 100 UNIT/ML Solution Pen-injector Subcutaneous hydrALAZINE HCl 100 MG Tablet Oral Lokelma 10 GM Packet Oral Morphine Sulfate 15 MG Tablet 1 tablet as needed Orally every 8 hours As needed Not to exceed 3 per day, stop date 09/26/2025, Notes to Pharmacist: fill 08/27/2025traZODone HCl 50 MG Tablet Oral Taking amLODIPine Besylate 10 MG Tablet Oral Taking ARIPiprazole 5 MG Tablet Oral Taking buPROPion HCl ER (XL) 150 MG Tablet Extended Release 24 Hour Oral Taking Carvedilol 25 MG Tablet Oral Taking HumaLOG KwikPen 100 UNIT/ML Solution Pen-injector Subcutaneous Taking hydrALAZINE HCl 100 MG Tablet Oral Taking Lokelma 10 GM Packet Oral Taking Morphine Sulfate 15 MG Tablet 1 tablet as needed Orally every 8 hours As needed Not to exceed 3 per day, stop date 09/26/2025, Notes to Pharmacist: fill 08/27/2025Taking traZODone HCl 50 MG Tablet Oral Not-TakingoxyCODONE HCl 5 MG Tablet 1 tablet as needed Orally every 6 hrs Medication List reviewed and reconciled with the patientNot-Taking oxyCODONE HCl 5 MG Tablet 1 tablet as needed Orally every 6 hrs Medication List reviewed and reconciled with the patient Objective: * Examination: G eneral Examination: C onstitutional: Patient appears to be appropriate looking for stated age. Patient is awake, alert and oriented to person, place and time with recent/ remote memory intact. in no acute distress. HEENT: Atraumatic, Normocephalic. Pupils grossly normal on inspection. Respiratory: Visual Inspection: breathing equal bilaterally, trachea midline. Cardiovascular: Cardiac rhythm is regular. Gastrointestinal: Abdomen grossly normal. No obvious firmness, tenderness or masses noted. RUE Dialysis port Lumbar Spine: Inspection of the lumbar spine reveals normal lordosis with no obvious scoliosis or asymmetry noted. Surgical scars consistent with hx. Palpation of the lumbar facets produced back pain. Range of Motion: Greatly reduced ROM in all directions, with pain throughout Noted tightness and tenderness of b/l lumbar paraspinals Joints- Hips/ SI Joint: SI Joint Palpation: negative bilaterally. Neurology - Mental Status: Affect and mood appear grossly normal. Neurology - Coordination: Antalgic gait. Neurology - Straight Leg Raising: Right: 60 degrees and negative. Left: 60 degrees and positive. Neurology - Motor Strength: Left LE strength - Flexors: 4+/5. Right LE strength - Flexors: 4+/5. Left LE strength - Extensors: 4+/5. Right LE strength - Extensors: 4+/5. Left LE Tone: Normal. Right LE Tone: Normal. Neurology - Sensation: paresthesias down b/l LE in mainly L4-5 distributions Neurology - Deep Tendon Reflexes: Left patellar (DTR): 2. Right patellar (DTR): 2. Left Achilles (DTR): 1. Right Achilles (DTR): 1. Assessment: * Assessment: 1. C hronic pain syndrome - G89.4 (Primary) 2 . F miquel back syndrome of lumbar spine - M96.1 3 . L umbar radiculopathy - M54.16 4 . A bnormality of gait and mobility - R26.9 5 . L linda-term use of high-risk medication - Z79.899 6 . H istory of illicit drug use - Z87.898 Plan: * Treatment: 2. O thers Notes: ILeena, am scribing for Dr. Constantin Landeros. I, Dr. Constantin Landeros, personally performed the services described in this documentation, as scribed by Leena Nath, and it is both accurate and complete. * Procedure Codes: G 2211 Complex e/m visit add on * Follow Up: 2 Months Billing Information: * Visit Code: 41827 Office Visit, Est Pt., Level 4. * Procedure Codes: G2211 Complex e/m visit add on. Care Plan Details* * Electronic signature of Constantin Landeros DO on 09/25/2025 at 04:52 PM WARM IN WORKER Sign off status: Pending * Provider: Sriram Landeros D.O. Date: 11/23/2024 Generated for Hilda sheffield/Cyndi/eTransmitting on: 11/26/2024 04:52 PM WARM IN WORKER
[2025-09-25] VITALS (8 sets, daily range): BP systolic 176–208; BP diastolic 88–105; PULSE 86–96; RESP 17–25; TEMP 36.7; O2SAT 94–100; BMI 28.6
--- NOTE | 2025-09-25 16:45 | XRR_ITS ---
PROCEDURE INFORMATION: Exam: XR Chest Exam date and time: 09/25/2025 5:05 PM Age: 34 years old Clinical indication: Pain; Chest pressure; Additional info: Cp TECHNIQUE: Imaging protocol: Radiologic exam of the chest. Views: 1 view. COMPARISON: CR (CHEST, ) 09/18/2025 10:45 AM COMPARISON MORE: CT angio chest PE protcl [id number] 06/26/2025 4:50 PM FINDINGS: Lungs: No consolidation. Pleural spaces: No pleural effusion or pneumothorax. Heart/Mediastinum: Worsening cardiomegaly. Bones/joints: Old displaced fracture deformity of the mid right clavicle. XR/XR chest 1V portable [id number] IMPRESSION: Worsening cardiomegaly on this patient with known pericardial effusion, on the above referenced CT scan.
--- NOTE | 2025-09-25 16:47 | ECG_ITS ---
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 Measurements Intervals [place] Rate: 90 P: 52 OK: 153 QRS: 22 QRSD: 102 T: 97 QT: 383 QTc: 469 Interpretive Statements SINUS RHYTHM POSSIBLE LEFT ATRIAL ENLARGEMENT [-0.1mV P-WAVE IN V1/V2] T WAVE INVERSIONS IN THE LATERAL LEADS, POSSIBLE ISCHEMIA Compared to ECG 09/18/2025 12:28:22 No significant changes Electronically Signed On 09-25-2025 19:19:09 DINKEY OPERATOR SLAG by Ronald Tony M.D. [email or web address]
--- OUTSIDE RECORDS SUMMARY | 2025-09-25 16:52 | XMS_ITS | Encounter Summary ---
Author Organization [facility] Address [address] [place] [address] Care Team Providers Care Recapper Name Role Phone Karlo Banks MD Primary Care Provider [phone] Encounter Details Date Type Department Care Team (Latest Contact Info) Description 01/24/2004 Outpatient Historical [facility] [address] [place] [phone] Holland Bell MD [address] [place] [address] ASTHMA UNSPECIFIED (Primary Dx) Social History Tobacco Use Types Packs/Day Years Used Date Smoking Tobacco: Never Assessed Sex and Gender Information Value Date Recorded Sex Assigned at Not on file Legal 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
--- OUTSIDE RECORDS SUMMARY | 2025-09-25 16:52 | XMS_ITS | Clinical Summary ---
Author Organization [facility] Address [address] [facility] [address] [place] [address] Phone Care Team Providers Care Stem Roller Operator Name Role Phone Duke Alarcon MD Primary Care Provider [phone] Allergies Active Allergy Reactions Criticality Noted Date Comments Julio Inhibitors Other (See Comments) High 01/04/2025 Arb-Angiotensin Receptor Antagonist Other (See Comments) High 01/04/2025 Lisinopril Other (See Comments) High 07/14/2024 Angioedema Venom-Honey Bee Rash,Swelling Low 10/14/2014 Medications lancets 4 times per day testing insulin 120 Each 024 Active EPINEPHrine (EPIPEN) 0.3 [...] SALIVA 025 Active naloxone (NARCAN) 4 mg/spray [place], Non-Aerosol EMERGENCY USE ONLY: Administer 1 spray (4 mg) in one nostril one time. May repeat in alternating nostrils every 2-3 min until responsive or EMS arrives. 2 Each 3 Active lidocaine-transp arent dressing (LMX 4 PLUS) 4 % Kit Apply to affected area. Active diphenhydrAMINE (BENADRYL) 25 mg tablet Take 25 mg by mouth. Active spironolactone (ALDACTONE) 50 mg tabletIndication s:ESRD (end stage renal disease) ([facility]),Chroni c combined systolic (congestive) and diastolic (congestive) heart failure ([facility]),Malign ant hypertension Take 1 Tablet (50 mg) by mouth daily. 90 Tablet 025 Active insulin glargine (Lantus Solostar U-100 Insulin) 100 unit/mL pen syringeIndicatio ns:Type 1 diabetes mellitus with chronic kidney disease on chronic dialysis ([facility]) Inject 25 Units by subcutaneous injection 2 times daily. 15 mL 025 Active gabapentin (NEURONTIN) 100 mg capsuleIndicatio ns:History of lumbar spinal fusion,Chronic midline low back pain with bilateral sciatica Take 2 Capsules (200 mg) by mouth 3 times daily. 180 Capsule 025 Active buPROPion HCL (WELLBUTRIN XL) 150 mg Extended Release 24 hour tabletIndication s:Paranoid schizophrenia ([facility]) Take 1 Tablet (150 mg) by mouth daily. 30 Tablet 025 Active atorvastatin (LIPITOR) 80 mg tabletIndication s:Type 1 diabetes mellitus with chronic kidney disease on chronic dialysis ([facility]) Take 1 Tablet (80 mg) by mouth daily. 30 Tablet 025 Active amLODIPine (NORVASC) 10 mg tabletIndication s:Malignant hypertension Take 1 Tablet (10 mg) by mouth daily. 30 Tablet 025 Active Blood Pressure Monitor KitIndications:U ncontrolled hypertension To monitor blood pressure daily [facility] 1 Each 025 Active blood sugar diagnostic Strip Needs 120 strips for 4 times per day 100 Strip 1 Active doxazosin (CARDURA) 4 mg tablet Take 4 mg by mouth daily at bedtime. Active methoxy peg-epoetin beta (MIRCERA INJECTION) 75 mcg. 025 06/23/ 2026 Active Insulin [place], Disposable, (Ultra-Thin II Ins Pen [place]) 29 gauge x 1/2 NeedleIndication s:Type 1 diabetes mellitus with chronic kidney disease on chronic dialysis ([facility]) Use to inject insulin 4 times daily 100 Each 11 Active ARIPiprazole (ABILIFY) 5 mg tabletIndication s:Paranoid schizophrenia ([facility]) Take 1 tablet by mouth once daily 30 Tablet 5 Active cpap medical biller CPAP auto-titrate 5-10 cwp with heated humidifier. Length of need:99 months; mask with headgear every 6 months; mask only every 3 months; cushions per month; Tubing heated 1 every 3 months, water chamber 1 every 6 months, chin strap 1 every 6 months, filters disposable 2 per month, filters reusable 1 per 6 months. 1 Each Active hydrALAZINE (APRESOLINE) 100 mg Tablet tablet Take 1 Tablet (100 mg) by mouth every 8 hours. 300 Tablet 3 Active cloNIDine (NOEQPACUO-GDR-2 ) 0.2 mg/24 hr patchIndications :Malignant hypertension Apply 1 Patch to skin as directed every 7 days. 4 Patch 5 Active bumetanide (BUMEX) 1 mg tabletIndication s:Malignant hypertension,ESR D (end stage renal disease) ([facility]),Chroni c combined systolic (congestive) and diastolic (congestive) heart failure ([facility]) Take 1 Tablet (1 mg) by mouth 2 times daily. 60 Tablet 5 Active morphine (MS IR) 15 mg tablet Take 15 mg by mouth every 8 hours as needed for Pain, Break-Through. Active albuterol sulfate 90 mcg/Actuation inhalerIndicatio ns:Shortness of breath Take 2 Puffs by inhalation every 6 hours as needed for Shortness of Breath. 8.5 Gram 2 Active Blood-Glucose Meter,Continuous (Prezma G7 Risk Developer)Indicat ions:Type 1 diabetes mellitus with other kidney complication ([facility]) Use with sensor to monitor glucose continuously. 1 Each Active DULoxetine 30 mg capsule, delayed rel sprinkle Take by mouth. Active ferrous gluconate 324 mg (37.5 mg iron) Tablet Take 1 Tablet by mouth 2 times daily. Active iron sucrose (VENOFER) 50 mg iron/2.5 mL Solution 50 mg every 7 days. 025 2025 Active HYDROcodone-acet aminophen (NORCO) 5-325 mg [...] chronic kidney disease on chronic dialysis (CMS/HCC) INJECT 6 UNITS SUBCUTANEOUSLY 3 TIMES DAILY BEFORE MEALS PLUS A MEDIUM DOSE SLIDING SCALE. MAX UNITS PER DAY 60 UNITS 15 mL 2 025 Active alcohol Pads, Medicated 4 times per day glucose testing. 100 Each 2 025 Active traZODone (DESYREL) 50 mg tabletIndication s:Paranoid schizophrenia (CMS/HCC) Take 1 Tablet (50 mg) by mouth daily at bedtime. 30 Tablet 5 025 Active carvediloL (COREG) 25 mg tabletIndication s:Chronic combined systolic (congestive) and diastolic (congestive) heart failure (CMS/HCC),Malign ant hypertension Take 1 Tablet (25 mg) by mouth every 12 hours. 200 Tablet 1 025 Active Blood-Glucose Sensor (Dexcom G7 Sensor) DeviceIndication s:Type 1 diabetes mellitus with other kidney complication (CMS/HCC) To continuously monitor blood sugar. Change sensor every 10 days. 3 Each Active amitriptyline (ELAVIL) 50 mg tabletIndication s:Paranoid schizophrenia (CMS/HCC) Take 1 Tablet (50 mg) by mouth daily at bedtime. 30 Tablet 2 Active isosorbide mononitrate (IMDUR) 30 mg Extended Release 24 hour tabletIndication s:Malignant hypertension Take 1 Tablet (30 mg) by mouth daily. 30 Tablet 2 Active alcohol Pads, Medicated 4 times per day glucose testing. 120 Each 024 2024 Discontinued(R eorder) traZODone (DESYREL) 50 mg tabletIndication s:Paranoid schizophrenia (CMS/HCC) Take 1 Tablet (50 mg) by mouth daily at bedtime. 30 Tablet 5 025 2024 Discontinued(R eorder) carvediloL (COREG) 25 mg tabletIndication s:Chronic combined systolic (congestive) and diastolic (congestive) heart failure (CMS/HCC),Malign ant hypertension Take 1 Tablet (25 mg) by mouth every 12 hours. 60 Tablet 5 025 2024 Discontinued(R eorder) amitriptyline (ELAVIL) 50 mg tabletIndication s:Paranoid schizophrenia (CMS/HCC) Take 1 Tablet (50 mg) by mouth daily at bedtime. 30 Tablet 5 025 2024 Discontinued(R eorder) Blood-Glucose Sensor (Dexcom G7 Sensor) DeviceIndication s:Type 1 diabetes mellitus with other kidney complication (CMS/HCC) To continuously monitor blood sugar. Change sensor every 10 days. 3 Each 025 2024 Discontinued(R eorder) isosorbide mononitrate (IMDUR) 30 mg Extended Release 24 hour tabletIndication s:Malignant hypertension Take 1 Tablet (30 mg) by mouth daily. 30 Tablet 5 025 2024 Discontinued(R eorder) orphenadrine (NORFLEX) 100 mg Extended Release tablet Take 1 Tablet (100 mg) by mouth 2 times daily as needed for Spasm. Do not take within 2 hours of taking morphine to avoid sedation. 10 Tablet 025 2024 morphine (MS IR) 15 mg tabletIndication s:History of lumbar spinal fusion Take 1 Tablet (15 mg) by mouth every 8 hours as needed for Pain, Break-Through. 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 ([facility]) 2 Drop Both Eyes ONE TIME ONLY [...] Encounters Date Type Department Care Team Description 09/23/[address] [phone] Duke Alarcon MD Paranoid schizophrenia (CMS/HCC); Malignant hypertension 09/21/2025 External Device Data ST[facility] ABSTRACTION Provider, Abstract 09/21/[address] [phone] Duke Alarcon MD 09/21/2025 Orders Only [facility] [address] [place] [phone] Provider, Abstract 09/21/[address] [phone] Duke Alarcon MD Medication Problem 09/21/[address] [phone] Duke Alarcon MD Paranoid schizophrenia ([facility]); Chronic combined systolic (congestive) and diastolic (congestive) heart failure ([facility]); Malignant hypertension; Type 1 diabetes mellitus with other kidney complication ([facility]) 09/20/2025 Orders Only [facility] [address] [place] [address] Provider, Abstract 09/16/[address] [phone] Duke Alarcon MD Type 1 diabetes mellitus with chronic kidney disease on chronic dialysis ([facility]) 09/14/2025 External Device Data STL ABSTRACTION Provider, Abstract 09/06/2025 Results Follow-Up [address] [phone] Duke Alarcon MD MRI ANKLE WO CONTRAST LEFT 08/26/[address] [phone] Duke Alarcon MD Type 1 diabetes mellitus with other kidney complication ([facility]) 08/26/[address] [phone] Roberta Kennedy NP Shortness of breath 08/26/[address] [phone] Duke Alarcon MD Type 1 diabetes mellitus with chronic kidney disease on chronic dialysis ([facility]) 08/25/2025 5:43 PM POWER SHOVEL ENGINEER - 08/25/2025 6:55 PM POWER SHOVEL ENGINEER Emergency [facility] Emergency Medicine [address] [phone] Kelsea Dailey MD Spasm of thoracic back muscle (Primary Dx); History of lumbar spinal fusion Discharge Disposition: Home or Self Care 08/24/[address] [facility] [address] [phone] Duke Alarcon MD Provider Call 08/20/2025 9:10 AM POWER SHOVEL ENGINEER - 08/20/2025 10:25 AM POWER SHOVEL ENGINEER Emergency [facility] Emergency Medicine [address] [phone] Scott Holguin MD Anemia in ESRD (end-stage renal disease) ([facility]) (Primary Dx) Discharge Disposition: Home or Self Care 08/18/[address] [facility] [address] [phone] Duke Alarcon MD Needs Appointment 08/17/2025 External Device Data STL ABSTRACTION Provider, Abstract 08/17/[address] [phone] Duke Alarcon MD Patient Communication (/) 08/17/[address] [facility] [address] [place] [address] Duke Alarcon MD Hospital discharge follow-up (Primary Dx) 08/16/2025 10:37 AM POWER SHOVEL ENGINEER - 08/16/2025 11:31 AM POWER SHOVEL ENGINEER Surgery [facility]iac [facility] [address] [place] [phone] Shimon Patino MD Left heart cath 08/15/2025 Orders Only [facility] General Laboratory Services [facility] [address] [place] [phone] Indu Robin Encounter for preadmission testing 08/13/2025 4:55 PM CDT - 08/16/2025 7:23 PM POWER SHOVEL ENGINEER Hospital Encounter [facility] 4A Cardiac [address] [place] [phone] Iraida Roberto MD Sundaram, Vignesh, MD Suthar, Chandan Mal, MD Atypical chest pain Discharge Disposition: Home or Self Care 08/13/2025 12:06 PM CDT - 08/13/2025 2:52 PM CDT Emergency [facility] [address] [place] [phone] Scott Holguin MD NSTEMI (non-ST elevated myocardial infarction) ([facility]) (Primary Dx); Hyperkalemia; Type 1 diabetes mellitus with hyperglycemia ([facility]) Discharge Disposition: [facility] 08/13/2025 6:15 AM CDT - 08/13/2025 11:59 PM CDT Hospital Encounter [facility] Emergency Medical Services [place] [address] [place] [phone] Ambulance, [facility] Discharge Disposition: [facility] 08/13/2025 Travel 08/11/2025 1:16 PM CDT - 08/11/2025 11:59 PM CDT Hospital Encounter [facility] [address] [place] [phone] Duke Alarcon MD Discharge Disposition: Home or Self Care 08/03/[address] [facility] [address] [phone] Duke Alarcon MD Type 1 diabetes mellitus with chronic kidney disease on chronic dialysis ([facility]) 07/22/[address] [facility] [address] [phone] Duke Alarcon MD Osteoarthritis of spine with radiculopathy, lumbar region 07/20/2025 External Device Data STL ABSTRACTION Provider, Abstract 07/20/2025 External Device Data STL ABSTRACTION Provider, Abstract 07/19/[address] 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 (CMS/HCC) (Primary Dx) 07/13/[address] [phone] Duke Alarcon MD Osteoarthritis of spine with radiculopathy, lumbar region 07/12/[address] [phone] Duke Alarcon MD Osteoarthritis of spine with radiculopathy, lumbar region 07/07/2025 11:10 AM CDT Office Visit [facility] [place] [address] [phone] Kim Servin MD 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 (CMS/HCC) (Primary Dx); Combined forms of age-related cataract of both eyes 07/05/2025 2:20 PM CDT Office Visit [address] [phone] Duke Alarcon MD Type 1 diabetes mellitus with chronic kidney disease on chronic dialysis (CMS/HCC) (Primary Dx); Malignant hypertension; ESRD (end stage renal disease) (CMS/HCC); Chronic combined systolic (congestive) and diastolic (congestive) heart failure (CMS/HCC); Osteoarthritis of spine with radiculopathy, lumbar region 07/05/[address] [phone] Provider, Abstract 07/03/2025 Patient Self-Triage [facility] [address] [place] [address] 07/01/2025 Telephone [facility] [place] [address] [phone] Kim Servin MD Information 06/30/2025 Orders Only [address] [phone] Duke Alarcon MD 06/29/[address] [phone] Duke Alarcon MD Osteoarthritis of spine with radiculopathy, lumbar region 06/29/[address] [phone] Duke Alarcon MD Information; Patient Communication 06/28/2025 Orders Only [facility] [address] [place] [phone] Provider, Abstract 06/28/2025 Results Follow-Up [address] [phone] Duke Alarcon MD XR ANKLE 3+ VW LEFT, HOLTER MONITOR from Last 3 Months Immunizations Immunization Administration Dates Next Due (PREVNAR 20)(6 WKS UP) PNEUM OCOCCAL CONJUGATE VACCINE 20-VALENT (PCV20), POLYSACCHARIDE ATE204 CONJUGATE, ADJUVANT 0.5 ML (PF) IM 06/30/2025 [...] worry about transportation for future doctor visits, bean picker medication, etc.? No 2024 Housing Stability [...] on file Legal Sex Male 3:23 AM POWER SHOVEL ENGINEER Gender Identity Not on file Sexual Orientation Not on file Last Filed Vital Signs Vital Sign Reading Time Taken Comments Blood Pressure 172/90 08/25/2025 6:45 PM POWER SHOVEL ENGINEER Pulse 96 08/25/2025 6:45 PM POWER SHOVEL ENGINEER Temperature 37.6 C (99.7 F) 08/25/2025 4:28 PM POWER SHOVEL ENGINEER Respiratory Rate 16 08/25/2025 6:45 PM POWER SHOVEL ENGINEER Oxygen Saturation 99% 08/25/2025 6:45 PM POWER SHOVEL ENGINEER Inhaled Oxygen Concentration - - Weight 96 kg (211 lb 9.6 oz) 08/25/2025 4:28 PM POWER SHOVEL ENGINEER Height 182.9 cm (6') 08/25/2025 4:28 PM POWER SHOVEL ENGINEER Body Mass Index 28.7 08/25/2025 4:28 PM POWER SHOVEL ENGINEER Plan of Treatment Upcoming Encounters Date Type Department Care Team (Late st Contact Info) Description 10/20/2025 3:20 PM POWER SHOVEL ENGINEER Office [facility] [address] [phone] Duke Alarcon MD [address] [phone] Health Maintenance Due Date Last Done Comments DTAP/TDAP/TD VACCINES (1 - Tdap) 2009 Traditional Medicare (ACO) A nnual Wellness Visit 2009 HEPATITIS B VACCINES (1 of 3 - Risk Dialysis 4-dose series) 2010 DIABETES MICROALBUMIN ANNUAL SCREEN 07/11/2016 07/11/2015 [place] ([place]) Preventative Visit/Annual Wellness Visit 10/14/2024 DIABETES HBA1C Q 6 MONTHS 03/20/20262024, 08/14/2025, 03/18/2025, Additional history exists DIABETES ANNUAL FOOT EXAM 05/03/2026 05/03/2025, DIABETES ANNUAL RETINAL EXAM 07/14/202610/2024, 07/07/2025, 07/07/2025, Additional history exists DIABETES: A1C (Auto Order) 09/19/202609/19, 08/14/2025, 03/18/2025, Additional history exists LDL CHOLESTEROL ANNUAL 09/19/2026 , 08/14/2025, 07/14/2024, Additional history exists Abdominal Aortic Aneurysm (A AA) Screening Completed 08/07/2024, 12/28/2023 INFLUENZA VACCINE Completed 06/30/2025, , 07/14/2016, Additional history exists HPV VACCINES (No Doses Required) Completed Goals Goal Patient Goal Type Associated Problems Recent Progress Patient-Stated? Author Heart Failure Goal Care Plan Heart Failure Problem No Faye Denny Medical Devices Implanted Type Area Dog Show Judge Device Identifier Shelf Expiration Date Model / Serial / Lot Closure Perclose Prostyle Sut Mediate 14107-17 - [id number] Implanted:Qty: 1 on 08/16/2025 by Shimon Patino MD at [facility] Closure Device Right: Groin KENNEDY- VASC DEVICE [id number] 06/13/2027 [id number] / / [id number] Explanted Type Area Dog Show Judge Device Identifier Shelf Expiration Date Model / Serial / Lot Cath Dialysis Glidepath 14.5fr 23cm [facility] [id number] - [id number] Implanted:Qty: 1 on 12/04/2024 by Constantin Crum MD at [facility] Explanted:Qty: 1 on 04/23/2025 by Reji Sethi S Catheter Right: Chest BARD TRICE VASC [id number] 03/13/2026 [id number] / / [id number] Procedures Procedure Name Priority Date/Time Associated Diagnosis Comments COMPREHENSIVE METABOLIC PANEL Routine 09/19/2025 2:09 PM POWER SHOVEL ENGINEER LIPID PANEL Routine 09/19/2025 HEMOGLOBIN A1C Routine 09/19/2025 COMPREHENSIVE METABOLIC PANEL Routine 09/18/2025 4:11 PM POWER SHOVEL ENGINEER TYPE AND SCREEN Stat 08/20/2025 9:27 AM POWER SHOVEL ENGINEER PROTIME-INR Stat 08/20/2025 9:27 AM POWER SHOVEL ENGINEER CBC WITH DIFFERENTIAL Stat 08/20/2025 9:27 AM POWER SHOVEL ENGINEER TELEMETRY REPORT 08/17/2025 2:16 AM POWER SHOVEL ENGINEER POC GLUCOSE Routine 08/16/2025 4:16 PM POWER SHOVEL ENGINEER ECHO COMPLETE Routine 08/16/2025 2:30 PM POWER SHOVEL ENGINEER POC GLUCOSE Routine 08/16/2025 11:10 AM POWER SHOVEL ENGINEER LEFT HEART CATH Routine 08/16/2025 10:43 AM POWER SHOVEL ENGINEER NSTEMI (non-ST elevated myocardial infarction) (CMS/HCC) POC GLUCOSE Routine 08/16/2025 9:53 AM POWER SHOVEL ENGINEER POC GLUCOSE Routine 08/16/2025 9:06 AM POWER SHOVEL ENGINEER UNFRACTIONATED HEPARIN ACTIVITY Timed Study 08/16/2025 8:36 AM POWER SHOVEL ENGINEER UNFRACTIONATED HEPARIN ACTIVITY Timed Study 08/16/2025 12:54 AM POWER SHOVEL ENGINEER POC GLUCOSE Routine 08/15/2025 8:23 PM POWER SHOVEL ENGINEER UNFRACTIONATED HEPARIN ACTIVITY Timed Study 08/15/2025 4:34 PM POWER SHOVEL ENGINEER POC GLUCOSE Routine 08/15/2025 4:33 PM POWER SHOVEL ENGINEER POC GLUCOSE Routine 08/15/2025 11:25 AM POWER SHOVEL ENGINEER UNFRACTIONATED HEPARIN ACTIVITY Timed Study 08/15/2025 10:04 AM POWER SHOVEL ENGINEER POC GLUCOSE Routine 08/15/2025 7:03 AM POWER SHOVEL ENGINEER TYPE AND SCREEN Routine 08/15/2025 1:11 AM [...] Health Maintenance Results * COMPREHENSIVE METABOLIC PANEL (09/19/2025 2:09 PM POWER SHOVEL ENGINEER) Only the most recent of5 resultswithin the time period is included. Blood us Abstract Provider CHEMISTRY ORDERABLES Final Res ult * HEMOGLOBIN A1C (09/19/2025) Only the most recent of2 resultswithin the time period is included. ABSTRACTED HGB A1C 5.4 % Blood 09/19/2025 us Abstract Provider CHEMISTRY ORDERABLES Final Res ult * LIPID PANEL (09/19/2025) Only the most recent of2 resultswithin the time period is included. ABSTRACTED CHOLESTEROL 161 ABSTRACTED TRIGLYCERIDE 109 ABSTRACTED HDL 37 ABSTRACTED LDL CALCULATED 102 Blood 09/19/2025 us Abstract Provider CHEMISTRY ORDERABLES Final Res ult * (ABNORMAL) CBC WITH DIFFERENTIAL (08/20/2025 9:27 AM POWER SHOVEL ENGINEER) Only the most recent of4 resultswithin the time period is included. WBC 9.6(H) 4.2 - 9.1 K/uL 08/20/2025 9:41 AM [facility] RBC 2.78(L) 4.63 - 6.08 M/uL 08/20/2025 9:41 AM [facility] HEMOGLOBIN 8.6(L) 13.7 - 17.5 g/dL 08/20/2025 9:41 AM [facility] HEMATOCRIT 25.8(L) 40.1 - 51.0 % 08/20/2025 9:41 AM [facility] MCV 92.8(H) 79.0 - 92.2 fL 08/20/2025 9:41 AM [facility] MCH 30.9 25.7 - 32.2 pg 08/20/2025 9:41 AM [facility] MCHC 33.3 32.3 - 36.5 g/dL 08/20/2025 9:41 AM [facility] RDW 15.5(H) 11.0 - 14.5 % 08/20/2025 9:41 AM [facility] RDW-STDEV 51.8 36.9 - 56.9 fL 08/20/2025 9:41 AM [facility] PLATELETS 295 130 - 400 K/uL 08/20/2025 9:41 AM [facility] MPV 10.2 10.0 - 14.8 fL 08/20/2025 9:41 AM [facility] NEUTROPHILS 76(H) 34 - 68 % 08/20/2025 9:41 AM [facility] LYMPHOCYTES 13(L) 22 - 53 % 08/20/2025 9:41 AM [facility] MONOCYTES 7 5 - 12 % 08/20/2025 9:41 AM [facility] EOSINOPHILS 2 1 - 7 % 08/20/2025 9:41 AM [facility] BASOPHILS 1 0 - 1 % 08/20/2025 9:41 AM [facility] IMMATURE GRANULOCYTES 1 % 08/20/2025 9:41 AM [facility] NEUTROPHIL ABSOLUTE 7.24(H) 1.78 - 5.38 K/uL 08/20/2025 9:41 AM [facility] LYMPHOCYTE ABSOLUTE 1.27 1.20 - 3.40 K/uL 08/20/2025 9:41 AM [facility] MONOCYTE ABSOLUTE 0.70 0.30 - 0.82 K/uL 08/20/2025 9:41 AM [facility] EOSINOPHIL ABSOLUTE 0.18 0.04 - 0.54 K/uL 08/20/2025 9:41 AM [facility] BASOPHILS ABSOLUTE 0.10(H) 0.01 - 0.08 K/uL 08/20/2025 9:41 AM [facility] IMMATURE GRANULOCYTES ABSOLUTE 0.07 K/uL 08/20/2025 9:41 AM [facility] Blood Venipuncture / Unknown 08/20/2025 9:27 AM POWER SHOVEL ENGINEER 08/20/2025 9:35 AM [facility] us Scott Holguin MD HEMATOLOGY ORDERABLES Final Result [facility] CLIA # [id number] [address] [place] [id number] * PROTIME-INR (08/20/2025 9:27 AM POWER SHOVEL ENGINEER) PROTIME 13.6 12.1 - 14.3 Seconds 08/20/2025 9:49 AM [facility] INR 1.0 0.9 - 1.1 08/20/2025 9:49 AM POWER SHOVEL ENGINEER [facility] Blood Venipuncture / Unknown 08/20/2025 9:27 AM POWER SHOVEL ENGINEER 08/20/2025 9:35 AM POWER SHOVEL ENGINEER Scott Holguin MD HEMATOLOGY ORDERABLES Final Result Performing Organization Address City/[facility]/ZIP Co de Phone Number [place] HOSPITALIA # [id number] [address] [place] [address] * TYPE AND SCREEN (08/20/2025 9:27 AM POWER SHOVEL ENGINEER) Only the most recent of2 resultswithin the time period is included. ABO/RH TYPE O POS 08/20/2025 10:13 AM POWER SHOVEL ENGINEER [facility] ANTIBODY SCREEN Negative 08/20/2025 10:13 AM POWER SHOVEL ENGINEER [facility] Blood Venipuncture / Unknown 08/20/2025 9:27 AM POWER SHOVEL ENGINEER 08/20/2025 9:35 AM POWER SHOVEL ENGINEER Scott Holguin MD BLOOD BANK ORDERABLES Final Result Performing Organization Address City/[facility] Co de Phone Number [facility] CLIA # [id number] [address] [place] [address] * TELEMETRY REPORT (08/17/2025 2:16 AM POWER SHOVEL ENGINEER) Provider Scanning ECG ORDERABLES Final Result * (ABNORMAL) POC GLUCOSE (08/16/2025 4:16 PM POWER SHOVEL ENGINEER) Only the most recent of15 resultswithin the time period is included. GLUCOSE POC 212(H) 74 - 99 mg/dL 08/16/2025 4:16 PM POWER SHOVEL ENGINEER [facility] LABORATORY [facility] SPECIMEN SOURCE, GLUCOSE POC Capillary 08/16/2025 4:16 PM POWER SHOVEL ENGINEER [facility] Blood, whole 08/16/2025 4:16 PM POWER SHOVEL ENGINEER 08/16/2025 5:05 PM POWER SHOVEL ENGINEER us Diaz Scott MD POINT OF CARE TESTING Oliva ulloa Result [id number] [address] [address] * ECHO COMPLETE - CONTRAST AND STRAIN IF INDICATED (08/16/2025 2:30 PM POWER SHOVEL ENGINEER) EJECTION FRACTION 49 INTERFACE SYSTEM 08/16/2025 2:13 PM POWER SHOVEL ENGINEER Narrative INTERFACE SYSTEM - 08/16/2025 4:08 PM POWER SHOVEL ENGINEER [facility] Cardiovascular Services Echocardiography Laboratory [address] [place] [address] Transthoracic Echocardiography Patient: Vida San Study ID: ECHO URI Colleen Holland Gender: M : 1990 Age: 34 Room: [facility] Study 08/16/2025 Pt Inpatient Date: Status: Study 02:13:49 PM [facility] #: [id number] Time: Ordering:Shimon Patino Lens Coater: Zak Asif Indications and History: Post [place]. Risk factors: Hypertension. Diabetes mellitus. Dyslipidemia. Summary [...] cm AP dim index, ES 2.4 cm/m^2 VVIEK/bsa minor ax, A4C 4.1 cm/m^2 SI dim, [...] (H) ronny values outside specified reference range. [facility] Echo Labs are accredited with the Intersocietal Accreditation Commission - Echocardiography. Prepared and Electronically Authenticated Matt Hinojosa Confirmed 08/16/2025 16:08 Procedure Note Matt Hinojosa MD - 08/16/2025 [facility] Cardiovascular Services Echocardiography Laboratory [address] [place] [address] Transthoracic Echocardiography Patient: Vida San Study ID: WINIFRED Lino Gender: M : 1990 Age: 34 Room: [facility] Study 08/16/2025 Pt Inpatient Date: Status: Study 02:13:49 PM [facility] #: [id number] Time: Ordering:Shimon Patino Lens Coater: Zak Asif Indications and History: Post [place]. Risk factors: Hypertension.Diabetes mellitus. Dyslipidemia. Summary and [...] (H) ronny values outside specified reference range. [facility] Echo Labs are accredited with theIntersocietal Accreditation Commission - Echocardiography. Prepared and Electronically Authenticated Matt Hinojosa Confirmed 08/16/2025 16:08 us Shimon Patino MD US ORDERABLES Final Result INTERFACE SYSTEM Refer to clinic/hospital department * LEFT HEART CATH (08/16/2025 10:43 AM POWER SHOVEL ENGINEER) 08/16/2025 10:3 0 AM POWER SHOVEL ENGINEER Addenda Addendum by Shimon Patino MD on 08/17/2025 12:12 PM POWER SHOVEL ENGINEER Prox LAD lesion is 15% stenosed. LPDA lesion is 25% stenosed. 1. Mild nonobstructive coronary artery disease described above. Nonischemic cardiomyopathy. Left dominant circulation. 2. Aggressive risk factor modification and lifestyle changes. 3. Recommend maximally tolerated guideline directed medical therapy. 4. Access site care per protocol. 5. Cardiac rehab per the referring provider. Portions of this document were created through the use of [email or web address] security architect software. Effort has been made to ensure accuracy of the mitochondrial disorders counselor. Any obvious errors or omissions should be [...] was used for local anesthesia. A 6 Serbian sheath was placed in the access site [...] CATH ORDERABLES Edited Res ult - Final [facility] CLIA [id number] [address] [facility] [address] [place] [phone], * UNFRACTIONATED HEPARIN MONITORING (08/16/2025 8:36 AM POWER SHOVEL ENGINEER) Only the most recent of6 resultswithin the time period is included. ANTI-XA UNFRAC HEP 0.22 See Interpretation IU/mL 08/16/2025 9:03 AM POWER SHOVEL ENGINEER [facility] [employer] [facility] Blood Venipuncture / Unknown 08/16/2025 8:36 AM POWER SHOVEL ENGINEER 08/16/2025 8:39 AM POWER SHOVEL ENGINEER Narrative [facility] [employer] [facility] - 08/16/2025 9:03 AM POWER SHOVEL ENGINEER Therapeutic Range: PT/DVT Heparin Protocol 0.3 - 0.7 IU/ml Cardiac Heparin Protocol 0.3 - 0.6 IU/ml The reference range for this test is specific to the anticoagulant and is not appropriate for monitoring patients on a DOAC protocol. Diaz Scott MD HEMATOLOGY ORDERABLES Oliva l Result Performing Organization Address [facility] Co de Phone Number [facility] CLIA # [id number] [address] [facility] [place] [address] * PHOSPHORUS (08/15/2025 1:11 AM CDT) Only the most recent of2 resultswithin the time period is included. PHOSPHORUS 4.0 2.5 - 4.5 mg/dL 08/15/2025 2:[address] [facility] [employer] [facility] Blood 08/15/2025 1:11 AM CDT 08/15/2025 1:32 AM CDT Ben Porter MD CHEMISTRY ORDERABLES Final R esult [facility] CLIA # [id number] [facility] [address] [place] [address] * (ABNORMAL) BASIC METABOLIC PANEL (08/15/2025 1:11 AM CDT) Only the most recent of3 resultswithin the time period is included. SODIUM 135(L) 136 - 145 mmol/L 08/15/2025 2:11 AM [facility] POTASSIUM 4.5 3.5 - 5.1 mmol/L 08/15/2025 2:11 AM [facility] CHLORIDE 98 98 - 107 mmol/L 08/15/2025 2:11 AM [facility] CO2 29 22 - 29 mmol/L 08/15/2025 2:11 AM [facility] CALCIUM 7.6(L) 8.6 - 10.0 mg/dL 08/15/2025 2:11 AM [facility] BUN 21(H) 6 - 20 mg/dL 08/15/2025 2:11 AM [facility] CREATININE 4.37(H) 0.67 - 1.17 mg/dL 08/15/2025 2:11 AM [facility] GLUCOSE 164(H) 74 - 99 mg/dL 08/15/2025 2:11 AM [facility] GFR 17(L) >=60 mL/min/1. 73 sq meter 08/15/2025 2:11 AM [facility] Comment:eGFR calculated with 2020 CKD-EPI equation. Vegetarian diet, extremely high or low muscle mass, and may affect results. Cystatin C with Glomerular Filtration Rate is a suitable alternative for these patients. ANION GAP 8(L) 9 - 20 mmol/L 08/15/2025 2:11 AM [facility] Blood 08/15/2025 1:11 AM CDT 08/15/2025 1:32 AM CDT Ben Porter MD CHEMISTRY ORDERABLES Final R esult Performing Organization Address [facility]/ZIP Co de Phone Number [facility] CLIA # [id number] [facility] [address] * PTT (08/14/2025 5:57 PM CDT) Only the most recent of2 resultswithin the time period is included. Pathologist [facility] PTT 32.4 24.8 - 37.2 seconds 08/14/2025 6:34 PM CDT [facility] Blood Venipuncture / Unknown 08/14/2025 5:57 PM CDT 08/14/2025 6:13 PM CDT Narrative [facility] - 08/14/2025 6:34 PM CDT Therapeutic Range: Hi-level PE/DVT heparin protocol 80.1 - 95.0 sec Lo-level PE/DVT heparin protocol 70.1 - 85.0 sec Cardiac Heparin Protocol 70.1 - 100.0 sec Annel Leonardo NP HEMATOLOGY ORDERABLES Final Resu lt Performing Organization Address [facility]/ZIP Co de Phone Number [facility] CLIA # [id number] [address] [id number] * (ABNORMAL) CBC WITHOUT DIFFERENTIAL (08/14/2025 5:57 PM CDT) [facility] WBC 5.2 4.5 - 11.0 K/uL 08/14/2025 6:19 PM CDT [facility] RBC 3.09(L) 4.60 - 6.20 M/uL 08/14/2025 6:19 PM CDT [facility] HEMOGLOBIN 9.2(L) 14.0 - 18.0 g/dL 08/14/2025 6:19 PM CDT [facility] HEMATOCRIT 28.6(L) 41.0 - 53.0 % 08/14/2025 6:19 PM CDT [facility] MCV 92.6 84.0 - 103.0 fL 08/14/2025 6:19 PM CDT [facility] MCH 29.8 27.0 - 34.0 pg 08/14/2025 6:19 PM CDT [facility] MCHC 32.2 30.0 - 35.0 g/dL 08/14/2025 6:19 PM CDT [facility] PLATELETS 278 140 - 440 K/uL 08/14/2025 6:19 PM CDT [facility] MPV 10.2 8.9 - 12.8 fL 08/14/2025 6:19 PM CDT [facility] RDW 14.1 11.0 - 14.5 % 08/14/2025 6:19 PM CDT [facility] RDW-STDEV 47.0 37.0 - 54.0 fL 08/14/2025 6:19 PM CDT [facility] Blood Venipuncture / Unknown 08/14/2025 5:57 PM CDT 08/14/2025 6:13 PM CDT us Shimon Patino MD HEMATOLOGY ORDERABLES Final R esult Performing Organization Address City/[facility]/ZIP Co de Phone Number [facility] CLIA # [id number] [address] [place] [address] * BLOOD CULTURE (08/14/2025 2:24 AM CDT) Only the most recent of2 resultswithin the time period is included. BLOOD CULTURE No growth 08/19/2025 4:35 AM POWER SHOVEL ENGINEER [facility] Blood (Peripheral) Venipuncture / Unknown 08/14/2025 2:24 AM CDT 08/14/2025 5:20 AM CDT us Ben Porter MD MICROBIOLOGY - GENERAL ORDER OBEY Final Result [facility] CLIA # [id number] [address] [address] [place] [address] * (ABNORMAL) TROPONIN (08/13/2025 5:17 PM CDT) TROPONIN T, 5TH GEN 319(HH) <=15 ng/L 08/13/2025 5:59 PM CDT [facility] Blood Venipuncture / Unknown 08/13/2025 5:17 PM CDT 08/13/2025 5:24 PM CDT Narrative [facility] - 08/13/2025 5:59 PM CDT Troponin elevated. us Iraida Roberto MD CHEMISTRY ORDERABLES Final Result Performing Organization Address [facility] Co de Phone Number [facility] CLIA # [id number] [address] [place] [address] * EKG 12-LEAD (08/13/2025 5:13 PM CDT) Only the most recent of2 resultswithin the time period is included. 08/13/2025 5:13 PM CDT Narrative INTERFACE SYSTEM - 08/15/2025 12:08 PM POWER SHOVEL ENGINEER [address] [address] Test Date: 2025-08-13 Pat Name: VIDA SAN Department: 11 Room: 17 17 Gender: Male Relief Worker: [email or web address] : 1990 Requested By: Order Number: [id number] Reading MD: Amina Figueroa Measurements Intervals [place] Rate: 86 P: 52 NH: 158 QRS: 62 QRSD: 88 T: 73 QT: 394 QTc: 471 Interpretive Statements Normal sinus rhythm Possible Left atrial enlargement Borderline ECG Electronically Signed On 08-15-2025 12:08:21 POWER SHOVEL ENGINEER by Amina Figueroa Procedure Note Provider, Historical - 08/15/2025 [facility] [address] [place] [address] Test Date: 2025-08-13 Pat Name: VIDA SAN Department: 11 Room: 17 17 Gender: Male Relief Worker: [email or web address] : 1990 Requested By: Order Number: [id number] Reading MD: Amina Figueroa Measurements Intervals [place] Rate: 86 P: 52 NH: 158 QRS: 62 QRSD: 88 T: 73 QT: 394 QTc: 471 Interpretive Statements Normal sinus rhythm Possible Left atrial enlargement Borderline ECG Electronically Signed On 08-15-2025 12:08:21 POWER SHOVEL ENGINEER by Amina Figueroa us Protocol [facility] MD ECG ORDERABLES Final Result INTERFACE [...] pulmonary process, similar to the prior examination. us Scott Holguin MD DIAGNOSTIC IMAGING OR DERABLES Final Result * (ABNORMAL) TROPONIN BASELINE, 5TH GEN (08/13/2025 12:23 PM CDT) TROPONIN T, BASELINE 5TH GEN 343(HH) <=15 ng/L 08/13/2025 1:07 PM CDT [facility] Comment:Hemolysis can falsel y decrease Troponin quantitation. Blood BLOOD SPECIMEN / Unknown Venipuncture / Unknown 08/13/2025 12:23 PM CDT 08/13/2025 12:34 PM CDT Narrative [facility] - 08/13/2025 1:07 PM CDT Troponin elevated. us Scott Holguin MD CHEMISTRY ORDERABLES Final Result [facility] CLIA # [id number] [address] [place] [address] * TSH (08/13/2025 12:23 PM CDT) Pathologist [facility] TSH 3.78 0.27 - 4.20 uIU/mL 08/13/2025 1:08 PM CDT [facility] Blood BLOOD SPECIMEN / Unknown Venipuncture / Unknown 08/13/2025 12:23 PM CDT 08/13/2025 12:34 PM CDT us Scott Holguin MD CHEMISTRY ORDERABLES Final Result Performing Organization Address City/[facility]/ZIP Co de Phone Number [facility] CLIA # [id number] [address] [place] [address] * (ABNORMAL) BRAIN NATRIURETIC PEPTIDE, BNP OR PROBNP (08/13/2025 12:23 PM CDT) Pathologist [facility] PROBNP, N TERMINAL >70,000(H ) 0 - 125 pg/mL 08/13/2025 1:39 PM CDT [facility] Comment: INTERPRETIVE COMMENT based on [...] CHEMISTRY ORDERABLES Final Result Performing Organization Address City/[facility]/ZIP Co de Phone Number [facility] CLIA # [id number] [address] [place] [address] * MAGNESIUM LEVEL (08/13/2025 12:23 PM CDT) [facility] MAGNESIUM 2.5 1.6 - 2.6 mg/dL 08/13/2025 1:08 PM CDT [facility] Blood BLOOD SPECIMEN / Unknown Venipuncture / Unknown 08/13/2025 12:23 PM CDT 08/13/2025 12:34 PM CDT Scott Holguin MD CHEMISTRY ORDERABLES Final Result Performing Organization Address [facility]/ZIP Co de Phone Number [facility] CLIA # [id number] [address] [place] [address] * LIPASE (08/13/2025 12:23 PM CDT) [facility] LIPASE 35 13 - 60 U/L 08/13/2025 1:08 PM CDT [facility] Blood BLOOD SPECIMEN / Unknown Venipuncture / Unknown 08/13/2025 12:23 PM CDT 08/13/2025 12:34 PM CDT Scott Holguin MD CHEMISTRY ORDERABLES Final Result [facility] CLIA # [id number] [address] [place] [address] * MRI ANKLE WO CONTRAST LEFT (08/11/2025 [...] fluid collection. Narrative Procedure Note Constantin Montenegro, DO - 08/11/2025 IMPRESSION: Please see below. Exam: [...] - BOTH EYES (07/14/2025 10:08 AM CDT) Narrative [facility] SPECIAL[facility] - 07/14/2025 10:08 AM CDT Time Out [...] depression was performed to perform anterior laser. us Kim Servin MD [facility] PROCEDURES Final R esult [id number] [address] [place] [address] * EYE DROPS (07/14/2025 10:07 AM CDT) Lucille [facility] - 07/14/2025 10:07 AM CDT .Eye drop [...] for provider before laser in laser eye Kim Servin MD [facility] PROCEDURES Final R [facility] Performing Organization Address [facility] de Phone Number [facility] [id number] [address] [address] * EYE DROPS (07/14/2025 10:07 AM CDT) Narrative [facility] - 07/14/2025 10:07 AM CDT Eye drop orders per protocol for Basic Miller Apprentice Eye Exam (Non-Dilated) Instill proparacaine (OPHTHAINE) 0.5% ophthalmic solution. Amount: 1 drop per eye prior to tonometry If applanation is preferred method of tonometry: Instill fluorescein-benoxinate (FLURATE) 0.3-0.4 % ophthalmic solution 1 drop per eye during applanation Kim Servin MD [facility] PROCEDURES Final R [facility] Performing Organization Address [facility] de Phone Number [facility]# [id number] [address] [address] * INTRAVITREAL INJECTION, PHARMACOLOGIC AGENT - OU - BOTH EYES (07/07/2025 12:58 PM CDT) Narrative [facility] - 07/07/2025 12:58 PM CDT Time Out 07/07/2025. 12:58 PM. Confirmed correct patient, procedure, site, and patient consented. Anesthesia Topical anesthesia was used. Anesthetic medications included Proparacaine 0.5%, Tetracaine 0.5%. Procedure Right Eye Preparation included 0.25% betadine irrigation. A (32g) needle was used. Injection: 2 mg aflibercept 2 mg/0.05 mL Route: Intravitreal, Site: Eye, Right [facility]: 04254-786-14, Lot: [id number], Expiration date: 09/12/2026 Left Eye Preparation included 0.25% betadine irrigation. A (32g) needle was used. Injection: 2 mg aflibercept 2 mg/0.05 mL Route: Intravitreal, Site: Eye, Left ND: 74399-182-27, Lot: [id number], Expiration date: 09/12/2026 Post-op Right Eye Post [...] on consent. 3.5 mm supratemporally each eye. us Kim Servin MD OPH CLINIC PROCEDURES Final R esult [facility] CLIA# [id number] [address] [place] [address] * EYE DROPS (07/07/2025 12:57 PM CDT) Narrative [facility] - 07/07/2025 12:57 PM CDT Medications Eye Drops: 2 Drop lidocaine (PF) 3.5 % Route: Topical, Site: Eye, Bilateral ND: 26896-203-54, Lot: [id number] 5 Drop povidone-iodine in balanced salt solution 0.25% Route: Topical, Site: Eye, Bilateral NDC: [id number], Lot: [id number], Expiration date: 07/08/2025 5 Drop proparacaine 0.5 % Route: Topical, Site: Eye, Bilateral NDC: 15771-415-13, Lot: [id number], Expiration date: 03/12/2027 5 Drop tetracaine HCl (PF) 0.5 % Route: Topical, Site: Eye, Bilateral NDC: 6404-4556-62, Lot: [id number] Notes Eye drop orders per protocol for Intravitreal Injection Administer the following medications approximately 1 minute apart into the procedural/operative/affected eye 5 drops proparacaine (OPHTHAINE) 0.5% ophthalmic solution 5 drops of tetracaine (PF) 0.5% ophthalmic solution 5 drop of betadine mixture Kim Servin MD OPHTH CLINIC PROCEDURES Final R esult Performing Organization Address [facility] Co de Phone Number [facility] CLIA# [id number] [address] [place] [address] * OCT, RETINA - OU - BOTH EYES (07/07/2025 11:58 AM CDT) Narrative [facility] OPHTHALMOLOGY ORDERS - 07/07/2025 12:57 PM CDT RIGHT EYE: Mild macular edema, Intraretinal cystoid spaces, and intraretinal hyper-reflective foci. Mild intraretinal fluid LEFT EYE: Diabetic Macular Edema - worsened, Intraretinal cystoid spaces, intraretinal hyper-reflective foci, and disruption of outer-retinal layers. Kim Servin MD OPHTH TOMOGRAPHY Final Result Performing Organization Address [facility] Co de Phone Number [facility] OPHTHALMOLOGY ORDERS * EYE DROPS (07/07/2025 11:23 AM CDT) Narrative [facility] - 07/07/2025 12:57 PM CDT Medications Eye Drops: 1 Drop phenylephrine (AK-DILATE, MYDFRIN) 2.5% ophthalmic solution Route: Both Eyes [facility]: 74589-833-54, Lot: [id number], Expiration date: 11/13/2026 1 Drop proparacaine (OPHTHAINE) 0.5% ophthalmic solution Route: Both Eyes ND: 46181-437-02, Lot: [id number], Expiration date: 12/11/2026 1 Drop tropicamide (MYDRIACYL) 1% ophthalmic solution Route: Both Eyes ND: 67876-656-35, Lot: [id number], Expiration date: 12/11/2026 Notes Eye drop orders per protocol for Basic Miller Apprentice Eye Exam (Dilated) 1 Drop proparacaine (OPHTHAINE) 0.5% ophthalmic solution prior to tonometry 1 Drop tropicamide (MYDRIACYL) 1% ophthalmic solution 1 Drop phenylephrine (AK-DILATE, MYDFRIN) 2.5% ophthalmic solution us Kim Servin MD OPHTH CLINIC PROCEDURES Final R esult [facility] SPECIALISTS [facility]# [id number] [address] [place] [address] * CT ABDOMEN PELVIS WO CONTRAST (08/07/2024 [...] MICROALBUMIN, URINE 67.8 mg/dL 07/11/2015 11:45 PM [facility] CREATININE, URINE 163.8 40.0 - 278.0 mg/dL 07/11/2015 11:45 PM [facility] Comment: Reference Range varies with fluid intake and diet. MICROALBUMIN/CR EAT RATIO, UR 413.9 mg/g Creatinine 07/11/2015 11:45 PM T [facility] Comment: Condition mg/g Creatinine Normal Males <17 Normal Females <25 Microalbuminuria Males 17-299 Microalbuminuria Females 25-299 Overt proteinuria >=300 Urine 07/11/2015 10:5 3 PM CDT 07/11/2015 10:53 PM CDT Jyoti Shirley INDOOR LANDSCAPE ARCHITECT URINE ORDERABLES Final Result [facility] LABORATORY SERVICES [facility] CLIA # [id number] [address] [place], [place] [id number] [facility] CLIA # [id number] [address] [place] [address] from Last 3 Months or Most Recently Relevant to Health Maintenance Additional Health Concerns Active Problems Noted Date Diagnosed Date Heart Failure Problem 08/18/2025 [address] [place] [place] [address] RX [employer] Member Subscriber Plan / Payer (Ef fective 2025-Present) Name:Vida San Relation to Subscriber:Not on file Name:Vida San Subscriber ID:Not on file Date of :1990 Payer ID:Not on file Group ID:[id number] Type:RX Medicare Part D [facility] [place] [facility] [employer] Medicaid Advance Directives For more information, please contact: [phone] * Full Code (Latest Code Status on [...] Non-Invasive (i.e. BiPAP, CPAP): Yes Care Teams Stem Roller Operator Relationship Specialty Start Date End Date Duke Alarcon MD [address] [phone] PCP - General Family Practice 08/10/24
--- OUTSIDE RECORDS SUMMARY | 2025-09-25 16:52 | XMS_ITS | Encounter Summary ---
Author Organization [facility], [facility] Address [address] [place] [address] Phone Care Team Providers Care Professor Of Business Administration Name Role Phone Duke Alarcon MD Primary Care Provider [phone] Encounter Details Date Type Department Care Team (Late st Contact Info) Description 05/25/2025 TCM in Dialysis Clinic [facility], [facility] [address] [place] [address] Sixto Waller CARROT BUNCHER [address] [place] [address] Social History Tobacco Use Types [...] 05/25/2025 The patient was seen for a moga-iv-klid visit as part of Transitional Care Management services. Primary cause of renal failure: E10.22 - Type 1 diabetes mellitus with diabetic chronic kidney disease Attending Glass Presser: HODAN VALERA Dialysis Location: [facility] Schedule: Shift: 2 HOSPITALIZATION SUMMARY [...] 98.7*F Current Dialysis Vitals BP Sit: 185/93 AP/KNITTING MACHINE FIXER HEAD: 12/116 Pulse: 89 CARE COORDINATION Post-discharge follow-up appointments reviewed with the patient. EDUCATION COMMENTS: wt gain IMPRESSION & PLAN COMMENTS: hypertension: continue meds. UF 3L 05/26/25 to help with BP. Education provided. ESRD: Continue dialysis TTS. VISIT DIAGNOSES CPT Code 00014 - High complexity, seen within 7 days of discharge. I16.9 Hypertensive crisis, unspecified N18.6 End stage renal disease Signed by: SIXTO WALLER NP on 05/25/2025 at 05:23:55 PM Transcribed by: SIXTO WALLER NP on 05/25/2025 at 05:23:55 PM documented in this encounter Plan of Treatment Not on file documented as of this encounter Visit Diagnoses Not on filedocumented in this encounter Care Teams Professor Of Business Administration Relationship Specialty Start Date End Date Duke Alarcon MD [address] [address] PCP - General Family Medicine 08/12/24 documented as of this encounter
--- OUTSIDE RECORDS SUMMARY | 2025-09-25 16:52 | XMS_ITS | Encounter Summary ---
Author Organization [facility] Address [address] [place] [address] Care Team Providers Care Health Occupations Teacher Name Role Phone Karlo Banks MD Primary Care Provider [phone] Encounter Details Date Type Department Care Team (Latest Contact Info) Description 11/01/2003 Outpatient Historical [facility] [address] [place] [phone] Holland Bell MD [address] [place] [address] ASTHMA UNSPECIFIED (Primary Dx) Social History Tobacco Use Types Packs/Day Years Used Date Smoking Tobacco: Never Assessed Sex and Gender Information Value Date Recorded Sex Assigned at Not on file Legal Sex Male 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
--- OUTSIDE RECORDS SUMMARY | 2025-09-25 16:52 | XMS_ITS | Encounter Summary ---
Author Organization [facility] Address [address] [place] [address] Phone Care Team Providers Care Sales Department Supervisor Name Role Phone Duke Alarcon MD Primary Care Provider [phone] Encounter Details Date Type Department Care Team (Late st Contact Info) Description 09/23/2025 Orders Only [facility] [address] [place] [address] Angélica Ny MD [address] [place] [address] Social History Tobacco Use Types [...] Procedure Name Priority Date/Time Associated Diagnosis Comments HEMOGLOBIN Routine 09/23/2025 POTASSIUM Routine 09/23/2025 documented in this encounter Results * (ABNORMAL) Hemoglobin (09/23/2025) Hemoglobin 9.4(L) 13.2 - 14.0 g/dL [facility] 09/23/2025 09/22/2025 8:4 9 AM PIPE FITTER WELDING Narrative Resulting Agency Comment Performing Organization Information: Site ID: [id number] Name: Carlita Ortiz Address: [address] [place] [address] Director: Luz Lang MD us Angélica Ny MD LAB BLOOD ORDERABLES Final Re sult Performing Organization Address [facility] de Phone Number [facility] Carlita Ortiz [address] [place] [address] * (ABNORMAL) Potassium (09/23/2025) Potassium 6.6(H) 3.5 - 5.3 mmol/L [facility] Comment: Verified by repeat analysis. Red blood cells were present in the sample upon receipt in the laboratory. The test(s) ordered were performed. The presence of red blood cells has been known to affect the following analytes: potassium, glucose, inorganic phosphorus, lactate dehydrogenase and iron. Verified by repeat analysis. 09/23/2025 09/22/2025 8:4 9 AM PIPE FITTER WELDING Narrative Resulting Agency Comment Performing Organization Information: Site ID: [id number] Name: Carlita Ortiz Address: [address] [place] [address] Director: Luz Lang MD us Angélica Ny MD LAB BLOOD ORDERABLES Final Re sult Performing Organization Address [facility] de Phone Number [facility] Carlita Ortiz [address] [place] [address] documented in this encounter Visit Diagnoses Not on filedocumented in this encounter Care Teams Sales Department Supervisor Relationship Specialty Start Date End Date Duke Alarcon MD [address] [phone] PCP - General Family Medicine 08/12/24 documented as of this encounter
--- OUTSIDE RECORDS SUMMARY | 2025-09-25 16:52 | XMS_ITS | Encounter Summary ---
Author Organization [facility], [facility] Address [address] [place] [address] Phone Care Team Providers Care Data Communications Analyst Name Role Phone Duke Alarcon MD Primary Care Provider [phone] Encounter Details Date Type Department Care Team (Late st Contact Info) Description 08/17/2025 TCM in Dialysis Clinic [facility] [address] [place] [address] Jacki Gill NP [address] [place] [address] Social History Tobacco Use Types [...] Progress Notes * Jacki Gill NP - 08/17/2025 12:00 AM CST Patient: Hunter San : 1990 Note Type: Dialysis TCM Service Date: 08/17/2025 The patient was seen for a wymm-hs-ihhf visit as part of Transitional Care Management services. Primary cause of renal failure: E10.22 - Type 1 diabetes mellitus with diabetic chronic kidney disease Attending Ortho Tech: HODAN VALERA MD Dialysis Location: [facility] Schedule: Shift: 2 INTERACTIVE CONTACT This nhor-cq-wvfn visit occurred within 2 business days of the patient?s discharge. COMMENTS: Reviewed discharge with patient: reviewed medications HOSPITALIZATION SUMMARY Patient transitioned from: Hospital Patient transitioned to: Home Admit Date: 08/13/2025 Discharge Date: 08/17/2025 Discharged info reviewed: No outstanding diagnostic tests and treatments Reason for admission: NSTEMI HOME MEDICATIONS Discharge med list reviewed - changes reconciled and discussed with patient. Active treatment medication orders reviewed - no changes. COMMENTS: Yrn rn to update medication list Current [facility] Outpatient Medications Abilify 5 mg tablet Take 1 tablet by mouth once a day. amitriptyline 50 mg tablet Take 1 tablet by mouth every night. aripiprazole 5 mg tablet Take 1 tablet by mouth once a day. aspirin 81 mg tablet,delayed release (DR/EC) Take 1 tablet by mouth once a day. atorvastatin 80 mg tablet Take by mouth once a day. benzonatate 100 mg capsule Take 1 capsule by mouth three times a day as needed. [for cough] bumetanide 1 mg tablet Take 1 tablet by mouth twice a day. bupropion HCl 150 mg tablet extended release 24 hr Take 1 tablet by mouth once a day. carvedilol 25 mg tablet Take 1 tablet by mouth every twelve hours. Xltserfo-IWM-5 0.2 mg/24 hr patch weekly Apply 1 patch to skin once a week. [Remove old patch and replace with new one every week] cyclobenzaprine 10 mg tablet Take 1 tablet by mouth three times a day as needed. [for muscle spasms] diphenhydramine HCl 25 mg tablet Take 1 tablet by mouth as directed. [PRN every 4 hours] doxazosin 4 mg tablet Take 1 tablet by mouth at bedtime. duloxetine 30 mg capsule, delayed rel sprinkle 1 capsule by mouth once a day. epinephrine 0.3 mg/0.3 mL auto-injector [Inject 0.3 ML by Intramuscular injection 1 time daily needed for ANAPHYLAXIS] ferrous gluconate 324 mg (37.5 mg iron) tablet Take 1 tablet by mouth twice a day. gabapentin 100 mg capsule Take 2 capsule by mouth three times a day. hydralazine 100 mg tablet Take 1 tablet by mouth every eight hours. insulin lispro 100 unit/mL insulin pen Inject 6 unit subcutaneously three times a day with meals. [Inject 6 units 3 times daily before meals plus a medium dose sliding scale. Max units per day 60 units.] isosorbide mononitrate 30 mg tablet extended release 24 hr Take 1 tablet by mouth once a day. morphine 15 mg tablet Take by mouth every eight hours as needed for pain. Sevelamer Carbonate Tablet 800 mg tablet Take 2 Tablet By Mouth Three times a day With Meals. spironolactone 50 mg tablet Take 1 tablet by mouth once a day. varenicline tartrate 0.5 mg tablet Take as directed. Current MedReview Allergies Allergen: DAVID INHIBITORS Reaction: Cardiac Arrest Severity: Severe Allergen: ARB-Angiotensin Receptor Antagonist Reaction: Cardiac Arrest Severity: Severe Allergen: bee venom protein (honey bee) Reaction: Hives Severity: Moderate Allergen: LISINOPRIL Reaction: Dyspnea Severity: Mild TREATMENT MEDICATIONS ORDERS Heparin Sodium (Porcine) 1,000 Units/mL Systemic 5000 units IVP Every Treatment 07/22/2025 - 07/21/2026 Iron Sucrose (Venofer) 50 mg IVP 1X Week 07/20/2025 - 07/19/2026 Mircera 100 mcg IVP Every 2 weeks During Dialysis 07/27/2025 - 07/26/2026 PHYSICAL EXAM Exam not performed. DIALYSIS PRESCRIPTION Dry weight during admission reviewed - no change to EDW. Treatment Data Treatment Date: 08/17/2025 started at: 11:53 AM Dialysate / Machine Temp (prescribed): 37.0*C Dialysate / Machine Temp (actual): 36.9*C BFR (prescribed): 550 BFR (average delivered): 560 DFR (prescribed): Manual 800 DFR (average delivered): 740 Prescribed Time: 04:00 Actual Time: 04:03 EDW (kg): 94.8 Dialyzer: 180NRe Optiflux Dialysate: 2.0 K, 2.5 Ca, 1.0 Mg, 100 Dextrose (G2251) Sodium: 138 Bicarb: 34 Pre Dialysis Vitals Pre BP Sit: 107/62 Pre Wt (kg): 103.4 EDW Deviation (kg): 8.6 Temp: 97.8*F Post Dialysis Vitals Post BP Sit: 123/65 Post Wt (kg): 98.9 CARE COORDINATION Post-discharge follow-up appointments reviewed with the patient. COMMENTS: Follow up with international account executive and cardiac rehab as referred EDUCATION Education relevant to the discharge diagnosis provided to the patient or caregiver VISIT DIAGNOSES CPT Code 24353 - High complexity, seen within 7 days of discharge. I22.2 Subsequent non-ST elevation (NSTEMI) myocardial infarction COMMENTS: Reviewed hospital stay and follow up with patient including cardiac rehab and medication compliance. Signed by: JACKI GILL NP on 08/17/2025 at 08:18:56 PM Transcribed by: JACKI GILL NP on 08/17/2025 at 08:06:14 PM documented in this encounter Plan of Treatment Not on file documented as of this encounter Visit Diagnoses Not on filedocumented in this encounter Care Teams Data Communications Analyst Relationship Specialty Start Date End Date Duke Alarcon MD [address] [phone] PCP - General Family Medicine 08/12/24 documented as of this encounter
--- OUTSIDE RECORDS SUMMARY | 2025-09-25 16:52 | XMS_ITS | Encounter Summary ---
Author Organization [facility], [facility] Address [address] [place] [address] Phone Care Team Providers Care Corporate Travel Counselor Name Role Phone Duke Alarcon MD Primary Care Provider [phone] Encounter Details Date Type Department Care Team (Late st Contact Info) Description 05/04/2025 TCM in D[facility], [facility] [address] [place] [address] Angélica Ny MD [address] [place] [address] Social History Tobacco Use Types [...] Hunter San, 1990, 34y, M Dialysis Location: [facility] Attending Food Safety Coordinator: Angélica Ny Service Date: 05/04/2025 Service Provider: [...] on filedocumented in this encounter Care Teams Corporate Travel Counselor Relationship Specialty Start Date End Date Duke Alarcon MD [address] [facility] [address] [place] [address] PCP - General Family Medicine 08/12/24 documented as of this encounter
--- OUTSIDE RECORDS SUMMARY | 2025-09-25 16:52 | XMS_ITS | Patient Health Record ---
Author Organization [facility] Address [address] [facility] [place] [address] Care Team Providers Care Sleep Technologist Name Role Phone Constantin Landeros [phone] Allergies Allergen (clinical drug ingredient) Drug/Non Drug Allergy documented on EMR Reaction Allergy Type Onset Date Status lisinopril Lisinopril Unknown Drug Allergy Activ e Results Component Value Reference Range Notes [facility] Drug Screen Reviewed date:09/07/2025 05:12:20 PM Interpretation: Performing Lab: Notes/Report: Reason For Referral Reason Eval and Treat Diagnosis 1 Chronic pain (G89.29 ) Referring Provider First Name Duke Referring Provider Last Name Dorian Referring Provider Speciality Family Med icine Referred Organization [facility] Home Referred Provider Anjelica Guerrero Referred Address [address] [place] [address],[place],[address], Referred Provider Specialty Pain Medicin e General Notes Kia Castle 06:31:57 PM CDT > mailing npp, scheduled pt Referral Priority Routine Medications Medication SIG (Take, Route, Frequency, Duration) Notes Start Date End Date Status hydrALAZINE HCl 100 MG Tablet Oral; Duration: 100 Days Active Lokelma 10 GM Packet Oral; Duration: 30 Days Active Carvedilol 25 MG Tablet Oral; Duration: 100 Days Active HumaLOG KwikPen 100 UNIT/ML Solution Pen-injector Subcutaneous; Duration: 25 Days Active oxyCODONE HCl 5 MG Tablet 1 tablet as needed Orally every 6 hrs Not-Taking Morphine Sulfate 15 MG Tablet 1 tablet as needed Orally every 8 hours; Duration: 30 days As needed Not to exceed 3 per day fill 09/22/2025 due to increase 09/22/2025 10/22/2025 Active traZODone HCl 50 MG Tablet Oral; Duration: 30 Days Active ARIPiprazole 5 MG Tablet Oral; Duration: 30 Days Active buPROPion HCl ER (XL) 150 MG Tablet Extended Release 24 Hour Oral; Duration: 30 Days Active amLODIPine Besylate [...] De nies Do you drink alcohol? 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) Active confirmed Problem Chronic pain (40243891) Chronic pain (G89.29) Active confirmed Problem Abnormal gait (15853620) Abnormality of gait and mobility (R26.9) Active confirmed Vital Signs Height-cm 182.88 cm 08/25/2025 Weight-kg 95.71 kg 08/25/2025 Height 72 in 08/25/2025 Weight 211 lbs 08/25/2025 BMI 28.61 kg/m2 08/25/2025 Encounters Encounter Location Date Provider Diagnosis [facility] [address] [place] [phone] 09/22/2025 Constantin Landeros Chronic pain syndrom e G89.4 ; Failed back syndrome of lumbar spine M96.1 ; Lumbar radiculopathy M54.16 ; Abnormality of gait and mobility R26.9 ; Long-term use of high-risk medication Z79.899 and History of illicit drug use Z87.898 [facility] [address] [place] [address] 08/25/2025 Constantin Landeros Chronic pain syndrom e G89.4 ; Failed back syndrome of lumbar spine M96.1 ; Lumbar radiculopathy M54.16 ; Long-term use of high-risk medication Z79.899 ; History of illicit drug use Z87.898 and Abnormality of gait and mobility R26.9 [facility] [address] [place] [address] 07/28/2025 Constantin Landeros Chronic pain syndrom e G89.4 ; Failed back syndrome of lumbar spine M96.1 ; Long-term use of high-risk medication Z79.899 ; Lumbar radiculopathy M54.16 ; History of illicit drug use Z87.898 and Abnormality of gait and mobility R26.9 Assessments Encounter Date Diagnosis (ICD Code) Assessment [...] history of fusions. He met with a labor union business representative from [employer] today. We will increase his prescription quantity to 90 tablets a month. His UDS and pill counts have been consistent with his current treatment regimen. We will follow up in a couple of months and proceed accordingly. We will continue a dialogue on SCS moving forward. 09/22/2025 Failed back syndrome of lumbar spine (ICD-10 - M96.1) 08/25/2025 Chronic pain syndrome (ICD-10 - G89.4) I had a nice visit with the patient today regarding his chronic pain issues. He reports that the morphine is working better for him. He is pleased about this. He was recently in the hospital for potentially a heart attack, but his reliability engineer was only 85% sure it was a heart attack. They were not able to see for sure. He didn't take his medication for a couple of days due to a fear of not getting a refill. I informed him that I wanted him to take the medication when it was needed. I will obtain a UDS. I understand that it may not show up in there. I informed him to bring his pills to all his appointments. He is very high risk as a patient, and we are trying to work with him, but he doesn't have much room for latitude with regard to his controlled substance agreement. He verbalized understanding. He continues to find medication relatively effective overall. We will continue his medications unchanged. His UDS and pill counts have been consistent with his current treatment regimen. We will follow up in a month and proceed accordingly. 08/25/2025 Failed back syndrome of lumbar spine (ICD-10 - M96.1) 07/28/2025 Chronic pain syndrome (ICD-10 - G89.4) I had a nice visit with the patient today regarding his chronic pain issues. This is a complicated situation in a young gentleman with a history of five lumbar surgeries and illicit use of methamphetamine and legal issues as a result. 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 He understands the situation he is in with that history and chronic pain problems. We discussed treatment options, including Suboxone. However, he is not in a situation where he can travel to [place] for any type of induction. Taking everything into account, I am open to trial him on morphine; I would prefer to get him away from oxycodone. We will provide a prescription for the next month. I appreciate his openness with us today. He understands that he is at high risk for issues and seems to be quite forthcoming and agreeable. We will follow up in a month and proceed accordingly. 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 - M96.1) 07/28/2025 Long-term use of high-risk medication (ICD-10 - Z79.899) 08/25/2025 Lumbar radiculopathy (ICD-10 - M54.16) 09/22/2025 Lumbar radiculopathy (ICD-10 - M54.16) 08/25/2025 Long-term use of high-risk medication (ICD-10 - Z79.899) 09/22/2025 Abnormality of gait and mobility (ICD-10 - R26.9) 07/28/2025 Lumbar radiculopathy (ICD-10 - M54.16) 07/28/2025 History of illicit drug use (ICD-10 - Z87.898) 08/25/2025 History of illicit drug use (ICD-10 - Z87.898) 09/22/2025 Long-term use of high-risk medication (ICD-10 - Z79.899) 09/22/2025 History of illicit drug use (ICD-10 - Z87.898) 08/25/2025 Abnormality of gait and mobility (ICD-10 - R26.9) 07/28/2025 Abnormality of gait and mobility (ICD-10 - R26.9) 09/22/2025 Other Leena Kelsey am scribing for Dr. Constantin Landeros. I, Dr. Constantin Landeros, personally performed the services described in this documentation, as scribed by Leena Nath, and it is both accurate and complete. 07/28/2025 Other Leean Kelsey am scribing for Dr. Constantin Landeros. I, Dr. Constantin Landeros, personally performed the services described in this documentation, as scribed by Leena Nath, and it is both accurate and complete. 08/25/2025 Other Leena Kelsey am scribing for Dr. Constantin Landeros. I, Dr. Constantin Landeros, personally performed the services described in this documentation, as scribed by Leena Nath, and it is both accurate and complete. Plan Of Treatment Next Appt Details Provider Name:Constantin Landeros, 10/20/2025 10:00:00 AM, [address] [place], [address], Insurance Providers Payer Name Payer Address Payer Phone Subscriber Number Group Number Insured Name Patient Relationship to Insured Coverage Start Date Coverage End Date [facility] Medicare Advantage PPO [address] [address] [place] [address] [id number] Hunter San Self - patient is the insured [place] [address] [address] [place] [address] [phone] [id number] Hunter San Self - patient is the insured [facility] [employer] [address] [place] [address] [phone] [id number] Jaswinder, Hunter Self - patient is the insured Medical (General) History Medical History History ICD Code High Blood Pressure Diabetes Heart Disease asthma Depression Arthritis constipation kidney infection Surgical History Surgery Date(Month/Year) back surgery 2011 back surgery 2013 back surgery 2020 back surgery 2022 back surgery 2023
--- OUTSIDE RECORDS SUMMARY | 2025-09-25 16:52 | XMS_ITS | Encounter Summary ---
Author Organization [facility] Address [address] [place] [address] Care Team Providers Care Voice Teacher Name Role Phone Karlo Banks MD Primary Care Provider +1 [phone] Encounter Details Date Type Department Care Team (Late st Contact Info) Description 07/11/2015 Lab Requisition [facility] [place] [address] [place] [phone] Jyoti Shirley, DEVELOPMENTAL MATHEMATICS PROFESSOR [address] [place] [phone] Social History Tobacco Use Types Packs/Day Years Used Date Smoking Tobacco: Former Cigarettes Alcohol Use Standard Drinks/Week Comments No 0 (1 standard drink = 0.6 oz pur e alcohol) Sex and Gender Information Value Date Recorded Sex Assigned at Not on file Legal Sex Male 5:07 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 MICROALBUMIN/CR EAT RATIO, UR 413.9 mg/g Creatinine 07/11/2015 11:45 PM CDT [facility] Comment: Condition mg/g Creatinine Normal Males <17 Normal Females <25 Microalbuminuria Males 17-299 Microalbuminuria Females 25-299 Overt proteinuria >=300 Urine 07/11/2015 10:5 3 PM CDT 07/11/2015 10:53 PM CDT Jyoti Shirley DEVELOPMENTAL MATHEMATICS PROFESSOR URINE ORDERABLES Final Result [facility] CLIA # [id number] [address] [place] [address] * (ABNORMAL) LIPID PANEL (07/11/2015 10:53 PM CDT) CHOLESTEROL 204(H) <200 mg/dL 07/11/2015 11:21 PM CDT [facility] TRIGLYCERIDE 276(H) <150 mg/dL 07/11/2015 11:21 PM CDT [facility] HDL 25(L) 40 - 59 mg/dL 07/11/2015 11:21 PM CDT [facility] LDL CALCULATED 124(H) <100 mg/dL 07/11/2015 11:21 PM CDT [facility] NON-HDL CHOLESTEROL 179(H) <130 mg/dL 07/11/2015 11:21 PM CDT [facility] Blood 07/11/2015 10:5 3 PM CDT 07/11/2015 10:53 PM CDT Narrative [facility] - 07/11/2015 11:21 PM CDT [...] Based on AHA/NCEP Guidelines Jyoti Shirley [facility] CHEMISTRY ORDERABLES Final Resu lt Performing Organization Address [facility] de Phone Number [facility] CLIA # [id number] [address] [place] [address] * (ABNORMAL) HEMOGLOBIN A1C (07/11/2015 10:53 PM CDT) HEMOGLOBIN A1C 10.6(H) 4.8 - 5.9 % 07/11/2015 11:16 PM CDT [facility] EST. AVG GLUCOSE, A1C 258 mg/dL 07/11/2015 11:16 PM CDT [facility] Blood 07/11/2015 10:5 3 PM CDT 07/11/2015 10:53 PM CDT Jyotivadim Shirley [facility] CHEMISTRY ORDERABLES Final Resu lt Performing Organization Address [facility]/ZIP Co de Phone Number [facility] CLIA # [id number] [address] [place] [phone] * (ABNORMAL) COMPREHENSIVE METABOLIC PANEL (07/11/2015 10:53 PM CDT) SODIUM 129(L) 136 - 145 mmol/L 07/11/2015 11:21 PM [facility] POTASSIUM 3.6 3.5 - 5.1 mmol/L 07/11/2015 11:21 PM [facility] CHLORIDE 87(L) 98 - 107 mmol/L 07/11/2015 11:21 PM [facility] CO2 25 22 - 29 mmol/L [...] 3.5 - 5.2 g/dL 07/11/2015 11:21 PM [facility] BILIRUBIN TOTAL 2.7(H) 0.0 - 1.2 mg/dL 07/11/2015 11:21 PM [facility] ALKALINE PHOSPHATASE 93 40 - 129 U/L 07/11/2015 11:21 PM [facility] AST 19 10 - 50 U/L 07/11/2015 11:21 PM [facility] ALT 15 10 - 50 U/L 07/11/2015 11:21 PM [facility] GFR >60 >=60 mL/min/1.7 3 sq meter 07/11/2015 11:21 PM [facility] Comment: eGFR has not been validated [...] 3 sq meter 07/11/2015 11:21 PM CDT [facility] ANION GAP 17 12 - 20 mmol/L 07/11/2015 11:21 PM CDT [facility] Blood 07/11/2015 10:5 3 PM CDT 07/11/2015 10:53 PM CDT Jyoti Shirley DEVELOPMENTAL MATHEMATICS PROFESSOR CHEMISTRY ORDERABLES Final Resu lt [facility] CLIA # [id number] [address] [place] [address] documented in this encounter Visit Diagnoses Not on filedocumented in this encounter Care Teams Voice Teacher Relationship Specialty Start Date End Date Karlo Banks MD PCP - General Internal Medicine 10/14/14 01/11/21 documented as of this encounter
--- OUTSIDE RECORDS SUMMARY | 2025-09-25 16:53 | XMS_ITS | Encounter Summary ---
Author Organization [facility] Address [address] [place] [address] Care Team Providers Care Division Chief Name Role Phone Duke Alarcon MD Primary Care Provider [phone] [phone] Reason for Visit * Reason Onset Date Comments Medication Refill 09/23/2025 Encounter Details Date Type Department Care Team (Late st Contact Info) Description 09/23/2025 Refill [facility] Medicine [address] [address] Duke Alarcon MD [address] [address] Paranoid schizophrenia (CMS/HCC); Malignant hypertension Social History Tobacco Use Types [...] worry about transportation for future doctor visits, pick pack worker medication, etc.? No 2024 Housing Stability Answer [...] on file Legal Sex Male 3:23 AM SENIOR TAX MANAGER Gender Identity Not on file Sexual Orientation Not on file documented as of this encounter Plan of Treatment Upcoming Encounters Date Type Department Care Team (Late st Contact Info) Description 10/20/2025 3:20 PM SENIOR TAX MANAGER Office Visit [facility] Medicine [place] [address] [address] Duke Alarcon MD [address] [address] documented as of this encounter Goals Goal Patient Goal Type Associated Problems Recent Progress Patient-Stated? Author Heart Failure Goal Care Plan Heart Failure Problem No Faye Denny Halima documented as of this encounter Visit Diagnoses Diagnosis Paranoid schizophrenia (CMS/[facility]) Paranoid schizophrenia, unspecified condition Malignant hypertension Essential hypertension, malignant documented in this encounter Additional Health Concerns Active Problems Noted Date Diagnosed Date Heart Failure Problem 08/18/2025 documented as of this encounter Care Teams Division Chief Relationship Specialty Start Date End Date Duke Alarcon MD [address] [address] PCP - General Family Practice 08/10/24 documented as of this encounter
--- OUTSIDE RECORDS SUMMARY | 2025-09-25 16:53 | XMS_ITS | Encounter Summary ---
Author Organization [facility] Address [address] [place] [address] Care Team Providers Care Lang Interpreter Name Role Phone Karlo Banks MD Primary Care Provider [phone] [phone] Encounter Details Date Type Department Care Team (Latest Contact Info) Description 02/07/2004 Outpatient Historical [facility] [address] [place] [phone] Holland Bell MD [address] [place] [address] ASTHMA UNSPECIFIED (Primary Dx) Social History Tobacco Use Types Packs/Day Years Used Date Smoking Tobacco: Never Assessed Sex and Gender Information Value Date Recorded Sex Assigned at Not on file 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
--- OUTSIDE RECORDS SUMMARY | 2025-09-25 16:53 | XMS_ITS | Encounter Summary ---
Author Organization [facility] Address [address] [place] [address] Care Team Providers Care Seo Analyst Name Role Phone Karlo Banks MD Primary Care Provider +1 [phone] Encounter Details Date Type Department Care Team (Latest Contact Info) Description 06/04/2005 Outpatient Historical [facility] [address] [place] [address] Holland Bell MD [address] [place] [address] MED EXAM NEC-ADMIN PURP (Primary Dx) Social History Tobacco Use Types Packs/Day Years Used Date Smoking Tobacco: Never Assessed Sex and Gender Information Value Date Recorded Sex Assigned at Not on file Legal Sex Male 5:07 AM FIBRE CEMENT 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
--- OUTSIDE RECORDS SUMMARY | 2025-09-25 16:53 | XMS_ITS | Encounter Summary ---
Author Organization [facility] Address [address] [place] [address] Care Team Providers Care Maintenance Mgr Name Role Phone Karlo Banks MD Primary Care Provider +1 [phone] Encounter Details Date Type Department Care Team (Latest Contact Info) Description 02/24/2004 Outpatient Historical [facility] [address] [place] [phone] Holland Bell MD [address] [place] [phone] CONJUNCTIVITIS NOS (Primary Dx) Social History Tobacco Use Types Packs/Day Years Used Date Smoking Tobacco: Never Assessed Sex and Gender Information Value Date Recorded Sex Assigned at Not on file 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
--- OUTSIDE RECORDS SUMMARY | 2025-09-25 16:53 | XMS_ITS | Encounter Summary ---
Author Organization [facility] Address 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
--- OUTSIDE RECORDS SUMMARY | 2025-09-25 16:53 | XMS_ITS | Encounter Summary ---
Author Organization [facility] Address [address] [place] [address] Care Team Providers Care Matrix Repairer Name Role Phone Duke Alarcon MD Primary Care Provider +1 -[phone] Encounter Details Date Type Department Care Team (Late st Contact Info) Description 09/21/2025 External Device Data STL ABSTRACTION Provider, [...] worry about transportation for future doctor visits, peanut picker medication, etc.? 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 Author Heart Failure Goal Care Plan Heart Failure Problem No JoaquínCollette spencerFaye Halima documented as of this encounter Visit Diagnoses Not on filedocumented in this encounter Additional Health Concerns Active Problems Noted Date Diagnosed Date Heart Failure Problem 08/18/2025 documented as of this encounter Care Teams Matrix Repairer Relationship Specialty Start Date End Date Duke Alarcon MD [address] [place] [address] PCP - General Family Practice 08/10/24 documented as of this encounter
--- OUTSIDE RECORDS SUMMARY | 2025-09-25 16:53 | XMS_ITS | Clinical Summary ---
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
--- OUTSIDE RECORDS SUMMARY | 2025-09-25 16:53 | XMS_ITS | Encounter Summary ---
Author Organization [facility] Address [address] [place] [address] Care Team Providers Care Communications Professional Name Role Phone Duke Alarcon MD Primary Care Provider [phone] [phone] Reason for Visit * Reason Onset Date Comments Medication Problem 09/21/2025 Encounter Details Date Type Department Care Team (Late st Contact Info) Description 09/21/2025 Telephone [facility] Family Medicine [address] [address] Duke Alarcon MD [address] [address] Medication Problem Social History Tobacco Use Types Packs/Day Years [...] worry about transportation for future doctor visits, picking tech medication, etc.? 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 Duke Alarcon MD to Me (Selected Message) 09/22/25 8:55 AM Patient should be on 25 mg twice daily, disregard Rx from [facility], hospital staff was unaware of his current medications and they thought they were increasing him up to 12.5 when he has been at 25 twice a day since December of this year. Joy at [facility] notified. Anna Naylor LPN, 09/22/2025 9:28 AM ESSOR OF COMMUNICATION * Telephone Encounter - Diane Amezcua LPN - 09/21/2025 12:32 PM PROFESSOR OF COMMUNICATION 09/21/2025 12:32 PM Anh from [facility] called stating patient had carvedilol 25 mg sent in today by Dr. Alarcon, but there was a carvedilol 12.5 mg sent in yesterday by an [facility] [place]. Kamara is wondering which prescription she needs to fill and which one she needs to cancel. She stated that it looked like patient had not been taking medications consistently, and the 12.5 has not been picked up yet. She will wait to be contacted back before dispensing medication. Diane HENSON ESSOR OF COMMUNICATION documented in this encounter Plan of Treatment Upcoming Encounters Date Type Department Care Team (Late st Contact Info) Description 10/20/2025 3:20 PM PROFESSOR OF COMMUNICATION Office Visit [facility] [address] [place] [address] Duke Alarcon MD [address] [address] documented as of this encounter Goals Goal Patient Goal Type Associated Problems Recent Progress Patient-Stated? Author Heart Failure Goal Care Plan Heart Failure Problem No Faye Denny Halima documented as of this encounter Visit Diagnoses Not on filedocumented in this encounter Additional Health Concerns Active Problems Noted Date Diagnosed Date Heart Failure Problem 08/18/2025 documented as of this encounter Care Teams Communications Professional Relationship Specialty Start Date End Date Duke Alarcon MD [address] [address] PCP - General Family Practice 08/10/24 documented as of this encounter
--- OUTSIDE RECORDS SUMMARY | 2025-09-25 16:53 | XMS_ITS | Clinical Summary ---
Author Organization [facility] Facility Address [address] [address] Care Team Providers Care Feed Mixer Helper Name Role Phone Duke Alarcon MD Primary Care Provider [phone] Allergies Active Allergy Reactions Criticality Noted Date [...] time each day 30 tablet 11 4 Active albuterol HFA (PROVENTIL HFA;VENTOLIN HFA) 108 [...] Pt is on day 15 5 Active Active Problems Problem Noted Date Diagnosed Date Type 1 diabetes mellitus wit h diabetic chronic kidney disease 08/27/2024 Malignant hypertension 08/27/2024 Persistent proteinuria 08/27/2024 Harmful pattern of substance use 08/27/2024 Chronic kidney disease stage 3A 08/27/2024 Acute nontraumatic kidney injury 07/12/2024 Encounters Date Type Department Care Team Description 09/23/2025 Orders Only [facility], [facility] [address] [place] [address] Angélica Ny MD 09/16/2025 Orders Only [facility], [facility] [address] [place] [address] Angélica Ny MD 09/14/[address] [place] [address], [facility] [address] [place] [address] Delia Solis NP End stage renal disease; Dependence on renal dialysis; Type 1 diabetes mellitus with diabetic chronic kidney disease 09/08/2025 Orders Only [facility], [facility] [address] [place] [address] Angélica Ny MD 09/06/2025 [facility] [address] [place] [address] Delia Solis NP End stage renal disease; Dependence on renal dialysis; Type 1 diabetes mellitus with diabetic chronic kidney disease 09/02/2025 Orders Only [facility], [facility] [address] [place] [address] Angélica Ny MD 08/31/2025 Treatment [facility], [facility] [address] [place] [address] Angélica Ny MD End stage renal disease; Dependence on renal dialysis 08/26/2025 [facility], [facility] [address] [place] [address] Angélica yN MD 08/24/2025 Orders Only [facility], [facility] [address] [place] [address] Angélica Ny MD 08/24/[address] [place] [address], [facility] [address] [place] [address] Delia Solis NP End stage renal disease; Dependence on renal dialysis; Type 1 diabetes mellitus with diabetic chronic kidney disease 08/19/2025 [facility], [facility] [address] [place] [address] Angélica Ny MD 08/17/2025 Orders [facility], [facility] [address] [place] [address] Angélica Ny MD 08/17/2025 TCM in Dialysis Clinic [address] [place] [address], [facility] [address] [place] [address] Delia Solis NP 08/17/[address] [place] [address], [facility] [address] [place] [address] Delia Solis NP End stage renal disease; Dependence on renal dialysis; Type 1 diabetes mellitus with diabetic chronic kidney disease 08/17/2025 Telephone [facility], [facility] [address] [place] [address] Angélica Ny MD 08/12/2025 Orders Only [facility], [facility] [address] [place] [address] Angélica Ny MD 08/10/[address] [place] [address], [facility] [address] [place] [address] Angélica Ny MD End stage renal disease; Dependence on renal dialysis 08/05/2025 Orders [facility], [facility] [address] [place] [address] Angélica Ny MD 08/03/[address] [place] [address], [facility] [address] [place] [address] Delia Solis NP End stage renal disease; Dependence on renal dialysis; Type 1 diabetes mellitus with diabetic chronic kidney disease 07/29/2025 Orders Only [facility], [facility] [address] [place] [address] Angélica Ny MD 07/22/2025 Orders Only [facility], [facility] [address] [place] [address] Angélica Ny MD 07/20/[address] [place], [place] [address], [facility] [address] [place] [address] Anju Mcleod NP End stage renal disease; Dependence on renal dialysis 07/15/2025 [facility], [facility] [address] [place] [address] Delia Solis NP End stage renal disease; Dependence on renal dialysis 07/15/2025 Orders Only [facility], [facility] [address] [place] [address] Angélica Ny MD 07/08/2025 Orders Only [facility], [facility] [address] [place] [address] Angélica Ny MD 07/06/2025 Treatment [facility], [facility] [address] [place] [address] Angélica Ny MD End stage renal disease; Dependence on renal dialysis 07/01/2025 Orders Only [facility], [facility] [address] [place] [address] Angélica Ny MD from Last 3 Months Family History Relation [...] Comments Blood Pressure 230/130 11/18/2024 12:57 PM ASSOCIATION EXECUTIVE Pulse 105 11/18/2024 12:57 PM ASSOCIATION EXECUTIVE Temperature - - Respiratory Rate - - Oxygen Saturation 97% 11/18/2024 12:57 PM ASSOCIATION EXECUTIVE Inhaled Oxygen Concentration - - Weight 114 kg (251 lb 14.4 oz) 11/18/2024 12:57 PM ASSOCIATION EXECUTIVE Height 182.9 cm (6') 11/18/2024 12:57 PM ASSOCIATION EXECUTIVE Body Mass Index 34.16 11/18/2024 12:57 PM ASSOCIATION EXECUTIVE Plan of Treatment Health Maintenance Due Date [...] Vaccine (#1) 2025 09/14/2024 Diabetes: Hemoglobin A1C 12/15/2025 025, 08/14/2025, 06/22/2025, Additional history exists Diabetes: Ophthalmology Exam 07/07/2026, 01/11/2025, 11/02/2024 Procedures Procedure Name Priority Date/Time Associated Diagnosis Comments HEMOGLOBIN Routine 09/23/2025 POTASSIUM Routine 09/23/2025 [facility] LAB RESULTS Routine 09/16/2025 HEMOGLOBIN A1C Routine 09/16/2025 FERRITIN Routine 09/16/2025 PTH, INTACT Routine 09/16/2025 DIFFERENTIAL WITH WBC Routine 09/16/2025 CBC Routine 09/16/2025 PLATELET COUNT Routine 09/16/2025 POST DIALYSIS BUN Routine 09/16/2025 IRON AND TIBC Routine 09/16/2025 MAGNESIUM Routine 09/16/2025 GLUCOSE, RANDOM Routine 09/16/2025 ALBUMIN Routine 09/16/2025 PROTEIN, TOTAL, SERUM Routine 09/16/2025 ALKALINE PHOSPHATASE Routine 09/16/2025 PHOSPHATE ( PHOSPHORUS) Routine 09/16/2025 CALCIUM Routine 09/16/2025 CO2, TOTAL Routine 09/16/2025 CHLORIDE Routine 09/16/2025 SODIUM Routine 09/16/2025 BUN Routine 09/16/2025 CREATININE, SERUM Routine 09/16/2025 POTASSIUM Routine 09/16/2025 HEMOGLOBIN Routine 09/08/2025 HEMOGLOBIN Routine 09/02/2025 POTASSIUM Routine 09/02/2025 [facility] LAB RESULTS Routine 08/26/2025 HEMOGLOBIN Routine 08/26/2025 POST DIALYSIS BUN Routine 08/26/2025 BUN Routine 08/26/2025 BUN Routine 08/24/2025 [facility] LAB RESULTS Routine 08/19/2025 DIFFERENTIAL WITH WBC Routine 08/19/2025 CBC Routine 08/19/2025 PLATELET COUNT Routine 08/19/2025 POST DIALYSIS BUN Routine 08/19/2025 IRON AND TIBC Routine 08/19/2025 GLUCOSE, RANDOM Routine 08/19/2025 ALBUMIN Routine 08/19/2025 PROTEIN, TOTAL, SERUM Routine 08/19/2025 PHOSPHATE ( PHOSPHORUS) Routine 08/19/2025 CALCIUM Routine 08/19/2025 CO2, TOTAL Routine 08/19/2025 CHLORIDE Routine 08/19/2025 SODIUM Routine 08/19/2025 BUN Routine 08/19/2025 CREATININE, SERUM Routine 08/19/2025 POTASSIUM Routine 08/19/2025 HEMOGLOBIN Routine 08/17/2025 HEMATOLOGY Routine 08/12/2025 HEMATOLOGY Routine 08/05/2025 CHEMISTRY Routine 08/05/2025 HEMATOLOGY Routine 07/29/2025 HEMATOLOGY Routine 07/22/2025 [facility] LAB RESULTS Routine 07/15/2025 HD KINETICS Routine 07/15/2025 POST CHEMISTRY Routine 07/15/2025 CHEMISTRY Routine 07/15/2025 HEMATOLOGY Routine 07/15/2025 HEMATOLOGY Routine 07/08/2025 HEMATOLOGY Routine 07/01/2025 from Last 3 Months Results * (ABNORMAL) Hemoglobin (09/23/2025) Only the most recent of5 resultswithin the time period is included. Hemoglobin 9.4(L) 13.2 - 14.0 g/dL [facility] 09/23/2025 09/22/2025 8:4 9 AM ASSOCIATION EXECUTIVE Narrative Resulting Agency Comment Performing Organization Information: Site ID: MARLEN Name: [facility] Address: [id number] [place] [address] Director: Luz Lang MD Angélica Ny MD LAB BLOOD ORDERABLES Final Re sult [facility] [address] [place] [address] * (ABNORMAL) Potassium (09/23/2025) Only the most recent of4 resultswithin the time period is included. Potassium 6.6(H) 3.5 - 5.3 mmol/L [facility] Comment: Verified by repeat analysis. Red blood cells were present in the sample upon receipt in the laboratory. The test(s) ordered were performed. The presence of red blood cells has been known to affect the following analytes: potassium, glucose, inorganic phosphorus, lactate dehydrogenase and iron. Verified by repeat analysis. 09/23/2025 09/22/2025 8:4 9 AM ASSOCIATION EXECUTIVE Narrative Resulting Agency Comment Performing Organization Information: Site ID: MARLEN Name: [facility] Address: [address] [place] [phone] Director: Luz Lang MD Angélica Ny MD LAB BLOOD ORDERABLES Final Re sult Performing Organization Address City/[facility] Co de Phone Number [facility] Carlita Davies-[address] [address] * (ABNORMAL) Iron and TIBC (09/16/2025) Only the most recent of2 resultswithin the time period is included. Iron, Total 45(L) 50 - 180 mcg/dL [facility] TIBC 228(L) 250 - 425 mcg/dL (calc) [facility] Iron Saturation (TSat) 20 20 - 48 % (calc) [facility] 09/16/2025 09/15/2025 1:1 3 PM ASSOCIATION EXECUTIVE Narrative Resulting Agency Comment Performing Organization Information: Site ID: MARLEN Name: [facility] Address: [address] [place] [phone] Director: Luz Lang MD Angélica Ny MD LAB BLOOD ORDERABLES Final Re sult Performing Organization Address City/[facility]/ZIP Co de Phone Number [facility] [address] * [facility] Lab Results (09/16/2025) Only the most recent of4 resultswithin the time period is included. spKt/V (Daugirdas II) 1.28 [facility] eKt/V ([place]) 1.11 [facility] eNPCR 0.69 [facility] PCR 61.66 [facility] eKt/V Gotch 1.11 [facility] [place] WSTDKT/V 2.2 [facility] nPCR_HD 0.75 [facility] spKt/V Got 1.28 [facility] eKdrt/V 1.11 [facility] 09/16/2025 09/16/2025 us Ordering Provider LAB BLOOD ORDERABLES Final Result [facility] Center Contact Performing lab Unknown, [place] * Post Dialysis BUN (09/16/2025) Only the most recent of3 resultswithin the time period is included. BUN Post Dialysis 14 7 - 25 mg/dL [facility] 09/16/2025 09/15/2025 1:1 3 PM ASSOCIATION EXECUTIVE Narrative Resulting Agency Comment Performing Organization Information: Site ID: [place] Name: [facility] Address: [id number] [place] [phone] Director: Luz Lang MD us Angélica Ny MD LAB BLOOD ORDERABLES Final Re sult Performing Organization Address City/[facility]/ZIP Co de Phone Number [facility] [id number] [place] [phone] * Differential with WBC (09/16/2025) Only the most recent of2 resultswithin the time period is included. WBC 8.9 3.8 - 10.8 Thousand/u L [facility] Neutrophils Absolute 6,631 1,500 - 7,800 cells/uL [facility] Lymphocytes Absolute 1,388 850 - 3,900 cells/uL [facility] Monocytes Absolute 596 200 - 950 cells/uL [facility] Eosinophils Absolute 214 15 - 500 cells/uL [facility] Basophils Absolute 71 0 - 200 cells/uL [facility] Neutrophils Relative 74.5 % [facility] Lymphocytes 15.6 % [facility] Monocytes 6.7 % [facility] Eosinophils 2.4 % [facility] Basophils Relative 0.8 % [facility] 09/16/2025 09/15/2025 1:1 3 PM ASSOCIATION EXECUTIVE Narrative Resulting Agency Comment Performing Organization Information: Site ID: MARLEN Name: [facility] Address: [address] [place] [phone] Director: Luz Lang MD Angélica Ny MD LAB BLOOD ORDERABLES Final Re sult Performing Organization Address [facility] Co de Phone Number [facility] [address] [place] [phone] * Platelet count (09/16/2025) Only the most recent of2 resultswithin the time period is included. Platelets 247 140 - 400 Thousand/uL [facility] 09/16/2025 09/15/2025 1:1 3 PM ASSOCIATION EXECUTIVE Narrative Resulting Agency Comment Performing Organization Information: Site ID: MARLEN Name: [facility] Address: [address] [place] [phone] Director: Luz Lang MD Angélica Ny MD LAB BLOOD ORDERABLES Final Re sult Performing Organization Address [facility] Number [facility] [address] [place] [phone] * (ABNORMAL) CBC (09/16/2025) Only the most recent of2 resultswithin the time period is included. WBC 8.9 3.8 - 10.8 Thousand/u L [facility] RBC 3.02(L) 4.20 - 5.80 Million/uL [facility] Hemoglobin 9.4(L) 13.2 - 14.0 g/dL [facility] Hematocrit 29.1(L) 39.4 - 51.1 % [facility] MCV 96.4 81.4 - 101.7 fL [facility] MCH 31.1 27.0 - 33.0 pg [facility] MCHC 32.3 31.6 - 35.4 g/dL [facility] Comment: For adults, a slight decrease in the calculated MCHC value (in the range of 30 to 32 g/dL) is most likely not clinically significant; however, it should be interpreted with caution in correlation with other red cell parameters and the patient's clinical condition. RDW 15.8(H) 11.0 - 15.0 % [facility] 09/16/2025 09/15/2025 1:1 3 PM ASSOCIATION EXECUTIVE Narrative Resulting Agency Comment Performing Organization Information: Site ID: MARLEN Name: [facility] Address: [address] [place] [phone] Director: Luz Lang MD Angélica Ny MD LAB BLOOD ORDERABLES Final Re sult Performing Organization Address [facility] Co de Phone Number [facility] [id number] [place] [phone] * (ABNORMAL) BUN (09/16/2025) Only the most recent of4 resultswithin the time period is included. BUN 45(H) 7 - 25 mg/dL [facility] 09/16/2025 09/15/2025 1:1 3 PM ASSOCIATION EXECUTIVE Narrative Resulting Agency Comment Performing Organization Information: Site ID: MARLEN Name: [facility] Address: [address] [place] [phone] Director: Luz Lang MD us Angélica Ny MD LAB BLOOD ORDERABLES Final Re sult Performing Organization Address [facility] Co de Phone Number [facility] [address] [place] [address] * Sodium (09/16/2025) Only the most recent of2 resultswithin the time period is included. Sodium 135 135 - 146 mmol/L [facility] 09/16/2025 09/15/2025 1:1 3 PM ASSOCIATION EXECUTIVE Narrative Resulting Agency Comment Performing Organization Information: Site ID: MARLEN Name: [facility] Address: [address] [place] [phone] Director: Luz Lang MD Angélica Ny MD LAB BLOOD ORDERABLES Final Re sult Performing Organization Address [facility]/ZIP Co de Phone Number [facility] [address] [place] [phone] * Protein, total (09/16/2025) Only the most recent of2 resultswithin the time period is included. Total Protein 6.5 6.1 - 8.1 g/dL [facility] 09/16/2025 09/15/2025 1:1 3 PM ASSOCIATION EXECUTIVE Narrative Resulting Agency Comment Performing Organization Information: Site ID: MAR[place] Name: [facility] Address: [address] [place] [phone] Director: Luz Lang MD us Angélica Ny MD LAB BLOOD ORDERABLES Final Re sult Performing Organization Address [facility] Co de Phone Number [facility] [address] [place] [phone] * (ABNORMAL) Phosphorus (09/16/2025) Only the most recent of2 resultswithin the time period is included. Phosphorus 10.1(H) 3.0 - 4.5 mg/dL [facility] Comment: Verified by repeat analysis. 09/16/2025 09/15/2025 1:1 3 PM ASSOCIATION EXECUTIVE Narrative Resulting Agency Comment Performing Organization Information: Site ID: MARLEN Name: [facility] Address: [address] [place] [phone] Director: Luz Lang MD us Angélica Ny MD LAB BLOOD ORDERABLES Final Re sult Performing Organization Address [facility] Co de Phone Number [facility] [address] [place] [address] * Alkaline phosphatase (09/16/2025) Alkaline Phosphatase 89 36 - 130 U/L [facility] 09/16/2025 09/15/2025 1:1 3 PM ASSOCIATION EXECUTIVE Narrative Resulting Agency Comment Performing Organization Information: Site ID: MARLEN Name: [facility] Address: [address] [place] [phone] Director: Luz Lang MD us Angélica Ny MD LAB BLOOD ORDERABLES Final Re sult Performing Organization Address [facility] de Phone Number [facility] [id number] [place] [phone] * (ABNORMAL) PTH, Intact (09/16/2025) Parathyroid Hormone, Intact 250(H) 16 - 77 pg/mL [facility] Comment: Interpretive Guide Intact PTH Calcium ------- Normal Parathyroid Normal Normal Hypoparathyroidism Low or Low Normal Low Hyperparathyroidism Primary Normal or High High Secondary High Normal or Low Tertiary High High Non-Parathyroid Hypercalcemia Low or Low Normal High 09/16/2025 09/15/2025 1:1 3 PM ASSOCIATION EXECUTIVE Narrative Resulting Agency Comment Performing Organization Information: Site ID: MARLEN Name: [facility] Address: [address] [place] [phone] Director: Luz Lang MD us Angélica Ny MD LAB BLOOD ORDERABLES Final Re sult Performing Organization Address [facility] Co de Phone Number [facility] [address] [place] [address] * Magnesium (09/16/2025) Pathologist [facility] Magnesium 2.4 1.6 - 2.5 mg/dL [facility] 09/16/2025 09/15/2025 1:1 3 PM ASSOCIATION EXECUTIVE Narrative Resulting Agency Comment Performing Organization Information: Site ID: MARLEN Name: [facility] Address: [address] [place] [phone] Director: Luz Lang MD Angélica Ny MD LAB BLOOD ORDERABLES Final Re sult Performing Organization Address [facility] de Phone Number [facility] [address] [place] [phone] * (ABNORMAL) Hemoglobin A1c (09/16/2025) Pathologist [facility] Hemoglobin A1C 5.8(H) <5.7 % [facility] Comment: For someone without known diabetes, a hemoglobin A1c value between 5.7% and 6.4% is consistent with prediabetes and should be confirmed with a follow-up test. For someone with known diabetes, a value <7% indicates that their diabetes is well controlled. A1c targets should be individualized based on duration of diabetes, age, comorbid conditions, and other considerations. This assay result is consistent with an increased risk of diabetes. Currently, no consensus exists regarding use of hemoglobin A1c for diagnosis of diabetes for children. 09/16/2025 09/15/2025 1:1 3 PM ASSOCIATION EXECUTIVE Narrative Resulting Agency Comment Performing Organization Information: Site ID: MAR[place] Name: [facility] Address: [address] [facility] [place] [address] Director: Luz Lang MD Angélica Ny MD LAB BLOOD ORDERABLES Final Re sult Performing Organization Address [facility] Co de Phone Number [facility] [address] [place] [address] [place] [address] * (ABNORMAL) Glucose, random (09/16/2025) Only the most recent of2 resultswithin the time period is included. Glucose 153(H) 65 - 99 mg/dL [facility] Comment: For someone without known diabetes, a glucose value >125 mg/dL indicates that they may have diabetes and this should be confirmed with a follow-up test. 09/16/2025 09/15/2025 1:1 3 PM ASSOCIATION EXECUTIVE Narrative Resulting Agency Comment Performing Organization Information: Site ID: MARLEN Name: [facility] Address: [address] [place] [phone] Director: Luz Lang MD Angélica Ny MD LAB BLOOD ORDERABLES Final Re sult Performing Organization Address [facility] Co de Phone Number [facility] Carlita [address] [address] * (ABNORMAL) Ferritin (09/16/2025) Ferritin 525(H) 38 - 380 ng/mL [facility] 09/16/2025 09/15/2025 1:1 3 PM ASSOCIATION EXECUTIVE Narrative Resulting Agency Comment Performing Organization Information: Site ID: MARLEN Name: [facility] Address: [address] [place] [phone] Director: Luz Lang MD Angélica Ny MD LAB BLOOD ORDERABLES Final Re sult Performing Organization Address City/[facility]/ZIP Co de Phone Number [facility] [address] [phone] * (ABNORMAL) Creatinine, serum (09/16/2025) Only the most recent of2 resultswithin the time period is included. Creatinine 7.11(H) 0.60 - 1.26 mg/dL [facility] 09/16/2025 09/15/2025 1:1 3 PM ASSOCIATION EXECUTIVE Narrative Resulting Agency Comment Performing Organization Information: Site ID: MARLEN Name: [facility]iz Address: [address] [place] [phone] Director: Luz Lang MD us Angélica Ny MD LAB BLOOD ORDERABLES Final Re sult Performing Organization Address City/[facility] Co de Phone Number [facility] [address] [place] [phone] * (ABNORMAL) Chloride (09/16/2025) Only the most recent of2 resultswithin the time period is included. Chloride 95(L) 98 - 110 mmol/L [facility] 09/16/2025 09/15/2025 1:1 3 PM ASSOCIATION EXECUTIVE Narrative Resulting Agency Comment Performing Organization Information: Site ID: MARLEN Name: Carlita Khana Address: [address] [place] [phone] Director: Luz Lang MD us Angélica Ny MD LAB BLOOD ORDERABLES Final Re sult Performing Organization Address [facility] de Phone Number [facility] [address] [place] [phone] * CO2 (09/16/2025) Only the most recent of2 resultswithin the time period is included. Bicarbonate (CO2) 24 20 - 29 mmol/L [facility] 09/16/2025 09/15/2025 1:1 3 PM ASSOCIATION EXECUTIVE Narrative Resulting Agency Comment Performing Organization Information: Site ID: MARLEN Name: Carlita Khana Address: [address] [place] [phone] Director: Luz Lang MD us Angélica Ny MD LAB BLOOD ORDERABLES Final Re sult Performing Organization Address [facility] Co de Phone Number [facility] [address] [place] [phone] * (ABNORMAL) Calcium (09/16/2025) Only the most recent of2 resultswithin the time period is included. Calcium 8.1(L) 8.6 - 10.0 mg/dL [facility] 09/16/2025 09/15/2025 1:1 3 PM ASSOCIATION EXECUTIVE Narrative Resulting Agency Comment Performing Organization Information: Site ID: [facility] Address: [address] [place] [phone] Director: Luz Lang MD Angélica Ny MD LAB BLOOD ORDERABLES Final Re sult Performing Organization Address [facility] de Phone Number [facility] [phone] * Albumin (09/16/2025) Only the most recent of2 resultswithin the time period is included. Albumin 3.7 3.6 - 5.1 g/dL [facility] 09/16/2025 09/15/2025 1:1 3 PM ASSOCIATION EXECUTIVE Narrative Resulting Agency Comment Performing Organization Information: Site ID: [facility]LEN Name: [facility] Address: [address] [place] [phone] Director: Luz Lang MD Angélica Ny MD LAB BLOOD ORDERABLES Final Re sult Performing Organization Address [facility] Co de Phone Number [facility] [address] [place] [phone] * (ABNORMAL) HEMATOLOGY (08/12/2025) Only the most recent of7 resultswithin the time period is included. Hemoglobin 9.1(L) 14.0 - 18.0 g/dL [facility] Hemoglobin x 3 27.3(L) 42.0 - 54.0 % [facility] 08/12/2025 08/13/2025 8:5 3 AM CDT Narrative [facility] - 08/13/2025 Unless otherwise specified, test(s) performed at: [facility], [address] [place] [address] AUTOMATIC GLUING MACHINE OPERATOR: Ulises De Paz M.D. For any questions, please call customer service at FREQUENCY:OTHER Resulting Agency Comment Specimen source: Blood us Angélica Ny MD LAB BLOOD ORDERABLES Final Re sult Performing Organization Address [facility] de Phone Number [facility] ([facility]) See order comments or contact performing lab Unknown, [place] * [facility] Chemistry (08/05/2025) Only the most recent of2 resultswithin the time period is included. Potassium 5.1 3.5 - 5.1 mEq/L [facility] 08/05/2025 08/06/2025 9:1 7 AM CDT Narrative [facility] - 08/06/2025 Unless otherwise specified, test(s) performed at: [facility], [address] [place] [address] AUTOMATIC GLUING MACHINE OPERATOR: Ulises De Paz M.D. For any questions, please call customer service at FREQUENCY:OTHER Resulting Agency Comment Specimen source: Serum us Angélica Ny MD LAB BLOOD ORDERABLES Final Re sult Performing Organization Address [facility] de Phone Number [facility] ([facility]) See order comments or contact performing lab Unknown, [place] * HD KINETICS (07/15/2025) % Urea Reduction 74 65 - 80 % [facility] 07/15/2025 07/16/2025 11: 23 AM CDT Narrative Resulting Agency Comment Specimen source: Plasma us Angélica Ny MD LAB BLOOD ORDERABLES Final Re sult [facility] See order comments or contact performing lab Unknown, [place] * POST CHEMISTRY (07/15/2025) BUN Post Dialysis 12 6 - 19 mg/dL [facility] 07/15/2025 07/16/2025 11: 23 AM CDT Narrative [facility] - 07/16/2025 Unless otherwise specified, test(s) performed at: [facility], [address] [place] [id number] AUTOMATIC GLUING MACHINE OPERATOR: Ulises De Paz M.D. For any questions, please call customer service at FREQUENCY:MONTHLY Resulting Agency Comment Specimen source: Plasma us Angélica Ny MD LAB BLOOD ORDERABLES Final Re sult Performing Organization Address City/[facility]/ZIP Co de Phone Number [facility] See order comments or contact performing lab Unknown, [place] from Last 3 Months Insurance Medicaid [place] ([id number]) [facility] Medicare Care Teams Feed Mixer Helper Relationship Specialty Start Date End Date Duke Alarcon MD [address] [phone] PCP - General Family Medicine 08/12/24
--- OUTSIDE RECORDS SUMMARY | 2025-09-25 16:53 | XMS_ITS | Encounter Summary ---
Author Organization [facility] Address [address] [place] [address] Care Team Providers Care Roundhouse Worker Name Role Phone Duke Alarcon MD Primary Care Provider [phone] Encounter Details Date Type Department Care Team (Late st Contact Info) Description 09/20/2025 Orders Only [facility] [address] [place] [address] Provider, Abstract NO ADDRESS ON FILE Social [...] worry about transportation for future doctor visits, pickler helper medication, etc.? 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 Author Heart Failure Goal Care Plan Heart Failure Problem No Faye Denny documented as of this encounter Procedures Procedure Name Priority Date/Time Associated Diagnosis Comments COMPREHENSIVE METABOLIC PANEL Routine 09/18/2025 4:11 PM ELEMENTARY SCHOOL SCIENCE TEACHER documented in this encounter Results * COMPREHENSIVE METABOLIC PANEL (09/18/2025 4:11 PM ELEMENTARY SCHOOL SCIENCE TEACHER) Blood us Abstract Provider CHEMISTRY ORDERABLES Final Res ult documented in this encounter Visit Diagnoses Not on filedocumented in this encounter Additional Health Concerns Active Problems Noted Date Diagnosed Date Heart Failure Problem 08/18/2025 documented as of this encounter Care Teams Roundhouse Worker Relationship Specialty Start Date End Date Duke Alarcon MD [address] [place] [phone] PCP - General Family Practice 08/10/24 documented as of this encounter
--- OUTSIDE RECORDS SUMMARY | 2025-09-25 16:53 | XMS_ITS | Encounter Summary ---
Author Organization [facility] Address [address] [place] [address] Care Team Providers Care Blindstitch Hemmer Name Role Phone uDke Alarcon MD Primary Care Provider [phone] Encounter Details Date Type Department Care Team (Late st Contact Info) Description 09/21/2025 Orders Only [facility] [address] [place] [address] Provider, Abstract NO ADDRESS ON [...] worry about transportation for future doctor visits, excelsior picker medication, etc.? 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 Author Heart Failure Goal Care Plan Heart Failure Problem No Faye Denny documented as of this encounter Procedures Procedure Name Priority Date/Time Associated Diagnosis Comments COMPREHENSIVE METABOLIC PANEL Routine 09/19/2025 2:09 PM CONSULTING GROUP ANALYST documented in this encounter Results * COMPREHENSIVE METABOLIC PANEL (09/19/2025 2:09 PM CONSULTING GROUP ANALYST) Blood us Abstract Provider CHEMISTRY ORDERABLES Final Res ult documented in this encounter Visit Diagnoses Not on filedocumented in this encounter Additional Health Concerns Active Problems Noted Date Diagnosed Date Heart Failure Problem 08/18/2025 documented as of this encounter Care Teams Blindstitch [place] Relationship Specialty Start Date End Date Duke Alarcon MD [address] [place] [phone] PCP - General Family Practice 08/10/24 documented as of this encounter
--- OUTSIDE RECORDS SUMMARY | 2025-09-25 16:53 | XMS_ITS | Encounter Summary ---
Author Organization [facility] Address [address] [place] [address] Care Team Providers Care Customer Trainer Name Role Phone Duke Alarcon MD Primary Care Provider [phone] Encounter Details Date Type Department Care Team (Late st Contact Info) Description 09/21/2025 Abstract [facility] [address] [phone] Duke Alarcon MD [address] [phone] Social History Tobacco Use Types [...] worry about transportation for future doctor visits, pickling tank operator medication, etc.? 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 Author Heart Failure Goal Care Plan Heart Failure Problem No Faye Denny documented as of this encounter Procedures Procedure Name Priority Date/Time Associated Diagnosis Comments HEMOGLOBIN A1C Routine 09/19/2025 LIPID PANEL Routine 09/19/2025 documented in this encounter Results * LIPID PANEL (09/19/2025) ABSTRACTED CHOLESTEROL 161 ABSTRACTED TRIGLYCERIDE 109 ABSTRACTED HDL 37 ABSTRACTED LDL CALCULATED 102 Blood 09/19/2025 us Abstract Provider CHEMISTRY ORDERABLES Final Res ult * HEMOGLOBIN A1C (09/19/2025) ABSTRACTED HGB A1C 5.4 % Blood 09/19/2025 us Abstract Provider CHEMISTRY ORDERABLES Final Res ult documented in this encounter Visit Diagnoses Not on filedocumented in this encounter Additional Health Concerns Active Problems Noted Date Diagnosed Date Heart Failure Problem 08/18/2025 documented as of this encounter Care Teams Customer Trainer Relationship Specialty Start Date End Date Duke Alarcon MD [address] [phone] PCP - General Family Practice 08/10/24 documented as of this encounter
--- OUTSIDE RECORDS SUMMARY | 2025-09-25 16:53 | XMS_ITS | Encounter Summary ---
Author Organization [facility], [facility] Address [address] [place] [address] Phone Care Team Providers Care Novelty Twister Tender Name Role Phone Duke Alarcon MD Primary Care Provider [phone] Encounter Details Date Type Department Care Team (Late st Contact Info) Description 01/12/2025 TCM [facility] D[facility] [address] [place] [address] Sixto Waller COCOA PRESS OPERATOR [address] [place] [address] Social History Tobacco Use Types [...] 01/12/2025 The patient was seen for a ilfm-tf-[id number] visit as part of Transitional Care Management services. Primary cause of renal failure: E10.22 - Type 1 diabetes mellitus with diabetic chronic kidney disease Attending Coal Washer Tender: HODAN VALERA Dialysis Location: [facility] Schedule: Shift: 2 INTERACTIVE CONTACT [...] 0.5 mg tablet Take as directed. Current [facility] Allergies Allergen: DAVID INHIBITORS Reaction: Cardiac Arrest [...] 97.8*F Current Dialysis Vitals BP Sit: 201/131 AP/ICT TRAINER: -- Pulse: 110 CARE COORDINATION No follow-up appointments noted. IMPRESSION & PLAN COMMENTS: ESRD requiring dialysis. Continue TTS. Hypertension. continue amlodipine, clonidine 0.2 mg 3 times a day, carvedilol 25 mg, spironolactone 25 mg and we will add hydralazine 50 mg twice a day VISIT DIAGNOSES CPT Code 60623 - High complexity, seen within 7 days [...] on filedocumented in this encounter Care Teams Novelty Twister Tender Relationship Specialty Start Date End Date Duke Alarcon MD [address] [phone] PCP - General Family Medicine 08/12/24 documented as of this encounter
--- OUTSIDE RECORDS SUMMARY | 2025-09-25 16:53 | XMS_ITS | Encounter Summary ---
Author Organization [facility], [facility] Address [address] [place] [address] Phone Care Team Providers Care Real Estate Administrative Assistant Name Role Phone Duke Alarcon MD Primary Care Provider [phone] Encounter Details Date Type Department Care Team (Late st Contact Info) Description 04/20/2025 TCM in Dialysis Clinic [facility] [address] [place] [address] Jacki Gill NP [address] [place] [address] Social History Tobacco Use Types [...] 04/20/2025 The patient was seen for a stwp-se-gkiy visit as part of Transitional Care Management services. Primary cause of renal failure: E10.22 - Type 1 diabetes mellitus with diabetic chronic kidney disease Attending Finish Machine Tender: HODAN VALERA Dialysis Location: [facility] Schedule: Shift: 2 HOSPITALIZATION SUMMARY [...] with patient, and discussed maintaining compliance Current [facility] Outpatient Medications Abilify 5 mg tablet Take [...] patient or caregiver VISIT DIAGNOSES CPT Code 84285 - High complexity, seen 8-14 days post discharge or moderate complexity, seen days of discharge. I16.0 Hypertensive urgency COMMENTS: [...] on filedocumented in this encounter Care Teams Real Estate Administrative Assistant Relationship Specialty Start Date End Date Duke Alarcon MD [address] [phone] PCP - General Family Medicine 08/12/24 documented as of this encounter
[2025-09-25 16:59] LABS: Hematocrit 28.0 % (37-53); Hemoglobin 9.50 g/dL (11.27-16.99); Mean Corpuscular HGB Conc 33.9 g/dL (30-55); Mean Corpuscular Hemoglobin 30.6 pg (27-33); Mean Corpuscular Volume 90.3 fl (82-101); Nucleated Red Blood Cells % 0 %; Platelet Count 296 10^3/cmm (157-399); Red Blood Count 3.10 10^6/uL (3.85-5.65); White Blood Count 6.85 10^3/uL (3.29-11.43)
[2025-09-25] MEDS: HYDROmorphone 0.5 MG/0.5 ML INJ 1 MG IVP (17:23)
[2025-09-25] MEDS: ondansetron 2 mg/ML SDV 2 mL 4 MG IVP ×2 (17:23→20:55)
[2025-09-25 17:34] LABS: Alanine Aminotransferase 11 U/L (0-41); Albumin Level 4.4 g/dL (3.5-5.2); Alkaline Phosphatase 90 U/L (40-130); Anion Gap 24.4 (5-19); Aspartate Amino Transferase 17 U/L (0-40); Blood Urea Nitrogen 32 mg/dL (6-20); Calcium 9.4 mg/dL (8.5-10.5); Carbon Dioxide 29 mmol/L (22-29); Chloride 87 mmol/L (98-107); Globulin 2.9 g/dL (1.3-4.6); Glucose 109 mg/dL (65-115); Magnesium 2.5 mg/dL (1.7-2.3); Osmolality Calculated 287 mOsm/kg (285-295); Potassium 5.4 mmol/L (3.5-5.1); Sodium 135 mmol/L (136-145); Total Protein 7.3 g/dL (6.6-8.7)
[2025-09-25 17:35] LABS: Troponin(5th) Baseline 283 ng/L (0-15)
--- NOTE | 2025-09-25 17:48 | ECG_ITS ---
[facility] 2025-09[facility]25 Pat Name: Hunter San Department: Room: Gender: Male Cavity Pump Operator: : 1990 Requested By: Lázaro Lowery Order Number: [id number] Bashir MD: Ronald Tony M.D. Measurements Intervals Newcomb Rate: 87 P: 61 MT: 152 QRS: 39 QRSD: 94 T: 103 QT: 395 QTc: 476 Interpretive Statements SINUS RHYTHM POSSIBLE LEFT ATRIAL ENLARGEMENT [-0.1mV P-WAVE IN V1/V2] ABNORMAL QRS-T ANGLE [QRS-T AXIS DIFFERENCE > 60], POSSIBLE ISCHEMIA Compared to ECG 09/25/2025 16:47:01 No significant changes Electronically Signed On 09-25-2025 19:55:42 STEELWORKER by Ronald Tony M.D. [email or web address]
[2025-09-25 18:03] LABS: NT Pro B Type Natriuretic Pept 35581 pg/mL (0-125)
[2025-09-25] MEDS: hyDRALAzine 20 mg/mL INJ 1 mL IVP (20:55)
[2025-09-25] MEDS: HYDROmorphone 0.5 MG/0.5 ML INJ IVP (21:00)
--- NOTE | 2025-09-25 21:06 | W.ED.CHESTPA ---
Documented by User: ZURDO Jackson 09/26/25 13:06 HPI - Chest Pain General: Chief Complaint: Chest Pain Stated Complaint: chest pain Source: patient, EMS and old records reviewed Mode of arrival: EMS Limitations: no limitations History of Present Illness: Patient is a 34-year-old male who presents emergency department by ambulance for chest pain. He missed dialysis today stating he did not have a ride, he most recently missed dialysis appointment on 09/18 was seen in the emergency department found to have significant elevation of potassium 6.8, he subsequently attended his to next dialysis appointments but missed today and was told to go to the ER by primary care due to possibly having high potassium again. He notes that the chest pain he has is chronic and he has it every time he needs dialysis, most recently had cardiac cath here in June that did not show any diseased arteries, he does have a history of heart failure. Arrives hypertensive he states that this is not new for him, typically blood pressure runs as high currently at triage 198/92. Chronically is on 2 to 4 L of oxygen, does not endorse any new shortness of breath or new oxygen requirements. He states that he thinks he just needs dialysis. Was given Zofran prehospital he is currently requesting more nausea meds and pain meds at this time. MD complaint: chest pain Prior episodes: Yes Pain location: left chest Pain radiation: none Context: non compliance with medication (Missing dialysis) Associated symptoms: Reports nausea; Deny abdominal pain, dyspnea, fever(s), palpitations or vomiting Related Data Home Medications ?Medication ?Instructions ?Recorded ?Confirmed blood-glucose sensor ([employer] G7 #1 ea 10/21/23 09/18/25 Sensor device) bupropion HCl 150 mg 24 hr tablet, 150 mg PO DAILY 11/06/24 09/18/25 extended release epinephrine 0.3 mg/0.3 mL See Rx Instructions .Route .COMPLEX 11/06/24 09/18/25 injection, auto-injector aripiprazole 5 mg tablet 5 mg PO DAILY 04/12/25 09/18/25 aspirin 81 mg tablet,delayed 81 mg PO DAILY 04/12/25 09/18/25 release gabapentin 100 mg capsule 200 mg PO TID 04/12/25 09/18/25 ondansetron 4 mg disintegrating 4 mg PO Q6H PRN nausea/emesis 04/12/25 09/18/25 tablet albuterol sulfate 90 mcg/actuation 2 puff inhalation Q6H PRN 06/15/25 09/18/25 aerosol inhaler (Ventolin HFA) Shortness Of Breath insulin glargine 100 unit/mL (3 25 unit SUBCUT BID 06/15/25 09/18/25 mL) subcutaneous pen (Lantus Solostar U-100 Insulin) isosorbide mononitrate 30 mg 30 mg PO DAILY 06/15/25 09/18/25 tablet,extended release 24 hr naloxone 4 mg/actuation nasal spray See Rx Instructions .Route .COMPLEX 06/15/25 09/18/25 sevelamer carbonate 800 mg tablet 1,600 mg PO TID 06/15/25 09/18/25 amlodipine 10 mg tablet 10 mg PO DAILY 09/18/25 09/18/25 clonidine 0.2 mg/24 hr weekly 1 patch topical Q7D 09/18/25 09/18/25 transdermal patch hydralazine 100 mg tablet 100 mg PO Q8H 09/18/25 09/18/25 morphine 15 mg immediate release 15 mg PO Q8H PRN Pain 09/18/25 09/18/25 tablet Previous Rx's ?Medication ?Instructions ?Recorded Intraoperative Neuromonitoring #1 ea 08/22/22 insulin syringe-needle U-100 1 mL #100 ea 06/27/23 31 gauge x 5/16 (BD Insulin Syringe Ultra-Fine) pen needle, diabetic 32 gauge x #100 ea 06/27/23 1/4 (BD Ultra-Fine Micro Pen Needle) blood sugar diagnostic (True #100 ea 10/04/23 Metrix Glucose Test Strip) blood-glucose meter (True Metrix #1 ea 10/04/23 Air Glucose Meter kit) lancets 31 gauge #100 ea 10/04/23 bumetanide 1 mg tablet 1 mg PO DAILY #30 tabs 04/14/25 insulin lispro 100 unit/mL See Rx Instructions .Route 04/14/25 subcutaneous pen (Humalog KwikPen .COMPLEX #15 mL (U-100) Insulin) ferrous gluconate 324 mg (37.5 mg 324 mg PO BID #60 tabs 06/18/25 iron) tablet carvedilol 12.5 mg tablet 12.5 mg PO BID #60 tabs 09/19/25 sodium zirconium cyclosilicate 5 10 g PO DAILY #60 ea 09/19/25 gram oral powder packet (Lokelma) Allergies Allergy/AdvReac Type Severity Reaction Status Date / Time bee venom protein (honey bee) Allergy Unknown Verified 08/17/25 07:40 lisinopril Allergy Unknown Verified 08/17/25 07:40 Review of Systems General: Reports: 10 or more systems reviewed and unremarkable except in HPI and below Const: Denies: fever(s), chills or fatigue Eyes: Denies: change in vision ENMT: Denies: throat pain, ear or mastoid pain or nasal discharge Card: Reports: chest pain; Denies: palpitations, swelling of feet/ankles or lightheadedness Resp: Denies: dyspnea, productive cough or wheezing GI: Reports: nausea; Denies: abdominal pain, vomiting, diarrhea or constipation : Denies: flank pain, difficulty urinating, dysuria or urinary frequency Musc: Denies: neck pain, back pain or joint pain Skin/Breast: Denies: rash Neuro: Denies: headache(s), numbness in extremities or weakness in extremities PFSH ED PFSH: Medical History Hypertensive urgency End stage renal disease on dialysis due to type 1 diabetes mellitus Chronic left-sided low back pain with left-sided sciatica Type 1 diabetes End stage renal disease on dialysis Opiate dependence Other stimulant abuse, uncomplicated Waking at night short of breath Snoring Hypersomnia Insomnia Noncompliance w/medication treatment due to intermit use of medication Schizophrenia Methamphetamine abuse Uncontrolled hypertension Family History Other CAD (coronary artery disease) Hypertension Stroke Social History Smoking and tobacco/nicotine status: current every day tobacco/nicotine user Alcohol intake: former Substance/Drug Use: former Date of last use: Amphetamines more than 62 days ago Caregiver/support person: Yes Lives independently: Yes Household members: other Current occupation: [employer] Physical Exam Const: COMMON NORMALS: no acute distress, patient oriented x3 and no limitations GENERAL APPEARANCE: cooperative, comfortable and well developed ORIENTATION/CONSCIOUSNESS: Yes awake, Yes oriented to person, Yes oriented to place and Yes oriented to time HENMT: COMMON NORMALS: normocephalic, atraumatic and hearing grossly normal bilaterally HEAD & SCALP: normocephalic and atraumatic Eye: COMMON NORMALS: Equal, round and reactive pupils present, EOMs intact bilaterally and conjunctivae normal CONJUNCTIVA: Yes conjunctivae normal PUPIL: Yes Equal, round and reactive pupils present Neck/C-Spine: COMMON NORMALS: full ROM, supple and no JVD Resp: COMMON NORMALS: normal respiratory effort, No retractions, No use of accessory muscles and clear to auscultation bilaterally AUSCULTATION: clear to auscultation bilaterally Cardio: COMMON NORMALS: no JVD, regular rate, regular rhythm, No clicks present (Cardio), No murmurs present (Cardio) and No rub (Cardio) RATE: regular rate RHYTHM: regular rhythm GI: COMMON NORMALS: Normal to inspection, nondistended, normoactive bowel sounds present, Soft to palpation and non-tender AUSCULTATION: Yes normoactive bowel sounds PALPATION: Yes Soft to palpation RECTAL EXAM: Yes deferred Extremity: COMMON NORMALS: normal to inspection, full ROM and capillary refill normal Neuro: COMMON NORMALS: patient oriented x3, moves all extremities, no focal motor deficits and no sensory deficits noted SENSORIUM/ORIENTATION: Yes oriented to person, Yes oriented to place and Yes oriented to time Skin: COMMON NORMALS: no rashes or lesions noted GENERAL SKIN EXAM: no rashes or lesions noted Course Vital Signs: Vital signs: Vital Signs Temperature 98.1 F 09/25/25 16:46 Pulse Rate 86 09/25/25 21:37 Respiratory Rate 17 09/25/25 19:02 Blood Pressure 176/88 09/25/25 21:37 Pulse Oximetry 95 09/25/25 21:37 Oxygen Delivery Me thod Room Air 09/25/25 19:02 Oxygen Flow Rate 3 09/25/25 18:00 MDM - Chest Pain Medical Decision Making Patient brought in by medics for continued left chest pain he was admitted here a week ago for similar chest pain but ultimately required the admission for emergent dialysis with potassium of 6.8. He missed dialysis again today, chest pain has been going on still and presented as instructed by his doctor for evaluation of recurrent hyperkalemia. His vitals have been stable for him, he is chronically hypertensive and he states that he also did not take his blood pressure medications this evening. Chronically is on 2 to 4 L of oxygen has not required any more here in the ED. Chest x-ray showing cardiomegaly worsening effusion, his troponin is chronically elevated and is 283 today with baseline but there is negative delta. BNP significant elevated as well which is also chronic. His potassium today is 5.4, creatinine elevated as would be expected with him missing his dialysis, he is Saturday and his next appointment would be on Saturday. I spoke to hospitalist in regards to admission for dialysis but again not likely necessary at this time secondary to potassium 5.4. Instead encouraged him to follow-up on Saturday for dialysis and he will return if he gets worse. I spoke to Dr. Velazquez about this plan who also agrees with outpatient as opposed to emergent dialysis admission at this time. His previous hospital workup was reviewed in its entirety as well as his previous cardiac interventions, no need for cardiac consultation or further workup at this point of time. Lab Data 09/25/25 16:50 09/25/25 16:50 Radiology Impressions Chest X-Ray 09/25/25 16:45 IMPRESSION: Worsening cardiomegaly on this patient with known pericardial effusion, on the above referenced CT scan. Laboratory Results WBC 6.85 10^3/uL (3.29-11.43) 09/25/25 16:50 RBC 3.10 10^6/uL (3.85-5.65) L 09/25/25 16:50 Hgb 9.50 g/dL (11.27-16.99) L 09/25/25 16:50 Hct 28.0 % (37-53) L 09/25/25 16:50 MCV 90.3 fl (82-101) 09/25/25 16:50 MCH 30.6 pg (27-33) 09/25/25 16:50 MCHC 33.9 g/dL (30-55) 09/25/25 16:50 RDW 14.6 % (12.1-15.1) 09/25/25 16:50 Plt Count 296 10^3/cmm (157-399) 09/25/25 16:50 MPV 9.7 fL (7.4-10.4) 09/25/25 16:50 Neut % (Auto) 75.8 % 09/25/25 16:50 Lymph % (Auto) 12.4 % 09/25/25 16:50 [place] % (Auto) 9.2 % 09/25/25 16:50 Eos % (Auto) 1.0 % 09/25/25 16:50 Baso % (Auto) 1.3 % 09/25/25 16:50 Neut # (Auto) 5.19 10^3/uL (1.8-7.7) 09/25/25 16:50 Lymph # (Auto) 0.9 10^3/uL (0.8-4.8) 09/25/25 16:50 [place] # (Auto) 0.6 10^3/uL (0.2-0.9) 09/25/25 16:50 Eos # (Auto) 0.1 10^3/uL (0.0-0.8) 09/25/25 16:50 Baso # (Auto) 0.1 10^3/uL (0.0-0.1) 09/25/25 16:50 Nucleated RBC % (auto) 0 % 09/25/25 16:50 Nucleated RBCs # 0.0 /100WBC 09/25/25 16:50 Sodium 135 mmol/L (136-145) L 09/25/25 16:50 Potassium 5.4 mmol/L (3.5-5.1) H 09/25/25 16:50 Chloride 87 mmol/L (98-107) L 09/25/25 16:50 Carbon Dioxide 29 mmol/L (22-29) 09/25/25 16:50 Anion Gap 24.4 (5-19) H 09/25/25 16:50 BUN 32 mg/dL (6-20) H 09/25/25 16:50 Creatinine 8.2 mg/dL (0.7-1.2) H* 09/25/25 16:50 GFR Calculation 7.5 mL/min (90-130) L 09/25/25 16:50 Glucose 109 mg/dL (65-115) 09/25/25 16:50 Calculated Osmolality 287 mOsm/kg (285-295) 09/25/25 16:50 Calcium 9.4 mg/dL (8.5-10.5) 09/25/25 16:50 Magnesium 2.5 mg/dL (1.7-2.3) H 09/25/25 16:50 Total Bilirubin 0.7 mg/dL (0.15-1.2) 09/25/25 16:50 AST 17 U/L (0-40) 09/25/25 16:50 ALT 11 U/L (0-41) 09/25/25 16:50 Alkaline Phosphatase 90 U/L (40-130) 09/25/25 16:50 Troponin T Baseline 283 ng/L (0-15) H* 09/25/25 16:50 Troponin T 60 Minute 278.7 ng/L (0-15) H 09/25/25 18:03 Delta Troponin T -4.3 ABS# (0-10) L 09/25/25 18:03 NT-Pro-B Natriuret Pep 90612 pg/mL (0-125) H 09/25/25 16:50 Total Protein 7.3 g/dL (6.6-8.7) 09/25/25 16:50 Albumin 4.4 g/dL (3.5-5.2) 09/25/25 16:50 Globulin 2.9 g/dL (1.3-4.6) 09/25/25 16:50 All radiology interpretation(s) finalized by discharge Discharge Plan Discharge Patient Disposition: Home Clinical Impression: ESRD on hemodialysis Chest pain Qualifiers: Chest pain type: unspecified Qualified Code(s): R07.9 - Chest pain, unspecified Condition: Stable Prescriptions: No Action (DME) blood-glucose meter [True Metrix Air Glucose Meter] Kit See Rx Instructions .Route Qty: 1 0RF Rx Instructions: As directed (DME) True Metrix Glucose Test Strip Strip See Rx Instructions .Route Qty: 100 0RF Rx Instructions: As directed (DME) lancets 31 gauge misc See Rx Instructions .Route Qty: 100 0RF Rx Instructions: As directed (DME) Dexcom G7 Sensor Device See Rx Instructions .ROUTE .MEDSUPPLY Qty: 1 Rx Instructions: As directed (DME) Intraoperative Neuromonitoring See Rx Instructions .Route .MEDSUPPLY Qty: 1 0RF Rx Instructions: As directed (DME) pen needle, diabetic [BD Ultra-Fine Micro Pen Needle] 32 gauge x 1/4 needle See Rx Instructions .ROUTE .MEDSUPPLY Qty: 100 3RF Rx Instructions: As directed (DME) insulin syringe-needle U-100 [BD Insulin Syringe Ultra-Fine] 1 mL 31 gauge x 5/16 syringe See Rx Instructions .ROUTE .COMPLEX Qty: 100 1RF Dose Instruction: DIRECTED Rx Instructions: DIRECTED epinephrine 0.3 mg/0.3 mL auto-injector See Rx Instructions .ROUTE .COMPLEX Rx Instructions: INJECT 0.3 INTRAMUSCULARLY ONCE DAILY NEEDED FOR ANAPHYLAXIS bupropion HCl 150 mg tablet extended release 24 hr 150 mg PO DAILY aspirin 81 mg tablet,delayed release (DR/EC) 81 mg PO DAILY gabapentin 100 mg capsule 200 mg PO TID ondansetron 4 mg tablet,disintegrating 4 mg PO Q6H PRN (Reason: nausea/emesis) aripiprazole 5 mg tablet 5 mg PO DAILY bumetanide 1 mg tablet 1 mg PO DAILY Qty: 30 0RF insulin lispro [Humalog KwikPen Insulin] 100 unit/mL insulin pen See Rx Instructions .ROUTE .COMPLEX Qty: 15 0RF Rx Instructions: Inject 6 units 3 times daily plus MEDIUM dose sliding scale. Less than/equal to 70 treat hypoglycemia per nursing protocol. 71-119 No additional insulin. 120-150 2 units. 151-200 4 units. 201-250 6 units. 251-300 8 units. 301-350 10 units. Greater than 351 12 units. isosorbide mononitrate 30 mg tablet extended release 24 hr 30 mg PO DAILY albuterol sulfate [Ventolin HFA] 90 mcg/actuation HFA aerosol inhaler 2 puff INHALATION Q6H PRN (Reason: Shortness Of Breath) sevelamer carbonate 800 mg tablet 1,600 mg PO TID naloxone 4 mg/actuation spray,non-aerosol See Rx Instructions .ROUTE .COMPLEX Rx Instructions: EMERGENCY USE ONLY. ADMINISTER 1 SPRAY (4MG) IN ONE NOSTRIL ONE TIME. MAY REPEAT IN ALTERNATING NOSTRILS EVERY 2-3 MINUTES UNTIL RESPONSIVE OR EMS ARRIVES. insulin glargine [Lantus Solostar U-100 Insulin] 100 unit/mL (3 mL) insulin pen 25 unit SUBCUT BID ferrous gluconate 324 mg (37.5 mg iron) tablet 324 mg PO BID Qty: 60 0RF clonidine 0.2 mg/24 hr patch weekly 1 patch topical Q7D amlodipine 10 mg tablet 10 mg PO DAILY morphine 15 mg tablet 15 mg PO Q8H PRN (Reason: Pain) hydralazine 100 mg tablet 100 mg PO Q8H carvedilol 12.5 mg Tablet 12.5 mg PO BID Qty: 60 1RF Lokelma 5 gram powder in packet 10 g PO DAILY Qty: 60 0RF Discharge Orders: Discharge ED (Routine); Ordered 09/25/25 Ordered By: Lázaro Agudelo Referrals: [facility] [Primary Care Provider, Family Practice] Patient Instructions: Patient Portal & Penny Instructions Activity Restrictions/Additional Instructions: Discharge Instructions You are being discharged from the hospital today. You were admitted because you missed dialysis appointments, which caused your potassium level to become dangerously high. Your potassium is now at a safer level, and you are stable to go home. Your Dialysis Appointments - You must attend your scheduled dialysis appointment on Saturday or Saturday. Missing dialysis can cause serious problems, including dangerous levels of potassium and fluid buildup in your body. - If you cannot make your appointment, call your dialysis center immediately to reschedule. - Continue attending all future dialysis sessions as scheduled by your dialysis team. Your Medications - Continue taking all your prescribed medications exactly as directed. - Avoid [id number] pain medications like ibuprofen, naproxen, or aspirin unless your doctor specifically tells you to take them. These can harm your remaining kidney function. - Some medications need special dosing because of your kidney disease. Do not adjust doses on your own. - If you need pain relief, talk to your doctor about safe options. Acetaminophen (Tylenol) is usually safer for your kidneys than other pain medications. Diet and Fluid Restrictions - Limit salt to less than 2.3 grams per day (about 1 teaspoon). Avoid adding salt to food and stay away from processed or canned foods. - Limit fluids to 1 to 1.5 liters (about 4 to 6 cups) per day to prevent fluid buildup between dialysis sessions. - Watch your potassium intake. Avoid high-potassium foods like bananas, oranges, tomatoes, potatoes, and beans. Your potassium should stay below 3 grams per day. - Eat enough protein (about 1.0 to 1.2 grams per kilogram of your body weight daily) to maintain your strength. Your Oxygen - Continue using your supplemental oxygen at 2 to 3 liters as you have been doing. This helps you breathe more comfortably. - Keep your oxygen equipment clean and in good working order. When to Return to the Emergency Department Come back to the emergency department or call 911 if you experience: - Chest pain or pressure - Severe shortness of breath that is worse than usual - Swelling in your legs, ankles, or face that is new or getting worse - Confusion or difficulty thinking clearly - Nausea and vomiting that won't stop - Muscle weakness or irregular heartbeat - Fever (temperature above 100.4?F or 38?C) - Any other symptoms that worry you Follow-Up Care - Attend your dialysis appointment on Saturday or Saturday as scheduled. - Follow up with your primary care doctor or kidney doctor as recommended. - If you have questions or concerns before your next appointment, call your dialysis center or doctor's office. Important Reminders - Missing dialysis can be life-threatening. Your body depends on dialysis to remove waste and extra fluid. - Take care of your dialysis access site (fistula, graft, or catheter). Keep it clean and watch for signs of infection like redness, warmth, or drainage. - Stay up to date with your vaccinations, including hepatitis B, pneumonia, COVID-19, and flu shots. If you have any questions about these instructions, please ask before you leave the hospital. Print Language: Omani Coding Level of Care Code ED Color Separation Photographer for Chg Fwd Heart Score HEART Score Components History: Slightly Suspicous EKG: Non-specific Changes Age: Less than 45 yrs Risk Factors: >/=3 Risk Factors Troponin: Baseline Trop >45 ng/L HEART Score RESULT HEART Score: 5 Documented by User: Chadd Velazquez DO 09/26/25 17:05 HPI - Chest Pain General: Chief Complaint: Chest Pain Stated Complaint: chest pain Related Data Home Medications ?Medication ?Instructions ?Recorded ?Confirmed blood-glucose sensor ([employer] G7 #1 ea 10/21/23 09/18/25 Sensor device) bupropion HCl 150 mg 24 hr tablet, 150 mg PO DAILY 11/06/24 09/18/25 extended release epinephrine 0.3 mg/0.3 mL See Rx Instructions .Route .COMPLEX 11/06/24 09/18/25 injection, auto-injector aripiprazole 5 mg tablet 5 mg PO DAILY 04/12/25 09/18/25 aspirin 81 mg tablet,delayed 81 mg PO DAILY 04/12/25 09/18/25 release gabapentin 100 mg capsule 200 mg PO TID 04/12/25 09/18/25 ondansetron 4 mg disintegrating 4 mg PO Q6H PRN nausea/emesis 04/12/25 09/18/25 tablet albuterol sulfate 90 mcg/actuation 2 puff inhalation Q6H PRN 06/15/25 09/18/25 aerosol inhaler (Ventolin HFA) Shortness Of Breath insulin glargine 100 unit/mL (3 25 unit SUBCUT BID 06/15/25 09/18/25 mL) subcutaneous pen (Lantus Solostar U-100 Insulin) isosorbide mononitrate 30 mg 30 mg PO DAILY 06/15/25 09/18/25 tablet,extended release 24 hr naloxone 4 mg/actuation nasal spray See Rx Instructions .Route .COMPLEX 06/15/25 09/18/25 sevelamer carbonate 800 mg tablet 1,600 mg PO TID 06/15/25 09/18/25 amlodipine 10 mg tablet 10 mg PO DAILY 09/18/25 09/18/25 clonidine 0.2 mg/24 hr weekly 1 patch topical Q7D 09/18/25 09/18/25 transdermal patch hydralazine 100 mg tablet 100 mg PO Q8H 09/18/25 09/18/25 morphine 15 mg immediate release 15 mg PO Q8H PRN Pain 09/18/25 09/18/25 tablet Previous Rx's ?Medication ?Instructions ?Recorded Intraoperative Neuromonitoring #1 ea 08/22/22 insulin syringe-needle U-100 1 mL #100 ea 06/27/23 31 gauge x 5/16 (BD Insulin Syringe Ultra-Fine) pen needle, diabetic 32 gauge x #100 ea 06/27/23 1/4 (BD Ultra-Fine Micro Pen Needle) blood sugar diagnostic (True #100 ea 10/04/23 Metrix Glucose Test Strip) blood-glucose meter (True Metrix #1 ea 10/04/23 Air Glucose Meter kit) lancets 31 gauge #100 ea 10/04/23 bumetanide 1 mg tablet 1 mg PO DAILY #30 tabs 04/14/25 insulin lispro 100 unit/mL See Rx Instructions .Route 04/14/25 subcutaneous pen (Humalog KwikPen .COMPLEX #15 mL (U-100) Insulin) ferrous gluconate 324 mg (37.5 mg 324 mg PO BID #60 tabs 06/18/25 iron) tablet carvedilol 12.5 mg tablet 12.5 mg PO BID #60 tabs 09/19/25 sodium zirconium cyclosilicate 5 10 g PO DAILY #60 ea 09/19/25 gram oral powder packet (Lokelma) Allergies Allergy/AdvReac Type Severity Reaction Status Date / Time bee venom protein (honey bee) Allergy Unknown Verified 08/17/25 07:40 lisinopril Allergy Unknown Verified 08/17/25 07:40 PFSH ED PFSH: Medical History Hypertensive urgency End stage renal disease on dialysis due to type 1 diabetes mellitus Chronic left-sided low back pain with left-sided sciatica Type 1 diabetes End stage renal disease on dialysis Opiate dependence Other stimulant abuse, uncomplicated Waking at night short of breath Snoring Hypersomnia Insomnia Noncompliance w/medication treatment due to intermit use of medication Schizophrenia Methamphetamine abuse Uncontrolled hypertension Family History Other CAD (coronary artery disease) Hypertension Stroke Social History Smoking and tobacco/nicotine status: current every day tobacco/nicotine user Alcohol intake: former Substance/Drug Use: former Date of last use: Amphetamines more than 62 days ago Caregiver/support person: Yes Lives independently: Yes Household members: other Current occupation: [employer] Course Vital Signs: Vital signs: Vital Signs Temperature 98.1 F 09/25/25 16:46 Pulse Rate 86 09/25/25 21:37 Respiratory Rate 17 09/25/25 19:02 Blood Pressure 176/88 09/25/25 21:37 Pulse Oximetry 95 09/25/25 21:37 Oxygen Delivery Me thod Room Air 09/25/25 19:02 Oxygen Flow Rate 3 09/25/25 18:00 MDM - Chest Pain Medical Decision Making Patient brought in by medics for continued left chest pain he was admitted here a week ago for similar chest pain but ultimately required the admission for emergent dialysis with potassium of 6.8. He missed dialysis again today, chest pain has been going on still and presented as instructed by his doctor for evaluation of recurrent hyperkalemia. His vitals have been stable for him, he is chronically hypertensive and he states that he also did not take his blood pressure medications this evening. Chronically is on 2 to 4 L of oxygen has not required any more here in the ED. Chest x-ray showing cardiomegaly worsening effusion, his troponin is chronically elevated and is 283 today with baseline but there is negative delta. BNP significant elevated as well which is also chronic. His potassium today is 5.4, creatinine elevated as would be expected with him missing his dialysis, he is Saturday and his next appointment would be on Saturday. I spoke to hospitalist in regards to admission for dialysis but again not likely necessary at this time secondary to potassium 5.4. Instead encouraged him to follow-up on Saturday for dialysis and he will return if he gets worse. I spoke to Dr. Velazquez about this plan who also agrees with outpatient as opposed to emergent dialysis admission at this time. His previous hospital workup was reviewed in its entirety as well as his previous cardiac interventions, no need for cardiac consultation or further workup at this point of time. This patient was originally seen by Mr. Magnus PA-C. I agree with his history, evaluation and management. Lab Data 09/25/25 16:50 09/25/25 16:50 Radiology Impressions Chest X-Ray 09/25/25 16:45 IMPRESSION: Worsening cardiomegaly on this patient with known pericardial effusion, on the above referenced CT scan. Laboratory Results WBC 6.85 10^3/uL (3.29-11.43) 09/25/25 16:50 RBC 3.10 10^6/uL (3.85-5.65) L 09/25/25 16:50 Hgb 9.50 g/dL (11.27-16.99) L 09/25/25 16:50 Hct 28.0 % (37-53) L 09/25/25 16:50 MCV 90.3 fl (82-101) 09/25/25 16:50 MCH 30.6 pg (27-33) 09/25/25 16:50 MCHC 33.9 g/dL (30-55) 09/25/25 16:50 RDW 14.6 % (12.1-15.1) 09/25/25 16:50 Plt Count 296 10^3/cmm (157-399) 09/25/25 16:50 MPV 9.7 fL (7.4-10.4) 09/25/25 16:50 Neut % (Auto) 75.8 % 09/25/25 16:50 Lymph % (Auto) 12.4 % 09/25/25 16:50 [place] % (Auto) 9.2 % 09/25/25 16:50 Eos % (Auto) 1.0 % 09/25/25 16:50 Baso % (Auto) 1.3 % 09/25/25 16:50 Neut # (Auto) 5.19 10^3/uL (1.8-7.7) 09/25/25 16:50 Lymph # (Auto) 0.9 10^3/uL (0.8-4.8) 09/25/25 16:50 [place] # (Auto) 0.6 10^3/uL (0.2-0.9) 09/25/25 16:50 Eos # (Auto) 0.1 10^3/uL (0.0-0.8) 09/25/25 16:50 Baso # (Auto) 0.1 10^3/uL (0.0-0.1) 09/25/25 16:50 Nucleated RBC % (auto) 0 % 09/25/25 16:50 Nucleated RBCs # 0.0 /100WBC 09/25/25 16:50 Sodium 135 mmol/L (136-145) L 09/25/25 16:50 Potassium 5.4 mmol/L (3.5-5.1) H 09/25/25 16:50 Chloride 87 mmol/L (98-107) L 09/25/25 16:50 Carbon Dioxide 29 mmol/L (22-29) 09/25/25 16:50 Anion Gap 24.4 (5-19) H 09/25/25 16:50 BUN 32 mg/dL (6-20) H 09/25/25 16:50 Creatinine 8.2 mg/dL (0.7-1.2) H* 09/25/25 16:50 GFR Calculation 7.5 mL/min (90-130) L 09/25/25 16:50 Glucose 109 mg/dL (65-115) 09/25/25 16:50 Calculated Osmolality 287 mOsm/kg (285-295) 09/25/25 16:50 Calcium 9.4 mg/dL (8.5-10.5) 09/25/25 16:50 Magnesium 2.5 mg/dL (1.7-2.3) H 09/25/25 16:50 Total Bilirubin 0.7 mg/dL (0.15-1.2) 09/25/25 16:50 AST 17 U/L (0-40) 09/25/25 16:50 ALT 11 U/L (0-41) 09/25/25 16:50 Alkaline Phosphatase 90 U/L (40-130) 09/25/25 16:50 Troponin T Baseline 283 ng/L (0-15) H* 09/25/25 16:50 Troponin T 60 Minute 278.7 ng/L (0-15) H 09/25/25 18:03 Delta Troponin T -4.3 ABS# (0-10) L 09/25/25 18:03 NT-Pro-B Natriuret Pep 95497 pg/mL (0-125) H 09/25/25 16:50 Total Protein 7.3 g/dL (6.6-8.7) 09/25/25 16:50 Albumin 4.4 g/dL (3.5-5.2) 09/25/25 16:50 Globulin 2.9 g/dL (1.3-4.6) 09/25/25 16:50 Discharge Plan Discharge Patient Disposition: Home Clinical Impression: ESRD on hemodialysis Chest pain Qualifiers: Chest pain type: unspecified Qualified Code(s): R07.9 - Chest pain, unspecified Condition: Stable Prescriptions: No Action (DME) blood-glucose meter [True Metrix Air Glucose Meter] Kit See Rx Instructions .Route Qty: 1 0RF Rx Instructions: As directed (DME) True Metrix Glucose Test Strip Strip See Rx Instructions .Route Qty: 100 0RF Rx Instructions: As directed ([facility]) lancets 31 gauge misc See Rx Instructions .Route Qty: 100 0RF Rx Instructions: As directed ([facility]) Dexcom G7 Sensor Device See Rx Instructions .ROUTE .MEDSUPPLY Qty: 1 Rx Instructions: As directed ([facility]) Intraoperative Neuromonitoring See Rx Instructions .Route .MEDSUPPLY Qty: 1 0RF Rx Instructions: As directed ([facility]) pen needle, diabetic [BD Ultra-Fine Micro Pen Needle] 32 gauge x 1/4 needle See Rx Instructions .ROUTE .MEDSUPPLY Qty: 100 3RF Rx Instructions: As directed ([facility]) insulin syringe-needle U-100 [BD Insulin Syringe Ultra-Fine] 1 mL 31 gauge x 5/16 syringe See Rx Instructions .ROUTE .COMPLEX Qty: 100 1RF Dose Instruction: DIRECTED Rx Instructions: DIRECTED epinephrine 0.3 mg/0.3 mL auto-injector See Rx Instructions .ROUTE .COMPLEX Rx Instructions: INJECT 0.3 INTRAMUSCULARLY ONCE DAILY NEEDED FOR ANAPHYLAXIS bupropion HCl 150 mg tablet extended release 24 hr 150 mg PO DAILY aspirin 81 mg tablet,delayed release (DR/EC) 81 mg PO DAILY gabapentin 100 mg capsule 200 mg PO TID ondansetron 4 mg tablet,disintegrating 4 mg PO Q6H PRN (Reason: nausea/emesis) aripiprazole 5 mg tablet 5 mg PO DAILY bumetanide 1 mg tablet 1 mg PO DAILY Qty: 30 0RF insulin lispro [Humalog KwikPen Insulin] 100 unit/mL insulin pen See Rx Instructions .ROUTE .COMPLEX Qty: 15 0RF Rx Instructions: Inject 6 units 3 times daily plus MEDIUM dose sliding scale. Less than/equal to 70 treat hypoglycemia per nursing protocol. 71-119 No additional insulin. 120-150 2 units. 151-200 4 units. 201-250 6 units. 251-300 8 units. 301-350 10 units. Greater than 351 12 units. isosorbide mononitrate 30 mg tablet extended release 24 hr 30 mg PO DAILY albuterol sulfate [Ventolin HFA] 90 mcg/actuation HFA aerosol inhaler 2 puff INHALATION Q6H PRN (Reason: Shortness Of Breath) sevelamer carbonate 800 mg tablet 1,600 mg PO TID naloxone 4 mg/actuation spray,non-aerosol See Rx Instructions .ROUTE .COMPLEX Rx Instructions: EMERGENCY USE ONLY. ADMINISTER 1 SPRAY (4MG) IN ONE NOSTRIL ONE TIME. MAY REPEAT IN ALTERNATING NOSTRILS EVERY 2-3 MINUTES UNTIL RESPONSIVE OR EMS ARRIVES. insulin glargine [Lantus Solostar U-100 Insulin] 100 unit/mL (3 mL) insulin pen 25 unit SUBCUT BID ferrous gluconate 324 mg (37.5 mg iron) tablet 324 mg PO BID Qty: 60 0RF clonidine 0.2 mg/24 hr patch weekly 1 patch topical Q7D amlodipine 10 mg tablet 10 mg PO DAILY morphine 15 mg tablet 15 mg PO Q8H PRN (Reason: Pain) hydralazine 100 mg tablet 100 mg PO Q8H carvedilol 12.5 mg Tablet 12.5 mg PO BID Qty: 60 1RF Lokelma 5 gram powder in packet 10 g PO DAILY Qty: 60 0RF Discharge Orders: Discharge ED (Routine); Ordered 09/25/25 Ordered By: Lázaro Agudelo Referrals: [facility]con [Primary Care Provider, Family Practice] Patient Instructions: Patient Portal & Penny Instructions Activity Restrictions/Additional Instructions: Discharge Instructions You are being discharged from the hospital today. You were admitted because you missed dialysis appointments, which caused your potassium level to become dangerously high. Your potassium is now at a safer level, and you are stable to go home. Your Dialysis Appointments - You must attend your scheduled dialysis appointment on Saturday or Saturday. Missing dialysis can cause serious problems, including dangerous levels of potassium and fluid buildup in your body. - If you cannot make your appointment, call your dialysis center immediately to reschedule. - Continue attending all future dialysis sessions as scheduled by your dialysis team. Your Medications - Continue taking all your prescribed medications exactly as directed. - Avoid [id number] pain medications like ibuprofen, naproxen, or aspirin unless your doctor specifically tells you to take them. These can harm your remaining kidney function. - Some medications need special dosing because of your kidney disease. Do not adjust doses on your own. - If you need pain relief, talk to your doctor about safe options. Acetaminophen (Tylenol) is usually safer for your kidneys than other pain medications. Diet and Fluid Restrictions - Limit salt to less than 2.3 grams per day (about 1 teaspoon). Avoid adding salt to food and stay away from processed or canned foods. - Limit fluids to 1 to 1.5 liters (about 4 to 6 cups) per day to prevent fluid buildup between dialysis sessions. - Watch your potassium intake. Avoid high-potassium foods like bananas, oranges, tomatoes, potatoes, and beans. Your potassium should stay below 3 grams per day. - Eat enough protein (about 1.0 to 1.2 grams per kilogram of your body weight daily) to maintain your strength. Your Oxygen - Continue using your supplemental oxygen at 2 to 3 liters as you have been doing. This helps you breathe more comfortably. - Keep your oxygen equipment clean and in good working order. When to Return to the Emergency Department Come back to the emergency department or call 911 if you experience: - Chest pain or pressure - Severe shortness of breath that is worse than usual - Swelling in your legs, ankles, or face that is new or getting worse - Confusion or difficulty thinking clearly - Nausea and vomiting that won't stop - Muscle weakness or irregular heartbeat - Fever (temperature above 100.4?F or 38?C) - Any other symptoms that worry you Follow-Up Care - Attend your dialysis appointment on Saturday or Saturday as scheduled. - Follow up with your primary care doctor or kidney doctor as recommended. - If you have questions or concerns before your next appointment, call your dialysis center or doctor's office. Important Reminders - Missing dialysis can be life-threatening. Your body depends on dialysis to remove waste and extra fluid. - Take care of your dialysis access site (fistula, graft, or catheter). Keep it clean and watch for signs of infection like redness, warmth, or drainage. - Stay up to date with your vaccinations, including hepatitis B, pneumonia, COVID-19, and flu shots. If you have any questions about these instructions, please ask before you leave the hospital. Print Language: Omani Coding Level of Care Code ED Color Separation Photographer for Bessie Gaxiola Heart Score HEART Score RESULT HEART Score: 5
== END 2025-09-25 21:38 | disposition home or self-care (01) ==
PROVIDERS: Emergency Provider Physician Assistant; PCP Family Medicine
DX: R07.9 Chest pain, unspecified (principal); E10.22 Type 1 diabetes mellitus with diabetic chronic kidney disease; I12.0 Hypertensive chronic kidney disease with stage 5 chronic kidney disease or end stage renal disease; N18.6 End stage renal disease; Z99.2 Dependence on renal dialysis; Z72.0 Tobacco use; Z79.82 Long term (current) use of aspirin; Z79.4 Long term (current) use of insulin
CPT/HCPCS: 36415; 71045; 80053; 83735; 83880; 84484; 85025; 93005; 96374; 96375; 96376; 99285; J0360; J1171; J2405; J9999